=== PATIENT | female | born 1990 | race Caucasian/White ===

== ENCOUNTER 2018-02-13 23:17 | Emergency (ER) | payer SELFPAY ==
--- NOTE | 2018-02-14 00:07 | EDPHYS ---
Physician Documentation [facility] Name: Suraj Fuentes Age: 27 yrs Sex: Female : 1990 Arrival Date: 02/13/2018 Time: 23:19 Bed 17 Private MD: ED Physician Doug Mendiola HPI: 02/14 00:33 This 27 yrs old Female presents to ER via Ambulatory with complaints of snw Abdominal Pain, Nausea/Vomiting. 00:33 The patient presents with abdominal pain. Onset: The symptoms/episode began/occurred snw suddenly. The symptoms do not radiate. Associated signs and symptoms: Pertinent positives: sore nipples, missed menstrual cycle, just had control removed.. The symptoms are described as crampy. Modifying factors: The symptoms are alleviated by nothing. Severity of pain: At its worst the pain was mild moderate. The patient has experienced similar episodes in the past. It is unknown whether or not the patient has recently seen a physician. 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 - Social history:: Smoking status: Patient/guardian denies using tobacco, Patient uses alcohol, occasionally. Patient/guardian denies using street drugs. ROS: 02/14 00:31 Constitutional: Negative for fever, chills, and weight loss, Eyes: Negative for injury, snw pain, redness, and discharge, ENT: Negative for injury, pain, and discharge, Neck: Negative for injury, pain, and swelling, Cardiovascular: Negative for chest pain, palpitations, and edema, Respiratory: Negative for shortness of breath, cough, wheezing, and pleuritic chest pain, Back: Negative for injury and pain, : Negative for injury, bleeding, discharge, and swelling, MS/Extremity: Negative for injury and deformity, Skin: Negative for injury, rash, and discoloration, Neuro: Negative for headache, weakness, numbness, tingling, and seizure. Abdomen/GI: Positive for nausea, vomiting, abdominal cramps, sore nipples. Exam: 00:30 Constitutional: This is a well developed, well nourished patient who is awake, alert, snw and in no acute distress. Head/Face: Normocephalic, atraumatic. Eyes: Pupils equal round and reactive to light, extra-ocular motions intact. Lids and lashes normal. Conjunctiva and sclera are non-icteric and not injected. Cornea within normal limits. Periorbital areas with no swelling, redness, or edema. ENT: Nares patent. No nasal discharge, no septal abnormalities noted. Tympanic membranes are normal and external auditory canals are clear. Oropharynx with no redness, swelling, or masses, exudates, or evidence of obstruction, uvula midline. Mucous membranes moist. Neck: Trachea midline, no thyromegaly or masses palpated, and no cervical lymphadenopathy. Supple, full range of motion without nuchal rigidity, or vertebral point tenderness. No Meningismus. Chest/axilla: Normal chest wall appearance and motion. Nontender with no deformity. No lesions are appreciated. Cardiovascular: Regular rate and rhythm with a normal S1 and S2. No gallops, murmurs, or rubs. Normal PMI, no JVD. No pulse deficits. Respiratory: Lungs have equal breath sounds bilaterally, clear to auscultation and percussion. No rales, rhonchi or wheezes noted. No increased work of breathing, no retractions or nasal flaring. Abdomen/GI: Soft, non-tender, with normal bowel sounds. No distension or tympany. No guarding or rebound. No evidence of tenderness throughout. Back: No spinal tenderness. No costovertebral tenderness. Full range of motion. Skin: Warm, dry with normal turgor. Normal color with no rashes, no lesions, and no evidence of cellulitis. MS/ Extremity: Pulses equal, no cyanosis. Neurovascular intact. Full, normal range of motion. Neuro: Awake and alert, GCS 15, oriented to person, place, time, and situation. Cranial nerves II-XII grossly intact. Motor strength 5/5 in all extremities. Sensory grossly intact. Cerebellar exam normal. Normal gait. Vital Signs: 02/13 23:52 BP 127 / 76; Pulse 73; Resp 18 S; Temp 97.5(O); Pulse Ox 99% on R/A; Weight 79.38 kg bb (R); Height 5 ft. 2 in. (157.48 cm) (R); Pain 7/10; 23:52 Body Mass Index 32.01 (79.38 kg, 157.48 cm) bb MDM: 23:44 Patient medically screened. snw 02/14 00:32 Data reviewed: vital signs, nurses notes. Data interpreted: Pulse oximetry: on room air snw is 99 %. Interpretation: normal. Counseling: I had a detailed discussion with the patient and/or guardian regarding: the historical points, exam findings, and any diagnostic results supporting the discharge/admit diagnosis, lab results, the need for outpatient follow up, to return to the emergency department if symptoms worsen or persist or if there are any questions or concerns that arise at home. 02/13 23:43 Order name: Urine Culture snw 02/13 23:43 Order name: Urine Microscopic Only snw 02/13 23:51 Order name: Urine Dipstick--Ancillary (enter results) [facility] 02/13 23:51 Order name: Urine --Ancillary (enter results) [facility] 02/14 00:16 Order name: Urine --Ancillary; Complete Time: 00:26 EDMS 02/14 00:16 Order name: Urine Dipstick-Ancillary; Complete Time: 00:26 EDMS 02/13 23:43 Order name: Urine Test (obtain specimen); Complete Time: 23:49 snw 02/13 23:43 Order name: Urine Dipstick-Ancillary (obtain specimen); Complete Time: 23:49 snw 02/14 00:29 Order name: Urine Microscopic Only; Complete Time: 00:30 EDMS Administered Medications: No medications were administered Disposition: 06:18 Co-signature as Attending Physician, Doug Mendiola MD. Disposition: 02/14/18 00:07 Discharged to Home. Impression: Person with feared health complaint in whom no diagnosis is made. - Condition is Stable. - Discharge Instructions: Nausea, Adult. - Prescriptions for Vitamin 27- 0.8 mg Oral Tablet - take 1 tablet by ORAL route once daily; 30 tablet. - Medication Reconciliation Form, Thank You Letter, Antibiotic Education, Prescription Opioid Use form. - Follow up: Private Physician; When: 2 - 3 days; Reason: Recheck today's complaints, Continuance of care, Re-evaluation by your physician. Follow up: Emergency Department; When: As needed; Reason: Worsening of condition. Signatures: Dispatcher [employer] Inocencia Zafar FNP-C VALET PARKING ATTENDANT-Csnw [facility] S[facility], RN RN Doug Brantley MD MD
--- NOTE | 2018-02-14 00:07 | ER ---
Nurse's Notes [facility] Name: Suraj Fuentes Age: 27 yrs Sex: Female : 1990 Arrival Date: 02/13/2018 Time: 23:19 Bed 17 Private MD: Diagnosis: Person with feared health complaint in whom no diagnosis is made Presentation: 02/13 23:31 Presenting complaint: Patient states: she is having some lower abdominal pain and bb vomited twice this morning she has been trying to get and has noticed she is having breast tenderness as well LMP was 01/18/2018. Transition of care: patient was not received from another setting of care. Onset of symptoms was February 13, 2018. Care prior to arrival: None. 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 - Social history:: Smoking status: Patient/guardian denies using tobacco, Patient uses alcohol, occasionally. Patient/guardian denies using street drugs. Screenin:40 Abuse screen: Denies threats or abuse. Nutritional screening: No deficits noted. bb Tuberculosis screening: No symptoms or risk factors identified. Fall Risk None identified. Assessment: 23:40 General: Appears in no apparent distress. Behavior is calm, cooperative. Pain: bb Complains of pain in abdomen Pain currently is 7 out of 10 on a pain scale. Neuro: Level of Consciousness is awake, alert, obeys commands, Oriented to person, place, time, situation. Respiratory: No deficits noted. GI: Abdomen is round Bowel sounds present X 4 quads. Abd is soft X 4 quads Reports upper abdominal pain, nausea, vomiting. Derm: Skin is pink, warm \T\ dry. Musculoskeletal: Circulation, motion, and sensation intact. 02/14 00:33 Reassessment: No changes from previously documented assessment. pt verbalized bb understanding of and agrees to plan of care discharge instructions given pt ambulated with steady gait to exit accompanied by spouse. 00:34 Reassessment: Patient appears in no apparent distress at this time. Patient and/or jd3 family updated on plan of care and expected duration. Pain level reassessed. Patient is alert, oriented x 3, equal unlabored respirations, skin warm/dry/pink. pt reported understanding of discharge instructions, even and steady gait upon discharge. Vital Signs: 02/13 23:52 BP 127 / 76; Pulse 73; Resp 18 S; Temp 97.5(O); Pulse Ox 99% on R/A; Weight 79.38 kg bb (R); Height 5 ft. 2 in. (157.48 cm) (R); Pain 7/10; 23:52 Body Mass Index 32.01 (79.38 kg, 157.48 cm) bb ED Course: 23:19 Patient arrived in ED. am2 23:40 Patient has correct armband on for positive identification. Bed in low position. Call bb light in reach. Pulse ox on. NIBP on. 23:40 No provider procedures requiring assistance completed. Patient did not have IV access bb during this emergency room visit. 23:43 Inocencia Salamanca [facility] snw 23:43 Doug Mendiola MD is Attending Physician. snw 23:51 Triage completed. bb 23:52 Arm band placed on Patient placed in an exam room, on a stretcher, on pulse oximetry. bb 02/14 00:33 Eladio Rivas, RN is Primary Nurse. jd3 Administered Medications: No medications were administered Outcome: 00:07 Discharge ordered by . snw 00:34 Discharged to home ambulatory, with family. jd3 00:34 Condition: stable 00:34 Discharge instructions given to patient, friend, Instructed on discharge instructions, follow up and referral plans. medication usage, Demonstrated understanding of instructions, follow-up care, medications, Prescriptions given X 1. 00:34 Discharged to home ambulatory, with family. bb 00:34 Condition: stable 00:34 Discharge instructions given to patient, Instructed on discharge instructions, follow up and referral plans. medication usage, Demonstrated understanding of instructions, follow-up care, medications, Prescriptions given X 1, pt states she will follow up with her physician in [facility]. 00:35 Patient left the ED. bb Signatures: Inocencia Salamanca FNP-C COMPRESSOR REPAIRER-Csnw [facility], RN RN bb Sharlene Mello amEladio Souza, RN RN jd3
[2018-02-14 00:16] LABS: Urine Blood NEGATIVE (NEG); Urine Glucose NEGATIVE (NEG); Urine Protein NEGATIVE (NEG); Urine Specific Gravity 1.015 (1.005-1.030); Urine pH 7.5 (5.0-7.0)
[2018-02-14 00:28] LABS: Urine Bacteria <20 /HPF (<20); Urine Culture Reflex Order NOT NEEDED; Urine RBC NONE SEEN /HPF (NONE SEEN)
[2018-02-14 00:39] VITALS: BP 127/76; TEMP 97.5; O2SAT 99
== END 2018-02-14 00:35 | disposition home or self-care (01) ==
LOC: ER 23:17
DX: Z71.1 Person with feared health complaint in whom no diagnosis is made (principal); Z88.6 Allergy status to analgesic agent; Z91.018 Allergy to other foods
CPT/HCPCS: 81003; 81015; 81025; 87086; 87088; 99283

== ENCOUNTER 2018-03-29 23:38 | Emergency (ER) | payer SELFPAY ==
[2018-03-30] MEDS ORDERED: DICYCLOMINE HCL 10 MG CAP ONE (00:51)
[2018-03-30] MEDS ORDERED: ONDANSETRON 4 MG/2 ML VIAL ONE (00:52)
[2018-03-30 00:53] LABS: Absolute Monocytes 0.4 K/uL (0.1-1.3); Absolute Neutrophil 8.9 K/uL (1.8-8.0); Basophils % 0.2 % (0-1.3); Eosinophils % 0.3 % (0-4.4); Hematocrit 43.5 % (36.0-45.0); Lymphocytes % 9.5 % (15.3-44.8); MCH 30.4 pg (27.0-35.0); MCV 87.2 fL (80-100); MPV 8.1 fL (7.6-11.3); Monocytes % 3.7 % (3.3-12.3); RBC Red Blood Cell Count 4.99 M/uL (3.86-4.86)
[2018-03-30 01:03] LABS: BUN Blood Urea Nitrogen 16 mg/dL (6-20); Bicarbonate 25 mEq/L (21-31); Glucose Level 117 mg/dL (65-120); Potassium 3.7 mEq/L (3.6-5.0); Sodium Level 140 mEq/L (135-145)
--- NOTE | 2018-03-30 01:35 | ER ---
Nurse's Notes [facility] Name: Suraj Fuentes Age: 27 yrs Sex: Female : 1990 Arrival Date: 03/29/2018 Time: 23:43 Bed 20 Private MD: Diagnosis: Dysmenorrhea, unspecified Presentation: 03/29 23:59 Presenting complaint: Patient states: that this am she woke up with blood all over her underclothes. She is now having lower abd pain and cramping, nausea and vomiting. Continues to have vaginal bleeding. Transition of care: patient was not received from another setting of care. Onset of symptoms was March 30, 2018. Initial Sepsis Screen:. Care prior to arrival: None. 23:59 Method Of Arrival: Ambulatory 23:59 Acuity: SHAW 3 03/30 00:44 Initial Sepsis Screen: Does the patient meet any 2 criteria? No. Patient's initial jd3 sepsis screen is negative. Does the patient have a suspected source of infection? No. Patient's initial sepsis screen is negative. 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 - Social history:: Smoking status: Patient/guardian denies using tobacco. Screenin:43 Abuse screen: Denies threats or abuse. Nutritional screening: No deficits noted. jd3 Tuberculosis screening: No symptoms or risk factors identified. Fall Risk IV access (20 points). Mental Status- Oriented to own ability (0 pts). Total Chaidez Fall Scale indicates No Risk (0-24 pts). Assessment: 00:30 General: Appears in no apparent distress. uncomfortable, Behavior is calm, cooperative, jd3 appropriate for age. Pain: Complains of pain in suprapubic area Quality of pain is described as aching. Neuro: Level of Consciousness is awake, alert, obeys commands, Oriented to person, place, time, situation. Cardiovascular: Heart tones S1 S2 present Capillary refill < 3 seconds Patient's skin is warm and dry. Respiratory: Airway is patent Respiratory effort is even, unlabored, Respiratory pattern is regular, symmetrical, Breath sounds are clear bilaterally. GI: Abdomen is round Bowel sounds present X 4 quads. Abd is soft and non tender X 4 quads. Reports nausea, vomiting. : pt reports vaginal bleeding Reports vaginal bleeding that is heavy flow. EENT: No signs and/or symptoms were reported regarding the EENT system. Derm: Skin is intact, Skin is dry, Skin is normal, Skin temperature is warm. Musculoskeletal: Circulation, motion, and sensation intact. Range of motion: intact in all extremities. 01:06 Reassessment: Patient appears in no apparent distress at this time. No changes from [facility] previously documented assessment. Patient and/or family updated on plan of care and expected duration. Pain level reassessed. Patient is alert, oriented x 3, equal unlabored respirations, skin warm/dry/pink. 01:32 Reassessment: Patient appears in no apparent distress at this time. Patient and/or jd3 family updated on plan of care and expected duration. Pain level reassessed. Patient is alert, oriented x 3, equal unlabored respirations, skin warm/dry/pink. 01:50 Reassessment: Patient appears in no apparent distress at this time. Patient and/or jd3 family updated on plan of care and expected duration. Pain level reassessed. Patient is alert, oriented x 3, equal unlabored respirations, skin warm/dry/pink. pt reported understanding of discharge instructions, even and steady gait upon discharge. Vital Signs: 00:01 BP 123 / 82; Pulse 80; Resp 18; Temp 98.5(O); Pulse Ox 98% on R/A; Weight 77.11 kg (R); Height 5 ft. 2 in. (157.48 cm) (R); Pain 9/10; 01:05 BP 116 / 69; Pulse 67; Resp 18 S; Pulse Ox 97% on R/A; jd3 01:32 BP 116 / 69; Pulse 74; Resp 18 S; Pulse Ox 97% on R/A; jd3 00:01 Body Mass Index 31.09 (77.11 kg, 157.48 cm) ED Course: 03/29 23:43 Patient arrived in ED. do 23:48 Inocencia Salamanca [facility]C [facility] snw 23:48 Corbin Gross MD is Attending Physician. snw 03/30 00:00 Triage completed. fc 00:03 Arm band placed on Patient placed in an exam room, on a stretcher. 00:24 Eladio Rivas, RN is Primary Nurse. jd3 00:35 Inserted saline lock: 20 gauge in right antecubital area, using aseptic technique. jd3 Blood collected. 00:44 Patient has correct armband on for positive identification. Bed in low position. Call jd3 light in reach. Side rails up X2. Adult w/ patient. 01:49 No provider procedures requiring assistance completed. IV discontinued, intact, jd3 bleeding controlled, No redness/swelling at site. Pressure dressing applied. Administered Medications: 00:57 Drug: Zofran 4 mg Route: IVP; Site: right antecubital; jd3 01:51 Follow up: Response: No adverse reaction; Marked relief of symptoms jd3 00:58 Drug: Bentyl 20 mg Route: PO; jd3 01:51 Follow up: Response: No adverse reaction jd3 Outcome: 01:35 Discharge ordered by . snw 01:50 Discharged to home ambulatory, with family. jd3 01:50 Condition: stable 01:50 Discharge instructions given to patient, family, Instructed on discharge instructions, follow up and referral plans. medication usage, Demonstrated understanding of instructions, follow-up care, medications, Prescriptions given X 1. 01:51 Patient left the ED. jd3 Signatures: Inocencia Salamanca, RADIATOR REPAIRER-C RADIATOR REPAIRER-Csnw Gilma Brown RN RN Luly Cota Jonathon, RN RN jd3
--- NOTE | 2018-03-30 01:36 | EDPHYS ---
Physician Documentation [facility] Name: Suraj Fuentes Age: 27 yrs Sex: Female : 1990 Arrival Date: 03/29/2018 Time: 23:43 Bed 20 Private MD: ED Physician Corbin Gross HPI: 03/30 00:49 This 27 yrs old Female presents to ER via Ambulatory with complaints of snw Vaginal Bleeding, Abdominal Pain, Vomiting. 00:49 The patient presents with vaginal bleeding that is moderate, heavy. Onset: The snw symptoms/episode began/occurred last night. Modifying factors: The symptoms are alleviated by nothing. Associated signs and symptoms: Pertinent positives: cramping, vaginal bleeding. Severity of symptoms: At their worst the symptoms were moderate. The patient has not experienced similar symptoms in the past. The patient has not recently seen a physician. pt states she has regular menses but then states she skipped last month. 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 - Social history:: Smoking status: Patient/guardian denies using tobacco. ROS: 00:46 Constitutional: Negative for fever, chills, and weight loss, Eyes: Negative for injury, snw pain, redness, and discharge, ENT: Negative for injury, pain, and discharge, Neck: Negative for injury, pain, and swelling, Cardiovascular: Negative for chest pain, palpitations, and edema, Respiratory: Negative for shortness of breath, cough, wheezing, and pleuritic chest pain, Abdomen/GI: Positive for abdominal pain, nausea, denies vomiting, diarrhea, and constipation, : Negative for injury, bleeding, discharge, and swelling, MS/Extremity: Negative for injury and deformity, Skin: Negative for injury, rash, and discoloration, Neuro: Negative for headache, weakness, numbness, tingling, and seizure. 00:46 Back: Positive for radiated pain. Exam: 00:45 Constitutional: This is a well developed, well nourished patient who is awake, alert, snw and in no acute distress. Head/Face: Normocephalic, atraumatic. Eyes: Pupils equal round and reactive to light, extra-ocular motions intact. Lids and lashes normal. Conjunctiva and sclera are non-icteric and not injected. Cornea within normal limits. Periorbital areas with no swelling, redness, or edema. ENT: Nares patent. No nasal discharge, no septal abnormalities noted. Tympanic membranes are normal and external auditory canals are clear. Oropharynx with no redness, swelling, or masses, exudates, or evidence of obstruction, uvula midline. Mucous membranes moist. Neck: Trachea midline, no thyromegaly or masses palpated, and no cervical lymphadenopathy. Supple, full range of motion without nuchal rigidity, or vertebral point tenderness. No Meningismus. Chest/axilla: Normal chest wall appearance and motion. Nontender with no deformity. No lesions are appreciated. Cardiovascular: Regular rate and rhythm with a normal S1 and S2. No gallops, murmurs, or rubs. Normal PMI, no JVD. No pulse deficits. Respiratory: Lungs have equal breath sounds bilaterally, clear to auscultation and percussion. No rales, rhonchi or wheezes noted. No increased work of breathing, no retractions or nasal flaring. Skin: Warm, dry with normal turgor. Normal color with no rashes, no lesions, and no evidence of cellulitis. MS/ Extremity: Pulses equal, no cyanosis. Neurovascular intact. Full, normal range of motion. Neuro: Awake and alert, GCS 15, oriented to person, place, time, and situation. Cranial nerves II-XII grossly intact. Motor strength 5/5 in all extremities. Sensory grossly intact. Cerebellar exam normal. Normal gait. Psych: Awake, alert, with orientation to person, place and time. Behavior, mood, and affect are within normal limits. 00:45 Abdomen/GI: Inspection: obese Bowel sounds: hyperactive, Palpation: moderate abdominal tenderness, in all quadrants. 00:45 Back: Exam negative for acute changes. Vital Signs: 00:01 BP 123 / 82; Pulse 80; Resp 18; Temp 98.5(O); Pulse Ox 98% on R/A; Weight 77.11 kg (R); fc Height 5 ft. 2 in. (157.48 cm) (R); Pain 9/10; 01:05 BP 116 / 69; Pulse 67; Resp 18 S; Pulse Ox 97% on R/A; jd3 01:32 BP 116 / 69; Pulse 74; Resp 18 S; Pulse Ox 97% on R/A; jd3 00:01 Body Mass Index 31.09 (77.11 kg, 157.48 cm) fc MDM: 00:19 Patient medically screened. snw 01:38 Data reviewed: vital signs, nurses notes. Data interpreted: Pulse oximetry: on room air snw is 97 %. Interpretation: normal. Counseling: I had a detailed discussion with the patient and/or guardian regarding: the historical points, exam findings, and any diagnostic results supporting the discharge/admit diagnosis, the need for outpatient follow up, to return to the emergency department if symptoms worsen or persist or if there are any questions or concerns that arise at home. Special discussion: Based on the patient's Hx, exam, and Dx evaluation, there is no indication for emergent surgery or inpatient Tx. It is understood by the patient/guardian that if the Sx's persist or worsen they need to return immediately for re-evaluation. Based on the history and exam findings, there is no indication for further emergent testing or inpatient evaluation. I discussed with the patient/guardian the need to see the OB Gyne specialist for further evaluation of the symptoms. 03/30 00:19 Order name: Abo/rh Typing snw 03/30 00:19 Order name: Basic Metabolic Panel; Complete Time: 01:04 snw 03/30 00:19 Order name: CBC with Diff; Complete Time: 00:55 snw 03/30 00:19 Order name: IV Saline Lock; Complete Time: 00:40 snw 03/30 00:19 Order name: Labs collected and sent; Complete Time: 00:40 snw 03/30 00:19 Order name: NPO; Complete Time: 00:40 snw Administered Medications: 00:57 Drug: Zofran 4 mg Route: IVP; Site: right antecubital; jd3 01:51 Follow up: Response: No adverse reaction; Marked relief of symptoms jd3 00:58 Drug: Bentyl 20 mg Route: PO; jd3 01:51 Follow up: Response: No adverse reaction jd3 Disposition: 05:22 Co-signature as Attending Physician, Corbin Gross MD. pkluis carlos Disposition: 03/30/18 01:35 Discharged to Home. Impression: Dysmenorrhea, unspecified. - Condition is Stable. - Discharge Instructions: Dysmenorrhea, Menorrhagia. - Prescriptions for Zofran 4 mg Oral Tablet - take 1 tablet by ORAL route every 6 hours As needed; 20 tablet. - Medication Reconciliation Form, Thank You Letter, Antibiotic Education, Prescription Opioid Use form. - Follow up: Private Physician; When: 2 - 3 days; Reason: Recheck today's complaints, Continuance of care, Re-evaluation by your physician. Follow up: Emergency Department; When: As needed; Reason: Worsening of condition. Signatures: Dispatcher [employer] EDMS Corbin Gross MD MD pkInocencia Merrill, ELIZ-C ACID PATROLLER-Magdalenow Gilma Brown, RN RN Eladio Calixto RN RN jd3 Corrections: (The following items were deleted from the chart) 01:51 01:35 03/30/2018 01:35 Discharged to Home. Impression: Dysmenorrhea, unspecified. jd3 Condition is Stable. Forms are Medication Reconciliation Form, Thank You Letter, Antibiotic Education, Prescription Opioid Use. Follow up: Private Physician; When: 2 - 3 days; Reason: Recheck today's complaints, Continuance of care, Re-evaluation by your physician. Follow up: Emergency Department; When: As needed; Reason: Worsening of condition. snw
[2018-03-30 01:57] VITALS: TEMP 98.5
[2018-03-30 01:58] VITALS: BP 116/69; O2SAT 97
== END 2018-03-30 01:51 | disposition home or self-care (01) ==
LOC: ER 23:38
DX: N94.6 Dysmenorrhea, unspecified (principal); Z88.6 Allergy status to analgesic agent; Z91.018 Allergy to other foods
CPT/HCPCS: 36415; 80048; 85025; 86900; 86901; 96374; 99284; J2405

== ENCOUNTER 2018-04-08 22:46 | Emergency (ER) | payer SELFPAY ==
[2018-04-08] MEDS ORDERED: SUCRALFATE 1 GM TABLET ONE (23:56)
[2018-04-08] MEDS ORDERED: SUCRALFATE 1GM/10ML UCUP ONE (23:57)
--- NOTE | 2018-04-09 00:24 | ER ---
Nurse's Notes [facility] Name: Suraj Fuentes Age: 27 yrs Sex: Female : 1990 Arrival Date: 04/08/2018 Time: 22:51 Bed 7 Private MD: Diagnosis: Acute anal fissure Presentation: 04/08 23:06 Presenting complaint: Patient states: generalized abd pain since 0300 this am and this aa1 evening when she wiped after having a BM there was bright red blood on the toilet paper. Transition of care: patient was not received from another setting of care. Onset of symptoms was April 08, 2018 at 03:00. Initial Sepsis Screen: Does the patient meet any 2 criteria? No. Patient's initial sepsis screen is negative. Does the patient have a suspected source of infection? Yes: Acute abdominal pain. Care prior to arrival: None. 23:06 Method Of Arrival: Ambulatory aa1 23:06 Acuity: SHAW 3 aa1 Historical: - Allergies: 23:09 Ibuprofen; aa1 23:09 ORANGES; aa1 - Home Meds: 23:09 None [Active]; aa1 - PMHx: 23:09 None; aa1 - PSHx: 23:09 Appendectomy; aa1 - Immunization history:: Adult Immunizations unknown. - Social history:: Smoking status: Patient/guardian denies using tobacco. Screenin:10 Abuse screen: Denies threats or abuse. Denies injuries from another. Nutritional aa1 screening: No deficits noted. Tuberculosis screening: No symptoms or risk factors identified. Fall Risk None identified. Assessment: 23:10 General: Appears in no apparent distress. comfortable, Behavior is calm, cooperative, aa1 appropriate for age. Pain: Complains of pain in abdomen Quality of pain is described as crampy. Neuro: Level of Consciousness is awake, alert, obeys commands, Oriented to person, place, time, situation, Moves all extremities. Full function Gait is steady. Cardiovascular: Heart tones S1 S2 present Rhythm is regular. Respiratory: Airway is patent Respiratory effort is even, unlabored, Respiratory pattern is regular, symmetrical. GI: Abdomen is non-distended, Bowel sounds present X 4 quads. Abd is soft and non tender X 4 quads. Reports cramping, rectal bleeding. : No signs and/or symptoms were reported regarding the genitourinary system. EENT: No signs and/or symptoms were reported regarding the EENT system. Derm: Skin is intact, is healthy with good turgor, Skin is pink, warm \T\ dry. Musculoskeletal: Circulation, motion, and sensation intact. Capillary refill < 3 seconds, Range of motion: intact in all extremities. Vital Signs: 23:09 BP 136 / 83; Pulse 81; Resp 16; Temp 97.3; Pulse Ox 98% on R/A; Weight 77.11 kg; Height aa1 5 ft. 2 in. (157.48 cm); Pain 7/10; 23:09 Body Mass Index 31.09 (77.11 kg, 157.48 cm) aa1 ED Course: 22:51 Patient arrived in ED. 23:06 Megan Gonzalez RN is Primary Nurse. aa1 23:08 Triage completed. aa1 23:08 Doug Mendiola MD is Attending Physician. 23:09 Arm band placed on right wrist. Patient placed in an exam room, on a stretcher. aa1 23:10 Patient has correct armband on for positive identification. Placed in gown. Bed in low aa1 position. Call light in reach. Pulse ox on. NIBP on. 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 aa1 [id number] 00:23 Arlin Covarrubias MD is Referral Physician. 00:30 Patient did not have IV access during this emergency room visit. mg2 Administered Medications: 00:08 Drug: CarafATE 1 grams Route: PO; mg2 00:30 Follow up: Response: No adverse reaction; Pain is decreased mg2 Outcome: 00:23 Discharge ordered by . 00:29 Discharged to home ambulatory, with family. mg2 00:29 Condition: stable 00:29 Discharge instructions given to patient, family, Instructed on discharge instructions, follow up and referral plans. Demonstrated understanding of instructions, follow-up care, medications, Prescriptions given X 2. 00:30 Patient left the ED. mg2 Signatures: Megan Gonzalez, ALFONZO RN aa1 Barbie Mckeon Doug Mendiola MD MD Tien Juarez RN RN mg2
--- NOTE | 2018-04-09 00:24 | EDPHYS ---
Physician Documentation [facility] Name: Suraj Fuentes Age: 27 yrs Sex: Female : 1990 Arrival Date: 04/08/2018 Time: 22:51 Bed 7 Private MD: ED Physician Doug Mendiola HPI: 04/09 00:18 This 27 yrs old Female presents to ER via Ambulatory with complaints of gs Abdominal Pain, Bloody Stools. 00:18 The patient presents to the emergency department with rectal bleeding, a small amount, gs bright red blood with bowel movement, on toilet paper. Onset: The symptoms/episode began/occurred this morning. Abdominal pain: located in the epigastric area. Modifying factors: The symptoms are alleviated by nothing, the symptoms are aggravated by nothing. Associated signs and symptoms: Pertinent negatives: chest pain. Severity of symptoms: At their worst the symptoms were mild in the emergency department the symptoms have resolved. The patient has experienced similar episodes in the past, a few times. Historical: - Allergies: 04/08 23:09 Ibuprofen; aa1 23:09 ORANGES; aa1 - Home Meds: 23:09 None [Active]; aa1 - PMHx: 23:09 None; aa1 - PSHx: 23:09 Appendectomy; aa1 - Immunization history:: Adult Immunizations unknown. - Social history:: Smoking status: Patient/guardian denies using tobacco. ROS: 04/09 00:18 All other systems are negative. gs Exam: 00:18 Head/Face: Normocephalic, atraumatic. Eyes: Pupils equal round and reactive to light, gs extra-ocular motions intact. Lids and lashes normal. Conjunctiva and sclera are non-icteric and not injected. Cornea within normal limits. Periorbital areas with no swelling, redness, or edema. ENT: Nares patent. No nasal discharge, no septal abnormalities noted. Tympanic membranes are normal and external auditory canals are clear. Oropharynx with no redness, swelling, or masses, exudates, or evidence of obstruction, uvula midline. Mucous membranes moist. Neck: Trachea midline, no thyromegaly or masses palpated, and no cervical lymphadenopathy. Supple, full range of motion without nuchal rigidity, or vertebral point tenderness. No Meningismus. Chest/axilla: Normal chest wall appearance and motion. Nontender with no deformity. No lesions are appreciated. Cardiovascular: Regular rate and rhythm with a normal S1 and S2. No gallops, murmurs, or rubs. Normal PMI, no JVD. No pulse deficits. Respiratory: Lungs have equal breath sounds bilaterally, clear to auscultation and percussion. No rales, rhonchi or wheezes noted. No increased work of breathing, no retractions or nasal flaring. 00:18 Back: No spinal tenderness. No costovertebral tenderness. Full range of motion. Skin: Warm, dry with normal turgor. Normal color with no rashes, no lesions, and no evidence of cellulitis. MS/ Extremity: Pulses equal, no cyanosis. Neurovascular intact. Full, normal range of motion. Neuro: Awake and alert, GCS 15, oriented to person, place, time, and situation. Cranial nerves II-XII grossly intact. Motor strength 5/5 in all extremities. Sensory grossly intact. Cerebellar exam normal. Normal gait. 00:18 Constitutional: The patient appears alert, awake. 00:18 Abdomen/GI: Palpation: mild abdominal tenderness, in the epigastric area, rebound tenderness, is not appreciated. 00:18 Abdomen/GI: Rectal exam: the exam is chaperoned by the nurse, sentinel pile anal fissure with tenderness no bleeding currently. Vital Signs: 04/08 23:09 BP 136 / 83; Pulse 81; Resp 16; Temp 97.3; Pulse Ox 98% on R/A; Weight 77.11 kg; Height aa1 5 ft. 2 in. (157.48 cm); Pain 7/10; 23:09 Body Mass Index 31.09 (77.11 kg, 157.48 cm) aa1 MDM: 23:45 Patient medically screened. gs 04/09 00:18 Data reviewed: vital signs, nurses notes. Response to treatment: the patient's symptoms gs have markedly improved after treatment, and as a result, I will discharge patient. Administered Medications: 00:08 Drug: CarafATE 1 grams Route: PO; mg2 00:30 Follow up: Response: No adverse reaction; Pain is decreased mg2 Disposition: 04/09/18 00:23 Discharged to Home. Impression: Acute anal fissure. - Condition is Stable. - Discharge Instructions: Anal Fissure, Adult. - Prescriptions for Colace 100 mg Oral Tablet - take 1 tablet by ORAL route every 12 hours; 14 tablet. Pepcid 20 mg Oral Tablet - take 1 tablet by ORAL route once daily; 20 tablet. - Medication Reconciliation Form, Thank You Letter, Antibiotic Education, Prescription Opioid Use form. - Follow up: Private Physician; When: 2 - 3 days; Reason: Re-evaluation by your physician. Follow up: Arlin Covarrubias MD; When: 2 - 3 days; Reason: Re-evaluation by your physician. Signatures: Megan Gonzalez RN RN aa1 Doug Mendiola MD MD gs Tien Juarez RN RN mg2 Corrections: (The following items were deleted from the chart) 00:30 00:23 04/09/2018 00:23 Discharged to Home. Impression: Acute anal fissure. Condition is mg2 Stable. Forms are Medication Reconciliation Form, Thank You Letter, Antibiotic Education, Prescription Opioid Use. Follow up: Private Physician; When: 2 - 3 days; Reason: Re-evaluation by your physician. Follow up: Arlin Covarrubias; When: 2 - 3 days; Reason: Re-evaluation by your physician. gs
[2018-04-09 01:05] VITALS: BP 136/83; TEMP 97.3; O2SAT 98
== END 2018-04-09 00:30 | disposition home or self-care (01) ==
LOC: ER 22:46
DX: K60.2 Anal fissure, unspecified (principal); Z88.6 Allergy status to analgesic agent; Z91.018 Allergy to other foods
CPT/HCPCS: 99284

== ENCOUNTER 2018-05-15 12:46 | Emergency (ER) | payer OTHER, SELFPAY ==
[2018-05-15] MEDS ORDERED: NA CHLORIDE 0.9% 1,000 ML ONE (13:19)
[2018-05-15] MEDS ORDERED: ONDANSETRON 4 MG/2 ML VIAL ONE (13:19)
[2018-05-15 13:39] LABS: Urine Blood NEGATIVE (NEG); Urine Glucose NEGATIVE (NEG); Urine Protein NEGATIVE (NEG); Urine pH 8.5 (5.0-7.0)
[2018-05-15 13:44] LABS: Absolute Lymphocytes (CBC) 1.6 K/uL (0.7-4.9); Absolute Monocytes 0.4 K/uL (0.1-1.3); Absolute Neutrophil 6.7 K/uL (1.8-8.0); Basophils % 0.3 % (0-1.3); Eosinophils % 0.2 % (0-4.4); Lymphocytes % 18.2 % (15.3-44.8); MCH 30.3 pg (27.0-35.0); MCV 88.9 fL (80-100); MPV 8.5 fL (7.6-11.3); Monocytes % 4.5 % (3.3-12.3); RBC Red Blood Cell Count 4.95 M/uL (3.86-4.86)
[2018-05-15 13:55] LABS: Urine Bacteria <20 /HPF (<20); Urine Culture Reflex Order NOT NEEDED; Urine RBC <5 /HPF (NONE SEEN)
[2018-05-15 14:05] LABS: ALT/SGPT 34 U/L (12-78); AST/SGOT 19 U/L (15-37); Albumin 3.9 g/dL (3.4-5.0); Alkaline Phosphatase 57 U/L (45-117); BUN Blood Urea Nitrogen 9 mg/dL (7-18); Bicarbonate 25 mmol/L (21-32); Bilirubin Direct 0.1 mg/dL (0-0.2); Bilirubin Total 0.5 mg/dL (0.2-1.0); Glucose Level 90 mg/dL (74-106); Lipase 83 U/L (73-393); Potassium 3.7 mmol/L (3.5-5.1); Protein, Total 7.3 g/dL (6.4-8.2); Sodium Level 138 mmol/L (136-145)
--- NOTE | 2018-05-15 14:42 | EDPHYS ---
Physician Documentation [facility] Name: Suraj Fuentes Age: 27 yrs Sex: Female : 1990 Arrival Date: 05/15/2018 Time: 12:48 Bed 23 Private MD: ED Physician Zane Herring HPI: 05/15 13:59 This 27 yrs old Female presents to ER via Wheelchair with complaints of abd rn pain, vomiting. 13:59 The patient presents with abdominal pain in the lower abdomen. Onset: The rn symptoms/episode began/occurred 1 week(s) ago. The symptoms do not radiate. Severity of pain: At its worst the pain was mild in the emergency department the pain is unchanged. The patient has experienced similar episodes in the past. The patient has not recently seen a physician. REports irregular period, unsure if last one 1-2 months ago, trying to get , + vomiting, no diarrhea. NO fever. NO discharge or bleeding. . 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 - Social history:: Smoking status: unknown. - Ebola Screening: : Patient negative for fever greater than or equal to 101.5 degrees Fahrenheit, and additional compatible Ebola Virus Disease symptoms Patient denies exposure to infectious person Patient denies travel to an Ebola-affected area in the 21 days before illness onset No symptoms or risks identified at this time. - Family history:: not pertinent. - Hospitalizations: : No recent hospitalization is reported. ROS: 13:59 Constitutional: Negative for fever, chills, and weight loss, Eyes: Negative for injury, rn pain, redness, and discharge, Neck: Negative for injury, pain, and swelling, Cardiovascular: Negative for chest pain, palpitations, and edema, Respiratory: Negative for shortness of breath, cough, wheezing, and pleuritic chest pain, Abdomen/GI: + abd pain and vomiting MS/Extremity: Negative for injury and deformity, Skin: Negative for injury, rash, and discoloration, Neuro: Negative for headache, weakness, numbness, tingling, and seizure. Exam: 13:59 Constitutional: This is a well developed, well nourished patient who is awake, alert, rn and in no acute distress. Head/Face: Normocephalic, atraumatic. Cardiovascular: Regular rate and rhythm with a normal S1 and S2. No gallops, murmurs, or rubs. Normal PMI, no JVD. No pulse deficits. Respiratory: Lungs have equal breath sounds bilaterally, clear to auscultation and percussion. No rales, rhonchi or wheezes noted. No increased work of breathing, no retractions or nasal flaring. Abdomen/GI: soft, mild lower abd tenderness, bilateral and suprapubic, no peritoneal signs Skin: Warm, dry with normal turgor. Normal color with no rashes, no lesions, and no evidence of cellulitis. MS/ Extremity: Pulses equal, no cyanosis. Neurovascular intact. Full, normal range of motion. Equal circumference. Neuro: Awake and alert, GCS 15, oriented to person, place, time, and situation. Cranial nerves II-XII grossly intact. Motor strength 5/5 in all extremities. Sensory grossly intact. Cerebellar exam normal. Normal gait. Vital Signs: 12:56 BP 112 / 59; Pulse 87; Resp 17 S; Temp 97.8; Pulse Ox 100% on R/A; Pain 6/10; sg 13:43 BP 112 / 60; Pulse 85; Resp 17; Pulse Ox 99% ; kr2 14:56 BP 115 / 64; Pulse 88; Resp 16; Pulse Ox 100% ; kr2 MDM: 12:55 Patient medically screened. rn 14:38 Differential diagnosis: urinary tract infection, . rn 14:40 Data reviewed: vital signs, nurses notes, lab test result(s), radiologic studies, rn ultrasound, and as a result, I will discharge patient. Counseling: I had a detailed discussion with the patient and/or guardian regarding: the historical points, exam findings, and any diagnostic results supporting the discharge/admit diagnosis, lab results, radiology results, the need for outpatient follow up, to return to the emergency department if symptoms worsen or persist or if there are any questions or concerns that arise at home. Response to treatment: the patient's symptoms have markedly improved after treatment, and as a result, I will discharge patient. Special discussion: I discussed with the patient/guardian in detail that at this point there is no indication for admission to the hospital. It is understood, however, that if the symptoms persist or worsen the patient needs to return immediately for re-evaluation. Based on the history and exam findings, there is no indication for further emergent testing or inpatient evaluation. I discussed with the patient/guardian the need to see the OB Gyne specialist for further evaluation of the symptoms. 05/15 13:03 Order name: Basic Metabolic Panel; Complete Time: 14:25 rn 05/15 13:03 Order name: CBC with Diff; Complete Time: 14:25 rn 05/15 13:03 Order name: Creatinine for Radiology; Complete Time: 14:25 rn 05/15 13:03 Order name: Hepatic Function; Complete Time: 14:25 rn 05/15 13:03 Order name: Lipase; Complete Time: 14:25 rn 05/15 13:03 Order name: Urine Microscopic Only; Complete Time: 14:25 rn 05/15 13:13 Order name: Abo/rh Typing; Complete Time: 14:25 rn 05/15 13:13 Order name: HCG-Quantitative; Complete Time: 14:30 rn 05/15 13:18 Order name: Urine Dipstick--Ancillary (enter results); Complete Time: 14:25 ag 05/15 13:18 Order name: Urine --Ancillary (enter results); Complete Time: 14:25 ag 05/15 14:10 Order name: TRANSVAG OB EDMS 05/15 13:03 Order name: Urine Test (obtain specimen); Complete Time: 13:38 rn 05/15 13:03 Order name: IV Saline Lock; Complete Time: 13:38 rn 05/15 13:03 Order name: Labs collected and sent; Complete Time: 13:38 rn 05/15 13:03 Order name: Urine Dipstick-Ancillary (obtain specimen); Complete Time: 13:39 rn Administered Medications: 13:29 Drug: Zofran 4 mg Route: IVP; Site: left antecubital; kr2 13:45 Follow up: Response: No adverse reaction; Nausea is decreased kr2 13:30 Drug: NS 0.9% 1000 ml Route: IV; Rate: 1000 ml; Site: right antecubital; kr2 14:30 Follow up: Response: No adverse reaction; IV Status: Completed infusion kr2 Disposition: 05/15/18 14:41 Discharged to Home. Impression: Intrauterine , Unspecified ovarian cysts. - Condition is Stable. - Discharge Instructions: Abdominal Pain During , Ovarian Cyst, First Trimester of . - Medication Reconciliation Form, Thank You Letter, Antibiotic Education, Prescription Opioid Use form. - Follow up: Private Physician; When: As needed; Reason: Recheck today's complaints, Re-evaluation by your physician. - Problem is new. - Symptoms have improved. Signatures: Dispatcher [employer] EDMA Ted Cosby RN RN Zane Herring MD MD rn Reaves, Karey, RN RN kr2 Corrections: (The following items were deleted from the chart) 14:10 13:14 OB Limited+[id number] ordered. [facility] 14:57 14:41 05/15/2018 14:41 Discharged to Home. Impression: Intrauterine ; kr2 Unspecified ovarian cysts. Condition is Stable. Forms are Medication Reconciliation Form, Thank You Letter, Antibiotic Education, Prescription Opioid Use. Follow up: Private Physician; When: As needed; Reason: Recheck today's complaints, Re-evaluation by your physician. Problem is new. Symptoms have improved. rn
--- NOTE | 2018-05-15 14:42 | ER ---
Nurse's Notes [facility] Name: Suraj Fuentes Age: 27 yrs Sex: Female : 1990 Arrival Date: 05/15/2018 Time: 12:48 Bed 23 Private MD: Diagnosis: Intrauterine ;Unspecified ovarian cysts Presentation: 05/15 12:50 Presenting complaint: Patient states: general abd pain for about two days, vomiting sg multiple times, feeling weak today with chills. Transition of care: patient was not received from another setting of care. Onset of symptoms was May 15, 2018. Risk Assessment: Do you want to hurt yourself or someone else? Patient reports no desire to harm self or others. Care prior to arrival: None. 12:50 Method Of Arrival: Wheelchair sg 12:50 Acuity: SHAW 3 sg 13:06 Initial Sepsis Screen: Does the patient meet any 2 criteria? No. Patient's initial kr2 sepsis screen is negative. Does the patient have a suspected source of infection? No. Patient's initial sepsis screen is negative. 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 - Social history:: Smoking status: unknown. - Ebola Screening: : Patient negative for fever greater than or equal to 101.5 degrees Fahrenheit, and additional compatible Ebola Virus Disease symptoms Patient denies exposure to infectious person Patient denies travel to an Ebola-affected area in the 21 days before illness onset No symptoms or risks identified at this time. - Family history:: not pertinent. - Hospitalizations: : No recent hospitalization is reported. Screenin:05 Abuse screen: Denies threats or abuse. Denies injuries from another. Nutritional kr2 screening: No deficits noted. Tuberculosis screening: No symptoms or risk factors identified. Fall Risk None identified. Assessment: 13:03 General: Appears in no apparent distress. uncomfortable, well groomed, well developed, kr2 well nourished, Behavior is cooperative, anxious. Pain: Complains of pain in pelvis Pain currently is 10 out of 10 on a pain scale. Quality of pain is described as aching, crampy, sharp, Is continuous, Alleviated by rest, Aggravated by increased activity, repositioning. Neuro: Level of Consciousness is awake, alert, obeys commands, Oriented to person, place, time, situation. Cardiovascular: Capillary refill < 3 seconds in bilateral fingers Patient's skin is warm and dry. Respiratory: Airway is patent Respiratory effort is even, unlabored, Respiratory pattern is regular, symmetrical. GI: Abdomen is flat, non-distended, Reports lower abdominal pain, nausea, vomiting. : Denies burning with urination. EENT: Oral mucosa is moist. Derm: Skin is intact, is healthy with good turgor, Skin is pink, warm \T\ dry. Musculoskeletal: Circulation, motion, and sensation intact. 14:55 Reassessment: Patient appears in no apparent distress at this time. Patient and/or kr2 family updated on plan of care and expected duration. Pain level reassessed. Patient is alert, oriented x 3, equal unlabored respirations, skin warm/dry/pink. Patient states feeling better. Vital Signs: 12:56 BP 112 / 59; Pulse 87; Resp 17 S; Temp 97.8; Pulse Ox 100% on R/A; Pain 6/10; sg 13:43 BP 112 / 60; Pulse 85; Resp 17; Pulse Ox 99% ; kr2 14:56 BP 115 / 64; Pulse 88; Resp 16; Pulse Ox 100% ; kr2 ED Course: 12:48 Patient arrived in ED. sg 12:48 Arm band placed on. EKG completed in triage. Results shown to MD. sg 12:51 Triage completed. sg 12:55 Bushra Diaz, RN is Primary Nurse. kr2 12:55 Zane Herring MD is Attending Physician. rn 13:06 Patient has correct armband on for positive identification. Bed in low position. Call kr2 light in reach. Side rails up X 1. Adult w/ patient. Pulse ox on. NIBP on. Door closed. Warm blanket given. Head of bed elevated. 13:25 Inserted saline lock: 22 gauge in right antecubital area, using aseptic technique. kr2 Blood collected. 14:21 TRANSVAG OB In Process Unspecified. EDMS 14:56 No provider procedures requiring assistance completed. IV discontinued, intact, kr2 bleeding controlled, No redness/swelling at site. Pressure dressing applied. Administered Medications: 13:29 Drug: Zofran 4 mg Route: IVP; Site: left antecubital; kr2 13:45 Follow up: Response: No adverse reaction; Nausea is decreased kr2 13:30 Drug: NS 0.9% 1000 ml Route: IV; Rate: 1000 ml; Site: right antecubital; kr2 14:30 Follow up: Response: No adverse reaction; IV Status: Completed infusion kr2 Outcome: 14:41 Discharge ordered by . rn 14:56 Discharged to home ambulatory, with family. kr2 14:56 Condition: good 14:56 Discharge instructions given to patient, Instructed on discharge instructions, follow up and referral plans. Demonstrated understanding of instructions, follow-up care. 14:57 Patient left the ED. kr2 Signatures: Dispatcher [employer] EDTed Olsen RN RN sg Nieto, Roman, MD MD rn Reaves, Karey, RN RN kr2
--- NOTE | 2018-05-15 15:02 | RAD REPORT ---
EXAM DESCRIPTION: US - TRANSVAG OB - 05/15/2018 2:21 pm CLINICAL HISTORY: with abdominal pain COMPARISON: None FINDINGS: The uterus measures 9 x 5 x 6 centimeters. A 1 centimeter sac is present within the endome trium. A pole is not seen. A yolk sac is not visualized. The ovaries are normal in size and echotexture. No significant free fluid is seen. IMPRESSION: These findings most likely represent an intrauterine with gestational age 5 we eks 4 days DYLAN 01/11/2019. Pseudo gestational sac associated with an ectopic an incomplete also have a similar appearance. This all should be correlated clinically and with serial beta HCG levels. Followup endovaginal sonogr am in 1 week is recommended
[2018-05-15 15:22] VITALS: TEMP 97.8; O2SAT 100
[2018-05-15 15:48] VITALS: BP 115/64
== END 2018-05-15 14:57 | disposition home or self-care (01) ==
LOC: ER 12:46
DX: O34.81 Maternal care for other abnormalities of pelvic organs, first trimester (principal); N83.209 Unspecified ovarian cyst, unspecified side; Z88.8 Allergy status to other drugs, medicaments and biological substances; Z91.018 Allergy to other foods
CPT/HCPCS: 36415; 76813; 80048; 80076; 81003; 81015; 81025; 83690; 84702; 85025; 86900; 86901; 96361; 96374; 99284; J2405; J7030

== ENCOUNTER 2018-06-02 06:25 | Inpatient (IN) | payer OTHER, SELFPAY ==
[2018-06-02] MEDS ORDERED: DIPHENHYDRAMINE 50 MG/ML VIAL ONE (06:45)
[2018-06-02] MEDS ORDERED: ONDANSETRON 4 MG/2 ML VIAL ONE (06:45)
[2018-06-02] MEDS ORDERED: FAMOTIDINE 20 MG/2 ML VIAL IV ONE (06:46)
[2018-06-02] MEDS ORDERED: NA CHLORIDE 0.9% 1,000 ML ONE ×2 (06:46→08:33)
[2018-06-02 07:51] LABS: Absolute Lymphocytes (CBC) 2.1 K/uL (0.7-4.9); Absolute Monocytes 0.7 K/uL (0.1-1.3); Absolute Neutrophil 8.2 K/uL (1.8-8.0); Basophils % 0.3 % (0-1.3); Eosinophils % 0.6 % (0-4.4); Hematocrit 44.5 % (36.0-45.0); Lymphocytes % 19.1 % (15.3-44.8); MCH 30.8 pg (27.0-35.0); Monocytes % 6.1 % (3.3-12.3)
[2018-06-02 08:23] LABS: Blood Morphology Comment NOTED (NOT SEEN); Platelet Estimate ADEQ; Urine White Blood Cell Casts OK
[2018-06-02] MEDS ORDERED: PROMETHAZINE 25 MG/ML VIAL ONE (08:33)
--- NOTE | 2018-06-02 09:16 | RAD REPORT ---
EXAM DESCRIPTION: US - Transvaginal OB - 06/02/2018 8:07 am CLINICAL HISTORY: with abdominal pain COMPARISON: None. FINDINGS: The uterus measures 10 x 7 x 8 centimeters. A gestational sac is present within the endom etrium. Within this is a yolk sac and pole with a crown-rump length 1.3 centimeters. Cardiac ac tivity 171 beats per minute. Gestational sac appears unremarkable The ovaries are normal in size and echotexture. A 1.7 centimeter cystic structure abuts the right ova ry which may represent a small paraovarian cyst .No significant free fluid is seen. IMPRESSION: Single live intrauterine with an estimated gestational age 7 weeks 4 days DYLAN 01/15/2019
[2018-06-02 09:30] LABS: ALT/SGPT 18 U/L (12-78); AST/SGOT 16 U/L (15-37); Albumin 4.1 g/dL (3.4-5.0); Alkaline Phosphatase 58 U/L (45-117); Amylase Level 30 U/L (25-115); BUN Blood Urea Nitrogen 5 mg/dL (7-18); Bicarbonate 23 mmol/L (21-32); Bilirubin Direct 0.1 mg/dL (0-0.2); Bilirubin Total 0.7 mg/dL (0.2-1.0); Glucose Level 85 mg/dL (74-106); Lipase 67 U/L (73-393); Potassium 3.5 mmol/L (3.5-5.1); Protein, Total 7.4 g/dL (6.4-8.2); Sodium Level 143 mmol/L (136-145)
[2018-06-02] MEDS ORDERED: NA CHLORIDE 0.9% 500 ML ONE (09:50)
[2018-06-02] MEDS ORDERED: PROMETHAZINE 25 MG/SUPP PR ONE (09:50)
[2018-06-02 10:03] LABS: HCG, Quantitative 82740 mIU/mL (1-3)
[2018-06-02 10:28] LABS: Urine Bacteria <20 /HPF (<20); Urine Culture Reflex Order NOT NEEDED; Urine Mucus 1+ /HPF (NONE SEEN); Urine RBC <5 /HPF (NONE SEEN)
[2018-06-02 11:17] LABS: Urine Blood TRACE (NEG); Urine Glucose NEGATIVE (NEG); Urine Protein 1+ (NEG); Urine pH 6.5 (5.0-7.0)
--- NOTE | 2018-06-02 12:46 | ER ---
Nurse's Notes [facility] Name: Suraj Fuentes Age: 27 yrs Sex: Female : 1990 Arrival Date: 06/02/2018 Time: 06:32 Bed 17 Private MD: Diagnosis: Hyperemesis gravidarum with metabolic disturbance Presentation: 06/02 06:32 Presenting complaint: EMS states: "pt is 7 weeks and is having sharp abdominal jd3 pain below the umbilicus. She was seen 2 days ago in [place] and released with a dx of dehydration.". Transition of care: patient was not received from another setting of care. Onset of symptoms was June 02, 2018. Risk Assessment: Do you want to hurt yourself or someone else? Patient reports no desire to harm self or others. Initial Sepsis Screen: Does the patient meet any 2 criteria? RR > 20 per min. Yes Does the patient have a suspected source of infection? No. Patient's initial sepsis screen is negative. Care prior to arrival: None. 06:32 Method Of Arrival: EMS: [facility] jd3 06:32 Acuity: SHAW 3 jd3 INSTRUCTOR TRAFFIC SAFETY: 06:35 pt is currently jd3 06:57 3, Premature 2, Living 2, LMP 04/08/2018 cp Historical: - Allergies: 06:35 Ibuprofen; jd3 06:35 ORANGES; jd3 - Home Meds: 06:35 Phenergan Oral [Active]; tylenol [Active]; jd3 - PMHx: 06:35 None; jd3 - PSHx: 06:35 Appendectomy; jd3 - Immunization history:: Adult Immunizations up to date. - Social history:: Smoking status: Patient/guardian denies using tobacco. - Ebola Screening: : Patient negative for fever greater than or equal to 101.5 degrees Fahrenheit, and additional compatible Ebola Virus Disease symptoms. Screenin:40 Abuse screen: Denies threats or abuse. Nutritional screening: No deficits noted. jd3 Tuberculosis screening: No symptoms or risk factors identified. Fall Risk Ambulatory Aid- None/Bed Rest/Nurse Assist (0 pts). Gait- Normal/Bed Rest/Wheelchair (0 pts) Mental Status- Oriented to own ability (0 pts). Total Chaidez Fall Scale indicates No Risk (0-24 pts). Assessment: 06:37 General: Appears uncomfortable, Behavior is calm, cooperative, appropriate for age. jd3 Pain: Complains of pain in suprapubic area Pain does not radiate. Pain currently is 10 out of 10 on a pain scale. Quality of pain is described as sharp, Is continuous, Also complains of nausea. Neuro: Level of Consciousness is awake, alert, obeys commands, Oriented to person, place, time, situation. Cardiovascular: Heart tones S1 S2 present Capillary refill < 3 seconds Patient's skin is warm and dry. Respiratory: Airway is patent Respiratory effort is even, unlabored, Respiratory pattern is regular, symmetrical, Breath sounds are clear bilaterally. GI: Abdomen is round Bowel sounds present X 4 quads. Abd is soft X 4 quads Abdomen is tender to palpation in right lower quadrant and left lower quadrant Reports nausea, vomiting. : No signs and/or symptoms were reported regarding the genitourinary system. EENT: No signs and/or symptoms were reported regarding the EENT system. Derm: Skin is intact, Skin is dry, Skin is normal, Skin temperature is warm. Musculoskeletal: Circulation, motion, and sensation intact. Range of motion: intact in all extremities. 07:14 Reassessment: Patient appears in no apparent distress at this time. Pain: Complains of jl7 pain in suprapubic area Pain does not radiate. Pain currently is 7 out of 10 on a pain scale. Quality of pain is described as sharp, Is continuous. Neuro: Level of Consciousness is awake, alert, obeys commands. Cardiovascular: Patient's skin is warm and dry. Respiratory: Airway is patent Respiratory effort is even, unlabored, Respiratory pattern is regular, symmetrical. Derm: Skin is pink, warm \\T\\ dry. 08:00 Reassessment: Pt in US. jl7 08:35 Reassessment: Pt back from CT and reports CT personnel had her void to empty bladder jl7 and she cannot void again right now. Pt began to actively vomit, provider notified, see MAR for orders. 09:20 Reassessment: Reassessment: Pt laying in bed with eyes closed respirations even and jl7 unlabored, no signs of distress noted at this time. 09:40 Reassessment: Pt up to bathroom to provide urine sample. C/o continued nausea, dry jl7 heaving at this point, provider notified, see MAR for orders. Vital Signs: 06:35 BP 148 / 87; Pulse 80; Resp 22 S; Temp 98.6(A); Pulse Ox 98% on R/A; Weight 78.47 kg jd3 (R); Height 5 ft. 2 in. (157.48 cm) (R); Pain 10/10; 07:14 BP 112 / 58; Pulse 56; Resp 16 S; Pulse Ox 96% on R/A; Pain 7/10; jl7 07:45 BP 129 / 77; Pulse 79; Resp 16; Pulse Ox 99% ; jl7 09:38 BP 123 / 65; Pulse 58; Resp 16; Pulse Ox 99% ; jl7 11:00 BP 127 / 76; Pulse 76; Resp 14; Pulse Ox 99% ; jl7 13:00 BP 117 / 61; Pulse 81; Resp 16; Pulse Ox 99% ; jl7 06:35 Body Mass Index 31.64 (78.47 kg, 157.48 cm) jd3 ED Course: 06:32 Patient arrived in ED. jd3 06:33 Pancho Pryor PA is PHCP. cp 06:33 Pancho Greene MD is Attending Physician. cp 06:34 Triage completed. jd3 06:37 Arm band placed on. jd3 06:40 Eladio Rivas RN is Primary Nurse. jd3 06:40 Patient has correct armband on for positive identification. Bed in low position. Call j light in reach. Side rails up X2. 06:45 Initial lab(s) drawn, by me, sent to lab. Inserted saline lock: 22 gauge in right cc forearm, using aseptic technique. Blood collected. 07:06 Report given to Toni MEJÍA. jd3 08:07 US Transvaginal Ob In Process Unspecified. EDMS 08:31 Ultrasound completed. Patient tolerated well. Patient moved back from ultrasound. vitaly 09:51 Attending Physician role handed off by Pancho Greene MD kdr 09:51 Sharath Rod MD is Attending Physician. kdr 10:53 called [phone] Gross from [facility] with Roya FRY for patient eb consultation. 10:56 called and left message for Dr. Grajeda to call Roya FRY for patient consulation. eb 11:[address] Grajeda to Roya FRY. eb 12:45 Jamshid Grajeda MD is Hospitalizing Provider. cp 13:28 No provider procedures requiring assistance completed. Patient admitted, IV remains in jl7 place. intact, No redness/swelling at site. Administered Medications: 06:56 Drug: Zofran 4 mg Route: IVP; Site: right forearm; jd3 07:30 Follow up: Response: No adverse reaction; Nausea is decreased jl7 06:56 Drug: Benadryl 12.5 mg Route: IVP; Site: right forearm; jd3 07:30 Follow up: Response: No adverse reaction jl7 06:56 Drug: Pepcid 20 mg Route: IVP; Site: right forearm; jd3 07:30 Follow up: Response: No adverse reaction; Pain is decreased jl7 06:56 Drug: NS 0.9% 1000 ml Route: IV; Rate: 1 bolus; Site: right forearm; jd3 08:20 Follow up: Response: No adverse reaction; IV Status: Completed infusion jl7 08:43 Drug: NS 0.9% 1000 ml Route: IV; Rate: 1 bolus; Site: right forearm; jl7 09:54 Follow up: IV Status: Completed infusion jl7 08:44 Drug: Phenergan 25 mg Route: IVP; Site: right forearm; jl7 09:55 Follow up: Response: No adverse reaction; Nausea unchanged jl7 09:52 Drug: NS 0.9% 1000 ml Route: IV; Rate: 125 ml/hr; Site: right forearm; jl7 13:29 Follow up: IV Status: Infusion continued upon admission jl7 09:53 Drug: Phenergan Suppository 25 mg Route: WA; jl7 11:00 Follow up: Response: No adverse reaction; Nausea unchanged jl7 Outcome: 12:46 Decision to Hospitalize by Provider. cp 13:28 Admitted to L \\T\\ D, accompanied by tech, via wheelchair, room 270, with chart, Report jl7 called to ALFONZO Valentin 13:28 Condition: stable 13:28 Discharge instructions given to patient, Instructed on the need for admit, Demonstrated understanding of instructions. 13:37 Patient left the ED. jl7 Signatures: Dispatcher [employer] EDMS Sharath Rod MD MD kdr Christian, Chelsea cc Page, Corey, PA PA cp Dupre, Jacques jd Leal, Jahala, RN RN jl7 Eladio Rivas RN RN jd3 Dyan Bae Corrections: (The following items were deleted from the chart) 10:55 10:[address] Gross from [facility] with Roya FRY for patient eb consultation eb
--- NOTE | 2018-06-02 12:46 | EDPHYS ---
Physician Documentation [facility] Name: Suraj Fuentse Age: 27 yrs Sex: Female : 1990 Arrival Date: 06/02/2018 Time: 06:32 Bed 17 Private MD: ED Physician Sharath Rod HPI: 06/02 06:57 This 27 yrs old Female presents to ER via EMS with complaints of abdominal cp pain. 06:57 The patient presents to the emergency department with abdominal pain, of the lower cp abdomen, nausea and vomiting, that started yesterday, and is intermittent. 06:57 course: care: private OB physician, Leakage of Fluid: none cp appreciated. Previous pregnancies: in previous pregnancies patient has had vaginal delivery. Associated signs and symptoms: Pertinent positives: abdominal pain, vomiting, Pertinent negatives: fever, vaginal bleeding, vaginal discharge. The patient has been recently seen by a physician: in [place] ED, 2 day(s) ago, with similar presenting complaints, was given a prescription for an antiemetic. DIGITAL CONTROLS TECHNICAL OFFICER: 06:35 pt is currently jd3 06:57 3, Premature 2, Living 2, LMP 04/08/2018 cp Historical: - Allergies: 06:35 Ibuprofen; jd3 06:35 ORANGES; jd3 - Home Meds: 06:35 Phenergan Oral [Active]; tylenol [Active]; jd3 - PMHx: 06:35 None; jd3 - PSHx: 06:35 Appendectomy; jd3 - Immunization history:: Adult Immunizations up to date. - Social history:: Smoking status: Patient/guardian denies using tobacco. - Ebola Screening: : Patient negative for fever greater than or equal to 101.5 degrees Fahrenheit, and additional compatible Ebola Virus Disease symptoms. ROS: 06:58 Eyes: Negative for injury, pain, redness, and discharge. cp 06:58 Constitutional: Positive for poor PO intake, Negative for body aches, chills, fever. 06:58 ENT: Negative for drainage from ear(s), ear pain, sore throat, difficulty swallowing, difficulty handling secretions. 06:58 Cardiovascular: Negative for chest pain, palpitations. 06:58 Respiratory: Negative for cough, shortness of breath, wheezing. 06:58 Abdomen/GI: Positive for abdominal pain, nausea, vomiting, Negative for diarrhea, constipation, black/tarry stool, rectal bleeding. 06:58 Back: Negative for pain at rest, pain with movement, radiated pain. 06:58 : Negative for urinary symptoms, vaginal bleeding, vaginal discharge. 06:58 Skin: Negative for cellulitis, rash. 06:58 Neuro: Negative for altered mental status, headache, weakness. 06:58 All other systems are negative. Exam: 07:00 Head/Face: Normocephalic, atraumatic. cp 07:00 Constitutional: The patient appears alert, awake, non-toxic, well developed, well nourished, uncomfortable. 07:00 Eyes: Periorbital structures: appear normal, Conjunctiva: normal, no exudate, no cp injection, Sclera: no appreciated abnormality, Lids and lashes: appear normal, bilaterally. 07:00 ENT: External ear(s): are unremarkable, Nose: is normal, Mouth: Lips: moist, Oral mucosa: pink and intact, moist, Posterior pharynx: is normal, airway is patent, no erythema, no exudate. 07:00 Neck: External neck: is normal, ROM/movement: is normal, is supple, without pain, no range of motions limitations, Lymph nodes: no appreciated lymphadenopathy. 07:00 Chest/axilla: Inspection: normal, Palpation: is normal, no crepitus, no tenderness. 07:00 Cardiovascular: Rate: normal, Rhythm: regular. 07:00 Respiratory: the patient does not display signs of respiratory distress, Respirations: normal, no use of accessory muscles, no retractions, no splinting, no tachypnea, labored breathing, is not present, Breath sounds: are clear throughout, no decreased breath sounds, no stridor, no wheezing. 07:00 Abdomen/GI: Inspection: abdomen appears normal, Bowel sounds: active, all quadrants, Palpation: soft, in all quadrants, moderate abdominal tenderness, in the right lower quadrant and left lower quadrant, rebound tenderness, is not appreciated, voluntary guarding, is elicited in the right lower quadrant and left lower quadrant. 07:00 Back: CVA tenderness, is absent. 07:00 Skin: cellulitis, is not appreciated, no rash present. 07:00 Neuro: Orientation: to person, place \T\ time. Mentation: is normal, Cerebellar function: cp is grossly normal, Motor: moves all fours, strength is normal, Sensation: no obvious gross deficits. Vital Signs: 06:35 BP 148 / 87; Pulse 80; Resp 22 S; Temp 98.6(A); Pulse Ox 98% on R/A; Weight 78.47 kg jd3 (R); Height 5 ft. 2 in. (157.48 cm) (R); Pain 10/10; 07:14 BP 112 / 58; Pulse 56; Resp 16 S; Pulse Ox 96% on R/A; Pain 7/10; jl7 07:45 BP 129 / 77; Pulse 79; Resp 16; Pulse Ox 99% ; jl7 09:38 BP 123 / 65; Pulse 58; Resp 16; Pulse Ox 99% ; jl7 11:00 BP 127 / 76; Pulse 76; Resp 14; Pulse Ox 99% ; jl7 13:00 BP 117 / 61; Pulse 81; Resp 16; Pulse Ox 99% ; jl7 06:35 Body Mass Index 31.64 (78.47 kg, 157.48 cm) jd3 MDM: 06:33 Patient medically screened. cp 07:00 Differential diagnosis: ectopic , UTI, dehydration, electrolyte abnormality. 10:10 Data reviewed: vital signs, nurses notes, lab test result(s), radiologic studies, cp ultrasound, VSS. Patient continues to vomit when attempting po fluids, will admit for continued management. 10:15 Physician consultation: Jamshid Grajeda MD was called at 10:15, left message with front end loader operator staff. 10:56 ED course: VSS. Spoke with DR Gross, patient's primary DIGITAL CONTROLS TECHNICAL OFFICER, requests patient be cp admitted to our facility for continued care. 11:03 Physician consultation: Jamshid Grajeda MD was called at 11:03, was contacted at 11:03, regarding consult, patient's condition, and will see patient in ED, shortly. 06/02 06:35 Order name: Amylase, Serum; Complete Time: 10:04 cp 06/02 06:35 Order name: Basic Metabolic Panel; Complete Time: 10:04 cp 06/02 12:31 Interpretation: Normal except: CL 108; BUN 5. cp 06/02 06:35 Order name: CBC with Diff; Complete Time: 09:24 cp 06/02 07:56 Interpretation: Normal except: WBC 11.2; RBC 5.00; HGB 15.4; ANGELITO% 73.9; NEUT A 8.2. 06/02 06:35 Order name: Creatinine for Radiology; Complete Time: 09:24 06/02 06:35 Order name: Hepatic Function; Complete Time: 10:04 cp 06/02 06:35 Order name: Lipase; Complete Time: 10:04 06/02 12:32 Interpretation: LIP 67; Reviewed. 06/02 06:35 Order name: Urine Microscopic Only; Complete Time: 11:18 cp 06/02 11:19 Interpretation: Normal except: SQEPI 5-10. 06/02 06:35 Order name: Beta hcg; Complete Time: 10:04 06/02 06:55 Order name: US Transvaginal Ob; Complete Time: 09:24 06/02 09:25 Interpretation: Report reviewed. 06/02 07:54 Order name: CBC Smear Scan; Complete Time: 09:24 EDMS 06/02 09:51 Order name: Urine Dipstick--Ancillary (enter results); Complete Time: 11:18 eb 06/02 11:18 Interpretation: Normal except: UKET 4+; UBLD TRACE; UPROT 1+. 06/02 09:51 Order name: Urine --Ancillary (enter results); Complete Time: 11:18 eb 06/02 11:18 Interpretation: URINE PREG POS; Reviewed. 06/02 06:35 Order name: IV Saline Lock; Complete Time: 06:49 06/02 06:35 Order name: Labs collected and sent; Complete Time: 06:49 06/02 06:35 Order name: Urine Dipstick-Ancillary (obtain specimen); Complete Time: 10:03 06/02 07:38 Order name: Labs - recollect needed; Complete Time: 08:44 iw Administered Medications: 06:56 Drug: Zofran 4 mg Route: IVP; Site: right forearm; jd3 07:30 Follow up: Response: No adverse reaction; Nausea is decreased jl7 06:56 Drug: Benadryl 12.5 mg Route: IVP; Site: right forearm; jd3 07:30 Follow up: Response: No adverse reaction jl7 06:56 Drug: Pepcid 20 mg Route: IVP; Site: right forearm; jd3 07:30 Follow up: Response: No adverse reaction; Pain is decreased jl7 06:56 Drug: NS 0.9% 1000 ml Route: IV; Rate: 1 bolus; Site: right forearm; jd3 08:20 Follow up: Response: No adverse reaction; IV Status: Completed infusion jl7 08:43 Drug: NS 0.9% 1000 ml Route: IV; Rate: 1 bolus; Site: right forearm; jl7 09:54 Follow up: IV Status: Completed infusion jl7 08:44 Drug: Phenergan 25 mg Route: IVP; Site: right forearm; jl7 09:55 Follow up: Response: No adverse reaction; Nausea unchanged jl7 09:52 Drug: NS 0.9% 1000 ml Route: IV; Rate: 125 ml/hr; Site: right forearm; jl7 13:29 Follow up: IV Status: Infusion continued upon admission jl7 09:53 Drug: Phenergan Suppository 25 mg Route: HI; jl7 11:00 Follow up: Response: No adverse reaction; Nausea unchanged jl7 Disposition: 15:24 Co-signature as Attending Physician, Sharath Rod MD I agree with the assessment and kdr plan of care. Disposition: 06/02/18 12:46 Hospitalization ordered by Jamshid Grajeda for Inpatient Admission. Preliminary diagnosis is Hyperemesis gravidarum with metabolic disturbance. - [facility]. - Status is Inpatient Admission. jl7 - Condition is Stable. - Problem is new. - Symptoms have improved. UTI on Admission? No Signatures: Dispatcher [employer] EDAlem Plaza RN RN dw Rittger, Kevin, MD MD kdr Williams, Irene, RN RN iw Page, Corey, PA PA cp Toni Bryant RN RN jl7 Eladio Rivas RN RN jd3 Botello, Elizabeth eb Corrections: (The following items were deleted from the chart) 12:53 12:46 Hospitalization Ordered by Jamshid Grajeda MD for Observation. Preliminary cp diagnosis is Hyperemesis gravidarum with metabolic disturbance. Bed requested for Telemetry/MedSurg (observation). Status is Observation. Condition is Stable. Problem is new. Symptoms have improved. UTI on Admission? No. cp 13:08 12:53 06/02/2018 12:46 Hospitalization Ordered by Jamshid Grajeda MD for Inpatient eb Admission. Preliminary diagnosis is Hyperemesis gravidarum with metabolic disturbance. Bed requested for Telemetry/MedSurg (observation). Status is Inpatient Admission. Condition is Stable. Problem is new. Symptoms have improved. UTI on Admission? No. cp 13:16 13:08 06/02/2018 12:46 Hospitalization Ordered by Jamshid Grajeda MD for Inpatient cp Admission. Preliminary diagnosis is Hyperemesis gravidarum with metabolic disturbance. Bed requested for Telemetry/MedSurg (observation). Status is Inpatient Admission. Condition is Stable. Problem is new. Symptoms have improved. UTI on Admission? No. eb 13:16 13:16 06/02/2018 12:46 Hospitalization Ordered by Jamshid Grajeda MD for Inpatient dw Admission. Preliminary diagnosis is Hyperemesis gravidarum with metabolic disturbance. Bed requested for [facility]. Status is Inpatient Admission. Condition is Stable. Problem is new. Symptoms have improved. UTI on Admission? No. cp 13:37 13:16 06/02/2018 12:46 Hospitalization Ordered by Jamshid Grajeda MD for Inpatient jl7 Admission. Preliminary diagnosis is Hyperemesis gravidarum with metabolic disturbance. Bed requested for [facility]. Status is Inpatient Admission. Condition is Stable. Problem is new. Symptoms have improved. UTI on Admission? No. dw
[2018-06-02 13:42] VITALS: O2SAT 99
[2018-06-02] MEDS ORDERED: D5LR 1,000 ML IV ONE (14:12)
[2018-06-02] MEDS ORDERED: D5LR 1,000 ML IV SCH (15:00)
[2018-06-02] MEDS: ONDANSETRON 4 MG (ODT) TAB PO PRN ×2 (17:09→21:20)
[2018-06-02] MEDS: D5LR 1,000 ML IV SCH (18:55)
[2018-06-02] MEDS: PROMETHAZINE 25 MG/ML VIAL IV PRN (19:55)
[2018-06-02] MEDS ORDERED: ACETAMINOPHEN 500 MG TAB PO PRN (22:05)
--- NOTE | 2018-06-02 22:13 | PREOPHP ---
Date of Admission: 06/02/2018 History Of Present Illness: Ms. Fuentes is a 27-year-old female, 3, para 2-0-0-2, now at approximately 7+ weeks gestation. She comes in by ambulance to the emergency room complaining of nausea and vomiting in early . She had been hospitalized for 1-2 day period of time last week at [facility], she was dismissed with Phenergan and presents with continued nausea and vomiting. She denies any vaginal bleeding or spotting. She only complains of abdominal pain. Past Medical History: Includes 2 prior vaginal deliveries without complications , other than first was complicated with hyperemesis. She has no other significant hospitalizations, accidents, illnesses, injuries other than appendectomy done earlier this year through laparoscopy. Medications: She is on no medications on a regular basis other than vitamin and Phenergan tabs as an outpatient. Family History: Noncontributory. Review of Systems: Weight has been down perhaps just a couple of pounds since she has become . She denies recent cough, cold, fever, or chills. She denies any breast lumps or knots. She denies significant abdominal pain other than the nausea and from vomiting. She denies any urine symptoms or bowel issues. Physical Examination: General: Reveals an ill-appearing female. Neck: Supple without adenopathy or thyromegaly. Lungs: Clear. Cardiac: Regular rate and rhythm without murmurs. Abdomen: Without organosplenomegaly. No evidence of rebound tenderness. Pelvic: Not performed. Extremities: No cyanosis, clubbing, or edema. Laboratory Data: She has concentrated urine, 4+ ketones on her urine. Otherwise, lab work is generally normal. Impression: Hyperemesis gravidarum. Plan: The patient is admitted. She has been given 2 L of IV fluids so far. We will continue IV hydration, treat with antiemetic therapy, slowly advance diet. JIL/APOLONIA Voice ID: [id number] MTDD
[2018-06-02] MEDS ORDERED: RANITIDINE 150 MG TABLET ONE (23:35)
[2018-06-03] MEDS: RANITIDINE 150 MG TABLET PO SCH ×3 (00:40→21:00)
[2018-06-03] MEDS: D5LR 1,000 ML IV SCH ×5 (00:40→23:43)
[2018-06-03] MEDS: PROMETHAZINE 25 MG/ML VIAL IV PRN ×5 (02:15→20:14)
--- NOTE | 2018-06-03 17:19 | P.PN ---
Date of Service: 06/03/18 S-Still nauseated O-neg fluid balance, ketones down to trace. Pt has not really taken anything by mouth, sleeping every time I am in room Voiced desire to consider TOP A-No real improvement P-Increase IV rate, encouraged some minimal fluid intake
[2018-06-04] MEDS: PROMETHAZINE 25 MG/ML VIAL IV PRN ×5 (00:30→20:25)
[2018-06-04 00:54] VITALS: BMI 30.9
[2018-06-04 04:54] LABS: Potassium 3.1 mmol/L (3.5-5.1)
--- NOTE | 2018-06-04 07:58 | P.PN ---
Date of Service: 06/04/18 S-Continued nausea, unable to tolerate po Zantac O-Afeb, vs stable, pt. still vomiting, wt up one pound, ketonuria mostly cleared. A-Stable but not improved enough to tolerate po alimentation P-IV Zantac, may consider transfer to another institution if no further improvement.
[2018-06-04] MEDS: RANITIDINE 150 MG TABLET PO SCH ×2 (09:00→21:00)
[2018-06-04] MEDS: D5LR 1,000 ML IV SCH ×5 (09:15→22:35)
[2018-06-04] MEDS: ONDANSETRON 4 MG (ODT) TAB PO PRN ×2 (16:18→23:30)
[2018-06-05] MEDS: PROMETHAZINE 25 MG/ML VIAL IV PRN ×2 (01:25→07:45)
[2018-06-05] MEDS: D5LR 1,000 ML IV SCH ×2 (01:26→04:18)
[2018-06-05] MEDS: ONDANSETRON 4 MG (ODT) TAB PO PRN (03:46)
[2018-06-05] MEDS ORDERED: NA CIT/CITRIC AC 30 ML ORAL UDC PO ONE (07:27)
[2018-06-05] MEDS: RANITIDINE 150 MG TABLET PO SCH (09:30)
[2018-06-05 09:42] VITALS: BP 140/78; TEMP 98.8
--- NOTE | 2018-06-06 05:19 | DS ---
Date of Discharge: 06/05/2018 Hospital Course: Ms. Fuentes is a 27-year-old female, 3, para 2-0-0-2, admitted for hyperemesis gravidarum. She was dismissed after 4 days of IV hydration, still nauseated, but with sc ripts for Zofran and Phenergan. She is to be seen back through [facility] or an [place] [facility] phys ician she saw prior to presenting to our emergency room. Lab work obtained during this hospital stay included admission hemoglobin and hematocrit 15.4 and 44.5. She is noted to be approximately 7+ wee ks gestation. Weight stabilized and slightly increased. Vital signs otherwise remained stable. JIL/APOLONIA Voice ID: [id number] Report ID: [id number]
== END 2018-06-05 11:00 | disposition home or self-care (01) | DRG 781 ==
LOC: ER 06:25 → INTOOBSV 12:41 → ERHOLD 12:41 → 2ND-WC 13:30 → OBSVTOIN 06-04 08:36
PROVIDERS: ADMIT Specialist; ATTEND Specialist
DX: O21.0 Mild hyperemesis gravidarum (principal); Z3A.01 Less than 8 weeks gestation of pregnancy
CPT/HCPCS: 36415; 76817; 80048; 80051; 80076; 81003; 81015; 81025; 82150; 83690; 84702; 85025; 96361; 96374; 96375; 99285; J2405; J2550; J2780; J7030

== ENCOUNTER 2018-06-15 16:00 | Emergency (ER) | payer OTHER ==
[2018-06-15] MEDS ORDERED: NA CHLORIDE 0.9% 1,000 ML ONE (16:14)
[2018-06-15] MEDS ORDERED: PROMETHAZINE 25 MG/ML VIAL ONE (16:17)
[2018-06-15] MEDS ORDERED: NA CHLORIDE 0.9% 100 ML IV ONE (16:18)
[2018-06-15 16:25] LABS: Absolute Monocytes 0.6 K/uL (0.1-1.3); Absolute Neutrophil 7.6 K/uL (1.8-8.0); Basophils % 0.3 % (0-1.3); Eosinophils % 0.5 % (0-4.4); Hematocrit 43.4 % (36.0-45.0); Lymphocytes % 19.4 % (15.3-44.8); MCH 30.6 pg (27.0-35.0); MCV 88.2 fL (80-100); MPV 8.6 fL (7.6-11.3); Monocytes % 5.8 % (3.3-12.3); RBC Red Blood Cell Count 4.92 M/uL (3.86-4.86)
[2018-06-15 16:58] LABS: BUN Blood Urea Nitrogen 4 mg/dL (7-18); Bicarbonate 22 mmol/L (21-32); Glucose Level 87 mg/dL (74-106); HCG, Quantitative 112738 mIU/mL (1-3); Potassium 3.9 mmol/L (3.5-5.1); Sodium Level 138 mmol/L (136-145)
--- NOTE | 2018-06-15 17:00 | ER ---
Nurse's Notes [facility] Name: Suraj Fuentes Age: 27 yrs Sex: Female : 1990 Arrival Date: 06/15/2018 Time: 16:01 Bed 28 Private MD: Diagnosis: Vomiting, unspecified;Diarrhea, unspecified; state, incidental Presentation: 06/15 16:02 Presenting complaint: EMS states: she has been vomiting with episodes of diarrhea since mg2 morning. she is 10 weeks with abdominal pain but denies vaginal bleeding. Transition of care: patient was not received from another setting of care. Onset of symptoms was June 15, 2018. Risk Assessment: Do you want to hurt yourself or someone else? Patient reports no desire to harm self or others. Initial Sepsis Screen: Does the patient meet any 2 criteria? No. Patient's initial sepsis screen is negative. Does the patient have a suspected source of infection? No. Patient's initial sepsis screen is negative. Care prior to arrival: None. 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 - Social history:: Smoking status: Patient/guardian denies using tobacco, Patient/guardian denies using alcohol, street drugs, IV drugs. - Ebola Screening: : No symptoms or risks identified at this time. Screenin:06 Abuse screen: Denies threats or abuse. Denies injuries from another. Nutritional mg2 screening: No deficits noted. Tuberculosis screening: No symptoms or risk factors identified. Fall Risk Assessment: 16:06 General: Appears uncomfortable, Behavior is calm, cooperative. Pain: Complains of pain mg2 in abdomen Pain does not radiate. Pain currently is 10 out of 10 on a pain scale. Quality of pain is described as aching, Pain began gradually, Is intermittent, Aggravated by vomtiing Also complains of vomiting. Neuro: Level of Consciousness is awake, alert, obeys commands, Oriented to person, place, time, situation. Cardiovascular: Capillary refill < 3 seconds Patient's skin is warm and dry. Respiratory: Airway is patent Respiratory effort is even, unlabored, Respiratory pattern is regular, symmetrical. GI: Pt is actively vomiting greenish vomitus. : No signs and/or symptoms were reported regarding the genitourinary system. EENT: No signs and/or symptoms were reported regarding the EENT system. Derm: Skin is intact, Skin is pink, warm \T\ dry. normal. Musculoskeletal: No signs and/or symptoms reported regarding the musculoskeletal system. 17:00 Reassessment: Patient appears in no apparent distress at this time. Patient and/or mg2 family updated on plan of care and expected duration. Pain level reassessed. Patient is alert, oriented x 3, equal unlabored respirations, skin warm/dry/pink. Vital Signs: 16:05 BP 131 / 82; Pulse 84; Resp 18; Temp 98.9; Pulse Ox 98% on R/A; Weight 75.3 kg; Height mg2 5 ft. 2 in. (157.48 cm); Pain 10/10; 17:00 BP 118 / 80; Pulse 78; Resp 18; Pulse Ox 100% ; Pain 0/10; mg2 17:34 BP 128 / 82; Pulse 85; Resp 18; Pulse Ox 100% on R/A; Pain 0/10; mg2 16:05 Body Mass Index 30.36 (75.30 kg, 157.48 cm) mg2 ED Course: 16:00 Patient has correct armband on for positive identification. Placed in gown. Call light mg2 in reach. Side rails up X2. 16:01 Patient arrived in ED. mg2 16:04 Triage completed. mg2 16:05 Arm band placed on. mg2 16:06 Inserted saline lock: 20 gauge in left forearm, using aseptic technique. Blood mg2 collected. 16:09 Inocencia Salamanca FNP-C is [facility]. snw 16:09 Pancho Greene MD is Attending Physician. snw 16:09 Tien Juarez RN is Primary Nurse. mg2 17:34 No provider procedures requiring assistance completed. IV discontinued, intact, mg2 bleeding controlled, No redness/swelling at site. Pressure dressing applied. Administered Medications: 16:13 Drug: NS 0.9% 1000 ml Route: IV; Rate: 1 bolus; Site: left forearm; mg2 17:34 Follow up: Response: No adverse reaction; IV Status: Completed infusion mg2 16:16 Drug: Phenergan 12.5 mg Route: IVP; Site: left forearm; mg2 17:34 Follow up: Response: No adverse reaction; Nausea is decreased; Vomiting decreased mg2 Outcome: 17:00 Discharge ordered by MD. gomes 17:35 Discharged to home ambulatory, with family. mg2 17:35 Condition: stable 17:35 Discharge instructions given to patient, family, Instructed on discharge instructions, follow up and referral plans. medication usage, Demonstrated understanding of instructions, follow-up care, medications, Prescriptions given X 1. 17:44 Patient left the ED. mg2 Signatures: Inocencia Salamanca, POLLUTION CONTROL CHEMIST-C POLLUTION CONTROL CHEMIST-Csnw Tien Juarez, RN RN mg2
--- NOTE | 2018-06-15 17:01 | EDPHYS ---
Physician Documentation [facility] Name: Suraj Fuentes Age: 27 yrs Sex: Female : 1990 Arrival Date: 06/15/2018 Time: 16:01 Bed 28 Private MD: ED Physician Pancho Greene HPI: 06/15 16:11 This 27 yrs old Female presents to ER via EMS with complaints of vomiting. snw 16:11 The patient presents to the emergency department with nausea, vomiting, diarrhea, once. snw Onset: The symptoms/episode began/occurred suddenly. Possible causes: . Associated signs and symptoms: The patient has no apparent associated signs or symptoms. Severity of symptoms: At their worst the symptoms were moderate. The patient has experienced similar episodes in the past, several times. The patient has been recently seen by a physician: The patient has been recently seen at the [facility] Emergency Department, last week, for similar complaints US in ED with + IUP, dx with hyperemesis. 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 - Social history:: Smoking status: Patient/guardian denies using tobacco, Patient/guardian denies using alcohol, street drugs, IV drugs. - Ebola Screening: : No symptoms or risks identified at this time. ROS: 16:13 Constitutional: Negative for fever, chills, and weight loss, Eyes: Negative for injury, snw pain, redness, and discharge, ENT: Negative for injury, pain, and discharge, Neck: Negative for injury, pain, and swelling, Cardiovascular: Negative for chest pain, palpitations, and edema, Respiratory: Negative for shortness of breath, cough, wheezing, and pleuritic chest pain, Back: Negative for injury and pain, : Negative for injury, bleeding, discharge, and swelling, MS/Extremity: Negative for injury and deformity, Skin: Negative for injury, rash, and discoloration, Neuro: Negative for headache, weakness, numbness, tingling, and seizure. 16:13 Abdomen/GI: Positive for abdominal pain, nausea, vomiting, and diarrhea. Exam: 16:12 Constitutional: This is a well developed, well nourished patient who is awake, alert, snw and in no acute distress. Head/Face: Normocephalic, atraumatic. Eyes: Pupils equal round and reactive to light, extra-ocular motions intact. Lids and lashes normal. Conjunctiva and sclera are non-icteric and not injected. Cornea within normal limits. Periorbital areas with no swelling, redness, or edema. ENT: Nares patent. No nasal discharge, no septal abnormalities noted. Tympanic membranes are normal and external auditory canals are clear. Oropharynx with no redness, swelling, or masses, exudates, or evidence of obstruction, uvula midline. Mucous membranes moist. Neck: Trachea midline, no thyromegaly or masses palpated, and no cervical lymphadenopathy. Supple, full range of motion without nuchal rigidity, or vertebral point tenderness. No Meningismus. Chest/axilla: Normal chest wall appearance and motion. Nontender with no deformity. No lesions are appreciated. Cardiovascular: Regular rate and rhythm with a normal S1 and S2. No gallops, murmurs, or rubs. Normal PMI, no JVD. No pulse deficits. Respiratory: Lungs have equal breath sounds bilaterally, clear to auscultation and percussion. No rales, rhonchi or wheezes noted. No increased work of breathing, no retractions or nasal flaring. Back: No spinal tenderness. No costovertebral tenderness. Full range of motion. Skin: Warm, dry with normal turgor. Normal color with no rashes, no lesions, and no evidence of cellulitis. MS/ Extremity: Pulses equal, no cyanosis. Neurovascular intact. Full, normal range of motion. Neuro: Awake and alert, GCS 15, oriented to person, place, time, and situation. Cranial nerves II-XII grossly intact. Motor strength 5/5 in all extremities. Sensory grossly intact. Cerebellar exam normal. Normal gait. 16:12 Abdomen/GI: Inspection: abdomen appears normal, Bowel sounds: normal, in all quadrants, Palpation: mild abdominal tenderness, in the right upper quadrant and left upper quadrant, moderate abdominal tenderness. Vital Signs: 16:05 BP 131 / 82; Pulse 84; Resp 18; Temp 98.9; Pulse Ox 98% on R/A; Weight 75.3 kg; Height mg2 5 ft. 2 in. (157.48 cm); Pain 10/10; 17:00 BP 118 / 80; Pulse 78; Resp 18; Pulse Ox 100% ; Pain 0/10; mg2 17:34 BP 128 / 82; Pulse 85; Resp 18; Pulse Ox 100% on R/A; Pain 0/10; mg2 16:05 Body Mass Index 30.36 (75.30 kg, 157.48 cm) mg2 MDM: 16:09 Patient medically screened. snw 17:03 Data reviewed: vital signs, nurses notes. Data interpreted: Pulse oximetry: on room air snw is 98 %. Interpretation: normal. Counseling: I had a detailed discussion with the patient and/or guardian regarding: the historical points, exam findings, and any diagnostic results supporting the discharge/admit diagnosis, the presence of at least one elevated blood pressure reading (>120/80) during this emergency department visit, lab results, the need for outpatient follow up, to return to the emergency department if symptoms worsen or persist or if there are any questions or concerns that arise at home. Special discussion: Based on the patient's Hx, exam, and Dx evaluation, there is no indication for emergent surgery or inpatient Tx. It is understood by the patient/guardian that if the Sx's persist or worsen they need to return immediately for re-evaluation. Based on the history and exam findings, there is no indication for further emergent testing or inpatient evaluation. I discussed with the patient/guardian the need to see the OB Gyne specialist for further evaluation of the symptoms. 06/15 16:12 Order name: Quantitative Hcg; Complete Time: 16:59 snw 06/15 16:12 Order name: CBC with Diff; Complete Time: 16:29 snw 06/15 16:12 Order name: Chem 7; Complete Time: 16:59 snw Administered Medications: 16:13 Drug: NS 0.9% 1000 ml Route: IV; Rate: 1 bolus; Site: left forearm; mg2 17:34 Follow up: Response: No adverse reaction; IV Status: Completed infusion mg2 16:16 Drug: Phenergan 12.5 mg Route: IVP; Site: left forearm; mg2 17:34 Follow up: Response: No adverse reaction; Nausea is decreased; Vomiting decreased mg2 Disposition: 06/16 15:17 Co-signature as Attending Physician, Pancho Greene MD I agree with the assessment and [facility] plan of care. Disposition: 06/15/18 17:00 Discharged to Home. Impression: Vomiting, unspecified, Diarrhea, unspecified, state, incidental. - Condition is Stable. - Discharge Instructions: Food Choices to Help Relieve Diarrhea, Adult, Diarrhea, Adult, Nausea and Vomiting, Adult, Rehydration, Adult. - Prescriptions for Phenergan 25 mg Rectal Suppository - insert 1 suppository by RECTAL route every 6 hours As needed; 12 suppository. - Medication Reconciliation Form, Thank You Letter, Antibiotic Education, Prescription Opioid Use form. - Follow up: Private Physician; When: 1 - 2 days; Reason: Recheck today's complaints, Continuance of care, Re-evaluation by your physician. Follow up: Emergency Department; When: As needed; Reason: Worsening of condition. Signatures: Dispatcher [employer] EDNV Pancho Greene MD MD cha Therrien, Shelly, CSR-C CSR-Csnw Tien Juarez RN RN mg2 Corrections: (The following items were deleted from the chart) 06/15 17:44 17:00 06/15/2018 17:00 Discharged to Home. Impression: Vomiting, unspecified; Diarrhea, mg2 unspecified; state, incidental. Condition is Stable. Discharge Instructions: Food Choices to Help Relieve Diarrhea, Adult, Diarrhea, Adult, Nausea and Vomiting, Adult, Rehydration, Adult. Prescriptions for Phenergan 25 mg Rectal Suppository - insert 1 suppository by RECTAL route every 6 hours As needed; 12 suppository. and Forms are Medication Reconciliation Form, Thank You Letter, Antibiotic Education, Prescription Opioid Use. Follow up: Private Physician; When: 1 - 2 days; Reason: Recheck today's complaints, Continuance of care, Re-evaluation by your physician. Follow up: Emergency Department; When: As needed; Reason: Worsening of condition. snw
[2018-06-15 17:50] VITALS: TEMP 98.9
[2018-06-15 17:52] VITALS: BP 128/82; O2SAT 100
== END 2018-06-15 17:44 | disposition home or self-care (01) ==
LOC: ER 16:00
DX: R19.7 Diarrhea, unspecified (principal); Z33.1 Pregnant state, incidental; Z88.6 Allergy status to analgesic agent; Z91.018 Allergy to other foods
CPT/HCPCS: 36415; 80048; 84702; 85025; 96361; 96374; 99284; J2550; J7030

== ENCOUNTER 2018-06-18 20:45 | Emergency (ER) | payer OTHER ==
[2018-06-18] MEDS ORDERED: ONDANSETRON 4 MG/2 ML VIAL ONE (21:32)
[2018-06-18] MEDS ORDERED: NA CHLORIDE 0.9% 2,000 ML ONE (21:32)
[2018-06-18 21:35] LABS: Urine Blood TRACE (NEG); Urine Glucose NEGATIVE (NEG); Urine Protein 1+ (NEG)
[2018-06-18 21:39] LABS: Absolute Lymphocytes (CBC) 2.3 K/uL (0.7-4.9); Absolute Monocytes 0.8 K/uL (0.1-1.3); Absolute Neutrophil 5.8 K/uL (1.8-8.0); Basophils % 0.5 % (0-1.3); Eosinophils % 0.5 % (0-4.4); Hematocrit 43.4 % (36.0-45.0); Lymphocytes % 25.4 % (15.3-44.8); MCH 31.3 pg (27.0-35.0); MPV 8.1 fL (7.6-11.3); RBC Red Blood Cell Count 4.99 M/uL (3.86-4.86)
[2018-06-18 22:12] LABS: ALT/SGPT 34 U/L (12-78); AST/SGOT 20 U/L (15-37); Albumin 3.9 g/dL (3.4-5.0); Alkaline Phosphatase 56 U/L (45-117); BUN Blood Urea Nitrogen 9 mg/dL (7-18); Bicarbonate 25 mmol/L (21-32); Bilirubin Direct 0.2 mg/dL (0-0.2); Bilirubin Total 0.7 mg/dL (0.2-1.0); Glucose Level 92 mg/dL (74-106); HCG, Quantitative 105200 mIU/mL (1-3); Lipase 85 U/L (73-393); Potassium 3.3 mmol/L (3.5-5.1); Protein, Total 7.9 g/dL (6.4-8.2); Sodium Level 140 mmol/L (136-145)
--- NOTE | 2018-06-18 22:20 | EDPHYS ---
Physician Documentation [facility] Name: Suraj Fuentes Age: 27 yrs Sex: Female : 1990 Arrival Date: 06/18/2018 Time: 20:46 Bed 25 Private MD: ED Physician Pancho Greene HPI: 06/18 21:10 This 27 yrs old Female presents to ER via Ambulatory with complaints of jessica Vomiting - 11 Wks Preg. 21:10 The patient presents to the emergency department with nausea, vomiting, that is jessica continuous. Onset: The symptoms/episode began/occurred 3 day(s) ago. Possible causes: . The symptoms are aggravated by nothing. food , The symptoms are alleviated by nothing. remaining still. Associated signs and symptoms: The patient has no apparent associated signs or symptoms. Associated signs and symptoms: Pertinent positives:. Severity of symptoms: At their worst the symptoms were mild moderate in the emergency department the symptoms are unchanged. The patient has not experienced similar symptoms in the past. 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 - Social history:: Smoking status: Patient/guardian denies using tobacco. - Ebola Screening: : Patient denies travel to an Ebola-affected area in the 21 days before illness onset. - Family history:: not pertinent. ROS: 21:10 Constitutional: Negative for fever, chills, and weight loss, Eyes: Negative for injury, jessica pain, redness, and discharge, ENT: Negative for injury, pain, and discharge, Neck: Negative for injury, pain, and swelling, Cardiovascular: Negative for chest pain, palpitations, and edema, Respiratory: Negative for shortness of breath, cough, wheezing, and pleuritic chest pain, Back: Negative for injury and pain, : Negative for injury, bleeding, discharge, and swelling, MS/Extremity: Negative for injury and deformity, Skin: Negative for injury, rash, and discoloration, Neuro: Negative for headache, weakness, numbness, tingling, and seizure, Psych: Negative for depression, anxiety, suicide ideation, homicidal ideation, and hallucinations, Allergy/Immunology: Negative for hives, rash, and allergies, Endocrine: Negative for neck swelling, polydipsia, polyuria, polyphagia, and marked weight changes, Hematologic/Lymphatic: Negative for swollen nodes, abnormal bleeding, and unusual bruising. 21:10 Abdomen/GI: Positive for abdominal pain, nausea, vomiting, of the epigastric area and suprapubic area. Exam: 21:10 Constitutional: This is a well developed, well nourished patient who is awake, alert, jessica and in no acute distress. Head/Face: Normocephalic, atraumatic. Eyes: Pupils equal round and reactive to light, extra-ocular motions intact. Lids and lashes normal. Conjunctiva and sclera are non-icteric and not injected. Cornea within normal limits. Periorbital areas with no swelling, redness, or edema. ENT: Nares patent. No nasal discharge, no septal abnormalities noted. Tympanic membranes are normal and external auditory canals are clear. Oropharynx with no redness, swelling, or masses, exudates, or evidence of obstruction, uvula midline. Mucous membranes moist. Neck: Trachea midline, no thyromegaly or masses palpated, and no cervical lymphadenopathy. Supple, full range of motion without nuchal rigidity, or vertebral point tenderness. No Meningismus. Chest/axilla: Normal chest wall appearance and motion. Nontender with no deformity. No lesions are appreciated. Cardiovascular: Regular rate and rhythm with a normal S1 and S2. No gallops, murmurs, or rubs. Normal PMI, no JVD. No pulse deficits. Respiratory: Lungs have equal breath sounds bilaterally, clear to auscultation and percussion. No rales, rhonchi or wheezes noted. No increased work of breathing, no retractions or nasal flaring. Back: No spinal tenderness. No costovertebral tenderness. Full range of motion. Female : Normal external genitalia. Skin: Warm, dry with normal turgor. Normal color with no rashes, no lesions, and no evidence of cellulitis. MS/ Extremity: Pulses equal, no cyanosis. Neurovascular intact. Full, normal range of motion. Neuro: Awake and alert, GCS 15, oriented to person, place, time, and situation. Cranial nerves II-XII grossly intact. Motor strength 5/5 in all extremities. Sensory grossly intact. Cerebellar exam normal. Normal gait. Psych: Awake, alert, with orientation to person, place and time. Behavior, mood, and affect are within normal limits. 21:10 Abdomen/GI: Inspection: gravid appearance, Bowel sounds: normal, Palpation: mild abdominal tenderness, in the epigastric area and suprapubic area, Liver: no appreciated palpable abnormalities, Hernia: not appreciated. Vital Signs: 20:54 BP 132 / 90; Pulse 103; Resp 20; Temp 98.3; Pulse Ox 98% on R/A; Weight 75.3 kg (R); aj1 Height 5 ft. 2 in. (157.48 cm) (R); Pain 8/10; 22:27 BP 115 / 63; Pulse 69; Resp 18; Pulse Ox 100% on R/A; tl3 23:22 BP 107 / 52; Pulse 65; Resp 18; Pulse Ox 100% on R/A; tl3 20:54 Body Mass Index 30.36 (75.30 kg, 157.48 cm) aj1 MDM: 21:02 Patient medically screened. [facility] 21:12 Data reviewed: vital signs, nurses notes, lab test result(s), radiologic studies, [facility] ultrasound. 06/18 21:09 Order name: Quantitative Hcg; Complete Time: 22:17 [facility] 06/18 21:09 Order name: Abo/rh Typing; Complete Time: 22:17 [facility] 06/18 21:09 Order name: Basic Metabolic Panel; Complete Time: 22:17 [facility] 06/18 21:09 Order name: CBC with Diff; Complete Time: 21:59 [facility] 06/18 21:09 Order name: LFT's; Complete Time: 22:17 [facility] 06/18 21:09 Order name: Lipase; Complete Time: 22:17 [facility] 06/18 21:09 Order name: US Abdomen Limited [facility] 06/18 21:10 Order name: Urine Culture [facility] 06/18 21:18 Order name: Urine Dipstick--Ancillary (enter results); Complete Time: 21:59 [facility] 06/18 21:20 Order name: Urine --Ancillary (enter results); Complete Time: 21:59 [facility] 06/18 22:01 Order name: 1St Trimest Single 1St [facility] EDKS 06/18 21:09 Order name: Urine Test (obtain specimen); Complete Time: 21:42 [facility] 06/18 21:09 Order name: IV Saline Lock; Complete Time: 21:42 [facility] 06/18 21:09 Order name: Labs collected and sent; Complete Time: 21:42 [facility] 06/18 21:09 Order name: NPO; Complete Time: 21:42 [facility] 06/18 21:09 Order name: Urine Dipstick-Ancillary (obtain specimen); Complete Time: 21:43 [facility] 06/18 22:24 Order name: PO challenge: juice; Complete Time: 22:41 [facility] Administered Medications: 21:41 Drug: NS 0.9% 1000 ml Route: IV; Rate: 1 bolus; Site: right forearm; tl3 21:57 Follow up: IV Pause: 06/18/2018 21:57; IV Pause Reason: Patient to CT tl3 22:41 Follow up: IV Resume: 06/18/2018 22:41; IV Resume Reason: Patient returned from CT tl3 23:21 Follow up: IV Status: Completed infusion; IV Intake: 1000ml tl3 21:41 Drug: Zofran 4 mg Route: IVP; Infused Over: 2 mins; Site: right forearm; tl3 23:21 Follow up: Response: No adverse reaction tl3 21:57 Drug: NS 0.9% 1000 ml Route: IV; Rate: 1 bolus; Site: right forearm; Delivery: Primary tl3 tubing; 21:57 Follow up: IV Pause: 06/18/2018 21:57; IV Pause Reason: Patient to CT tl3 22:41 Follow up: IV Resume: 06/18/2018 22:41; IV Resume Reason: Patient returned from tl3 Ultrasound 23:22 Follow up: IV Status: Completed infusion; IV Intake: 1000ml tl3 22:49 Drug: Rocephin - (cefTRIAXone) 1 grams {Note: IVP.} Route: IVPB; Infused Over: 5 mins; tl3 Site: right forearm; Delivery: Primary tubing; 22:50 Follow up: IV Status: Completed infusion; IV Intake: 20ml tl3 23:21 Not Given (pt discharged prior to administration): NS 0.9% 1000 ml IV at 125 ml/hr tl3 continuous Disposition: 06/18/18 22:19 Discharged to Home. Impression: related conditions, unspecified, first trimester, Cystitis, Vomiting. - Condition is Stable. - Discharge Instructions: Abdominal Pain During , Dysuria, Nausea and Vomiting, Adult, First Trimester of , [id number], Nausea and Vomiting, Adult, Tary-ts-Dora, First Trimester of , Abdominal Pain During , [id number], Pelvic Rest. - Prescriptions for Diclegis 10- 10 mg Oral tablet,delayed release (DR/EC) - take 1 tablet by ORAL route 3 times per day and 2 tablets at bedtime; 45 tablet. Zofran 4 mg Oral Tablet - take 1 tablet by ORAL route every 12 hours As needed; 20 tablet. Phenergan 25 mg Rectal Suppository - insert 1 suppository by RECTAL route every 6 hours As needed; 12 suppository. Augmentin 500- 125 mg Oral Tablet - take 1 tablet by ORAL route every 8 hours for 7 days; 21 tablet. - Medication Reconciliation Form, Thank You Letter, Antibiotic Education, Prescription Opioid Use form. - Follow up: Private Physician; When: 2 - 3 days; Reason: Recheck today's complaints, Continuance of care, Re-evaluation by your physician. Follow up: Ayleen Amezcua MD; When: 2 - 3 days; Reason: Recheck today's complaints, Re-evaluation by your physician. - Problem is new. - Symptoms have improved. Signatures: Dispatcher [employer] EDMS Tracee Mcneil RN RN aj1 Pancho Greene MD MD cha Lowrey, Tammy RN RN tl3 Corrections: (The following items were deleted from the chart) 21:22 21:19 URINE --ANCILLARY+UC.LAB.BRZ ordered. EDMS EDMS 22:01 21:19 Transvaginal Ob+US.RAD.BRZ ordered. EDMS EDMS 23:26 22:19 06/18/2018 22:19 Discharged to Home. Impression: related conditions, tl3 unspecified, first trimester; Cystitis; Vomiting. Condition is Stable. Forms are Medication Reconciliation Form, Thank You Letter, Antibiotic Education, Prescription Opioid Use. Follow up: Private Physician; When: 2 - 3 days; Reason: Recheck today's complaints, Continuance of care, Re-evaluation by your physician. Follow up: Ayleen Amezcua; When: 2 - 3 days; Reason: Recheck today's complaints, Re-evaluation by your physician. Problem is new. Symptoms have improved. jessica
--- NOTE | 2018-06-18 22:20 | ER ---
Nurse's Notes [facility] Name: Suraj Fuentes Age: 27 yrs Sex: Female : 1990 Arrival Date: 06/18/2018 Time: 20:46 Bed 25 Private MD: Diagnosis: related conditions, unspecified, first trimester;Cystitis;Vomiting Presentation: 06/18 20:47 Presenting complaint: Patient states: She has been vomiting since yesterday, she has aj1 been unable to hold anything down. Reports abdominal pain and chest pain. Denies fever. States that she is 11 weeks , she had her last ultrasound on the and everything looked fine with the . Transition of care: patient was not received from another setting of care. Onset of symptoms was June 17, 2018. Risk Assessment: Do you want to hurt yourself or someone else? Patient reports no desire to harm self or others. Initial Sepsis Screen: Does the patient meet any 2 criteria? No. Patient's initial sepsis screen is negative. Does the patient have a suspected source of infection? No. Patient's initial sepsis screen is negative. Care prior to arrival: None. 20:47 Method Of Arrival: Ambulatory aj1 20:47 Acuity: SHAW 3 aj1 Triage Assessment: 20:54 General: Appears in no apparent distress. uncomfortable, Behavior is calm, cooperative, aj1 appropriate for age. Pain: Complains of pain in chest and abdomen Pain does not radiate. Pain currently is 8 out of 10 on a pain scale. Neuro: Level of Consciousness is awake, alert, obeys commands. Cardiovascular: Patient's skin is warm and dry. Respiratory: Airway is patent Respiratory effort is even, unlabored, Respiratory pattern is regular, symmetrical. GI: Reports nausea, vomiting. Derm: Skin is pink, warm \T\ dry. normal. Musculoskeletal: Circulation, motion, and sensation intact. DIRECTOR APPOINTMENT: 20:54 LMP 04/08/2018 aj1 Historical: - Allergies: 20:54 Ibuprofen; aj1 20:54 ORANGES; aj1 - Home Meds: 20:54 Phenergan Oral [Active]; Tylenol [Active]; Diclegis oral oral [Active]; Colace oral aj1 oral [Active]; - PMHx: 20:54 None; aj1 - PSHx: 20:54 Appendectomy; aj1 - Immunization history:: Flu vaccine is not up to date. - Social history:: Smoking status: Patient/guardian denies using tobacco. - Ebola Screening: : Patient denies travel to an Ebola-affected area in the 21 days before illness onset. - Family history:: not pertinent. Screenin:27 Abuse screen: Denies threats or abuse. Nutritional screening: No deficits noted. tl3 Tuberculosis screening: No symptoms or risk factors identified. Fall Risk None identified. Assessment: 21:00 General: Appears uncomfortable, well groomed, well developed, well nourished, Behavior tl3 is calm, cooperative, appropriate for age. Pain: Complains of pain in suprapubic area and abdomen. Neuro: Level of Consciousness is awake, alert, obeys commands, Oriented to person, place, time, situation, Appropriate for age. Cardiovascular: Patient's skin is warm and dry. Respiratory: Airway is patent Respiratory effort is even, unlabored, Respiratory pattern is regular, symmetrical. GI: Reports lower abdominal pain, intolerance of fluids, intolerance of food. : Urine is clear. EENT: No signs and/or symptoms were reported regarding the EENT system. Derm: No signs and/or symptoms reported regarding the dermatologic system. Musculoskeletal: No signs and/or symptoms reported regarding the musculoskeletal system. 22:39 Reassessment: Patient appears in no apparent distress at this time. No changes from tl3 previously documented assessment. Patient and/or family updated on plan of care and expected duration. Pain level reassessed. Patient is alert, oriented x 3, equal unlabored respirations, skin warm/dry/pink. pt returned from ultrasound, IV restarted, ice chips offered. 23:22 Reassessment: Patient appears in no apparent distress at this time. No changes from tl3 previously documented assessment. Patient and/or family updated on plan of care and expected duration. Pain level reassessed. Patient is alert, oriented x 3, equal unlabored respirations, skin warm/dry/pink. Vital Signs: 20:54 BP 132 / 90; Pulse 103; Resp 20; Temp 98.3; Pulse Ox 98% on R/A; Weight 75.3 kg (R); aj1 Height 5 ft. 2 in. (157.48 cm) (R); Pain 8/10; 22:27 BP 115 / 63; Pulse 69; Resp 18; Pulse Ox 100% on R/A; tl3 23:22 BP 107 / 52; Pulse 65; Resp 18; Pulse Ox 100% on R/A; tl3 20:54 Body Mass Index 30.36 (75.30 kg, 157.48 cm) aj1 ED Course: 20:46 Patient arrived in ED. ds1 20:53 Triage completed. aj1 20:54 Arm band placed on Patient placed in an exam room. aj1 21:02 Pancho Greene MD is Attending Physician. jessica 21:15 Inserted saline lock: 20 gauge in right forearm, using aseptic technique. tl3 21:27 Jayde Olmos, ALFONZO is Primary Nurse. tl3 22:16 US Abdomen Limited In Process Unspecified. EDMS 22:16 1St Trimest Single 1St Fetus In Process Unspecified. EDMS 22:19 Ayleen Amezcua MD is Referral Physician. jessica 22:24 Warm blanket given. Pillow given. jp3 22:27 Patient has correct armband on for positive identification. Bed in low position. Call tl3 light in reach. Side rails up X 1. Adult w/ patient. Pulse ox on. NIBP on. 22:27 No provider procedures requiring assistance completed. tl3 23:22 IV discontinued, intact, bleeding controlled, No redness/swelling at site. Pressure tl3 dressing applied. Administered Medications: 21:41 Drug: NS 0.9% 1000 ml Route: IV; Rate: 1 bolus; Site: right forearm; tl3 21:57 Follow up: IV Pause: 06/18/2018 21:57; IV Pause Reason: Patient to CT tl3 22:41 Follow up: IV Resume: 06/18/2018 22:41; IV Resume Reason: Patient returned from CT tl3 23:21 Follow up: IV Status: Completed infusion; IV Intake: 1000ml tl3 21:41 Drug: Zofran 4 mg Route: IVP; Infused Over: 2 mins; Site: right forearm; tl3 23:21 Follow up: Response: No adverse reaction tl3 21:57 Drug: NS 0.9% 1000 ml Route: IV; Rate: 1 bolus; Site: right forearm; Delivery: Primary tl3 tubing; 21:57 Follow up: IV Pause: 06/18/2018 21:57; IV Pause Reason: Patient to CT tl3 22:41 Follow up: IV Resume: 06/18/2018 22:41; IV Resume Reason: Patient returned from tl3 Ultrasound 23:22 Follow up: IV Status: Completed infusion; IV Intake: 1000ml tl3 22:49 Drug: Rocephin - (cefTRIAXone) 1 grams {Note: IVP.} Route: IVPB; Infused Over: 5 mins; tl3 Site: right forearm; Delivery: Primary tubing; 22:50 Follow up: IV Status: Completed infusion; IV Intake: 20ml tl3 23:21 Not Given (pt discharged prior to administration): NS 0.9% 1000 ml IV at 125 ml/hr tl3 continuous Intake: 22:50 IV: 20ml; Total: 20ml. tl3 23:21 IV: 1000ml; Total: 1020ml. tl3 23:22 IV: 1000ml; Total: 2020ml. tl3 Outcome: 22:19 Discharge ordered by . jessica 23:22 Discharged to home ambulatory. tl3 23:22 Condition: good 23:22 Discharge instructions given to patient, Instructed on discharge instructions, follow up and referral plans. medication usage, Demonstrated understanding of instructions, follow-up care, medications, Prescriptions given X 3. 23:26 Patient left the ED. tl3 Signatures: Dispatcher [employer] EDMS Tracee Mcneil RN RN aj1 Pancho Greene MD MD cha Sanford, Demi ds1 Jayde Olmos RN RN tl3 Kunal Scott jp3 Corrections: (The following items were deleted from the chart) 22:40 22:27 General: Appears uncomfortable, well groomed, well developed, well nourished, tl3 Behavior is calm, cooperative, appropriate for age, tl3 22:40 22:27 Pain: Complains of pain in suprapubic area and abdomen tl3 tl3 22:40 22:27 Neuro: Level of Consciousness is awake, alert, obeys commands, Oriented to tl3 person, place, time, situation, Appropriate for age tl3 22:40 22:27 Cardiovascular: Patient's skin is warm and dry. tl3 tl3 22:40 22:27 Respiratory: Airway is patent Respiratory effort is even, unlabored, Respiratory tl3 pattern is regular, symmetrical, tl3 22:40 22:27 GI: Reports lower abdominal pain, intolerance of fluids, intolerance of food, tl3 tl3 22:40 22:27 : Urine is clear, tl3 tl3 :40 22:27 EENT: No signs and/or symptoms were reported regarding the EENT system. tl3 tl3 :40 22:27 Derm: No signs and/or symptoms reported regarding the dermatologic system. tl3 tl3 :40 22:27 Musculoskeletal: No signs and/or symptoms reported regarding the musculoskeletal tl3 system. tl3
[2018-06-18] MEDS ORDERED: CEFTRIAXONE/SWI 1gm 1 GM/10 ML SYR ONE (22:47)
--- NOTE | 2018-06-18 23:02 | RAD REPORT ---
EXAM DESCRIPTION: US - Abdomen Exam Limited - 06/18/2018 10:15 pm CLINICAL HISTORY: ABD CRAMPING, COMPARISON: ABDOMINAL EXAM LIMITED dated 11/03/2015; Abdomen Pelvis W Contrast dated 09/04/2017 FINDINGS: The gallbladder demonstrates no gallstones. No pericholecystic fluid or gallbladder wall t hickening. The common bile duct is normal measuring 4 mm. The liver demonstrates no findings of intrahepatic biliary dilatation. IMPRESSION: Unremarkable examination.
--- NOTE | 2018-06-18 23:03 | RAD REPORT ---
EXAM DESCRIPTION: US - 1St Trimest Single 1St Fetus - 06/18/2018 10:15 pm CLINICAL HISTORY: ABD CRAMPING, COMPARISON: TRANSVAG OB dated 05/15/2018TRANSVAG OB dated 05/15/2018; Transvaginal OB dated 06/02/2018 FINDINGS: A single gestational sac is seen within the uterus. The shape of the sac is within normal limits for gestational age. Within the sac is a single pole with crown-rump length of 3.5 cm, c orrelating to estimated gestational age of 10 weeks 3 days. Estimated date of delivery is 01/11/2019. Heart rate is 166 BPM, normal.. The maternal adnexa and ovaries are within normal limits. Normal Doppler blood flow was demonstrated to both ovaries. IMPRESSION: Single live early intrauterine gestation with estimated gestational age of 10 weeks 3 da ys, DYLAN 01/11/2019. No unusual or unexpected finding.
[2018-06-18 23:32] VITALS: TEMP 98.3
[2018-06-18 23:33] VITALS: O2SAT 100
[2018-06-18 23:34] VITALS: BP 107/52
== END 2018-06-18 23:26 | disposition home or self-care (01) ==
LOC: ER 20:45
DX: O23.11 Infections of bladder in pregnancy, first trimester (principal); Z3A.11 11 weeks gestation of pregnancy; O21.8 Other vomiting complicating pregnancy; Z88.6 Allergy status to analgesic agent; Z91.018 Allergy to other foods
CPT/HCPCS: 36415; 76705; 76801; 80048; 80076; 81003; 81025; 83690; 84702; 85025; 86900; 86901; 87086; 87088; 96361; 96374; 96375; 99284; J0696; J2405; J7030

== ENCOUNTER 2018-06-23 10:51 | Emergency (ER) | payer OTHER ==
[2018-06-23 14:02] LABS: Absolute Lymphocytes (CBC) 2.1 K/uL (0.7-4.9); Absolute Monocytes 0.5 K/uL (0.1-1.3); Absolute Neutrophil 5.7 K/uL (1.8-8.0); Basophils % 0.3 % (0-1.3); Eosinophils % 0.8 % (0-4.4); Hematocrit 40.7 % (36.0-45.0); MCH 30.4 pg (27.0-35.0); MCV 88.3 fL (80-100); MPV 8.4 fL (7.6-11.3); Monocytes % 6.1 % (3.3-12.3); RBC Red Blood Cell Count 4.61 M/uL (3.86-4.86)
[2018-06-23 14:10] LABS: Urine Blood 2+ (NEG); Urine Glucose NEGATIVE (NEG); Urine Protein TRACE (NEG); Urine Specific Gravity >1.030 (1.005-1.030)
[2018-06-23 14:36] LABS: BUN Blood Urea Nitrogen 6 mg/dL (7-18); Bicarbonate 25 mmol/L (21-32); Glucose Level 91 mg/dL (74-106); HCG, Quantitative 96660 mIU/mL (1-3); Potassium 3.4 mmol/L (3.5-5.1); Sodium Level 139 mmol/L (136-145)
--- NOTE | 2018-06-23 15:16 | RAD REPORT ---
EXAM DESCRIPTION: US - Transvaginal OB - 06/23/2018 3:06 pm CLINICAL HISTORY: VAGINAL BLEEDING COMPARISON: Transvaginal OB dated 06/02/2018 FINDINGS: A single gestational sac is seen within the uterus. The shape of the sac is within normal limits for gestational age. Within the sac is a single pole with crown-rump length of 4.7 cm, c orrelating to estimated gestational age of 11 weeks 3 days. Estimated date of delivery is 01/09/2019. Heart rate is 155 BPM.. Very small 7 x 5 mm subchorionic bleed is seen. The placenta is not yet developed due to early gestational age. The maternal adnexa and ovaries are within normal limits. Normal Doppler blood flow was demonstrated to both ovaries. IMPRESSION: Single live early intrauterine gestation with estimated gestational age of 11 weeks 3 da ys, DYLAN 01/09/2019. Very small 7 x 5 mm subchorionic bleed is present.
--- NOTE | 2018-06-23 15:28 | EDPHYS ---
Physician Documentation [facility] Name: Suraj Fuentes Age: 27 yrs Sex: Female : 1990 Arrival Date: 06/23/2018 Time: 10:54 Bed 25 Private MD: ED Physician Pancho Greene HPI: 06/23 13:39 This 27 yrs old Female presents to ER via Ambulatory with complaints of cp Vaginal Bleeding, + Preg <12wks, Abdominal Cramping. 13:39 The patient presents to the emergency department with vaginal bleeding, that is light, cp reports using 0 pads or tampons per day. 13:40 Associated signs and symptoms: Pertinent positives: abdominal pain, Pertinent cp negatives: dysuria. 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 - Social history:: Smoking status: Patient/guardian denies using tobacco. - Ebola Screening: : Patient negative for fever greater than or equal to 101.5 degrees Fahrenheit, and additional compatible Ebola Virus Disease symptoms Patient denies exposure to infectious person Patient denies travel to an Ebola-affected area in the 21 days before illness onset. ROS: 13:45 Constitutional: Negative for body aches, chills, fever, poor PO intake. cp 13:45 Eyes: Negative for injury, pain, redness, and discharge. cp 13:45 ENT: Negative for drainage from ear(s), ear pain, sore throat, difficulty swallowing, difficulty handling secretions. 13:45 Cardiovascular: Negative for chest pain, edema, palpitations. 13:45 Respiratory: Negative for cough, shortness of breath, wheezing. 13:45 Abdomen/GI: Positive for abdominal pain, of the right lower quadrant and left lower quadrant, Negative for nausea, vomiting, and diarrhea, anorexia. 13:45 Back: Negative for pain at rest, pain with movement, radiated pain. 13:45 : Positive for vaginal bleeding, Negative for urinary symptoms. 13:45 Skin: Negative for cellulitis, rash. 13:45 Neuro: Negative for dizziness, headache, syncope, near syncope, weakness. 13:45 All other systems are negative. Exam: 13:50 Constitutional: The patient appears in no acute distress, alert, awake, comfortable, cp non-toxic, well developed, well nourished. 13:50 Head/Face: Normocephalic, atraumatic. cp 13:50 Eyes: Periorbital structures: appear normal, Conjunctiva: normal, no exudate, no injection, Sclera: no appreciated abnormality, Lids and lashes: appear normal, bilaterally. 13:50 ENT: External ear(s): are unremarkable, Nose: is normal, Mouth: Lips: moist, Oral mucosa: moist, Posterior pharynx: is normal, airway is patent, no erythema, no exudate. 13:50 Neck: ROM/movement: is normal, is supple, without pain, no range of motions limitations, no meningismus, no nuchal rigidity. 13:50 Chest/axilla: Inspection: normal, Palpation: is normal, no crepitus, no tenderness. 13:50 Cardiovascular: Rate: tachycardic, Rhythm: regular. 13:50 Respiratory: the patient does not display signs of respiratory distress, Respirations: normal, no use of accessory muscles, no retractions, no splinting, no tachypnea, labored breathing, is not present, Breath sounds: are clear throughout, no decreased breath sounds, no stridor, no wheezing. 13:50 Abdomen/GI: Inspection: abdomen appears normal, Bowel sounds: active, all quadrants, Palpation: soft, in all quadrants, nontender, in all quadrants, voluntary guarding, is not appreciated, involuntary guarding, is not appreciated. 13:50 Back: pain, is absent, ROM is normal. 13:50 Skin: cellulitis, is not appreciated, no rash present. 13:50 Neuro: Orientation: to person, place \T\ time. Mentation: lucid, able to follow commands, Cerebellar function: is grossly normal, Motor: moves all fours, strength is normal, Sensation: is normal. Vital Signs: 11:17 BP 124 / 72; Pulse 105; Resp 18; Temp 97.7(O); Pulse Ox 100% on R/A; Weight 70.76 kg; hj Height 5 ft. 2 in. (157.48 cm); Pain 8/10; 14:00 BP 128 / 76; Pulse 97; Resp 15; Pulse Ox 99% on R/A; kr2 15:47 BP 130 / 70; Pulse 99; Resp 16; Pulse Ox 99% on R/A; kr2 11:17 Body Mass Index 28.53 (70.76 kg, 157.48 cm) hj MDM: 13:26 Patient medically screened. cp 14:00 Differential diagnosis: STD, cp 15:25 Data reviewed: vital signs, nurses notes, lab test result(s), radiologic studies, cp ultrasound. 15:25 Counseling: I had a detailed discussion with the patient and/or guardian regarding: the cp historical points, exam findings, and any diagnostic results supporting the discharge/admit diagnosis, lab results, radiology results. ED course: VSS. Results of labs and US reviewed and discussed. Will discharge to home for continued monitoring with instructions for pelvic rest. 06/23 13:39 Order name: Quantitative Hcg; Complete Time: 14:42 cp 06/23 13:39 Order name: Abo/rh Typing; Complete Time: 15:23 cp 06/23 13:39 Order name: Basic Metabolic Panel; Complete Time: 14:42 cp 06/23 15:24 Interpretation: Normal except: K 3.4; CL 109; BUN 6. cp 06/23 13:39 Order name: CBC with Diff; Complete Time: 14:42 cp 06/23 13:45 Order name: Urine Dipstick--Ancillary (enter results); Complete Time: 15:24 bd 06/23 15:24 Interpretation: Normal except: UBLD 2+; UESTR TRACE. cp 06/23 13:45 Order name: Urine --Ancillary (enter results) bd 06/23 13:39 Order name: Urine Test (obtain specimen); Complete Time: 13:49 cp 06/23 13:39 Order name: IV Saline Lock; Complete Time: 13:49 cp 06/23 13:39 Order name: Labs collected and sent; Complete Time: 13:49 cp 06/23 13:39 Order name: NPO; Complete Time: 13:49 cp 06/23 13:39 Order name: Urine Dipstick-Ancillary (obtain specimen); Complete Time: 13:49 cp 06/23 14:44 Order name: Transvaginal Ob; Complete Time: 15:23 cp Administered Medications: 15:47 Drug: Potassium Effervescent Tablet 25 mEq Route: PO; kr2 15:52 Follow up: Response: No adverse reaction kr2 Point of Care Testing: Urine : 15:49 hCG Reading: Positive; kr2 Disposition: 06/24 07:21 Co-signature as Attending Physician, Pancho Greene MD I agree with the assessment and jessica plan of care. Disposition: 06/23/18 15:27 Discharged to Home. Impression: Threatened . - Condition is Stable. - Discharge Instructions: Vaginal Bleeding During , First Trimester, First Trimester of , Pelvic Rest. - Prescriptions for Vitamin 27- 0.8 mg Oral Tablet - take 1 tablet by ORAL route once daily; 60 tablet. - Medication Reconciliation Form, Thank You Letter, Antibiotic Education, Prescription Opioid Use form. - Follow up: Private Physician; When: 1 week; Reason: Recheck today's complaints. - Problem is new. - Symptoms are unchanged. Signatures: Dispatcher [employer] EDIA Pancho Greene MD MD cha Joaquin, Henry RN RN Pancho Soriano PA PA cp Reaves, Karey, RN RN kr2 Corrections: (The following items were deleted from the chart) 06/23 15:29 15:27 06/23/2018 15:27 Discharged to Home. Impression: related conditions, cp unspecified, first trimesterOther specified abnormal uterine and vaginal bleeding. Condition is Stable. Forms are Medication Reconciliation Form, Thank You Letter, Antibiotic Education, Prescription Opioid Use. Follow up: Private Physician; When: 1 week; Reason: Recheck today's complaints. Problem is new. Symptoms are unchanged. cp 15:52 15:29 06/23/2018 15:27 Discharged to Home. Impression: Threatened . Condition kr2 is Stable. Discharge Instructions: Vaginal Bleeding During , First Trimester, First Trimester of , Pelvic Rest. Forms are Medication Reconciliation Form, Thank You Letter, Antibiotic Education, Prescription Opioid Use. Follow up: Private Physician; When: 1 week; Reason: Recheck today's complaints. Problem is new. Symptoms are unchanged. cp
--- NOTE | 2018-06-23 15:28 | ER ---
Nurse's Notes [facility] Name: Suraj Fuentes Age: 27 yrs Sex: Female : 1990 Arrival Date: 06/23/2018 Time: 10:54 Bed 25 Private MD: Diagnosis: Threatened Presentation: 06/23 11:13 Presenting complaint: Patient states: LMP- 04/08/18; i started having vaginal bleeding hj this morning and cramping and a lot of pain; denies nausea and vomiting; i haven't felt the baby is moving; denies fever and chills; denies trauma to the abdomen;. Transition of care: patient was not received from another setting of care. Onset of symptoms was June 23, 2018. Risk Assessment: Do you want to hurt yourself or someone else? Patient reports no desire to harm self or others. Initial Sepsis Screen: Does the patient meet any 2 criteria? No. Patient's initial sepsis screen is negative. Does the patient have a suspected source of infection? No. Patient's initial sepsis screen is negative. Care prior to arrival: None. 11:13 Method Of Arrival: Ambulatory 11:13 Acuity: SHAW 3 hj Triage Assessment: 11:17 General: Appears in no apparent distress. uncomfortable, Behavior is calm, cooperative, hj appropriate for age. Pain: Complains of pain in abdomen Pain currently is 8 out of 10 on a pain scale. : Reports vaginal bleeding that is. 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 - Social history:: Smoking status: Patient/guardian denies using tobacco. - Ebola Screening: : Patient negative for fever greater than or equal to 101.5 degrees Fahrenheit, and additional compatible Ebola Virus Disease symptoms Patient denies exposure to infectious person Patient denies travel to an Ebola-affected area in the 21 days before illness onset. Screenin:16 Abuse screen: Denies threats or abuse. Denies injuries from another. Nutritional hj screening: No deficits noted. Tuberculosis screening: No symptoms or risk factors identified. Fall Risk None identified. Assessment: 13:33 Obstetrical Assessment: General assessment: awake and alert, anxious. General: Appears kr2 in no apparent distress. uncomfortable, well developed, well nourished, Behavior is cooperative, appropriate for age, anxious. Pain: Complains of pain in abdomen and pelvis Pain currently is 8 out of 10 on a pain scale. Quality of pain is described as crampy, Pain began this morning Is continuous, Alleviated by nothing. Neuro: Level of Consciousness is awake, alert, obeys commands, Oriented to person, place, time, situation. Cardiovascular: Capillary refill < 3 seconds in bilateral fingers Patient's skin is warm and dry. Respiratory: Airway is patent Respiratory effort is even, unlabored, Respiratory pattern is regular, symmetrical. GI: Abdomen is round non-distended, Bowel sounds present X 4 quads. : Urine is clear, ham, patient reports she is taking antibiotics for a UTI. : Reports vaginal bleeding that is bright red, light flow, since this morning. EENT: Oral mucosa is moist. Derm: Skin is intact, is healthy with good turgor, Skin is pink, warm \T\ dry. Musculoskeletal: Circulation, motion, and sensation intact. 14:30 Reassessment: Patient appears in no apparent distress at this time. Patient and/or kr2 family updated on plan of care and expected duration. Pain level reassessed. Patient is alert, oriented x 3, equal unlabored respirations, skin warm/dry/pink. Patient denies pain at this time. 15:48 Reassessment: Patient appears in no apparent distress at this time. Patient and/or kr2 family updated on plan of care and expected duration. Pain level reassessed. Patient is alert, oriented x 3, equal unlabored respirations, skin warm/dry/pink. Patient denies pain at this time. Vital Signs: 11:17 BP 124 / 72; Pulse 105; Resp 18; Temp 97.7(O); Pulse Ox 100% on R/A; Weight 70.76 kg; hj Height 5 ft. 2 in. (157.48 cm); Pain 8/10; 14:00 BP 128 / 76; Pulse 97; Resp 15; Pulse Ox 99% on R/A; kr2 15:47 BP 130 / 70; Pulse 99; Resp 16; Pulse Ox 99% on R/A; kr2 11:17 Body Mass Index 28.53 (70.76 kg, 157.48 cm) Vitals: 15:50 Heart Tones done by radiographic technologist via vaginal ultrasound . kr2 ED Course: 10:54 Patient arrived in ED. rg4 11:16 Triage completed. hj 11:17 Arm band placed on right wrist. hj 13:26 Pancho Pryor PA is PHCP. cp 13:26 Pancho Greene MD is Attending Physician. cp 13:27 Bushra Diaz, ALFONZO is Primary Nurse. kr2 13:39 Patient has correct armband on for positive identification. Bed in low position. Call kr2 light in reach. Side rails up X 1. Pulse ox on. NIBP on. Door closed. Head of bed elevated. 13:46 Inserted saline lock: 20 gauge in left antecubital area, using aseptic technique. Blood kr2 collected. 15:04 Ultrasound completed. lc3 15:06 US Transvaginal Ob In Process Unspecified. EDMS 15:49 No provider procedures requiring assistance completed. IV discontinued, intact, kr2 bleeding controlled, No redness/swelling at site. Pressure dressing applied. Administered Medications: 15:47 Drug: Potassium Effervescent Tablet 25 mEq Route: PO; kr2 15:52 Follow up: Response: No adverse reaction kr2 Point of Care Testing: Urine : 15:49 hCG Reading: Positive; kr2 Outcome: 15:27 Discharge ordered by MD. cp 15:49 Discharged to home ambulatory, with family. kr2 15:49 Condition: good 15:49 Discharge instructions given to patient, family, Instructed on discharge instructions, follow up and referral plans. medication usage, Demonstrated understanding of instructions, follow-up care, medications, Prescriptions given X 1. 15:52 Patient left the ED. kr2 Signatures: Dispatcher [employer] EDMS Jared Caldera RN RN Pancho Pryor PA PA cp Shelia Ding Rubi rg4 Bushra Diaz, RN RN kr2 Corrections: (The following items were deleted from the chart) 11:19 11:17 Pulse 105bpm; Resp 18bpm; Pulse Ox 100% RA; Temp 97.7F Oral; 70.76 kg; Height 5 hj ft. 2 in.; BMI: 28.5; Pain 8/10; hj 13:40 13:33 : Reports vaginal bleeding that is bright red, moderate flow, since this kr2 morning kr2
[2018-06-23] MEDS ORDERED: POTASSIUM 25 MEQ EFFERV TAB ONE (15:40)
[2018-06-23] MEDS ORDERED: POTASSIUM CL SA 10 MEQ TAB PO ONE (15:45)
[2018-06-23 16:00] VITALS: TEMP 97.7
[2018-06-23 16:01] VITALS: O2SAT 99
[2018-06-23 16:02] VITALS: BP 130/70
== END 2018-06-23 15:52 | disposition home or self-care (01) ==
LOC: ER 10:51
DX: O20.0 Threatened abortion (principal); Z88.6 Allergy status to analgesic agent; Z91.018 Allergy to other foods
CPT/HCPCS: 36415; 76817; 80048; 81003; 81025; 84702; 85025; 86900; 86901; 99284

== ENCOUNTER 2018-06-26 15:52 | Emergency (ER) | payer MEDICAID, OTHER ==
[2018-06-26] MEDS ORDERED: PROMETHAZINE 25 MG/ML VIAL ONE ×2 (16:34→18:26)
[2018-06-26] MEDS ORDERED: NA CHLORIDE 0.9% 1,000 ML ONE ×2 (16:34→19:59)
[2018-06-26 16:55] LABS: Absolute Monocytes 0.4 K/uL (0.1-1.3); Basophils % 0.2 % (0-1.3); Eosinophils % 0.4 % (0-4.4); Hematocrit 40.8 % (36.0-45.0); Lymphocytes % 11.7 % (15.3-44.8); MCH 30.7 pg (27.0-35.0); MCV 87.3 fL (80-100); MPV 8.6 fL (7.6-11.3); RBC Red Blood Cell Count 4.67 M/uL (3.86-4.86)
[2018-06-26 17:04] LABS: BUN Blood Urea Nitrogen 4 mg/dL (7-18); Bicarbonate 26 mmol/L (21-32); Glucose Level 97 mg/dL (74-106); Potassium 3.9 mmol/L (3.5-5.1); Sodium Level 141 mmol/L (136-145)
[2018-06-26 17:52] LABS: Urine Blood NEGATIVE (NEG); Urine Glucose NEGATIVE (NEG); Urine Protein 1+ (NEG); Urine Specific Gravity 1.025 (1.005-1.030)
[2018-06-26 18:08] LABS: Urine Bacteria <20 /HPF (<20); Urine RBC <5 /HPF (NONE SEEN)
[2018-06-26 18:09] LABS: Urine Culture Reflex Order NOT NEEDED; Urine Trichomonas PRESENT (NONE SEEN)
[2018-06-26] MEDS ORDERED: ONDANSETRON 4 MG/2 ML VIAL ONE ×2 (18:59→19:34)
[2018-06-26] MEDS ORDERED: metroNIDAZOLE 500 MG TABLET ONE (19:47)
--- NOTE | 2018-06-26 21:03 | ER ---
Nurse's Notes [facility] Name: Suraj Fuentes Age: 27 yrs Sex: Female : 1990 Arrival Date: 06/26/2018 Time: 15:56 Bed 16 Private MD: Diagnosis: Vomiting of , unspecified;Trichomoniasis Presentation: 06/26 16:00 Presenting complaint: EMS states: pt. is A \T\ O x 4, c/o of lower abdominal pain 09/03. rb1 Hasn't had a bowel movement for a week. Has had two previous pregnancies without difficulties. Allergic to oranges and Ibuprofen. Surgeries Appy. BP 106/67, P 95, O2 95% on RA, T 97.8, BS 97. Medications: vitamins and Zofran. Transition of care: patient was not received from another setting of care. Onset of symptoms is unknown. Risk Assessment: Do you want to hurt yourself or someone else? Patient reports no desire to harm self or others. Initial Sepsis Screen: Does the patient meet any 2 criteria? No. Patient's initial sepsis screen is negative. Does the patient have a suspected source of infection? No. Patient's initial sepsis screen is negative. Care prior to arrival: Medication(s) given: zofran 2 mg IM administered by EMS. 16:00 Method Of Arrival: EMS: [facility] 16:00 Acuity: SHAW 3 rb1 Triage Assessment: 15:56 General: Appears uncomfortable, Behavior is calm, cooperative, Denies fever. Pain: rb1 Complains of pain in suprapubic area, right lower quadrant and left lower quadrant Pain radiates to rectum Pain currently is 10 out of 10 on a pain scale. Neuro: Level of Consciousness is awake, alert, obeys commands, Oriented to person, place, time, situation. Cardiovascular: Capillary refill < 3 seconds is brisk in bilateral fingers. Respiratory: Airway is patent Respiratory effort is even, unlabored, Respiratory pattern is regular, symmetrical. GI: Reports constipation, nausea, vomiting. : No signs and/or symptoms were reported regarding the genitourinary system. Derm: Skin is pink, warm \T\ dry. 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 - Social history:: Smoking status: Patient/guardian denies using tobacco. - Ebola Screening: : Patient negative for fever greater than or equal to 101.5 degrees Fahrenheit, and additional compatible Ebola Virus Disease symptoms. Screenin:56 Abuse screen: Denies threats or abuse. Nutritional screening: Has had N/V for 3 or more rb1 days. Tuberculosis screening: No symptoms or risk factors identified. Fall Risk None identified. Assessment: 15:56 General: See triage assessment. rb1 16:49 Reassessment: Patient appears in no apparent distress at this time. Patient and/or rb1 family updated on plan of care and expected duration. Pain level reassessed. Patient is alert, oriented x 3, equal unlabored respirations, skin warm/dry/pink. 17:48 Reassessment: Patient appears in no apparent distress at this time. No changes from rb1 previously documented assessment. Family at bedside. 18:43 Reassessment: Patient appears in no apparent distress at this time. Patient and/or rb1 family updated on plan of care and expected duration. Pain level reassessed. Patient is alert, oriented x 3, equal unlabored respirations, skin warm/dry/pink. pt. is still vomiting. provider notified. 19:11 Reassessment: pt family came out asking to speak to ERP. pt given ice chips to start PO ak1 challenge prior to PO antibiotics to be given. will continue to monitor. Vital Signs: 16:00 BP 109 / 60; Pulse 96; Resp 20; Temp 98.5(O); Pulse Ox 96% on R/A; Weight 75.3 kg; rb1 Height 5 ft. 2 in. (157.48 cm); Pain 10/10; 17:00 BP 133 / 82; Pulse 100; Resp 16; Pulse Ox 100% on R/A; rb1 19:13 BP 113 / 56; Pulse 96; Resp 18; Temp 98.5; Pulse Ox 100% on R/A; ak1 16:00 Body Mass Index 30.36 (75.30 kg, 157.48 cm) rb1 Vitals: 17:57 Heart Tones 132 bpm. rb1 ED Course: 15:56 Patient arrived in ED. ss 15:56 Arm band placed on left wrist. rb1 15:56 Patient has correct armband on for positive identification. Placed in gown. Bed in low rb1 position. Call light in reach. Side rails up X2. Pulse ox on. NIBP on. Warm blanket given. 15:58 Christian Avendaño, MARY CARMEN is PHCP. pm1 15:59 Sharath Rod MD is Attending Physician. pm1 16:01 Dotty Chacon, ALFONZO is Primary Nurse. rb1 16:07 Triage completed. rb1 16:35 Inserted saline lock: 22 gauge in left antecubital area, using aseptic technique. Blood rb1 collected. 17:15 Urine collected: clean catch specimen, clear, ham colored. jp3 17:48 Urine Microscopic Only Sent. jp3 17:48 Urine Culture Sent. jp3 19:00 Report given to ALFONZO Brush. rb1 21:09 No provider procedures requiring assistance completed. IV discontinued, intact, ak1 bleeding controlled, No redness/swelling at site. Pressure dressing applied. Administered Medications: 16:35 Drug: NS 0.9% 1000 ml Route: IV; Rate: 1000 ml; Site: left antecubital; rb1 17:44 Follow up: IV Status: Completed infusion rb1 19:19 Follow up: IV Status: Completed infusion ak1 16:35 Drug: Phenergan 12.5 mg Route: IVP; Site: left antecubital; rb1 17:00 Follow up: Response: No adverse reaction; Nausea is decreased rb1 18:26 Drug: Phenergan 12.5 mg Route: IVP; Site: left antecubital; rb1 18:45 Follow up: Response: No adverse reaction; Nausea unchanged; provider notified rb1 19:00 Drug: Zofran 4 mg Route: IVP; Site: left antecubital; rb1 19:19 Follow up: Response: No adverse reaction ak1 19:39 Drug: Zofran 4 mg Route: IVP; Site: left antecubital; ak1 19:39 Follow up: Response: No adverse reaction ak1 19:47 Drug: Flagyl 2 grams Route: PO; ak1 21:03 Follow up: Response: No adverse reaction ak1 19:59 Drug: NS 0.9% 1000 ml Route: IV; Rate: 1 bolus; Site: left antecubital; ak1 21:02 Follow up: IV Status: Completed infusion ak1 Intake: Output: 16:10 Gastric: 175ml (Emesis); Total: 175ml. rb1 16:33 Gastric: 75ml (Emesis); Total: 250ml. rb1 18:00 Gastric: 125ml (Emesis); Total: 375ml. rb1 Outcome: 21:03 Discharge ordered by MD. pm1 21:07 Discharged to home ambulatory, with family. ak1 21:07 Condition: pt and family informed to call Dr. Gross office first thing in the morning for follow up appointment. pt verbalized understanding to call at opening of office. 21:07 Discharge instructions given to patient, family, Instructed on discharge instructions, follow up and referral plans. no drinking with medication, no driving heavy equipment, medication usage, Demonstrated understanding of instructions, follow-up care, medications, Prescriptions given X 2. 21:12 Patient left the ED. ak1 Signatures: Rita Meza RN RN Ham Lopes RN RN ak1 Dotty Chacon RN RN rb1 Christian Avendaño, MARY CARMEN SLATE ROOFER HELPER pm1 Kunal Scott jp3
--- NOTE | 2018-06-26 21:03 | EDPHYS ---
Physician Documentation [facility] Name: Suraj Fuentes Age: 27 yrs Sex: Female : 1990 Arrival Date: 06/26/2018 Time: 15:56 Bed 16 Private MD: ED Physician Sharath Rod HPI: 06/26 18:00 This 27 yrs old Female presents to ER via EMS with complaints of Vomiting. pm1 18:00 The patient presents to the emergency department with nausea, vomiting. Onset: The pm1 symptoms/episode began/occurred today. Possible causes: , out of medications. The symptoms are aggravated by nothing. The symptoms are alleviated by prescription meds. Associated signs and symptoms: Pertinent positives: constipation, dysuria, Pertinent negatives: abdominal pain, fever, vaginal discharge. Severity of symptoms: Pain is currently a 0 / 10. The patient has experienced similar episodes in the past, multiple times. The patient has been recently seen at the [facility] Emergency Department, this week. Patient reports constipation for the past few days, feels like BM is about to come out. 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 - Social history:: Smoking status: Patient/guardian denies using tobacco. - Ebola Screening: : Patient negative for fever greater than or equal to 101.5 degrees Fahrenheit, and additional compatible Ebola Virus Disease symptoms. ROS: 18:00 Constitutional: Negative for fever, chills, and weight loss, Eyes: Negative for injury, pm1 pain, redness, and discharge, ENT: Negative for injury, pain, and discharge, Neck: Negative for injury, pain, and swelling, Cardiovascular: Negative for chest pain, palpitations, and edema, Respiratory: Negative for shortness of breath, cough, wheezing, and pleuritic chest pain. 18:00 Back: Negative for injury and pain. 18:00 MS/Extremity: Negative for injury and deformity, Skin: Negative for injury, rash, and discoloration, Neuro: Negative for headache, weakness, numbness, tingling, and seizure. 18:00 Abdomen/GI: Positive for nausea and vomiting, constipation, Negative for diarrhea. 18:00 : Positive for burning with urination, Negative for vaginal bleeding, vaginal discharge. Exam: 18:00 Constitutional: This is a well developed, well nourished patient who is awake, alert, pm1 and in no acute distress. Head/Face: Normocephalic, atraumatic. Eyes: Pupils equal round and reactive to light, extra-ocular motions intact. Lids and lashes normal. Conjunctiva and sclera are non-icteric and not injected. Cornea within normal limits. Periorbital areas with no swelling, redness, or edema. ENT: Nares patent. No nasal discharge, no septal abnormalities noted. Tympanic membranes are normal and external auditory canals are clear. Oropharynx with no redness, swelling, or masses, exudates, or evidence of obstruction, uvula midline. Mucous membranes moist. Neck: Trachea midline, no thyromegaly or masses palpated, and no cervical lymphadenopathy. Supple, full range of motion without nuchal rigidity, or vertebral point tenderness. No Meningismus. Chest/axilla: Normal chest wall appearance and motion. Nontender with no deformity. No lesions are appreciated. Cardiovascular: Regular rate and rhythm with a normal S1 and S2. No gallops, murmurs, or rubs. Normal PMI, no JVD. No pulse deficits. Respiratory: Lungs have equal breath sounds bilaterally, clear to auscultation and percussion. No rales, rhonchi or wheezes noted. No increased work of breathing, no retractions or nasal flaring. Abdomen/GI: Soft, non-tender, with normal bowel sounds. No distension or tympany. No guarding or rebound. No evidence of tenderness throughout. Back: No spinal tenderness. No costovertebral tenderness. Full range of motion. Skin: Warm, dry with normal turgor. Normal color with no rashes, no lesions, and no evidence of cellulitis. MS/ Extremity: Pulses equal, no cyanosis. Neurovascular intact. Full, normal range of motion. 18:00 Neuro: Orientation: is normal, Motor: moves all fours. Vital Signs: 16:00 BP 109 / 60; Pulse 96; Resp 20; Temp 98.5(O); Pulse Ox 96% on R/A; Weight 75.3 kg; rb1 Height 5 ft. 2 in. (157.48 cm); Pain 10/10; 17:00 BP 133 / 82; Pulse 100; Resp 16; Pulse Ox 100% on R/A; rb1 19:13 BP 113 / 56; Pulse 96; Resp 18; Temp 98.5; Pulse Ox 100% on R/A; ak1 16:00 Body Mass Index 30.36 (75.30 kg, 157.48 cm) rb1 MDM: 16:00 Patient medically screened. pm1 16:32 Data reviewed: vital signs. pm1 16:32 ED course: Patient with IUP ultrasound on 06/23/2018. Patient here with complaints of pm1 vomiting. Patient ran out of her antiemetics. No vaginal bleeding or pelvic pain. 19:44 Data interpreted: Pulse oximetry: on room air is 100 %. Interpretation: normal. pm1 Counseling: I had a detailed discussion with the patient and/or guardian regarding: the historical points, exam findings, and any diagnostic results supporting the discharge/admit diagnosis, lab results, the need for outpatient follow up, to return to the emergency department if symptoms worsen or persist or if there are any questions or concerns that arise at home. 19:45 ED course: Patient with BM in the ER. pm1 06/26 16:08 Order name: Basic Metabolic Panel; Complete Time: 17:42 pm1 06/26 16:08 Order name: CBC with Diff; Complete Time: 17:42 pm1 06/26 17:42 Order name: Urine Culture pm1 06/26 17:42 Order name: Urine Microscopic Only; Complete Time: 18:20 pm1 06/26 17:51 Order name: Urine Dipstick--Ancillary (enter results); Complete Time: 18:20 [facility] [place] 06/26 17:51 Order name: Urine --Ancillary (enter results); Complete Time: 18:20 [facility] [place] 06/26 16:08 Order name: IV Saline Lock; Complete Time: 16:44 pm1 06/26 16:08 Order name: Labs collected and sent; Complete Time: 16:44 pm1 06/26 16:08 Order name: NPO; Complete Time: 16:43 pm1 06/26 16:08 Order name: Urine Dipstick-Ancillary (obtain specimen); Complete Time: 17:48 pm1 06/26 16:08 Order name: FHT's; Complete Time: 17:57 pm1 Administered Medications: 16:35 Drug: NS 0.9% 1000 ml Route: IV; Rate: 1000 ml; Site: left antecubital; rb1 17:44 Follow up: IV Status: Completed infusion rb1 19:19 Follow up: IV Status: Completed infusion ak1 16:35 Drug: Phenergan 12.5 mg Route: IVP; Site: left antecubital; rb1 17:00 Follow up: Response: No adverse reaction; Nausea is decreased rb1 18:26 Drug: Phenergan 12.5 mg Route: IVP; Site: left antecubital; rb1 18:45 Follow up: Response: No adverse reaction; Nausea unchanged; provider notified rb1 19:00 Drug: Zofran 4 mg Route: IVP; Site: left antecubital; rb1 19:19 Follow up: Response: No adverse reaction ak1 19:39 Drug: Zofran 4 mg Route: IVP; Site: left antecubital; ak1 19:39 Follow up: Response: No adverse reaction ak1 19:47 Drug: Flagyl 2 grams Route: PO; ak1 21:03 Follow up: Response: No adverse reaction ak1 19:59 Drug: NS 0.9% 1000 ml Route: IV; Rate: 1 bolus; Site: left antecubital; ak1 21:02 Follow up: IV Status: Completed infusion ak1 Disposition: 06/27 10:58 Co-signature as Attending Physician, Sharath Rod MD I agree with the assessment and kdr plan of care. Disposition: 06/26/18 21:03 Discharged to Home. Impression: Vomiting of , unspecified, Trichomoniasis. - Condition is Stable. - Discharge Instructions: Morning Sickness, [id number], Nausea and Vomiting, Adult, Trichomoniasis. - Prescriptions for Zofran 4 mg Oral Tablet - take 1 tablet by ORAL route every 8 hours As needed ODT; 20 tablet. Phenergan 25 mg Rectal Suppository - insert 1 suppository by RECTAL route every 6 hours As needed; 12 suppository. - Medication Reconciliation Form, Thank You Letter, Antibiotic Education form. - Follow up: Emergency Department; When: As needed; Reason: Worsening of condition. Follow up: Private Physician; When: 2 - 3 days; Reason: Recheck today's complaints, Continuance of care, Re-evaluation by your physician. - Problem is new. - Symptoms have improved. Signatures: Dispatcher [employer] EDMS Sharath Rod MD MD kdr Krenek, Amber RN RN ak1 Dotty Chacon RN RN rb1 Christian Avendaño, TRUCK SALES MANAGER TRUCK SALES MANAGER pm1 Corrections: (The following items were deleted from the chart) 06/26 21:12 21:03 06/26/2018 21:03 Discharged to Home. Impression: Vomiting of , ak1 unspecified; Trichomoniasis. Condition is Stable. Forms are Medication Reconciliation Form, Thank You Letter, Antibiotic Education, Prescription Opioid Use. Follow up: Emergency Department; When: As needed; Reason: Worsening of condition. Follow up: Private Physician; When: 2 - 3 days; Reason: Recheck today's complaints, Continuance of care, Re-evaluation by your physician. Problem is new. Symptoms have improved. pm1
[2018-06-26 21:16] VITALS: TEMP 98.5
[2018-06-26 21:17] VITALS: O2SAT 100
[2018-06-26 21:18] VITALS: BP 113/56
== END 2018-06-26 21:12 | disposition home or self-care (01) ==
LOC: ER 15:52
DX: O21.9 Vomiting of pregnancy, unspecified (principal); A59.9 Trichomoniasis, unspecified; Z3A.00 Weeks of gestation of pregnancy not specified
CPT/HCPCS: 36415; 80048; 81003; 81015; 81025; 85025; 87077; 87086; 87088; 87186; 96361; 96374; 96375; 99284; J2405; J2550; J7030

== ENCOUNTER 2018-07-04 20:37 | Observation (INO) | payer MEDICAID ==
[2018-07-04] MEDS ORDERED: ONDANSETRON 4 MG/2 ML VIAL ONE ×2 (21:04→21:48)
[2018-07-04] MEDS ORDERED: NA CHLORIDE 0.9% 1,000 ML ONE ×3 (21:04→22:08)
[2018-07-04] MEDS ORDERED: FAMOTIDINE 20 MG/2 ML VIAL IV ONE (21:04)
[2018-07-04 21:28] LABS: Absolute Lymphocytes (CBC) 1.4 K/uL (0.7-4.9); Absolute Monocytes 0.5 K/uL (0.1-1.3); Absolute Neutrophil 8.3 K/uL (1.8-8.0); Basophils % 0.2 % (0-1.3); Eosinophils % 0.2 % (0-4.4); Hematocrit 41.2 % (36.0-45.0); Lymphocytes % 14.1 % (15.3-44.8); MCH 30.8 pg (27.0-35.0); MCV 86.4 fL (80-100); MPV 8.3 fL (7.6-11.3); Monocytes % 4.5 % (3.3-12.3); RBC Red Blood Cell Count 4.77 M/uL (3.86-4.86)
[2018-07-04 21:39] LABS: ALT/SGPT 20 U/L (12-78); AST/SGOT 13 U/L (15-37); Albumin 3.7 g/dL (3.4-5.0); Alkaline Phosphatase 50 U/L (45-117); Amylase Level 45 U/L (25-115); BUN Blood Urea Nitrogen 4 mg/dL (7-18); Bicarbonate 24 mmol/L (21-32); Bilirubin Direct 0.1 mg/dL (0-0.2); Bilirubin Total 0.6 mg/dL (0.2-1.0); Glucose Level 103 mg/dL (74-106); Lipase 77 U/L (73-393); Potassium 3.5 mmol/L (3.5-5.1); Protein, Total 7.6 g/dL (6.4-8.2); Sodium Level 140 mmol/L (136-145)
[2018-07-04] MEDS ORDERED: NA CHLORIDE 0.9% 100 ML IV ONE (22:08)
[2018-07-04] MEDS ORDERED: PROMETHAZINE 25 MG/ML VIAL ONE (22:08)
[2018-07-04 22:54] LABS: Urine Mucus 2+ /HPF (NONE SEEN)
[2018-07-04 22:55] LABS: Urine Blood NEGATIVE (NEG); Urine Glucose NEGATIVE (NEG); Urine Protein TRACE (NEG); Urine Specific Gravity >1.030 (1.005-1.030)
[2018-07-04 22:55] LABS: Urine Bacteria <20 /HPF (<20); Urine Culture Reflex Order NOT NEEDED; Urine RBC <5 /HPF (NONE SEEN)
--- NOTE | 2018-07-04 23:15 | ER ---
Nurse's Notes [facility] Name: Suraj Fuentes Age: 27 yrs Sex: Female : 1990 Arrival Date: 07/04/2018 Time: 20:38 Bed 25 Private MD: Diagnosis: Hyperemesis gravidarum with metabolic disturbance Presentation: 07/04 20:47 Presenting complaint: Patient states: she has been vomiting and having lower abdominal bb pain since last night pt is 13 weeks and has had prior episodes of intractable vomiting. Transition of care: patient was not received from another setting of care. Onset of symptoms was July 03, 2018. Risk Assessment: Do you want to hurt yourself or someone else? Patient reports no desire to harm self or others. Initial Sepsis Screen: Does the patient meet any 2 criteria? No. Patient's initial sepsis screen is negative. Does the patient have a suspected source of infection? No. Patient's initial sepsis screen is negative. Care prior to arrival: None. 20:47 Method Of Arrival: Wheelchair bb 20:47 Acuity: SHAW 3 bb SILK CONDITIONER: 20:50 Verified bb Historical: - Allergies: 20:50 Ibuprofen; bb 20:50 ORANGES; bb - Home Meds: 20:50 Vitamin Oral [Active]; Zofran Oral [Active]; Phenergan Supp Rectal [Active]; bb Diclegis oral oral [Active]; - PMHx: 20:50 None; bb - PSHx: 20:50 Appendectomy; bb - Immunization history:: Adult Immunizations up to date. - Social history:: Smoking status: Patient/guardian denies using tobacco, Patient/guardian denies using alcohol, street drugs. - Ebola Screening: : No symptoms or risks identified at this time. Screenin:49 Abuse screen: Denies threats or abuse. Denies injuries from another. Nutritional mg2 screening: No deficits noted. Tuberculosis screening: No symptoms or risk factors identified. Fall Risk IV access (20 points). Assessment: 20:50 General: Appears uncomfortable, Behavior is cooperative. Pain: Complains of pain in mg2 lower abdomen Pain does not radiate. Pain currently is 9 out of 10 on a pain scale. Quality of pain is described as aching, Pain began gradually. Neuro: Level of Consciousness is awake, alert, obeys commands, Oriented to person, place, time, situation. Cardiovascular: Capillary refill < 3 seconds Patient's skin is warm and dry. Respiratory: Airway is patent Respiratory effort is even, unlabored, Respiratory pattern is regular, symmetrical. GI: Pt is actively vomiting Reports lower abdominal pain, vomiting. : No signs and/or symptoms were reported regarding the genitourinary system. EENT: No signs and/or symptoms were reported regarding the EENT system. Derm: Skin is intact, Skin is pink, warm \T\ dry. normal. Musculoskeletal: Circulation, motion, and sensation intact. 22:20 Reassessment: Patient appears in no apparent distress at this time. Patient and/or mg2 family updated on plan of care and expected duration. Pain level reassessed. Patient is alert, oriented x 3, equal unlabored respirations, skin warm/dry/pink. patient refused urine catheterization. said she will try to give urine after the iv fluid. 23:16 Reassessment: Patient and/or family updated on plan of care and expected duration. Pain mg2 level reassessed. Patient is alert, oriented x 3, equal unlabored respirations, skin warm/dry/pink. po challenge not tolerated. patient advised for admission. agreed. Vital Signs: 20:50 BP 121 / 63; Pulse 94; Resp 18 S; Temp 98.7(O); Pulse Ox 95% on R/A; Weight 75.3 kg bb (R); Height 5 ft. 2 in. (157.48 cm) (R); Pain 9/10; 21:16 BP 119 / 81 Supine; mg2 21:16 BP 128 / 83 Sitting; mg2 21:16 BP 128 / 74 Standing; mg2 22:19 BP 132 / 87; Pulse 89; Resp 18; Pulse Ox 100% on R/A; Pain 3/10; mg2 23:16 BP 112 / 82; Pulse 72; Resp 18; Pulse Ox 100% on R/A; Pain 0/10; mg2 20:50 Body Mass Index 30.36 (75.30 kg, 157.48 cm) bb Vitals: 22:27 Heart Tones 110. mg2 ED Course: 20:38 Patient arrived in ED. es 20:45 Pancho Pryor PA is PHCP. cp 20:45 Crobin Gross MD is Attending Physician. cp 20:48 Triage completed. bb 20:50 Arm band placed on Patient placed in an exam room, on a stretcher, on pulse oximetry. bb Family accompanied patient. 20:51 Patient has correct armband on for positive identification. Bed in low position. Side mg2 rails up X2. Pulse ox on. NIBP on. Door closed. Warm blanket given. 20:56 Jayde Olmos RN is Primary Nurse. tl3 20:56 Inserted saline lock: 20 gauge in right forearm, using aseptic technique. Blood tl3 collected. 21:10 No provider procedures requiring assistance completed. tl3 23:14 Michael Carson MD is Hospitalizing Provider. cp 23:47 Patient admitted, IV remains in place. mg2 Administered Medications: 21:06 Drug: Zofran 4 mg Route: IVP; Infused Over: 2 mins; Site: right forearm; tl3 21:47 Follow up: Response: No adverse reaction; Nausea unchanged; Vomiting unchanged mg2 21:06 Drug: Pepcid 20 mg Route: IVP; Infused Over: 2 mins; Site: right forearm; tl3 21:47 Follow up: Response: No adverse reaction mg2 21:07 Drug: NS 0.9% 1000 ml Route: IV; Rate: 1 bolus; Site: right forearm; Delivery: Primary tl3 tubing; 21:47 Drug: Zofran 4 mg Route: IVP; Site: left forearm; mg2 22:27 Follow up: Response: No adverse reaction; Nausea is decreased mg2 21:56 Drug: NS 0.9% 1000 ml Route: IV; Rate: 1 bolus; Site: left forearm; mg2 22:18 Drug: Phenergan 25 mg Route: IVP; Site: right forearm; mg2 23:17 Follow up: Response: No adverse reaction; Pain is increased; Nausea is decreased mg2 22:35 Drug: NS 0.9% 1000 ml Route: IV; Rate: 125 ml/hr; Site: right forearm; mg2 23:17 Follow up: Response: No adverse reaction; IV Status: Infusion continued upon admission mg2 Outcome: 23:15 Decision to Hospitalize by Provider. cp 23:47 Admitted to L \T\ D, accompanied by nurse, via wheelchair, room 270, with chart, Report mg2 called to ALFONZO Albarran 23:47 Condition: stable 23:47 Instructed on the need for admit, Demonstrated understanding of instructions. 07/05 00:02 Patient left the ED. mg2 Signatures: Barbie Mckeon Brenda, RN RN bb Pancho Pryor PA PA cp Lowrey, Tammy, RN RN tl3 Tien Juarez, RN RN mg2
--- NOTE | 2018-07-04 23:16 | EDPHYS ---
Physician Documentation [facility] Name: Suraj Fuentes Age: 27 yrs Sex: Female : 1990 Arrival Date: 07/04/2018 Time: 20:38 Bed 25 Private MD: ED Physician Corbin Gross HPI: 07/04 20:59 This 27 yrs old Female presents to ER via Wheelchair with complaints of cp Vomiting, Abdominal Pain, 13 WEEKS PREG. 20:59 The patient presents to the emergency department with nausea, with "dry heaves", cp vomiting, that is continuous, abdominal pain, of the right lower quadrant and left lower quadrant, described as crampy. 20:59 Onset: The symptoms/episode began/occurred last night, and became worse today. Possible cp causes: . Associated signs and symptoms: Pertinent negatives: diarrhea, dysuria, fever, GI bleeding, vaginal discharge, vaginal bleeding. Severity of symptoms: in the emergency department the symptoms are unchanged despite home interventions. The patient has experienced similar episodes in the past, several times. PIT RECORDER: 20:50 Verified bb Historical: - Allergies: 20:50 Ibuprofen; bb 20:50 ORANGES; bb - Home Meds: 20:50 Vitamin Oral [Active]; Zofran Oral [Active]; Phenergan Supp Rectal [Active]; bb Diclegis oral oral [Active]; - PMHx: 20:50 None; bb - PSHx: 20:50 Appendectomy; bb - Immunization history:: Adult Immunizations up to date. - Social history:: Smoking status: Patient/guardian denies using tobacco, Patient/guardian denies using alcohol, street drugs. - Ebola Screening: : No symptoms or risks identified at this time. ROS: 21:05 Constitutional: Positive for poor PO intake, Negative for body aches, chills, fever. cp 21:05 Eyes: Negative for injury, pain, redness, and discharge. cp 21:05 ENT: Negative for drainage from ear(s), ear pain, sore throat, difficulty swallowing, cp difficulty handling secretions. 21:05 Cardiovascular: Negative for chest pain, edema, palpitations. 21:05 Respiratory: Negative for cough, shortness of breath, wheezing. 21:05 Abdomen/GI: Positive for nausea and vomiting, abdominal cramps, anorexia, Negative for constipation, hematemesis, black/tarry stool, rectal bleeding. 21:05 Back: Negative for pain at rest, pain with movement, radiated pain. 21:05 : Negative for urinary symptoms, flank pain, vaginal bleeding, vaginal discharge. 21:05 Skin: Negative for cellulitis, rash. 21:05 Neuro: Negative for altered mental status, dizziness, syncope, near syncope, weakness. 21:05 All other systems are negative. Exam: 21:05 Head/Face: Normocephalic, atraumatic. cp 21:05 Constitutional: The patient appears alert, awake, non-toxic, well developed, well nourished, in obvious distress. 21:05 Eyes: Periorbital structures: appear normal, Pupils: equal, round, and reactive to light and accomodation, Extraocular movements: intact throughout, Conjunctiva: normal, no exudate, no injection, Sclera: no appreciated abnormality, Lids and lashes: appear normal, bilaterally. 21:05 ENT: External ear(s): are unremarkable, Nose: is normal, Mouth: Lips: moist, Oral mucosa: moist, Posterior pharynx: is normal, airway is patent. 21:05 Neck: ROM/movement: is normal, is supple, without pain, no range of motions limitations, no meningismus, no nuchal rigidity. 21:05 Chest/axilla: Inspection: normal, Palpation: is normal, no crepitus, no tenderness. 21:05 Cardiovascular: Rate: normal, Rhythm: regular. 21:05 Respiratory: the patient does not display signs of respiratory distress, Respirations: normal, no use of accessory muscles, no retractions, no splinting, no tachypnea, labored breathing, is not present, Breath sounds: are clear throughout, no decreased breath sounds, no stridor, no wheezing. 21:05 Abdomen/GI: Inspection: abdomen appears normal, Bowel sounds: active, all quadrants, Palpation: soft, in all quadrants, moderate abdominal tenderness, in the right lower quadrant and left lower quadrant, rebound tenderness, is not appreciated, involuntary guarding, is not appreciated. 21:05 Back: pain, is absent, ROM is normal, CVA tenderness, is absent. 21:05 Skin: cellulitis, is not appreciated, no rash present. 21:05 Neuro: Orientation: to person, place \\T\\ time. Mentation: lucid, able to follow commands, Cerebellar function: is grossly normal, Motor: moves all fours, strength is normal, Sensation: no obvious gross deficits. Vital Signs: 20:50 BP 121 / 63; Pulse 94; Resp 18 S; Temp 98.7(O); Pulse Ox 95% on R/A; Weight 75.3 kg bb (R); Height 5 ft. 2 in. (157.48 cm) (R); Pain 9/10; 21:16 BP 119 / 81 Supine; mg2 21:16 BP 128 / 83 Sitting; mg2 21:16 BP 128 / 74 Standing; mg2 22:19 BP 132 / 87; Pulse 89; Resp 18; Pulse Ox 100% on R/A; Pain 3/10; mg2 23:16 BP 112 / 82; Pulse 72; Resp 18; Pulse Ox 100% on R/A; Pain 0/10; mg2 20:50 Body Mass Index 30.36 (75.30 kg, 157.48 cm) bb MDM: 20:46 Patient medically screened. 23:05 Data reviewed: vital signs, nurses notes, lab test result(s), and as a result, I will cp admit patient. 23:12 Response to treatment: the patient's symptoms have mildly improved after treatment, cp patient continues to vomit with oral fluids. Physician consultation: Michael Carson MD was called at 11:10, was contacted at 23:13, regarding admission, to women's floor, patient's condition. 07/04 20:57 Order name: Amylase, Serum; Complete Time: 21:43 07/04 20:57 Order name: Basic Metabolic Panel; Complete Time: 21:43 07/04 21:44 Interpretation: Normal except: CL 108; BUN 4. 07/04 20:57 Order name: CBC with Diff; Complete Time: 21:43 07/04 21:43 Interpretation: Normal except: WBC 10.2; ANGELITO% 81.0; LYM% 14.1; NEUT A 8.3. 07/04 20:57 Order name: Creatinine for Radiology; Complete Time: 21:43 07/04 20:57 Order name: Hepatic Function; Complete Time: 21:43 07/04 21:44 Interpretation: Normal except: AST 13; GLOB 3.9; A/G 0.9. 07/04 20:57 Order name: Lipase; Complete Time: 21:43 cp 08/10 20:57 Order name: Urine Microscopic Only; Complete Time: 22:58 cp 08/10 22:50 Order name: Urine Dipstick--Ancillary (enter results); Complete Time: 22:58 ms 08/10 22:59 Interpretation: Normal except: UKET 4+; UESTR TRACE. cp 08/10 22:50 Order name: Urine --Ancillary (enter results); Complete Time: 22:58 ms 08/10 22:59 Interpretation: Reviewed. cp 08/10 23:35 Order name: Basic Metabolic Panel EDMS 08 23:35 Order name: Basic Metabolic Panel EDMS 08 23:35 Order name: CBC with Automated Diff EDMS 07/04 23:35 Order name: CBC with Automated Diff EDMS 07/04 20:57 Order name: Urine Test (obtain specimen); Complete Time: 22:45 cp 08/10 20:57 Order name: IV Saline Lock; Complete Time: 21:08 cp / 20:57 Order name: Labs collected and sent; Complete Time: 21:08 cp /10 20:57 Order name: Urine Dipstick-Ancillary (obtain specimen); Complete Time: 22:45 cp 08/10 20:59 Order name: FHT's; Complete Time: 22:26 cp 08/10 22:45 Order name: PO challenge; Complete Time: 23:17 cp 08/10 23:35 Order name: Clear Liquid EDMS 08 23:35 Order name: Diet - Advance as Tolerated EDMS Administered Medications: 21:06 Drug: Zofran 4 mg Route: IVP; Infused Over: 2 mins; Site: right forearm; tl3 21:47 Follow up: Response: No adverse reaction; Nausea unchanged; Vomiting unchanged mg2 21:06 Drug: Pepcid 20 mg Route: IVP; Infused Over: 2 mins; Site: right forearm; tl3 21:47 Follow up: Response: No adverse reaction mg2 21:07 Drug: NS 0.9% 1000 ml Route: IV; Rate: 1 bolus; Site: right forearm; Delivery: Primary tl3 tubing; 21:47 Drug: Zofran 4 mg Route: IVP; Site: left forearm; mg2 22:27 Follow up: Response: No adverse reaction; Nausea is decreased mg2 21:56 Drug: NS 0.9% 1000 ml Route: IV; Rate: 1 bolus; Site: left forearm; mg2 22:18 Drug: Phenergan 25 mg Route: IVP; Site: right forearm; mg2 23:17 Follow up: Response: No adverse reaction; Pain is increased; Nausea is decreased mg2 22:35 Drug: NS 0.9% 1000 ml Route: IV; Rate: 125 ml/hr; Site: right forearm; mg2 23:17 Follow up: Response: No adverse reaction; IV Status: Infusion continued upon admission mg2 Disposition: 07/05 00:18 Co-signature as Attending Physician, Corbin Gross MD. pkl Disposition: 07/04/18 23:15 Hospitalization ordered by Michael Carson for Observation. Preliminary diagnosis is Hyperemesis gravidarum with metabolic disturbance. - Bed requested for [facility]. - Status is Observation. mg2 - Condition is Fair. - Problem is an ongoing problem. - Symptoms have improved. UTI on Admission? No Signatures: Dispatcher [employer] EDMS Kristi Hudson RN RN kl Lam, Pin, MD MD pkl Mercy Saini RN RN bb Pancho Pryor PA PA cp Jayde Olmos RN RN tl3 Tien Juarez RN RN mg2 Corrections: (The following items were deleted from the chart) 07/04 21:00 20:51 Orthostatics ordered. cp cp 22:43 22:01 Owens ordered. cp mg2 23:34 23:15 Hospitalization Ordered by Michael Carson MD for Observation. Preliminary kl diagnosis is Hyperemesis gravidarum with metabolic disturbance. Bed requested for [facility]. Status is Observation. Condition is Fair. Problem is an ongoing problem. Symptoms have improved. UTI on Admission? No. cp 07/05 00:02 07/04 23:34 07/04/2018 23:15 Hospitalization Ordered by Michael Carson MD for mg2 Observation. Preliminary diagnosis is Hyperemesis gravidarum with metabolic disturbance. Bed requested for [facility]. Status is Observation. Condition is Fair. Problem is an ongoing problem. Symptoms have improved. UTI on Admission? No. kl
[2018-07-04] MEDS ORDERED: ACETAMINOPHEN 500 MG TAB PO PRN (23:32)
[2018-07-04] MEDS ORDERED: PROMETHAZINE 25 MG/ML VIAL IV PRN (23:34)
[2018-07-04] MEDS ORDERED: D5 0.45 NS 1,000 ML IV SCH (23:45)
[2018-07-05] MEDS: METOCLOPRAMIDE 10 MG/2mL INJ IV PRN ×2 (00:29→07:35)
[2018-07-05 00:39] VITALS: BMI 30.3
[2018-07-05 06:04] VITALS: O2SAT 98
[2018-07-05 06:16] LABS: BUN Blood Urea Nitrogen 4 mg/dL (7-18); Bicarbonate 23 mmol/L (21-32); Glucose Level 77 mg/dL (74-106); Potassium 4.1 mmol/L (3.5-5.1); Sodium Level 145 mmol/L (136-145)
[2018-07-05 06:17] LABS: Absolute Lymphocytes (CBC) 2.2 K/uL (0.7-4.9); Absolute Monocytes 0.6 K/uL (0.1-1.3); Absolute Neutrophil 5.7 K/uL (1.8-8.0); Basophils % 0.3 % (0-1.3); Eosinophils % 0.8 % (0-4.4); Hematocrit 35.7 % (36.0-45.0); Lymphocytes % 25.5 % (15.3-44.8); MCH 31.1 pg (27.0-35.0); MCV 86.7 fL (80-100); MPV 8.2 fL (7.6-11.3); Monocytes % 7.1 % (3.3-12.3); RBC Red Blood Cell Count 4.11 M/uL (3.86-4.86)
[2018-07-05 07:53] VITALS: BP 122/56; TEMP 97.9
--- NOTE | 2018-07-05 10:31 | PREOPHP ---
Date of Admission: 07/04/2018 A 27-year-old female, 13 weeks' gestation with hyperemesis gravidarum. Patient of Dr. Wolff's, but e emergency room mistakenly called me thinking I was on-call and we admitted the patient under my nam e. Vital signs were all normal. She had been hydrated, but not adequately in the emergency room, an d the emergency room healthcare provider wanted her to be admitted for at least overnight observation , I agreed. The vital signs were all stable. Physical exam is basically unremarkable. Admitted wit h diagnosis of hyperemesis gravidarum at 13+ weeks. LYNN/APOLONIA Voice ID: [id number]
--- NOTE | 2018-07-05 10:34 | PN ---
The patient was admitted overnight for hyperemesis gravidarum, is hungry this morning. We will let h er eat a light non-fried, non-greasy breakfast. Dr. Wolff will take over as this is her patient who w as mistakenly admitted under my name. LYNN/APOLONIA Voice ID: [id number] Report ID: [id number]
== END 2018-07-05 09:15 | disposition home or self-care (01) ==
LOC: ER 20:37 → 2ND-WC 23:31
PROVIDERS: ADMIT Specialist; ATTEND Specialist
DX: O21.0 Mild hyperemesis gravidarum (principal); Z3A.13 13 weeks gestation of pregnancy
CPT/HCPCS: 36415; 80048; 80076; 81003; 81015; 81025; 82150; 83690; 85025; 99285; G0378; J2405; J2550; J2765; J7030

== ENCOUNTER 2018-07-19 08:20 | Emergency (ER) | payer MEDICAID ==
[2018-07-19] MEDS ORDERED: PROMETHAZINE 25 MG/ML VIAL ONE ×3 (09:02→16:24)
[2018-07-19] MEDS ORDERED: NA CHLORIDE 0.9% 100 ML IV ONE ×2 (09:02→16:25)
[2018-07-19] MEDS ORDERED: NA CHLORIDE 0.9% 1,000 ML ONE ×2 (09:02→11:39)
[2018-07-19 09:11] LABS: Absolute Lymphocytes (CBC) 1.7 K/uL (0.7-4.9); Absolute Monocytes 0.5 K/uL (0.1-1.3); Absolute Neutrophil 6.6 K/uL (1.8-8.0); Basophils % 0.3 % (0-1.3); Eosinophils % 0.4 % (0-4.4); Hematocrit 40.4 % (36.0-45.0); Lymphocytes % 19.4 % (15.3-44.8); MCH 30.5 pg (27.0-35.0); MCV 85.6 fL (80-100); MPV 7.8 fL (7.6-11.3); Monocytes % 5.9 % (3.3-12.3); RBC Red Blood Cell Count 4.72 M/uL (3.86-4.86)
[2018-07-19] MEDS ORDERED: FAMOTIDINE 20 MG/2 ML VIAL IV ONE (09:23)
[2018-07-19 09:34] LABS: ALT/SGPT 18 U/L (12-78); AST/SGOT 16 U/L (15-37); Albumin 3.4 g/dL (3.4-5.0); Alkaline Phosphatase 56 U/L (45-117); BUN Blood Urea Nitrogen 8 mg/dL (7-18); Bicarbonate 22 mmol/L (21-32); Bilirubin Direct 0.2 mg/dL (0-0.2); Bilirubin Total 0.7 mg/dL (0.2-1.0); Glucose Level 90 mg/dL (74-106); Lipase 78 U/L (73-393); Potassium 3.2 mmol/L (3.5-5.1); Protein, Total 7.8 g/dL (6.4-8.2); Sodium Level 137 mmol/L (136-145)
[2018-07-19] MEDS ORDERED: NA CHLORIDE 0.9% 50 ML IV ONE (12:27)
[2018-07-19 13:51] LABS: Urine Blood NEGATIVE (NEG); Urine Glucose NEGATIVE (NEG); Urine Protein 1+ (NEG); Urine Specific Gravity >1.030 (1.005-1.030)
[2018-07-19 14:12] LABS: Urine Bacteria <20 /HPF (<20); Urine Culture Reflex Order REFLEXED; Urine Mucus 3+ /HPF (NONE SEEN); Urine RBC <5 /HPF (NONE SEEN)
[2018-07-19] MEDS ORDERED: MORPHINE 4 MG/ML SYR ONE (15:12)
[2018-07-19] MEDS ORDERED: D5 0.45 NS 1,000 ML IV ONE (15:12)
--- NOTE | 2018-07-19 15:38 | EDPHYS ---
Physician Documentation [facility] Name: Suraj Fuentes Age: 27 yrs Sex: Female : 1990 Arrival Date: 07/19/2018 Time: 08:21 Bed 7 Private MD: ED Physician Marcelo Dhaliwal HPI: 07/19 09:16 This 27 yrs old Female presents to ER via Ambulatory with complaints of wa Vomiting - 15 Weeks Preg. 09:16 The patient presents to the emergency department with nausea, vomiting, that is wa continuous, described as clear fluid, abdominal pain, of the epigastric, described as burning, and does not radiate. Onset: The symptoms/episode began/occurred 15 week(s) ago. Possible causes: . The symptoms are aggravated by nothing. The symptoms are alleviated by nothing. Associated signs and symptoms: Pertinent positives: nausea, vomiting, Pertinent negatives: constipation, diarrhea, dysuria, fever, hematuria, vaginal discharge. Severity of symptoms: At their worst the symptoms were severe in the emergency department the symptoms are unchanged. on-going throughout this . The patient has been recently seen by a physician: admitted a few days back at [facility] for same. denies dysuria, vag bleed or discharge. 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 - Social history:: Smoking status: unknown. - Ebola Screening: : No symptoms or risks identified at this time. - Family history:: not pertinent. - Hospitalizations: : No recent hospitalization is reported. ROS: 09:20 Constitutional: Negative for fever, chills, and weight loss, Eyes: Negative for injury, wa pain, redness, and discharge, ENT: Negative for injury, pain, and discharge, Neck: Negative for injury, pain, and swelling, Cardiovascular: Negative for chest pain, palpitations, and edema, Respiratory: Negative for shortness of breath, cough, wheezing, and pleuritic chest pain, Back: Negative for injury and pain, : Negative for injury, bleeding, discharge, and swelling, MS/Extremity: Negative for injury and deformity, Skin: Negative for injury, rash, and discoloration, Neuro: Negative for headache, weakness, numbness, tingling, and seizure, Psych: Negative for depression, anxiety, suicide ideation, homicidal ideation, and hallucinations. 09:20 All other systems are negative. 09:20 Abdomen/GI: Positive for abdominal pain, nausea, vomiting. wa Exam: 09:20 Head/Face: Normocephalic, atraumatic. Eyes: Pupils equal round and reactive to light, wa extra-ocular motions intact. Lids and lashes normal. Conjunctiva and sclera are non-icteric and not injected. Cornea within normal limits. Periorbital areas with no swelling, redness, or edema. ENT: Nares patent. No nasal discharge, no septal abnormalities noted. Tympanic membranes are normal and external auditory canals are clear. Oropharynx with no redness, swelling, or masses, exudates, or evidence of obstruction, uvula midline. Mucous membranes moist. Neck: Trachea midline, no thyromegaly or masses palpated, and no cervical lymphadenopathy. Supple, full range of motion without nuchal rigidity, or vertebral point tenderness. No Meningismus. Chest/axilla: Normal chest wall appearance and motion. Nontender with no deformity. No lesions are appreciated. Cardiovascular: Regular rate and rhythm with a normal S1 and S2. No gallops, murmurs, or rubs. Normal PMI, no JVD. No pulse deficits. Respiratory: Lungs have equal breath sounds bilaterally, clear to auscultation and percussion. No rales, rhonchi or wheezes noted. No increased work of breathing, no retractions or nasal flaring. Back: No spinal tenderness. No costovertebral tenderness. Full range of motion. Skin: Warm, dry with normal turgor. Normal color with no rashes, no lesions, and no evidence of cellulitis. MS/ Extremity: Pulses equal, no cyanosis. Neurovascular intact. Full, normal range of motion. Neuro: Awake and alert, GCS 15, oriented to person, place, time, and situation. Cranial nerves II-XII grossly intact. Motor strength 5/5 in all extremities. Sensory grossly intact. Cerebellar exam normal. Normal gait. 09:20 Constitutional: The patient appears alert, uncomfortable. 09:20 Abdomen/GI: Inspection: abdomen appears normal, Bowel sounds: normal, in all quadrants, Palpation: soft, in all quadrants, mild abdominal tenderness, in all quadrants. Vital Signs: 08:30 BP 139 / 98; Pulse 101; Resp 16; Temp 98.2; Pulse Ox 100% on R/A; Pain 0/10; hb 09:58 BP 115 / 58; Pulse 79; Resp 18; Pulse Ox 99% on R/A; ph 11:00 BP 122 / 78; Pulse 82; Resp 16; Pulse Ox 98% on R/A; ph 12:28 BP 134 / 87; Pulse 79; Resp 18; Pulse Ox 99% on R/A; ph 13:32 BP 127 / 82; Pulse 84; Resp 18; Pulse Ox 98% on R/A; ph MDM: 08:31 Patient medically screened. 09:21 Differential diagnosis: hyperemesis. eval to r/o infection vs electrolyte abnml. 11:28 Data reviewed: vital signs, nurses notes. wa 15:32 Test interpretation: by ED physician or midlevel provider: labs noted for hypokalemia wa and 3+ ketones in urine. . Test interpretation: by ED physician or midlevel provider: nml CXR. Response to treatment: pt still retching, intractable, after rounds of phenergan, pepcid and fluids. will effect transfer for hyperemesis. FHT 154. Physician consultation: accepted by OB arsenio Ricketts at [facility]. will effect transfer. 07/19 08:55 Order name: Basic Metabolic Panel; Complete Time: 10:05 in 07/19 08:55 Order name: CBC with Diff; Complete Time: 10:05 in 07/19 08:55 Order name: Hepatic Function; Complete Time: 10:05 in 07/19 08:55 Order name: Lipase; Complete Time: 10:05 in 07/19 08:55 Order name: Urine Microscopic Only in 07/19 09:19 Order name: Quantitative Hcg; Complete Time: 11:16 in 07/19 13:29 Order name: Urine Dipstick--Ancillary (enter results); Complete Time: 13:58 em1 07/19 14:13 Order name: Urine Culture EDMS 07/19 15:04 Order name: Chest Single View XRAY; Complete Time: 16:21 in 07/19 08:55 Order name: IV Saline Lock; Complete Time: 09:09 in 07/19 08:55 Order name: Labs collected and sent; Complete Time: 09:09 in 07/19 08:55 Order name: Urine Dipstick-Ancillary (obtain specimen); Complete Time: 13:28 in 07/19 09:19 Order name: Heart Tones; Complete Time: 10:08 in Administered Medications: 09:07 Drug: NS 0.9% 1000 ml Route: IV; Rate: 1 bolus; Site: right antecubital; ph 16:26 Follow up: IV Status: Completed infusion la1 09:07 Drug: Phenergan 25 mg {Note: mixed w/ 100 mL NS and administered over 30 min per ERP ph order.} Route: IVP; Rate: 200 ml/hr; Infused Over: 30 mins; Site: right antecubital; 09:39 Follow up: Response: No adverse reaction ph 09:09 Drug: Pepcid 20 mg Route: IVP; Site: right antecubital; ph 09:39 Follow up: Response: No adverse reaction ph 12:06 Drug: NS 0.9% 1000 ml Route: IV; Rate: 1 bolus; Site: left antecubital; la1 16:25 Follow up: IV Status: Completed infusion la1 12:27 Drug: Phenergan 12.5 mg {Note: mixed w/ 50 mL of NS and infused over 15 min .} Route: ph IVP; Site: left antecubital; 16:25 Follow up: Response: No adverse reaction la1 15:13 Drug: D5-1/2 NS 1000 ml Route: IV; Rate: 100 ml; Site: left antecubital; la1 16:25 Follow up: IV Status: Infusion continued upon admission la1 15:13 Drug: morphine 2 mg Route: IVP; Site: left antecubital; la1 16:25 Follow up: Response: No adverse reaction; Pain is decreased la1 16:25 Drug: Promethazine 12.5 mg Route: IVP; Site: left antecubital; la1 16:26 Follow up: Response: No adverse reaction la1 Disposition: 07/19/18 15:37 Transfer ordered to [facility] Diagnosis are Hyperemesis gravidarum with metabolic disturbance, Dehydration. - Reason for transfer: Higher level of care. - Accepting physician is Dr. Ricketts at [facility]. - Condition is Stable. - Problem is an acute exacerbation. - Symptoms have improved. Signatures: Dispatcher [employer] EDMI Robin Angelo RN RN la1 Bethanie Cruz RN RN Kimberly Houser, RN RN [facility] Center[facility]arcel[facility] MD MD wa Corrections: (The following items were deleted from the chart) 14:13 14:00 UA MICROSCOPIC+U.LAB.BRZ ordered. [facility] EDMI 16:26 15:37 07/19/2018 15:37 Transfer ordered to [facility] Diagnosis is Hyperemesis la1 gravidarum with metabolic disturbance; Dehydration. Reason for transfer: Higher level of care. Accepting physician is Dr. Ricketts at [facility]. Condition is Stable. Problem is an acute exacerbation. Symptoms have improved. wa
--- NOTE | 2018-07-19 15:38 | ER ---
Nurse's Notes [facility] Name: Suraj Fuentes Age: 27 yrs Sex: Female : 1990 Arrival Date: 07/19/2018 Time: 08:21 Bed 7 Private MD: Diagnosis: Hyperemesis gravidarum with metabolic disturbance;Dehydration Presentation: 07/19 08:31 Presenting complaint: Patient states: N/V since last night, unable to tolerate liquids. hb Recently inpatient at [facility] for UTI and trichomonas. Reports she is 15 weeks , LMP 04/08, . Denies pain/fever. Transition of care: patient was not received from another setting of care. Onset of symptoms was July 18, 2018. Risk Assessment: Do you want to hurt yourself or someone else? Patient reports no desire to harm self or others. Care prior to arrival: None. 08:31 Method Of Arrival: Ambulatory hb 08:31 Acuity: SHAW 3 hb 09:14 Initial Sepsis Screen: Does the patient meet any 2 criteria? No. Patient's initial ph sepsis screen is negative. Does the patient have a suspected source of infection? No. Patient's initial sepsis screen is negative. 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 - Social history:: Smoking status: unknown. - Ebola Screening: : No symptoms or risks identified at this time. - Family history:: not pertinent. - Hospitalizations: : No recent hospitalization is reported. Screenin:34 Abuse screen: Denies threats or abuse. Denies injuries from another. Nutritional hb screening: No deficits noted. Tuberculosis screening: No symptoms or risk factors identified. Fall Risk None identified. Assessment: 08:45 General: Appears in no apparent distress. uncomfortable, Behavior is cooperative, ph appropriate for age, anxious. Pain: Complains of pain in abdomen. Neuro: Level of Consciousness is awake, alert, obeys commands, Oriented to person, place, time, situation. Cardiovascular: Capillary refill < 3 seconds in bilateral fingers Patient's skin is warm and dry. Respiratory: Airway is patent Respiratory effort is even, unlabored, Respiratory pattern is regular, symmetrical. GI: Abdomen is round non-distended, Abd is soft and non tender X 4 quads. Reports nausea, vomiting, Patient currently denies diarrhea. : Denies burning with urination, urinary frequency, vaginal bleeding. Derm: Skin is intact, is healthy with good turgor, Skin is pink, warm \T\ dry. Musculoskeletal: Circulation, motion, and sensation intact. Range of motion: intact in all extremities. 09:59 Reassessment: Patient appears in no apparent distress at this time. Patient and/or ph family updated on plan of care and expected duration. Pain level reassessed. Patient is alert, oriented x 3, equal unlabored respirations, skin warm/dry/pink. Pt continues to c/o nausea and is dry heaving, approx 2 oz of clear liquid noted in emesis bag, family at bedside, VSS, will continue to monitor. 11:00 Reassessment: Patient appears in no apparent distress at this time. No changes from ph previously documented assessment. Patient and/or family updated on plan of care and expected duration. Pain level reassessed. Patient is alert, oriented x 3, equal unlabored respirations, skin warm/dry/pink. 12:29 Reassessment: Patient appears in no apparent distress at this time. Patient and/or ph family updated on plan of care and expected duration. Pain level reassessed. Patient is alert, oriented x 3, equal unlabored respirations, skin warm/dry/pink. Pt resting quietly, continues to c/o nausea, approx 4 oz of clear fluid noted in emesis bag, ERP notified, see MAR, VSS, family at bedside. 13:31 Reassessment: Patient appears in no apparent distress at this time. Patient and/or ph family updated on plan of care and expected duration. Pain level reassessed. Patient is alert, oriented x 3, equal unlabored respirations, skin warm/dry/pink. Pt ambulated to restroom, gait steady, urine sample obtained, pt continues to c/o nausea, no further vomiting noted. 14:30 Reassessment: Patient appears in no apparent distress at this time. Patient and/or ph family updated on plan of care and expected duration. Pain level reassessed. Patient is alert, oriented x 3, equal unlabored respirations, skin warm/dry/pink. Pt c/o chest pain 7/10, ERP notified, see MAR. 15:34 Reassessment: Patient appears in no apparent distress at this time. Patient and/or ph family updated on plan of care and expected duration. Pain level reassessed. Patient is alert, oriented x 3, equal unlabored respirations, skin warm/dry/pink. Pt reports that chest pain has improved after IV pain medication, report called to [facility], awaiting EMS for transport. Vital Signs: 08:30 BP 139 / 98; Pulse 101; Resp 16; Temp 98.2; Pulse Ox 100% on R/A; Pain 0/10; hb 09:58 BP 115 / 58; Pulse 79; Resp 18; Pulse Ox 99% on R/A; ph 11:00 BP 122 / 78; Pulse 82; Resp 16; Pulse Ox 98% on R/A; ph 12:28 BP 134 / 87; Pulse 79; Resp 18; Pulse Ox 99% on R/A; ph 13:32 BP 127 / 82; Pulse 84; Resp 18; Pulse Ox 98% on R/A; ph Vitals: 09:58 Heart Tones 154 bpm. ph ED Course: 08:21 Patient arrived in ED. as 08:27 Bethanie Cruz, ALFONZO is Primary Nurse. ph 08:31 Marcelo Dhaliwal MD is Attending Physician. wa 08:33 Triage completed. hb 08:34 Arm band placed on right wrist. hb 08:45 Initial lab(s) drawn, by mn, sent to lab. Inserted saline lock: 22 gauge in right ph antecubital area, using aseptic technique. Blood collected. 09:15 Patient has correct armband on for positive identification. Bed in low position. Call ph light in reach. Side rails up X 1. Pulse ox on. NIBP on. Warm blanket given. 09:59 No provider procedures requiring assistance completed. ph 12:05 Inserted saline lock: 24 gauge in left antecubital area, using aseptic technique. la1 15:33 \T\1146 initiated a transfer with Anne-Marie at the [facility] transfer center/ \T\[address] aide Ricketts with ED doc for patient transfer/ \T\ 1500 Administrative approval given by Anne-Marie Paulino. Pt going to L\T\D/ Report to be called to [phone]. 15:45 Chest Single View XRAY In Process Unspecified. EDMS 16:26 Patient transferred, IV remains in place. la1 Administered Medications: 09:07 Drug: NS 0.9% 1000 ml Route: IV; Rate: 1 bolus; Site: right antecubital; ph 16:26 Follow up: IV Status: Completed infusion la1 09:07 Drug: Phenergan 25 mg {Note: mixed w/ 100 mL NS and administered over 30 min per ERP ph order.} Route: IVP; Rate: 200 ml/hr; Infused Over: 30 mins; Site: right antecubital; 09:39 Follow up: Response: No adverse reaction ph 09:09 Drug: Pepcid 20 mg Route: IVP; Site: right antecubital; ph 09:39 Follow up: Response: No adverse reaction ph 12:06 Drug: NS 0.9% 1000 ml Route: IV; Rate: 1 bolus; Site: left antecubital; la1 16:25 Follow up: IV Status: Completed infusion la1 12:27 Drug: Phenergan 12.5 mg {Note: mixed w/ 50 mL of NS and infused over 15 min .} Route: ph IVP; Site: left antecubital; 16:25 Follow up: Response: No adverse reaction la1 15:13 Drug: D5-1/2 NS 1000 ml Route: IV; Rate: 100 ml; Site: left antecubital; la1 16:25 Follow up: IV Status: Infusion continued upon admission la1 15:13 Drug: morphine 2 mg Route: IVP; Site: left antecubital; la1 16:25 Follow up: Response: No adverse reaction; Pain is decreased la1 16:25 Drug: Promethazine 12.5 mg Route: IVP; Site: left antecubital; la1 16:26 Follow up: Response: No adverse reaction la1 Outcome: 15:37 ER care complete, transfer ordered by MD. nunez 16:26 Transferred by ground EMS to [facility]. la1 16:26 Condition: stable 16:26 Instructed on the need for transfer. 16:26 Patient left the ED. la1 Signatures: Dispatcher [employer] Jinny Boyce Lee, RN RN la1 Bethanie Cruz RN RN ph Baxter, Heather, RN RN Marcelo Dhaliwal MD MD wa Botello, Elizabeth eb
--- NOTE | 2018-07-19 16:15 | RAD REPORT ---
EXAM DESCRIPTION: Yaya Single View07/19/2018 3:45 pm CLINICAL HISTORY: Chest pain COMPARISON: December 2016 FINDINGS: The lungs appear clear of acute infiltrate. The heart is normal size IMPRESSION: No acute abnormalities displayed
[2018-07-19 16:35] VITALS: TEMP 98.2
[2018-07-19 16:39] VITALS: BP 127/82; O2SAT 98
== END 2018-07-19 16:26 | disposition short-term general hospital (02) ==
LOC: ER 08:20
DX: O21.1 Hyperemesis gravidarum with metabolic disturbance (principal); E86.0 Dehydration; Z3A.15 15 weeks gestation of pregnancy; Z88.6 Allergy status to analgesic agent; Z91.018 Allergy to other foods
CPT/HCPCS: 36415; 71045; 80048; 80076; 81003; 81015; 83690; 84702; 85025; 87086; 87088; 99285; J2550; J7030

== ENCOUNTER 2018-07-28 15:05 | Emergency (ER) | payer MEDICAID ==
[2018-07-28] MEDS ORDERED: ONDANSETRON 4 MG/2 ML VIAL ONE ×2 (15:27→16:53)
[2018-07-28] MEDS ORDERED: NA CHLORIDE 0.9% 1,000 ML ONE ×2 (15:27→16:33)
[2018-07-28 15:53] LABS: Absolute Lymphocytes (CBC) 1.4 K/uL (0.7-4.9); Absolute Monocytes 0.5 K/uL (0.1-1.3); Absolute Neutrophil 11.3 K/uL (1.8-8.0); Basophils % 0.2 % (0-1.3); Eosinophils % 0.2 % (0-4.4); Hematocrit 40.2 % (36.0-45.0); Lymphocytes % 10.8 % (15.3-44.8); MCH 30.2 pg (27.0-35.0); MCV 86.9 fL (80-100); MPV 8.2 fL (7.6-11.3); Monocytes % 3.9 % (3.3-12.3); RBC Red Blood Cell Count 4.62 M/uL (3.86-4.86)
[2018-07-28 16:02] LABS: ALT/SGPT 17 U/L (12-78); AST/SGOT 14 U/L (15-37); Albumin 3.3 g/dL (3.4-5.0); Alkaline Phosphatase 46 U/L (45-117); BUN Blood Urea Nitrogen 6 mg/dL (7-18); Bicarbonate 23 mmol/L (21-32); Bilirubin Direct 0.1 mg/dL (0-0.2); Bilirubin Total 0.4 mg/dL (0.2-1.0); Glucose Level 90 mg/dL (74-106); Lipase 113 U/L (73-393); Potassium 3.9 mmol/L (3.5-5.1); Protein, Total 7.5 g/dL (6.4-8.2); Sodium Level 136 mmol/L (136-145)
[2018-07-28 16:13] LABS: HCG, Quantitative 20787 mIU/mL (1-3)
--- NOTE | 2018-07-28 17:19 | ER ---
Nurse's Notes [facility] Name: Suraj Fuentes Age: 27 yrs Sex: Female : 1990 Arrival Date: 07/28/2018 Time: 15:06 Bed 20 Private MD: WILMA DAMON Diagnosis: Vomiting; related conditions, unspecified, second trimester Presentation: 07/28 15:09 Presenting complaint: Patient states: im vomiting since 4:30 am; denies abd pain; hj denies fever and chills; reports sweating; reports diarrhea; LMP- 04/08/18. Transition of care: patient was not received from another setting of care. Onset of symptoms was July 28, 2018. Risk Assessment: Do you want to hurt yourself or someone else? Patient reports no desire to harm self or others. Initial Sepsis Screen: Does the patient meet any 2 criteria? No. Patient's initial sepsis screen is negative. Does the patient have a suspected source of infection? No. Patient's initial sepsis screen is negative. Care prior to arrival: None. 15:09 Method Of Arrival: Ambulatory 15:09 Acuity: SHAW 3 hj Triage Assessment: 15:11 General: Appears in no apparent distress. uncomfortable, Behavior is calm, cooperative, hj appropriate for age. Pain: Denies pain. GI: Reports nausea, vomiting. 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 - Social history:: Smoking status: Patient/guardian denies using tobacco, Patient/guardian denies using alcohol. - Ebola Screening: : Patient negative for fever greater than or equal to 101.5 degrees Fahrenheit, and additional compatible Ebola Virus Disease symptoms Patient denies exposure to infectious person Patient denies travel to an Ebola-affected area in the 21 days before illness onset. Screenin:11 Abuse screen: Denies threats or abuse. Denies injuries from another. Nutritional hj screening: No deficits noted. Tuberculosis screening: No symptoms or risk factors identified. Fall Risk None identified. Assessment: 15:12 GI: Abdomen is non-distended. hj 15:39 General: Appears in no apparent distress. uncomfortable, Behavior is cooperative, rv crying. Pain: Denies pain. Neuro: Level of Consciousness is awake, alert, obeys commands, confused, Oriented to person, place, time, situation. Cardiovascular: Capillary refill < 3 seconds. Respiratory: Airway is patent. : No signs and/or symptoms were reported regarding the genitourinary system. EENT: No signs and/or symptoms were reported regarding the EENT system. Derm: Skin is intact. 16:08 Reassessment: Patient appears in no apparent distress at this time. Patient and/or rv family updated on plan of care and expected duration. Pain level reassessed. Patient is alert, oriented x 3, equal unlabored respirations, skin warm/dry/pink. STARTING TO FEEL BETTER AFTER ZOFRAN. 17:02 Reassessment: Patient appears in no apparent distress at this time. Patient and/or rv family updated on plan of care and expected duration. Pain level reassessed. Patient is alert, oriented x 3, equal unlabored respirations, skin warm/dry/pink. Vital Signs: 15:12 Pulse 113; Resp 18; Temp 97.6(TE); Pulse Ox 97% on R/A; Weight 72.57 kg; Height 5 ft. 2 hj in. (157.48 cm); Pain 0/10; 15:38 BP 129 / 82; Pulse 104; rv 16:09 BP 107 / 51; Pulse 94; Pulse Ox 100% on R/A; rv 17:01 BP 134 / 93; Pulse 92; rv 19:22 BP 134 / 80; Pulse 99; Pulse Ox 99% on R/A; rv 15:12 Body Mass Index 29.26 (72.57 kg, 157.48 cm) Vitals: 17:01 Heart Tones 157 LLQ. rv ED Course: 15:06 Patient arrived in ED. sb2 15:06 WILMA DAMON is Private Physician. sb2 15:10 Triage completed. hj 15:12 Arm band placed on right wrist. hj 15:12 Patient has correct armband on for positive identification. Placed in gown. Bed in low hj position. Call light in reach. Side rails up X 1. 15:19 Pancho Greene MD is Attending Physician. jessica 15:30 Inserted saline lock: 22 gauge in left antecubital area, using aseptic technique. rv 17:17 Michael Carson MD is Hospitalizing Provider. jessica 19:12 Elli Wolff MD is Referral Physician. jessica 19:23 No provider procedures requiring assistance completed. IV IS MAINTAINED. PATIENT IS rv GOING TO L\T\D. Administered Medications: Discontinued: D5-1/2 NS 1000 ml IV at 150 TKO continuous 15:30 Drug: NS 0.9% 1000 ml Route: IV; Rate: 1 bolus; Site: left antecubital; rv 16:08 Follow up: IV Status: Completed infusion rv 15:30 Drug: Zofran 4 mg Route: IVP; Site: left antecubital; rv 16:08 Follow up: Response: No adverse reaction; Nausea is decreased rv 16:45 Drug: NS 0.9% 1000 ml Route: IV; Rate: 1 bolus; Site: left antecubital; rv 17:47 Follow up: IV Status: Completed infusion rv 17:47 Drug: Phenergan Suppository 25 mg Route: WV; rv 18:03 Follow up: Response: No adverse reaction rv 17:47 Drug: D5-1/2 NS 1000 ml Route: IV; Rate: 150 TKO; Site: left antecubital; rv 17:55 Drug: scopolamine 1 patches Route: Transdermal; Site: affected area; rv 19:37 Follow up: Response: No adverse reaction rv Outcome: 17:18 Decision to Hospitalize by Provider. jessica 19:13 Discharge ordered by . jessica 19:24 Discharged to L\T\D rv 19:24 Condition: good 19:24 Discharge instructions given to patient, family, Instructed on NEED TO BE SEEN AT L\T\D. 19:37 Patient left the ED. rv Signatures: Pancho Greene MD MD cha Joaquin, Henry, Arpita Saini RN sb2 Ye Mao RN RN rv Corrections: (The following items were deleted from the chart) 15:11 15:09 Presenting complaint: Patient states: im vomiting since 4:30 am; denies abd pain; hj denies fever and chills; reports sweating; reports diarrhea; hj
--- NOTE | 2018-07-28 17:19 | EDPHYS ---
Physician Documentation [facility] Name: Suraj Fuentes Age: 27 yrs Sex: Female : 1990 Arrival Date: 07/28/2018 Time: 15:06 Bed 20 Private MD: WILMA DAMON ED Physician Pancho Greene HPI: 07/28 17:13 This 27 yrs old Female presents to ER via Ambulatory with complaints of jessica Vomiting. 17:13 The patient presents to the emergency department with nausea, vomiting. Onset: The jessica symptoms/episode began/occurred this morning. Possible causes: . The symptoms are aggravated by nothing. The symptoms are alleviated by nothing. Associated signs and symptoms: The patient has no apparent associated signs or symptoms. Severity of symptoms: At their worst the symptoms were mild moderate in the emergency department the symptoms are unchanged. The patient has experienced similar episodes in the past, several times. 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 - Social history:: Smoking status: Patient/guardian denies using tobacco, Patient/guardian denies using alcohol. - Ebola Screening: : Patient negative for fever greater than or equal to 101.5 degrees Fahrenheit, and additional compatible Ebola Virus Disease symptoms Patient denies exposure to infectious person Patient denies travel to an Ebola-affected area in the 21 days before illness onset. ROS: 17:14 Constitutional: Negative for fever, chills, and weight loss, Eyes: Negative for injury, jessica pain, redness, and discharge, ENT: Negative for injury, pain, and discharge, Neck: Negative for injury, pain, and swelling, Cardiovascular: Negative for chest pain, palpitations, and edema, Respiratory: Negative for shortness of breath, cough, wheezing, and pleuritic chest pain, Back: Negative for injury and pain, : Negative for injury, bleeding, discharge, and swelling, MS/Extremity: Negative for injury and deformity, Skin: Negative for injury, rash, and discoloration, Neuro: Negative for headache, weakness, numbness, tingling, and seizure, Psych: Negative for depression, anxiety, suicide ideation, homicidal ideation, and hallucinations, Allergy/Immunology: Negative for hives, rash, and allergies, Endocrine: Negative for neck swelling, polydipsia, polyuria, polyphagia, and marked weight changes, Hematologic/Lymphatic: Negative for swollen nodes, abnormal bleeding, and unusual bruising. 17:14 Abdomen/GI: Positive for nausea, vomiting, abdominal distension. Exam: 17:14 Constitutional: This is a well developed, well nourished patient who is awake, alert, jessica and in no acute distress. Head/Face: Normocephalic, atraumatic. Eyes: Pupils equal round and reactive to light, extra-ocular motions intact. Lids and lashes normal. Conjunctiva and sclera are non-icteric and not injected. Cornea within normal limits. Periorbital areas with no swelling, redness, or edema. ENT: Nares patent. No nasal discharge, no septal abnormalities noted. Tympanic membranes are normal and external auditory canals are clear. Oropharynx with no redness, swelling, or masses, exudates, or evidence of obstruction, uvula midline. Mucous membranes moist. Neck: Trachea midline, no thyromegaly or masses palpated, and no cervical lymphadenopathy. Supple, full range of motion without nuchal rigidity, or vertebral point tenderness. No Meningismus. Chest/axilla: Normal chest wall appearance and motion. Nontender with no deformity. No lesions are appreciated. Cardiovascular: Regular rate and rhythm with a normal S1 and S2. No gallops, murmurs, or rubs. Normal PMI, no JVD. No pulse deficits. Respiratory: Lungs have equal breath sounds bilaterally, clear to auscultation and percussion. No rales, rhonchi or wheezes noted. No increased work of breathing, no retractions or nasal flaring. Back: No spinal tenderness. No costovertebral tenderness. Full range of motion. Female : Normal external genitalia. Skin: Warm, dry with normal turgor. Normal color with no rashes, no lesions, and no evidence of cellulitis. MS/ Extremity: Pulses equal, no cyanosis. Neurovascular intact. Full, normal range of motion. Neuro: Awake and alert, GCS 15, oriented to person, place, time, and situation. Cranial nerves II-XII grossly intact. Motor strength 5/5 in all extremities. Sensory grossly intact. Cerebellar exam normal. Normal gait. Psych: Awake, alert, with orientation to person, place and time. Behavior, mood, and affect are within normal limits. 17:14 Abdomen/GI: Inspection: gravid appearance, Bowel sounds: normal, Palpation: mild abdominal tenderness, in all quadrants, Liver: no appreciated palpable abnormalities, Hernia: not appreciated. Vital Signs: 15:12 Pulse 113; Resp 18; Temp 97.6(TE); Pulse Ox 97% on R/A; Weight 72.57 kg; Height 5 ft. 2 hj in. (157.48 cm); Pain 0/10; 15:38 BP 129 / 82; Pulse 104; rv 16:09 BP 107 / 51; Pulse 94; Pulse Ox 100% on R/A; rv 17:01 BP 134 / 93; Pulse 92; rv 19:22 BP 134 / 80; Pulse 99; Pulse Ox 99% on R/A; rv 15:12 Body Mass Index 29.26 (72.57 kg, 157.48 cm) hj MDM: 15:19 Patient medically screened. [facility] 17:18 Data reviewed: vital signs, nurses notes, lab test result(s), CBC, electrolytes, jessica urinalysis. 07/28 15:20 Order name: Basic Metabolic Panel; Complete Time: 17:09 [facility] 07/28 15:20 Order name: CBC with Diff; Complete Time: 16:12 [facility] 07/28 15:20 Order name: Creatinine for Radiology; Complete Time: 16:12 [facility] 07/28 15:20 Order name: Hepatic Function; Complete Time: 17:09 [facility] 07/28 15:20 Order name: Lipase; Complete Time: 17:09 [facility] 07/28 15:20 Order name: Urine Microscopic Only [facility] 07/28 15:20 Order name: Quantitative Hcg; Complete Time: 17:09 [facility] 07/28 15:20 Order name: Abo/rh Typing; Complete Time: 17:09 [facility] 07/28 17:28 Order name: Basic Metabolic Panel EDMI 07/28 17:28 Order name: CBC with Automated Diff EDMS 07/28 18:52 Order name: Urine Dipstick--Ancillary (enter results) em1 07/28 18:52 Order name: Urine --Ancillary (enter results) em1 07/28 19:00 Order name: Urine --Ancillary EDMI 07/28 19:00 Order name: Urine Dipstick-Ancillary [facility] 07/28 17:28 Order name: Clear Liquid EDMI 07/28 15:20 Order name: Urine Test (obtain specimen); Complete Time: 18:51 [facility] 07/28 15:20 Order name: IV Saline Lock; Complete Time: 15:40 [facility] 07/28 15:20 Order name: Labs collected and sent; Complete Time: 15:40 [facility] 07/28 15:20 Order name: Urine Dipstick-Ancillary (obtain specimen); Complete Time: 18:51 [facility] 07/28 15:20 Order name: NPO; Complete Time: 15:21 [facility] 07/28 17:09 Order name: FHT's; Complete Time: 17:24 [facility] Administered Medications: Discontinued: D5-1/2 NS 1000 ml IV at 150 TKO continuous 15:30 Drug: NS 0.9% 1000 ml Route: IV; Rate: 1 bolus; Site: left antecubital; rv 16:08 Follow up: IV Status: Completed infusion rv 15:30 Drug: Zofran 4 mg Route: IVP; Site: left antecubital; rv 16:08 Follow up: Response: No adverse reaction; Nausea is decreased rv 16:45 Drug: NS 0.9% 1000 ml Route: IV; Rate: 1 bolus; Site: left antecubital; rv 17:47 Follow up: IV Status: Completed infusion rv 17:47 Drug: Phenergan Suppository 25 mg Route: SD; rv 18:03 Follow up: Response: No adverse reaction rv 17:47 Drug: D5-1/2 NS 1000 ml Route: IV; Rate: 150 TKO; Site: left antecubital; rv 17:55 Drug: scopolamine 1 patches Route: Transdermal; Site: affected area; rv 19:37 Follow up: Response: No adverse reaction rv Disposition: 07/28/18 19:13 Discharged to Home. Impression: Vomiting, related conditions, unspecified, second trimester. - Condition is Stable. - Discharge Instructions: Hyperemesis Gravidarum, Nausea and Vomiting, Adult, Eating Plan for Hyperemesis Gravidarum, Nausea and Vomiting, Adult, [id number], Pelvic Rest, Second Trimester of , [id number]. - Medication Reconciliation Form, Thank You Letter, Antibiotic Education, Prescription Opioid Use form. - Follow up: Elli Wolff MD; When: Upon discharge from the Emergency Department; Reason: Recheck today's complaints, Re-evaluation by your physician. - Problem is new. - Symptoms have improved. Signatures: Dispatcher [employer] EDMS Pancho Greene MD MD cha Martinez, Eric em1 Rita Meza, ALFONZO MEJÍA ss Jared Caldera, ALFONZO RN Ye Mao, ALFONZO RN rv Corrections: (The following items were deleted from the chart) 17:43 17:18 Hospitalization Ordered by Michael Carson MD for Observation. Preliminary em1 diagnosis is Vomiting; related exhaustion and fatigue, second trimester; Hyperemesis gravidarum with metabolic disturbance. [facility] for [facility]. Status is Observation. Condition is Fair. Problem is new. Symptoms have improved. UTI on Admission? No. jessica 19:12 17:43 07/28/2018 17:18 Hospitalization Ordered by Michael Carson MD for Observation. jessica Preliminary diagnosis is Vomiting; related exhaustion and fatigue, second trimester; Hyperemesis gravidarum with metabolic disturbance. Bed requested for [facility]. Status is Observation. Condition is Fair. Problem is new. Symptoms have improved. UTI on Admission? No. em1 19:37 19:13 07/28/2018 19:13 Discharged to Home. Impression: Vomiting; related rv conditions, unspecified, second trimester. Condition is Stable. Forms are Medication Reconciliation Form, Thank You Letter, Antibiotic Education, Prescription Opioid Use. Follow up: Elli Wolff; When: Upon discharge from the Emergency Department; Reason: Recheck today's complaints, Re-evaluation by your physician. Problem is new. Symptoms have improved. jessica
[2018-07-28] MEDS ORDERED: ONDANSETRON 4 MG/2 ML VIAL IV PRN (17:23)
[2018-07-28] MEDS ORDERED: ACETAMINOPHEN 500 MG TAB PO PRN (17:23)
[2018-07-28] MEDS ORDERED: PROMETHAZINE 25 MG/SUPP PR ONE (17:46)
[2018-07-28] MEDS ORDERED: D5 0.45 NS 1,000 ML IV ONE (17:46)
[2018-07-28] MEDS ORDERED: SCOPOLAMINE HYDROBROMIDE PATCH TD ONE (17:48)
[2018-07-28] MEDS ORDERED: D5NS KCL 20MEQ 20 MEQ/1,000 ML BAG IV SCH (18:00)
[2018-07-28 18:59] LABS: Urine Blood NEGATIVE (NEG); Urine Glucose NEGATIVE (NEG); Urine Protein NEGATIVE (NEG); Urine Specific Gravity >1.030 (1.005-1.030)
[2018-07-28 19:33] LABS: Urine Bacteria <20 /HPF (<20); Urine RBC <5 /HPF (NONE SEEN)
[2018-07-28 19:34] LABS: Urine Culture Reflex Order NOT NEEDED; Urine Mucus SLIGHT /HPF (NONE SEEN)
[2018-07-28 20:21] VITALS: TEMP 97.6
[2018-07-28 20:29] VITALS: BP 134/80; O2SAT 99
== END 2018-07-28 19:37 | disposition home or self-care (01) ==
LOC: ER 15:05 → ERHOLD 17:19 → UNDOADMOB 17:19 → ER 19:37
DX: O21.8 Other vomiting complicating pregnancy (principal); Z88.6 Allergy status to analgesic agent; Z91.018 Allergy to other foods
CPT/HCPCS: 36415; 80048; 80076; 81003; 81015; 81025; 83690; 84702; 85025; 86900; 86901; 96361; 96374; 99283; J2405; J7030

== ENCOUNTER 2018-08-05 12:28 | Emergency (ER) | payer MEDICAID ==
[2018-08-05] MEDS ORDERED: PROMETHAZINE 25 MG/SUPP PR ONE ×3 (12:55→22:01)
[2018-08-05] MEDS ORDERED: NA CHLORIDE 0.9% 1,000 ML ONE ×4 (12:55→17:35)
[2018-08-05] MEDS ORDERED: FAMOTIDINE 20 MG/2 ML VIAL IV ONE (12:56)
[2018-08-05] MEDS ORDERED: DIPHENHYDRAMINE 50 MG/ML VIAL ONE (13:01)
[2018-08-05] MEDS ORDERED: PROMETHAZINE 25 MG/ML VIAL ONE (13:01)
[2018-08-05 13:11] LABS: Absolute Lymphocytes (CBC) 0.7 K/uL (0.7-4.9); Absolute Monocytes 0.3 K/uL (0.1-1.3); Absolute Neutrophil 12.4 K/uL (1.8-8.0); Basophils % 0.2 % (0-1.3); Hematocrit 41.4 % (36.0-45.0); Lymphocytes % 5.1 % (15.3-44.8); MCH 30.6 pg (27.0-35.0); MCV 89.2 fL (80-100); MPV 7.8 fL (7.6-11.3); Monocytes % 2.4 % (3.3-12.3); RBC Red Blood Cell Count 4.64 M/uL (3.86-4.86)
[2018-08-05 13:18] LABS: ALT/SGPT 17 U/L (12-78); AST/SGOT 16 U/L (15-37); Albumin 3.3 g/dL (3.4-5.0); Alkaline Phosphatase 53 U/L (45-117); Amylase Level 54 U/L (25-115); BUN Blood Urea Nitrogen 7 mg/dL (7-18); Bicarbonate 24 mmol/L (21-32); Bilirubin Direct 0.1 mg/dL (0-0.2); Bilirubin Total 0.5 mg/dL (0.2-1.0); Glucose Level 103 mg/dL (74-106); Lipase 105 U/L (73-393); Potassium 3.7 mmol/L (3.5-5.1); Protein, Total 7.6 g/dL (6.4-8.2); Sodium Level 139 mmol/L (136-145)
[2018-08-05 13:36] LABS: Blood Morphology Comment NOT SEEN (NOT SEEN); Platelet Estimate ADEQ; Urine White Blood Cell Casts OK
[2018-08-05] MEDS ORDERED: ONDANSETRON 4 MG/2 ML VIAL ONE ×2 (16:16→18:53)
[2018-08-05 16:59] LABS: Urine Bacteria <20 /HPF (<20); Urine Culture Reflex Order REFLEXED; Urine RBC <5 /HPF (NONE SEEN)
[2018-08-05 17:06] LABS: Urine Blood NEGATIVE (NEG); Urine Glucose NEGATIVE (NEG); Urine Protein NEGATIVE (NEG); Urine Specific Gravity >1.030 (1.005-1.030); Urine pH 6.5 (5.0-7.0)
[2018-08-05] MEDS ORDERED: D5 0.45 NS 1,000 ML IV ONE (18:26)
[2018-08-05] MEDS ORDERED: SCOPOLAMINE HYDROBROMIDE PATCH TD SCH (18:30)
[2018-08-05] MEDS ORDERED: SCOPOLAMINE HYDROBROMIDE PATCH TD ONE (18:30)
--- NOTE | 2018-08-05 18:30 | EDPHYS ---
Physician Documentation [facility] Name: Suraj Fuentes Age: 27 yrs Sex: Female : 1990 Arrival Date: 08/05/2018 Time: 12:31 Bed 17 Private MD: ED Physician Pancho Greene HPI: 08/05 12:48 This 27 yrs old Female presents to ER via Ambulatory with complaints of cp Vomiting. 12:48 The patient presents to the emergency department with nausea, with "dry heaves", cp vomiting, that is continuous, described as bilious. Onset: The symptoms/episode began/occurred this morning. Possible causes: . Associated signs and symptoms: Pertinent positives: abdominal pain, Pertinent negatives: constipation, diarrhea, fever, GI bleeding. Severity of symptoms: in the emergency department the symptoms are unchanged despite home interventions. 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 - Social history:: Smoking status: Patient/guardian denies using tobacco, Patient/guardian denies using alcohol. - Ebola Screening: : Patient negative for fever greater than or equal to 101.5 degrees Fahrenheit, and additional compatible Ebola Virus Disease symptoms Patient denies exposure to infectious person Patient denies travel to an Ebola-affected area in the 21 days before illness onset. ROS: 12:55 Constitutional: Positive for poor PO intake, Negative for body aches, chills, fever. cp 12:55 Eyes: Negative for injury, pain, redness, and discharge. cp 12:55 ENT: Negative for drainage from ear(s), ear pain, sore throat, difficulty swallowing, difficulty handling secretions. 12:55 Cardiovascular: Negative for chest pain. 12:55 Respiratory: Negative for cough, shortness of breath, wheezing. 12:55 Abdomen/GI: Positive for nausea and vomiting, Negative for abdominal pain, diarrhea, constipation, hematemesis, black/tarry stool, rectal bleeding. 12:55 Back: Negative for radiated pain. 12:55 : Negative for urinary symptoms, vaginal bleeding, vaginal discharge, vaginal leakage of fluids. 12:55 Skin: Negative for cellulitis, rash. 12:55 Neuro: Negative for altered mental status, dizziness, headache. 12:55 All other systems are negative. Exam: 13:00 Constitutional: The patient appears in no acute distress, alert, awake, non-toxic, well cp developed, well nourished, uncomfortable. 13:00 Head/Face: Normocephalic, atraumatic. cp 13:00 Eyes: Periorbital structures: appear normal, Pupils: equal, round, and reactive to light and accomodation, Extraocular movements: intact throughout, Conjunctiva: normal, no exudate, no injection, Sclera: no appreciated abnormality, Lids and lashes: appear normal, bilaterally. 13:00 ENT: External ear(s): are unremarkable, Ear canal(s): are normal, clear, TM's: bulging, is not appreciated, bilaterally, dullness, bilaterally, erythema, is not appreciated, bilaterally, Nose: is normal, Mouth: Lips: moist, Oral mucosa: pink and intact, moist, Posterior pharynx: is normal, airway is patent, no erythema, no exudate. 13:00 Neck: ROM/movement: is normal, is supple, without pain, no range of motions limitations, no meningismus, no nuchal rigidity. 13:00 Chest/axilla: Inspection: normal, Palpation: is normal, no crepitus, no tenderness. 13:00 Cardiovascular: Rate: tachycardic, Rhythm: regular, Pulses: Pulses are 2+ in right radial artery and left radial artery. 13:00 Respiratory: the patient does not display signs of respiratory distress, Respirations: normal, no use of accessory muscles, no retractions, no splinting, no tachypnea, labored breathing, is not present, Breath sounds: are clear throughout, no decreased breath sounds, no stridor, no wheezing. 13:00 Abdomen/GI: Inspection: abdomen appears normal, Bowel sounds: active, all quadrants, Palpation: soft, in all quadrants, mild abdominal tenderness, in the epigastric area, rebound tenderness, is not appreciated, voluntary guarding, is not appreciated, involuntary guarding, is not appreciated. 13:00 Back: pain, is absent, ROM is normal. 13:00 Skin: cellulitis, is not appreciated, no rash present. Vital Signs: 12:34 BP 125 / 81; Pulse 112; Resp 18; Temp 97.0(TE); Pulse Ox 97% on R/A; Weight 74.84 kg; hj Height 5 ft. 2 in. (157.48 cm); Pain 0/10; 13:21 BP 124 / 67; Pulse 100; Resp 20; Pulse Ox 96% ; sv 14:28 BP 104 / 60; Pulse 106; Resp 18; Pulse Ox 98% ; sv 15:16 BP 123 / 70; Pulse 78; Resp 16; Pulse Ox 100% ; sv 16:17 BP 134 / 85; Pulse 83; Resp 20; Pulse Ox 100% ; sv 17:40 BP 100 / 52; Pulse 103; Resp 18; Pulse Ox 100% ; sv 18:24 BP 101 / 52; Pulse 93; Resp 18; Pulse Ox 97% ; sv 19:07 BP 107 / 64; Pulse 88; Resp 16; Pulse Ox 98% on R/A; mt 20:20 BP 102 / 57; Pulse 76; Resp 17 S; Pulse Ox 99% on R/A; jd3 12:34 Body Mass Index 30.18 (74.84 kg, 157.48 cm) hj MDM: 12:36 Patient medically screened. cp 13:00 Differential diagnosis: gastritis, viral gastroenteritis, gastroenteritis, hyperemesis, cp gravi dum, electrolyte abnormality. 18:30 Data reviewed: vital signs, nurses notes, lab test result(s), and as a result, I will cp admit patient. 18:30 Counseling: I had a detailed discussion with the patient and/or guardian regarding: the cp historical points, exam findings, and any diagnostic results supporting the discharge/admit diagnosis, lab results. Physician consultation: Elli Wolff MD was contacted at 18:20, regarding admission, to labor and delivery, as patient refuses transfer to [facility] for admission. 08/05 12:40 Order name: Amylase, Serum; Complete Time: 14:03 cp 08/05 12:40 Order name: Basic Metabolic Panel; Complete Time: 14:03 cp 08/05 14:03 Interpretation: Normal except: CL 110. cp 08/05 12:40 Order name: CBC with Diff; Complete Time: 14:03 cp 08/05 14:03 Interpretation: Normal except: WBC 13.4; ANGELITO% 92.3; LYM% 5.1; MN% 2.4; NEUT A 12.4. 08/05 12:40 Order name: Creatinine for Radiology; Complete Time: 14:03 08/05 12:40 Order name: Hepatic Function; Complete Time: 14:03 08/05 14:03 Interpretation: Normal except: ALB 3.3; GLOB 4.3; A/G 0.8. 08/05 12:40 Order name: Lipase; Complete Time: 14:03 08/05 12:40 Order name: Urine Microscopic Only; Complete Time: 17:44 08/05 13:14 Order name: CBC Smear Scan; Complete Time: 14:03 [facility] 08/05 16:51 Order name: Urine Dipstick--Ancillary (enter results); Complete Time: 17:44 08/05 16:51 Order name: Urine --Ancillary (enter results); Complete Time: 17:44 08/05 17:01 Order name: Urine Culture [facility] 08/05 12:40 Order name: Urine Test (obtain specimen); Complete Time: 16:35 08/05 12:40 Order name: IV Saline Lock; Complete Time: 12:48 08/05 12:40 Order name: Labs collected and sent; Complete Time: 12:48 08/05 12:40 Order name: Urine Dipstick-Ancillary (obtain specimen); Complete Time: 16:35 08/05 12:49 Order name: FHT's; Complete Time: 13:20 08/05 14:04 Order name: PO challenge; Complete Time: 15:20 cp Administered Medications: Discontinued: NS 0.9% 1000 ml IV at 125 ml/hr continuous 12:58 Drug: NS 0.9% 1000 ml Route: IV; Rate: 1 bolus; Site: right antecubital; em 15:20 Follow up: Response: No adverse reaction; IV Status: Completed infusion; IV Intake: sv 1000ml 12:59 Drug: Pepcid 20 mg Route: IVP; Site: right antecubital; sv 13:15 Follow up: Response: No adverse reaction sv 12:59 Not Given (Other Intervention Used): Phenergan Suppository 25 mg MS once em 12:59 Drug: Phenergan 25 mg Route: IVP; Site: right antecubital; sv 13:15 Follow up: Response: No adverse reaction sv 13:00 Drug: Benadryl 12.5 mg Route: IVP; Site: right antecubital; sv 13:15 Follow up: Response: No adverse reaction sv 14:21 Drug: NS 0.9% 1000 ml Route: IV; Rate: 1 bolus; Site: right antecubital; sv 16:23 Follow up: Response: No adverse reaction; IV Status: Completed infusion; IV Intake: sv 1000ml 16:16 Drug: Zofran 4 mg Route: IVP; Site: right antecubital; sv 16:23 Follow up: Response: No adverse reaction sv 16:34 Drug: NS 0.9% 1000 ml Route: IV; Rate: 1 bolus; Site: right antecubital; sv 17:36 Follow up: Response: No adverse reaction; IV Status: Completed infusion; IV Intake: sv 1000ml 17:37 Drug: NS 0.9% 1000 ml Route: IV; Rate: 125 ml/hr; Site: right antecubital; sv 18:23 Drug: D5-1/2 NS 125 ml Route: IV; Rate: ml/hr; Site: right antecubital; sv 20:38 Follow up: Response: No adverse reaction; IV Status: Infusion continued upon admission jd3 18:45 Drug: Scopolamine 1 patches Route: Transdermal; Site: affected area; sv 18:50 Drug: Zofran 4 mg Route: IVP; Site: right antecubital; sv 18:53 Follow up: Response: No adverse reaction sv Disposition: 08/06 06:36 Co-signature as Attending Physician, Pancho Greene MD I agree with the assessment and jessica plan of care. Disposition: 08/05/18 18:30 Hospitalization ordered by Elli Wolff for Observation. Preliminary diagnosis is Hyperemesis gravidarum with metabolic disturbance. - Bed [facility] for [facility]. - Status is Observation. jd3 - Condition is Stable. - Problem is new. - Symptoms have improved. UTI on Admission? No Signatures: Dispatcher [employer] Brittney Nichols RN RN sv Anderson, Corey, MD MD cha Munoz, Edgar, RENAL DIETITIAN RENAL DIETITIAN em Jared Caldera RN RN Pancho Soriano PA PA cp Davies, Jonathon, RN RN jd3 Corrections: (The following items were deleted from the chart) 08/05 20:36 18:30 Hospitalization Ordered by Elli Wolff MD for Observation. Preliminary diagnosis jd3 is Hyperemesis gravidarum with metabolic disturbance. Bed requested for [facility]. Status is Observation. Condition is Stable. Problem is new. Symptoms have improved. UTI on Admission? No. cp
--- NOTE | 2018-08-05 18:30 | ER ---
Nurse's Notes [facility] Name: Suraj Fuentes Age: 27 yrs Sex: Female : 1990 Arrival Date: 08/05/2018 Time: 12:31 Bed 17 Private MD: Diagnosis: Hyperemesis gravidarum with metabolic disturbance Presentation: 08/05 12:32 Presenting complaint: Patient states: LMP- 04/08/18; 18 weeks , at 5 am today i hj started vomiting, i feel,weak; denies abd pain;. Transition of care: patient was not received from another setting of care. Onset of symptoms was August 05, 2018. Risk Assessment: Do you want to hurt yourself or someone else? Patient reports no desire to harm self or others. Initial Sepsis Screen: Does the patient meet any 2 criteria? No. Patient's initial sepsis screen is negative. Does the patient have a suspected source of infection? No. Patient's initial sepsis screen is negative. Care prior to arrival: None. 12:32 Method Of Arrival: Ambulatory 12:32 Acuity: SHAW 3 hj Triage Assessment: 12:34 General: Appears in no apparent distress. uncomfortable, Behavior is calm, cooperative, hj appropriate for age. Pain: Denies pain. GI: Reports nausea, vomiting. 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 - Social history:: Smoking status: Patient/guardian denies using tobacco, Patient/guardian denies using alcohol. - Ebola Screening: : Patient negative for fever greater than or equal to 101.5 degrees Fahrenheit, and additional compatible Ebola Virus Disease symptoms Patient denies exposure to infectious person Patient denies travel to an Ebola-affected area in the 21 days before illness onset. Screenin:34 Abuse screen: Denies threats or abuse. Denies injuries from another. Nutritional hj screening: No deficits noted. Tuberculosis screening: No symptoms or risk factors identified. Fall Risk None identified. Assessment: 12:34 GI: Abdomen is non-distended. hj 13:20 General: Appears uncomfortable, Behavior is cooperative, appropriate for age. Pain: sv Denies pain. Neuro: Level of Consciousness is awake, alert, obeys commands, Oriented to person, place, time, situation, Moves all extremities. Full function. Respiratory: Respiratory effort is even, unlabored, Respiratory pattern is regular, symmetrical. GI: Abdomen is flat, Pt is actively vomiting bile. Derm: Skin is pink, warm \T\ dry. 14:20 Reassessment: Patient appears in no apparent distress at this time. No changes from sv previously documented assessment. Patient and/or family updated on plan of care and expected duration. Pain level reassessed. Patient is alert, oriented x 3, equal unlabored respirations, skin warm/dry/pink. 14:30 Reassessment: Patient and/or family updated on plan of care and expected duration. Pain sv level reassessed. Patient is alert, oriented x 3, equal unlabored respirations, skin warm/dry/pink. GI: Pt is actively vomiting bile. 15:16 Reassessment: Patient appears in no apparent distress at this time. Patient and/or sv family updated on plan of care and expected duration. Pain level reassessed. Patient is alert, oriented x 3, equal unlabored respirations, skin warm/dry/pink. 15:23 Reassessment: Pt has kept her popsicle down without vomiting. sv 16:15 Reassessment: Patient and/or family updated on plan of care and expected duration. Pain sv level reassessed. Patient is alert, oriented x 3, equal unlabored respirations, skin warm/dry/pink. GI: Pt is actively vomiting. 18:24 Reassessment: Patient appears in no apparent distress at this time. Patient and/or sv family updated on plan of care and expected duration. Pain level reassessed. Patient is alert, oriented x 3, equal unlabored respirations, skin warm/dry/pink. 18:43 Reassessment: Patient and/or family updated on plan of care and expected duration. Pain sv level reassessed. Patient is alert, oriented x 3, equal unlabored respirations, skin warm/dry/pink. GI: Reports nausea, vomiting, Informed Pancho PA. 19:25 Reassessment: Patient appears in no apparent distress at this time. Patient and/or jd3 family updated on plan of care and expected duration. Pain level reassessed. Patient is alert, oriented x 3, equal unlabored respirations, skin warm/dry/pink. reports feeling relief from nausea at this time. awaiting room assignment. 20:20 Reassessment: Patient appears in no apparent distress at this time. No changes from jd3 previously documented assessment. Patient and/or family updated on plan of care and expected duration. Pain level reassessed. Patient is alert, oriented x 3, equal unlabored respirations, skin warm/dry/pink. 20:34 Reassessment: Patient appears in no apparent distress at this time. No changes from jd3 previously documented assessment. Patient and/or family updated on plan of care and expected duration. Pain level reassessed. Patient is alert, oriented x 3, equal unlabored respirations, skin warm/dry/pink. supervisor porcelain department reported to move pt up to L\T\D treatment/triage room. Vital Signs: 12:34 BP 125 / 81; Pulse 112; Resp 18; Temp 97.0(TE); Pulse Ox 97% on R/A; Weight 74.84 kg; hj Height 5 ft. 2 in. (157.48 cm); Pain 0/10; 13:21 BP 124 / 67; Pulse 100; Resp 20; Pulse Ox 96% ; sv 14:28 BP 104 / 60; Pulse 106; Resp 18; Pulse Ox 98% ; sv 15:16 BP 123 / 70; Pulse 78; Resp 16; Pulse Ox 100% ; sv 16:17 BP 134 / 85; Pulse 83; Resp 20; Pulse Ox 100% ; sv 17:40 BP 100 / 52; Pulse 103; Resp 18; Pulse Ox 100% ; sv 18:24 BP 101 / 52; Pulse 93; Resp 18; Pulse Ox 97% ; sv 19:07 BP 107 / 64; Pulse 88; Resp 16; Pulse Ox 98% on R/A; mt 20:20 BP 102 / 57; Pulse 76; Resp 17 S; Pulse Ox 99% on R/A; jd3 12:34 Body Mass Index 30.18 (74.84 kg, 157.48 cm) Vitals: 13:19 Heart Tones 150. sv ED Course: 12:31 Patient arrived in ED. hj 12:33 Triage completed. hj 12:34 Arm band placed on right wrist. hj 12:35 Patient has correct armband on for positive identification. Placed in gown. Bed in low hj position. Call light in reach. Side rails up X 1. Adult w/ patient. 12:36 Pancho Pryor PA is PHCP. cp 12:36 Pancho Greene MD is Attending Physician. cp 12:45 Inserted saline lock: 20 gauge in right antecubital area, using aseptic technique. em 12:45 Initial lab(s) drawn, by al, sent to lab. em 12:47 Brittney Andino, ALFONZO is Primary Nurse. sv 12:50 Warm blanket given. Pulse ox on. NIBP on. mh5 13:21 Awaiting lab results. sv 16:36 Urine collected: clean catch specimen, ham colored. mh5 16:36 Urine Microscopic Only Sent. mh5 18:29 Elli Wolff MD is Hospitalizing Provider. cp 18:57 Primary Nurse role handed off by Brittney Andino RN sv 18:57 Report given to Eladio MEJÍA. sv 19:25 Eladio Rivas RN is Primary Nurse. jd3 20:35 No provider procedures requiring assistance completed. Patient admitted, IV remains in jd3 place. Administered Medications: Discontinued: NS 0.9% 1000 ml IV at 125 ml/hr continuous 12:58 Drug: NS 0.9% 1000 ml Route: IV; Rate: 1 bolus; Site: right antecubital; em 15:20 Follow up: Response: No adverse reaction; IV Status: Completed infusion; IV Intake: sv 1000ml 12:59 Drug: Pepcid 20 mg Route: IVP; Site: right antecubital; sv 13:15 Follow up: Response: No adverse reaction sv 12:59 Not Given (Other Intervention Used): Phenergan Suppository 25 mg FL once em 12:59 Drug: Phenergan 25 mg Route: IVP; Site: right antecubital; sv 13:15 Follow up: Response: No adverse reaction sv 13:00 Drug: Benadryl 12.5 mg Route: IVP; Site: right antecubital; sv 13:15 Follow up: Response: No adverse reaction sv 14:21 Drug: NS 0.9% 1000 ml Route: IV; Rate: 1 bolus; Site: right antecubital; sv 16:23 Follow up: Response: No adverse reaction; IV Status: Completed infusion; IV Intake: sv 1000ml 16:16 Drug: Zofran 4 mg Route: IVP; Site: right antecubital; sv 16:23 Follow up: Response: No adverse reaction sv 16:34 Drug: NS 0.9% 1000 ml Route: IV; Rate: 1 bolus; Site: right antecubital; sv 17:36 Follow up: Response: No adverse reaction; IV Status: Completed infusion; IV Intake: sv 1000ml 17:37 Drug: NS 0.9% 1000 ml Route: IV; Rate: 125 ml/hr; Site: right antecubital; sv 18:23 Drug: D5-1/2 NS 125 ml Route: IV; Rate: ml/hr; Site: right antecubital; sv 20:38 Follow up: Response: No adverse reaction; IV Status: Infusion continued upon admission jd3 18:45 Drug: Scopolamine 1 patches Route: Transdermal; Site: affected area; sv 18:50 Drug: Zofran 4 mg Route: IVP; Site: right antecubital; sv 18:53 Follow up: Response: No adverse reaction sv Intake: 15:20 IV: 1000ml; Total: 1000ml. sv 16:23 IV: 1000ml; Total: 2000ml. sv 17:36 IV: 1000ml; Total: 3000ml. sv Output: 14:30 Gastric: 100ml (Emesis); Total: 100ml. sv 16:15 Gastric: 100ml (Emesis); Total: 200ml. sv Outcome: 18:30 Decision to Hospitalize by Provider. cp 20:35 Admitted to L \T\ D, accompanied by ramon, via stretcher, room treatment/triage room, with jd3 chart, Report called to Queenie MEJÍA 20:35 Condition: stable 20:35 Instructed on the need for admit, Demonstrated understanding of instructions. 20:36 Patient left the ED. jd3 Signatures: Brittney Andino RN RN Nathan Acosta, COMPUTER PROGRAMMER CHIEF COMPUTER PROGRAMMER CHIEF Jared Meyer RN RN hj Page, Corey, PA PA cp Martinez, Alesha [facility] [place], [place] Eladio Nava RN RN jd3 Corrections: (The following items were deleted from the chart) 12:36 12:34 Pulse 112bpm; Resp 18bpm; Pulse Ox 97% RA; Temp 97.0F Temporal; 74.84 kg; Height 5 ft. 2 in.; BMI: 30.1; Pain 0/10; hj 19:29 19:25 Reassessment: Patient appears in no apparent distress at this time. Patient jd3 and/or family updated on plan of care and expected duration. Pain level reassessed. Patient is alert, oriented x 3, equal unlabored respirations, skin warm/dry/pink. reports feeling relief from nausea at this time. rolly 20:43 20:35 Admitted to L \T\ D, accompanied by ramon, via stretcher, room treatment/triage [facility] room, with chart, rolly
[2018-08-05 20:43] VITALS: TEMP 97
[2018-08-05 20:55] VITALS: BP 102/57; O2SAT 99
== END 2018-08-05 21:11 | disposition home or self-care (01) ==
LOC: ER 12:28 → ERHOLD 18:41 → UNDOADMOB 18:41 → ER 21:11
DX: O21.1 Hyperemesis gravidarum with metabolic disturbance (principal); Z3A.18 18 weeks gestation of pregnancy; Z88.6 Allergy status to analgesic agent; Z91.018 Allergy to other foods
CPT/HCPCS: 36415; 80048; 80076; 81003; 81015; 81025; 82150; 83690; 85025; 87086; 87088; 96361; 96374; 96375; 99285; J2405; J2550; J7030

== ENCOUNTER 2018-08-14 10:46 | Emergency (ER) | payer MEDICAID ==
[2018-08-14] MEDS ORDERED: NA CHLORIDE 0.9% 1,000 ML ONE ×2 (11:41→12:57)
[2018-08-14] MEDS ORDERED: ONDANSETRON 4 MG/2 ML VIAL ONE (11:41)
[2018-08-14] MEDS ORDERED: ACETAMINOPHEN 500 MG TAB ONE (11:41)
[2018-08-14] MEDS ORDERED: PROMETHAZINE 25 MG/ML VIAL ONE (11:58)
[2018-08-14] MEDS ORDERED: NA CHLORIDE 0.9% 250 ML ONE (11:58)
[2018-08-14 12:08] LABS: Urine Blood NEGATIVE (NEG); Urine Glucose NEGATIVE (NEG); Urine Protein NEGATIVE (NEG); Urine pH 8.5 (5.0-7.0)
[2018-08-14 12:10] LABS: BUN Blood Urea Nitrogen 5 mg/dL (7-18); Bicarbonate 23 mmol/L (21-32); Glucose Level 79 mg/dL (74-106); Potassium 4.2 mmol/L (3.5-5.1); Sodium Level 138 mmol/L (136-145)
[2018-08-14] MEDS ORDERED: METOCLOPRAMIDE 10 MG/2mL INJ ONE (12:57)
[2018-08-14 12:59] LABS: Absolute Lymphocytes (CBC) 1.5 K/uL (0.7-4.9); Absolute Monocytes 0.5 K/uL (0.1-1.3); Absolute Neutrophil 6.4 K/uL (1.8-8.0); Basophils % 0.3 % (0-1.3); Eosinophils % 0.5 % (0-4.4); Hematocrit 35.2 % (36.0-45.0); Lymphocytes % 17.6 % (15.3-44.8); MCV 89.3 fL (80-100); MPV 8.2 fL (7.6-11.3); Monocytes % 5.9 % (3.3-12.3); RBC Red Blood Cell Count 3.94 M/uL (3.86-4.86)
[2018-08-14] MEDS ORDERED: SCOPOLAMINE HYDROBROMIDE PATCH TD ONE (15:30)
[2018-08-14] MEDS ORDERED: methylPREDNISolone 4 MG TAB PO ONE (16:00)
--- NOTE | 2018-08-14 16:03 | EDPHYS ---
Physician Documentation [facility] Name: Suraj Fuentes Age: 27 yrs Sex: Female : 1990 Arrival Date: 08/14/2018 Time: 10:50 Bed 5 Private MD: None, None ED Physician Sharath Rod HPI: 08/14 14:34 This 27 yrs old Female presents to ER via Ambulatory with complaints of jr8 Vomiting, 19 wks . 14:34 The patient presents to the emergency department with nausea, vomiting. Onset: The jr8 symptoms/episode began/occurred acutely, today. Possible causes: . The symptoms are aggravated by food , The symptoms are alleviated by nothing. Associated signs and symptoms: The patient has no apparent associated signs or symptoms. Severity of symptoms: At their worst the symptoms were moderate in the emergency department the symptoms are unchanged. The patient has not experienced similar symptoms in the past. The patient has not recently seen a physician. HOT TAMALE MAN: 11:00 3, Full Term 0, Premature 2, 0, Living 2, LMP 04/08/2018 aa5 Historical: - Allergies: 11:00 Ibuprofen; aa5 11:00 ORANGES; aa5 - Home Meds: 11:07 Diclegis Oral [Active]; Phenergan Supp Rectal [Active]; Vitamin Oral [Active]; hj Zofran Oral [Active]; - PMHx: 11:00 None; aa5 - PSHx: 11:00 Appendectomy; aa5 - Immunization history:: Adult Immunizations up to date. - Social history:: Smoking status: Patient/guardian denies using tobacco. - Ebola Screening: : No symptoms or risks identified at this time. ROS: 14:34 Eyes: Negative for injury, pain, redness, and discharge, ENT: Negative for injury, jr8 pain, and discharge, Neck: Negative for injury, pain, and swelling, Cardiovascular: Negative for chest pain, palpitations, and edema, Respiratory: Negative for shortness of breath, cough, wheezing, and pleuritic chest pain, Back: Negative for injury and pain, MS/Extremity: Negative for injury and deformity, Skin: Negative for injury, rash, and discoloration, Neuro: Negative for headache, weakness, numbness, tingling, and seizure. 14:34 Abdomen/GI: Positive for nausea and vomiting, Negative for abdominal pain, diarrhea, abdominal cramps, abdominal distension, anorexia, dysphagia, hematemesis, black/tarry stool, rectal pain, rectal bleeding, bowel incontinence, flatulence. Exam: 14:34 Eyes: Pupils equal round and reactive to light, extra-ocular motions intact. Lids and jr8 lashes normal. Conjunctiva and sclera are non-icteric and not injected. Cornea within normal limits. Periorbital areas with no swelling, redness, or edema. ENT: Nares patent. No nasal discharge, no septal abnormalities noted. Tympanic membranes are normal and external auditory canals are clear. Oropharynx with no redness, swelling, or masses, exudates, or evidence of obstruction, uvula midline. Mucous membranes moist. Neck: Trachea midline, no thyromegaly or masses palpated, and no cervical lymphadenopathy. Supple, full range of motion without nuchal rigidity, or vertebral point tenderness. No Meningismus. Cardiovascular: Regular rate and rhythm with a normal S1 and S2. No gallops, murmurs, or rubs. Normal PMI, no JVD. No pulse deficits. Respiratory: Lungs have equal breath sounds bilaterally, clear to auscultation and percussion. No rales, rhonchi or wheezes noted. No increased work of breathing, no retractions or nasal flaring. Back: No spinal tenderness. No costovertebral tenderness. Full range of motion. Skin: Warm, dry with normal turgor. Normal color with no rashes, no lesions, and no evidence of cellulitis. MS/ Extremity: Pulses equal, no cyanosis. Neurovascular intact. Full, normal range of motion. Neuro: Awake and alert, GCS 15, oriented to person, place, time, and situation. Cranial nerves II-XII grossly intact. Motor strength 5/5 in all extremities. Sensory grossly intact. Cerebellar exam normal. Normal gait. 14:34 Abdomen/GI: Inspection: gravid appearance, Bowel sounds: active, Palpation: abdomen is soft and non-tender, in all quadrants, Indicators: McBurney's point is not tender, Morris's sign is negative, Rovsing's sign is negative, Liver: no appreciated palpable abnormalities, tenderness. Vital Signs: 11:00 BP 127 / 79; Pulse 98; Resp 16 S; Temp 98.0(TE); Pulse Ox 98% on R/A; Weight 74.84 kg aa5 (R); Pain 7/10; 11:49 BP 118 / 78; Pulse 95; Resp 18; Pulse Ox 100% on R/A; hj 13:08 BP 111 / 65; Pulse 89; Resp 18; Pulse Ox 100% on R/A; hj 14:14 BP 115 / 67; Pulse 88; Resp 18; Pulse Ox 100% on R/A; hj 16:31 BP 118 / 68; Pulse 87; Resp 18; Pulse Ox 100% on R/A; hj MDM: 11:15 Patient medically screened. [facility] 14:34 Data reviewed: vital signs, nurses notes, lab test result(s), and as a result, I will [facility] admit patient. Data interpreted: Pulse oximetry: on room air is 100 %. Interpretation: normal. Counseling: I had a detailed discussion with the patient and/or guardian regarding: the historical points, exam findings, and any diagnostic results supporting the discharge/admit diagnosis, lab results, the need for further work-up and treatment in the hospital. ED course: Called Dr. Amezcua and got answering service. Will call me back soon . 16:01 ED course: Patient now tolerating popsicle's. Discussed case with Dr. Amezcua. [facility] Recommended Methylprednisolone taper which we will start her on. . 08/14 11:16 Order name: CBC with Diff; Complete Time: 13:02 [facility] 08/14 11:16 Order name: Basic Metabolic Panel; Complete Time: 12:27 [facility] 08/14 11:37 Order name: Urine Dipstick--Ancillary (enter results); Complete Time: 12:27 08/14 11:37 Order name: Urine --Ancillary (enter results); Complete Time: 12:27 08/14 14:50 Order name: UDS [facility] 08/14 14:51 Order name: TSH [facility] 08/14 14:51 Order name: T4 Free [facility] 08/14 11:16 Order name: IV; Complete Time: 11:16 [facility] 08/14 11:16 Order name: Urine Dipstick-Ancillary (obtain specimen); Complete Time: 11:16 [facility] 08/14 11:46 Order name: EKG; Complete Time: 11:47 08/14 12:07 Order name: Labs - recollect needed; Complete Time: 12:20 eb Administered Medications: 11:16 Drug: NS 0.9% 1000 ml Route: IV; Rate: 1000 ml; Site: right antecubital; hj 11:46 Follow up: IV Status: Infusion continued hj 11:16 Drug: Zofran 8 mg Route: IVP; Site: right antecubital; hj 11:47 Follow up: Response: No adverse reaction; Nausea is decreased hj 11:16 Drug: Tylenol 1000 mg Route: PO; hj 11:47 Follow up: Response: No adverse reaction hj 11:51 Drug: Phenergan 25 mg {Note: in a 250 ml of NS.} Route: IVP; Site: right antecubital; hj 12:20 Follow up: Response: No adverse reaction iw 12:50 Drug: Reglan 10 mg Route: IVP; Site: right antecubital; hj 12:54 Follow up: Response: No adverse reaction hj 12:50 Drug: NS 0.9% 1000 ml Route: IV; Rate: 1000 ml; Site: right antecubital; hj 16:09 Follow up: IV Status: Completed infusion; IV Intake: 1000ml hj 16:30 Drug: methylPREDNISolone 16 mg Route: PO; hj 16:30 Follow up: Response: No adverse reaction hj Disposition: 17:12 Co-signature as Attending Physician, Sharath Rod MD I agree with the assessment and kdr plan of care. Disposition: 08/14/18 16:02 Discharged to Home. Impression: Vomiting of , unspecified. - Condition is Stable. - Discharge Instructions: Hyperemesis Gravidarum, Morning Sickness, [id number]. - Medication Reconciliation Form, Thank You Letter, Antibiotic Education, Prescription Opioid Use form. - Follow up: Private Physician; When: Tomorrow; Reason: Recheck today's complaints, Continuance of care, Re-evaluation by your physician. - Problem is new. - Symptoms have improved. - Notes: Written prescription for Methylprednisolone given Signatures: Dispatcher [employer] EDSharath Reddy MD MD [facility] Heather Cummins RN RN aa5 Neel Valenzuela PA PA jr8 Jared Caldera RN RN hj Botello, Elizabeth eb Williams, Irene RN iw Corrections: (The following items were deleted from the chart) 16:03 16:01 ED course: Patient now tolerating popsicle's. Discussed case with Dr. Amezcua. jr8 Recommended Methylprednisone taper which we will start her on. . jr8 16:33 16:02 08/14/2018 16:02 Discharged to Home. Impression: Vomiting of , hj unspecified. Condition is Stable. Forms are Medication Reconciliation Form, Thank You Letter, Antibiotic Education, Prescription Opioid Use. Follow up: Private Physician; When: Tomorrow; Reason: Recheck today's complaints, Continuance of care, Re-evaluation by your physician. Problem is new. Symptoms have improved. jr8
--- NOTE | 2018-08-14 16:03 | ER ---
Nurse's Notes [facility] Name: Suraj Fuentes Age: 27 yrs Sex: Female : 1990 Arrival Date: 08/14/2018 Time: 10:50 Bed 5 Private MD: None, None Diagnosis: Vomiting of , unspecified Presentation: 08/14 10:57 Presenting complaint: Patient states: Nausea and vomiting. Pt states "I've had vomiting aa5 really bad throughout the whole ". Pt also reports pelvic pressure since this morning, denies vaginal bleeding. Pt reports taking Reglan, Benadryl, and Pepcid this morning. Reports being 19 weeks . Transition of care: patient was not received from another setting of care. Onset of symptoms was July 2018. Risk Assessment: Do you want to hurt yourself or someone else? Patient reports no desire to harm self or others. Initial Sepsis Screen: Does the patient meet any 2 criteria? No. Patient's initial sepsis screen is negative. Does the patient have a suspected source of infection? No. Patient's initial sepsis screen is negative. Care prior to arrival: None. 10:57 Method Of Arrival: Ambulatory aa5 10:57 Acuity: SHAW 3 aa5 Triage Assessment: 11:06 General: Appears in no apparent distress. uncomfortable, Behavior is calm, cooperative, hj appropriate for age. Pain: Denies pain. GI: Reports nausea, vomiting. 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 - Social history:: Smoking status: Patient/guardian denies using tobacco. - Ebola Screening: : No symptoms or risks identified at this time. Screenin:05 Abuse screen: Denies threats or abuse. Denies injuries from another. Nutritional hj screening: No deficits noted. Tuberculosis screening: No symptoms or risk factors identified. Fall Risk None identified. Assessment: 11:06 GI: Abdomen is non-distended, Pt is actively vomiting. hj 11:06 General: Appears in no apparent distress. uncomfortable, Behavior is calm, cooperative, hj appropriate for age. Pain: Complains of pain in chest and abdomen. Neuro: Level of Consciousness is awake, alert, obeys commands, Oriented to person, place, time, situation, Appropriate for age. Cardiovascular: Capillary refill < 3 seconds Patient's skin is warm and dry. Respiratory: Airway is patent Respiratory effort is even, unlabored, Respiratory pattern is regular, symmetrical. GI: Reports nausea, vomiting. : No signs and/or symptoms were reported regarding the genitourinary system. EENT: No signs and/or symptoms were reported regarding the EENT system. Derm: No signs and/or symptoms reported regarding the dermatologic system. Musculoskeletal: No signs and/or symptoms reported regarding the musculoskeletal system. 11:48 Reassessment: Patient and/or family updated on plan of care and expected duration. Pain hj level reassessed. Patient is alert, oriented x 3, equal unlabored respirations, skin warm/dry/pink. complaints of chest pain, EKG paged; MD notified;. 13:08 Reassessment: Patient and/or family updated on plan of care and expected duration. Pain hj level reassessed. Patient is alert, oriented x 3, equal unlabored respirations, skin warm/dry/pink. still complaining of N/V; MD notified with orders;. 14:14 Reassessment: Patient and/or family updated on plan of care and expected duration. Pain hj level reassessed. Patient is alert, oriented x 3, equal unlabored respirations, skin warm/dry/pink. awaiting POC;. 15:30 Reassessment: Patient and/or family updated on plan of care and expected duration. Pain hj level reassessed. Patient is alert, oriented x 3, equal unlabored respirations, skin warm/dry/pink. 16:15 Reassessment: Patient and/or family updated on plan of care and expected duration. Pain hj level reassessed. Patient is alert, oriented x 3, equal unlabored respirations, skin warm/dry/pink. scopolamine patch applied to back of L ear;. Vital Signs: 11:00 BP 127 / 79; Pulse 98; Resp 16 S; Temp 98.0(TE); Pulse Ox 98% on R/A; Weight 74.84 kg aa5 (R); Pain 7/10; 11:49 BP 118 / 78; Pulse 95; Resp 18; Pulse Ox 100% on R/A; hj 13:08 BP 111 / 65; Pulse 89; Resp 18; Pulse Ox 100% on R/A; hj 14:14 BP 115 / 67; Pulse 88; Resp 18; Pulse Ox 100% on R/A; hj 16:31 BP 118 / 68; Pulse 87; Resp 18; Pulse Ox 100% on R/A; hj ED Course: 10:50 Patient arrived in ED. mr 10:51 None, None is Private Physician. mr 10:59 Triage completed. aa5 10:59 Arm band placed on. aa5 11:03 Neel Valenzuela [facility] is [facility]. jr8 11:03 Sharath Rod MD is Attending Physician. jr8 11:04 Jared Caldera, ALFONZO is Primary Nurse. hj 11:06 Patient has correct armband on for positive identification. Placed in gown. Bed in low hj position. Call light in reach. Side rails up X 1. Adult w/ patient. 11:13 Initial lab(s) drawn, by me. Inserted saline lock: 22 gauge in right antecubital area, hj using aseptic technique. Blood collected. 11:16 Urine collected: clean catch specimen, cloudy, ham colored. jb1 11:57 EKG done, by instrument room technician. reviewed by Neel FRY. at1 16:32 No provider procedures requiring assistance completed. IV discontinued, intact, hj bleeding controlled, No redness/swelling at site. Pressure dressing applied. Administered Medications: 11:16 Drug: NS 0.9% 1000 ml Route: IV; Rate: 1000 ml; Site: right antecubital; hj 11:46 Follow up: IV Status: Infusion continued hj 11:16 Drug: Zofran 8 mg Route: IVP; Site: right antecubital; hj 11:47 Follow up: Response: No adverse reaction; Nausea is decreased hj 11:16 Drug: Tylenol 1000 mg Route: PO; hj 11:47 Follow up: Response: No adverse reaction hj 11:51 Drug: Phenergan 25 mg {Note: in a 250 ml of NS.} Route: IVP; Site: right antecubital; hj 12:20 Follow up: Response: No adverse reaction iw 12:50 Drug: Reglan 10 mg Route: IVP; Site: right antecubital; hj 12:54 Follow up: Response: No adverse reaction hj 12:50 Drug: NS 0.9% 1000 ml Route: IV; Rate: 1000 ml; Site: right antecubital; hj 16:09 Follow up: IV Status: Completed infusion; IV Intake: 1000ml hj 16:30 Drug: methylPREDNISolone 16 mg Route: PO; hj 16:30 Follow up: Response: No adverse reaction hj Intake: 16:09 IV: 1000ml; Total: 1000ml. Outcome: 16:02 Discharge ordered by . eric 16:32 Discharged to home ambulatory, with family. hj 16:32 Condition: stable 16:32 Discharge instructions given to patient, family, Instructed on discharge instructions, follow up and referral plans. medication usage, Demonstrated understanding of instructions, follow-up care, medications, Prescriptions given X 1. 16:33 Patient left the ED. Signatures: Chevy Bearden jb1 Alesha Ruelas mr Yuki Cornejo, RN RN iw Heather Cummins RN RN aa5 Neel Valenzuela PA PA jr8 Sharlene Jules, screw eye assembler EKG Tat1 Jared Caldera RN RN Corrections: (The following items were deleted from the chart) 11:00 10:57 Presenting complaint: Patient states: Nausea and vomiting. Pt states "I've had aa5 vomiting really bad throughout the whole ". Pt also reports pelvic pressure since this morning, denies vaginal bleeding. Pt reports taking Reglan, Benadryl, and Pepcid this morning. aa5
[2018-08-14 16:27] LABS: Barbiturates NEGATIVE (NEGATIVE); Benzodiazepines NEGATIVE (NEGATIVE); Cocaine NEGATIVE (NEGATIVE); METHAMPHETAM NEGATIVE (NEGATIVE); Methadone NEGATIVE (NEGATIVE); Opiates NEGATIVE (NEGATIVE); Phencyclidine NEGATIVE (NEGATIVE); THC Cannibis NEGATIVE (NEGATIVE)
[2018-08-14 16:40] LABS: Thyroid Stimulating Hormone 1.1 uIU/mL (0.360-3.740)
[2018-08-14 17:29] VITALS: TEMP 98
[2018-08-14 17:30] VITALS: O2SAT 100
[2018-08-14 17:34] VITALS: BP 118/68
--- NOTE | 2018-08-15 06:56 | EKG ---
Test Date: 2018-08-14 Test Time: 11:49:31 Product Designer: MELVIN MEASUREMENT RESULTS: Intervals: Rate: 80 ND: 130 QRSD: 84 QT: 394 QTc: 454 Victoria: P: 41 ND: 130 QRS: 76 T: 24 INTERPRETIVE STATEMENTS: Normal sinus rhythm Normal ECG Compared to ECG 12/30/2016 14:41:48 No significant changes Electronically Signed On 08-15-18 06:54:49 CDT by Bulmaro Amador
== END 2018-08-14 16:33 | disposition home or self-care (01) ==
LOC: ER 10:46
DX: O21.9 Vomiting of pregnancy, unspecified (principal); Z3A.19 19 weeks gestation of pregnancy; Z88.6 Allergy status to analgesic agent; Z91.018 Allergy to other foods
CPT/HCPCS: 36415; 80048; 80307; 81003; 81025; 84439; 84443; 85025; 93005; 96361; 96374; 96375; 99284; J2405; J2550; J2765; J7030; J7509

== ENCOUNTER 2018-08-21 11:28 | Observation (INO) | payer MEDICAID ==
[2018-08-21] MEDS: D5LR 1,000 ML IV SCH ×3 (13:00→18:20)
[2018-08-21] MEDS ORDERED: D5LR 1,000 ML IV ONE (13:33)
[2018-08-21] MEDS: PROMETHAZINE 25 MG/ML VIAL IV PRN ×3 (13:45→23:00)
[2018-08-21] MEDS ORDERED: PENICILLIN G POT 5 MU/100 ML VIAL IV ONE (13:45)
[2018-08-21] MEDS: PENICILLIN G POT 5 MU/100 ML BAG IV ONE ×2 (14:10→21:30)
[2018-08-21 14:14] LABS: Urine Appearance CLEAR; Urine Bilirubin NEGATIVE (NEG); Urine Blood NEGATIVE (NEG); Urine Color YELLOW; Urine Glucose NEGATIVE (NEG); Urine Protein NEGATIVE (NEG); Urine Urobilinogen 0.2 mg/dL (0.2-1.0)
[2018-08-21 14:15] LABS: Urine Microscopic Reflex ORDER UMIC
[2018-08-21 14:19] LABS: Absolute Lymphocytes (CBC) 1.5 K/uL (0.7-4.9); Absolute Monocytes 0.4 K/uL (0.1-1.3); Absolute Neutrophil 7.8 K/uL (1.8-8.0); Basophils % 0.1 % (0-1.3); Eosinophils % 0.3 % (0-4.4); Hematocrit 35.6 % (36.0-45.0); Lymphocytes % 15.3 % (15.3-44.8); MCH 31.1 pg (27.0-35.0); MCV 88.7 fL (80-100); MPV 7.9 fL (7.6-11.3); RBC Red Blood Cell Count 4.02 M/uL (3.86-4.86)
[2018-08-21 14:23] LABS: Urine Bacteria <20 /HPF (<20); Urine RBC NONE SEEN /HPF (NONE SEEN)
[2018-08-21 14:24] LABS: Urine Culture Reflex Order REFLEXED
[2018-08-21 14:29] LABS: BUN Blood Urea Nitrogen 3 mg/dL (7-18); Bicarbonate 26 mmol/L (21-32); Glucose Level 154 mg/dL (74-106); Potassium 3.9 mmol/L (3.5-5.1); Sodium Level 138 mmol/L (136-145)
[2018-08-21 14:34] VITALS: BMI 30.3
[2018-08-21] MEDS ORDERED: INFLUENZA VACCINE (for 3y+) 0.5 ML DOSE IMVAC ONE (16:00)
[2018-08-21] MEDS: PENICILLIN 2.5 MU in NA CHLORIDE 0.9% 100 ML IV SCH (21:30)
--- NOTE | 2018-08-21 22:00 | PREOPHP ---
Date of Admission: 08/21/2018 History Of Present Illness: Ms. Fuentes is a 27-year-old female 3, para 2-0-0-2, approximately 20 weeks' gestation, brought in by ambulance for hyperemesis gravidarum and because she did not know if she had enough gas in her car to get to the hospital. She has been hospitalized multiple times a t our hospital, hospitalized at [facility] and also [facility] for hyperemesis gravidarum. She has been a frequent visitor to our emergency room which reports listing almost every 4 to 5 days apparently. She has been on Diclegis. She has been on Phenergan, Reglan, Zofran, and multiple othe r medications for her nausea and vomiting without complete control. She denies any vaginal bleeding or spotting. Infant has been active. Past Medical History: Includes 2 prior vaginal deliveries without complications other than first pre gnancy with hyperemesis. Medications: Listed as above. Family History: Noncontributory. Review of Systems: Weight is down approximately 4 pounds from where it was on her May admission. She denies recent cou gh, cold, fever, or chills. No recent nausea or vomiting. She denies any breast lumps. She denies any urine symptoms. She denies any vaginal bleeding or spotting. She denies any bowel changes. Physical Examination: General: Reveals female who is vomiting. Neck: Supple without adenopathy or thyromegaly. Lungs: Clear. Cardiac: Regular rate and rhythm without murmurs. Breasts: Not examined. Abdomen: Consistent with 20-week . Pelvic: Not performed. Extremities: No cyanosis, clubbing, or edema. Plan: We will admit for IV hydration. We will consider transfer to [facility] for care by high- risk specialist. We have been unable to care adequately for Ms. Fuentes or to control her sy mptoms adequately in the past on multiple hospital visits ,and I feel she requires a high-risk specia list. We will also involve [employer] Director. This is at least the second time she has used an ambula nce to come to the hospital without need. We have counseled her before regarding the fact that this is an inappropriate use of emergency services. JIL/APOLONIA Voice ID: [id number]
[2018-08-22] MEDS: D5LR 1,000 ML IV SCH ×2 (02:00→11:18)
[2018-08-22] MEDS: PENICILLIN 2.5 MU in NA CHLORIDE 0.9% 100 ML IV SCH ×2 (03:40→08:00)
[2018-08-22] MEDS: PROMETHAZINE 25 MG/ML VIAL IV PRN (07:43)
--- NOTE | 2018-08-22 08:04 | P.PN ---
Date of Service: 08/22/18 Wt up, feeling better, asking if can go home later. Plan: technical services rep consult, regarding finances, care for two other children, why come this hospital when not seeing our physicians etc. Possibly home later today.
[2018-08-22 12:07] VITALS: BP 111/59; TEMP 97.7
--- NOTE | 2018-08-23 07:28 | DS ---
Date of Discharge: 08/22/2018 Final Hospital Discharge Diagnoses: 1.20-week . 2.Hyperemesis gravidarum. 3.Dehydration. Complications: None. Procedures: IV hydration, treatment with antiemetic therapy. Hospital Course: The patient is a 27-year-old female, 3, para 2-0-0-2 at 20 weeks' gestation, followed by Dr. Gross in [place], who presents to our labor and delivery by ambulance comp laining of nausea, vomiting and dehydration. She was treated with IV hydration, IV Phenergan and gai veronica 4 pounds overnight, was tolerating p.o. fluids and a small amount of food, lab included admission hemoglobin and hematocrit of 12.5 and 35.6 with normal white blood cell count. Electrolytes; slight ly low BUN, slightly low creatinine, but otherwise in normal urine showing 2+ ketones, but 1.020 spec ific gravity. She was dismissed with a script for Zofran 4 mg ODT, #20, no refills. She had supplie s at home of Phenergan and had been prescribed recently some scopolamine patches, but she had not tri ed these yet. She was dismissed to follow up with her physician in [place]. JIL/APOLONIA Voice ID: [id number] Report ID: [id number]
== END 2018-08-22 13:20 | disposition home or self-care (01) ==
LOC: L&D 11:28 → 2ND-WC 12:00
PROVIDERS: ADMIT Specialist; ATTEND Specialist
DX: O21.1 Hyperemesis gravidarum with metabolic disturbance (principal); Z3A.20 20 weeks gestation of pregnancy
CPT/HCPCS: 36415; 80048; 81003; 81015; 85025; 87086; 87088; G0378; J2550

== ENCOUNTER 2018-09-07 07:46 | Emergency (ER) | payer MEDICAID ==
[2018-09-07] MEDS ORDERED: NA CHLORIDE 0.9% 1,000 ML ONE ×2 (08:08→10:09)
[2018-09-07] MEDS ORDERED: PROMETHAZINE 25 MG/ML VIAL ONE ×2 (08:08→08:37)
[2018-09-07 08:15] LABS: Absolute Lymphocytes (CBC) 1.4 K/uL (0.7-4.9); Absolute Monocytes 0.6 K/uL (0.1-1.3); Absolute Neutrophil 7.7 K/uL (1.8-8.0); Basophils % 0.7 % (0-1.3); Eosinophils % 0.5 % (0-4.4); Hematocrit 38.5 % (36.0-45.0); Lymphocytes % 14.7 % (15.3-44.8); MCH 31.4 pg (27.0-35.0); MCV 90.7 fL (80-100); MPV 8.2 fL (7.6-11.3); Monocytes % 5.6 % (3.3-12.3); RBC Red Blood Cell Count 4.24 M/uL (3.86-4.86)
[2018-09-07 08:27] LABS: BUN Blood Urea Nitrogen 8 mg/dL (7-18); Bicarbonate 23 mmol/L (21-32); Glucose Level 89 mg/dL (74-106); Sodium Level 141 mmol/L (136-145)
[2018-09-07] MEDS ORDERED: METOCLOPRAMIDE 10 MG/2mL INJ ONE (09:28)
[2018-09-07 10:54] LABS: Blood Morphology Comment NOT SEEN (NOT SEEN); Platelet Estimate ADEQ; Urine White Blood Cell Casts OK
--- NOTE | 2018-09-07 12:06 | EDPHYS ---
Physician Documentation [facility] Name: Suraj Fuentes Age: 27 yrs Sex: Female : 1990 Arrival Date: 09/07/2018 Time: 07:44 Bed 18 Private MD: ED Physician Messi Teixeira HPI: 09/07 08:37 This 27 yrs old Female presents to ER via EMS with complaints of kb Nausea/Vomiting, 22 weeks . 08:37 The patient presents to the emergency department with nausea, vomiting, diarrhea. kb Onset: The symptoms/episode began/occurred today, at 02:00. Possible causes: bad food exposure. The symptoms are aggravated by nothing. The symptoms are alleviated by nothing. Associated signs and symptoms: Pertinent positives: diarrhea, nausea, vomiting, Pertinent negatives: abdominal pain, anorexia, belching, constipation, dysuria, fever, flatulence, GI bleeding, hematuria, vaginal discharge. Severity of symptoms: At their worst the symptoms were moderate in the emergency department the symptoms are unchanged. The patient has not experienced similar symptoms in the past. The patient has not recently seen a physician. Pt reports she thinks she ate something bad last night because she started having vomiting and diarrhea at 0200 and it has been constant. Reports being 22 weeks . LAST IRONER: 07:42 22 weeks hj Historical: - Allergies: 07:52 Ibuprofen; iw 07:52 ORANGES; iw - Home Meds: 08:10 Diclegis Oral [Active]; Phenergan Supp Rectal [Active]; Vitamin Oral [Active]; hj Zofran Oral [Active]; - PMHx: 08:10 None; hj - PSHx: 08:10 Appendectomy; hj - Immunization history:: Adult Immunizations up to date. - Ebola Screening: : Patient negative for fever greater than or equal to 101.5 degrees Fahrenheit, and additional compatible Ebola Virus Disease symptoms Patient denies exposure to infectious person Patient denies travel to an Ebola-affected area in the 21 days before illness onset No symptoms or risks identified at this time. - Social history:: Smoking status: Patient/guardian denies using tobacco, Patient/guardian denies using alcohol. ROS: 08:36 Constitutional: Negative for fever, chills, and weight loss, Neck: Negative for injury, kb pain, and swelling, Cardiovascular: Negative for chest pain, palpitations, and edema, Respiratory: Negative for shortness of breath, cough, wheezing, and pleuritic chest pain, Back: Negative for injury and pain, : Negative for injury, bleeding, discharge, and swelling, MS/Extremity: Negative for injury and deformity, Skin: Negative for injury, rash, and discoloration, Neuro: Negative for headache, weakness, numbness, tingling, and seizure. 08:36 Abdomen/GI: Positive for nausea, vomiting, and diarrhea. Exam: 08:36 Constitutional: This is a well developed, well nourished patient who is awake, alert, kb and in no acute distress. Head/Face: Normocephalic, atraumatic. Chest/axilla: Normal chest wall appearance and motion. Nontender with no deformity. No lesions are appreciated. Cardiovascular: Regular rate and rhythm with a normal S1 and S2. No gallops, murmurs, or rubs. Normal PMI, no JVD. No pulse deficits. Respiratory: Lungs have equal breath sounds bilaterally, clear to auscultation and percussion. No rales, rhonchi or wheezes noted. No increased work of breathing, no retractions or nasal flaring. Abdomen/GI: Soft, non-tender, with normal bowel sounds. No distension or tympany. No guarding or rebound. No evidence of tenderness throughout. Skin: Warm, dry with normal turgor. Normal color with no rashes, no lesions, and no evidence of cellulitis. MS/ Extremity: Pulses equal, no cyanosis. Neurovascular intact. Full, normal range of motion. Neuro: Awake and alert, GCS 15, oriented to person, place, time, and situation. Cranial nerves II-XII grossly intact. Motor strength 5/5 in all extremities. Sensory grossly intact. Cerebellar exam normal. Normal gait. Vital Signs: 07:51 BP 145 / 84; Pulse 109; Resp 18; Temp 97.8(TE); Pulse Ox 96% ; mh5 09:04 BP 132 / 89; Pulse 95; Resp 18; Pulse Ox 100% on R/A; hj 10:05 BP 157 / 99; Pulse 75; Resp 18; Pulse Ox 100% on R/A; aj 11:04 BP 139 / 89; Pulse 91; Resp 16; Pulse Ox 97% on R/A; aj 12:16 BP 137 / 85; Pulse 83; Resp 17; Pulse Ox 99% on R/A; aj MDM: 07:49 Patient medically screened. kb 08:36 Data reviewed: vital signs, nurses notes. Data interpreted: Pulse oximetry: on room air kb is 96 %. Interpretation: normal. 09:50 ED course: Resting on stretcher. Reports reglan did help the vomiting. kb 12:04 Counseling: I had a detailed discussion with the patient and/or guardian regarding: the kb historical points, exam findings, and any diagnostic results supporting the discharge/admit diagnosis, lab results, the need for outpatient follow up, an OB/Gyne specialist, to return to the emergency department if symptoms worsen or persist or if there are any questions or concerns that arise at home. ED course: Pt tolerating PO intake. 09/07 07:49 Order name: CBC with Diff; Complete Time: 11:00 kb 09/07 07:49 Order name: Basic Metabolic Panel; Complete Time: 08:32 kb 09/07 10:55 Order name: CBC Smear Scan; Complete Time: 11:00 EDMS 09/07 11:23 Order name: Urine Dipstick--Ancillary (enter results); Complete Time: 12:16 bd 09/07 11:23 Order name: Urine --Ancillary (enter results); Complete Time: 12:16 bd 09/07 07:49 Order name: IV Start; Complete Time: 07:59 kb 09/07 07:49 Order name: FHT's; Complete Time: 08:34 kb 09/07 11:01 Order name: PO challenge; Complete Time: 11:19 kb Administered Medications: 07:42 Drug: NS 0.9% 1000 ml Route: IV; Rate: 1000 ml; Site: right antecubital; hj 10:00 Follow up: Response: No adverse reaction; IV Status: Completed infusion; IV Intake: aj 1000ml 07:42 Drug: Phenergan 12.5 mg Route: IVP; Site: right antecubital; hj 08:20 Follow up: Response: Nausea unchanged hj 08:27 Drug: Phenergan 12.5 mg Route: IVP; Site: right antecubital; hj 09:09 Follow up: Response: Vomiting decreased hj 09:27 Drug: Reglan 10 mg Route: IVP; Site: right antecubital; hj 09:27 Follow up: Response: No adverse reaction; Nausea is decreased; Vomiting decreased hj 10:05 Drug: NS 0.9% 1000 ml Route: IV; Rate: 1000 ml; Site: right antecubital; aj 12:18 Follow up: Response: Nausea is decreased; IV Status: Completed infusion; IV Intake: aj 1000ml Disposition: 09/08 10:42 Co-signature as Attending Physician, Messi Teixeira MD. ma2 Disposition: 09/07/18 12:05 Discharged to Home. Impression: Vomiting of , unspecified. - Condition is Stable. - Discharge Instructions: Nausea and Vomiting, Adult, [id number]. - Medication Reconciliation Form, Thank You Letter, Antibiotic Education, Prescription Opioid Use form. - Follow up: Emergency Department; When: As needed; Reason: Worsening of condition. Follow up: Private Physician; When: 2 - 3 days; Reason: Recheck today's complaints, Continuance of care, Re-evaluation by your physician. Signatures: Dispatcher [employer] EDChristine Johns, MANGLE TENDER CLOTH-C MANGLE TENDER CLOTH-Sharlene Covarrubias RN RN aj Williams, Irene, RN RN iw Joaquin, Henry RN Messi Barnett MD MD ma2 Corrections: (The following items were deleted from the chart) 09/07 12:32 12:05 09/07/2018 12:05 Discharged to Home. Impression: Vomiting of , aj unspecified. Condition is Stable. Forms are Medication Reconciliation Form, Thank You Letter, Antibiotic Education, Prescription Opioid Use. Follow up: Emergency Department; When: As needed; Reason: Worsening of condition. Follow up: Private Physician; When: 2 - 3 days; Reason: Recheck today's complaints, Continuance of care, Re-evaluation by your physician. kb
--- NOTE | 2018-09-07 12:06 | ER ---
Nurse's Notes [facility] Name: Suraj Fuentes Age: 27 yrs Sex: Female : 1990 Arrival Date: 09/07/2018 Time: 07:44 Bed 18 Private MD: Diagnosis: Vomiting of , unspecified Presentation: 09/07 07:48 Presenting complaint: Patient states: vomiting and diarrhea since 0200 t night, thinks iw she ate something bad, also having low back pain and low abd pain, pt is 22 weeks , was cleared by L\T\D. Transition of care: patient was not received from another setting of care. Onset of symptoms was September 07, 2018. Risk Assessment: Do you want to hurt yourself or someone else? Patient reports no desire to harm self or others. Initial Sepsis Screen: Does the patient meet any 2 criteria? No. Patient's initial sepsis screen is negative. Does the patient have a suspected source of infection? No. Patient's initial sepsis screen is negative. Care prior to arrival: None. 07:48 Method Of Arrival: EMS: [facility] iw 07:48 Acuity: SHAW 3 iw Triage Assessment: 07:42 General: Appears in no apparent distress. uncomfortable. General: Behavior is hj cooperative, appropriate for age, anxious, fussy. Pain: Denies pain. GI: Reports nausea, vomiting. 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 - Ebola Screening: : Patient negative for fever greater than or equal to 101.5 degrees Fahrenheit, and additional compatible Ebola Virus Disease symptoms Patient denies exposure to infectious person Patient denies travel to an Ebola-affected area in the 21 days before illness onset No symptoms or risks identified at this time. - Social history:: Smoking status: Patient/guardian denies using tobacco, Patient/guardian denies using alcohol. Screenin:42 Abuse screen: Denies threats or abuse. Denies injuries from another. Nutritional hj screening: No deficits noted. Tuberculosis screening: No symptoms or risk factors identified. Fall Risk None identified. Assessment: 07:42 GI: Abdomen is non-distended, 22 weeks . hj 08:00 Reassessment: Patient and/or family updated on plan of care and expected duration. Pain hj level reassessed. Patient is alert, oriented x 3, equal unlabored respirations, skin warm/dry/pink. actively vomiting;. 08:30 Reassessment: still vomiting, provider informed;. hj 09:24 Reassessment: Patient and/or family updated on plan of care and expected duration. Pain hj level reassessed. Patient is alert, oriented x 3, equal unlabored respirations, skin warm/dry/pink. provider with verbal order of reglan, verified with pharmacy;. 10:05 General: Appears in no apparent distress. Behavior is calm, cooperative, appropriate aj for age. Pain: Denies pain. Neuro: Level of Consciousness is awake, alert, obeys commands, Oriented to person, place, time, situation, Appropriate for age. Respiratory: Airway is patent Respiratory effort is even, unlabored, Respiratory pattern is regular, symmetrical. GI: Reports nausea. Derm: Skin is intact, is healthy with good turgor, Skin is pink, warm \T\ dry. normal. 11:04 Reassessment: Patient appears in no apparent distress at this time. No changes from aj previously documented assessment. Patient is resting in bed with eyes closed, in NAD at this time. 11:07 Reassessment: Patient provided with saltine crackers and ice chips. Patient has visitor aj at bedside. States that she has to use the restroom, asked to provide urine sample. 12:16 Reassessment: Patient tolerated ice chips and saltine crackers, reports that she is aj feeling better. Vital Signs: 07:51 BP 145 / 84; Pulse 109; Resp 18; Temp 97.8(TE); Pulse Ox 96% ; mh5 09:04 BP 132 / 89; Pulse 95; Resp 18; Pulse Ox 100% on R/A; hj 10:05 BP 157 / 99; Pulse 75; Resp 18; Pulse Ox 100% on R/A; aj 11:04 BP 139 / 89; Pulse 91; Resp 16; Pulse Ox 97% on R/A; aj 12:16 BP 137 / 85; Pulse 83; Resp 17; Pulse Ox 99% on R/A; aj Vitals: 08:33 Heart Tones 156. hj 08:33 Heart Tones: 156. 5 ED Course: 07:42 Arm band placed on right wrist. hj 07:44 Patient arrived in ED. hj 07:45 Initial lab(s) drawn, by me, sent to lab. Inserted saline lock: 22 gauge in right hj antecubital area, using aseptic technique. Blood collected. 07:46 Jared Caldera, ALFONZO is Primary Nurse. hj 07:49 Christine Solares FNP-C is PHCP. kb 07:49 Messi Teixeira MD is Attending Physician. kb 07:51 Triage completed. iw 07:52 Patient has correct armband on for positive identification. Bed in low position. Call [facility] light in reach. Side rails up X 1. Warm blanket given. Pulse ox on. NIBP on. 12:16 No provider procedures requiring assistance completed. IV discontinued, intact, aj bleeding controlled, No redness/swelling at site. Pressure dressing applied. Administered Medications: 07:42 Drug: NS 0.9% 1000 ml Route: IV; Rate: 1000 ml; Site: right antecubital; hj 10:00 Follow up: Response: No adverse reaction; IV Status: Completed infusion; IV Intake: aj 1000ml 07:42 Drug: Phenergan 12.5 mg Route: IVP; Site: right antecubital; hj 08:20 Follow up: Response: Nausea unchanged hj 08:27 Drug: Phenergan 12.5 mg Route: IVP; Site: right antecubital; hj 09:09 Follow up: Response: Vomiting decreased hj 09:27 Drug: Reglan 10 mg Route: IVP; Site: right antecubital; hj 09:27 Follow up: Response: No adverse reaction; Nausea is decreased; Vomiting decreased hj 10:05 Drug: NS 0.9% 1000 ml Route: IV; Rate: 1000 ml; Site: right antecubital; aj 12:18 Follow up: Response: Nausea is decreased; IV Status: Completed infusion; IV Intake: aj 1000ml Intake: 10:00 IV: 1000ml; Total: 1000ml. aj 12:18 IV: 1000ml; Total: 2000ml. aj Outcome: 12:05 Discharge ordered by . kb 12:16 Discharged to home ambulatory, with family. raj 12:16 Condition: improved 12:16 Discharge instructions given to patient, family, Instructed on discharge instructions, follow up and referral plans. Demonstrated understanding of instructions, follow-up care. 12:32 Patient left the ED. raj Signatures: Christine Solares, DIRECTOR OF COUNTERINTELLIGENCE-C ELIZ-Sharlene Covarrubias RN RN aj Williams, Irene, RN RN iw Joaquin, Henry, RN RN hj Martinez, Maria [facility]
[2018-09-07 12:10] LABS: Urine Blood NEGATIVE (NEG); Urine Glucose NEGATIVE (NEG); Urine Protein NEGATIVE (NEG); Urine Specific Gravity >1.030 (1.005-1.030)
[2018-09-07 12:43] VITALS: TEMP 97.8
[2018-09-07 12:48] VITALS: BP 137/85; O2SAT 99
== END 2018-09-07 12:32 | disposition home or self-care (01) ==
LOC: ER 07:46
DX: O21.2 Late vomiting of pregnancy (principal); Z3A.22 22 weeks gestation of pregnancy; Z88.6 Allergy status to analgesic agent; Z91.018 Allergy to other foods
CPT/HCPCS: 36415; 80048; 81003; 81025; 85025; 96361; 96374; 96375; 99284; J2550; J2765; J7030

== ENCOUNTER 2018-09-14 19:33 | Emergency (ER) | payer MEDICAID ==
[2018-09-14] MEDS ORDERED: NA CHLORIDE 0.9% 1,000 ML ONE (20:18)
[2018-09-14] MEDS ORDERED: ONDANSETRON 4 MG/2 ML VIAL ONE ×2 (20:18→21:29)
[2018-09-14 20:24] LABS: Absolute Lymphocytes (CBC) 1.7 K/uL (0.7-4.9); Absolute Monocytes 0.6 K/uL (0.1-1.3); Absolute Neutrophil 6.9 K/uL (1.8-8.0); Basophils % 2.7 % (0-1.3); Eosinophils % 0.9 % (0-4.4); Hematocrit 40.4 % (36.0-45.0); Lymphocytes % 17.5 % (15.3-44.8); MCH 31.1 pg (27.0-35.0); MCV 90.1 fL (80-100); MPV 8.4 fL (7.6-11.3); Monocytes % 5.8 % (3.3-12.3); RBC Red Blood Cell Count 4.49 M/uL (3.86-4.86)
[2018-09-14 20:40] LABS: ALT/SGPT 19 U/L (12-78); AST/SGOT 18 U/L (15-37); Albumin 3.1 g/dL (3.4-5.0); Alkaline Phosphatase 49 U/L (45-117); BUN Blood Urea Nitrogen 7 mg/dL (7-18); Bicarbonate 21 mmol/L (21-32); Bilirubin Direct 0.2 mg/dL (0-0.2); Bilirubin Total 0.6 mg/dL (0.2-1.0); Glucose Level 82 mg/dL (74-106); Lipase 109 U/L (73-393); Potassium 3.6 mmol/L (3.5-5.1); Protein, Total 7.2 g/dL (6.4-8.2); Sodium Level 139 mmol/L (136-145)
--- NOTE | 2018-09-14 21:34 | ER ---
Nurse's Notes [facility] Name: Suraj Fuentes Age: 27 yrs Sex: Female : 1990 Arrival Date: 09/14/2018 Time: 19:37 Bed 30 Private MD: Diagnosis: Vomiting of , unspecified Presentation: 09/14 19:40 Presenting complaint: Patient states: "I got worried about my dad last night, and aj1 started stress eating. I over did it, I'm 23 weeks . Then I started vomiting out of the blue at about 10:00 this morning." Denies pain, diarrhea, vaginal bleeding. Reports N/V. Reports she usually take a Zofran, Phenergan, and Reglan, but she ran out yesterday. Transition of care: patient was not received from another setting of care. Onset of symptoms was September 14, 2018 at 10:00. Risk Assessment: Do you want to hurt yourself or someone else? Patient reports no desire to harm self or others. Initial Sepsis Screen: Does the patient meet any 2 criteria? HR > 90 bpm. No. Patient's initial sepsis screen is negative. Does the patient have a suspected source of infection? No. Patient's initial sepsis screen is negative. Care prior to arrival: None. 19:40 Method Of Arrival: Wheelchair aj1 19:40 Acuity: SHAW 3 aj1 Triage Assessment: 19:45 General: Appears uncomfortable, Behavior is cooperative, agitated, restless. Pain: aj1 Denies pain. Neuro: Level of Consciousness is awake, alert, obeys commands. Cardiovascular: Patient's skin is warm and dry. Respiratory: Airway is patent Respiratory effort is even, unlabored, Respiratory pattern is regular, symmetrical. GI: Reports vomiting. 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 - Social history:: Smoking status: Patient/guardian denies using tobacco. - Ebola Screening: : Patient denies travel to an Ebola-affected area in the 21 days before illness onset. Screenin:24 Abuse screen: Denies threats or abuse. Denies injuries from another. Nutritional rv screening: No deficits noted. Tuberculosis screening: No symptoms or risk factors identified. Fall Risk None identified. Assessment: 20:00 General: Appears in no apparent distress. uncomfortable, Behavior is calm, cooperative. rv 20:00 Pain: Denies pain. Neuro: Level of Consciousness is awake, alert, obeys commands, rv Oriented to person, place, time, situation. Cardiovascular: Capillary refill < 3 seconds. Respiratory: Airway is patent. GI: Reports vomiting. GI: Pt is actively vomiting clear fluid. : No signs and/or symptoms were reported regarding the genitourinary system. EENT: No signs and/or symptoms were reported regarding the EENT system. Derm: Skin is intact. 21:15 Reassessment: Patient appears in no apparent distress at this time. Patient and/or rv family updated on plan of care and expected duration. Pain level reassessed. Patient is alert, oriented x 3, equal unlabored respirations, skin warm/dry/pink. Vital Signs: 19:45 BP 119 / 80; Pulse 114; Resp 20; Temp 97.2; Pulse Ox 97% on R/A; Weight 76.66 kg (R); aj1 Height 5 ft. 2 in. (157.48 cm) (R); Pain 0/10; 21:15 BP 128 / 79; Pulse 80; Pulse Ox 98% on R/A; rv 22:28 BP 114 / 64; Pulse 67; Pulse Ox 100% on R/A; rv 19:45 Body Mass Index 30.91 (76.66 kg, 157.48 cm) aj1 Vitals: 20:24 Heart Tones 140s LLQ. rv ED Course: 19:37 Patient arrived in ED. es 19:44 Triage completed. aj1 19:47 Arm band placed on Patient placed in an exam room. aj1 19:49 Neel Valenzuela PA is PHCP. jr8 19:49 Zane Herring MD is Attending Physician. jr8 20:27 Patient has correct armband on for positive identification. Bed in low position. Call rv light in reach. Side rails up X 1. Adult w/ patient. Pulse ox on. NIBP on. 20:28 Initial lab(s) drawn, by me, sent to lab. Inserted saline lock: 20 gauge in right rv antecubital area, using aseptic technique. Blood collected. 22:28 No provider procedures requiring assistance completed. IV discontinued, bleeding rv controlled, No redness/swelling at site. Pressure dressing applied. Administered Medications: 20:15 Drug: NS 0.9% 1000 ml Route: IV; Rate: 1000 ml; Site: right antecubital; rv 20:15 Drug: Zofran 4 mg Route: IVP; Site: right antecubital; rv 21:15 Follow up: Response: Nausea is decreased rv 21:24 Drug: Zofran 4 mg Route: IVP; Site: right antecubital; rv 21:57 Follow up: Response: No adverse reaction rv Outcome: 21:33 Discharge ordered by MD. reyes 22:28 Discharged to home ambulatory. rv 22:28 Condition: good 22:28 Discharge instructions given to patient, family, Instructed on discharge instructions, follow up and referral plans. medication usage, Demonstrated understanding of instructions, follow-up care, medications, Prescriptions given X 1. 22:29 Patient left the ED. rv Signatures: Tracee Mcneil RN RN aj1 Barbie Mckeon Josh, PA PA jr8 Ye Mao, RN RN rv Corrections: (The following items were deleted from the chart) 19:46 19:40 Presenting complaint: Patient states: "I got worried about my dad last night, and aj1 started stress eating. I over did it, I'm 23 weeks . Then I started vomiting out of the blue at about 10:00 this morning." Denies pain, diarrhea, vaginal bleeding. Reports N/V aj1
--- NOTE | 2018-09-14 21:34 | EDPHYS ---
Physician Documentation [facility] Name: Suraj Fuentes Age: 27 yrs Sex: Female : 1990 Arrival Date: 09/14/2018 Time: 19:37 Bed 30 Private MD: ED Physician Zane Herring HPI: 09/14 20:22 This 27 yrs old Female presents to ER via Wheelchair with complaints of jr8 Vomiting. 20:22 The patient presents to the emergency department with nausea, vomiting. Onset: The jr8 symptoms/episode began/occurred acutely, yesterday. Possible causes: unknown. The symptoms are aggravated by nothing. The symptoms are alleviated by nothing. Associated signs and symptoms: The patient has no apparent associated signs or symptoms. Severity of symptoms: At their worst the symptoms were moderate in the emergency department the symptoms are unchanged. It is unknown whether or not the patient has had similar symptoms in the past. The patient has not recently seen a physician. Patient 23 weeks present. Has had chronic related nausea and vomiting. Unknown the vomiting is tied to that or anything else. Has not been able to keep anything down . 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 - Social history:: Smoking status: Patient/guardian denies using tobacco. - Ebola Screening: : Patient denies travel to an Ebola-affected area in the 21 days before illness onset. ROS: 20:22 Eyes: Negative for injury, pain, redness, and discharge, ENT: Negative for injury, jr8 pain, and discharge, Neck: Negative for injury, pain, and swelling, Cardiovascular: Negative for chest pain, palpitations, and edema, Respiratory: Negative for shortness of breath, cough, wheezing, and pleuritic chest pain, Back: Negative for injury and pain, MS/Extremity: Negative for injury and deformity, Skin: Negative for injury, rash, and discoloration, Neuro: Negative for headache, weakness, numbness, tingling, and seizure. 20:22 Abdomen/GI: Positive for nausea and vomiting, Negative for abdominal pain, diarrhea, constipation, abdominal cramps, abdominal distension, anorexia, dysphagia, hematemesis, black/tarry stool, rectal pain, rectal bleeding, bowel incontinence, flatulence. Exam: 20:22 Eyes: Pupils equal round and reactive to light, extra-ocular motions intact. Lids and jr8 lashes normal. Conjunctiva and sclera are non-icteric and not injected. Cornea within normal limits. Periorbital areas with no swelling, redness, or edema. ENT: Nares patent. No nasal discharge, no septal abnormalities noted. Tympanic membranes are normal and external auditory canals are clear. Oropharynx with no redness, swelling, or masses, exudates, or evidence of obstruction, uvula midline. Mucous membranes moist. Neck: Trachea midline, no thyromegaly or masses palpated, and no cervical lymphadenopathy. Supple, full range of motion without nuchal rigidity, or vertebral point tenderness. No Meningismus. Cardiovascular: Regular rate and rhythm with a normal S1 and S2. No gallops, murmurs, or rubs. Normal PMI, no JVD. No pulse deficits. Respiratory: Lungs have equal breath sounds bilaterally, clear to auscultation and percussion. No rales, rhonchi or wheezes noted. No increased work of breathing, no retractions or nasal flaring. Abdomen/GI: Soft, non-tender, with normal bowel sounds. No distension or tympany. Gravid abdomen present. No guarding or rebound. No evidence of tenderness throughout. Back: No spinal tenderness. No costovertebral tenderness. Full range of motion. Skin: Warm, dry with normal turgor. Normal color with no rashes, no lesions, and no evidence of cellulitis. MS/ Extremity: Pulses equal, no cyanosis. Neurovascular intact. Full, normal range of motion. Neuro: Awake and alert, GCS 15, oriented to person, place, time, and situation. Cranial nerves II-XII grossly intact. Motor strength 5/5 in all extremities. Sensory grossly intact. Cerebellar exam normal. Normal gait. Vital Signs: 19:45 BP 119 / 80; Pulse 114; Resp 20; Temp 97.2; Pulse Ox 97% on R/A; Weight 76.66 kg (R); aj1 Height 5 ft. 2 in. (157.48 cm) (R); Pain 0/10; 21:15 BP 128 / 79; Pulse 80; Pulse Ox 98% on R/A; rv 22:28 BP 114 / 64; Pulse 67; Pulse Ox 100% on R/A; rv 19:45 Body Mass Index 30.91 (76.66 kg, 157.48 cm) aj1 MDM: 19:49 Patient medically screened. jr8 21:32 Data reviewed: vital signs, nurses notes, lab test result(s), and as a result, I will jr8 discharge patient. Data interpreted: Pulse oximetry: on room air is 98 %. Interpretation: normal. Counseling: I had a detailed discussion with the patient and/or guardian regarding: the historical points, exam findings, and any diagnostic results supporting the discharge/admit diagnosis, lab results, the need for outpatient follow up, an OB/Gyne specialist, to return to the emergency department if symptoms worsen or persist or if there are any questions or concerns that arise at home. Response to treatment: the patient's symptoms have markedly improved after treatment, patient is well hydrated. ED course: Patient feeling much better. No vomiting while in ED. FHT 140s. Will f/u with special services agent after the weekend. . 09/14 20:06 Order name: Basic Metabolic Panel; Complete Time: 20:45 09/14 20:06 Order name: CBC with Diff; Complete Time: 20:45 09/14 20:06 Order name: Creatinine for Radiology; Complete Time: 20:45 8 09/14 20:06 Order name: Hepatic Function; Complete Time: 20:45 8 09/14 20:06 Order name: Lipase; Complete Time: 20:45 8 09/14 22:00 Order name: Urine Dipstick--Ancillary (enter results) 2 09/14 20:06 Order name: IV Saline Lock; Complete Time: 20:23 8 09/14 20:06 Order name: Labs collected and sent; Complete Time: 20:23 8 09/14 20:06 Order name: Urine Dipstick-Ancillary (obtain specimen); Complete Time: 21:57 jr8 Administered Medications: 20:15 Drug: NS 0.9% 1000 ml Route: IV; Rate: 1000 ml; Site: right antecubital; rv 20:15 Drug: Zofran 4 mg Route: IVP; Site: right antecubital; rv 21:15 Follow up: Response: Nausea is decreased rv 21:24 Drug: Zofran 4 mg Route: IVP; Site: right antecubital; rv 21:57 Follow up: Response: No adverse reaction rv Disposition: 09/15 04:31 Co-signature as Attending Physician, Zane Herring MD. rn Disposition: 09/14/18 21:33 Discharged to Home. Impression: Vomiting of , unspecified. - Condition is Stable. - Discharge Instructions: Hyperemesis Gravidarum. - Prescriptions for Zofran 8 mg Oral Tablet - take 1 tablet by ORAL route every 12 hours As needed; 20 tablet. - Medication Reconciliation Form, Thank You Letter, Antibiotic Education, Prescription Opioid Use form. - Follow up: Private Physician; When: 1 - 2 days; Reason: Recheck today's complaints, Continuance of care, Re-evaluation by your physician. - Problem is new. - Symptoms have improved. Signatures: Dispatcher [employer] EDMS Tracee Mcneil RN RN aj1 Zane Herring MD MD rn Roszak, Josh, PA PA jr8 Ye Mao RN RN rv Corrections: (The following items were deleted from the chart) 09/14 22:29 21:33 09/14/2018 21:33 Discharged to Home. Impression: Vomiting of , rv unspecified. Condition is Stable. Forms are Medication Reconciliation Form, Thank You Letter, Antibiotic Education, Prescription Opioid Use. Follow up: Private Physician; When: 1 - 2 days; Reason: Recheck today's complaints, Continuance of care, Re-evaluation by your physician. Problem is new. Symptoms have improved. jr8
[2018-09-14 22:34] VITALS: TEMP 97.2
[2018-09-14 22:36] VITALS: BP 114/64; O2SAT 100
[2018-09-14 23:05] LABS: Urine Blood NEGATIVE (NEG); Urine Glucose NEGATIVE (NEG); Urine Protein 1+ (NEG); Urine Specific Gravity >1.030 (1.005-1.030)
== END 2018-09-14 22:29 | disposition home or self-care (01) ==
LOC: ER 19:33
DX: O26.892 Other specified pregnancy related conditions, second trimester (principal); Z88.6 Allergy status to analgesic agent; Z91.018 Allergy to other foods
CPT/HCPCS: 36415; 80048; 80076; 81003; 83690; 85025; 96374; 99284; J2405; J7030

== ENCOUNTER 2018-09-18 16:48 | Emergency (ER) | payer MEDICAID ==
[2018-09-18] MEDS ORDERED: NA CHLORIDE 0.9% 50 ML IV ONE (17:33)
[2018-09-18] MEDS ORDERED: NA CHLORIDE 0.9% 1,000 ML ONE (17:33)
[2018-09-18] MEDS ORDERED: METOCLOPRAMIDE 10 MG/2mL INJ ONE (17:33)
[2018-09-18 17:54] LABS: Absolute Lymphocytes (CBC) 1.4 K/uL (0.7-4.9); Absolute Monocytes 0.5 K/uL (0.1-1.3); Absolute Neutrophil 6.7 K/uL (1.8-8.0); Basophils % 0.2 % (0-1.3); Eosinophils % 0.6 % (0-4.4); Hematocrit 39.2 % (36.0-45.0); Lymphocytes % 16.6 % (15.3-44.8); MCH 31.1 pg (27.0-35.0); MCV 90.8 fL (80-100); MPV 8.3 fL (7.6-11.3); Monocytes % 5.8 % (3.3-12.3); RBC Red Blood Cell Count 4.32 M/uL (3.86-4.86)
[2018-09-18 18:00] LABS: ALT/SGPT 17 U/L (12-78); AST/SGOT 13 U/L (15-37); Alkaline Phosphatase 50 U/L (45-117); BUN Blood Urea Nitrogen 4 mg/dL (7-18); Bicarbonate 25 mmol/L (21-32); Bilirubin Direct 0.1 mg/dL (0-0.2); Bilirubin Total 0.4 mg/dL (0.2-1.0); Glucose Level 71 mg/dL (74-106); Lipase 83 U/L (73-393); Potassium 3.9 mmol/L (3.5-5.1); Protein, Total 7.2 g/dL (6.4-8.2); Sodium Level 137 mmol/L (136-145)
[2018-09-18] MEDS ORDERED: ACETAMINOPHEN 500 MG TAB ONE (18:21)
--- NOTE | 2018-09-18 19:27 | ER ---
Nurse's Notes [facility] Name: Suraj Fuentes Age: 27 yrs Sex: Female : 1990 Arrival Date: 09/18/2018 Time: 16:48 Bed 14 Private MD: Diagnosis: Vomiting of , unspecified Presentation: 09/18 17:09 Presenting complaint: Patient states: N/v x 2 days. Not tolerating liquids. Pt is 23 hb weeks , cleared by L\T\ D. Transition of care: patient was not received from another setting of care. Onset of symptoms was September 17, 2018. Risk Assessment: Do you want to hurt yourself or someone else? Patient reports no desire to harm self or others. Initial Sepsis Screen: Does the patient meet any 2 criteria?. Care prior to arrival: None. 17:09 Acuity: SHAW 3 hb 17:09 Method Of Arrival: Ambulatory hb 18:27 Initial Sepsis Screen: Does the patient have a suspected source of infection?. 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 - Social history:: Smoking status: Patient/guardian denies using tobacco. - Ebola Screening: : No symptoms or risks identified at this time. Screenin:13 Abuse screen: Denies threats or abuse. Denies injuries from another. Nutritional hb screening: No deficits noted. Tuberculosis screening: No symptoms or risk factors identified. Fall Risk Total Chaidez Fall Scale indicates Low Risk Score (25-44 pts). Fall prevention measures have been instituted. Side Rails Up X 2 Frequent Obs/Assesments occuring Family Present and informed to notify staff if they need to leave bedside As available Patient and Family Educated on Fall Prevention Program and strategies. Assessment: 17:15 General: Appears in no apparent distress. comfortable, Behavior is calm, cooperative, ph appropriate for age. Pain: Complains of pain in left arm. Neuro: Level of Consciousness is awake, alert, obeys commands, Oriented to person, place, time, situation, Moves all extremities. Full function Speech is normal, Facial symmetry appears normal, Reports numbness in left arm and left leg paresthesias in left arm and left leg Denies blurred vision dizziness, difficulty swallowing. Cardiovascular: Capillary refill < 3 seconds in bilateral fingers Patient's skin is warm and dry. Respiratory: Airway is patent Respiratory effort is even, unlabored. GI: Abdomen is round Reports nausea, vomiting, since this morning. Derm: Skin is intact, is healthy with good turgor, Skin is pink, warm \T\ dry. Musculoskeletal: Circulation, motion, and sensation intact. Range of motion: intact in all extremities. 18:45 Reassessment: Patient appears in no apparent distress at this time. Patient and/or ph family updated on plan of care and expected duration. Pain level reassessed. Patient is alert, oriented x 3, equal unlabored respirations, skin warm/dry/pink. Pt eating potato chips, tolerating well, VSS Patient states feeling better. Patient states symptoms have improved. 19:20 General: Appears in no apparent distress. comfortable, Behavior is calm, cooperative, jb4 appropriate for age. Cardiovascular: Patient's skin is warm and dry. Respiratory: Airway is patent Respiratory effort is even, unlabored. GI: Patient currently denies nausea, vomiting. Vital Signs: 17:07 BP 134 / 88; Pulse 87; Resp 16; Temp 98.2; Pulse Ox 98% on R/A; Pain 0/10; hb 18:26 BP 116 / 65; Pulse 71; Resp 18; Pulse Ox 98% on R/A; ph 19:30 BP 101 / 59; Pulse 88; Resp 18; Pulse Ox 100% on R/A; jb4 NIH Stroke Scale Scores: 17:32 NIHSS Score: 0 jr8 ED Course: 16:48 Patient arrived in ED. as 17:02 eBthanie Cruz, ALFONZO is Primary Nurse. ph 17:03 Neel Valenzuela PA is PHCP. jr8 17:03 Zane Herring MD is Attending Physician. jr8 17:09 Arm band placed on right wrist. hb 17:12 Triage completed. hb 17:25 Inserted saline lock: 20 gauge in right antecubital area, using aseptic technique. rv Blood collected. 18:27 Patient has correct armband on for positive identification. Placed in gown. Bed in low ph position. Side rails up X 1. Pulse ox on. NIBP on. Warm blanket given. 18:28 No provider procedures requiring assistance completed. ph 19:30 IV discontinued, intact, bleeding controlled. jb4 Administered Medications: 07:30 Drug: Reglan 10 mg Route: IVP; Site: right antecubital; rv 19:04 Follow up: Response: No adverse reaction ph 17:30 Drug: NS 0.9% 1000 ml Route: IV; Rate: 1000 ml; Site: right antecubital; rv 19:04 Follow up: Response: No adverse reaction; IV Status: Completed infusion ph 18:19 Drug: Tylenol 1000 mg Route: PO; ph 19:06 Follow up: Response: No adverse reaction ph Outcome: 19:26 Discharge ordered by . jr8 19:30 Discharged to home ambulatory. jb4 19:30 Condition: stable 19:30 Discharge instructions given to patient, Instructed on discharge instructions, follow up and referral plans. medication usage, Demonstrated understanding of instructions, follow-up care, medications, Prescriptions given X 1. 19:40 Patient left the ED. jb4 NIH Stroke Scale - NIH Stroke Score Date: 09/18/2018 Time: 17:32 Total Score = 0 1a. Level of Consciousness (LOC) - 0(Alert) 1b. Level of Consciousness (LOC) (Year \T\ Age) - 0(Both) 1c. LOC Commands (Open \T\ Closes Eyes/Architectural Wood Model Maker) - 0(Both) 2. Best Gaze (Lateral Gaze Paresis) - 0(Normal) 3. Visual Field Loss - 0(No visual loss) 4. Facial Palsy - 0(Normal) 5a. Left Arm: Motor (10-second hold) - 0(No drift) 5b. Right Arm: Motor (10-second hold) - 0(No drift) 6a. Left Leg: Motor (5-second hold - always test supine) - 0(No drift) 6b. Right Leg: Motor (5-second hold - always test supine) - 0(No drift) 7. Limb Ataxia (finger/nose \T\ heel/ortiz - test with eyes open) - 0(Absent) 8. Sensory Loss (pinprick arms/legs/face) - 0(Normal) 9. Best Language: Aphasia (description/naming/reading) - 0(No aphasia) 10. Dysarthria (speech clarity - read or repeat words) - 0(Normal) 11. Extinction and Inattention (visual/tactile/auditory/spatial/personal) - 0(No abnormality) Initials: 8 Signatures: Jinny Rendon Josh, PA PA jr8 Bethanie Cruz RN RN Kimberly Landeros RN RN Floyd Cardenas RN RN jb4 Ye Mao RN RN rv
--- NOTE | 2018-09-18 19:28 | EDPHYS ---
Physician Documentation [facility] Name: Suraj Fuentes Age: 27 yrs Sex: Female : 1990 Arrival Date: 09/18/2018 Time: 16:48 Bed 14 Private MD: ED Physician Zane Herring HPI: 09/18 17:32 This 27 yrs old Female presents to ER via Ambulatory with complaints of jr8 Vomiting - 24 wks preg, Numbness. 17:32 The patient presents to the emergency department with nausea, vomiting. Onset: The jr8 symptoms/episode began/occurred acutely, today. Possible causes: . The symptoms are aggravated by nothing. The symptoms are alleviated by nothing. Associated signs and symptoms: Pertinent positives: numbness to left arm, chest, and leg. Severity of symptoms: At their worst the symptoms were moderate in the emergency department the symptoms are unchanged. The patient has experienced similar episodes in the past, a few times. The patient has been recently seen by a physician: with similar presenting complaints. 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 - Social history:: Smoking status: Patient/guardian denies using tobacco. - Ebola Screening: : No symptoms or risks identified at this time. ROS: 17:32 Eyes: Negative for injury, pain, redness, and discharge, ENT: Negative for injury, jr8 pain, and discharge, Neck: Negative for injury, pain, and swelling, Cardiovascular: Negative for chest pain, palpitations, and edema, Respiratory: Negative for shortness of breath, cough, wheezing, and pleuritic chest pain, Back: Negative for injury and pain, MS/Extremity: Negative for injury and deformity, Skin: Negative for injury, rash, and discoloration. 17:32 Abdomen/GI: Positive for nausea and vomiting, Negative for abdominal pain, diarrhea, constipation, abdominal cramps, abdominal distension, anorexia, dysphagia, hematemesis, black/tarry stool, rectal pain, rectal bleeding, bowel incontinence, flatulence. 17:32 Neuro: Positive for numbness, Negative for altered mental status, dizziness, gait disturbance, headache, hearing loss, loss of consciousness, seizure activity, speech changes, syncope, near syncope, tingling, tinnitus, tremor, visual changes, weakness. Exam: 17:32 Eyes: Pupils equal round and reactive to light, extra-ocular motions intact. Lids and jr8 lashes normal. Conjunctiva and sclera are non-icteric and not injected. Cornea within normal limits. Periorbital areas with no swelling, redness, or edema. ENT: Nares patent. No nasal discharge, no septal abnormalities noted. Tympanic membranes are normal and external auditory canals are clear. Oropharynx with no redness, swelling, or masses, exudates, or evidence of obstruction, uvula midline. Mucous membranes moist. Neck: Trachea midline, no thyromegaly or masses palpated, and no cervical lymphadenopathy. Supple, full range of motion without nuchal rigidity, or vertebral point tenderness. No Meningismus. Cardiovascular: Regular rate and rhythm with a normal S1 and S2. No gallops, murmurs, or rubs. Normal PMI, no JVD. No pulse deficits. Respiratory: Lungs have equal breath sounds bilaterally, clear to auscultation and percussion. No rales, rhonchi or wheezes noted. No increased work of breathing, no retractions or nasal flaring. Abdomen/GI: Soft, non-tender, with normal bowel sounds. No distension or tympany. No guarding or rebound. No evidence of tenderness throughout. Gravid abdomen Back: No spinal tenderness. No costovertebral tenderness. Full range of motion. Skin: Warm, dry with normal turgor. Normal color with no rashes, no lesions, and no evidence of cellulitis. MS/ Extremity: Pulses equal, no cyanosis. Neurovascular intact. Full, normal range of motion. Neuro: Awake and alert, GCS 15, oriented to person, place, time, and situation. Cranial nerves II-XII grossly intact. Motor strength 5/5 in all extremities. Sensory grossly intact. Cerebellar exam normal. Normal gait. Vital Signs: 17:07 BP 134 / 88; Pulse 87; Resp 16; Temp 98.2; Pulse Ox 98% on R/A; Pain 0/10; hb 18:26 BP 116 / 65; Pulse 71; Resp 18; Pulse Ox 98% on R/A; ph 19:30 BP 101 / 59; Pulse 88; Resp 18; Pulse Ox 100% on R/A; jb4 NIH Stroke Scale Scores: 17:32 NIHSS Score: 0 MDM: 17:04 Patient medically screened. 19:02 Data reviewed: vital signs, nurses notes, lab test result(s). Data interpreted: Pulse 8 oximetry: on room air is 98 %. Interpretation: normal. Counseling: I had a detailed discussion with the patient and/or guardian regarding: the historical points, exam findings, and any diagnostic results supporting the discharge/admit diagnosis, lab results, the need for outpatient follow up, an OB/Gyne specialist, to return to the emergency department if symptoms worsen or persist or if there are any questions or concerns that arise at home. Response to treatment: the patient's symptoms have resolved after treatment. ED course: Tolerating PO fluids and food now. No Pain. All symptoms resolved . 09/18 17:15 Order name: Basic Metabolic Panel; Complete Time: 18:04 09/18 17:15 Order name: CBC with Diff; Complete Time: 17:56 09/18 17:15 Order name: Hepatic Function; Complete Time: 18:04 09/18 17:15 Order name: Lipase; Complete Time: 18:04 8 09/18 17:15 Order name: IV Saline Lock; Complete Time: 17:24 8 09/18 17:15 Order name: Labs collected and sent; Complete Time: 17:24 Administered Medications: 07:30 Drug: Reglan 10 mg Route: IVP; Site: right antecubital; rv 19:04 Follow up: Response: No adverse reaction ph 17:30 Drug: NS 0.9% 1000 ml Route: IV; Rate: 1000 ml; Site: right antecubital; rv 19:04 Follow up: Response: No adverse reaction; IV Status: Completed infusion ph 18:19 Drug: Tylenol 1000 mg Route: PO; ph 19:06 Follow up: Response: No adverse reaction ph Disposition: 09/19 06:13 Co-signature as Attending Physician, Zane Herring MD. rn Disposition: 09/18/18 19:26 Discharged to Home. Impression: Vomiting of , unspecified. - Condition is Stable. - Discharge Instructions: Hyperemesis Gravidarum. - Prescriptions for Reglan 10 mg Oral Tablet - take 1 tablet by ORAL route every 6 hours take 30 minutes before meals and at bedtime; 20 tablet. - Medication Reconciliation Form, Thank You Letter, Antibiotic Education, Prescription Opioid Use form. - Follow up: Private Physician; When: 2 - 3 days; Reason: Recheck today's complaints, Continuance of care, Re-evaluation by your physician. - Problem is new. - Symptoms have improved. NIH Stroke Scale - NIH Stroke Score Date: 09/18/2018 Time: 17:32 Total Score = 0 1a. Level of Consciousness (LOC) - 0(Alert) 1b. Level of Consciousness (LOC) (Year \T\ Age) - 0(Both) 1c. LOC Commands (Open \T\ Closes Eyes/Paper Slitter) - 0(Both) 2. Best Gaze (Lateral Gaze Paresis) - 0(Normal) 3. Visual Field Loss - 0(No visual loss) 4. Facial Palsy - 0(Normal) 5a. Left Arm: Motor (10-second hold) - 0(No drift) 5b. Right Arm: Motor (10-second hold) - 0(No drift) 6a. Left Leg: Motor (5-second hold - always test supine) - 0(No drift) 6b. Right Leg: Motor (5-second hold - always test supine) - 0(No drift) 7. Limb Ataxia (finger/nose \T\ heel/ortiz - test with eyes open) - 0(Absent) 8. Sensory Loss (pinprick arms/legs/face) - 0(Normal) 9. Best Language: Aphasia (description/naming/reading) - 0(No aphasia) 10. Dysarthria (speech clarity - read or repeat words) - 0(Normal) 11. Extinction and Inattention (visual/tactile/auditory/spatial/personal) - 0(No abnormality) Initials: jr8 Signatures: Dispatcher [employer] EDMS Zane Herring MD MD rn Roszak, Josh, PA PA jr8 Bethanie Cruz RN RN Kimberly Landeros, RN RN Floyd Cardenas RN RN jb4 Ye Mao RN RN rv Corrections: (The following items were deleted from the chart) 10/25 17:32 17:32 The patient has not recently seen a physician, eric jr8 19:40 19:26 09/18/2018 19:26 Discharged to Home. Impression: Vomiting of , jb4 unspecified. Condition is Stable. Forms are Medication Reconciliation Form, Thank You Letter, Antibiotic Education, Prescription Opioid Use. Follow up: Private Physician; When: 2 - 3 days; Reason: Recheck today's complaints, Continuance of care, Re-evaluation by your physician. Problem is new. Symptoms have improved. jr8
[2018-09-18 19:48] VITALS: TEMP 98.2
[2018-09-18 19:50] VITALS: BP 101/59; O2SAT 100
== END 2018-09-18 19:40 | disposition home or self-care (01) ==
LOC: ER 16:48
DX: O21.9 Vomiting of pregnancy, unspecified (principal); Z3A.24 24 weeks gestation of pregnancy; Z88.6 Allergy status to analgesic agent; Z91.018 Allergy to other foods
CPT/HCPCS: 36415; 80048; 80076; 83690; 85025; 96361; 96374; 99284; J2765; J7030

== ENCOUNTER 2018-10-05 13:59 | Emergency (ER) | payer MEDICAID ==
[2018-10-05] MEDS ORDERED: NA CHLORIDE 0.9% 1,000 ML ONE ×2 (14:47→16:16)
[2018-10-05] MEDS ORDERED: PROMETHAZINE 25 MG/ML VIAL ONE ×3 (14:47→18:18)
[2018-10-05 15:03] LABS: Absolute Lymphocytes (CBC) 1.4 K/uL (0.7-4.9); Absolute Monocytes 0.6 K/uL (0.1-1.3); Absolute Neutrophil 9.7 K/uL (1.8-8.0); Basophils % 0.2 % (0-1.3); Eosinophils % 0.5 % (0-4.4); Hematocrit 39.2 % (36.0-45.0); Lymphocytes % 11.8 % (15.3-44.8); MCH 30.8 pg (27.0-35.0); MCV 88.4 fL (80-100); MPV 8.3 fL (7.6-11.3); RBC Red Blood Cell Count 4.43 M/uL (3.86-4.86)
[2018-10-05 15:27] LABS: ALT/SGPT 14 U/L (12-78); AST/SGOT 13 U/L (15-37); Albumin 2.9 g/dL (3.4-5.0); Alkaline Phosphatase 56 U/L (45-117); BUN Blood Urea Nitrogen 6 mg/dL (7-18); Bicarbonate 21 mmol/L (21-32); Bilirubin Total 0.5 mg/dL (0.2-1.0); Glucose Level 84 mg/dL (74-106); Lipase 102 U/L (73-393); Potassium 3.6 mmol/L (3.5-5.1); Protein, Total 6.8 g/dL (6.4-8.2); Sodium Level 141 mmol/L (136-145)
[2018-10-05] MEDS ORDERED: ONDANSETRON 4 MG/2 ML VIAL ONE (17:29)
[2018-10-05] MEDS ORDERED: NA CHLORIDE 0.9% 100 ML IV ONE (18:18)
[2018-10-05 19:31] LABS: Urine Bacteria <20 /HPF (<20); Urine RBC <5 /HPF (NONE SEEN)
[2018-10-05 19:32] LABS: Urine Culture Reflex Order NOT NEEDED; Urine Mucus 2+ /HPF (NONE SEEN)
--- NOTE | 2018-10-05 19:49 | ER ---
Nurse's Notes [facility] Name: Suraj Fuentes Age: 27 yrs Sex: Female : 1990 Arrival Date: 10/05/2018 Time: 14:00 Bed 26 Private MD: out of town, doctor Diagnosis: Vomiting;Diarrhea, unspecified;Viral Gastroenteritis Presentation: 10/05 14:04 Presenting complaint: Patient states: N/V/D since this morning. "Several family members hb have stomach bug." Pt is 27 weeks , DYLAN 01/08. Transition of care: patient was not received from another setting of care. Onset of symptoms was October 05, 2018. Risk Assessment: Do you want to hurt yourself or someone else? Patient reports no desire to harm self or others. Care prior to arrival: None. 14:04 Method Of Arrival: Ambulatory 14:04 Acuity: SHAW 3 hb 20:36 Initial Sepsis Screen: Does the patient meet any 2 criteria? No. Patient's initial mg2 sepsis screen is negative. Does the patient have a suspected source of infection? No. Patient's initial sepsis screen is negative. Triage Assessment: 20:36 GI: Reports lower abdominal pain. mg2 Historical: - Allergies: 14:06 Ibuprofen; hb 14:06 ORANGES; hb - Home Meds: 14:06 Phenergan Supp Rectal [Active]; Vitamin Oral [Active]; Protonix Oral [Active]; hb Reglan Oral [Active]; Zofran Oral [Active]; - Immunization history:: Adult Immunizations up to date. - Social history:: Smoking status: Patient/guardian denies using tobacco. - Ebola Screening: : No symptoms or risks identified at this time. Screenin:55 Abuse screen: Denies threats or abuse. Nutritional screening: No deficits noted. tl3 Tuberculosis screening: No symptoms or risk factors identified. Fall Risk None identified. Assessment: 14:55 General: Appears distressed, uncomfortable, ill, well nourished, Behavior is calm, tl3 cooperative, appropriate for age. Pain: Complains of pain in abdomen with cramping and vomiting. Neuro: Level of Consciousness is awake, alert, obeys commands, Oriented to person, place, time, situation, Appropriate for age. Cardiovascular: Heart tones S1 S2 present Patient's skin is warm and dry. Respiratory: Airway is patent Respiratory effort is even, unlabored, Respiratory pattern is regular, symmetrical, Breath sounds are clear bilaterally. GI: Abdomen is Pt is actively vomiting bile, clear fluid. : No signs and/or symptoms were reported regarding the genitourinary system. EENT: No signs and/or symptoms were reported regarding the EENT system. Derm: No signs and/or symptoms reported regarding the dermatologic system. Musculoskeletal: No signs and/or symptoms reported regarding the musculoskeletal system. 16:00 Reassessment: No changes from previously documented assessment. Patient and/or family tl3 updated on plan of care and expected duration. Pain level reassessed. Patient is alert, oriented x 3, equal unlabored respirations, skin warm/dry/pink. pt still with occasional vomiting, additional orders recieved. 17:20 Reassessment: No changes from previously documented assessment. Patient and/or family tl3 updated on plan of care and expected duration. Pain level reassessed. Patient is alert, oriented x 3, equal unlabored respirations, skin warm/dry/pink. 19:07 Reassessment: Patient appears in no apparent distress at this time. Patient and/or tl3 family updated on plan of care and expected duration. Pain level reassessed. Patient is alert, oriented x 3, equal unlabored respirations, skin warm/dry/pink. pt sleeping quietly. Vital Signs: 14:05 BP 125 / 78; Pulse 113; Resp 16; Temp 97.9; Pulse Ox 97% on R/A; Pain 10/10; hb 14:55 BP 125 / 61; Pulse 85; Resp 18; Pulse Ox 97% on R/A; tl3 16:00 BP 116 / 75; Pulse 86; Resp 20; Pulse Ox 98% on R/A; tl3 17:20 BP 118 / 76; Pulse 77; Resp 18; Pulse Ox 99% on R/A; tl3 18:16 BP 116 / 75; Pulse 89; Resp 18; Pulse Ox 100% ; tl3 Vitals: 14:55 Heart Tones 140. tl3 ED Course: 14:00 Patient arrived in ED. mr 14:01 out of town, doctor is Private Physician. mr 14:05 Triage completed. hb 14:06 Arm band placed on right wrist. hb 14:09 Christian Avendaño NP is PHCP. pm1 14:09 Doug Mendiola MD is Attending Physician. pm1 14:37 Jayde Olmos, ALFONZO is Primary Nurse. tl3 14:55 Patient has correct armband on for positive identification. Bed in low position. Call tl3 light in reach. Side rails up X2. Adult w/ patient. Pulse ox on. NIBP on. Warm blanket given. Cool cloth applied. 14:55 No provider procedures requiring assistance completed. Initial lab(s) drawn, by me, tl3 sent to lab. Inserted saline lock: 20 gauge in right forearm, using aseptic technique. Blood collected. 20:35 IV discontinued, intact, bleeding controlled, No redness/swelling at site. Pressure mg2 dressing applied. Administered Medications: 14:53 Drug: Phenergan 12.5 mg Route: IVP; Site: right forearm; tl3 15:54 Follow up: Response: No adverse reaction tl3 14:54 Drug: NS 0.9% 1000 ml Route: IV; Rate: 1000 ml; Site: right forearm; Delivery: Primary tl3 tubing; 15:30 Follow up: IV Status: Completed infusion; IV Intake: 1000ml tl3 15:55 Drug: Phenergan 12.5 mg Route: IVP; Site: right forearm; tl3 19:11 Follow up: Response: No adverse reaction tl3 16:08 Drug: NS 0.9% 1000 ml Route: IV; Rate: 1000 ml; Site: right forearm; Delivery: Primary tl3 tubing; 17:00 Follow up: Response: No adverse reaction; IV Status: Completed infusion mg2 18:00 CANCELLED (Duplicate Order): Zofran 4 mg IM once tl3 18:01 Drug: Zofran 4 mg Route: IVP; Infused Over: 2 mins; Site: right forearm; tl3 18:03 Follow up: Response: Nausea unchanged tl3 18:30 Drug: Phenergan 25 mg Route: IVP; Infused Over: 10 mins; Site: right forearm; tl3 19:10 Follow up: Response: Vomiting decreased tl3 20:04 Drug: Zofran 4 mg Route: PO; mg2 20:36 Follow up: Response: No adverse reaction; Medication administered at discharge. mg2 Intake: 15:30 IV: 1000ml; Total: 1000ml. tl3 Outcome: 19:49 Discharge ordered by . pm1 20:35 Discharged to home ambulatory, with family. mg2 20:35 Condition: stable 20:35 Discharge instructions given to patient, family, Instructed on discharge instructions, follow up and referral plans. medication usage, Demonstrated understanding of instructions, follow-up care, medications, Prescriptions given X 2. 20:37 Patient left the ED. mg2 Signatures: Suraj Jazz AvendañoChristian, CHIEF CONSTRUCTION INSPECTOR CHIEF CONSTRUCTION INSPECTOR pm1 Kimberly Landeros, ALFONZO RN hb Jayde Olmos RN RN tl3 Tien Juarez RN RN mg2
--- NOTE | 2018-10-05 19:50 | EDPHYS ---
Physician Documentation [facility] Name: Suraj Fuentes Age: 27 yrs Sex: Female : 1990 Arrival Date: 10/05/2018 Time: 14:00 Bed 26 Private MD: out of town, doctor ED Physician Doug Mendiola HPI: 10/05 19:02 This 27 yrs old Female presents to ER via Ambulatory with complaints of pm1 Vomiting/Diarrhea. 19:03 The patient presents to the emergency department with nausea, vomiting, diarrhea. pm1 Onset: The symptoms/episode began/occurred this morning. Possible causes: sick contacts, by family, household, except for has stomach virus. The symptoms are aggravated by nothing. The symptoms are alleviated by nothing. prescription Zofran not helping at home. Associated signs and symptoms: Pertinent positives: diarrhea, nausea, vomiting, subjective fever, Pertinent negatives: dysuria. The patient has not experienced similar symptoms in the past. The patient has not recently seen a physician. Patient's family members except for her have nausea, vomiting and diarrhea due to stomach virus. Historical: - Allergies: 14:06 Ibuprofen; hb 14:06 ORANGES; hb - Home Meds: 14:06 Phenergan Supp Rectal [Active]; Vitamin Oral [Active]; Protonix Oral [Active]; hb Reglan Oral [Active]; Zofran Oral [Active]; - Immunization history:: Adult Immunizations up to date. - Social history:: Smoking status: Patient/guardian denies using tobacco. - Ebola Screening: : No symptoms or risks identified at this time. ROS: 19:11 Constitutional: Negative for fever, chills, and weight loss, Eyes: Negative for injury, pm1 pain, redness, and discharge, ENT: Negative for injury, pain, and discharge, Neck: Negative for injury, pain, and swelling, Cardiovascular: Negative for chest pain, palpitations, and edema, Respiratory: Negative for shortness of breath, cough, wheezing, and pleuritic chest pain. 19:11 Back: Negative for injury and pain, : Negative for injury, bleeding, discharge, and swelling, MS/Extremity: Negative for injury and deformity, Skin: Negative for injury, rash, and discoloration, Neuro: Negative for headache, weakness, numbness, tingling, and seizure. 19:11 Abdomen/GI: Positive for nausea, vomiting, and diarrhea, Negative for abdominal pain. Exam: 19:11 Constitutional: This is a well developed, well nourished patient who is awake, alert, pm1 and in no acute distress. Head/Face: Normocephalic, atraumatic. Eyes: Pupils equal round and reactive to light, extra-ocular motions intact. Lids and lashes normal. Conjunctiva and sclera are non-icteric and not injected. Cornea within normal limits. Periorbital areas with no swelling, redness, or edema. ENT: Nares patent. No nasal discharge, no septal abnormalities noted. Tympanic membranes are normal and external auditory canals are clear. Oropharynx with no redness, swelling, or masses, exudates, or evidence of obstruction, uvula midline. Mucous membranes moist. Neck: Trachea midline, no thyromegaly or masses palpated, and no cervical lymphadenopathy. Supple, full range of motion without nuchal rigidity, or vertebral point tenderness. No Meningismus. Chest/axilla: Normal chest wall appearance and motion. Nontender with no deformity. No lesions are appreciated. Cardiovascular: Regular rate and rhythm with a normal S1 and S2. No gallops, murmurs, or rubs. Normal PMI, no JVD. No pulse deficits. Respiratory: Lungs have equal breath sounds bilaterally, clear to auscultation and percussion. No rales, rhonchi or wheezes noted. No increased work of breathing, no retractions or nasal flaring. Abdomen/GI: Soft, non-tender, with normal bowel sounds. No distension or tympany. No guarding or rebound. No evidence of tenderness throughout. Back: No spinal tenderness. No costovertebral tenderness. Full range of motion. Skin: Warm, dry with normal turgor. Normal color with no rashes, no lesions, and no evidence of cellulitis. MS/ Extremity: Pulses equal, no cyanosis. Neurovascular intact. Full, normal range of motion. 19:11 Neuro: Orientation: is normal, Motor: is normal, moves all fours, strength is normal, strength is 5/5 in all extremities, Gait: is steady, at a normal pace, without difficulty. Vital Signs: 14:05 BP 125 / 78; Pulse 113; Resp 16; Temp 97.9; Pulse Ox 97% on R/A; Pain 10/10; hb 14:55 BP 125 / 61; Pulse 85; Resp 18; Pulse Ox 97% on R/A; tl3 16:00 BP 116 / 75; Pulse 86; Resp 20; Pulse Ox 98% on R/A; tl3 17:20 BP 118 / 76; Pulse 77; Resp 18; Pulse Ox 99% on R/A; tl3 18:16 BP 116 / 75; Pulse 89; Resp 18; Pulse Ox 100% ; tl3 MDM: 14:10 Patient medically screened. pm1 17:58 Data reviewed: vital signs. Data interpreted: Pulse oximetry: on room air is 98 %. pm1 Interpretation: normal. 19:47 Counseling: I had a detailed discussion with the patient and/or guardian regarding: the pm1 historical points, exam findings, and any diagnostic results supporting the discharge/admit diagnosis, lab results, the need for outpatient follow up, to return to the emergency department if symptoms worsen or persist or if there are any questions or concerns that arise at home. 10/05 14:21 Order name: CBC with Diff; Complete Time: 15:29 pm1 10/05 14:21 Order name: Urine Microscopic Only; Complete Time: 19:46 pm1 10/05 14:21 Order name: CMP; Complete Time: 15:29 pm1 10/05 14:22 Order name: Lipase; Complete Time: 15:29 pm1 10/05 17:40 Order name: Urine Dipstick--Ancillary (enter results) bd 10/05 14:21 Order name: IV Saline Lock; Complete Time: 14:54 pm1 10/05 14:21 Order name: Labs collected and sent; Complete Time: 14:54 pm1 10/05 14:21 Order name: FHT's; Complete Time: 14:55 pm1 Administered Medications: 14:53 Drug: Phenergan 12.5 mg Route: IVP; Site: right forearm; tl3 15:54 Follow up: Response: No adverse reaction tl3 14:54 Drug: NS 0.9% 1000 ml Route: IV; Rate: 1000 ml; Site: right forearm; Delivery: Primary tl3 tubing; 15:30 Follow up: IV Status: Completed infusion; IV Intake: 1000ml tl3 15:55 Drug: Phenergan 12.5 mg Route: IVP; Site: right forearm; tl3 19:11 Follow up: Response: No adverse reaction tl3 16:08 Drug: NS 0.9% 1000 ml Route: IV; Rate: 1000 ml; Site: right forearm; Delivery: Primary tl3 tubing; 17:00 Follow up: Response: No adverse reaction; IV Status: Completed infusion mg2 18:00 CANCELLED (Duplicate Order): Zofran 4 mg IM once tl3 18:01 Drug: Zofran 4 mg Route: IVP; Infused Over: 2 mins; Site: right forearm; tl3 18:03 Follow up: Response: Nausea unchanged tl3 18:30 Drug: Phenergan 25 mg Route: IVP; Infused Over: 10 mins; Site: right forearm; tl3 19:10 Follow up: Response: Vomiting decreased tl3 20:04 Drug: Zofran 4 mg Route: PO; mg2 20:36 Follow up: Response: No adverse reaction; Medication administered at discharge. mg2 Disposition: 10/05/18 19:49 Discharged to Home. Impression: Vomiting, Diarrhea, unspecified, Viral Gastroenteritis. - Condition is Stable. - Discharge Instructions: Food Choices to Help Relieve Diarrhea, Adult, Diarrhea, Adult, Nausea and Vomiting, Adult, Viral Gastroenteritis, Adult. - Prescriptions for Phenergan 25 mg Rectal Suppository - insert 1 suppository by RECTAL route every 6 hours As needed; 12 suppository. promethazine 25 mg Oral Tablet - take 1 tablet by ORAL route every 6 hours As needed; 20 tablet. - Medication Reconciliation Form, Thank You Letter form. - Follow up: Emergency Department; When: As needed; Reason: Worsening of condition. Follow up: Private Physician; When: 2 - 3 days; Reason: Recheck today's complaints, Continuance of care, Re-evaluation by your physician. - Problem is new. - Symptoms have improved. Signatures: Dispatcher [employer] EDMS Christian Avendaño NP LOGISTICS OPERATIONS MANAGER pm1 Kimberly Landeros RN RN Jayde Olmos RN RN tl3 Tien Juarez RN RN mg2 Corrections: (The following items were deleted from the chart) 18:00 17:59 Zofran 4 mg IM once ordered. tl3 tl3 20:37 19:49 10/05/2018 19:49 Discharged to Home. Impression: Vomiting; Diarrhea, unspecified; mg2 Viral Gastroenteritis. Condition is Stable. Forms are Medication Reconciliation Form, Thank You Letter, Antibiotic Education, Prescription Opioid Use. Follow up: Emergency Department; When: As needed; Reason: Worsening of condition. Follow up: Private Physician; When: 2 - 3 days; Reason: Recheck today's complaints, Continuance of care, Re-evaluation by your physician. Problem is new. Symptoms have improved. pm1
[2018-10-05] MEDS ORDERED: ONDANSETRON 4 MG (ODT) TAB ONE (20:10)
[2018-10-05 21:04] VITALS: TEMP 97.9
[2018-10-05 21:09] VITALS: BP 116/75; O2SAT 100
[2018-10-05 21:25] LABS: Urine Blood NEGATIVE (NEG); Urine Glucose NEGATIVE (NEG); Urine Protein NEGATIVE (NEG); Urine Specific Gravity >1.030 (1.005-1.030)
== END 2018-10-05 20:37 | disposition home or self-care (01) ==
LOC: ER 13:59
DX: A08.4 Viral intestinal infection, unspecified (principal)
CPT/HCPCS: 36415; 80053; 81003; 81015; 83690; 85025; 96361; 96374; 96375; 99284; J2405; J2550; J7030

== ENCOUNTER 2018-10-09 09:38 | Emergency (ER) | payer MEDICAID ==
[2018-10-09] MEDS ORDERED: NA CHLORIDE 0.9% 1,000 ML ONE (10:54)
[2018-10-09 11:03] LABS: Absolute Lymphocytes (CBC) 1.4 K/uL (0.7-4.9); Absolute Monocytes 0.6 K/uL (0.1-1.3); Absolute Neutrophil 7.9 K/uL (1.8-8.0); Basophils % 0.2 % (0-1.3); Eosinophils % 1.4 % (0-4.4); Hematocrit 37.5 % (36.0-45.0); Lymphocytes % 13.6 % (15.3-44.8); MCH 31.3 pg (27.0-35.0); MCV 89.1 fL (80-100); MPV 8.4 fL (7.6-11.3); Monocytes % 6.2 % (3.3-12.3); RBC Red Blood Cell Count 4.21 M/uL (3.86-4.86)
[2018-10-09] MEDS ORDERED: PROMETHAZINE 25 MG/ML VIAL ONE (11:03)
[2018-10-09 11:23] LABS: BUN Blood Urea Nitrogen 7 mg/dL (7-18); Bicarbonate 23 mmol/L (21-32); Glucose Level 91 mg/dL (74-106); Potassium 3.5 mmol/L (3.5-5.1); Sodium Level 142 mmol/L (136-145)
[2018-10-09] MEDS ORDERED: MAGNE/ALUM HYDROXD 30 ML UCUP ONE ×2 (11:42→12:12)
--- NOTE | 2018-10-09 11:59 | EDPHYS ---
Physician Documentation [facility] Name: Suraj Fuentes Age: 27 yrs Sex: Female : 1990 Arrival Date: 10/09/2018 Time: 09:40 Bed 7 Private MD: out of town, doctor ED Physician Zane Herring HPI: 10/09 10:44 This 27 yrs old Female presents to ER via Wheelchair with complaints of kav Abdominal Pain, Vomiting. 10:44 The patient presents with abdominal pain in the epigastric area. Onset: The kav symptoms/episode began/occurred acutely. The symptoms do not radiate. Associated signs and symptoms: Pertinent positives: nausea and vomiting, , Pertinent negatives: chest pain, constipation, diarrhea, dysuria, fever, headache, hematuria, nausea, vaginal discharge, vomiting blood. The symptoms are described as burning. Modifying factors: The symptoms are alleviated by nothing. Severity of pain: At its worst the pain was mild just prior to arrival. The patient has experienced similar episodes in the past, multiple times. 10:54 She was seen in [facility] on 10/08/18 for similar symptoms. She reports that the kav Zofran prescribed her is not working and reports that she has vomited x 20 this morning. . 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 - Family history:: not pertinent. - Hospitalizations: : No recent hospitalization is reported. - History obtained from: grandfather. ROS: 10:59 Constitutional: Negative for fever, chills, and weight loss, Eyes: Negative for injury, kav pain, redness, and discharge, ENT: Negative for injury, pain, and discharge, Neck: Negative for injury, pain, and swelling, Cardiovascular: Negative for chest pain, palpitations, and edema, Respiratory: Negative for shortness of breath, cough, wheezing, and pleuritic chest pain, Back: Negative for injury and pain, : Negative for injury, bleeding, discharge, and swelling, MS/Extremity: Negative for injury and deformity, Skin: Negative for injury, rash, and discoloration, Neuro: Negative for headache, weakness, numbness, tingling, and seizure, Psych: Negative for depression, anxiety, suicide ideation, homicidal ideation, and hallucinations, Allergy/Immunology: Negative for hives, rash, and allergies, Endocrine: Negative for neck swelling, polydipsia, polyuria, polyphagia, and marked weight changes, Hematologic/Lymphatic: Negative for swollen nodes, abnormal bleeding, and unusual bruising. 10:59 Abdomen/GI: Positive for nausea and vomiting, Negative for diarrhea, abdominal cramps. Exam: 10:59 Constitutional: This is a well developed, well nourished patient who is awake, alert, kav and in no acute distress. Head/Face: Normocephalic, atraumatic. Eyes: Pupils equal round and reactive to light, extra-ocular motions intact. Lids and lashes normal. Conjunctiva and sclera are non-icteric and not injected. Cornea within normal limits. Periorbital areas with no swelling, redness, or edema. ENT: Nares patent. No nasal discharge, no septal abnormalities noted. Tympanic membranes are normal and external auditory canals are clear. Oropharynx with no redness, swelling, or masses, exudates, or evidence of obstruction, uvula midline. Mucous membranes moist. Neck: Trachea midline, no thyromegaly or masses palpated, and no cervical lymphadenopathy. Supple, full range of motion without nuchal rigidity, or vertebral point tenderness. No Meningismus. Chest/axilla: Normal chest wall appearance and motion. Nontender with no deformity. No lesions are appreciated. Cardiovascular: Regular rate and rhythm with a normal S1 and S2. No gallops, murmurs, or rubs. Normal PMI, no JVD. No pulse deficits. Respiratory: Lungs have equal breath sounds bilaterally, clear to auscultation and percussion. No rales, rhonchi or wheezes noted. No increased work of breathing, no retractions or nasal flaring. Back: No spinal tenderness. No costovertebral tenderness. Full range of motion. Skin: Warm, dry with normal turgor. Normal color with no rashes, no lesions, and no evidence of cellulitis. MS/ Extremity: Pulses equal, no cyanosis. Neurovascular intact. Full, normal range of motion. Neuro: Awake and alert, GCS 15, oriented to person, place, time, and situation. Cranial nerves II-XII grossly intact. Motor strength 5/5 in all extremities. Sensory grossly intact. Cerebellar exam normal. Normal gait. Psych: Awake, alert, with orientation to person, place and time. Behavior, mood, and affect are within normal limits. 10:59 Abdomen/GI: Inspection: preganancy, Bowel sounds: normal, Palpation: abdomen is soft and non-tender, in all quadrants. Vital Signs: 10:05 BP 96 / 62; Pulse 91; Resp 20 S; Temp 98.0(TE); Pulse Ox 98% on R/A; Weight 79.38 kg aa5 (R); Height 5 ft. 2 in. (157.48 cm) (R); Pain 10/10; 11:00 BP 100 / 59; Pulse 90; Resp 18 S; Pulse Ox 99% on R/A; aa5 12:50 BP 110 / 60; Pulse 88; Resp 16 S; Temp 98.2(TE); Pulse Ox 99% on R/A; Pain 2/10; aa5 10:05 Body Mass Index 32.01 (79.38 kg, 157.48 cm) aa5 MDM: 10:02 Medical screening is not applicable. kav 10:50 Data reviewed: vital signs, nurses notes. ED course: checked by obgyn and "...cervix is kav closed, no contractions and is 27 weeks ". 11:59 Medical screening is not applicable. kav 10/09 10:40 Order name: Abo/rh Typing; Complete Time: 11:43 kav 10/09 10:40 Order name: Basic Metabolic Panel; Complete Time: 11:25 kav 10/09 10:40 Order name: CBC with Diff; Complete Time: 11:25 kav 10/09 12:01 Order name: Urine Microscopic Only dh3 10/09 12:05 Order name: Urine Dipstick--Ancillary (enter results) eb 10/09 12:05 Order name: Urine --Ancillary (enter results) eb 10/09 10:40 Order name: IV Saline Lock; Complete Time: 10:50 kav 10/09 10:40 Order name: Labs collected and sent; Complete Time: 10:50 kav 10/09 10:40 Order name: NPO; Complete Time: 10:50 kav 10/09 10:40 Order name: Urine Dipstick-Ancillary (obtain specimen); Complete Time: 12:01 kav Administered Medications: 10:50 Drug: NS 0.9% 1000 ml Route: IV; Rate: 1000 ml; Site: right antecubital; aa5 11:50 Follow up: IV Status: Completed infusion aa5 11:00 Drug: Phenergan 25 mg Route: IM; Site: right gluteus; aa5 11:15 Follow up: Response: No adverse reaction aa5 11:41 Drug: Maalox Suspension (200 mg-200 mg-20 mg/5 mL) 30 ml Route: PO; iw 11:50 Follow up: Response: No adverse reaction; Pain is decreased aa5 12:03 Drug: Maalox Suspension (200 mg-200 mg-20 mg/5 mL) 30 ml Route: PO; aa5 12:30 Follow up: Response: No adverse reaction; Pain is decreased aa5 Disposition: 17:24 Co-signature as Attending Physician, Zane Herring MD. rn Disposition: 10/09/18 11:59 Discharged to Home. Impression: Hyperemesis gravidarum with metabolic disturbance, related conditions, unspecified. - Condition is Stable. - Discharge Instructions: Hyperemesis Gravidarum, Morning Sickness, [id number], Eating Plan for Hyperemesis Gravidarum. - Prescriptions for Diclegis 10- 10 mg Oral tablet,delayed release (DR/EC) - take 1 tablet by ORAL route once daily; 30 tablet. - Medication Reconciliation Form, Thank You Letter, Antibiotic Education, Prescription Opioid Use form. - Follow up: Private Physician; When: 2 - 3 days; Reason: Recheck today's complaints, Continuance of care, Re-evaluation by your physician. - Problem is an ongoing problem. - Symptoms have improved. - Notes: follow up with your OBGYN in 3-5 days for post-ED evaluation and treatment ensure adequate hydration over the counter maalox as directed and as needed Signatures: Dispatcher [employer] EDLaura Bullock, DIRECTOR OF STUDENT AFFAIRS DIRECTOR OF STUDENT AFFAIRS Yuki Arredondo RN ALFONZO iw Herring, Zane, MD MD rn Cummins, Heather, RN RN aa5 Corrections: (The following items were deleted from the chart) 10:59 10:44 The patient has been recently seen at the [facility] Emergency Department, [facility] 13:08 11:59 10/09/2018 11:59 Discharged to Home. Impression: Hyperemesis gravidarum with aa5 metabolic disturbance; related conditions, unspecified. Condition is Stable. Discharge Instructions: Hyperemesis Gravidarum, Morning Sickness, [id number], Eating Plan for Hyperemesis Gravidarum. Forms are Medication Reconciliation Form, Thank You Letter, Antibiotic Education, Prescription Opioid Use. Follow up: Private Physician; When: 2 - 3 days; Reason: Recheck today's complaints, Continuance of care, Re-evaluation by your physician. Problem is an ongoing problem. Symptoms have improved. [facility]
--- NOTE | 2018-10-09 11:59 | ER ---
Nurse's Notes [facility] Name: Suraj Fuentes Age: 27 yrs Sex: Female : 1990 Arrival Date: 10/09/2018 Time: 09:40 Bed 7 Private MD: out of town, doctor Diagnosis: Hyperemesis gravidarum with metabolic disturbance; related conditions, unspecified Presentation: 10/09 10:01 Presenting complaint: Patient states: upper abd pain that began yesterday. Pt states aa5 "I've had vomiting throughout the whole but it got worse 3 days ago". Pt also reports diarrhea x 2-3 days ago. Pt reports being 27 weeks . Pt was cleared by L\\T\\ D (negative for contractions). 10:01 Transition of care: patient was not received from another setting of care. Onset of aa5 symptoms was September 2018. Risk Assessment: Do you want to hurt yourself or someone else? Patient reports no desire to harm self or others. Initial Sepsis Screen: Does the patient meet any 2 criteria? No. Patient's initial sepsis screen is negative. Does the patient have a suspected source of infection? No. Patient's initial sepsis screen is negative. Care prior to arrival: None. 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 - Family history:: not pertinent. - Hospitalizations: : No recent hospitalization is reported. - History obtained from: grandfather. Screenin:05 Abuse screen: Denies threats or abuse. Nutritional screening: No deficits noted. aa5 Tuberculosis screening: No symptoms or risk factors identified. Fall Risk None identified. Assessment: 10:05 General: Appears uncomfortable, Behavior is cooperative. Pain: Complains of pain in aa5 epigastric area Pain does not radiate. Pain currently is 10 out of 10 on a pain scale. Quality of pain is described as Pt states "It feels like I ripped something from all the vomiting" Is continuous. Neuro: Level of Consciousness is awake, alert, obeys commands, Oriented to person, place, time, situation. Cardiovascular: Heart tones S1 S2 present Rhythm is regular. Respiratory: Airway is patent Respiratory effort is even, unlabored, Respiratory pattern is regular, symmetrical, Breath sounds are clear bilaterally. GI: Abdomen is round Abd is non tender X 4 quads Reports diarrhea, nausea, vomiting. : No signs and/or symptoms were reported regarding the genitourinary system. EENT: No signs and/or symptoms were reported regarding the EENT system. Derm: Skin is pink, warm \\T\\ dry. Musculoskeletal: Range of motion: intact in all extremities. 11:15 Reassessment: Pt appears comfortable resting in bed with eyes closed, respirations even aa5 and unlabored, skin is pink/warm/dry. . 11:50 Reassessment: Patient and/or family updated on plan of care and expected duration. Pain aa5 level reassessed. Patient is alert, oriented x 3, equal unlabored respirations, skin warm/dry/pink. Patient states feeling better. Pain: Pain currently is 4 out of 10 on a pain scale. 13:00 Reassessment: Patient is alert, oriented x 3, equal unlabored respirations, skin aa5 warm/dry/pink. Patient states feeling better. Pain: Pain currently is 2 out of 10 on a pain scale. Vital Signs: 10:05 BP 96 / 62; Pulse 91; Resp 20 S; Temp 98.0(TE); Pulse Ox 98% on R/A; Weight 79.38 kg aa5 (R); Height 5 ft. 2 in. (157.48 cm) (R); Pain 10/10; 11:00 BP 100 / 59; Pulse 90; Resp 18 S; Pulse Ox 99% on R/A; aa5 12:50 BP 110 / 60; Pulse 88; Resp 16 S; Temp 98.2(TE); Pulse Ox 99% on R/A; Pain 2/10; aa5 10:05 Body Mass Index 32.01 (79.38 kg, 157.48 cm) aa5 Vitals: 10:18 Heart Tones: 156 per L\\T\\D. 3 ED Course: 09:40 Patient arrived in ED. mr 09:40 out of town, doctor is Private Physician. mr 10:01 Laura Bucio FNP is PHCP. kav 10:01 Zane Herring MD is Attending Physician. kav 10:01 Arm band placed on. aa5 10:01 Patient has correct armband on for positive identification. Placed in gown. Bed in low aa5 position. Call light in reach. Side rails up X2. 10:13 Laura Bucio FNP is PHCP. kav 10:13 Zane Herring MD is Attending Physician. kav 10:20 Heather Cummins, ALFONZO is Primary Nurse. aa5 10:22 EKG done, by noc technician. reviewed by Laura WELLINGTON. at1 10:31 Triage completed. aa5 10:48 Initial lab(s) drawn, sent to lab. Inserted saline lock: 20 gauge in right antecubital aa5 area, using aseptic technique. Blood collected. 10:48 No provider procedures requiring assistance completed. aa5 12:00 Urine collected: clean catch specimen, ham colored. dh3 13:00 IV discontinued, intact, bleeding controlled, No redness/swelling at site. Pressure aa5 dressing applied. Administered Medications: 10:50 Drug: NS 0.9% 1000 ml Route: IV; Rate: 1000 ml; Site: right antecubital; aa5 11:50 Follow up: IV Status: Completed infusion aa5 11:00 Drug: Phenergan 25 mg Route: IM; Site: right gluteus; aa5 11:15 Follow up: Response: No adverse reaction aa5 11:41 Drug: Maalox Suspension (200 mg-200 mg-20 mg/5 mL) 30 ml Route: PO; iw 11:50 Follow up: Response: No adverse reaction; Pain is decreased aa5 12:03 Drug: Maalox Suspension (200 mg-200 mg-20 mg/5 mL) 30 ml Route: PO; aa5 12:30 Follow up: Response: No adverse reaction; Pain is decreased aa5 Outcome: 11:59 Discharge ordered by . kav 13:00 Discharged to home ambulatory, with friend. aa5 13:00 Condition: improved 13:00 Discharge instructions given to patient, Instructed on discharge instructions, follow up and referral plans. medication usage, Demonstrated understanding of instructions, follow-up care, medications, Prescriptions given X 1. 13:08 Patient left the ED. aa5 Signatures: Laura Bucio, OFFICE COORDINATOR RECEPTIONIST OFFICE COORDINATOR RECEPTIONIST sandra Ruelas, Jazz mr Yuki Cornejo, RN RN Heather Narayan RN RN aa5 Sharlene Jules, interactive web developer EKG Tat1 Lakisha Smith 3 Corrections: (The following items were deleted from the chart) 10:32 10:01 Presenting complaint: Patient states: upper abd pain that began yesterday. Pt aa5 states "I've had vomiting throughout the whole but it got worse 3 days ago". Pt also reports diarrhea x 2-3 days ago. Pt reports being 27 weeks . aa5
[2018-10-09 12:37] LABS: Urine Bacteria <20 /HPF (<20); Urine Culture Reflex Order NOT NEEDED; Urine Mucus 4+ /HPF (NONE SEEN); Urine RBC <5 /HPF (NONE SEEN)
[2018-10-09 13:22] VITALS: BP 96/62; TEMP 98; O2SAT 98
[2018-10-09 14:51] LABS: Urine Blood NEGATIVE (NEG); Urine Glucose NEGATIVE (NEG); Urine Protein 1+ (NEG); Urine Specific Gravity 1.025 (1.005-1.030)
--- NOTE | 2018-10-10 07:07 | EKG ---
Test Date: 2018-10-09 Test Time: 10:20:49 Manager Audit: MELVIN MEASUREMENT RESULTS: Intervals: Rate: 107 MI: 112 QRSD: 88 QT: 388 QTc: 517 Topmost: P: 39 MI: 112 QRS: 75 T: -1 INTERPRETIVE STATEMENTS: Sinus tachycardia Nonspecific T wave abnormality Abnormal ECG Compared to ECG 08/14/2018 11:49:31 T-wave abnormality now present Sinus rhythm no longer present Electronically Signed On 10-10-18 07:06:21 OPTICAL EFFECTS LAYOUT PERSON by Sammy Corbin
== END 2018-10-09 13:08 | disposition home or self-care (01) ==
LOC: ER 09:38
DX: O21.1 Hyperemesis gravidarum with metabolic disturbance (principal); Z3A.27 27 weeks gestation of pregnancy; Z88.6 Allergy status to analgesic agent; Z91.018 Allergy to other foods
CPT/HCPCS: 36415; 80048; 81003; 81015; 81025; 85025; 86900; 86901; 93005; 96360; 96372; 99284; J2550; J7030

== ENCOUNTER 2018-10-15 21:18 | Emergency (ER) | payer MEDICAID ==
[2018-10-15] MEDS ORDERED: NA CHLORIDE 0.9% 1,000 ML ONE (22:06)
[2018-10-15 22:45] LABS: Absolute Monocytes 0.6 K/uL (0.1-1.3); Basophils % 0.2 % (0-1.3)
[2018-10-15 22:53] LABS: Absolute Lymphocytes (CBC) 1.6 K/uL (0.7-4.9); Absolute Neutrophil 8.3 K/uL (1.8-8.0); Eosinophils % 0.8 % (0-4.4); Hematocrit 38.2 % (36.0-45.0); Lymphocytes % 15.4 % (15.3-44.8); MCV 88.8 fL (80-100); MPV 8.7 fL (7.6-11.3); Monocytes % 5.7 % (3.3-12.3); RBC Red Blood Cell Count 4.31 M/uL (3.86-4.86)
[2018-10-15 22:56] LABS: ALT/SGPT 13 U/L (12-78); AST/SGOT 13 U/L (15-37); Albumin 3.1 g/dL (3.4-5.0); Alkaline Phosphatase 55 U/L (45-117); BUN Blood Urea Nitrogen 7 mg/dL (7-18); Bicarbonate 26 mmol/L (21-32); Bilirubin Direct 0.2 mg/dL (0-0.2); Bilirubin Total 0.6 mg/dL (0.2-1.0); Glucose Level 99 mg/dL (74-106); Lipase 101 U/L (73-393); Potassium 3.3 mmol/L (3.5-5.1); Sodium Level 139 mmol/L (136-145)
[2018-10-16] MEDS ORDERED: ONDANSETRON 4 MG/2 ML VIAL ONE (00:25)
[2018-10-16] MEDS ORDERED: NA CHLORIDE 0.9% 0 ML ONE (00:25)
[2018-10-16] MEDS ORDERED: NS KCL 20MEQ 1,000 ML IV ONE (00:27)
[2018-10-16] MEDS ORDERED: MAGNE/ALUM HYDROXD 30 ML UCUP ONE (01:42)
--- NOTE | 2018-10-16 02:12 | ER ---
Nurse's Notes [facility] Name: Suraj Fuentes Age: 27 yrs Sex: Female : 1990 Arrival Date: 10/15/2018 Time: 21:20 Bed 30 Private MD: Diagnosis: Hyperemesis gravidarum with metabolic disturbance;Hypokalemia Presentation: 10/15 21:40 Presenting complaint: Patient states: Vomiting repeatedly that started yesterday aj1 morning. States that she was seen at [facility] for the same complaint yesterday. States that she has been unable to hold anything down. Patient is currently 28 weeks . Transition of care: patient was not received from another setting of care. Onset of symptoms was October 14, 2018. Risk Assessment: Do you want to hurt yourself or someone else? Patient reports no desire to harm self or others. Initial Sepsis Screen: Does the patient meet any 2 criteria? No. Patient's initial sepsis screen is negative. Does the patient have a suspected source of infection? No. Patient's initial sepsis screen is negative. Care prior to arrival: None. 21:40 Method Of Arrival: Ambulatory aj1 21:40 Acuity: SHAW 3 aj1 Triage Assessment: 21:43 General: Appears in no apparent distress. uncomfortable, Behavior is cooperative, aj1 appropriate for age, restless. Pain: Denies pain. Neuro: Level of Consciousness is awake, alert, obeys commands. Cardiovascular: Patient's skin is warm and dry. Respiratory: Airway is patent Respiratory effort is even, unlabored, Respiratory pattern is regular, symmetrical. GI: Reports vomiting. 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 - Social history:: Smoking status: Patient/guardian denies using tobacco. - Ebola Screening: : Patient denies travel to an Ebola-affected area in the 21 days before illness onset. Screenin:02 Abuse screen: Denies threats or abuse. Denies injuries from another. Nutritional ls4 screening: No deficits noted. Tuberculosis screening: No symptoms or risk factors identified. Fall Risk None identified. Assessment: 22:02 General: Appears in no apparent distress. unkempt. Pain: Denies pain. Neuro: No ls4 deficits noted. Cardiovascular: No deficits noted. Respiratory: No deficits noted. GI: No deficits noted. Reports nausea. GI: Abdomen is round non-distended, Bowel sounds present X 4 quads. : No deficits noted. Musculoskeletal: No deficits noted. 22:38 Reassessment: Patient appears in no apparent distress at this time. Patient and/or ls4 family updated on plan of care and expected duration. Pain level reassessed. pt in no distress. pt not actively vomiting. ambulated to bathroom independently without distress. 23:06 Reassessment: Patient and/or family updated on plan of care and expected duration. Pain ls4 level reassessed. Patient is alert, oriented x 3, equal unlabored respirations, skin warm/dry/pink. pt sleeping on side. no apparent distress. 10/16 00:42 Reassessment: Patient and/or family updated on plan of care and expected duration. Pain ls4 level reassessed. 01:31 Reassessment: Patient and/or family updated on plan of care and expected duration. Pain ls4 level reassessed. Patient is alert, oriented x 3, equal unlabored respirations, skin warm/dry/pink. 02:22 Reassessment: Patient appears in no apparent distress at this time. Patient and/or ls4 family updated on plan of care and expected duration. Pain level reassessed. Patient is alert, oriented x 3, equal unlabored respirations, skin warm/dry/pink. Vital Signs: 10/15 21:43 BP 115 / 92; Pulse 106; Resp 18; Temp 98.8; Pulse Ox 97% on R/A; Weight 76.2 kg; Height aj1 5 ft. 2 in. (157.48 cm); Pain 0/10; 23:06 BP 112 / 76; Pulse 74; Resp 18; Pulse Ox 99% on R/A; Pain 0/10; ls4 10/16 00:38 BP 109 / 52; Pulse 76; Resp 16; Temp 98.4; Pulse Ox 99% on R/A; Pain 0/10; ls4 02:21 BP 108 / 70; Pulse 72; Resp 16; Temp 98.4(O); Pulse Ox 99% on R/A; Pain 0/10; ls4 10/15 21:43 Body Mass Index 30.73 (76.20 kg, 157.48 cm) aj1 Vitals: 01:56 Heart Tones 152. ls4 ED Course: 10/15 21:20 Patient arrived in ED. al2 21:33 Malia Hunter, RN is Primary Nurse. ls4 21:36 Ye Corcoran MD is Attending Physician. tw4 21:41 Triage completed. aj1 21:43 Arm band placed on Patient placed in an exam room. aj1 21:50 Initial lab(s) drawn, by me, sent to lab. Inserted saline lock: 22 gauge in right jp3 forearm, using aseptic technique. Blood collected. 22:01 Call light in reach. Side rails up X 1. Side rails up X2. Warm blanket given. Pillow jp3 given. Pulse ox on. NIBP on. 22:01 Basic Metabolic Panel Sent. jp3 22:01 CBC with Diff Sent. jp3 22:02 Creatinine for Radiology Sent. jp3 22:02 Hepatic Function Sent. jp3 22:02 No provider procedures requiring assistance completed. ls4 22:03 Lipase Sent. jp3 22:28 Lab(s) recollected, by me, sent to lab. via 22-gauge needle/syringe from [facility]. jp3 22:29 CBC with Diff Sent. jp3 22:30 Basic Metabolic Panel Sent. jp3 22:30 Hepatic Function Sent. jp3 22:30 Lipase Sent. jp3 10/16 02:25 IV discontinued, intact, bleeding controlled, No redness/swelling at site. Pressure ls4 dressing applied. Administered Medications: 10/15 22:01 Drug: NS 0.9% 1000 ml Route: IV; Rate: 1 bolus; Site: right antecubital; ls4 10/16 00:38 Follow up: IV Status: Completed infusion; IV Intake: 1000ml ls4 00:06 CANCELLED (Other Intervention Used): Diclegis 10 mg-10 mg 2 tab-caps PO once; ls4 administer on empty stomach (at least 1 hr before/2 hrs after food/meal); swallow whole; do not crush/chew/break/dissolve/cut/(open) 00:35 Drug: Potassium Chloride 20 mEq Route: IV; Rate: calculated rate; Site: right hand; ls4 02:11 Follow up: IV Status: Completed infusion; IV Intake: 20ml ls4 00:36 Drug: NS 0.9% 1000 ml Route: IV; Rate: 1 bolus; Site: right hand; ls4 02:11 Follow up: IV Status: Completed infusion; IV Intake: 1000ml ls4 00:36 Drug: Zofran 4 mg Route: IVP; Site: right hand; ls4 01:05 Follow up: Response: No adverse reaction; Nausea is decreased ls4 01:38 Drug: Maalox Suspension (200 mg-200 mg-20 mg/5 mL) 30 ml Route: PO; ls4 02:10 Follow up: Response: No adverse reaction; Pain is decreased ls4 Intake: 00:38 IV: 1000ml; Total: 1000ml. ls4 02:11 IV: 20ml; Total: 1020ml. ls4 02:11 IV: 1000ml; Total: 2020ml. ls4 Outcome: 02:11 Discharge ordered by . tw4 02:22 Discharged to home ambulatory, with family. ls4 02:22 Condition: stable 02:22 Discharge instructions given to patient, family, Instructed on discharge instructions, follow up and referral plans. medication usage, safety practices, Demonstrated understanding of instructions, follow-up care, medications, Prescriptions given X 1. 02:26 Patient left the ED. ls4 Signatures: Tracee Mcneil, RN RN raj1 Mini Monsivais alYe Gordon MD MD tw4 Kunal Scott jp3 Malia Hunter RN RN ls4
--- NOTE | 2018-10-16 02:12 | EDPHYS ---
Physician Documentation [facility] Name: Suraj Fuentes Age: 27 yrs Sex: Female : 1990 Arrival Date: 10/15/2018 Time: 21:20 Bed 30 Private MD: ED Physician Ye Corcoran HPI: 10/16 06:24 This 27 yrs old Female presents to ER via Ambulatory with complaints of tw4 Vomiting, 28 WEEKS PREG. 06:24 The patient presents to the emergency department with nausea, vomiting. Onset: The tw4 symptoms/episode began/occurred today. Possible causes: . The symptoms are aggravated by nothing. The symptoms are alleviated by nothing. Associated signs and symptoms: The patient has no apparent associated signs or symptoms. Severity of symptoms: At their worst the symptoms were moderate in the emergency department the symptoms are unchanged. The patient has not experienced similar symptoms in the past. 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 - Social history:: Smoking status: Patient/guardian denies using tobacco. - Ebola Screening: : Patient denies travel to an Ebola-affected area in the 21 days before illness onset. ROS: 10/16 06:24 Constitutional: Negative for fever, chills, and weight loss, Cardiovascular: Negative tw4 for chest pain, palpitations, and edema, Respiratory: Negative for shortness of breath, cough, wheezing, and pleuritic chest pain, Back: Negative for injury and pain, MS/Extremity: Negative for injury and deformity, Skin: Negative for injury, rash, and discoloration. Abdomen/GI: Positive for nausea and vomiting, nausea, vomiting, and diarrhea, nausea, vomiting, Negative for abdominal pain, abdominal cramps, abdominal distension, anorexia, dysphagia. Exam: 06:24 Constitutional: This is a well developed, well nourished patient who is awake, alert, tw4 and in no acute distress. Head/Face: Normocephalic, atraumatic. Chest/axilla: Normal chest wall appearance and motion. Nontender with no deformity. No lesions are appreciated. Cardiovascular: Regular rate and rhythm with a normal S1 and S2. No gallops, murmurs, or rubs. Normal PMI, no JVD. No pulse deficits. Respiratory: Lungs have equal breath sounds bilaterally, clear to auscultation and percussion. No rales, rhonchi or wheezes noted. No increased work of breathing, no retractions or nasal flaring. Abdomen/GI: Soft, non-tender, with normal bowel sounds. No distension or tympany. No guarding or rebound. No evidence of tenderness throughout. MS/ Extremity: Pulses equal, no cyanosis. Neurovascular intact. Full, normal range of motion. Neuro: Awake and alert, GCS 15, oriented to person, place, time, and situation. Cranial nerves II-XII grossly intact. Motor strength 5/5 in all extremities. Sensory grossly intact. Cerebellar exam normal. Normal gait. Vital Signs: 10/15 21:43 BP 115 / 92; Pulse 106; Resp 18; Temp 98.8; Pulse Ox 97% on R/A; Weight 76.2 kg; Height aj1 5 ft. 2 in. (157.48 cm); Pain 0/10; 23:06 BP 112 / 76; Pulse 74; Resp 18; Pulse Ox 99% on R/A; Pain 0/10; ls4 10/16 00:38 BP 109 / 52; Pulse 76; Resp 16; Temp 98.4; Pulse Ox 99% on R/A; Pain 0/10; ls4 02:21 BP 108 / 70; Pulse 72; Resp 16; Temp 98.4(O); Pulse Ox 99% on R/A; Pain 0/10; ls4 10/15 21:43 Body Mass Index 30.73 (76.20 kg, 157.48 cm) aj1 MDM: 10/15 21:36 Patient medically screened. tw4 10/16 06:26 Differential diagnosis: Nonspecific abd pain, gastritis, cholecystitis, pancreatitis. tw4 Data reviewed: vital signs, nurses notes. Counseling: I had a detailed discussion with the patient and/or guardian regarding: the historical points, exam findings, and any diagnostic results supporting the discharge/admit diagnosis. 10/15 21:38 Order name: Basic Metabolic Panel; Complete Time: 00:14 tw4 10/16 00:14 Interpretation: K 3.3. tw4 10/15 21:38 Order name: CBC with Diff; Complete Time: 00:14 tw4 10/16 00:14 Interpretation: Normal except: ANGELITO% 77.9. tw4 10/15 21:38 Order name: Creatinine for Radiology; Complete Time: 00:14 tw4 10/16 00:14 Interpretation: Within normal limits: CRE 0.60; GFR > 90. tw4 10/15 21:38 Order name: Hepatic Function; Complete Time: 00:14 tw4 10/16 00:14 Interpretation: Normal except: A/G 0.8; GLOB 3.9; ALB 3.1; AST 13. tw4 10/15 21:38 Order name: Lipase; Complete Time: 00:14 tw4 10/16 00:14 Interpretation: Within normal limits: LIP 101. tw4 10/15 21:38 Order name: IV Saline Lock; Complete Time: 22:03 tw4 10/15 21:38 Order name: Labs collected and sent; Complete Time: 22:03 tw4 10/16 01:42 Order name: Heart Tones; Complete Time: 02:10 tw4 Administered Medications: 10/15 22:01 Drug: NS 0.9% 1000 ml Route: IV; Rate: 1 bolus; Site: right antecubital; ls4 10/16 00:38 Follow up: IV Status: Completed infusion; IV Intake: 1000ml ls4 00:06 CANCELLED (Other Intervention Used): Diclegis 10 mg-10 mg 2 tab-caps PO once; ls4 administer on empty stomach (at least 1 hr before/2 hrs after food/meal); swallow whole; do not crush/chew/break/dissolve/cut/(open) 00:35 Drug: Potassium Chloride 20 mEq Route: IV; Rate: calculated rate; Site: right hand; ls4 02:11 Follow up: IV Status: Completed infusion; IV Intake: 20ml ls4 00:36 Drug: NS 0.9% 1000 ml Route: IV; Rate: 1 bolus; Site: right hand; ls4 02:11 Follow up: IV Status: Completed infusion; IV Intake: 1000ml ls4 00:36 Drug: Zofran 4 mg Route: IVP; Site: right hand; ls4 01:05 Follow up: Response: No adverse reaction; Nausea is decreased ls4 01:38 Drug: Maalox Suspension (200 mg-200 mg-20 mg/5 mL) 30 ml Route: PO; ls4 02:10 Follow up: Response: No adverse reaction; Pain is decreased ls4 Disposition: 10/16/18 02:11 Discharged to Home. Impression: Hyperemesis gravidarum with metabolic disturbance, Hypokalemia. - Condition is Stable. - Discharge Instructions: Potassium Content of Foods, Hyperemesis Gravidarum, Morning Sickness, [id number], Hypokalemia. - Prescriptions for Diclegis 10- 10 mg Oral tablet,delayed release (DR/EC) - take 2 tablet by ORAL route once daily; 20 tablet. - Medication Reconciliation Form, Thank You Letter, Antibiotic Education, Prescription Opioid Use form. - Follow up: Private Physician; When: Upon discharge from the Emergency Department; Reason: Further diagnostic work-up, Recheck today's complaints, Continuance of care. - Problem is new. - Symptoms have improved. Signatures: Dispatcher [employer] EDMS Tracee Mcneil RN RN aj1 Ye Corcoran MD MD tw4 Malia Hunter RN RN ls4 Corrections: (The following items were deleted from the chart) 00:06 10/15 23:01 Diclegis Delayed Release Tablet 10 mg-10 mg 2 tab-caps PO once; administer ls4 on empty stomach (at least 1 hr before/2 hrs after food/meal); swallow whole; do not crush/chew/break/dissolve/cut/(open) ordered. 4 10/16 00:14 00:14 A/G 0.8; GLOB 3.9; ALB 3.1; AST 13. 4 tw4 02:26 02:11 10/16/2018 02:11 Discharged to Home. Impression: Hyperemesis gravidarum with ls4 metabolic disturbance; Hypokalemia. Condition is Stable. Forms are Medication Reconciliation Form, Thank You Letter, Antibiotic Education, Prescription Opioid Use. Follow up: Private Physician; When: Upon discharge from the Emergency Department; Reason: Further diagnostic work-up, Recheck today's complaints, Continuance of care. Problem is new. Symptoms have improved. tw4
[2018-10-16 05:26] VITALS: O2SAT 99
[2018-10-16 05:27] VITALS: TEMP 98.4
[2018-10-16 05:28] VITALS: BP 108/70
== END 2018-10-16 02:26 | disposition home or self-care (01) ==
LOC: ER 21:18
DX: O21.1 Hyperemesis gravidarum with metabolic disturbance (principal); E87.6 Hypokalemia; Z88.6 Allergy status to analgesic agent; Z91.018 Allergy to other foods; Z3A.28 28 weeks gestation of pregnancy
CPT/HCPCS: 36415; 80048; 80076; 83690; 85025; 96361; 96365; 96366; 96375; 99284; J2405; J7030

== ENCOUNTER 2018-10-28 00:25 | Emergency (ER) | payer MEDICAID ==
[2018-10-28] MEDS ORDERED: NA CHLORIDE 0.9% 50 ML IV ONE ×2 (01:09→04:06)
[2018-10-28] MEDS ORDERED: PROMETHAZINE 25 MG/ML VIAL ONE ×2 (01:09→04:06)
[2018-10-28] MEDS ORDERED: NA CHLORIDE 0.9% 1,000 ML ONE ×2 (01:09→04:06)
[2018-10-28 01:26] LABS: Absolute Lymphocytes (CBC) 1.8 K/uL (0.7-4.9); Absolute Monocytes 0.7 K/uL (0.1-1.3); Absolute Neutrophil 8.3 K/uL (1.8-8.0); Basophils % 0.2 % (0-1.3); Eosinophils % 0.9 % (0-4.4); Hematocrit 37.5 % (36.0-45.0); Lymphocytes % 16.9 % (15.3-44.8); MCH 31.5 pg (27.0-35.0); MCV 88.2 fL (80-100); MPV 8.6 fL (7.6-11.3); Monocytes % 6.6 % (3.3-12.3); RBC Red Blood Cell Count 4.25 M/uL (3.86-4.86)
[2018-10-28 01:38] LABS: ALT/SGPT 13 U/L (12-78); AST/SGOT 11 U/L (15-37); Albumin 2.8 g/dL (3.4-5.0); Alkaline Phosphatase 72 U/L (45-117); BUN Blood Urea Nitrogen 5 mg/dL (7-18); Bicarbonate 22 mmol/L (21-32); Bilirubin Direct 0.2 mg/dL (0-0.2); Bilirubin Total 0.6 mg/dL (0.2-1.0); Glucose Level 101 mg/dL (74-106); Lipase 89 U/L (73-393); Potassium 3.6 mmol/L (3.5-5.1); Protein, Total 6.9 g/dL (6.4-8.2); Sodium Level 139 mmol/L (136-145)
[2018-10-28] MEDS ORDERED: MORPHINE 2 MG/ML SYR ONE (01:56)
[2018-10-28] MEDS ORDERED: CEFTRIAXONE/SWI 1gm 1 GM/10 ML SYR ONE (04:06)
[2018-10-28 04:30] LABS: Urine Blood NEGATIVE (NEG); Urine Glucose NEGATIVE (NEG); Urine Protein 1+ (NEG); Urine Specific Gravity >1.030 (1.005-1.030)
[2018-10-28 04:49] LABS: Urine Culture Reflex Order NOT NEEDED
[2018-10-28 04:50] LABS: Urine Mucus 1+ /HPF (NONE SEEN)
[2018-10-28 04:51] LABS: Urine Bacteria <20 /HPF (<20); Urine RBC <5 /HPF (NONE SEEN)
--- NOTE | 2018-10-28 05:37 | ER ---
Nurse's Notes [facility] Name: Suraj Fuentes Age: 28 yrs Sex: Female : 1990 Arrival Date: 10/28/2018 Time: 00:26 Bed 7 Private MD: Diagnosis: Acute Nausea and Vomiting;Hyperemesis Gravidarum Presentation: 10/28 00:37 Presenting complaint: Patient states: she has been vomiting since yesterday morning pt bb is . Transition of care: patient was not received from another setting of care. Onset of symptoms was October 27, 2018. Risk Assessment: Do you want to hurt yourself or someone else? Patient reports no desire to harm self or others. Initial Sepsis Screen: Does the patient meet any 2 criteria? No. Patient's initial sepsis screen is negative. Does the patient have a suspected source of infection? No. Patient's initial sepsis screen is negative. Care prior to arrival: None. 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 - Social history:: Smoking status: unknown. - Ebola Screening: : No symptoms or risks identified at this time. - Family history:: not pertinent. - Hospitalizations: : No recent hospitalization is reported. Screenin:39 Abuse screen: Denies threats or abuse. Nutritional screening: No deficits noted. ea Tuberculosis screening: No symptoms or risk factors identified. Fall Risk None identified. Assessment: 00:47 General: Appears in no apparent distress. uncomfortable, ill, Behavior is appropriate rr5 for age, crying. Pain: Complains of pain in abdomen Pain does not radiate. Pain currently is 7 out of 10 on a pain scale. Quality of pain is described as aching, Pain began gradually, Is intermittent. Neuro: Level of Consciousness is awake, alert, obeys commands, Oriented to person, place, time. Cardiovascular: Heart tones S1 S2 present. Respiratory: Airway is patent Respiratory effort is even, unlabored, Respiratory pattern is regular, symmetrical. GI: Abdomen is round Reports nausea, vomiting, since yesterday morning. : No signs and/or symptoms were reported regarding the genitourinary system. EENT: No signs and/or symptoms were reported regarding the EENT system. Derm: No signs and/or symptoms reported regarding the dermatologic system. Musculoskeletal: Capillary refill < 3 seconds, Range of motion: intact in all extremities. 01:59 Reassessment: Patient appears in no apparent distress at this time. complaining of rr5 abdominal pain stat medication given. 03:00 Reassessment: Patient appears in no apparent distress at this time. patient feels rr5 nauseated and vomited still IV fluid running . urine specimen sent. 04:51 Reassessment: Patient and/or family updated on plan of care and expected duration. Pain ea level reassessed. Pt resting with eyes closed, respirations even and unlabored. Chest expansions even and symmetrical. No s/s of pain or discomfort noted at this time. 05:50 Reassessment: Patient appears in no apparent distress at this time. discharge rr5 instruction and follow up explained with no complaints made. Vital Signs: 00:38 BP 127 / 91; Pulse 80; Resp 18; Temp 98.2; Pulse Ox 99% ; ea 02:02 BP 106 / 62; Pulse 81; Resp 17; Pulse Ox 98% ; rr5 03:00 BP 106 / 67; Pulse 70; Resp 18; Pulse Ox 99% on R/A; rr5 04:01 BP 114 / 61; Pulse 71; Resp 16; Pulse Ox 98% on R/A; rr5 05:00 BP 118 / 65; Pulse 70; Resp 18; Pulse Ox 98% on R/A; rr5 05:50 BP 112 / 75; Pulse 76; Resp 16; Pulse Ox 99% on R/A; rr5 ED Course: 00:26 Patient arrived in ED. am2 00:38 Triage completed. bb 00:38 Arm band placed on Patient placed in an exam room, on a stretcher, on pulse oximetry. bb Family accompanied patient. 00:39 Patient has correct armband on for positive identification. Bed in low position. Call ea light in reach. Side rails up X2. 00:45 Inserted saline lock: 20 gauge in right antecubital area, using aseptic technique. lp1 Blood collected. 00:47 Kenroy Chan RN is Primary Nurse. rr5 00:54 Marcelo Dhaliwal MD is Attending Physician. wa 05:50 No provider procedures requiring assistance completed. IV discontinued, intact, rr5 bleeding controlled, No redness/swelling at site. Pressure dressing applied. Administered Medications: 01:00 Drug: NS 0.9% 1000 ml Route: IV; Rate: 1 bolus; Site: right antecubital; rr5 01:00 Drug: Phenergan 12.5 mg Route: IVP; Site: right antecubital; rr5 01:50 Follow up: Response: No adverse reaction; Nausea is decreased ea 01:50 Drug: morphine 2 mg Route: IVP; Site: right antecubital; rr5 02:15 Follow up: Response: No adverse reaction; Pain is decreased ea 03:56 CANCELLED (Duplicate Order): Rocephin 1 grams IV at calculated rate once; Given slow IV ea push per pharmacy instructions 04:04 Drug: Rocephin - (cefTRIAXone) 1 grams Route: IVPB; Infused Over: 30 mins; Site: right ea antecubital; 04:34 Follow up: Response: No adverse reaction; IV Status: Completed infusion ea 04:04 Drug: NS 0.9% 1000 ml Route: IV; Rate: 1 bolus; Site: right antecubital; ea 05:50 Follow up: Response: No adverse reaction; IV Status: Completed infusion rr5 04:34 Drug: Phenergan 12.5 mg Route: IVP; Site: right antecubital; ea 05:50 Follow up: Response: No adverse reaction rr5 Outcome: 05:36 Discharge ordered by . wa 05:50 Discharged to home via wheelchair, with family. rr5 05:50 Condition: stable 05:50 Discharge instructions given to patient, family, Instructed on discharge instructions, follow up and referral plans. Demonstrated understanding of instructions, follow-up care. 06:02 Patient left the ED. rr5 Signatures: Mercy Saini RN RN bb Merna Aranda RN RN lp1 Sharlene Mello am2 Avis Madrid RN RN ea Appiah, William, MD MD wa Roque, Kenroy, ALFONZO RN rr5
--- NOTE | 2018-10-28 05:37 | EDPHYS ---
Physician Documentation [facility] Name: Suraj Fuentse Age: 28 yrs Sex: Female : 1990 Arrival Date: 10/28/2018 Time: 00:26 Bed 7 Private MD: ED Physician Marcelo Dhaliwal HPI: 10/28 02:23 This 28 yrs old Female presents to ER via Ambulatory with complaints of wa Vomiting. 02:23 The patient presents to the emergency department with nausea, vomiting, 5 times since wa the onset of symptoms. Onset: The symptoms/episode began/occurred yesterday. Possible causes: unknown, pt 28 weeks preg. The symptoms are aggravated by nothing. The symptoms are alleviated by nothing. Associated signs and symptoms: Pertinent positives: nausea, vomiting, Pertinent negatives: abdominal pain, constipation, diarrhea, dysuria, fever, vaginal discharge. Severity of symptoms: At their worst the symptoms were moderate in the emergency department the symptoms are unchanged. The patient has experienced similar episodes in the past, several times, during current . The patient has not recently seen a physician. ROLL WEIGHER: 00:42 3, Full Term 2, Premature 0, 0, Living 2, LMP 04/08/2018 ea Historical: - Allergies: 00:38 Ibuprofen; bb 00:38 ORANGES; bb - Home Meds: 00:38 Phenergan Supp Rectal [Active]; Vitamin Oral [Active]; Protonix Oral [Active]; bb Reglan Oral [Active]; Zofran Oral [Active]; - PMHx: 00:38 hyperemesis gravidarum; bb - Immunization history:: Adult Immunizations up to date. - Social history:: Smoking status: unknown. - Ebola Screening: : No symptoms or risks identified at this time. - Family history:: not pertinent. - Hospitalizations: : No recent hospitalization is reported. ROS: 02:26 Constitutional: Negative for fever, chills, and weight loss, Eyes: Negative for injury, wa pain, redness, and discharge, ENT: Negative for injury, pain, and discharge, Neck: Negative for injury, pain, and swelling, Cardiovascular: Negative for chest pain, palpitations, and edema, Respiratory: Negative for shortness of breath, cough, wheezing, and pleuritic chest pain, Back: Negative for injury and pain, : Negative for injury, bleeding, discharge, and swelling, MS/Extremity: Negative for injury and deformity, Skin: Negative for injury, rash, and discoloration, Neuro: Negative for headache, weakness, numbness, tingling, and seizure, Psych: Negative for depression, anxiety, suicide ideation, homicidal ideation, and hallucinations. 02:26 Abdomen/GI: Positive for abdominal pain, nausea and vomiting, Negative for diarrhea. 02:26 All other systems are negative. Exam: 02:26 Constitutional: This is a well developed, well nourished patient who is awake, alert, wa and in no acute distress. Head/Face: Normocephalic, atraumatic. Eyes: Pupils equal round and reactive to light, extra-ocular motions intact. Lids and lashes normal. Conjunctiva and sclera are non-icteric and not injected. Cornea within normal limits. Periorbital areas with no swelling, redness, or edema. ENT: Nares patent. No nasal discharge, no septal abnormalities noted. Tympanic membranes are normal and external auditory canals are clear. Oropharynx with no redness, swelling, or masses, exudates, or evidence of obstruction, uvula midline. Mucous membranes moist. Neck: Trachea midline, no thyromegaly or masses palpated, and no cervical lymphadenopathy. Supple, full range of motion without nuchal rigidity, or vertebral point tenderness. No Meningismus. Chest/axilla: Normal chest wall appearance and motion. Nontender with no deformity. No lesions are appreciated. Cardiovascular: Regular rate and rhythm with a normal S1 and S2. No gallops, murmurs, or rubs. Normal PMI, no JVD. No pulse deficits. Respiratory: Lungs have equal breath sounds bilaterally, clear to auscultation and percussion. No rales, rhonchi or wheezes noted. No increased work of breathing, no retractions or nasal flaring. Back: No spinal tenderness. No costovertebral tenderness. Full range of motion. Skin: Warm, dry with normal turgor. Normal color with no rashes, no lesions, and no evidence of cellulitis. MS/ Extremity: Pulses equal, no cyanosis. Neurovascular intact. Full, normal range of motion. Neuro: Awake and alert, GCS 15, oriented to person, place, time, and situation. Cranial nerves II-XII grossly intact. Motor strength 5/5 in all extremities. Sensory grossly intact. Cerebellar exam normal. Normal gait. Psych: Awake, alert, with orientation to person, place and time. Behavior, mood, and affect are within normal limits. 02:26 Abdomen/GI: Inspection: abdomen appears normal, Bowel sounds: normal, in all quadrants, Palpation: abdomen is soft and non-tender, in all quadrants. Vital Signs: 00:38 BP 127 / 91; Pulse 80; Resp 18; Temp 98.2; Pulse Ox 99% ; ea 02:02 BP 106 / 62; Pulse 81; Resp 17; Pulse Ox 98% ; rr5 03:00 BP 106 / 67; Pulse 70; Resp 18; Pulse Ox 99% on R/A; rr5 04:01 BP 114 / 61; Pulse 71; Resp 16; Pulse Ox 98% on R/A; rr5 05:00 BP 118 / 65; Pulse 70; Resp 18; Pulse Ox 98% on R/A; rr5 05:50 BP 112 / 75; Pulse 76; Resp 16; Pulse Ox 99% on R/A; rr5 MDM: 00:54 Patient medically screened. il 02:27 Differential diagnosis: gastritis, pancreatitis, r/o UTI. viral enteritis? hyperemesis. il Data reviewed: vital signs, nurses notes. 05:26 Test interpretation: by ED physician or midlevel provider: UA noted for ketones and wa nitrite positive. . Response to treatment: the patient's symptoms have markedly improved after treatment. ED course: IV abx given. improved prior to d/c. 10/28 00:55 Order name: Basic Metabolic Panel; Complete Time: :10/28 00:55 Order name: CBC with Diff; Complete Time: :10/28 00:55 Order name: Hepatic Function; Complete Time: :45 10/28 00:55 Order name: Lipase; Complete Time: :45 10/28 00:55 Order name: Urine Microscopic Only; Complete Time: 05:22 10/28 01:00 Order name: Flu; Complete Time: 02:22 10/28 03:54 Order name: Urine Culture 10/28 04:04 Order name: Urine Dipstick--Ancillary (enter results); Complete Time: 05:22 ms 10/28 04:04 Order name: Urine --Ancillary (enter results); Complete Time: 05:22 ms 10/28 00:55 Order name: IV Saline Lock; Complete Time: 00:57 wa 10/28 00:55 Order name: Labs collected and sent; Complete Time: 00:57 wa 10/28 00:55 Order name: Urine Dipstick-Ancillary (obtain specimen); Complete Time: 03:47 wa Administered Medications: 01:00 Drug: NS 0.9% 1000 ml Route: IV; Rate: 1 bolus; Site: right antecubital; rr5 01:00 Drug: Phenergan 12.5 mg Route: IVP; Site: right antecubital; rr5 01:50 Follow up: Response: No adverse reaction; Nausea is decreased ea 01:50 Drug: morphine 2 mg Route: IVP; Site: right antecubital; rr5 02:15 Follow up: Response: No adverse reaction; Pain is decreased ea 03:56 CANCELLED (Duplicate Order): Rocephin 1 grams IV at calculated rate once; Given slow IV ea push per pharmacy instructions 04:04 Drug: Rocephin - (cefTRIAXone) 1 grams Route: IVPB; Infused Over: 30 mins; Site: right ea antecubital; 04:34 Follow up: Response: No adverse reaction; IV Status: Completed infusion ea 04:04 Drug: NS 0.9% 1000 ml Route: IV; Rate: 1 bolus; Site: right antecubital; ea 05:50 Follow up: Response: No adverse reaction; IV Status: Completed infusion rr5 04:34 Drug: Phenergan 12.5 mg Route: IVP; Site: right antecubital; ea 05:50 Follow up: Response: No adverse reaction rr5 Disposition: 10/28/18 05:36 Discharged to Home. Impression: Acute Nausea and Vomiting, Hyperemesis Gravidarum. - Condition is Stable. - Discharge Instructions: Hyperemesis Gravidarum, Eating Plan for Hyperemesis Gravidarum, Nausea and Vomiting, Adult, [id number], Vomiting, Adult. - Medication Reconciliation Form, Thank You Letter, Antibiotic Education, Prescription Opioid Use form. - Follow up: Private Physician; When: 1 - 2 days; Reason: Recheck today's complaints. - Problem is new. - Symptoms have improved. Signatures: Dispatcher [employer] Mercy Kam RN RN Avis Huff RN RN Marcelo Hernandez MD MD wa Roque, Raymond, RN RN rr5 Corrections: (The following items were deleted from the chart) 03:56 03:55 Rocephin 1 grams IV at calculated rate once; Given slow IV push per pharmacy ea instructions ordered. ea 05:37 05:36 10/28/2018 05:36 Discharged to Home. Impression: Acute Nausea and Vomiting. il Condition is Stable. Forms are Medication Reconciliation Form, Thank You Letter, Antibiotic Education, Prescription Opioid Use. Follow up: Private Physician; When: 1 - 2 days; Reason: Recheck today's complaints. Problem is new. Symptoms have improved. il 06:02 05:37 10/28/2018 05:36 Discharged to Home. Impression: Acute Nausea and Vomiting; rr5 Hyperemesis Gravidarum. Condition is Stable. Discharge Instructions: Hyperemesis Gravidarum, Vomiting, Adult. Forms are Medication Reconciliation Form, Thank You Letter, Antibiotic Education, Prescription Opioid Use. Follow up: Private Physician; When: 1 - 2 days; Reason: Recheck today's complaints. Problem is new. Symptoms have improved. il
[2018-10-28 06:11] VITALS: TEMP 98.2
[2018-10-28 06:18] VITALS: BP 112/75; O2SAT 99
== END 2018-10-28 06:02 | disposition home or self-care (01) ==
LOC: ER 00:25
DX: O21.0 Mild hyperemesis gravidarum (principal); Z3A.28 28 weeks gestation of pregnancy
CPT/HCPCS: 36415; 80048; 80076; 81003; 81015; 81025; 83690; 85025; 87086; 87088; 87804; 96361; 96365; 96375; 99284; J0696; J2270; J2550; J7030

== ENCOUNTER 2018-10-29 19:42 | Emergency (ER) | payer MEDICAID ==
[2018-10-29] MEDS ORDERED: PROMETHAZINE 25 MG/SUPP PR ONE ×2 (23:06→23:34)
[2018-10-29] MEDS ORDERED: NA CHLORIDE 0.9% 1,000 ML ONE (23:06)
[2018-10-29 23:20] LABS: Absolute Lymphocytes (CBC) 1.6 K/uL (0.7-4.9); Absolute Monocytes 0.6 K/uL (0.1-1.3); Absolute Neutrophil 6.9 K/uL (1.8-8.0); Basophils % 0.3 % (0-1.3); Eosinophils % 0.6 % (0-4.4); Hematocrit 37.9 % (36.0-45.0); Lymphocytes % 17.1 % (15.3-44.8); MCH 30.8 pg (27.0-35.0); MCV 89.5 fL (80-100); MPV 8.1 fL (7.6-11.3); Monocytes % 6.6 % (3.3-12.3); RBC Red Blood Cell Count 4.24 M/uL (3.86-4.86)
[2018-10-29] MEDS ORDERED: ONDANSETRON 4 MG (ODT) TAB ONE (23:24)
[2018-10-29] MEDS ORDERED: DIPHENHYDRAMINE 25 MG TAB/CAP ONE (23:24)
[2018-10-29 23:37] LABS: ALT/SGPT 12 U/L (12-78); AST/SGOT 7 U/L (15-37); Albumin 2.8 g/dL (3.4-5.0); Alkaline Phosphatase 70 U/L (45-117); BUN Blood Urea Nitrogen 4 mg/dL (7-18); Bicarbonate 25 mmol/L (21-32); Bilirubin Direct 0.2 mg/dL (0-0.2); Bilirubin Total 0.6 mg/dL (0.2-1.0); Glucose Level 96 mg/dL (74-106); Lipase 59 U/L (73-393); Potassium 3.7 mmol/L (3.5-5.1); Sodium Level 140 mmol/L (136-145)
[2018-10-30] MEDS ORDERED: NA CHLORIDE 0.9% 1,000 ML ONE (00:57)
[2018-10-30] MEDS ORDERED: ONDANSETRON 4 MG/2 ML VIAL ONE (00:57)
[2018-10-30] MEDS ORDERED: FAMOTIDINE 20 MG/2 ML VIAL IV ONE (00:57)
--- NOTE | 2018-10-30 01:48 | ER ---
Nurse's Notes [facility] Name: Suraj Fuentes Age: 28 yrs Sex: Female : 1990 Arrival Date: 10/29/2018 Time: 19:43 Bed 19 Private MD: Diagnosis: Vomiting of , unspecified Presentation: 10/29 22:02 Presenting complaint: Patient states: Vomiting and low back pain since yesterday. aj Patient was evaluated by [employer] and give Rocephin 1 gm IM. Transition of care: patient was not received from another setting of care. Onset of symptoms was October 28, 2018. Risk Assessment: Do you want to hurt yourself or someone else? Patient reports no desire to harm self or others. Initial Sepsis Screen: Does the patient meet any 2 criteria? No. Patient's initial sepsis screen is negative. Does the patient have a suspected source of infection? No. Patient's initial sepsis screen is negative. Care prior to arrival: None. 22:02 Method Of Arrival: Wheelchair aj 22:02 Acuity: SHAW 3 aj Triage Assessment: 22:04 General: Appears in no apparent distress. comfortable, Behavior is calm, cooperative, aj appropriate for age. Pain: Complains of pain in low back area. Neuro: Level of Consciousness is awake, alert, obeys commands, Oriented to person, place, time, situation, Appropriate for age. Respiratory: Airway is patent Respiratory effort is even, unlabored, Respiratory pattern is regular, symmetrical. GI: Reports nausea, vomiting. Derm: Skin is intact, is healthy with good turgor, Skin is pink, warm \T\ dry. normal. Historical: - Allergies: 22:04 ORANGES; aj 22:04 Ibuprofen; aj - Home Meds: 22:04 Phenergan Supp Rectal [Active]; Vitamin Oral [Active]; Protonix Oral [Active]; aj Reglan Oral [Active]; Zofran Oral [Active]; - PMHx: 22:04 hyperemesis gravidarum; aj - Immunization history:: Adult Immunizations up to date. - Social history:: Smoking status: Patient/guardian denies using tobacco. - Ebola Screening: : Patient negative for fever greater than or equal to 101.5 degrees Fahrenheit, and additional compatible Ebola Virus Disease symptoms Patient denies exposure to infectious person Patient denies travel to an Ebola-affected area in the 21 days before illness onset No symptoms or risks identified at this time. Screenin:30 Abuse screen: Denies threats or abuse. Denies injuries from another. Nutritional aa1 screening: No deficits noted. Tuberculosis screening: No symptoms or risk factors identified. Fall Risk None identified. Assessment: 22:30 General: Appears in no apparent distress. comfortable, Behavior is appropriate for age, aa1 restless. Pain: Complains of pain in low back area Quality of pain is described as crampy. Neuro: Level of Consciousness is awake, alert, obeys commands, Oriented to person, place, time, situation, Moves all extremities. Speech is normal. Respiratory: Airway is patent Respiratory effort is even, unlabored, Respiratory pattern is regular, symmetrical. GI: Reports nausea, vomiting. : Reports pain in lower back. EENT: No signs and/or symptoms were reported regarding the EENT system. Derm: Skin is intact, is healthy with good turgor, Skin is pink, warm \T\ dry. Musculoskeletal: Circulation, motion, and sensation intact. Capillary refill < 3 seconds. 23:35 Reassessment: Patient appears in no apparent distress at this time. Patient and/or aa1 family updated on plan of care and expected duration. Pain level reassessed. Patient is alert, oriented x 3, equal unlabored respirations, skin warm/dry/pink. Awaiting lab results. 12 01:03 Reassessment: Patient appears in no apparent distress at this time. Patient and/or aa1 family updated on plan of care and expected duration. Pain level reassessed. Patient is alert, oriented x 3, equal unlabored respirations, skin warm/dry/pink. 2nd liter bolus NS infusing at this time. 02:05 Reassessment: Patient appears in no apparent distress at this time. Patient is alert, aa1 oriented x 3, equal unlabored respirations, skin warm/dry/pink. Pt remains nauseated however vomiting has decreased. Discussed d/c \T\ f/u instructions with pt; denies questions or concerns at this time Patient states symptoms have improved. Vital Signs: 10/29 22:04 BP 124 / 69; Pulse 95; Resp 18; Temp 97.6; Pulse Ox 98% on R/A; Weight 73.48 kg; Height aj 5 ft. 2 in. (157.48 cm); 10/30 00:11 BP 124 / 64; Pulse 81; Resp 18; Pulse Ox 99% on R/A; aa 01:36 BP 114 / 68; Pulse 96; Resp 18; Pulse Ox 99% on R/A; aa1 10/29 22:04 Body Mass Index 29.63 (73.48 kg, 157.48 cm) ED Course: 10/29 19:43 Patient arrived in ED. es 22:03 Triage completed. aj 22:04 Arm band placed on left wrist. Patient placed in an exam room. aj 22:24 Pancho Pryor PA is PHCP. cp 22:24 Doug Mendiola MD is Attending Physician. cp 22:30 Patient has correct armband on for positive identification. Bed in low position. Call aa1 light in reach. Pulse ox on. NIBP on. Warm blanket given. 22:56 Megan Gonzalez RN is Primary Nurse. aa1 23:00 Initial lab(s) drawn, by wa, sent to lab. Inserted saline lock: 20 gauge in right aa1 antecubital area, using aseptic technique. Blood collected. 10/30 02:05 No provider procedures requiring assistance completed. IV discontinued, intact, aa1 bleeding controlled, No redness/swelling at site. Pressure dressing applied. Administered Medications: 10/29 23:11 Drug: NS 0.9% 1000 ml Route: IV; Rate: 1 bolus; Site: right antecubital; aa1 10/30 00:59 Follow up: IV Status: Completed infusion aa1 10/29 23:33 Drug: Phenergan Suppository 50 mg Route: DC; aa1 10/30 00:30 Follow up: Response: No adverse reaction; Nausea unchanged aa10/29 23:33 CANCELLED (Other Intervention Used): Zofran 4 mg PO once aa 23:33 CANCELLED (Other Intervention Used): Benadryl 25 mg PO once aa10/30 00:58 Drug: Zofran 4 mg Route: IVP; Site: right antecubital; aa1 02:08 Follow up: Response: Vomiting decreased aa 00:58 Drug: Pepcid 20 mg Route: IVP; Site: right antecubital; aa1 02:08 Follow up: Response: No adverse reaction; Vomiting decreased aa1 00:59 Drug: NS 0.9% 1000 ml Route: IV; Rate: 1 bolus; Site: right antecubital; aa1 02:08 Follow up: IV Status: Completed infusion aa1 Outcome: 01:47 Discharge ordered by . cp 02:05 Discharged to home ambulatory, with family. aa1 02:05 Condition: good 02:05 Discharge instructions given to patient, family, Instructed on discharge instructions, follow up and referral plans. medication usage, Demonstrated understanding of instructions, follow-up care, medications, Prescriptions given X 3. 02:09 Patient left the ED. aa1 Signatures: Megan Gonzalez RN RN aa1 Sharlene Fuentes RN RN aj Salyer, Edna es Page, Corey, PA PA cp
--- NOTE | 2018-10-30 01:48 | EDPHYS ---
Physician Documentation [facility] Name: Suraj Fuentes Age: 28 yrs Sex: Female : 1990 Arrival Date: 10/29/2018 Time: 19:43 Bed 19 Private MD: ED Physician Doug Mendiola HPI: 10/29 22:40 This 28 yrs old Female presents to ER via Wheelchair with complaints of cp Vomiting, UTI,KIDNEY PAIN. 22:40 The patient presents to the emergency department with nausea, with "dry heaves", cp vomiting, that is intermittent. 22:40 Onset: The symptoms/episode began/occurred today. cp 22:40 Possible causes: , UTI. Associated signs and symptoms: Pertinent positives: cp low back pain, Pertinent negatives: fever, vaginal discharge, vaginal bleeding. Severity of symptoms: in the emergency department the symptoms are unchanged. Historical: - Allergies: 22:04 ORANGES; aj 22:04 Ibuprofen; aj - Home Meds: 22:04 Phenergan Supp Rectal [Active]; Vitamin Oral [Active]; Protonix Oral [Active]; aj Reglan Oral [Active]; Zofran Oral [Active]; - PMHx: 22:04 hyperemesis gravidarum; aj - Immunization history:: Adult Immunizations up to date. - Social history:: Smoking status: Patient/guardian denies using tobacco. - Ebola Screening: : Patient negative for fever greater than or equal to 101.5 degrees Fahrenheit, and additional compatible Ebola Virus Disease symptoms Patient denies exposure to infectious person Patient denies travel to an Ebola-affected area in the 21 days before illness onset No symptoms or risks identified at this time. ROS: 23:00 Constitutional: Negative for body aches, chills, fever, poor PO intake. cp 23:00 Eyes: Negative for injury, pain, redness, and discharge. cp 23:00 ENT: Negative for drainage from ear(s), ear pain, rhinorrhea, sore throat, difficulty swallowing, difficulty handling secretions. 23:00 Cardiovascular: Negative for chest pain. 23:00 Respiratory: Negative for cough, wheezing. 23:00 Abdomen/GI: Positive for nausea, vomiting, Negative for diarrhea, constipation, black/tarry stool, rectal bleeding. 23:00 Back: Positive for pain at rest, pain with movement, of the low back area, Negative for decreased range of motion. 23:00 : Negative for vaginal bleeding, vaginal discharge. 23:00 Skin: Negative for cellulitis, rash. 23:00 Neuro: Negative for altered mental status, headache, weakness. 23:00 All other systems are negative. Exam: 23:10 Constitutional: The patient appears in no acute distress, alert, awake, non-toxic, well cp developed, well nourished, uncomfortable. 23:10 Head/Face: Normocephalic, atraumatic. cp 23:10 Eyes: Periorbital structures: appear normal, Pupils: equal, round, and reactive to light and accomodation, Conjunctiva: normal, no exudate, no injection, Sclera: no appreciated abnormality, Lids and lashes: appear normal, bilaterally. 23:10 ENT: External ear(s): are unremarkable, Nose: is normal, Mouth: is normal, Posterior pharynx: is normal, airway is patent, no erythema, no exudate. 23:10 Chest/axilla: Inspection: normal, Palpation: is normal, no crepitus, no tenderness. 23:10 Cardiovascular: Rate: normal, Rhythm: regular. 23:10 Respiratory: the patient does not display signs of respiratory distress, Respirations: normal, no use of accessory muscles, no retractions, no splinting, no tachypnea, labored breathing, is not present, Breath sounds: are clear throughout, no decreased breath sounds, no stridor, no wheezing. 23:10 Abdomen/GI: Inspection: gravid appearance, is noted, Bowel sounds: active, all quadrants, Palpation: soft, in all quadrants, mild abdominal tenderness, in all quadrants, rebound tenderness, is not appreciated, voluntary guarding, is not appreciated, involuntary guarding, is not appreciated. 23:10 Back: CVA tenderness, is absent. 23:10 Skin: cellulitis, is not appreciated, no rash present. 23:10 Neuro: Orientation: is normal, Mentation: is normal, Cerebellar function: is grossly normal, Motor: moves all fours, strength is normal, Sensation: is normal. Vital Signs: 22:04 BP 124 / 69; Pulse 95; Resp 18; Temp 97.6; Pulse Ox 98% on R/A; Weight 73.48 kg; Height aj 5 ft. 2 in. (157.48 cm); 10/30 00:11 BP 124 / 64; Pulse 81; Resp 18; Pulse Ox 99% on R/A; aa1 01:36 BP 114 / 68; Pulse 96; Resp 18; Pulse Ox 99% on R/A; aa1 10/29 22:04 Body Mass Index 29.63 (73.48 kg, 157.48 cm) aj MDM: 10/29 22:24 Patient medically screened. cp 23:00 Differential diagnosis: gastritis, viral gastroenteritis, gastroenteritis, dehydration, cp electrolyte abnormality. 10/30 01:45 Data reviewed: vital signs, nurses notes, lab test result(s). cp 01:45 Counseling: I had a detailed discussion with the patient and/or guardian regarding: the cp historical points, exam findings, and any diagnostic results supporting the discharge/admit diagnosis, lab results, the need for outpatient follow up, an OB/Gyne specialist, to return to the emergency department if symptoms worsen or persist or if there are any questions or concerns that arise at home. Response to treatment: the patient's symptoms have markedly improved after treatment, VSS. Nausea improved and vomiting resolved. Will discharge to home for continued monitoring. 10/29 22:39 Order name: Basic Metabolic Panel 10/29 22:39 Order name: CBC with Diff cp 10/29 22:39 Order name: Creatinine for Radiology 10/29 22:39 Order name: Hepatic Function cp 10/29 22:39 Order name: Lipase cp 10/29 23:23 Order name: CBC with Automated Diff; Complete Time: 00:02 EDMS 10/30 00:02 Interpretation: Reviewed. 10/29 23:38 Order name: Basic Metabolic Panel; Complete Time: 00:02 EDMS 10/30 00:02 Interpretation: Normal except: CL 108; BUN 4. cp 10/29 23:38 Order name: Liver (Hepatic) Function; Complete Time: 00:02 EDMS 10/30 00:03 Interpretation: Normal except: AST 7; ALB 2.8; GLOB 4.2; A/G 0.7. cp 10/29 23:38 Order name: Lipase; Complete Time: 00:02 EDMS 10/30 00:03 Interpretation: LIP 59; Reviewed. 10/29 22:39 Order name: IV Saline Lock; Complete Time: 23:33 cp 10/29 22:39 Order name: Labs collected and sent; Complete Time: 23:33 cp 10/29 22:39 Order name: FHT's; Complete Time: 23:33 cp 10/30 01:28 Order name: PO challenge cp Administered Medications: 10/29 23:11 Drug: NS 0.9% 1000 ml Route: IV; Rate: 1 bolus; Site: right antecubital; aa1 10/30 00:59 Follow up: IV Status: Completed infusion aa1 10/29 23:33 Drug: Phenergan Suppository 50 mg Route: MI; aa1 10/30 00:30 Follow up: Response: No adverse reaction; Nausea unchanged aa1 10/29 23:33 CANCELLED (Other Intervention Used): Zofran 4 mg PO once aa 23:33 CANCELLED (Other Intervention Used): Benadryl 25 mg PO once aa1 10/30 00:58 Drug: Zofran 4 mg Route: IVP; Site: right antecubital; aa1 02:08 Follow up: Response: Vomiting decreased aa 00:58 Drug: Pepcid 20 mg Route: IVP; Site: right antecubital; aa1 02:08 Follow up: Response: No adverse reaction; Vomiting decreased aa 00:59 Drug: NS 0.9% 1000 ml Route: IV; Rate: 1 bolus; Site: right antecubital; aa1 02:08 Follow up: IV Status: Completed infusion aa1 Disposition: 19:15 Co-signature as Attending Physician, Doug Mendiola MD. Disposition: 10/30/18 01:47 Discharged to Home. Impression: Vomiting of , unspecified. - Condition is Stable. - Discharge Instructions: Nausea and Vomiting, Adult, Second Trimester of , [id number]. - Prescriptions for Phenergan 25 mg Rectal Suppository - insert 1 suppository by RECTAL route every 6 hours As needed; 12 suppository. promethazine 25 mg Oral Tablet - take 1 tablet by ORAL route every 6 hours As needed; 20 tablet. Macrobid 100 mg Oral Capsule - take 1 capsule by ORAL route every 12 hours for 7 days; 14 capsule. - Medication Reconciliation Form, Thank You Letter, Antibiotic Education, Prescription Opioid Use form. - Follow up: Private Physician; When: Tomorrow; Reason: Recheck today's complaints. - Problem is an ongoing problem. - Symptoms have improved. Signatures: Dispatcher [employer] Megan Torres RN RN aa1 Sharlene Fuentes RN RN Pancho Penny, LISANDRA PA cp Doug Mendiola MD MD gs Corrections: (The following items were deleted from the chart) 10/29 23:33 23:14 Zofran 4 mg PO once ordered. cp aa1 23:33 23:14 Benadryl 25 mg PO once ordered. cp aa1 10/30 02:09 01:47 10/30/2018 01:47 Discharged to Home. Impression: Vomiting of , aa1 unspecified. Condition is Stable. Forms are Medication Reconciliation Form, Thank You Letter, Antibiotic Education, Prescription Opioid Use. Follow up: Private Physician; When: Tomorrow; Reason: Recheck today's complaints. Problem is an ongoing problem. Symptoms have improved. cp
[2018-10-30 02:18] VITALS: TEMP 97.6
[2018-10-30 02:19] VITALS: O2SAT 99
[2018-10-30 02:20] VITALS: BP 114/68
== END 2018-10-30 02:09 | disposition home or self-care (01) ==
LOC: ER 19:42
DX: O21.9 Vomiting of pregnancy, unspecified (principal); Z3A.00 Weeks of gestation of pregnancy not specified; Z91.018 Allergy to other foods; Z88.6 Allergy status to analgesic agent
CPT/HCPCS: 36415; 80048; 80076; 83690; 85025; 96361; 96374; 96375; 99284; J2405; J7030

== ENCOUNTER 2018-11-03 23:09 | Observation (INO) | payer MEDICAID ==
[2018-11-03] MEDS ORDERED: ONDANSETRON 4 MG/2 ML VIAL ONE (23:47)
[2018-11-03] MEDS ORDERED: NA CHLORIDE 0.9% 1,000 ML ONE (23:47)
[2018-11-03 23:50] LABS: Absolute Lymphocytes (CBC) 1.9 K/uL (0.7-4.9); Absolute Monocytes 0.7 K/uL (0.1-1.3); Absolute Neutrophil 8.1 K/uL (1.8-8.0); Basophils % 0.5 % (0-1.3); Eosinophils % 0.4 % (0-4.4); Hematocrit 38.6 % (36.0-45.0); Lymphocytes % 17.5 % (15.3-44.8); MCH 30.9 pg (27.0-35.0); MCV 88.2 fL (80-100); MPV 8.7 fL (7.6-11.3); Monocytes % 6.4 % (3.3-12.3); RBC Red Blood Cell Count 4.38 M/uL (3.86-4.86)
[2018-11-03 23:59] LABS: ALT/SGPT 13 U/L (12-78); AST/SGOT 12 U/L (15-37); Albumin 2.9 g/dL (3.4-5.0); Alkaline Phosphatase 69 U/L (45-117); BUN Blood Urea Nitrogen 4 mg/dL (7-18); Bicarbonate 24 mmol/L (21-32); Bilirubin Direct 0.2 mg/dL (0-0.2); Bilirubin Total 0.7 mg/dL (0.2-1.0); Glucose Level 93 mg/dL (74-106); Lipase 69 U/L (73-393); Potassium 3.9 mmol/L (3.5-5.1); Sodium Level 138 mmol/L (136-145)
[2018-11-04] MEDS ORDERED: NA CHLORIDE 0.9% 1,000 ML ONE (00:15)
[2018-11-04] MEDS ORDERED: ONDANSETRON 4 MG/2 ML VIAL ONE (00:15)
[2018-11-04] MEDS ORDERED: MAGNES/ALUMIN/SIMET 30ML UCUP ONE (01:04)
[2018-11-04] MEDS ORDERED: CEFTRIAXONE/SWI 1gm 1 GM/10 ML SYR ONE (01:29)
--- NOTE | 2018-11-04 01:30 | EDPHYS ---
Physician Documentation [facility] Name: Suraj Fuentes Age: 28 yrs Sex: Female : 1990 Arrival Date: 11/03/2018 Time: 23:10 Bed 6 Private MD: ED Physician Pancho Greene HPI: 11/04 00:05 This 28 yrs old Female presents to ER via Wheelchair with complaints of jessica Vomiting. 00:05 The patient presents to the emergency department with nausea, vomiting, that is jessica continuous. Onset: The symptoms/episode began/occurred this morning. Possible causes: unknown. The symptoms are aggravated by nothing. The symptoms are alleviated by nothing. Associated signs and symptoms: The patient has no apparent associated signs or symptoms. Severity of symptoms: At their worst the symptoms were mild in the emergency department the symptoms are unchanged. The patient has experienced similar episodes in the past, a few times. 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 - Social history:: Smoking status: Patient/guardian denies using tobacco. - Ebola Screening: : No symptoms or risks identified at this time. ROS: 11/04 00:06 Constitutional: Negative for fever, chills, and weight loss, Eyes: Negative for injury, jesisca pain, redness, and discharge, ENT: Negative for injury, pain, and discharge, Neck: Negative for injury, pain, and swelling, Cardiovascular: Negative for chest pain, palpitations, and edema, Respiratory: Negative for shortness of breath, cough, wheezing, and pleuritic chest pain, Back: Negative for injury and pain, : Negative for injury, bleeding, discharge, and swelling, MS/Extremity: Negative for injury and deformity, Skin: Negative for injury, rash, and discoloration, Neuro: Negative for headache, weakness, numbness, tingling, and seizure, Psych: Negative for depression, anxiety, suicide ideation, homicidal ideation, and hallucinations, Allergy/Immunology: Negative for hives, rash, and allergies, Endocrine: Negative for neck swelling, polydipsia, polyuria, polyphagia, and marked weight changes, Hematologic/Lymphatic: Negative for swollen nodes, abnormal bleeding, and unusual bruising. Abdomen/GI: Positive for abdominal pain, nausea, vomiting, of the epigastric area. Exam: 00:06 Constitutional: This is a well developed, well nourished patient who is awake, alert, jessica and in no acute distress. Head/Face: Normocephalic, atraumatic. Eyes: Pupils equal round and reactive to light, extra-ocular motions intact. Lids and lashes normal. Conjunctiva and sclera are non-icteric and not injected. Cornea within normal limits. Periorbital areas with no swelling, redness, or edema. ENT: Nares patent. No nasal discharge, no septal abnormalities noted. Tympanic membranes are normal and external auditory canals are clear. Oropharynx with no redness, swelling, or masses, exudates, or evidence of obstruction, uvula midline. Mucous membranes moist. Neck: Trachea midline, no thyromegaly or masses palpated, and no cervical lymphadenopathy. Supple, full range of motion without nuchal rigidity, or vertebral point tenderness. No Meningismus. Chest/axilla: Normal chest wall appearance and motion. Nontender with no deformity. No lesions are appreciated. Cardiovascular: Regular rate and rhythm with a normal S1 and S2. No gallops, murmurs, or rubs. Normal PMI, no JVD. No pulse deficits. Respiratory: Lungs have equal breath sounds bilaterally, clear to auscultation and percussion. No rales, rhonchi or wheezes noted. No increased work of breathing, no retractions or nasal flaring. Back: No spinal tenderness. No costovertebral tenderness. Full range of motion. Female : Normal external genitalia. Skin: Warm, dry with normal turgor. Normal color with no rashes, no lesions, and no evidence of cellulitis. MS/ Extremity: Pulses equal, no cyanosis. Neurovascular intact. Full, normal range of motion. Neuro: Awake and alert, GCS 15, oriented to person, place, time, and situation. Cranial nerves II-XII grossly intact. Motor strength 5/5 in all extremities. Sensory grossly intact. Cerebellar exam normal. Normal gait. 00:06 Abdomen/GI: Inspection: gravid appearance, Bowel sounds: normal, Palpation: abdomen is soft and non-tender, Liver: no appreciated palpable abnormalities, Hernia: not appreciated. 01:26 Abdomen/GI: no ctx, no lof, no vag bleeding. [facility] Vital Signs: 01:25 BP 132 / 84; Pulse 104; Resp 18; Pulse Ox 98% on R/A; tl2 MDM: 11/03 23:15 Patient medically screened. [facility] 11/04 00:07 Data reviewed: vital signs, nurses notes, lab test result(s). [facility] 11/03 23:18 Order name: Basic Metabolic Panel; Complete Time: 00:05 [facility] 11/03 23:18 Order name: CBC with Diff; Complete Time: 00:00 [facility] 11/03 23:18 Order name: Creatinine for Radiology; Complete Time: 00:55 [facility] 11/03 23:18 Order name: Hepatic Function; Complete Time: 00:05 [facility] 11/03 23:18 Order name: Lipase; Complete Time: 00:05 [facility] 11/03 23:18 Order name: Urine Culture [facility] 11/04 01:07 Order name: Urine Dipstick--Ancillary (enter results) [facility] 11/04 01:07 Order name: Urine --Ancillary (enter results) [facility] 11/04 01:40 Order name: Basic Metabolic Panel [facility] 11/04 01:40 Order name: Basic Metabolic Panel [facility] 11/04 01:40 Order name: CBC with Automated Diff [facility] 11/04 01:40 Order name: CBC with Automated Diff [facility] 11/04 01:40 Order name: Lipase [facility] 11/04 01:40 Order name: Lipase [facility] 11/03 23:18 Order name: IV Saline Lock; Complete Time: 23:34 [facility] 11/03 23:18 Order name: Labs collected and sent; Complete Time: 23:49 [facility] 11/03 23:18 Order name: FHT's; Complete Time: 23:45 [facility] 11/03 23:18 Order name: Urine Dipstick-Ancillary (obtain specimen); Complete Time: 01:04 [facility] 11/04 01:23 Order name: Vital Signs; Complete Time: 01:24 [facility] 11/04 01:40 Order name: NPO [facility] 11/04 01:40 Order name: Liver (Hepatic) Function [facility] 11/04 01:40 Order name: Liver (Hepatic) Function EDMS Administered Medications: 11/03 23:44 Drug: NS 0.9% 1000 ml Route: IV; Rate: 1 bolus; Site: right antecubital; ea 11/04 02:57 Follow up: IV Status: Completed infusion; IV Intake: 1000ml tl2 11/03 23:44 Drug: Zofran 4 mg Route: IVP; Site: right antecubital; ea 11/04 00:10 Follow up: Response: No adverse reaction; Nausea unchanged tl2 00:09 Drug: Zofran 4 mg Route: IVP; Site: right antecubital; tl2 01:00 Follow up: Response: No adverse reaction; Vomiting unchanged tl2 00:09 Drug: NS 0.9% 1000 ml Route: IV; Rate: 1 bolus; Site: right antecubital; tl2 02:58 Follow up: IV Status: Completed infusion; IV Intake: 1000ml tl2 00:58 Drug: Maalox Suspension (200 mg-200 mg-20 mg/5 mL) 30 ml Route: PO; kr2 01:38 Follow up: Response: No adverse reaction tl2 01:16 Drug: NS 0.9% 1000 ml Route: IV; Rate: 125 ml/hr; Site: right antecubital; tl2 02:57 Follow up: IV Status: Infusion continued upon admission tl2 01:24 Drug: Rocephin - (cefTRIAXone) 1 grams Route: IVPB; Infused Over: 30 mins; Site: right tl2 antecubital; 02:00 Follow up: IV Status: Completed infusion tl2 01:38 Drug: Phenergan 12.5 mg Route: IVP; Site: right antecubital; tl2 02:10 Follow up: Response: No adverse reaction; Nausea is decreased tl2 Disposition: 11/04/18 01:29 Hospitalization ordered by Michael Carson for Observation. Preliminary diagnosis are related conditions, unspecified, third trimester, Vomiting, Volume depletion. - Bed [facility] for [facility]. - Status is Observation. tl2 - Condition is Stable. - Problem is new. - Symptoms have improved. UTI on Admission? No Signatures: Dispatcher [employer] EDPA Saida Evans RN RN mw Anderson, Corey, MD MD cha Knox, Taylor, RN RN tl2 Avsi Madrid RN Bushra Rosario ea, RN RN kr2 Kristen Griffin mw2 Corrections: (The following items were deleted from the chart) 01:29 Hospitalization Ordered by Michael Carson MD for Observation. Preliminary jessica diagnosis is related conditions, unspecified, third trimester; Vomiting. Bed requested for Telemetry/MedSurg (observation). Status is Observation. Condition is Stable. Problem is new. Symptoms have improved. UTI on Admission? No. jessica 01:29 01:29 11/04/2018 01:29 Hospitalization Ordered by Michael Carson MD for Observation. jessica Preliminary diagnosis is related conditions, unspecified, third trimester; Vomiting; Volume depletion. Bed requested for Telemetry/MedSurg (observation). Status is Observation. Condition is Stable. Problem is new. Symptoms have improved. UTI on Admission? No. jessica 01:44 01:29 11/04/2018 01:29 Hospitalization Ordered by Michael Carson MD for Observation. mw Preliminary diagnosis is related conditions, unspecified, third trimester; Vomiting; Volume depletion. Bed requested for [facility]. Status is Observation. Condition is Stable. Problem is new. Symptoms have improved. UTI on Admission? No. jessica 02:09 01:44 11/04/2018 01:29 Hospitalization Ordered by Michael Carson MD for Observation. mw2 Preliminary diagnosis is related conditions, unspecified, third trimester; Vomiting; Volume depletion. Bed requested for [facility]. Status is Observation. Condition is Stable. Problem is new. Symptoms have improved. UTI on Admission? No. mw 02:59 02:09 11/04/2018 01:29 Hospitalization Ordered by Michael Carson MD for Observation. tl2 Preliminary diagnosis is related conditions, unspecified, third trimester; Vomiting; Volume depletion. Bed requested for [facility]. Status is Observation. Condition is Stable. Problem is new. Symptoms have improved. UTI on Admission? No. mw2
--- NOTE | 2018-11-04 01:30 | ER ---
Nurse's Notes [facility] Name: Suraj Fuentes Age: 28 yrs Sex: Female : 1990 Arrival Date: 11/03/2018 Time: 23:10 Bed 6 Private MD: Diagnosis: related conditions, unspecified, third trimester;Vomiting;Volume depletion Presentation: 11/03 23:40 Presenting complaint: Patient states: Reports she has been having nausea and vomiting ea all day, pt reports she has hyperemesis. Transition of care: patient was not received from another setting of care. Onset of symptoms was November 03, 2018. Risk Assessment: Do you want to hurt yourself or someone else? Patient reports no desire to harm self or others. Initial Sepsis Screen: Does the patient meet any 2 criteria? No. Patient's initial sepsis screen is negative. Does the patient have a suspected source of infection? No. Patient's initial sepsis screen is negative. Care prior to arrival: None. 23:40 Method Of Arrival: Wheelchair ea 23:40 Acuity: SHAW 4 ea Triage Assessment: 11/04 02:01 General: Appears uncomfortable, Behavior is. Pain: Complains of pain in epigastric ak1 area. EENT: No signs and/or symptoms were reported regarding the EENT system. Neuro: No deficits noted. Cardiovascular: No deficits noted. Respiratory: No deficits noted. GI: Reports upper abdominal pain, nausea, vomiting. : No signs and/or symptoms were reported regarding the genitourinary system. Derm: No signs and/or symptoms reported regarding the dermatologic system. Musculoskeletal: No signs and/or symptoms reported regarding the musculoskeletal system. 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 - Social history:: Smoking status: Patient/guardian denies using tobacco. - Ebola Screening: : No symptoms or risks identified at this time. Screenin:46 Abuse screen: Denies threats or abuse. Nutritional screening: No deficits noted. ea Tuberculosis screening: No symptoms or risk factors identified. Fall Risk None identified. Assessment: 11/04 02:03 GI: Abdomen is round. ak1 02:54 Reassessment: Patient appears in no apparent distress at this time. Pt stable and ready tl2 for transport to floor. Vital Signs: 01:25 BP 132 / 84; Pulse 104; Resp 18; Pulse Ox 98% on R/A; tl2 Vitals: 11/03 23:46 Heart Tones 157. ea ED Course: 23:10 Patient arrived in ED. ag3 23:15 Pancho Greene MD is Attending Physician. jessica 23:34 Avis Madrid RN is Primary Nurse. ea 23:40 Inserted saline lock: 20 gauge in right antecubital area, using aseptic technique. ea Blood collected. 23:47 Patient has correct armband on for positive identification. Bed in low position. Call ea light in reach. Side rails up X2. 23:47 Arm band placed on right wrist. Patient placed in an exam room, on a stretcher. ea 23:52 Triage completed. ea 11/04 01:04 Urine collected: clean catch specimen, ham colored. kr2 01:28 Michael Carson MD is Hospitalizing Provider. [facility] 02:02 No provider procedures requiring assistance completed. Patient admitted, IV remains in ak1 place. Administered Medications: 11/03 23:44 Drug: NS 0.9% 1000 ml Route: IV; Rate: 1 bolus; Site: right antecubital; ea 11/04 02:57 Follow up: IV Status: Completed infusion; IV Intake: 1000ml tl2 11/03 23:44 Drug: Zofran 4 mg Route: IVP; Site: right antecubital; ea 11/04 00:10 Follow up: Response: No adverse reaction; Nausea unchanged tl2 00:09 Drug: Zofran 4 mg Route: IVP; Site: right antecubital; tl2 01:00 Follow up: Response: No adverse reaction; Vomiting unchanged tl2 00:09 Drug: NS 0.9% 1000 ml Route: IV; Rate: 1 bolus; Site: right antecubital; tl2 02:58 Follow up: IV Status: Completed infusion; IV Intake: 1000ml tl2 00:58 Drug: Maalox Suspension (200 mg-200 mg-20 mg/5 mL) 30 ml Route: PO; kr2 01:38 Follow up: Response: No adverse reaction tl2 01:16 Drug: NS 0.9% 1000 ml Route: IV; Rate: 125 ml/hr; Site: right antecubital; tl2 02:57 Follow up: IV Status: Infusion continued upon admission tl2 01:24 Drug: Rocephin - (cefTRIAXone) 1 grams Route: IVPB; Infused Over: 30 mins; Site: right tl2 antecubital; 02:00 Follow up: IV Status: Completed infusion tl2 01:38 Drug: Phenergan 12.5 mg Route: IVP; Site: right antecubital; tl2 02:10 Follow up: Response: No adverse reaction; Nausea is decreased tl2 Intake: 02:57 IV: 1000ml; Total: 1000ml. tl2 02:58 IV: 1000ml; Total: 2000ml. tl2 Outcome: 01:29 Decision to Hospitalize by Provider. jessica 02:03 Admitted to L \T\ D, accompanied by tech, family with patient, via wheelchair, room 279, ak1 with chart, Report called to Gilma 02:03 Condition: stable 02:03 Instructed on the need for admit. 02:59 Patient left the ED. tl2 Signatures: Pancho Greene MD MD cha Krenek, Amber RN RN ak1 Roxy Herring RN RN tl2 Avis Madrid RN RN ea Reaves, Karey, RN RN 2 Alejandrina Benítez
[2018-11-04] MEDS ORDERED: ACETAMINOPHEN 500 MG TAB PO PRN (01:36)
[2018-11-04] MEDS ORDERED: PROMETHAZINE 25 MG/ML VIAL IV PRN (01:36)
[2018-11-04] MEDS ORDERED: ONDANSETRON 4 MG/2 ML VIAL IV PRN (01:36)
[2018-11-04] MEDS ORDERED: PROMETHAZINE 25 MG/ML VIAL ONE (01:39)
[2018-11-04] MEDS ORDERED: D5 0.45 NS 1,000 ML IV SCH ×2 (02:00→09:00)
[2018-11-04 03:07] VITALS: O2SAT 98
[2018-11-04 03:22] LABS: Urine Blood NEGATIVE (NEG); Urine Glucose NEGATIVE (NEG); Urine Protein 1+ (NEG); Urine Specific Gravity >1.030 (1.005-1.030); Urine pH 6.5 (5.0-7.0)
[2018-11-04] MEDS ORDERED: D5 0.45 NS 1,000 ML IV ONE (04:02)
[2018-11-04 05:07] VITALS: BMI 30.2
--- NOTE | 2018-11-04 12:21 | CON ---
A 28-year-old 3, para 2, 30 weeks 5 days, followed by [facility], admitted through the emergency ro om with severe nausea and vomiting and dehydration. Patient was inaccurately admitted to me. This i s an on-call situation. I will transfer the patient to Dr. Grajeda as he is on-call this week. LYNN/APOLONIA Voice ID: [id number] Report ID: [id number]
[2018-11-04 16:31] VITALS: BP 108/56; TEMP 98.8
--- NOTE | 2018-11-04 21:21 | PREOPHP ---
Date of Admission: 11/04/2018 History: Ms. Fuentes is a 28-year-old single female, well known to us after multiple admissi ons for hyperemesis gravidarum. She is ostensibly followed for care through [facility], [facility] presents to our emergency room with complaints of nausea and vomiting, noted to have ketonuria, and by history weight loss. She denies significant cough, cold, fever, or chills. She denies any breas t knots or lumps. She denies urine burning or stinging. She denies any vaginal bleeding or spotting . has been active. Physical Examination: General: Reveals a female, no obvious distress. Neck: Supple without adenopathy or thyromegaly. Lungs: Clear. Cardiac: Regular rate and rhythm without murmurs. Breasts: Not examined. Abdomen: Consistent with a 30+ week . heart tones well heard. Pelvic: Not performed. Extremities: No cyanosis, clubbing, or edema. The patient has been treated with IV Phenergan and Zofran, hydrated with 3 L of fluids, and has jesus ated a full liquid diet. She would like to go home. We will supply sufficient Phenergan tabs and/or Zofran ODT until her next obstetrical appointment. Past Medical History: Please see per prior dictated hospitalizations. Family History: Please see per prior dictated hospitalizations. Impression: Approximately 31 week , hyperemesis gravidarum, dehydration. Plan: As before. Patient has been observed for 12+ hours, hydrated, and is now desirous of going ho ri. JIL/APOLONIA Voice ID: [id number]
== END 2018-11-04 16:15 | disposition home or self-care (01) ==
LOC: ER 23:09 → ERHOLD 11-04 01:34 → 2ND-WC 11-04 02:04
PROVIDERS: ADMIT Specialist; ATTEND Specialist
DX: O21.1 Hyperemesis gravidarum with metabolic disturbance (principal); Z3A.31 31 weeks gestation of pregnancy
CPT/HCPCS: 36415; 80048; 80076; 81003; 81025; 83690; 85025; 87086; 87088; 96361; 96365; 96375; 99285; G0378; J0696; J2405; J2550; J7030

== ENCOUNTER 2019-01-10 20:04 | Emergency (ER) | payer MEDICAID, SELFPAY ==
--- OUTSIDE RECORDS SUMMARY | 2019-01-10 20:07 | XMS REPORT ---
:1990 [facility] [address] [place] [address] Care Team Providers Name Role Phone Unavailable Unavailable Unavailable Problems This patient has no known problems. Allergies, Adverse Reactions, Alerts This patient has no known allergies or adverse reactions. Medications This patient has no known medications.
--- NOTE | 2019-01-10 21:48 | ER ---
Nurse's Notes [facility] Name: Suraj Fuentes Age: 28 yrs Sex: Female : 1990 Arrival Date: 01/10/2019 Time: 20:12 Bed 5 Private MD: WILMA DAMON Diagnosis: Viral Illness Presentation: 01/10 20:16 Presenting complaint: Patient states: Yesterday I woke up with a sore throat and today ed1 I started sneezing and I feel feverish. I don't get high fevers, a fever for me is like 99.0. Transition of care: patient was not received from another setting of care. Onset of symptoms was January 09, 2019. Risk Assessment: Do you want to hurt yourself or someone else? Patient reports no desire to harm self or others. Initial Sepsis Screen: Does the patient meet any 2 criteria? No. Patient's initial sepsis screen is negative. Does the patient have a suspected source of infection? No. Patient's initial sepsis screen is negative. Care prior to arrival: Medication(s) given: "allergy pill". 20:16 Method Of Arrival: Ambulatory ed1 20:16 Acuity: SHAW 4 ed1 Triage Assessment: 20:19 General: Appears uncomfortable, Behavior is calm, cooperative. Pain: Complains of pain ed1 in chest and throat. EENT: Reports nasal congestion. 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 Patient has never been vaccinated. - Social history:: Smoking status: Patient/guardian denies using tobacco. - Ebola Screening: : Patient negative for fever greater than or equal to 101.5 degrees Fahrenheit, and additional compatible Ebola Virus Disease symptoms Patient denies exposure to infectious person Patient denies travel to an Ebola-affected area in the 21 days before illness onset. Screenin:06 Abuse screen: Denies threats or abuse. Nutritional screening: No deficits noted. la1 Tuberculosis screening: No symptoms or risk factors identified. Fall Risk None identified. Assessment: 21:05 General: Appears in no apparent distress. Behavior is calm, cooperative. Pain: la1 Complains of pain in sore throat. Neuro: Level of Consciousness is awake, alert, obeys commands, Oriented to person, place, time, situation. Cardiovascular: Patient's skin is warm and dry. Respiratory: Airway is patent Respiratory effort is even, unlabored, Respiratory pattern is regular, symmetrical, Breath sounds are clear bilaterally. GI: No signs and/or symptoms were reported involving the gastrointestinal system. : No signs and/or symptoms were reported regarding the genitourinary system. EENT: Throat is reddened. Vital Signs: 20:19 BP 118 / 77; Pulse 87; Resp 16; Temp 97.8(O); Pulse Ox 100% ; Weight 73.48 kg; Height 5 ed1 ft. 2 in. (157.48 cm); Pain 7/10; 20:19 Body Mass Index 29.63 (73.48 kg, 157.48 cm) ed1 ED Course: 20:12 Patient arrived in ED. mr 20:13 WILMA DAMON is Private Physician. mr 20:17 Triage completed. ed1 20:19 Arm band placed on left wrist. ed1 20:39 Sharath Rod MD is Attending Physician. kdr 20:42 Robin Angelo RN is Primary Nurse. la1 21:06 Call light in reach. la1 21:06 No provider procedures requiring assistance completed. Patient did not have IV access la1 during this emergency room visit. 21:47 WILMA DAMON is Referral Physician. kdr Administered Medications: No medications were administered Outcome: 21:48 Discharge ordered by . kdr 22:07 Discharged to home ambulatory. la1 22:07 Condition: stable 22:07 Discharge instructions given to patient, Instructed on discharge instructions, follow up and referral plans. medication usage, Demonstrated understanding of instructions, follow-up care. 22:07 Patient left the ED. la1 Signatures: Sharath Rod MD MD kdr Rivera, Mary PorterTammy RN RN ed1 Robin Angelo RN RN la1
--- NOTE | 2019-01-10 21:48 | EDPHYS ---
Physician Documentation [facility] Name: Suraj Fuentes Age: 28 yrs Sex: Female : 1990 Arrival Date: 01/10/2019 Time: 20:12 Bed 5 Private MD: WILMA DAMON ED Physician Sharath Rod CUTTER GAS: 01/10 20:19 LMP N/A - Recent ed1 Historical: - Allergies: 20:19 Ibuprofen; ed1 20:19 ORANGES; ed1 - Home Meds: 20:19 Tramadol Oral [Active]; Levaquin Oral [Active]; ed1 - PMHx: 20:19 None; ed1 - PSHx: 20:19 Appendectomy; ; ed1 - Immunization history:: Adult Immunizations up to date, Flu vaccine is not up to date. Patient has never been vaccinated. - Social history:: Smoking status: Patient/guardian denies using tobacco. - Ebola Screening: : Patient negative for fever greater than or equal to 101.5 degrees Fahrenheit, and additional compatible Ebola Virus Disease symptoms Patient denies exposure to infectious person Patient denies travel to an Ebola-affected area in the 21 days before illness onset. Vital Signs: 20:19 BP 118 / 77; Pulse 87; Resp 16; Temp 97.8(O); Pulse Ox 100% ; Weight 73.48 kg; Height 5 ed1 ft. 2 in. (157.48 cm); Pain 7/10; 20:19 Body Mass Index 29.63 (73.48 kg, 157.48 cm) ed1 MDM: 21:48 Patient medically screened. kdr 01/10 20:58 Order name: Strep; Complete Time: 21:46 kdr 01/10 20:58 Order name: Flu; Complete Time: 21:47 kdr 01/10 21:27 Order name: Throat Culture EDMS Administered Medications: No medications were administered Disposition: 01/10/19 21:48 Discharged to Home. Impression: Viral Illness. - Condition is Stable. - Discharge Instructions: Viral Respiratory Infection, [id number]. - Prescriptions for Mucinex DM 30- 600 mg Oral tablet extended release 12 hr - take 1 tablet by ORAL route every 12 hours As needed as needed; 10 tablet. Tessalon Perles 100 mg Oral Capsule - take 1 capsule by ORAL route every 8 hours As needed; 15 capsule. - Medication Reconciliation Form, Thank You Letter form. - Follow up: WILMA DAMON; When: 2 - 3 days; Reason: Wound Recheck, Recheck today's complaints, Continuance of care, Re-evaluation by your physician. - Problem is new. - Symptoms are unchanged. Signatures: Dispatcher [employer] EDIA Sharath Rod MD MD kdr Riggs, Erika, RN RN ed1 Robin Angelo RN RN la1 Corrections: (The following items were deleted from the chart) 22:07 21:48 01/10/2019 21:48 Discharged to Home. Impression: Viral Illness. Condition is la1 Stable. Forms are Medication Reconciliation Form, Thank You Letter, Antibiotic Education, Prescription Opioid Use. Follow up: WILMA DAMON; When: 2 - 3 days; Reason: Wound Recheck, Recheck today's complaints, Continuance of care, Re-evaluation by your physician. Problem is new. Symptoms are unchanged. kdr
[2019-01-10 22:27] VITALS: BP 118/77; TEMP 97.8; O2SAT 100
== END 2019-01-10 22:07 | disposition home or self-care (01) ==
LOC: ER 20:04
DX: B34.9 Viral infection, unspecified (principal); Z88.6 Allergy status to analgesic agent; Z91.018 Allergy to other foods
CPT/HCPCS: 87070; 87081; 87804; 99281

== ENCOUNTER 2019-01-20 08:25 | Emergency (ER) | payer SELFPAY ==
--- OUTSIDE RECORDS SUMMARY | 2019-01-20 08:27 | XMS REPORT ---
:1990 [facility] [address] [place] [address] Care Team Providers Name Role Phone Unavailable Unavailable Unavailable Problems This patient has no known problems. Allergies, Adverse Reactions, Alerts This patient has no known allergies or adverse reactions. Medications This patient has no known medications.
[2019-01-20] MEDS ORDERED: ONDANSETRON 4 MG/2 ML VIAL ONE (08:55)
[2019-01-20] MEDS ORDERED: NA CHLORIDE 0.9% 1,000 ML ONE (08:55)
[2019-01-20] MEDS ORDERED: MORPHINE 4 MG/ML SYR ONE (08:55)
[2019-01-20 09:15] LABS: Absolute Lymphocytes (CBC) 2.3 K/uL (0.7-4.9); Absolute Monocytes 0.5 K/uL (0.1-1.3); Absolute Neutrophil 4.3 K/uL (1.8-8.0); Basophils % 0.4 % (0-1.3); Eosinophils % 2.2 % (0-4.4); Hematocrit 39.8 % (36.0-45.0); Lymphocytes % 31.4 % (15.3-44.8); MPV 8.4 fL (7.6-11.3); Monocytes % 7.2 % (3.3-12.3); RBC Red Blood Cell Count 4.69 M/uL (3.86-4.86)
[2019-01-20 09:33] LABS: ALT/SGPT 19 U/L (12-78); AST/SGOT 15 U/L (15-37); Albumin 3.5 g/dL (3.4-5.0); Alkaline Phosphatase 100 U/L (45-117); BUN Blood Urea Nitrogen 7 mg/dL (7-18); Bicarbonate 27 mmol/L (21-32); Bilirubin Direct 0.1 mg/dL (0-0.2); Bilirubin Total 0.5 mg/dL (0.2-1.0); Glucose Level 84 mg/dL (74-106); Lipase 108 U/L (73-393); Potassium 3.9 mmol/L (3.5-5.1); Protein, Total 7.1 g/dL (6.4-8.2); Sodium Level 141 mmol/L (136-145)
--- NOTE | 2019-01-20 10:18 | RAD REPORT ---
EXAM DESCRIPTION: CT - Stone Protocol - 01/20/2019 10:00 am CLINICAL HISTORY: Abdominal pain. Left lower quadrant pain COMPARISON: 2016 TECHNIQUE: Computed axial tomography of the abdomen pelvis was obtained without oral or IV contrast. Lack of IV and oral contrast limits evaluation of solid organs, bowel, and vessels. Coronal reformat young images were obtained and reviewed. All CT scans are performed using dose optimization technique as appropriate and may include automated exposure control or mA/KV adjustment according to patient size. FINDINGS: A renal calculus is not seen. An ureteral calculus is not noted. A bladder calculus is not present. The liver, spleen, pancreas and adrenals appear grossly normal There is no evidence of diverticulitis. The appendix has been removed 1Small umbilical hernia uterus IMPRESSION: Negative for a genitourinary calculus
--- NOTE | 2019-01-20 10:30 | ER ---
Nurse's Notes [facility] Name: Suraj Fuentes Age: 28 yrs Sex: Female : 1990 Arrival Date: 01/20/2019 Time: 08:28 Bed 18 Private MD: Diagnosis: Upper abdominal pain, unspecified Presentation: 01/20 08:35 Presenting complaint: Patient states: LUQ pain that radiates to L rib area and L chest, ph also reports nausea, denies V/D, or fever. Transition of care: patient was not received from another setting of care. Onset of symptoms was January 20, 2019. Risk Assessment: Do you want to hurt yourself or someone else? Patient reports no desire to harm self or others. Initial Sepsis Screen: Does the patient meet any 2 criteria? No. Patient's initial sepsis screen is negative. Does the patient have a suspected source of infection? No. Patient's initial sepsis screen is negative. Care prior to arrival: None. 08:35 Method Of Arrival: Ambulatory 08:35 Acuity: SHAW 3 ph Triage Assessment: 08:37 General: Appears in no apparent distress. uncomfortable, Behavior is calm, cooperative, hj appropriate for age. Pain: Complains of pain in abdomen. EENT: No signs and/or symptoms were reported regarding the EENT system. Neuro: Level of Consciousness is awake, alert, obeys commands, Oriented to person, place, time, situation, Appropriate for age. Cardiovascular: Capillary refill < 3 seconds Patient's skin is warm and dry. Respiratory: Airway is patent Respiratory effort is even, unlabored, Respiratory pattern is regular, symmetrical. GI: Reports upper abdominal pain, nausea. : No signs and/or symptoms were reported regarding the genitourinary system. Derm: No signs and/or symptoms reported regarding the dermatologic system. Musculoskeletal: No signs and/or symptoms reported regarding the musculoskeletal system. 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 - Social history:: Smoking status: Patient/guardian denies using tobacco. - Ebola Screening: : No symptoms or risks identified at this time. Screenin:37 Abuse screen: Denies threats or abuse. Denies injuries from another. Nutritional hj screening: No deficits noted. Tuberculosis screening: No symptoms or risk factors identified. Fall Risk None identified. Assessment: 08:38 Reassessment: see triage for assessment;. hj 09:14 Reassessment: Patient and/or family updated on plan of care and expected duration. Pain hj level reassessed. Patient is alert, oriented x 3, equal unlabored respirations, skin warm/dry/pink. awaiting results and POC;. 09:35 Reassessment: assisted to the bathroom;. hj 09:54 Reassessment: wheeled to CT;. hj 10:05 Reassessment: Back from CT. pc1 10:47 Reassessment: D/C instructions given;. hj Vital Signs: 08:37 BP 136 / 76; Pulse 67; Resp 18; Temp 97.6; Pulse Ox 100% on R/A; Weight 74.84 kg; ph Height 5 ft. 2 in. (157.48 cm); Pain 7/10; 09:14 BP 126 / 77; Pulse 65; Resp 18; Pulse Ox 100% on R/A; hj 10:23 BP 123 / 78; Pulse 60; Resp 18; Pulse Ox 100% on R/A; pc1 08:37 Body Mass Index 30.18 (74.84 kg, 157.48 cm) ph ED Course: 08:28 Patient arrived in ED. as 08:28 Christine Solares FNP-C is PHCP. kb 08:28 Zane Herring MD is Attending Physician. kb 08:34 Jared Caldera RN is Primary Nurse. hj 08:36 Triage completed. ph 08:38 Arm band placed on Patient placed in an exam room, on a stretcher. ph 08:38 Patient has correct armband on for positive identification. Placed in gown. Bed in low hj position. Call light in reach. Side rails up X 1. Adult w/ patient. 09:12 Initial lab(s) drawn, by ED staff, sent to lab. Inserted saline lock: 22 gauge in left hj forearm, using aseptic technique. Blood collected. Inserted saline lock: ,using aseptic technique. SN Girish. 09:46 Radiology exam delayed due to test not completed at this time. vm2 10:00 CT Stone Protocol In Process Unspecified. EDMS 10:02 Urine Dipstick--Ancillary (enter results) Sent. pc1 10:02 Urine --Ancillary (enter results) Sent. pc1 10:02 Urine Microscopic Only Sent. pc1 10:46 No provider procedures requiring assistance completed. IV discontinued, intact, hj bleeding controlled, No redness/swelling at site. Pressure dressing applied. Administered Medications: 08:50 Drug: NS 0.9% 1000 ml Route: IV; Rate: 1000 ml; Site: left forearm; hj 09:11 Follow up: IV Status: Infusion continued hj 08:50 Drug: Zofran 4 mg Route: IVP; Site: left forearm; hj 09:11 Follow up: Response: No adverse reaction; Nausea is decreased hj 08:50 Drug: morphine 4 mg Route: IVP; Site: left forearm; hj 09:11 Follow up: Response: No adverse reaction; Pain is decreased Outcome: 10:29 Discharge ordered by . kb 10:46 Discharged to home ambulatory, with family. hj 10:46 Condition: stable 10:46 Discharge instructions given to patient, family, Instructed on discharge instructions, follow up and referral plans. medication usage, Demonstrated understanding of instructions, follow-up care, medications, Prescriptions given X 2. 10:51 Patient left the ED. Signatures: Dispatcher [employer] EDMI Christine Solares, SHAWN [place]-Jinny Tolbert Patricia, RN RN Jared Caldera, Nilda Son RN 2 Gracie, Christian johnson
--- NOTE | 2019-01-20 10:30 | EDPHYS ---
Physician Documentation [facility] Name: Suraj Fuentes Age: 28 yrs Sex: Female : 1990 Arrival Date: 01/20/2019 Time: 08:28 Bed 18 Private MD: ED Physician Zane Herring HPI: 01/20 09:29 This 28 yrs old Female presents to ER via Ambulatory with complaints of Flank kb Pain, Epigastric Pain, Nausea. 09:33 The patient presents with abdominal pain in the left upper quadrant. Onset: The kb symptoms/episode began/occurred last night. The symptoms radiate to the left flank. Associated signs and symptoms: Pertinent positives: nausea. The symptoms are described as constant. Modifying factors: The symptoms are alleviated by nothing, the symptoms are aggravated by breathing deeply, pressure, touching the area. Severity of pain: At its worst the pain was moderate in the emergency department the pain is unchanged. The patient has not experienced similar symptoms in the past. The patient has not recently seen a physician. 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 - Social history:: Smoking status: Patient/guardian denies using tobacco. - Ebola Screening: : No symptoms or risks identified at this time. ROS: 09:28 Constitutional: Negative for fever, chills, and weight loss, ENT: Negative for injury, kb pain, and discharge, Neck: Negative for injury, pain, and swelling, Cardiovascular: Negative for chest pain, palpitations, and edema, Respiratory: Negative for shortness of breath, cough, wheezing, and pleuritic chest pain, Back: Negative for injury and pain, : Negative for injury, bleeding, discharge, and swelling, MS/Extremity: Negative for injury and deformity, Skin: Negative for injury, rash, and discoloration, Neuro: Negative for headache, weakness, numbness, tingling, and seizure. 09:28 Abdomen/GI: Positive for abdominal pain, nausea, Negative for vomiting, diarrhea, constipation, abdominal cramps, abdominal distension, anorexia. Exam: 09:28 Constitutional: This is a well developed, well nourished patient who is awake, alert, kb and in no acute distress. Head/Face: Normocephalic, atraumatic. Chest/axilla: Normal chest wall appearance and motion. Nontender with no deformity. No lesions are appreciated. Cardiovascular: Regular rate and rhythm with a normal S1 and S2. No gallops, murmurs, or rubs. Normal PMI, no JVD. No pulse deficits. Respiratory: Lungs have equal breath sounds bilaterally, clear to auscultation and percussion. No rales, rhonchi or wheezes noted. No increased work of breathing, no retractions or nasal flaring. Back: No spinal tenderness. No costovertebral tenderness. Full range of motion. Skin: Warm, dry with normal turgor. Normal color with no rashes, no lesions, and no evidence of cellulitis. MS/ Extremity: Pulses equal, no cyanosis. Neurovascular intact. Full, normal range of motion. Neuro: Awake and alert, GCS 15, oriented to person, place, time, and situation. Cranial nerves II-XII grossly intact. Motor strength 5/5 in all extremities. Sensory grossly intact. Cerebellar exam normal. Normal gait. 09:28 Abdomen/GI: Inspection: abdomen appears normal, Bowel sounds: normal, in all quadrants, Palpation: soft, in all quadrants, moderate abdominal tenderness, in the left upper quadrant. Vital Signs: 08:37 BP 136 / 76; Pulse 67; Resp 18; Temp 97.6; Pulse Ox 100% on R/A; Weight 74.84 kg; ph Height 5 ft. 2 in. (157.48 cm); Pain 7/10; 09:14 BP 126 / 77; Pulse 65; Resp 18; Pulse Ox 100% on R/A; hj 10:23 BP 123 / 78; Pulse 60; Resp 18; Pulse Ox 100% on R/A; pc1 08:37 Body Mass Index 30.18 (74.84 kg, 157.48 cm) ph MDM: 08:29 Patient medically screened. kb 09:21 Data reviewed: vital signs, nurses notes. Data interpreted: Pulse oximetry: on room air kb is 100 %. Interpretation: normal. 10:20 Counseling: I had a detailed discussion with the patient and/or guardian regarding: the kb historical points, exam findings, and any diagnostic results supporting the discharge/admit diagnosis, lab results, radiology results, the need for outpatient follow up, a family practitioner, to return to the emergency department if symptoms worsen or persist or if there are any questions or concerns that arise at home. 01/20 08:39 Order name: Basic Metabolic Panel; Complete Time: 09:34 kb 01/20 08:39 Order name: CBC with Diff; Complete Time: 09:21 kb 01/20 08:39 Order name: Hepatic Function; Complete Time: 09:34 kb 01/20 08:39 Order name: Lipase; Complete Time: 09:34 kb 01/20 09:45 Order name: Urine Microscopic Only; Complete Time: 10:53 kb 01/20 09:49 Order name: Urine Dipstick--Ancillary (enter results) bd 01/20 08:39 Order name: IV Saline Lock; Complete Time: 08:51 kb 01/20 08:39 Order name: Labs collected and sent; Complete Time: 08:51 kb 01/20 09:45 Order name: CT Stone Protocol; Complete Time: 10:20 kb 01/20 09:49 Order name: Urine --Ancillary (enter results) 01/20 10:34 Order name: Urine Culture [facility] 01/20 08:39 Order name: Urine Dipstick-Ancillary (obtain specimen); Complete Time: 09:40 kb Administered Medications: 08:50 Drug: NS 0.9% 1000 ml Route: IV; Rate: 1000 ml; Site: left forearm; hj 09:11 Follow up: IV Status: Infusion continued hj 08:50 Drug: Zofran 4 mg Route: IVP; Site: left forearm; hj 09:11 Follow up: Response: No adverse reaction; Nausea is decreased hj 08:50 Drug: morphine 4 mg Route: IVP; Site: left forearm; hj 09:11 Follow up: Response: No adverse reaction; Pain is decreased Disposition: 11:01 Co-signature as Attending Physician, Zane Herring MD. rn Disposition: 01/20/19 10:29 Discharged to Home. Impression: Upper abdominal pain, unspecified. - Condition is Stable. - Discharge Instructions: Abdominal Pain, Adult, [id number]. - Prescriptions for Zofran 4 mg Oral Tablet - take 1 tablet by ORAL route every 6 hours As needed; 20 tablet. Tramadol 50 mg Oral Tablet - take 1 tablet by ORAL route every 8 hours as needed; 12 tablet. - Medication Reconciliation Form, Thank You Letter, Antibiotic Education, Prescription Opioid Use form. - Follow up: Emergency Department; When: As needed; Reason: Worsening of condition. Follow up: Private Physician; When: 2 - 3 days; Reason: Recheck today's complaints, Continuance of care, Re-evaluation by your physician. Signatures: Dispatcher [employer] EDMS Christine Solares, SUPERVISOR BEATER ROOM-C SUPERVISOR BEATER ROOM-Ckb Zane Herring MD MD rn Bethanie Cruz RN RN ph Jared Caldera RN RN hj Corrections: (The following items were deleted from the chart) 09:45 09:33 The symptoms do not radiate. kb kb 10:51 10:29 01/20/2019 10:29 Discharged to Home. Impression: Upper abdominal pain, hj unspecified. Condition is Stable. Discharge Instructions: Abdominal Pain, Adult, [id number]. Prescriptions for Zofran 4 mg Oral Tablet - take 1 tablet by ORAL route every 6 hours As needed; 20 tablet. and Forms are Medication Reconciliation Form, Thank You Letter, Antibiotic Education, Prescription Opioid Use. Follow up: Emergency Department; When: As needed; Reason: Worsening of condition. Follow up: Private Physician; When: 2 - 3 days; Reason: Recheck today's complaints, Continuance of care, Re-evaluation by your physician. kb
[2019-01-20 10:33] LABS: Urine Bacteria <20 /HPF (<20); Urine Culture Reflex Order REFLEXED; Urine RBC <5 /HPF (NONE SEEN)
[2019-01-20 10:57] LABS: Urine Blood TRACE (NEG); Urine Glucose NEGATIVE (NEG); Urine Protein NEGATIVE (NEG)
[2019-01-20 11:02] VITALS: TEMP 97.6; O2SAT 100
[2019-01-20 11:05] VITALS: BP 123/78
== END 2019-01-20 10:51 | disposition home or self-care (01) ==
LOC: ER 08:25
DX: R10.12 Left upper quadrant pain (principal); Z88.6 Allergy status to analgesic agent; Z91.018 Allergy to other foods
CPT/HCPCS: 36415; 74176; 76377; 80048; 80076; 81003; 81015; 81025; 83690; 85025; 87086; 87088; 96374; 96375; 99284; J2405; J7030

== ENCOUNTER 2019-03-08 11:06 | Emergency (ER) | payer MEDICAID ==
--- OUTSIDE RECORDS SUMMARY | 2019-03-08 11:09 | XMS REPORT ---
:1990 [facility] [address] [place] [address] Care Team Providers Name Role Phone Unavailable Unavailable Unavailable Problems This patient has no known problems. Allergies, Adverse Reactions, Alerts This patient has no known allergies or adverse reactions. Medications This patient has no known medications.
[2019-03-08] MEDS ORDERED: NA CHLORIDE 0.9% 1,000 ML ONE (12:00)
[2019-03-08] MEDS ORDERED: ONDANSETRON 4 MG/2 ML VIAL ONE (12:01)
[2019-03-08 12:21] LABS: Absolute Lymphocytes (CBC) 2.2 K/uL (0.7-4.9); Absolute Monocytes 0.4 K/uL (0.1-1.3); Absolute Neutrophil 3.4 K/uL (1.8-8.0); Basophils % 0.7 % (0-1.3); Eosinophils % 1.7 % (0-4.4); Hematocrit 42.1 % (36.0-45.0); Lymphocytes % 35.6 % (15.3-44.8); MPV 8.6 fL (7.6-11.3); Monocytes % 7.3 % (3.3-12.3); RBC Red Blood Cell Count 4.95 M/uL (3.86-4.86)
[2019-03-08 12:22] LABS: ALT/SGPT 23 U/L (12-78); AST/SGOT 13 U/L (15-37); Alkaline Phosphatase 111 U/L (45-117); BUN Blood Urea Nitrogen 9 mg/dL (7-18); Bicarbonate 25 mmol/L (21-32); Bilirubin Total 0.5 mg/dL (0.2-1.0); Glucose Level 83 mg/dL (74-106); Potassium 3.8 mmol/L (3.5-5.1); Protein, Total 7.8 g/dL (6.4-8.2); Sodium Level 141 mmol/L (136-145); Troponin I < 0.02 ng/mL (0.0-0.045)
[2019-03-08] MEDS ORDERED: MORPHINE 4 MG/ML SYR ONE (12:29)
--- NOTE | 2019-03-08 12:31 | EDPHYS ---
Physician Documentation [facility] Name: Suraj Fuentes Age: 28 yrs Sex: Female : 1990 Arrival Date: 03/08/2019 Time: 11:09 Bed 6 Private MD: ED Physician Pancho Greene HPI: 03/08 11:21 This 28 yrs old Female presents to ER via Ambulatory with complaints of Body jessica Aches, Nausea, Cough. 11:21 The patient presents to the emergency department with nausea. Onset: The jessica symptoms/episode began/occurred this morning. Possible causes: unknown. The symptoms are aggravated by nothing. The symptoms are alleviated by nothing. Associated signs and symptoms: The patient has no apparent associated signs or symptoms. Associated signs and symptoms: Pertinent positives: nausea. Severity of symptoms: At their worst the symptoms were mild in the emergency department the symptoms are unchanged. The patient has not experienced similar symptoms in the past. 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 - Social history:: Smoking status: Patient/guardian denies using tobacco. - Ebola Screening: : No symptoms or risks identified at this time. - Family history:: not pertinent. ROS: 11:21 Constitutional: Negative for fever, chills, and weight loss, Eyes: Negative for injury, jessica pain, redness, and discharge, ENT: Negative for injury, pain, and discharge, Neck: Negative for injury, pain, and swelling, Back: Negative for injury and pain, : Negative for injury, bleeding, discharge, and swelling, MS/Extremity: Negative for injury and deformity, Skin: Negative for injury, rash, and discoloration, Neuro: Negative for headache, weakness, numbness, tingling, and seizure, Psych: Negative for depression, anxiety, suicide ideation, homicidal ideation, and hallucinations, Allergy/Immunology: Negative for hives, rash, and allergies, Endocrine: Negative for neck swelling, polydipsia, polyuria, polyphagia, and marked weight changes, Hematologic/Lymphatic: Negative for swollen nodes, abnormal bleeding, and unusual bruising. 11:21 Cardiovascular: Positive for chest pain. 11:21 Respiratory: Positive for cough. 11:21 Abdomen/GI: Positive for nausea. Exam: 11:21 Constitutional: This is a well developed, well nourished patient who is awake, alert, jessica and in no acute distress. Head/Face: Normocephalic, atraumatic. Eyes: Pupils equal round and reactive to light, extra-ocular motions intact. Lids and lashes normal. Conjunctiva and sclera are non-icteric and not injected. Cornea within normal limits. Periorbital areas with no swelling, redness, or edema. ENT: Nares patent. No nasal discharge, no septal abnormalities noted. Tympanic membranes are normal and external auditory canals are clear. Oropharynx with no redness, swelling, or masses, exudates, or evidence of obstruction, uvula midline. Mucous membranes moist. Neck: Trachea midline, no thyromegaly or masses palpated, and no cervical lymphadenopathy. Supple, full range of motion without nuchal rigidity, or vertebral point tenderness. No Meningismus. Chest/axilla: Normal chest wall appearance and motion. Nontender with no deformity. No lesions are appreciated. Cardiovascular: Regular rate and rhythm with a normal S1 and S2. No gallops, murmurs, or rubs. Normal PMI, no JVD. No pulse deficits. Respiratory: Lungs have equal breath sounds bilaterally, clear to auscultation and percussion. No rales, rhonchi or wheezes noted. No increased work of breathing, no retractions or nasal flaring. Abdomen/GI: Soft, non-tender, with normal bowel sounds. No distension or tympany. No guarding or rebound. No evidence of tenderness throughout. Back: No spinal tenderness. No costovertebral tenderness. Full range of motion. Skin: Warm, dry with normal turgor. Normal color with no rashes, no lesions, and no evidence of cellulitis. MS/ Extremity: Pulses equal, no cyanosis. Neurovascular intact. Full, normal range of motion. Neuro: Awake and alert, GCS 15, oriented to person, place, time, and situation. Cranial nerves II-XII grossly intact. Motor strength 5/5 in all extremities. Sensory grossly intact. Cerebellar exam normal. Normal gait. Psych: Awake, alert, with orientation to person, place and time. Behavior, mood, and affect are within normal limits. 11:21 Musculoskeletal/extremity: DVT Exam: No signs of deep vein thrombosis. no pain, no swelling, no tenderness, negative Homans' sign noted on exam, no appreciated bluish discoloration, no erythema, no increased warmth. Vital Signs: 11:20 BP 136 / 92; Pulse 65; Resp 16 S; Temp 98.3(O); Pulse Ox 99% on R/A; Weight 76.2 kg; aa5 Pain 7/10; 12:39 BP 112 / 51; Pulse 64; Resp 16; Temp 97.3(TE); Pulse Ox 98% on R/A; la1 MDM: 11:12 Patient medically screened. [facility] 11:25 Data reviewed: vital signs, nurses notes, lab test result(s), EKG, radiologic studies, jessica plain films. 03/08 11:21 Order name: CBC with Diff; Complete Time: 12:29 [facility] 03/08 11:21 Order name: Comprehensive Metabolic Panel; Complete Time: 12:29 [facility] 03/08 11:21 Order name: Flu; Complete Time: 12:29 [facility] 03/08 11:21 Order name: Troponin I; Complete Time: 12:29 [facility] 03/08 11:44 Order name: Urine Dipstick--Ancillary (enter results) 03/08 11:45 Order name: Urine Dipstick-Ancillary [facility] 03/08 11:21 Order name: Chest Single View XRAY [facility] 03/08 11:21 Order name: Urine Dipstick-Ancillary (obtain specimen); Complete Time: 11:48 [facility] 03/08 11:21 Order name: Urine Test (obtain specimen); Complete Time: 11:48 [facility] 03/08 11:21 Order name: EKG; Complete Time: 11:22 [facility] 03/08 11:46 Order name: Urine --Ancillary (enter results); Complete Time: 12:29 03/08 11:21 Order name: EKG - Nurse/Tech; Complete Time: 11:48 [facility] Administered Medications: 11:52 Drug: NS 0.9% 1000 ml Route: IV; Rate: 1 bolus; Site: right antecubital; la1 12:40 Follow up: IV Status: Completed infusion la1 11:53 Drug: Zofran 4 mg Route: IVP; Site: left antecubital; la1 12:40 Follow up: Response: No adverse reaction la1 12:20 Drug: morphine 4 mg Route: IVP; Site: right antecubital; la1 12:40 Follow up: Response: No adverse reaction; Pain is decreased la1 Disposition: 03/08/19 12:30 Discharged to Home. Impression: Weakness, Nausea, Cough. - Condition is Stable. - Discharge Instructions: Nausea, Adult, Weakness, Fatigue, Cough, Adult, [id number], Cough, Adult, Nausea, Adult, [id number]. - Prescriptions for Zofran 4 mg Oral Tablet - take 1 tablet by ORAL route every 12 hours As needed; 14 tablet. Zithromax Z- Isak 250 mg Oral Tablet - take 1 tablet by ORAL route as directed for 5 days Day 1 - take two (2) tablets one time. Day 2, 3, 4 , 5 take one (1) tablet once daily.; 6 tablet. Bromfed DM 2- 30-10 mg/5 mL Oral syrup - take 10 milliliter by ORAL route every 4 hours; 160 milliliter. - Medication Reconciliation Form, Thank You Letter, Antibiotic Education, Prescription Opioid Use form. - Follow up: Private Physician; When: 2 - 3 days; Reason: Recheck today's complaints, Continuance of care, Re-evaluation by your physician. - Problem is new. - Symptoms have improved. Signatures: Dispatcher [employer] EDHI Pancho Greene MD MD cha Calderon, Audri RN RN aa5 Robin Angelo RN RN la1 Corrections: (The following items were deleted from the chart) 12:40 12:30 03/08/2019 12:30 Discharged to Home. Impression: Weakness; Nausea; Cough. la1 Condition is Stable. Discharge Instructions: Nausea, Adult, Weakness, Fatigue, Nausea, Adult, [id number]. Prescriptions for Zofran 4 mg Oral Tablet - take 1 tablet by ORAL route every 12 hours As needed; 14 tablet. and Forms are Medication Reconciliation Form, Thank You Letter, Antibiotic Education, Prescription Opioid Use. Follow up: Private Physician; When: 2 - 3 days; Reason: Recheck today's complaints, Continuance of care, Re-evaluation by your physician. Problem is new. Symptoms have improved. jessica
--- NOTE | 2019-03-08 12:31 | ER ---
Nurse's Notes [facility] Name: Suraj Fuentes Age: 28 yrs Sex: Female : 1990 Arrival Date: 03/08/2019 Time: 11:09 Bed 6 Private MD: Diagnosis: Weakness;Nausea;Cough Presentation: 03/08 11:11 Presenting complaint: Patient states: "I woke up today with my body aching, feeling aa5 weak, nausea, and slight cough". Denies vomiting/denies diarrhea. Pt also c/o chest pain. 11:11 Transition of care: patient was not received from another setting of care. Onset of aa5 symptoms was March 08, 2019. Risk Assessment: Do you want to hurt yourself or someone else? Patient reports no desire to harm self or others. Initial Sepsis Screen: Does the patient meet any 2 criteria? No. Patient's initial sepsis screen is negative. Does the patient have a suspected source of infection? No. Patient's initial sepsis screen is negative. Care prior to arrival: None. 11:11 Acuity: SHAW 3 aa5 11:11 Method Of Arrival: Ambulatory aa5 GANG RIDER: 11:20 LMP 02/26/2019 aa5 Historical: - Allergies: 11:20 Ibuprofen; aa5 11:20 ORANGES; aa5 - PMHx: 11:20 None; aa5 - PSHx: 11:20 Appendectomy; ; aa5 - Immunization history:: Flu vaccine is not up to date. - Social history:: Smoking status: Patient/guardian denies using tobacco. - Ebola Screening: : No symptoms or risks identified at this time. - Family history:: not pertinent. Screenin:54 Abuse screen: Denies threats or abuse. Nutritional screening: No deficits noted. la1 Tuberculosis screening: No symptoms or risk factors identified. Fall Risk None identified. Assessment: 11:53 General: Appears in no apparent distress. ill, Behavior is calm, cooperative. Pain: la1 Complains of pain in chest. Neuro: Level of Consciousness is awake, alert, obeys commands, Oriented to person, place, time, situation. Cardiovascular: Capillary refill < 3 seconds Patient's skin is warm and dry. Respiratory: Airway is patent Respiratory effort is even, unlabored, Respiratory pattern is regular, symmetrical. GI: Abdomen is non-distended, obese, Bowel sounds present X 4 quads. : No signs and/or symptoms were reported regarding the genitourinary system. 12:39 Reassessment: Patient appears in no apparent distress at this time. No changes from la1 previously documented assessment. Patient and/or family updated on plan of care and expected duration. Pain level reassessed. Patient is alert, oriented x 3, equal unlabored respirations, skin warm/dry/pink. Vital Signs: 11:20 BP 136 / 92; Pulse 65; Resp 16 S; Temp 98.3(O); Pulse Ox 99% on R/A; Weight 76.2 kg; aa5 Pain 7/10; 12:39 BP 112 / 51; Pulse 64; Resp 16; Temp 97.3(TE); Pulse Ox 98% on R/A; la1 ED Course: 11:09 Patient arrived in ED. rg4 11:11 Arm band placed on Patient placed in an exam room, on a stretcher. aa5 11:12 Pancho Greene MD is Attending Physician. jessica 11:19 Triage completed. aa5 11:33 Robin Angelo, RN is Primary Nurse. la1 11:54 Call light in reach. la1 11:54 No provider procedures requiring assistance completed. Inserted saline lock: 20 gauge la1 in right antecubital area, using aseptic technique. Blood collected. 11:59 Urine collected: clean catch specimen, clear, ham colored, EKG done, by ED staff, jb1 reviewed by Pancho Greene MD. 12:39 IV discontinued, intact, bleeding controlled, No redness/swelling at site. Pressure la1 dressing applied. 12:45 Chest Single View XRAY In Process Unspecified. EDMS Administered Medications: 11:52 Drug: NS 0.9% 1000 ml Route: IV; Rate: 1 bolus; Site: right antecubital; la1 12:40 Follow up: IV Status: Completed infusion la1 11:53 Drug: Zofran 4 mg Route: IVP; Site: left antecubital; la1 12:40 Follow up: Response: No adverse reaction la1 12:20 Drug: morphine 4 mg Route: IVP; Site: right antecubital; la1 12:40 Follow up: Response: No adverse reaction; Pain is decreased la1 Outcome: 12:30 Discharge ordered by . jessica 12:40 Discharged to home ambulatory. la1 12:40 Condition: stable 12:40 Discharge instructions given to patient, Instructed on discharge instructions, follow up and referral plans. medication usage, Demonstrated understanding of instructions, follow-up care, medications, Prescriptions given X 3. 12:40 Patient left the ED. la1 Signatures: Dispatcher [employer] EDChevy Seymour jb1 Pancho Greene MD MD cha Calderon, Audri RN RN aa5 Robin Angelo RN RN la1 Saray Neil rg4
[2019-03-08 12:54] VITALS: BP 112/51; TEMP 97.3; O2SAT 98
[2019-03-08 13:25] LABS: Urine Blood NEGATIVE (NEG); Urine Glucose NEGATIVE (NEG); Urine Protein NEGATIVE (NEG); Urine pH 7.5 (5.0-7.0)
--- NOTE | 2019-03-08 13:39 | RAD REPORT ---
EXAM DESCRIPTION: RAD - Chest Single View - 03/08/2019 12:45 pm CLINICAL HISTORY: Cough COMPARISON: June 2018 TECHNIQUE: AP portable chest image was obtained 1140 hours . FINDINGS: Lungs are clear. Heart and vasculature are normal. No measurable pleural effusion and no p neumothorax. No acute bony abnormality seen. No acute aortic findings suspected. IMPRESSION: No acute cardiopulmonary process. No suspicious interval change.
--- NOTE | 2019-03-09 05:54 | EKG ---
Test Date: 2019-03-08 Test Time: 11:42:48 Belly Roller: JESUS MEASUREMENT RESULTS: Intervals: Rate: 53 MA: 128 QRSD: 82 QT: 438 QTc: 410 [place]: P: 48 MA: 128 QRS: 77 T: 60 INTERPRETIVE STATEMENTS: Sinus bradycardia with sinus arrhythmia Otherwise normal ECG Compared to ECG 10/09/2018 10:20:49 Sinus tachycardia no longer present T-wave abnormality no longer present Electronically Signed On 03-09-19 05:53:18 CDT by Sammy Corbin
== END 2019-03-08 12:40 | disposition home or self-care (01) ==
LOC: ER 11:06
DX: R05 Cough (principal); R53.1 Weakness; Z88.8 Allergy status to other drugs, medicaments and biological substances; Z91.018 Allergy to other foods
CPT/HCPCS: 36415; 71045; 80053; 81003; 81025; 84484; 85025; 87804; 93005; 99284; J2405; J7030

== ENCOUNTER 2019-03-14 02:42 | Emergency (ER) | payer MEDICAID ==
--- OUTSIDE RECORDS SUMMARY | 2019-03-14 02:43 | XMS REPORT ---
:1990 [facility] [address] [place] [address] [address]. [address] [place] [address] Care Team Providers Name Role Phone Unavailable Unavailable Unavailable Problems This patient has no known problems. Allergies, Adverse Reactions, Alerts This patient has no known allergies or adverse reactions. Medications This patient has no known medications.
--- NOTE | 2019-03-14 03:20 | ER ---
Nurse's Notes [facility] Name: Suraj Fuentes Age: 28 yrs Sex: Female : 1990 Arrival Date: 03/14/2019 Time: 02:47 Bed 19 Private MD: Diagnosis: Cough Presentation: 03/14 03:00 Presenting complaint: Patient states: she has developed a sore throat and cough this bb evening. Transition of care: patient was not received from another setting of care. Onset of symptoms was March 14, 2019. Risk Assessment: Do you want to hurt yourself or someone else? Patient reports no desire to harm self or others. Initial Sepsis Screen: Does the patient meet any 2 criteria? No. Patient's initial sepsis screen is negative. Does the patient have a suspected source of infection? No. Patient's initial sepsis screen is negative. Care prior to arrival: None. 03:00 Method Of Arrival: Ambulatory bb 03:00 Acuity: SHAW 4 bb Triage Assessment: 03:05 General: Appears in no apparent distress. comfortable, Behavior is calm, cooperative, cc3 appropriate for age. Pain: Denies pain. EENT: Reports cough. Neuro: Level of Consciousness is awake, alert, obeys commands, Oriented to person, place, time, situation, Appropriate for age. Cardiovascular: Denies chest pain, Patient's skin is warm and dry. Respiratory: Reports cough that is persistent Airway is patent Respiratory effort is even, unlabored, Respiratory pattern is regular, symmetrical. GI: Abdomen is round non-distended. : No signs and/or symptoms were reported regarding the genitourinary system. Derm: No signs and/or symptoms reported regarding the dermatologic system. Musculoskeletal: Circulation, motion, and sensation intact. Range of motion: intact in all extremities. SIZING SPONGER: 03:03 LMP 03/05/2019 bb Historical: - Allergies: 03:03 Ibuprofen; bb 03:03 ORANGES; bb - Home Meds: 03:03 None [Active]; bb - PMHx: 03:03 None; bb - PSHx: 03:03 Appendectomy; ; bb - Immunization history:: Adult Immunizations up to date. - Social history:: Smoking status: Patient/guardian denies using tobacco, Patient uses alcohol, occasionally. - Ebola Screening: : No symptoms or risks identified at this time. Screenin:05 Abuse screen: Denies threats or abuse. Denies injuries from another. Nutritional cc3 screening: No deficits noted. Tuberculosis screening: No symptoms or risk factors identified. Fall Risk Ambulatory Aid- None/Bed Rest/Nurse Assist (0 pts). Gait- Normal/Bed Rest/Wheelchair (0 pts) Mental Status- Oriented to own ability (0 pts). Assessment: 03:05 General: see triage assessment. cc3 03:25 Reassessment: Patient appears in no apparent distress at this time. Patient and/or cc3 family updated on plan of care and expected duration. Pain level reassessed. Patient is alert, oriented x 3, equal unlabored respirations, skin warm/dry/pink. Dr. Humphrey discharged the patient home with prescription given. No IV cannula in situ. Patient left ER vitally stable and ambulatory with her family. Patient denies pain at this time. Vital Signs: 03:03 Temp 98.1(O); Weight 76.66 kg (R); Height 5 ft. 2 in. (157.48 cm) (R); Pain 4/10; bb 03:05 BP 131 / 70; Pulse 78; Resp 16 S; Pulse Ox 100% on R/A; cc3 03:03 Body Mass Index 30.91 (76.66 kg, 157.48 cm) bb ED Course: 02:47 Patient arrived in ED. es 02:50 Warren Humphrey MD is Attending Physician. ps1 03:02 Triage completed. bb 03:03 Arm band placed on Patient placed in an exam room, on a stretcher, on pulse oximetry. bb Family accompanied patient. 03:05 Jaz Jones is Primary Nurse. cc3 03:05 Patient has correct armband on for positive identification. Bed in low position. Call cc3 light in reach. Side rails up X 1. Pulse ox on. NIBP on. 03:25 No provider procedures requiring assistance completed. Patient did not have IV access cc3 during this emergency room visit. Administered Medications: No medications were administered Outcome: 03:19 Discharge ordered by . ps1 03:25 Discharged to home ambulatory, with family. cc3 03:25 Condition: stable 03:25 Discharge instructions given to patient, Instructed on discharge instructions, follow up and referral plans. medication usage, Demonstrated understanding of instructions, follow-up care, medications, Prescriptions given X 1. 03:28 Patient left the ED. cc3 Signatures: Barbie Mckeon Brenda, RN RN Warren Eduardo MD MD ps1 Cordel, Charlene cc3
--- NOTE | 2019-03-14 03:20 | EDPHYS ---
Physician Documentation [facility] Name: Suraj Fuentes Age: 28 yrs Sex: Female : 1990 Arrival Date: 03/14/2019 Time: 02:47 Bed 19 Private MD: ED Physician Warren Humphrey HPI: 03/14 03:17 This 28 yrs old Female presents to ER via Ambulatory with complaints of Cough.ps1 03:17 patient accompanying child. Has a non productive cough for 2 hours. No medications ps1 tried. No fever. . 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 - Social history:: Smoking status: Patient/guardian denies using tobacco, Patient uses alcohol, occasionally. - Ebola Screening: : No symptoms or risks identified at this time. ROS: 03:17 Constitutional: Negative for fever, chills, and weight loss, Eyes: Negative for injury, ps1 pain, redness, and discharge, Cardiovascular: Negative for chest pain, palpitations, and edema, Abdomen/GI: Negative for abdominal pain, nausea, vomiting, diarrhea, and constipation, MS/Extremity: Negative for injury and deformity, Skin: Negative for injury, rash, and discoloration, Neuro: Negative for headache, weakness, numbness, tingling, and seizure. 03:17 Respiratory: Positive for cough. Exam: 03:17 Constitutional: This is a well developed, well nourished patient who is awake, alert, ps1 and in no acute distress. Head/Face: Normocephalic, atraumatic. Eyes: Pupils equal round and reactive to light, extra-ocular motions intact. Lids and lashes normal. Conjunctiva and sclera are non-icteric and not injected. Cardiovascular: Regular rate and rhythm. No gallops, murmurs, or rubs. Normal PMI, no JVD. No pulse deficits. Respiratory: Lungs have equal breath sounds bilaterally, clear to auscultation and percussion. No rales, rhonchi or wheezes noted. No increased work of breathing, no retractions or nasal flaring. Skin: Warm, dry with normal turgor. Normal color with no rashes, no lesions, and no evidence of cellulitis. MS/ Extremity: Pulses equal, no cyanosis. Neurovascular intact. Full, normal range of motion. Neuro: Awake and alert, GCS 15, oriented to person, place, time, and situation. Cranial nerves II-XII grossly intact. Sensory grossly intact. Vital Signs: 03:03 Temp 98.1(O); Weight 76.66 kg (R); Height 5 ft. 2 in. (157.48 cm) (R); Pain 4/10; bb 03:05 BP 131 / 70; Pulse 78; Resp 16 S; Pulse Ox 100% on R/A; cc3 03:03 Body Mass Index 30.91 (76.66 kg, 157.48 cm) bb MDM: 03:19 Patient medically screened. ps1 Administered Medications: No medications were administered Disposition: 03/14/19 03:19 Discharged to Home. Impression: Cough. - Condition is Stable. - Discharge Instructions: Cough, Adult, [id number]. - Prescriptions for Tessalon Perles 100 mg Oral Capsule - take 1 capsule by ORAL route every 8 hours As needed; 15 capsule. - Medication Reconciliation Form, Thank You Letter, Antibiotic Education, Prescription Opioid Use form. - Follow up: Private Physician; When: As needed; Reason: Re-evaluation by your physician. Follow up: Emergency Department; When: As needed; Reason: Fever > 102 F, Worsening of condition. Signatures: Mercy Saini RN RN bb Warren Humphrey MD MD ps1 Jaz Jones cc3 Corrections: (The following items were deleted from the chart) 03:28 03:19 03/14/2019 03:19 Discharged to Home. Impression: Cough. Condition is Stable. cc3 Forms are Medication Reconciliation Form, Thank You Letter, Antibiotic Education, Prescription Opioid Use. Follow up: Private Physician; When: As needed; Reason: Re-evaluation by your physician. Follow up: Emergency Department; When: As needed; Reason: Fever > 102 F, Worsening of condition. ps1
[2019-03-14 03:51] VITALS: TEMP 98.1
== END 2019-03-14 03:28 | disposition home or self-care (01) ==
LOC: ER 02:42
DX: R05 Cough (principal); Z88.6 Allergy status to analgesic agent; Z91.018 Allergy to other foods
CPT/HCPCS: 99283

== ENCOUNTER 2019-05-19 09:41 | Emergency (ER) | payer MEDICAID ==
--- OUTSIDE RECORDS SUMMARY | 2019-05-19 09:43 | XMS REPORT ---
:1990 [facility] Address [address] [place] [address] [address]. [address] [place] [address] Care Team Providers Name Role Phone Unavailable Unavailable Unavailable Problems This patient has no known problems. Allergies, Adverse Reactions, Alerts This patient has no known allergies or adverse reactions. Medications This patient has no known medications.
--- NOTE | 2019-05-19 10:48 | ER ---
Nurse's Notes [facility] Name: Suraj Fuentes Age: 28 yrs Sex: Female : 1990 Arrival Date: 05/19/2019 Time: 09:43 Bed 16 Private MD: Diagnosis: Acute pharyngitis Presentation: 05/19 10:03 Presenting complaint: Patient states: sore throat that began last night and suprapubic ss discomfort that began 1 day ago. Transition of care: patient was not received from another setting of care. Onset of symptoms was May 18, 2019. Risk Assessment: Do you want to hurt yourself or someone else? Patient reports no desire to harm self or others. Initial Sepsis Screen: Does the patient meet any 2 criteria? No. Patient's initial sepsis screen is negative. Does the patient have a suspected source of infection? No. Patient's initial sepsis screen is negative. Care prior to arrival: None. 10:03 Method Of Arrival: Ambulatory ss 10:03 Acuity: SHAW 4 ss RESISTOR COATER: 10:05 LMP 05/03/2019 ss Historical: - Allergies: 10:05 Ibuprofen; ss 10:05 ORANGES; ss - PSHx: 10:05 Appendectomy; ; ss - Immunization history:: Adult Immunizations up to date. - Social history:: Smoking status: Patient/guardian denies using tobacco. - Ebola Screening: : Patient denies exposure to infectious person Patient denies travel to an Ebola-affected area in the 21 days before illness onset. Screenin:00 Abuse screen: Denies threats or abuse. Nutritional screening: No deficits noted. rb1 Tuberculosis screening: No symptoms or risk factors identified. Fall Risk None identified. Assessment: 10:00 General: Appears in no apparent distress. comfortable, Behavior is calm, cooperative, rb1 Denies fever. Pain: Complains of pain in suprapubic area Pain currently is 6 out of 10 on a pain scale. Pain began 1 day ago. Neuro: Level of Consciousness is awake, alert, obeys commands, Oriented to person, place, time, situation. Cardiovascular: Capillary refill < 3 seconds is brisk in bilateral fingers. Respiratory: Airway is patent Respiratory effort is even, unlabored, Respiratory pattern is regular, symmetrical. GI: Bowel sounds present X 4 quads. Abd is soft in suprapubic area. : No signs and/or symptoms were reported regarding the genitourinary system. Derm: Skin is pink, warm \T\ dry. 11:00 Reassessment: Patient appears in no apparent distress at this time. No changes from rb1 previously documented assessment. Vital Signs: 10:05 BP 141 / 78; Pulse 67; Resp 16; Temp 97.8(TE); Pulse Ox 99% on R/A; Weight 80.74 kg; ss Height 5 ft. 2 in. (157.48 cm); Pain 5/10; 10:59 BP 126 / 81; Pulse 76; Resp 17; Temp 98.2(O); Pulse Ox 100% on R/A; Pain 5/10; rb1 10:05 Body Mass Index 32.56 (80.74 kg, 157.48 cm) ED Course: 09:43 Patient arrived in ED. rg4 09:55 Christine Solares FNP-C is [facility]. kb 09:55 Zane Herring MD is Attending Physician. kb 10:00 Patient has correct armband on for positive identification. Bed in low position. Call rb1 light in reach. Side rails up X 1. Pulse ox on. NIBP on. Warm blanket given. 10:04 Triage completed. 10:05 Arm band placed on right wrist. 10:17 Dotty Chacon, RN is Primary Nurse. rb1 11:06 No provider procedures requiring assistance completed. Patient did not have IV access rb1 during this emergency room visit. Administered Medications: No medications were administered Outcome: 10:47 Discharge ordered by . kb 11:06 Discharged to home ambulatory. rb1 11:06 Condition: stable 11:06 Discharge instructions given to patient, Instructed on discharge instructions, follow up and referral plans. Demonstrated understanding of instructions, follow-up care, Prescriptions given X none 11:08 Patient left the ED. [facility] Signatures: Christine Solares FNP-C FNP-Rita Marvin RN RN Dotty Chacon, RN RN rb1 Saray Neil rg4
--- NOTE | 2019-05-19 10:49 | EDPHYS ---
Physician Documentation [facility] Name: Suraj Fuentes Age: 28 yrs Sex: Female : 1990 Arrival Date: 05/19/2019 Time: 09:43 Bed 16 Private MD: ED Physician Zane Herring HPI: 05/19 10:31 This 28 yrs old Female presents to ER via Ambulatory with complaints of kb Abdominal Pain, Sore Throat. 10:31 The patient presents with abdominal pain in the lower abdomen. Onset: The kb symptoms/episode began/occurred yesterday. The symptoms do not radiate. Associated signs and symptoms: Pertinent positives: sore throat, Pertinent negatives: nausea, vomiting, and diarrhea, fever. The symptoms are described as intermittent. Modifying factors: The symptoms are alleviated by nothing, the symptoms are aggravated by nothing. Severity of pain: At its worst the pain was mild moderate in the emergency department the pain is unchanged. The patient has not experienced similar symptoms in the past. The patient has not recently seen a physician. 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 - Social history:: Smoking status: Patient/guardian denies using tobacco. - Ebola Screening: : Patient denies exposure to infectious person Patient denies travel to an Ebola-affected area in the 21 days before illness onset. ROS: 10:30 Constitutional: Negative for fever, chills, and weight loss, Cardiovascular: Negative kb for chest pain, palpitations, and edema, Respiratory: Negative for shortness of breath, cough, wheezing, and pleuritic chest pain, Back: Negative for injury and pain, : Negative for injury, bleeding, discharge, and swelling, MS/Extremity: Negative for injury and deformity, Skin: Negative for injury, rash, and discoloration, Neuro: Negative for headache, weakness, numbness, tingling, and seizure. 10:30 ENT: Positive for sore throat. 10:30 Abdomen/GI: Positive for abdominal pain, Negative for nausea, vomiting, and diarrhea, constipation, abdominal cramps, abdominal distension, anorexia. Exam: 10:30 Constitutional: This is a well developed, well nourished patient who is awake, alert, kb and in no acute distress. Head/Face: Normocephalic, atraumatic. ENT: Nares patent. No nasal discharge, no septal abnormalities noted. Tympanic membranes are normal and external auditory canals are clear. Oropharynx with no redness, swelling, or masses, exudates, or evidence of obstruction, uvula midline. Mucous membranes moist. Neck: Trachea midline, no thyromegaly or masses palpated, and no cervical lymphadenopathy. Supple, full range of motion without nuchal rigidity, or vertebral point tenderness. No Meningismus. Chest/axilla: Normal chest wall appearance and motion. Nontender with no deformity. No lesions are appreciated. Cardiovascular: Regular rate and rhythm with a normal S1 and S2. No gallops, murmurs, or rubs. Normal PMI, no JVD. No pulse deficits. Respiratory: Lungs have equal breath sounds bilaterally, clear to auscultation and percussion. No rales, rhonchi or wheezes noted. No increased work of breathing, no retractions or nasal flaring. Back: No spinal tenderness. No costovertebral tenderness. Full range of motion. Skin: Warm, dry with normal turgor. Normal color with no rashes, no lesions, and no evidence of cellulitis. MS/ Extremity: Pulses equal, no cyanosis. Neurovascular intact. Full, normal range of motion. Neuro: Awake and alert, GCS 15, oriented to person, place, time, and situation. Cranial nerves II-XII grossly intact. Motor strength 5/5 in all extremities. Sensory grossly intact. Cerebellar exam normal. Normal gait. 10:30 Abdomen/GI: Inspection: abdomen appears normal, Bowel sounds: normal, in all quadrants, Palpation: soft, in all quadrants, mild abdominal tenderness, in the right lower quadrant and left lower quadrant. Vital Signs: 10:05 BP 141 / 78; Pulse 67; Resp 16; Temp 97.8(TE); Pulse Ox 99% on R/A; Weight 80.74 kg; ss Height 5 ft. 2 in. (157.48 cm); Pain 5/10; 10:59 BP 126 / 81; Pulse 76; Resp 17; Temp 98.2(O); Pulse Ox 100% on R/A; Pain 5/10; rb1 10:05 Body Mass Index 32.56 (80.74 kg, 157.48 cm) MDM: 10:02 Patient medically screened. kb 10:30 Data reviewed: vital signs, nurses notes. Data interpreted: Pulse oximetry: on room air kb is 99 %. Interpretation: normal. Counseling: I had a detailed discussion with the patient and/or guardian regarding: the historical points, exam findings, and any diagnostic results supporting the discharge/admit diagnosis, lab results, the need for outpatient follow up, a family practitioner, to return to the emergency department if symptoms worsen or persist or if there are any questions or concerns that arise at home. 05/19 10:12 Order name: Strep; Complete Time: 10:45 kb 05/19 10:30 Order name: Urine Dipstick--Ancillary (enter results) ag 05/19 10:12 Order name: Urine Dipstick-Ancillary (obtain specimen); Complete Time: 11:08 kb 05/19 10:12 Order name: Urine Test (obtain specimen); Complete Time: 11:08 kb 05/19 10:30 Order name: Urine --Ancillary (enter results) 05/19 10:59 Order name: Throat Culture EDMS Administered Medications: No medications were administered Disposition: 13:16 Co-signature as Attending Physician, Zane Herring MD. rn Disposition: 05/19/19 10:47 Discharged to Home. Impression: Acute pharyngitis. - Condition is Stable. - Discharge Instructions: Pharyngitis, Hjkm-[id number], Viral Respiratory Infection, [id number]. - Medication Reconciliation Form, Thank You Letter, Antibiotic Education, Prescription Opioid Use form. - Follow up: Emergency Department; When: As needed; Reason: Worsening of condition. Follow up: Private Physician; When: 2 - 3 days; Reason: Recheck today's complaints, Continuance of care, Re-evaluation by your physician. Signatures: Dispatcher [employer] EDMS Christine Solares, TRIAL JUDGE-Clarice WATERSP-Zane Garcia MD MD rn Smirch, Shelby, RN RN Dotty Chamorro RN RN rb1 Corrections: (The following items were deleted from the chart) 11:08 10:47 05/19/2019 10:47 Discharged to Home. Impression: Acute pharyngitis. Condition is rb1 Stable. Forms are Medication Reconciliation Form, Thank You Letter, Antibiotic Education, Prescription Opioid Use. Follow up: Emergency Department; When: As needed; Reason: Worsening of condition. Follow up: Private Physician; When: 2 - 3 days; Reason: Recheck today's complaints, Continuance of care, Re-evaluation by your physician. kb
[2019-05-19 11:16] VITALS: BP 126/81; TEMP 98.2; O2SAT 100
[2019-05-19 13:54] LABS: Urine Blood NEGATIVE (NEG); Urine Glucose NEGATIVE (NEG); Urine Protein TRACE (NEG); Urine Specific Gravity 1.025 (1.005-1.030)
[2019-05-19 13:55] LABS: Urine Specific Gravity 1.025 (1.005-1.030)
== END 2019-05-19 11:08 | disposition home or self-care (01) ==
LOC: ER 09:41
DX: J02.9 Acute pharyngitis, unspecified (principal); R10.30 Lower abdominal pain, unspecified; Z88.6 Allergy status to analgesic agent; Z91.018 Allergy to other foods
CPT/HCPCS: 81003; 81025; 87070; 87081; 99283

== ENCOUNTER 2019-06-12 03:43 | Emergency (ER) | payer MEDICAID ==
--- OUTSIDE RECORDS SUMMARY | 2019-06-12 03:47 | XMS REPORT ---
:1990 [facility] [address] [place] [address] [address] [place] [address] Care Team Providers Name Role Phone Unavailable Unavailable Unavailable Problems This patient has no known problems. Allergies, Adverse Reactions, Alerts This patient has no known allergies or adverse reactions. Medications This patient has no known medications.
[2019-06-12] MEDS ORDERED: ASPIRIN 81 MG CHEWABLE TABLET ONE (04:19)
[2019-06-12 04:26] LABS: MPV 8.5 fL (7.6-11.3)
[2019-06-12 04:30] LABS: Absolute Lymphocytes (CBC) 2.6 K/uL (0.7-4.9); Basophils % 0.5 % (0-1.3); Hematocrit 43.6 % (36.0-45.0); Lymphocytes % 29.9 % (15.3-44.8); Monocytes % 5.4 % (3.3-12.3); RBC Red Blood Cell Count 4.94 M/uL (3.86-4.86)
[2019-06-12 04:36] LABS: Protime INR 0.99
[2019-06-12 04:38] LABS: ALT/SGPT 30 U/L (12-78); AST/SGOT 18 U/L (15-37); Albumin 4.1 g/dL (3.4-5.0); Alkaline Phosphatase 90 U/L (45-117); BUN Blood Urea Nitrogen 8 mg/dL (7-18); Bicarbonate 25 mmol/L (21-32); Bilirubin Direct 0.1 mg/dL (0-0.2); Bilirubin Total 0.5 mg/dL (0.2-1.0); Glucose Level 106 mg/dL (74-106); Magnesium 2.1 mg/dL (1.8-2.4); NT PRO-BNP 35 pg/mL (<125); Potassium 3.8 mmol/L (3.5-5.1); Protein, Total 7.7 g/dL (6.4-8.2); Sodium Level 140 mmol/L (136-145); Troponin (Emerg Dept Use Only) < 0.02 ng/mL (0.0-0.045)
--- NOTE | 2019-06-12 04:49 | ER ---
Nurse's Notes [facility] Name: Suraj Fuentes Age: 28 yrs Sex: Female : 1990 Arrival Date: 06/12/2019 Time: 03:45 Bed 6 Private MD: Diagnosis: Chest pain, unspecified;Chondrocostal junction syndrome [Tietze] Presentation: 06/12 03:52 Presenting complaint: Patient states: she has been having chest pain since yesterday bb but it is worsening pain is intermittent, she has nausea, first her right arm was hurting but now her left arm is hurting. Transition of care: patient was not received from another setting of care. Onset of symptoms was June 10, 2019. Risk Assessment: Do you want to hurt yourself or someone else? Patient reports no desire to harm self or others. Initial Sepsis Screen: Does the patient meet any 2 criteria? No. Patient's initial sepsis screen is negative. Does the patient have a suspected source of infection? No. Patient's initial sepsis screen is negative. Care prior to arrival: None. 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 - Social history:: Smoking status: Patient/guardian denies using tobacco. - Ebola Screening: : No symptoms or risks identified at this time. - Family history:: not pertinent. Screenin:02 Abuse screen: Denies threats or abuse. Denies injuries from another. Nutritional rr5 screening: No deficits noted. Tuberculosis screening: No symptoms or risk factors identified. Fall Risk IV access (20 points). Total Chaidez Fall Scale indicates No Risk (0-24 pts). Assessment: 04:00 General: Appears in no apparent distress. uncomfortable, Behavior is calm, cooperative, rr5 appropriate for age. 04:00 Pain: Complains of pain in right chest Pain radiates to left chest Pain currently is 10 rr5 out of 10 on a pain scale. Quality of pain is described as aching, Pain began 1 day ago. Is intermittent. Neuro: Level of Consciousness is awake, alert, obeys commands, Oriented to person, place, time, situation, Appropriate for age. Cardiovascular: Reports chest pain, Capillary refill < 3 seconds Patient's skin is warm and dry. Rhythm is sinus rhythm. Respiratory: Airway is patent Respiratory effort is even, unlabored, Respiratory pattern is regular, symmetrical. GI: No signs and/or symptoms were reported involving the gastrointestinal system. : No signs and/or symptoms were reported regarding the genitourinary system. EENT: No signs and/or symptoms were reported regarding the EENT system. Derm: Skin is intact, Skin temperature is warm. Musculoskeletal: Capillary refill < 3 seconds, Range of motion: intact in all extremities. 04:54 Reassessment: Patient appears in no apparent distress at this time. Patient is alert, rr5 oriented x 3, equal unlabored respirations, skin warm/dry/pink. discharge instruction given and explained without complaints made. Vital Signs: 03:54 BP 125 / 84; Pulse 73; Resp 16 S; Temp 98.4(O); Pulse Ox 98% on R/A; Weight 79.38 kg bb (R); Height 5 ft. 2 in. (157.48 cm) (R); Pain 10/10; 04:25 BP 127 / 81; Pulse 70; Resp 17; Pulse Ox 99% ; rr5 04:54 BP 116 / 68; Pulse 75; Resp 17; Pulse Ox 99% on R/A; rr5 03:54 Body Mass Index 32.01 (79.38 kg, 157.48 cm) bb ED Course: 03:45 Patient arrived in ED. do 03:47 Pancho Greene MD is Attending Physician. jessica 03:53 Triage completed. bb 03:54 Arm band placed on Patient placed in an exam room, on a stretcher, on nurse monitoring, bb on pulse oximetry. EKG completed in triage. Results shown to MD. Family accompanied patient. 03:55 EKG done, by ED staff, reviewed by Pancho Greene MD. rr5 03:57 Kenroy Chan, ALFONZO is Primary Nurse. rr5 04:00 Inserted saline lock: 20 gauge in right forearm, using aseptic technique. Blood rr5 collected. 04:00 No provider procedures requiring assistance completed. Patient maintains SpO2 rr5 saturation greater than 95% on room air. 04:02 Patient has correct armband on for positive identification. Placed in gown. Bed in low rr5 position. Call light in reach. Side rails up X2. cardiac monitor on. Pulse ox on. NIBP on. Lights dimmed. Warm blanket given. 04:10 X-ray completed. Portable x-ray completed in exam room. Patient tolerated procedure kw well. 04:11 XRAY Chest (1 view) In Process Unspecified. EDMS 04:55 IV discontinued, intact, bleeding controlled, No redness/swelling at site. Pressure rr5 dressing applied. Administered Medications: 04:06 Drug: Aspirin 81 mg Route: PO; rr5 04:55 Follow up: Response: No adverse reaction rr5 Outcome: 04:48 Discharge ordered by . jessica 04:55 Discharged to home ambulatory. rr5 04:55 Condition: stable 04:55 Discharge instructions given to patient, Instructed on discharge instructions, follow up and referral plans. medication usage, Demonstrated understanding of instructions, follow-up care, medications, Prescriptions given X 1. 05:03 Patient left the ED. rr5 Signatures: Dispatcher [employer] EDPancho Edward MD MD cha Ballard, Brenda, RN RN Diamond Monge Danielle do Roque, Raymond, RN RN rr5
--- NOTE | 2019-06-12 04:50 | EDPHYS ---
Physician Documentation [facility] Name: Suraj Fuentes Age: 28 yrs Sex: Female : 1990 Arrival Date: 06/12/2019 Time: 03:45 Bed 6 Private MD: ED Physician Pancho Greene HPI: 06/12 03:55 This 28 yrs old Female presents to ER via Ambulatory with complaints of Chest jessica Pain. 03:55 The patient or guardian reports chest pain that is located primarily in the anterior jessica chest wall, bilaterally. The pain does not radiate. Associated signs and symptoms: The patient has no apparent associated signs or symptoms. The chest pain is described as aching. Duration: The patient or guardian reports multiple episodes, with no pattern. Modifying factors: The symptoms are alleviated by remaining still, the symptoms are aggravated by breathing, movement, palpation of area, walking. Severity of pain: At its worst the pain was moderate in the emergency department the pain is unchanged. The patient has not experienced similar symptoms in the past. 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 - Social history:: Smoking status: Patient/guardian denies using tobacco. - Ebola Screening: : No symptoms or risks identified at this time. - Family history:: not pertinent. ROS: 03:55 Constitutional: Negative for fever, chills, and weight loss, Eyes: Negative for injury, jessica pain, redness, and discharge, ENT: Negative for injury, pain, and discharge, Neck: Negative for injury, pain, and swelling, Respiratory: Negative for shortness of breath, cough, wheezing, and pleuritic chest pain, Abdomen/GI: Negative for abdominal pain, nausea, vomiting, diarrhea, and constipation, Back: Negative for injury and pain, : Negative for injury, bleeding, discharge, and swelling, MS/Extremity: Negative for injury and deformity, Skin: Negative for injury, rash, and discoloration, Neuro: Negative for headache, weakness, numbness, tingling, and seizure, Psych: Negative for depression, anxiety, suicide ideation, homicidal ideation, and hallucinations, Allergy/Immunology: Negative for hives, rash, and allergies, Endocrine: Negative for neck swelling, polydipsia, polyuria, polyphagia, and marked weight changes, Hematologic/Lymphatic: Negative for swollen nodes, abnormal bleeding, and unusual bruising. 03:55 Cardiovascular: Positive for chest pain, of the chest. Exam: 03:55 Constitutional: This is a well developed, well nourished patient who is awake, alert, jessica and in no acute distress. Head/Face: Normocephalic, atraumatic. Eyes: Pupils equal round and reactive to light, extra-ocular motions intact. Lids and lashes normal. Conjunctiva and sclera are non-icteric and not injected. Cornea within normal limits. Periorbital areas with no swelling, redness, or edema. ENT: Nares patent. No nasal discharge, no septal abnormalities noted. Tympanic membranes are normal and external auditory canals are clear. Oropharynx with no redness, swelling, or masses, exudates, or evidence of obstruction, uvula midline. Mucous membranes moist. Neck: Trachea midline, no thyromegaly or masses palpated, and no cervical lymphadenopathy. Supple, full range of motion without nuchal rigidity, or vertebral point tenderness. No Meningismus. Cardiovascular: Regular rate and rhythm with a normal S1 and S2. No gallops, murmurs, or rubs. Normal PMI, no JVD. No pulse deficits. Respiratory: Lungs have equal breath sounds bilaterally, clear to auscultation and percussion. No rales, rhonchi or wheezes noted. No increased work of breathing, no retractions or nasal flaring. Abdomen/GI: Soft, non-tender, with normal bowel sounds. No distension or tympany. No guarding or rebound. No evidence of tenderness throughout. Back: No spinal tenderness. No costovertebral tenderness. Full range of motion. Skin: Warm, dry with normal turgor. Normal color with no rashes, no lesions, and no evidence of cellulitis. MS/ Extremity: Pulses equal, no cyanosis. Neurovascular intact. Full, normal range of motion. Neuro: Awake and alert, GCS 15, oriented to person, place, time, and situation. Cranial nerves II-XII grossly intact. Motor strength 5/5 in all extremities. Sensory grossly intact. Cerebellar exam normal. Normal gait. 03:55 Chest/axilla: Inspection: normal, Palpation: tenderness, that is mild, of the anterior aspect of right upper chest, anterior aspect of left upper chest, right breast and left breast, Axilla: are normal, Breasts: are normal. 03:57 Musculoskeletal/extremity: DVT Exam: No signs of deep vein thrombosis. no pain, no jessica swelling, no tenderness, negative Homans' sign noted on exam, no appreciated bluish discoloration, no erythema, no increased warmth. Vital Signs: 03:54 BP 125 / 84; Pulse 73; Resp 16 S; Temp 98.4(O); Pulse Ox 98% on R/A; Weight 79.38 kg bb (R); Height 5 ft. 2 in. (157.48 cm) (R); Pain 10/10; 04:25 BP 127 / 81; Pulse 70; Resp 17; Pulse Ox 99% ; rr5 04:54 BP 116 / 68; Pulse 75; Resp 17; Pulse Ox 99% on R/A; rr5 03:54 Body Mass Index 32.01 (79.38 kg, 157.48 cm) MDM: 03:49 Patient medically screened. [facility] 04:48 Data reviewed: vital signs, nurses notes, lab test result(s), EKG, radiologic studies, jessica plain films. 06/12 03:54 Order name: Basic Metabolic Panel; Complete Time: 04:48 [facility] 06/12 03:54 Order name: CBC with Diff; Complete Time: 04:48 [facility] 06/12 03:54 Order name: LFT's; Complete Time: 04:48 [facility] 06/12 03:54 Order name: Magnesium; Complete Time: 04:48 [facility] 06/12 03:54 Order name: NT PRO-BNP; Complete Time: 04:48 [facility] 06/12 03:54 Order name: PT-INR; Complete Time: 04:48 [facility] 06/12 03:54 Order name: Troponin (emerg Dept Use Only); Complete Time: 04:48 [facility] 06/12 03:54 Order name: XRAY Chest (1 view) [facility] 06/12 03:54 Order name: EKG; Complete Time: 03:57 [facility] 06/12 03:54 Order name: Cardiac monitoring; Complete Time: 04:01 [facility] 06/12 03:54 Order name: EKG - Nurse/Tech; Complete Time: 04:01 [facility] 06/12 03:54 Order name: D-Dimer; Complete Time: 04:48 [facility] 06/12 03:54 Order name: IV Saline Lock; Complete Time: 04:01 [facility] 06/12 03:54 Order name: Labs collected and sent; Complete Time: 04:01 [facility] 06/12 03:54 Order name: O2 Per Protocol; Complete Time: 04: [facility] 06/12 03:54 Order name: O2 Sat Monitoring; Complete Time: 04:01 [facility] Administered Medications: 04:06 Drug: Aspirin 81 mg Route: PO; rr5 04:55 Follow up: Response: No adverse reaction rr5 Disposition: 06/12/19 04:48 Discharged to Home. Impression: Chest pain, unspecified, Chondrocostal junction syndrome [Tietze]. - Condition is Stable. - Discharge Instructions: Nonspecific Chest Pain, Chest Wall Pain, Costochondritis, Chest Wall Pain, [id number], Nonspecific Chest Pain, Xxia-rt-[id number], Aspirin and Your Heart. - Prescriptions for Tylenol- Codeine #3 300-30 mg Oral Tablet - take 2 tablets by ORAL route every 6 hours As needed; 20 tablet. - Medication Reconciliation Form, Thank You Letter, Antibiotic Education, Prescription Opioid Use form. - Follow up: Private Physician; When: 2 - 3 days; Reason: Recheck today's complaints, Continuance of care, Re-evaluation by your physician. - Problem is new. - Symptoms have improved. Signatures: Dispatcher [employer] EDTX Pancho Greene MD MD cha Ballard, Brenda, ALFONZO RN Kenroy Clemens RN RN rr5 Corrections: (The following items were deleted from the chart) 05:03 04:48 06/12/2019 04:48 Discharged to Home. Impression: Chest pain, unspecified; rr5 Chondrocostal junction syndrome [Tietze]. Condition is Stable. Discharge Instructions: Nonspecific Chest Pain, Chest Wall Pain, Costochondritis, Chest Wall Pain, Xwgi-[id number], Nonspecific Chest Pain, Zkwz-we-Drll, Aspirin and Your Heart. Prescriptions for Tylenol-Codeine #3 300-30 mg Oral Tablet - take 2 tablets by ORAL route every 6 hours As needed; 20 tablet. and Forms are Medication Reconciliation Form, Thank You Letter, Antibiotic Education, Prescription Opioid Use. Follow up: Private Physician; When: 2 - 3 days; Reason: Recheck today's complaints, Continuance of care, Re-evaluation by your physician. Problem is new. Symptoms have improved. jessica
[2019-06-12 05:10] VITALS: TEMP 98.4
[2019-06-12 05:11] VITALS: O2SAT 99
[2019-06-12 05:12] VITALS: BP 116/68
--- NOTE | 2019-06-12 07:58 | RAD REPORT ---
EXAM DESCRIPTION: Yaya Single View06/12/2019 4:13 am CLINICAL HISTORY: Chest pain COMPARISON: February 2019 FINDINGS: The lungs appear clear of acute infiltrate. The heart is normal size IMPRESSION: No acute abnormalities displayed
--- NOTE | 2019-06-12 15:38 | EKG ---
Test Date: 2019-06-12 Test Time: 03:50:20 Animal Physiologist: TR MEASUREMENT RESULTS: Intervals: Rate: 65 CO: 136 QRSD: 80 QT: 412 QTc: 428 [place]: P: 52 CO: 136 QRS: 79 T: 36 INTERPRETIVE STATEMENTS: Normal sinus rhythm Normal ECG Compared to ECG 03/08/2019 11:42:48 Sinus bradycardia no longer present Sinus arrhythmia no longer present Electronically Signed On 06-12-19 15:35:30 CDT by Bulmaro Amador
== END 2019-06-12 05:03 | disposition home or self-care (01) ==
LOC: ER 03:43
DX: M94.0 Chondrocostal junction syndrome [Tietze] (principal)
CPT/HCPCS: 36415; 71045; 80048; 80076; 83735; 83880; 84484; 85025; 85379; 85610; 93005; 99285

== ENCOUNTER 2019-07-23 08:17 | Emergency (ER) | payer MEDICAID ==
--- OUTSIDE RECORDS SUMMARY | 2019-07-23 08:19 | XMS REPORT ---
:1990 [facility] [address] [place] [address] [address] [place] [address] Care Team Providers Name Role Phone Unavailable Unavailable Unavailable Problems This patient has no known problems. Allergies, Adverse Reactions, Alerts This patient has no known allergies or adverse reactions. Medications This patient has no known medications.
[2019-07-23] MEDS ORDERED: MORPHINE 4 MG/ML SYR ONE (09:02)
[2019-07-23] MEDS ORDERED: NA CHLORIDE 0.9% 1,000 ML ONE (09:02)
[2019-07-23] MEDS ORDERED: ONDANSETRON 4 MG/2 ML VIAL ONE (09:02)
[2019-07-23 09:12] LABS: Basophils % 0.2 % (0-1.3); Hematocrit 42.4 % (36.0-45.0); Lymphocytes % 24.9 % (15.3-44.8); MPV 8.7 fL (7.6-11.3); RBC Red Blood Cell Count 4.72 M/uL (3.86-4.86)
[2019-07-23 09:38] LABS: Albumin 3.9 g/dL (3.4-5.0); Bilirubin Direct 0.1 mg/dL (0-0.2); Bilirubin Total 0.5 mg/dL (0.2-1.0); Potassium 3.7 mmol/L (3.5-5.1); Protein, Total 7.4 g/dL (6.4-8.2)
[2019-07-23] MEDS ORDERED: PROMETHAZINE 25 MG/ML VIAL ONE (10:32)
[2019-07-23] MEDS ORDERED: MORPHINE 2 MG/ML SYR ONE (10:33)
--- NOTE | 2019-07-23 11:05 | ER ---
Nurse's Notes [facility] Name: Suraj Fuentes Age: 28 yrs Sex: Female : 1990 Arrival Date: 07/23/2019 Time: 08:18 Bed 14 Private MD: Diagnosis: Vomiting, unspecified;Diarrhea, unspecified;Unspecified abdominal pain Presentation: 07/23 08:25 Presenting complaint: Patient states: generally not feeling well x 3 days and vomiting ss with generalized abd pain since this AM. Transition of care: patient was not received from another setting of care. Onset of symptoms was July 20, 2019. Risk Assessment: Do you want to hurt yourself or someone else? Patient reports no desire to harm self or others. Initial Sepsis Screen: Does the patient meet any 2 criteria? No. Patient's initial sepsis screen is negative. Does the patient have a suspected source of infection? No. Patient's initial sepsis screen is negative. Care prior to arrival: None. 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 - Social history:: Smoking status: Patient/guardian denies using tobacco, Patient/guardian denies using alcohol, street drugs. - Ebola Screening: : Patient denies exposure to infectious person Patient denies travel to an Ebola-affected area in the 21 days before illness onset. Screenin:25 Nutritional screening: No deficits noted. Tuberculosis screening: No symptoms or risk rb1 factors identified. Fall Risk None identified. 08:28 Abuse screen: Denies threats or abuse. Denies injuries from another. ss Assessment: 08:25 General: Appears in no apparent distress. comfortable, Behavior is calm, cooperative, rb1 Denies fever. Pain: Complains of pain in abdomen Pain currently is 10 out of 10 on a pain scale. Pain began this morning. Pt reports that the pain is from vomiting. Neuro: Level of Consciousness is awake, alert, obeys commands, Oriented to person, place, time, situation. Cardiovascular: Capillary refill < 3 seconds is brisk in bilateral fingers. Respiratory: Airway is patent Respiratory effort is even, unlabored, Respiratory pattern is regular, symmetrical. GI: Abdomen is non-distended, Reports nausea, vomiting, since this morning. : No signs and/or symptoms were reported regarding the genitourinary system. Derm: Skin is pink, warm \T\ dry. 09:20 Reassessment: Patient appears in no apparent distress at this time. No changes from rb1 previously documented assessment. Family at bedside. 10:20 Reassessment: Patient appears in no apparent distress at this time. Patient and/or rb1 family updated on plan of care and expected duration. Pain level reassessed. Patient is alert, oriented x 3, equal unlabored respirations, skin warm/dry/pink. Pain 7/10; provider notified. 11:17 Reassessment: Patient appears in no apparent distress at this time. Patient and/or ss family updated on plan of care and expected duration. Pain level reassessed. Patient is alert, oriented x 3, equal unlabored respirations, skin warm/dry/pink. Patient states feeling better. Patient states symptoms have improved. Vital Signs: 08:25 BP 141 / 88; Pulse 80; Resp 18; Temp 98.1(TE); Pulse Ox 99% on R/A; Weight 77.56 kg; ss Height 5 ft. 2 in. (157.48 cm); Pain 7/10; 09:20 BP 136 / 70; Pulse 67; Resp 17; Temp 98.3(O); Pulse Ox 96% ; Pain 7/10; rb1 10:20 BP 108 / 57; Pulse 69; Resp 16; Temp 98.2(O); Pulse Ox 98% on R/A; Pain 7/10; rb1 11:13 BP 129 / 69; Pulse 67; Resp 19; Temp 98.0(O); Pulse Ox 97% on R/A; rb1 08:25 Body Mass Index 31.28 (77.56 kg, 157.48 cm) ED Course: 08:18 Patient arrived in ED. mr 08:21 Christian Avendaño NP is PHCP. pm1 08:22 Sharath Rod MD is Attending Physician. pm1 08:22 Dotty Chacon, RN is Primary Nurse. rb1 08:25 Arm band placed on right wrist. ss 08:25 Patient has correct armband on for positive identification. Placed in gown. Bed in low rb1 position. Call light in reach. Side rails up X 1. Pulse ox on. NIBP on. Warm blanket given. 08:27 Triage completed. ss 08:48 Missed attempt(s): 22 gauge in right antecubital area. rb1 08:55 Inserted saline lock: 22 gauge in left antecubital area, using aseptic technique. Blood rb1 collected. 11:16 No provider procedures requiring assistance completed. IV discontinued, intact, ss bleeding controlled, No redness/swelling at site. Pressure dressing applied. Administered Medications: 09:10 Drug: NS 0.9% 1000 ml Route: IV; Rate: 1000 ml; Site: left antecubital; rb1 09:10 Drug: Zofran 4 mg Route: IVP; Site: left antecubital; rb1 09:25 Follow up: Response: No adverse reaction; Nausea is decreased rb1 09:10 Drug: morphine 4 mg Route: IVP; Site: left antecubital; rb1 09:25 Follow up: Response: No adverse reaction; Pain is decreased rb1 10:39 Drug: Phenergan 12.5 mg Route: IVP; Site: left antecubital; rb1 10:54 Follow up: Response: No adverse reaction; Nausea is decreased rb1 10:39 Drug: morphine 2 mg Route: IVP; Site: left antecubital; rb1 10:54 Follow up: Response: No adverse reaction; Pain is decreased rb1 Outcome: 10:55 Discharge ordered by MD. pm1 11:16 Discharged to home ambulatory, with family. ss 11:16 Condition: good 11:16 Discharge instructions given to patient, family, Instructed on discharge instructions, follow up and referral plans. medication usage, Demonstrated understanding of instructions, follow-up care, medications, Prescriptions given X 2. 11:17 Patient left the ED. Signatures: Jazz Ruelas Riat Meza RN RN ss Dotty Chacon, ALFONZO RN rb1 Christian Avendaño, MARY CARMEN INFORMATION TECHNOLOGY SECURITY ANALYST pm1 Corrections: (The following items were deleted from the chart) 16:25 11:20 BP 129 / 69; Pulse 67bpm; Resp 19bpm; Pulse Ox 97% RA; Temp 98.0F Oral; rb1 rb1 16:25 12:20 BP 116 / 72; Pulse 71bpm; Resp 15bpm; Pulse Ox 99% RA; Temp 98.1F Oral; rb1 rb1
--- NOTE | 2019-07-23 11:06 | EDPHYS ---
Physician Documentation [facility] Name: Suraj Fuentes Age: 28 yrs Sex: Female : 1990 Arrival Date: 07/23/2019 Time: 08:18 Bed 14 Private MD: ED Physician Sharath Rod HPI: 07/23 08:36 This 28 yrs old Female presents to ER via Ambulatory with complaints of pm1 Vomiting. 08:36 The patient presents to the emergency department with nausea, vomiting, diarrhea, pm1 abdominal pain. Onset: The symptoms/episode began/occurred 2 day(s) ago. Possible causes: sick contacts, by a friend. The symptoms are aggravated by nothing. The symptoms are alleviated by nothing. Associated signs and symptoms: Pertinent negatives: constipation, dysuria, fever. Severity of symptoms: in the emergency department the symptoms are unchanged. The patient has not experienced similar symptoms in the past. The patient has not recently seen a physician. 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 - Social history:: Smoking status: Patient/guardian denies using tobacco, Patient/guardian denies using alcohol, street drugs. - Ebola Screening: : Patient denies exposure to infectious person Patient denies travel to an Ebola-affected area in the 21 days before illness onset. ROS: 08:36 Constitutional: Negative for fever, chills, and weight loss, Eyes: Negative for injury, pm1 pain, redness, and discharge, ENT: Negative for injury, pain, and discharge, Neck: Negative for injury, pain, and swelling, Cardiovascular: Negative for chest pain, palpitations, and edema, Respiratory: Negative for shortness of breath, cough, wheezing, and pleuritic chest pain. 08:36 Back: Negative for injury and pain, : Negative for injury, bleeding, discharge, and swelling, MS/Extremity: Negative for injury and deformity, Skin: Negative for injury, rash, and discoloration, Neuro: Negative for headache, weakness, numbness, tingling, and seizure. 08:36 Abdomen/GI: Positive for abdominal pain, nausea, vomiting, and diarrhea, Negative for constipation. Exam: 08:36 Constitutional: This is a well developed, well nourished patient who is awake, alert, pm1 and in no acute distress. Head/Face: Normocephalic, atraumatic. Eyes: Pupils equal round and reactive to light, extra-ocular motions intact. Lids and lashes normal. Conjunctiva and sclera are non-icteric and not injected. Cornea within normal limits. Periorbital areas with no swelling, redness, or edema. ENT: Nares patent. No nasal discharge, no septal abnormalities noted. Tympanic membranes are normal and external auditory canals are clear. Oropharynx with no redness, swelling, or masses, exudates, or evidence of obstruction, uvula midline. Mucous membranes moist. Neck: Trachea midline, no thyromegaly or masses palpated, and no cervical lymphadenopathy. Supple, full range of motion without nuchal rigidity, or vertebral point tenderness. No Meningismus. Chest/axilla: Normal chest wall appearance and motion. Nontender with no deformity. No lesions are appreciated. Cardiovascular: Regular rate and rhythm with a normal S1 and S2. No gallops, murmurs, or rubs. Normal PMI, no JVD. No pulse deficits. Respiratory: Lungs have equal breath sounds bilaterally, clear to auscultation and percussion. No rales, rhonchi or wheezes noted. No increased work of breathing, no retractions or nasal flaring. 08:36 Back: No spinal tenderness. No costovertebral tenderness. Full range of motion. Skin: Warm, dry with normal turgor. Normal color with no rashes, no lesions, and no evidence of cellulitis. MS/ Extremity: Pulses equal, no cyanosis. Neurovascular intact. Full, normal range of motion. 08:36 Abdomen/GI: Inspection: abdomen appears normal, Bowel sounds: normal, Palpation: abdomen is soft and non-tender. 08:36 Neuro: Orientation: is normal, Motor: is normal, moves all fours. Vital Signs: 08:25 BP 141 / 88; Pulse 80; Resp 18; Temp 98.1(TE); Pulse Ox 99% on R/A; Weight 77.56 kg; ss Height 5 ft. 2 in. (157.48 cm); Pain 7/10; 09:20 BP 136 / 70; Pulse 67; Resp 17; Temp 98.3(O); Pulse Ox 96% ; Pain 7/10; rb1 10:20 BP 108 / 57; Pulse 69; Resp 16; Temp 98.2(O); Pulse Ox 98% on R/A; Pain 7/10; rb1 11:13 BP 129 / 69; Pulse 67; Resp 19; Temp 98.0(O); Pulse Ox 97% on R/A; rb1 08:25 Body Mass Index 31.28 (77.56 kg, 157.48 cm) ss MDM: 08:23 Patient medically screened. pm1 08:38 Data reviewed: vital signs. Data interpreted: Pulse oximetry: on room air is 99 %. pm1 Interpretation: normal. 10:48 Counseling: I had a detailed discussion with the patient and/or guardian regarding: the pm1 historical points, exam findings, and any diagnostic results supporting the discharge/admit diagnosis, lab results, the need for outpatient follow up, to return to the emergency department if symptoms worsen or persist or if there are any questions or concerns that arise at home. 07/23 08:31 Order name: Basic Metabolic Panel; Complete Time: 09:40 pm07/23 08:31 Order name: CBC with Diff; Complete Time: 09:40 pm07/23 08:31 Order name: Creatinine for Radiology; Complete Time: 09:40 pm07/23 08:31 Order name: Hepatic Function; Complete Time: 09:40 pm07/23 08:31 Order name: Lipase; Complete Time: 09:40 pm07/23 08:31 Order name: Flu; Complete Time: 09:40 pm07/23 08:31 Order name: IV Saline Lock; Complete Time: 09:16 pm07/23 10:41 Order name: Urine Dipstick--Ancillary (enter results) eb 07/23 10:41 Order name: Urine --Ancillary (enter results) eb 07/23 08:31 Order name: Labs collected and sent; Complete Time: 09:16 pm07/23 08:31 Order name: Urine Dipstick-Ancillary (obtain specimen); Complete Time: 10:55 pm07/23 08:31 Order name: Urine Test (obtain specimen); Complete Time: 09:16 pm1 Administered Medications: 09:10 Drug: NS 0.9% 1000 ml Route: IV; Rate: 1000 ml; Site: left antecubital; rb1 09:10 Drug: Zofran 4 mg Route: IVP; Site: left antecubital; rb1 09:25 Follow up: Response: No adverse reaction; Nausea is decreased rb1 09:10 Drug: morphine 4 mg Route: IVP; Site: left antecubital; rb1 09:25 Follow up: Response: No adverse reaction; Pain is decreased rb1 10:39 Drug: Phenergan 12.5 mg Route: IVP; Site: left antecubital; rb1 10:54 Follow up: Response: No adverse reaction; Nausea is decreased rb1 10:39 Drug: morphine 2 mg Route: IVP; Site: left antecubital; rb1 10:54 Follow up: Response: No adverse reaction; Pain is decreased rb1 Disposition: 14:50 Co-signature as Attending Physician, Sharath Rod MD I agree with the assessment and kdr plan of care. Disposition: 07/23/19 10:55 Discharged to Home. Impression: Vomiting, unspecified, Diarrhea, unspecified, Unspecified abdominal pain. - Condition is Stable. - Discharge Instructions: Abdominal Pain, Adult, Food Choices to Help Relieve Diarrhea, Adult, Nausea and Vomiting, Adult. - Prescriptions for Bentyl 20 mg Oral Tablet - take 1 tablet by ORAL route every 6 hours As needed; 20 tablet. promethazine 25 mg Oral Tablet - take 1 tablet by ORAL route every 6 hours As needed; 20 tablet. - Medication Reconciliation Form, Thank You Letter, Antibiotic Education, Prescription Opioid Use, Work release form form. - Follow up: Emergency Department; When: As needed; Reason: Worsening of condition. Follow up: Private Physician; When: 2 - 3 days; Reason: Recheck today's complaints, Continuance of care, Re-evaluation by your physician. - Problem is new. - Symptoms have improved. Signatures: Dispatcher [employer] EDSharath Reddy MD MD kdr Rita Meza RN RN ss Dotty Chacon RN RN rb1 Christian Avendaño, MARY CARMEN MUTUAL FUND MANAGER pm1 Corrections: (The following items were deleted from the chart) 11:17 10:55 07/23/2019 10:55 Discharged to Home. Impression: Vomiting, unspecified; Diarrhea, ss unspecified; Unspecified abdominal pain. Condition is Stable. Forms are Medication Reconciliation Form, Thank You Letter, Antibiotic Education, Prescription Opioid Use. Follow up: Emergency Department; When: As needed; Reason: Worsening of condition. Follow up: Private Physician; When: 2 - 3 days; Reason: Recheck today's complaints, Continuance of care, Re-evaluation by your physician. Problem is new. Symptoms have improved. pm1
[2019-07-23 12:02] VITALS: BP 108/57; TEMP 98.2; O2SAT 98
[2019-07-23 12:06] LABS: Urine Blood NEGATIVE (NEG); Urine Glucose NEGATIVE (NEG); Urine Protein NEGATIVE (NEG); Urine pH 7.5 (5.0-7.0)
== END 2019-07-23 11:17 | disposition home or self-care (01) ==
LOC: ER 08:17
DX: R19.7 Diarrhea, unspecified (principal); R10.9 Unspecified abdominal pain; Z88.6 Allergy status to analgesic agent; Z91.018 Allergy to other foods
CPT/HCPCS: 85025; 80048; 36415; 81025; 80076; 81003; 83690; 87804 ×2; 96375; 96374; 99284; J2550; J2270; J7030; J2405

== ENCOUNTER 2019-11-01 09:31 | Emergency (ER) | payer MEDICAID ==
--- OUTSIDE RECORDS SUMMARY | 2019-11-01 09:32 | XMS REPORT ---
:1990 [facility] Address [address] [place] [address] Dr. Lopez [address] [place] [id number] Care Team Providers Name Role Phone Unavailable Unavailable Unavailable Problems This patient has no known problems. Allergies, Adverse Reactions, Alerts This patient has no known allergies or adverse reactions. Medications This patient has no known medications.
[2019-11-01] MEDS ORDERED: ONDANSETRON 4 MG/2 ML VIAL ONE ×2 (10:07→11:36)
[2019-11-01] MEDS ORDERED: MORPHINE 4 MG/ML SYR ONE ×2 (10:07→10:44)
[2019-11-01] MEDS ORDERED: NA CHLORIDE 0.9% 1,000 ML ONE (10:07)
[2019-11-01] MEDS ORDERED: FAMOTIDINE 20 MG/2 ML VIAL IV ONE (10:07)
[2019-11-01 10:12] LABS: Absolute Lymphocytes (CBC) 0.8 K/uL (0.7-4.9); Basophils % 0.2 % (0-1.3); Hematocrit 44.4 % (36.0-45.0); Lymphocytes % 7.4 % (15.3-44.8); MPV 8.1 fL (7.6-11.3)
[2019-11-01 10:31] LABS: Albumin 3.9 g/dL (3.4-5.0); Bilirubin Direct 0.2 mg/dL (0-0.2); Bilirubin Total 0.8 mg/dL (0.2-1.0); Potassium 3.9 mmol/L (3.5-5.1); Protein, Total 7.3 g/dL (6.4-8.2)
[2019-11-01 10:42] LABS: Blood Morphology Comment NOT SEEN (NOT SEEN); Platelet Estimate ADEQ
[2019-11-01] MEDS ORDERED: NA CHLORIDE 0.9% 100 ML IV ONE (12:40)
[2019-11-01] MEDS ORDERED: METOCLOPRAMIDE 10 MG/2mL INJ ONE (12:40)
[2019-11-01] MEDS ORDERED: PROMETHAZINE 25 MG/ML VIAL ONE (12:46)
--- NOTE | 2019-11-01 12:53 | RAD REPORT ---
EXAM DESCRIPTION: CT - Abdomen Pelvis W Contrast - 11/01/2019 12:27 pm CLINICAL HISTORY: ABD PAIN COMPARISON: CT study August 2017, CT study December 2015 TECHNIQUE: Biphasic, helical CT imaging of the abdomen and pelvis was performed following 100 ml non -ionic IV contrast. No oral contrast. All CT scans are performed using dose optimization technique as appropriate and may include automated exposure control or mA/KV adjustment according to patient size. FINDINGS: No suspicious findings in the lung bases. The liver, spleen, and pancreas show no suspicious findings. Gallbladder and biliary tree are also wi thout suspicious finding. Symmetric renal function is seen with no hydronephrosis or suspicious renal mass. No pyelonephritis o r acute parenchymal process. No bladder abnormalities. No adrenal abnormalities. IUD is well position ed in a normal-sized uterus. No suspicious ovarian finding. Stomach is decompressed. No gastric wall thickening or mass. No duodenum abnormality. Several loops o f prominent fluid-filled small bowel are noted in the midline and right side abdomen. No bowel obstru ction. Appendix is surgically absent. Colon is not dilated. Sigmoid is redundant. Portion of the sigm oid that loops into the right mid abdomen shows mild wall thickening. No free air, pneumatosis or free fluid. No hernia, mass or bulky lymphadenopathy. No suspicious bony findings. IMPRESSION: No bowel obstruction, free air or surgically emergent finding. Prominent loops of small bowel in the right mid abdomen along with a segment of sigmoid colon showing mild wall thickening and edema. Findings are most likely infectious/inflammatory enteritis.
[2019-11-01 12:58] LABS: Urine Blood TRACE (NEG); Urine Glucose NEGATIVE (NEG); Urine Protein 1+ (NEG); Urine pH 8.5 (5.0-7.0)
[2019-11-01] MEDS ORDERED: CIPROFLOXACIN HCL 500 MG TAB ONE (13:31)
[2019-11-01] MEDS ORDERED: METHYLPREDNISOLONE 125 MG INJ ONE (13:31)
[2019-11-01] MEDS ORDERED: METRONIDAZOLE 500mg IVPB 500 MG/100 ML BAG IV ONE (13:31)
--- NOTE | 2019-11-01 14:36 | EDPHYS ---
Physician Documentation [facility] Name: Suraj Fuentes Age: 29 yrs Sex: Female : 1990 Arrival Date: 11/01/2019 Time: 09:33 Bed 5 Private MD: ED Physician Sharath Rod HPI: 11/01 10:01 This 29 yrs old Female presents to ER via Wheelchair with complaints of kdr Abdominal Pain, Vomiting. 10:01 The patient presents to the emergency department with nausea, that is moderate, kdr vomiting, that is intermittent, diarrhea, that is intermittent, abdominal pain, of the abdomen diffusely, described as achy, burning, crampy, dull, steady, vague,\\E\\. Onset: The symptoms/episode began/occurred this morning. Possible causes: unknown. The symptoms are aggravated by food , The symptoms are alleviated by nothing. Associated signs and symptoms: Pertinent positives: abdominal pain, nausea, vomiting, Pertinent negatives: anorexia, belching, constipation, dysuria, fever, GI bleeding, hematuria, vaginal discharge. Severity of symptoms: At their worst the symptoms were mild moderate in the emergency department the symptoms are unchanged. The patient has experienced similar episodes in the past, a few times. The patient has not recently seen a physician. 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 - Social history:: Smoking status: Patient/guardian denies using tobacco. - Ebola Screening: : Patient negative for fever greater than or equal to 101.5 degrees Fahrenheit, and additional compatible Ebola Virus Disease symptoms Patient denies exposure to infectious person Patient denies travel to an Ebola-affected area in the 21 days before illness onset No symptoms or risks identified at this time. ROS: 10:01 Constitutional: Negative for fever, chills, and weight loss, Eyes: Negative for injury, kdr pain, redness, and discharge, ENT: Negative for injury, pain, and discharge, Neck: Negative for injury, pain, and swelling, Cardiovascular: Negative for chest pain, palpitations, and edema, Respiratory: Negative for shortness of breath, cough, wheezing, and pleuritic chest pain, Back: Negative for injury and pain, : Negative for injury, bleeding, discharge, and swelling, MS/Extremity: Negative for injury and deformity, Skin: Negative for injury, rash, and discoloration, Neuro: Negative for headache, weakness, numbness, tingling, and seizure activity. Psych: Negative for depression, anxiety, suicide ideation, homicidal ideation, and hallucinations, Allergy/Immunology: Negative for hives, rash, and allergies, Endocrine: Negative for neck swelling, polydipsia, polyuria, polyphagia, and marked weight changes, Hematologic/Lymphatic: Negative for swollen nodes, abnormal bleeding, and unusual bruising. 10:01 Abdomen/GI: Positive for abdominal pain, nausea, vomiting, and diarrhea, Negative for constipation, abdominal cramps, abdominal distension, anorexia, dysphagia, hematemesis, black/tarry stool, rectal pain, rectal bleeding, bowel incontinence. Exam: 10:01 Constitutional: This is a well developed, well nourished patient who is awake, alert, kdr and in mild distress. Head/Face: Normocephalic, atraumatic. Eyes: Pupils equal round and reactive to light, extra-ocular motions intact. Lids and lashes normal. Conjunctiva and sclera are non-icteric and not injected. Cornea within normal limits. Periorbital areas with no swelling, redness, or edema. Neck: Trachea midline, no thyromegaly or masses palpated, and no cervical lymphadenopathy. Supple, full range of motion without nuchal rigidity, or vertebral point tenderness. No Meningismus. Chest/axilla: Normal chest wall appearance and motion. Nontender with no deformity. No lesions are appreciated. Cardiovascular: Regular rate and rhythm with a normal S1 and S2. No gallops, murmurs, or rubs. Normal PMI, no JVD. No pulse deficits. Respiratory: Lungs have equal breath sounds bilaterally, clear to auscultation and percussion. No rales, rhonchi or wheezes noted. No increased work of breathing, no retractions or nasal flaring. Back: No spinal tenderness. No costovertebral tenderness. Full range of motion. Skin: Warm, dry with normal turgor. Normal color with no rashes, no lesions, and no evidence of cellulitis. MS/ Extremity: Pulses equal, no cyanosis. Neurovascular intact. Full, normal range of motion. Neuro: Awake and alert, GCS 15, oriented to person, place, time, and situation. Cranial nerves II-XII grossly intact. Motor strength 5/5 in all extremities. Sensory grossly intact. Cerebellar exam normal. Normal gait. Psych: Awake, alert, with orientation to person, place and time. Behavior, mood, and affect are within normal limits. 10:01 Abdomen/GI: Inspection: abdomen appears normal, Bowel sounds: diminished, in all quadrants, Palpation: soft, mild abdominal tenderness, in all quadrants, mass, is not appreciated, rebound tenderness, is not appreciated, voluntary guarding, is not appreciated, involuntary guarding, is not appreciated. Vital Signs: 09:51 BP 117 / 74; Pulse 91; Resp 16 S; Temp 98.1; Pulse Ox 98% on R/A; Pain 10/10; iw 10:34 BP 102 / 59; Pulse 68; Resp 17; Pulse Ox 98% ; bp 11:48 BP 124 / 80; Pulse 67; Resp 16; Pulse Ox 98% ; bp 13:40 BP 101 / 59; Pulse 63; Resp 16; Pulse Ox 100% ; bp 15:01 BP 102 / 56; Pulse 63; Resp 16; Temp 98; Pulse Ox 100% ; bp MDM: 10:01 Differential diagnosis: gastritis, cholecystitis, pancreatitis. Data reviewed: vital kdr signs, nurses notes. 14:35 Patient medically screened. kdr 14:40 Special discussion: Based on the patient's Hx, exam, and Dx evaluation, there is no kdr indication for emergent surgery or inpatient Tx. It is understood by the patient/guardian that if the Sx's persist or worsen they need to return immediately for re-evaluation. 12 09:51 Order name: Basic Metabolic Panel; Complete Time: 10:46 kdr 12 09:51 Order name: CBC with Diff; Complete Time: 10:46 kdr 11/01 09:51 Order name: Creatinine for Radiology; Complete Time: 10:46 kdr 12 09:51 Order name: Hepatic Function; Complete Time: 10:46 kdr 11/01 09:51 Order name: Lipase; Complete Time: 10:46 kdr 11/01 10:42 Order name: Manual Differential; Complete Time: 10:46 EDMS 11/01 10:01 Order name: CT Abd/Pelvis - IV Contrast Only; Complete Time: 13:11 kdr 11/01 11:37 Order name: Urine Dipstick--Ancillary (enter results); Complete Time: 13:11 jb1 11/01 09:51 Order name: IV Saline Lock; Complete Time: 09:59 kdr 11/01 09:51 Order name: Labs collected and sent; Complete Time: 10:00 kdr 11/01 10:01 Order name: Urine Dipstick-Ancillary (obtain specimen); Complete Time: 11:38 kdr Administered Medications: 10:10 Drug: morphine 4 mg Route: IVP; Site: right antecubital; bp 10:45 Follow up: Response: No adverse reaction bp 10:10 Drug: Zofran 4 mg Route: IVP; Site: right antecubital; bp 10:45 Follow up: Response: No adverse reaction bp 10:10 Drug: NS 0.9% 1000 ml Route: IV; Rate: 1 bolus; Site: right antecubital; bp 15:03 Follow up: IV Status: Completed infusion; IV Intake: 1000ml bp 10:10 Drug: Pepcid 20 mg Route: IVP; Site: right antecubital; bp 10:45 Follow up: Response: Nausea is decreased bp 10:45 Drug: morphine 4 mg Route: IVP; Site: right antecubital; bp 11:48 Follow up: Response: No adverse reaction; Pain is decreased bp 11:37 Drug: Zofran 4 mg Route: IVP; Site: right antecubital; ca1 11:48 Follow up: Response: Nausea is decreased bp 12:46 Not Given (Patient Refused; "makes me act funny, Phenergan works for me", Notified ca1 Provider): Reglan 10 mg IVP once; over 1 to 2 minutes 12:47 Drug: Phenergan 12.5 mg Route: IVP; Site: right forearm; ca1 13:18 Follow up: Response: No adverse reaction bp 13:30 Drug: SOLU-Medrol 125 mg Route: IVP; Site: right antecubital; bp 15:03 Follow up: Response: No adverse reaction bp 13:30 Drug: Flagyl 500 mg Volume: 100 ml; Route: IVPB; Rate: 200 ml/hr; Infused Over: 30 bp mins; Site: right antecubital; 15:02 Follow up: IV Status: Completed infusion bp 13:30 Drug: Cipro 500 mg Route: PO; bp 15:02 Follow up: Response: No adverse reaction bp Disposition: 11/01/19 14:35 Discharged to Home. Impression: Abdominal and pelvic pain, Nausea and vomiting, Enteritis. - Condition is Stable. - Discharge Instructions: Nausea and Vomiting, Adult, [id number], Abdominal Pain, Adult, [id number]. - Prescriptions for Bentyl 20 mg Oral Tablet - take 1 tablet by ORAL route every 6 hours As needed; 20 tablet. Cipro 500 mg Oral Tablet - take 1 tablet by ORAL route every 12 hours for 10 days; 20 tablet. Flagyl 500 mg Oral Tablet - take 1 tablet by ORAL route every 6 hours for 10 days; 40 tablet. Tramadol 50 mg Oral Tablet - take 1 tablet by ORAL route every 8 hours as needed; 12 tablet. promethazine 25 mg Oral Tablet - take 1 tablet by ORAL route every 6 hours As needed; 12 tablet. - Medication Reconciliation Form, Thank You Letter, Antibiotic Education, Prescription Opioid Use form. - Follow up: Private Physician; When: 2 - 3 days; Reason: If symptoms return, Further diagnostic work-up, Recheck today's complaints, Continuance of care, Re-evaluation by your physician. - Problem is new. - Symptoms have improved. Signatures: Dispatcher [employer] EDMS Sharath Rod MD MD [facility] Yuki Cornejo RN RN Víctor Mendiola RN RN Mora Duenas RN RN [facility] Corrections: (The following items were deleted from the chart) 14:39 14:35 11/01/2019 14:35 Discharged to Home. Impression: Abdominal and pelvic pain; kdr Nausea and vomiting. Condition is Stable. Forms are Medication Reconciliation Form, Thank You Letter, Antibiotic Education, Prescription Opioid Use. Follow up: Private Physician; When: 2 - 3 days; Reason: If symptoms return, Further diagnostic work-up, Recheck today's complaints, Continuance of care, Re-evaluation by your physician. Problem is new. Symptoms have improved. kdr 15:04 14:39 11/01/2019 14:35 Discharged to Home. Impression: Abdominal and pelvic pain; bp Nausea and vomiting; Enteritis. Condition is Stable. Discharge Instructions: Nausea and Vomiting, Adult, [id number], Abdominal Pain, Adult, [id number]. Prescriptions for Bentyl 20 mg Oral Tablet - take 1 tablet by ORAL route every 6 hours As needed; 20 tablet, Cipro 500 mg Oral Tablet - take 1 tablet by ORAL route every 12 hours for 10 days; 20 tablet, Flagyl 500 mg Oral Tablet - take 1 tablet by ORAL route every 6 hours for 10 days; 40 tablet, Tramadol 50 mg Oral Tablet - take 1 tablet by ORAL route every 8 hours as needed; 12 tablet, promethazine 25 mg Oral Tablet - take 1 tablet by ORAL route every 6 hours As needed; 12 tablet. and Forms are Medication Reconciliation Form, Thank You Letter, Antibiotic Education, Prescription Opioid Use. Follow up: Private Physician; When: 2 - 3 days; Reason: If symptoms return, Further diagnostic work-up, Recheck today's complaints, Continuance of care, Re-evaluation by your physician. Problem is new. Symptoms have improved. kdr
--- NOTE | 2019-11-01 14:36 | ER ---
Nurse's Notes [facility] Name: Suraj Fuentes Age: 29 yrs Sex: Female : 1990 Arrival Date: 11/01/2019 Time: 09:33 Bed 5 Private MD: Diagnosis: Abdominal and pelvic pain;Nausea and vomiting;Enteritis Presentation: 11/01 09:49 Presenting complaint: Patient states: generalized abd pain and vomiting since this iw morning, diarrhea yesterday, no urinary s/s. Transition of care: patient was not received from another setting of care. Onset of symptoms was November 01, 2019. Risk Assessment: Do you want to hurt yourself or someone else? Patient reports no desire to harm self or others. Initial Sepsis Screen: Does the patient meet any 2 criteria? No. Patient's initial sepsis screen is negative. Does the patient have a suspected source of infection? No. Patient's initial sepsis screen is negative. Care prior to arrival: None. 09:49 Method Of Arrival: Wheelchair iw 09:49 Acuity: SHAW 3 iw Triage Assessment: 09:50 General: Appears in no apparent distress. comfortable, Behavior is cooperative, bp appropriate for age, anxious. Pain: Complains of pain in abdomen diffusely. EENT: No deficits noted. Neuro: No deficits noted. Cardiovascular: No deficits noted. Respiratory: No deficits noted. GI: Abdomen is non-distended. : No signs and/or symptoms were reported regarding the genitourinary system. Derm: No deficits noted. Musculoskeletal: No deficits noted. 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 - Social history:: Smoking status: Patient/guardian denies using tobacco. - Ebola Screening: : Patient negative for fever greater than or equal to 101.5 degrees Fahrenheit, and additional compatible Ebola Virus Disease symptoms Patient denies exposure to infectious person Patient denies travel to an Ebola-affected area in the 21 days before illness onset No symptoms or risks identified at this time. Screenin:12 Abuse screen: Denies threats or abuse. Denies injuries from another. Nutritional bp screening: No deficits noted. Tuberculosis screening: No symptoms or risk factors identified. Fall Risk None identified. Assessment: 10:12 General: SEE TRIAGE NOTE. bp 10:34 Reassessment: NO FURTHER VOMITING. IVF INFUSING, UOP PENDING. bp 11:48 Reassessment: ALL CURRENT ORDERS COMPLETED, RESULTS PENDING. 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 Pt ca1 still nauseated at this time. Notified provider. 12:46 Reassessment: Pt refused Reglan, "makes me act funny", as stated. Notified provide. ca1 Phenergan ordered. 13:40 Reassessment: ABX INFUSING, VS STABLE. bp 15:01 Reassessment: PT D/C HOME AMBULATORY WITH FAMILY, DX WITH ENTERITIS. bp Vital Signs: 09:51 BP 117 / 74; Pulse 91; Resp 16 S; Temp 98.1; Pulse Ox 98% on R/A; Pain 10/10; iw 10:34 BP 102 / 59; Pulse 68; Resp 17; Pulse Ox 98% ; bp 11:48 BP 124 / 80; Pulse 67; Resp 16; Pulse Ox 98% ; bp 13:40 BP 101 / 59; Pulse 63; Resp 16; Pulse Ox 100% ; bp 15:01 BP 102 / 56; Pulse 63; Resp 16; Temp 98; Pulse Ox 100% ; bp ED Course: 09:33 Patient arrived in ED. mr 09:40 Sharath Rod MD is Attending Physician. kdr 09:49 Víctor Mendiola, ALFONZO is Primary Nurse. bp 09:50 Triage completed. iw 09:51 Arm band placed on. iw 09:59 Initial lab(s) drawn, by me, sent to lab. Inserted saline lock: 22 gauge in right jb1 antecubital area, using aseptic technique. Blood collected. 10:10 Radiology exam delayed due to test not completed at this time. mw3 10:12 Patient has correct armband on for positive identification. Bed in low position. Call bp light in reach. Side rails up X2. Adult w/ patient. 10:32 Radiology exam delayed due to test not completed at this time. mw3 11:15 Radiology exam delayed due to test not completed at this time. mw3 11:36 Urine collected: clean catch specimen, clear, ham colored. jb1 12:23 Inserted saline lock: 22 gauge in right antecubital area, using aseptic technique. jb1 12:27 CT completed. Patient tolerated procedure well. Patient moved back from CT. mw3 12:28 CT Abd/Pelvis - IV Contrast Only In Process Unspecified. EDMS 15:02 No provider procedures requiring assistance completed. IV discontinued, intact, bp bleeding controlled, No redness/swelling at site. Pressure dressing applied. Administered Medications: 10:10 Drug: morphine 4 mg Route: IVP; Site: right antecubital; bp 10:45 Follow up: Response: No adverse reaction bp 10:10 Drug: Zofran 4 mg Route: IVP; Site: right antecubital; bp 10:45 Follow up: Response: No adverse reaction bp 10:10 Drug: NS 0.9% 1000 ml Route: IV; Rate: 1 bolus; Site: right antecubital; bp 15:03 Follow up: IV Status: Completed infusion; IV Intake: 1000ml bp 10:10 Drug: Pepcid 20 mg Route: IVP; Site: right antecubital; bp 10:45 Follow up: Response: Nausea is decreased bp 10:45 Drug: morphine 4 mg Route: IVP; Site: right antecubital; bp 11:48 Follow up: Response: No adverse reaction; Pain is decreased bp 11:37 Drug: Zofran 4 mg Route: IVP; Site: right antecubital; ca1 11:48 Follow up: Response: Nausea is decreased bp 12:46 Not Given (Patient Refused; "makes me act funny, Phenergan works for me", Notified ca1 Provider): Reglan 10 mg IVP once; over 1 to 2 minutes 12:47 Drug: Phenergan 12.5 mg Route: IVP; Site: right forearm; ca1 13:18 Follow up: Response: No adverse reaction bp 13:30 Drug: SOLU-Medrol 125 mg Route: IVP; Site: right antecubital; bp 15:03 Follow up: Response: No adverse reaction bp 13:30 Drug: Flagyl 500 mg Volume: 100 ml; Route: IVPB; Rate: 200 ml/hr; Infused Over: 30 bp mins; Site: right antecubital; 15:02 Follow up: IV Status: Completed infusion bp 13:30 Drug: Cipro 500 mg Route: PO; bp 15:02 Follow up: Response: No adverse reaction bp Intake: 15:03 IV: 1000ml; Total: 1000ml. bp Outcome: 14:35 Discharge ordered by . kdr 15:02 Discharged to home ambulatory, with family. bp 15:02 Condition: stable 15:02 Discharge instructions given to patient, Instructed on discharge instructions, follow up and referral plans. medication usage, Demonstrated understanding of instructions, follow-up care, medications, Prescriptions given X 5 15:04 Patient left the ED. bp Signatures: Dispatcher [employer] EDMS Chevy Bearden jb1 Sharath Rod MD MD kdr Rivera, Jazz mr Yuki Cornejo, RN RN iw Víctor Mendiola RN RN Queenie Kenyon mw3 Mora Duenas RN RN ca1 Corrections: (The following items were deleted from the chart) 12:53 12:46 Reassessment: Pt refused Reglan, "makes me act funny", as stated. Notified ca1 provide. Phenergan ordered ca1
[2019-11-01 16:36] VITALS: O2SAT 100
[2019-11-01 16:38] VITALS: BP 102/56; TEMP 98
== END 2019-11-01 15:04 | disposition home or self-care (01) ==
LOC: ER 09:31
DX: K52.9 Noninfective gastroenteritis and colitis, unspecified (principal); R10.30 Lower abdominal pain, unspecified; Z88.6 Allergy status to analgesic agent; Z91.018 Allergy to other foods
CPT/HCPCS: 96365; 96361; 85025; 80048; 36415; 80076; 81003; 83690; 74177; 96375; 99284; Q9967; J2765; J2550; J7030; J2930; J2405 ×2

== ENCOUNTER 2019-12-30 06:46 | Emergency (ER) | payer MEDICAID ==
--- OUTSIDE RECORDS SUMMARY | 2019-12-30 06:47 | XMS REPORT ---
:1990 [facility] Address [address] [place] [address] [address] [place] [address] Care Team Providers Name Role Phone Unavailable Unavailable Unavailable Problems This patient has no known problems. Allergies, Adverse Reactions, Alerts This patient has no known allergies or adverse reactions. Medications This patient has no known medications.
[2019-12-30] MEDS ORDERED: ONDANSETRON 4 MG/2 ML VIAL ONE (07:14)
[2019-12-30] MEDS ORDERED: MORPHINE 2 MG/ML SYR ONE (07:14)
[2019-12-30 07:46] LABS: Absolute Lymphocytes (CBC) 2.5 K/uL (0.7-4.9); Basophils % 0.4 % (0-1.3); Hematocrit 42.2 % (36.0-45.0); Lymphocytes % 35.5 % (15.3-44.8); MPV 8.3 fL (7.6-11.3); RBC Red Blood Cell Count 4.68 M/uL (3.86-4.86)
[2019-12-30 07:47] LABS: Protime INR 0.94
[2019-12-30 08:03] LABS: ALT/SGPT 26 U/L (12-78); AST/SGOT 20 U/L (15-37); Albumin 3.6 g/dL (3.4-5.0); Alkaline Phosphatase 66 U/L (45-117); BUN Blood Urea Nitrogen 8 mg/dL (7-18); Bicarbonate 26 mmol/L (21-32); Bilirubin Direct 0.1 mg/dL (0-0.2); Bilirubin Total 0.4 mg/dL (0.2-1.0); Glucose Level 106 mg/dL (74-106); Magnesium 2.1 mg/dL (1.8-2.4); NT PRO-BNP 27 pg/mL (<125); Potassium 3.8 mmol/L (3.5-5.1); Sodium Level 142 mmol/L (136-145); Troponin (Emerg Dept Use Only) < 0.02 ng/mL (0.0-0.045)
--- NOTE | 2019-12-30 08:43 | EDPHYS ---
Physician Documentation [facility] Name: Suraj Fuentes Age: 29 yrs Sex: Female : 1990 Arrival Date: 12/30/2019 Time: 06:47 Bed 8 Private MD: ED Physician Pancho Greene HPI: 12/30 07:18 This 29 yrs old Female presents to ER via Ambulatory with complaints of Chest jmm Pain. 07:18 The patient or guardian reports chest pain that is located primarily in the substernal jmm area. The pain does not radiate. Associated signs and symptoms: Pertinent positives: headache, lightheadedness. The chest pain is described as aching, sharp. Duration: The patient or guardian reports a single episode, that is still ongoing. Modifying factors: The symptoms are alleviated by nothing. the symptoms are aggravated by nothing. This is a 29 year old female with no chronic medical conditions that presents to the ED with complaints of chest pain which is described as a dull ache with intermittent episodes of sharp pain which lasts for a few seconds at a time. Denies history of PE, recent surgery, fracture. . 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 - Coronavirus screen:: The patient has NOT traveled to [place], [place], or [place] in the past 14 days. The patient has NOT had contact with known/suspected case of Coronavirus?. - Social history:: Smoking status: Patient denies any tobacco usage or history of. Patient/guardian denies using alcohol, street drugs. - Ebola Screening: : Patient negative for fever greater than or equal to 101.5 degrees Fahrenheit, and additional compatible Ebola Virus Disease symptoms Patient denies exposure to infectious person Patient denies travel to an Ebola-affected area in the 21 days before illness onset. ROS: 07:18 Constitutional: Negative for fever, chills, and weight loss. jmm 07:18 Respiratory: Negative for shortness of breath, cough, wheezing, and pleuritic chest pain, Abdomen/GI: Negative for abdominal pain, nausea, vomiting, diarrhea, and constipation. 07:18 Cardiovascular: Positive for chest pain. 07:18 Neuro: Positive for 07:18 All other systems are negative. Exam: 07:18 Constitutional: This is a well developed, well nourished patient who is awake, alert, jmm and in no acute distress. Head/Face: atraumatic. Eyes: EOMI, no conjunctival erythema appreciated ENT: Moist Mucus Membranes Neck: Trachea midline, Supple Chest/axilla: Normal chest wall appearance and motion. Cardiovascular: Regular rate and rhythm. No edema appreciated 07:18 Respiratory: Normal respirations, no respiratory distress appreciated Abdomen/GI: Non distended, soft Back: Normal ROM Skin: General appearance color normal MS/ Extremity: Moves all extremities, no obvious deformities appreciated, no edema noted to the lower extremities Neuro: Awake and alert, normal gait Psych: Behavior is normal, Mood is normal, Patient is cooperative and pleasant 07:18 Cardiovascular: Rate: normal, Rhythm: regular, Pulses: no pulse deficits are appreciated. Vital Signs: 06:50 BP 127 / 67; Pulse 71; Resp 18; Temp 98.1(O); Pulse Ox 99% on R/A; Weight 80.29 kg (R); fc Height 5 ft. 2 in. (157.48 cm) (R); Pain 7/10; 07:45 BP 124 / 76; Pulse 60; Resp 17; Pulse Ox 97% on R/A; tw2 08:38 BP 114 / 73; Pulse 64; Resp 17; Pulse Ox 100% on R/A; tw2 06:50 Body Mass Index 32.37 (80.29 kg, 157.48 cm) fc MDM: 06:53 Patient medically screened. jessica 08:41 Data reviewed: vital signs, nurses notes. Counseling: I had a detailed discussion with yang the patient and/or guardian regarding: the historical points, exam findings, and any diagnostic results supporting the discharge/admit diagnosis, lab results, radiology results, the need for outpatient follow up, to return to the emergency department if symptoms worsen or persist or if there are any questions or concerns that arise at home. ED course: Patient is alert and non toxic in appearance in the ED. CP has descreased. HEART score = 1. PERC negative. Patient is advised to follow up with cardiology or PCP for further evaluation and otherwise given strict return precautions. patient understood and agrees with the plan of care. . 12/30 06:54 Order name: Basic Metabolic Panel [facility] 12/30 06:54 Order name: CBC with Diff [facility] 12/30 06:54 Order name: LFT's [facility] 12/30 06:54 Order name: Magnesium [facility] 12/30 06:54 Order name: NT PRO-BNP [facility] 12/30 06:54 Order name: PT-INR [facility] 12/30 06:54 Order name: Troponin (emerg Dept Use Only) [facility] 12/30 07:49 Order name: CBC with Automated Diff; Complete Time: 07:50 EDMS 12/30 07:49 Order name: Protime (+INR); Complete Time: 07:50 EDMS 12/30 08:03 Order name: Basic Metabolic Panel; Complete Time: 08:05 EDMS 12/30 08:04 Order name: Liver (Hepatic) Function; Complete Time: 08:05 EDMS 12/30 08:04 Order name: Troponin (Emerg Dept Use Only); Complete Time: 08:05 EDMS 12/30 08:04 Order name: NT PRO-BNP; Complete Time: 08:05 EDMS 12/30 08:04 Order name: Magnesium; Complete Time: 08:05 EDMS 12/30 06:54 Order name: XRAY Chest (1 view) [facility] 12/30 06:54 Order name: EKG; Complete Time: 06:55 [facility] 12/30 06:54 Order name: Cardiac monitoring; Complete Time: 07:09 [facility] 12/30 06:54 Order name: EKG - Nurse/Tech; Complete Time: 07:09 [facility] 12/30 06:54 Order name: IV Saline Lock; Complete Time: 07:45 m 12/30 06:54 Order name: Labs collected and sent; Complete Time: 07:45 [facility] 12/30 06:54 Order name: O2 Per Protocol; Complete Time: 07:09 [facility] 12/30 06:54 Order name: O2 Sat Monitoring; Complete Time: 07:10 m 12/30 08:44 Order name: RAD; Complete Time: 09:15 EDMS Administered Medications: 07:31 Drug: Zofran 4 mg Route: IVP; Site: right forearm; tw2 08:51 Follow up: Response: No adverse reaction tw2 07:35 Drug: morphine 2 mg Route: IVP; Site: left forearm; tw2 08:58 Follow up: Response: No adverse reaction; Pain is decreased; RASS: Alert and Calm (0) tw2 Disposition: 11:03 Co-signature as Attending Physician, Pancho Greene MD I agree with the assessment and jessica plan of care. Disposition: 12/30/19 08:42 Discharged to Home. Impression: Chest pain, unspecified. - Condition is Stable. - Discharge Instructions: Nonspecific Chest Pain. - Medication Reconciliation Form, Thank You Letter, Antibiotic Education, Prescription Opioid Use, Work release form, Family Work Release form. - Follow up: Private Physician; When: 2 - 3 days; Reason: Recheck today's complaints, Continuance of care, Re-evaluation by your physician. Signatures: Dispatcher [employer] Pancho Sanchez MD MD cha Mickail, Joel, PA PA jmm Chretien, Felicia, RN RN Lilian Gross RN RN tw2 Corrections: (The following items were deleted from the chart) 08:59 08:42 12/30/2019 08:42 Discharged to Home. Impression: Chest pain, unspecified. tw2 Condition is Stable. Forms are Work release form, Family Work Release, Medication Reconciliation Form, Thank You Letter, Antibiotic Education, Prescription Opioid Use. Follow up: Private Physician; When: 2 - 3 days; Reason: Recheck today's complaints, Continuance of care, Re-evaluation by your physician. yang
--- NOTE | 2019-12-30 08:43 | RAD REPORT ---
EXAM DESCRIPTION: Yaya Single View12/30/2019 7:46 am CLINICAL HISTORY: Chest pain COMPARISON: May 2019 FINDINGS: The lungs appear clear of acute infiltrate. The heart is normal size IMPRESSION: No acute abnormalities displayed
--- NOTE | 2019-12-30 08:43 | ER ---
Nurse's Notes [facility] Name: Suraj Fuentes Age: 29 yrs Sex: Female : 1990 Arrival Date: 12/30/2019 Time: 06:47 Bed 8 Private MD: Diagnosis: Chest pain, unspecified Presentation: 12/30 06:50 Presenting complaint: Patient states: that since yesterday she has been having chest fc pain, is light headed and has a RAMOS. Denies any SOB, nausea or vomiting. Transition of care: patient was not received from another setting of care. Onset of symptoms was December 29, 2019. Risk Assessment: Do you want to hurt yourself or someone else? Patient reports no desire to harm self or others. Initial Sepsis Screen: Does the patient meet any 2 criteria? No. Patient's initial sepsis screen is negative. Does the patient have a suspected source of infection? No. Patient's initial sepsis screen is negative. Care prior to arrival: Medication(s) given: Tylenol, last at 0600. 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 - Coronavirus screen:: The patient has NOT traveled to [place], [place], or [place] in the past 14 days. The patient has NOT had contact with known/suspected case of Coronavirus?. - Social history:: Smoking status: Patient denies any tobacco usage or history of. Patient/guardian denies using alcohol, street drugs. - Ebola Screening: : Patient negative for fever greater than or equal to 101.5 degrees Fahrenheit, and additional compatible Ebola Virus Disease symptoms Patient denies exposure to infectious person Patient denies travel to an Ebola-affected area in the 21 days before illness onset. Screenin:50 Abuse screen: Denies threats or abuse. Nutritional screening: No deficits noted. fc Tuberculosis screening: No symptoms or risk factors identified. Fall Risk None identified. Assessment: 07:23 General: Appears in no apparent distress. Behavior is calm, cooperative, appropriate tw2 for age. Pain: Complains of pain in chest Pain does not radiate. Neuro: Level of Consciousness is awake, alert, obeys commands, Oriented to person, place, time, situation. Cardiovascular: Heart tones S1 S2 Patient's skin is warm and dry. Respiratory: Airway is patent Respiratory effort is even, unlabored, Respiratory pattern is regular, symmetrical, Breath sounds are clear bilaterally. GI: No signs and/or symptoms were reported involving the gastrointestinal system. Abdomen is flat, Bowel sounds present X 4 quads. : No signs and/or symptoms were reported regarding the genitourinary system. EENT: No signs and/or symptoms were reported regarding the EENT system. Derm: No signs and/or symptoms reported regarding the dermatologic system. Musculoskeletal: Range of motion: intact in all extremities. 07:24 Pain: Pain began 1 day ago. tw2 08:38 Reassessment: Patient appears in no apparent distress at this time. No changes from tw2 previously documented assessment. Patient and/or family updated on plan of care and expected duration. Pain level reassessed. Patient is alert, oriented x 3, equal unlabored respirations, skin warm/dry/pink. 08:58 Reassessment: Patient appears in no apparent distress at this time. No changes from tw2 previously documented assessment. Patient and/or family updated on plan of care and expected duration. Pain level reassessed. Patient is alert, oriented x 3, equal unlabored respirations, skin warm/dry/pink. Patient states feeling better. Patient states symptoms have improved. Vital Signs: 06:50 BP 127 / 67; Pulse 71; Resp 18; Temp 98.1(O); Pulse Ox 99% on R/A; Weight 80.29 kg (R); fc Height 5 ft. 2 in. (157.48 cm) (R); Pain 7/10; 07:45 BP 124 / 76; Pulse 60; Resp 17; Pulse Ox 97% on R/A; tw2 08:38 BP 114 / 73; Pulse 64; Resp 17; Pulse Ox 100% on R/A; tw2 06:50 Body Mass Index 32.37 (80.29 kg, 157.48 cm) ED Course: 06:47 Patient arrived in ED. ag3 06:47 [facility] Richmond [facility] 06:47 Pancho Greene MD is Attending Physician. [facility] 06:50 Arm band placed on Patient placed in an exam room, on a stretcher. 06:50 Patient has correct armband on for positive identification. Placed in gown. Bed in low fc position. Call light in reach. threat monitoring analyst on. Pulse ox on. NIBP on. 06:50 No provider procedures requiring assistance completed. 07:06 Triage completed. 07:09 Lilian Gross RN is Primary Nurse. tw2 07:23 Missed attempt(s): 22 gauge in right antecubital area. Bleeding controlled, band aid tw2 applied, catheter tip intact. Missed attempt(s): 22 gauge in left antecubital area. notified ALFONZO Romero of need for iv at this time.. Bleeding controlled, band aid applied, catheter tip intact. Patient maintains SpO2 saturation greater than 95% on room air. 07:30 Initial lab(s) drawn, by me, sent to lab. Inserted saline lock: 20 gauge in left aa5 forearm, using aseptic technique. Blood collected. 08:58 IV discontinued, intact, bleeding controlled, No redness/swelling at site. Pressure tw2 dressing applied. Administered Medications: 07:31 Drug: Zofran 4 mg Route: IVP; Site: right forearm; tw2 08:51 Follow up: Response: No adverse reaction tw2 07:35 Drug: morphine 2 mg Route: IVP; Site: left forearm; tw2 08:58 Follow up: Response: No adverse reaction; Pain is decreased; RASS: Alert and Calm (0) tw2 Outcome: 08:42 Discharge ordered by . [facility] 08:57 Discharged to home ambulatory, with significant other. tw2 08:57 Condition: stable 08:57 Discharge instructions given to patient, significant other, Instructed on discharge instructions, follow up and referral plans. Demonstrated understanding of instructions, follow-up care. 08:59 Patient left the ED. tw2 Signatures: Topher Richmond PA PA jmm Chretien, Felicia, RN RN Heather Cummins RN RN aa5 Lilian Gross RN RN tw2 Alejandrina Benítez ag3 Corrections: (The following items were deleted from the chart) 07:26 07:23 Missed attempt(s): 22 gauge in left antecubital area. notified ALFONZO Muñoz of need tw2 for iv at this time.. Bleeding controlled, band aid applied, catheter tip intact. tw2
[2019-12-30 11:37] VITALS: TEMP 98.1
[2019-12-30 11:41] VITALS: BP 114/73; O2SAT 100
--- NOTE | 2019-12-30 11:57 | EKG ---
Test Date: 2019-12-30 Test Time: 07:09:41 Mortgage Accounting Clerk: ROSY MEASUREMENT RESULTS: Intervals: Rate: 70 NM: 134 QRSD: 90 QT: 398 QTc: 429 [place]: P: 55 NM: 134 QRS: 85 T: 26 INTERPRETIVE STATEMENTS: Normal sinus rhythm Normal ECG Compared to ECG 06/12/2019 03:50:20 No significant changes Electronically Signed On 12-30-19 11:56:27 REGULATORY AFFAIRS STRATEGY SPECIALIST by Sammy Corbin
== END 2019-12-30 08:59 | disposition home or self-care (01) ==
LOC: ER 06:46
DX: R10.9 Unspecified abdominal pain (principal); Z88.6 Allergy status to analgesic agent; Z91.018 Allergy to other foods
CPT/HCPCS: 93005; 85025; 80048; 36415; 83735; 85610; 80076; 84484; 83880; 71045; 96375; 96374; 99285; J2270; J2405

== ENCOUNTER 2020-01-18 16:46 | Emergency (ER) | payer MEDICAID ==
--- OUTSIDE RECORDS SUMMARY | 2020-01-18 16:47 | XMS REPORT ---
:1990 Author Organization [facility] Address [address] [place] [address] [address] [place] [address] Care Team Providers Name Role Phone Unavailable Unavailable Unavailable Problems This patient has no known problems. Allergies, Adverse Reactions, Alerts This patient has no known allergies or adverse reactions. Medications This patient has no known medications.
[2020-01-18] MEDS ORDERED: ONDANSETRON 4 MG/2 ML VIAL ONE ×2 (17:34→19:41)
[2020-01-18] MEDS ORDERED: MORPHINE 4 MG/ML SYR ONE ×2 (17:34→18:24)
[2020-01-18] MEDS ORDERED: NA CHLORIDE 0.9% 500 ML ONE (17:34)
[2020-01-18 17:37] LABS: Basophils % 0.5 % (0-1.3); Hematocrit 46.1 % (36.0-45.0); Lymphocytes % 20.4 % (15.3-44.8); MPV 8.7 fL (7.6-11.3); RBC Red Blood Cell Count 5.11 M/uL (3.86-4.86)
[2020-01-18 17:51] LABS: Potassium 3.7 mmol/L (3.5-5.1)
[2020-01-18 19:08] LABS: Blood Morphology Comment NOT SEEN (NOT SEEN); Platelet Estimate ADEQ; Urine White Blood Cell Casts OK
--- NOTE | 2020-01-18 19:20 | RAD REPORT ---
EXAM DESCRIPTION: US - Transvaginal Study Probe - 01/18/2020 7:11 pm CLINICAL HISTORY: VAGINAL BLEEDING Pelvic pain. COMPARISON: No comparisons FINDINGS: The uterus is normal in size, shape and echotexture. The uterus measures 10.4 x 6.8 x 5.7 cm. The endometrial stripe measures 4 mm, normal. IUD is noted in expected location in the fundal endomet rium. Both ovaries are normal in size, shape and echotexture. The right ovary measures 3.3 x 2.6 x 2.6 cm. The left ovary measures 2.9 x 2.8 x 2.3 cm. No ovarian or parovarian lesions. No adnexal masses. Normal Doppler blood flow was demonstrated to both ovaries. No significant pelvic ascites. IMPRESSION: Appropriately located IUD in the fundal endometrium.
--- NOTE | 2020-01-18 19:21 | RAD REPORT ---
EXAM DESCRIPTION: CTAbdomen Pelvis W Contrast - 01/18/2020 7:12 pm CLINICAL HISTORY: Abdominal pain. Abd pain;Vaginal bleeding COMPARISON: Abdomen Pelvis W Contrast dated 11/01/2019; Abdomen Pelvis W Contrast dated 7; CT ABD PELVIS W CONTRAST dated 11/01/2015; CT ABD PELVIS W CONTRAST dated 09/11/2015 TECHNIQUE: Biphasic CT imaging of the abdomen and pelvis was performed with 100 ml non-ionic IV cont rast. All CT scans are performed using dose optimization technique as appropriate and may include automated exposure control or mA/KV adjustment according to patient size. FINDINGS: The lung bases are clear. The liver, spleen, pancreas, adrenal glands and kidneys are within normal limits. No bowel obstruction, free air, free fluid or abscess. Appendectomy. No evidence of significant lym phadenopathy. IUD is noted in the endometrium. No suspicious bony findings. IMPRESSION: No acute intra-abdominal or pelvic finding.
[2020-01-18 19:50] LABS: Urine Blood 3+ (NEG); Urine Glucose NEGATIVE (NEG); Urine Protein 2+ (NEG); Urine Specific Gravity 1.015 (1.005-1.030)
--- NOTE | 2020-01-18 20:39 | EDPHYS ---
Physician Documentation [facility] Name: Suraj Fuentes Age: 29 yrs Sex: Female : 1990 Arrival Date: 01/18/2020 Time: 16:48 Bed 24 Private MD: ED Physician Messi Teixeira HPI: 01/18 17:15 This 29 yrs old Female presents to ER via Ambulatory with complaints of kdr Vaginal Bleeding, Abdominal Pain, Back Pain. 17:15 The patient presents with vaginal bleeding that is light, heavy, The patient has had kdr light bleeding for two days then much heavier today. She has been through two large pads with nixed dark/bright blood and several tampons. Modifying factors: The symptoms are alleviated by nothing, the symptoms are aggravated by movement, walking. Associated signs and symptoms: Pertinent positives: dysuria, vaginal bleeding, Bilateral flank pain and low abdominal pain. Severity of symptoms: At their worst the symptoms were mild, moderate, just prior to arrival, in the emergency department the symptoms are unchanged. The patient has not experienced similar symptoms in the past. The patient has not recently seen a physician. 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 - Coronavirus screen:: The patient has NOT traveled to [place] in the past 14 days. The patient has NOT had contact with known/suspected case of Coronavirus? Proceed with normal triage procedures. - Social history:: Smoking status: Patient denies any tobacco usage or history of. - Ebola Screening: : No symptoms or risks identified at this time. ROS: 17:15 Constitutional: Negative for fever, chills, and weight loss, Eyes: Negative for injury, kdr pain, redness, and discharge, ENT: Negative for injury, pain, and discharge, Neck: Negative for injury, pain, and swelling, Cardiovascular: Negative for chest pain, palpitations, and edema, Respiratory: Negative for shortness of breath, cough, wheezing, and pleuritic chest pain, MS/Extremity: Negative for injury and deformity, Skin: Negative for injury, rash, and discoloration, Neuro: Negative for headache, weakness, numbness, tingling, and seizure activity. Psych: Negative for depression, anxiety, suicide ideation, homicidal ideation, and hallucinations, Allergy/Immunology: Negative for hives, rash, and allergies, Endocrine: Negative for neck swelling, polydipsia, polyuria, polyphagia, and marked weight changes, Hematologic/Lymphatic: Negative for swollen nodes, abnormal bleeding, and unusual bruising. 17:15 Abdomen/GI: Positive for abdominal pain, nausea, of the suprapubic area, right lower quadrant and left lower quadrant, Negative for vomiting, diarrhea, constipation, abdominal cramps, abdominal distension, anorexia, dysphagia, hematemesis, black/tarry stool, rectal pain, rectal bleeding, bowel incontinence. 17:15 Back: Positive for pain at rest, pain with movement, of the low back area. 17:15 : Positive for urinary symptoms, pelvic pain, urinary frequency, hematuria, burning with urination. Exam: 17:15 Constitutional: This is a well developed, well nourished patient who is awake, alert, kdr and in no acute distress. Head/Face: Normocephalic, atraumatic. Eyes: Pupils equal round and reactive to light, extra-ocular motions intact. Lids and lashes normal. Conjunctiva and sclera are non-icteric and not injected. Cornea within normal limits. Periorbital areas with no swelling, redness, or edema. Neck: Trachea midline, no thyromegaly or masses palpated, and no cervical lymphadenopathy. Supple, full range of motion without nuchal rigidity, or vertebral point tenderness. No Meningismus. Chest/axilla: Normal chest wall appearance and motion. Nontender with no deformity. No lesions are appreciated. Cardiovascular: Regular rate and rhythm with a normal S1 and S2. No gallops, murmurs, or rubs. Normal PMI, no JVD. No pulse deficits. Respiratory: Lungs have equal breath sounds bilaterally, clear to auscultation and percussion. No rales, rhonchi or wheezes noted. No increased work of breathing, no retractions or nasal flaring. Skin: Warm, dry with normal turgor. Normal color with no rashes, no lesions, and no evidence of cellulitis. MS/ Extremity: Pulses equal, no cyanosis. Neurovascular intact. Full, normal range of motion. Neuro: Awake and alert, GCS 15, oriented to person, place, time, and situation. Cranial nerves II-XII grossly intact. Motor strength 5/5 in all extremities. Sensory grossly intact. Cerebellar exam normal. Normal gait. Psych: Awake, alert, with orientation to person, place and time. Behavior, mood, and affect are within normal limits. 17:15 Abdomen/GI: Inspection: distension, that is moderate, obese Bowel sounds: active, Palpation: nontender, Rectal exam: Vital Signs: 16:57 BP 136 / 85; Pulse 89; Resp 16; Temp 98.1; Pulse Ox 100% on R/A; Weight 80.29 kg; hb Height 5 ft. 2 in. (157.48 cm); Pain 5/10; 18:15 BP 124 / 79; Pulse 68; Resp 18; Pulse Ox 99% ; wh 19:45 BP 128 / 86; Pulse 77; Resp 18; Pulse Ox 99% ; wh 21:00 BP 118 / 84; Pulse 72; Resp 18; Pulse Ox 99% on R/A; wh 16:57 Body Mass Index 32.37 (80.29 kg, 157.48 cm) hb MDM: 17:15 Data reviewed: vital signs, nurses notes, old medical records, radiologic studies. kdr Counseling: I had a detailed discussion with the patient and/or guardian regarding: the historical points, exam findings, and any diagnostic results supporting the discharge/admit diagnosis, lab results, radiology results, the need for outpatient follow up. 18:42 Patient medically screened. ma2 20:37 Response to treatment: the patient's symptoms have markedly improved after treatment. [facility] 01/18 17:01 Order name: Abo/rh Typing [facility] 01/18 17:01 Order name: Basic Metabolic Panel [facility] 01/18 17:01 Order name: CBC with Diff [facility] 01/18 17:58 Order name: CBC with Automated Diff; Complete Time: 19:39 [facility] 01/18 17:59 Order name: ABO/RH typing; Complete Time: 18:11 [facility] 01/18 17:59 Order name: Basic Metabolic Panel [facility] 01/18 18:07 Order name: CT Abd/Pelvis - IV Contrast Only [facility] 01/18 18:10 Order name: US Transvaginal Study (Probe) [facility] 01/18 18:13 Order name: Urine Dipstick--Ancillary (enter results) 01/18 18:13 Order name: Urine --Ancillary (enter results) 01/18 19:17 Order name: CBC Smear Scan; Complete Time: 19:39 [facility] 01/18 19:56 Order name: Urine --Ancillary; Complete Time: 20:01 EDMS 01/18 19:57 Order name: Urine Dipstick-Ancillary; Complete Time: 20:01 EDMS 01/18 17:01 Order name: IV Saline Lock; Complete Time: 17:37 kdr 01/18 17:01 Order name: Labs collected and sent; Complete Time: 17:37 kdr 01/18 17:01 Order name: NPO; Complete Time: 17:37 kdr 01/18 17:01 Order name: Urine Dipstick-Ancillary (obtain specimen); Complete Time: 18:04 kdr Administered Medications: 17:32 Drug: NS 0.9% 500 ml Route: IV; Rate: bolus; Site: right antecubital; 20:43 Follow up: Response: No adverse reaction; IV Status: Completed infusion wh 17:34 Drug: morphine 4 mg Route: IVP; Site: right antecubital; wh 20:44 Follow up: Response: No adverse reaction; Pain is decreased; RASS: Alert and Calm (0) wh 17:36 Drug: Zofran 4 mg Route: IVP; Site: right antecubital; wh 20:44 Follow up: Response: No adverse reaction; Nausea is decreased wh 18:37 Drug: morphine 4 mg Route: IVP; Site: right antecubital; 20:43 Follow up: Response: No adverse reaction; Pain is decreased wh 19:40 Drug: Zofran 4 mg Route: IVP; Site: right antecubital; wh 20:43 Follow up: Response: No adverse reaction; Nausea is decreased wh 20:43 Drug: [place] 5 mg-325 mg 1 tabs Route: PO; wh 21:01 Follow up: Response: No adverse reaction; Pain is decreased Disposition: 01/18/20 20:37 Discharged to Home. Impression: Other specified abnormal uterine and vaginal bleeding. - Condition is Stable. - Discharge Instructions: Menorrhagia. - Prescriptions for Provera 5 mg Oral tablet - take 2 tablet by ORAL route once daily; 50 tablet. Tylenol- Codeine #3 300-30 mg Oral Tablet - take 2 tablet by ORAL route every 6 hours As needed; 30 tablet. - Medication Reconciliation Form, Thank You Letter, Antibiotic Education, Prescription Opioid Use form. - Follow up: Michael Carson MD; When: Tomorrow; Reason: Continuance of care. Signatures: Dispatcher [employer] EDMS Sharath Rod MD MD [facility] Kimberly Landeros RN RN Kole Garcia [facility] MD ma2 Corrections: (The following items were deleted from the chart) 21:01 20:37 01/18/2020 20:37 Discharged to Home. Impression: Other specified abnormal uterine wh and vaginal bleeding. Condition is Stable. Forms are Medication Reconciliation Form, Thank You Letter, Antibiotic Education, Prescription Opioid Use. Follow up: Michael Carson; When: Tomorrow; Reason: Continuance of care. ma2
--- NOTE | 2020-01-18 20:39 | ER ---
Nurse's Notes [facility] Name: Suraj Fuentes Age: 29 yrs Sex: Female : 1990 Arrival Date: 01/18/2020 Time: 16:48 Bed 24 Private MD: Diagnosis: Other specified abnormal uterine and vaginal bleeding Presentation: 01/18 16:55 Presenting complaint: Mid back pain, lower abdominal pain, and heavy vaginal bleeding hb with large clots x 2 days. Transition of care: patient was not received from another setting of care. Onset of symptoms was January 17, 2020. Risk Assessment: Do you want to hurt yourself or someone else? Patient reports no desire to harm self or others. Care prior to arrival: None. 16:55 Method Of Arrival: Ambulatory hb 16:55 Acuity: SHAW 3 hb 17:15 Initial Sepsis Screen: Does the patient meet any 2 criteria? No. Patient's initial wh sepsis screen is negative. Does the patient have a suspected source of infection? Yes: Acute abdominal pain. 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 - Coronavirus screen:: The patient has NOT traveled to [place] in the past 14 days. The patient has NOT had contact with known/suspected case of Coronavirus? Proceed with normal triage procedures. - Social history:: Smoking status: Patient denies any tobacco usage or history of. - Ebola Screening: : No symptoms or risks identified at this time. Screenin:15 Abuse screen: Denies threats or abuse. Denies injuries from another. Nutritional wh screening: No deficits noted. Tuberculosis screening: No symptoms or risk factors identified. Fall Risk None identified. Assessment: 17:15 General: Appears in no apparent distress. Behavior is calm, cooperative, appropriate wh for age. Pain: Complains of pain in suprapubic area Pain does not radiate. Pain currently is 7 out of 10 on a pain scale. Quality of pain is described as aching, Pain began 2-3 days ago. Neuro: Level of Consciousness is awake, alert, obeys commands, Oriented to person, place, time, situation, Appropriate for age. Cardiovascular: Heart tones S1 S2. Respiratory: Airway is patent Respiratory effort is even, unlabored, Respiratory pattern is regular, symmetrical, Breath sounds are clear bilaterally. GI: Abdomen is flat, non-distended. : Per Pt report vaginal bleeding Reports vaginal bleeding that is bright red, with clots, heavy flow. EENT: No signs and/or symptoms were reported regarding the EENT system. Derm: Skin is intact, is healthy with good turgor, Skin is pink, warm \T\ dry. normal. Musculoskeletal: Circulation, motion, and sensation intact. 18:30 Reassessment: Patient appears in no apparent distress at this time. No changes from previously documented assessment. Patient and/or family updated on plan of care and expected duration. Pain level reassessed. Patient is alert, oriented x 3, equal unlabored respirations, skin warm/dry/pink. 20:00 Reassessment: Patient appears in no apparent distress at this time. No changes from previously documented assessment. Patient and/or family updated on plan of care and expected duration. Pain level reassessed. Patient is alert, oriented x 3, equal unlabored respirations, skin warm/dry/pink. Patient states feeling better. Patient states symptoms have improved. 21:00 Reassessment: Patient appears in no apparent distress at this time. No changes from previously documented assessment. Patient and/or family updated on plan of care and expected duration. Pain level reassessed. Patient is alert, oriented x 3, equal unlabored respirations, skin warm/dry/pink. Patient states feeling better. Patient states symptoms have improved. Vital Signs: 16:57 BP 136 / 85; Pulse 89; Resp 16; Temp 98.1; Pulse Ox 100% on R/A; Weight 80.29 kg; hb Height 5 ft. 2 in. (157.48 cm); Pain 5/10; 18:15 BP 124 / 79; Pulse 68; Resp 18; Pulse Ox 99% ; wh 19:45 BP 128 / 86; Pulse 77; Resp 18; Pulse Ox 99% ; wh 21:00 BP 118 / 84; Pulse 72; Resp 18; Pulse Ox 99% on R/A; wh 16:57 Body Mass Index 32.37 (80.29 kg, 157.48 cm) hb ED Course: 16:48 Patient arrived in ED. mr 16:56 Triage completed. hb 16:57 Arm band placed on. hb 16:58 Sharath Rod MD is Attending Physician. kdr 17:06 Kole Garcia is Primary Nurse. 17:15 Patient has correct armband on for positive identification. Placed in gown. Bed in low wh position. Call light in reach. Side rails up X 1. Pulse ox on. NIBP on. 17:30 Inserted saline lock: 20 gauge in right antecubital area, using aseptic technique. Blood collected. 17:45 Assist provider with pelvic exam: Set up pelvic tray. Performed by Sharath Rod MD Patient tolerated well. Alesha [employer] Proofer as Artist Suspect. 18:44 Messi Teixeira MD is Attending Physician. [facility] 20:37 Michael Carson MD is Referral Physician. de2 21:01 IV discontinued, intact, bleeding controlled, No redness/swelling at site. Administered Medications: 17:32 Drug: NS 0.9% 500 ml Route: IV; Rate: bolus; Site: right antecubital; 20:43 Follow up: Response: No adverse reaction; IV Status: Completed infusion 17:34 Drug: morphine 4 mg Route: IVP; Site: right antecubital; 20:44 Follow up: Response: No adverse reaction; Pain is decreased; RASS: Alert and Calm (0) 17:36 Drug: Zofran 4 mg Route: IVP; Site: right antecubital; 20:44 Follow up: Response: No adverse reaction; Nausea is decreased 18:37 Drug: morphine 4 mg Route: IVP; Site: right antecubital; 20:43 Follow up: Response: No adverse reaction; Pain is decreased 19:40 Drug: Zofran 4 mg Route: IVP; Site: right antecubital; 20:43 Follow up: Response: No adverse reaction; Nausea is decreased 20:43 Drug: [place] 5 mg-325 mg 1 tabs Route: PO; 21:01 Follow up: Response: No adverse reaction; Pain is decreased Outcome: 20:37 Discharge ordered by . ma2 21:00 Discharged to home ambulatory, with family. 21:00 Condition: stable 21:00 Discharge instructions given to patient, family, Instructed on discharge instructions, follow up and referral plans. no drinking with medication, no driving heavy equipment, medication usage, POC Demonstrated understanding of instructions, follow-up care, medications, POC Prescriptions given X 2. 21:01 Patient left the ED. Signatures: Sharath Rod MD MD [facility] Jazz Ruelas Heather, RN RN hb [place], Winsy Messi Teixeira MD MD ma2
[2020-01-18] MEDS ORDERED: HYDROCODONE/APAP 5/325 MG TAB ONE (20:44)
[2020-01-18 22:36] VITALS: TEMP 98.1
[2020-01-18 22:37] VITALS: O2SAT 99
[2020-01-18 22:40] VITALS: BP 118/84
== END 2020-01-18 21:01 | disposition home or self-care (01) ==
LOC: ER 16:46
DX: N93.8 Other specified abnormal uterine and vaginal bleeding (principal); Z88.6 Allergy status to analgesic agent; Z91.018 Allergy to other foods
CPT/HCPCS: 96361; 85025; 80048; 36415; 86900; 81025; 86901; 81003; 74177; 76830; 96375; 96374; 99284; Q9967; J7040; J2405 ×2

== ENCOUNTER 2020-08-01 21:05 | Emergency (ER) | payer MEDICAID ==
--- OUTSIDE RECORDS SUMMARY | 2020-08-01 21:14 | XMS REPORT | Continuity of Care Document ---
:1990 Author Organization [facility] t Address [address] [place] [address] Care Team Providers Name Role Phone Jim Lauren WE[place] Attending Clinician Doctor Unassigned, Name Attending Clinician Unavailable Problems This patient has no known problems. Allergies, Adverse Reactions, Alerts This patient has no known allergies or adverse reactions. Medications This patient has no known medications. Procedures This patient has no known procedures. Encounters Start End Encounter Admission Attending Care Care Encounter Source Date/Time Date/Time Type Type Clinicians Facility Department ID 2020-03-21 2020-03-21 Office FernandezAMBAR [id number] 14:48:30 15:49:04 Visit Cornelius Aguilar [employer]EL[facility] F[employer]NA[employer] EXPEDITER [id number] [facility] [id number] MATERNAL [id number] & CHILD [address] [place] [address] 2020-03-21 2020-03-21 Orders Doctor EDUARDO [id number] 00:00:00 00:00:00 Only UnassSRAVAN christy [id number] [place] [facility] [id number] Results This patient has no known results.
[2020-08-01 22:22] LABS: Absolute Lymphocytes (CBC) 2.7 K/uL (0.7-4.9); Basophils % 0.8 % (0-1.3); Lymphocytes % 34.8 % (15.3-44.8); MPV 8.7 fL (7.6-11.3); RBC Red Blood Cell Count 4.76 M/uL (3.86-4.86)
[2020-08-01] MEDS ORDERED: ONDANSETRON 4 MG (ODT) TAB ONE (22:33)
[2020-08-01 22:46] LABS: ALT/SGPT 41 U/L (12-78); Albumin 3.9 g/dL (3.4-5.0); Alkaline Phosphatase 63 U/L (45-117); BUN Blood Urea Nitrogen 7 mg/dL (7-18); Bicarbonate 26 mmol/L (21-32); Bilirubin Direct < 0.1 mg/dL (0-0.2); Bilirubin Total 0.5 mg/dL (0.2-1.0); Glucose Level 96 mg/dL (74-106); HCG, Quantitative 684 mIU/mL (1-3); Lipase 85 U/L (73-393); Protein, Total 7.8 g/dL (6.4-8.2); Sodium Level 140 mmol/L (136-145)
[2020-08-01 22:51] LABS: AST/SGOT 29 U/L (15-37); Potassium 3.8 mmol/L (3.5-5.1)
[2020-08-01 23:05] LABS: Urine Specific Gravity 1.015 (1.005-1.030)
--- NOTE | 2020-08-01 23:06 | ER ---
Nurse's Notes [facility] Name: Suraj Fuentes Age: 29 yrs Sex: Female : 1990 Arrival Date: 08/01/2020 Time: 21:08 Bed 15 Private MD: Diagnosis: Abdominal tenderness;Nausea; related conditions, unspecified, first trimester Presentation: 08/01 21:14 Chief complaint: Patient states: Abdominal pain, no appetite, fatigue, nausea for 4 ll1 days. Took a home test today and it was positive. States she would like to confirm this , and make sure nothing is wrong. G4, P3. LMP June 08. Coronavirus screen: Client denies travel out of the [place] in the last 14 days. At this time, the client does not indicate any symptoms associated with coronavirus-19. Ebola Screen: Patient denies travel to an Ebola-affected area in the 21 days before illness onset. Initial Sepsis Screen: Does the patient meet any 2 criteria? No. Patient's initial sepsis screen is negative. Risk Assessment: Do you want to hurt yourself or someone else? Patient reports no desire to harm self or others. Onset of symptoms was July 28, 2020. 21:14 Method Of Arrival: Ambulatory ll1 21:14 Acuity: SHAW 3 ll1 21:30 Initial Sepsis Screen: Does the patient have a suspected source of infection? No. wh Patient's initial sepsis screen is negative. 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 - Social history:: Smoking status: Patient denies any tobacco usage or history of. Patient/guardian denies using alcohol, street drugs. Screenin:30 Abuse screen: Denies threats or abuse. Denies injuries from another. Nutritional screening: No deficits noted. Tuberculosis screening: No symptoms or risk factors identified. Fall Risk None identified. Assessment: 21:30 General: Appears in no apparent distress. Behavior is calm, cooperative, appropriate wh for age. Pain: Complains of pain in abdomen Pain does not radiate. Pain currently is 1 out of 10 on a pain scale. Quality of pain is described as dull. Neuro: Level of Consciousness is awake, alert, obeys commands, Oriented to person, place, time, situation, Appropriate for age. Cardiovascular: Heart tones S1 S2. Respiratory: Airway is patent Respiratory effort is even, unlabored, Respiratory pattern is regular, symmetrical, Breath sounds are clear bilaterally. GI: Abdomen is flat, non-distended, Bowel sounds present X 4 quads. Abd is soft and non tender Reports nausea. : No signs and/or symptoms were reported regarding the genitourinary system. EENT: No signs and/or symptoms were reported regarding the EENT system. Derm: Skin is intact, is healthy with good turgor, Skin is pink, warm \T\ dry. normal. Musculoskeletal: Circulation, motion, and sensation intact. 22:35 Reassessment: Patient appears in no apparent distress at this time. No changes from previously documented assessment. Patient and/or family updated on plan of care and expected duration. Pain level reassessed. Patient is alert, oriented x 3, equal unlabored respirations, skin warm/dry/pink. 23:30 Reassessment: Patient states feeling better. Patient states symptoms have improved. Vital Signs: 21:14 BP 136 / 81; Pulse 82; Resp 17; Temp 98.4; Pulse Ox 100% ; Pain 4/10; ll1 22:30 BP 124 / 73; Pulse 79; Resp 18; Pulse Ox 100% on R/A; 23:30 BP 101 / 51; Pulse 80; Resp 18; Pulse Ox 99% on R/A; ED Course: 21:08 Patient arrived in ED. ds1 21:16 Triage completed. ll1 21:16 Arm band placed on. ll1 21:20 Ye Corcoran MD is Attending Physician. tw4 21:54 Kole Garcia is Primary Nurse. 22:00 Urine collected: clean catch specimen, clear, ham colored. jp3 22:10 Initial lab(s) drawn, by me, sent to lab. Inserted saline lock: 20 gauge in right jp3 antecubital area, using aseptic technique. Blood collected. Patient maintains SpO2 saturation greater than 95% on room air. 22:15 Bed in low position. Call light in reach. Side rails up X 1. Warm blanket given. Verbal jp3 reassurance given. Pulse ox on. NIBP on. 22:46 HCG, Quantitative Sent. 23:07 Michael Carson MD is Referral Physician. tw4 23:07 Jamshid Grajeda MD is Referral Physician. tw4 23:07 Lupe Conde MD is Referral Physician. tw4 23:35 No provider procedures requiring assistance completed. IV discontinued, intact, bleeding controlled, No redness/swelling at site. Administered Medications: 22:20 Drug: Zofran (Ondansetron) 4 mg Route: PO; 23:37 Follow up: Response: No adverse reaction; Nausea is decreased Point of Care Testing: Urine : 22:00 hCG Reading: Positive; Control Reading: Positive; jp3 Outcome: 23:05 Discharge ordered by . tw4 23:36 Discharged to home ambulatory. 23:36 Condition: stable 23:36 Discharge instructions given to patient, Instructed on discharge instructions, follow up and referral plans. medication usage, POC Demonstrated understanding of instructions, follow-up care, medications, POC Prescriptions given X 1. 23:37 Patient left the ED. Signatures: Natalia Lizarraga ds1 Kole Garcia Ye Corcoran MD MD tw4 Kunal Scott jp3 Bill Hudson RN RN ll1 Corrections: (The following items were deleted from the chart) 21:17 21:14 Chief complaint: Patient states: Abdominal pain, no appetite, fatigue, nausea for ll1 4 days. Took a home test today and it was positive. States she would like to confirm this , and make sure nothing is wrong. G4, P3 ll1
--- NOTE | 2020-08-01 23:06 | EDPHYS ---
Physician Documentation [facility] Name: Suraj Fuentes Age: 29 yrs Sex: Female : 1990 Arrival Date: 08/01/2020 Time: 21:08 Bed 15 Private MD: ED Physician Ye Corcoran HPI: 08/01 23:07 This 29 yrs old Female presents to ER via Ambulatory with complaints of tw4 Abdominal Pain. 23:07 The patient presents with abdominal pain. Onset: The symptoms/episode began/occurred tw4 today. The symptoms do not radiate. Associated signs and symptoms: none. 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 - Social history:: Smoking status: Patient denies any tobacco usage or history of. Patient/guardian denies using alcohol, street drugs. ROS: 08/02 06:56 Constitutional: Negative for fever, chills, and weight loss, Eyes: Negative for injury, tw4 pain, redness, and discharge, Cardiovascular: Negative for chest pain, palpitations, and edema, Respiratory: Negative for shortness of breath, cough, wheezing, and pleuritic chest pain, Back: Negative for injury and pain, MS/Extremity: Negative for injury and deformity, Skin: Negative for injury, rash, and discoloration, Neuro: Negative for headache, weakness, numbness, tingling, and seizure. Abdomen/GI: Positive for abdominal pain, Negative for nausea and vomiting, nausea, vomiting, and diarrhea, nausea, vomiting, diarrhea, constipation, abdominal cramps, abdominal distension, anorexia, dysphagia, hematemesis, black/tarry stool. Exam: 06:56 Constitutional: This is a well developed, well nourished patient who is awake, alert, tw4 and in no acute distress. Head/Face: Normocephalic, atraumatic. Chest/axilla: Normal chest wall appearance and motion. Nontender with no deformity. No lesions are appreciated. Cardiovascular: Regular rate and rhythm with a normal S1 and S2. No gallops, murmurs, or rubs. Normal PMI, no JVD. No pulse deficits. Respiratory: Lungs have equal breath sounds bilaterally, clear to auscultation and percussion. No rales, rhonchi or wheezes noted. No increased work of breathing, no retractions or nasal flaring. Skin: Warm, dry with normal turgor. Normal color with no rashes, no lesions, and no evidence of cellulitis. MS/ Extremity: Pulses equal, no cyanosis. Neurovascular intact. Full, normal range of motion. Neuro: Awake and alert, GCS 15, oriented to person, place, time, and situation. Cranial nerves II-XII grossly intact. Motor strength 5/5 in all extremities. Sensory grossly intact. Cerebellar exam normal. Normal gait. 06:56 Abdomen/GI: Inspection: abdomen appears normal, Bowel sounds: diminished, Palpation: mild abdominal tenderness, in all quadrants. Vital Signs: 08/01 21:14 BP 136 / 81; Pulse 82; Resp 17; Temp 98.4; Pulse Ox 100% ; Pain 4/10; ll1 22:30 BP 124 / 73; Pulse 79; Resp 18; Pulse Ox 100% on R/A; wh 23:30 BP 101 / 51; Pulse 80; Resp 18; Pulse Ox 99% on R/A; wh MDM: 21:54 Patient medically screened. tw4 08/02 06:57 Differential diagnosis: appendicitis, bowel obstruction, Ectopic , gastritis, tw4 non-specific abd pain. Data reviewed: vital signs, nurses notes. Data interpreted: Pulse oximetry: Interpretation: normal. Counseling: I had a detailed discussion with the patient and/or guardian regarding: the historical points, exam findings, and any diagnostic results supporting the discharge/admit diagnosis, lab results. Special discussion: Based on the patient's Hx, exam, and Dx evaluation, there is no indication for emergent surgery or inpatient Tx. It is understood by the patient/guardian that if the Sx's persist or worsen they need to return immediately for re-evaluation. I discussed with the patient/guardian in detail that at this point there is no indication for admission to the hospital. It is understood, however, that if the symptoms persist or worsen the patient needs to return immediately for re-evaluation. 08/01 21:25 Order name: Basic Metabolic Panel; Complete Time: 23:00 tw4 08/01 23:00 Interpretation: Normal except: CL 109; GFR 73. 08/01 21:25 Order name: CBC with Diff; Complete Time: 23:00 4 08/01 23:00 Interpretation: Within normal limits. 08/01 21:25 Order name: Hepatic Function; Complete Time: 23:00 tw4 08/01 23:00 Interpretation: Normal except: GLOB 3.9; A/G 1.0. 08/01 21:25 Order name: Lipase; Complete Time: 23:00 tw4 08/01 23:01 Interpretation: Within normal limits: LIP 85. 08/01 22:15 Order name: Urine Dipstick--Ancillary (enter results); Complete Time: 23:19 08/01 21:25 Order name: IV Saline Lock; Complete Time: 22:20 08/01 21:25 Order name: Labs collected and sent; Complete Time: 22:20 [facility] 08/01 21:58 Order name: Urine Dipstick-Ancillary (obtain specimen); Complete Time: 22:16 08/01 22:16 Order name: Urine --Ancillary (enter results); Complete Time: 23:19 ss 08/01 23:19 Interpretation: Normal except: URINE PREG POS. 08/01 22:19 Order name: HCG, Quantitative; Complete Time: 23:00 EDTX 08/01 23:00 Interpretation: Normal except: HCGQ 684. tw4 Administered Medications: 08/01 22:20 Drug: Zofran (Ondansetron) 4 mg Route: PO; 23:37 Follow up: Response: No adverse reaction; Nausea is decreased Point of Care Testing: Urine : 22:00 hCG Reading: Positive; Control Reading: Positive; jp3 Disposition: 08/01/20 23:05 Discharged to Home. Impression: Abdominal tenderness, Nausea, related conditions, unspecified, first trimester. - Condition is Stable. - Discharge Instructions: Abdominal Pain During , Nausea and Vomiting, Adult, Abdominal Pain, Adult, [id number]. - Prescriptions for Zofran 4 mg Oral Tablet - take 1 tablet by ORAL route every 12 hours As needed; 6 tablet. - Medication Reconciliation Form, Thank You Letter, Antibiotic Education, Prescription Opioid Use form. - Follow up: Private Physician; When: Upon discharge from the Emergency Department; Reason: Recheck today's complaints, Continuance of care, Re-evaluation by your physician. Follow up: Michael Carson MD; When: Upon discharge from the Emergency Department; Reason: Recheck today's complaints, Continuance of care, Re-evaluation by your physician. Follow up: Jamshid Grajeda MD; When: Upon discharge from the Emergency Department; Reason: Recheck today's complaints, Continuance of care, Re-evaluation by your physician. Follow up: Lupe Conde MD; When: Upon discharge from the Emergency Department; Reason: Recheck today's complaints, Continuance of care, Re-evaluation by your physician. - Problem is new. - Symptoms have improved. 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 [facility] 23:07 23:05 08/01/2020 23:05 Discharged to Home. Impression: Abdominal tenderness; Nausea; tw4 related conditions, unspecified, first trimester. Condition is Stable. Forms are Medication Reconciliation Form, Thank You Letter, Antibiotic Education, Prescription Opioid Use. Follow up: Private Physician; When: Upon discharge from the Emergency Department; Reason: Recheck today's complaints, Continuance of care, Re-evaluation by your physician. Problem is new. Symptoms have improved. tw4 23:37 23:07 08/01/2020 23:05 Discharged to Home. Impression: Abdominal tenderness; Nausea; wh related conditions, unspecified, first trimester. Condition is Stable. Discharge Instructions: Abdominal Pain During , Nausea and Vomiting, Adult, Abdominal Pain, Adult, [id number]. Prescriptions for Zofran 4 mg Oral Tablet - take 1 tablet by ORAL route every 12 hours As needed; 6 tablet. and Forms are Medication Reconciliation Form, Thank You Letter, Antibiotic Education, Prescription Opioid Use. Follow up: Private Physician; When: Upon discharge from the Emergency Department; Reason: Recheck today's complaints, Continuance of care, Re-evaluation by your physician. Follow up: Michael Carson; When: Upon discharge from the Emergency Department; Reason: Recheck today's complaints, Continuance of care, Re-evaluation by your physician. Follow up: Jamshid Grajeda; When: Upon discharge from the Emergency Department; Reason: Recheck today's complaints, Continuance of care, Re-evaluation by your physician. Follow up: Lupe Conde; When: Upon discharge from the Emergency Department; Reason: Recheck today's complaints, Continuance of care, Re-evaluation by your physician. Problem is new. Symptoms have improved. tw4
[2020-08-01 23:07] LABS: Urine Blood NEGATIVE (NEG); Urine Glucose NEGATIVE (NEG); Urine Protein NEGATIVE (NEG); Urine Specific Gravity 1.015 (1.005-1.030); Urine pH 6.5 (5.0-7.0)
[2020-08-02 11:52] VITALS: TEMP 98.4
[2020-08-02 11:55] VITALS: BP 101/51; O2SAT 99
== END 2020-08-01 23:37 | disposition home or self-care (01) ==
LOC: ER 21:05
DX: O26.891 Other specified pregnancy related conditions, first trimester (principal); Z3A.00 Weeks of gestation of pregnancy not specified; Z88.6 Allergy status to analgesic agent; Z91.018 Allergy to other foods
CPT/HCPCS: 36415; 80048; 80076; 81003; 81025; 83690; 84702; 85025; 99284

== ENCOUNTER 2020-08-23 10:35 | Emergency (ER) | payer MEDICAID ==
--- OUTSIDE RECORDS SUMMARY | 2020-08-23 10:37 | XMS REPORT | Summary of Care ---
:1990 Author Organization [facility] Address [address] [place] [address] Care Team Providers Name Role Phone Gamal Saravia Insurance Hmo Lauren Fernandez Primary Care Provider Reason for Referral (Routine) Status Reason Specialty Diagnoses / Referred By Referred To Procedures Contact Contact New Request Maternal Diagnoses Supervision of high risk in first trimester Cornelius Fernandez Medicine Procedures CONSULT MATERNAL MEDICINE ULTRASOUND Preferred Location: ELIZ Holland [address] [place] [address] Reason for Visit Reason Comments New OB Visit Encounter Details Date Type Department Care Team Description 08/03/2020 [facility]elius Fernandez upervision of high risk in first trimester (Primary Dx); Visit ELIZ Holland Previous section complicating p regnancy; [address] Desires V NANCY (vaginal after ) trial; [facility] Multiparity; [place], [place] Special screeni ng examination for viral disease; [id number] Nausea; [phone] Obesity in ; [phone] BMI 32.0-32.9,a dult (Fax) Allergies Active Allergy Reactions Severity Noted Date Comments Ibuprofen Hives 04/15/2014 [place] Hives 04/15/2014 Sodium Citrate (Bulk) Nausea and/or Vomiting 9 documented as of this encounter (statuses as of 08/03/2020) Medications Medication Sig Dispensed Refills Start Date End Date Status ondansetron HCl (ZOFRAN Take by mouth. 0 Active ORAL) vit Take 1 Packet by 30 Each 6 08/03/2020 Active 95-zgrt-zjbwb-dha mouth daily. (SELECT-OB + DHA) 29 mg iron-1 mg -250 mg combo packIndications: Supervision of high risk in first trimester documented as of this encounter (statuses as of 08/03/2020) Active Problems Problem Noted Date Desires (vaginal after ) trial 07/2020 Special screening examination for viral disease 2019 Encounter for care of lactating mother 12/26 Previous section complicating 12/20 Atypical squamous cells of undetermined significance ( ASCUS) on 12/18/2018 Papanicolaou smear of cervix Nausea 10/14/2018 BMI 32.0-32.9,adult 05/31/2018 Supervision of high risk in first trimester 05/20/2018 Multiparity 05/20/2018 Well woman exam 06/04/2016 Obesity in 01/25/2015 Overview: ICD10 Diagnosis Term Concession Attendant Utility Encounter for IUD removal and reinsertion 01/18/2015 ASCUS on Pap smear 04/15/2014 Estimated Date of Delivery Comments Yes 03/15/2021 Based on last menstr ual period of 06/08/2020 (Approximate) documented as of this encounter (statuses as of 08/03/2020) Resolved Problems Problem Noted Date Resolved Date 37 weeks gestation of 12/18/2018 01/08/20 19 W[place]er Hick's contraction 12/12/2018 01/08/2019 Abnormal maternal glucose tolerance, antepartum 12/11/2018 01/08/2019 33 weeks gestation of 11/22/2018 12/18/19 19 contractions 11/22/2018 12/18/2018 Trichomonal vaginitis during in second trimester 1 11/25/2017 02/04/2019 38 weeks gestation of 07/19/2018 07/21/20 18 15 weeks gestation of 07/17/2018 09/25/20 18 Intractable cyclical vomiting with nausea 07/17/2018 09/25/2018 Trichomonas infection 07/17/2018 09/25/2018 Vomiting 07/16/2018 09/25/2018 Hyperemesis gravidarum 05/31/2018 12/18/2018 7 weeks gestation of 05/31/2018 8 Family history of deafness 05/27/2018 01/08/2019 Susceptible to varicella (non-immune), currently 01/08/2019 Overview: Address pp Rubella non-immune status, antepartum 05/21/2018 Overview: Address pp History of delivery 05/20/2018 01/08/2019 Overview: X2 per patient ROR requested Request for sterilization 05/17/2016 11/27/2017 Anxiety and depression 05/17/2016 09/25/2018 Right knee pain 10/10/2015 06/04/2016 Irregular menstrual cycle 01/25/2015 09/25/2018 Other malaise and fatigue 01/25/2015 06/04/2016 Contraceptive management 01/25/2015 05/20/2018 Overview: ICD10 Diagnosis Term Concession Attendant Utility Breast tenderness in female 01/25/2015 05/20/2018 Not immune to rubella 04/16/2014 06/04/2016 Overview: ICD10 Diagnosis Term Concession Attendant Utility documented as of this encounter (statuses as of 08/03/2020) Immunizations Name Administration Dates Next Due HPV9 06/04/2016 MMR 12/20/2018 (Deferred: - not available f [facility]) TDAP 04/06/2015 TDAP (ADACEL) VACCINE 12/11/2018 Td 11/25/2004 Varicella (varivax)(chicken pox) 12/20/2018 documented as of this encounter Social History Tobacco Use Types Packs/Day Years Used Date Never Smoker Smokeless Tobacco: Never Used Alcohol Use Drinks/Week oz/Week Comments Yes 0 Standard drinks or equivalent 0.0 socially Estimated Date of Delivery Comments Yes 03/15/2021 Based on last menstr ual period of 06/08/2020 (Approximate) Sex Assigned at Date Recorded Not on file COVID-19 Exposure Response Date Recorded In the last month, have you been in contact with No / Unsure 08/03/2020 1:08 PM CDT someone who was confirmed or suspected to have Coronavirus / COVID-19? documented as of this encounter Last Filed Vital Signs Vital Sign Reading Time Taken Comments Blood Pressure 130/73 08/03/2020 1:08 PM CDT Pulse 87 08/03/2020 1:08 PM CDT Temperature 36.9 C (98.4 F) 08/03/2020 1:08 PM CDT Respiratory Rate 16 08/03/2020 1:08 PM CDT Oxygen Saturation - - Inhaled Oxygen Concentration - - Weight 85.4 kg (188 lb 3.2 oz) 08/03/2020 1:08 PM CDT Height 162.6 cm (5' 4") 08/03/2020 1:08 PM CDT Body Mass Index 32.3 08/03/2020 1:08 PM CDT documented in this encounter Progress Notes Cornelius Fernandez, INDUSTRIAL RELATIONS ANALYST - 08/03/2020 1:15 PM CDT Chief complaint: Chief Complaint Patient presents with New OB Visit HPI Histories OB History Para Term AB Living 4 3 1 2 0 3 SAB TAB Ectopic Multiple Live Births 0 0 0 0 3 # Outcome Date GA Lbr Eris/2nd Weight Sex Delivery Anes PTL Lv 4 Current 3 Term 12/18/18 37w0d 5 lb 5 oz (2.41 kg) SEC ELSI Complications: Breech 2 03/13/11 36w0d M VAGINAL ELSI 1 01/04/10 34w0d F VAGINAL ELSI Complications: Non Reassuring Status Obstetric Comments deliveries- 2009 due to Nuchal umbilical cord 2011 Premature labor Past Medical History: Diagnosis Date Abnormal maternal glucose tolerance, antepartum 12/11/2018 Resolved per pt report Anxiety Resolved per pt report Anxiety and depression resolved Mental disorder Ovarian cyst recently found out of dx. Family History Problem Relation Age of Onset Hypertension Mother Neurological Father epilepsy No Significant Medical Problems Sister No Significant Medical Problems Brother No Significant Medical Problems Maternal Aunt No Significant Medical Problems Maternal Uncle No Significant Medical Problems Paternal Aunt No Significant Medical Problems Paternal Uncle No Significant Medical Problems Maternal Grandmother No Significant Medical Problems Maternal Grandfather No Significant Medical Problems Paternal Grandmother No Significant Medical Problems Paternal Grandfather Arthritis NoFHx Asthma NoFHx defects NoFHx Breast Cancer NoFHx Colon Cancer NoFHx Ovarian Cancer NoFHx Uterine Cancer NoFHx Cancer NoFHx Depression NoFHx Diabetes NoFHx Genetic NoFHx Heart NoFHx High cholesterol NoFHx Mental retardation NoFHx Osteoporosis NoFHx Psychiatry NoFHx Other - see comments NoFHx Family Status Relation Name Status Mo Alive Fa Alive Sis Alive Bro Alive MAunt Alive MUnc Alive PAunt Alive PUnc Alive MGMo Alive MGFa Alive PGMo Alive PGFa Alive NoFHx (Not Specified) Past Surgical History: Procedure Laterality Date APPENDECTOMY 11/14/2017 Dr. Lomax SECTION N/A 12/18/2018 Surgeon: Manny Gray; Location: Labor and Delivery - [place] Social History Socioeconomic History Marital status: Spouse name: Not on file Number of children: Not on file Years of education: Not on file Highest education level: Not on file Occupational History Not on file Social Needs Financial resource strain: Not on file Food insecurity Worry: Not on file Inability: Not on file Transportation needs Medical: Not on file Non-medical: Not on file Tobacco Use Smoking status: Never Smoker Smokeless tobacco: Never Used Substance and Sexual Activity Alcohol use: Yes Alcohol/week: 0.0 standard drinks Comment: socially Drug use: No Sexual activity: Yes Partners: Male Comment: last sexual intercourse 10/2018 Lifestyle Physical activity Days per week: Not on file Minutes per session: Not on file Stress: Not on file Relationships Social connections Talks on phone: Not on file Gets together: Not on file Attends confucianist service: Not on file Active member of club or organization: Not on file Attends meetings of clubs or organizations: Not on file Relationship status: Not on file Intimate partner violence Fear of current or ex partner: Not on file Emotionally abused: Not on file Physically abused: Not on file Forced sexual activity: Not on file Other Topics Concern Not on file Social History Narrative Pt denies current or past physical, sexual or emotional abuse. Only outside cats. Jain: None Patient lives with spouse and kids. Social History Substance and Sexual Activity Sexual Activity Yes Partners: Male Comment: last sexual intercourse 10/2018 Genetic Screen Autism / Mental Retardation: No Pihllip Disease: No Congenital Heart Defect: No Cystic Fibrosis: No Down Syndrome: No Familial Dysautonomia: No Hemophilia or other Blood Disorders: No [place] Chorea: No Maternal Metabolic Disorder--specify (eg. Type 1 Diabetes, PKU): No Muscular Dystrophy: No Neural Tube Defect: No Recurrent Loss or a Stillbirth: No Sickle Cell Disease or Trait: No Ben Sachs: No Teratological Substances (specify type & strength/dose) since LMP: No Thalassemia: No Other Inherited Genetic or Chromosomal Disorder (specify): No No Significant History of Genetic Disorders: No Significant History of Genetic Disorders Labs Labs are pending. Radiology Radiology pending. Allergies Suraj is allergic to ibuprofen; orange; and sodium citrate (bulk). Medications Suraj has a current medication list which includes the following prescription(s): ondansetron hcl and select-ob + dha. Review of Systems Constitutional: Negative for activity change, appetite change, fatigue, unexpected weight change, weight gain and weight loss. HENT: Negative for sore throat. Eyes: Negative for visual disturbance. Respiratory: Negative for cough and shortness of breath. Breasts: Negative for discharge, mass, pain and unequal size. Cardiovascular: Negative for chest pain, palpitations and leg swelling. Gastrointestinal: Positive for nausea. Negative for abdominal pain, anal bleeding, blood in stool, constipation, diarrhea, rectal pain and vomiting. Genitourinary: Negative for bladder incontinence, dysuria, urgency, flank pain, vaginal bleeding, vaginal discharge, genital sores, vaginal pain and pelvic pain. Skin: Negative for color change and rash. Neurological: Negative. Negative for dizziness, syncope and headaches. Psychiatric/Behavioral: Negative for confusion, self-injury and sleep disturbance. The patient is not nervous/anxious. Hematological: Negative for cold intolerance and heat intolerance. Endocrine: Negative for hair loss, cold intolerance, heat intolerance, weight gain and weight loss. BP 130/73 (BP Location: Right arm, Patient Position: Sitting, BP CUFF SIZE: Adult Medium) | Pulse 87 | Temp 36.9 C (98.4 F) (Oral) | Resp 16 | Ht 5' 4" (1.626 m) | Wt 188 lb 3.2 oz (85.4 kg) | LMP 06/08/2020 (Approximate) | BMI 32.30 kg/m Pregravid BMI: 30.20 Physical Exam Vitals reviewed. Constitutional: She is oriented to person, place, and time. She appears well- developed, well-nourished and well-groomed. She has no deformities. Neck: No tenderness and no mass. No thyroid nodules and no thyromegaly palpated. Cardiovascular: Regular rate and rhythm. No murmur auscultated. Pulmonary/Chest: Breath sounds clear to auscultation. Normal inspiratory effort. Abdominal: Abdomen is soft. No mass palpated. No tenderness present. There is no guarding. Neuro/Psychiatric: She has a normal mood and affect. She is oriented to person, place, and time. Skin: Skin normal. No lesion and no rash present. Low Transverse incision noted Breast: Right breast exhibits no mass, no nipple discharge and no tenderness. Left breast exhibits no mass, no nipple discharge and no tenderness. Normal left breast and normal right breast Rectal: normal rectum External genitalia: Normal external genitalia appropriate for age. Normal hair distribution. No labial lesion. Ice Cutter present for the exam: ELIZ Kaufman student Vagina:Normal vagina. No lesion inspected. No abnormal vaginal discharge found. No lesions in thevagina. Cervix: Normal cervix. No lesion. No tenderness and no discharge present. Uterus: Uterus is normal size and non-tender. 6-8cm Normal uterus Adnexa: Right adnexa without tenderness or mass. Left adnexa without tenderness or mass. Normal leftadnexa and normal right adnexa Anus/perineum: Normal perineum. Assessment/Plan Supervision of high risk in first trimester (primary encounter diagnosis) Previous section complicating Desires (vaginal after ) trial Multiparity Comment: Routine NOB Plan: POCT TEST, POCT URINALYSIS W/O SPECIFIC GRAVITY, GLUCOSE 1 HOUR POST PRANDIAL, CONSULT MATERNAL MEDICINE ULTRASOUND Preferred Location: [facility] vit 66-gflr-mdvzc-dha (SELECT-OB + DHA) 29 mg iron-1 mg -250 mg combo pack, CBC WITH DIFF, GC & CHLAMYDIA AMPLIFIED ASSAY, HEPATITIS B SURFACE ANTIGEN, HIV 1/2 AG-AB WITH REFLEX, POCT URINALYSIS W SPECIFIC GRAVITY, WORKUP, BLOOD BANK, RUBELLA SCREEN (JESSICA) IGG, GALV ONLY - SYPHILIS IGG/IGM, URINE CULTURE, VZV ANTIBODY SCREEN Denies zika virus risk, signs and symptoms such as fever,rash,joint pain, conjunctivitis (red eyes), muscle pain, headaches; outside [place] travel to areas affected by zika, and FOB exposure to zika.Educated on use of mosquito repellent. Covid x12 screening done, screening results are negative. Special screening examination for viral disease Comment: per protocol Plan: SARS-COV-2 IGG Nausea Comment: patient complains Plan: resources given Obesity in BMI 32.0-32.9,adult Comment: BMI: 32.30 Plan: Patient encouraged to limit weight gain and advised to eat healthy diet, fruits, vegetables, increased fiber and water intake and protein low in fat. Encouraged exercise for 30 min everyday; begin regimen with caution to prevent injury. Encouraged to decrease BMI to <25. Return to clinic in 4 weeks. Discussed treatment options. Medications as ordered. Reviewed patient instructions and provided printed copy. This visit did not involve counseling and coordination that comprised more than 50% of the visit time. ELIZ Garay 08/03/2020 2:11 PM Roselyn Moore RN - 08/03/2020 1:15 PM CDTPatient is 29 year old female here for current . Patient is . 1) Previous delivery methods vaginal x2 and x1 2) Patient is not experiencing cramping 3) Patient is not experiencing bleeding. 4) LMP 06/01/2020 5) Last Pap was: 11/27/2017 Results: ASCUS HPV: neg 6) Have you had a flu vaccine this season? no 7) PPD candidate? no 8) Patient complains of Nausea and abdominal discomfort. 9) Patient denies history of physical, emotional, or sexual abuse. Patient states she currently feels safe at home. NOB packet given and reviewed with patient. documented in this encounter Plan of Treatment Date Type Specialty Care Team Description 08/31/2020 Routine Visit OB Satellites Lauren Fernandez FNP [address], [place] [address] [phone] Name Type Priority Associated Diagnoses Order S chedule GLUCOSE 1 HOUR POST LAB Routine Supervision of r isk Ordered: 08/03/2020 PRANDIAL in first trimester SARS-COV-2 IGG LAB Routine Special screening Ordered: 08/03/2020 examination for viral disease CBC WITH DIFF LAB Routine Supervision of high risk Ex pected: 08/03/2020, in first Expires: 08/03/2021 trimester GC & CHLAMYDIA LAB Routine Supervision of high risk E xpected: 08/03/2020, AMPLIFIED ASSAY in first s: 08/03/2021 trimester HEPATITIS B SURFACE LAB Routine Supervision of high r isk Expected: 08/03/2020, ANTIGEN in first Expires: 08/03/2021 trimester HIV 1/2 AG-AB WITH LAB Routine Supervision of high ri sk Expected: 08/03/2020, REFLEX in first Expires: 08/03/2021 trimester POCT URINALYSIS W LAB Routine Supervision of high ris k 20 Occurrences starting SPECIFIC GRAVITY in first 08/03 until trimester 05/30/2021 WORKUP, BLOOD LAB Routine Supervision of hig h risk Expected: 08/03/2020, BANK in first Expires: 08/03/2021 trimester RUBELLA SCREEN (JESSICA) LAB Routine Supervision of hig h risk Expected: 08/03/2020, IGG in first Expires: 08/03/2021 trimester GALV ONLY - SYPHILIS LAB Routine Supervision of high risk Expected: 08/03/2020, IGG/IGM in first Expires: 08/03/2021 trimester URINE CULTURE LAB Routine Supervision of high risk Ex pected: 08/03/2020, in first Expires: 08/03/2021 trimester VZV ANTIBODY SCREEN LAB Routine Supervision of high r isk Expected: 08/03/2020, in first Expires: 08/03/2021 trimester Health Maintenance Due Date Last Done Comments INFLUENZA VACCINE (#1) 2020 Postponed from 07/26/2020 (Vacc ine not available) PAP SMEAR 11/27/2020 11/27/2017, 04/15/2014, 08/08/2012, Additional history exists Depression Screening 08/03/2021 08/03/2020 VARICELLA VACCINES (2 of 2 08/03/2021 12/20/2018 Postp oned from - 13+ 2-dose series) 01/17/2019 ( or ) DTaP,Tdap,and Td Vaccines 12/11/2028 12/11/2018, 04/06/2015 , (4 - Td) 11/25/2004 PNEUMOCOCCAL 0-64 YEARS Aged Out No longe r eligible COMBINED SERIES based on patient 's age to complete this topic documented as of this encounter Procedures Procedure Name Priority Date/Time Associated Diagnosis Comme nts POCT URINALYSIS W/O Routine 08/03/2020 Supervision of high R esults for this SPECIFIC GRAVITY risk in first procedure are in the trimester results section . POCT TEST Routine 08/03/2020 Supervision of high R esults for this risk in first proc edure are in the trimester results section . documented in this encounter Results POCT URINALYSIS W/O SPECIFIC GRAVITY (08/03/2020) Pathologist Sig nature POCT PH U 5 5 - 8 mg/dl POCT U LEUK EST neg Negative - Negative POCT U NIT neg Negative - Negative POCT U PROT trace Negative - Negative POCT U GLU 250 Negative - Negative POCT U KETONE neg Negative - Negative POCT U BLD neg Negative - Negative Specimen Urine - URINE, CLEAN CATCH POCT TEST (08/03/2020) Pathologist Sig nature POCT PREG Positive On board controls acceptable Yes with C Line POCT PREG LOT # POCT PREG TEST DATE Specimen Urine - URINE, CLEAN CATCH documented in this encounter Visit Diagnoses Diagnosis Supervision of high risk in fi rst trimester - Primary Unspecified high-risk Previous section complicating p regnancy Previous delivery, unspecified as to episode of care or not applicable Desires (vaginal after marc an) trial Previous delivery, unspecified as to episode of care or not applicable Multiparity Special screening examination for viral disease Special screening examination for unspec ified viral disease Nausea Nausea alone Obesity in Obesity complicating , childbir th, or the puerperium, unspecified as to episode of care or not applicable BMI 32.0-32.9,adult Body Mass Index 32.0-32.9, adult documented in this encounter Insurance Payer Benefit Plan / Subscriber ID Effective Phone Address T ype Group Dates ASIA BETANCOURT [id number] 2018-Prese [address] Medic [place] [id number] MANAGED MEDICAID [place], [place] documented as of this encounter Advance Directives Type Date Recorded Patient Blood Coordinator Explanati on Advance Directives and Living Will Power of Street Photographer Name Relationship Healthcare Agent Relationship Co mmunication Floyd Brown Father Health Care Agent Preet Coffey Other Health Care Agent [place] Fuentes Spouse [facility] Health Care Agent (Mobile)
--- OUTSIDE RECORDS SUMMARY | 2020-08-23 10:37 | XMS REPORT | Continuity of Care Document ---
:1990 Author Organization [facility] Address [address] [place] [place] [address] Care Team Providers Name Role Phone Jim Lauren WELL[place] Attending Clinician Problems This patient has no known problems. Allergies, Adverse Reactions, Alerts This patient has no known allergies or adverse reactions. Medications This patient has no known medications. Procedures This patient has no known procedures. Encounters Start End Encounter Admission Attending Care Care Encounter Source Date/Time Date/Time Type Type Clinicians Facility Department ID 2020-08-17 2020-08-17 Telephone Jim [facility] [id number] 00:00:00 00:00:00 Cornelius Aguilar [facility] [place] [id number] [facility] [id number] MATERNAL [id number] & CHILD 107 [facility] 2020-08-04 2020-08-04 Telephone Jim VAJENY [id number] 00:00:00 00:00:00 Cornelius Aguilar [place] [id number] [facility] [id number] MATERNAL [id number] & CHILD 107 [facility] 2020-08-03 2020-08-03 Telephone Jim [facility] [id number] 00:00:00 00:00:00 Cornelius Aguilar [facility] [address] [place] [id number] [facility] [id number] MATERNAL [id number] & CHILD [address] [place] [address] Results This patient has no known results.
--- OUTSIDE RECORDS SUMMARY | 2020-08-23 10:37 | XMS REPORT | Summary of Care ---
:1990 Author Organization [facility] Address [address] [place] [address] Care Team Providers Name Role Phone Saravia, E Insurance Hmo Lauren Fernandez HEAD OF GEOGRAPHY Primary Care Provider Reason for Visit Reason Comments Assessment Encounter Details Date Type Department Care Team Description 08/02/2020 Telephone [facility] RMP- A Cornelius Allen, ELIZ Assessment [address] [facility] [address] [place] [address] [address] [place] [address] [phone] Allergies Active Allergy Reactions Severity Noted Date Comments Ibuprofen Hives 04/15/2014 [place] Hives 04/15/2014 Sodium Citrate (Bulk) Nausea and/or Vomiting 9 documented as of this encounter (statuses as of 08/02/2020) Medications No known medicationsdocumented as of this encounter (statuses as of 08/02/2020) Active Problems Problem Noted Date Encounter for care of lactating mother 12/26 Atypical squamous cells of undetermined significance ( ASCUS) on 12/18/2018 Papanicolaou smear of cervix BMI 30.0-30.9,adult 05/31/2018 Well woman exam 06/04/2016 Obesity, unspecified classification, unspecified obesi ty type, unspecified 01/25/2015 whether serious comorbidity present Overview: ICD10 Diagnosis Term Pin Inserter Regulator Utility Encounter for IUD removal and reinsertion 01/18/2015 ASCUS on Pap smear 04/15/2014 documented as of this encounter (statuses as of 08/02/2020) Resolved Problems Problem Noted Date Resolved Date S/P primary low transverse 12/20/2018 37 weeks gestation of 12/18/2018 01/08/20 19 [place] Hick's contraction 12/12/2018 01/08/2019 Abnormal maternal glucose tolerance, antepartum 12/11/2018 01/08/2019 33 weeks gestation of 11/22/2018 12/18/19 19 contractions 11/22/2018 12/18/2018 Nausea & vomiting 10/14/2018 11/21/2018 Trichomonal vaginitis during in second trimester 1 [...] non-immune status, antepartum 05/21/2018 Overview: Address pp Supervision of high-risk 05/20/201801/08 History of delivery 05/20/2018 01/08/2019 Overview: X2 per patient ROR requested Multiparity 05/20/2018 01/08/2019 Request for sterilization 05/17/2016 11/27/2017 Anxiety and depression 05/17/2016 09/25/2018 Right knee pain 10/10/2015 06/04/2016 Irregular menstrual cycle 01/25/2015 09/25/2018 Other malaise and fatigue 01/25/2015 06/04/2016 Contraceptive management 01/25/2015 05/20/2018 Overview: ICD10 Diagnosis Term Pin Inserter Regulator Utility Breast tenderness in female 01/25/2015 05/20/2018 Not immune to rubella 04/16/2014 06/04/2016 Overview: ICD10 Diagnosis Term Pin Inserter Regulator Utility documented as of this encounter (statuses as of 08/02/2020) Immunizations Name Administration Dates Next Due HPV9 06/04/2016 MMR 12/20/2018 (Deferred: - not available f rom pharmacy) TDAP 04/06/2015 TDAP (ADACEL) VACCINE 12/11/2018 Td 11/25/2004 Varicella (varivax)(chicken pox) 12/20/2018 documented as of this encounter Social History Tobacco Use Types Packs/Day Years Used Date Never Smoker Smokeless Tobacco: Never Used Alcohol Use Drinks/Week oz/Week Comments Yes 0 Standard drinks or equivalent 0.0 socially Sex Assigned at Date Recorded Not on file documented as of this encounter Last Filed Vital Signs Not on filedocumented in this encounter Miscellaneous Notes Telephone Encounter - Roselyn Moore RN - 08/02/2020 3:32 PM Annalee Nicolemeera is a 29 year old female Patient had questions regarding her NOB appointment tomorrow and if she would have an US the day of appointment. Patient was explained how the NOB visits are, patient verbalized understanding. Patient will be in tomorrow for appointment. elephone Encounter - Janell Lynne - 08/02/2020 2:20 PM ALMATSuraj Nicolemeera is a 29 year old female Patient requesting to speak with nurse, please call patient [phone] (home) documented in this encounter Plan of Treatment Date Type Specialty Care Team Description 08/03/2020 Office Visit OB Satellites Cornelius Fernandez, HEAD OF GEOGRAPHY [address] [place] [address] [phone] 4, [facility] Room 08/03/2020 Initial Visit OB Satellites Lauren Fernandez R, HEAD OF GEOGRAPHY [address] [place], [place] [address] [phone] Health Maintenance Due Date Last Done Comments Depression Screening 2002 VARICELLA VACCINES (2 of 2 01/17/2019 12/20/2018 - 13+ 2-dose series) INFLUENZA VACCINE (#1) 2020 PAP SMEAR 11/27/2020 11/27/2017, 04/15/2014, 08/08/2012, Additional history exists DTaP,Tdap,and Td Vaccines 12/11/2028 12/11/2018, 04/06/2015 , (4 - Td) 11/25/2004 PNEUMOCOCCAL 0-64 YEARS Aged Out No longe r eligible COMBINED SERIES based on patient 's age to complete this topic documented as of this encounter Results Not on filedocumented in this encounter Insurance Payer Benefit Plan / Subscriber ID Effective Phone Address [facility] Group Dates BETANCOURT BETANCOURT [id number] 2018-Anupama [employer] Medic [place] [id number] MA[place]ED MED[place] documented as of this encounter Advance Directives Type Date Recorded Patient Sexual Abuse Counsellor Explanati on Advance Directives and Living Will Power of It Risk And Assurance Senior Manager Name Relationship Healthcare Agent Relationship Co mmunication Floyd Brown [facility] Health Care Agent Preet Coffey Other Health Care Agent [place] Fuentes Spouse [facility] Health Care [phone] Agent (Mobile)
--- OUTSIDE RECORDS SUMMARY | 2020-08-23 10:37 | XMS REPORT | Summary of Care ---
:1990 Author Organization [facility] - Health Address [address] [place] [address] Care Team Providers Name Role Phone Gamal Saravia Insurance Hmo Lauren Fernandez Primary Care Provider Encounter Details Date Type Department Care Team Description 08/03/2020 Orders Only [facility] Doctor Unassigned, No [address] [facility] [place] [address] [address] [place] [address] Allergies Active Allergy Reactions Severity Noted Date Comments Ibuprofen Hives 04/15/2014 [place] Hives 04/15/2014 Sodium Citrate (Bulk) Nausea and/or Vomiting 9 documented as of this encounter (statuses as of 08/03/2020) Medications No known medicationsdocumented as of this encounter (statuses as of 08/03/2020) Active Problems Problem Noted Date Encounter for care of lactating mother 12/26 Atypical squamous cells of undetermined significance ( ASCUS) on 12/18/2018 Papanicolaou smear of cervix BMI 30.0-30.9,adult 05/31/2018 Well woman exam 06/04/2016 Obesity, unspecified classification, unspecified obesi ty type, unspecified 01/25/2015 whether serious comorbidity present Overview: ICD10 Diagnosis Term Corporate Quality Engineer Utility Encounter for IUD removal and reinsertion 01/18/2015 ASCUS on Pap smear 04/15/2014 documented as of this encounter (statuses as of 08/03/2020) Resolved Problems Problem Noted Date Resolved Date S/P primary low transverse 12/20/2018 37 weeks gestation of 12/18/2018 01/08/20 19 [place] Alfred[place] Hick's contraction 12/12/2018 01/08/2019 Abnormal maternal glucose [...] management 01/25/2015 05/20/2018 Overview: ICD10 Diagnosis Term Corporate Quality Engineer Utility Breast tenderness in female 01/25/2015 05/20/2018 Not immune to rubella 04/16/2014 06/04/2016 Overview: ICD10 Diagnosis Term Corporate Quality Engineer Utility documented as of this encounter (statuses [...] Signs Not on filedocumented in this encounter Plan of Treatment Date Type Specialty Care Team Description 08/03/2020 Office Visit OB SatelliteCornelius Hudson, SURGICAL BRACE MAKER [address] [place] [address] [phone] Arrived 4, [facility] Room 08/03/2020 Initial Visit OB Lauren Bird, SURGICAL BRACE MAKER [address] [place], [place] [address] [phone] Health Maintenance Due Date Last Done Comments [...] Name Priority Date/Time Associated Diagnosis Comme nts ASSIGNMENT OF BENEFITS Routine 08/03/2020 12:41 PM CDT documented in this encounter Results Not on filedocumented in this encounter Insurance Payer Benefit Plan / Subscriber ID Effective Phone Address T ype Group Dates BETANCOURT BETANCOURT [id number] 2018-Anupama [place] Medic [place] [id number] [place] MED[place] documented as of this encounter Advance Directives Type Date Recorded 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
--- OUTSIDE RECORDS SUMMARY | 2020-08-23 10:38 | XMS REPORT | Summary of Care ---
:1990 Author Organization [facility] Address [address] [place] [address] Care Team Providers Name Role Phone Gamal Saravia Insurance Hmo Lauren Fernandez Primary Care Provider Reason for Referral (Routine) Status Reason Specialty Diagnoses / Referred By Referred To Procedures Contact Contact New Request Maternal Diagnoses Supervision of high risk in first trimester Cornelius Fernandez Medicine Procedures CONSULT MATERNAL MEDICINE ULTRASOUND Preferred Location: ELIZ Holland [address] [place] [address] Reason for Visit Reason Comments New OB Visit Encounter Details Date Type Department Care Team Description [facility] upervision of high risk in first trimester (Primary Dx); Visit ELIZ Holland Previous section complicating p regnancy; [address] [place] [address] [place] V NANCY (vaginal after ) trial; [facility] Mult[facility]; [place], [place] Special screeni ng examination for viral disease; [id number] Nausea; [phone] Obesity in ; [phone] BMI 32.0-32.9,a dult (Fax) Allergies Active Allergy Reactions Severity Noted Date Comments Ibuprofen Hives 04/15/2014 [place] Hives 04/15/2014 Sodium Citrate (Bulk) Nausea and/or Vomiting 9 documented as of this encounter (statuses as of 08/03/2020) Medications Medication Sig Dispensed Refills Start Date End Date Status ondansetron HCl (ZOFRAN Take by mouth. 0 Active ORAL) vit Take 1 Packet by 30 Each 6 08/03/2020 Active 96-psrg-oxrxz-dha mouth daily. 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 Family And Consumer Sciences Professor Utility Encounter for IUD removal and reinsertion 01/18/2015 ASCUS on Pap smear 04/15/2014 Estimated Date of Delivery Comments Yes 03/15/2021 Based on last menstr ual period of 06/08/2020 (Approximate) documented as of this encounter (statuses as of 08/03/2020) Resolved Problems Problem Noted Date Resolved Date 37 weeks gestation of 12/18/2018 01/08/20 19 [place] Hick's contraction 12/12/2018 01/08/2019 Abnormal maternal glucose [...] management 01/25/2015 05/20/2018 Overview: ICD10 Diagnosis Term Family And Consumer Sciences Professor Utility Breast tenderness in female 01/25/2015 05/20/2018 Not immune to rubella 04/16/2014 06/04/2016 Overview: ICD10 Diagnosis Term Family And Consumer Sciences Professor Utility documented as of this encounter (statuses as of 08/03/2020) Immunizations Name Administration Dates Next Due HPV9 06/04/2016 MMR 12/20/2018 (Deferred: - not available f [facility]) TDAP 04/06/2015 TDAP (ADACEL) VACCINE 12/11/2018 [...] in this encounter Progress Notes Cornelius Fernandez, BOILER INSPECTOR - 08/03/2020 1:15 PM CDT Chief complaint: [...] Manny Gray; Location: Labor and Delivery - [place] Social History Socioeconomic History Marital status: Spouse [...] file Gets together: Not on file Attends restorationism service: Not on file Active member of [...] sexual or emotional abuse. Only outside cats. Lutheran: None Patient lives with spouse and kids. Social History Substance and Sexual Activity Sexual Activity Yes Partners: Male Comment: last sexual intercourse 10/2018 Genetic Screen Autism / Mental Retardation: No Phillip Disease: No Congenital Heart Defect: No Cystic Fibrosis: No Down Syndrome: No Familial Dysautonomia: No Hemophilia or other Blood Disorders: No [place] Chorea: No Maternal Metabolic Disorder--specify (eg. Type [...] age. Normal hair distribution. No labial lesion. Brush Holder Assembler present for the exam: ELIZ Kaufman student [...] PRANDIAL, CONSULT MATERNAL MEDICINE ULTRASOUND Preferred Location: [facility] vit 95-pxxz-wgzor-dha (SELECT-OB + DHA) 29 mg iron-1 mg [...] reviewed with patient. documented in this encounter Miscellaneous Notes Addendum Note - Fela Brumfield - 08/03/2020 1:15 PM CDT Addended by: FELA BRUMFIELD on: 08/03/2020 02:28 PM Modules accepted: Orders documented in this encounter Plan of Treatment Date Type Specialty Care Team Description 08/31/2020 Routine Visit OB Satellites Lauren Fernandeznda Lauren, BOILER INSPECTOR [address] [place], [place] [address] [phone] Name Type Priority Associated Diagnoses Date/Ti me GLUCOSE 1 HOUR POST LAB Routine Supervision of high r isk 08/03/2020 2:17 PM CDT PRANDIAL in first trimester SARS-COV-2 IGG LAB Routine Special screening 08/03/20 20 2:17 PM CDT examination for viral disease CBC WITH DIFF LAB Routine Supervision of high risk 2:17 PM CDT in first trimester HEPATITIS B SURFACE LAB Routine Supervision of high r isk 08/03/2020 2:17 PM CDT ANTIGEN in first trimester HIV 1/2 AG-AB WITH LAB Routine Supervision of high ri sk 08/03/2020 2:17 PM CDT REFLEX in first trimester RUBELLA SCREEN (JESSICA) LAB Routine Supervision of hig h risk 08/03/2020 2:17 PM CDT IGG in first trimester GALV ONLY - SYPHILIS LAB Routine Supervision of high risk 08/03/2020 2:17 PM CDT IGG/IGM in first trimester URINE CULTURE LAB Routine Supervision of high risk 2:28 PM CDT in first trimester VZV ANTIBODY SCREEN LAB Routine Supervision of high r isk 08/03/2020 2:17 PM CDT in first trimester Name Type Priority Associated Diagnoses Order S chedule CBC WITH DIFF LAB Routine Supervision of [...] Diagnoses Diagnosis Supervision of high risk in rst trimester - Primary Unspecified high-risk Previous [...] / Subscriber ID Effective Phone Address T e Group Dates ASIA BETANCOURT [id number] 2018-Anupama HIDALGO Medic aid [facility] 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 Health Care Agent (Mobile)
--- OUTSIDE RECORDS SUMMARY | 2020-08-23 10:38 | XMS REPORT | Summary of Care ---
:1990 Author Organization [facility] Address [address] [place] [address] Care Team Providers Name Role Phone Saravia, E Insurance Hmo Lauren Fernandez FOOD SERVICE DRIVER Primary Care Provider Reason for Visit Reason Comments Rx Concern/Question requesting nausea medication Encounter Details Date Type Department Care Team Description 08/03/2020 Telephone [facility]- Cornelius Fernandez, Rx Concern/Question [facility] (requesting nausea [address] [place] [address] [place] medication) [place] [address] [place], [place] [phone] [id number] [phone] Allergies Active Allergy Reactions Severity Noted Date Comments Ibuprofen Hives 04/15/2014 [place] Hives 04/15/2014 Sodium Citrate (Bulk) Nausea and/or Vomiting 9 documented as of this encounter (statuses as of 08/04/2020) Medications Medication Sig Dispensed Refills Start Date End Date Status ondansetron HCl Take by mouth. 0 Active (ZOFRAN ORAL) vit Take 1 Packet by 30 Each 6 08/03/2020 Active 74-efba-wqpfy-dha mouth daily. (SELECT-OB + DHA) 29 mg iron-1 mg -250 mg combo packIndications: Supervision of high risk in first trimester proMETHazine 25 mg Take 1 tablet by 30 tablet 1 08/04/2020 Active tabletIndications: mouth every 4 Nausea (four) hours as needed for Nausea and Vomiting (N/V). documented as of this encounter (statuses as of 08/04/2020) Active Problems Problem Noted Date Desires (vaginal after ) trial 07/2020 Special screening examination for viral disease 2019 Encounter for care of lactating mother 12/26 Previous section complicating 12/20 Atypical squamous cells of undetermined significance ( ASCUS) on 12/18/2018 Papanicolaou smear of cervix Nausea 10/14/2018 BMI 32.0-32.9,adult 05/31/2018 Maternal varicella, non-immune 05/21/2018 Overview: Address pp Rubella non-immune status, antepartum 05/21/2018 Overview: Address pp Supervision of high risk in first trimester 05/20/2018 Multiparity 05/20/2018 Well woman exam 06/04/2016 Obesity in 01/25/2015 Overview: ICD10 Diagnosis Term Code Clerk Utility Encounter for IUD removal and reinsertion 01/18/2015 ASCUS on Pap smear 04/15/2014 Estimated Date of Delivery Comments Yes 03/15/2021 Based on last menstr ual period of 06/08/2020 (Approximate) documented as of this encounter (statuses as of 08/04/2020) Resolved Problems Problem Noted Date Resolved Date 37 weeks gestation of 12/18/2018 01/08/20 19 [place] Hick's contraction 12/12/2018 01/08/2019 Abnormal maternal glucose [...] 8 Family history of deafness 05/27/2018 01/08/2019 History of delivery 05/20/2018 01/08/2019 Overview: X2 per patient ROR requested Request for sterilization 05/17/2016 11/27/2017 Anxiety and depression 05/17/2016 09/25/2018 Right knee pain 10/10/2015 06/04/2016 Irregular menstrual cycle 01/25/2015 09/25/2018 Other malaise and fatigue 01/25/2015 06/04/2016 Contraceptive management 01/25/2015 05/20/2018 Overview: ICD10 Diagnosis Term Code Clerk Utility Breast tenderness in female 01/25/2015 05/20/2018 Not immune to rubella 04/16/2014 06/04/2016 Overview: ICD10 Diagnosis Term Code Clerk Utility documented as of this encounter (statuses as of 08/04/2020) Immunizations Name Administration Dates Next Due HPV9 06/04/2016 MMR 12/20/2018 (Deferred: - not available f [facility] pharmacy) TDAP 04/06/2015 TDAP (ADACEL) [...] this encounter Miscellaneous Notes Telephone Encounter - J Luis Sapp RN - 08/04/2020 4:11 PM CDTNotified patient nausea medication has been sent to pharmacy. Pt verbalized understanding. J LUIS SAPP RN 08/04/2020 4:12 PM Telephone Encounter - Alfreda Vaughn LVN - 08/04/2020 11:41 AM Annalee Luly Fuentes is a 29 year old female Attempted to call patient, no answer,vm full. elephone Encounter - Cornelius Fernandez FNP - 08/04/2020 11:09 AM CDTRX ordered for nausea. elephone Encounter - Barbie Quesada - 08/03/2020 5:00 PM Annalee Luly Fuentes is a 29 year old female Patient is requesting prescription for nausea, send prescription to [facility] in [place] documented in this encounter Plan of Treatment Date Type Specialty Care Team Description 08/24/2020 Roofing Technician Visit Maternal Medicine 08/31/2020 Routine Visit OB Satellites Cornelius Fernandez FNP [address] [place] [address] [phone] Health Maintenance Due Date Last Done Comments [...] Results Not on filedocumented in this encounter Visit Diagnoses Diagnosis Nausea - Primary Nausea alone documented in this encounter Insurance Payer Benefit Plan / Subscriber ID Effective Phone Address T ype Group Dates ASIA BETANCOURT [id number] 2018-Anupama [place] Medic aid [place] [id number] [place] documented as of this encounter Advance Directives Type Date Recorded 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
--- OUTSIDE RECORDS SUMMARY | 2020-08-23 10:38 | XMS REPORT | Summary of Care ---
:1990 Author Organization [facility] Address [address] [place] [address] Care Team Providers Name Role Phone Gamal Saravia Insurance Hmo Lauren Fernandez Primary Care Provider Reason for Referral (Routine) Status Reason Specialty Diagnoses / Referred By Referred To Procedures Contact Contact New Request Maternal Diagnoses Supervision of high risk in first trimester Cornelius Fernandez Medicine Procedures CONSULT MATERNAL MEDICINE ULTRASOUND Preferred Location: ELIZ Holland [address] [place] [address] Reason for Visit Reason Comments New OB Visit Encounter Details Date Type Department Care Team Description [facility] upervision of high risk in first trimester (Primary Dx); Visit [facility] Previous section complicating p regnancy; [address] [place] [address] [place] V NANCY (vaginal after ) trial; [facility]arity; [place], [place] Special screeni ng examination for viral disease; [id number] Nausea; [phone] Obesity in ; [phone] BMI 32.0-32.9,a dult (Fax) Allergies Active Allergy Reactions Severity Noted Date Comments Ibuprofen Hives 04/15/2014 [place] Hives 04/15/2014 Sodium Citrate (Bulk) Nausea and/or Vomiting 9 documented as of this encounter (statuses as of 08/03/2020) Medications Medication Sig Dispensed Refills Start Date End Date Status ondansetron HCl (ZOFRAN Take by mouth. 0 Active ORAL) vit Take 1 Packet by 30 Each 6 08/03/2020 Active 29-gbub-olepi-dha mouth daily. 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 Wire Winder Utility Encounter for IUD removal and reinsertion 01/18/2015 ASCUS on Pap smear 04/15/2014 Estimated Date of Delivery Comments Yes 03/15/2021 Based on last menstr ual period of 06/08/2020 (Approximate) documented as of this encounter (statuses as of 08/03/2020) Resolved Problems Problem Noted Date Resolved Date 37 weeks gestation of 12/18/2018 01/08/20 19 [place] Hick's contraction 12/12/2018 01/08/2019 Abnormal maternal glucose [...] management 01/25/2015 05/20/2018 Overview: ICD10 Diagnosis Term Wire Winder Utility Breast tenderness in female 01/25/2015 05/20/2018 Not immune to rubella 04/16/2014 06/04/2016 Overview: ICD10 Diagnosis Term Wire Winder Utility documented as of this encounter (statuses as of 08/03/2020) Immunizations Name Administration Dates Next Due HPV9 06/04/2016 MMR 12/20/2018 (Deferred: - not available f [facility] pharmacy) TDAP 04/06/2015 TDAP (ADACEL) [...] in this encounter Progress Notes Cornelius Fernandez, PRACTICE ARCHITECT - 08/03/2020 1:15 PM CDT Chief complaint: [...] Manny Gray; Location: Labor and Delivery - [place] Social History Socioeconomic History Marital status: Spouse [...] file Gets together: Not on file Attends mormonism service: Not on file Active member of [...] sexual or emotional abuse. Only outside cats. Muslim: None Patient lives with spouse and kids. Social History Substance and Sexual Activity Sexual Activity Yes Partners: Male Comment: last sexual intercourse 10/2018 Genetic Screen Autism / Mental Retardation: No Phillip Disease: No Congenital Heart Defect: No Cystic Fibrosis: No Down Syndrome: No Familial Dysautonomia: No Hemophilia or other Blood Disorders: No Morris Chorea: No Maternal Metabolic Disorder--specify (eg. Type [...] age. Normal hair distribution. No labial lesion. Rv Servicer present for the exam: ELIZ Kaufman student [...] PRANDIAL, CONSULT MATERNAL MEDICINE ULTRASOUND Preferred Location: [facility] vit 80-gqqw-ygdwe-dha (SELECT-OB + DHA) 29 mg iron-1 mg [...] Date Type Specialty Care Team Description 08/24/2020 Inner Tube Cutter Visit Maternal Medicine 08/31/2020 Routine Visit OB Satellites Cornelius Fernandez, PRACTICE ARCHITECT [address], [place] [address] [phone] Name Type Priority Associated Diagnoses Date/Ti me GLUCOSE 1 HOUR POST LAB Routine Supervision of high r isk 08/03/2020 2:17 PM CDT PRANDIAL in first trimester SARS-COV-2 IGG LAB Routine Special screening 08/03/20 20 2:17 PM CDT examination for viral disease CBC WITH DIFF LAB Routine Supervision of high risk 2:17 PM CDT in first trimester GC & CHLAMYDIA LAB Routine Supervision of high risk 0 08/03/2020 2:32 PM CDT AMPLIFIED ASSAY in first trimester HEPATITIS B SURFACE LAB [...] Address T ype Group Dates ASIA BETANCOURT [id number] 2018-Anupama Sands BOX Medic [facility] [place] [facility] [place] [id number] MANAGED MEDICAID [place] documented as of this encounter Advance Directives Type Date Recorded 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
--- OUTSIDE RECORDS SUMMARY | 2020-08-23 10:38 | XMS REPORT | Summary of Care ---
:1990 Author Organization [facility] Address [address] [place] [address] Care Team Providers Name Role Phone Saravia, E Insurance Hmo Lauren Fernandez TRUCK JUMPER Primary Care Provider Reason for Visit Reason Comments Rx Concern/Question requesting nausea medication Encounter Details Date Type Department Care Team Description 08/03/2020 Telephone [facility]- Conrelius Fernandez, Rx Concern/Question [facility] (requesting nausea [address] medication) [place] [address] [place], [place] [phone] [address] [phone] Allergies Active Allergy Reactions Severity Noted Date Comments Ibuprofen Hives 04/15/2014 [place] Hives 04/15/2014 Sodium Citrate (Bulk) Nausea and/or Vomiting 9 documented as of this encounter (statuses as of 08/04/2020) Medications Medication Sig Dispensed Refills Start Date End Date Status ondansetron HCl Take by mouth. 0 Active (ZOFRAN ORAL) vit Take 1 Packet by 30 Each 6 08/03/2020 Active 13-fgdq-mewwp-dha mouth daily. 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 Encounter for IUD removal and reinsertion 01/18/2015 ASCUS on Pap smear 04/15/2014 Estimated Date of Delivery Comments Yes 03/15/2021 Based on last menstr ual period of 06/08/2020 (Approximate) documented as of this encounter (statuses as of 08/04/2020) Resolved Problems Problem Noted Date Resolved Date 37 weeks gestation of 12/18/2018 01/08/20 19 [place] Hick's contraction 12/12/2018 01/08/2019 Abnormal maternal glucose [...] management 01/25/2015 05/20/2018 Overview: ICD10 Diagnosis Term Management Retail Intern Utility Breast tenderness in female 01/25/2015 05/20/2018 Not immune to rubella 04/16/2014 06/04/2016 Overview: ICD10 Diagnosis 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) TDAP 04/06/2015 TDAP (ADACEL) VACCINE 12/11/2018 [...] this encounter Miscellaneous Notes Telephone Encounter - VaughnAlfreda pachecoVALENCIA - 08/04/2020 11:41 AM ALMATSuraj Fuentes is a 29 year old female Attempted to call patient, no answer,vm full. elephone Encounter - Cornelius Fernandez FNP - 08/04/2020 11:09 AM CDTRX ordered for nausea. elephone Encounter - Barbie Quesada - 08/03/2020 5:00 PM Annalee Mauricio Clotilde Fuentes is a 29 year old female Patient is requesting prescription for nausea, [facility] [place] documented in this encounter Plan of Treatment Date Type Specialty Care Team Description 08/24/2020 Microgrinder Operator Visit Maternal Medicine 08/31/2020 Routine Visit OB Satellites Cornelius Fernandez FNP [address] [place] [address] [phone] Health Maintenance Due Date Last Done Comments [...] / Subscriber ID Effective Phone Address T [facility] Group Dates ASIA BETANCOURT [id number] 2018-Anupama HIDALGO Medic [facility] [place] [address] MANAGED MEDICAID [place] documented as of this encounter Advance Directives Type Date Recorded Patient Bandoleer Straightener Stamper Explanati on Advance Directives and Living Will Power of Director Case Name Relationship Healthcare Agent Relationship Co mmunication Floyd Brown Father Health Care Agent Preet Coffey Other Health Care Agent [place] Fuentes Spouse First [facility] Agent (Mobile)
--- OUTSIDE RECORDS SUMMARY | 2020-08-23 10:38 | XMS REPORT | Summary of Care ---
:1990 Author Organization [facility] Address [address] [place] [address] Care Team Providers Name Role Phone Saravia, E Insurance Hmo Lauren Fernandez FERTILIZING MACHINE OPERATOR Primary Care Provider Reason for Visit Reason Comments Rx Concern/Question requesting nausea medication Encounter Details Date Type Department Care Team Description 08/03/2020 Telephone [facility]- Cornelius Fernandez, Rx Concern/Question [facility] (requesting nausea [address] medication) [place] [address] [place], [place] [phone] [address] [phone] Allergies Active Allergy Reactions Severity Noted Date Comments Ibuprofen Hives 04/15/2014 [place] Hives 04/15/2014 Sodium Citrate (Bulk) Nausea and/or Vomiting 9 documented as of this encounter (statuses as of 08/04/2020) Medications Medication Sig Dispensed Refills Start Date End Date Status ondansetron HCl Take by mouth. 0 Active (ZOFRAN ORAL) vit Take 1 Packet by 30 Each 6 08/03/2020 Active 08-zsqi-axlkm-dha mouth daily. 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 Encounter for IUD removal and reinsertion 01/18/2015 ASCUS on Pap smear 04/15/2014 Estimated Date of Delivery Comments Yes 03/15/2021 Based on last menstr ual period of 06/08/2020 (Approximate) documented as of this encounter (statuses as of 08/04/2020) Resolved Problems Problem Noted Date Resolved Date 37 weeks gestation of 12/18/2018 01/08/20 19 [place] Hick's contraction 12/12/2018 01/08/2019 Abnormal maternal glucose [...] management 01/25/2015 05/20/2018 Overview: ICD10 Diagnosis Term Switchboard Clerk Utility Breast tenderness in female 01/25/2015 05/20/2018 Not immune to rubella 04/16/2014 06/04/2016 Overview: ICD10 Diagnosis Term Switchboard Clerk Utility documented as of this encounter (statuses as of 08/04/2020) Immunizations Name Administration Dates Next Due HPV9 06/04/2016 MMR 12/20/2018 (Deferred: - not available f [facility]) TDAP 04/06/2015 TDAP (ADACEL) VACCINE 12/11/2018 [...] this encounter Miscellaneous Notes Telephone Encounter - Cornelius Fernandez FNP - 08/04/2020 11:09 AM CDTRX ordered for nausea. elephone Encounter - Barbie Quesada - 08/03/2020 5:00 PM Annalee Mauricio Clotilde Fuentes is a 29 year old female Patient is requesting prescription for nausea, [facility] [place] documented in this encounter Plan of Treatment Date Type Specialty Care Team Description 08/24/2020 Transfer Driver Visit Maternal Medicine 08/31/2020 Routine Visit OB Satellites Cornelius Fernandez FNP [address] [place], [place] [address] [phone] Health Maintenance Due Date Last Done Comments [...] Address T ype Group Dates ASIA BETANCOURT [id number] 2018-Anupama Sands BOX Medic [place] [phone] MA[place]ED MEDICA[place] documented as of this encounter Advance Directives Type Date Recorded Patient Transit Driver Explanati on Advance Directives and Living Will Power of Automatic Line Set Up Mechanic Name Relationship Healthcare Agent Relationship Co mmunication Floyd Brown Father Health Care Agent Preet Coffey Other Health Care Agent [place] Nicolemeera Spouse First [facility] Agent (Mobile)
--- OUTSIDE RECORDS SUMMARY | 2020-08-23 10:39 | XMS REPORT | Summary of Care ---
:1990 Author Organization [facility] Address [address] [place] [address] Care Team Providers Name Role Phone Saravia, E Insurance Hmo Lauren Fernandez [facility] Primary Care Provider Reason for Visit Reason Comments Rx Concern/Question Encounter Details Date Type Department Care Team Description 08/17/2020 Telephone [facility]- Cornelius Fernandez, Rx Concern/Question [facility] [address] [facility] [address] [place] [address] [place] [phone] Allergies Active Allergy Reactions Severity Noted Date Comments Ibuprofen Hives 04/15/2014 [place] Hives 04/15/2014 Sodium Citrate (Bulk) Nausea and/or Vomiting 9 documented as of this encounter (statuses as of 08/18/2020) Medications Medication Sig Dispensed Refills Start Date End Date Status ondansetron HCl Take by mouth. 0 Active (ZOFRAN ORAL) vit Take 1 Packet by 30 Each 6 08/03/2020 Active 87-vlsz-zhubh-dha mouth daily. (SELECT-OB + DHA) 29 mg iron-1 mg -250 mg combo packIndications: Supervision of high risk in first trimester proMETHazine 25 mg Take 1 tablet by 30 tablet 1 08/04/2020 Active tabletIndications: mouth every 4 Nausea (four) hours as needed for Nausea and Vomiting (N/V). 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 Encounter for IUD removal and reinsertion 01/18/2015 ASCUS on Pap smear 04/15/2014 Estimated Date of Delivery Comments Yes 03/15/2021 Based on last menstr ual period of 06/08/2020 (Approximate) documented as of this encounter (statuses as of 08/18/2020) Resolved Problems Problem Noted Date Resolved Date 37 weeks gestation of 12/18/2018 01/08/20 19 [place] Hick's contraction 12/12/2018 01/08/2019 Abnormal maternal glucose [...] management 01/25/2015 05/20/2018 Overview: ICD10 Diagnosis Term Jig And Fixture Repairer Utility Breast tenderness in female 01/25/2015 05/20/2018 Not immune to rubella 04/16/2014 06/04/2016 Overview: ICD10 Diagnosis Term Jig And Fixture Repairer Utility documented as of this encounter (statuses as of 08/18/2020) Immunizations Name Administration Dates Next Due HPV9 06/04/2016 MMR 12/20/2018 (Deferred: - not available f [facility]) TDAP 04/06/2015 TDAP (ADACEL) [...] this encounter Miscellaneous Notes Telephone Encounter - Alfreda Vaughn LVN - 08/18/2020 2:15 PM CDTSuraj Mauricio Clotilde Fuentes is a 29 year old female Patient stated the promethazine is not working. Stated she has tried this medication x2 weeks. Patient stated she is still having n/v every day. Informed patient Zofran is not prescribed during . Referred patient to safe medication list and advised to take BID and call if symptoms do not subside, verbalized understanding. elephone Encounter - Barbie Quesada - 08/18/2020 1:42 PM ALMATSuraj Desiroskar Alejandreamita Gina is a 29 year old female Patient requesting a prescription of Zofran states the other medication does not work. Patient [facility] [place]. elephone Encounter - Nidia Ernandez - 08/17/2020 3:35 PM CDShamar Zuritajacquelineamita Gina is a 29 year old female The patient is requesting an rx for zofran dissolvable tablets because the promethazine is not working documented in this encounter Plan of Treatment Date Type Specialty Care Team Description 08/24/2020 Behavioral Sciences Department Chair Visit Maternal Medicine 08/31/2020 Routine Visit OB Satellites Cornelius Fernandez, TERRAZZO FINISHER HELPER [address] [place] [address] [phone] Health Maintenance Due Date Last Done Comments [...] Address T ype Group Dates ASIA BETANCOURT [id number] 2018-Anupama HIDALGO Medic [facility]CARE [place] [facility] [place] [address] MANAGED MEDICAID [place] documented as of this encounter Advance Directives Type Date Recorded Patient Sweet Potato Disintegrator Explanati on Advance Directives and Living Will Power of Churn Driller Helper Name Relationship Healthcare Agent Relationship Co mmunication Floyd Brown Father Health Care Agent Preet Coffey Other Health Care Agent [place] Fuentes Spouse First [facility] [phone] Agent (Mobile)
--- OUTSIDE RECORDS SUMMARY | 2020-08-23 10:39 | XMS REPORT | Summary of Care ---
:1990 Author Organization [facility] Address [address] [place] [address] Care Team Providers Name Role Phone Manjit E Insurance Hmo Lauren Fernandez [facility] Primary Care Provider Reason for Visit Reason Comments Letters [facility] / dental appt Encounter Details Date Type Department Care Team Description [facility]/04[facility]2020 [facility] ) [address] [facility] [address] [place] [address] [place], [place] [phone] [address] [phone] Allergies Active Allergy Reactions Severity Noted Date Comments Ibuprofen Hives 04/15/2014 [place] Hives 04/15/2014 Sodium Citrate (Bulk) Nausea and/or Vomiting 9 documented as of this encounter (statuses as of 08/04/2020) Medications Medication Sig Dispensed Refills Start Date End Date Status ondansetron HCl Take by mouth. 0 Active (ZOFRAN ORAL) vit Take 1 Packet by 30 Each 6 08/03/2020 Active 30-xrqh-jxlqy-dha mouth daily. 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 Stadium Manager Utility Encounter for IUD removal and reinsertion [...] management 01/25/2015 05/20/2018 Overview: ICD10 Diagnosis Term Stadium Manager Utility Breast tenderness in female 01/25/2015 05/20/2018 Not immune to rubella 04/16/2014 06/04/2016 Overview: ICD10 Diagnosis Term Stadium Manager Utility documented as of this encounter (statuses as of 08/04/2020) Immunizations Name Administration Dates Next Due HPV9 06/04/2016 MMR 12/20/2018 (Deferred: - not available f [facility]) TDAP 04/06/2015 TDAP (ADACEL) VACCINE [...] - J Luis Sapp RN - 08/04/2020 4:14 PM CDTNotified patient letter for dentist is ready for greens picker. Pt states she will greens picker tomorrow. J LUIS SAPP RN 08/04/2020 4:15 PM Telephone Encounter - Jamar Sabillon - 08/04/2020 3:08 PM ALMATSuraj Luly Fuentes is a 29 year old female Patient is needing a letter of good health for her dental appointment. Please contact patient she will be in to pick the letter up tomorrow. documented in this encounter Plan of Treatment Date Type Specialty Care Team Description 08/24/2020 Strip Stamp Straightener Visit Maternal Medicine 08/31/2020 Routine Visit OB Satellites Cornelius Fernandez, MEDICAL TRANSLATOR [address] [place] [address] Health Maintenance Due Date Last Done Comments [...] Address T ype Group Dates ASIA BETANCOURT [id number] 2018-Anupama HIDALGO Medic [place] [address] [place] documented as of this encounter Advance Directives Type Date Recorded Patient Extracorporeal Technician Explanati on Advance Directives and Living Will Power of Paradi Tender Name Relationship Healthcare Agent Relationship Co mmunication Floyd Brown Father Health Care Agent Preet Coffey Other Health Care Agent [place] Fuentes Spouse First [facility] [phone] Agent (Mobile)
[2020-08-23] MEDS ORDERED: ONDANSETRON 4 MG/2 ML VIAL ONE (11:02)
[2020-08-23] MEDS ORDERED: NA CHLORIDE 0.9% 2,000 ML ONE (11:02)
[2020-08-23 11:17] LABS: Absolute Lymphocytes (CBC) 1.8 K/uL (0.7-4.9); Basophils % 0.2 % (0-1.3); Hematocrit 43.8 % (36.0-45.0); Lymphocytes % 25.4 % (15.3-44.8); MPV 8.2 fL (7.6-11.3); RBC Red Blood Cell Count 4.89 M/uL (3.86-4.86)
[2020-08-23 11:39] LABS: Albumin 3.8 g/dL (3.4-5.0); Bilirubin Direct 0.1 mg/dL (0-0.2); Bilirubin Total 0.6 mg/dL (0.2-1.0); Potassium 3.6 mmol/L (3.5-5.1); Protein, Total 7.8 g/dL (6.4-8.2)
[2020-08-23] MEDS ORDERED: METOCLOPRAMIDE 10 MG/2mL INJ ONE (11:53)
--- NOTE | 2020-08-23 13:04 | EDPHYS ---
Physician Documentation [facility] Name: Suraj Fuentes Age: 29 yrs Sex: Female : 1990 Arrival Date: 08/23/2020 Time: 10:39 Bed 7 Private MD: ZOYA Physician Pancho Greene HPI: 08/23 10:46 This 29 yrs old Female presents to ER via EMS with complaints of jmm Nausea/Vomiting, . 10:46 The patient presents to the emergency department with nausea, vomiting. Onset: The jmm symptoms/episode began/occurred today. Possible causes: . The symptoms are aggravated by nothing. The symptoms are alleviated by nothing. This is a 29 year old female currently 11 weeks IUP that presents to the ED with complaints of nausea and vomiting she attributes to . Prescribed promethazine has not alleviated symptoms. Patient states she feels dehydrated. Denies vaginal bleeding or abdominal pain. . 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 - Social history:: Smoking status: . ROS: 10:46 Constitutional: Negative for fever, chills, and weight loss, Cardiovascular: Negative jmm for chest pain, palpitations, and edema, Respiratory: Negative for shortness of breath, cough, wheezing, and pleuritic chest pain. 10:46 Abdomen/GI: Positive for nausea, vomiting, and diarrhea. 10:46 All other systems are negative. Exam: 10:46 Constitutional: This is a well developed, well nourished patient who is awake, alert, jmm and in no acute distress. Head/Face: atraumatic. Eyes: EOMI, no conjunctival erythema appreciated ENT: Moist Mucus Membranes Neck: Trachea midline, Supple Chest/axilla: Normal chest wall appearance and motion. Cardiovascular: Regular rate and rhythm. No edema appreciated Respiratory: Normal respirations, no respiratory distress appreciated Abdomen/GI: Non distended, soft Back: Normal ROM Skin: General appearance color normal MS/ Extremity: Moves all extremities, no obvious deformities appreciated, no edema noted to the lower extremities Neuro: Awake and alert, normal gait Psych: Behavior is normal, Mood is normal, Patient is cooperative and pleasant Vital Signs: 10:40 BP 149 / 89; Pulse 99; Resp 19; Temp 98.8; Pulse Ox 100% ; Weight 81.65 kg; Pain 0/10; jl7 11:31 BP 117 / 65; Pulse 69; Resp 17; Pulse Ox 100% on R/A; tw2 12:09 BP 115 / 70; Pulse 63; Resp 16; Pulse Ox 100% ; jl7 12:59 BP 110 / 57; Pulse 78; Resp 16; Pulse Ox 100% on R/A; tw2 MDM: 10:40 Patient medically screened. michelle 13:01 Data reviewed: vital signs, nurses notes. Counseling: I had a detailed discussion with yang the patient and/or guardian regarding: the historical points, exam findings, and any diagnostic results supporting the discharge/admit diagnosis, lab results, the need for outpatient follow up, to return to the emergency department if symptoms worsen or persist or if there are any questions or concerns that arise at home. ED course: Patient is alert and non toxic in appearance in the ED. Patient states that she feels much better. Most likely n/v due to . Patient has had similar episodes with previous pregnancies. Patient is otherwise given strict return precautions. Patient understood and agrees with the plan of care. . 08/23 10:41 Order name: Basic Metabolic Panel; Complete Time: 11:40 [facility] 08/23 10:41 Order name: CBC with Diff; Complete Time: 11:40 [facility] 08/23 10:41 Order name: Hepatic Function; Complete Time: 11:40 [facility] 08/23 10:41 Order name: Lipase; Complete Time: 11:40 [facility] 08/23 13:04 Order name: Urine Dipstick--Ancillary (enter results) bd 08/23 10:41 Order name: IV Saline Lock; Complete Time: 10:50 [facility] 08/23 10:41 Order name: Labs collected and sent; Complete Time: 10:50 [facility] 08/23 10:41 Order name: Urine Dipstick-Ancillary (obtain specimen); Complete Time: 12:58 [facility] Administered Medications: 10:55 Drug: NS 0.9% 2000 ml Route: IV; Rate: 1 bolus; Site: right antecubital; jl7 12:59 Follow up: Response: No adverse reaction; IV Status: Completed infusion; IV Intake: tw2 2000ml 10:55 Drug: Zofran (Ondansetron) 4 mg Route: IVP; Site: right antecubital; jl7 11:32 Follow up: Response: No adverse reaction; Nausea unchanged tw2 11:44 Drug: Reglan 20 mg {Note: placed in 1L NS bolus and NS bag is labeled.} Route: IVP; tw2 Site: Other; 12:58 Follow up: Response: No adverse reaction; Marked relief of symptoms tw2 Disposition: 13:53 Co-signature as Attending Physician, Pancho Greene MD I agree with the assessment and jessica plan of care. Disposition: 08/23/20 13:03 Discharged to Home. Impression: Vomiting. - Condition is Stable. - Discharge Instructions: Eating Plan for Hyperemesis Gravidarum. - Prescriptions for promethazine 12.5 mg Oral tablet - take 1 tablet by ORAL route 4 times per day; 12 tablet. - Medication Reconciliation Form, Thank You Letter, Antibiotic Education, Prescription Opioid Use form. - Follow up: Private Physician; When: 2 - 3 days; Reason: Recheck today's complaints, Continuance of care, Re-evaluation by your physician. Signatures: Dispatcher [employer] EDPancho Edward MD MD cha Mickail, Joel, PA PA jmm Wise, Tara, RN RN tw2 Toni Bryant RN RN jl7 Corrections: (The following items were deleted from the chart) 13:08 13:03 08/23/2020 13:03 Discharged to Home. Impression: Vomiting. Condition is Stable. tw2 Forms are Medication Reconciliation Form, Thank You Letter, Antibiotic Education, Prescription Opioid Use. Follow up: Private Physician; When: 2 - 3 days; Reason: Recheck today's complaints, Continuance of care, Re-evaluation by your physician. yang
--- NOTE | 2020-08-23 13:04 | ER ---
Nurse's Notes [facility] Name: Suraj Fuentes Age: 29 yrs Sex: Female : 1990 Arrival Date: 08/23/2020 Time: 10:39 Bed 7 Private MD: Diagnosis: Vomiting Presentation: 08/23 10:40 Chief complaint: EMS states: N/V since this morning. 11 Weeks , pt denies jl7 abdominal pain. Coronavirus screen: Client denies travel out of the [place] in the last 14 days. At this time, the client does not indicate any symptoms associated with coronavirus-19. Ebola Screen: No symptoms or risks identified at this time. Initial Sepsis Screen: Does the patient meet any 2 criteria? No. Patient's initial sepsis screen is negative. Does the patient have a suspected source of infection? No. Patient's initial sepsis screen is negative. Risk Assessment: Do you want to hurt yourself or someone else? Patient reports no desire to harm self or others. Onset of symptoms was August 23, 2020. Care prior to arrival: None. 10:40 Method Of Arrival: EMS: [facility] 10:40 Acuity: SHAW 3 jl7 Triage Assessment: 10:40 General: Appears in no apparent distress. Behavior is calm, cooperative, appropriate tw2 for age. Pain: Denies pain. GI: Pt is actively vomiting Reports nausea, vomiting, since this morning, pt reports being 11 weeks . 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 - Social history:: Smoking status: . Screenin:41 Abuse screen: Denies threats or abuse. Nutritional screening: No deficits noted. tw2 Tuberculosis screening: No symptoms or risk factors identified. Fall Risk None identified. Assessment: 10:48 General: Appears in no apparent distress. obese, Behavior is calm, cooperative, tw2 appropriate for age. Pain: Denies pain. Neuro: Level of Consciousness is awake, alert, obeys commands, Oriented to person, place, time, situation. Cardiovascular: Heart tones S1 S2 Patient's skin is warm and dry. Respiratory: Airway is patent Respiratory effort is even, unlabored, Respiratory pattern is regular, symmetrical, Breath sounds are clear bilaterally. GI: Abdomen is round non-distended, obese, Bowel sounds present X 4 quads. Reports nausea, vomiting. : No signs and/or symptoms were reported regarding the genitourinary system. EENT: No signs and/or symptoms were reported regarding the EENT system. Derm: No signs and/or symptoms reported regarding the dermatologic system. Musculoskeletal: Range of motion: intact in all extremities. 11:31 Reassessment: No changes from previously documented assessment. Patient and/or family tw2 updated on plan of care and expected duration. Pain level reassessed. Patient is alert, oriented x 3, equal unlabored respirations, skin warm/dry/pink. provider notified. Patient states symptoms have not improved. 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 13:07 Reassessment: Patient appears in no apparent distress at this time. No changes from tw2 previously documented assessment. Patient and/or family updated on plan of care and expected duration. Pain level reassessed. Patient is alert, oriented x 3, equal unlabored respirations, skin warm/dry/pink. Patient states feeling better. Patient states symptoms have improved. Vital Signs: 10:40 BP 149 / 89; Pulse 99; Resp 19; Temp 98.8; Pulse Ox 100% ; Weight 81.65 kg; Pain 0/10; jl7 11:31 BP 117 / 65; Pulse 69; Resp 17; Pulse Ox 100% on R/A; tw2 12:09 BP 115 / 70; Pulse 63; Resp 16; Pulse Ox 100% ; jl7 12:59 BP 110 / 57; Pulse 78; Resp 16; Pulse Ox 100% on R/A; tw2 ED Course: 10:39 Patient arrived in ED. tw2 10:39 Topher Richmond PA is PHCP. [facility] 10:39 Pancho Greene MD is Attending Physician. [facility] 10:40 Toni Bryant RN is Primary Nurse. jl7 10:41 Arm band placed on. tw2 10:42 Triage completed. jl7 10:42 Placed in gown. Bed in low position. Pulse ox on. NIBP on. tw2 10:48 Inserted saline lock: 20 gauge in right antecubital area, using aseptic technique. tw2 Blood collected. 13:07 No provider procedures requiring assistance completed. IV discontinued, intact, tw2 bleeding controlled, No redness/swelling at site. Pressure dressing applied. Administered Medications: 10:55 Drug: NS 0.9% 2000 ml Route: IV; Rate: 1 bolus; Site: right antecubital; jl7 12:59 Follow up: Response: No adverse reaction; IV Status: Completed infusion; IV Intake: tw2 2000ml 10:55 Drug: Zofran (Ondansetron) 4 mg Route: IVP; Site: right antecubital; jl7 11:32 Follow up: Response: No adverse reaction; Nausea unchanged tw2 11:44 Drug: Reglan 20 mg {Note: placed in 1L NS bolus and NS bag is labeled.} Route: IVP; tw2 Site: Other; 12:58 Follow up: Response: No adverse reaction; Marked relief of symptoms tw2 Intake: 12:59 IV: 2000ml; Total: 2000ml. tw2 Outcome: 13:03 Discharge ordered by . yang 13:07 Discharged to home ambulatory. tw2 13:07 Condition: stable 13:07 Discharge instructions given to patient, Instructed on discharge instructions, follow up and referral plans. medication usage, Demonstrated understanding of instructions, follow-up care, medications, Prescriptions given X 1. 13:08 Patient left the ED. tw2 Signatures: Topher Richmond PA PA jmm Wise, Tara, RN RN tw2 Toni Bryant RN RN jl7
[2020-08-23 13:13] VITALS: TEMP 98.8; O2SAT 100
[2020-08-23 13:17] VITALS: BP 110/57
[2020-08-23 13:32] LABS: Urine Blood NEGATIVE (NEG); Urine Glucose NEGATIVE (NEG); Urine Protein NEGATIVE (NEG); Urine Specific Gravity 1.025 (1.005-1.030); Urine pH 7.5 (5.0-7.0)
== END 2020-08-23 13:08 | disposition home or self-care (01) ==
LOC: ER 10:35
DX: O21.0 Mild hyperemesis gravidarum (principal); Z3A.11 11 weeks gestation of pregnancy; Z88.6 Allergy status to analgesic agent; Z91.018 Allergy to other foods
CPT/HCPCS: 96361; 85025; 80048; 36415; 80076; 81003; 83690; 96375; 96374; 99284; J2765; J7030; J2405

== ENCOUNTER 2020-08-25 19:42 | Emergency (ER) | payer MEDICAID ==
[2020-08-25 20:41] LABS: Absolute Lymphocytes (CBC) 1.5 K/uL (0.7-4.9); Basophils % 0.3 % (0-1.3); Hematocrit 44.4 % (36.0-45.0); Lymphocytes % 17.1 % (15.3-44.8); MPV 8.3 fL (7.6-11.3); RBC Red Blood Cell Count 5.01 M/uL (3.86-4.86)
[2020-08-25] MEDS ORDERED: PROMETHAZINE INJ 25 MG/ML AMP ONE (20:51)
[2020-08-25] MEDS ORDERED: MEPERIDINE HCL 50 MG/ML ONE (20:51)
[2020-08-25] MEDS ORDERED: NA CHLORIDE 0.9% 1,000 ML ONE (20:51)
[2020-08-25 21:16] LABS: BUN Blood Urea Nitrogen 6 mg/dL (7-18); Bicarbonate 24 mmol/L (21-32); Glucose Level 95 mg/dL (74-106); HCG, Quantitative 117059 mIU/mL (1-3); Sodium Level 138 mmol/L (136-145)
[2020-08-25] MEDS ORDERED: ONDANSETRON 4 MG/2 ML VIAL ONE ×2 (22:10→23:09)
--- NOTE | 2020-08-25 22:58 | ER ---
Nurse's Notes [facility] Name: Suraj Fuentes Age: 29 yrs Sex: Female : 1990 Arrival Date: 08/25/2020 Time: 19:42 Bed 19 Private MD: Diagnosis: Nausea and vomiting;Generalized abdominal pain Presentation: 08/25 20:07 Chief complaint: Patient states: 7 weeks with severe abdominal pain for 1 day. ll1 + N/V. Coronavirus screen: Client denies travel out of the [place] in the last 14 days. At this time, the client does not indicate any symptoms associated with coronavirus-19. Ebola Screen: Patient denies travel to an Ebola-affected area in the 21 days before illness onset. Initial Sepsis Screen: Does the patient meet any 2 criteria? No. Patient's initial sepsis screen is negative. Risk Assessment: Do you want to hurt yourself or someone else? Patient reports no desire to harm self or others. Onset of symptoms was August 25, 2020. 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 - Social history:: Smoking status: Patient denies any tobacco usage or history of. Screenin:15 Abuse screen: Denies threats or abuse. Nutritional screening: No deficits noted. jb4 Tuberculosis screening: No symptoms or risk factors identified. Fall Risk None identified. Assessment: 20:45 General: Appears in no apparent distress. uncomfortable, Behavior is calm, cooperative, jb4 appropriate for age. Pain: Complains of pain in abdomen Pain does not radiate. Pain currently is 10 out of 10 on a pain scale. Quality of pain is described as crampy. Neuro: Level of Consciousness is awake, alert, obeys commands, Oriented to person, place, time, situation. Cardiovascular: Patient's skin is warm and dry. Respiratory: Airway is patent Respiratory effort is even, unlabored, Respiratory pattern is regular, symmetrical. GI: Abdomen is round non-distended, Reports lower abdominal pain, upper abdominal pain. : No signs and/or symptoms were reported regarding the genitourinary system. EENT: No signs and/or symptoms were reported regarding the EENT system. Derm: Skin is intact, Skin is pink, warm \T\ dry. Musculoskeletal: Circulation, motion, and sensation intact. Range of motion: intact in all extremities. 21:45 Reassessment: Patient appears in no apparent distress at this time. Patient and/or jb4 family updated on plan of care and expected duration. Pain level reassessed. Patient is alert, oriented x 3, equal unlabored respirations, skin warm/dry/pink. 22:24 Reassessment: Patient appears in no apparent distress at this time. Patient and/or jb4 family updated on plan of care and expected duration. Pain level reassessed. Patient is alert, oriented x 3, equal unlabored respirations, skin warm/dry/pink. 08/26 00:00 Reassessment: Patient appears in no apparent distress at this time. Patient and/or jb4 family updated on plan of care and expected duration. Pain level reassessed. Patient is alert, oriented x 3, equal unlabored respirations, skin warm/dry/pink. Vital Signs: 08/25 20:07 BP 148 / 90; Pulse 89; Resp 18; Temp 98.4; Pulse Ox 99% ; Weight 81.65 kg; Height 5 ft. ll1 2 in. (157.48 cm); Pain 10/10; 21:15 BP 120 / 63; Pulse 85; Resp 16; Pulse Ox 98% on R/A; jb4 22:15 BP 151 / 81; Pulse 63; Resp 16; Pulse Ox 98% on R/A; jb4 23:30 BP 124 / 59; Pulse 93; Resp 16; Pulse Ox 99% on R/A; jb4 20:07 Body Mass Index 32.92 (81.65 kg, 157.48 cm) ll1 ED Course: 19:42 Patient arrived in ED. cl3 20:08 Triage completed. ll1 20:09 Arm band placed on. ll1 20:12 Floyd Cardenas, ALFONZO is Primary Nurse. jb4 20:15 Patient has correct armband on for positive identification. Bed in low position. Call jb4 light in reach. Side rails up X 1. Pulse ox on. NIBP on. 20:22 Christine Solares FNP-C is PHCP. kb 20:22 Ye Corcoran MD is Attending Physician. kb 20:25 Initial lab(s) drawn, by me, sent to lab. Inserted saline lock: 18 gauge in right jb4 antecubital area, using aseptic technique. Blood collected. 20:42 PHCP role handed off by Christine Solares FNP-C kb 20:42 Neel Valenzuela PA is PHCP. kb 21:26 US Transvaginal Ob In Process Unspecified. EDMS 08/26 00:00 No provider procedures requiring assistance completed. IV discontinued, intact, jb4 bleeding controlled, No redness/swelling at site. Pressure dressing applied. Administered Medications: 08/25 20:48 Drug: Phenergan 12.5 mg Route: IVP; Site: right antecubital; jb4 21:45 Follow up: Response: No adverse reaction; Nausea unchanged 4 20:51 Drug: NS 0.9% 1000 ml Route: IV; Rate: 1000 ml; Site: right antecubital; jb4 20:51 Drug: Demerol 25 mg Route: IVP; Site: right antecubital; jb4 21:20 Follow up: Response: No adverse reaction; Pain is decreased; RASS: Alert and Calm (0) jb4 22:06 Drug: Zofran (Ondansetron) 4 mg Route: IVP; Site: right antecubital; jb4 22:30 Follow up: Response: No adverse reaction; Nausea is decreased jb4 23:00 Drug: Zofran (Ondansetron) 4 mg Route: IVP; Infused Over: 2 mins; Site: right jb4 antecubital; 23:30 Follow up: Response: No adverse reaction; Nausea unchanged jb4 23:29 Drug: Reglan 10 mg Route: IVP; Site: right antecubital; jb4 08/26 00:09 Follow up: Response: No adverse reaction; Marked relief of symptoms 4 08/25 23:30 Drug: Benadryl 25 mg Route: IVP; Site: right antecubital; jb4 08/26 00:09 Follow up: Response: No adverse reaction; Marked relief of symptoms [facility] Outcome: 10/01 22:58 Discharge ordered by MD. reyes 08/26 00:00 Discharged to home ambulatory, with family. jb4 Condition: stable Discharge instructions given to patient, family, Instructed on discharge instructions, follow up and referral plans. Demonstrated understanding of instructions, follow-up care, medications, Prescriptions given X 1. 00:09 Patient left the ED. jb4 Signatures: Dispatcher [employer] EDAZ Christine Solares, SENIOR CLINICAL DATA ANALYST-C SENIOR CLINICAL DATA ANALYST-CkNeel An PA PA jr8 Floyd Cardenas, RN RN jb4 Sanya Hudson cl3 Bill Hudson RN RN ll1
--- NOTE | 2020-08-25 22:58 | EDPHYS ---
Physician Documentation [facility] Name: Suraj Fuentes Age: 29 yrs Sex: Female : 1990 Arrival Date: 08/25/2020 Time: 19:42 Bed 19 Private MD: ED Physician Ye Corcoran HPI: 08/25 20:37 This 29 yrs old Female presents to ER via Wheelchair with complaints of kb Vaginal Bleeding. 20:37 The patient presents to the emergency department with abdominal pain, of the abdomen kb diffusely, that started 2 hour(s) ago, described as constant, nausea and vomiting. The estimated gestational age is 7 weeks. course: care: at a clinic, Leakage of Fluid: none appreciated, Ultrasound: the patient had an ultrasound, which was normal. Previous pregnancies: in previous pregnancies patient has had. Associated signs and symptoms: Pertinent positives: abdominal pain, nausea, vomiting, Pertinent negatives: chest pain, diarrhea, dysuria, fever, frequency, ruptured membranes, seizure, shortness of breath, vaginal bleeding, vaginal discharge. The patient has not experienced similar symptoms in the past. The patient has been recently seen at the [facility] Emergency Department, this week, for similar complaints labs were performed. 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 - Social history:: Smoking status: Patient denies any tobacco usage or history of. ROS: 20:29 Constitutional: Negative for fever, chills, and weight loss, Cardiovascular: Negative kb for chest pain, palpitations, and edema, Respiratory: Negative for shortness of breath, cough, wheezing, and pleuritic chest pain, Back: Negative for injury and pain, : Negative for injury, bleeding, discharge, and swelling, MS/Extremity: Negative for injury and deformity, Skin: Negative for injury, rash, and discoloration, Neuro: Negative for headache, weakness, numbness, tingling, and seizure. 20:29 Abdomen/GI: Positive for abdominal pain, nausea and vomiting, Negative for diarrhea. Exam: 20:29 Constitutional: This is a well developed, well nourished patient who is awake, alert, kb and in no acute distress. Head/Face: Normocephalic, atraumatic. Chest/axilla: Normal chest wall appearance and motion. Nontender with no deformity. No lesions are appreciated. Cardiovascular: Regular rate and rhythm with a normal S1 and S2. No gallops, murmurs, or rubs. Normal PMI, no JVD. No pulse deficits. Respiratory: Lungs have equal breath sounds bilaterally, clear to auscultation and percussion. No rales, rhonchi or wheezes noted. No increased work of breathing, no retractions or nasal flaring. Back: No spinal tenderness. No costovertebral tenderness. Full range of motion. Skin: Warm, dry with normal turgor. Normal color with no rashes, no lesions, and no evidence of cellulitis. MS/ Extremity: Pulses equal, no cyanosis. Neurovascular intact. Full, normal range of motion. Neuro: Awake and alert, GCS 15, oriented to person, place, time, and situation. Cranial nerves II-XII grossly intact. Motor strength 5/5 in all extremities. Sensory grossly intact. Cerebellar exam normal. Normal gait. 20:29 Abdomen/GI: Inspection: abdomen appears normal, Bowel sounds: normal, in all quadrants, Palpation: soft, in all quadrants, moderate abdominal tenderness, in all quadrants. Vital Signs: 20:07 BP 148 / 90; Pulse 89; Resp 18; Temp 98.4; Pulse Ox 99% ; Weight 81.65 kg; Height 5 ft. ll1 2 in. (157.48 cm); Pain 10/10; 21:15 BP 120 / 63; Pulse 85; Resp 16; Pulse Ox 98% on R/A; jb4 22:15 BP 151 / 81; Pulse 63; Resp 16; Pulse Ox 98% on R/A; jb4 23:30 BP 124 / 59; Pulse 93; Resp 16; Pulse Ox 99% on R/A; jb4 20:07 Body Mass Index 32.92 (81.65 kg, 157.48 cm) ll1 MDM: 20:22 Patient medically screened. kb 20:29 Data reviewed: vital signs, nurses notes. Data interpreted: Pulse oximetry: on room air hi is 99 %. Interpretation: normal. 20:42 Transition of care: After a detail discussion of the patient's case, care is kb transferred to Neel FRY. 22:55 Data reviewed: lab test result(s), radiologic studies, ultrasound. Counseling: I had a jr8 detailed discussion with the patient and/or guardian regarding: the historical points, exam findings, and any diagnostic results supporting the discharge/admit diagnosis, lab results, radiology results, the need for outpatient follow up, a family practitioner, to return to the emergency department if symptoms worsen or persist or if there are any questions or concerns that arise at home. Response to treatment: the patient's symptoms have markedly improved after treatment, patient is well hydrated. ED course: patient feeling better. Pain improved. Labs stable. US without acute findings. Will d/c home to f/u with OB. If worse to come back. Patient good with this . 08/25 20:16 Order name: Quantitative Hcg; Complete Time: 21:21 kb 08/25 20:16 Order name: Abo/rh Typing kb 08/25 20:16 Order name: US Transvaginal Ob kb 08/25 20:16 Order name: Basic Metabolic Panel; Complete Time: 21:21 kb 08/25 20:16 Order name: CBC with Diff; Complete Time: 20:47 kb 08/25 20:16 Order name: IV Saline Lock; Complete Time: 20:31 kb 08/25 20:16 Order name: Labs collected and sent; Complete Time: 20:31 kb 08/25 20:16 Order name: NPO; Complete Time: 20:32 kb Administered Medications: 20:48 Drug: Phenergan 12.5 mg Route: IVP; Site: right antecubital; jb4 21:45 Follow up: Response: No adverse reaction; Nausea unchanged jb4 20:51 Drug: NS 0.9% 1000 ml Route: IV; Rate: 1000 ml; Site: right antecubital; jb4 20:51 Drug: Demerol 25 mg Route: IVP; Site: right antecubital; jb4 21:20 Follow up: Response: No adverse reaction; Pain is decreased; RASS: Alert and Calm (0) jb4 22:06 Drug: Zofran (Ondansetron) 4 mg Route: IVP; Site: right antecubital; jb4 22:30 Follow up: Response: No adverse reaction; Nausea is decreased jb4 23:00 Drug: Zofran (Ondansetron) 4 mg Route: IVP; Infused Over: 2 mins; Site: right jb4 antecubital; 23:30 Follow up: Response: No adverse reaction; Nausea unchanged jb4 23:29 Drug: Reglan 10 mg Route: IVP; Site: right antecubital; jb4 08/26 00:09 Follow up: Response: No adverse reaction; Marked relief of symptoms jb4 08/25 23:30 Drug: Benadryl 25 mg Route: IVP; Site: right antecubital; jb4 08/26 00:09 Follow up: Response: No adverse reaction; Marked relief of symptoms jb4 Disposition: 06:02 Co-signature as Attending Physician, Ye Corcoran MD I agree with the assessment and tw4 plan of care. Disposition: 08/25/20 22:58 Discharged to Home. Impression: Nausea and vomiting, Generalized abdominal pain. - Condition is Stable. - Discharge Instructions: Abdominal Pain During , Nausea and Vomiting, Adult. - Prescriptions for Reglan 10 mg Oral Tablet - take 1 tablet by ORAL route every 6 hours As needed; 20 tablet. - Medication Reconciliation Form, Thank You Letter, Antibiotic Education, Prescription Opioid Use form. - Follow up: Private Physician; When: 2 - 3 days; Reason: Recheck today's complaints, Continuance of care, Re-evaluation by your physician. - Problem is new. - Symptoms have improved. Signatures: Dispatcher [employer] EDND Christine Solares, ELIZ-C [employer] WORKER-Neel Berry PA PA jr8 Dorita Cameron RN RN tl1 Floyd Cardenas RN RN jb4 Ye Corcoran MD MD tw4 Bill Hudson RN RN ll1 Corrections: (The following items were deleted from the chart) 00:09 08/25 22:58 08/25/2020 22:58 Discharged to Home. Impression: Nausea and vomiting; jb4 Generalized abdominal pain. Condition is Stable. Forms are Medication Reconciliation Form, Thank You Letter, Antibiotic Education, Prescription Opioid Use. Follow up: Private Physician; When: 2 - 3 days; Reason: Recheck today's complaints, Continuance of care, Re-evaluation by your physician. Problem is new. Symptoms have improved. jr8
[2020-08-25] MEDS ORDERED: NA CHLORIDE 0.9% 100 ML IV ONE (23:37)
[2020-08-25] MEDS ORDERED: METOCLOPRAMIDE 10 MG/2mL INJ ONE (23:37)
[2020-08-25] MEDS ORDERED: DIPHENHYDRAMINE 50 MG/ML VIAL ONE (23:37)
[2020-08-26 01:01] VITALS: TEMP 98.4
[2020-08-26 01:03] VITALS: O2SAT 98
[2020-08-26 01:04] VITALS: BP 151/81
--- NOTE | 2020-08-26 15:59 | RAD REPORT ---
EXAM DESCRIPTION: US - Transvaginal OB - 08/25/2020 10:23 pm CLINICAL HISTORY: ABD CRAMPING, COMPARISON: Transvaginal OB dated 06/23/2018 FINDINGS: A single gestational sac is seen within the uterus. The shape of the sac is within normal limits for gestational age. Within the sac is a single pole with crown-rump length of 14 mm, co rrelating to estimated gestational age of 7 weeks 5 days. Estimated date of delivery is 04/08/2021. Heart rate is 154 BPM. The placenta is not yet developed due to early gestational age. The maternal adnexa are within normal limits. Both ovaries obscured by bowel gas. IMPRESSION: Single live early intrauterine gestation with estimated gestational age of 7 weeks 5 day s, DYLAN 04/08/2021. Both ovaries were obscured by bowel gas.
--- OUTSIDE RECORDS SUMMARY | 2020-08-31 18:03 | XMS REPORT | Continuity of Care Document ---
:1990 Author Organization [facility] t Address [address] [place] [address] Care Team Providers Name Role Phone Tiffany FRANKLIN Attending Clinician Merna Mulligan MD Attending Clinician Lauren Thomas Attending Clinician Ultrasound Attending Clinician Unavailable Problems This patient has no known problems. Allergies, Adverse Reactions, Alerts This patient has no known allergies or adverse reactions. Medications This patient has no known medications. Procedures This patient has no known procedures. Encounters Start End Encounter Admission Attending Care Care Encounter Source Date/Time Date/Time Type Type Clinicians Facility Department ID 2020-08-28 2020-08-29 Emergency Esperanza Allen TRAUMA [id number] 20:57:00 03:37:00 Leann Mulligan SUNDANCE 350.1. 13.10 [id number] [id number] 2020-08-26 2020-08-26 Telephone AMBAR Fernandez [id number] 00:00:00 00:00:00 Cornelius Aguilar RAILWAY ENGINEER 350.1.13.10 REGIONAL [id number] MATERNAL [id number] & CHILD 107 [facility] 2020-08-24 2020-08-24 Picture Copyist Ultrasound, [facility] [id number] 13:29:59 13:59:59 Visit [facility] RAILWAY ENGINEER 350.1.13.10 REGIONAL [id number] MATERNAL [id number] & CHILD 369 [facility] 2020-08-24 2020-08-24 [facility] Fernandez [facility] [id number] 00:00:00 00:00:00 Roshunda R RAILWAY ENGINEER 350.1.13.10 REGIONAL [id number] MATERNAL [id number] & CHILD 107 [facility] 2020-08-17 2020-08-17 Telephone Jim [facility] [id number] 00:00:00 00:00:00 Roshunda R RAILWAY ENGINEER 350.1.13.10 REGIONAL [id number] MATERNAL [id number] & CHILD 107 [facility] 2020-08-04 2020-08-04 Telephone Jim [facility] [id number] 00:00:00 00:00:00 Roshunda R RAILWAY ENGINEER 350.1.13.10 REGIONAL [id number] MATERNAL [id number] & CHILD 107 [facility] 2020-08-03 2020-08-03 Telephone Jim [facility] [id number] 00:00:00 00:00:00 Roshunda R RAILWAY ENGINEER 350.1.13.10 REGIONAL [id number] MATERNAL [id number] & CHILD 107 [facility] Results This patient has no known results.
--- OUTSIDE RECORDS SUMMARY | 2020-08-31 18:06 | XMS REPORT | Summary of Care ---
:1990 Author Organization [facility] Address [address] [place] [address] Care Team Providers Name Role Phone Saravia Gamal Insurance Hmo Lauren Fernandez Primary Care Provider Reason for Visit Reason Comments ULTRASOUND (Routine) Status Reason Specialty Diagnoses / Referred By Referred To Procedures Contact Contact Closed Maternal Diagnoses Supervision of high risk in first trimester Cornelius Fernandez Medicine Procedures CONSULT MATERNAL MEDICINE ULTRASOUND Preferred Location: ELIZ Holland [address] [place] [address] Encounter Details Date Type Department Care Team Description 08/24/2020 [facility], Melissa mercado size-date discrepancy in first trimester; Ultrasound- Luiz FRANKLIN Supervision of with history of pre-term labor in first trimester; 1108 [facility] Previous delivery, ante[place] [phone] Allergies Active Allergy Reactions Severity Noted Date Comments Ibuprofen Hives 04/15/2014 [place] Hives 04/15/2014 Sodium Citrate (Bulk) Nausea and/or Vomiting 9 documented as of this encounter (statuses as of 08/24/2020) Medications Medication Sig Dispensed Refills Start Date End Date Status ondansetron HCl Take by mouth. 0 Active (ZOFRAN ORAL) vit Take 1 Packet by 30 Each 6 08/03/2020 Active 01-tprf-pzqob-dha mouth daily. (SELECT-OB + DHA) 29 mg iron-1 mg -250 mg combo packIndications: Supervision of high risk in first trimester proMETHazine 25 mg Take 1 tablet by 30 tablet 1 08/04/2020 Active tabletIndications: mouth every 4 Nausea (four) hours as needed for Nausea and Vomiting (N/V). 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 Encounter for IUD removal and reinsertion 01/18/2015 ASCUS on Pap smear 04/15/2014 Estimated Date of Delivery Comments Yes 03/15/2021 Based on last menstr ual period of 06/08/2020 (Approximate) documented as of this encounter (statuses as of 08/24/2020) Resolved Problems Problem Noted Date Resolved Date 37 weeks gestation of 12/18/2018 01/08/20 19 Chambers Hick's contraction 12/12/2018 01/08/2019 Abnormal maternal glucose [...] management 01/25/2015 05/20/2018 Overview: ICD10 Diagnosis Term 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 Machine 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 Utility Breast tenderness in female 01/25/2015 05/20/2018 Not immune to rubella 04/16/2014 06/04/2016 Overview: ICD10 Diagnosis Term 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 Milling Machine Operator Utility documented as of this encounter (statuses as of 08/24/2020) Immunizations Name Administration Dates Next Due HPV9 06/04/2016 MMR 12/20/2018 (Deferred: - not available f [facility]) TDAP 04/06/2015 TDAP (ADACEL) [...] Description 08/31/2020 Routine Visit OB Satellites Lauren Fernandez, MANAGER REIMBURSEMENT [address] [place], [place] [address] [phone] Health Maintenance Due Date Last Done Comments [...] filedocumented in this encounter Visit Diagnoses Diagnosis Uterine size-date discrepancy in first t rimester Uterine size date discrepancy, antepartu m condition or complication Supervision of with history of pre-term labor in first trimester with history of pre-term labor Previous delivery, antepartum c ondition or complication documented in this encounter Insurance Payer Benefit Plan / Subscriber ID Effective Phone Address T ype Group Dates ASIA BETANCOURT [id number] 2018-Anupama [address] BOX Medic [place] [id number] MANA[place] MED[place] documented as of this encounter Advance Directives Type Date Recorded 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
--- OUTSIDE RECORDS SUMMARY | 2020-08-31 18:07 | XMS REPORT | Summary of Care ---
:1990 Author Organization [facility] Address [address] [place] [address] Care Team Providers Name Role Phone Saravia Gamal Insurance Hmo Lauren Fernandez Primary Care Provider Encounter Details Date Type Department Care Team Description 08/24/2020 Abstract [facility]- A Cornelius Allen, C APPLICATION DEVELOPER 1108 [facility] [address] [place] [address] [place] [address] [phone] Allergies Active Allergy Reactions Severity Noted Date Comments Ibuprofen Hives 04/15/2014 [place] Hives 04/15/2014 Sodium Citrate (Bulk) Nausea and/or Vomiting 9 documented as of this encounter (statuses as of 08/24/2020) Medications Medication Sig Dispensed Refills Start Date End Date Status ondansetron HCl Take by mouth. 0 Active (ZOFRAN ORAL) vit Take 1 Packet by 30 Each 6 08/03/2020 Active 76-azuw-txche-dha mouth daily. 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 Breast tenderness in female 01/25/2015 05/20/2018 Not immune to rubella 04/16/2014 06/04/2016 Overview: ICD10 Diagnosis 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 Utility documented as of this encounter (statuses as of 08/24/2020) Immunizations Name Administration Dates Next Due HPV9 06/04/2016 MMR 12/20/2018 (Deferred: - not available f [facility]) TDAP 04/06/2015 TDAP (ADACEL) VACCINE 12/11/2018 Td 11/25/2004 Varicella (varivax)(chicken pox) 12/20/2018 documented as of this encounter Social History Tobacco Use Types Packs/Day Years Used Date Never Smoker Smokeless Tobacco: Never Used Alcohol Use Drinks/Week oz/Week Comments Yes 0 Standard drinks or equivalent 0.0 socially Estimated Date of Delivery Comments Yes 04/11/2021 Based on Ultrasound, FHT: 127, Transverse Presentation, Placen ta Too early to evaulate Sex Assigned at Date Recorded Not on [...] 08/31/2020 Routine Visit OB Satellites Lauren Fernandez, C APPLICATION DEVELOPER [address] [place] [address] [phone] Health Maintenance Due Date Last Done Comments [...] Address T e Group Dates ASIA BETANCOURT [id number] 2018-Anupama P O BOX Medic [place] [id number] MANA[place]ED MEDICA[place] documented as of this encounter Advance Directives Type Date Recorded 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
== END 2020-08-26 00:09 | disposition home or self-care (01) ==
LOC: ER 19:42
DX: O21.9 Vomiting of pregnancy, unspecified (principal); Z3A.01 Less than 8 weeks gestation of pregnancy; Z88.6 Allergy status to analgesic agent; Z91.018 Allergy to other foods
CPT/HCPCS: 85025; 80048; 36415; 86900; 86901; 84702; 76817; 96375; 96374; 99284; J2765; J2550; J1200; J2175; J7030; J2405 ×2

== ENCOUNTER 2020-08-30 13:33 | Emergency (ER) | payer MEDICAID ==
[2020-08-30] MEDS ORDERED: NA CHLORIDE 0.9% 1,000 ML ONE ×2 (15:20→17:22)
[2020-08-30] MEDS ORDERED: FAMOTIDINE 20 MG/2 ML VIAL IV ONE (15:20)
[2020-08-30] MEDS ORDERED: PROMETHAZINE INJ 25 MG/ML AMP ONE ×2 (15:20→16:59)
[2020-08-30] MEDS ORDERED: DIPHENHYDRAMINE 50 MG/ML VIAL ONE (15:20)
[2020-08-30] MEDS ORDERED: ONDANSETRON 4 MG/2 ML VIAL ONE (15:20)
[2020-08-30 15:31] LABS: Absolute Lymphocytes (CBC) 1.5 K/uL (0.7-4.9); Basophils % 0.3 % (0-1.3); Lymphocytes % 18.2 % (15.3-44.8); MPV 8.2 fL (7.6-11.3)
[2020-08-30 15:53] LABS: ALT/SGPT 25 U/L (12-78); AST/SGOT 15 U/L (15-37); Albumin 3.9 g/dL (3.4-5.0); Alkaline Phosphatase 64 U/L (45-117); BUN Blood Urea Nitrogen 3 mg/dL (7-18); Bicarbonate 25 mmol/L (21-32); Bilirubin Direct 0.1 mg/dL (0-0.2); Bilirubin Total 0.6 mg/dL (0.2-1.0); Glucose Level 94 mg/dL (74-106); Lipase 59 U/L (73-393); Potassium 3.2 mmol/L (3.5-5.1); Protein, Total 7.6 g/dL (6.4-8.2); Sodium Level 138 mmol/L (136-145)
[2020-08-30 16:14] LABS: Urine Blood NEGATIVE (NEG); Urine Glucose NEGATIVE (NEG); Urine Protein NEGATIVE (NEG); Urine Specific Gravity 1.025 (1.005-1.030); Urine pH >8.5 (5.0-7.0)
[2020-08-30 16:28] LABS: Urine Amorphous Sediment 1+ /HPF (NONE SEEN); Urine Bacteria 20-50 /HPF (<20); Urine Culture Reflex Order REFLEXED; Urine RBC <5 /HPF (NONE SEEN)
[2020-08-30] MEDS ORDERED: METOCLOPRAMIDE 10 MG/2mL INJ ONE (16:46)
[2020-08-30] MEDS ORDERED: DICYCLOMINE HCL 10 MG CAP ONE (17:19)
[2020-08-30] MEDS ORDERED: POTASSIUM 25 MEQ EFFERV TAB ONE (17:19)
--- NOTE | 2020-08-30 18:49 | EDPHYS ---
Physician Documentation [facility] Name: Suraj Fuentes Age: 29 yrs Sex: Female : 1990 Arrival Date: 08/30/2020 Time: 13:35 Bed 5 Private MD: ED Physician Zane Herring HPI: 08/30 15:10 This 29 yrs old Female presents to ER via Wheelchair with complaints of cp Abdominal Pain, Nausea/Vomiting, 7 Weeks Preg. 15:10 The patient presents with abdominal pain that is diffuse. Associated signs and cp symptoms: Pertinent positives: nausea and vomiting, Pertinent negatives: chest pain, constipation, fever, vaginal discharge, vomiting blood, vaginal bleeding. Historical: - Allergies: 13:45 Ibuprofen; ll1 13:45 ORANGES; ll1 - PMHx: 13:45 hyperemesis gravidum; ll1 - PSHx: 13:45 Appendectomy; ; ll1 - Immunization history:: Flu vaccine is not up to date. - Social history:: Smoking status: Patient denies any tobacco usage or history of. ROS: 15:15 Constitutional: Negative for fever. cp 15:15 Eyes: Negative for injury, pain, redness, and discharge. cp 15:15 Cardiovascular: Negative for chest pain, edema, palpitations. 15:15 Respiratory: Negative for cough, shortness of breath, wheezing. 15:15 Abdomen/GI: Positive for abdominal pain, nausea and vomiting, Negative for diarrhea, constipation, hematemesis. 15:15 Back: Negative for radiated pain. 15:15 : Negative for urinary symptoms, vaginal bleeding, vaginal discharge. 15:15 Neuro: Negative for altered mental status, headache, weakness. 15:15 All other systems are negative. Exam: 15:20 Constitutional: The patient appears in no acute distress, alert, awake, non-toxic, well cp developed, well nourished, uncomfortable. 15:20 Head/Face: Normocephalic, atraumatic. cp 15:20 Eyes: Periorbital structures: appear normal, Conjunctiva: normal, no exudate, no injection, Sclera: no appreciated abnormality, Lids and lashes: appear normal, bilaterally. 15:20 ENT: External ear(s): are unremarkable, Nose: is normal, Posterior pharynx: Airway: no evidence of obstruction, patent. 15:20 Chest/axilla: Inspection: normal. 15:20 Cardiovascular: Rate: normal, Rhythm: regular. 15:20 Respiratory: the patient does not display signs of respiratory distress, Respirations: normal, no use of accessory muscles, no retractions, labored breathing, is not present, Breath sounds: are clear throughout, no decreased breath sounds. 15:20 Abdomen/GI: Inspection: abdomen appears normal, Palpation: soft, in all quadrants, moderate abdominal tenderness, in all quadrants, rebound tenderness, is not appreciated, voluntary guarding, is elicited in all quadrants. 15:20 Back: pain, that is mild, of the low back area, ROM is normal. Vital Signs: 13:43 BP 117 / 76; Pulse 86; Resp 18; Temp 97.9; Pulse Ox 96% ; Weight 81.65 kg; Height 5 ft. ll1 4 in. (162.56 cm); Pain 8/10; 15:30 BP 127 / 68; Pulse 76; Resp 18; Pulse Ox 100% on R/A; em 17:04 BP 134 / 71; Pulse 68; Resp 18; Pulse Ox 98% on R/A; em 19:30 BP 128 / 80; Pulse 71; Resp 16; Pulse Ox 100% on R/A; jb4 13:43 Body Mass Index 30.90 (81.65 kg, 162.56 cm) ll1 MDM: 14:59 Patient medically screened. cp 15:35 Differential diagnosis: appendicitis, cholecystitis, Cholelithiasis, gastritis, cp pancreatitis, Ureterolithiasis, urinary tract infection, dehydration. 18:45 Data reviewed: vital signs, nurses notes, lab test result(s). cp 18:50 Physician consultation: regarding regarding transfer, to [facility]. DR Smith will be cp accepting physician. 18:50 Response to treatment: the patient's symptoms have mildly improved after treatment. cp 08/30 15:02 Order name: Basic Metabolic Panel; Complete Time: 16:03 cp 08/30 16:03 Interpretation: Normal except: K 3.2; BUN 3. cp 08/30 15:02 Order name: CBC with Diff; Complete Time: 16:03 cp 08/30 16:03 Interpretation: Normal except: ANGELITO% 74.8. cp 08/30 15:02 Order name: Hepatic Function; Complete Time: 16:03 cp 08/30 18:31 Interpretation: Normal except: GLOB 3.7. cp 08/30 15:02 Order name: Lipase; Complete Time: 16:03 cp 08/30 15:02 Order name: Urine Microscopic Only; Complete Time: 16:31 cp 08/30 16:32 Interpretation: Normal except: UBACT 20-50; SQEPI 5-10. cp 08/30 15:45 Order name: Urine Dipstick--Ancillary (enter results); Complete Time: 16:31 bd 08/30 15:45 Order name: Urine --Ancillary (enter results); Complete Time: 16:31 bd 08/30 16:29 Order name: Urine Culture EDMS 08/30 18:30 Order name: COVID-19 bd 08/30 15:02 Order name: IV Saline Lock; Complete Time: 15:29 cp 08/30 15:02 Order name: Labs collected and sent; Complete Time: 15:29 cp 08/30 15:02 Order name: Urine Dipstick-Ancillary (obtain specimen); Complete Time: 15:29 cp 08/30 15:02 Order name: Urine Test (obtain specimen); Complete Time: 15:29 cp 08/30 16:58 Order name: PO challenge; Complete Time: 17:12 cp Administered Medications: 15:20 Drug: Zofran (Ondansetron) 4 mg Route: IVP; Site: right antecubital; em 15:20 Drug: NS 0.9% 1000 ml Route: IV; Rate: 1 bolus; Site: right antecubital; em 15:22 Drug: Benadryl 12.5 mg Route: IVP; Site: right antecubital; em 15:24 Drug: Pepcid 20 mg Route: IVP; Site: right antecubital; em 15:26 Drug: Phenergan 12.5 mg {Note: given in the NS bolus.} Route: IVP; Site: right em antecubital; 17:12 Follow up: Response: No adverse reaction; No change in condition em 16:48 Drug: Phenergan 12.5 mg Route: IVP; Site: right antecubital; em 17:30 Follow up: Response: No adverse reaction em 16:50 Not Given (Patient Refused): Reglan 10 mg IVP once; over 1 to 2 minutes iw 17:10 Drug: NS 0.9% 1000 ml Route: IV; Rate: 1 bolus; Site: right antecubital; em 20:36 Follow up: Response: No adverse reaction; IV Status: Infusion continued upon transfer jb4 17:21 Not Given (not tolerating PO): Potassium Effervescent Tablet 50 mEq PO once; dissolve em in 4 ounces of water or juice 17:21 Not Given (not tolerating PO): Bentyl 20 mg PO once em 19:37 Drug: Potassium Chloride 20 mEq Route: IV; Rate: calculated rate; Site: right jb4 antecubital; 20:36 Follow up: Response: No adverse reaction; IV Status: Infusion continued upon transfer jb4 Disposition: 08/31 06:59 Co-signature as Attending Physician, Zane Herring MD. rn Disposition: 08/30/20 18:48 Transfer ordered to [facility]. Diagnosis is Hyperemesis gravidarum with metabolic disturbance. - Reason for transfer: Higher level of care. - Accepting physician is Doctor. - Condition is Stable. - Problem is an ongoing problem. - Symptoms have improved. Signatures: Dispatcher [employer] Nathan Aj RN RN em Williams, Irene, RN RN iw Nieto, Roman, MD MD rn Page, Corey, PA PA cp Floyd Cardenas RN RN jb4 Bill Hudson RN RN ll1 Corrections: (The following items were deleted from the chart) 08/30 20:36 18:48 08/30/2020 18:48 Transfer ordered to [facility]. Diagnosis is Hyperemesis jb4 gravidarum with metabolic disturbance. Reason for transfer: Higher level of care. Accepting physician is Doctor. Condition is Stable. Problem is an ongoing problem. Symptoms have improved. cp
--- NOTE | 2020-08-30 18:49 | ER ---
Nurse's Notes [facility] Name: Suraj Fuentes Age: 29 yrs Sex: Female : 1990 Arrival Date: 08/30/2020 Time: 13:35 Bed 5 Private MD: Diagnosis: Hyperemesis gravidarum with metabolic disturbance Presentation: 08/30 13:43 Chief complaint: Patient states: N/V with abdominal pain continues daily since last ll1 visit here. Coronavirus screen: Client denies travel out of the [place] in the last 14 days. nausea, vomiting. Client presents with at least one sign or symptom that may indicate coronavirus-19. Standard/surgical mask placed on the client. Ebola Screen: Patient denies travel to an Ebola-affected area in the 21 days before illness onset. Initial Sepsis Screen: Does the patient meet any 2 criteria? No. Patient's initial sepsis screen is negative. Does the patient have a suspected source of infection? Yes: Acute abdominal pain. Risk Assessment: Do you want to hurt yourself or someone else? Patient reports no desire to harm self or others. Onset of symptoms was July 26, 2020. 13:43 Method Of Arrival: Wheelchair ll1 13:43 Acuity: SHAW 3 ll1 Historical: - Allergies: 13:45 Ibuprofen; ll1 13:45 ORANGES; ll1 - PMHx: 13:45 hyperemesis gravidum; ll1 - PSHx: 13:45 Appendectomy; ; ll1 - Immunization history:: Flu vaccine is not up to date. - Social history:: Smoking status: Patient denies any tobacco usage or history of. Screenin:10 Abuse screen: Denies threats or abuse. Nutritional screening: No deficits noted. em Tuberculosis screening: No symptoms or risk factors identified. Fall Risk None identified. Assessment: 16:22 General: Appears in no apparent distress. uncomfortable, Behavior is calm, cooperative, em appropriate for age, Denies fever. Pain: Complains of pain in abdomen Pain currently is 8 out of 10 on a pain scale. Pain began this morning at 10 AM. Neuro: Level of Consciousness is awake, alert, obeys commands, Oriented to person, place, time, situation, Appropriate for age. Cardiovascular: Capillary refill < 3 seconds Patient's skin is warm and dry. Respiratory: Airway is patent Respiratory effort is even, unlabored, Respiratory pattern is regular, symmetrical. GI: Abdomen is round non-distended, Bowel sounds present X 4 quads. Abd is soft X 4 quads Abdomen is tender to palpation X 4 quads. Reports nausea, vomiting, Patient currently denies diarrhea. Derm: Skin is intact, is healthy with good turgor, Skin is pink, warm \T\ dry. Musculoskeletal: Capillary refill < 3 seconds, Range of motion: intact in all extremities. 17:08 Reassessment: could not tolerate fluids, pt throwing up, provider notified. em 18:06 Reassessment: Patient appears in no apparent distress at this time. Patient and/or em family updated on plan of care and expected duration. Pain level reassessed. symptoms have improved, no N/V noted. 18:41 Reassessment: pt currently refusing covid swab because it hurts, provider notified, em transfer center request pt to be swabbed. 19:15 Reassessment: Patient appears in no apparent distress at this time. Patient and/or jb4 family updated on plan of care and expected duration. Pain level reassessed. Patient is alert, oriented x 3, equal unlabored respirations, skin warm/dry/pink. 19:59 Reassessment: Patient appears in no apparent distress at this time. Patient and/or jb4 family updated on plan of care and expected duration. Pain level reassessed. Patient is alert, oriented x 3, equal unlabored respirations, skin warm/dry/pink. Report called to ALFONZO Esposito at [facility]. 20:34 Reassessment: Patient appears in no apparent distress at this time. Patient and/or jb4 family updated on plan of care and expected duration. Pain level reassessed. Patient is alert, oriented x 3, equal unlabored respirations, skin warm/dry/pink. Vital Signs: 13:43 BP 117 / 76; Pulse 86; Resp 18; Temp 97.9; Pulse Ox 96% ; Weight 81.65 kg; Height 5 ft. ll1 4 in. (162.56 cm); Pain 8/10; 15:30 BP 127 / 68; Pulse 76; Resp 18; Pulse Ox 100% on R/A; em 17:04 BP 134 / 71; Pulse 68; Resp 18; Pulse Ox 98% on R/A; em 19:30 BP 128 / 80; Pulse 71; Resp 16; Pulse Ox 100% on R/A; jb4 13:43 Body Mass Index 30.90 (81.65 kg, 162.56 cm) ll1 ED Course: 13:35 Patient arrived in ED. ag5 13:44 Triage completed. ll1 13:45 Arm band placed on. ll1 14:59 Pancho Pryor PA is PHCP. cp 14:59 Zane Herring MD is Attending Physician. cp 15:02 Nathan Rosario, RN is Primary Nurse. em 15:10 Patient has correct armband on for positive identification. Placed in gown. Bed in low em position. Pulse ox on. NIBP on. 15:20 Initial lab(s) drawn, by me, sent to lab. Inserted saline lock: 20 gauge in right em antecubital area, using aseptic technique. Blood collected. 19:23 Primary Nurse role handed off by Nathan Rosario, ALFONZO jb4 19:23 Floyd Cardenas, ALFONZO is Primary Nurse. jb4 20:34 No provider procedures requiring assistance completed. Patient transferred, IV remains jb4 in place. Administered Medications: 15:20 Drug: Zofran (Ondansetron) 4 mg Route: IVP; Site: right antecubital; em 15:20 Drug: NS 0.9% 1000 ml Route: IV; Rate: 1 bolus; Site: right antecubital; em 15:22 Drug: Benadryl 12.5 mg Route: IVP; Site: right antecubital; em 15:24 Drug: Pepcid 20 mg Route: IVP; Site: right antecubital; em 15:26 Drug: Phenergan 12.5 mg {Note: given in the NS bolus.} Route: IVP; Site: right em antecubital; 17:12 Follow up: Response: No adverse reaction; No change in condition em 16:48 Drug: Phenergan 12.5 mg Route: IVP; Site: right antecubital; em 17:30 Follow up: Response: No adverse reaction em 16:50 Not Given (Patient Refused): Reglan 10 mg IVP once; over 1 to 2 minutes iw 17:10 Drug: NS 0.9% 1000 ml Route: IV; Rate: 1 bolus; Site: right antecubital; em 20:36 Follow up: Response: No adverse reaction; IV Status: Infusion continued upon transfer [facility] 17:21 Not Given (not tolerating PO): Potassium Effervescent Tablet 50 mEq PO once; dissolve em in 4 ounces of water or juice 17:21 Not Given (not tolerating PO): Bentyl 20 mg PO once em 19:37 Drug: Potassium Chloride 20 mEq Route: IV; Rate: calculated rate; Site: right jb4 antecubital; 20:36 Follow up: Response: No adverse reaction; IV Status: Infusion continued upon transfer jb Outcome: 18:48 ER care complete, transfer ordered by MD. johansen 20:34 Transferred by ground EMS by private ambulance [facility]. to [place] [id number] [address]. 20:34 Condition: stable 20:34 Discharge instructions given to patient, family, Instructed on the need for transfer, Demonstrated understanding of instructions. 20:36 Patient left the ED. [facility] Signatures: Nathan Rosario RN RN em Pancho Pryor PA PA cp Bryson, James, RN RN 4 Cailin Rankin 5 Bill Hudson RN RN ll1 Yuki Cornejo RN
[2020-08-30] MEDS ORDERED: KCL 20 MEQ/100 mL IVPB 20 MEQ/100 ML BAG IV ONE (19:27)
[2020-08-30 21:17] VITALS: TEMP 97.9
[2020-08-30 21:21] VITALS: BP 128/80; O2SAT 100
--- OUTSIDE RECORDS SUMMARY | 2020-09-01 15:01 | XMS REPORT | Continuity of Care Document ---
:1990 Author Organization [facility] t Address [address] [place] [address] Care Team Providers Name Role Phone Tyler Isaacs MD Attending Clinician Tiffany FRANKLIN Attending Clinician Merna Mulligan MD Attending Clinician Lauren Thomas Attending Clinician Ultrasound Attending Clinician Unavailable Tyler Isaacs MD Admitting Clinician Problems This patient has no known problems. Allergies, Adverse Reactions, Alerts This patient has no known allergies or adverse reactions. Medications This patient has no known medications. Procedures This patient has no known procedures. Encounters Start End Encounter Admission Attending Care Care Encounter Source Date/Time Date/Time Type Type Clinicians Facility Department ID 2020-08-30 2020-09-01 [facility] JAYCE Isaacs [id number] 21:50:00 13:00:[address] Tyler HINSON 350.1.13.10 [facility] 4.2.7.2.686 [id number] 2020-08-28 2020-08-29 Emergency Esperanza Allen TRAUMA [id number] 20:57:00 03:37:00 Leann guerra SHERIDAN 350.1. 13.10 4.2.7.2.686 [id number] 2020-08-26 2020-08-26 [place] [facility] [id number] 00:00:00 00:00:00 Roshunda R THERMOFORMING MACHINE OPERATOR 350.1.13.10 REGIONAL 4.2.7.2.686 MATERNAL [id number] & CHILD 107 [facility] 2020-08-24 2020-08-24 Technology Intern Ultrasound, [facility] [id number] 13:29:59 13:59:59 Visit [facility] THERMOFORMING MACHINE OPERATOR 350.1.13.10 REGIONAL 4.2.7.2.686 MATERNAL [id number] & CHILD 369 [facility] 2020-08-24 2020-08-24 [facility] [id number] 00:00:00 00:00:00 Roshunda R THERMOFORMING MACHINE OPERATOR 350.1.13.10 REGIONAL 4.2.7.2.686 MATERNAL [id number] & CHILD 107 [facility] 2020-08-17 2020-08-17 [facility] [id number] 00:00:00 00:00:00 Roshunda R THERMOFORMING MACHINE OPERATOR 350.1.13.10 REGIONAL 4.2.7.2.686 MATERNAL [id number] & CHILD 107 [facility] 2020-08-04 2020-08-04 [facility] [id number] 00:00:00 00:00:00 Roshunda R THERMOFORMING MACHINE OPERATOR 350.1.13.10 REGIONAL 4.2.7.2.686 MATERNAL [id number] & CHILD 107 [facility] 2020-08-03 2020-08-03 [facility] [id number] 00:00:00 00:00:00 Roshunda R THERMOFORMING MACHINE OPERATOR 350.1.13.10 REGIONAL [id number] MATERNAL [id number] & CHILD [address] [place] [address] Results This patient has no known results.
--- OUTSIDE RECORDS SUMMARY | 2020-09-01 15:04 | XMS REPORT | Summary of Care ---
:1990 Author Organization [facility] Address [address] [place] [address] Care Team Providers Name Role Phone Manjit E Insurance Hmo Lauren Fernandez [facility] Primary Care Provider Reason for Visit Reason Comments Assessment wanting to terminate pregnan cy Encounter Details Date Type Department Care Team Description 08/26/2020 Telephone [facility]- Cornelius Fernandez, As sessment (wanting to [facility] terminate ) 1108 [facility] [address] [place] [address] [place], [place] [phone] [address] [phone] Allergies Active Allergy Reactions Severity Noted Date Comments Ibuprofen Hives 04/15/2014 [place] Hives 04/15/2014 Sodium Citrate (Bulk) Nausea and/or Vomiting 9 documented as of this encounter (statuses as of 08/26/2020) Medications Medication Sig Dispensed Refills Start Date End Date Status ondansetron HCl Take by mouth. 0 Active (ZOFRAN ORAL) vit Take 1 Packet by 30 Each 6 08/03/2020 Active 36-bcvp-mryqr-dha mouth daily. (SELECT-OB + DHA) 29 mg iron-1 mg -250 mg combo packIndications: Supervision of high risk in first trimester proMETHazine 25 mg Take 1 tablet by 30 tablet 1 08/04/2020 Active tabletIndications: mouth every 4 Nausea (four) hours as needed for Nausea and Vomiting (N/V). documented as of this encounter (statuses as of 08/26/2020) Active Problems Problem Noted Date Desires (vaginal [...] Obesity in 01/25/2015 Overview: ICD10 Diagnosis Term Product Development Utility Encounter for IUD removal and reinsertion 01/18/2015 ASCUS on Pap smear 04/15/2014 Estimated Date of Delivery Comments Yes 04/11/2021 Based on Ultrasound, FHT: 127, Transverse Presentation, Placen ta Too early to evaulate documented as of this encounter (statuses as of 08/26/2020) Resolved Problems Problem Noted Date Resolved Date [...] management 01/25/2015 05/20/2018 Overview: ICD10 Diagnosis Term Product Development Utility Breast tenderness in female 01/25/2015 05/20/2018 Not immune to rubella 04/16/2014 06/04/2016 Overview: ICD10 Diagnosis Term Product Development Utility documented as of this encounter (statuses as of 08/26/2020) Immunizations Name Administration Dates Next Due HPV9 06/04/2016 MMR 12/20/2018 (Deferred: - not available f [facility] pharmacy) TDAP 04/06/2015 TDAP (ADACEL) [...] Telephone Encounter - Alfreda Vaughn LVN - 08/26/2020 11:22 AM ALMATSuraj Mabry Gina is a 29 year old female Patient stated she wanted to terminate because her body can not take anymore. Informed patient termination was not offered here and would have to find a place that offers termination on her own, verbalized understanding. elephone Encounter - Nisa Ariella - 08/26/2020 9:44 AM Annalee Luly Fuentes is a 29 year old female is calling to speak with the nurse. Patient calling stating that she doesn't think she can handle this and asking about terminating. Please return call. Thank you. documented in this encounter Plan of Treatment Date Type Specialty Care Team Description 08/31/2020 Routine Visit OB Satellites Lauren Fernandez, LUTE PACKER OR APPLIER [address] [address] [phone] Health Maintenance Due Date Last Done Comments [...] Address T ype Group Dates ASIA BETANCOURT [id number] 2018-Anupama P O BOX Medic aid [place] [id number] MA[place] MEDICA[place] documented as of this encounter Advance Directives Type Date Recorded Patient Floor Scrubber Explanati on Advance Directives and Living Will Power of Yard Supervisor Name Relationship Healthcare Agent Relationship Co mmunication Floyd Brown Father Health Care Agent Preet Coffey Other Health Care Agent [place] Fuentes Spouse First [facility] [phone] Agent (Mobile)
--- OUTSIDE RECORDS SUMMARY | 2020-09-01 15:05 | XMS REPORT | Summary of Care ---
:1990 Author Organization [facility] - Health Address [address] [place] [address] Care Team Providers Name Role Phone Gamal Saravia Insurance Hmo Lauren Fernandez Primary Care Provider Reason for Referral (Routine) Status Reason Specialty Diagnoses / Referred By Referred To Procedures Contact Contact New Request OG-OBSTETRICS & Diagnoses Nausea and vomiting during Aufderheide, Leann GYNECOLOGY Procedures Discharge Follow-Up: Specialty Service OG-OBSTETRICS & GYNECOLOGY; 3-5 Days MD Merna [address] [place] [address]. [place] [address] Reason for Visit Reason Comments Abdominal Pain Vomiting Auth/Cert Status Reason Specialty Diagnoses / Referred By Referred To Procedures Contact Contact Emergency Medicine Ed-Raquel rgency Dept [address] [place] [phone] Fax: Encounter Details Date Type Department Care Team Description 08/28/2020 - Emergency [facility] Monika Allen MD [address] [place] [phone] Abdominal pain during in first trimester (Primary Dx); 08/29/2020 Department Anthonyerjessi, Leann Bauman MD [address] [place] [phone] Nausea and vomiting during [address] [place] [phone] Allergies Active Allergy Reactions Severity Noted Date Comments Ibuprofen Hives 04/15/2014 Dickson Hives 04/15/2014 Sodium Citrate (Bulk) Nausea and/or Vomiting 9 documented as of this encounter (statuses as of 08/29/2020) Medications Medication Sig Dispensed Refills Start Date End Date Status ondansetron HCl Take by mouth. 0 Active (ZOFRAN ORAL) vit Take 1 Packet by 30 Each 6 08/03/2020 Active 40-tbkl-wiufk-dha mouth daily. (SELECT-OB + DHA) 29 mg iron-1 mg -250 mg combo packIndications: Supervision of high risk in first trimester proMETHazine 25 mg Take 1 tablet by 30 tablet 1 08/04/2020 Active tabletIndications: mouth every 4 Nausea (four) hours as needed for Nausea and Vomiting (N/V). pyridoxine, VITAMIN Take 1 tablet by 20 tablet 0 08/29/2020 Active B-6, (VITAMIN B-6) 25 mouth every 8 mg tabletIndications: (eight) hours as Nausea and vomiting needed for Nausea during and Vomiting (N/V). documented as of this encounter (statuses as of 08/29/2020) Active Problems Problem Noted Date Desires (vaginal [...] Obesity in 01/25/2015 Overview: ICD10 Diagnosis Term Sap Security Consultant Utility Encounter for IUD removal and reinsertion 01/18/2015 ASCUS on Pap smear 04/15/2014 Estimated Date of Delivery Comments Yes 04/11/2021 Based on Ultrasound, FHT: 127, Transverse Presentation, Placen ta Too early to evaulate documented as of this encounter (statuses as of 08/29/2020) Resolved Problems Problem Noted Date Resolved Date [...] management 01/25/2015 05/20/2018 Overview: ICD10 Diagnosis Term Sap Security Consultant Utility Breast tenderness in female 01/25/2015 05/20/2018 Not immune to rubella 04/16/2014 06/04/2016 Overview: ICD10 Diagnosis Term Sap Security Consultant Utility documented as of this encounter (statuses as of 08/29/2020) Immunizations Name Administration Dates Next Due HPV9 [...] been in contact with No / Unsure 08/28/2020 8:56 PM CDT someone who was confirmed or suspected to have Coronavirus / COVID-19? documented as of this encounter Last Filed Vital Signs Vital Sign Reading Time Taken Comments Blood Pressure 112/67 08/29/2020 3:00 AM CDT Pulse 85 08/29/2020 3:00 AM CDT Temperature 37.2 C (99 F) 08/29/2020 12:52 AM CDT Respiratory Rate 18 08/29/2020 3:00 AM CDT Oxygen Saturation 94% 08/29/2020 3:00 AM CDT Inhaled Oxygen Concentration - - Weight 85.4 kg (188 lb 4.4 oz) 08/28/2020 10:00 PM CDT Height - - Body Mass Index 32.32 08/03/2020 1:08 PM CDT documented in this encounter Discharge Instructions InstructionsLeann Mulligan MD - 08/29/2020RECOMMEND FOLLOW-UP WITH A PRIMARY CARE PROVIDER OR SPECIALIST IN 3-5 DAYS IF YOU WISH TO FOLLOW-UP WITHIN THE [facility], MAY TRY THESE OPTIONS (CLINIC APPOINTMENTS AVAILABLE ON [id number]-OT-[id number] BASIS): 1. SCHEDULE AN APPOINTMENT ONLINE AT WWW.[facility] 2. OR CALL THE [facility] ACCESS CENTER AT OR 3. OR CALL YOUR [facility] PHYSICIAN'S OFFICE DIRECTLY IF YOU ARE ALREADY AN ESTABLISHED [facility] PATIENT. RETURN TO ER FOR WORSENING OF SYMPTOMS. AttachmentsThe following attachments cannot be sent through Care Everywhere. : Your First Trimester Changes (Turkmen)Severe Morning Sickness (Hyperemesis Gravidarum) (Turkmen)documented in this encounter ED Notes Arsalan Salazar RN - 08/28/2020 8:56 PM ALMATSuraj Luly Fuentes is a 29 year old female presents to triage by wc accompanied by spouse for c/o abdominal pain and vomiting. Patient actively vomiting in triage. Patient reports 7 weeks , . Denies vaginal bleeding. documented in this encounter Miscellaneous Notes ED Nurse Note - Ada Bush RN - 08/29/2020 3:36 AM CDTPatient given printed and verbal discharge instructions regarding severe morning sickness, encouraged hydration and proper nutrition Prescriptions provided: B6 Discussed indications, medication side effects, and therapeutic response to medications. Advised to take until completed unless adverse reaction occurs - if occurs, discontinue medication and follow upwith PCP/seek medical attention. Patient verbalized understanding of instructions. Patient awake alert oriented, respirations even and unlabored, no acute distress noted, skin warm & dry, color appropriate for race, moves all extremities well. Patient encouraged to follow up with PCP and to keep all appropriate appointments as scheduled or toreturn to ED for new/prolonged/worsening of symptoms No adverse reaction to medications given in ER noted upon discharge PIV d'cd without complications, dressing to site, catheter intact. Patient ambulatory to the [facility] accompanied by visitors x2, in possession of all belongings. D Nurse Note - Ada Bush RN - 08/29/2020 2:05 AM CDTProvide patient with water and crackers for PO challenge D Nurse Note - Ada Bush RN - 08/29/2020 1:43 AM CDTMD at bedside D Nurse Note - Ada Bush RN - 08/29/2020 1:40 AM CDTMD notified of patient request for pain medication. D Nurse Note - Ada Bush RN - 08/29/2020 1:23 AM CDTPatient laying in bed RR even and unlabored and remains accompanied by 2 visitors. D Nurse Note - Ada Bush RN - 08/29/2020 1:02 AM CDTInformed MD regarding patients request for pain medication D Nurse Note - Luly Tyler RN - 08/28/2020 11:47 PM CDTPatient transferred to [facility] D Nurse Note - Ada Bush RN - 08/28/2020 11:46 PM CDTReceived report from Thang MEJÍA D Nurse Note - Luly Tyler RN - 08/28/2020 11:35 PM CDTPatient ambulatory to restroom with specimen cup D Nurse Note - Luly Tyler RN - 08/28/2020 10:33 PM CDTPatient given blankets per her request D Nurse Note - Luly Tyler RN - 08/28/2020 9:59 PM CDTDr. Allen at bedside D Nurse Note - Cleve Ponce RN - 08/28/2020 9:41 PM CDTPatient arrives with C/O ABD pain since 1200 with constant nausea and vomiting. Patient is 7 weeks and has had been to hospital three times and has been on reglan for nausea control. Aox4, respirations even and unlabored lung sounds clear to auscultation, heart tones S1S2, distal pulses palpable, capillary refill less than 2 seconds, bowel sounds positive times 4 quadrants, abdomensoft and non tender, skin color consistent with ethnicity warm and dry. D Nurse Note - Luly Tyler, RN - 08/28/2020 9:04 PM ALMATJaally Mauricio Clotilde Fuentes is a 29 year old female reports to the ED c/o abdominal pain "all over" and vomiting x 2 days. Patient states she is "7 weeks and some odd days" . Pt states "my bodies rejecting it." patient denies vaginal bleeding, fever, cough, SOB. . Patient was seen in [place] for same complaint, patient's s/o states "they gave her pain pills and them water bags andsent her out." Pt states "I want it out, I just want it out. I called the other day and they said y'all could do that." Respirations even and unlabored, NAD noted. Patient spitting into emesis bag, no vomiting noted. Patient medicated with reglan at 1400. documented in this encounter Plan of Treatment Date Type Specialty Care Team Description 08/31/2020 Routine Visit OB Satellites Lauren Fernandez, CITY WELLNESS COORDINATOR [address] [address] [phone] Health Maintenance Due Date Last Done Comments [...] encounter Procedures Procedure Name Priority Date/Time Associated Comments Diagnosis URINALYSIS STAT 08/29/2020 12:26 AM Abdominal pain Result s for this CDT during in procedur e are in first trimester the results section. CBC WITH DIFF STAT 08/28/2020 10:08 PM Abdominal pain Resul ts for this CDT during in procedur e are in first trimester the results section. TOTAL BETA HCG ASSAY STAT 08/28/2020 10:08 PM Abdominal jackie n Results for this CDT during in procedur e are in first trimester the results section. BASIC METABOLIC STAT 08/28/2020 10:08 PM Abdominal pain Res ults for this PANEL (NA, K, CL, CDT during in pro cedure are in CO2, GLUCOSE, BUN, first trimester the re sults CREATININE, CA) section. HEPATIC FUNCTION STAT 08/28/2020 10:08 PM Abdominal pain Re sults for this PANEL (11452) CDT [facility] (ALB,T.PRO,BILI first trimester the resul ts T,BU/BC,ALT,AST,ALK section. PHOS) documented in this encounter Results Urinalysis (08/29/2020 12:26 AM CDT) Pathologist Sig nature APPEARANCE Clear Clear [facility] COLOR Trudi (A) Yellow [facility] PH 7.0 4.8 - 8.0 [facility] SP GRAVITY 1.030 1.003 - 1.030 [facility] GLU U QUAL Normal Normal [facility] BLOOD Negative Negative [facility] KETONES 80 mg/dL (A) Negative [facility] PROTEIN 30 mg/dL (A) Negative [facility] UROBILIN 2.0 mg/dL (A) Normal [facility] BILIRUBIN Negative Negative [facility] NITRITE Negative Negative [facility] LEUK HO Negative Negative [facility] RBC/HPF 3 0 - 3 HPF [facility] WBC/HPF 3 0 - 5 HPF [facility] BACTERIA Negative Negative [facility] MUCOUS Marked (A) Negative LPF [facility] SQ EPITH 4 (H) <=2 HPF [facility] Specimen Urine - URINE, CLEAN CATCH Performing Organization Address City/State/Zipcode Phone Number [facility] CLIA: [id number] [place], [place] [address] [address] [place], [place] [address]vd TOTAL BHCG (QUANTITATIVE) (08/28/2020 10:08 PM CDT) Pathologist Sig nature BETA HCG 140,720.00 Non- female [facility] and male patients: SERVICES <5 mIU/mL Specimen Blood - VENOUS Narrative Performed At [facility] Gestational Age Rang e (mIU/mL) 1-10 Weeks 4 [phone] 11-15 Weeks 11 [phone] 16-22 Weeks 74 [phone] 23-40 Weeks 15 [phone] Biotin has been reported to cause a negative bias, int erpret results relative to patient's use of biotin. Performing Organization Address City/[facility] Phone Number [facility] CLIA: [id number] [place] [address] [place] [address] Hepatic Function Panel (ALB, T.PRO, BILI T, BU/BC, ALT, AST, ALK PHOS) (08/28/2020 10:08 PM CDT) Pathologist Sig nature TOTAL BILI 0.7 0.1 - 1.1 mg/dL [facility] BILI UNCON 0.9 0.1 - 1.1 mg/dL [facility] BILI CONJ 0.0 0.0 - 0.3 mg/dL [facility] T PROTEIN 6.8 6.3 - 8.2 g/dL [facility] ALBUMIN 4.1 3.5 - 5.0 g/dL [facility] ALK PHOS 56 34 - 122 U/L [facility] ALTv 21 5 - 35 U/L [facility] AST(SGOT) 20 13 - 40 U/L [facility] Specimen Blood - VENOUS Performing Organization Address City/[facility]/Zipcode Phone Number [facility] CLIA: [id number] [place] [address] [address] [place] [address] Basic Metabolic Panel (NA, K, CL, CO2, GLUCOSE, BUN, CREATININE, CA) (08/28/2020 10:08 PM CDT) NA 139 135 - 145 [facility] mmol/L SERVICES K 3.4 (L) 3.5 - 5.0 [facility] mmol/L SERVICES CL 108 98 - 108 mmol/L [facility] CO2 TOTAL 21 (L) 23 - 31 mmol/L [facility] AGAP 10 2 - 16 [facility] BUN 7 7 - 23 mg/dL [facility] GLUCOSE 99 70 - 110 mg/dL [facility] CREATININE 0.49 (L) 0.50 - 1.04 [facility] mg/dL SERVICES CALCIUM 9.0 8.6 - 10.6 [facility] mg/dL SERVICES eGFR Calculation 149.3 mL/min/1.73m2 [facility] (Non- SERVICES Bahraini) eGFR Calculation 181.0 mL/min/1.73m2 [facility] () SERVICES Specimen Blood - VENOUS Narrative Performed At Association of Glomerular Filtration Rate (GFR) and St aging [facility] of Kidney Disease* + + +------- ------ + | GFR (mL/min/1.73 m2) | With Kidney Damage | Wi thout Kidney Damage + + +------- ------ + | >90 | Stage one | Normal + + +------- ------ + | 60-89 | Stage two | Decreased GFR + + +------- ------ + | 30-59 | Stage three | Stage three + + +------- ------ + | 15-29 | Stage four | Stage four + + +------- ------ + | <15 (or dialysis) | Stage five | Stage five + + +------- ------ + *Each stage assumes the associated GFR level has been in effect for at least three months. Stages 1 to 5, wit h or without kidney disease, indicate chronic kidney disease. Notes: Determination of stages one and two (with eGFR >59mL/min/1.73 m2) requires estimation of kidney damag e for at least three months as defined by structural or func tional abnormalities of the kidney, manifested by either: Pathological abnormalities or Markers of kidney damage (including abnormalities in the composition of the blo od or urine or abnormalities in imaging tests) . Performing Organization Address City/State/Zipcode Phone Number [facility] CLIA: [id number] [place] [address] [place] [address] CBC with Differential (08/28/2020 10:08 PM CDT) Pathologist Sig nature WBC 8.57 4.30 - 11.10 [facility] 10*3/L SERVICES RBC 4.62 3.93 - 5.25 [facility] 10*6/L SERVICES HGB 14.5 11.6 - 15.0 [facility] g/dL SERVICES HCT 40.7 35.7 - 45.2 % [facility] MCV 88.1 80.6 - 95.5 fL [facility] MCH 31.4 25.9 - 32.8 pg [facility] MCHC 35.6 (H) 31.6 - 35.1 [facility] g/dL SERVICES RDW-SD 38.5 (L) 39.0 - 49.9 fL [facility] RDW-CV 12.0 12.0 - 15.5 % [facility] PLT 187 166 - 358 [facility] 10*3/L SERVICES MPV 9.8 9.5 - 12.9 fL [facility] NRBC/100 WBC 0.0 0.0 - 10.0 /100 [facility] WBCs SERVICES NRBC x10^3 <0.01 10*3/L [facility] GRAN MAT (NEUT) % 69.9 % [facility] IMM GRAN % 0.50 % [facility] LYMPH % 21.5 % [facility] MONO % 7.0 % [facility] EOS % 0.7 % [facility] BASO % 0.4 % [facility] GRAN MAT x10^3(ANC) 6.00 1.88 - 7.09 [facility] 10*3/uL SERVICES IMM GRAN x10^3 0.04 0.00 - 0.06 [facility] 10*3/uL SERVICES LYMPH x10^3 1.84 1.32 - 3.29 [facility] 10*3/uL SERVICES MONO x10^3 0.60 0.33 - 0.92 [facility] 10*3/uL SERVICES EOS x10^3 0.06 0.03 - 0.39 [facility] 10*3/uL SERVICES BASO x10^3 0.03 0.01 - 0.07 [facility] 10*3/uL SERVICES Specimen Blood - VENOUS Performing Organization Address City/State/Zipcode Phone Number [facility] CLIA: [id number] [place] [address] [place] [address] documented in this encounter Visit Diagnoses Diagnosis Abdominal pain during in first trimester - Primary Nausea and vomiting during documented in this encounter Administered Medications Medication Order MAR Action Action Date Dose Rate Site acetaminophen (TYLENOL) tablet Given 08/29/2020 1:53 AM CDT 1,0 00 mg 1,000 mg 1,000 mg, Oral, ONCE, 1 dose, 08/29/20 at 0245, Routine metoclopramide HCl (REGLAN) injection 10 mg Given 08/29/2020 12:28 AM CDT 10 mg 10 mg, Slow IV Push, ONCE, 1 dose, 08/29/20 at 0015, NICK morpHINE injection 4 mg Given 08/28/2020 10:06 PM CDT 4 mg 4 mg, Slow IV Push, ONCE, 1 dose, 08/28/20 at 2315, STAT NaCl 0.9% (NS) bolus infusion New Bag 08/28/2020 10:05 PM CDT 1,000 mL 999 mL/hr 1,000 mL at 999 mL/hr, 1,000 mL, IV Infusion, ONCE, 1 dose, 08/28/20 at 2215, NICK ondansetron (ZOFRAN (PF)) injection 8 mg Given 08/28/2020 10:06 PM CDT 8 mg 8 mg, Slow IV Push, ONCE, 1 dose, 08/28/20 at 2215, NICK proMETHazine (PHENERGAN) 25 mg in NaCl 0.9% Given 08/28/2020 11:00 PM CDT 25 mg (NS) 50 mL piggyback 25 mg, IV Piggyback, ONCE, 1 dose, 08/28/20 at 2230, 50 mL documented in this encounter Insurance Payer Benefit Plan / Subscriber ID Effective Phone Address [facility] Group Dates ASIA BETANCOURT [id number] 2018-Anupama [place]OX Medic [place] [id number] [place] documented as of this encounter Advance Directives Type Date Recorded Patient Supervisor Slate Splitting Explanati on Advance Directives and Living Will Power of Research Physicist Name Relationship Healthcare Agent Relationship Co mmunication Floyd Brown Father Health Care Agent Preet Alexx Other Health Care Agent [place] Gina Spouse First [facility] Care Agent (Mobile)
== END 2020-08-30 20:36 | disposition short-term general hospital (02) ==
LOC: ER 13:33
DX: O21.1 Hyperemesis gravidarum with metabolic disturbance (principal); Z3A.01 Less than 8 weeks gestation of pregnancy; Z88.6 Allergy status to analgesic agent; Z91.018 Allergy to other foods
CPT/HCPCS: 96365; 96361; 87088; 85025; 87086; 80048; 36415; 81025; 80076; 83690; 96375; 99285; J2765; J2550 ×2; J1200; J3480; J7030 ×2; J2405; 81003; 81015

== ENCOUNTER 2020-09-05 20:34 | Emergency (ER) | payer MEDICAID ==
--- OUTSIDE RECORDS SUMMARY | 2020-09-05 20:36 | XMS REPORT | Continuity of Care Document ---
:1990 Author Organization [facility] t Address [address] [place] [address] Care Team Providers Name Role Phone Tyler [...] Type Clinicians Facility Department ID 2020-08-30 2020-09-01 [facility] JAYCE Isaacs [id number] 21:50:00 13:00:00 Encounter Jad HINSON [id number] [facility] [id number] 2020-08-28 2020-08-29 Emergency Esperanza Allen TRAUMA [id number] 20:57:00 03:37:00 Leann Mulligan HICKORY [id number] 2020-08-26 2020-08-26 [place] [facility] [id number] 00:00:00 00:00:00 Roshunda R QUARRY WORKER [id number] REGIONAL [id number] MATERNAL [id number] & CHILD 107 [facility] 2020-08-24 2020-08-24 Key Account Manager Ultrasound, [facility] [id number] 13:29:59 13:59:59 Visit [facility] QUARRY WORKER [id number] REGIONAL [id number] MATERNAL [id number] & CHILD 369 [facility] 2020-08-24 2020-08-24 [facility] [id number] 00:00:00 00:00:00 Roshunda R QUARRY WORKER [id number] REGIONAL [id number] MATERNAL [id number] & CHILD 107 [facility] 2020-08-17 2020-08-17 [facility] [id number] 00:00:00 00:00:00 Roshunda R QUARRY WORKER [id number] REGIONAL [id number] MATERNAL [id number] & CHILD 107 [facility] 2020-08-04 2020-08-04 [facility] [id number] 00:00:00 00:00:00 Roshunda R QUARRY WORKER [id number] REGIONAL [id number] MATERNAL [id number] & CHILD 107 [facility] 2020-08-03 2020-08-03 [facility] [id number] 00:00:00 00:00:00 Roshunda R QUARRY WORKER [id number] REGIONAL [id number] MATERNAL [id number] & CHILD [address] [place] [address] - [place] Results This patient has no known results.
--- OUTSIDE RECORDS SUMMARY | 2020-09-05 20:39 | XMS REPORT | Summary of Care ---
:1990 Author Organization [facility] Address [address] [place] [address] Care Team Providers Name Role Phone Manjit E Insurance Hmo Lauren Fernandez [facility] Primary Care Provider Reason for Visit Reason Comments Assessment wanting to terminate pregnan cy Encounter Details Date Type Department Care Team Description 08/26/2020 Telephone [facility] Cornelius Fernandez, As sessment (wanting to [facility] terminate ) [address] [facility] [address] [place] [address] [place], [place] [phone] [address] [phone] Allergies Active Allergy Reactions Severity Noted Date Comments Ibuprofen Hives 04/15/2014 Howard Hives 04/15/2014 Sodium Citrate (Bulk) Nausea and/or Vomiting 9 documented as of this encounter (statuses as of 08/26/2020) Medications Medication Sig Dispensed Refills Start Date End Date Status ondansetron HCl Take by mouth. 0 Active (ZOFRAN ORAL) vit Take 1 Packet by 30 Each 6 08/03/2020 Active 38-xnxa-bkhxt-dha mouth daily. 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 Utility Encounter for IUD removal and [...] management 01/25/2015 05/20/2018 Overview: ICD10 Diagnosis Term Pmo Manager Utility Breast tenderness in female 01/25/2015 05/20/2018 Not immune to rubella 04/16/2014 06/04/2016 Overview: ICD10 Diagnosis Term Pmo Manager Utility documented as of this encounter (statuses as of 08/26/2020) Immunizations Name Administration Dates Next Due HPV9 06/04/2016 MMR 12/20/2018 (Deferred: - not available f [facility]) TDAP 04/06/2015 TDAP (ADACEL) VACCINE [...] 08/31/2020 Routine Visit OB Satellites Lauren Fernandez, CABLE TELEVISION LINE TECHNICIAN [address] [id number] 15 [phone] Health Maintenance Due Date Last Done Comments [...] Address T ype Group Dates ASIA BETANCOURT [id number] 2018-Anupama [address] B[address] Medic [place] [id number] MA[place]ED MED[place] documented as of this encounter Advance Directives Type Date Recorded 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
--- OUTSIDE RECORDS SUMMARY | 2020-09-05 20:39 | XMS REPORT | Summary of Care ---
:1990 Author Organization [facility] - Health Address [address] [place] [id number] Care Team Providers Name Role Phone Gamal Saravia Insurance [employer] Lauren Fernandez Primary Care Provider Reason for Referral (Routine) Status Reason Specialty Diagnoses / Referred By Referred To Procedures Contact Contact New Request OG-OBSTETRICS & Diagnoses Nausea and vomiting during Aufderheide, Leann GYNECOLOGY Procedures Discharge Follow-Up: Specialty Service [facility]G-OBSTETRICS & GYNECOLOGY; 3-5 Days MD Merna [address] [place] [address]. [place] [address] Reason for Visit Reason Comments Abdominal Pain Vomiting Auth/Cert Status Reason Specialty Diagnoses / Referred By Referred To Procedures Contact Contact Emergency Medicine [facility] rgency Dept [address] [place] [phone] Fax: Encounter Details Date Type Department Care Team Description 08/28/2020 - Emergency [facility] Monika Allen MD [address] [place] [phone] Abdominal pain during in first trimester (Primary Dx); 08/29/2020 Department Anthonyerjessi, Leann Bauman MD [address] [place] [phone] Nausea and vomiting during [address] [place] [phone] Allergies Active Allergy Reactions Severity Noted Date Comments Ibuprofen Hives 04/15/2014 Dickinson Hives 04/15/2014 Sodium Citrate (Bulk) Nausea and/or Vomiting 9 documented as of this encounter (statuses as of 08/29/2020) Medications Medication Sig Dispensed Refills Start Date End Date Status ondansetron HCl Take by mouth. 0 Active (ZOFRAN ORAL) vit Take 1 Packet by 30 Each 6 08/03/2020 Active [id number]-dha mouth daily. 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 SCHEDULE AN APPOINTMENT ONLINE AT [email or web address] 2. OR CALL THE [facility] ACCESS CENTER AT OR 3. OR CALL YOUR [facility] PHYSICIAN'S OFFICE DIRECTLY IF YOU ARE ALREADY AN ESTABLISHED [facility] PATIENT. RETURN TO ER FOR WORSENING OF SYMPTOMS. AttachmentsThe following attachments cannot be sent through Care Everywhere. : Your First Trimester Changes (Mongolian)Severe Morning Sickness (Hyperemesis Gravidarum) (Mongolian)documented in this encounter ED Notes Arsalan Salazar [...] site, catheter intact. Patient ambulatory to the [facility] accompanied by visitors x2, in possession [...] - 08/28/2020 11:47 PM CDT[facility] Nurse Note - Ada Bush RN [...] cough, SOB. . Patient was seen in [place] for same complaint, patient's s/o states "they [...] 08/31/2020 Routine Visit OB Satellites Lauren Fernandez, TELEPHONE TECHNICIAN [address] [address] [phone] Health Maintenance Due Date Last Done Comments [...] Abdominal pain Re sults for this PANEL (81503) CDT [facility] (ALB,T.PRO,BILI first trimester the resul ts T,BU/BC,ALT,AST,ALK section. PHOS) documented in this encounter Results Urinalysis (08/29/2020 12:26 AM CDT) Pathologist Sig nature APPEARANCE Clear Clear [facility] COLOR Trudi (A) Yellow [facility] PH 7.0 4.8 - 8.0 [facility] SP GRAVITY 1.030 1.003 - 1.030 [facility] GLU U QUAL Normal Normal [facility] BLOOD Negative Negative [facility] KETONES 80 mg/dL (A) Negative [facility] PROTEIN 30 mg/dL (A) Negative [facility] UROBILIN 2.0 mg/dL (A) Normal [facility] BILIRUBIN Negative Negative [facility] NITRITE Negative Negative [facility] LEUK HO Negative Negative [facility] RBC/HPF 3 0 - 3 HPF [facility] WBC/HPF 3 0 - 5 HPF [facility] BACTERIA Negative Negative [facility] MUCOUS Marked (A) Negative LPF [facility] SQ EPITH 4 (H) <=2 HPF [facility] Specimen Urine - URINE, CLEAN CATCH Performing Organization Address City/State/Zipcode Phone Number [facility] CLIA: [id number] [place], [place] [id number] [address] [place], [place] [address]vd TOTAL BHCG (QUANTITATIVE) (08/28/2020 10:08 PM CDT) Pathologist Sig nature BETA HCG 140,720.00 Non- female [facility] and male patients: SERVICES <5 mIU/mL Specimen Blood - VENOUS Narrative Performed At [facility] Gestational Age Rang e (mIU/mL) 1-10 Weeks 4 [phone] 11-15 Weeks 11 [phone] 16-22 Weeks 74 [phone] 23-40 Weeks 15 [phone] Biotin has been reported to cause a negative bias, int erpret results relative to patient's use of biotin. Performing Organization Address City/[facility]/Unm Hospitalcode Phone Number [facility] CLIA: [id number] [place] [address] [place] [address] Hepatic Function Panel (ALB, T.PRO, BILI T, BU/BC, ALT, AST, ALK PHOS) (08/28/2020 10:08 PM CDT) Pathologist Sig nature TOTAL BILI 0.7 0.1 - 1.1 mg/dL [facility] BILI UNCON 0.9 0.1 - 1.1 mg/dL [facility] BILI CONJ 0.0 0.0 - 0.3 mg/dL [facility] T PROTEIN 6.8 6.3 - 8.2 g/dL [facility] ALBUMIN 4.1 3.5 - 5.0 g/dL [facility] ALK PHOS 56 34 - 122 U/L [facility] ALTv 21 5 - 35 U/L [facility] AST(SGOT) 20 13 - 40 U/L [facility] Specimen Blood - VENOUS Performing Organization Address City/[facility]/Zipcode Phone Number [facility] CLIA: [id number] [place] [id number] [address] [place] [address] Basic Metabolic Panel (NA, K, CL, CO2, GLUCOSE, BUN, CREATININE, CA) (08/28/2020 10:08 PM CDT) NA 139 135 - 145 [facility] mmol/L SERVICES K 3.4 (L) 3.5 - 5.0 [facility] mmol/L SERVICES CL 108 98 - 108 mmol/L [facility] CO2 TOTAL 21 (L) 23 - 31 mmol/L [facility] AGAP 10 2 - 16 [facility] BUN 7 7 - 23 mg/dL [facility] GLUCOSE 99 70 - 110 mg/dL [facility] CREATININE 0.49 (L) 0.50 - 1.04 [facility] mg/dL SERVICES CALCIUM 9.0 8.6 - 10.6 [facility] mg/dL SERVICES eGFR Calculation 149.3 mL/min/1.73m2 [facility] (Non- SERVICES British) eGFR Calculation 181.0 mL/min/1.73m2 [facility] () SERVICES Specimen Blood - VENOUS Narrative Performed At Association of Glomerular Filtration Rate (GFR) and St aging [facility] of Kidney Disease* + [...] . Performing Organization Address City/State/Zipcode Phone Number [facility] CLIA: [id number] [place] [address] [place] [address] CBC with Differential (08/28/2020 10:08 PM CDT) Pathologist Sig nature WBC 8.57 4.30 - 11.10 [facility] 10*3/L SERVICES RBC 4.62 3.93 - 5.25 [facility] 10*6/L SERVICES HGB 14.5 11.6 - 15.0 [facility] g/dL SERVICES HCT 40.7 35.7 - 45.2 % [facility] MCV 88.1 80.6 - 95.5 fL [facility] MCH 31.4 25.9 - 32.8 pg [facility] MCHC 35.6 (H) 31.6 - 35.1 [facility] g/dL SERVICES RDW-SD 38.5 (L) 39.0 - 49.9 fL [facility] RDW-CV 12.0 12.0 - 15.5 % [facility] PLT 187 166 - 358 [facility] 10*3/L SERVICES MPV 9.8 9.5 - 12.9 fL [facility] NRBC/100 WBC 0.0 0.0 - [...] VENOUS Performing Organization Address City/State/Zipcode Phone Number [facility] CLIA: [id number] [place] [address] [place] [address] documented in this encounter Visit Diagnoses Diagnosis [...] / Subscriber ID Effective Phone Address T [facility] Group Dates ASIA BETANCOURT [id number] 2018-Anup[employer] [facility] [place] [id number] MANAGED MED[place]ID [place], [place] documented as of this encounter Advance Directives Type Date Recorded 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
--- OUTSIDE RECORDS SUMMARY | 2020-09-05 20:40 | XMS REPORT | Summary of Care ---
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 Lorena FRANKLIN [address] [place], [place] [phone] Reason for Visit Auth/Cert Status Reason Specialty Diagnoses / Procedures Referred By Lauren marquez To Contact Contact Obstetrics Diagnoses 7wks IUP hyperemesis J10c [address] [place] [phone] Phone: Fax: Encounter Details Date Type Department Care Team Description 08/30/2020 - Hospital Encounter Obstetrics and Jad Isaacs ea and vomiting 09/01/2020 Gynecology (J10C) MD Tyler during [address] [place] [id number] [phone] Allergies Active Allergy Reactions Severity Noted Date Comments Ibuprofen Hives 04/15/2014 [place] Hives 04/15/2014 Sodium Citrate (Bulk) Nausea and/or Vomiting 9 documented as of this encounter (statuses as of 09/01/2020) Medications Medication Sig Dispensed Refills Start End Date Status Date vit Take 1 Packet by 30 Each 6 Active 62-mccm-wmvja-dha mouth daily. 0 (SELECT-OB + DHA) 29 mg iron-1 mg -250 mg combo packIndications: Supervision of high risk in first trimester pyridoxine, VITAMIN Take 1 tablet by 120 tablet 1 Active B-6, 25 mg mouth every 6 0 20 tabletIndications: (six) hours for Hyperemesis 42 days. gravidarum doxylamine 25 mg Take 1 tablet by 120 tablet 1 10/13 Active tabletIndications: mouth every 6 0 20 Hyperemesis (six) hours for gravidarum 42 days. proCHLORperazine 10 Take 1 tablet by 20 tablet 0 Active mg mouth every 6 0 tabletIndications: (six) hours as Hyperemesis needed (for gravidarum nausea and vomiting unresponsive to doxylamine/pyrid oxine). ondansetron HCl Take by mouth. 0 09/01/20 Discontinued (ZOFRAN ORAL) 20 proMETHazine 25 mg Take 1 tablet by 30 tablet 1 100 07/14 Discontinued tabletIndications: mouth every 4 0 20 Nausea (four) hours as needed for Nausea and Vomiting (N/V). pyridoxine, VITAMIN Take 1 tablet by 20 tablet 0 07/14 Discontinued B-6, (VITAMIN B-6) mouth every 8 0 20 25 mg (eight) hours as tabletIndications: needed for Nausea and vomiting Nausea and during Vomiting (N/V). documented as of this encounter (statuses as of 09/01/2020) Active Problems Problem Noted Date Hyperemesis gravidarum before end of 22 week gestation with dehydration 08/31/2020 Obesity (BMI 30-39.9) 08/31/2020 Hyperemesis gravidarum 08/31/2020 8 weeks gestation of 08/30/2020 Desires (vaginal after ) trial 07/2020 Special screening examination for viral disease 2019 Encounter for care of lactating mother 12/26 Previous section complicating 12/20 Atypical squamous cells of undetermined significance ( ASCUS) on 12/18/2018 Papanicolaou smear of cervix Nausea and vomiting during 07/16/2018 BMI 32.0-32.9,adult 05/31/2018 Maternal varicella, non-immune 05/21/2018 Overview: Address pp Rubella non-immune status, antepartum 05/21/2018 Overview: Address pp Supervision of high risk in first trimester 05/20/2018 Multiparity 05/20/2018 Obesity in 01/25/2015 Overview: ICD10 Diagnosis 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 Encounter for IUD removal and reinsertion 01/18/2015 ASCUS on Pap smear 04/15/2014 Estimated Date of Delivery Comments Yes 04/11/2021 Based on Ultrasound, FHT: 127, Transverse Presentation, Placen ta Too early to evaulate documented as of this encounter (statuses as of 09/01/2020) Resolved Problems Problem Noted Date Resolved Date 37 weeks gestation of 12/18/2018 01/08/20 19 [place] contraction 12/12/2018 01/08/2019 Abnormal maternal glucose tolerance, antepartum 12/11/2018 01/08/2019 33 weeks gestation of 11/22/2018 12/18/19 19 contractions 11/22/2018 12/18/2018 Nausea 10/14/2018 08/30/2020 Trichomonal vaginitis during in second trimester 1 11/25/2017 02/04/2019 38 weeks gestation of 07/19/2018 07/21/20 18 15 weeks gestation of 07/17/2018 09/25/20 18 Intractable cyclical vomiting with nausea 07/17/2018 09/25/2018 Trichomonas infection 07/17/2018 09/25/2018 Hyperemesis gravidarum 05/31/2018 12/18/2018 7 weeks gestation of 05/31/2018 8 Family history of deafness 05/27/2018 01/08/2019 History of delivery 05/20/2018 01/08/2019 Overview: X2 per patient ROR requested Well woman exam 06/04/2016 08/30/2020 Request for sterilization 05/17/2016 11/27/2017 Anxiety and depression 05/17/2016 09/25/2018 Right knee pain 10/10/2015 06/04/2016 Irregular menstrual cycle 01/25/2015 09/25/2018 Other malaise and fatigue 01/25/2015 06/04/2016 Contraceptive management 01/25/2015 05/20/2018 Overview: ICD10 Diagnosis 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 documented as of this encounter Last Filed Vital Signs Vital Sign Reading Time Taken Comments Blood Pressure 122/71 09/01/2020 12:00 PM CDT Pulse 88 09/01/2020 12:00 PM CDT Temperature 36.9 C (98.4 F) 09/01/2020 12:00 PM CDT Respiratory Rate 18 09/01/2020 12:00 PM CDT Oxygen Saturation 97% 09/01/2020 12:00 PM CDT Inhaled Oxygen Concentration - - Weight 83.1 kg (183 lb 4.8 oz) 08/31/2020 12:46 AM CDT Height 162.6 cm (5' 4.02") 08/31/2020 12:46 AM CDT Body Mass Index 31.45 08/31/2020 12:46 AM CDT documented in this encounter Discharge Instructions InstructionsFoWendy vera RN - 09/01/2020B6 and doxlamine take every 6 hours. 06, NOON, 6pm, [place] AttachmentsThe following attachments cannot be sent through Care Everywhere. Diet, [place] (Adult) (Moroccan)documented in this encounter Progress Notes Major Velasquez MD - 09/01/2020 7:16 AM CDT ANTEPARTUM PROGRESS NOTE Subjective: Pt denies any new problems overnight. Denies headache, dizziness, nausea or vomiting, dysuria, RUQ or epigastric pain. Pt denies CTX, LOF, or VB. +FM Objective: BP: (117-135)/(62-77) Temp: [36.7 C (98.1 F)-37.1 C (98.8 F)] Temp source: Oral (09/01 0800) Pulse: [68-91] Resp: [17-18] SpO2: [99 %-100 %] Height: -- Weight: -- BMI (calculated): -- Physical exam: General: patient alert and in no acute distress HEENT: symmetric, negative for masses Lungs: unlabored breathing Cardiology: peripheral pulses intact and regular Abdomen: soft, non-tender, non-distended, no liver, spleen or abnormal masses palpated and Gravid Extremities: no clubbing, cyanosis, or edema Neuro: patient moving all extremities, no facial droop : deferred Current Facility-Administered Medications Medication Dose Route Frequency Last Rate Last Dose proCHLORperazine (COMPAZINE) tablet 10 mg 10 mg Oral Q6HPRN alum-mag hydroxide-simeth (MAALOX PLUS / MAG-AL PLUS) 200-200-20 mg/5 mL suspension 30 mL 30 mLOral Q6HPRN D5W-LR IV infusion 1,000 mL 1,000 mL IV Infusion CONTINUOUS 125 mL/hr at 08/31/20 2228 1,000 mLat 08/31/208 docusate calcium (SURFAK) capsule 240 mg 240 mg Oral QHSPRN doxylamine (SLEEP AID) tablet 25 mg 25 mg Oral Q6H 25 mg at 09/01/20 0503 lactated ringers IV infusion 1,000 mL 1,000 mL IV Infusion CONTINUOUS 100 mL/hr at 09/01/20 0550 1,000 mL at 09/01/20 0550 magnesium hydroxide (MILK OF MAGNESIA) 400 mg/5 mL suspension 30 mL 30 mL Oral QDAILYPRN pantoprazole (PROTONIX) 40 mg in NaCl 0.9% (NS) 100 mL MINI-BAG 40 mg IV Piggyback Q12H 40 mgat 08/31/20 1937 vitamin w/FA (PRENATABS RX) tablet 1 tablet 1 tablet Oral DAILY Stopped at 08/31/20 0900 proMETHazine (PHENERGAN) 25 mg in NaCl 0.9% (NS) 50 mL IV piggyback 25 mg IV Piggyback [id number] mg at 09/01/20 0552 pyridoxine (VITAMIN B-6) tablet 25 mg 25 mg Oral Q6H 25 mg at 09/01/20 0501 LABS: CBC BMP PT/INR WBC x10^3 (/uL) Date Value 01/04/2015 7.2 WBC (10*3/L) Date Value 08/28/2020 8.57 NA (mmol/L) Date Value 09/01/2020 135 No results found for: PT RBC x10^6 (/uL) Date Value 01/04/2015 4.92 RBC (10*6/L) Date Value 08/28/2020 4.62 K (mmol/L) Date Value 09/01/2020 3.6 No results found for: PTINR PLT x10^3 (/uL) Date Value 01/04/2015 202 PLT (10*3/L) Date Value 08/28/2020 187 CALCIUM (mg/dL) Date Value 09/01/2020 8.6 HGB Date Value 08/28/2020 14.5 g/dL 01/04/2015 15.2 G/DL (H) CL (mmol/L) Date Value 09/01/2020 106 PTT HCT (%) Date Value 08/28/2020 40.7 01/04/2015 43.5 BUN (mg/dL) Date Value 09/01/2020 3 (L) No results found for: APTTPAT CREATININE (mg/dL) Date Value 09/01/2020 0.46 (L) AST(SGOT) (U/L) Date Value 08/28/2020 20 ALT(SGPT) (U/L) Date Value 01/05/2019 18 ALTv (U/L) Date Value 08/28/2020 21 No results found for: URICACID, [id number] No results found for: LDH Assessment/Plan: Suraj Luly Fuentes 29 year old at 8w2d by u(7) admitted for hyperemesis gravidarum Hospital Day: 3 Hyperemesis gravidarum - Based on 4 weeks persistent n/v, ketonuria, ~5% weight loss, and hypokalemia (3.2) - Weight 85.4 kg at initial visit 08/03 -->81.6 kg OSH today - Reports taking doxylamine/pyridoxine together twice daily (never increased to TID/qid), tried PO benadryl, prescribed PO Phenergan (which she reports helped a little), PO Reglan did not help, PO zofran did not help either -Last ate 3-4 days ago, unable to tolerate PO for over 2 days - [place] ED Course: s/p 2L NS bolus, IV 4mg zofran, 12.5 benadryl, 20mg Pepcid, 12.5 phenergan, refused second phenergan dose so given Reglan 10mg, 20mEq KCLrepletion - OSH labs remarkable for K 3.2, Cr 0.72, LFT WNL, lipase 59, Udip with 2+ ketone -Patient reports severe nausea, dry heaving noted in triage - Upon transfer to [facility], P 80s, BP 120/60s - Repeat UA shows ketonuria (80) - Vitals overnight afebrile, HR 60-80s, R 18, BP 110-130s / 60-70s - UOP 100-120cc/hr 08/31/2020 00:17 09/01/2020 05:18 NA 134 (L) 135 K 3.8 3.6 CL 104 106 CO2 TOTAL 22 (L) 21 (L) AGAP 8 8 BUN <2 (L) 3 (L) GLUCOSE 87 106 CREATININE 0.50 0.46 (L) eGFR CALCULATION (non ) 145.9 160.6 eGFR CALCULATION () 176.8 194.7 CALCIUM 8.8 8.6 - Plan:patient reports symptoms have improved with phenergan, compazine, pyridoxine/doxylamine. She passed initial PO challenge this morning. Will transition to PO antiemetics and follow throughout the day. Prev x1 - G1, G2 via - G3 via PCS 11/2018 due to breech presentation at 37w - Documented LTCS at [facility] - Desires possible Hx PTD - G1 at 34w - G2 at 36w COVID-19 SCREEN: Lab Results Component Value Date/Time COVID19 Not Detected 08/30/2020 11:37 PM Antepartum course reviewed - seronegative, Rnot immune, VZVnot immune,A positive/IATnegative, GBSunk, PapASCUS 11/2017, neg HRHPV, needs repeat cotesting in 3 years - H/H, plt:14.5/ 40.7,187on 08[facility]28/20 [facility] [id number] bpm via M mode on admission BSUS Major Velasquez MD 09/01/2020 Associated attestation - Marisel Galvan MD - 09/01/2020 10:40 AM CDT I was rounding [facility] faculty for this patient and was involved and agree with antepartum planning. Shewas seen and examined by me and the resident. 29 year old at 8w2d by u(7) admitted for hyperemesis gravidarum Hospital Day: 3 Hyperemesis gravidarum - Based on 4 weeks persistent n/v, ketonuria, ~5% weight loss, and hypokalemia (3.2) - Weight 85.4 kg at initial visit 08/03 --> 81.6 kg OSH today - Reports taking doxylamine/pyridoxine together twice daily (never increased to TID/qid), tried PO benadryl, prescribed PO Phenergan (which she reports helped a little), PO Reglan did not help, PO zofran did not help either - OSH labs remarkable for K 3.2, Cr 0.72, LFT WNL, lipase 59, Udip with 2+ ketone - Vitals overnight afebrile, HR 60-80s, R 18, BP 110-130s / 60-70s - UOP 100-120cc/hr 08/31/2020 00:17 09/01/2020 05:18 NA 134 (L) 135 K 3.8 3.6 CL 104 106 CO2 TOTAL 22 (L) 21 (L) AGAP 8 8 BUN <2 (L) 3 (L) GLUCOSE 87 106 CREATININE 0.50 0.46 (L) eGFR CALCULATION (non ) 145.9 160.6 eGFR CALCULATION () 176.8 194.7 CALCIUM 8.8 8.6 - Plan: patient reports symptoms have improved w po compazine prn breakthru, pyridoxine/doxylamine scheduled q 6. She passed initial PO challenge this morning. Will transition to PO antiemetics and follow throughout the day. Prev x1 - G1, G2 via - G3 via PCS 11/2018 due to breech presentation at 37w - Documented LTCS at [facility] - Desires possible Hx PTD - G1 at 34w - G2 at 36w COVID-19 SCREEN: Lab Results Component Value Date/Time COVID19 Not Detected 08/30/2020 11:37 PM Antepartum course reviewed - sero negative, Rnot immune, VZVnot immune, A positive/IAT negative, GBS unk, Pap ASCUS 11/2017, negHRHPV, needs repeat cotesting in 3 years - H/H, plt: 14.5 / 40.7, 187 on 08/28/20 [facility] FHT 171-178 bpm via M mode on admission BSUS Major Velasquez MD - 08/31/2020 1:15 PM CDTJamiee Luly Fuentes [id number] 08/31/2020 1:15 PM Post-Rounds: - daily BMP - will collect UA - NPO - D5LR - Monitor UOP - will start on protonix Major Velasquez MD OBGYN PGY3 08/31/2020 documented in this encounter H&P Notes Kim Hunter MD - 08/31/2020 12:15 AM CDT TRIAGE/L&D HISTORY & PHYSICAL IDENTIFYING DATA Suraj Fuentes is 29 year old, /White, 8w0d, female with DYLAN 04/11/2021, by Ultrasound. : 1990 Primary Care Physician: Cornelius Fernandez CHIEF COMPLAINT Transfer from [facility] ED HISTORY OF PRESENT ILLNESS Suraj Fuentes is a 29 year old at 8w0d who was transferred from [facility] ED for nausea and vomiting during with concern for hyperemesis gravidarum. Patient was seen for initial visit 08/03, reports onset of nausea and vomiting around that time. She reports taking doxylamine/pyridoxine together twice daily (never increased to TID/qid), triedPO benadryl, prescribed PO Phenergan (which she reports helped a little), PO Reglan did not help. She had worsening n/v the past week. She last ate 3-4 days ago, unable to tolerate PO for over 2 days. She went to [place] ED earlier this week (3-4 days ago), then presented to [facility] ED Saturday night.She was given 1L bolus, IV zofran, IV phenergan, and reglan, PO challenged with water/crackers, thensent home with renewed eRx vitamin B6. Reports PO zofran and Reglan not helping right now, [facility]: Afebrile, Pulse 71-86, BP 110-130/60-80s Given 2L NS bolus, IV 4mg zofran, 12.5 benadryl, 20mg Pepcid, 12.5 phenergan, refused second phenergan dose so given Reglan 10mg, 20mEq KCL Labs remarkable for K 3.2, Cr 0.72, LFT WNL, lipase 59, Udip with 2+ ketone ROS Constitutional: Denies fever, chills, appetite changes HEENT: Denies vision changes, hearing loss, congestion, sore throat Cardiovascular: Denies CP, palpitations, LE swelling Respiratory: Denies dyspnea, coughing, wheezing Gastrointestinal: +N/V, Denies constipation, GERD, hematochezia Genitourinary: Denies dysuria, frequency, hematuria, abnormal vaginal bleeding, abnormal vaginal discharge Neuro: Denies RAMOS, dizziness, syncope, weakness MSCT: Denies joint pain, back pain, decreased range of motion Psych: Denies anxiety, depression, SI/HI Heme: Denies easy bruising, gum bleeding PAST OBSTETRIC HISTORY OB History Para Term AB Living 4 3 1 2 0 3 SAB TAB Ectopic Multiple Live Births 0 0 0 0 3 # Outcome Date GA Lbr Eris/2nd Weight Sex Delivery Anes PTL Lv 4 Current 3 Term 12/18/18 37w0d 2410 g SEC ELSI Complications: Breech 2 03/13/11 36w0d M VAGINAL ELSI 1 01/04/10 34w0d F VAGINAL ELSI Complications: Non Reassuring Status Obstetric Comments deliveries- 2009 due to Nuchal umbilical cord 2011 Premature labor PAST MEDICAL HISTORY Problem list: Patient Active Problem List Diagnosis Date Noted Hyperemesis gravidarum before end of 22 week gestation with dehydration 08/31/2020 8 weeks gestation of 08/30/2020 Desires (vaginal after ) trial 08/03/2020 Special screening examination for viral disease 08/03/2020 Encounter for care of lactating mother 01/08/2019 Previous section complicating 12/20/2018 Atypical squamous cells of undetermined significance (ASCUS) on Papanicolaou smear of cervix 12/18/2018 Nausea and vomiting during 07/16/2018 BMI 32.0-32.9,adult 05/31/2018 Maternal varicella, non-immune 05/21/2018 Rubella non-immune status, antepartum 05/21/2018 Supervision of high risk in first trimester 05/20/2018 Multiparity 05/20/2018 Obesity in 01/25/2015 Encounter for IUD removal and reinsertion 01/18/2015 ASCUS on Pap smear 04/15/2014 Operations: Past Surgical History: Procedure Laterality Date APPENDECTOMY 11/14/2017 Dr. Lomax SECTION N/A 12/18/2018 Surgeon: Manny Gray; Location: Labor and Delivery - [facility] Past Medical History: Diagnosis Date Abnormal maternal glucose tolerance, antepartum 12/11/2018 Resolved per pt report Anxiety Resolved per pt report Anxiety and depression resolved Mental disorder Ovarian cyst recently found out of dx. CURRENT HEALTH STATUS Medications: Current Facility-Administered Medications Medication Dose Route Frequency Last Rate Last Dose alum-mag hydroxide-simeth (MAALOX PLUS / MAG-AL PLUS) 200-200-20 mg/5 mL suspension 30 mL 30 mLOral Q6HPRN docusate calcium (SURFAK) capsule 240 mg 240 mg Oral QHSPRN doxylamine (SLEEP AID) tablet 25 mg 25 mg Oral Q6H lactated ringers IV infusion 1,000 mL 1,000 mL IV Infusion CONTINUOUS magnesium hydroxide (MILK OF MAGNESIA) 400 mg/5 mL suspension 30 mL 30 mL Oral QDAILYPRN vitamin w/FA (PRENATABS RX) tablet 1 tablet 1 tablet Oral DAILY proMETHazine (PHENERGAN) 25 mg in NaCl 0.9% (NS) 50 mL IV piggyback 25 mg IV Piggyback Q6HPRN pyridoxine (VITAMIN B-6) tablet 25 mg 25 mg Oral Q6H Allergies and drug reactions: Ibuprofen, [place], and Sodium citrate (bulk) HOME MEDICATIONS Medications Prior to Admission Medication Sig Dispense Refill Last Dose pyridoxine, VITAMIN B-6, (VITAMIN B-6) 25 mg tablet Take 1 tablet by mouth every 8 (eight) hoursas needed for Nausea and Vomiting (N/V). 20 tablet 0 proMETHazine 25 mg tablet Take 1 tablet by mouth every 4 (four) hours as needed for Nausea and Vomiting (N/V). 30 tablet 1 ondansetron HCl (ZOFRAN ORAL) Take by mouth. Taking vit 56-qamv-cdpns-dha (SELECT-OB + DHA) 29 mg iron-1 mg -250 mg combo pack Take 1 Packet by mouth daily. 30 Each 6 SOCIAL HISTORY Tobacco History: Social History Tobacco Use Smoking Status Never Smoker Smokeless Tobacco Never Used Drug History: Social History Substance and Sexual Activity Drug Use No Alcohol History: Social History Substance and Sexual Activity Alcohol Use Yes Alcohol/week: 0.0 standard drinks Comment: socially FAMILY HISTORY Family History Problem Relation Age of Onset [...] Psychiatry NoFHx Other - see comments NoFHx VITAL SIGNS BP: (121-135)/(67-78) Temp: [36.8 C (98.2 F)] Temp source: Axillary (08/300) Pulse: [79-84] Resp: [18] SpO2: [100 %] Height: -- Weight: -- BMI (calculated): -- PHYSICAL EXAMINATIONS General: patient alert and in no acute distress HEENT: symmetric, negative for masses Lungs: unlabored breathing Cardiology: peripheral pulses intact and regular Abdomen: soft, mild, non-reproducible tenderness to moderate palpation in all quadrants, non-distended, no liver, spleen or abnormal masses palpated, no guarding or rebound Extremities: no clubbing, cyanosis, or edema Neuro: patient moving all extremities, no facial droop : deferred REVIEW OF LABORATORY, PATHOLOGY, AND RADIOLOGY DATA Lab results: Type & Screen Lab Results Component Value Date/Time IABORH A POSITIVE 08/03/2020 02:17 PM IAT Negative 08/03/2020 02:17 PM Serologies Lab Results Component Value Date/Time VZVIGG Equivocal 08/03/2020 02:17 PM HIVMULTIPLEX Non-reactive 12/10/2018 03:21 PM RUBG Negative 08/03/2020 02:17 PM RUBG Negative 04/15/2014 11:50 AM SYPIGG Non-reactive 08/03/2020 02:17 PM SYPIGG Nonreactive 07/19/2018 07:41 PM HBSAG Negative 08/03/2020 02:17 PM HBSAG 0.13 08/03/2020 02:17 PM Chlamydia Lab Results Component Value Date/Time VCAA Negative 08/03/2020 02:32 PM VCAA NEGATIVE 04/06/2015 03:10 PM Group B Strep No results found for: CGBS 1H GTT Lab Results Component Value Date/Time TCBU4XJ 124 08/03/2020 02:17 PM CBC Lab Results Component Value Date/Time HGB 14.5 08/28/2020 10:08 PM HGB 15.2 (H) 01/04/2015 02:50 PM HCT 40.7 08/28/2020 10:08 PM HCT 43.5 01/04/2015 02:50 PM PLT 187 08/28/2020 10:08 PM PLT 202 01/04/2015 02:50 PM Active Hospital Problems Diagnosis Date Noted Hyperemesis gravidarum before end of 22 week gestation with dehydration 08/31/2020 8 weeks gestation of 08/30/2020 Desires (vaginal after ) trial 08/03/2020 Previous section complicating 12/20/2018 Atypical squamous cells of undetermined significance (ASCUS) on Papanicolaou smear of cervix 12/18/2018 Nausea and vomiting during 07/16/2018 Maternal varicella, non-immune 05/21/2018 Address pp Rubella non-immune status, antepartum 05/21/2018 Address pp Multiparity 05/20/2018 Obesity in 01/25/2015 ICD10 Diagnosis 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 Present on Admission: 8 weeks gestation of Obesity in Multiparity Maternal varicella, non-immune Rubella non-immune status, antepartum Atypical squamous cells of undetermined significance (ASCUS) on Papanicolaou smear of cervix Desires (vaginal after ) trial Previous section complicating Nausea and vomiting during Hyperemesis gravidarum before end of 22 week gestation with dehydration ASSESSMENT AND PLAN uSraj Zuritasandy Fuentes is a 29 year old at 8w0d by u(7) who was transferred for n/v of and concern for hyperemesis gravidarum. Hyperemesis gravidarum - Based on 4 weeks persistent n/v, ketonuria, ~5% weight loss, and hypokalemia (3.2) - Weight 85.4 kg at initial visit 08/03 --> 81.6 kg OSH today - Reports taking doxylamine/pyridoxine together twice daily (never increased to TID/qid), tried PO benadryl, prescribed PO Phenergan (which she reports helped a little), PO Reglan did not help, PO zofran did not help either - Last ate 3-4 days ago, unable to tolerate PO for over 2 days - [place] ED Course: s/p 2L NS bolus, IV 4mg zofran, 12.5 benadryl, 20mg Pepcid, 12.5 phenergan, refused second phenergan dose so given Reglan 10mg, 20mEq KCL repletion - OSH labs remarkable for K 3.2, Cr 0.72, LFT WNL, lipase 59, Udip with 2+ ketone - Patient reports severe nausea, dry heaving noted at bedside - Upon transfer to [facility], P 80s, BP 120/60s - Repeat UA shows ketonuria (80) - Plan: Will admit to [facility] for management of hyperemesis gravidarum with continued IVF, ordered IV phenergan 25mg q6h PRN, attempt to start PO pyridoxine 25/doxylamine 25 (for discharge eRx purposes) qid, will consider adding IV compazine if nausea not relieved with phenergan - Ordered repeat BMP, will continue K+ repletion as needed - Consider PO challenge tomorrow morning if n/v relieved Prev x1 - G1, G2 via - G3 via PCS 11/2018 due to breech presentation at 37w - Documented LTCS at [facility] - Desires possible Hx PTD - G1 at 34w - G2 at 36w COVID-19 SCREEN: Lab Results Component Value Date/Time COVID19 Not Detected 08/30/2020 11:37 PM Antepartum course reviewed - sero negative, Rnot immune, VZVnot immune, A positive/IAT negative, GBS unk, Pap ASCUS 11/2017, negHRHPV, needs repeat cotesting in 3 years - H/H, plt: 14.5 / 40.7, 187 [facility] 171-178 bpm via M mode on admission BSUS D/w Dr. Shannon Hunter MD Informed consent discussed with the patient, including: condition, proposed care, treatments and services, alternative forms of treatment, and risks of no treatment. Details discussed around the procedures to be used, and the risks and hazards involved, potential benefits, and side effects of the patients proposed care, treatment, and services; the likelihood of the patient achieving his or her goals; and any potential problems that might occur during recuperation. Reasonable alternative also discussed with the patients proposed care, treatment, and services. The discussion encompasses risks, benefits, and side effects related to the alternative and risks related to not receiving the proposed care, treatment, and services. Associated attestation - Jad Isaacs MD - 08/31/2020 3:09 PM CDTI personally saw and examined the patient on 08/31/[address] Hunter, resident's assessment and plan. I actively participated in the decision-making process. Please, see the resident's note for additional details.documented in this encounter Consult Notes Kary Coppola RD - 08/31/2020 5:02 PM CDTFood Allergy and Cultural/Christian Food Preferences Consult Note: Spoke with patient's nurse today over the phone. Per nurse, patient with food allergy to oranges. Per allergy list patient with hives as reported reaction. Please see confirmed food allergy below. Confirmed Food Allergy: 1. [place] Reaction:Hives Confirmed Cultural Food Preferences: 1. None Confirmed Christian Food Preferences: 1. None Kary Coppola MS, RD, LD Clinical Dietitian RD Office: [phone] documented in this encounter Miscellaneous Notes Care Plan - Wendy Alan RN - 09/01/2020 12:23 PM CDT Problem: Discharge Planning - Antepartum Goal: Absence of seizure activity 09/01/2020 1223 by Wendy Alan RN Outcome: Adequate for discharge 09/01/2020 0753 by Wendy Alan RN Outcome: Progressing as expected Goal: Absence of venous thromboembolism 09/01/2020 1223 by Wendy Alan RN Outcome: Adequate for discharge 09/01/2020 0753 by Wendy Alan RN Outcome: Progressing as expected Goal: Adequate for discharge 09/01/2020 1223 by Wendy Alan RN Outcome: Adequate for discharge 09/01/2020 0753 by Wendy Alan RN Outcome: Progressing as expected Goal: Blood pressure within specified parameters 09/01/2020 1223 by Wendy Alan RN Outcome: Adequate for discharge 09/01/2020 0753 by Wendy Alan RN Outcome: Progressing as expected Problem: Nausea/Vomiting Goal: Absence of nausea/vomiting 09/01/2020 1223 by Wendy Alan RN Outcome: Adequate for discharge 09/01/2020 0753 by Wendy Alan RN Outcome: Progressing as expected are Plan - Wendy Alan RN - 09/01/2020 7:53 AM CDT Problem: Discharge Planning - Antepartum Goal: Absence of seizure activity Outcome: Progressing as expected Goal: Absence of venous thromboembolism Outcome: Progressing as expected Goal: Adequate for discharge Outcome: Progressing as expected Goal: Blood pressure within specified parameters Outcome: Progressing as expected Problem: Nausea/Vomiting Goal: Absence of nausea/vomiting Outcome: Progressing as expected are Jossie - Queenie Ni RN - 09/01/2020 12:16 AM CDT Problem: Discharge Planning - Antepartum Goal: Absence of seizure activity 09/01/2020 0016 by Queenie iN RN Outcome: Progressing as expected 09/01/2020 0015 by Queenie Ni RN Outcome: Progressing as expected Goal: Absence of venous thromboembolism 09/01/2020 0016 by Queenie Ni RN Outcome: Progressing as expected 09/01/2020 0015 by Queenie Ni RN Outcome: Progressing as expected Goal: Adequate for discharge 09/01/2020 0016 by Queenie Ni RN Outcome: Progressing as expected 09/01/2020 0015 by Queenie Ni RN Outcome: Progressing as expected Goal: Blood pressure within specified parameters 09/01/2020 0016 by Queenie Ni RN Outcome: Progressing as expected 09/01/2020 0015 by Queenie Ni RN Outcome: Progressing as expected Problem: Nausea/Vomiting Goal: Absence of nausea/vomiting 09/01/2020 0016 by Queenie Ni RN Outcome: Progressing as expected 09/01/2020 0015 by Ni, Queenie D, RN Outcome: Progressing as expected are Jossie - Queenie Ni RN - 09/01/2020 12:15 AM CDT Problem: Discharge Planning - Antepartum Goal: Absence of seizure activity Outcome: Progressing as expected Goal: Absence of venous thromboembolism Outcome: Progressing as expected Goal: Adequate for discharge Outcome: Progressing as expected Goal: Blood pressure within specified parameters Outcome: Progressing as expected Problem: Nausea/Vomiting Goal: Absence of nausea/vomiting Outcome: Progressing as expected are Jossie - Dea Jackson RN - 08/31/2020 8:27 AM CDT Problem: Discharge Planning - Antepartum Goal: Absence of seizure activity Outcome: Progressing as expected Goal: Absence of venous thromboembolism Outcome: Progressing as expected Goal: Adequate for discharge Outcome: Progressing as expected Goal: Blood pressure within specified parameters Outcome: Progressing as expected Problem: Nausea/Vomiting Goal: Absence of nausea/vomiting Outcome: Progressing as expected documented in this encounter Plan of Treatment Date Type Specialty Care Team Description 09/08/2020 Routine Visit OB Satellites Lauren Fernandez, [employer] DRIVER [address] [address] [phone] Name Type Priority Associated Diagnoses Order S chedule BASIC METABOLIC PANEL LAB Routine EVERY 24 HOURS (START TIME (NA, K, CL, CO2, ADJUSTABLE) for 2 GLUCOSE, BUN, Occurrences st arting CREATININE, CA) 09/01/2020 u ntil 09/02/2020, 1 c ompleted Health Maintenance Due Date Last Done Comments [...] Procedure Name Priority Date/Time Associated Comments Diagnosis BASIC METABOLIC Routine 09/01/2020 5:18 AM Resul ts for this PANEL (NA, K, CL, CDT procedure are in CO2, GLUCOSE, BUN, the resul ts CREATININE, CA) section. URINALYSIS Routine 08/31/2020 4:07 PM Results for this CDT procedure are i n the results section. HB ABO GROUPING Routine 08/31/2020 12:23 AM Resul ts for this CDT procedure are i n the results section. BASIC METABOLIC NICK 08/31/2020 12:17 AM Resul ts for this PANEL (NA, K, CL, CDT procedure are in CO2, GLUCOSE, BUN, the resul ts CREATININE, CA) section. COVID-19 (ID NOW STAT 08/30/2020 11:37 PM Resu lts for this RAPID TESTING) CDT procedure are in the results section. URINALYSIS NICK 08/30/2020 10:44 PM Results for this CDT procedure are i n the results section. documented in this encounter Results BASIC METABOLIC PANEL (NA, K, CL, CO2, GLUCOSE, BUN, CREATININE, CA) (09/01/2020 5:18 AM CDT) NA 135 135 - 145 [facility] mmol/L SERVICES K 3.6 3.5 - 5.0 [facility] mmol/L SERVICES CL 106 98 - 108 mmol/L [facility] CO2 TOTAL 21 (L) 23 - 31 mmol/L [facility] AGAP 8 2 - 16 [facility] BUN 3 (L) 7 - 23 mg/dL [facility] GLUCOSE 106 70 - 110 mg/dL [facility] CREATININE 0.46 (L) 0.50 - 1.04 [facility] mg/dL SERVICES CALCIUM 8.6 8.6 - 10.6 [facility] mg/dL SERVICES eGFR Calculation 160.6 mL/min/1.73m2 [facility] (Non- SERVICES [place]an) eGFR Calculation 194.7 mL/min/1.73m2 [facility] () SERVICES Specimen Blood - VENOUS Narrative Performed At Association of Glomerular Filtration Rate (GFR) and St aging [facility] of Kidney Disease* [...] in imaging tests) . Performing Organization Address City/[facility] Phone Number [facility] CLIA: [id number] [place], [place] [address] [address] [place] [address] URINALYSIS (08/31/2020 4:07 PM CDT) Pathologist Sig nature APPEARANCE Clear Clear [facility] COLOR Yellow Yellow [facility] PH 7.0 4.8 - 8.0 [facility] SP GRAVITY 1.012 1.003 - 1.030 [facility] GLU U QUAL 50 mg/dL (A) Normal [facility] BLOOD Negative Negative [facility] KETONES 80 mg/dL (A) Negative [facility] PROTEIN Negative Negative [facility] UROBILIN Normal Normal [facility] BILIRUBIN Negative Negative [facility] NITRITE Negative Negative [facility] LEUK HO Negative Negative [facility] RBC/HPF 3 0 - 3 HPF [facility] WBC/HPF <1 0 - 5 HPF [facility] BACTERIA Negative Negative [facility] MUCOUS Slight (A) Negative LPF [facility] SQ EPITH 2 <=2 HPF [facility] Specimen Urine - URINE, CLEAN CATCH Performing Organization Address [facility] Phone Number [facility] CLIA: [id number] [place] [address] [place] [address] Type and Screen - ONCE Routine (08/31/2020 12:23 AM CDT) Pathologist [facility] ABO & RH A POSITIVE LAB Comment: Performed at [facility] Services - [facility] Blood Bank [address] [place] [address] Toll Free: [phone] CLIA No. [id number] IAT Negative LAB Comment: Performed at [facility] Services - [facility] Blood Bank [address] [place] [address] Toll Free: [phone] CLIA No. [id number] Specimen Blood - VENOUS Performing Organization Address City[facility] Phone Number [facility] BASIC METABOLIC PANEL (NA, K, CL, CO2, GLUCOSE, BUN, CREATININE, CA) (08/31/2020 12:17 AM CDT) [facility] NA 134 (L) 135 - 145 [facility] mmol/L SERVICES K 3.8 3.5 - 5.0 [facility] mmol/L SERVICES CL 104 98 - 108 mmol/L [facility] SERVICES CO2 TOTAL 22 (L) 23 - 31 mmol/L [facility] SERVICES AGAP 8 2 - 16 [facility] BUN <2 (L) 7 - 23 mg/dL [facility] GLUCOSE 87 70 - 110 mg/dL [facility] CREATININE 0.50 0.50 - 1.04 [facility] mg/dL SERVICES CALCIUM 8.8 8.6 - 10.6 [facility] mg/dL SERVICES eGFR Calculation 145.9 mL/min/1.73m2 [facility] (Non- SERVICES [place]an) eGFR Calculation 176.8 mL/min/1.73m2 [facility] () SERVICES Specimen Blood - VENOUS Narrative Performed At [facility] Glomerular Filtration Rate (GFR) and St aging [facility] of Kidney Disease* [...] in imaging tests) . Performing Organization Address City/[facility]/Zipcode Phone Number [facility] CLIA: [id number] [place] [address] [place] [address] COVID-19 (ID NOW RAPID TESTING) (08/30/2020 11:37 PM CDT) SARS-CoV-2 Rapid ID Not Detected Not Detected [facility] NOW SERVICES Specimen Swab - NASOPHARYNGEAL SWAB Narrative Performed At [facility] NOW COVID-19 Assay is an isothermal nucleic acid [facility] amplification test intended for the qualitative detect ion of nucleic acid from SARS-CoV-2 viral RNA in nasopharynge al (SUPERVISOR TUMBLERS) specimens. It is used under Emergency Use Authori zation (EUA) by FDA. The limit of detection (LOD) of the assa y is 125 Genome Equivalents/mL. A positive result is indicative of the presence of SARS-CoV-2 RNA. Clinical correlation with patient hi story and other diagnostic information is necessary to deter mine patient infection status. A negative (Not Detected) result does not preclude SARS-CoV-2 infection. In patients with clinical sympto ms and other tests that are consistent with SARS-CoV-2 infect ion, negative results should be treated as presumptive nega tive and a new specimen should be tested with alternative P CR molecular test. Invalid: Please collect a new specimen for repeat jose luis ent testing if clinically indicated. Performing Organization Address City/State/Zipcode Phone Number [facility] CLIA: [id number] [place] [address] [phone] [address] [facility] URINALYSIS (08/30/2020 10:44 PM CDT) Pathologist Sig nature APPEARANCE Clear Clear [facility] COLOR Yellow Yellow [facility] PH 7.0 4.8 - 8.0 [facility] SP GRAVITY 1.012 1.003 - 1.030 [facility] GLU U QUAL Normal Normal [facility] BLOOD Negative Negative [facility] KETONES 80 mg/dL (A) Negative [facility] PROTEIN Negative Negative [facility] UROBILIN Normal Normal [facility] BILIRUBIN Negative Negative [facility] NITRITE Negative Negative [facility] LEUK HO Negative Negative [facility] RBC/HPF 2 0 - 3 HPF [facility] WBC/HPF <1 0 - 5 HPF [facility] BACTERIA Negative Negative [facility] MUCOUS Slight (A) Negative LPF [facility] SQ EPITH 1 <=2 HPF [facility] ASCORBIC ACID Negative [facility] Specimen Urine - URINE, CLEAN CATCH Performing Organization Address City/State/Zipcode Phone Number [facility] CLIA: [id number] [place] [address] [place] [address] documented in this encounter Visit Diagnoses Diagnosis Nausea and vomiting during - P rimary Hyperemesis gravidarum Mild hyperemesis gravidarum, unspecified as to episode of care 8 weeks gestation of state, incidental Obesity in Obesity complicating , childbir th, or the puerperium, unspecified as to episode of care or not applicable Multiparity Maternal varicella, non-immune Supervision of other high-risk Rubella non-immune status, antepartum Other specified complication, antepartum Atypical squamous cells of undetermined significance (ASCUS) on Papanicolaou smear of cervix Desires (vaginal after marc an) trial Previous delivery, unspecified as to episode of care or not applicable Previous section complicating p regnancy Previous delivery, unspecified as to episode of care or not applicable Hyperemesis gravidarum before end of 22 week gestation with dehydration Hyperemesis gravidarum with metabolic di sturbance, unspecified as to episode of care Obesity (BMI 30-39.9) Obesity, unspecified documented in this encounter Administered Medications Medication Order MAR Action Action Date Dose Rate Site alum-mag hydroxide-simeth (MAALOX PLUS / MAG-AL PLUS) 200-200-20 mg/5 mL suspension 30 mL 30 mL, Oral, Q6HPRN, Starting Sat08/31/20 at 0009, Unt il Discontinued, Routine, Indigestion D5W-LR IV infusion 1,000 mL New Bag 08/31/2020 10:28 PM CDT 1,000 mL 125 mL/hr at 125 mL/hr, IV Infusion, CONTINUOUS, Starting Sat08/31/20 at 1430, Until Discontinued, Routine New Bag 08/31/2020 1:51 PM CDT 1,000 mL 125 mL/hr docusate calcium (SURFAK) capsule 240 mg 240 mg, Oral, QHSPRN, Starting Sat at 0009, Until Discontinued, Routine, Constipation doxylamine (SLEEP AID) tablet 25 mg Given 09/01/2020 5:03 AM CDT 25 mg 25 mg, Oral, Q6H, First dose on Sat08/31/20 at 0015, Until Discontinued, Routine Given 08/31/2020 9:30 PM CDT 25 mg Given 08/31/2020 1:47 AM CDT 25 mg lactated ringers IV infusion New Bag 09/01/2020 5:50 AM CDT 1,000 mL 100 mL/hr 1,000 mL at 100 mL/hr, 1,000 mL, IV Infusion, CONTINUOUS, Starting Sat08/31/20 at 0015, Until Discontinued, Routine New Bag 08/31/2020 9:03 AM CDT 1,000 mL 100 mL/hr New Bag 08/31/2020 1:43 AM CDT 1,000 mL 100 mL/hr magnesium hydroxide (MILK OF MAGNESIA) 4 00 mg/5 mL suspension 30 mL 30 mL, Oral, QDAILYPRN, Starting 06/13 at 0009, Until Discontinued, Routine, Constipation pantoprazole (PROTONIX) 40 mg in NaCl 0.9% Given 09/01/2020 7:3 2 AM CDT 40 mg (NS) 100 mL MINI-BAG 40 mg, IV Piggyback, Q12H, First dose on Sat08/31/20 at 2000, Until Discontinued, 100 mL Given 08/31/2020 7:37 PM CDT 40 mg vitamin w/FA (PRENATABS RX) tab let 1 tablet 1 tablet, Oral, DAILY, First dose on Sat08/31/20 at 09 00, Until Discontinued, Routine proCHLORperazine (COMPAZINE) tablet 10 m g 10 mg, Oral, Q6HPRN, Starting Magalis 09/01/20 at 1130, Unt il Discontinued, Routine, Nausea and Vomiting (N/V), N/V unresponsive to Prometh azine pyridoxine (VITAMIN B-6) tablet 25 mg Given 09/01/2020 5:01 AM CDT 25 mg 25 mg, Oral, Q6H, First dose on Sat08/31/20 at 0015, Until Discontinued, Routine Given 09/01/2020 5:00 AM CDT 25 mg Given 08/31/2020 9:29 PM CDT 25 mg Medication Order MAR Action Action Date Dose Rate Site lactated ringers IV New Bag 08/30/2020 10:46 PM CDT 1,000 mL 999 mL/hr infusion 1,000 mL at 999 mL/hr, 1,000 mL, Intravenous, ONCE, 1 dose, [facility] 08/30/20 at 2330, Routine potassium chloride 20 mEq/100 mL Given 08/31/2020 9:04 AM CDT 2 0 mEq 50 mL/hr (KCL) 20 mEq/100 mL RTU IVPB 20 mEq 20 mEq, IV Piggyback, ONCE, 1 dose, Sat08/31/20 at 0800, 100 mL proCHLORperazine (COMPAZINE) 10 mg in NaCl Given 08/31/2020 12:0 1 PM CDT 10 mg 0.9% (NS) piggyback 10 mg, IV Piggyback, ONCE, 1 dose, Sat08/31/20 at 1015, 50 mL proCHLORperazine (COMPAZINE) 10 mg in NaCl Given 09/01/2020 6:5 0 AM CDT 10 mg 0.9% (NS) piggyback 10 mg, IV Piggyback, Q6HPRN, Starting Sat08/31/20 at 1318, Until Magalis 09/01/20 at 0712, 50 mL Given 08/31/2020 8:27 PM CDT 10 mg proMETHazine (PHENERGAN) 25 mg in NaCl 0.9% Given 09/01/2020 5:52 AM CDT 25 mg (NS) 50 mL IV piggyback 25 mg, IV Piggyback, Q6HPRN, Starting Sat08/31/20 at 0109, Until Magalis 09/01/20 at 0724, Routine, Nausea and Vomiting (N/V) Given 08/31/2020 8:11 AM CDT 25 mg Given 08/31/2020 1:44 AM CDT 25 mg documented in this encounter Additional Health Concerns Infection Onset Date Last Indicated Resolved Time COVID-19 Rule Out 08/30/2020 08/30/2020 08/31/2020 12: 10 AM CDT documented as of this encounter Insurance Payer Benefit Plan / Subscriber ID Effective Phone Address T ype Group Dates ASIA BETANCOURT [id number] 2018-[address] [place] [id number] MANAGED MEDICA[place], [place] documented as of this encounter Advance Directives Type Date Recorded Patient Line Servicer Explanati on Advance Directives and Living Will Power of Data Management Associate Name Relationship Healthcare Agent Relationship Co mmunication Floyd Brown Father Health Care Agent Preet Coffey Other Health Care Agent [place] Gina Spouse [facility] Health Care Agent (Mobile)
[2020-09-05] MEDS ORDERED: NA CHLORIDE 0.9% 1,000 ML ONE (21:17)
[2020-09-05] MEDS ORDERED: PROMETHAZINE INJ 25 MG/ML AMP ONE (21:17)
[2020-09-05 21:52] LABS: Absolute Lymphocytes (CBC) 1.3 K/uL (0.7-4.9); Basophils % 0.3 % (0-1.3); Hematocrit 42.3 % (36.0-45.0); Lymphocytes % 16.4 % (15.3-44.8); MPV 8.4 fL (7.6-11.3); RBC Red Blood Cell Count 4.79 M/uL (3.86-4.86)
[2020-09-05 22:02] LABS: BUN Blood Urea Nitrogen 6 mg/dL (7-18); Bicarbonate 23 mmol/L (21-32); Glucose Level 105 mg/dL (74-106); Potassium 3.7 mmol/L (3.5-5.1); Sodium Level 138 mmol/L (136-145)
[2020-09-05] MEDS ORDERED: DIPHENHYDRAMINE 50 MG/ML VIAL ONE (22:10)
[2020-09-05] MEDS ORDERED: ONDANSETRON 4 MG/2 ML VIAL ONE (22:55)
--- NOTE | 2020-09-05 23:23 | ER ---
Nurse's Notes [facility] Name: Suraj Fuentes Age: 29 yrs Sex: Female : 1990 Arrival Date: 09/05/2020 Time: 20:35 Bed 4 Private MD: Diagnosis: Mild hyperemesis gravidarum Presentation: 09/05 20:47 Chief complaint: Patient states: Nausea and Vomiting since this morning. Took some ca1 antinausea medication no relief. 8 weeks . Denies abdominal pain. Pt vomiting in triage. Coronavirus screen: Client denies travel out of the [place] in the last 14 days. nausea, vomiting. Client presents with at least one sign or symptom that may indicate coronavirus-19. Standard/surgical mask placed on the client. Provider contacted for isolation considerations. The client reports previous COVID testing was negative. Date of collection: August 30, 2020. Ebola Screen: Patient negative for fever greater than or equal to 101.5 degrees Fahrenheit, and additional compatible Ebola Virus Disease symptoms Patient denies exposure to infectious person. Patient denies travel to an Ebola-affected area in the 21 days before illness onset. No symptoms or risks identified at this time. Initial Sepsis Screen: Does the patient meet any 2 criteria? No. Patient's initial sepsis screen is negative. Does the patient have a suspected source of infection? No. Patient's initial sepsis screen is negative. Risk Assessment: Do you want to hurt yourself or someone else? Patient reports no desire to harm self or others. Onset of symptoms was September 05, 2020. 20:47 Method Of Arrival: Wheelchair ca1 20:47 Acuity: SHAW 3 ca1 Triage Assessment: 21:47 General: Appears in no apparent distress. Behavior is calm, cooperative, appropriate ll2 for age. GI: Reports. 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 - Social history:: Smoking status: Patient denies any tobacco usage or history of. Screenin:46 Abuse screen: Denies threats or abuse. Nutritional screening: No deficits noted. ll2 Tuberculosis screening: No symptoms or risk factors identified. Fall Risk IV access (20 points). Ambulatory Aid- None/Bed Rest/Nurse Assist (0 pts). Gait- Normal/Bed Rest/Wheelchair (0 pts) Mental Status- Oriented to own ability (0 pts). Total Chaidez Fall Scale indicates No Risk (0-24 pts). Assessment: 21:44 General: Appears in no apparent distress. Behavior is calm, cooperative, appropriate ll2 for age. Pain: Denies pain. Neuro: Level of Consciousness is awake, alert, obeys commands, Oriented to person, place, time, situation. Cardiovascular: Capillary refill < 3 seconds Patient's skin is warm and dry. Respiratory: Airway is patent Respiratory effort is even, unlabored, Respiratory pattern is regular, symmetrical. GI: Pt is actively vomiting clear fluid, states she is 8 weeks and has been vomiting since yesterday with no relief. : No signs and/or symptoms were reported regarding the genitourinary system. EENT: No signs and/or symptoms were reported regarding the EENT system. Derm: Skin is intact, Skin is dry, Skin is pink, warm \T\ dry. Skin temperature is warm. Musculoskeletal: Circulation, motion, and sensation intact. Range of motion: intact in all extremities. 23:28 Reassessment: Patient and/or family updated on plan of care and expected duration. Pain ea level reassessed. Patient is alert, oriented x 3, equal unlabored respirations, skin warm/dry/pink. Discharge instruction given to patient, verbalized the understanding of instruction. Pt left ED accompanied by family. Vital Signs: 20:47 BP 122 / 97; Pulse 108; Resp 18 S; Temp 97.7(TE); Pulse Ox 99% on R/A; Weight 83.01 kg ca1 (R); Height 5 ft. 2 in. (157.48 cm) (R); 22:00 BP 151 / 97; Pulse 80; Resp 19; Pulse Ox 100% on R/A; ll2 23:00 BP 116 / 53; Pulse 76; Resp 14; Pulse Ox 98% on R/A; ll2 20:47 Body Mass Index 33.47 (83.01 kg, 157.48 cm) ca1 ED Course: 20:35 Patient arrived in ED. am2 20:50 Triage completed. ca1 20:51 Arm band placed on right wrist. ca1 20:54 Christine Solares FNP-C is [facility]. kb 20:54 Carl Urbano MD is Attending Physician. kb 21:02 Sera Izquierdo, ALFONZO is Primary Nurse. ll2 21:34 Inserted saline lock: 22 gauge in left forearm, using aseptic technique. Blood ea collected. 21:47 Patient has correct armband on for positive identification. Call light in reach. Side ll2 rails up X 1. Pulse ox on. NIBP on. 23:27 IV discontinued, intact, bleeding controlled, No redness/swelling at site. Pressure ea dressing applied. 23:28 No provider procedures requiring assistance completed. ea Administered Medications: 21:35 Drug: Phenergan 12.5 mg Route: IVP; Site: left forearm; ea 22:02 Follow up: Response: No adverse reaction ll2 21:35 Drug: NS 0.9% 1000 ml Route: IV; Rate: 1000 ml; Site: left antecubital; ea 23:30 Follow up: IV Status: Completed infusion ll2 21:51 Drug: Phenergan 12.5 mg Route: IVP; Site: left forearm; ea 22:02 Follow up: Response: No adverse reaction ll2 22:02 Drug: Benadryl 12.5 mg Route: IVP; Site: left antecubital; ll2 22:02 Follow up: Response: No adverse reaction ll2 22:47 Drug: Zofran (Ondansetron) 4 mg Route: IVP; Site: left antecubital; ll2 23:10 Follow up: Response: No adverse reaction; Nausea is decreased ll2 Outcome: 23:22 Discharge ordered by . kb 23:29 Discharged to home ambulatory, with family. ea 23:29 Condition: stable 23:29 Discharge instructions given to patient, Instructed on discharge instructions, follow up and referral plans. medication usage, Demonstrated understanding of instructions, follow-up care, medications, Prescriptions given X 1. 23:29 Patient left the ED. ll2 Signatures: Christine Solares FNP-C FNP-CkSharlene Steward am2 Avis Madrid RN RN ea Mora Duenas RN RN ca1 Linscombe, Lacie, RN RN ll2
--- NOTE | 2020-09-05 23:23 | EDPHYS ---
Physician Documentation [facility] Name: Suraj Fuentes Age: 29 yrs Sex: Female : 1990 Arrival Date: 09/05/2020 Time: 20:35 Bed 4 Private MD: ED Physician Carl Urbano HPI: 09/05 21:47 This 29 yrs old Female presents to ER via Wheelchair with complaints of kb Nausea/Vomiting, +preg. 21:47 The patient presents to the emergency department with nausea and vomiting. The kb estimated gestational age is 8 weeks. course: care: at a clinic, Leakage of Fluid: none appreciated. Associated signs and symptoms: Pertinent positives: nausea, vomiting, Pertinent negatives: abdominal pain, vaginal bleeding, vaginal discharge. The patient has experienced similar episodes in the past. The patient has been recently seen by a physician:. Pt reports nausea and vomiting that started this morning. States she was at [facility] for these same symptoms, discharged and didn't have any nausea until today. Pt is taking Compazine, B vitamins and unisom for hyperemesis gravidarum. . TECHNOLOGY APPLICATIONS CONSULTANT: 20:51 LMP 06/08/2020 ca1 Historical: - Allergies: 20:51 Ibuprofen; ca1 20:51 ORANGES; ca1 - PMHx: 20:51 hyperemesis gravidum; ca1 - PSHx: 20:51 Appendectomy; ; ca1 - Immunization history:: Adult Immunizations up to date. - Social history:: Smoking status: Patient denies any tobacco usage or history of. ROS: 21:46 Constitutional: Negative for fever, chills, and weight loss, Cardiovascular: Negative kb for chest pain, palpitations, and edema, Respiratory: Negative for shortness of breath, cough, wheezing, and pleuritic chest pain, Back: Negative for injury and pain, MS/Extremity: Negative for injury and deformity, Skin: Negative for injury, rash, and discoloration, Neuro: Negative for headache, weakness, numbness, tingling, and seizure. 21:46 Abdomen/GI: Positive for nausea and vomiting, Negative for abdominal pain, diarrhea, constipation, abdominal cramps, abdominal distension, anorexia. Exam: 21:46 Constitutional: This is a well developed, well nourished patient who is awake, alert, kb and in no acute distress. Head/Face: Normocephalic, atraumatic. Chest/axilla: Normal chest wall appearance and motion. Nontender with no deformity. No lesions are appreciated. Cardiovascular: Regular rate and rhythm with a normal S1 and S2. No gallops, murmurs, or rubs. Normal PMI, no JVD. No pulse deficits. Respiratory: Lungs have equal breath sounds bilaterally, clear to auscultation and percussion. No rales, rhonchi or wheezes noted. No increased work of breathing, no retractions or nasal flaring. Abdomen/GI: Soft, non-tender, with normal bowel sounds. No distension or tympany. No guarding or rebound. No evidence of tenderness throughout. Back: No spinal tenderness. No costovertebral tenderness. Full range of motion. Skin: Warm, dry with normal turgor. Normal color with no rashes, no lesions, and no evidence of cellulitis. MS/ Extremity: Pulses equal, no cyanosis. Neurovascular intact. Full, normal range of motion. Neuro: Awake and alert, GCS 15, oriented to person, place, time, and situation. Cranial nerves II-XII grossly intact. Motor strength 5/5 in all extremities. Sensory grossly intact. Cerebellar exam normal. Normal gait. Vital Signs: 20:47 BP 122 / 97; Pulse 108; Resp 18 S; Temp 97.7(TE); Pulse Ox 99% on R/A; Weight 83.01 kg ca1 (R); Height 5 ft. 2 in. (157.48 cm) (R); 22:00 BP 151 / 97; Pulse 80; Resp 19; Pulse Ox 100% on R/A; ll2 23:00 BP 116 / 53; Pulse 76; Resp 14; Pulse Ox 98% on R/A; ll2 20:47 Body Mass Index 33.47 (83.01 kg, 157.48 cm) ca1 MDM: 20:54 Patient medically screened. kb 21:46 Data reviewed: vital signs, nurses notes. Data interpreted: Pulse oximetry: on room air kb is 99 %. Interpretation: normal. Counseling: I had a detailed discussion with the patient and/or guardian regarding: the historical points, exam findings, and any diagnostic results supporting the discharge/admit diagnosis, lab results, the need for outpatient follow up, an OB/Gyne specialist, to return to the emergency department if symptoms worsen or persist or if there are any questions or concerns that arise at home. 09/05 20:56 Order name: CBC with Diff; Complete Time: 22:01 kb 09/05 20:56 Order name: Basic Metabolic Panel; Complete Time: 22:03 kb 09/05 20:56 Order name: IV Start; Complete Time: 21:35 kb Administered Medications: 21:35 Drug: Phenergan 12.5 mg Route: IVP; Site: left forearm; ea 22:02 Follow up: Response: No adverse reaction ll2 21:35 Drug: NS 0.9% 1000 ml Route: IV; Rate: 1000 ml; Site: left antecubital; ea 23:30 Follow up: IV Status: Completed infusion ll2 21:51 Drug: Phenergan 12.5 mg Route: IVP; Site: left forearm; ea 22:02 Follow up: Response: No adverse reaction ll2 22:02 Drug: Benadryl 12.5 mg Route: IVP; Site: left antecubital; ll2 22:02 Follow up: Response: No adverse reaction ll2 22:47 Drug: Zofran (Ondansetron) 4 mg Route: IVP; Site: left antecubital; ll2 23:10 Follow up: Response: No adverse reaction; Nausea is decreased ll2 Disposition: 09/06 05:37 Co-signature as Attending Physician, Carl Urbano MD. [email or web address] Disposition: 09/05/20 23:22 Discharged to Home. Impression: Mild hyperemesis gravidarum. - Condition is Stable. - Discharge Instructions: Hyperemesis Gravidarum. - Prescriptions for Diclegis 10- 10 mg Oral tablet,delayed release (DR/EC) - take 1 tablet by ORAL route once daily; 10 tablet. - Medication Reconciliation Form, Thank You Letter, Antibiotic Education, Prescription Opioid Use form. - Follow up: Emergency Department; When: As needed; Reason: Worsening of condition. Follow up: Private Physician; When: 2 - 3 days; Reason: Recheck today's complaints, Continuance of care, Re-evaluation by your physician. Signatures: Dispatcher [employer] Christine Singh, Avis Wilde RN Mora Jules ea RN RN ca1 Sera Izquierdo RN RN ll2 Carl Urbano MD MD [email or web address] Corrections: (The following items were deleted from the chart) 09/05 23:29 23:22 09/05/2020 23:22 Discharged to Home. Impression: Mild hyperemesis gravidarum. ll2 Condition is Stable. Forms are Medication Reconciliation Form, Thank You Letter, Antibiotic Education, Prescription Opioid Use. Follow up: Emergency Department; When: As needed; Reason: Worsening of condition. Follow up: Private Physician; When: 2 - 3 days; Reason: Recheck today's complaints, Continuance of care, Re-evaluation by your physician. kb
[2020-09-06 00:21] VITALS: BP 116/53; O2SAT 98
[2020-09-06 00:25] VITALS: TEMP 97.7
== END 2020-09-05 23:29 | disposition home or self-care (01) ==
LOC: ER 20:34
DX: O21.0 Mild hyperemesis gravidarum (principal); Z3A.08 8 weeks gestation of pregnancy; Z88.6 Allergy status to analgesic agent; Z91.018 Allergy to other foods
CPT/HCPCS: 96361; 85025; 80048; 36415; 96375; 96374; 99284; J2550; J1200; J7030; J2405

== ENCOUNTER 2020-09-06 14:55 | Emergency (ER) | payer MEDICAID, OTHER ==
--- OUTSIDE RECORDS SUMMARY | 2020-09-06 14:57 | XMS REPORT | Continuity of Care Document ---
:1990 Author Organization [facility] t Address [address] [place] [address] Care Team Providers Name Role Phone Lauren Thomas Attending Clinician Shital FRANKLIN M Attending Clinician Tiffany FRANKLIN Attending Clinician Merna Mulligan MD Attending Clinician Ultrasound Attending Clinician Unavailable Shital FRANKLIN M Admitting Clinician Problems This patient has no known problems. Allergies, Adverse Reactions, Alerts This patient has no known allergies or adverse reactions. Medications This patient has no known medications. Procedures This patient has no known procedures. Encounters Start End Encounter Admission Attending Care Care Encounter Source Date/Time Date/Time Type Type Clinicians Facility Department ID 2020-09-06 2020-09-06 Telephone AMBAR Fernandez [id number] 00:00:00 00:00:00 Cornelius Aguilar SUPERVISOR CD AREA [id number] [facility] [id number] MATERNAL [id number] & CHILD [address] [place] [address] 2020-08-30 2020-09-01 [facility] JAYCE [id number] 21:50:00 13:00:00 Encounter Jad HINSON [id number] [facility] [id number] 2020-08-28 2020-08-29 [id number] 20:57:00 03:37:00 [facility] Leann [facility] [id number] 2020-08-26 2020-08-26 [facility] [id number] 00:00:00 00:00:00 Roshunda R SUPERVISOR CD AREA [id number] [facility] [id number] MATERNAL [id number] & CHILD 107 [facility] 2020-08-24 2020-08-24 Splicing Technician Ultrasound, [facility] [id number] 13:29:59 13:59:59 Visit [facility] SUPERVISOR CD AREA [id number] REGIONAL [id number] MATERNAL [id number] & CHILD 369 [facility] 2020-08-24 2020-08-24 [facility] [id number] 00:00:00 00:00:00 Roshunda R SUPERVISOR CD AREA [id number] REGIONAL [id number] MATERNAL [id number] & CHILD 107 [facility] 2020-08-17 2020-08-17 [facility] [id number] 00:00:00 00:00:00 Roshunda R SUPERVISOR CD AREA [id number] REGIONAL [id number] MATERNAL [id number] & CHILD 107 [facility] 2020-08-04 2020-08-04 [facility] [id number] 00:00:00 00:00:00 Roshunda R SUPERVISOR CD AREA [id number] REGIONAL [id number] MATERNAL [id number] & CHILD 107 [facility] 2020-08-03 2020-08-03 Telephone AMBAR Fernandez [id number] 00:00:00 00:00:00 Cornelius Aguilar SUPERVISOR CD AREA [id number] [facility] [id number] MATERNAL [id number] & CHILD 107 [facility] Results This patient has no known results.
--- OUTSIDE RECORDS SUMMARY | 2020-09-06 15:02 | XMS REPORT | Summary of Care ---
:1990 Author Organization [facility] Address [address] [place] [address] Care Team Providers Name Role Phone Manjit E Insurance [employer] Lauren Fernandez [facility] Primary Care Provider Reason for Visit Reason Comments Assessment wanting to terminate pregnan cy Encounter Details Date Type Department Care Team Description 08/26/2020 Telephone [facility]- Cornelius Fernandez, As sessment (wanting to [facility] terminate ) [address] [facility] [address] [place] [address] [place], [place] [phone] Allergies Active Allergy Reactions Severity Noted Date Comments Ibuprofen Hives 04/15/2014 [place] Hives 04/15/2014 Sodium Citrate (Bulk) Nausea and/or Vomiting 9 documented as of this encounter (statuses as of 08/26/2020) Medications Medication Sig Dispensed Refills Start Date End Date Status ondansetron HCl Take by mouth. 0 Active (ZOFRAN ORAL) vit Take 1 Packet by 30 Each 6 08/03/2020 Active 34-eyzc-sqzkg-dha mouth daily. 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 Workplace Relations Adviser Utility Encounter for IUD removal and reinsertion [...] management 01/25/2015 05/20/2018 Overview: ICD10 Diagnosis Term Workplace Relations Adviser Utility Breast tenderness in female 01/25/2015 05/20/2018 Not immune to rubella 04/16/2014 06/04/2016 Overview: ICD10 Diagnosis Term Workplace Relations Adviser Utility documented as of this encounter (statuses as of 08/26/2020) Immunizations Name Administration Dates Next Due HPV9 06/04/2016 MMR 12/20/2018 (Deferred: - not available f [facility]) TDAP 04/06/2015 TDAP (ADACEL) VACCINE [...] 08/31/2020 Routine Visit OB Satellites Lauren Fernandez, AUTOMOTIVE SERVICES MANAGER [address] [id number] 15 [phone] Health Maintenance Due Date Last Done Comments [...] Address T ype Group Dates ASIA BETANCOURT [id number] 2018-Anupama [address] [facility] [place] [id number] MANAGED [place], [place] documented as of this encounter Advance Directives Type Date Recorded 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
--- OUTSIDE RECORDS SUMMARY | 2020-09-06 15:03 | XMS REPORT | Summary of Care ---
:1990 Author Organization [facility] - Health Address [address] [place] [address] Care Team Providers Name Role Phone Gamal Saravia Insurance Hmo Lauren Fernandez Primary Care Provider Reason for Referral (Routine) Status Reason Specialty Diagnoses / Referred By Referred To Procedures Contact Contact New Request OG-OBSTETRICS & Diagnoses Nausea and vomiting during Aufderheide, Leann GYNECOLOGY Procedures Discharge Follow-Up: Specialty Service OG-OBSTETRICS & GYNECOLOGY; 3-5 Days MD Merna [address] [place] [address]. [place] [address] Reason for Visit Reason Comments Abdominal Pain Vomiting Auth/Cert Status Reason Specialty Diagnoses / Referred By Referred To Procedures Contact Contact Emergency Medicine [facility] rgency Dept [address] [place] [phone] Fax: Encounter Details Date Type Department Care Team Description 08/28/2020 - Emergency [facility] Monika Allen MD [address] [place] [phone] Abdominal pain during in first trimester (Primary Dx); 08/29/2020 Department Anthonyerjessi, Leann Bauman MD [address] [place] [phone] Nausea and vomiting during [address] [place] [phone] Allergies Active Allergy Reactions Severity Noted Date Comments Ibuprofen Hives 04/15/2014 [place] Hives 04/15/2014 Sodium Citrate (Bulk) Nausea and/or Vomiting 9 documented as of this encounter (statuses as of 08/29/2020) Medications Medication Sig Dispensed Refills Start Date End Date Status ondansetron HCl Take by mouth. 0 Active (ZOFRAN ORAL) vit Take 1 Packet by 30 Each 6 08/03/2020 Active 93-tcvu-sezvp-dha mouth daily. 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 SCHEDULE AN APPOINTMENT ONLINE AT WWW.[facility] 2. OR CALL THE [facility] AT OR 3. OR CALL YOUR [facility] PHYSICIAN'S OFFICE DIRECTLY IF YOU ARE ALREADY AN ESTABLISHED [facility] PATIENT. RETURN TO ER FOR WORSENING OF SYMPTOMS. AttachmentsThe following attachments cannot be sent through Care Everywhere. : Your First Trimester Changes (Hebrew)Severe Morning Sickness (Hyperemesis Gravidarum) (Hebrew)documented in this encounter ED Notes Arsalan Salazar [...] site, catheter intact. Patient ambulatory to the [facility] accompanied by visitors x2, in possession of [...] - 08/28/2020 11:47 PM CDT[facility] Nurse Note - Ada Bush [...] cough, SOB. . Patient was seen in [place] for same complaint, patient's s/o states "they [...] 08/31/2020 Routine Visit OB Satellites Lauren Fernandez, HAND BASEBALL SEWER [address] [address] 15 [phone] Health Maintenance Due Date Last Done Comments [...] Abdominal pain Re sults for this PANEL (72581) CD[facility] (ALB,T.PRO,BILI first trimester the resul ts T,BU/BC,ALT,AST,ALK section. PHOS) documented in this encounter Results Urinalysis (08/29/2020 12:26 AM CDT) Pathologist Sig nature APPEARANCE Clear Clear [facility] COLOR Trudi (A) Yellow [facility] PH 7.0 4.8 - 8.0 [facility] SP GRAVITY 1.030 1.003 - 1.030 [facility] GLU U QUAL Normal Normal [facility] BLOOD Negative Negative [facility] KETONES 80 mg/dL (A) Negative [facility] PROTEIN 30 mg/dL (A) Negative [facility] UROBILIN 2.0 mg/dL (A) Normal [facility] BILIRUBIN Negative Negative [facility] NITRITE Negative Negative [facility] LEUK HO Negative Negative [facility] RBC/HPF 3 0 - 3 HPF [facility] WBC/HPF 3 0 - 5 HPF [facility] BACTERIA Negative Negative [facility] MUCOUS Marked (A) Negative LPF [facility] SQ EPITH 4 (H) <=2 HPF [facility] Specimen Urine - URINE, CLEAN CATCH Performing Organization Address City/State/Zipcode Phone Number [facility] CLIA: [id number] [place], [place] [address] [address] [place], [place] [address]vd TOTAL BHCG (QUANTITATIVE) (08/28/2020 10:08 PM CDT) Pathologist Sig nature BETA HCG 140,720.00 Non- female [facility] and male patients: SERVICES <5 mIU/mL Specimen Blood - VENOUS Narrative Performed At [facility] Gestational Age Rang e (mIU/mL) 1-10 Weeks 4 [phone] 11-15 Weeks 11 [phone] 16-22 Weeks 74 [phone] 23-40 Weeks 15 [phone] Biotin has been reported to cause a negative bias, int erpret results relative to patient's use of biotin. Performing Organization Address City/[facility] Phone Number [facility] CLIA: [id number] [place] [address] [place] [address] Hepatic Function Panel (ALB, T.PRO, BILI T, BU/BC, ALT, AST, ALK PHOS) (08/28/2020 10:08 PM CDT) Pathologist Sig nature TOTAL BILI 0.7 0.1 - 1.1 mg/dL [facility] BILI UNCON 0.9 0.1 - 1.1 mg/dL [facility] BILI CONJ 0.0 0.0 - 0.3 mg/dL [facility] T PROTEIN 6.8 6.3 - 8.2 g/dL [facility] ALBUMIN 4.1 3.5 - 5.0 g/dL [facility] ALK PHOS 56 34 - 122 U/L [facility] ALTv 21 5 - 35 U/L [facility] AST(SGOT) 20 13 - 40 U/L [facility] Specimen Blood - VENOUS Performing Organization Address City/[facility]/Zipcode Phone Number [facility] CLIA: [id number] [place] [id number] [place] [address] Basic Metabolic Panel (NA, K, CL, CO2, GLUCOSE, BUN, CREATININE, CA) (08/28/2020 10:08 PM CDT) NA 139 135 - 145 [facility] mmol/L SERVICES K 3.4 (L) 3.5 - 5.0 [facility] mmol/L SERVICES CL 108 98 - 108 mmol/L [facility] CO2 TOTAL 21 (L) 23 - 31 mmol/L [facility] AGAP 10 2 - 16 [facility] BUN 7 7 - 23 mg/dL [facility] GLUCOSE 99 70 - 110 mg/dL [facility] CREATININE 0.49 (L) 0.50 - 1.04 [facility] mg/dL SERVICES CALCIUM 9.0 8.6 - 10.6 [facility] mg/dL SERVICES eGFR Calculation 149.3 mL/min/1.73m2 [facility] (Non- SERVICES Kenyan) eGFR Calculation 181.0 mL/min/1.73m2 [facility] () SERVICES Specimen Blood - VENOUS Narrative Performed At Association of Glomerular Filtration Rate (GFR) and St aging [facility] SERVICES of Kidney Disease* + + [...] . Performing Organization Address City/State/Zipcode Phone Number [facility] CLIA: [id number] [place] [address] [place] [address] CBC with Differential (08/28/2020 10:08 PM CDT) Pathologist Sig nature WBC 8.57 4.30 - 11.10 [facility] 10*3/L SERVICES RBC 4.62 3.93 - 5.25 [facility] 10*6/L SERVICES HGB 14.5 11.6 - 15.0 [facility] g/dL SERVICES HCT 40.7 35.7 - 45.2 % [facility] MCV 88.1 80.6 - 95.5 fL [facility] MCH 31.4 25.9 - 32.8 pg [facility] MCHC 35.6 (H) 31.6 - 35.1 [facility] g/dL SERVICES RDW-SD 38.5 (L) 39.0 - 49.9 fL [facility] RDW-CV 12.0 12.0 - 15.5 % [facility] PLT 187 166 - 358 [facility] 10*3/L SERVICES MPV 9.8 9.5 - 12.9 fL [facility] NRBC/100 WBC 0.0 0.0 - [...] VENOUS Performing Organization Address City/State/Zipcode Phone Number [facility] CLIA: [id number] [place] [address] [place] [address] documented in this encounter Visit Diagnoses Diagnosis [...] / Subscriber ID Effective Phone Address T [facility] Dates ASIA BETANCOURT [id number] 2018-Anupama [employer] [facility] [place] [id number] MA[place]ED MEDICA[place] documented as of this encounter Advance Directives Type Date Recorded Patient Orthopaedic Technologist Explanati on Advance Directives and Living Will Power of Crm System Administrator Name Relationship Healthcare Agent Relationship Co mmunication Floyd Brown Father Health Care Agent Preet Alexx Other Health Care Agent [place] Gina Spouse First [facility] Care Agent (Mobile)
--- OUTSIDE RECORDS SUMMARY | 2020-09-06 15:04 | XMS REPORT | Summary of Care ---
:1990 Author Organization [facility] Address [address] [place] [address] Care Team Providers Name Role Phone Gamal Saravia Insurance Hmo Lauren Fernandez COMMERCIAL [employer] Primary Care Provider Reason for Visit Reason Comments Assessment vomit Encounter Details Date Type Department Care Team Description 09/06/2020 Telephone [facility]- Cornelius Fernandez, As sessment (vomit) [facility] [address] [facility] [address] [place] [address] [place] [address] [phone] Allergies Active Allergy Reactions Severity Noted Date Comments Ibuprofen Hives 04/15/2014 [place] Hives 04/15/2014 Sodium Citrate (Bulk) Nausea and/or Vomiting 9 documented as of this encounter (statuses as of 09/06/2020) Medications Medication Sig Dispensed Refills Start Date End Date Status vit Take 1 Packet by 30 Each 6 08/03/2020 Active 37-oqsr-lgbqc-dha mouth daily. (SELECT-OB + DHA) 29 mg iron-1 mg -250 mg combo packIndications: Supervision of high risk in first trimester pyridoxine, VITAMIN Take 1 tablet by 120 tablet 1 09/01/2020 1 Active B-6, 25 mg mouth every 6 0 tabletIndications: (six) hours for 42 Hyperemesis gravidarum days. doxylamine 25 mg Take 1 tablet by 120 tablet 1 09/01/202009/25 Active tabletIndications: mouth every 6 0 Hyperemesis gravidarum (six) hours for 42 days. proCHLORperazine 10 mg Take 1 tablet by 20 tablet 0 09/01/2020 Active tabletIndications: mouth every 6 Hyperemesis gravidarum (six) hours as needed (for nausea and vomiting unresponsive to doxylamine/pyridox ine). documented as of this encounter (statuses as of 09/06/2020) Active Problems Problem Noted Date Hyperemesis gravidarum [...] Obesity in 01/25/2015 Overview: ICD10 Diagnosis Term Radio Host Utility Encounter for IUD removal and reinsertion 01/18/2015 ASCUS on Pap smear 04/15/2014 Estimated Date of Delivery Comments Yes 04/11/2021 Based on Ultrasound, FHT: 127, Transverse Presentation, Placen ta Too early to evaulate documented as of this encounter (statuses as of 09/06/2020) Resolved Problems Problem Noted Date Resolved Date 37 weeks gestation of 12/18/2018 01/08/20 19 Luis Alfredo Jolley's contraction 12/12/2018 01/08/2019 Abnormal maternal glucose tolerance, [...] management 01/25/2015 05/20/2018 Overview: ICD10 Diagnosis Term Radio Host Utility Breast tenderness in female 01/25/2015 05/20/2018 Not immune to rubella 04/16/2014 06/04/2016 Overview: ICD10 Diagnosis Term Radio Host Utility documented as of this encounter (statuses as of 09/06/2020) Immunizations Name Administration Dates Next Due HPV9 06/04/2016 MMR 12/20/2018 (Deferred: - not available f [facility]) TDAP 04/06/2015 TDAP (ADACEL) [...] Telephone Encounter - Cornelius Fernandez FNP - 09/06/2020 2:24 PM CDTPlease advise, I can to given any information concerning . Does patient seek medication for nausea and vomiting? elephone Encounter - Alfreda Vaughn LVN - 09/06/2020 1:55 PM ALMATSuraj Mabry Gina is a 29 year old female Patient stated she [facility] to [facility] for N/V and has received fluids and PO medication.Stated she is still having n/v and medication is not helping. Patient stated she has tried to get anabortion but she has not been able to find a clinic. Informed patient message would be routed to provider for recommendations, ER warnings given, verbalized understanding. elephone Encounter - Janell Lynne - 09/06/2020 1:05 PM Annalee Mabry Gina is a 29 year old female Patient requesting to speak with provider, vomiting has gotten worse although and still vomiting not able to keep food or water and has been loosing weight , please call [phone] (home) documented in this encounter Plan of Treatment Date Type Specialty Care Team Description 09/08/2020 Routine Visit OB Satellites Lauren Fernandez FNP [address] [address] [phone] Health Maintenance Due Date Last Done Comments INFLUENZA VACCINE (#1) 2020 PAP SMEAR 11/27/2020 [...] Address T e Group Dates ASIA BETANCOURT [id number] 2018-Anupama [address] Medic [place] [phone] [place]ED MEDICA[place] documented as of this encounter Advance Directives Type Date Recorded 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
--- OUTSIDE RECORDS SUMMARY | 2020-09-06 15:04 | XMS REPORT | Summary of Care ---
:1990 Author Organization [facility] - [facility] Address [address] [place] [address] Care Team Providers Name Role Phone Gamal Saravia Insurance Hmo Lauren Fernandez Primary Care Provider Reason for Referral (Routine) Status Reason Specialty Diagnoses / Referred By Referred To Procedures Contact Contact New Request Diagnoses Hyperemesis gravidarum Marisel Galvan, Procedures Discharge Follow-Up: Wine Steward/Stewardess Lorena FRANKLIN [address] [place], [place] [id number] Reason for Visit Auth/Cert Status Reason Specialty Diagnoses / Procedures Referred By Lauren marquez To Contact Contact Obstetrics Diagnoses 7wks IUP hyperemesis J10c [address] [place] [phone] Phone: Fax: Encounter Details Date Type Department Care Team Description 08/30/2020 - Hospital Encounter Obstetrics and Jad Isaacs ea and vomiting 09/01/2020 Gynecology (J10C) MD Tyler during [address] [place] [id number] [phone] Allergies Active Allergy Reactions Severity Noted Date Comments Ibuprofen Hives 04/15/2014 Bozrah Hives 04/15/2014 Sodium Citrate (Bulk) Nausea and/or Vomiting 9 documented as of this encounter (statuses as of 09/01/2020) Medications Medication Sig Dispensed Refills Start End Date Status Date vit Take 1 Packet by 30 Each 6 Active 22-yhvs-slnuf-dha mouth daily. 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 Encounter for IUD removal and reinsertion 01/18/2015 ASCUS on Pap smear 04/15/2014 Estimated Date of Delivery Comments Yes 04/11/2021 Based on Ultrasound, FHT: 127, Transverse Presentation, Placen ta Too early to evaulate documented as of this encounter (statuses as of 09/01/2020) Resolved Problems Problem Noted Date Resolved Date 37 weeks gestation of 12/18/2018 01/08/20 [address] [place] Hick's contraction 12/12/2018 01/08/2019 Abnormal maternal glucose [...] management 01/25/2015 05/20/2018 Overview: ICD10 Diagnosis Term Grain Scooper Utility Breast tenderness in female 01/25/2015 05/20/2018 Not immune to rubella 04/16/2014 06/04/2016 Overview: ICD10 Diagnosis Term 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 06, NOON, 6pm, [place] AttachmentsThe following attachments cannot be sent through Care Everywhere. Diet, [place] (Adult) (Cymraes)documented in this encounter Progress Notes Major Velasquez [...] mL IV piggyback 25 mg IV Piggyback [id number] mg at 09/01/20 0552 pyridoxine (VITAMIN B-6) [...] 08/28/2020 21 No results found for: URICACID, [id number] No results found for: LDH Assessment/Plan: Suraj [...] tolerate PO for over 2 days - [place] ED Course: s/p 2L NS bolus, IV 4mg zofran, 12.5 benadryl, 20mg Pepcid, 12.5 phenergan, refused second phenergan dose so given Reglan 10mg, 20mEq KCLrepletion - OSH labs remarkable for K 3.2, Cr 0.72, LFT WNL, lipase 59, Udip with 2+ ketone -Patient reports severe nausea, dry heaving noted in triage - Upon transfer to [facility], P 80s, BP 120/60s - Repeat UA [...] presentation at 37w - Documented LTCS at [facility] - Desires possible Hx PTD - G1 at 34w - G2 at 36w COVID-19 SCREEN: Lab Results Component Value Date/Time COVID19 Not Detected 08/30/2020 11:37 PM Antepartum course reviewed - seronegative, Rnot immune, VZVnot immune,A positive/IATnegative, GBSunk, PapASCUS 11/2017, neg HRHPV, needs repeat cotesting in 3 years - H/H, plt:14.5/ 40.7,187on 08/28/20 [facility] [id number] bpm via M mode on admission BSUS Major Velasquez MD 09/01/2020 Associated attestation - Marisel Galvan MD - 09/01/2020 10:40 AM CDT I was rounding [facility] faculty for this patient and was involved [...] presentation at 37w - Documented LTCS at [facility] - Desires possible Hx PTD - G1 at 34w - G2 at 36w COVID-19 SCREEN: Lab Results Component Value Date/Time COVID19 Not Detected 08/30/2020 11:37 PM Antepartum course reviewed - sero negative, Rnot immune, VZVnot immune, A positive/IAT negative, GBS unk, Pap ASCUS 11/2017, negHRHPV, needs repeat cotesting in 3 years - H/H, plt: 14.5 / 40.7, 187 on 08/28/20 - [facility] - FHT 171-178 bpm via M mode on admission BSUS Major Velasquez MD - 08/31/2020 1:15 PM CDTJamiee Luly Fuentes [id number] 08/31/2020 1:15 PM Post-Rounds: - daily BMP [...] Physician: Cornelius Fernandez CHIEF COMPLAINT Transfer from [facility] ED HISTORY OF PRESENT ILLNESS Suraj Fuentes is a 29 year old at 8w0d who was transferred from [facility] ED for nausea and vomiting during with [...] for over 2 days. She went to [place] ED earlier this week (3-4 days ago), then presented to [facility] ED Saturday night.She was given 1L bolus, IV zofran, IV phenergan, and reglan, PO challenged with water/crackers, thensent home with renewed eRx vitamin B6. Reports PO zofran and Reglan not helping right now, therefore went to [facility] ED earlier this afternoon. [facility] ED Course: Afebrile, Pulse 71-86, BP 110-130/60-80s [...] Manny Gray; Location: Labor and Delivery - [place] Past Medical History: Diagnosis Date Abnormal maternal [...] Oral Q6H Allergies and drug reactions: Ibuprofen, Bozrah, and Sodium citrate (bulk) HOME MEDICATIONS Medications [...] (ZOFRAN ORAL) Take by mouth. 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 Present on Admission: 8 weeks gestation of Obesity in Multiparity Maternal varicella, non-immune Rubella non-immune status, antepartum Atypical squamous cells of undetermined significance (ASCUS) on Papanicolaou smear of cervix Desires (vaginal after ) trial Previous section complicating Nausea and vomiting during Hyperemesis gravidarum before end of 22 week gestation with dehydration ASSESSMENT AND PLAN Suraj Zuritasandy Fuentes is a 29 year old [...] tolerate PO for over 2 days - [place] ED Course: s/p 2L NS bolus, IV 4mg zofran, 12.5 benadryl, 20mg Pepcid, 12.5 phenergan, refused second phenergan dose so given Reglan 10mg, 20mEq KCL repletion - OSH labs remarkable for K 3.2, Cr 0.72, LFT WNL, lipase 59, Udip with 2+ ketone - Patient reports severe nausea, dry heaving noted at bedside - Upon transfer to [facility], P 80s, BP 120/60s - Repeat UA [...] presentation at 37w - Documented LTCS at [facility] - Desires possible Hx PTD - G1 at 34w - G2 at 36w COVID-19 SCREEN: Lab Results Component Value Date/Time COVID19 Not Detected 08/30/2020 11:37 PM Antepartum course reviewed - sero negative, Rnot immune, VZVnot immune, A positive/IAT negative, GBS unk, Pap ASCUS 11/2017, negHRHPV, needs repeat cotesting in 3 years - H/H, plt: 14.5 / 40.7, 187 on [facility] 171-178 bpm via M [...] - 08/31/2020 5:02 PM CDTFood Allergy and Cultural/Jain Food Preferences Consult Note: Spoke with patient's nurse today over the phone. Per nurse, patient with food allergy to oranges. Per allergy list patient with hives as reported reaction. Please see confirmed food allergy below. Confirmed Food Allergy: 1. Bozrah Reaction:Hives Confirmed Cultural Food Preferences: 1. None Confirmed Jain Food Preferences: 1. None Kary Coppola MS, RD, LD Clinical Dietitian RD Office: [phone] documented in this encounter Miscellaneous Notes Care [...] of seizure activity 09/01/2020 0016 by Queenie Ni RN Outcome: [...] 09/08/2020 Routine Visit OB Satellites Lauren Fernandez, TAPE LIBRARIAN [address] [phone] Name Type Priority Associated Diagnoses Order S [...] AM CDT) NA 135 135 - 145 [facility] mmol/L SERVICES K 3.6 3.5 - 5.0 [facility] mmol/L SERVICES CL 106 98 - 108 mmol/L [facility] SERVICES CO2 TOTAL 21 (L) 23 - 31 mmol/L [facility] SERVICES AGAP 8 2 - 16 [facility] SERVICES BUN 3 (L) 7 - 23 mg/dL [facility] SERVICES GLUCOSE 106 70 - 110 mg/dL [facility] SERVICES CREATININE 0.46 (L) 0.50 - 1.04 [facility] mg/dL SERVICES CALCIUM 8.6 8.6 - 10.6 [facility] mg/dL SERVICES eGFR Calculation 160.6 mL/min/1.73m2 [facility] (Non- SERVICES Moroccan) eGFR Calculation 194.7 mL/min/1.73m2 [facility] () SERVICES Specimen Blood - VENOUS Narrative Performed At Association of Glomerular Filtration Rate (GFR) and St aging [facility] SERVICES of Kidney Disease* + + [...] in imaging tests) . Performing Organization Address City/[facility] Phone Number [facility] CLIA: [id number] [place], [place] [address] [address] [place] [address] URINALYSIS (08/31/2020 4:07 PM CDT) Pathologist Sig [...] - URINE, CLEAN CATCH Performing Organization Address [facility] Phone Number [facility] CLIA: [id number] [place] [address] [place] [address] Type and Screen - ONCE Routine (08/31/2020 12:23 AM CDT) Pathologist [facility] ABO & RH A POSITIVE LAB Comment: Performed at [facility] Laboratory Services - [facility] Blood Bank [address] [place] [address] Toll Free: [phone] CLIA No. [id number] IAT Negative LAB Comment: Performed at [facility] Laboratory Services - [facility] Blood Bank [address] [place] [address] Toll Free: [phone] CLIA No. [id number] Specimen Blood - VENOUS Performing Organization Address City/[facility]/[employer] Phone Number [facility] LAB BASIC METABOLIC PANEL (NA, K, CL, CO2, GLUCOSE, BUN, CREATININE, CA) (08/31/2020 12:17 AM CDT) [facility] NA 134 (L) 135 - 145 [facility] mmol/L SERVICES K 3.8 3.5 - 5.0 [facility] mmol/L SERVICES CL 104 98 - 108 mmol/L [facility] SERVICES CO2 TOTAL 22 (L) 23 - 31 mmol/L [facility] SERVICES AGAP 8 2 - 16 [facility] SERVICES BUN <2 (L) 7 - 23 mg/dL [facility] SERVICES GLUCOSE 87 70 - 110 mg/dL [facility] SERVICES CREATININE 0.50 0.50 - 1.04 [facility] mg/dL SERVICES CALCIUM 8.8 8.6 - 10.6 [facility] mg/dL SERVICES eGFR Calculation 145.9 mL/min/1.73m2 [facility] (Non- SERVICES Moroccan) eGFR Calculation 176.8 mL/min/1.73m2 [facility] () SERVICES Specimen Blood - VENOUS Narrative Performed At Association of Glomerular Filtration Rate (GFR) and St aging [facility] SERVICES of Kidney Disease* + + [...] in imaging tests) . Performing Organization Address City/[facility]/Zipcode Phone Number [facility] CLIA: [id number] [place] [address] [place] [address] COVID-19 (ID NOW RAPID TESTING) (08/30/2020 11:37 PM CDT) SARS-CoV-2 Rapid ID Not Detected Not Detected [facility] NOW SERVICES Specimen Swab - NASOPHARYNGEAL SWAB Narrative Performed At IA NOW COVID-19 Assay is an isothermal nucleic acid [facility] SERVICES amplification test intended for the qualitative detect ion of nucleic acid from SARS-CoV-2 viral RNA in nasopharynge al (MACHINE CHOCOLATE MOLDER) specimens. It is used under Emergency Use [...] indicated. Performing Organization Address City/State/Zipcode Phone Number [facility] CLIA: [id number] [place] [address] [phone] [address] [facility] URINALYSIS (08/30/2020 10:44 PM CDT) Pathologist Sig nature APPEARANCE Clear Clear [facility] COLOR Yellow Yellow [facility] PH 7.0 4.8 - 8.0 [facility] SERVICES SP GRAVITY 1.012 1.003 - 1.030 [facility] SERVICES GLU U QUAL Normal Normal [facility] BLOOD Negative Negative [facility] KETONES 80 mg/dL (A) Negative [facility] PROTEIN Negative Negative [facility] UROBILIN Normal Normal [facility] BILIRUBIN Negative Negative [facility] NITRITE Negative Negative [facility] LEUK HO Negative Negative [facility] SERVICES RBC/HPF 2 0 - 3 HPF [facility] SERVICES WBC/HPF <1 0 - 5 HPF [facility] BACTERIA Negative Negative [facility] MUCOUS Slight (A) Negative LPF [facility] SERVICES SQ EPITH 1 <=2 HPF [facility] ASCORBIC ACID Negative [facility] SERVICES Specimen Urine - URINE, CLEAN CATCH Performing Organization Address City/State/Zipcode Phone Number [facility] CLIA: [id number] [place] [address] [place] [address] documented in this encounter Visit Diagnoses Diagnosis [...] mL/hr, 1,000 mL, Intravenous, ONCE, 1 dose, [facility] 08/30/20 at 2330, Routine potassium chloride 20 [...] Address T ype Group Dates ASIA BETANCOURT [id number] 2018-Anupama [address] [place] [id number] MANAGED MEDICAID [place], [place] documented as of this encounter Advance Directives Type Date Recorded Patient Operations Research Analyst Explanati on Advance Directives and Living Will Power of Vacuum Conditioner Operator Name Relationship Healthcare Agent Relationship Co mmunication Floyd Brown Father Health Care Agent Preet Coffey Other Health Care Agent [place] Gina Spouse [facility] Health Care Agent (Mobile)
[2020-09-06] MEDS ORDERED: PROMETHAZINE INJ 25 MG/ML AMP ONE (15:37)
[2020-09-06] MEDS ORDERED: ACETAMINOPHEN 500 MG TAB ONE ×2 (16:39→19:28)
[2020-09-06 17:41] LABS: Absolute Lymphocytes (CBC) 1.4 K/uL (0.7-4.9); Basophils % 0.5 % (0-1.3); Hematocrit 41.2 % (36.0-45.0); Lymphocytes % 16.2 % (15.3-44.8); MPV 8.3 fL (7.6-11.3); RBC Red Blood Cell Count 4.67 M/uL (3.86-4.86)
[2020-09-06] MEDS ORDERED: FAMOTIDINE 20 MG/2 ML VIAL IV ONE (17:59)
[2020-09-06] MEDS ORDERED: ONDANSETRON 4 MG/2 ML VIAL ONE ×2 (17:59→19:42)
[2020-09-06] MEDS ORDERED: DICYCLOMINE HCL 10 MG CAP ONE (17:59)
[2020-09-06] MEDS ORDERED: NA CHLORIDE 0.9% 1,000 ML ONE ×2 (17:59→19:01)
[2020-09-06] MEDS ORDERED: DIPHENHYDRAMINE 50 MG/ML VIAL ONE ×2 (17:59→19:42)
[2020-09-06] MEDS ORDERED: DICYCLOMINE HCL 20 MG/2 ML AMP IM ONE ×2 (18:00→19:12)
[2020-09-06 18:04] LABS: Urine Bacteria <20 /HPF (<20); Urine Culture Reflex Order NOT NEEDED; Urine Mucus HEAVY /HPF (NONE SEEN); Urine RBC NONE SEEN /HPF (NONE SEEN)
[2020-09-06 18:06] LABS: Urine Blood NEGATIVE (NEG); Urine Glucose NEGATIVE (NEG); Urine Protein 1+ (NEG); Urine Specific Gravity 1.025 (1.005-1.030); Urine pH 8.5 (5.0-7.0)
[2020-09-06 18:12] LABS: ALT/SGPT 22 U/L (12-78); AST/SGOT 15 U/L (15-37); Albumin 3.9 g/dL (3.4-5.0); Alkaline Phosphatase 55 U/L (45-117); BUN Blood Urea Nitrogen 7 mg/dL (7-18); Bicarbonate 22 mmol/L (21-32); Bilirubin Direct 0.1 mg/dL (0-0.2); Bilirubin Total 0.6 mg/dL (0.2-1.0); Glucose Level 103 mg/dL (74-106); Lipase 91 U/L (73-393); Potassium 3.7 mmol/L (3.5-5.1); Protein, Total 7.4 g/dL (6.4-8.2); Sodium Level 138 mmol/L (136-145)
--- NOTE | 2020-09-06 19:26 | ER ---
Nurse's Notes [facility] Name: Suraj Fuentes Age: 29 yrs Sex: Female : 1990 Arrival Date: 09/06/2020 Time: 14:56 Bed 15 Private MD: Diagnosis: related conditions, unspecified;Hyperemesis gravidarum with metabolic disturbance Presentation: 09/06 15:07 Chief complaint: Spouse and/or significant other states: "She is throwing up and having jd3 abdominal pain. last time she had this she was sent to [place].". Coronavirus screen: At this time, the client does not indicate any symptoms associated with coronavirus-19. Ebola Screen: Patient negative for fever greater than or equal to 101.5 degrees Fahrenheit, and additional compatible Ebola Virus Disease symptoms. Initial Sepsis Screen: Does the patient meet any 2 criteria? No. Patient's initial sepsis screen is negative. Does the patient have a suspected source of infection? No. Patient's initial sepsis screen is negative. Risk Assessment: Do you want to hurt yourself or someone else? Patient reports no desire to harm self or others. Onset of symptoms was September 06, 2020. 15:07 Method Of Arrival: Wheelchair jd3 15:07 Acuity: SHAW 3 jd3 STRATEGIC SOURCING MANAGER: 18:01 LMP 06/08/2020 jl7 Historical: - Allergies: 15:09 Ibuprofen; jd3 15:09 ORANGES; jd3 - Home Meds: 15:09 Phenergan Oral [Active]; jd3 - PMHx: 15:09 hyperemesis gravidum; jd3 - PSHx: 15:09 Appendectomy; ; jd3 - Immunization history:: Adult Immunizations up to date. - Social history:: Smoking status: Patient denies any tobacco usage or history of. Screenin:20 Abuse screen: Denies threats or abuse. Denies injuries from another. Nutritional ca1 screening: No deficits noted. Tuberculosis screening: No symptoms or risk factors identified. Fall Risk None identified. Assessment: 15:20 General: Appears in no apparent distress. uncomfortable, Behavior is crying. Pain: ca1 Complains of pain in abdomen Pain currently is 8 out of 10 on a pain scale. Pain began this morning. Neuro: Level of Consciousness is awake, alert, obeys commands, Oriented to person, place, time, situation. Cardiovascular: Heart tones S1 S2 present Capillary refill < 3 seconds Patient's skin is warm and dry. Respiratory: Airway is patent Respiratory effort is even, unlabored, Respiratory pattern is regular, symmetrical, Breath sounds are clear bilaterally. GI: Abdomen is round non-distended, Bowel sounds present X 4 quads. Abd is soft and non tender X 4 quads. Reports nausea, vomiting. : No signs and/or symptoms were reported regarding the genitourinary system. EENT: No signs and/or symptoms were reported regarding the EENT system. Derm: Skin is intact, is healthy with good turgor, Skin is pink, warm \\T\\ dry. Musculoskeletal: Circulation, motion, and sensation intact. Capillary refill < 3 seconds. 16:16 Reassessment: Patient appears in no apparent distress at this time. Patient and/or ca1 family updated on plan of care and expected duration. Pain level reassessed. Patient is alert, oriented x 3, equal unlabored respirations, skin warm/dry/pink. 17:10 Reassessment: Patient appears in no apparent distress at this time. Patient and/or ca1 family updated on plan of care and expected duration. Pain level reassessed. Patient is alert, oriented x 3, equal unlabored respirations, skin warm/dry/pink. 18:00 Reassessment: Patient appears in no apparent distress at this time. Patient and/or ca1 family updated on plan of care and expected duration. Pain level reassessed. Patient is alert, oriented x 3, equal unlabored respirations, skin warm/dry/pink. Vital Signs: 15:09 BP 117 / 89; Pulse 94; Resp 25 S; Temp 98.2(O); Pulse Ox 100% on R/A; Weight 83.01 kg jd3 (R); Height 5 ft. 3 in. (160.02 cm) (R); Pain 10/10; 18:19 BP 131 / 73; Pulse 68; Resp 17; Pulse Ox 99% ; jl7 19:40 BP 130 / 70; Pulse 69; Resp 18; Temp 98.1; Pulse Ox 100% on R/A; mg2 15:09 Body Mass Index 32.42 (83.01 kg, 160.02 cm) [facility] ED Course: 14:56 Patient arrived in ED. mr 15:09 Triage completed. jd3 15:09 Arm band placed on. jd3 15:16 Mora Duenas, ALFONZO is Primary Nurse. ca1 15:18 Inocencia Beatty FNP-C is PHCP. snw 15:19 Zane Herring MD is Attending Physician. snw 15:20 Patient has correct armband on for positive identification. Bed in low position. Call ca1 light in reach. Side rails up X2. Pulse ox on. NIBP on. Warm blanket given. 16:38 PHCP role handed off by Inocencia Beatty FNP-C cp 16:38 Pancho Pryor PA is PHCP. cp 17:30 Initial lab(s) drawn, by tx, sent to lab. Urine collected: clean catch specimen, jl7 cloudy, ham colored. Inserted saline lock: 20 gauge in right forearm, using aseptic technique. Blood collected. 17:53 Urine Microscopic Only Sent. dh4 19:46 No provider procedures requiring assistance completed. IV discontinued, intact, mg2 bleeding controlled, No redness/swelling at site. Pressure dressing applied. Administered Medications: 15:38 Drug: Phenergan 25 mg Route: IM; Site: right deltoid; ca1 19:45 Follow up: Response: No adverse reaction mg2 16:27 Not Given (Patient Refused): Tylenol 1000 mg PO once ca1 17:55 Drug: NS 0.9% 1000 ml Route: IV; Rate: 1 bolus; Site: right forearm; jl7 19:44 Follow up: Response: No adverse reaction; IV Status: Completed infusion; IV Intake: mg2 1000ml 17:55 Drug: Zofran (Ondansetron) 4 mg Route: IVP; Site: right forearm; jl7 19:00 Follow up: Response: No adverse reaction mg2 17:57 Drug: Benadryl 12.5 mg Route: IVP; Site: right forearm; jl7 19:00 Follow up: Response: No adverse reaction mg2 18:01 Drug: Pepcid 20 mg Route: IVP; Site: right forearm; jl7 19:00 Follow up: Response: No adverse reaction mg2 18:49 Drug: NS 0.9% 1000 ml Route: IV; Rate: 1 bolus; Site: right forearm; ca1 19:44 Follow up: Response: No adverse reaction; IV Status: Completed infusion; IV Intake: mg2 1000ml 19:03 Drug: Bentyl 20 mg Route: IM; Site: right gluteus; ca1 19:44 Follow up: Response: No adverse reaction mg2 19:17 Not Given (Patient Refused; pain free): Tylenol 1000 mg PO once mg2 19:35 Drug: Benadryl 12.5 mg Route: IVP; Site: right forearm; mg2 19:43 Follow up: Response: No adverse reaction; Medication administered at discharge. mg2 19:35 Drug: Zofran (Ondansetron) 4 mg Route: IVP; Site: right forearm; mg2 19:43 Follow up: Response: No adverse reaction; Medication administered at discharge. mg2 Intake: 19:44 IV: 1000ml; Total: 1000ml. mg2 19:44 IV: 1000ml; Total: 2000ml. mg2 Outcome: 19:25 Discharge ordered by MD. cp 19:46 Discharged to home via wheelchair, with family. mg2 19:46 Condition: stable 19:46 Discharge instructions given to patient, family, Instructed on discharge instructions, follow up and referral plans. medication usage, Demonstrated understanding of instructions, follow-up care, medications, Prescriptions given X 3. 19:46 Patient left the ED. mg2 Signatures: Inocencia Beatty, DISPATCH SPECIALIST-C DISPATCH SPECIALIST-Csnw Jazz Ruelas Pancho Pryor, Toni Ba cp RN RN jl7 Eladio Rivas RN RN jTien No RN RN mg2 Mora Duenas RN RN ca1 Daron Douglas 4 Corrections: (The following items were deleted from the chart) 15:13 15:09 Pulse 94bpm; Resp 25bpm; Spontaneous; Pulse Ox 100% RA; Temp 98.2F Oral; 83.01 kg jd3 Reported; Height 5 ft. 3 in. Reported; BMI: 32.4; Pain 09/03; jd3
--- NOTE | 2020-09-06 19:26 | EDPHYS ---
Physician Documentation [facility] Name: Suraj Fuentes Age: 29 yrs Sex: Female : 1990 Arrival Date: 09/06/2020 Time: 14:56 Bed 15 Private MD: ED Physician Zaen Herring HPI: 09/06 16:56 This 29 yrs old Female presents to ER via Wheelchair with complaints of cp Abdominal Pain, Vomiting. 16:56 The patient presents to the emergency department with abdominal pain, of the abdomen cp diffusely, nausea and vomiting, that started today, and is continuous, described as bilious. 16:56 Previous pregnancies: in previous pregnancies patient has had vaginal delivery. cp Associated signs and symptoms: Pertinent negatives: diarrhea, dysuria, fever, vaginal bleeding, vaginal discharge. The patient has experienced similar episodes in the past, multiple times. 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 - Social history:: Smoking status: Patient denies any tobacco usage or history of. ROS: 17:00 Constitutional: Positive for poor PO intake, Negative for body aches, chills, fever. cp 17:00 Eyes: Negative for injury, pain, redness, and discharge. cp 17:00 ENT: Negative for ear pain, sore throat, difficulty swallowing, difficulty handling secretions. 17:00 Cardiovascular: Negative for chest pain, palpitations. 17:00 Respiratory: Negative for cough, shortness of breath, wheezing. 17:00 Abdomen/GI: Positive for abdominal pain, nausea and vomiting, anorexia, Negative for diarrhea, constipation, hematemesis. 17:00 : Negative for urinary symptoms, flank pain. 17:00 Neuro: Negative for headache, weakness. 17:00 All other systems are negative. Exam: 17:05 Constitutional: The patient appears in no acute distress, alert, awake, non-toxic, well cp developed, well nourished, uncomfortable. 17:05 Head/Face: Normocephalic, atraumatic. cp 17:05 Eyes: Periorbital structures: appear normal, Conjunctiva: normal, no exudate, no injection, Sclera: no appreciated abnormality, Lids and lashes: appear normal, bilaterally. 17:05 ENT: External ear(s): are unremarkable, Nose: is normal, Posterior pharynx: Airway: no evidence of obstruction, patent. 17:05 Chest/axilla: Inspection: normal, Palpation: is normal, no crepitus, no tenderness. 17:05 Cardiovascular: Rate: normal, Rhythm: regular. 17:05 Respiratory: the patient does not display signs of respiratory distress, Respirations: normal, no use of accessory muscles, no retractions, labored breathing, is not present, Breath sounds: are clear throughout, no decreased breath sounds. 17:05 Abdomen/GI: Inspection: gravid appearance, is noted, Bowel sounds: active, all quadrants, Palpation: soft, in all quadrants, moderate abdominal tenderness, in all quadrants, rebound tenderness, is not appreciated, voluntary guarding, is not appreciated. Vital Signs: 15:09 BP 117 / 89; Pulse 94; Resp 25 S; Temp 98.2(O); Pulse Ox 100% on R/A; Weight 83.01 kg jd3 (R); Height 5 ft. 3 in. (160.02 cm) (R); Pain 10/10; 18:19 BP 131 / 73; Pulse 68; Resp 17; Pulse Ox 99% ; jl7 19:40 BP 130 / 70; Pulse 69; Resp 18; Temp 98.1; Pulse Ox 100% on R/A; mg2 15:09 Body Mass Index 32.42 (83.01 kg, 160.02 cm) jd3 MDM: 15:36 Patient medically screened. snw 18:00 Differential diagnosis: dehydration, electrolyte abnormality. cp 19:25 Data reviewed: vital signs, nurses notes, lab test result(s), and as a result, I will cp discharge patient. 19:25 Counseling: I had a detailed discussion with the patient and/or guardian regarding: the cp historical points, exam findings, and any diagnostic results supporting the discharge/admit diagnosis, lab results. Response to treatment: the patient's symptoms have markedly improved after treatment. ED course: VSS. Vomiting and pain resolved. Nausea markedly improved and patient tolerating po fluids. Will discharge to home for continued monitoring. 09/06 16:43 Order name: Urine Microscopic Only; Complete Time: 18:36 cp 09/06 18:36 Interpretation: Normal except: SQEPI 5-10. cp 09/06 17:18 Order name: Basic Metabolic Panel cp 09/06 17:18 Order name: CBC with Diff cp 09/06 17:18 Order name: Hepatic Function cp 09/06 17:18 Order name: Lipase; Complete Time: 18:36 cp 09/06 17:19 Order name: Basic Metabolic Panel; Complete Time: 18:36 EDMS 09/06 19:26 Interpretation: Normal except: CL 109. cp 09/06 17:19 Order name: CBC with Automated Diff; Complete Time: 18:36 EDMS 09/06 17:19 Order name: Liver (Hepatic) Function; Complete Time: 18:36 EDMS 09/06 18:00 Order name: Urine Dipstick--Ancillary (enter results); Complete Time: 18:36 bd 09/06 18:36 Interpretation: Normal except: UKET 4+; UPH 8.5; UPROT 1+. cp 09/06 18:00 Order name: Urine --Ancillary (enter results); Complete Time: 18:36 bd 09/06 16:43 Order name: PO challenge; Complete Time: 17:50 cp 09/06 16:43 Order name: Urine Dipstick-Ancillary (obtain specimen); Complete Time: 17:50 cp 09/06 17:18 Order name: IV Saline Lock; Complete Time: 17:50 cp 09/06 17:18 Order name: Labs collected and sent; Complete Time: 17:50 cp Administered Medications: 15:38 Drug: Phenergan 25 mg Route: IM; Site: right deltoid; ca1 19:45 Follow up: Response: No adverse reaction mg2 16:27 Not Given (Patient Refused): Tylenol 1000 mg PO once ca1 17:55 Drug: NS 0.9% 1000 ml Route: IV; Rate: 1 bolus; Site: right forearm; jl7 19:44 Follow up: Response: No adverse reaction; IV Status: Completed infusion; IV Intake: mg2 1000ml 17:55 Drug: Zofran (Ondansetron) 4 mg Route: IVP; Site: right forearm; jl7 19:00 Follow up: Response: No adverse reaction mg2 17:57 Drug: Benadryl 12.5 mg Route: IVP; Site: right forearm; jl7 19:00 Follow up: Response: No adverse reaction mg2 18:01 Drug: Pepcid 20 mg Route: IVP; Site: right forearm; jl7 19:00 Follow up: Response: No adverse reaction mg2 18:49 Drug: NS 0.9% 1000 ml Route: IV; Rate: 1 bolus; Site: right forearm; ca1 19:44 Follow up: Response: No adverse reaction; IV Status: Completed infusion; IV Intake: mg2 1000ml 19:03 Drug: Bentyl 20 mg Route: IM; Site: right gluteus; ca1 19:44 Follow up: Response: No adverse reaction mg2 19:17 Not Given (Patient Refused; pain free): Tylenol 1000 mg PO once mg2 19:35 Drug: Benadryl 12.5 mg Route: IVP; Site: right forearm; mg2 19:43 Follow up: Response: No adverse reaction; Medication administered at discharge. mg2 19:35 Drug: Zofran (Ondansetron) 4 mg Route: IVP; Site: right forearm; mg2 19:43 Follow up: Response: No adverse reaction; Medication administered at discharge. mg2 Disposition: 09/06/20 19:25 Discharged to Home. Impression: related conditions, unspecified, Hyperemesis gravidarum with metabolic disturbance. - Condition is Stable. - Discharge Instructions: Hyperemesis Gravidarum, Eating Plan for Hyperemesis Gravidarum. - Prescriptions for Bentyl 20 mg Oral Tablet - take 2 tablet by ORAL route every 6 hours As needed; 40 tablet. Phenergan 25 mg Rectal Suppository - insert 1 suppository by RECTAL route every 6 hours As needed; 12 suppository. promethazine 25 mg Oral Tablet - take 1 tablet by ORAL route every 6 hours As needed; 20 tablet. - Medication Reconciliation Form, Thank You Letter, Antibiotic Education, Prescription Opioid Use form. - Follow up: Private Physician; When: 1 - 2 days; Reason: Recheck today's complaints. - Problem is an ongoing problem. - Symptoms have improved. Addendum: 09/10/2020 06:59 Co-signature as Attending Physician, Zane Herring MD. r n Signatures: Dispatcher [employer] EDInocencia Roach FNP-C NUCLEAR WASTE MANAGEMENT ENGINEER-Csnw Zane Herring MD MD rn Pancho Pryor PA PA cp Toni Bryant RN RN jl7 Eladio Rivas RN RN jd3 Tien Juarez, RN RN mg2 Mora Duenas RN RN ca1 Corrections: (The following items were deleted from the chart) 09/06 19:46 19:25 09/06/2020 19:25 Discharged to Home. Impression: related conditions, mg2 unspecified; Hyperemesis gravidarum with metabolic disturbance. Condition is Stable. Forms are Medication Reconciliation Form, Thank You Letter, Antibiotic Education, Prescription Opioid Use. Follow up: Private Physician; When: 1 - 2 days; Reason: Recheck today's complaints. Problem is an ongoing problem. Symptoms have improved. cp
[2020-09-06 20:43] VITALS: BP 130/70; TEMP 98.1; O2SAT 100
== END 2020-09-06 19:46 | disposition home or self-care (01) ==
LOC: ER 14:55
DX: O21.1 Hyperemesis gravidarum with metabolic disturbance (principal); Z3A.12 12 weeks gestation of pregnancy; Z88.6 Allergy status to analgesic agent; Z91.018 Allergy to other foods
CPT/HCPCS: 96361; 85025; 80048; 36415; 81025; 80076; 83690; 96375; 96372; 96374; 99284; J2550; J0500; J1200 ×2; J7030 ×2; J2405 ×2; 81003; 81015

== ENCOUNTER 2020-09-07 19:58 | Emergency (ER) | payer OTHER ==
--- OUTSIDE RECORDS SUMMARY | 2020-09-07 20:00 | XMS REPORT | Continuity of Care Document ---
:1990 Author Organization [facility] t Address [address] [place] [address] Care Team Providers Name Role Phone Penelope Bledsoe Attending Clinician Lauren Thomas Attending Clinician Problems This patient has no known problems. Allergies, Adverse Reactions, Alerts This patient has no known allergies or adverse reactions. Medications This patient has no known medications. Procedures This patient has no known procedures. Encounters Start End Encounter Admission Attending Care Care Encounter Source Date/Time Date/Time Type Type Clinicians Facility Department ID 2020-09-07 2020-09-07 Emergency Mary Carmen Jacobs [facility] [id number] 14:28:00 15:15:00 Penelope Dee [id number] [place] [id number] [place] [id number] 2020-09-06 2020-09-06 Telephone AMBAR Fernandez [id number] 00:00:00 00:00:00 Cornelius Aguilar LICENSED APPRAISER [id number] [facility] [id number] MATERNAL [id number] & CHILD [address] [place] [address] Results This patient has no known results.
--- OUTSIDE RECORDS SUMMARY | 2020-09-07 20:05 | XMS REPORT | Summary of Care ---
:1990 Author Organization [facility] Address [address] [place] [address] Care Team Providers Name Role Phone Manjit E Insurance Hmo Lauren Fernandez [employer] Primary Care Provider Reason for Visit Reason Comments Assessment wanting to terminate pregnan cy Encounter Details Date Type Department Care Team Description 08/26/2020 Telephone [facility]- Cornelius Fernandez, As sessment (wanting to [facility] terminate ) [address] [facility] [address] [place] [address] [place], [place] [phone] [address] [phone] Allergies Active Allergy Reactions Severity Noted Date Comments Ibuprofen Hives 04/15/2014 Bent Hives 04/15/2014 Sodium Citrate (Bulk) Nausea and/or Vomiting 9 documented as of this encounter (statuses as of 08/26/2020) Medications Medication Sig Dispensed Refills Start Date End Date Status ondansetron HCl Take by mouth. 0 Active (ZOFRAN ORAL) vit Take 1 Packet by 30 Each 6 08/03/2020 Active 32-czap-ncust-dha mouth daily. 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 Electronic Wirer Utility Encounter for IUD removal and reinsertion [...] management 01/25/2015 05/20/2018 Overview: ICD10 Diagnosis Term Electronic Wirer Utility Breast tenderness in female 01/25/2015 05/20/2018 Not immune to rubella 04/16/2014 06/04/2016 Overview: ICD10 Diagnosis Term Electronic Wirer Utility documented as of this encounter (statuses as of 08/26/2020) Immunizations Name Administration Dates Next Due HPV9 06/04/2016 MMR 12/20/2018 (Deferred: - not available f [facility]) TDAP 04/06/2015 TDAP [...] 08/31/2020 Routine Visit OB Satellites Lauren Fernandez, SPINNERET CLEANER [address] [id number] 15 [phone] Health Maintenance Due Date Last Done Comments [...] Address T ype Group Dates ASIA BETANCOURT [id number] 2018-Anupama [address] Medic [place] [id number] MANAGED MEDICAID [place] documented as of this encounter Advance Directives Type Date Recorded Patient Director Translational Explanati on Advance Directives and Living Will Power of Dietary Aide Teacher Name Relationship Healthcare Agent Relationship Co mmunication Floyd Brown Father Health Care Agent Preet Coffey Other Health Care Agent [place] Fuentes Spouse First [facility] [phone] Agent (Mobile)
--- OUTSIDE RECORDS SUMMARY | 2020-09-07 20:05 | XMS REPORT | Summary of Care ---
:1990 Author Organization [facility] Address [address] [place] [address] Care Team Providers Name Role Phone Gamal Saravia Insurance Hmo Lauren Fernandez Primary Care Provider Reason for Referral (Routine) Status Reason Specialty Diagnoses / Referred By Referred To Procedures Contact Contact New Request OG-OBSTETRICS & Diagnoses Nausea and vomiting during Aufderheide, Leann GYNECOLOGY Procedures Discharge Follow-Up: Specialty Service OG-OBSTETRICS & GYNECOLOGY; 3-5 Days MD Merna [address] [place] [address]. [place] [address] Reason for Visit Reason Comments Abdominal Pain Vomiting Auth/Cert Status Reason Specialty Diagnoses / Referred By Referred To Procedures Contact Contact Emergency Medicine [facility] rgency Dept [address] [place] [phone] Fax: Encounter Details Date Type Department Care Team Description 08/28/2020 - Emergency [facility] Monika Allen MD [address] [place] [phone] Abdominal pain during in first trimester (Primary Dx); 08/29/2020 Department Anthonyerjessi, Leann Bauman MD [address] [place] [phone] Nausea and vomiting during [address] [place] [phone] Allergies Active Allergy Reactions Severity Noted Date Comments Ibuprofen Hives 04/15/2014 [place] Hives 04/15/2014 Sodium Citrate (Bulk) Nausea and/or Vomiting 9 documented as of this encounter (statuses as of 08/29/2020) Medications Medication Sig Dispensed Refills Start Date End Date Status ondansetron HCl Take by mouth. 0 Active (ZOFRAN ORAL) vit Take 1 Packet by 30 Each 6 08/03/2020 Active 39-kznk-oefve-dha mouth daily. 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 Ice Carver Utility Encounter for IUD removal and reinsertion [...] management 01/25/2015 05/20/2018 Overview: ICD10 Diagnosis Term Ice Carver Utility Breast tenderness in female 01/25/2015 05/20/2018 Not immune to rubella 04/16/2014 06/04/2016 Overview: ICD10 Diagnosis Term Ice Carver Utility documented as of this encounter (statuses [...] YOU WISH TO FOLLOW-UP WITHIN THE [facility], MAY TRY THESE OPTIONS (CLINIC APPOINTMENTS AVAILABLE ON [id number] BASIS): 1. SCHEDULE AN APPOINTMENT ONLINE AT [email or web address] 2. OR CALL THE [facility] AT OR 3. OR CALL YOUR [facility] PHYSICIAN'S OFFICE DIRECTLY IF YOU ARE ALREADY AN ESTABLISHED [facility] PATIENT. RETURN TO ER FOR WORSENING OF SYMPTOMS. AttachmentsThe following attachments cannot be sent through Care Everywhere. : Your First Trimester Changes (Upper Sorbian)Severe Morning Sickness (Hyperemesis Gravidarum) (Upper Sorbian)documented in this encounter ED Notes Arsalan Salazar [...] site, catheter intact. [facility] accompanied by visitors x2, in possession [...] - 08/28/2020 11:47 PM CDT[facility] Nurse Note - Ada [...] cough, SOB. . Patient was seen in [place] for same complaint, patient's s/o states "they [...] 08/31/2020 Routine Visit OB Satellites Lauren Fernandez, HARVEST WORKER FRUIT [address] [address] 15 [phone] Health Maintenance Due Date Last Done Comments [...] Abdominal pain Re sults for this PANEL (78383) CDT [facility] (ALB,T.PRO,BILI first trimester the resul ts T,BU/BC,ALT,AST,ALK section. PHOS) documented in this encounter Results Urinalysis (08/29/2020 12:26 AM CDT) Pathologist Sig nature APPEARANCE Clear Clear [facility] COLOR Trudi (A) Yellow [facility] PH 7.0 4.8 - 8.0 [facility] SP GRAVITY 1.030 1.003 - 1.030 [facility] GLU U QUAL Normal Normal [facility] BLOOD Negative Negative [facility] KETONES 80 mg/dL (A) Negative [facility] PROTEIN 30 mg/dL (A) Negative [facility] UROBILIN 2.0 mg/dL (A) Normal [facility] BILIRUBIN Negative Negative [facility] NITRITE Negative Negative [facility] LEUK HO Negative Negative [facility] RBC/HPF 3 0 - 3 HPF [facility] WBC/HPF 3 0 - 5 HPF [facility] BACTERIA Negative Negative [facility] MUCOUS Marked (A) Negative LPF [facility] SQ EPITH 4 (H) <=2 HPF [facility] Specimen Urine - URINE, CLEAN CATCH Performing Organization Address City/State/Zipcode Phone Number [facility] CLIA: [id number] [place], [place] [address] [address] [place], [place] [address]vd TOTAL BHCG (QUANTITATIVE) (08/28/2020 10:08 PM CDT) Pathologist Sig nature BETA HCG 140,720.00 Non- female [facility] and male patients: SERVICES <5 mIU/mL Specimen Blood - VENOUS Narrative Performed At [facility] Gestational Age Rang e (mIU/mL) 1-10 Weeks 4 [phone] 11-15 Weeks 11 [phone] 16-22 Weeks 74 [phone] 23-40 Weeks 15 [id number] Biotin has been reported to cause a negative bias, int erpret results relative to patient's use of biotin. Performing Organization Address City/[facility] [email or web address] Phone Number [facility] CLIA: [id number] [place] [address] [place] [address] Hepatic Function Panel (ALB, T.PRO, BILI T, BU/BC, ALT, AST, ALK PHOS) (08/28/2020 10:08 PM CDT) Pathologist Sig nature TOTAL BILI 0.7 0.1 - 1.1 mg/dL [facility] BILI UNCON 0.9 0.1 - 1.1 mg/dL [facility] BILI CONJ 0.0 0.0 - 0.3 mg/dL [facility] T PROTEIN 6.8 6.3 - 8.2 g/dL [facility] ALBUMIN 4.1 3.5 - 5.0 g/dL [facility] ALK PHOS 56 34 - 122 U/L [facility] ALTv 21 5 - 35 U/L [facility] AST(SGOT) 20 13 - 40 U/L [facility] Specimen Blood - VENOUS Performing Organization Address City/[facility]/Zipcode Phone Number [facility] CLIA: [id number] [place] [id number] [address] [place] [address] Basic Metabolic Panel (NA, K, CL, CO2, GLUCOSE, BUN, CREATININE, CA) (08/28/2020 10:08 PM CDT) NA 139 135 - 145 [facility] mmol/L SERVICES K 3.4 (L) 3.5 - 5.0 [facility] mmol/L SERVICES CL 108 98 - 108 mmol/L [facility] CO2 TOTAL 21 (L) 23 - 31 mmol/L [facility] AGAP 10 2 - 16 [facility] BUN 7 7 - 23 mg/dL [facility] GLUCOSE 99 70 - 110 mg/dL [facility] CREATININE 0.49 (L) 0.50 - 1.04 [facility] mg/dL SERVICES CALCIUM 9.0 8.6 - 10.6 [facility] mg/dL SERVICES eGFR Calculation 149.3 mL/min/1.73m2 [facility] (Non- SERVICES Hong [place]er) eGFR Calculation 181.0 mL/min/1.73m2 [facility] () SERVICES Specimen Blood - VENOUS Narrative Performed At Association of Glomerular Filtration Rate (GFR) and St aging [facility] SERVICES of Kidney Disease* + [...] Performing Organization Address City/State/Zipcode Phone Number [facility] CLIA: [id number] [place] [address] [place] [address] CBC with Differential (08/28/2020 10:08 PM CDT) Pathologist Sig nature WBC 8.57 4.30 - 11.10 [facility] 10*3/L SERVICES RBC 4.62 3.93 - 5.25 [facility] 10*6/L SERVICES HGB 14.5 11.6 - 15.0 [facility] g/dL SERVICES HCT 40.7 35.7 - 45.2 % [facility] MCV 88.1 80.6 - 95.5 fL [facility] MCH 31.4 25.9 - 32.8 pg [facility] MCHC 35.6 (H) 31.6 - 35.1 [facility] g/dL SERVICES RDW-SD 38.5 (L) 39.0 - 49.9 fL [facility] RDW-CV 12.0 12.0 - 15.5 % [facility] PLT 187 166 - 358 [facility] 10*3/L SERVICES MPV 9.8 9.5 - 12.9 fL [facility] NRBC/100 WBC 0.0 0.0 - [...] Performing Organization Address City/State/Zipcode Phone Number [facility] CLIA: [id number] [place] [address] [place] [address] documented in this encounter Visit Diagnoses Diagnosis [...] / Subscriber ID Effective Phone Address T [facility] Group Dates ASIA BETANCOURT [id number] 2018-Anupama [address] Medic aid [place] [id number] MANAGED MEDICAID [place] documented as of this encounter Advance Directives Type Date Recorded Patient Manager Of Sales Explanati on Advance Directives and Living Will Power of Zinc Plate Cutter Name Relationship Healthcare Agent Relationship Co mmunication Floyd Brown Father Health Care Agent Preet Alexx Other Health Care Agent [place] Gina Spouse [facility] Care Agent (Mobile)
--- OUTSIDE RECORDS SUMMARY | 2020-09-07 20:07 | XMS REPORT | Summary of Care ---
:1990 Author Organization [facility] - [facility] Address [address] [place] [address] Care Team Providers Name Role Phone Gamal Saravia Insurance Hmo Lauren Fernandez Primary Care Provider Reason for Referral (Routine) Status Reason Specialty Diagnoses / Referred By Referred To Procedures Contact Contact New Request Diagnoses Hyperemesis gravidarum Marisel Galvan, Procedures Discharge Follow-Up: Director Of Collections Lorena FRANKLIN [address] [place], [place] [id number] Reason for Visit Auth/Cert Status Reason Specialty Diagnoses / Procedures Referred By Lauren marquez To Contact Contact Obstetrics Diagnoses 7wks IUP hyperemesis J10c [address] [place] [phone] Phone: Fax: Encounter Details Date Type Department Care Team Description 08/30/2020 - Hospital Encounter Obstetrics and Jad Isaacs ea and vomiting 09/01/2020 Gynecology (J10C) MD Tyler during [address] [place] [id number] [phone] Allergies Active Allergy Reactions Severity Noted Date Comments Ibuprofen Hives 04/15/2014 [place] Hives 04/15/2014 Sodium Citrate (Bulk) Nausea and/or Vomiting 9 documented as of this encounter (statuses as of 09/01/2020) Medications Medication Sig Dispensed Refills Start End Date Status Date vit Take 1 Packet by 30 Each 6 Active 74-wsgz-mszlh-dha mouth daily. 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 Encounter for IUD removal and reinsertion 01/18/2015 ASCUS on Pap smear 04/15/2014 Estimated Date of Delivery Comments Yes 04/11/2021 Based on Ultrasound, FHT: 127, Transverse Presentation, Placen ta Too early to evaulate documented as of this encounter (statuses as of 09/01/2020) Resolved Problems Problem Noted Date Resolved Date 37 weeks gestation of 12/18/2018 01/08/20 19 [place] Hick's contraction 12/12/2018 01/08/2019 Abnormal maternal glucose [...] management 01/25/2015 05/20/2018 Overview: ICD10 Diagnosis Term Wool Hat Flanger Utility Breast tenderness in female 01/25/2015 05/20/2018 Not immune to rubella 04/16/2014 06/04/2016 Overview: ICD10 Diagnosis Term Wool Hat Flanger Utility documented as of this encounter (statuses [...] cannot be sent through Care Everywhere. Diet, [place] (Adult) (Citizen Of [place])documented in this encounter Progress Notes Major Velasquez [...] mL IV piggyback 25 mg IV Piggyback [id number] mg at 09/01/20 0552 pyridoxine (VITAMIN B-6) [...] 08/28/2020 21 No results found for: URICACID, [id number] No results found for: LDH Assessment/Plan: Suraj [...] tolerate PO for over 2 days - [facility] ED Course: s/p 2L NS bolus, IV 4mg zofran, 12.5 benadryl, 20mg Pepcid, 12.5 phenergan, refused second phenergan dose so given Reglan 10mg, 20mEq KCLrepletion - OSH labs remarkable for K 3.2, Cr 0.72, LFT WNL, lipase 59, Udip with 2+ ketone -Patient reports severe nausea, dry heaving noted in triage - Upon transfer to [facility], P 80s, BP 120/60s - Repeat [...] presentation at 37w - Documented LTCS at [facility] - Desires possible Hx PTD - G1 at 34w - G2 at 36w COVID-19 SCREEN: Lab Results Component Value Date/Time COVID19 Not Detected 08/30/2020 11:37 PM Antepartum course reviewed - seronegative, Rnot immune, VZVnot immune,A positive/IATnegative, GBSunk, PapASCUS 11/2017, neg HRHPV, needs repeat cotesting in 3 years - H/H, plt:14.5/ 40.7,187on 08/28/[facility] [id number] bpm via M mode on admission BSUS Major Velasquez MD 09/01/2020 Associated attestation - Marisel Galvan MD - 09/01/2020 10:40 AM CDT I was rounding [facility] faculty for this patient and was [...] presentation at 37w - Documented LTCS at [facility] - Desires possible Hx PTD - G1 at 34w - G2 at 36w COVID-19 SCREEN: Lab Results Component Value Date/Time COVID19 Not Detected 08/30/2020 11:37 PM Antepartum course reviewed - sero negative, Rnot immune, VZVnot immune, A positive/IAT negative, GBS unk, Pap ASCUS 11/2017, negHRHPV, needs repeat cotesting in 3 years - H/H, plt: 14.5 / 40.7, 187 on 08/28/20 [facility] - FHT 171-178 bpm via M mode on admission BSUS Major Velasquez MD - 08/31/2020 1:15 PM CDTJamiee Luly Fuentes [id number] 08/31/2020 1:15 PM Post-Rounds: - daily BMP [...] Fernandez CHIEF COMPLAINT Transfer from [facility] ED HISTORY OF PRESENT ILLNESS Suraj Fuentes is a 29 year old at 8w0d who was transferred from [facility] ED for nausea and vomiting during [...] for over 2 days. She went to [facility] ED earlier this week (3-4 days ago), then presented to [facility] ED Saturday night.She was given 1L bolus, IV zofran, IV phenergan, and reglan, PO challenged with water/crackers, thensent home with renewed eRx vitamin B6. Reports PO zofran and Reglan not helping right now, therefore went to [facility] ED earlier this afternoon. [facility] ED Course: Afebrile, Pulse 71-86, BP [...] Manny Gray; Location: Labor and Delivery - [place] Past Medical History: Diagnosis Date Abnormal maternal [...] Oral Q6H Allergies and drug reactions: Ibuprofen, [place], and Sodium citrate (bulk) HOME MEDICATIONS Medications [...] (ZOFRAN ORAL) Take by mouth. 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 Resolved Hospital Problems No resolved problems [...] tolerate PO for over 2 days - [facility] ED Course: s/p 2L NS bolus, IV 4mg zofran, 12.5 benadryl, 20mg Pepcid, 12.5 phenergan, refused second phenergan dose so given Reglan 10mg, 20mEq KCL repletion - OSH labs remarkable for K 3.2, Cr 0.72, LFT WNL, lipase 59, Udip with 2+ ketone - Patient reports severe nausea, dry heaving noted at bedside - Upon transfer to [facility], P 80s, BP 120/60s - Repeat [...] presentation at 37w - Documented LTCS at [facility] - Desires possible Hx PTD - G1 at 34w - G2 at 36w COVID-19 SCREEN: Lab Results Component Value Date/Time COVID19 Not Detected 08/30/2020 11:37 PM Antepartum course reviewed - sero negative, Rnot immune, VZVnot immune, A positive/IAT negative, GBS unk, Pap ASCUS 11/2017, negHRHPV, needs repeat cotesting in 3 years - H/H, plt: 14.5 / 40.7, 187 on [facility]28/[facility] - FHT 171-178 bpm via M [...] - 08/31/2020 5:02 PM CDTFood Allergy and Cultural/Shinto Food Preferences Consult Note: Spoke with patient's nurse today over the phone. Per nurse, patient with food allergy to oranges. Per allergy list patient with hives as reported reaction. Please see confirmed food allergy below. Confirmed Food Allergy: 1. [place] Reaction:Hives Confirmed Cultural Food Preferences: 1. None Confirmed Shinto Food Preferences: 1. None Kary Coppola MS, RD, LD Clinical Dietitian RD Office: [phone] documented in this encounter Miscellaneous Notes Care [...] 09/08/2020 Routine Visit OB Satellites Lauren Fernandez, RADIOLOGIST CHIEF OF BREAST IMAGING [address] [address] [phone] Name Type Priority Associated Diagnoses Order S [...] AM CDT) NA 135 135 - 145 [facility] mmol/L SERVICES K 3.6 3.5 - 5.0 [facility] mmol/L SERVICES CL 106 98 - 108 mmol/L [facility] SERVICES CO2 TOTAL 21 (L) 23 - 31 mmol/L [facility] SERVICES AGAP 8 2 - 16 [facility] SERVICES BUN 3 (L) 7 - 23 mg/dL [facility] GLUCOSE 106 70 - 110 mg/dL [facility] CREATININE 0.46 (L) 0.50 - 1.04 [facility] mg/dL SERVICES CALCIUM 8.6 8.6 - 10.6 [facility] mg/dL SERVICES eGFR Calculation 160.6 mL/min/1.73m2 [facility] (Non- SERVICES Pakistani) eGFR Calculation 194.7 mL/min/1.73m2 [facility] () SERVICES Specimen Blood - VENOUS Narrative Performed At Association of Glomerular Filtration Rate (GFR) and St aging [facility] SERVICES of Kidney Disease* + [...] in imaging tests) . Performing Organization Address City/[facility] [place] Phone Number [facility] CLIA: [id number] [place], [place] [address] [address] [place] [address] URINALYSIS (08/31/2020 4:07 PM CDT) Pathologist Sig [...] - URINE, CLEAN CATCH Performing Organization Address [facility] [place] Phone Number [facility] CLIA: [id number] [place] [address] [place] [address] Type and Screen - ONCE Routine (08/31/2020 12:23 AM CDT) Pathologist [facility] ABO & RH A POSITIVE LAB Comment: Performed at [facility] Laboratory Services - [facility] Blood Bank [address] [place] [address] Toll Free: [phone] CLIA No. [id number] IAT Negative LAB Comment: Performed at [facility] Laboratory Services - [facility] Blood Bank [address] [place] [address] Toll Free: [phone] CLIA No. [id number] Specimen Blood - VENOUS Performing Organization Address City/[facility] Phone Number [facility] LAB BASIC METABOLIC PANEL (NA, K, CL, CO2, GLUCOSE, BUN, CREATININE, CA) (08/31/2020 12:17 AM CDT) [facility] NA 134 (L) 135 - 145 [facility] mmol/L SERVICES K 3.8 3.5 - 5.0 [facility] mmol/L SERVICES CL 104 98 - 108 mmol/L [facility] SERVICES CO2 TOTAL 22 (L) 23 - 31 mmol/L [facility] SERVICES AGAP 8 2 - 16 [facility] SERVICES BUN <2 (L) 7 - 23 mg/dL [facility] SERVICES GLUCOSE 87 70 - 110 mg/dL [facility] SERVICES CREATININE 0.50 0.50 - 1.04 [facility] mg/dL SERVICES CALCIUM 8.8 8.6 - 10.6 [facility] mg/dL SERVICES eGFR Calculation 145.9 mL/min/1.73m2 [facility] (Non- SERVICES Pakistani) eGFR Calculation 176.8 mL/min/1.73m2 [facility] () SERVICES Specimen Blood - VENOUS Narrative Performed At Association of Glomerular Filtration Rate (GFR) and St aging [facility] SERVICES of Kidney Disease* + [...] in imaging tests) . Performing Organization Address City/[facility]/Zipcode Phone Number [facility] CLIA: [id number] [place] [address] [place] [address] COVID-19 (ID NOW RAPID TESTING) (08/30/2020 11:37 PM CDT) SARS-CoV-2 Rapid ID Not Detected Not Detected [facility] NOW SERVICES Specimen Swab - NASOPHARYNGEAL SWAB Narrative Performed At [place] NOW COVID-19 Assay is an isothermal nucleic acid [facility] SERVICES amplification test intended for the qualitative detect ion of nucleic acid from SARS-CoV-2 viral RNA in nasopharynge al (CLERICAL ADJUSTER) specimens. It is used under Emergency Use [...] indicated. Performing Organization Address City/State/Zipcode Phone Number [facility] CLIA: [id number] [place] [address] [phone] [address] [facility] URINALYSIS (08/30/2020 10:44 PM CDT) Pathologist Sig nature APPEARANCE Clear Clear [facility] COLOR Yellow Yellow [facility] PH 7.0 4.8 - 8.0 [facility] SP GRAVITY 1.012 1.003 - 1.030 [facility] GLU U QUAL Normal Normal [facility] BLOOD Negative Negative [facility] KETONES 80 mg/dL (A) Negative [facility] PROTEIN Negative Negative [facility] UROBILIN Normal Normal [facility] BILIRUBIN Negative Negative [facility] NITRITE Negative Negative [facility] LEUK HO Negative Negative [facility] RBC/HPF 2 0 - 3 HPF [facility] WBC/HPF <1 0 - 5 HPF [facility] BACTERIA Negative Negative [facility] MUCOUS Slight (A) Negative LPF [facility] SERVICES SQ EPITH 1 <=2 HPF [facility] ASCORBIC ACID Negative [facility] SERVICES Specimen Urine - URINE, CLEAN CATCH Performing Organization Address City/State/Zipcode Phone Number [facility] CLIA: [id number] [place] [address] [place] [address] documented in this encounter Visit Diagnoses Diagnosis [...] mL/hr, 1,000 mL, Intravenous, ONCE, 1 dose, [facility] 08/30/20 at 2330, Routine potassium chloride 20 [...] Address T ype Group Dates ASIA BETANCOURT [id number] 2018-Anupama P [address] BOX Medic [place] [phone] [place] documented as of this encounter Advance Directives Type Date Recorded Patient Inpatient Services Rn Explanati on Advance Directives and Living Will Power of Law Clerk Name Relationship Healthcare Agent Relationship Co mmunication Floyd Brown Father Health Care Agent Preet Coffey Other Health Care Agent [place] Gina Spouse First [facility] Health Care [phone] Agent (Mobile)
--- OUTSIDE RECORDS SUMMARY | 2020-09-07 20:07 | XMS REPORT | Summary of Care ---
:1990 Author Organization [facility] Address [address] [place] [address] Care Team Providers Name Role Phone Gamal Saravia Insurance Hmo Lauren Fernandez EMERGENCY MEDICAL TECHNICIAN Primary Care Provider Reason for Visit Reason Comments Assessment vomit Encounter Details Date Type Department Care Team Description 09/06/2020 Telephone [facility]- Cornelius Fernandez, As sessment (vomit) [facility] [address] [facility] [address] [place] [address] [place] [address] [phone] Allergies Active Allergy Reactions Severity Noted Date Comments Ibuprofen Hives 04/15/2014 [place] Hives 04/15/2014 Sodium Citrate (Bulk) Nausea and/or Vomiting 9 documented as of this encounter (statuses as of 09/06/2020) Medications Medication Sig Dispensed Refills Start Date End Date Status vit Take 1 Packet by 30 Each 6 08/03/2020 Active 90-hxci-shahs-dha mouth daily. 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 Subscription Clerk Utility Encounter for IUD removal and [...] management 01/25/2015 05/20/2018 Overview: ICD10 Diagnosis Term Subscription Clerk Utility Breast tenderness in female 01/25/2015 05/20/2018 Not immune to rubella 04/16/2014 06/04/2016 Overview: ICD10 Diagnosis Term Subscription Clerk Utility documented as of this encounter (statuses as of 09/06/2020) Immunizations Name Administration Dates Next Due HPV9 06/04/2016 MMR 12/20/2018 (Deferred: - not available f [facility]) TDAP 04/06/2015 TDAP (ADACEL) VACCINE 12/11/2018 [...] old female Patient stated she went to [facility] 08/28/20 for N/V and has received fluids [...] has been loosing weight , please call [phone] (home) documented in this encounter Plan of Treatment Date Type Specialty Care Team Description 09/08/2020 Routine Visit OB Satellites Lauren Fernandez FNP [address] [address] [phone] Health Maintenance Due Date Last Done Comments [...] Address T e Group Dates ASIA BETANCOURT [id number] 2018-Anupama P [address] B[address] Medic [place] [address] [place] documented as of this encounter Advance Directives Type Date Recorded Patient Transport Engineer Explanati on Advance Directives and Living Will Power of Distribution Transformer Assembler Name Relationship Healthcare Agent Relationship Co mmunication Floyd Brown Father Health Care Agent Preet Coffey Other Health Care Agent [place] Fuentes Spouse First [facility] Health Care [phone] Agent (Mobile)
--- OUTSIDE RECORDS SUMMARY | 2020-09-07 20:07 | XMS REPORT | Summary of Care ---
:1990 Author Organization [facility] Address [address] [place] [address] Care Team Providers Name Role Phone Gamal Saravia Insurance Hmo Lauren Fernandez PAINTER SET Primary Care Provider Reason for Visit Reason Comments Assessment vomit Encounter Details Date Type Department Care Team Description 09/06/2020 Telephone [facility]- Cornelius Fernandez, As sessment (vomit) [facility] [address] [facility] [address] [place] [address] [place] [address] [phone] Allergies Active Allergy Reactions Severity Noted Date Comments Ibuprofen Hives 04/15/2014 [place] Hives 04/15/2014 Sodium Citrate (Bulk) Nausea and/or Vomiting 9 documented as of this encounter (statuses as of 09/06/2020) Medications Medication Sig Dispensed Refills Start End Date Status Date vit Take 1 Packet by 30 Each 6 Active 43-oprx-ehzai-dha mouth daily. 0 (SELECT-OB + DHA) 29 mg iron-1 mg -250 mg combo packIndications: Supervision of high risk in first trimester pyridoxine, VITAMIN Take 1 tablet by 120 tablet 1 Active B-6, 25 mg mouth every 6 0 20 tabletIndications: (six) hours for Hyperemesis 42 days. gravidarum proCHLORperazine 10 Take 1 tablet by 20 tablet 0 Active mg mouth every 6 0 tabletIndications: (six) hours as Hyperemesis needed (for gravidarum nausea and vomiting unresponsive to doxylamine/pyrid oxine). doxylamine-pyridoxin Take 2 tablets 90 tablet 3 Active e, vit B6, by mouth at 0 (DICLEGIS) 10-10 mg bedtime. per tabletIndications: Nausea and vomiting during doxylamine 25 mg Take 1 tablet by 120 tablet 1 09/06 Discontinued tabletIndications: mouth every 6 0 20 Hyperemesis (six) hours for gravidarum 42 days. 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 Encounter for IUD removal and reinsertion 01/18/2015 ASCUS on Pap smear 04/15/2014 Estimated Date of Delivery Comments Yes 04/11/2021 Based on Ultrasound, FHT: 127, Transverse Presentation, Placen ta Too early to evaulate documented as of this encounter (statuses as of 09/06/2020) Resolved Problems Problem Noted Date Resolved Date 37 weeks gestation of 12/18/2018 01/08/20 19 [place] Hick's contraction 12/12/2018 01/08/2019 Abnormal maternal glucose [...] management 01/25/2015 05/20/2018 Overview: ICD10 Diagnosis Term Retrieval Specialist Utility Breast tenderness in female 01/25/2015 05/20/2018 Not immune to rubella 04/16/2014 06/04/2016 Overview: ICD10 Diagnosis Term Retrieval Specialist Utility documented as of this encounter (statuses [...] on filedocumented in this encounter Miscellaneous Notes Addendum Note - Cornelius Fernandez FNP - 09/06/2020 3:11 PM CDT Addended by: CORNELIUS GUEVARA on: 09/06/2020 03:11 PM Modules accepted: Orders Telephone Encounter - Cornelius Fernandez FNP - 09/06/2020 3:10 PM CDTAnother medication has been prescribed. elephone Encounter - Cornelius Fernandez FNP - 09/06/2020 2:24 PM CDTPlease advise, I can to given any information concerning . Does patient seek medication for nausea and vomiting? elephone Encounter - Alfreda Vaughn LVN - 09/06/2020 1:55 PM CDTSuraj Mauricio Clotilde Fuentes is a 29 year old female Patient stated she went to [facility] 08/28/20 for N/V and has received fluids and PO medication.Stated she is still having n/v and medication is not helping. Patient stated she has tried to get anabortion but she has not been able to find a clinic. Informed patient message would be routed to provider for recommendations, ER warnings given, verbalized understanding. elephone Encounter - Janell Lynne - 09/06/2020 1:05 PM ALMATSuraj Luly Fuentes is a 29 year old female Patient requesting to speak with provider, vomiting has gotten worse although and still vomiting not able to keep food or water and has been loosing weight , please call [phone] (home) documented in this encounter Plan of Treatment Date Type Specialty Care Team Description 09/08/2020 Routine Visit OB Satellites Lauren Fernandez, PAINTER SET [address] [id number] [phone] Health Maintenance Due Date Last Done Comments [...] Nausea and vomiting during - P rimary documented in this encounter Insurance Payer Benefit Plan / Subscriber ID Effective Phone Address T e Group Dates ASIA BETANCOURT [id number] 2018-Anupama Camacho [address] Medic [place] [id number] [place] documented as of this encounter Advance Directives Type Date Recorded Patient 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
--- OUTSIDE RECORDS SUMMARY | 2020-09-07 20:07 | XMS REPORT | Summary of Care ---
:1990 Author Organization [facility] Address [address] [place] [address] Care Team Providers Name Role Phone Gamal Saravia Insurance Hmo Lauren Fernandez IT ADMINISTRATOR Primary Care Provider Reason for Visit Reason Comments Assessment vomit Encounter Details Date Type Department Care Team Description 09/06/2020 Telephone [facility]- Cornelius Fernandez, As sessment (vomit) [facility] [address] [facility] [address] [place] [address] [place] [address] [phone] Allergies Active Allergy Reactions Severity Noted Date Comments Ibuprofen Hives 04/15/[address] Hives 04/15/2014 Sodium Citrate (Bulk) Nausea and/or Vomiting 9 documented as of this encounter (statuses as of 09/06/2020) Medications Medication Sig Dispensed Refills Start Date End Date Status vit Take 1 Packet by 30 Each 6 08/03/2020 Active 23-kuwp-xxndc-dha mouth daily. 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) TDAP 04/06/2015 TDAP (ADACEL) [...] old female Patient stated she went to [facility] 08/28/20 for N/V and has received fluids [...] has been loosing weight , please call [phone] (home) documented in this encounter Plan of Treatment Date Type Specialty Care Team Description 09/08/2020 Routine Visit OB Satellites Lauren Fernandez FNP [address] [place] [address] [phone] Health Maintenance Due Date Last Done Comments [...] Address T e Group Dates ASIA BETANCOURT [id number] 2018-Anupama [address] Medic [place] [id number] [place] MEDICA[place] documented as of this encounter Advance Directives Type Date Recorded Patient Deck Lid Fitter Explanati on Advance Directives and Living Will Power of Ditch Tender Name Relationship Healthcare Agent Relationship Co mmunication Floyd Brown Father Health Care Agent Preet Coffey Other Health Care Agent [place] Fuentes Spouse First [facility] Health Care Agent (Mobile)
--- OUTSIDE RECORDS SUMMARY | 2020-09-07 20:08 | XMS REPORT | Summary of Care ---
:1990 Author Organization [facility] Address [address] [place] [address] Care Team Providers Name Role Phone Gamal Saravia Insurance Hmo Lauren Fernandez Primary Care Provider Reason for Visit Reason Comments Abdominal Pain Vomiting Auth/Cert Status Reason Specialty Diagnoses / Referred By Referred To Procedures Contact Contact Emergency Medicine Adc Em ergency Dept [address] [id number] Fax: Encounter Details Date Type Department Care Team Description 09/07/2020 Emergency ADC-Emergency Depart ment Mary Carmen Jacobs, PAC [address] [facility] [address] [place] [address] [place] [address] [place] [address] [phone] Allergies Active Allergy Reactions Severity Noted Date Comments Ibuprofen Hives 04/15/2014 [place] Hives 04/15/2014 Sodium Citrate (Bulk) Nausea and/or Vomiting 9 documented as of this encounter (statuses as of 09/07/2020) Medications Medication Sig Dispensed Refills Start Date End Date Status vit Take 1 Packet by 30 Each 6 08/03/2020 Active 14-yyff-wlacv-dha mouth daily. (SELECT-OB + DHA) 29 mg iron-1 mg -250 mg combo packIndications: Supervision of high risk in first trimester pyridoxine, VITAMIN Take 1 tablet by 120 tablet 1 09/01/2020 1 Active B-6, 25 mg mouth every 6 0 tabletIndications: (six) hours for 42 Hyperemesis gravidarum days. proCHLORperazine 10 mg Take 1 tablet by 20 tablet 0 09/01/2020 Active tabletIndications: mouth every 6 Hyperemesis gravidarum (six) hours as needed (for nausea and vomiting unresponsive to doxylamine/pyridox ine). doxylamine-pyridoxine, Take 2 tablets by 90 tablet 3 0 Active vit B6, (DICLEGIS) mouth at bedtime. 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 Encounter for IUD removal and reinsertion 01/18/2015 ASCUS on Pap smear 04/15/2014 Estimated Date of Delivery Comments Yes 04/11/2021 Based on Ultrasound, FHT: 127, Transverse Presentation, Placen ta Too early to evaulate documented as of this encounter (statuses as of 09/07/2020) Resolved Problems Problem Noted Date Resolved Date [...] management 01/25/2015 05/20/2018 Overview: ICD10 Diagnosis Term Diaper Machine Tender Utility Breast tenderness in female 01/25/2015 05/20/2018 Not immune to rubella 04/16/2014 06/04/2016 Overview: ICD10 Diagnosis Term Diaper Machine Tender Utility documented as of this encounter (statuses as of 09/07/2020) Immunizations Name Administration Dates Next Due HPV9 [...] been in contact with No / Unsure 09/07/2020 2:33 PM CDT someone who was confirmed or suspected to have Coronavirus / COVID-19? documented as of this encounter Last Filed Vital Signs Vital Sign Reading Time Taken Comments Blood Pressure 153/110 09/07/2020 2:38 PM CDT Pulse 88 09/07/2020 2:38 PM CDT Temperature 36.8 C (98.2 F) 09/07/2020 2:38 PM CDT Respiratory Rate 20 09/07/2020 2:38 PM CDT Oxygen Saturation 98% 09/07/2020 2:36 PM CDT Inhaled Oxygen Concentration - - Weight 83 kg (183 lb) 09/07/2020 2:36 PM CDT Height 162.6 cm (5' 4") 09/07/2020 2:36 PM CDT Body Mass Index 31.41 09/07/2020 2:36 PM CDT documented in this encounter ED Notes Brenda Austin RN - 09/07/2020 3:00 PM CDTPA bedside for evaluation. Pt states, "I don't want anything done. I don't want any medicine. I justwant to get this baby out of me. I have been sick this while ." PA extensively discussed concerns with patient regarding pain in early and evaluating for medical emergency. Discussedrisks of not allowing appropriate labwork and evaluation. Discussed ER process and procedures. Patient declined medical work up. Pt only wishes to terminate now. No active vomiting noted. Also discussed contacting her manager chinese for termination. Pt signed AMA form and walked out of ER without incident. Brenda frost RN - 09/07/2020 2:45 PM CDTPt upset with staff regarding visitor policy states, "She just needs an cigar making machine operator. She needs toget this baby out of her." Informed patient of current visitor policy and ER process and procedures. Rikki Jaramillo RN - 09/07/2020 2:34 PM CDTAs per patient, patient is 8 weeks . Has abdominal pain and vomiting. Been to different hospital for the same reason. Wants to take out the baby. " i cant take it any more. I dont want the baby". Crying and spitting to emesis bag. Patient declines to have any medicine. Denies any vaginal discharge/bleeding Patient denies any medical history documented in this encounter Miscellaneous Notes ED Nurse Note - Rikki Mitchell RN - 09/07/2020 2:44 PM CDTNurse Report Report given to Crystal MEJÍA. Chief complaint, assessment findings and orders reviewed. Plan of care discussed. 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
--- OUTSIDE RECORDS SUMMARY | 2020-09-07 20:08 | XMS REPORT | Summary of Care ---
:1990 Author Organization [facility] Address [address] [place] [address] Care Team Providers Name Role Phone Gamal Saravia Insurance Hmo Lauren Fernandez RESIDENTIAL AIDE Primary Care Provider Reason for Visit Reason Comments Assessment vomit Encounter Details Date Type Department Care Team Description 09/06/2020 Telephone [facility]- Cornelius Fernandez, As sessment (vomit) [facility] [address] [facility] [address] [place] [address] [place] [address] [phone] Allergies Active Allergy Reactions Severity Noted Date Comments Ibuprofen Hives 04/15/2014 [place] Hives 04/15/2014 Sodium Citrate (Bulk) Nausea and/or Vomiting 9 documented as of this encounter (statuses as of 09/06/2020) Medications Medication Sig Dispensed Refills Start End Date Status Date vit Take 1 Packet by 30 Each 6 Active 03-juny-qyrkf-dha mouth daily. 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 Hog Ribber Utility Encounter for IUD removal and reinsertion 01/18/2015 ASCUS on Pap smear 04/15/2014 Estimated Date of Delivery Comments Yes 04/11/2021 Based on Ultrasound, FHT: 127, Transverse Presentation, Placen ta Too early to evaulate documented as of this encounter (statuses as of 09/06/2020) Resolved Problems Problem Noted Date Resolved Date 37 weeks gestation of 12/18/2018 01/08/20 19 Charles Hick's contraction 12/12/2018 01/08/2019 Abnormal maternal glucose [...] management 01/25/2015 05/20/2018 Overview: ICD10 Diagnosis Term Hog Ribber Utility Breast tenderness in female 01/25/2015 05/20/2018 Not immune to rubella 04/16/2014 06/04/2016 Overview: ICD10 Diagnosis Term Hog Ribber Utility documented as of this encounter (statuses [...] Telephone Encounter - Alfreda Vaughn LVN - 09/06/2020 4:32 PM CDTJamiee Luly Fuentes is a 29 year old female Patient stated she went to [facility] and was given a shot of phenergan. Patient stated she wasgiven Tylenol but vomited and is pain. Stated her is taking her to [facility]. informed patient to f/u after and discharge and keep her pnv if she is discharged by then. Informed medication was sent to pharmacy, verbalized understanding. ddendum Note - Cornelius Fernandez FNP - 09/06/2020 [...] Alfreda Vaughn LVN - 09/06/2020 1:55 PM Annalee Luly Fuentes is a 29 year old female Patient stated she went to [facility] 08/28/20 for N/V and has [...] Janell Lynne - 09/06/2020 1:05 PM Annalee Luly Fuentes is a 29 year old female Patient requesting to speak with provider, vomiting has gotten worse although and still vomiting not able to keep food or water and has been loosing weight , please call [phone] (home) documented in this encounter Plan of Treatment Date Type Specialty Care Team Description 09/08/2020 Routine Visit OB Satellites Lauren Fernandez FNP [address] [place], [place] [address] [phone] Health Maintenance Due Date Last Done Comments [...] Address T e Group Dates ASIA BETANCOURT [id number] 2018-Anupama Camacho [address] Medic [place] [id number] MANAGED MEDICAID [place] documented as of this encounter Advance Directives Type Date Recorded 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
[2020-09-08] MEDS ORDERED: PROMETHAZINE INJ 25 MG/ML AMP ONE ×2 (01:02→02:16)
[2020-09-08] MEDS ORDERED: NA CHLORIDE 0.9% 1,000 ML ONE (01:03)
[2020-09-08] MEDS ORDERED: FAMOTIDINE 20 MG/2 ML VIAL IV ONE (01:03)
[2020-09-08 01:05] LABS: Absolute Lymphocytes (CBC) 2.2 K/uL (0.7-4.9); Basophils % 0.3 % (0-1.3); Hematocrit 42.8 % (36.0-45.0); Lymphocytes % 23.3 % (15.3-44.8); MPV 8.4 fL (7.6-11.3)
[2020-09-08 01:14] LABS: ALT/SGPT 33 U/L (12-78); AST/SGOT 21 U/L (15-37); Albumin 3.8 g/dL (3.4-5.0); Alkaline Phosphatase 61 U/L (45-117); BUN Blood Urea Nitrogen 6 mg/dL (7-18); Bicarbonate 25 mmol/L (21-32); Bilirubin Direct 0.2 mg/dL (0-0.2); Bilirubin Total 0.8 mg/dL (0.2-1.0); Glucose Level 93 mg/dL (74-106); Lipase 74 U/L (73-393); Potassium 3.3 mmol/L (3.5-5.1); Protein, Total 8.1 g/dL (6.4-8.2); Sodium Level 140 mmol/L (136-145)
[2020-09-08] MEDS ORDERED: D5 0.9 NS 1,000 ML IV ONE (02:16)
[2020-09-08] MEDS ORDERED: DIPHENHYDRAMINE 50 MG/ML VIAL ONE (02:30)
[2020-09-08] MEDS ORDERED: ONDANSETRON 4 MG/2 ML VIAL ONE (03:26)
[2020-09-08] MEDS ORDERED: MAGNE/ALUM HYDROXD 30 ML UCUP ONE (03:46)
[2020-09-08] MEDS ORDERED: LIDOCAINE VISCOUS 2% SOLN 15 ML UDC ONE (03:46)
--- NOTE | 2020-09-08 04:10 | ER ---
Nurse's Notes [facility] Name: Suraj Fuentes Age: 29 yrs Sex: Female : 1990 Arrival Date: 09/07/2020 Time: 20:02 Bed 14 Private MD: Diagnosis: Hyperemesis Gravidarum Presentation: 09/07 20:40 Chief complaint: Patient states: N/V started today at around noon. Coronavirus screen: ca1 Client denies travel out of the [place] in the last 14 days. nausea, vomiting. Client presents with at least one sign or symptom that may indicate coronavirus-19. Standard/surgical mask placed on the client. Provider contacted for isolation considerations. Ebola Screen: Patient negative for fever greater than or equal to 101.5 degrees Fahrenheit, and additional compatible Ebola Virus Disease symptoms Patient denies exposure to infectious person. Patient denies travel to an Ebola-affected area in the 21 days before illness onset. No symptoms or risks identified at this time. Initial Sepsis Screen: Does the patient meet any 2 criteria? No. Patient's initial sepsis screen is negative. Does the patient have a suspected source of infection? No. Patient's initial sepsis screen is negative. Risk Assessment: Do you want to hurt yourself or someone else? Patient reports no desire to harm self or others. Onset of symptoms was September 07, 2020. 20:40 Method Of Arrival: Wheelchair ca1 20:40 Acuity: SHAW 3 ca1 POSITION CLASSIFICATION SPECIALIST: 20:42 LMP 06/08/2020 ca1 Historical: - Allergies: 20:42 Ibuprofen; ca1 20:42 ORANGES; ca1 - PMHx: 20:42 hyperemesis gravidum; ca1 - PSHx: 20:42 Appendectomy; ; ca1 - Immunization history:: Adult Immunizations up to date. - Social history:: Smoking status: Patient denies any tobacco usage or history of. Screenin/15 00:00 Abuse screen: Denies threats or abuse. Nutritional screening: No deficits noted. jb4 Tuberculosis screening: No symptoms or risk factors identified. Fall Risk None identified. Assessment: 00:00 General: Appears in no apparent distress. uncomfortable, Behavior is calm, cooperative, jb4 appropriate for age. Pain: Complains of pain in abdomen, throat Pain does not radiate. Pain currently is 10 out of 10 on a pain scale. Neuro: Level of Consciousness is awake, alert, obeys commands, Oriented to person, place, time, situation. Cardiovascular: Patient's skin is warm and dry. Respiratory: Airway is patent Respiratory effort is even, unlabored, Respiratory pattern is regular, symmetrical. GI: Abdomen is round non-distended, Reports lower abdominal pain, upper abdominal pain, nausea, vomiting. : No signs and/or symptoms were reported regarding the genitourinary system. EENT: No signs and/or symptoms were reported regarding the EENT system. Derm: No signs and/or symptoms reported regarding the dermatologic system. Musculoskeletal: Circulation, motion, and sensation intact. Range of motion: intact in all extremities. 01:00 Reassessment: Patient appears in no apparent distress at this time. Patient and/or jb4 family updated on plan of care and expected duration. Pain level reassessed. Patient is alert, oriented x 3, equal unlabored respirations, skin warm/dry/pink. 02:00 Reassessment: Patient appears in no apparent distress at this time. Patient and/or jb4 family updated on plan of care and expected duration. Pain level reassessed. Patient is alert, oriented x 3, equal unlabored respirations, skin warm/dry/pink. 03:08 Reassessment: Patient appears in no apparent distress at this time. Patient and/or jb4 family updated on plan of care and expected duration. Pain level reassessed. Patient is alert, oriented x 3, equal unlabored respirations, skin warm/dry/pink. Vomiting has resumed, pt and family requesting Maalox to help with vomiting and nausea, states " Maalox is one of the only things that helps her.". 03:51 Reassessment: Patient appears in no apparent distress at this time. Patient and/or jb4 family updated on plan of care and expected duration. Pain level reassessed. Patient is alert, oriented x 3, equal unlabored respirations, skin warm/dry/pink. PT tolerated PO challenge and is resting comfortably in bed. Vital Signs: 09/07 20:40 BP 118 / 82; Pulse 73; Resp 16 S; Temp 98.2(TE); Pulse Ox 100% on R/A; Weight 77.11 kg ca1 (R); Height 5 ft. 4 in. (162.56 cm) (R); 09/08 01:15 BP 138 / 82; Pulse 80; Resp 16; Pulse Ox 100% on R/A; jb4 02:30 BP 149 / 86; Pulse 66; Resp 16; Pulse Ox 100% on R/A; jb4 03:00 BP 127 / 81; Pulse 63; Resp 16; Pulse Ox 99% on R/A; jb4 04:00 BP 102 / 75; Pulse 70; Resp 16; Pulse Ox 100% on R/A; jb4 09/07 20:40 Body Mass Index 29.18 (77.11 kg, 162.56 cm) ca1 ED Course: 09/07 20:02 Patient arrived in ED. cf2 20:41 Triage completed. ca1 20:42 Arm band placed on right wrist. ca1 23:50 Carl Urbano MD is Attending Physician. mh7 09/08 00:00 Patient has correct armband on for positive identification. Bed in low position. Call jb4 light in reach. Side rails up X 1. Pulse ox on. NIBP on. 00:12 Floyd Cardenas, ALFONZO is Primary Nurse. jb4 00:40 Initial lab(s) drawn, by dc, sent to lab. Inserted saline lock: 18 gauge in right jb4 antecubital area, using aseptic technique. Blood collected. 04:18 No provider procedures requiring assistance completed. IV discontinued, intact, jb4 bleeding controlled, No redness/swelling at site. Pressure dressing applied. Administered Medications: 01:00 Drug: Phenergan 12.5 mg Route: IVP; Site: right antecubital; jb4 02:04 Follow up: Response: No adverse reaction; Nausea unchanged; Vomiting unchanged jb4 01:00 Drug: Pepcid 20 mg Route: IVP; Site: right antecubital; jb4 02:04 Follow up: Response: No adverse reaction jb4 01:03 Drug: NS 0.9% 1000 ml Route: IV; Rate: 1000 ml; Site: right antecubital; jb4 04:17 Follow up: IV Status: Completed infusion jb4 02:07 Drug: Phenergan 12.5 mg Route: IVP; Site: right antecubital; jb4 02:40 Follow up: Response: No adverse reaction; Nausea is decreased jb4 02:12 Drug: D5-NS 1000 ml Route: IV; Rate: bolus; Site: right antecubital; jb4 04:17 Follow up: Response: No adverse reaction; IV Status: Completed infusion jb4 02:24 Drug: Benadryl 25 mg Route: IVP; Site: right antecubital; jb4 02:40 Follow up: Response: No adverse reaction; Nausea is decreased jb4 03:17 Drug: Zofran (Ondansetron) 2 mg Route: IVP; Site: right antecubital; jb4 03:44 Follow up: Response: No adverse reaction; Nausea is decreased; Vomiting decreased jb4 03:43 Drug: GI Cocktail without - (Maalox Suspension 30 ml, Lidocaine Liquid 2 % 15 jb4 ml) Route: PO; 03:52 Follow up: Response: No adverse reaction; Marked relief of symptoms jb4 Outcome: 04:10 Discharge ordered by MD. snow 04:18 Discharged to home ambulatory, with family. jb4 04:18 Condition: stable 04:18 Discharge instructions given to patient, family, Instructed on discharge instructions, follow up and referral plans. medication usage, Demonstrated understanding of instructions, follow-up care, medications, Prescriptions given X 1. 04:18 Patient left the ED. jb4 Signatures: Floyd Cardenas RN RN 4 Mora Duenas RN RN ca1 [place], [place] 2 Carl Urbano MD MD 7
--- NOTE | 2020-09-08 04:11 | EDPHYS ---
Physician Documentation [facility] Name: Suraj Fuentes Age: 29 yrs Sex: Female : 1990 Arrival Date: 09/07/2020 Time: 20:02 Bed 14 Private MD: ED Physician Carl Urbano HPI: 09/08 00:10 This 29 yrs old Female presents to ER via Wheelchair with complaints of mh7 Nausea/Vomiting. 00:10 The patient presents to the emergency department with nausea, that is moderate, mh7 vomiting, that is intermittent. Onset: The symptoms/episode began/occurred today. Possible causes: . The symptoms are aggravated by food , The symptoms are alleviated by nothing. Associated signs and symptoms: Pertinent positives: nausea, vomiting, Pertinent negatives: abdominal pain, anorexia, belching, constipation, diarrhea, dysuria, fever, flatulence, GI bleeding, hematuria, vaginal discharge. Severity of symptoms: At their worst the symptoms were moderate today, in the emergency department the symptoms are unchanged. The patient has experienced similar episodes in the past, multiple times. The patient has been recently seen at the [facility], this week. EVP SALES: 09/07 20:42 LMP 06/08/2020 ca1 Historical: - Allergies: 20:42 Ibuprofen; ca1 20:42 ORANGES; ca1 - PMHx: 20:42 hyperemesis gravidum; ca1 - PSHx: 20:42 Appendectomy; ; ca1 - Immunization history:: Adult Immunizations up to date. - Social history:: Smoking status: Patient denies any tobacco usage or history of. ROS: 09/08 00:10 Constitutional: Negative for fever, chills, and weight loss, Eyes: Negative for injury, mh7 pain, redness, and discharge, ENT: Negative for injury, pain, and discharge, Neck: Negative for injury, pain, and swelling, Cardiovascular: Negative for chest pain, palpitations, and edema, Respiratory: Negative for shortness of breath, cough, wheezing, and pleuritic chest pain, Back: Negative for injury and pain, : Negative for injury, bleeding, discharge, and swelling, MS/Extremity: Negative for injury and deformity, Skin: Negative for injury, rash, and discoloration, Neuro: Negative for headache, weakness, numbness, tingling, and seizure, Psych: Negative for depression, anxiety, suicide ideation, homicidal ideation, and hallucinations, Allergy/Immunology: Negative for hives, rash, and allergies, Endocrine: Negative for neck swelling, polydipsia, polyuria, polyphagia, and marked weight changes, Hematologic/Lymphatic: Negative for swollen nodes, abnormal bleeding, and unusual bruising. Exam: 00:10 Constitutional: This is a well developed, well nourished patient who is awake, alert, mh7 and in no acute distress. Head/Face: Normocephalic, atraumatic. Eyes: Pupils equal round and reactive to light, extra-ocular motions intact. Lids and lashes normal. Conjunctiva and sclera are non-icteric and not injected. Cornea within normal limits. Periorbital areas with no swelling, redness, or edema. ENT: Nares patent. No nasal discharge, no septal abnormalities noted. Tympanic membranes are normal and external auditory canals are clear. Oropharynx with no redness, swelling, or masses, exudates, or evidence of obstruction, uvula midline. Mucous membranes moist. Neck: Trachea midline, no thyromegaly or masses palpated, and no cervical lymphadenopathy. Supple, full range of motion without nuchal rigidity, or vertebral point tenderness. No Meningismus. Chest/axilla: Normal chest wall appearance and motion. Nontender with no deformity. No lesions are appreciated. Cardiovascular: Regular rate and rhythm with a normal S1 and S2. No gallops, murmurs, or rubs. Normal PMI, no JVD. No pulse deficits. Respiratory: Lungs have equal breath sounds bilaterally, clear to auscultation and percussion. No rales, rhonchi or wheezes noted. No increased work of breathing, no retractions or nasal flaring. Abdomen/GI: Soft, non-tender, with normal bowel sounds. No distension or tympany. No guarding or rebound. No evidence of tenderness throughout. Back: No spinal tenderness. No costovertebral tenderness. Full range of motion. Skin: Warm, dry with normal turgor. Normal color with no rashes, no lesions, and no evidence of cellulitis. MS/ Extremity: Pulses equal, no cyanosis. Neurovascular intact. Full, normal range of motion. Neuro: Awake and alert, GCS 15, oriented to person, place, time, and situation. Cranial nerves II-XII grossly intact. Motor strength 5/5 in all extremities. Sensory grossly intact. Cerebellar exam normal. Normal gait. Psych: Awake, alert, with orientation to person, place and time. Behavior, mood, and affect are within normal limits. Vital Signs: 09/07 20:40 BP 118 / 82; Pulse 73; Resp 16 S; Temp 98.2(TE); Pulse Ox 100% on R/A; Weight 77.11 kg ca1 (R); Height 5 ft. 4 in. (162.56 cm) (R); 09/08 01:15 BP 138 / 82; Pulse 80; Resp 16; Pulse Ox 100% on R/A; jb4 02:30 BP 149 / 86; Pulse 66; Resp 16; Pulse Ox 100% on R/A; jb4 03:00 BP 127 / 81; Pulse 63; Resp 16; Pulse Ox 99% on R/A; jb4 04:00 BP 102 / 75; Pulse 70; Resp 16; Pulse Ox 100% on R/A; jb4 09/07 20:40 Body Mass Index 29.18 (77.11 kg, 162.56 cm) ca1 MDM: 00:09 Patient medically screened. [facility] 04:07 Differential diagnosis: gastritis, pancreatitis, Hyperemesis Gravidarum. Data reviewed: [facility] vital signs, nurses notes, old medical records, lab test result(s), CBC, electrolytes, urinalysis. Data interpreted: Pulse oximetry: on room air is 99 %. Interpretation: normal. Counseling: I had a detailed discussion with the patient and/or guardian regarding: the historical points, exam findings, and any diagnostic results supporting the discharge/admit diagnosis, lab results, the need for outpatient follow up, to return to the emergency department if symptoms worsen or persist or if there are any questions or concerns that arise at home. Response to treatment: the patient's symptoms have resolved after treatment, the patient's blood pressure is in an acceptable range, mental status has returned to baseline, the patient no longer shows bradycardia, the patient is not short of breath, the patient is not tachycardic, the patient's pain is gone, the patient's temperature has normalized. 09/08 00:07 Order name: Basic Metabolic Panel; Complete Time: 01:20 [facility] 09/08 00:07 Order name: CBC with Diff; Complete Time: 01:20 [facility] 09/08 00:07 Order name: Hepatic Function; Complete Time: :20 09/08 00:07 Order name: Lipase; Complete Time: :20 09/08 00:07 Order name: IV Saline Lock; Complete Time: 01:04 09/08 00:07 Order name: Labs collected and sent; Complete Time: 01:04 [facility] 09/08 03:44 Order name: PO challenge; Complete Time: 03:44 jb4 Administered Medications: 01:00 Drug: Phenergan 12.5 mg Route: IVP; Site: right antecubital; jb4 02:04 Follow up: Response: No adverse reaction; Nausea unchanged; Vomiting unchanged jb4 01:00 Drug: Pepcid 20 mg Route: IVP; Site: right antecubital; jb4 02:04 Follow up: Response: No adverse reaction jb4 01:03 Drug: NS 0.9% 1000 ml Route: IV; Rate: 1000 ml; Site: right antecubital; jb4 04:17 Follow up: IV Status: Completed infusion jb4 02:07 Drug: Phenergan 12.5 mg Route: IVP; Site: right antecubital; jb4 02:40 Follow up: Response: No adverse reaction; Nausea is decreased jb4 02:12 Drug: D5-NS 1000 ml Route: IV; Rate: bolus; Site: right antecubital; jb4 04:17 Follow up: Response: No adverse reaction; IV Status: Completed infusion jb4 02:24 Drug: Benadryl 25 mg Route: IVP; Site: right antecubital; jb4 02:40 Follow up: Response: No adverse reaction; Nausea is decreased jb4 03:17 Drug: Zofran (Ondansetron) 2 mg Route: IVP; Site: right antecubital; jb4 03:44 Follow up: Response: No adverse reaction; Nausea is decreased; Vomiting decreased jb4 03:43 Drug: GI Cocktail without - (Maalox Suspension 30 ml, Lidocaine Liquid 2 % 15 jb4 ml) Route: PO; 03:52 Follow up: Response: No adverse reaction; Marked relief of symptoms jb4 Disposition: 09/08/20 04:10 Discharged to Home. Impression: Hyperemesis Gravidarum. - Condition is Stable. - Discharge Instructions: Hyperemesis Gravidarum, Eating Plan for Hyperemesis Gravidarum. - Prescriptions for Zofran ODT 4 mg Oral tablet,disintegrating - place 1 tablet by TRANSLINGUAL route every 8 hours As needed; 10 tablet. - Medication Reconciliation Form, Thank You Letter, Antibiotic Education, Prescription Opioid Use form. - Follow up: Private Physician; When: Tomorrow; Reason: Worsening of condition, Recheck today's complaints, Continuance of care, Re-evaluation by your physician. - Problem is an ongoing problem. - Symptoms have improved. Signatures: Dispatcher [employer] EDMS Floyd Cardenas RN RN jb4 Mora Duenas RN RN ca1 Holmes, Maurice, MD MD 7 Corrections: (The following items were deleted from the chart) 04:17 00:07 Urine Dipstick-Ancillary ordered. 7 jb4 04:18 04:10 09/08/2020 04:10 Discharged to Home. Impression: Hyperemesis Gravidarum. jb4 Condition is Stable. Forms are Medication Reconciliation Form, Thank You Letter, Antibiotic Education, Prescription Opioid Use. Follow up: Private Physician; When: Tomorrow; Reason: Worsening of condition, Recheck today's complaints, Continuance of care, Re-evaluation by your physician. Problem is an ongoing problem. Symptoms have improved. 7
[2020-09-08 04:26] VITALS: TEMP 98.2
[2020-09-08 04:32] VITALS: BP 102/75; O2SAT 100
== END 2020-09-08 04:18 | disposition home or self-care (01) ==
LOC: ER 19:58
DX: O21.0 Mild hyperemesis gravidarum (principal); Z88.6 Allergy status to analgesic agent; Z91.018 Allergy to other foods
CPT/HCPCS: 96361; 85025; 80048; 36415; 80076; 83690; 96375; 96374; 99284; J2550 ×2; J1200; J7042; J7030; J2405

== ENCOUNTER 2020-09-09 09:18 | Emergency (ER) | payer MEDICAID, OTHER ==
--- OUTSIDE RECORDS SUMMARY | 2020-09-09 09:20 | XMS REPORT | Continuity of Care Document ---
:1990 Author Organization [facility] t Address [address] [place] [address] Care Team Providers Name Role Phone Fernandez Lauren WELLINGTON Attending Clinician Problems This patient has no known problems. Allergies, Adverse Reactions, Alerts This patient has no known allergies or adverse reactions. Medications This patient has no known medications. Procedures This patient has no known procedures. Encounters Start End Encounter Admission Attending Care Care Encounter Source Date/Time Date/Time Type Type Clinicians Facility Department ID 2020-09-08 2020-09-08 [id number] 10:23:36 11:14:26 Cornelius Aguilar MAINTENANCE SHOP WELDER [id number] Visit REGIONAL [id number] MATERNAL [id number] & CHILD 107 [facility] 2020-09-07 2020-09-07 Telephone Fernandez [facility] [id number] 00:00:00 00:00:00 Cornelius R MAINTENANCE SHOP WELDER [id number] REGIONAL [id number] MATERNAL [id number] & CHILD 107 [facility] Results This patient has no known results.
--- OUTSIDE RECORDS SUMMARY | 2020-09-09 09:24 | XMS REPORT | Summary of Care ---
:1990 Author Organization [facility] Address [address] [place] [address] Care Team Providers Name Role Phone Manjit E Insurance Hmo Lauren Fernandez [facility] Primary Care Provider Reason for Visit Reason Comments Assessment wanting to terminate pregnan cy Encounter Details Date Type Department Care Team Description 08/26/2020 Telephone [facility]- Cornelius Fernandez, As sessment (wanting to [facility] terminate ) [address] [facility] [address] [place] [address] [place] [phone] [phone] Allergies Active Allergy Reactions Severity Noted Date Comments Ibuprofen Hives 04/15/2014 Story Hives 04/15/2014 Sodium Citrate (Bulk) Nausea and/or Vomiting 9 documented as of this encounter (statuses as of 08/26/2020) Medications Medication Sig Dispensed Refills Start Date End Date Status ondansetron HCl Take by mouth. 0 Active (ZOFRAN ORAL) vit Take 1 Packet by 30 Each 6 08/03/2020 Active 53-cqak-xbfwg-dha mouth daily. 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 Manager Progressive Care Utility Encounter for IUD removal and reinsertion [...] management 01/25/2015 05/20/2018 Overview: ICD10 Diagnosis Term Manager Progressive Care Utility Breast tenderness in female 01/25/2015 05/20/2018 Not immune to rubella 04/16/2014 06/04/2016 Overview: ICD10 Diagnosis Term Manager Progressive Care Utility documented as of this encounter (statuses [...] 08/31/2020 Routine Visit OB Satellites Lauren Fernandez, ACCOUNT SERVICES COORDINATOR [address] [place] [address] 15 [phone] Health Maintenance Due Date Last Done Comments [...] Address T ype Group Dates ASIA BETANCOURT [id number] 2018-Anupama [address] Medic [place] [id number] MANA[place]ED [place] documented as of this encounter Advance Directives Type Date Recorded 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
--- OUTSIDE RECORDS SUMMARY | 2020-09-09 09:25 | XMS REPORT | Summary of Care ---
:1990 Author Organization [facility] Address [address] [place] [address] Care Team Providers Name Role Phone Gamal Saravia Insurance Hmo Lauren Fernandez Primary Care Provider Reason for Referral (Routine) Status Reason Specialty Diagnoses / Referred By Referred To Procedures Contact Contact New Request OG-OBSTETRICS & Diagnoses Nausea and vomiting during Aufderheide, Leann GYNECOLOGY Procedures Discharge Follow-Up: Specialty Service OG-OBSTETRICS & GYNECOLOGY; 3-5 Days MD Merna [address] [place] [address]. [place] [address] Reason for Visit Reason Comments Abdominal Pain Vomiting Auth/Cert Status Reason Specialty Diagnoses / Referred By Referred To Procedures Contact Contact Emergency Medicine [facility] rgency Dept [address] [place] [phone] Fax: Encounter Details Date Type Department Care Team Description 08/28/2020 - Emergency [facility] Monika Allen MD [address] [place] [phone] Abdominal pain during in first trimester (Primary Dx); 08/29/2020 Department Anthonyerjessi, Leann Bauman MD [address] [place] [phone] Nausea and vomiting during [address] [place] [phone] Allergies Active Allergy Reactions Severity Noted Date Comments Ibuprofen Hives 04/15/2014 [place] Hives 04/15/2014 Sodium Citrate (Bulk) Nausea and/or Vomiting 9 documented as of this encounter (statuses as of 08/29/2020) Medications Medication Sig Dispensed Refills Start Date End Date Status ondansetron HCl Take by mouth. 0 Active (ZOFRAN ORAL) vit Take 1 Packet by 30 Each 6 08/03/2020 Active 66-jmtz-pjyhp-dha mouth daily. 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 SCHEDULE AN APPOINTMENT ONLINE AT [email or web address] 2. OR CALL THE [facility] [...] site, catheter intact. Patient ambulatory to the [facility] accompanied by visitors x2, in possession [...] - 08/28/2020 11:47 PM CDT[facility] Nurse Note - Ada Buhs RN - 08/28/2020 11:46 PM CDTReceived report [...] cough, SOB. . Patient was seen in [place] for same complaint, patient's s/o states "they [...] 08/31/2020 Routine Visit OB Satellites Lauren Fernandez, FORM LAYER [address] [address] 15 [phone] Health Maintenance Due Date Last Done Comments [...] Abdominal pain Re sults for this PANEL (91993) CDT [facility] (ALB,T.PRO,BILI first trimester the resul ts T,BU/BC,ALT,AST,ALK section. PHOS) documented in this encounter Results Urinalysis (08/29/2020 12:26 AM CDT) Pathologist Sig nature APPEARANCE Clear Clear [facility] COLOR Trudi (A) Yellow [facility] PH 7.0 4.8 - 8.0 [facility] SP GRAVITY 1.030 1.003 - 1.030 [facility] GLU U QUAL Normal Normal [facility] BLOOD Negative Negative [facility] KETONES 80 mg/dL (A) Negative [facility] PROTEIN 30 mg/dL (A) Negative [facility] UROBILIN 2.0 mg/dL (A) Normal [facility] BILIRUBIN Negative Negative [facility] NITRITE Negative Negative [facility] LEUK HO Negative Negative [facility] RBC/HPF 3 0 - 3 HPF [facility] WBC/HPF 3 0 - 5 HPF [facility] BACTERIA Negative Negative [facility] MUCOUS Marked (A) Negative LPF [facility] SQ EPITH 4 (H) <=2 HPF [facility] Specimen Urine - URINE, CLEAN CATCH Performing Organization Address City/State/Zipcode Phone Number [facility] CLIA: [id number] [place], [place] [address] [address] [place], [place] [address]vd TOTAL BHCG (QUANTITATIVE) (08/28/2020 10:08 PM CDT) Pathologist Sig nature BETA HCG 140,720.00 Non- female [facility] and male patients: SERVICES <5 mIU/mL Specimen Blood - VENOUS Narrative Performed At [facility] Gestational Age Rang e (mIU/mL) 1-10 Weeks 4 [phone] 11-15 Weeks 11 [phone] 16-22 Weeks 74 [phone] 23-40 Weeks 15 [phone] Biotin has been reported to cause a negative bias, int erpret results relative to patient's use of biotin. Performing Organization Address City/[facility] Cent[facility] Phone Number [facility] CLIA: [id number] [place] [address] [place] [address] Hepatic Function Panel (ALB, T.PRO, BILI T, [...] Specimen Blood - VENOUS Performing Organization Address City/[facility]/Zipcode Phone Number [facility] CLIA: [id number] [place] [address] [place] [address] Basic Metabolic Panel (NA, K, CL, CO2, [...] 149.3 mL/min/1.73m2 [facility] (Non- SERVICES Guatemalan) eGFR Calculation 181.0 mL/min/1.73m2 [facility] [...] Phone Number [facility] CLIA: [id number] [place] [address] [place] [address] CBC with Differential (08/28/2020 10:08 PM CDT) Pathologist Sig nature WBC 8.57 4.30 - 11.10 [facility] 10*3/L SERVICES RBC 4.62 3.93 - 5.25 [facility] 10*6/L SERVICES HGB 14.5 11.6 - 15.0 [facility] g/dL SERVICES HCT 40.7 35.7 - 45.2 % [facility] MCV 88.1 80.6 - 95.5 fL [facility] MCH 31.4 25.9 - 32.8 pg [facility] MCHC 35.6 (H) 31.6 - 35.1 [facility] g/dL SERVICES RDW-SD 38.5 (L) 39.0 - 49.9 fL [facility] RDW-CV 12.0 12.0 - 15.5 % [facility] PLT 187 166 - 358 [facility] 10*3/L SERVICES MPV 9.8 9.5 - 12.9 fL [facility] NRBC/100 WBC 0.0 0.0 - [...] Phone Number [facility] CLIA: [id number] [place] [address] [place] [address] documented in this encounter Visit Diagnoses Diagnosis [...] / Subscriber ID Effective Phone Address [facility] [employer] Dates ASIA BETANCOURT [id number] 2018-Anupama [address] Medic aid [place] [id number] [place] documented as of this encounter Advance Directives Type Date Recorded 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
--- OUTSIDE RECORDS SUMMARY | 2020-09-09 09:26 | XMS REPORT | Summary of Care ---
:1990 Author Organization [facility] Address [address] [place] [address] Care Team Providers Name Role Phone Gamal Saravia Insurance Hmo Lauren Fernandez SERVICE STATION CASHIER Primary Care Provider Reason for Visit Reason Comments Assessment vomit Encounter Details Date Type Department Care Team Description 09/06/2020 Telephone [facility]- Cornelius Fernandez, As sessment (vomit) [facility] [address] [facility] [address] [place] [address] [place] [address] [phone] Allergies Active Allergy Reactions Severity Noted Date Comments Ibuprofen Hives 04/15/2014 [place] Hives 04/15/2014 Sodium Citrate (Bulk) Nausea and/or Vomiting 9 documented as of this encounter (statuses as of 09/06/2020) Medications Medication Sig Dispensed Refills Start End Date Status Date vit Take 1 Packet by 30 Each 6 Active 44-igok-zdlmc-dha mouth daily. 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 Mobility Engineer Utility Encounter for IUD removal and reinsertion 01/18/2015 ASCUS on Pap smear 04/15/2014 Estimated Date of Delivery Comments Yes 04/11/2021 Based on Ultrasound, FHT: 127, Transverse Presentation, Placen ta Too early to evaulate documented as of this encounter (statuses as of 09/06/2020) Resolved Problems Problem Noted Date Resolved Date 37 weeks gestation of 12/18/2018 01/08/20 19 [place] Hick's contraction 12/12/2018 01/08/2019 Abnormal maternal glucose [...] management 01/25/2015 05/20/2018 Overview: ICD10 Diagnosis Term Mobility Engineer Utility Breast tenderness in female 01/25/2015 05/20/2018 Not immune to rubella 04/16/2014 06/04/2016 Overview: ICD10 Diagnosis Term Mobility Engineer Utility documented as of this encounter [...] old female Patient stated she went to [facility] for N/V and has [...] has been loosing weight , please call [phone] (home) documented in this encounter Plan of Treatment Date Type Specialty Care Team Description 09/08/2020 Routine Visit OB Satellites Lauren Fernandez, SERVICE STATION CASHIER [address] [address] 15 [phone] Health Maintenance Due Date Last Done Comments [...] Address T e Group Dates ASIA BETANCOURT [id number] 2018-Anupama Camacho [address] Medic [place] [id number] MA[place]ED [place] documented as of this encounter Advance Directives Type Date Recorded Patient License Clerk Explanati on Advance Directives and Living Will Power of Marine Designer Name Relationship Healthcare Agent Relationship Co mmunication Floyd Brown Father Health Care Agent Preet Coffey Other Health Care Agent [place] Fuentes Spouse [facility] Care Agent (Mobile)
--- OUTSIDE RECORDS SUMMARY | 2020-09-09 09:26 | XMS REPORT | Summary of Care ---
:[address] [facility] Address [address] [place] [address] Care Team Providers Name Role Phone Gamal Saravia Insurance Hmo Lauren Fernandez RUBBER MILL TENDER Primary Care Provider Reason for Visit Reason Comments Assessment vomit Encounter Details Date Type Department Care Team Description 09/06/2020 Telephone [facility]- Cornelius Fernandez, As sessment (vomit) [facility] [address] [facility] [address] [place] [address] [place] [address] [phone] Allergies Active Allergy Reactions Severity Noted Date Comments Ibuprofen Hives 04/15/2014 [place] Hives 04/15/2014 Sodium Citrate (Bulk) Nausea and/or Vomiting 9 documented as of this encounter (statuses as of 09/06/2020) Medications Medication Sig Dispensed Refills Start Date End Date Status vit Take 1 Packet by 30 Each 6 08/03/2020 Active 52-kvrq-qypsy-dha mouth daily. 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 Nut Tapper Utility Encounter for IUD removal and reinsertion [...] management 01/25/2015 05/20/2018 Overview: ICD10 Diagnosis Term Nut Tapper Utility Breast tenderness in female 01/25/2015 05/20/2018 Not immune to rubella 04/16/2014 06/04/2016 Overview: ICD10 Diagnosis Term Nut Tapper Utility documented as of this encounter (statuses [...] old female Patient stated she went to [facility] [place] [place] 08/28/20 for N/V and has received fluids [...] has been loosing weight , please call [phone] (home) documented in this encounter Plan of Treatment Date Type Specialty Care Team Description 09/08/2020 Routine Visit OB Satellites Lauren Fernandez FNP [address] [address] [phone] Health Maintenance Due Date Last Done Comments [...] Address T e Group Dates ASIA BETANCOURT [id number] 2018-Anuapma P O BOX [place] [address] [place]ED [place] documented as of this encounter Advance Directives Type Date Recorded 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
--- OUTSIDE RECORDS SUMMARY | 2020-09-09 09:26 | XMS REPORT | Summary of Care ---
:1990 Author Organization [facility] Address [address] [place] [address] Care Team Providers Name Role Phone Gamal Saravia Insurance Hmo Lauren Fernandez VENTURE CAPITAL ANALYST Primary Care Provider Reason for Visit Reason Comments Assessment vomit Encounter Details Date Type Department Care Team Description 09/06/2020 Telephone [facility]- Cornelius Fernandez, As sessment (vomit) [facility] [address] [facility] [place] [address] [place] [address] [place] [address] [phone] Allergies Active Allergy Reactions Severity Noted Date Comments Ibuprofen Hives 04/15/2014 [place] Hives 04/15/2014 Sodium Citrate (Bulk) Nausea and/or Vomiting 9 documented as of this encounter (statuses as of 09/06/2020) Medications Medication Sig Dispensed Refills Start Date End Date Status vit Take 1 Packet by 30 Each 6 08/03/2020 Active 31-aqpe-tteqd-dha mouth daily. 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 Drink Mixer Utility Encounter for IUD removal and reinsertion [...] management 01/25/2015 05/20/2018 Overview: ICD10 Diagnosis Term Drink Mixer Utility Breast tenderness in female 01/25/2015 05/20/2018 Not immune to rubella 04/16/2014 06/04/2016 Overview: ICD10 Diagnosis Term Drink Mixer Utility documented as of this encounter (statuses [...] old female Patient stated she went to [facility] 08/28/20 for N/V and has received fluids [...] has been loosing weight , please call [phone] (home) documented in this encounter Plan of Treatment Date Type Specialty Care Team Description 09/08/2020 Routine Visit OB Satellites Lauren Fernandez FNP [address] [address] [phone] Health Maintenance Due Date Last Done Comments [...] Address T e Group Dates ASIA BETANCOURT [id number] 2018-Anupama P O BOX Medic [place] [phone] [place] documented as of this encounter Advance Directives Type Date Recorded Patient Quarter Backer Explanati on Advance Directives and Living Will Power of Orthopedic Nurse Name Relationship Healthcare Agent Relationship Co mmunication Floyd Brown Father Health Care Agent Preet Coffey Other Health Care Agent [place] Fuentes Spouse First [facility] Health Care Agent (Mobile)
--- OUTSIDE RECORDS SUMMARY | 2020-09-09 09:26 | XMS REPORT | Summary of Care ---
:1990 Author Organization [facility] Address [address] [place] [address] Care Team Providers Name Role Phone Gamal Saravia Insurance Hmo Lauren Fernandez Primary Care Provider Reason for Referral (Routine) Status Reason Specialty Diagnoses / Referred By Referred To Procedures Contact Contact New Request Diagnoses Hyperemesis gravidarum Marisel Galvan, Procedures Discharge Follow-Up: Linter Operator Lorena FRANKLIN [address] [place], [place] [id number] Reason for Visit Auth/Cert Status Reason Specialty Diagnoses / Procedures Referred By Lauren marquez To Contact Contact Obstetrics Diagnoses 7wks IUP hyperemesis J10c [address] [place] [phone] Phone: Fax: Encounter Details Date Type Department Care Team Description 08/30/2020 - Hospital Encounter Obstetrics and Jad Isaacs ea and vomiting 09/01/2020 Gynecology (J10C) MD Tyler during [address] [place] [address] [phone] Allergies Active Allergy Reactions Severity Noted Date Comments Ibuprofen Hives 04/15/2014 [place] Hives 04/15/2014 Sodium Citrate (Bulk) Nausea and/or Vomiting 9 documented as of this encounter (statuses as of 09/01/2020) Medications Medication Sig Dispensed Refills Start End Date Status Date vit Take 1 Packet by 30 Each 6 Active 37-mhma-rpowg-dha mouth daily. 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 Graphic Arts Instructor Utility Encounter for IUD removal and reinsertion 01/18/2015 ASCUS on Pap smear 04/15/2014 Estimated Date of Delivery Comments Yes 04/11/2021 Based on Ultrasound, FHT: 127, Transverse Presentation, Placen ta Too early to evaulate documented as of this encounter (statuses as of 09/01/2020) Resolved Problems Problem Noted Date Resolved Date 37 weeks gestation of 12/18/2018 01/08/20 19 [place] Hick's contraction 12/12/2018 01/08/2019 Abnormal maternal glucose [...] management 01/25/2015 05/20/2018 Overview: ICD10 Diagnosis Term Graphic Arts Instructor Utility Breast tenderness in female 01/25/2015 05/20/2018 Not immune to rubella 04/16/2014 06/04/2016 Overview: ICD10 Diagnosis Term Graphic Arts Instructor Utility documented as of this encounter [...] cannot be sent through Care Everywhere. Diet, Melissa (Adult) (Vincentian)documented in this encounter Progress Notes Major Velasquez [...] mL IV piggyback 25 mg IV Piggyback [id number] mg at 09/01/20 0552 pyridoxine (VITAMIN B-6) [...] 08/28/2020 21 No results found for: URICACID, [id number] No results found for: LDH Assessment/Plan: Suraj [...] tolerate PO for over 2 days - [place] ED Course: s/p 2L NS bolus, IV 4mg zofran, 12.5 benadryl, 20mg Pepcid, 12.5 phenergan, refused second phenergan dose so given Reglan 10mg, 20mEq KCLrepletion - OSH labs remarkable for K 3.2, Cr 0.72, LFT WNL, lipase 59, Udip with 2+ ketone -Patient reports severe nausea, dry heaving noted in triage - Upon transfer to [facility], P 80s, BP 120/60s - [...] presentation at 37w - Documented LTCS at [facility] - Desires possible Hx PTD - G1 at 34w - G2 at 36w COVID-19 SCREEN: Lab Results Component Value Date/Time COVID19 Not Detected 08/30/2020 11:37 PM Antepartum course reviewed - seronegative, Rnot immune, VZVnot immune,A positive/IATnegative, GBSunk, PapASCUS 11/2017, neg HRHPV, needs repeat cotesting in 3 years - H/H, plt:14.5/ 40.7,187on 08/28/20 -[facility] - [id number] bpm via M mode on admission BSUS Major Velasquez MD 09/01/2020 Associated attestation - Marisel Galvan MD - 09/01/2020 10:40 AM CDT I was rounding [facility] faculty for this patient and was [...] presentation at 37w - Documented LTCS at [facility] - Desires possible Hx PTD - G1 at 34w - G2 at 36w COVID-19 SCREEN: Lab Results Component Value Date/Time COVID19 Not Detected 08/30/2020 11:37 PM Antepartum course reviewed - sero negative, Rnot immune, VZVnot immune, A positive/IAT negative, GBS unk, Pap ASCUS 11/2017, negHRHPV, needs repeat cotesting in 3 years - H/H, plt: 14.5 / 40.7, 187 on 08/28/20 - [facility] - FHT 171-178 bpm via M mode on admission BSUS Major Velasquez MD - 08/31/2020 1:15 PM CDTJamiee Luly Fuentes [id number] 08/31/2020 1:15 PM Post-Rounds: - daily BMP - will collect UA - NPO - D5LR - Monitor UOP - will start on protonix Major Velsaquez MD OBGYN PGY3 08/31/2020 documented in this encounter H&P Notes Kim Hunter MD - 08/31/2020 12:15 AM CDT TRIAGE/L&D HISTORY & PHYSICAL IDENTIFYING DATA Suraj Fuentes is 29 year old, /White, 8w0d, female with DYLAN 04/11/2021, by Ultrasound. : 1990 Primary Care Physician: Cornelius Fernandez CHIEF COMPLAINT Transfer from [facility] ED HISTORY OF PRESENT ILLNESS Suraj Fuentes is a 29 year old at 8w0d who was transferred from [facility] ED for nausea and vomiting during [...] for over 2 days. She went to [place] ED earlier this week (3-4 days ago), then presented to [facility] ED Saturday night.She was given 1L bolus, IV zofran, IV phenergan, and reglan, PO challenged with water/crackers, thensent home with renewed eRx vitamin B6. Reports PO zofran and Reglan not helping right now, therefore [facility] Course: Afebrile, Pulse 71-86, BP 110-130/60-80s [...] Manny Gray; Location: Labor and Delivery - [place] Past Medical History: Diagnosis Date Abnormal maternal [...] Oral Q6H Allergies and drug reactions: Ibuprofen, [place], and Sodium citrate (bulk) HOME MEDICATIONS Medications [...] (ZOFRAN ORAL) Take by mouth. 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 Resolved Hospital Problems No resolved problems [...] tolerate PO for over 2 days - [place] ED Course: s/p 2L NS bolus, IV 4mg zofran, 12.5 benadryl, 20mg Pepcid, 12.5 phenergan, refused second phenergan dose so given Reglan 10mg, 20mEq KCL repletion - OSH labs remarkable for K 3.2, Cr 0.72, LFT WNL, lipase 59, Udip with 2+ ketone - Patient reports severe nausea, dry heaving noted at bedside - Upon transfer to [facility], P 80s, BP 120/60s - [...] presentation at 37w - Documented LTCS at [facility] - Desires possible Hx PTD - G1 at 34w - G2 at 36w COVID-19 SCREEN: Lab Results Component Value Date/Time COVID19 Not Detected 08/30/2020 11:37 PM Antepartum course reviewed - sero negative, Rnot immune, VZVnot immune, A positive/IAT negative, GBS unk, Pap ASCUS 11/2017, negHRHPV, needs repeat cotesting in 3 years - H/H, plt: 14.5 / 40.7, 187 on [facility] F[facility] 171-178 bpm via [...] - 08/31/2020 5:02 PM CDTFood Allergy and Cultural/Voodoo Food Preferences Consult Note: Spoke with patient's nurse today over the phone. Per nurse, patient with food allergy to oranges. Per allergy list patient with hives as reported reaction. Please see confirmed food allergy below. Confirmed Food Allergy: 1. [place] Reaction:Hives Confirmed Cultural Food Preferences: 1. None Confirmed Voodoo Food Preferences: 1. None Kary Coppola MS, RD, LD Clinical Dietitian RD Office: [phone] documented in this encounter Miscellaneous Notes Care [...] Progressing as expected are Plan - Wendy Aaln RN - 09/01/2020 7:53 AM CDT Problem: [...] 09/08/2020 Routine Visit OB Satellites Lauren Fernandez, SPECIAL AGENT SECRET SERVICE [address] [address] [phone] Name Type Priority Associated Diagnoses Order S [...] AM CDT) NA 135 135 - 145 [facility] mmol/L SERVICES K 3.6 3.5 - 5.0 [facility] mmol/L SERVICES CL 106 98 - 108 mmol/L [facility] SERVICES CO2 TOTAL 21 (L) 23 - 31 mmol/L [facility] AGAP 8 2 - 16 [facility] BUN 3 (L) 7 - 23 mg/dL [facility] GLUCOSE 106 70 - 110 mg/dL [facility] SERVICES CREATININE 0.46 (L) 0.50 - 1.04 [facility] mg/dL SERVICES CALCIUM 8.6 8.6 - 10.6 [facility] mg/dL SERVICES eGFR Calculation 160.6 mL/min/1.73m2 [facility] (Non- SERVICES Albanian) eGFR Calculation 194.7 mL/min/1.73m2 [facility] () SERVICES Specimen Blood - VENOUS Narrative Performed At Association of Glomerular Filtration Rate (GFR) and St aging [facility] SERVICES of Kidney Disease* [...] in imaging tests) . Performing Organization Address City/[facility] Phone Number [facility] CLIA: [id number] [place], [place] [address] [address] [place] [address] URINALYSIS (08/31/2020 4:07 PM CDT) Pathologist Sig [...] - URINE, CLEAN CATCH Performing Organization Address [facility] Phone Number [facility] CLIA: [id number] [place] [address] [place] [address] Type and Screen - ONCE Routine (08/31/2020 12:23 AM CDT) Pathologist [facility] ABO & RH A POSITIVE LAB Comment: Performed at [facility] Laboratory Services - [facility] Blood Bank [address] [place] [address] Toll Free: [phone] CLIA No. [id number] IAT Negative LAB Comment: Performed at [facility] Laboratory Services - [facility] Blood Bank [address] [place] [address] Toll Free: [phone] CLIA No. [id number] Specimen Blood - VENOUS Performing Organization Address City/[facility] Phone Number [facility] BASIC METABOLIC PANEL (NA, K, CL, CO2, GLUCOSE, BUN, CREATININE, CA) (08/31/2020 12:17 AM CDT) [facility] NA 134 (L) 135 - 145 [facility] mmol/L SERVICES K 3.8 3.5 - 5.0 [facility] mmol/L SERVICES CL 104 98 - 108 mmol/L [facility] SERVICES CO2 TOTAL 22 (L) 23 - 31 mmol/L [facility] SERVICES AGAP 8 2 - 16 [facility] SERVICES BUN <2 (L) 7 - 23 mg/dL [facility] SERVICES GLUCOSE 87 70 - 110 mg/dL [facility] SERVICES CREATININE 0.50 0.50 - 1.04 [facility] mg/dL SERVICES CALCIUM 8.8 8.6 - 10.6 [facility] mg/dL SERVICES eGFR Calculation 145.9 mL/min/1.73m2 [facility] (Non- SERVICES Albanian) eGFR Calculation 176.8 mL/min/1.73m2 [facility] () SERVICES Specimen Blood - VENOUS Narrative Performed At Association of Glomerular Filtration Rate (GFR) and St aging [facility] SERVICES of Kidney Disease* [...] in imaging tests) . Performing Organization Address City/[facility]/Zipcode Phone Number [facility] CLIA: [id number] [place] [address] [place] [address] COVID-19 (ID NOW RAPID TESTING) (08/30/2020 11:37 PM CDT) SARS-CoV-2 Rapid ID Not Detected Not Detected [facility] NOW SERVICES Specimen Swab - NASOPHARYNGEAL SWAB Narrative Performed At [facility] NOW COVID-19 Assay is an isothermal nucleic acid [facility] SERVICES amplification test intended for the qualitative detect ion of nucleic acid from SARS-CoV-2 viral RNA in nasopharynge al (ENVIRONMENTAL STUDIES PROGRAM DIRECTOR) specimens. It is used under Emergency Use [...] indicated. Performing Organization Address City/State/Zipcode Phone Number [facility] CLIA: [id number] [place] [address] [phone] [address] [facility] URINALYSIS (08/30/2020 10:44 PM CDT) Pathologist Sig nature APPEARANCE Clear Clear [facility] COLOR Yellow Yellow [facility] PH 7.0 4.8 - 8.0 [facility] SP GRAVITY 1.012 1.003 - 1.030 [facility] GLU U QUAL Normal Normal [facility] BLOOD Negative Negative [facility] KETONES 80 mg/dL (A) Negative [facility] PROTEIN Negative Negative [facility] UROBILIN Normal Normal [facility] BILIRUBIN Negative Negative [facility] NITRITE Negative Negative [facility] LEUK HO Negative Negative [facility] RBC/HPF 2 0 - 3 HPF [facility] WBC/HPF <1 0 - 5 HPF [facility] BACTERIA Negative Negative [facility] MUCOUS Slight (A) Negative LPF [facility] SQ EPITH 1 <=2 HPF [facility] ASCORBIC ACID Negative [facility] Specimen Urine - URINE, CLEAN CATCH Performing Organization Address City/State/Zipcode Phone Number [facility] CLIA: [id number] [place] [address] [place] [address] documented in this encounter Visit Diagnoses Diagnosis [...] mL/hr, 1,000 mL, Intravenous, ONCE, 1 dose, [facility] 08/30/20 at 2330, Routine potassium chloride 20 [...] Address T ype Group Dates ASIA BETANCOURT [id number] 2018-Anupama P O BOX Medic [place] [id number] MA[place]GED MED[place] documented as of this encounter Advance Directives Type Date Recorded 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
--- OUTSIDE RECORDS SUMMARY | 2020-09-09 09:27 | XMS REPORT | Summary of Care ---
:1990 Author Organization [facility] Address [address] [place] [address] Care Team Providers Name Role Phone Gamal Saravia Insurance Hmo Lauren Fernandez Primary Care Provider Reason for Visit Reason Comments Abdominal Pain Vomiting Auth/Cert Status Reason Specialty Diagnoses / Referred By Referred To Procedures Contact Contact Emergency Medicine Adc Em ergency Dept [address] [address] Fax: Encounter Details Date Type Department Care Team Description 09/07/2020 Emergency ADC-Emergency Depart ment Mary Carmen Jacobs, PAC [address] [facility] [address] maloney [address] [place] [address] [place] [address] [phone] Allergies Active Allergy Reactions Severity Noted Date Comments Ibuprofen Hives 04/15/2014 [place] Hives 04/15/2014 Sodium Citrate (Bulk) Nausea and/or Vomiting 9 documented as of this encounter (statuses as of 09/07/2020) Medications Medication Sig Dispensed Refills Start Date End Date Status vit Take 1 Packet by 30 Each 6 08/03/2020 Active 13-cavx-pynbn-dha mouth daily. 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 Carpet Tile Layer Utility Encounter for IUD removal and reinsertion [...] management 01/25/2015 05/20/2018 Overview: ICD10 Diagnosis Term Carpet Tile Layer Utility Breast tenderness in female 01/25/2015 05/20/2018 Not immune to rubella 04/16/2014 06/04/2016 Overview: ICD10 Diagnosis Term Carpet Tile Layer Utility documented as of this encounter (statuses [...] active vomiting noted. Also discussed contacting her conformal pad former for termination. Pt signed AMA form and walked out of ER without incident. Brenda frost RN - 09/07/2020 2:45 PM CDTPt upset with staff regarding visitor policy states, "She just needs an outpatient therapist. 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
--- OUTSIDE RECORDS SUMMARY | 2020-09-09 09:27 | XMS REPORT | Summary of Care ---
:1990 Author Organization [facility] Address [address] [place] [address] Care Team Providers Name Role Phone Gamal Saravia Insurance Hmo Lauren Fernandez BRAND COMMUNICATIONS MANAGER Primary Care Provider Reason for Visit Reason Comments Assessment vomit Encounter Details Date Type Department Care Team Description 09/06/[address] [facility]- Cornelius Fernandez, As sessment (vomit) [facility] [address] [facility] [address] [place] [address] [place] [address] [phone] Allergies Active Allergy Reactions Severity Noted Date Comments Ibuprofen Hives 04/15/2014 [place] Hives 04/15/2014 Sodium Citrate (Bulk) Nausea and/or Vomiting 9 documented as of this encounter (statuses as of 09/06/2020) Medications Medication Sig Dispensed Refills Start End Date Status Date vit Take 1 Packet by 30 Each 6 Active 97-mbvr-pmyrp-dha mouth daily. 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 Tactical/Mobile Watch Officer Utility Encounter for IUD removal and reinsertion 01/18/2015 ASCUS on Pap smear 04/15/2014 Estimated Date of Delivery Comments Yes 04/11/2021 Based on Ultrasound, FHT: 127, Transverse Presentation, Placen ta Too early to evaulate documented as of this encounter (statuses as of 09/06/2020) Resolved Problems Problem Noted Date Resolved Date 37 weeks gestation of 12/18/2018 01/08/20 19 [place] Hick's contraction 12/12/2018 01/08/2019 Abnormal maternal glucose [...] management 01/25/2015 05/20/2018 Overview: ICD10 Diagnosis Term Tactical/Mobile Watch Officer Utility Breast tenderness in female 01/25/2015 05/20/2018 Not immune to rubella 04/16/2014 06/04/2016 Overview: ICD10 Diagnosis Term Tactical/Mobile Watch Officer Utility documented as of this encounter (statuses [...] old female Patient stated she went to [facility] and was given a shot of phenergan. Patient stated she wasgiven Tylenol but vomited and is pain. Stated her is taking her to [facility]. informed patient to f/u after [...] female Patient stated she went to [facility] 08/28/20 for N/V and has received fluids [...] has been loosing weight , please call [phone] (home) documented in this encounter Plan of Treatment Date Type Specialty Care Team Description 09/08/2020 Routine Visit OB Satellites Lauren Fernandez FNP [address] [place], [place] [address] [phone] Health Maintenance Due Date Last Done Comments [...] Address T e Group Dates ASIA BETANCOURT [id number] 2018-Anupama Camacho O BOX Medic aid HEALTHCARE - [facility] [place] [phone] MANAGED MEDICA[place] documented as of this encounter Advance Directives Type Date Recorded 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
--- OUTSIDE RECORDS SUMMARY | 2020-09-09 09:28 | XMS REPORT | Summary of Care ---
:1990 Author Organization [facility] Address [address] [place] [address] Care Team Providers Name Role Phone Gamal Saravia Insurance Hmo Lauren Fernandez Primary Care Provider Reason for Visit Reason Comments ROUTINE VISIT (Routine) Status Reason Specialty Diagnoses / Referred By Referred To Procedures Contact Contact New Request OB Satellites Diagnoses Hyperemesis gravidarum Marisel Galvan, Procedures Discharge Follow-Up: Production Control Manager Lorena FRANKLIN [address] [facility] [id number] [place] [address] Encounter Details Date Type Department Care Team Description 09/08/2020 Routine [facility]- Cornelius Fernandez upervision of high risk in first trimester (Primary Dx); Visit ELIZ Holland Previous section complicating p regnancy; [address] [place] (vaginal after ) trial; [address]; [place], [place], [place] Nausea and vomi ting during ; [phone] Obesity in [phone] Allergies Active Allergy Reactions Severity Noted Date Comments Ibuprofen Hives 04/15/2014 [place] Hives 04/15/2014 Sodium Citrate (Bulk) Nausea and/or Vomiting 9 documented as of this encounter (statuses as of 09/08/2020) Medications Medication Sig Dispensed Refills Start Date End Date Status vit Take 1 Packet by 30 Each 6 08/03/2020 Active 46-jwxf-gmwig-dha mouth daily. 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 Sign Utility Encounter for IUD removal and reinsertion 01/18/2015 ASCUS on Pap smear 04/15/2014 Estimated Date of Delivery Comments Yes 04/11/2021 Based on Ultrasound, FHT: 127, Transverse Presentation, Placen ta Too early to evaulate documented as of this encounter (statuses as of 09/08/2020) Resolved Problems Problem Noted Date Resolved Date 37 weeks gestation of 12/18/2018 01/08/20 19 [place] Hick's contraction 12/12/2018 01/08/2019 Abnormal maternal glucose [...] management 01/25/2015 05/20/2018 Overview: ICD10 Diagnosis Term Painter Helper Sign Utility Breast tenderness in female 01/25/2015 05/20/2018 Not immune to rubella 04/16/2014 06/04/2016 Overview: ICD10 Diagnosis Term Painter Helper Sign Utility documented as of this encounter (statuses as of 09/08/2020) Immunizations Name Administration Dates Next Due HPV9 06/04/2016 MMR 12/20/2018 (Deferred: - not available f [facility]) TDAP 04/06/2015 TDAP (ADACEL) VACCINE [...] been in contact with No / Unsure 09/08/2020 10:28 AM CDT someone who was confirmed or suspected to have Coronavirus / COVID-19? documented as of this encounter Last Filed Vital Signs Vital Sign Reading Time Taken Comments Blood Pressure 131/79 09/08/2020 10:29 AM CDT Pulse 79 09/08/2020 10:29 AM CDT Temperature 37.1 C (98.8 F) 09/08/2020 10:29 AM CDT Respiratory Rate 16 09/08/2020 10:29 AM CDT Oxygen Saturation - - Inhaled Oxygen Concentration - - Weight 81.3 kg (179 lb 3.2 oz) 09/08/2020 10:29 AM CDT Height 162.6 cm (5' 4") 09/08/2020 10:29 AM CDT Body Mass Index 30.76 09/08/2020 10:29 AM CDT documented in this encounter Progress Notes Cornelius Fernandez, FUEL HOUSE ATTENDANT - 09/08/2020 10:45 AM CDT Chief complaint: Chief Complaint Patient presents with ROUTINE VISIT HPI CC: Follow Up Visit Suraj Fuentes is a 29 year old, , /White female. Patient's last menstrual period was 06/08/2020 (approximate). She is 9w2d with an intrauterine . Her estimated date of delivery is 04/11/2021, by Ultrasound. She went to [facility] ER for nausea and vomitin g, Zofran given She reports +FM and denies contractions, LOF and bleeding today. Patient denies current or past physical, sexual or emotional abuse. Histories OB History Para Term AB Living [...] Manny Gray; Location: Labor and Delivery - [place] Social History Socioeconomic History Marital status: Spouse [...] file Gets together: Not on file Attends baptism service: Not on file Active member of [...] sexual or emotional abuse. Only outside cats. Hinduism: None Patient lives with spouse and kids. Social History Substance and Sexual Activity Sexual Activity Yes Partners: Male Comment: last sexual intercourse 10/2018 Labs No new labs Radiology No new radiology. Allergies Suraj is allergic to ibuprofen; orange; and sodium citrate (bulk). Medications Suraj has a current medication list which includes the following prescription(s): doxylamine-pyridoxine (vit b6), prochlorperazine, pyridoxine (vitamin b-6), and select-ob + dha. Review of Systems Constitutional: Negative for activity change, appetite change, fatigue, unexpected weight change, weight gain and weight loss. HENT: Negative for sore throat. Eyes: Negative for visual disturbance. Respiratory: Negative for cough and shortness of breath. Breasts: Negative for discharge, mass, pain and unequal size. Cardiovascular: Negative for chest pain, palpitations and leg swelling. Gastrointestinal: Positive for nausea and vomiting. Negative for abdominal pain, anal bleeding, blood in stool, constipation, diarrhea and rectal pain. Genitourinary: Negative for bladder incontinence, dysuria, urgency, [...] intolerance, weight gain and weight loss. BP 131/79 (BP Location: Right arm, Patient Position: Sitting, BP CUFF SIZE: Adult Medium) | Pulse 79 | Temp 37.1 C (98.8 F) (Oral) | Resp 16 | Ht 5' 4" (1.626 m) | Wt 179 lb 3.2 oz (81.3 kg) | LMP 06/08/2020 (Approximate) | BMI 30.76 kg/m Pregravid BMI: 30.20 Physical Exam PHYSICAL: General Exam: Neurological: Normal Abdomen: Normal Extremities: Normal Pelvic Exam: Uterus: 10cm Weeks Assessment/Plan Supervision of high risk in first trimester (primary encounter diagnosis) Previous section complicating Desires (vaginal after ) trial Multiparity Comment: Routine Visit Plan: POCT URINALYSIS W SPECIFIC GRAVITY Denies zika virus risk, signs and symptoms such as fever,rash,joint pain, conjunctivitis (red eyes), muscle pain, headaches; outside [place] travel to areas affected by zika, and FOB exposure to zika. Educated on use of mosquito repellent. Covid x12 screening done, screening results are negative. Nausea and vomiting during Comment: see HPI Plan: patient educated to take medication as prescribed from ER. Patient informed to call clinic if needed. Obesity in Comment: BMI: 30.76 Plan: Patient encouraged to limit weight gain and advised to eat healthy diet, fruits, vegetables, increased fiber and water intake and protein low in fat. Encouraged exercise for 30 min everyday; begin regimen with caution to prevent injury. Encouraged to decrease BMI to <25. Patient educated onthe effects of chronic health problems of obesity on future pregnancies and/or intermediate health. Return to clinic in 4 weeks. Discussed treatment options. Medications as ordered. Reviewed patient instructions and provided printed copy. This visit did not involve counseling and coordination that comprised more than 50% of the visit time. ELIZ Garay 09/08/2020 10:52 AM documented in this encounter Miscellaneous Notes Addendum Note - Fela Brumfield - 09/08/2020 10:45 AM CDT Addended by: FELA BRUMFIELD on: 09/08/2020 10:55 AM Modules accepted: Orders documented in this encounter Plan of Treatment Health Maintenance Due Date Last Done Comments [...] Date/Time Associated Diagnosis Comme nts POCT URINALYSIS Routine 09/08/2020 Supervision of high risk Results for this in first procedure are in the trimester results section . documented in this encounter Results POCT URINALYSIS W SPECIFIC GRAVITY (09/08/2020) Pathologist Sig nature POCT U SP GRAV . 1.005 - 1.025 mg/dl POCT PH U . 5 - 8 mg/dl POCT U LEUK EST . Negative - Negative POCT U NIT . Negative - Negative POCT U PROT trace Negative - Negative POCT U GLU 1+ Negative - Negative POCT U KETONE . Negative - Negative POCT U UROBILI . 0.2 - 1 mg/dl POCT U BILI . Negative - Negative POCT U BLD . Negative - Negative POCT U COLOR POCT U APPEAR Specimen Urine - URINE, CLEAN CATCH documented in this encounter Visit Diagnoses Diagnosis Supervision of high risk in fi rst trimester - Primary Unspecified high-risk Previous section complicating p regnancy Previous delivery, unspecified as to episode of care or not applicable Desires (vaginal after marc an) trial Previous delivery, unspecified as to episode of care or not applicable Multiparity Nausea and vomiting during Obesity in Obesity complicating , childbir th, or the puerperium, unspecified as to episode of care or not applicable documented in this encounter Insurance Payer Benefit Plan / Subscriber ID Effective Phone Address T ype Group Dates ASIA BETANCOURT [id number] 2018-Anupama Camacho O BOX Medic aid [facility]ALTHCARE - [facility] [id number] MANAGED MEDICAID [place], [place] documented as of this encounter Advance Directives Type Date Recorded Patient Assault Boat Coxswain Explanati on Advance Directives and Living Will Power of In Room Dining Server Name Relationship Healthcare Agent Relationship Co mmunication Floyd Brown Father Health Care Agent Preet Coffey Other Health Care Agent [place] Gina Spouse [facility][1] Health Care [phone] Agent (Mobile)
--- OUTSIDE RECORDS SUMMARY | 2020-09-09 09:28 | XMS REPORT | Summary of Care ---
:1990 Author Organization [facility] Address [address] [place] [address] Care Team Providers Name Role Phone Gamal Saravia Insurance Hmo Lauren Fernandez Primary Care Provider Reason for Visit Reason Comments ROUTINE VISIT (Routine) Status Reason Specialty Diagnoses / Referred By Referred To Procedures Contact Contact New Request OB Satellites Diagnoses Hyperemesis gravidarum Marisel Galvan, Procedures Discharge Follow-Up: Energy Derivatives Trader Lorena FRANKLIN [address] [facility] [id number] [place] [address] Encounter Details Date Type Department Care Team Description 09/08/2020 Routine [facility]- Cornelius Fernandez upervision of high risk in first trimester (Primary Dx); Visit ELIZ Holland Previous section complicating p regnancy; [address] [place] [place] NANCY (vaginal after ) trial; [address]; [place], [place], [place] Nausea and vomi ting during ; [phone] Obesity in [phone] Allergies Active Allergy Reactions Severity Noted Date Comments Ibuprofen Hives 04/15/2014 [place] Hives 04/15/2014 Sodium Citrate (Bulk) Nausea and/or Vomiting 9 documented as of this encounter (statuses as of 09/08/2020) Medications Medication Sig Dispensed Refills Start Date End Date Status vit Take 1 Packet by 30 Each 6 08/03/2020 Active 40-ptvu-iizir-dha mouth daily. 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 Line Maintainer Utility Encounter for IUD removal and reinsertion 01/18/2015 ASCUS on Pap smear 04/15/2014 Estimated Date of Delivery Comments Yes 04/11/2021 Based on Ultrasound, FHT: 127, Transverse Presentation, Placen ta Too early to evaulate documented as of this encounter (statuses as of 09/08/2020) Resolved Problems Problem Noted Date Resolved Date 37 weeks gestation of 12/18/2018 01/08/20 19 [place] Hick's contraction 12/12/2018 01/08/2019 Abnormal maternal glucose [...] management 01/25/2015 05/20/2018 Overview: ICD10 Diagnosis Term Line Maintainer Utility Breast tenderness in female 01/25/2015 05/20/2018 Not immune to rubella 04/16/2014 06/04/2016 Overview: ICD10 Diagnosis Term Line Maintainer Utility documented as of this encounter (statuses [...] in this encounter Progress Notes Cornelius Fernandez, COMMISSIONED SECURITY OFFICER - 09/08/2020 10:45 AM CDT Chief complaint: Chief Complaint Patient presents with ROUTINE VISIT HPI CC: Follow Up Visit Suraj Fuentes is a 29 year old, , /White female. Patient's last menstrual period was 06/08/2020 (approximate). She is 9w2d with an intrauterine . Her estimated date of delivery is 04/11/2021, by Ultrasound. She went to [facility] ER for nausea and vomitin g, [...] Manny Gray; Location: Labor and Delivery - [place] Social History Socioeconomic History Marital status: Spouse [...] file Gets together: Not on file Attends adventist service: Not on file Active member of [...] sexual or emotional abuse. Only outside cats. Methodist: None Patient lives with spouse and kids. [...] problems of obesity on future pregnancies and/or skilled nursing health. Return to clinic in 4 weeks. [...] Treatment Date Type Specialty Care Team Description 10/06/2020 Routine Visit OB Satellites Lauren Fernandez, COMMISSIONED SECURITY OFFICER [address] [place], [place] [address] [phone] Health Maintenance Due Date Last Done Comments [...] in the trimester results section . POCT URINALYSIS Routine 09/08/2020 Supervision of high risk Results for this in first procedure are in the trimester results section . documented in this encounter Results POCT URINALYSIS W SPECIFIC GRAVITY (09/08/2020) Pathologist Sig nature POCT U SP GRAV . 1.005 - 1.025 mg/dl POCT PH U 5 5 - 8 mg/dl POCT U LEUK EST neg Negative - Negative POCT U NIT neg Negative - Negative POCT U PROT trace Negative - Negative POCT U GLU 1+ Negative - Negative POCT U KETONE neg Negative - Negative POCT U UROBILI . 0.2 - 1 mg/dl POCT U BILI . Negative - Negative POCT U BLD neg Negative - Negative POCT U COLOR POCT U APPEAR Specimen Urine - URINE, CLEAN CATCH POCT URINALYSIS W SPECIFIC GRAVITY (09/08/2020) Pathologist [...] Address T ype Group Dates ASIA BETANCOURT [id number] 2018-Anupama HIDALGO Medic [place] [phone] [place] documented as of this encounter Advance Directives Type Date Recorded Patient Channel Opener Outsoles Explanati on Advance Directives and Living Will Power of Executive Secretary Social Welfare Name Relationship Healthcare Agent Relationship Co mmunication Floyd Brown Father Health Care Agent Preet Milagrosteph Other Health Care Agent [place] Fuentes Spouse [facility] Health Care Agent (Mobile)
--- OUTSIDE RECORDS SUMMARY | 2020-09-09 09:28 | XMS REPORT | Summary of Care ---
:1990 Author Organization [facility] Address [address] [place] [address] Care Team Providers Name Role Phone Gamal Saravia Insurance Hmo Lauren Fernandez Primary Care Provider Reason for Visit Reason Comments ROUTINE VISIT (Routine) Status Reason Specialty Diagnoses / Referred By Referred To Procedures Contact Contact New Request OB Satellites Diagnoses Hyperemesis gravidarum Marisel Galvan, Procedures Discharge Follow-Up: Lining Caser Lorena FRANKLIN [address] [facility] [id number] [place] [address] Encounter Details Date Type Department Care Team Description 09/08/2020 Routine [facility]- Cornelius Fernandez upervision of high risk in first trimester (Primary Dx); Visit ELIZ Holland Previous section complicating p regnancy; [address] [place] [address] [place] V NANCY (vaginal after ) trial; [address] [place] [address]; [place], [place], [place] Nausea and vomi ting during ; [phone] Obesity in [phone] Allergies Active Allergy Reactions Severity Noted Date Comments Ibuprofen Hives 04/15/2014 [place] Hives 04/15/2014 Sodium Citrate (Bulk) Nausea and/or Vomiting 9 documented as of this encounter (statuses as of 09/08/2020) Medications Medication Sig Dispensed Refills Start Date End Date Status vit Take 1 Packet by 30 Each 6 08/03/2020 Active 02-amnu-tddla-dha mouth daily. 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 Cloth Measurer Machine Utility Encounter for IUD removal and reinsertion 01/18/2015 ASCUS on Pap smear 04/15/2014 Estimated Date of Delivery Comments Yes 04/11/2021 Based on Ultrasound, FHT: 127, Transverse Presentation, Placen ta Too early to evaulate documented as of this encounter (statuses as of 09/08/2020) Resolved Problems Problem Noted Date Resolved Date 37 weeks gestation of 12/18/2018 01/08/20 19 [place] Hick's contraction 12/12/2018 01/08/2019 Abnormal maternal glucose [...] management 01/25/2015 05/20/2018 Overview: ICD10 Diagnosis Term Cloth Measurer Machine Utility Breast tenderness in female 01/25/2015 05/20/2018 Not immune to rubella 04/16/2014 06/04/2016 Overview: ICD10 Diagnosis Term Cloth Measurer Machine Utility documented as of this encounter (statuses as of 09/08/2020) Immunizations Name Administration Dates Next Due HPV9 06/04/2016 MMR 12/20/2018 (Deferred: - not available f [facility]) TDAP 04/06/2015 TDAP (ADACEL) [...] in this encounter Progress Notes Cornelius Fernandez, PIG MACHINE SUPERVISOR - 09/08/2020 10:45 AM CDT Chief complaint: Chief Complaint Patient presents with ROUTINE VISIT HPI CC: Follow Up Visit Suraj Fuentes is a 29 year old, , /White female. Patient's last menstrual period was 06/08/2020 (approximate). She is 9w2d with an intrauterine . Her estimated date of delivery is 04/11/2021, by Ultrasound. She went to [facility] ER for nausea and vomitin g, [...] Manny Gray; Location: Labor and Delivery - [place] Social History Socioeconomic History Marital status: Spouse [...] file Gets together: Not on file Attends mandaen service: Not on file Active member of [...] sexual or emotional abuse. Only outside cats. Spiritism: None Patient lives with spouse and kids. [...] problems of obesity on future pregnancies and/or detention health. Return to clinic in 4 weeks. Discussed treatment options. Medications as ordered. Reviewed patient instructions and provided printed copy. This visit did not involve counseling and coordination that comprised more than 50% of the visit time. ELIZ Garay 09/08/2020 10:52 AM documented in this encounter Plan of Treatment [...] / Subscriber ID Effective Phone Address T [facility] Dates ASIA BETANCOURT [id number] 2018-Anupama HIDALGO Medic [place] [address] [place] MED[place] documented as of this encounter Advance Directives Type Date Recorded Patient Youth Specialist Explanati on Advance Directives and Living Will Power of Asbestos Brake Lining Finisher Name Relationship Healthcare Agent Relationship Co mmunication Floyd Brown Father Health Care Agent Preet Coffey Other Health Care Agent [place] Fuentes Spouse First [facility] Health Care Agent (Mobile)
--- OUTSIDE RECORDS SUMMARY | 2020-09-09 09:29 | XMS REPORT | Summary of Care ---
:1990 Author Organization [facility] Address [address] [place] [address] Care Team Providers Name Role Phone Gamal Saravia Insurance Hmo Lauren Fernandez DIRECTOR MISSION Primary Care Provider Reason for Visit Reason Comments Rx Concern/Question prior auth go to cover mymed s [id number] Encounter Details Date Type Department Care Team Description 09/07/2020 Telephone [facility]- Cornelius Fernandez, Rx Concern/Question Monson FNP (prior auth go to [facility] [address] [facility] cover mymeds [id number]) [place] [address] [place], [place] [phone] [id number] [phone] Allergies Active Allergy Reactions Severity Noted Date Comments Ibuprofen Hives 04/15/2014 [place] Hives 04/15/2014 Sodium Citrate (Bulk) Nausea and/or Vomiting 9 documented as of this encounter (statuses as of 09/08/2020) Medications Medication Sig Dispensed Refills Start Date End Date Status vit Take 1 Packet by 30 Each 6 08/03/2020 Active 72-ilid-abpat-dha mouth daily. 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 Extrusion Die Template Maker Utility Encounter for IUD removal and reinsertion 01/18/2015 ASCUS on Pap smear 04/15/2014 Estimated Date of Delivery Comments Yes 04/11/2021 Based on Ultrasound, FHT: 127, Transverse Presentation, Placen ta Too early to evaulate documented as of this encounter (statuses as of 09/08/2020) Resolved Problems Problem Noted Date Resolved Date 37 weeks gestation of 12/18/2018 01/08/20 19 [place] Hick's contraction 12/12/2018 01/08/2019 Abnormal maternal glucose [...] management 01/25/2015 05/20/2018 Overview: ICD10 Diagnosis Term Extrusion Die Template Maker Utility Breast tenderness in female 01/25/2015 05/20/2018 Not immune to rubella 04/16/2014 06/04/2016 Overview: ICD10 Diagnosis Term Extrusion Die Template Maker Utility documented as of this encounter (statuses [...] this encounter Miscellaneous Notes Telephone Encounter - Ysabel Noyola RN - 09/08/2020 3:14 PM CDT Submitted PA for brandon, awaiting response via fax. YSABEL NOYOLA RN 09/08/2020 3:14 PM Telephone Encounter - APPLE Rangel - 09/07/2020 12:39 PM CDTPt is requesting a call to pharmacy for authorization of nausea medication. Please call [phone] (home) documented in this encounter Plan of Treatment Date Type Specialty Care Team Description 10/06/2020 Routine Visit OB Satellites Lauren Fernandez, DIRECTOR MISSION [address] [address] 15 [phone] Health Maintenance Due Date Last Done Comments [...] / Subscriber ID Effective Phone Address T biancae Group Dates ASIA BETANCOURT [id number] 2018-Anupama Camacho [address] BOX Medic [place] [id number] [place] documented as of this encounter Advance Directives Type Date Recorded Patient Web Application Tester Explanati on Advance Directives and Living Will Power of Tire Service Technician Name Relationship Healthcare Agent Relationship Co mmunication Floyd Brown Father Health Care Agent Preet Coffey Other Health Care Agent [place] Fuentes Spouse [facility] Health Care Agent (Mobile)
[2020-09-09] MEDS ORDERED: PROMETHAZINE INJ 25 MG/ML AMP ONE (09:56)
[2020-09-09] MEDS ORDERED: NA CHLORIDE 0.9% 1,000 ML ONE (09:56)
[2020-09-09 10:42] LABS: Absolute Lymphocytes (CBC) 1.4 K/uL (0.7-4.9); Basophils % 0.5 % (0-1.3); Hematocrit 38.4 % (36.0-45.0); Lymphocytes % 19.9 % (15.3-44.8); MPV 8.2 fL (7.6-11.3); RBC Red Blood Cell Count 4.37 M/uL (3.86-4.86)
[2020-09-09 10:59] LABS: BUN Blood Urea Nitrogen 4 mg/dL (7-18); Bicarbonate 24 mmol/L (21-32); Glucose Level 104 mg/dL (74-106); Potassium 3.5 mmol/L (3.5-5.1); Sodium Level 138 mmol/L (136-145)
[2020-09-09] MEDS ORDERED: ONDANSETRON 4 MG/2 ML VIAL ONE ×2 (11:41→13:05)
[2020-09-09 12:23] LABS: Urine Blood NEGATIVE (NEG); Urine Glucose TRACE (NEG); Urine Protein NEGATIVE (NEG); Urine Specific Gravity 1.025 (1.005-1.030); Urine pH 8.5 (5.0-7.0)
--- NOTE | 2020-09-09 13:07 | ER ---
Nurse's Notes [facility] Name: Suraj Fuentes Age: 29 yrs Sex: Female : 1990 Arrival Date: 09/09/2020 Time: 09:20 Bed 14 Private MD: Diagnosis: Vomiting;Nausea and vomiting Presentation: 09/09 09:33 Chief complaint: Patient states: 9 weeks has hx of hyperemesis gravidarum, has iw been taking her meds as prescribed but still vomiting. Coronavirus screen: At this time, the client does not indicate any symptoms associated with coronavirus-19. Ebola Screen: Patient negative for fever greater than or equal to 101.5 degrees Fahrenheit, and additional compatible Ebola Virus Disease symptoms Patient denies exposure to infectious person. Patient denies travel to an Ebola-affected area in the 21 days before illness onset. No symptoms or risks identified at this time. Initial Sepsis Screen: Does the patient meet any 2 criteria? No. Patient's initial sepsis screen is negative. Does the patient have a suspected source of infection? No. Patient's initial sepsis screen is negative. Risk Assessment: Do you want to hurt yourself or someone else? Patient reports no desire to harm self or others. Onset of symptoms was September 09, 2020. 09:33 Method Of Arrival: Wheelchair iw 09:33 Acuity: SHAW 3 iw Historical: - Allergies: 09:36 Ibuprofen; iw 09:36 ORANGES; iw - PMHx: 09:36 hyperemesis gravidum; iw - PSHx: 09:36 Appendectomy; ; iw - Immunization history:: Adult Immunizations unknown. - Social history:: Smoking status: unknown. Screenin:37 Abuse screen: Denies threats or abuse. Denies injuries from another. Nutritional iw screening: Has had N/V for 3 or more days. Tuberculosis screening: No symptoms or risk factors identified. Fall Risk None identified. Assessment: 09:35 General: Appears uncomfortable, ill, Behavior is cooperative. Pain: Denies pain. Neuro: iw Level of Consciousness is awake, alert, obeys commands, Oriented to person, place, time, situation, Moves all extremities. Full function. Cardiovascular: Patient's skin is warm and dry. Respiratory: Respiratory effort is even, unlabored, Respiratory pattern is regular, symmetrical. GI: Abdomen is non-distended, Reports nausea, vomiting, Patient currently denies abdominal pain. Derm: Skin is intact, is healthy with good turgor. Musculoskeletal: Range of motion: intact in all extremities. 10:15 Reassessment: pt actively vomiting. Dr. Rod notified , order for 2nd dose of iw Phenergan, given now. 12:13 Reassessment: Patient appears in no apparent distress at this time. pt states symptoms iw have improved but still feels nauseous, pt requesting another dose of zofran before she goes home. 12:57 Reassessment: Patient appears in no apparent distress at this time. Patient and/or iw family updated on plan of care and expected duration. Pain level reassessed. Patient states feeling better. Patient states symptoms have improved. Vital Signs: 09:33 BP 146 / 86; Pulse 80; Resp 16; Temp 98.3; Pulse Ox 100% on R/A; iw 10:36 BP 116 / 58; Pulse 63; Resp 16; Pulse Ox 100% on R/A; iw 11:30 BP 106 / 64; Pulse 91; Resp 16; Pulse Ox 99% on R/A; iw ED Course: 09:20 Patient arrived in ED. ag5 09:28 Sharath Rod MD is Attending Physician. kdr 09:28 Yuki Cornejo, ALFONZO is Primary Nurse. iw 09:30 Inserted saline lock: 22 gauge in right antecubital area, using aseptic technique. iw 09:35 Triage completed. iw 09:35 Arm band placed on. iw 09:35 Patient has correct armband on for positive identification. iw 10:29 Chem 7 Sent. dh3 10:29 CBC with Diff Sent. dh3 13:16 No provider procedures requiring assistance completed. Patient did not have IV access iw during this emergency room visit. Administered Medications: 09:51 Drug: Phenergan 12.5 mg Route: IVP; Site: right antecubital; iw 09:51 Drug: NS 0.9% 1000 ml Route: IV; Rate: 1 bolus; Site: right antecubital; iw 10:11 Drug: Phenergan 12.5 mg Route: IVP; Site: right antecubital; iw 11:36 Drug: Zofran (Ondansetron) 4 mg Route: IVP; Site: right antecubital; iw 12:56 Drug: Zofran (Ondansetron) 4 mg Route: IVP; Site: right antecubital; iw 13:03 Not Given (Physician Discretion): Phenergan 12.5 mg IVP once iw Outcome: 13:07 Discharge ordered by . kdr 13:17 Patient left the ED. iw 14:07 Discharged to home ambulatory, with family. iw 14:07 Condition: good 14:07 Discharge instructions given to patient, family, Instructed on discharge instructions, follow up and referral plans. medication usage, Demonstrated understanding of instructions, follow-up care, medications, Prescriptions given X 1. Signatures: Sharath Rod MD MD kdr Williams, Irene, RN RN Lakisha Smith [facility] Cailin Rankin [facility]
--- NOTE | 2020-09-09 13:08 | EDPHYS ---
Physician Documentation [facility] Name: Suraj Fuentes Age: 29 yrs Sex: Female : 1990 Arrival Date: 09/09/2020 Time: 09:20 Bed 14 Private MD: ED Physician Sharath Rod HPI: 09/09 19:41 This 29 yrs old Female presents to ER via Wheelchair with complaints of kdr Nausea/Vomiting. 19:41 The patient presents to the emergency department with nausea, that is mild, that is kdr moderate, vomiting, that is intermittent. Onset: The symptoms/episode began/occurred 7 week(s) ago. Possible causes: . The symptoms are aggravated by food , The symptoms are alleviated by nothing. Associated signs and symptoms: The patient has no apparent associated signs or symptoms. Severity of symptoms: At their worst the symptoms were incapacitating in the emergency department the symptoms are unchanged. The patient has experienced similar episodes in the past. The patient has been recently seen at the [facility] Emergency Department, a couple of weeks ago. This is a recurrent problem with her pregnancies. Historical: - Allergies: 09:36 Ibuprofen; iw 09:36 ORANGES; iw - PMHx: 09:36 hyperemesis gravidum; iw - PSHx: 09:36 Appendectomy; ; iw - Immunization history:: Adult Immunizations unknown. - Social history:: Smoking status: unknown. ROS: 19:41 Constitutional: Negative for fever, chills, and weight loss, Eyes: Negative for injury, kdr pain, redness, and discharge, Neck: Negative for injury, pain, and swelling, Cardiovascular: Negative for chest pain, palpitations, and edema, Respiratory: Negative for shortness of breath, cough, wheezing, and pleuritic chest pain, Back: Negative for injury and pain, : Negative for injury, bleeding, discharge, and swelling, MS/Extremity: Negative for injury and deformity, Skin: Negative for injury, rash, and discoloration, Neuro: Negative for headache, weakness, numbness, tingling, and seizure activity. Psych: Negative for depression, anxiety, suicide ideation, homicidal ideation, and hallucinations, Allergy/Immunology: Negative for hives, rash, and allergies, Endocrine: Negative for neck swelling, polydipsia, polyuria, polyphagia, and marked weight changes, Hematologic/Lymphatic: Negative for swollen nodes, abnormal bleeding, and unusual bruising. 19:41 Abdomen/GI: Positive for nausea and vomiting, abdominal cramps, Negative for abdominal distension, anorexia, dysphagia, hematemesis, black/tarry stool, rectal pain, rectal bleeding, bowel incontinence. Exam: 19:41 Constitutional: This is a well developed, well nourished patient who is awake, alert, kdr and in mild distress. Head/Face: Normocephalic, atraumatic. Eyes: Pupils equal round and reactive to light, extra-ocular motions intact. Lids and lashes normal. Conjunctiva and sclera are non-icteric and not injected. Cornea within normal limits. Periorbital areas with no swelling, redness, or edema. Neck: Trachea midline, no thyromegaly or masses palpated, and no cervical lymphadenopathy. Supple, full range of motion without nuchal rigidity, or vertebral point tenderness. No Meningismus. Chest/axilla: Normal chest wall appearance and motion. Nontender with no deformity. No lesions are appreciated. Cardiovascular: Regular rate and rhythm with a normal S1 and S2. No gallops, murmurs, or rubs. Normal PMI, no JVD. No pulse deficits. Respiratory: Lungs have equal breath sounds bilaterally, clear to auscultation and percussion. No rales, rhonchi or wheezes noted. No increased work of breathing, no retractions or nasal flaring. Abdomen/GI: Soft, non-tender, with normal bowel sounds. No distension or tympany. No guarding or rebound. No evidence of tenderness throughout. Back: No spinal tenderness. No costovertebral tenderness. Full range of motion. Skin: Warm, dry with normal turgor. Normal color with no rashes, no lesions, and no evidence of cellulitis. MS/ Extremity: Pulses equal, no cyanosis. Neurovascular intact. Full, normal range of motion. Neuro: Awake and alert, GCS 15, oriented to person, place, time, and situation. Cranial nerves II-XII grossly intact. Motor strength 5/5 in all extremities. Sensory grossly intact. Cerebellar exam normal. Normal gait. Psych: Awake, alert, with orientation to person, place and time. Behavior, mood, and affect are within normal limits. Vital Signs: 09:33 BP 146 / 86; Pulse 80; Resp 16; Temp 98.3; Pulse Ox 100% on R/A; iw 10:36 BP 116 / 58; Pulse 63; Resp 16; Pulse Ox 100% on R/A; iw 11:30 BP 106 / 64; Pulse 91; Resp 16; Pulse Ox 99% on R/A; iw MDM: 13:06 Patient medically screened. kdr 19:41 Data reviewed: vital signs, nurses notes, lab test result(s), radiologic studies. kdr Counseling: I had a detailed discussion with the patient and/or guardian regarding: the historical points, exam findings, and any diagnostic results supporting the discharge/admit diagnosis, lab results, radiology results, the need for outpatient follow up. 09/09 10:07 Order name: CBC with Diff; Complete Time: 11:31 kdr 09/09 10:07 Order name: Chem 7; Complete Time: 11:31 kdr 09/09 12:12 Order name: Urine Dipstick--Ancillary (enter results) em1 09/09 12:12 Order name: Urine --Ancillary (enter results) em1 09/09 10:07 Order name: Urine Dipstick-Ancillary (obtain specimen); Complete Time: 12:10 kdr Administered Medications: 09:51 Drug: Phenergan 12.5 mg Route: IVP; Site: right antecubital; iw 09:51 Drug: NS 0.9% 1000 ml Route: IV; Rate: 1 bolus; Site: right antecubital; iw 10:11 Drug: Phenergan 12.5 mg Route: IVP; Site: right antecubital; iw 11:36 Drug: Zofran (Ondansetron) 4 mg Route: IVP; Site: right antecubital; iw 12:56 Drug: Zofran (Ondansetron) 4 mg Route: IVP; Site: right antecubital; iw 13:03 Not Given (Physician Discretion): Phenergan 12.5 mg IVP once iw Disposition: 09/09/20 13:07 Discharged to Home. Impression: Vomiting, Nausea and vomiting. - Condition is Stable. - Discharge Instructions: Nausea and Vomiting, Adult, Vaqr-ab-Vpvs. - Prescriptions for promethazine 25 mg Oral Tablet - take 1 tablet by ORAL route every 6 hours As needed; 20 tablet. - Medication Reconciliation Form, Thank You Letter form. - Follow up: Private Physician; When: 2 - 3 days; Reason: If symptoms return, Further diagnostic work-up, Recheck today's complaints, Continuance of care, Re-evaluation by your physician. - Problem is an acute exacerbation. - Symptoms have improved. Signatures: Dispatcher [employer] [facility] Sharath Rod MD MD kdr Yuki Cornejo RN RN iw Corrections: (The following items were deleted from the chart) 10:13 10:11 Testosterone ordered. [facility] 10:13 10:11 Comprehensive Metabolic Panel ordered. [facility] 10:13 10:11 Lactic Dehydrogenase ordered. [facility] 10:13 10:12 [place] 19-9 Antigen ordered. [facility] 13:17 13:07 09/09/2020 13:07 Discharged to Home. Impression: Vomiting; Nausea and vomiting. iw Condition is Stable. Forms are Medication Reconciliation Form, Thank You Letter, Antibiotic Education, Prescription Opioid Use. Follow up: Private Physician; When: 2 - 3 days; Reason: If symptoms return, Further diagnostic work-up, Recheck today's complaints, Continuance of care, Re-evaluation by your physician. Problem is an acute exacerbation. Symptoms have improved. kdr
[2020-09-09 13:23] VITALS: TEMP 98.3
[2020-09-09 13:26] VITALS: BP 106/64; O2SAT 99
== END 2020-09-09 13:17 | disposition home or self-care (01) ==
LOC: ER 09:18
DX: O21.0 Mild hyperemesis gravidarum (principal); Z3A.09 9 weeks gestation of pregnancy; Z88.6 Allergy status to analgesic agent; Z91.018 Allergy to other foods
CPT/HCPCS: 85025; 80048; 36415; 81025; 81003; 96375; 96374; 99284; J2550; J7030; J2405 ×2

== ENCOUNTER 2020-09-12 11:26 | Emergency (ER) | payer MEDICAID ==
--- OUTSIDE RECORDS SUMMARY | 2020-09-12 11:27 | XMS REPORT | Continuity of Care Document ---
:1990 Author Organization [facility] t Address [address] [place] [address] Care Team Providers Name Role Phone Shirin FRANKLIN, Keerthi Attending Clinician Kevin FRANKLIN Attending Clinician Vitaliy CNP, C Attending Clinician Jim WELLINGTON, R Attending Clinician Kevin FRANKLIN Admitting Clinician Problems This patient has no known problems. Allergies, Adverse Reactions, Alerts This patient has no known allergies or adverse reactions. Medications This patient has no known medications. Procedures This patient has no known procedures. Encounters Start End Encounter Admission Attending Care Care Encounter Source Date/Time Date/Time Type Type Clinicians Facility Department ID 2020-09-09 2020-09-10 [facility] Marcelo Carpio [id number] 19:39:00 16:45:00 Encounter Karlie Brown [id number] [facility] [id number] 2020-09-09 2020-09-09 Telephone AMBAR Burks [id number] 00:00:00 00:00:00 Graciela C ZIG ZAG STITCHER [id number] REGIONAL [id number] MATERNAL [id number] & CHILD 107 [facility] 2020-09-09 2020-09-09 [place] Jim [facility] [id number] 00:00:00 00:00:00 Roshunda R ZIG ZAG STITCHER [id number] REGIONAL [id number] MATERNAL [id number] & CHILD 107 [facility] 2020-09-08 2020-09-08 [facility] [id number] 10:23:36 11:14:26 Roshunda R ZIG ZAG STITCHER [id number] Visit REGIONAL [id number] MATERNAL [id number] & CHILD 107 [facility] 2020-09-08 2020-09-08 [place] [facility] [id number] 00:00:00 00:00:00 Roshunda R ZIG ZAG STITCHER [id number] REGIONAL [id number] MATERNAL [id number] & CHILD 107 [facility] 2020-09-07 2020-09-07 [place] [facility] [id number] 00:00:00 00:00:00 Roshunda R ZIG ZAG STITCHER [id number] REGIONAL [id number] MATERNAL [id number] & CHILD 107 [facility] Results This patient has no known results.
--- OUTSIDE RECORDS SUMMARY | 2020-09-12 11:31 | XMS REPORT | Summary of Care ---
:1990 Author Organization [facility] Address [address] [place] [address] Care Team Providers Name Role Phone Manjit E Insurance Hmo Lauren Fernandez [facility] Primary Care Provider Reason for Visit Reason Comments Assessment wanting to terminate pregnan cy Encounter Details Date Type Department Care Team Description 08/26/2020 Telephone [facility]- Cornelius Fernandez, As sessment (wanting to [facility] terminate ) [address] [facility] [address] [place] [address] [place], [place] [phone] [address] [phone] Allergies Active Allergy Reactions Severity Noted Date Comments Ibuprofen Hives 04/15/2014 [place] Hives 04/15/2014 Sodium Citrate (Bulk) Nausea and/or Vomiting 9 documented as of this encounter (statuses as of 08/26/2020) Medications Medication Sig Dispensed Refills Start Date End Date Status ondansetron HCl Take by mouth. 0 Active (ZOFRAN ORAL) vit Take 1 Packet by 30 Each 6 08/03/2020 Active 62-agam-vttjg-dha mouth daily. (SELECT-OB + DHA) 29 mg [...] in 01/25/2015 Overview: ICD10 Diagnosis Term Manager Strategic Alliances Utility Encounter for IUD removal and reinsertion [...] 01/25/2015 05/20/2018 Overview: ICD10 Diagnosis Term Manager Strategic Alliances Utility Breast tenderness in female 01/25/2015 05/20/2018 Not immune to rubella 04/16/2014 06/04/2016 Overview: ICD10 Diagnosis Term Manager Strategic Alliances Utility documented as of this encounter (statuses [...] 08/31/2020 Routine Visit OB Satellites Lauren Fernandez, ENTRY LEVEL ASSISTANT MANAGER [address] [id number] 15 [phone] Health Maintenance Due Date Last Done Comments [...] Address T ype Group Dates ASIA BETANCOURT [id number] 2018-Anupama [address] Medic [place] [id number] [place]ED [place] documented as of this encounter Advance Directives Type Date Recorded 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
--- OUTSIDE RECORDS SUMMARY | 2020-09-12 11:32 | XMS REPORT | Summary of Care ---
:1990 Author Organization [facility] Address [address] [place] [address] Care Team Providers Name Role Phone Gamal Saravia Insurance Hmo Lauren Fernandez SEWER REPAIRER Primary Care Provider Reason for Visit Reason Comments Assessment vomit Encounter Details Date Type Department Care Team Description 09/06/2020 Telephone [facility]- Cornelius Fernandez, As sessment (vomit) [facility] [address] [facility] [address] [place] [address] [place] [phone] Allergies Active Allergy Reactions Severity Noted Date Comments Ibuprofen Hives 04/15/2014 [place] Hives 04/15/2014 Sodium Citrate (Bulk) Nausea and/or Vomiting 9 documented as of this encounter (statuses as of 09/06/2020) Medications Medication Sig Dispensed Refills Start Date End Date Status vit Take 1 Packet by 30 Each 6 08/03/2020 Active 23-saab-ajvbp-dha mouth daily. 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 Utility Breast tenderness in female 01/25/2015 05/20/2018 Not immune to rubella 04/16/2014 06/04/2016 Overview: ICD10 Diagnosis Term Floral Merchandiser Utility documented as of this encounter (statuses [...] old female Patient stated she went to [facility] 08/28/20 for N/V and has received fluids [...] has been loosing weight , please call [phone] (home) documented in this encounter Plan of Treatment Date Type Specialty Care Team Description 09/08/2020 Routine Visit OB Satellites Lauren Fernandez FNP [address] [address] [phone] Health Maintenance Due Date Last Done Comments [...] Address T e Group Dates ASIA BETANCOURT [id number] 2018-Anupama [address] Medic [place] [id number] [place] documented as of this encounter Advance Directives Type Date Recorded 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 Health Care Agent (Mobile)
--- OUTSIDE RECORDS SUMMARY | 2020-09-12 11:32 | XMS REPORT | Summary of Care ---
:1990 Author Organization [facility] - Health Address [address] [place] [address] Care Team Providers Name Role Phone Gamal Saravia Insurance H[employer] Lauren Fernandez Primary Care Provider Reason for Referral (Routine) Status Reason Specialty Diagnoses / Referred By Referred To Procedures Contact Contact New Request OG-OBSTETRICS & Diagnoses Nausea and vomiting during Aufderheide, Leann GYNECOLOGY Procedures Discharge Follow-Up: Specialty Service OG-OBSTETRICS & GYNECOLOGY; 3-5 Days MD Merna [address] [place] [address]. [place] [address] Reason for Visit Reason Comments Abdominal Pain Vomiting Auth/Cert Status Reason Specialty Diagnoses / Referred By Referred To Procedures Contact Contact Emergency Medicine [facility] rgency Dept [address] [place] [phone] Fax: Encounter Details Date Type Department Care Team Description 08/28/2020 - Emergency [facility] Monika Allen MD [address] [place] [phone] Abdominal pain during in first trimester (Primary Dx); 08/29/2020 Department Anthonyerjessi, Leann Bauman MD [address] [place] [phone] Nausea and vomiting during [address] [place] [phone] Allergies Active Allergy Reactions Severity Noted Date Comments Ibuprofen Hives 04/15/2014 [place] Hives 04/15/2014 Sodium Citrate (Bulk) Nausea and/or Vomiting 9 documented as of this encounter (statuses as of 08/29/2020) Medications Medication Sig Dispensed Refills Start Date End Date Status ondansetron HCl Take by mouth. 0 Active (ZOFRAN ORAL) vit Take 1 Packet by 30 Each 6 08/03/2020 Active 58-ciqk-[id number]-dha mouth daily. 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 SCHEDULE AN APPOINTMENT ONLINE AT [email or web address] 2. OR CALL THE [facility] ACCESS CENTER AT OR 3. OR CALL YOUR [facility] PHYSICIAN'S OFFICE DIRECTLY IF YOU ARE ALREADY AN ESTABLISHED [facility] PATIENT. RETURN TO ER FOR WORSENING OF SYMPTOMS. AttachmentsThe following attachments cannot be sent through Care Everywhere. : Your First Trimester Changes (Amharic)Severe Morning Sickness (Hyperemesis Gravidarum) (Amharic)documented in this encounter ED Notes Arsalan Salazar [...] site, catheter intact. Patient ambulatory to the [facility] accompanied by visitors x2, in possession [...] - 08/28/2020 11:47 PM [facility] - Ada Bush [...] cough, SOB. . Patient was seen in [place] for same complaint, patient's s/o states "they [...] 08/31/2020 Routine Visit OB Satellites Lauren Fernandez, BIOCHEMISTRY PROFESSOR [address] [address] 15 [phone] Health Maintenance Due Date Last Done Comments [...] Abdominal pain Re sults for this PANEL (44084) [facility] ([facility]B,T.PRO,BILI first trimester the resul ts T,BU/BC,ALT,AST,ALK section. PHOS) documented in this encounter Results Urinalysis (08/29/2020 12:26 AM CDT) Pathologist Sig nature APPEARANCE Clear Clear [facility] COLOR Trudi (A) Yellow [facility] PH 7.0 4.8 - 8.0 [facility] SP GRAVITY 1.030 1.003 - 1.030 [facility] GLU U QUAL Normal Normal [facility] BLOOD Negative Negative [facility] KETONES 80 mg/dL (A) Negative [facility] PROTEIN 30 mg/dL (A) Negative [facility] UROBILIN 2.0 mg/dL (A) Normal [facility] BILIRUBIN Negative Negative [facility] NITRITE Negative Negative [facility] LEUK HO Negative Negative [facility] RBC/HPF 3 0 - 3 HPF [facility] WBC/HPF 3 0 - 5 HPF [facility] BACTERIA Negative Negative [facility] MUCOUS Marked (A) Negative LPF [facility] SQ EPITH 4 (H) <=2 HPF [facility] Specimen Urine - URINE, CLEAN CATCH Performing Organization Address City/State/Zipcode Phone Number [facility] CLIA: [id number] [place], [place] [id number] [address] [place], [place] [address]vd TOTAL BHCG (QUANTITATIVE) (08/28/2020 10:08 PM CDT) Pathologist Sig nature BETA HCG 140,720.00 Non- female [facility] and male patients: SERVICES <5 mIU/mL Specimen Blood - VENOUS Narrative Performed At [facility] Gestational Age Rang e (mIU/mL) 1-10 Weeks 4 [id number] 11-15 Weeks 11 [phone] 16-22 Weeks 74 [phone] 23-40 Weeks 15 [id number] Biotin has been reported to cause a negative bias, int erpret results relative to patient's use of biotin. Performing Organization Address City/[facility] Cent[facility]ode Phone Number [facility] CLIA: [id number] [place] [address] [place] [address] Hepatic Function Panel (ALB, T.PRO, BILI T, BU/BC, ALT, AST, ALK PHOS) (08/28/2020 10:08 PM CDT) Pathologist Sig nature TOTAL BILI 0.7 0.1 - 1.1 mg/dL [facility] BILI UNCON 0.9 0.1 - 1.1 mg/dL [facility] BILI CONJ 0.0 0.0 - 0.3 mg/dL [facility] T PROTEIN 6.8 6.3 - 8.2 g/dL [facility] ALBUMIN 4.1 3.5 - 5.0 g/dL [facility] ALK PHOS 56 34 - 122 U/L [facility] ALTv 21 5 - 35 U/L [facility] AST(SGOT) 20 13 - 40 U/L [facility] Specimen Blood - VENOUS Performing Organization Address City/[facility]/Zipcode Phone Number [facility] CLIA: [id number] [place] [id number] [place] [address] Basic Metabolic Panel (NA, K, CL, CO2, GLUCOSE, BUN, CREATININE, CA) (08/28/2020 10:08 PM CDT) NA 139 135 - 145 [facility] mmol/L SERVICES K 3.4 (L) 3.5 - 5.0 [facility] mmol/L SERVICES CL 108 98 - 108 mmol/L [facility] CO2 TOTAL 21 (L) 23 - 31 mmol/L [facility] AGAP 10 2 - 16 [facility] BUN 7 7 - 23 mg/dL [facility] GLUCOSE 99 70 - 110 mg/dL [facility] CREATININE 0.49 (L) 0.50 - 1.04 [facility] mg/dL SERVICES CALCIUM 9.0 8.6 - 10.6 [facility] mg/dL SERVICES eGFR Calculation 149.3 mL/min/1.73m2 [facility] (Non- SERVICES Malagasy) eGFR Calculation 181.0 mL/min/1.73m2 [facility] () SERVICES Specimen Blood - VENOUS Narrative Performed At Association of Glomerular Filtration Rate (GFR) and St aging [facility] of Kidney Disease* + [...] . Performing Organization Address City/State/Zipcode Phone Number [facility] CLIA: [id number] [place] [address] [place] [address] CBC with Differential (08/28/2020 10:08 PM CDT) Pathologist Sig nature WBC 8.57 4.30 - 11.10 [facility] 10*3/L SERVICES RBC 4.62 3.93 - 5.25 [facility] 10*6/L SERVICES HGB 14.5 11.6 - 15.0 [facility] g/dL SERVICES HCT 40.7 35.7 - 45.2 % [facility] MCV 88.1 80.6 - 95.5 fL [facility] MCH 31.4 25.9 - 32.8 pg [facility] MCHC 35.6 (H) 31.6 - 35.1 [facility] g/dL SERVICES RDW-SD 38.5 (L) 39.0 - 49.9 fL [facility] RDW-CV 12.0 12.0 - 15.5 % [facility] PLT 187 166 - 358 [facility] 10*3/L SERVICES MPV 9.8 9.5 - 12.9 fL [facility] NRBC/100 WBC 0.0 0.0 - [...] VENOUS Performing Organization Address City/State/Zipcode Phone Number [facility] CLIA: [id number] [place] [address] [place] [address] documented in this encounter Visit Diagnoses Diagnosis [...] / Subscriber ID Effective Phone Address [facility] Group Dates ASIA BETANCOURT [id number] 2018-[employer] [facility] [place] [id number] MANAGED MEDICAID [place], [place] documented as of this encounter Advance Directives Type Date Recorded 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
--- OUTSIDE RECORDS SUMMARY | 2020-09-12 11:32 | XMS REPORT | Summary of Care ---
:1990 Author Organization [facility] - [facility] Address [address] [place] [address] Care Team Providers Name Role Phone Gamal Saravia Insurance Hmo Lauren Fernandez Primary Care Provider Reason for Referral (Routine) Status Reason Specialty Diagnoses / Referred By Referred To Procedures Contact Contact New Request Diagnoses Hyperemesis gravidarum Marisel Galvan, Procedures Discharge Follow-Up: Shirring Machine Operator Lorena FRANKLIN [address] [place], [place] [id number] Reason for Visit Auth/Cert Status Reason Specialty Diagnoses / Procedures Referred By Lauren marquez To Contact Contact Obstetrics Diagnoses 7wks IUP hyperemesis J10c [address] [place] [phone] Phone: Fax: Encounter Details Date Type Department Care Team Description 08/30/2020 - Hospital Encounter Obstetrics and Jda Isaacs ea and vomiting 09/01/2020 Gynecology (J10C) MD Tyler during [address] [place] [id number] [phone] Allergies Active Allergy Reactions Severity Noted Date Comments Ibuprofen Hives 04/15/2014 [place] Hives 04/15/2014 Sodium Citrate (Bulk) Nausea and/or Vomiting 9 documented as of this encounter (statuses as of 09/01/2020) Medications Medication Sig Dispensed Refills Start End Date Status Date vit Take 1 Packet by 30 Each 6 Active 22-yffd-tkxut-dha mouth daily. 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 Encounter for IUD removal and reinsertion 01/18/2015 ASCUS on Pap smear 04/15/2014 Estimated Date of Delivery Comments Yes 04/11/2021 Based on Ultrasound, FHT: 127, Transverse Presentation, Placen ta Too early to evaulate documented as of this encounter (statuses as of 09/01/2020) Resolved Problems Problem Noted Date Resolved Date 37 weeks gestation of 12/18/2018 01/08/20 19 Lloyd Hick's contraction 12/12/2018 01/08/2019 Abnormal maternal glucose [...] management 01/25/2015 05/20/2018 Overview: ICD10 Diagnosis Term 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 Diet, [place] (Adult) (Icelandic)documented in this encounter Progress Notes Major Velasquez [...] mL IV piggyback 25 mg IV Piggyback [id number] mg at 09/01/20 0552 pyridoxine (VITAMIN B-6) [...] 08/28/2020 21 No results found for: URICACID, [id number] No results found for: LDH Assessment/Plan: Suraj [...] tolerate PO for over 2 days - [place] ED Course: s/p 2L NS bolus, IV 4mg zofran, 12.5 benadryl, 20mg Pepcid, 12.5 phenergan, refused second phenergan dose so given Reglan 10mg, 20mEq KCLrepletion - OSH labs remarkable for K 3.2, Cr 0.72, LFT WNL, lipase 59, Udip with 2+ ketone -Patient reports severe nausea, dry heaving noted in triage - Upon transfer to [facility], P 80s, BP 120/60s - [...] presentation at 37w - Documented LTCS at [facility] - Desires possible Hx PTD - G1 at 34w - G2 at 36w COVID-19 SCREEN: Lab Results Component Value Date/Time COVID19 Not Detected 08/30/2020 11:37 PM Antepartum course reviewed - seronegative, Rnot immune, VZVnot immune,A positive/IATnegative, GBSunk, PapASCUS 11/2017, neg HRHPV, needs repeat cotesting in 3 years - H/H, plt:14.5/ 40.7,187on 08/28/20 -[facility] Fetus - [id number] bpm via M mode on admission BSUS Major Velasquez MD 09/01/2020 Associated attestation - Marisel Galvan MD - 09/01/2020 10:40 AM CDT I was rounding [facility] faculty for this patient and was involved [...] presentation at 37w - Documented LTCS at [facility] - Desires possible Hx PTD - G1 at 34w - G2 at 36w COVID-19 SCREEN: Lab Results Component Value Date/Time COVID19 Not Detected 08/30/2020 11:37 PM Antepartum course reviewed - sero negative, Rnot immune, VZVnot immune, A positive/IAT negative, GBS unk, Pap ASCUS 11/2017, negHRHPV, needs repeat cotesting in 3 years - H/H, plt: 14.5 / 40.7, 187 on 08/28/20 - Critical access hospitalP Fetus - FHT 171-178 bpm via M mode on admission BSUS Major Velasquez MD - 08/31/2020 1:15 PM CDTJamiee Luly Fuentes [id number] 08/31/2020 1:15 PM Post-Rounds: - daily BMP [...] Physician: Cornelius Fernandez CHIEF COMPLAINT Transfer from [facility] ED HISTORY OF PRESENT ILLNESS Suraj Fuentes is a 29 year old at 8w0d who was transferred from [facility] ED for nausea and vomiting during with [...] for over 2 days. She went to [place] ED earlier this week (3-4 days ago), then presented to [facility] ED Saturday night.She was given 1L bolus, IV zofran, IV phenergan, and reglan, PO challenged with water/crackers, thensent home with renewed eRx vitamin B6. Reports PO zofran and Reglan not helping right now, therefore [facility]. [facility] ED Course: Afebrile, Pulse 71-86, BP 110-130/60-80s [...] Manny Gray; Location: Labor and Delivery - [place] Past Medical History: Diagnosis Date Abnormal maternal [...] Oral Q6H Allergies and drug reactions: Ibuprofen, [place], and Sodium citrate (bulk) HOME MEDICATIONS Medications [...] (ZOFRAN ORAL) Take by mouth. 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 Resolved Hospital Problems No resolved problems [...] tolerate PO for over 2 days - [place] ED Course: s/p 2L NS bolus, IV 4mg zofran, 12.5 benadryl, 20mg Pepcid, 12.5 phenergan, refused second phenergan dose so given Reglan 10mg, 20mEq KCL repletion - OSH labs remarkable for K 3.2, Cr 0.72, LFT WNL, lipase 59, Udip with 2+ ketone - Patient reports severe nausea, dry heaving noted at bedside - Upon transfer to [facility], P 80s, BP 120/60s - [...] presentation at 37w - Documented LTCS at [facility] - Desires possible Hx PTD - G1 at 34w - G2 at 36w COVID-19 SCREEN: Lab Results Component Value Date/Time COVID19 Not Detected 08/30/2020 11:37 PM Antepartum course reviewed - sero negative, Rnot immune, VZVnot immune, A positive/IAT negative, GBS unk, Pap ASCUS 11/2017, negHRHPV, needs repeat cotesting in 3 years - H/H, plt: 14.5 / 40.7, 187 on [facility] 171-178 bpm [...] - 08/31/2020 5:02 PM CDTFood Allergy and Cultural/Scientologist Food Preferences Consult Note: Spoke with patient's nurse today over the phone. Per nurse, patient with food allergy to oranges. Per allergy list patient with hives as reported reaction. Please see confirmed food allergy below. Confirmed Food Allergy: 1. [place] Reaction:Hives Confirmed Cultural Food Preferences: 1. None Confirmed Scientologist Food Preferences: 1. None Kary Coppola MS, RD, LD Clinical Dietitian RD Office: [phone] documented in this encounter Miscellaneous Notes Care [...] Goal: Absence of nausea/vomiting 09/01/2020 1223 by Wnedy Alan RN Outcome: Adequate for discharge 09/01/2020 [...] 09/08/2020 Routine Visit OB Satellites Lauren Fernandez, CERAMIC SAW TENDER [address] [place] [address] [phone] Name Type Priority Associated Diagnoses Order S [...] AM CDT) NA 135 135 - 145 [facility] mmol/L SERVICES K 3.6 3.5 - 5.0 [facility] mmol/L SERVICES CL 106 98 - 108 mmol/L [facility] SERVICES CO2 TOTAL 21 (L) 23 - 31 mmol/L [facility] AGAP 8 2 - 16 [facility] BUN 3 (L) 7 - 23 mg/dL [facility] SERVICES GLUCOSE 106 70 - 110 mg/dL [facility] SERVICES CREATININE 0.46 (L) 0.50 - 1.04 [facility] mg/dL SERVICES CALCIUM 8.6 8.6 - 10.6 [facility] mg/dL SERVICES eGFR Calculation 160.6 mL/min/1.73m2 [facility] (Non- SERVICES [place]) eGFR Calculation 194.7 mL/min/1.73m2 [facility] () SERVICES Specimen Blood - VENOUS Narrative Performed At Association of Glomerular Filtration Rate (GFR) and St aging [facility] SERVICES of Kidney Disease* [...] tests) . Performing Organization Address City/[facility] Phone Number [facility] CLIA: [id number] [place], [place] [address] [address] [place] [address] URINALYSIS (08/31/2020 4:07 PM CDT) Pathologist Sig [...] - URINE, CLEAN CATCH Performing Organization Address [facility] Phone Number [facility] CLIA: [id number] [place] [address] [place] [address] Type and Screen - ONCE Routine (08/31/2020 12:23 AM CDT) Pathologist [facility] ABO & RH A POSITIVE LAB Comment: Performed at [facility] Laboratory Services - [facility] Blood Bank [address] [place] [address] Toll Free: [phone] CLIA No. [id number] IAT Negative LAB Comment: Performed at [facility] Laboratory Services - [facility] Blood Bank [address] [place] [address] Toll Free: [phone] CLIA No. [id number] Specimen Blood - VENOUS Performing Organization Address City/[facility] Phone Number [facility] LAB BASIC METABOLIC PANEL (NA, K, CL, CO2, GLUCOSE, BUN, CREATININE, CA) (08/31/2020 12:17 AM CDT) [facility] NA 134 (L) 135 - 145 [facility] mmol/L SERVICES K 3.8 3.5 - 5.0 [facility] mmol/L SERVICES CL 104 98 - 108 mmol/L [facility] SERVICES CO2 TOTAL 22 (L) 23 - 31 mmol/L [facility] SERVICES AGAP 8 2 - 16 [facility] SERVICES BUN <2 (L) 7 - 23 mg/dL [facility] SERVICES GLUCOSE 87 70 - 110 mg/dL [facility] SERVICES CREATININE 0.50 0.50 - 1.04 [facility] mg/dL SERVICES CALCIUM 8.8 8.6 - 10.6 [facility] mg/dL SERVICES eGFR Calculation 145.9 mL/min/1.73m2 [facility] (Non- SERVICES [place]) eGFR Calculation 176.8 mL/min/1.73m2 [facility] () SERVICES Specimen Blood - VENOUS Narrative Performed At Association of Glomerular Filtration Rate (GFR) and St aging [facility] SERVICES of Kidney Disease* [...] Organization Address City/[facility]/Zipcode Phone Number [facility] CLIA: [id number] [place] [address] [place] [address] COVID-19 (ID NOW RAPID TESTING) (08/30/2020 11:37 PM CDT) SARS-CoV-2 Rapid ID Not Detected Not Detected [facility] NOW SERVICES Specimen Swab - NASOPHARYNGEAL SWAB Narrative Performed At [place] NOW COVID-19 Assay is an isothermal nucleic acid [facility] SERVICES amplification test intended for the qualitative detect ion of nucleic acid from SARS-CoV-2 viral RNA in nasopharynge al (EDITING COMPUTER PUBLISHER) specimens. It is used under Emergency Use [...] indicated. Performing Organization Address City/State/Zipcode Phone Number [facility] CLIA: [id number] [place] [address] [phone] [address] [facility] URINALYSIS (08/30/2020 10:44 PM CDT) Pathologist Sig nature APPEARANCE Clear Clear [facility] COLOR Yellow Yellow [facility] PH 7.0 4.8 - 8.0 [facility] SP GRAVITY 1.012 1.003 - 1.030 [facility] GLU U QUAL Normal Normal [facility] BLOOD Negative Negative [facility] KETONES 80 mg/dL (A) Negative [facility] PROTEIN Negative Negative [facility] UROBILIN Normal Normal [facility] BILIRUBIN Negative Negative [facility] NITRITE Negative Negative [facility] LEUK HO Negative Negative [facility] RBC/HPF 2 0 - 3 HPF [facility] SERVICES WBC/HPF <1 0 - 5 HPF [facility] BACTERIA Negative Negative [facility] MUCOUS Slight (A) Negative LPF [facility] SERVICES SQ EPITH 1 <=2 HPF [facility] ASCORBIC ACID Negative [facility] Specimen Urine - URINE, CLEAN CATCH Performing Organization Address City/State/Zipcode Phone Number [facility] CLIA: [id number] [place] [address] [place] [address] documented in this encounter Visit Diagnoses Diagnosis [...] mL/hr, 1,000 mL, Intravenous, ONCE, 1 dose, [facility] 08/30/20 at 2330, Routine potassium chloride [...] Address T ype Group Dates ASIA BETANCOURT [id number] 2018-Anupama P O BOX [place] [id number] MANAGED MEDICAID [place] documented as of this encounter Advance Directives Type Date Recorded Patient Phone Technician Explanati on Advance Directives and Living Will Power of News Assistant Name Relationship Healthcare Agent Relationship Co mmunication Floyd Brown Father Health Care Agent Preet Coffey Other Health Care Agent [place] Gina Spouse [facility] Health Care Agent (Mobile)
--- OUTSIDE RECORDS SUMMARY | 2020-09-12 11:33 | XMS REPORT | Summary of Care ---
:1990 Author Organization [facility] Address [address] [place] [address] Care Team Providers Name Role Phone Gamal Saravia Insurance Hmo Lauren Fernandez TECHNICAL INSTRUCTOR COURSE DEVELOPER Primary Care Provider Reason for Visit Reason Comments Assessment vomit Encounter Details Date Type Department Care Team Description 09/06/2020 Telephone [facility]- Cornelius Fernandez, As sessment (vomit) [facility] [address] [facility] [address] [place] [address] [place] [address] [phone] Allergies Active Allergy Reactions Severity Noted Date Comments Ibuprofen Hives 04/15/2014 [place] Hives 04/15/2014 Sodium Citrate (Bulk) Nausea and/or Vomiting 9 documented as of this encounter (statuses as of 09/06/2020) Medications Medication Sig Dispensed Refills Start End Date Status Date vit Take 1 Packet by 30 Each 6 Active 79-phgc-oitxq-dha mouth daily. 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 removal and reinsertion 01/18/2015 ASCUS on Pap smear 04/15/2014 Estimated Date of Delivery Comments Yes 04/11/2021 Based on Ultrasound, FHT: 127, Transverse Presentation, Placen ta Too early to evaulate documented as of this encounter (statuses as of 09/06/2020) Resolved Problems Problem Noted Date Resolved Date 37 weeks gestation of 12/18/2018 01/08/20 19 Leon Hick's contraction 12/12/2018 01/08/2019 Abnormal maternal glucose [...] management 01/25/2015 05/20/2018 Overview: ICD10 Diagnosis 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 Patient stated she wasgiven Tylenol but vomited and is pain. Stated her is taking her to [facility]. informed patient to f/u after and discharge [...] old female Patient stated she went to [facility] 08/28/20 for N/V and has received fluids [...] has been loosing weight , please call [phone] (home) documented in this encounter Plan of Treatment Date Type Specialty Care Team Description 09/08/2020 Routine Visit OB Satellites Lauren Fernandez FNP [address] [place], [place] [address] [phone] Health Maintenance Due Date Last Done Comments [...] Address T e Group Dates ASIA BETANCOURT [id number] 2018-Anupama Camacho O BOX Medic aid [facility] [place] [id number] MANAGED MEDICAID [place] documented as of this encounter Advance Directives Type Date Recorded 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
--- OUTSIDE RECORDS SUMMARY | 2020-09-12 11:33 | XMS REPORT | Summary of Care ---
:1990 Author Organization [facility] Address [address] [place] [address] Care Team Providers Name Role Phone Gamal Saravia Insurance Hmo Lauren Fernandez SKEIN DYER Primary Care Provider Reason for Visit Reason Comments Assessment vomit Encounter Details Date Type Department Care Team Description 09/06/2020 Telephone [facility]- Cornelius Fernandez, As sessment (vomit) [facility] [address] [facility] [address] [place] [address] [place] [address] [phone] Allergies Active Allergy Reactions Severity Noted Date Comments Ibuprofen Hives 04/15/2014 [place] Hives 04/15/2014 Sodium Citrate (Bulk) Nausea and/or Vomiting 9 documented as of this encounter (statuses as of 09/06/2020) Medications Medication Sig Dispensed Refills Start End Date Status Date vit Take 1 Packet by 30 Each 6 Active 88-mcmo-pxdzj-dha mouth daily. 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 Leak Operator Paraffin Plant Utility Encounter for IUD removal and reinsertion 01/18/2015 ASCUS on Pap smear 04/15/2014 Estimated Date of Delivery Comments Yes 04/11/2021 Based on Ultrasound, FHT: 127, Transverse Presentation, Placen ta Too early to evaulate documented as of this encounter (statuses as of 09/06/2020) Resolved Problems Problem Noted Date Resolved Date 37 weeks gestation of 12/18/2018 01/08/20 19 [place] Hick's contraction 12/12/2018 01/08/2019 Abnormal maternal glucose [...] management 01/25/2015 05/20/2018 Overview: ICD10 Diagnosis Term Leak Operator Paraffin Plant Utility Breast tenderness in female 01/25/2015 05/20/2018 Not immune to rubella 04/16/2014 06/04/2016 Overview: ICD10 Diagnosis Term Leak Operator Paraffin Plant Utility documented as of this encounter (statuses [...] Patient stated she went to [facility] 08/28/20 for N/V and has received fluids [...] has been loosing weight , please call [phone] (home) documented in this encounter Plan of Treatment Date Type Specialty Care Team Description 09/08/2020 Routine Visit OB Satellites Lauren Fernandez, SKEIN DYER [address] [place] [address] [phone] Health Maintenance Due Date Last Done Comments [...] Address T e Group Dates ASIA BETANCOURT [id number] 2018-Anupama Camacho O BOX Medic [place] [address] MANA[place]ED MEDICAID [place] documented as of this encounter Advance Directives Type Date Recorded Patient Hospital Clerk Explanati on Advance Directives and Living Will Power of Environmental Studies Faculty Member Name Relationship Healthcare Agent Relationship Co mmunication Floyd Brown Father Health Care Agent Preet Coffey Other Health Care Agent [place] Fuentes Spouse [facility] Care Agent (Mobile)
--- OUTSIDE RECORDS SUMMARY | 2020-09-12 11:33 | XMS REPORT | Summary of Care ---
:1990 Author Organization [facility] Address [address] [place] [address] Care Team Providers Name Role Phone Gamal Saravia Insurance Hmo Lauren Fernandez CAMPAIGN WORKER Primary Care Provider Reason for Visit Reason Comments Assessment vomit Encounter Details Date Type Department Care Team Description 09/06/2020 Telephone [facility]- Cornelius Fernandez, As sessment (vomit) [facility] [address] [facility] [address] [place] [address] [place] [address] [phone] Allergies Active Allergy Reactions Severity Noted Date Comments Ibuprofen Hives 04/15/2014 [place] Hives 04/15/2014 Sodium Citrate (Bulk) Nausea and/or Vomiting 9 documented as of this encounter (statuses as of 09/06/2020) Medications Medication Sig Dispensed Refills Start Date End Date Status vit Take 1 Packet by 30 Each 6 08/03/2020 Active 96-qzef-mthnm-dha mouth daily. 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 Mastic Sprayer Utility Encounter for IUD removal and reinsertion [...] management 01/25/2015 05/20/2018 Overview: ICD10 Diagnosis Term Mastic Sprayer Utility Breast tenderness in female 01/25/2015 05/20/2018 Not immune to rubella 04/16/2014 06/04/2016 Overview: ICD10 Diagnosis Term Mastic Sprayer Utility documented as of this encounter (statuses as of 09/06/2020) Immunizations Name Administration Dates Next Due HPV9 06/04/2016 MMR 12/20/2018 (Deferred: - not available f [facility]) TDAP 04/06/2015 TDAP (ADACEL) VACCINE [...] [facility] 08/28/20 for N/V and has received fluids [...] has been loosing weight , please call [phone] (home) documented in this encounter Plan of Treatment Date Type Specialty Care Team Description 09/08/2020 Routine Visit OB Satellites Lauren Fernandez FNP [address] [place] [address] [phone] Health Maintenance Due Date Last Done Comments [...] Address T e Group Dates ASIA BETANCOURT [id number] 2018-Anupama P O BOX Medic [place] [address] [place] MEDICA[place] documented as of this encounter Advance Directives Type Date Recorded Patient Operations And Maintenance Specialist Explanati on Advance Directives and Living Will Power of Livestock Broker Name Relationship Healthcare Agent Relationship Co mmunication Floyd Brown Father Health Care Agent Preet Coffey Other Health Care Agent [place] Fuentes Spouse [facility] Health Care Agent (Mobile)
--- OUTSIDE RECORDS SUMMARY | 2020-09-12 11:34 | XMS REPORT | Summary of Care ---
:1990 Author Organization [facility] Address [address] [place] [address] Care Team Providers Name Role Phone Gamal Saravia Insurance Hmo Lauren Fernandez Primary Care Provider Reason for Visit Reason Comments Abdominal Pain Vomiting Auth/Cert Status Reason Specialty Diagnoses / Referred By Referred To Procedures Contact Contact Emergency Medicine Adc Em ergency Dept [address] [id number] Fax: Encounter Details Date Type Department Care Team Description 09/07/2020 Emergency ADC-Emergency Depart ment Mary Carmen Jacobs, PAC [address] mal[place] [address] [place] [address] [place] [address] [phone] Allergies Active Allergy Reactions Severity Noted Date Comments Ibuprofen Hives 04/15/2014 [place] Hives 04/15/2014 Sodium Citrate (Bulk) Nausea and/or Vomiting 9 documented as of this encounter (statuses as of 09/07/2020) Medications Medication Sig Dispensed Refills Start Date End Date Status vit Take 1 Packet by 30 Each 6 08/03/2020 Active 70-jrmk-iulrl-dha mouth daily. 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 Also discussed contacting her training systems officer for termination. Pt signed AMA form and walked out of ER without incident. Brenda frost RN - 09/07/2020 2:45 PM CDTPt upset with staff regarding visitor policy states, "She just needs an messenger office. She needs toget this baby out of [...] 09/08/2020 Routine Visit OB Satellites Lauren Fernandez, VP INTEGRATION [address] [place], [place] [address] [phone] Health Maintenance Due Date Last Done Comments [...] Address T ype Group Dates ASIA BETANCOURT [id number] 2018-Anupama Camacho O BOX Medic [place] [id number] [place]ED [place] documented as of this encounter Advance Directives Type Date Recorded Patient Field Sales Agent Explanati on Advance Directives and Living Will Power of Marine Meteorologist Name Relationship Healthcare Agent Relationship Co mmunication Floyd Brown [facility] Health Care Agent Preet Coffey Other Health Care Agent [place] Fuentes Spouse First [facility] Health Care [phone] Agent (Mobile)
--- OUTSIDE RECORDS SUMMARY | 2020-09-12 11:34 | XMS REPORT | Summary of Care ---
:1990 Author Organization [facility] Address [address] [place] [address] Care Team Providers Name Role Phone Gamal Saravia Insurance Hmo Lauren Fernandez Primary Care Provider Reason for Visit Reason Comments ROUTINE VISIT (Routine) Status Reason Specialty Diagnoses / Referred By Referred To Procedures Contact Contact New Request OB Satellites Diagnoses Hyperemesis gravidarum Marisel Galvan, Procedures Discharge Follow-Up: Mate Fishing Vessel Lorena FRANKLIN [address] [facility] [id number] [place] [address] Encounter Details Date Type Department Care Team Description 09/08/2020 Routine [facility]- Cornelius Fernandez upervision of high risk in first trimester (Primary Dx); Visit ELIZ [place] Previous section complicating p regnancy; [address] [place] (vaginal after ) trial; [address]; [place], [place], [place] Nausea and vomi ting during ; [phone] Obesity in [phone] Allergies Active Allergy Reactions Severity Noted Date Comments Ibuprofen Hives 04/15/2014 [place] Hives 04/15/2014 Sodium Citrate (Bulk) Nausea and/or Vomiting 9 documented as of this encounter (statuses as of 09/08/2020) Medications Medication Sig Dispensed Refills Start Date End Date Status vit Take 1 Packet by 30 Each 6 08/03/2020 Active 87-qggm-fsihn-dha mouth daily. 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 Investigator Claims Utility Encounter for IUD removal and reinsertion 01/18/2015 ASCUS on Pap smear 04/15/2014 Estimated Date of Delivery Comments Yes 04/11/2021 Based on Ultrasound, FHT: 127, Transverse Presentation, Placen ta Too early to evaulate documented as of this encounter (statuses as of 09/08/2020) Resolved Problems Problem Noted Date Resolved Date 37 weeks gestation of 12/18/2018 01/08/20 19 [place] Hick's contraction 12/12/2018 01/08/2019 Abnormal maternal glucose [...] management 01/25/2015 05/20/2018 Overview: ICD10 Diagnosis Term Investigator Claims Utility Breast tenderness in female 01/25/2015 05/20/2018 Not immune to rubella 04/16/2014 06/04/2016 Overview: ICD10 Diagnosis Term Investigator Claims Utility documented as of this encounter (statuses as of 09/08/2020) Immunizations Name Administration Dates Next Due HPV9 06/04/2016 MMR 12/20/2018 (Deferred: - not available f [facility]) TDAP 04/06/2015 TDAP (ADACEL) [...] in this encounter Progress Notes Cornelius Fernandez, SOLAR PHOTOVOLTAIC SYSTEMS ENGINEER - 09/08/2020 10:45 AM CDT Chief complaint: Chief Complaint Patient presents with ROUTINE VISIT HPI CC: Follow Up Visit Suraj Fuentes is a 29 year old, , /White female. Patient's last menstrual period was 06/08/2020 (approximate). She is 9w2d with an intrauterine . Her estimated date of delivery is 04/11/2021, by Ultrasound. She went to [facility] ER for nausea and vomitin g, Zofran [...] Manny Gray; Location: Labor and Delivery - [place] Social History Socioeconomic History Marital status: Spouse [...] file Gets together: Not on file Attends hoahaoism service: Not on file Active member of [...] sexual or emotional abuse. Only outside cats. Confucianist: None Patient lives with spouse and kids. [...] problems of obesity on future pregnancies and/or chcf health. Return to clinic in 4 weeks. [...] Address T ype Group Dates ASIA BETANCOURT [id number] 2018-Anupama Camacho O BOX Medic aid HEALTHCARE - [facility] [id number] MANAGED MEDICAID [place] documented as of this encounter Advance Directives Type Date Recorded Patient River Captain Explanati on Advance Directives and Living Will Power of Grade Setter Name Relationship Healthcare Agent Relationship Co mmunication Floyd Brown Father Health Care Agent Preet Coffey Other Health Care Agent [place] Gina Spouse First [facility] Health Care Agent (Mobile)
--- OUTSIDE RECORDS SUMMARY | 2020-09-12 11:34 | XMS REPORT | Summary of Care ---
:1990 Author Organization [facility] Address [address] [place] [address] Care Team Providers Name Role Phone Gamal Saravia Insurance Hmo Lauren Fernandez Primary Care Provider Reason for Visit Reason Comments ROUTINE VISIT (Routine) Status Reason Specialty Diagnoses / Referred By Referred To Procedures Contact Contact New Request OB Satellites Diagnoses Hyperemesis gravidarum Marisel Galvan, Procedures Discharge Follow-Up: Blintze Roller Lorena FRANKLIN [address] [facility] [id number] [place] [address] Encounter Details Date Type Department Care Team Description 09/08/2020 Routine [facility]- Cornelius Fernandez upervision of high risk in first trimester (Primary Dx); Visit ELIZ [place] Previous section complicating p regnancy; [address] [place] NANCY (vaginal after ) trial; [address] [address]; [place], [place], [place] Nausea and vomi ting during ; [phone] Obesity in [phone] Allergies Active Allergy Reactions Severity Noted Date Comments Ibuprofen Hives 04/15/2014 [place] Hives 04/15/2014 Sodium Citrate (Bulk) Nausea and/or Vomiting 9 documented as of this encounter (statuses as of 09/08/2020) Medications Medication Sig Dispensed Refills Start Date End Date Status vit Take 1 Packet by 30 Each 6 08/03/2020 Active 04-oycy-atquq-dha mouth daily. 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 Iron Assorter Utility Encounter for IUD removal and reinsertion 01/18/2015 ASCUS on Pap smear 04/15/2014 Estimated Date of Delivery Comments Yes 04/11/2021 Based on Ultrasound, FHT: 127, Transverse Presentation, Placen ta Too early to evaulate documented as of this encounter (statuses as of 09/08/2020) Resolved Problems Problem Noted Date Resolved Date 37 weeks gestation of 12/18/2018 01/08/20 19 [place] Hick's contraction 12/12/2018 01/08/2019 Abnormal maternal glucose [...] management 01/25/2015 05/20/2018 Overview: ICD10 Diagnosis Term Iron Assorter Utility Breast tenderness in female 01/25/2015 05/20/2018 Not immune to rubella 04/16/2014 06/04/2016 Overview: ICD10 Diagnosis Term Iron Assorter Utility documented as of this encounter (statuses [...] in this encounter Progress Notes Cornelius Fernandez, TUNNEL FORM PLACING SUPERVISOR - 09/08/2020 10:45 AM CDT Chief complaint: Chief Complaint Patient presents with ROUTINE VISIT HPI CC: Follow Up Visit Suraj Fuentes is a 29 year old, , /White female. Patient's last menstrual period was 06/08/2020 (approximate). She is 9w2d with an intrauterine . Her estimated date of delivery is 04/11/2021, by Ultrasound. She went to [facility] ER for nausea and vomitin g, [...] Manny Gray; Location: Labor and Delivery - [place] Social History Socioeconomic History Marital status: Spouse [...] file Gets together: Not on file Attends bahai service: Not on file Active member of [...] sexual or emotional abuse. Only outside cats. Evangelical: None Patient lives with spouse and kids. [...] Subscriber ID Effective Phone Address [facility] Dates ASIA BETANCOURT [id number] 2018-Anupama HIDALGO Medic [place] [id number] MA[place]ED MEDICA[place] documented as of this encounter Advance Directives Type Date Recorded Patient Allergy Physician Explanati on Advance Directives and Living Will Power of Business Process Associate Name Relationship Healthcare Agent Relationship Co mmunication Floyd Brown Father Health Care Agent Preet Coffey Other Health Care Agent [place] Fuentes Spouse First [facility] Health Care [phone] Agent (Mobile)
--- OUTSIDE RECORDS SUMMARY | 2020-09-12 11:35 | XMS REPORT | Summary of Care ---
:1990 Author Organization [facility] Address [address] [place] [address] Care Team Providers Name Role Phone Gamal Saravia Insurance Hmo Lauren Fernandez PERSONNEL SECURITY ASSISTANT Primary Care Provider Reason for Visit Reason Comments Other PRIOR AUTH go to [facility] [id number] Encounter Details Date Type Department Care Team Description 09/08/2020 Telephone [facility]- Cornelius Fernandez, Ot her (PRIOR AUTH go [facility] to [facility] [address] [facility] [id number]) [place] [address] [place], [place] [phone] [address] [phone] Allergies Active Allergy Reactions Severity Noted Date Comments Ibuprofen Hives 04/15/2014 [place] Hives 04/15/2014 Sodium Citrate (Bulk) Nausea and/or Vomiting 9 documented as of this encounter (statuses as of 09/09/2020) Medications Medication Sig Dispensed Refills Start Date End Date Status vit Take 1 Packet by 30 Each 6 08/03/2020 Active 95-rrkw-pfarp-dha mouth daily. (SELECT-OB + DHA) 29 mg [...] as of this encounter (statuses as of 09/09/2020) Active Problems Problem Noted Date Hyperemesis gravidarum [...] Obesity in 01/25/2015 Overview: ICD10 Diagnosis Term Nurses' Registry Director Utility Encounter for IUD removal and reinsertion 01/18/2015 ASCUS on Pap smear 04/15/2014 Estimated Date of Delivery Comments Yes 04/11/2021 Based on Ultrasound, FHT: 127, Transverse Presentation, Placen ta Too early to evaulate documented as of this encounter (statuses as of 09/09/2020) Resolved Problems Problem Noted Date Resolved Date 37 weeks gestation of 12/18/2018 01/08/20 19 [place] Hick's contraction 12/12/2018 01/08/2019 Abnormal maternal glucose [...] management 01/25/2015 05/20/2018 Overview: ICD10 Diagnosis Term Nurses' Registry Director Utility Breast tenderness in female 01/25/2015 05/20/2018 Not immune to rubella 04/16/2014 06/04/2016 Overview: ICD10 Diagnosis Term Nurses' Registry Director Utility documented as of this encounter (statuses as of 09/09/2020) Immunizations Name Administration Dates Next Due HPV9 [...] Telephone Encounter - Ysabel Noyola RN - 09/09/2020 1:52 PM CDT Processed PA questions via cover my meds. Awaiting response. YSABEL NOYOLA RN 09/09/2020 1:52 PM Telephone Encounter - Leyla Sapp - 09/08/2020 4:09 PM CDTGo to covermymeds Doxylamine [id number] signed by Leyla Sapp at 09/08/2020 4:13 PM CDT documented in this encounter Plan of Treatment Date Type Specialty Care Team Description 10/06/2020 Routine Visit OB Satellites Lauren Fernandez, PERSONNEL SECURITY ASSISTANT [address] [place], [place] [address] [phone] Health Maintenance Due Date Last Done Comments [...] Address T ype Group Dates ASIA BETANCOURT [id number] 2018-Anupama HIDALGO Medic aid [place] [id number] [place] MEDICA[place] documented as of this encounter Advance Directives Type Date Recorded Patient Supervisor Shed Workers Explanati on Advance Directives and Living Will Power of Operators School Manager Name Relationship Healthcare Agent Relationship Co mmunication Floyd Brown [facility] Health Care Agent Preet Coffey Other Health Care Agent [place] Fuentes Spouse First [facility] Health Care Agent (Mobile)
--- OUTSIDE RECORDS SUMMARY | 2020-09-12 11:35 | XMS REPORT | Summary of Care ---
:1990 Author Organization [facility] Address [address] [place] [address] Care Team Providers Name Role Phone Gamal Saravia Insurance Hmo Lauren Fernandez Primary Care Provider Reason for Visit Reason Comments ROUTINE VISIT (Routine) Status Reason Specialty Diagnoses / Referred By Referred To Procedures Contact Contact New Request OB Satellites Diagnoses Hyperemesis gravidarum Marisel Galvan, Procedures Discharge Follow-Up: Advertising Associate Lorena FRANKLIN [address] [facility] [id number] [place] [address] Encounter Details Date Type Department Care Team Description 09/08/2020 Routine [facility]- Cornelius Fernandez upervision of high risk in first trimester (Primary Dx); Visit ELIZ [place] Previous section complicating p regnancy; [address] V NANCY (vaginal after ) trial; [address] [place] [address]; [place], [place], [place] Nausea and vomi ting during ; [phone] Obesity in [phone] Allergies Active Allergy Reactions Severity Noted Date Comments Ibuprofen Hives 04/15/2014 [place] Hives 04/15/2014 Sodium Citrate (Bulk) Nausea and/or Vomiting 9 documented as of this encounter (statuses as of 09/08/2020) Medications Medication Sig Dispensed Refills Start Date End Date Status vit Take 1 Packet by 30 Each 6 08/03/2020 Active 16-nroq-pqika-dha mouth daily. 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 Electricians Top Helper Utility Encounter for IUD removal and reinsertion 01/18/2015 ASCUS on Pap smear 04/15/2014 Estimated Date of Delivery Comments Yes 04/11/2021 Based on Ultrasound, FHT: 127, Transverse Presentation, Placen ta Too early to evaulate documented as of this encounter (statuses as of 09/08/2020) Resolved Problems Problem Noted Date Resolved Date 37 weeks gestation of 12/18/2018 01/08/20 19 [place] Hick's contraction 12/12/2018 01/08/2019 Abnormal maternal glucose [...] management 01/25/2015 05/20/2018 Overview: ICD10 Diagnosis Term Electricians Top Helper Utility Breast tenderness in female 01/25/2015 05/20/2018 Not immune to rubella 04/16/2014 06/04/2016 Overview: ICD10 Diagnosis Term Electricians Top Helper Utility documented as of this encounter (statuses [...] in this encounter Progress Notes Cornelius Fernandez, AIRPLANE PILOT HELPER - 09/08/2020 10:45 AM CDT Chief complaint: Chief Complaint Patient presents with ROUTINE VISIT HPI CC: Follow Up Visit Suraj Fuentes is a 29 year old, , /White female. Patient's last menstrual period was 06/08/2020 (approximate). She is 9w2d with an intrauterine . Her estimated date of delivery is 04/11/2021, by Ultrasound. She went to [facility] ER for nausea and vomitin g, [...] Manny Gray; Location: Labor and Delivery - [place] Social History Socioeconomic History Marital status: Spouse [...] file Gets together: Not on file Attends jehovah's witness service: Not on file Active member of [...] sexual or emotional abuse. Only outside cats. Synagogue: None Patient lives with spouse and kids. [...] problems of obesity on future pregnancies and/or half-way health. Return to clinic in 4 weeks. [...] 10/06/2020 Routine Visit OB Satellites Lauren Fernandez, AIRPLANE PILOT HELPER [address] [place], [place] [address] [phone] Health Maintenance Due Date Last Done Comments [...] Address T ype Group Dates ASIA BETANCOURT [id number] 2018-Anupama HIDALGO Medic [place] [id number] MA[place]GED MED[place]ID [place] documented as of this encounter Advance Directives Type Date Recorded Patient Blending Line Attendant Explanati on Advance Directives and Living Will Power of Fish Processor Name Relationship Healthcare Agent Relationship Co mmunication Floyd Brown Father Health Care Agent Preet Milagrosteph Other Health Care Agent [place] Fuentes Spouse First [facility] Health Care [phone] Agent (Mobile)
--- OUTSIDE RECORDS SUMMARY | 2020-09-12 11:35 | XMS REPORT | Summary of Care ---
:1990 Author Organization [facility] Address [address] [place] [address] Care Team Providers Name Role Phone Gamal Saravia Insurance Hmo Lauren Fernandez PROMOS EXECUTIVE PRODUCER Primary Care Provider Reason for Visit Reason Comments Rx Concern/Question prior auth go to cover mymed s [id number] Encounter Details Date Type Department Care Team Description 09/07/2020 Telephone [facility]- Cornelius Fernandez, Rx Concern/Question Ragland FNP (prior auth go to [facility] [address] [facility] cover mymeds [id number]) [place] [address] [place], [place] [phone] [address] [phone] Allergies Active Allergy Reactions Severity Noted Date Comments Ibuprofen Hives 04/15/2014 [place] Hives 04/15/2014 Sodium Citrate (Bulk) Nausea and/or Vomiting 9 documented as of this encounter (statuses as of 09/08/2020) Medications Medication Sig Dispensed Refills Start Date End Date Status vit Take 1 Packet by 30 Each 6 08/03/2020 Active 72-gdks-ivajd-dha mouth daily. 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 Master Utility Encounter for IUD removal and reinsertion 01/18/2015 ASCUS on Pap smear 04/15/2014 Estimated Date of Delivery Comments Yes 04/11/2021 Based on Ultrasound, FHT: 127, Transverse Presentation, Placen ta Too early to evaulate documented as of this encounter (statuses as of 09/08/2020) Resolved Problems Problem Noted Date Resolved Date 37 weeks gestation of 12/18/2018 01/08/20 19 [place] Hick's contraction 12/12/2018 01/08/2019 Abnormal maternal glucose [...] management 01/25/2015 05/20/2018 Overview: ICD10 Diagnosis Term Web Master Utility Breast tenderness in female 01/25/2015 05/20/2018 Not immune to rubella 04/16/2014 06/04/2016 Overview: ICD10 Diagnosis Term Web Master Utility documented as of this encounter (statuses [...] for authorization of nausea medication. 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
--- OUTSIDE RECORDS SUMMARY | 2020-09-12 11:36 | XMS REPORT | Summary of Care ---
:1990 Author Organization [facility] Address [address] [place] [address] Care Team Providers Name Role Phone Gamal Saravia Insurance Hmo Lauren Fernandez Primary Care Provider Reason for Visit Reason Comments Abdominal Pain Encounter Details Date Type Department Care Team Description 09/09/2020 [facility], Abdominal Pain [facility] [address] [facility] [address] [place] [address] [facility] [phone] [place], [place] [address] [phone] Allergies Active Allergy Reactions Severity Noted Date Comments Ibuprofen Hives 04/15/2014 [place] Hives 04/15/2014 Sodium Citrate (Bulk) Nausea and/or Vomiting 9 documented as of this encounter (statuses as of 09/09/2020) Medications Medication Sig Dispensed Refills Start Date End Date Status vit Take 1 Packet by 30 Each 6 08/03/2020 Active 08-ggil-mjhqx-dha mouth daily. 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 Environmental Test Technician Utility Encounter for IUD removal and reinsertion [...] management 01/25/2015 05/20/2018 Overview: ICD10 Diagnosis Term Environmental Test Technician Utility Breast tenderness in female 01/25/2015 05/20/2018 Not immune to rubella 04/16/2014 06/04/2016 Overview: ICD10 Diagnosis Term Environmental Test Technician Utility documented as of this encounter (statuses [...] this encounter Miscellaneous Notes Telephone Encounter - Graciela Burks WHCNP - 09/09/2020 4:18 PM CDT Called patient, a gentleman answered reporting he is Suraj;s patient but like a father figure to her. He proceed to put Suraj on speaker phone. The patient is sounds as though she is grimacing in pain, can barely get her words out, reporting that it feels as though her "insides are being ripped out." she states she was seen at the [place] ER earlier today but reports no imaging was done, she was only given IV fluids. Patient advised to go to L&D for further evaluation, the gentleman and patient agreed and reported that he would to take her to [facility] L&D. Report called and given to Sharlene MEJÍA. 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 Health Care Agent (Mobile)
--- OUTSIDE RECORDS SUMMARY | 2020-09-12 11:36 | XMS REPORT | Summary of Care ---
:1990 Author Organization [facility] Address [address] [place] [address] Care Team Providers Name Role Phone Gamal Saravia Insurance [employer] Lauren Fernandez Primary Care Provider Reason for Visit Reason Comments Assessment Encounter Details Date Type Department Care Team Description 09/09/2020 Telephone [facility] RMP- A Cornelius Allen FNP Assessment [address] [facility] [address] [place] [address] [place] [address] [phone] Allergies Active Allergy Reactions Severity Noted Date Comments Ibuprofen Hives 04/15/2014 [place] Hives 04/15/2014 Sodium Citrate (Bulk) Nausea and/or Vomiting 9 documented as of this encounter (statuses as of 09/09/2020) Medications Medication Sig Dispensed Refills Start Date End Date Status vit Take 1 Packet by 30 Each 6 08/03/2020 Active [id number]-dha mouth daily. 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 Lie Detector Operator Utility Encounter for IUD removal and [...] management 01/25/2015 05/20/2018 Overview: ICD10 Diagnosis Term Lie Detector Operator Utility Breast tenderness in female 01/25/2015 05/20/2018 Not immune to rubella 04/16/2014 06/04/2016 Overview: ICD10 Diagnosis Term Lie Detector Operator Utility documented as of this encounter (statuses as of 09/09/2020) Immunizations Name Administration Dates Next Due HPV9 06/04/2016 MMR 12/20/2018 (Deferred: - not available f [facility]) TDAP 04/06/2015 TDAP (ADACEL) VACCINE [...] this encounter Miscellaneous Notes Telephone Encounter - APPLE Rangel - 09/09/2020 2:39 PM CDTPerson calling is requesting to speak with provider didn't give reason just stated does not want to speak with nurse. Please call documented in this encounter Plan of Treatment Date Type Specialty Care Team Description 10/06/2020 Routine Visit OB Satellites Lauren Fernandez, PLUMBING ENGINEERING DRAFTSPERSON [address] [id number] 15 [phone] Health Maintenance Due Date Last Done Comments [...] / Subscriber ID Effective Phone Address T [facility] Group Dates ASIA BETANCOURT [id number] 2018-Anupama Camacho [address] [facility]OX [facility] [place] [id number] MANAGED MEDICAID [place], [place]ICA[place] documented as of this encounter Advance Directives Type Date Recorded Patient Radio Engineer Explanati on Advance Directives and Living Will Power of [place] Name Relationship Healthcare Agent Relationship Co mmunication Floyd Brown Father Health Care Agent Preet Cofefy Other Health Care Agent [place] Gina Spouse [facility] [phone] Agent (Mobile)
--- OUTSIDE RECORDS SUMMARY | 2020-09-12 11:36 | XMS REPORT | Summary of Care ---
:1990 Author Organization [facility] - [facility] Address [address] [place] [address] Care Team Providers Name Role Phone Gamal Saravia Insurance Hmo Lauren Fernandez SHELF F[employer]ER Primary Care Provider Reason for Referral (Routine) Status Reason Specialty Diagnoses / Procedures Referred By Lauren marquez To Contact Contact New Request Diagnoses Nausea and vomiting, intractability of vomiting not specified, unspecified vomiting type Hyperemesis gravidarum Prema Hernandez MD Procedures Discharge Follow-Up: [facility] [address] [place] [address]. [place] [address] Radiology Services (STAT) Status Reason Specialty Diagnoses / Referred By Referred To Procedures Contact Contact New Request Diagnostic Diagnoses Nausea and vomiting, intractability of vomiting not specified, unspecified vomiting type Generalized abdominal pain Marcelo Carpio Radiology Procedures US ABDOMEN LIMITED MD Keerthi [address] [place] [address] [id number] [place] [address] Reason for Visit Reason Comments Abdominal Pain Auth/Cert Status Reason Specialty Diagnoses / Referred By Referred To Procedures Contact Contact Emergency Medicine [facility] [address] [place] [address] Fax: Encounter Details Date Type Department Care Team Description 09/09/2020 - Hospital Encounter Obstetrics and ShirinMarcelo MD [id number] [place], [place] [id number] Nausea & vomiting 09/10/2020 Gynecology (J10C) Karlie Brown MD [id number] [place], [place] [id number] [address] [place] [address] Allergies Active Allergy Reactions Severity Noted Date Comments Ibuprofen Hives 04/15/2014 [place] Hives 04/15/2014 Sodium Citrate (Bulk) Nausea and/or Vomiting 9 documented as of this encounter (statuses as of 09/10/2020) Medications Medication Sig Dispensed Refills Start Date End Date Status vit Take 1 Packet by 30 Each 6 08/03/2020 Active 10-iszn-hdnhv-dha mouth daily. 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 Encounter for IUD removal and reinsertion 01/18/2015 ASCUS on Pap smear 04/15/2014 Estimated Date of Delivery Comments Yes 04/11/2021 Based on Ultrasound, FHT: 127, Transverse Presentation, Placen ta Too early to evaulate documented as of this encounter (statuses as of 09/10/2020) Resolved Problems Problem Noted Date Resolved Date 37 weeks gestation of 12/18/2018 01/08/20 19 [place] Hick's contraction 12/12/2018 01/08/2019 Abnormal maternal glucose [...] management 01/25/2015 05/20/2018 Overview: ICD10 Diagnosis Term 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 documented as of this encounter Last Filed Vital Signs Vital Sign Reading Time Taken Comments Blood Pressure 112/49 09/10/2020 4:00 PM CDT Pulse 84 09/10/2020 4:00 PM CDT Temperature 36.8 C (98.2 F) 09/10/2020 4:00 PM CDT Respiratory Rate 18 09/10/2020 4:00 PM CDT Oxygen Saturation 99% 09/10/2020 4:00 PM CDT Inhaled Oxygen Concentration - - Weight 81.2 kg (179 lb 0.2 oz) 09/09/2020 7:38 PM CDT Height - - Body Mass Index 30.73 09/08/2020 10:29 AM CDT documented in this encounter Progress Notes Roseann Bowens LMSW - 09/10/2020 4:39 PM CDTSocial Worker Note Nurse informed SW, patient needed transport home. provided Voucher #[id number] for [employer] . Roseann Bowens LMSW [employer] [facility] C: [phone] O: [phone] [email or web address] Poonam Solomon MD - 09/10/2020 4:00 PM CDTR1 CASTLE CALL PROGRESS NOTE Suraj Fuentes [id number] 09/10/2020, 4:00 PM Notified by RN that patient is now tolerating a regular diet. Pt previously on oral antiemetics and adamantly desires to be d/c at this time. Will d/c with home medications. Precautions given, f/u withregular PNV. Discussed with Dr. Eller. Poonam Solomon MD ELECTROLYTIC ETCHER PGY-1 09/10/20 documented in this encounter H&P Notes Destinee Wiseman MD - 09/10/2020 1:51 AM CDT TRIAGE/L&D HISTORY & PHYSICAL IDENTIFYING DATA Suraj Fuentes is 29 year old, /White, 9w4d, female with DYLAN 04/11/2021, by Ultrasound. : 1990 Primary Care Physician: Cornelius Fernandez CHIEF COMPLAINT Intractable N/V, abdominal pain HISTORY OF PRESENT ILLNESS Suraj Fuentes is a 29 year old at 9w4d who presents for intractable nausea and vomiting and severe abdominal pain. She reports initial onset of diffuse abdominal pain, followedby wretching, nausea and vomiting. She reports taking diclegis and compazine at home as prescribed after her last inpatient admission. She reports being seen at multiple EDs for the same complaint overthe past few days with only temporary relief. She is unable to pinpoint her abdominal pain to one general area, and instead waves her hands all over. Denies sick contacts or new foods. Patient denies vaginal bleeding, denies leakage of fluid, denies contractions. Patient denies headache, admits nausea/vomiting, admits RUQ pain, denies visual abnormalities. Unable to feel movement at this gestational age. PAST OBSTETRIC HISTORY OB History Para Term [...] Patient Active Problem List Diagnosis Date Noted Nausea & vomiting 09/10/2020 9 weeks gestation of 09/10/2020 Hyperemesis gravidarum before end of 22 week [...] Manny Gray; Location: Labor and Delivery - [place] Past Medical History: Diagnosis Date Abnormal maternal glucose tolerance, antepartum 12/11/2018 Resolved per pt report Anxiety Resolved per pt report Anxiety and depression resolved Mental disorder Ovarian cyst recently found out of dx. CURRENT HEALTH STATUS Medications: Current Facility-Administered Medications Medication Dose Route Frequency Last Rate Last Dose acetaminophen (TYLENOL) tablet 650 mg 650 mg Oral Q6HPRN alum-mag hydroxide-simeth (MAALOX PLUS / MAG-AL PLUS) 200-200-20 mg/5 mL suspension 30 mL 30 mLOral Q6HPRN docusate calcium (SURFAK) capsule 240 mg 240 mg Oral QHSPRN magnesium hydroxide (MILK OF MAGNESIA) 400 mg/5 mL suspension 30 mL 30 mL Oral QDAILYPRN vitamin w/FA (PRENATABS RX) tablet 1 tablet 1 tablet Oral DAILY proCHLORperazine (COMPAZINE) 10 mg in NaCl 0.9% (NS) piggyback 10 mg IV Piggyback Q8H proMETHazine (PHENERGAN) 25 mg in NaCl 0.9% (NS) 50 mL IV piggyback 25 mg IV Piggyback Q8H 25mg at 09/10/20 0632 Allergies and drug reactions: Ibuprofen, [place], and Sodium citrate (bulk) HOME MEDICATIONS Prescriptions Prior to Admission Medications Prior to Admission Medication Sig Dispense Refill Last Dose doxylamine-pyridoxine, vit B6, (DICLEGIS) 10-10 mg per tablet Take 2 tablets by mouth at bedtime. 90 tablet 3 proCHLORperazine 10 mg tablet Take 1 tablet by mouth every 6 (six) hours as needed (for nausea and vomiting unresponsive to doxylamine/pyridoxine). 20 tablet 0 pyridoxine, VITAMIN B-6, 25 mg tablet Take 1 tablet by mouth every 6 (six) hours for 42 days. 120 tablet 1 vit 15-gtiv-acznv-dha (SELECT-OB + DHA) 29 mg iron-1 mg [...] Psychiatry NoFHx Other - see comments NoFHx REVIEW OF SYSTEMS General: negative Skin: negative HEENT: negative Neck: negative HEME: negative Resp: negative Cardio: negative GI: (+) abdominal pain, (+) nausea, (+) vomiting : negative Endo: negative Neuro: negative Back: negative AMANDA: negative Psych: negative VITAL SIGNS BP: (114-135)/(66-92) Temp: [37 C (98.6 F)] Temp source: Oral (09/10 0800) Pulse: [66-101] Resp: [16-20] SpO2: [97 %-100 %] Height: -- Weight: [81.2 kg (179 lb 0.2 oz)] BMI (calculated): [0] PHYSICAL EXAMINATIONS General: patient alert and in no acute distress and comfortable, no distress HEENT: symmetric, negative for masses Lungs: unlabored breathing Cardiology: peripheral pulses intact and regular Abdomen: soft, tender to palpation in all quadrants, non-distended, guarding present without reboundtenderness noted, no liver, spleen or abnormal masses palpated and Gravid. No peritoneal signs on exam, able to tolerate lifting bed without pain. Morris sign negative on BSUS. Extremities: no clubbing, cyanosis, or edema Neuro: patient moving all extremities, no facial droop : deferred REVIEW OF LABORATORY, PATHOLOGY, AND RADIOLOGY DATA Lab results: Type & Screen Lab Results Component Value Date/Time IABORH A POSITIVE 08/31/2020 12:23 AM IAT Negative 08/31/2020 12:23 AM Serologies Lab Results Component Value Date/Time VZVIGG [...] NEGATIVE 04/06/2015 03:10 PM Group B Strep Lab Results Component Value Date/Time CGB Negative 12/10/2018 03:21 PM GTT Lab Results Component Value Date/Time GLUF 68 (L) 12/12/2018 07:47 AM LGOT5CO 124 08/03/2020 02:17 PM GLU3H 108 12/12/2018 10:50 AM CBC Lab Results Component Value Date/Time HGB 13.9 09/09/2020 08:03 PM HGB 15.2 (H) 01/04/2015 02:50 PM HCT 39.3 09/09/2020 08:03 PM HCT 43.5 01/04/2015 02:50 PM PLT 180 09/09/2020 08:03 PM PLT 202 01/04/2015 02:50 PM Active Hospital Problems Diagnosis Date Noted Nausea & vomiting 09/10/2020 9 weeks gestation of 09/10/2020 Resolved Hospital Problems No resolved problems to display. Present on Admission: Nausea & vomiting 9 weeks gestation of ASSESSMENT AND PLAN Suraj Luly Fuentes is a 29 year old at 9w4d by u(7) who presents for abdominal pain and intractable nausea and vomiting. Hyperemesis Gravidarum -based on 5 weeks persistent n/v, ketonuria, weight loss -weight 85.4 kg at initial --> today 81.2 kg -reports taking diclegis and compazine at home without relief -endorses multiple ED visits in the past 5 days for the same complaint -N/V not associated with meals, unable to keep anything down for days according to patient. -denies sick contacts or new foods -s/p phenergan and reglan in ED with moderate relief -electrolytes WNL, UA with 80 ketones -plan: alternating phenergan and compazine q8h, repeat electrolytes, PO challenge in AM Abdominal pain -endorses diffuse abdominal pain that started prior to nausea/vomiting -s/p morphine and fentanyl in ED -VSS, afebrile -diffuse in character, not localized -ED provider did gallbladder US showing sludge and possible small stones and unremarkable pancreas without gas -s/p appendectomy -Abdomen: soft, tender to palpation in all quadrants, non-distended, guarding present without rebound tenderness noted, no liver, spleen or abnormal masses palpated and Gravid. No peritoneal signs on exam, able to tolerate lifting bed without pain. Morris sign negative on BSUS. -Plan Tylenol 650 mg q6h prn for pain Prev x1 - G1, G2 via - G3 via PCS 11/2018 due to breech presentation at 37w - Documented LTCS at [facility] - Desires possible Hx PTD - G1 at 34w - G2 at 36w COVID-19 SCREEN: Lab Results Component Value Date/Time COVID19 Not Detected 09/10/2020 02:30 AM Antepartum course reviewed - early 1 h 124, sero negative, Rnot immune, VZVequiv, A positive/IAT negative, GBS unk, Pap ASCUS 11/27/17 - H/H, plt: 13.9 / 39.3, 180 [facility] Presentation on admission: variable - too early to eval placenta - FHT 154 bpm DISPO: Admit for IV antiemetics in the setting of hyperemesis. PO challenge in AM D/w Dr. Mason. Destinee Wiseman MD PGY-2 ELECTROLYTIC ETCHER Personal Pager: [phone] 09/10/20 1:51 AM Associated attestation - Karlie Brown MD - 09/10/2020 11:01 AM CDTI personally examined the patient on 09/10/[address] Wiseman's resident note as written. I actively participated in the decision-making process. Please see the resident's note for additional details. documented in this encounter Consult Notes Destinee Wiseman MD - 09/10/2020 12:20 AM CDTAssociated Order(s): CONSULT ELECTROLYTIC ETCHER TRIAGE/L&D HISTORY & PHYSICAL IDENTIFYING DATA Suraj Fuentes is 29 year old, /White, 9w4d, female with DYLAN 04/11/2021, by Ultrasound. : 1990 Primary Care Physician: Cornelius Fernandez CHIEF COMPLAINT Intractable N/V, abdominal pain HISTORY OF PRESENT ILLNESS Suraj Fuentes is a 29 year old at 9w4d who presents for intractable nausea and vomiting and severe abdominal pain. She reports initial onset of diffuse abdominal pain, followedby wretching, nausea and vomiting. She reports taking diclegis and compazine at home as prescribed after her last inpatient admission. She reports being seen at multiple EDs for the same complaint overthe past few days with only temporary relief. She is unable to pinpoint her abdominal pain to one general area, and instead waves her hands all over. Denies sick contacts or new foods. Patient denies vaginal bleeding, denies leakage of fluid, denies contractions. Patient denies headache, admits nausea/vomiting, admits RUQ pain, denies visual abnormalities. Unable to feel movement at this gestational age. PAST OBSTETRIC HISTORY OB History Para Term [...] Patient Active Problem List Diagnosis Date Noted Nausea & vomiting 09/10/2020 9 weeks gestation of 09/10/2020 Hyperemesis gravidarum before end of 22 week [...] Manny Gray; Location: Labor and Delivery - [place] Past Medical History: Diagnosis Date Abnormal maternal glucose tolerance, antepartum 12/11/2018 Resolved per pt report Anxiety Resolved per pt report Anxiety and depression resolved Mental disorder Ovarian cyst recently found out of dx. CURRENT HEALTH STATUS Medications: Current Facility-Administered Medications Medication Dose Route Frequency Last Rate Last Dose acetaminophen (TYLENOL) tablet 650 mg 650 mg Oral Q6HPRN alum-mag hydroxide-simeth (MAALOX PLUS / MAG-AL PLUS) 200-200-20 mg/5 mL suspension 30 mL 30 mLOral Q6HPRN docusate calcium (SURFAK) capsule 240 mg 240 mg Oral QHSPRN magnesium hydroxide (MILK OF MAGNESIA) 400 mg/5 mL suspension 30 mL 30 mL Oral QDAILYPRN vitamin w/FA (PRENATABS RX) tablet 1 tablet 1 tablet Oral DAILY proCHLORperazine (COMPAZINE) 10 mg in NaCl 0.9% (NS) piggyback 10 mg IV Piggyback Q8H proMETHazine (PHENERGAN) 25 mg in NaCl 0.9% (NS) 50 mL IV piggyback 25 mg IV Piggyback Q8H 25mg at 09/10/20 0632 Allergies and drug reactions: Ibuprofen, [place], and Sodium citrate (bulk) HOME MEDICATIONS Medications Prior to Admission Medication Sig Dispense Refill Last Dose doxylamine-pyridoxine, vit B6, (DICLEGIS) 10-10 mg per tablet Take 2 tablets by mouth at bedtime. 90 tablet 3 proCHLORperazine 10 mg tablet Take 1 tablet by mouth every 6 (six) hours as needed (for nausea and vomiting unresponsive to doxylamine/pyridoxine). 20 tablet 0 pyridoxine, VITAMIN B-6, 25 mg tablet Take 1 tablet by mouth every 6 (six) hours for 42 days. 120 tablet 1 vit 05-nlui-lfbzp-dha (SELECT-OB + DHA) 29 mg iron-1 mg [...] Psychiatry NoFHx Other - see comments NoFHx REVIEW OF SYSTEMS General: negative Skin: negative HEENT: negative Neck: negative HEME: negative Resp: negative Cardio: negative GI: (+) abdominal pain, (+) nausea, (+) vomiting : negative Endo: negative Neuro: negative Back: negative AMANDA: negative Psych: negative VITAL SIGNS BP: (114-135)/(66-92) Temp: [37 C (98.6 F)] Temp source: Oral (09/10 0800) Pulse: [66-101] Resp: [16-20] SpO2: [97 %-100 %] Height: -- Weight: [81.2 kg (179 lb 0.2 oz)] BMI (calculated): [0] PHYSICAL EXAMINATIONS General: patient alert and in no acute distress and comfortable, no distress HEENT: symmetric, negative for masses Lungs: unlabored breathing Cardiology: peripheral pulses intact and regular Abdomen: soft, tender to palpation in all quadrants, non-distended, guarding present without reboundtenderness noted, no liver, spleen or abnormal masses palpated and Gravid. No peritoneal signs on exam, able to tolerate lifting bed without pain. Morris sign negative on BSUS. Extremities: no clubbing, cyanosis, or edema Neuro: patient moving all extremities, no facial droop : deferred REVIEW OF LABORATORY, PATHOLOGY, AND RADIOLOGY DATA Lab results: Type & Screen Lab Results Component Value Date/Time IABORH A POSITIVE 08/31/2020 12:23 AM IAT Negative 08/31/2020 12:23 AM Serologies Lab Results Component Value Date/Time VZVIGG [...] NEGATIVE 04/06/2015 03:10 PM Group B Strep Lab Results Component Value Date/Time CGB Negative 12/10/2018 03:21 PM GTT Lab Results Component Value Date/Time GLUF 68 (L) 12/12/2018 07:47 AM CBHC5JG 124 08/03/2020 02:17 PM GLU3H 108 12/12/2018 10:50 AM CBC Lab Results Component Value Date/Time HGB 13.9 09/09/2020 08:03 PM HGB 15.2 (H) 01/04/2015 02:50 PM HCT 39.3 09/09/2020 08:03 PM HCT 43.5 01/04/2015 02:50 PM PLT 180 09/09/2020 08:03 PM PLT 202 01/04/2015 02:50 PM Active Hospital Problems Diagnosis Date Noted Nausea & vomiting 09/10/2020 9 weeks gestation of 09/10/2020 Resolved Hospital Problems No resolved problems to display. Present on Admission: Nausea & vomiting 9 weeks gestation of ASSESSMENT AND PLAN Suraj Fuentes is a 29 year old at 9w4d by u(7) who presents for abdominal pain and intractable nausea and vomiting. Hyperemesis Gravidarum -based on 5 weeks persistent n/v, ketonuria, weight loss -weight 85.4 kg at initial --> today 81.2 kg -reports taking diclegis and compazine at home without relief -endorses multiple ED visits in the past 5 days for the same complaint -N/V not associated with meals, unable to keep anything down for days according to patient. -denies sick contacts or new foods -s/p phenergan and reglan in ED with moderate relief -electrolytes WNL, UA with 80 ketones -plan: alternating phenergan and compazine q8h, repeat electrolytes, PO challenge in AM Abdominal pain -endorses diffuse abdominal pain that started prior to nausea/vomiting -s/p morphine and fentanyl in ED -VSS, afebrile -diffuse in character, not localized -ED provider did gallbladder US showing sludge and possible small stones and unremarkable pancreas without gas -s/p appendectomy -Abdomen: soft, tender to palpation in all quadrants, non-distended, guarding present without rebound tenderness noted, no liver, spleen or abnormal masses palpated and Gravid. No peritoneal signs on exam, able to tolerate lifting bed without pain. Morris sign negative on BSUS. -Plan Tylenol 650 mg q6h prn for pain Prev x1 - G1, G2 via - G3 via PCS 11/2018 due to breech presentation at 37w - Documented LTCS at [facility] - Desires possible Hx PTD - G1 at 34w - G2 at 36w COVID-19 SCREEN: Lab Results Component Value Date/Time COVID19 Not Detected 09/10/2020 02:30 AM Antepartum course reviewed - early 1 h 124, sero negative, Rnot immune, VZVequiv, A positive/IAT negative, GBS unk, Pap ASCUS 11/27/17 - H/H, plt: 13.9 / 39.3, 180 on 09/09/20 - [facility] Fetus - Presentation on admission: variable - too early to eval placenta - FHT 154 bpm DISPO: Admit for IV antiemetics in the setting of hyperemesis. PO challenge in AM D/w Dr. Mason. Destinee Wiseman MD Associated attestation - Karlie Brown MD - 09/10/2020 10:47 AM CDTI personally examined the patient on 09/10/[address] Wiseman's resident's note as written. I actively participated in the decision-making process. Please see the resident's note for additional details. documented in this encounter ED Notes Penelope Seay PCT - 09/09/2020 9:21 PM CDTPatient to ultrasound Manisha Campbell RN - 09/09/2020 7:36 PM CDTJamijerry Luly Fuentes is a 29 year old female presents to ed via wc with report of abd pain, vomiting and is 9 weeks preg. Patient reports symptoms today, patient reports that has had ultrasound. Patient denies vaginal bleeding. Patient reports chest pains. LC 3. Patient reports has started care. arcelo Carpio MD - 09/09/2020 7:35 PM CDT [facility] Emergency Department Note Patient Name: Suraj Fuentes Date of : 1990 29 year old female Treatment Room: 119/119 Primary Care Physician: Cornelius Fernandez Patient Escorted by: Self [9] Mode of Arrival: Personal means [1] EMS Treatment Prior to ED Arrival: CHIEF TECHNICIAN treatment: IVF;Other (comment) CHIEF TECHNICIAN treatment comments: Per patient she was seen at OSH today for the same CC. They prescribed her fluids and nausea medication. Travel and Exposure Screening: Symptoms Does patient have any of these symptoms?: (not recorded) Exposure Screening Has patient had contact with someone with a communicable disease in the last month?: (not recorded) Diseases exposed to:: (not recorded) Is Patient ?: (not recorded) Exposure Date: (not recorded) Chief Complaint: Chief Complaint Patient presents with Abdominal Pain History of Present Illness: Patient presenting to ED with c/o persistent nausea with vomiting x past 5 days and abd pain that began today. According to patient, pain is sharp/cramping, localized all over the abdomen and radiatingto chest. Patient states pain is 10/10, patient states her pain began today. Patient states she was seen in OSH this morning but symptoms continue. Patient states she has been dealing with nausea with vomiting for a couple of week and had gotten better after discharge from the hospital last week but the nausea began 5 days and have been constant. Patient denies any fever, chills, SOB. Patient also denies any recent illness, sick contacts, recent travel or recent trauma History provided by: Patient news wire photo operator used: No Past Medical History/Immunizations: Past Medical History: Diagnosis Date Abnormal maternal glucose tolerance, antepartum 12/11/2018 Resolved per pt report Anxiety Resolved per pt report Anxiety and depression resolved Mental disorder Ovarian cyst recently found out of dx. Tetanus received in last 5 years: Unknown Childhood immunizations: Up-to-date Allergies: Allergies Allergen Reactions Ibuprofen Hives [place] Hives Sodium Citrate (Bulk) Nausea and/or Vomiting Past Social History: Tobacco Use Never smoked or used smokeless tobacco. Alcohol Use Yes; 0.0 standard drinks of alcohol per week; 0 Standard drinks or equivalent. Comments: socially Drug Use No. Sexual Activity Sexually active; Partners: Male. Comments: last sexual intercourse 10/2018 Past Surgical History: Past Surgical History: Procedure Laterality Date APPENDECTOMY 11/14/2017 Dr. Lomax SECTION N/A 12/18/2018 Surgeon: Manny Gray; Location: Labor and Delivery - [place] Review of Systems: Review of Systems Constitutional: Negative for chills and fever. HENT: Negative for congestion. Eyes: Negative for visual disturbance. Respiratory: Negative for shortness of breath. Cardiovascular: Positive for chest pain. Gastrointestinal: Positive for abdominal pain, diarrhea, nausea and vomiting. Genitourinary: Negative for dysuria. Musculoskeletal: Negative for back pain. Neurological: Negative for weakness. Physical Exam: ED Triage Vitals [09/09/20 1938] Weight 81.2 kg (179 lb 0.2 oz) Actual or estimated Estimated by patient/family report Height BP (!) 124/92 Pulse 101 Resp 20 Temp 37 C (98.6 F) Temp source Oral SpO2 97 % Measured on Room air Physical Exam Vitals signs and nursing note reviewed. Constitutional: General: She is not in acute distress. Appearance: Normal appearance. She is obese. She is not ill-appearing, toxic- appearing or diaphoretic. HENT: Head: Normocephalic and atraumatic. Right Ear: External ear normal. Left Ear: External ear normal. Nose: Nose normal. Eyes: Extraocular Movements: Extraocular movements intact. Conjunctiva/sclera: Conjunctivae normal. Neck: Musculoskeletal: Normal range of motion and neck supple. Cardiovascular: Rate and Rhythm: Regular rhythm. Heart sounds: Normal heart sounds. No murmur. Pulmonary: Effort: Pulmonary effort is normal. No respiratory distress. Breath sounds: Normal breath sounds. No wheezing. Abdominal: General: There is no distension. Palpations: Abdomen is soft. Tenderness: There is abdominal tenderness. There is guarding. Comments: Generalized tenderness with guarding Musculoskeletal: Normal range of motion. Skin: General: Skin is warm. Neurological: General: No focal deficit present. Mental Status: She is alert and oriented to person, place, and time. Mental status is at baseline. Psychiatric: Mood and Affect: Mood normal. Behavior: Behavior normal. Thought Content: Thought content normal. Radiology: Hospital Encounter on 09/09/20 US ABDOMEN LIMITED Narrative EXAM: US ABDOMEN LIMITED HISTORY: 29 years-old Female with pain, nausea with vomiting . TECHNIQUE: Real-time grayscale and Doppler ultrasound of the right upper quadrant. Supervisor Cook Room images were obtained for the record. COMPARISON: CT AP 01/05/2019 FINDINGS: LIVER: Length: 15.2 cm in craniocaudal dimension. Parenchyma: Normal hepatic echogenicity and echotexture. No focal lesion is detected. Portal vein: Hepatopetal flow present in the main portal vein. MPV diameter: 1.2 cm in AP diameter at mauricio hepatis. GALLBLADDER: Gallbladder sludge is noted. Normal gallbladder wall thickness, 3 mm. Morris's sign could not be accurately assessed due to premedication for pain. No pericholecystic free fluid. No abnormal gallbladder distention. BILE DUCTS: No discernible intra- or extrahepatic biliary dilatation.. Common Duct diameter: 3 mm in AP diameter at mauricio hepatis, normal. PANCREAS: The visualized portions of the pancreatic head appear unremarkable. More distal pancreas is obscured by bowel gas. Visual is portions of the right kidney appear unremarkable. Impression Gallbladder sludge versus tiny layering gallstones. No pericholecystic free fluid or inflammatory change. Preliminary Report Dictated by Resident: Huma Novoa I, Bronson Ocampo MD., have reviewed this study and agree with the above report. Lab Results (24h): Recent Results (from the past 24 hour(s)) CBC WITH DIFF Collection Time: 09/09/20 8:03 PM Result Value Ref Range WBC 8.85 4.30 - 11.10 10*3/L RBC 4.48 3.93 - 5.25 10*6/L HGB 13.9 11.6 - 15.0 g/dL HCT 39.3 35.7 - 45.2 % MCV 87.7 80.6 - 95.5 fL MCH 31.0 25.9 - 32.8 pg MCHC 35.4 (H) 31.6 - 35.1 g/dL RDW-SD 37.8 (L) 39.0 - 49.9 fL RDW-CV 11.8 (L) 12.0 - 15.5 % PLT 180 166 - 358 10*3/L MPV 9.9 9.5 - 12.9 fL NRBC/100 WBC 0.0 0.0 - 10.0 /100 WBCs NRBC x10^3 <0.01 10*3/L GRAN MAT (NEUT) % 73.5 % IMM GRAN % 0.60 % LYMPH % 19.7 % MONO % 5.6 % EOS % 0.3 % BASO % 0.3 % GRAN MAT x10^3(ANC) 6.50 1.88 - 7.09 10*3/uL IMM GRAN x10^3 0.05 0.00 - 0.06 10*3/uL LYMPH x10^3 1.74 1.32 - 3.29 10*3/uL MONO x10^3 0.50 0.33 - 0.92 10*3/uL EOS x10^3 0.03 0.03 - 0.39 10*3/uL BASO x10^3 0.03 0.01 - 0.07 10*3/uL BASIC METABOLIC PANEL (NA, K, CL, CO2, GLUCOSE, BUN, CREATININE, CA) Collection Time: 09/09/20 8:03 PM Result Value Ref Range NA 135 135 - 145 mmol/L K 4.2 3.5 - 5.0 mmol/L CL 103 98 - 108 mmol/L CO2 TOTAL 21 (L) 23 - 31 mmol/L AGAP 11 2 - 16 BUN 2 (L) 7 - 23 mg/dL GLUCOSE 90 70 - 110 mg/dL CREATININE 0.41 (L) 0.50 - 1.04 mg/dL CALCIUM 9.1 8.6 - 10.6 mg/dL eGFR Calculation (Non-) 183.4 mL/min/1.73m2 eGFR Calculation () 222.3 mL/min/1.73m2 HEPATIC FUNCTION PANEL (48238) (ALB,T.PRO,BILI T,BU/BC,ALT,AST,ALK PHOS) Collection Time: 09/09/20 8:03 PM Result Value Ref Range TOTAL BILI 0.8 0.1 - 1.1 mg/dL BILI UNCON 0.9 0.1 - 1.1 mg/dL BILI CONJ 0.0 0.0 - 0.3 mg/dL T PROTEIN 6.8 6.3 - 8.2 g/dL ALBUMIN 4.1 3.5 - 5.0 g/dL ALK PHOS 49 34 - 122 U/L ALTv 52 (H) 5 - 35 U/L AST(SGOT) 43 (H) 13 - 40 U/L LIPASE Collection Time: 09/09/20 8:03 PM Result Value Ref Range LIPASE 356 (H) 0 - 220 U/L URINALYSIS Collection Time: 09/09/20 11:55 PM Result Value Ref Range APPEARANCE Clear Clear COLOR Yellow Yellow PH 7.0 4.8 - 8.0 SP GRAVITY 1.015 1.003 - 1.030 GLU U QUAL 50 mg/dL (A) Normal BLOOD Negative Negative KETONES 80 mg/dL (A) Negative PROTEIN Negative Negative UROBILIN Normal Normal BILIRUBIN Negative Negative NITRITE Negative Negative LEUK HO Negative Negative RBC/HPF 1 0 - 3 HPF WBC/HPF 2 0 - 5 HPF BACTERIA Negative Negative MUCOUS Slight (A) Negative LPF SQ EPITH 5 (H) <=2 HPF EKG: normal sinus rhythm Normal axis Rate: 78 EKG unchanged when compared with previous EKG Orders and Treatments: Orders Placed This Encounter Procedures US ABDOMEN LIMITED CBC WITH DIFF BASIC METABOLIC PANEL (NA, K, CL, CO2, GLUCOSE, BUN, CREATININE, CA) HEPATIC FUNCTION PANEL (25315) (ALB,T.PRO,BILI T,BU/BC,ALT,AST,ALK PHOS) LIPASE URINALYSIS CONSULT ELECTROLYTIC ETCHER Orders Placed This Encounter Medications NaCl 0.9% (NS) bolus infusion 1,000 mL proMETHazine (PHENERGAN) 25 mg in NaCl 0.9% (NS) 50 mL piggyback maalox:diphenhydrAMINE:lidocaine 2 % viscous 1:1:1 (FIRST-MOUTHWASH BLM) oral suspension 15 mL morpHINE injection 4 mg NaCl 0.9% (NS) bolus infusion 1,000 mL metoclopramide HCl (REGLAN) injection 10 mg FENTanyl PF (SUBLIMAZE (PF)) injection 100 mcg ED COURSE 29 y/o female with history noted above and surgical history notable for appendicitis, @ about 9 wks 3 days, with known intrauterine , presenting to ED with c/o persistent nausea with vomiting x past 5 days and generalized abd pain radiating to chest that began today. Blood work notable for mildly elevated LFT's and lipase but other purvis unremarkable. UA not concerning for infection as well as no bacteria present. However, ketones present. RUQ US done and notable for sludge but other purvis unremarkable. Patient given IV fluids as well as pain medication and antiemetics with minimal improvement in pain. Miter Cutter consulted. MDM: MDM Reviewed: nursing note and vitals Interpretation: labs and ultrasound Consults: ELECTROLYTIC ETCHER Scoring Tools: No data recorded Diagnosis/Impression: ICD-10-CM ICD-9-CM 1. Nausea and vomiting, intractability of vomiting not specified, unspecified vomiting type R11.2 787.01 2. Generalized abdominal pain R10.84 789.07 Disposition/Condition: ED Disposition None Discharge Medications: Patient's Medications START taking these medications No medications on file CONTINUE taking these medications which have NOT CHANGED DOXYLAMINE-PYRIDOXINE, VIT B6, (DICLEGIS) 10-10 MG PER TABLET Take 2 tablets by mouth at bedtime. VIT 70-HQKV-OFBEA-DHA (SELECT-OB + DHA) 29 MG IRON-1 MG -250 MG COMBO PACK Take 1 Packet by mouth daily. PROCHLORPERAZINE 10 MG TABLET Take 1 tablet by mouth every 6 (six) hours as needed (for nausea and vomiting unresponsive to doxylamine/pyridoxine). PYRIDOXINE, VITAMIN B-6, 25 MG TABLET Take 1 tablet by mouth every 6 (six) hours for 42 days. START taking Modified Medications as Prescribed No medications on file STOP taking these medications No medications on file Follow-up: Electronically signed by: Marcelo Carpio MD 09/09/2020 8:35 PM documented in this encounter Miscellaneous Notes ED Nurse Note - Ada Bush RN - 09/10/2020 4:00 AM CDTPt to [facility] at [facility] via [facility] transport in stretcher. Respirations even and unlabored, AAOx4, NAD noted. D Nurse Note - Merna Ramos RN - 09/10/2020 3:37 AM CDTIce chips provided PO per patient request. D Nurse Note - Ada Bush RN - 09/10/2020 3:20 AM CDTPatient report called to recieving [facility] eJrome on floor [address] Patient updated on plan of care and verbalizes understanding. Patients VSS, RR even and unlabored, and NAD noted. [facility] tele track requested, awaiting transport to [facility]. D Nurse Note - Kristi Francis RN - 09/10/2020 3:17 AM CDTTransport requested D Nurse Note - Ada Bush RN - 09/10/2020 3:13 AM CDTRn returned call and states that patient is going to [facility] D Nurse Note - Ada Bush RN - 09/10/2020 3:09 AM CDTAttempted to call report. Per RN on [facility], they are attempting to get a bed assigned in antepartum. radio host states she is speaking with CN on floor and will call this RN back. RN provided call back number. D Nurse Note - Ada Bush RN - 09/10/2020 2:43 AM CDTPatient laying in bed RR even and unlabored and NAD noted. Pending placement to admission bed. D Nurse Note - Ada Bush RN - 09/10/2020 12:53 AM CDTOB at bedside D Nurse Note - Ada Bush RN - 09/10/2020 12:28 AM CDTPatient pending OB consult. D Nurse Note - Ada Bush RN - 09/09/2020 11:52 PM CDTPatient complaining of pain and nausea, MD notified. D Nurse Note - Ada Bush RN - 09/09/2020 11:47 PM CDTPatient transported via wheel chair to restroom with a steady gait. D Nurse Note - Ada Bush RN - 09/09/2020 10:07 PM CDTPatient laying in bed RR even and unlabored and NAD noted at this time. D Nurse Note - Ada Bush RN - 09/09/2020 9:18 PM CDTPatient informed on needing a urine sample, patient verbalizes that she doesn't have to use the restroom right now but she would let me know when. D Nurse Note - Ada Bush RN - 09/09/2020 9:00 PM CDTPatient laying in bed RR even and unlabored, patient accompanied by 2 visitors. ED Nurse Note - Ada Bush RN - 09/09/2020 8:18 PM CDTPatients medication requested from pharmacy D Nurse Note - Ada Bush RN - 09/09/2020 8:13 PM CDTCharge RN at bedside attempting to obtain IV access. D Nurse Note - Ada Bush RN - 09/09/2020 8:06 PM CDTThis RN attempted to gain IV access 2x. Attempts unsuccessful but blood was collected. Another RN informed will try to obtain access shortly. D Nurse Note - Ada Bush RN - 09/09/2020 7:45 PM CDTJamiee Luly Fuentes is a 29 year old female presents to the ED with a c/o abd pain vomiting and 9 wk preg. Patient reports she was seem at OSH today and was D/Cd. Patient reports that the symptoms started at 5 am today. Patient reports intermittent vomiting all day. Patient G4, P3, L3 and reports receiving care. Patient AAOx4, RR even and unlabored. Patient accompanied by 2 visitors. Patient connected to bedside threat monitoring analyst. D Nurse Note - Ada Bush RN - 09/09/2020 7:44 PM CDTPatient to room from triage documented in this encounter Plan of Treatment Date Type Specialty Care Team Description 10/06/2020 Routine Visit OB Satellites Lauren Fernandez, SHELF FILLER [address] [id number] 15 [phone] Name Type Priority Associated Diagnoses Date/Ti me LAB ONLY COVID LAB Routine Nausea and vomiting, 09/10 2:30 AM INTERPRETATION intractability of CDT vomiting not specified, unspecified vomiting type Name Type Priority Associated Diagnoses Order S chedule LIPASE, SERUM LAB Routine ONCE for 1 Occurrences sta rting 09/10/2020 unti l 09/10/2020 MAGNESIUM, SERUM LAB Routine ONCE for 1 Occurrences sta rting 09/10/2020 unti l 09/10/2020 Type and Screen - The LAB Routine ONCE f or 1 Type and Screen expires Occu rrences starting at midnight on the 09/10 until day after it was drawn. A current Type and Screen is required when RBCs are requested. For all other blood products, a Type and Screen performed during the current hospitalizati... COMP. METABOLIC PANEL LAB Routine ONCE f or 1 (96082) Occurrences sta rting 09/10/2020 unti l 09/10/2020 CBC WITH DIFF LAB Routine ONCE for 1 Occurrences sta rting 09/10/2020 unti l 09/10/2020 LAB ONLY COVID LAB Routine Nausea and vomiting, ONCE for 1 INTERPRETATION intractability of Occurren cynthia starting vomiting not specified, 08/25 until unspecified vomiting type , 1 completed Health Maintenance Due Date Last Done Comments [...] Name Priority Date/Time Associated Diagnosis Comme nts COVID-19 (ID NOW Routine 09/10/2020 2:30 Nausea and vomiting, Results for this RAPID TESTING) AM CDT intractability of procedur e are in vomiting not the results specified, unspecified secti on. vomiting type URINALYSIS STAT 09/09/2020 11:55 Nausea and vomiting, Res ults for this PM CDT intractability of procedure are in vomiting not the results specified, unspecified secti on. vomiting type US ABDOMEN LIMITED STAT 09/09/2020 9:45 Nausea and vomitin g, Results for this PM CDT intractability of procedure are in vomiting not the results specified, unspecified secti on. vomiting type Generalized abdominal pain CBC WITH DIFF STAT 09/09/2020 8:03 Nausea and vomiting, Re sults for this PM CDT intractability of procedure are in vomiting not the results specified, unspecified secti on. vomiting type BASIC METABOLIC STAT 09/09/2020 8:03 Nausea and vomiting, Results for this PANEL (NA, K, CL, PM CDT intractability of proce dure are in CO2, GLUCOSE, BUN, vomiting not the resul ts CREATININE, CA) specified, unspecified se ction. vomiting type HEPATIC FUNCTION STAT 09/09/2020 8:03 Nausea and vomiting, Results for this PANEL (59926) PM CDT intractability of procedure are in (ALB,T.PRO,BILI vomiting not the results T,BU/BC,ALT,AST,ALK specified, unspecifie d section. PHOS) vomiting type LIPASE STAT 09/09/2020 8:03 Nausea and vomiting, Res ults for this PM CDT intractability of procedure are in vomiting not the results specified, unspecified secti on. vomiting type documented in this encounter Results COVID-19 (ID NOW RAPID TESTING) (09/10/2020 2:30 AM CDT) SARS-CoV-2 Rapid ID Not Detected Not Detected [facility] Specimen Swab - NASOPHARYNGEAL SWAB Narrative Performed At ID NOW COVID-19 Assay is an isothermal nucleic acid [facility] amplification test intended for the qualitative detect ion of nucleic acid from SARS-CoV-2 viral RNA in nasopharynge al (FLUE TILE PRESS OPERATOR) specimens. It is used under Emergency Use [...] testing if clinically indicated. Performing Organization Address [facility] Phone Number [facility] CLIA: [id number] [place] [address] [place] [address] URINALYSIS (09/09/2020 11:55 PM CDT) Pathologist Sig nature APPEARANCE Clear Clear [facility] COLOR Yellow Yellow [facility] PH 7.0 4.8 - 8.0 [facility] SP GRAVITY 1.015 1.003 - 1.030 [facility] GLU U QUAL 50 mg/dL (A) Normal [facility] BLOOD Negative Negative [facility] KETONES 80 mg/dL (A) Negative [facility] PROTEIN Negative Negative [facility] UROBILIN Normal Normal [facility] BILIRUBIN Negative Negative [facility] NITRITE Negative Negative [facility] LEUK HO Negative Negative [facility] RBC/HPF 1 0 - 3 HPF [facility] WBC/HPF 2 0 - 5 HPF [facility] BACTERIA Negative Negative [facility] MUCOUS Slight (A) Negative LPF [facility] SQ EPITH 5 (H) <=2 HPF [facility] Specimen Urine - URINE, CLEAN CATCH Performing Organization Address [facility] Phone Number [facility] CLIA: [id number] [place] [address] [place] [address] US ABDOMEN LIMITED (09/09/2020 9:45 PM CDT) Specimen Impressions Performed At PACS/VR/DOSE Gallbladder sludge versus tiny layering gallstones. No pericholecystic free fluid or inflammatory change. Preliminary Report Dictated by Resident: Bronson Jimenez MD., have review ed this study and agree with the above report. Narrative Performed At EXAM: US ABDOMEN LIMITED PACS/VR/DOSE HISTORY: 29 years-old Female with pain, nausea with vomiting . TECHNIQUE: Real-time grayscale and Doppl er ultrasound of the right upper quadrant. Supervisor Cook Room images were obt ained for the record. COMPARISON: CT AP 01/05/2019 FINDINGS: LIVER: Length: 15.2 cm in craniocaudal dimensio n. Parenchyma: Normal hepatic echogenicity and echotextur e. No focal lesion is detected. Portal vein: Hepatopetal flow present in the main portal vein. MPV diameter: 1.2 cm in AP diameter at p mily hepatis. GALLBLADDER: Gallbladder sludge is noted. Normal gallbladder wall thickness, 3 mm. Morris's sign could not be accurately as sessed due to premedication for pain. No pericholecystic free fluid. No abnorm al gallbladder distention. BILE DUCTS: No discernible intra- or extrahepatic bi liary dilatation.. Common Duct diameter: 3 mm in AP diamete r at mauricio hepatis, normal. PANCREAS: The visualized portions of the pancreatic head appear unremarkable. More distal pancreas is ob scured by bowel gas. Visual is portions of the right kidney a ppear unremarkable. Procedure Note [facility], Radiant Results Inft User - 2019 10:10 PM CDT EXAM: US ABDOMEN LIMITED HISTORY: 29 years-old Female with pain, nausea with vomiting . TECHNIQUE: Real-time grayscale and Doppl er ultrasound of the right upper quadrant. Supervisor Cook Room images were obt ained for the record. COMPARISON: CT AP 01/05/2019 FINDINGS: LIVER: Length: 15.2 cm in craniocaudal dimensio n. Parenchyma: Normal hepatic echogenicity and echotexture. No focal lesion is detected. Portal vein: Hepatopetal flow present in the main portal vein. MPV diameter: 1.2 cm in AP diameter at p mily hepatis. GALLBLADDER: Gallbladder sludge is noted. Normal gallbladder wall thickness, 3 mm. Morris's sign could not be accurately as sessed due to premedication for pain. No pericholecystic free fluid. No abnorm al gallbladder distention. BILE DUCTS: No discernible intra- or extrahepatic bi liary dilatation.. Common Duct diameter: 3 mm in AP diamete r at mauricio hepatis, normal. PANCREAS: The visualized portions of the pancreatic head appear unremarkable. More distal pancreas is ob scured by bowel gas. Visual is portions of the right kidney a ppear unremarkable. IMPRESSION Gallbladder sludge versus tiny layering gallstones. No pericholecystic free fluid or inflammatory change. Preliminary Report Dictated by Resident: Huma Novoa I, Bronson Ocampo MD., have reviewe d this study and agree with the above report. Performing Organization Address City/State/Zipcode Phone Number PACS/VR/DOSE LIPASE (09/09/2020 8:03 PM CDT) Pathologist Sig nature LIPASE 356 (H) 0 - 220 U/L [facility] Specimen Blood - VENOUS Performing Organization Address [facility]/Zipcode Phone Number [facility] CLIA: [id number] [place], [place] [id number] [address] [place] [address] HEPATIC FUNCTION PANEL (39377) (ALB,T.PRO,BILI T,BU/BC,ALT,AST,ALK PHOS) (09/09/2020 8:03 PM CDT) Pathologist Sig nature TOTAL BILI 0.8 0.1 - 1.1 mg/dL [facility] BILI UNCON 0.9 0.1 - 1.1 mg/dL [facility] BILI CONJ 0.0 0.0 - 0.3 mg/dL [facility] T PROTEIN 6.8 6.3 - 8.2 g/dL [facility] ALBUMIN 4.1 3.5 - 5.0 g/dL [facility] ALK PHOS 49 34 - 122 U/L [facility] ALTv 52 (H) 5 - 35 U/L [facility] AST(SGOT) 43 (H) 13 - 40 U/L [facility] Specimen Blood - VENOUS Performing Organization Address [facility]/Zipcode Phone Number [facility] CLIA: [id number] [place], [place] [id number] [address] [place] [address] BASIC METABOLIC PANEL (NA, K, CL, CO2, GLUCOSE, BUN, CREATININE, CA) (09/09/2020 8:03 PM CDT) NA 135 135 - 145 [facility] mmol/L SERVICES K 4.2Comment: 3.5 - 5.0 [facility] Slight hemolysis mmol/L SERVICES CL 103 98 - 108 [facility] mmol/L SERVICES CO2 TOTAL 21 (L) 23 - 31 [facility] mmol/L SERVICES AGAP 11 2 - 16 [facility] BUN 2 (L)Comment: 7 - 23 mg/dL [facility] Slight hemolysis SERVICES GLUCOSE 90 70 - 110 [facility] mg/dL SERVICES CREATININE 0.41 (L) 0.50 - 1.04 [facility] mg/dL SERVICES CALCIUM 9.1 8.6 - 10.6 [facility] mg/dL SERVICES eGFR Calculation 183.4 mL/min/1.73m2 [facility] (Non- SERVICES Nauruan) eGFR Calculation 222.3 mL/min/1.73m2 [facility] () SERVICES Specimen Blood - VENOUS Narrative Performed At Association of Glomerular Filtration Rate (GFR) and St aging [facility] of Kidney Disease* + + +------- ------ + | GFR (mL/min/1.73 m2) | With Kidney Damage | [facility] Kidney Damage + + +------- ------ + [...] . Performing Organization Address City/State/Zipcode Phone Number [facility] CLIA: [id number] [place] [address] [place] [address] CBC WITH DIFF (09/09/2020 8:03 PM CDT) Pathologist Sig nature WBC 8.85 4.30 - 11.10 [facility] 10*3/L SERVICES RBC 4.48 3.93 - 5.25 [facility] 10*6/L SERVICES HGB 13.9 11.6 - 15.0 [facility] g/dL SERVICES HCT 39.3 35.7 - 45.2 % [facility] MCV 87.7 80.6 - 95.5 fL [facility] MCH 31.0 25.9 - 32.8 pg [facility] MCHC 35.4 (H) 31.6 - 35.1 [facility] g/dL SERVICES RDW-SD 37.8 (L) 39.0 - 49.9 fL [facility] RDW-CV 11.8 (L) 12.0 - 15.5 % [facility] PLT 180 166 - 358 [facility] 10*3/L SERVICES MPV 9.9 9.5 - 12.9 fL [facility] NRBC/100 WBC 0.0 0.0 - 10.0 /100 [facility] WBCs SERVICES NRBC x10^3 <0.01 10*3/L [facility] GRAN MAT (NEUT) % 73.5 % [facility] IMM GRAN % 0.60 % [facility] LYMPH % 19.7 % [facility] MONO % 5.6 % [facility] EOS % 0.3 % [facility] BASO % 0.3 % [facility] GRAN MAT x10^3(ANC) 6.50 1.88 - 7.09 [facility] 10*3/uL SERVICES IMM GRAN x10^3 0.05 0.00 - 0.06 [facility] 10*3/uL SERVICES LYMPH x10^3 1.74 1.32 - 3.29 [facility] 10*3/uL SERVICES MONO x10^3 0.50 0.33 - 0.92 [facility] 10*3/uL SERVICES EOS x10^3 0.03 0.03 - 0.39 [facility] 10*3/uL SERVICES BASO x10^3 0.03 0.01 - 0.07 [facility] 10*3/uL SERVICES Specimen Blood - VENOUS Performing Organization Address City/State/Zipcode Phone Number [facility] CLIA: [id number] [place] [address] [place] [address] documented in this encounter Visit Diagnoses Diagnosis Nausea and vomiting, intractability of v omiting not specified, unspecified vomiting type - Primary Generalized abdominal pain Abdominal pain, generalized Hyperemesis gravidarum Mild hyperemesis gravidarum, unspecified as to episode of care 9 weeks gestation of state, incidental documented in this encounter Administered Medications Medication Order MAR Action Action Date Dose Rate Site acetaminophen (TYLENOL) tablet 650 mg 650 mg, Oral, Q6HPRN, Starting Sat 09/10 at 0440, Until Discontinued, Routine, Pain (scale 4-6) alum-mag hydroxide-simeth (MAALOX PLUS / MAG-AL PLUS) 200-200-20 mg/5 mL suspension 30 mL 30 mL, Oral, Q6HPRN, Starting Sat at 0441, Until Discontinued, Routine, Indigestion docusate calcium (SURFAK) capsule 240 mg 240 mg, Oral, QHSPRN, Starting Sat 09/10 at 0441, Until Discontinued, Routine, Constipation magnesium hydroxide (MILK OF MAGNESIA) 4 00 mg/5 mL suspension 30 mL 30 mL, Oral, QDAILYPRN, Starting Sat at 0441, Until Discontinued, Routine, Constipation vitamin w/FA (PRENATABS RX) tab let 1 tablet 1 tablet, Oral, DAILY, First dose on 09/10/20 at 0 900, Until Discontinued, Routine proCHLORperazine (COMPAZINE) 10 mg in NaCl Given 09/10/2020 9:5 1 AM CDT 10 mg 0.9% (NS) piggyback 10 mg, IV Piggyback, Q8H, First dose on 09/10/20 at 1000, Until Discontinued, 50 mL proMETHazine (PHENERGAN) 25 mg in NaCl 0.9% Given 09/10/2020 2:00 PM CDT 25 mg (NS) 50 mL IV piggyback 25 mg, IV Piggyback, Q8H, First dose on 09/10/20 at 0600, Until Discontinued, Routine Given 09/10/2020 6:32 AM CDT 25 mg Medication Order MAR Action Action Date Dose Rate Site FENTanyl PF (SUBLIMAZE (PF)) Given 09/09/2020 11:57 PM CDT 100 m cg injection 100 mcg 100 mcg, Slow IV Push, ONCE, 1 dose, 09/10/20 at 0100, Routine maalox:diphenhydrAMINE:lidocaine 2 % viscous Given 8:13 PM CDT 15 mL 1:1:1 (FIRST-MOUTHWASH BLM) oral suspension 15 mL 15 mL, Oral, ONCE, 1 dose, 09/09/20 at 2100, Routine metoclopramide HCl (REGLAN) injection 10 mg Given 09/09/2020 11:58 PM CDT 10 mg 10 mg, Slow IV Push, ONCE, 1 dose, 09/10/20 at 0100, NICK morpHINE injection 4 mg Given 09/09/2020 9:15 PM CDT 4 mg 4 mg, Slow IV Push, ONCE, 1 dose, Sat09/09/20 at 2200, STAT NaCl 0.9% (NS) bolus infusion New Bag 09/09/2020 8:32 PM CDT 1,000 mL 999 mL/hr 1,000 mL at 999 mL/hr, 1,000 mL, IV Infusion, ONCE, 1 dose, Sat09/09/20 at 2100, STAT proMETHazine (PHENERGAN) 25 mg in NaCl 0.9% Given 09/09/2020 8:32 PM CDT 25 mg (NS) 50 mL piggyback 25 mg, IV Piggyback, ONCE, 1 dose, Sat09/09/20 at 2100, 50 mL documented in this encounter Additional Health Concerns Infection Onset Date Last Indicated Resolved Time COVID-19 Rule Out 09/10/2020 09/10/2020 09/10/2020 4: 55 AM CDT documented as of this encounter Insurance Payer Benefit Plan / Subscriber ID Effective Phone Address T e Group Dates ASIA BETANCOURT [id number] 2018-Anupama [place] [id number] MANAGED MEDICAID [place], [place] documented as of this encounter Advance Directives Type Date Recorded Patient Supervisor Cook Room Explanati on Advance Directives and Living Will Power of Evaluation Engineer Name Relationship Healthcare Agent Relationship Co mmunication Floyd Holloway Health Care Agent (Work) Preet Coffey Other Health Care Agent (Work) [place] Nicolegamal Spouse First [facility] Agent (Mobile) "
[2020-09-12] MEDS ORDERED: NA CHLORIDE 0.9% 1,000 ML ONE ×2 (12:50→15:03)
[2020-09-12] MEDS ORDERED: ONDANSETRON 4 MG/2 ML VIAL ONE (12:50)
[2020-09-12] MEDS ORDERED: MORPHINE 4 MG/ML SYR ONE (12:50)
[2020-09-12 13:05] LABS: Absolute Lymphocytes (CBC) 1.5 K/uL (0.7-4.9); Basophils % 0.4 % (0-1.3); Hematocrit 39.4 % (36.0-45.0); MPV 8.1 fL (7.6-11.3); RBC Red Blood Cell Count 4.49 M/uL (3.86-4.86)
[2020-09-12 13:20] LABS: BUN Blood Urea Nitrogen 4 mg/dL (7-18); Bicarbonate 24 mmol/L (21-32); Glucose Level 102 mg/dL (74-106); Potassium 3.6 mmol/L (3.5-5.1); Sodium Level 139 mmol/L (136-145)
[2020-09-12] MEDS ORDERED: PROMETHAZINE INJ 25 MG/ML AMP ONE ×2 (15:03→17:31)
[2020-09-12] MEDS ORDERED: DICYCLOMINE HCL 20 MG/2 ML AMP IM ONE (15:03)
[2020-09-12 15:10] LABS: Urine Blood NEGATIVE (NEG); Urine Glucose NEGATIVE (NEG); Urine Protein NEGATIVE (NEG); Urine Specific Gravity 1.025 (1.005-1.030); Urine pH 8.5 (5.0-7.0)
[2020-09-12] MEDS ORDERED: CEFTRIAXONE/SWI 1gm 1 GM/10 ML SYR ONE (15:18)
[2020-09-12 15:33] LABS: Urine Amorphous Sediment 3+ /HPF (NONE SEEN); Urine Bacteria <20 /HPF (<20); Urine Culture Reflex Order NOT NEEDED; Urine Mucus 2+ /HPF (NONE SEEN); Urine RBC NONE SEEN /HPF (NONE SEEN)
--- NOTE | 2020-09-12 16:59 | EDPHYS ---
Physician Documentation [facility] Name: Suraj Fuentes Age: 29 yrs Sex: Female : 1990 Arrival Date: 09/12/2020 Time: 11:28 Bed 23 Private MD: ED Physician Sharath Rod HPI: 09/12 12:36 This 29 yrs old Female presents to ER via Wheelchair with complaints of pm1 Nausea/Vomiting, Abdominal Pain. 12:36 The patient presents to the emergency department with nausea, vomiting, abdominal pain, pm1 of the suprapubic area. 12:36 Onset: The symptoms/episode began/occurred today. Possible causes: . The pm1 symptoms are aggravated by nothing. The symptoms are alleviated by nothing. Associated signs and symptoms: Pertinent positives: abdominal pain, nausea, vomiting, Pertinent negatives: dysuria, fever. Severity of symptoms: in the emergency department the symptoms are worse. The patient has experienced similar episodes in the past, multiple times. The patient has been recently seen by a physician: with similar presenting complaints, at [facility]. Historical: - Allergies: 11:43 Ibuprofen; sv 11:43 ORANGES; sv - PMHx: 11:43 hyperemesis gravidum; sv 11:50 Pancreatitis; sv - PSHx: 11:43 Appendectomy; ; sv - Immunization history:: Adult Immunizations. - Social history:: Smoking status: . ROS: 12:36 Constitutional: Negative for fever, chills, and weight loss, Cardiovascular: Negative pm1 for chest pain, palpitations, and edema, Respiratory: Negative for shortness of breath, cough, wheezing, and pleuritic chest pain. 12:36 Back: Negative for injury and pain, : Negative for injury, bleeding, discharge, and swelling, MS/Extremity: Negative for injury and deformity, Skin: Negative for injury, rash, and discoloration, Neuro: Negative for headache, weakness, numbness, tingling, and seizure. 12:36 Abdomen/GI: Positive for abdominal pain, nausea and vomiting, of the suprapubic area, Negative for diarrhea, constipation. Exam: 12:36 Constitutional: This is a well developed, well nourished patient who is awake, alert, pm1 and in no acute distress. Head/Face: Normocephalic, atraumatic. 12:36 Back: No spinal tenderness. No costovertebral tenderness. Full range of motion. Skin: Warm, dry with normal turgor. Normal color with no rashes, no lesions, and no evidence of cellulitis. MS/ Extremity: Pulses equal, no cyanosis. Neurovascular intact. Full, normal range of motion. 12:36 Cardiovascular: Exam negative for acute changes, Rate: normal, Rhythm: regular, Pulses: no pulse deficits are appreciated. 12:36 Respiratory: Exam negative for acute changes, respiratory distress, shortness of breath. 12:36 Abdomen/GI: Inspection: abdomen appears normal, Palpation: soft, in all quadrants, mild abdominal tenderness, in the suprapubic area. 12:36 Neuro: Exam negative for acute changes, Orientation: is normal, Mentation: is normal, Motor: is normal, moves all fours, Sensation: is normal, no obvious gross deficits. Vital Signs: 11:43 BP 144 / 94; Pulse 105; Resp 28; Temp 98.1; Pulse Ox 100% ; sv 13:30 BP 138 / 88; Pulse 89; Resp 16; Pulse Ox 99% on R/A; hb 15:30 BP 132 / 86; Pulse 81; Resp 15; Pulse Ox 99% on R/A; hb 17:00 BP 124 / 80; Pulse 80; Resp 15; Pulse Ox 99% on R/A; hb MDM: 12:25 Patient medically screened. pm1 14:36 Data reviewed: radiologic studies, ultrasound, 08/25/2020 Ultrasound reviewed. IUP pm1 present. 16:16 Data reviewed: vital signs. Data interpreted: Pulse oximetry: on room air is 99 %. pm1 Interpretation: normal. 16:57 Counseling: I had a detailed discussion with the patient and/or guardian regarding: the pm1 historical points, exam findings, and any diagnostic results supporting the discharge/admit diagnosis, lab results, the need for outpatient follow up, to return to the emergency department if symptoms worsen or persist or if there are any questions or concerns that arise at home. 09/12 12:31 Order name: Basic Metabolic Panel pm1 09/12 12:31 Order name: CBC with Diff pm1 09/12 12:31 Order name: Urine Microscopic Only pm1 09/12 13:09 Order name: CBC with Automated Diff; Complete Time: 14:12 EDMS 09/12 13:20 Order name: Basic Metabolic Panel; Complete Time: 14:12 EDMS 09/12 15:04 Order name: Urine Dipstick--Ancillary (enter results) bd 09/12 15:11 Order name: Urine Dipstick-Ancillary; Complete Time: 15:20 EDMS 09/12 15:33 Order name: Urine Microscopic Only; Complete Time: 16:15 EDMS 09/12 12:31 Order name: IV Saline Lock; Complete Time: 13:03 pm1 09/12 12:31 Order name: Labs collected and sent; Complete Time: 13:03 pm1 09/12 12:31 Order name: NPO; Complete Time: 13:03 pm1 09/12 12:31 Order name: Urine Dipstick-Ancillary (obtain specimen); Complete Time: 16:01 pm1 Administered Medications: 13:00 Drug: morphine 4 mg Route: IVP; Site: left forearm; hb 13:41 Follow up: Response: No adverse reaction hb 13:00 Drug: Zofran (Ondansetron) 4 mg Route: IVP; Site: left forearm; hb 13:41 Follow up: Response: No adverse reaction hb 13:00 Drug: NS 0.9% 1000 ml Route: IV; Rate: 1000 ml; Site: left forearm; hb 14:00 Follow up: Response: No adverse reaction; IV Status: Completed infusion; IV Intake: hb 1000ml 14:55 Drug: NS 0.9% 1000 ml Route: IV; Rate: 1000 ml; Site: left forearm; hb 15:55 Follow up: Response: No adverse reaction; IV Status: Completed infusion; IV Intake: hb 1000ml 14:55 Drug: Phenergan 12.5 mg Route: IVP; Site: left forearm; hb 15:30 Follow up: Response: No adverse reaction hb 14:55 Drug: Bentyl 20 mg Route: IM; Site: right ventrogluteal; hb 15:30 Follow up: Response: No adverse reaction hb 15:20 Drug: Rocephin 1 grams Route: IV; Rate: calculated rate; Site: left forearm; hb 15:22 Follow up: Response: No adverse reaction; IV Status: Completed infusion; IV Intake: 10mlhb Disposition: 09/13 11:09 Co-signature as Attending Physician, Sharath Rod MD I agree with the assessment and kdr plan of care. Disposition: 09/12/20 16:58 Discharged to Home. Impression: Vomiting of , unspecified. - Condition is Stable. - Discharge Instructions: Morning Sickness, [id number], Nausea and Vomiting, Adult. - Prescriptions for Phenergan 25 mg Rectal Suppository - insert 1 suppository by RECTAL route every 6 hours As needed; 12 suppository. promethazine 25 mg Oral Tablet - take 1 tablet by ORAL route every 6 hours As needed; 20 tablet. - Medication Reconciliation Form, Thank You Letter, Antibiotic Education, Prescription Opioid Use form. - Follow up: Emergency Department; When: As needed; Reason: Worsening of condition. Follow up: Private Physician; When: 2 - 3 days; Reason: Recheck today's complaints, Continuance of care, Re-evaluation by your physician. - Problem is new. - Symptoms have improved. Signatures: Dispatcher [employer] EDBrittney Marcial RN RN Sharath Rod MD MD kdr Marinas, Patrick, NP BLOCK SAWYER pm1 Kimberly Landeros RN RN hb Corrections: (The following items were deleted from the chart) 09/12 17:26 16:58 09/12/2020 16:58 Discharged to Home. Impression: Vomiting of , hb unspecified. Condition is Stable. Forms are Medication Reconciliation Form, Thank You Letter, Antibiotic Education, Prescription Opioid Use. Follow up: Emergency Department; When: As needed; Reason: Worsening of condition. Follow up: Private Physician; When: 2 - 3 days; Reason: Recheck today's complaints, Continuance of care, Re-evaluation by your physician. Problem is new. Symptoms have improved. pm1
--- NOTE | 2020-09-12 16:59 | ER ---
Nurse's Notes [facility] Name: Suraj Fuentes Age: 29 yrs Sex: Female : 1990 Arrival Date: 09/12/2020 Time: 11:28 Bed 23 Private MD: Diagnosis: Vomiting of , unspecified Presentation: 09/12 11:42 Chief complaint: Patient states: suprapubic pain that radiates to the lower back, n/v sv started today. Pt is about 10 weeks . Pt reports being at [facility] today and dx with pancreatitis. Coronavirus screen: Client denies travel out of the [place] in the last 14 days. At this time, the client does not indicate any symptoms associated with coronavirus-19. Ebola Screen: No symptoms or risks identified at this time. Risk Assessment: Do you want to hurt yourself or someone else? Patient reports no desire to harm self or others. Onset of symptoms was September 12, 2020. 11:42 Method Of Arrival: Wheelchair sv 11:42 Acuity: SHAW 2 sv 11:43 Initial Sepsis Screen: Does the patient meet any 2 criteria? HR > 90 bpm. No. Patient's sv initial sepsis screen is negative. Does the patient have a suspected source of infection? No. Patient's initial sepsis screen is negative. Triage Assessment: 11:42 General: Appears in no apparent distress. uncomfortable, Behavior is cooperative, sv fussy, restless. Pain: Complains of pain in abdomen. Neuro: Level of Consciousness is awake, alert, obeys commands, Oriented to person, place, time, situation. Respiratory: Respiratory effort is even, Respiratory pattern is tachypnea. GI: Reports lower abdominal pain, upper abdominal pain, nausea, vomiting. Historical: - Allergies: 11:43 Ibuprofen; sv 11:43 ORANGES; sv - PMHx: 11:43 hyperemesis gravidum; sv 11:50 Pancreatitis; sv - PSHx: 11:43 Appendectomy; ; sv - Immunization history:: Adult Immunizations. - Social history:: Smoking status: . Screenin:57 Abuse screen: Denies threats or abuse. Denies injuries from another. Nutritional hb screening: No deficits noted. Tuberculosis screening: No symptoms or risk factors identified. Fall Risk None identified. Assessment: 13:00 General: Appears in no apparent distress. uncomfortable, Behavior is cooperative, hb crying, restless. Pain: Pain currently is 9 out of 10 on a pain scale. 13:00 Neuro: Level of Consciousness is awake, alert, obeys commands, Oriented to person, hb place, time, situation. Cardiovascular: Capillary refill < 3 seconds Patient's skin is warm and dry. Respiratory: Airway is patent Respiratory effort is even, unlabored, Respiratory pattern is regular, symmetrical. GI: Reports lower abdominal pain, nausea. : No signs and/or symptoms were reported regarding the genitourinary system. EENT: No signs and/or symptoms were reported regarding the EENT system. Derm: Skin is pink, warm \T\ dry. Musculoskeletal: No signs and/or symptoms reported regarding the musculoskeletal system. 13:49 Reassessment: Patient appears in no apparent distress at this time. Patient and/or hb family updated on plan of care and expected duration. Pain level reassessed. Patient is alert, oriented x 3, equal unlabored respirations, skin warm/dry/pink. 14:28 Reassessment: Patient appears in no apparent distress at this time. Patient and/or hb family updated on plan of care and expected duration. Pain level reassessed. Patient is alert, oriented x 3, equal unlabored respirations, skin warm/dry/pink. 15:01 Reassessment: Pt dry heaving, moaning loudly, c/o pain 8/10. ROUTER OPERATOR Christian notified, hb medicated as ordered. Family remain at bedside. 15:51 Reassessment: Pt resting with eyes closed, NAD, VSS. Family remains at bedside. hb 16:45 Reassessment: Patient appears in no apparent distress at this time. Patient and/or hb family updated on plan of care and expected duration. Pain level reassessed. Patient is alert, oriented x 3, equal unlabored respirations, skin warm/dry/pink. Vital Signs: 11:43 BP 144 / 94; Pulse 105; Resp 28; Temp 98.1; Pulse Ox 100% ; sv 13:30 BP 138 / 88; Pulse 89; Resp 16; Pulse Ox 99% on R/A; hb 15:30 BP 132 / 86; Pulse 81; Resp 15; Pulse Ox 99% on R/A; hb 17:00 BP 124 / 80; Pulse 80; Resp 15; Pulse Ox 99% on R/A; hb ED Course: 11:28 Patient arrived in ED. ds1 11:43 Triage completed. sv 11:43 Arm band placed on. sv 11:56 Kimberly Landeros, ALFONZO is Primary Nurse. hb 11:57 Patient has correct armband on for positive identification. Bed in low position. Call hb light in reach. Side rails up X 1. 12:08 Christian Avendaño NP is PHCP. pm1 12:08 Sharath Rod MD is Attending Physician. pm1 12:50 Missed attempt(s): 22 gauge in right forearm. Bleeding controlled, band aid applied, hb catheter tip intact. 12:55 Missed attempt(s): 22 gauge in right hand. hb 13:00 Inserted saline lock: 22 gauge in left forearm, using aseptic technique. hb 14:52 Basic Metabolic Panel Sent. ss 14:52 CBC with Diff Sent. ss 16:01 Urine Dipstick--Ancillary (enter results) Sent. sv 16:01 Urine Microscopic Only Sent. sv 17:25 No provider procedures requiring assistance completed. IV discontinued, intact, hb bleeding controlled, No redness/swelling at site. Administered Medications: 13:00 Drug: morphine 4 mg Route: IVP; Site: left forearm; hb 13:41 Follow up: Response: No adverse reaction hb 13:00 Drug: Zofran (Ondansetron) 4 mg Route: IVP; Site: left forearm; hb 13:41 Follow up: Response: No adverse reaction hb 13:00 Drug: NS 0.9% 1000 ml Route: IV; Rate: 1000 ml; Site: left forearm; hb 14:00 Follow up: Response: No adverse reaction; IV Status: Completed infusion; IV Intake: hb 1000ml 14:55 Drug: NS 0.9% 1000 ml Route: IV; Rate: 1000 ml; Site: left forearm; hb 15:55 Follow up: Response: No adverse reaction; IV Status: Completed infusion; IV Intake: hb 1000ml 14:55 Drug: Phenergan 12.5 mg Route: IVP; Site: left forearm; hb 15:30 Follow up: Response: No adverse reaction hb 14:55 Drug: Bentyl 20 mg Route: IM; Site: right ventrogluteal; hb 15:30 Follow up: Response: No adverse reaction hb 15:20 Drug: Rocephin 1 grams Route: IV; Rate: calculated rate; Site: left forearm; hb 15:22 Follow up: Response: No adverse reaction; IV Status: Completed infusion; IV Intake: 10mlhb Intake: 14:00 IV: 1000ml; Total: 1000ml. hb 15:22 IV: 10ml; Total: 1010ml. hb 15:55 IV: 1000ml; Total: 2010ml. hb Outcome: 16:58 Discharge ordered by MD. pm1 17:25 Discharged to home ambulatory. hb 17:25 Condition: stable 17:25 Discharge instructions given to patient, Instructed on discharge instructions, follow up and referral plans. medication usage, Demonstrated understanding of instructions, follow-up care, medications. 17:26 Patient left the ED. hb Signatures: Brittney Andino RN RN Natalia Lizarraga ds1 Rita Meza RN RN ss Christian Avendaño, ROUTER OPERATOR ROUTER OPERATOR pm1 Kimberly Landeros RN RN hb Corrections: (The following items were deleted from the chart) 11:46 11:42 Chief complaint: Patient states: suprapubic pain that radiates to the lower back, sv n/v started today. sv 11:46 11:42 Acuity: SHAW 3 sv sv 11:46 11:43 Pulse 105bpm; Resp 28bpm; Pulse Ox 100%; Temp 98.1F; sv sv 11:50 11:42 Chief complaint: Patient states: suprapubic pain that radiates to the lower back, sv n/v started today. Pt is about 10 weeks . sv
[2020-09-12 19:45] VITALS: TEMP 98.1
[2020-09-12 19:47] VITALS: O2SAT 99
[2020-09-12 19:50] VITALS: BP 124/80
== END 2020-09-12 17:26 | disposition home or self-care (01) ==
LOC: ER 11:26
DX: O26.891 Other specified pregnancy related conditions, first trimester (principal); Z91.018 Allergy to other foods
CPT/HCPCS: 96361; 85025; 80048; 36415; 96375; 96372; 96374; 99284; J2550 ×2; J0500; J0696; J7030 ×2; J2405; 81003; 81015

== ENCOUNTER 2020-09-13 11:46 | Emergency (ER) | payer MEDICAID ==
--- OUTSIDE RECORDS SUMMARY | 2020-09-13 12:13 | XMS REPORT | Continuity of Care Document ---
:1990 Author Organization [facility] t Address [address] [place] [address] Care Team Providers Name Role Phone Shirin [...] Type Clinicians Facility Department ID 2020-09-09 2020-09-10 [facility] Marcelo Carpio [id number] 19:39:00 16:45:00 Encounter Karlie Brown [id number] [facility] [id number] 2020-09-09 2020-09-09 Telephone AMBAR Burks [id number] 00:00:00 00:00:00 Graciela C SPUD SORTER [id number] REGIONAL [id number] MATERNAL [id number] & CHILD 107 [facility] 2020-09-09 2020-09-09 [place] Jim [facility] [id number] 00:00:00 00:00:00 Roshunda R SPUD SORTER [id number] REGIONAL [id number] MATERNAL [id number] & CHILD 107 [facility] 2020-09-08 2020-09-08 [facility] [id number] 10:23:36 11:14:26 Roshunda R SPUD SORTER [id number] Visit REGIONAL [id number] MATERNAL [id number] & CHILD 107 [facility] 2020-09-08 2020-09-08 [place] [facility] [id number] 00:00:00 00:00:00 Roshunda R SPUD SORTER [id number] REGIONAL [id number] MATERNAL [id number] & CHILD 107 [facility] 2020-09-07 2020-09-07 [place] [facility] [id number] 00:00:00 00:00:00 Roshunda R SPUD SORTER [id number] REGIONAL [id number] MATERNAL [id number] & CHILD 107 [facility] Results This patient has no known results.
--- OUTSIDE RECORDS SUMMARY | 2020-09-13 12:17 | XMS REPORT | Summary of Care ---
:1990 Author Organization [facility] - Health Address [address] [place] [id number] Care Team Providers Name Role Phone Gamal Saravia Insurance Hmo Lauren Fernandez Primary Care Provider Reason for Referral (Routine) Status Reason Specialty Diagnoses / Referred By Referred To Procedures Contact Contact New Request OG-OBSTETRICS & Diagnoses Nausea and vomiting during Aufderheide, Leann GYNECOLOGY Procedures Discharge Follow-Up: Specialty Service OG-OBSTETRICS & GYNECOLOGY; 3-5 Days MD Merna [address] [place] [address]. [place] [address] Reason for Visit Reason Comments Abdominal Pain Vomiting Auth/Cert Status Reason Specialty Diagnoses / Referred By Referred To Procedures Contact Contact Emergency Medicine Ed-Raquel rgency Dept [address] [place] [phone] Fax: Encounter Details Date Type Department Care Team Description 08/28/2020 - Emergency [facility] Monika Allen MD [address] [place] [phone] Abdominal pain during in first trimester (Primary Dx); 08/29/2020 Department Anthonyerjessi, Leann Bauman MD [address] [place] [phone] Nausea and vomiting during [address] [place] [phone] Allergies Active Allergy Reactions Severity Noted Date Comments Ibuprofen Hives 04/15/2014 [place] Hives 04/15/2014 Sodium Citrate (Bulk) Nausea and/or Vomiting 9 documented as of this encounter (statuses as of 08/29/2020) Medications Medication Sig Dispensed Refills Start Date End Date Status ondansetron HCl Take by mouth. 0 Active (ZOFRAN ORAL) vit Take 1 Packet by 30 Each 6 08/03/2020 Active 73-tuwb-kmkhs-dha mouth daily. 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 SCHEDULE AN APPOINTMENT ONLINE AT [email or web address] 2. OR CALL THE [facility] ACCESS CENTER AT OR 3. OR CALL YOUR [facility] PHYSICIAN'S OFFICE DIRECTLY IF YOU ARE ALREADY AN ESTABLISHED [facility] PATIENT. RETURN TO ER FOR WORSENING OF SYMPTOMS. AttachmentsThe following attachments cannot be sent through Care Everywhere. : Your First Trimester Changes (Ukrainian)Severe Morning Sickness (Hyperemesis Gravidarum) (Ukrainian)documented in this encounter ED Notes Arsalan Salazar [...] site, catheter intact. [facility] accompanied by visitors x2, in possession of [...] - 08/28/2020 11:47 PM CDT[facility] D Nurse Note - Ada Bush RN [...] and dry. D Nurse Note - Luly Tyelr, RN - 08/28/2020 9:04 PM ALMATJaally Mauricio Clotilde Fuentes is a 29 year old female reports to the ED c/o abdominal pain "all over" and vomiting x 2 days. Patient states she is "7 weeks and some odd days" . Pt states "my bodies rejecting it." patient denies vaginal bleeding, fever, cough, SOB. . Patient was seen in [place] for same complaint, patient's s/o states "they [...] 08/31/2020 Routine Visit OB Satellites Lauren Fernandez, CELL CHANGER [address] [address] 15 [phone] Health Maintenance Due Date Last Done Comments [...] Abdominal pain Re sults for this PANEL (19426) CD[facility] (ALB,T.PRO,BILI first trimester the resul ts T,BU/BC,ALT,AST,ALK section. PHOS) documented in this encounter Results Urinalysis (08/29/2020 12:26 AM CDT) Pathologist Sig nature APPEARANCE Clear Clear [facility] COLOR Trudi (A) Yellow [facility] PH 7.0 4.8 - 8.0 [facility] SP GRAVITY 1.030 1.003 - 1.030 [facility] GLU U QUAL Normal Normal [facility] BLOOD Negative Negative [facility] KETONES 80 mg/dL (A) Negative [facility] PROTEIN 30 mg/dL (A) Negative [facility] UROBILIN 2.0 mg/dL (A) Normal [facility] BILIRUBIN Negative Negative [facility] NITRITE Negative Negative [facility] LEUK HO Negative Negative [facility] RBC/HPF 3 0 - 3 HPF [facility] WBC/HPF 3 0 - 5 HPF [facility] BACTERIA Negative Negative [facility] MUCOUS Marked (A) Negative LPF [facility] SQ EPITH 4 (H) <=2 HPF [facility] Specimen Urine - URINE, CLEAN CATCH Performing Organization Address City/State/Zipcode Phone Number [facility] CLIA: [id number] [place], [place] [address] [address] [place], [place] [address]vd TOTAL BHCG (QUANTITATIVE) (08/28/2020 10:08 PM CDT) Pathologist Sig nature BETA HCG 140,720.00 Non- female [facility] and male patients: SERVICES <5 mIU/mL Specimen Blood - VENOUS Narrative Performed At [facility] Gestational Age Rang e (mIU/mL) 1-10 Weeks 4 [phone] 11-15 Weeks 11 [phone] 16-22 Weeks 74 [phone] 23-40 Weeks 15 [id number] Biotin has been reported to cause a negative bias, int erpret results relative to patient's use of biotin. Performing Organization Address City/[facility] Centercode Phone Number [facility] CLIA: [id number] [place] [address] [place] [address] Hepatic Function Panel (ALB, T.PRO, BILI T, BU/BC, ALT, AST, ALK PHOS) (08/28/2020 10:08 PM CDT) Pathologist Sig nature TOTAL BILI 0.7 0.1 - 1.1 mg/dL [facility] BILI UNCON 0.9 0.1 - 1.1 mg/dL [facility] BILI CONJ 0.0 0.0 - 0.3 mg/dL [facility] T PROTEIN 6.8 6.3 - 8.2 g/dL [facility] ALBUMIN 4.1 3.5 - 5.0 g/dL [facility] ALK PHOS 56 34 - 122 U/L [facility] ALTv 21 5 - 35 U/L [facility] AST(SGOT) 20 13 - 40 U/L [facility] Specimen Blood - VENOUS Performing Organization Address City/[facility]/Zipcode Phone Number [facility] CLIA: [id number] [place] [id number] [place] [address] Basic Metabolic Panel (NA, K, CL, CO2, GLUCOSE, BUN, CREATININE, CA) (08/28/2020 10:08 PM CDT) NA 139 135 - 145 [facility] mmol/L SERVICES K 3.4 (L) 3.5 - 5.0 [facility] mmol/L SERVICES CL 108 98 - 108 mmol/L [facility] CO2 TOTAL 21 (L) 23 - 31 mmol/L [facility] AGAP 10 2 - 16 [facility] BUN 7 7 - 23 mg/dL [facility] GLUCOSE 99 70 - 110 mg/dL [facility] CREATININE 0.49 (L) 0.50 - 1.04 [facility] mg/dL SERVICES CALCIUM 9.0 8.6 - 10.6 [facility] mg/dL SERVICES eGFR Calculation 149.3 mL/min/1.73m2 [facility] (Non- SERVICES Lithuanian) eGFR Calculation 181.0 mL/min/1.73m2 [facility] () SERVICES Specimen Blood - VENOUS Narrative Performed At Association of Glomerular Filtration Rate (GFR) and St aging [facility] of Kidney Disease* [...] . Performing Organization Address City/State/Zipcode Phone Number [facility] CLIA: [id number] [place] [address] [place] [address] CBC with Differential (08/28/2020 10:08 PM CDT) Pathologist Sig nature WBC 8.57 4.30 - 11.10 [facility] 10*3/L SERVICES RBC 4.62 3.93 - 5.25 [facility] 10*6/L SERVICES HGB 14.5 11.6 - 15.0 [facility] g/dL SERVICES HCT 40.7 35.7 - 45.2 % [facility] MCV 88.1 80.6 - 95.5 fL [facility] MCH 31.4 25.9 - 32.8 pg [facility] MCHC 35.6 (H) 31.6 - 35.1 [facility] g/dL SERVICES RDW-SD 38.5 (L) 39.0 - 49.9 fL [facility] RDW-CV 12.0 12.0 - 15.5 % [facility] PLT 187 166 - 358 [facility] 10*3/L SERVICES MPV 9.8 9.5 - 12.9 fL [facility] NRBC/100 WBC 0.0 0.0 - [...] VENOUS Performing Organization Address City/State/Zipcode Phone Number [facility] CLIA: [id number] [place] [address] [place] [address] documented in this encounter Visit Diagnoses Diagnosis [...] / Subscriber ID Effective Phone Address [facility] Dates ASIA BETANCOURT [id number] 2018-Anupama [address] [facility] [place] [phone] MANAGED MEDICAID [place] documented as of this encounter Advance Directives Type Date Recorded Patient Sub Prior Explanati on Advance Directives and Living Will Power of Cooker Syrup Name Relationship Healthcare Agent Relationship Co mmunication Floyd Brown Father Health Care Agent Preet Alexx Other Health Care Agent [place] Gina Spouse [facility] Care Agent (Mobile)
--- OUTSIDE RECORDS SUMMARY | 2020-09-13 12:17 | XMS REPORT | Summary of Care ---
:1990 Author Organization [facility] Address [address] [place] [address] Care Team Providers Name Role Phone Manjit E Insurance Hmo Lauren Fernandez [facility] Primary Care Provider Reason for Visit Reason Comments Assessment wanting to terminate pregnan cy Encounter Details Date Type Department Care Team Description 08/26/2020 Telephone [facility]- Cornelius Fernandez, As sessment (wanting to [facility] terminate ) [address] [facility] [address] [place] [address] [place], [place] [phone] [phone] Allergies Active Allergy Reactions Severity Noted Date Comments Ibuprofen Hives 04/15/2014 [place] Hives 04/15/2014 Sodium Citrate (Bulk) Nausea and/or Vomiting 9 documented as of this encounter (statuses as of 08/26/2020) Medications Medication Sig Dispensed Refills Start Date End Date Status ondansetron HCl Take by mouth. 0 Active (ZOFRAN ORAL) vit Take 1 Packet by 30 Each 6 08/03/2020 Active 65-intl-elyir-dha mouth daily. 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 Tobacco Curer Utility Encounter for IUD removal and reinsertion [...] management 01/25/2015 05/20/2018 Overview: ICD10 Diagnosis Term Tobacco Curer Utility Breast tenderness in female 01/25/2015 05/20/2018 Not immune to rubella 04/16/2014 06/04/2016 Overview: ICD10 Diagnosis Term Tobacco Curer Utility documented as of this encounter (statuses [...] 08/31/2020 Routine Visit OB Satellites Lauren Fernandez, QUALITY ENGINEER MEDICAL DEVICE [address] [id number] 15 [phone] Health Maintenance Due Date Last Done Comments [...] Address T ype Group Dates ASIA BETANCOURT [id number] 2018-Anupama [address] Medic [place] [address] MANA[place]ED MEDICA[place] documented as of this encounter Advance Directives Type Date Recorded 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
--- OUTSIDE RECORDS SUMMARY | 2020-09-13 12:18 | XMS REPORT | Summary of Care ---
:1990 Author Organization [facility] Address [address] [place] [address] Care Team Providers Name Role Phone Gamal Saravia Insurance Hmo Lauren Fernandez [employer]ILOR G[employer]MENT [employer] Primary Care Provider Reason for Visit Reason Comments Assessment vomit Encounter Details Date Type Department Care Team Description 09/06/2020 Telephone [facility]- Cornelius Fernandez, As sessment (vomit) [facility] [address] [facility] [address] [place] [address] [place] [address] [phone] Allergies Active Allergy Reactions Severity Noted Date Comments Ibuprofen Hives 04/15/2014 [place] Hives 04/15/2014 Sodium Citrate (Bulk) Nausea and/or Vomiting 9 documented as of this encounter (statuses as of 09/06/2020) Medications Medication Sig Dispensed Refills Start Date End Date Status vit Take 1 Packet by 30 Each 6 08/03/2020 Active 85-npad-mvvgx-dha mouth daily. (SELECT-OB + DHA) 29 mg [...] 01/25/2015 Overview: ICD10 Diagnosis Term Manager Strategic [employer]ourcing Utility Encounter for IUD removal and reinsertion [...] 05/20/2018 Overview: ICD10 Diagnosis Term Manager [employer] Sourcing Utility Breast tenderness in female 01/25/2015 05/20/2018 Not immune to rubella 04/16/2014 06/04/2016 Overview: ICD10 Diagnosis Term Manager [employer] Sourcing Utility documented as of this encounter (statuses as of 09/06/2020) Immunizations Name Administration Dates Next Due HPV9 06/04/2016 MMR 12/20/2018 (Deferred: - not available f [facility]) TDAP 04/06/2015 TDAP [...] old female Patient stated she went to [facility] 08/28/20 for N/V and has received fluids [...] has been loosing weight , please call [phone] (home) documented in this encounter Plan of Treatment Date Type Specialty Care Team Description 09/08/2020 Routine Visit OB Satellites Lauren Fernandez FNP [address] [address] [phone] Health Maintenance Due Date Last Done Comments [...] Address T e Group Dates ASIA BETANCOURT [id number] 2018-Anupama [address] Medic [place] [address] MA[place]ED MEDICA[place] documented as of this encounter Advance Directives Type Date Recorded 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
--- OUTSIDE RECORDS SUMMARY | 2020-09-13 12:18 | XMS REPORT | Summary of Care ---
:1990 Author Organization [facility] - [facility] Address [address] [place] [address] Care Team Providers Name Role Phone Gamal Saravia Insurance Hmo Lauren Fernandez Primary Care Provider Reason for Referral (Routine) Status Reason Specialty Diagnoses / Referred By Referred To Procedures Contact Contact New Request Diagnoses Hyperemesis gravidarum Marisel Galvan, Procedures Discharge Follow-Up: Data Control Clerk Lorena FRANKLIN [address] [place], [place] [id number] Reason for Visit Auth/Cert Status Reason Specialty Diagnoses / Procedures Referred By Lauren marquez To Contact Contact Obstetrics Diagnoses 7wks IUP hyperemesis J10c [address] [place] [id number] Phone: Fax: Encounter Details Date Type Department Care Team Description 08/30/2020 - Hospital Encounter Obstetrics and Jad Isaacs ea and vomiting 09/01/2020 Gynecology (J10C) MD Tyler during [address] [place] [id number] [phone] Allergies Active Allergy Reactions Severity Noted Date Comments Ibuprofen Hives 04/15/2014 [place] Hives 04/15/2014 Sodium Citrate (Bulk) Nausea and/or Vomiting 9 documented as of this encounter (statuses as of 09/01/2020) Medications Medication Sig Dispensed Refills Start End Date Status Date vit Take 1 Packet by 30 Each 6 Active 36-lzpw-vfdvd-dha mouth daily. 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 Encounter for IUD removal and reinsertion 01/18/2015 ASCUS on Pap smear 04/15/2014 Estimated Date of Delivery Comments Yes 04/11/2021 Based on Ultrasound, FHT: 127, Transverse Presentation, Placen ta Too early to evaulate documented as of this encounter (statuses as of 09/01/2020) Resolved Problems Problem Noted Date Resolved Date 37 weeks gestation of 12/18/2018 01/08/20 19 [place] Hick's contraction 12/12/2018 01/08/2019 Abnormal maternal glucose [...] management 01/25/2015 05/20/2018 Overview: ICD10 Diagnosis 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 Diet, [place] (Adult) (Luxembourger)documented in this encounter Progress Notes Major Velasquez [...] mL IV piggyback 25 mg IV Piggyback [id number] mg at 09/01/20 0552 pyridoxine (VITAMIN B-6) [...] 08/28/2020 21 No results found for: URICACID, [id number] No results found for: LDH Assessment/Plan: Suraj [...] tolerate PO for over 2 days - [place] ED Course: s/p 2L NS bolus, IV 4mg zofran, 12.5 benadryl, 20mg Pepcid, 12.5 phenergan, refused second phenergan dose so given Reglan 10mg, 20mEq KCLrepletion - OSH labs remarkable for K 3.2, Cr 0.72, LFT WNL, lipase 59, Udip with 2+ ketone -Patient reports severe nausea, dry heaving noted in triage - Upon transfer to [facility], P 80s, BP 120/60s - Repeat [...] presentation at 37w - Documented LTCS at [facility] - Desires possible Hx PTD - G1 at 34w - G2 at 36w COVID-19 SCREEN: Lab Results Component Value Date/Time COVID19 Not Detected 08/30/2020 11:37 PM Antepartum course reviewed - seronegative, Rnot immune, VZVnot immune,A positive/IATnegative, GBSunk, PapASCUS 11/2017, neg HRHPV, needs repeat cotesting in 3 years - H/H, plt:14.5/ 40.7,187on [facility]28[facility] [id number] bpm via M mode on admission BSUS Major Velasquez MD 09/01/2020 Associated attestation - Marisel Galvan MD - 09/01/2020 10:40 AM CDT I was rounding [facility] faculty for this patient and was [...] presentation at 37w - Documented LTCS at [facility] - Desires possible Hx PTD - G1 at 34w - G2 at 36w COVID-19 SCREEN: Lab Results Component Value Date/Time COVID19 Not Detected 08/30/2020 11:37 PM Antepartum course reviewed - sero negative, Rnot immune, VZVnot immune, A positive/IAT negative, GBS unk, Pap ASCUS 11/2017, negHRHPV, needs repeat cotesting in 3 years - H/H, plt: 14.5 / 40.7, 187 on 08/28/20 [facility] FHT 171-178 bpm via M mode on admission BSUS Major Velasquez MD - 08/31/2020 1:15 PM CDTJamiee Luly Fuentes [id number] 08/31/2020 1:15 PM Post-Rounds: - daily BMP [...] Physician: Cornelius Fernandez CHIEF COMPLAINT Transfer from [facility] ED HISTORY OF PRESENT ILLNESS Suraj Fuentes is a 29 year old at 8w0d who was transferred from [facility] ED for nausea and vomiting during with [...] for over 2 days. She went to [place] ED earlier this week (3-4 days ago), then presented to [facility] ED Saturday night.She was given 1L bolus, IV zofran, IV phenergan, and reglan, PO challenged with water/crackers, thensent home with renewed eRx vitamin B6. Reports PO zofran and Reglan not helping right now, therefore went [facility] this afternoon. [facility] ED Course: Afebrile, Pulse 71-86, BP [...] Manny Gray; Location: Labor and Delivery - [place] Past Medical History: Diagnosis Date Abnormal maternal [...] Oral Q6H Allergies and drug reactions: Ibuprofen, [place], and Sodium citrate (bulk) HOME MEDICATIONS Medications [...] (ZOFRAN ORAL) Take by mouth. 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 Resolved Hospital Problems No resolved problems [...] tolerate PO for over 2 days - [place] ED Course: s/p 2L NS bolus, IV 4mg zofran, 12.5 benadryl, 20mg Pepcid, 12.5 phenergan, refused second phenergan dose so given Reglan 10mg, 20mEq KCL repletion - OSH labs remarkable for K 3.2, Cr 0.72, LFT WNL, lipase 59, Udip with 2+ ketone - Patient reports severe nausea, dry heaving noted at bedside - Upon transfer to [facility], P 80s, BP 120/60s - Repeat [...] presentation at 37w - Documented LTCS at [facility] - Desires possible Hx PTD - G1 at 34w - G2 at 36w COVID-19 SCREEN: Lab Results Component Value Date/Time COVID19 Not Detected 08/30/2020 11:37 PM Antepartum course reviewed - sero negative, Rnot immune, VZVnot immune, A positive/IAT negative, GBS unk, Pap ASCUS 11/2017, negHRHPV, needs repeat cotesting in 3 years - H/H, plt: 14.5 / 40.7, 187 [facility] 171-178 bpm via [...] - 08/31/2020 5:02 PM CDTFood Allergy and Cultural/Sabianist Food Preferences Consult Note: Spoke with patient's nurse today over the phone. Per nurse, patient with food allergy to oranges. Per allergy list patient with hives as reported reaction. Please see confirmed food allergy below. Confirmed Food Allergy: 1. [place] Reaction:Hives Confirmed Cultural Food Preferences: 1. None Confirmed Sabianist Food Preferences: 1. None Kary Coppola MS, RD, LD Clinical Dietitian RD Office: [phone] documented in this encounter Miscellaneous Notes Care [...] 09/08/2020 Routine Visit OB Satellites Lauren Fernandez, WAGE ANALYST [address] [place] [address] [phone] Name Type Priority Associated Diagnoses Order S [...] AM CDT) NA 135 135 - 145 [facility] mmol/L SERVICES K 3.6 3.5 - 5.0 [facility] mmol/L SERVICES CL 106 98 - 108 mmol/L [facility] SERVICES CO2 TOTAL 21 (L) 23 - 31 mmol/L [facility] SERVICES AGAP 8 2 - 16 [facility] SERVICES BUN 3 (L) 7 - 23 mg/dL [facility] SERVICES GLUCOSE 106 70 - 110 mg/dL [facility] SERVICES CREATININE 0.46 (L) 0.50 - 1.04 [facility] mg/dL SERVICES CALCIUM 8.6 8.6 - 10.6 [facility] mg/dL SERVICES eGFR Calculation 160.6 mL/min/1.73m2 [facility] (Non- SERVICES [place]) eGFR Calculation 194.7 mL/min/1.73m2 [facility] () SERVICES Specimen Blood - VENOUS Narrative Performed At Association of Glomerular Filtration Rate (GFR) and St aging [facility] SERVICES of Kidney [...] in imaging tests) . Performing Organization Address City/[facility] Phone Number [facility] CLIA: [id number] [place], [place] [address] [address] [place] [address] URINALYSIS (08/31/2020 4:07 PM CDT) Pathologist Sig [...] - URINE, CLEAN CATCH Performing Organization Address [facility] Phone Number [facility] CLIA: [id number] [place] [address] [place] [address] Type and Screen - ONCE Routine (08/31/2020 12:23 AM CDT) Pathologist [facility] ABO & RH A POSITIVE LAB Comment: Performed at [facility] Laboratory Services - [facility] Blood Bank [address] [place] [address] Toll Free: [phone] CLIA No. [id number] IAT Negative LAB Comment: Performed at [facility] Laboratory Services - [facility] Blood Bank [address] [place] [address] Toll Free: [phone] CLIA No. [id number] Specimen Blood - VENOUS Performing Organization Address City/[facility] Phone Number [facility] LAB BASIC METABOLIC PANEL (NA, K, CL, CO2, GLUCOSE, BUN, CREATININE, CA) (08/31/2020 12:17 AM CDT) [facility] NA 134 (L) 135 - 145 [facility] mmol/L SERVICES K 3.8 3.5 - 5.0 [facility] mmol/L SERVICES CL 104 98 - 108 mmol/L [facility] SERVICES CO2 TOTAL 22 (L) 23 - 31 mmol/L [facility] SERVICES AGAP 8 2 - 16 [facility] SERVICES BUN <2 (L) 7 - 23 mg/dL [facility] SERVICES GLUCOSE 87 70 - 110 mg/dL [facility] SERVICES CREATININE 0.50 0.50 - 1.04 [facility] mg/dL SERVICES CALCIUM 8.8 8.6 - 10.6 [facility] mg/dL SERVICES eGFR Calculation 145.9 mL/min/1.73m2 [facility] (Non- SERVICES [place]) eGFR Calculation 176.8 mL/min/1.73m2 [facility] () SERVICES Specimen Blood - VENOUS Narrative Performed At Association of Glomerular Filtration Rate (GFR) and St aging [facility] SERVICES of Kidney [...] in imaging tests) . Performing Organization Address City/[facility]/Zipcode Phone Number [facility] CLIA: [id number] [place] [address] [place] [address] COVID-19 (ID NOW RAPID TESTING) (08/30/2020 11:37 PM CDT) SARS-CoV-2 Rapid ID Not Detected Not Detected [facility] NOW SERVICES Specimen Swab - NASOPHARYNGEAL SWAB Narrative Performed At IN NOW COVID-19 Assay is an isothermal nucleic acid [facility] SERVICES amplification test intended for the qualitative detect ion of nucleic acid from SARS-CoV-2 viral RNA in nasopharynge al (DELIVERY OF [employer]) specimens. It is used under Emergency Use [...] indicated. Performing Organization Address City/State/Zipcode Phone Number [facility] CLIA: [id number] [place] [address] [phone] [address] [facility] URINALYSIS (08/30/2020 10:44 PM CDT) Pathologist Sig nature APPEARANCE Clear Clear [facility] COLOR Yellow Yellow [facility] PH 7.0 4.8 - 8.0 [facility] SP GRAVITY 1.012 1.003 - 1.030 [facility] SERVICES GLU U QUAL Normal Normal [facility] BLOOD Negative Negative [facility] KETONES 80 mg/dL (A) Negative [facility] PROTEIN Negative Negative [facility] UROBILIN Normal Normal [facility] BILIRUBIN Negative Negative [facility] NITRITE Negative Negative [facility] LEUK HO Negative Negative [facility] RBC/HPF 2 0 - 3 HPF [facility] SERVICES WBC/HPF <1 0 - 5 HPF [facility] BACTERIA Negative Negative [facility] MUCOUS Slight (A) Negative LPF [facility] SERVICES SQ EPITH 1 <=2 HPF [facility] ASCORBIC ACID Negative [facility] SERVICES Specimen Urine - URINE, CLEAN CATCH Performing Organization Address City/State/Zipcode Phone Number [facility] CLIA: [id number] [place] [address] [place] [address] documented in this encounter Visit Diagnoses Diagnosis [...] mL/hr, 1,000 mL, Intravenous, ONCE, 1 dose, [facility] 08/30/20 at 2330, Routine potassium chloride [...] Address T ype Group Dates ASIA BETANCOURT [id number] 2018-Anupama P O BOX Medic [place] [id number] MANAGED MEDICAID [place] documented as of this encounter Advance Directives Type Date Recorded 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
--- OUTSIDE RECORDS SUMMARY | 2020-09-13 12:19 | XMS REPORT | Summary of Care ---
:1990 Author Organization [facility] Address [address] [place] [address] Care Team Providers Name Role Phone Gamal Saravia Insurance Hmo Lauren Fernandez TRANSFER CONTROLLER Primary Care Provider Reason for Visit Reason Comments Assessment vomit Encounter Details Date Type Department Care Team Description 09/06/2020 Telephone [facility]- Cornelius Fernandez, As sessment (vomit) [facility] [address] [facility] [address] [place] [address] [place] [address] [phone] Allergies Active Allergy Reactions Severity Noted Date Comments Ibuprofen Hives 04/15/2014 [place] Hives 04/15/2014 Sodium Citrate (Bulk) Nausea and/or Vomiting 9 documented as of this encounter (statuses as of 09/06/2020) Medications Medication Sig Dispensed Refills Start End Date Status Date vit Take 1 Packet by 30 Each 6 Active 29-woyk-qavzi-dha mouth daily. 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 Encounter for IUD removal and reinsertion 01/18/2015 ASCUS on Pap smear 04/15/2014 Estimated Date of Delivery Comments Yes 04/11/2021 Based on Ultrasound, FHT: 127, Transverse Presentation, Placen ta Too early to evaulate documented as of this encounter (statuses as of 09/06/2020) Resolved Problems Problem Noted Date Resolved Date 37 weeks gestation of 12/18/2018 01/08/20 19 [place] Hick's contraction 12/12/2018 01/08/2019 Abnormal maternal glucose [...] management 01/25/2015 05/20/2018 Overview: ICD10 Diagnosis 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 Produce Team Member Utility Breast tenderness in female 01/25/2015 05/20/2018 Not immune to rubella 04/16/2014 06/04/2016 Overview: ICD10 Diagnosis Term Produce Team Member Utility documented as of this encounter (statuses [...] old female Patient stated she went to [facility] 08/28/20 for N/V and has [...] has been loosing weight , please call [phone] (home) documented in this encounter Plan of Treatment Date Type Specialty Care Team Description 09/08/2020 Routine Visit OB Satellites Lauren Fernandez, TRANSFER CONTROLLER [address] [address] 15 [phone] Health Maintenance Due Date Last Done Comments [...] Address T e Group Dates ASIA BETANCOURT [id number] 2018-Anupama Camacho O BOX Medic [place] [address] MA[place]ED MEDICA[place] documented as of this encounter Advance Directives Type Date Recorded 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
--- OUTSIDE RECORDS SUMMARY | 2020-09-13 12:19 | XMS REPORT | Summary of Care ---
:1990 Author Organization [facility] Address [address] [place] [address] Care Team Providers Name Role Phone Gamal Saravia Insurance Hmo Lauren Fernandez SUPERVISOR PLATE PASTING Primary Care Provider Reason for Visit Reason Comments Assessment vomit Encounter Details Date Type Department Care Team Description 09/06/2020 Telephone [facility]- Cornelius Fernandez, As sessment (vomit) [facility] [address] [facility] [address] [place] [address] [place] [address] [phone] Allergies Active Allergy Reactions Severity Noted Date Comments Ibuprofen Hives 04/15/2014 [place] Hives 04/15/2014 Sodium Citrate (Bulk) Nausea and/or Vomiting 9 documented as of this encounter (statuses as of 09/06/2020) Medications Medication Sig Dispensed Refills Start Date End Date Status vit Take 1 Packet by 30 Each 6 08/03/2020 Active 17-euge-omfws-dha mouth daily. 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 Utility Encounter for IUD removal and reinsertion [...] management 01/25/2015 05/20/2018 Overview: ICD10 Diagnosis Term Broker Utility Breast tenderness in female 01/25/2015 05/20/2018 Not immune to rubella 04/16/2014 06/04/2016 Overview: ICD10 Diagnosis Term Broker Utility documented as of this encounter (statuses [...] old female Patient stated she went to [facility] 08/28/20 for N/V and has received fluids [...] has been loosing weight , please call [phone] (home) documented in this encounter Plan of Treatment Date Type Specialty Care Team Description 09/08/2020 Routine Visit OB Satellites Lauren Fernandez FNP [address] [address] [phone] Health Maintenance Due Date Last Done Comments [...] Address T e Group Dates ASIA BETANCOURT [id number] 2018-Anupama P O BOX Medic [place] [address] [place] MEDICA[place] documented as of this encounter Advance Directives Type Date Recorded 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 Health Care Agent (Mobile)
--- OUTSIDE RECORDS SUMMARY | 2020-09-13 12:19 | XMS REPORT | Summary of Care ---
:1990 Author Organization [facility] Address [address] [place] [address] Care Team Providers Name Role Phone Gamal Saravia Insurance Hmo Lauren Fernandez HIDE SALTER Primary Care Provider Reason for Visit Reason Comments Assessment vomit Encounter Details Date Type Department Care Team Description 09/06/2020 Telephone [facility]- Cornelius Fernandez, As sessment (vomit) [facility] [address] [facility] [address] [place] [address] [place] [address] [phone] Allergies Active Allergy Reactions Severity Noted Date Comments Ibuprofen Hives 04/15/2014 [place] Hives 04/15/2014 Sodium Citrate (Bulk) Nausea and/or Vomiting 9 documented as of this encounter (statuses as of 09/06/2020) Medications Medication Sig Dispensed Refills Start End Date Status Date vit Take 1 Packet by 30 Each 6 Active 82-owwa-tkdmj-dha mouth daily. 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 Technical Recruiter Utility Encounter for IUD removal and reinsertion 01/18/2015 ASCUS on Pap smear 04/15/2014 Estimated Date of Delivery Comments Yes 04/11/2021 Based on Ultrasound, FHT: 127, Transverse Presentation, Placen ta Too early to evaulate documented as of this encounter (statuses as of 09/06/2020) Resolved Problems Problem Noted Date Resolved Date 37 weeks gestation of 12/18/2018 01/08/20 19 [place] Hick's contraction 12/12/2018 01/08/2019 Abnormal maternal glucose [...] management 01/25/2015 05/20/2018 Overview: ICD10 Diagnosis Term Technical Recruiter Utility Breast tenderness in female 01/25/2015 05/20/2018 Not immune to rubella 04/16/2014 06/04/2016 Overview: ICD10 Diagnosis Term Technical Recruiter Utility documented as of this encounter (statuses [...] old female Patient stated she went to [facility] and was given a shot of phenergan. Patient stated she wasgiven Tylenol but vomited and is pain. Stated her is taking her to [facility]. informed patient to f/u after and discharge [...] old female Patient stated she went to [facility] 08/28/20 for N/V and has received [...] has been loosing weight , please call [phone] (home) documented in this encounter Plan of Treatment Date Type Specialty Care Team Description 09/08/2020 Routine Visit OB Satellites Lauren Fernandez FNP [address] [place], [place] [address] [phone] Health Maintenance Due Date Last Done Comments [...] Address T e Group Dates ASIA BETANCOURT [id number] 2018-Anupama Camacho O BOX Medic [place] [place] [address] MANAGED MEDICAID [place] documented as of this encounter Advance Directives Type Date Recorded Patient Middle [employer] Guidance Counselor Explanati on Advance Directives and Living Will Power of Sql Server Developer Name Relationship Healthcare Agent Relationship Co mmunication Floyd Brown Father Health Care Agent Preet Coffey Other Health Care Agent [place] Fuentes Spouse First [facility] Care Agent (Mobile)
--- OUTSIDE RECORDS SUMMARY | 2020-09-13 12:20 | XMS REPORT | Summary of Care ---
:[address] [facility] Address [address] [place] [address] Care Team Providers Name Role Phone Gamal Saravia Insurance Hmo Lauren Fernandez Primary Care Provider Reason for Visit Reason Comments Abdominal Pain Vomiting Auth/Cert Status Reason Specialty Diagnoses / Referred By Referred To Procedures Contact Contact Emergency Medicine Adc Em ergency Dept [address] [id number] Fax: Encounter Details Date Type Department Care Team Description 09/07/2020 Emergency ADC-Emergency Depart ment Mary Carmen Jacobs, PAC [address] [place] [address] [place] [address] [place] [address] [phone] Allergies Active Allergy Reactions Severity Noted Date Comments Ibuprofen Hives 04/15/2014 [facility] Hives 04/15/2014 Sodium Citrate (Bulk) Nausea and/or Vomiting 9 documented as of this encounter (statuses as of 09/07/2020) Medications Medication Sig Dispensed Refills Start Date End Date Status vit Take 1 Packet by 30 Each 6 08/03/2020 Active 15-rlum-cbdyi-dha mouth daily. 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 Serger Utility Encounter for IUD removal and reinsertion [...] management 01/25/2015 05/20/2018 Overview: ICD10 Diagnosis Term Serger Utility Breast tenderness in female 01/25/2015 05/20/2018 Not immune to rubella 04/16/2014 06/04/2016 Overview: ICD10 Diagnosis Term Serger Utility documented as of this encounter (statuses [...] active vomiting noted. Also discussed contacting her sheet metal worker supervisor for termination. Pt signed AMA form and walked out of ER without incident. Brenda frost RN - 09/07/2020 2:45 PM CDTPt upset with staff regarding visitor policy states, "She just needs an dbas. She needs toget this baby out of [...] 09/08/2020 Routine Visit OB Satellites Lauren Fernandez, BREAD AND PASTRY BAKER [address] [place], [place] [address] [phone] Health Maintenance Due Date Last Done Comments [...] Address T ype Group Dates ASIA BETANCOURT [id number] 2018-Anupama Camacho [address] B[address] Medic [place] [id number] [place]ED [place] documented as of this encounter Advance Directives Type Date Recorded Patient Disaster Recovery Analyst Explanati on Advance Directives and Living Will Power of Direct Sales Professional Name Relationship Healthcare Agent Relationship Co mmunication Floyd Brown [facility] Health Care Agent Preet Coffey Other Health Care Agent [place] Fuentes Spouse First [facility] Health Care Agent (Mobile)
--- OUTSIDE RECORDS SUMMARY | 2020-09-13 12:20 | XMS REPORT | Summary of Care ---
:1990 Author Organization [facility] Address [address] [place] [address] Care Team Providers Name Role Phone Gamal Saravia Insurance Hmo Lauren Fernandez Primary Care Provider Reason for Visit Reason Comments ROUTINE VISIT (Routine) Status Reason Specialty Diagnoses / Referred By Referred To Procedures Contact Contact New Request OB Satellites Diagnoses Hyperemesis gravidarum Marisel Galvan, Procedures Discharge Follow-Up: Talent Development Coordinator Lorena FRANKLIN [address] [facility] [id number] [place] [address] Encounter Details Date Type Department Care Team Description 09/08/2020 Routine [facility]- Cornelius Fernandez upervision of high risk in first trimester (Primary Dx); Visit ELIZ Holland Previous section complicating p regnancy; [address] [place]ANC[place] (vaginal after ) trial; [address]; [place], [place], [place] Nausea and vomi ting during ; [phone] Obesity in [phone] Allergies Active Allergy Reactions Severity Noted Date Comments Ibuprofen Hives 04/15/2014 [place] Hives 04/15/2014 Sodium Citrate (Bulk) Nausea and/or Vomiting 9 documented as of this encounter (statuses as of 09/08/2020) Medications Medication Sig Dispensed Refills Start Date End Date Status vit Take 1 Packet by 30 Each 6 08/03/2020 Active 52-fidf-ncjoz-dha mouth daily. 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 Government Minister Utility Encounter for IUD removal and reinsertion 01/18/2015 ASCUS on Pap smear 04/15/2014 Estimated Date of Delivery Comments Yes 04/11/2021 Based on Ultrasound, FHT: 127, Transverse Presentation, Placen ta Too early to evaulate documented as of this encounter (statuses as of 09/08/2020) Resolved Problems Problem Noted Date Resolved Date 37 weeks gestation of 12/18/2018 01/08/20 19 [place] Hick's contraction 12/12/2018 01/08/2019 Abnormal maternal glucose [...] management 01/25/2015 05/20/2018 Overview: ICD10 Diagnosis Term Government Minister Utility Breast tenderness in female 01/25/2015 05/20/2018 Not immune to rubella 04/16/2014 06/04/2016 Overview: ICD10 Diagnosis Term Government Minister Utility documented as of this encounter (statuses [...] in this encounter Progress Notes Cornelius Fernandez, WASH CREW PERSON - 09/08/2020 10:45 AM CDT Chief complaint: Chief Complaint Patient presents with ROUTINE VISIT HPI CC: Follow Up Visit Suraj Fuentes is a 29 year old, , /White female. Patient's last menstrual period was 06/08/2020 (approximate). She is 9w2d with an intrauterine . Her estimated date of delivery is 04/11/2021, by Ultrasound. She went to [facility] ER for nausea and vomitin g, [...] Manny Gray; Location: Labor and Delivery - [place] Social History Socioeconomic History Marital status: Spouse [...] file Gets together: Not on file Attends pentecostalism service: Not on file Active member of [...] sexual or emotional abuse. Only outside cats. Mosque: None Patient lives with spouse and kids. [...] problems of obesity on future pregnancies and/or fpc health. Return to clinic in 4 weeks. [...] / Subscriber ID Effective Phone Address T formerly [facility] Group Dates ASIA BETANCOURT [id number] 2018-Anupama HIDALGO Medic [place] [id number] [place] documented as of this encounter Advance Directives Type Date Recorded Patient Exceptional Children Teacher Assistant Explanati on Advance Directives and Living Will Power of Nurse Midwife/Clinical Instructor Name Relationship Healthcare Agent Relationship Co mmunication Floyd Brown Father Health Care Agent Preet Coffey Other Health Care Agent [place] Fuentes Spouse First [facility] Health Care Agent (Mobile)
--- OUTSIDE RECORDS SUMMARY | 2020-09-13 12:21 | XMS REPORT | Summary of Care ---
:1990 Author Organization [facility] Address [address] [place] [address] Care Team Providers Name Role Phone Gamal Saravia Insurance Hmo Lauren Fernandez Primary Care Provider Reason for Visit Reason Comments ROUTINE VISIT (Routine) Status Reason Specialty Diagnoses / Referred By Referred To Procedures Contact Contact New Request OB Satellites Diagnoses Hyperemesis gravidarum Marisel Galvan, Procedures Discharge Follow-Up: Supervisor Waterproofing Lorena FRANLKIN [address] [facility] [id number] [place] [address] Encounter Details Date Type Department Care Team Description 09/08/2020 Routine [facility]- Cornelius Fernandez upervision of high risk in first trimester (Primary Dx); Visit ELIZ Holland Previous section complicating p regnancy; [address] [place] [place] NANCY (vaginal after ) trial; [address] [place] [address]; [place], [place], [place] Nausea and vomi ting during ; [phone] Obesity in [phone] Allergies Active Allergy Reactions Severity Noted Date Comments Ibuprofen Hives 04/15/2014 [place] Hives 04/15/2014 Sodium Citrate (Bulk) Nausea and/or Vomiting 9 documented as of this encounter (statuses as of 09/08/2020) Medications Medication Sig Dispensed Refills Start Date End Date Status vit Take 1 Packet by 30 Each 6 08/03/2020 Active 23-uuth-whbno-dha mouth daily. 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 Neon Technician Utility Encounter for IUD removal and reinsertion 01/18/2015 ASCUS on Pap smear 04/15/2014 Estimated Date of Delivery Comments Yes 04/11/2021 Based on Ultrasound, FHT: 127, Transverse Presentation, Placen ta Too early to evaulate documented as of this encounter (statuses as of 09/08/2020) Resolved Problems Problem Noted Date Resolved Date 37 weeks gestation of 12/18/2018 01/08/20 19 [place] Hick's contraction 12/12/2018 01/08/2019 Abnormal maternal glucose [...] management 01/25/2015 05/20/2018 Overview: ICD10 Diagnosis Term Neon Technician Utility Breast tenderness in female 01/25/2015 05/20/2018 Not immune to rubella 04/16/2014 06/04/2016 Overview: ICD10 Diagnosis Term Neon Technician Utility documented as of this encounter [...] in this encounter Progress Notes Cornelius Fernandez, TURN OUT WORKER - 09/08/2020 10:45 AM CDT Chief complaint: Chief Complaint Patient presents with ROUTINE VISIT HPI CC: Follow Up Visit Suraj Fuentes is a 29 year old, , /White female. Patient's last menstrual period was 06/08/2020 (approximate). She is 9w2d with an intrauterine . Her estimated date of delivery is 04/11/2021, by Ultrasound. She went to [facility] ER for nausea and vomitin g, [...] Gray; Location: Labor and Delivery - [place] Social History Socioeconomic History Marital status: Spouse [...] file Gets together: Not on file Attends amish service: Not on file Active member of [...] sexual or emotional abuse. Only outside cats. Rastafari: None Patient lives with spouse and kids. [...] problems of obesity on future pregnancies and/or custodial health. Return to clinic in 4 weeks. [...] Address T ype Group Dates ASIA BETANCOURT [id number] 2018-Anupama Camacho O BOX Medic aid HEALTHCARE - [facility] [id number] MANAGED MEDICAID [place], [place] documented as of this encounter Advance Directives Type Date Recorded Patient Wire Weaver Explanati on Advance Directives and Living Will Power of Assembler Utility Buildings Name Relationship Healthcare Agent Relationship Co mmunication Floyd Brown Father Health Care Agent Preet Coffey Other Health Care Agent [place] Gina Spouse First [facility] Health Care Agent (Mobile)
--- OUTSIDE RECORDS SUMMARY | 2020-09-13 12:21 | XMS REPORT | Summary of Care ---
:1990 Author Organization [facility] Address [address] [place] [address] Care Team Providers Name Role Phone Gamal Saravia Insurance Hmo Lauren Fernandez Primary Care Provider Reason for Visit Reason Comments ROUTINE VISIT (Routine) Status Reason Specialty Diagnoses / Referred By Referred To Procedures Contact Contact New Request OB Satellites Diagnoses Hyperemesis gravidarum Marisel Galvan, Procedures Discharge Follow-Up: Turner Machine Lorena FRANKLIN [address] [facility] [id number] [place] [address] Encounter Details Date Type Department Care Team Description 09/08/2020 Routine [facility]- Cornelius Fernandez upervision of high risk in first trimester (Primary Dx); Visit ELIZ Holland Previous section complicating p regnancy; [address] V NANCY (vaginal after ) trial; [address] [place] [address]; [place], [place], [place] Nausea and vomi ting during ; [phone] Obesity in [phone] Allergies Active Allergy Reactions Severity Noted Date Comments Ibuprofen Hives 04/15/2014 [place] Hives 04/15/2014 Sodium Citrate (Bulk) Nausea and/or Vomiting 9 documented as of this encounter (statuses as of 09/08/2020) Medications Medication Sig Dispensed Refills Start Date End Date Status vit Take 1 Packet by 30 Each 6 08/03/2020 Active 44-jufc-drhvw-dha mouth daily. 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 Education Consultant Utility Encounter for IUD removal and reinsertion 01/18/2015 ASCUS on Pap smear 04/15/2014 Estimated Date of Delivery Comments Yes 04/11/2021 Based on Ultrasound, FHT: 127, Transverse Presentation, Placen ta Too early to evaulate documented as of this encounter (statuses as of 09/08/2020) Resolved Problems Problem Noted Date Resolved Date 37 weeks gestation of 12/18/2018 01/08/20 19 [place] Hick's contraction 12/12/2018 01/08/2019 Abnormal maternal glucose [...] management 01/25/2015 05/20/2018 Overview: ICD10 Diagnosis Term Education Consultant Utility Breast tenderness in female 01/25/2015 05/20/2018 Not immune to rubella 04/16/2014 06/04/2016 Overview: ICD10 Diagnosis Term Education Consultant Utility documented as of this encounter (statuses as of 09/08/2020) Immunizations Name Administration Dates Next Due HPV9 06/04/2016 MMR 12/20/2018 (Deferred: - not available f [facility]) TDAP 04/06/2015 TDAP [...] in this encounter Progress Notes Cornelius Fernandez, PIPE AND BOILER COVERS SUPERVISOR - 09/08/2020 10:45 AM CDT Chief complaint: Chief Complaint Patient presents with ROUTINE VISIT HPI CC: Follow Up Visit Suraj Fuentes is a 29 year old, , /White female. Patient's last menstrual period was 06/08/2020 (approximate). She is 9w2d with an intrauterine . Her estimated date of delivery is 04/11/2021, by Ultrasound. She went to [facility] ER for nausea and vomitin g, [...] Manny Gray; Location: Labor and Delivery - [place] Social History Socioeconomic History Marital status: Spouse [...] file Gets together: Not on file Attends samaritan service: Not on file Active member of [...] sexual or emotional abuse. Only outside cats. Holiness: None Patient lives with spouse and kids. [...] problems of obesity on future pregnancies and/or snf health. Return to clinic in 4 weeks. [...] 10/06/2020 Routine Visit OB Satellites Lauren Fernandez, PIPE AND BOILER COVERS SUPERVISOR [address] [place], [place] [address] [phone] Health Maintenance Due Date Last Done Comments [...] Address T ype Group Dates ASIA BETANCOURT [id number] 2018-Anupama HIDALGO Medic [place] [id number] MA[place]ED MED[place] documented as of this encounter Advance Directives Type Date Recorded Patient Medicine And Health Service Manager Explanati on Advance Directives and Living Will Power of Kindergarten Prep Teacher Name Relationship Healthcare Agent Relationship Co mmunication Floyd Brown Father Health Care Agent Preet Milagrosteph Other Health Care Agent [place] Fuentes Spouse First [facility] Health Care Agent (Mobile)
--- OUTSIDE RECORDS SUMMARY | 2020-09-13 12:21 | XMS REPORT | Summary of Care ---
:1990 Author Organization [facility] Address [address] [place] [address] Care Team Providers Name Role Phone Gamal Saravia Insurance Hmo Lauren Fernandez DISCHARGE RN Primary Care Provider Reason for Visit Reason Comments Rx Concern/Question prior auth go to cover mymed s [id number] Encounter Details Date Type Department Care Team Description 09/07/2020 Telephone [facility]- Cornelius Fernandez, Rx Concern/Question [place] FNP (prior auth go to [facility] [address] [facility] cover mymeds [id number]) [place] [address] [place], [place] [phone] [address] [phone] Allergies Active Allergy Reactions Severity Noted Date Comments Ibuprofen Hives 04/15/2014 [place] Hives 04/15/2014 Sodium Citrate (Bulk) Nausea and/or Vomiting 9 documented as of this encounter (statuses as of 09/08/2020) Medications Medication Sig Dispensed Refills Start Date End Date Status vit Take 1 Packet by 30 Each 6 08/03/2020 Active 26-ygcu-dqrqy-dha mouth daily. 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 Major Gifts Manager Utility Encounter for IUD removal and reinsertion 01/18/2015 ASCUS on Pap smear 04/15/2014 Estimated Date of Delivery Comments Yes 04/11/2021 Based on Ultrasound, FHT: 127, Transverse Presentation, Placen ta Too early to evaulate documented as of this encounter (statuses as of 09/08/2020) Resolved Problems Problem Noted Date Resolved Date 37 weeks gestation of 12/18/2018 01/08/20 19 [place] Hick's contraction 12/12/2018 01/08/2019 Abnormal maternal glucose [...] management 01/25/2015 05/20/2018 Overview: ICD10 Diagnosis Term Major Gifts Manager Utility Breast tenderness in female 01/25/2015 05/20/2018 Not immune to rubella 04/16/2014 06/04/2016 Overview: ICD10 Diagnosis Term Major Gifts Manager Utility documented as of this encounter [...] for authorization of nausea medication. Please call [phone] (home) documented in this encounter Plan of Treatment Date Type Specialty Care Team Description 10/06/2020 Routine Visit OB Satellites Lauren Fernandez, DISCHARGE RN [address] [address] [phone] Health Maintenance Due Date Last Done Comments [...] Address T biancae Group Dates ASIA BETANCOURT [id number] 2018-Anupama Camacho [address] Medic [place] [id number] MANAGED MED[place] documented as of this encounter Advance Directives Type Date Recorded Patient Power House Engineer Explanati on Advance Directives and Living Will Power of Editor Magazine Name Relationship Healthcare Agent Relationship Co mmunication Floyd Brown Father Health Care Agent Preet Coffey Other Health Care Agent [place] Fuentes Spouse First [facility] Health Care Agent (Mobile)
--- OUTSIDE RECORDS SUMMARY | 2020-09-13 12:22 | XMS REPORT | Summary of Care ---
:1990 Author Organization [facility] Address [address] [place] [address] Care Team Providers Name Role Phone Gamal Saravia Insurance Hmo Lauren Fernandez Primary Care Provider Reason for Visit Reason Comments Abdominal Pain Encounter Details Date Type Department Care Team Description 09/09/[address] [facility] [place]- Graciela Burks, Abdominal Pain [facility] [address] [facility] [address] [place] [address]55 [facility] [phone] [place], [place] [address] [phone] Allergies Active Allergy Reactions Severity Noted Date Comments Ibuprofen Hives 04/15/2014 [place] Hives 04/15/2014 Sodium Citrate (Bulk) Nausea and/or Vomiting 9 documented as of this encounter (statuses as of 09/09/2020) Medications Medication Sig Dispensed Refills Start Date End Date Status vit Take 1 Packet by 30 Each 6 08/03/2020 Active 94-eujv-ymdts-dha mouth daily. 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 Cosmetic Counselor Utility Encounter for IUD removal and reinsertion [...] management 01/25/2015 05/20/2018 Overview: ICD10 Diagnosis Term Cosmetic Counselor Utility Breast tenderness in female 01/25/2015 05/20/2018 Not immune to rubella 04/16/2014 06/04/2016 Overview: ICD10 Diagnosis Term Cosmetic Counselor Utility documented as of this encounter (statuses as of 09/09/2020) Immunizations Name Administration Dates Next Due HPV9 06/04/2016 MMR 12/20/2018 (Deferred: - not available f [facility] pharmacy) TDAP 04/06/2015 TDAP (ADACEL) [...] she states she was seen [facility] earlier today but reports no imaging was done, she was only given IV fluids. Patient advised to go to L&D for further evaluation, the gentleman and patient agreed and reported that he would to take her to [facility]. Report called and given to Sharlene MEJÍA. BELLA Brower 09/09/2020 4:24 PM documented in this encounter Plan of Treatment Date Type Specialty Care Team Description 10/06/2020 Routine Visit OB Satellites Lauren Fernandez, CAUL FAT PULLER [address] [place], [place] [address] [phone] Health Maintenance Due Date Last Done Comments [...] Address T e Group Dates ASIA BETANCOURT [id number] 2018-Anupama S[place] BOX Medic [place] [id number] MANAGED MED[place] documented as of this encounter Advance Directives Type Date Recorded Patient Hr Advisor Explanati on Advance Directives and Living Will Power of Finance Business Manager Name Relationship Healthcare Agent Relationship Co mmunication Floyd Brown [facility] Health Care Agent Preet Coffey Other Health Care Agent [place] Fuentes Spouse First [facility] Health Care Agent (Mobile)
--- OUTSIDE RECORDS SUMMARY | 2020-09-13 12:22 | XMS REPORT | Summary of Care ---
:1990 Author Organization [facility] Address [address] [place] [address] Care Team Providers Name Role Phone Gamal Saravia Insurance Hmo Lauren Fernandez PROPERTY CONTROLLER Primary Care Provider Reason for Visit Reason Comments Other PRIOR AUTH go to [facility] [id number] Encounter Details Date Type Department Care Team Description 09/08/2020 Telephone [facility]- Cornelius Fernandez, Ot her (PRIOR AUTH go [facility] to [facility] [address] [facility] [id number]) [place] [address] [place], [place] [phone] [address] [phone] Allergies Active Allergy Reactions Severity Noted Date Comments Ibuprofen Hives 04/15/2014 [place] Hives 04/15/2014 Sodium Citrate (Bulk) Nausea and/or Vomiting 9 documented as of this encounter (statuses as of 09/09/2020) Medications Medication Sig Dispensed Refills Start Date End Date Status vit Take 1 Packet by 30 Each 6 08/03/2020 Active 41-yvqo-zgymr-dha mouth daily. 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 Cage Operator Utility Encounter for IUD removal and reinsertion 01/18/2015 ASCUS on Pap smear 04/15/2014 Estimated Date of Delivery Comments Yes 04/11/2021 Based on Ultrasound, FHT: 127, Transverse Presentation, Placen ta Too early to evaulate documented as of this encounter (statuses as of 09/09/2020) Resolved Problems Problem Noted Date Resolved Date 37 weeks gestation of 12/18/2018 01/08/20 19 [place] Hick's contraction 12/12/2018 01/08/2019 Abnormal maternal glucose [...] management 01/25/2015 05/20/2018 Overview: ICD10 Diagnosis Term Cage Operator Utility Breast tenderness in female 01/25/2015 05/20/2018 Not immune to rubella 04/16/2014 06/04/2016 Overview: ICD10 Diagnosis Term Cage Operator Utility documented as of this encounter [...] 09/09/2020 1:52 PM Telephone Encounter - Leyla aSpp - 09/08/2020 4:09 PM CDTGo to covermymeds Doxylamine [id number] signed by Leyla Sapp at 09/08/2020 4:13 PM CDT documented in this encounter Plan of Treatment Date Type Specialty Care Team Description 10/06/2020 Routine Visit OB Satellites Lauren Fernandez, PROPERTY CONTROLLER [address] [place], [place] [address] [phone] Health Maintenance Due Date Last Done Comments [...] Address T ype Group Dates ASIA BETANCOURT [id number] 2018-Anupama HIDALGO Medic [place] [id number] MA[place]ED MED[place] documented as of this encounter Advance Directives Type Date Recorded Patient Interventional Radiology Technologist Explanati on Advance Directives and Living Will Power of Chip Tester Name Relationship Healthcare Agent Relationship Co mmunication Floyd Brown [facility] Health Care Agent Preet Coffey Other Health Care Agent [place] Fuentes Spouse First [facility] Health Care Agent (Mobile)
--- OUTSIDE RECORDS SUMMARY | 2020-09-13 12:22 | XMS REPORT | Summary of Care ---
:[address] [facility] Address [address] [place] [address] Care Team Providers Name Role Phone Gamal Saravia Insurance Hmo Lauren Fernandez Primary Care Provider Reason for Visit Reason Comments Assessment Encounter Details Date Type Department Care Team Description 09/09/2020 Telephone [facility] RMP- A Cornelius Allen FNP Assessment [address] [facility] [address] [place] [address] [address] [place] [address] [phone] Allergies Active Allergy Reactions Severity Noted Date Comments Ibuprofen Hives 04/15/2014 [place] Hives 04/15/2014 Sodium Citrate (Bulk) Nausea and/or Vomiting 9 documented as of this encounter (statuses as of 09/09/2020) Medications Medication Sig Dispensed Refills Start Date End Date Status vit Take 1 Packet by 30 Each 6 08/03/2020 Active 50-uith-czyvd-dha mouth daily. 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 Utility Encounter for IUD removal and reinsertion [...] management 01/25/2015 05/20/2018 Overview: ICD10 Diagnosis Term Aeronautics Teacher Utility Breast tenderness in female 01/25/2015 05/20/2018 Not immune to rubella 04/16/2014 06/04/2016 Overview: ICD10 Diagnosis Term Aeronautics Teacher Utility documented as of this encounter (statuses [...] 10/06/2020 Routine Visit OB Satellites Lauren Fernandez, CASTING SORTER [address] [address] 15 [phone] Health Maintenance Due Date Last Done Comments [...] Subscriber ID Effective Phone Address [facility] Group Dates ASIA BETANCOURT [id number] 2018-Anupama Camacho O BOX [facility] [place] [id number] MANAGED MEDICAID [place] documented as of this encounter Advance Directives Type Date Recorded Patient Central Office Frame Wirer Explanati on Advance Directives and Living Will Power of Patternmaker Wood Name Relationship Healthcare Agent Relationship Co mmunication Floyd Brown Father Health Care Agent Preet Coffey Other Health Care Agent [place] Gina Spouse [facility] Care Agent (Mobile)
--- OUTSIDE RECORDS SUMMARY | 2020-09-13 12:23 | XMS REPORT | Summary of Care ---
:[address] [facility] Address [address] [place] [address] Care Team Providers Name Role Phone Gamal Saravia Insurance Hmo Lauren Fernandez CORRECTIVE THERAPY AIDE TEACHER Primary Care Provider Reason for Referral (Routine) Status Reason Specialty Diagnoses / Procedures Referred By Lauren marquez To Contact Contact New Request Diagnoses Nausea and vomiting, intractability of vomiting not specified, unspecified vomiting type Hyperemesis gravidarum Prema Hernandez MD Procedures Discharge Follow-Up: Center Consultant Clnic [address] [place] [address]. [place] [address] Radiology Services (STAT) Status Reason Specialty Diagnoses / Referred By Referred To Procedures Contact Contact New Request Diagnostic Diagnoses Nausea and vomiting, intractability of vomiting not specified, unspecified vomiting type Generalized abdominal pain Marcelo Carpio Radiology Procedures US ABDOMEN LIMITED MD Keerthi [address] [place] [address] [id number] [place] [address] Reason for Visit Reason Comments Abdominal Pain Auth/Cert Status Reason Specialty Diagnoses / Referred By Referred To Procedures Contact Contact Emergency Medicine Ed[facility]Raquel rgency Dept [address] [place] [address] Fax: Encounter Details Date Type Department Care Team Description 09/09/2020 - Hospital Encounter Obstetrics and ShirinMarcelo MD [id number] [place], [place] [address] Nausea & vomiting 09/10/2020 Gynecology (J10C) Karlie Brown MD [id number] [place], [place] [address] [address] [place] [address] Allergies Active Allergy Reactions Severity Noted Date Comments Ibuprofen Hives 04/15/2014 [place] Hives 04/15/2014 Sodium Citrate (Bulk) Nausea and/or Vomiting 9 documented as of this encounter (statuses as of 09/10/2020) Medications Medication Sig Dispensed Refills Start Date End Date Status vit Take 1 Packet by 30 Each 6 08/03/2020 Active 82-jguw-iuhcg-dha mouth daily. 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 Director Merit System Utility Encounter for IUD removal and reinsertion 01/18/2015 ASCUS on Pap smear 04/15/2014 Estimated Date of Delivery Comments Yes 04/11/2021 Based on Ultrasound, FHT: 127, Transverse Presentation, Placen ta Too early to evaulate documented as of this encounter (statuses as of 09/10/2020) Resolved Problems Problem Noted Date Resolved Date 37 weeks gestation of 12/18/2018 01/08/20 19 [place] Hick's contraction 12/12/2018 01/08/2019 Abnormal maternal glucose [...] management 01/25/2015 05/20/2018 Overview: ICD10 Diagnosis Term Director Merit System Utility Breast tenderness in female 01/25/2015 05/20/2018 Not immune to rubella 04/16/2014 06/04/2016 Overview: ICD10 Diagnosis Term Director Merit System Utility documented as of this encounter (statuses as of 09/10/2020) Immunizations Name Administration Dates Next Due HPV9 06/04/2016 MMR 12/20/2018 (Deferred: - not available f [facility]) TDAP 04/06/2015 TDAP (ADACEL) [...] SW, patient needed transport home. provided Voucher #[id number] for [employer] . Roseann Bowens LMSW Tar Distributor Operator Care Management C: [phone] O: [phone] [email or web address] Poonam Solomon MD - 09/10/2020 4:00 PM CDTR1 CASTLE CALL PROGRESS NOTE Suraj Fuentes [id number] 09/10/2020, 4:00 PM Notified by RN that patient is now tolerating a regular diet. Pt previously on oral antiemetics and adamantly desires to be d/c at this time. Will d/c with home medications. Precautions given, f/u withregular PNV. Discussed with Dr. Eller. Poonam Solomon MD INSPECTOR TESTER SORTER PGY-1 09/10/20 documented in this encounter H&P [...] Manny Gray; Location: Labor and Delivery - [place] Past Medical History: Diagnosis Date Abnormal maternal [...] 09/10/20 0632 Allergies and drug reactions: Ibuprofen, [place], and Sodium citrate (bulk) HOME MEDICATIONS Prescriptions [...] for 42 days. 120 tablet 1 vit 52-mbuj-ywjol-dha (SELECT-OB + DHA) 29 mg iron-1 mg [...] Date/Time GLUF 68 (L) 12/12/2018 07:47 AM [id number] 124 08/03/2020 02:17 PM GLU3H 108 12/12/2018 [...] presentation at 37w - Documented LTCS at [facility] - Desires possible Hx PTD - G1 at 34w - G2 at 36w COVID-19 SCREEN: Lab Results Component Value Date/Time COVID19 Not Detected 09/10/2020 02:30 AM Antepartum course reviewed - early 1 h 124, sero negative, Rnot immune, VZVequiv, A positive/IAT negative, GBS unk, Pap ASCUS 11/27/17 - H/H, plt: 13.9 / 39.3, 180 [facility] Presentation on admission: variable - too early to eval placenta - FHT 154 bpm DISPO: Admit for IV antiemetics in the setting of hyperemesis. PO challenge in AM D/w Dr. Mason. Destinee Wiseman MD PGY-2 INSPECTOR TESTER SORTER Personal Pager: [phone] 09/10/20 1:51 AM Associated attestation - Karlie Brown MD - 09/10/2020 11:01 AM CDTI personally examined the patient on 09/10/[address] Wiseman's resident note as written. I actively participated in the decision-making process. Please see the resident's note for additional details. documented in this encounter Consult Notes Destinee Wiseman MD - 09/10/2020 12:20 AM CDTAssociated Order(s): CONSULT INSPECTOR TESTER SORTER TRIAGE/L&D HISTORY & PHYSICAL IDENTIFYING DATA Suraj [...] Manny Gray; Location: Labor and Delivery - [place] Past Medical History: Diagnosis Date Abnormal maternal [...] 09/10/20 0632 Allergies and drug reactions: Ibuprofen, [place], and Sodium citrate (bulk) HOME MEDICATIONS Medications [...] for 42 days. 120 tablet 1 vit 25-jwup-aggvx-dha (SELECT-OB + DHA) 29 mg iron-1 mg [...] able to tolerate lifting bed without pain. Morirs sign negative on BSUS. Extremities: no clubbing, [...] Date/Time GLUF 68 (L) 12/12/2018 07:47 AM [id number] 124 08/03/2020 02:17 PM GLU3H 108 12/12/2018 [...] presentation at 37w - Documented LTCS at [facility] - Desires possible Hx PTD - G1 at 34w - G2 at 36w COVID-19 SCREEN: Lab Results Component Value Date/Time COVID19 Not Detected 09/10/2020 02:30 AM Antepartum course reviewed - early 1 h 124, sero negative, Rnot immune, VZVequiv, A positive/IAT negative, GBS unk, Pap ASCUS 11/27/17 - H/H, plt: 13.9 / 39.3, 180 on 09/09/20 - [facility] Fetus - Presentation on admission: variable [...] Carpio MD - 09/09/2020 7:[address] [facility] Emergency Department Note Patient Name: Suraj Fuentes Date of : 1990 29 year old female Treatment Room: 119/119 Primary Care Physician: Cornelius Fernandez Patient Escorted by: Self [9] Mode of Arrival: Personal means [1] EMS Treatment Prior to ED Arrival: HOUSING QUALITY STANDARD INSPECTOR treatment: IVF;Other (comment) HOUSING QUALITY STANDARD INSPECTOR treatment comments: Per patient she was seen [...] or recent trauma History provided by: Patient select banker used: No Past Medical History/Immunizations: Past Medical History: Diagnosis Date Abnormal maternal glucose tolerance, antepartum 12/11/2018 Resolved per pt report Anxiety Resolved per pt report Anxiety and depression resolved Mental disorder Ovarian cyst recently found out of dx. Tetanus received in last 5 years: Unknown Childhood immunizations: Up-to-date Allergies: Allergies Allergen Reactions Ibuprofen Hives [place] Hives Sodium Citrate (Bulk) Nausea and/or Vomiting [...] Manny Gray; Location: Labor and Delivery - [place] Review of Systems: Review of Systems Constitutional: [...] Doppler ultrasound of the right upper quadrant. Wood Machinist images were obtained for the record. COMPARISON: [...] Calculation () 222.3 mL/min/1.73m2 HEPATIC FUNCTION PANEL (27938) (ALB,T.PRO,BILI T,BU/BC,ALT,AST,ALK PHOS) Collection Time: 09/09/20 8:03 [...] GLUCOSE, BUN, CREATININE, CA) HEPATIC FUNCTION PANEL (82836) (ALB,T.PRO,BILI T,BU/BC,ALT,AST,ALK PHOS) LIPASE URINALYSIS CONSULT INSPECTOR TESTER SORTER Orders Placed This Encounter Medications NaCl 0.9% [...] and antiemetics with minimal improvement in pain. Center Consultant consulted. MDM: MDM Reviewed: nursing note and vitals Interpretation: labs and ultrasound Consults: INSPECTOR TESTER SORTER Scoring Tools: No data recorded Diagnosis/Impression: ICD-10-CM [...] 2 tablets by mouth at bedtime. VIT 13-RBHG-OGZIS-DHA (SELECT-OB + DHA) 29 MG IRON-1 MG [...] RN - 09/10/2020 4:00 AM CDTPt to [facility] at this time via [facility] transport in stretcher. Respirations even and unlabored, AAOx4, NAD noted. D Nurse Note - Merna Ramos RN - 09/10/2020 3:37 AM CDTIce chips provided PO per patient request. D Nurse Note - Ada Bush RN - 09/10/2020 3:20 AM CDTPatient report called to recieving ALFONZO Jerome on floor [address] Patient updated on plan of care and verbalizes understanding. Patients VSS, RR even and unlabored, and NAD noted. [facility] tele track requested, awaiting transport to [facility]. D Nurse Note - Kristi Francis RN - 09/10/2020 3:17 AM CDTTransport requested D Nurse Note - Ada Bush RN - 09/10/2020 3:13 AM CDTRn returned call and states that patient is going to [facility]-1 D Nurse Note - Ada Bush RN - 09/10/2020 3:09 AM CDTAttempted to call report. Per RN on Chevy Carpenter, they are attempting to get a bed assigned in antepartum. visiting professor states she is speaking with CN on [...] me know when. D Nurse Note - Aad Bush RN - 09/09/2020 9:00 PM CDTPatient [...] by 2 visitors. Patient connected to bedside telemetry monitor. D Nurse Note - Ada Bush RN - 09/09/2020 7:44 PM CDTPatient to room from triage documented in this encounter Plan of Treatment Date Type Specialty Care Team Description 10/06/2020 Routine Visit OB Satellites Lauren Fernandez, CORRECTIVE THERAPY AIDE TEACHER [address] [address] 15 [phone] Name Type Priority Associated Diagnoses Date/Ti me [...] PANEL LAB Routine ONCE f or 1 (08819) Occurrences sta rting 09/10/2020 unti l 09/10/2020 [...] Nausea and vomiting, Results for this PANEL (43857) PM CDT intractability of procedure are in [...] SARS-CoV-2 Rapid ID Not Detected Not Detected [facility] SERVICES Specimen Swab - NASOPHARYNGEAL SWAB Narrative Performed At ID NOW COVID-19 Assay is an isothermal nucleic acid [facility] amplification test intended for the qualitative detect ion of nucleic acid from SARS-CoV-2 viral RNA in nasopharynge al (RANGE MECHANIC) specimens. It is used under Emergency Use [...] testing if clinically indicated. Performing Organization Address [facility] Phone Number [facility] CLIA: [id number] [place] [address] [place] [address] URINALYSIS (09/09/2020 11:55 PM CDT) Pathologist Sig nature APPEARANCE Clear Clear [facility] COLOR Yellow Yellow [facility] PH 7.0 4.8 - 8.0 [facility] SP GRAVITY 1.015 1.003 - 1.030 [facility] GLU U QUAL 50 mg/dL (A) Normal [facility] BLOOD Negative Negative [facility] KETONES 80 mg/dL (A) Negative [facility] PROTEIN Negative Negative [facility] UROBILIN Normal Normal [facility] BILIRUBIN Negative Negative [facility] NITRITE Negative Negative [facility] LEUK HO Negative Negative [facility] RBC/HPF 1 0 - [address] [facility] WBC/HPF 2 0 - [address] [facility] BACTERIA Negative Negative [facility] MUCOUS Slight (A) Negative LPF [facility] SQ EPITH 5 (H) <=[address] [facility] Specimen Urine - URINE, CLEAN CATCH Performing Organization Address [facility] Phone Number [facility] CLIA: [id number] [place] [address] [place] [address] US ABDOMEN LIMITED (09/09/2020 9:45 PM CDT) [...] er ultrasound of the right upper quadrant. Wood Machinist images were obt ained for the record. [...] er ultrasound of the right upper quadrant. Wood Machinist images were obt ained for the record. [...] LIPASE 356 (H) 0 - 220 U/L [facility] Specimen Blood - VENOUS Performing Organization Address [facility]/Zipcode Phone Number [facility] CLIA: [id number] [place], [place] [address] [address] [place] [address] HEPATIC FUNCTION PANEL ([id number]) (ALB,T.PRO,BILI T,BU/BC,ALT,AST,ALK PHOS) (09/09/2020 8:03 PM CDT) Pathologist Sig nature TOTAL BILI 0.8 0.1 - 1.1 mg/dL [facility] BILI UNCON 0.9 0.1 - 1.1 mg/dL [facility] BILI CONJ 0.0 0.0 - 0.3 mg/dL [facility] T PROTEIN 6.8 6.3 - 8.2 g/dL [facility] ALBUMIN 4.1 3.5 - 5.0 g/dL [facility] ALK PHOS 49 34 - 122 U/L [facility] ALTv 52 (H) 5 - 35 U/L [facility] AST(SGOT) 43 (H) 13 - 40 U/L [facility] Specimen Blood - VENOUS Performing Organization Address [facility]/Zipcode Phone Number [facility] CLIA: [id number] [place], [place] [id number] [address] [place] [address] BASIC METABOLIC PANEL (NA, K, CL, CO2, GLUCOSE, BUN, CREATININE, CA) (09/09/2020 8:03 PM CDT) NA 135 135 - 145 [facility] mmol/L SERVICES K 4.2Comment: 3.5 - 5.0 [facility] Slight hemolysis mmol/L SERVICES CL 103 98 - 108 [facility] mmol/L SERVICES CO2 TOTAL 21 (L) 23 - 31 [facility] mmol/L SERVICES AGAP 11 2 - 16 [facility] SERVICES BUN 2 (L)Comment: 7 - 23 mg/dL [facility] Slight hemolysis SERVICES GLUCOSE 90 70 - 110 [facility] mg/dL SERVICES CREATININE 0.41 (L) 0.50 - 1.04 [facility] mg/dL SERVICES CALCIUM 9.1 8.6 - 10.6 [facility] mg/dL SERVICES eGFR Calculation 183.4 mL/min/1.73m2 [facility] (Non- SERVICES [place]) eGFR Calculation 222.3 mL/min/1.73m2 [facility] () SERVICES Specimen Blood - VENOUS Narrative Performed At Association of Glomerular Filtration Rate (GFR) and St aging [facility] SERVICES of Kidney Disease* + + +------- ------ + | GFR (mL/min/1.73 m2) | With Kidney Damage | [facility] Kidney Damage + + +------- ------ [...] . Performing Organization Address City/State/Zipcode Phone Number [facility] CLIA: [id number] [place] [address] [place] [address] CBC WITH DIFF (09/09/2020 8:03 PM CDT) Pathologist Sig nature WBC 8.85 4.30 - 11.10 [facility] 10*3/L SERVICES RBC 4.48 3.93 - 5.25 [facility] 10*6/L SERVICES HGB 13.9 11.6 - 15.0 [facility] g/dL SERVICES HCT 39.3 35.7 [...] VENOUS Performing Organization Address City/State/Zipcode Phone Number [facility] CLIA: [id number] [place] [address] [place] [address] documented in this encounter Visit Diagnoses Diagnosis [...] Address T e Group Dates ASIA BETANCOURT [id number] 2018-Anupama [place] Medic [place] [phone] MANAGED MEDICAID [place] documented as of this encounter Advance Directives Type Date Recorded Patient Wood Machinist Explanati on Advance Directives and Living Will Power of Certified Professional Controller Name Relationship Healthcare Agent Relationship Co mmunication Floyd Holloway Health Care Agent (Work) Preet Coffey Other Health Care Agent (Work) [place] Nicolegamal Spouse First [facility] Agent (Mobile) "
[2020-09-13] MEDS ORDERED: NA CHLORIDE 0.9% 1,000 ML ONE (14:00)
[2020-09-13] MEDS ORDERED: SCOPOLAMINE HYDROBROMIDE PATCH TD ONE (14:00)
[2020-09-13] MEDS ORDERED: PANTOPRAZOLE 40MG TABLET PO ONE ×2 (14:00→14:17)
[2020-09-13] MEDS ORDERED: ONDANSETRON 4 MG/2 ML VIAL ONE ×2 (14:00→15:04)
[2020-09-13] MEDS ORDERED: MAGNES/ALUMIN/SIMET 30ML UCUP ONE (14:17)
[2020-09-13] MEDS ORDERED: LIDOCAINE VISCOUS 2% SOLN 15 ML UDC ONE (14:17)
[2020-09-13 14:18] LABS: Absolute Lymphocytes (CBC) 1.6 K/uL (0.7-4.9); Basophils % 0.5 % (0-1.3); Hematocrit 41.8 % (36.0-45.0); Lymphocytes % 20.2 % (15.3-44.8); MPV 8.3 fL (7.6-11.3); RBC Red Blood Cell Count 4.79 M/uL (3.86-4.86)
[2020-09-13 14:37] LABS: BUN Blood Urea Nitrogen 4 mg/dL (7-18); Bicarbonate 22 mmol/L (21-32); Glucose Level 86 mg/dL (74-106); Sodium Level 135 mmol/L (136-145)
[2020-09-13 14:38] LABS: Potassium 3.7 mmol/L (3.5-5.1)
--- NOTE | 2020-09-13 15:24 | EDPHYS ---
Physician Documentation [facility] Name: Suraj Fuentes Age: 29 yrs Sex: Female : 1990 Arrival Date: 09/13/2020 Time: 11:47 Bed 8 Private MD: ED Physician Sharath Rod HPI: 09/13 19:14 This 29 yrs old Female presents to ER via Wheelchair with complaints of kdr Nausea/Vomiting. 19:14 The patient presents to the emergency department with nausea, that is severe, vomiting, kdr that is intermittent, described as clear fluid, abdominal pain, of the abdomen diffusely, described as achy, crampy, and does not radiate. Onset: The symptoms/episode began/occurred at an unknown time. This is an ongoing problem for the past few weeks - she has had multiple ED visits for the same issue. Possible causes: . The symptoms are aggravated by nothing. The symptoms are alleviated by nothing. Associated signs and symptoms: Pertinent positives: abdominal pain, nausea, vomiting, Pertinent negatives: anorexia, belching, constipation, diarrhea, dysuria, fever, GI bleeding, hematuria, vaginal discharge. Severity of symptoms: At their worst the symptoms were moderate severe incapacitating just prior to arrival, in the emergency department the symptoms are unchanged. The patient has experienced similar episodes in the past, chronically. The patient has been recently seen by a physician: The patient has been recently seen at the [facility] Emergency Department, yesterday. Historical: - Allergies: 11:59 Ibuprofen; ll1 11:59 ORANGES; ll1 - PMHx: 11:59 hyperemesis gravidum; Pancreatitis; ll1 - PSHx: 11:59 Appendectomy; ; ll1 - Immunization history:: Flu vaccine is not up to date. - Social history:: Smoking status: Patient reports the use of cigarette tobacco products. ROS: 19:14 Constitutional: Negative for fever, chills, and weight loss, Eyes: Negative for injury, kdr pain, redness, and discharge, ENT: Negative for injury, pain, and discharge, Neck: Negative for injury, pain, and swelling, Cardiovascular: Negative for chest pain, palpitations, and edema, Respiratory: Negative for shortness of breath, cough, wheezing, and pleuritic chest pain, Back: Negative for injury and pain, : Negative for injury, bleeding, discharge, and swelling, MS/Extremity: Negative for injury and deformity, Skin: Negative for injury, rash, and discoloration, Neuro: Negative for headache, weakness, numbness, tingling, and seizure activity. Psych: Negative for depression, anxiety, suicide ideation, homicidal ideation, and hallucinations, Allergy/Immunology: Negative for hives, rash, and allergies, Endocrine: Negative for neck swelling, polydipsia, polyuria, polyphagia, and marked weight changes, Hematologic/Lymphatic: Negative for swollen nodes, abnormal bleeding, and unusual bruising. 19:14 Abdomen/GI: Positive for nausea and vomiting, abdominal cramps, Negative for constipation, abdominal distension, anorexia, dysphagia, hematemesis, black/tarry stool, rectal pain, rectal bleeding, bowel incontinence. Exam: 19:14 Constitutional: This is a well developed, well nourished patient who is awake, alert, kdr and in no acute distress. Head/Face: Normocephalic, atraumatic. Eyes: Pupils equal round and reactive to light, extra-ocular motions intact. Lids and lashes normal. Conjunctiva and sclera are non-icteric and not injected. Cornea within normal limits. Periorbital areas with no swelling, redness, or edema. Neck: Trachea midline, no thyromegaly or masses palpated, and no cervical lymphadenopathy. Supple, full range of motion without nuchal rigidity, or vertebral point tenderness. No Meningismus. Chest/axilla: Normal chest wall appearance and motion. Nontender with no deformity. No lesions are appreciated. Cardiovascular: Regular rate and rhythm with a normal S1 and S2. No gallops, murmurs, or rubs. Normal PMI, no JVD. No pulse deficits. Respiratory: Lungs have equal breath sounds bilaterally, clear to auscultation and percussion. No rales, rhonchi or wheezes noted. No increased work of breathing, no retractions or nasal flaring. Back: No spinal tenderness. No costovertebral tenderness. Full range of motion. Skin: Warm, dry with normal turgor. Normal color with no rashes, no lesions, and no evidence of cellulitis. MS/ Extremity: Pulses equal, no cyanosis. Neurovascular intact. Full, normal range of motion. Neuro: Awake and alert, GCS 15, oriented to person, place, time, and situation. Cranial nerves II-XII grossly intact. Motor strength 5/5 in all extremities. Sensory grossly intact. Cerebellar exam normal. Normal gait. Psych: Awake, alert, with orientation to person, place and time. Behavior, mood, and affect are within normal limits. 19:14 Abdomen/GI: Inspection: abdomen appears normal, Bowel sounds: diminished, in all quadrants, Palpation: soft, mild abdominal tenderness, in all quadrants. Vital Signs: 11:57 BP 131 / 82; Pulse 86; Resp 17; Temp 98.3; Pulse Ox 97% ; Weight 81.19 kg; Height 5 ft. ll1 4 in. (162.56 cm); Pain 10/10; 11:57 Body Mass Index 30.72 (81.19 kg, 162.56 cm) ll1 MDM: 15:23 Patient medically screened. kdr 19:14 Data reviewed: vital signs, nurses notes. Counseling: I had a detailed discussion with kdr the patient and/or guardian regarding: the historical points, exam findings, and any diagnostic results supporting the discharge/admit diagnosis, the need for outpatient follow up. 09/13 13:59 Order name: CBC with Diff; Complete Time: 14:48 sv 09/13 13:59 Order name: Basic Metabolic Panel; Complete Time: 14:48 sv 09/13 14:00 Order name: IV Start; Complete Time: 14:00 sv 09/13 14:00 Order name: Labs collected and sent; Complete Time: 14:00 sv 09/13 14:04 Order name: PO challenge: 30 minutes after GI cocktail; Complete Time: 14:53 kdr Administered Medications: 14:00 Drug: Zofran (Ondansetron) 4 mg Route: IVP; Site: right forearm; sv 14:12 Follow up: Response: No adverse reaction sv 14:00 Drug: NS 0.9% 1000 ml Route: IV; Rate: 1000 ml; Site: right forearm; sv 15:10 Follow up: Response: No adverse reaction; IV Status: Completed infusion; IV Intake: sv 1000ml 14:12 Drug: Transderm-Scop 1 patches Route: Transdermal; Site: affected area; sv 14:12 Drug: GI Cocktail without - (Maalox Suspension 30 ml, Lidocaine Liquid 2 % 15 sv ml) Route: PO; 14:45 Follow up: Response: No adverse reaction; Marked relief of symptoms sv 14:45 Drug: ProTONIX 40 mg Route: PO; sv 15:33 Follow up: Response: No adverse reaction sv 14:53 CANCELLED (Physician Discretion; order to be changed to Protonix per pharmacy sv interchange): NexIUM 40 mg PO once 14:54 Drug: Zofran (Ondansetron) 4 mg Route: IVP; Site: right forearm; sv 15:32 Follow up: Response: No adverse reaction; Marked relief of symptoms; Nausea is decreasedsv Disposition: 09/13/20 15:23 Discharged to Home. Impression: Mild hyperemesis gravidarum. - Condition is Stable. - Discharge Instructions: Hyperemesis Gravidarum. - Prescriptions for Nexium 20 mg Oral capsule,delayed release(DR/EC) - take 1 capsule by ORAL route once daily for 10 days swallowing whole. Do not crush or chew granules.; 20 capsule. Transderm- Scop 1.5 mg Transdermal Patch 72 hr - apply 1 patch by TRANSDERMAL route every 3 days (apply patch behind the ear). Remove old patch when applying a new one.; 4 Each. Zofran 4 mg Oral Tablet - take 1 tablet by ORAL route every 4-6 hours As needed; 16 tablet. - Medication Reconciliation Form, Thank You Letter, Antibiotic Education, Prescription Opioid Use form. - Follow up: Private Physician; When: 2 - 3 days; Reason: If symptoms return, Further diagnostic work-up, Recheck today's complaints, Continuance of care, Re-evaluation by your physician. Follow up: Michael Carson MD; When: 2 - 3 days; Reason: If symptoms return, Further diagnostic work-up, Recheck today's complaints, Continuance of care, Re-evaluation by your physician. - Problem is an acute exacerbation. - Symptoms have improved. Signatures: Dispatcher [employer] Brittney Nichols RN RN sv Sharath Rod MD MD kdr Lewis, Lynsay, RN RN ll1 Corrections: (The following items were deleted from the chart) 14:53 13:41 NexIUM Delayed Release Capsule 40 mg PO once ordered. kdr sv 14:53 14:53 NexIUM Delayed Release Capsule 40 mg PO once ordered. sv sv 15:35 15:23 09/13/2020 15:23 Discharged to Home. Impression: Mild hyperemesis gravidarum. sv Condition is Stable. Forms are Medication Reconciliation Form, Thank You Letter, Antibiotic Education, Prescription Opioid Use. Follow up: Private Physician; When: 2 - 3 days; Reason: If symptoms return, Further diagnostic work-up, Recheck today's complaints, Continuance of care, Re-evaluation by your physician. Follow up: Michael Carson; When: 2 - 3 days; Reason: If symptoms return, Further diagnostic work-up, Recheck today's complaints, Continuance of care, Re-evaluation by your physician. Problem is an acute exacerbation. Symptoms have improved. kdr
--- NOTE | 2020-09-13 15:24 | ER ---
Nurse's Notes [facility] Name: Suraj Fuentes Age: 29 yrs Sex: Female : 1990 Arrival Date: 09/13/2020 Time: 11:47 Bed 8 Private MD: Diagnosis: Mild hyperemesis gravidarum Presentation: 09/13 11:57 Chief complaint: Patient states: Abdominal pain with N/V continues since visit here ll1 yesterday. About 10 weeks . Coronavirus screen: Client denies travel out of the [place] in the last 14 days. At this time, the client does not indicate any symptoms associated with coronavirus-19. Ebola Screen: Patient denies travel to an Ebola-affected area in the 21 days before illness onset. Initial Sepsis Screen: Does the patient meet any 2 criteria? No. Patient's initial sepsis screen is negative. Does the patient have a suspected source of infection? Yes: Acute abdominal pain. Risk Assessment: Do you want to hurt yourself or someone else? Patient reports no desire to harm self or others. Onset of symptoms was July 26, 2020. 11:57 Method Of Arrival: Wheelchair ll1 11:57 Acuity: SHAW 3 ll1 Historical: - Allergies: 11:59 Ibuprofen; ll1 11:59 ORANGES; ll1 - PMHx: 11:59 hyperemesis gravidum; Pancreatitis; ll1 - PSHx: 11:59 Appendectomy; ; ll1 - Immunization history:: Flu vaccine is not up to date. - Social history:: Smoking status: Patient reports the use of cigarette tobacco products. Screenin:41 Abuse screen: Denies threats or abuse. Denies injuries from another. Nutritional sv screening: No deficits noted. Tuberculosis screening: No symptoms or risk factors identified. Fall Risk None identified. Assessment: 12:30 General: Appears in no apparent distress. uncomfortable, well developed, Behavior is sv cooperative, appropriate for age, restless. Pain: Complains of pain in abdomen Pain currently is 10 out of 10 on a pain scale. Neuro: Level of Consciousness is awake, alert, obeys commands, Oriented to person, place, time, situation, Moves all extremities. Full function Gait is steady. Respiratory: Respiratory effort is even, unlabored, Respiratory pattern is regular, symmetrical. GI: Abdomen is round Reports lower abdominal pain, intolerance of food, nausea, vomiting. Derm: Skin is pink, warm \T\ dry. 13:55 Reassessment: Patient appears in no apparent distress at this time. No changes from sv previously documented assessment. Patient and/or family updated on plan of care and expected duration. Pain level reassessed. Patient is alert, oriented x 3, equal unlabored respirations, skin warm/dry/pink. 14:45 Reassessment: Patient appears in no apparent distress at this time. Patient and/or sv family updated on plan of care and expected duration. Pain level reassessed. Patient is alert, oriented x 3, equal unlabored respirations, skin warm/dry/pink. Pt able to tolerate drink a sip of sprite soda with her Protonix PO. Patient states symptoms have improved. 15:10 Reassessment: Patient appears in no apparent distress at this time. Patient and/or sv family updated on plan of care and expected duration. Pain level reassessed. Patient is alert, oriented x 3, equal unlabored respirations, skin warm/dry/pink. Patient states feeling better. Patient states symptoms have improved. 15:34 Reassessment: Patient appears in no apparent distress at this time. Patient and/or sv family updated on plan of care and expected duration. Pain level reassessed. Patient is alert, oriented x 3, equal unlabored respirations, skin warm/dry/pink. Patient states feeling better. Patient states symptoms have improved. Vital Signs: 11:57 BP 131 / 82; Pulse 86; Resp 17; Temp 98.3; Pulse Ox 97% ; Weight 81.19 kg; Height 5 ft. ll1 4 in. (162.56 cm); Pain 10/10; 11:57 Body Mass Index 30.72 (81.19 kg, 162.56 cm) ll1 ED Course: 11:47 Patient arrived in ED. ds1 11:59 Triage completed. ll1 11:59 Arm band placed on. ll1 12:28 Brittney Andino RN is Primary Nurse. sv 12:30 Awaiting ED provider evaluation. sv 12:33 Sharath Rod MD is Attending Physician. kdr 12:41 Awaiting ED provider evaluation. sv 12:41 Patient has correct armband on for positive identification. Bed in low position. Call sv light in reach. 13:11 Awaiting ED provider evaluation. sv 13:26 Awaiting ED provider evaluation. sv 13:48 ED physician to see patient. sv 13:55 Inserted saline lock: 22 gauge in right forearm, using aseptic technique. ,using sv aseptic technique. diffusics Blood collected. Flushed right forearm with 5 ml normal saline. 15:23 Michael Carson MD is Referral Physician. kdr 15:34 No provider procedures requiring assistance completed. IV discontinued, intact, sv bleeding controlled, No redness/swelling at site. Pressure dressing applied. Administered Medications: 14:00 Drug: Zofran (Ondansetron) 4 mg Route: IVP; Site: right forearm; sv 14:12 Follow up: Response: No adverse reaction sv 14:00 Drug: NS 0.9% 1000 ml Route: IV; Rate: 1000 ml; Site: right forearm; sv 15:10 Follow up: Response: No adverse reaction; IV Status: Completed infusion; IV Intake: sv 1000ml 14:12 Drug: Transderm-Scop 1 patches Route: Transdermal; Site: affected area; sv 14:12 Drug: GI Cocktail without - (Maalox Suspension 30 ml, Lidocaine Liquid 2 % 15 sv ml) Route: PO; 14:45 Follow up: Response: No adverse reaction; Marked relief of symptoms sv 14:45 Drug: ProTONIX 40 mg Route: PO; sv 15:33 Follow up: Response: No adverse reaction sv 14:53 CANCELLED (Physician Discretion; order to be changed to Protonix per pharmacy sv interchange): NexIUM 40 mg PO once 14:54 Drug: Zofran (Ondansetron) 4 mg Route: IVP; Site: right forearm; sv 15:32 Follow up: Response: No adverse reaction; Marked relief of symptoms; Nausea is decreasedsv Intake: 15:10 IV: 1000ml; Total: 1000ml. sv Outcome: 15:23 Discharge ordered by . kdr 15:34 Discharged to home ambulatory, with family. sv 15:34 Condition: good 15:34 Discharge instructions given to patient, family, Instructed on discharge instructions, follow up and referral plans. medication usage, getting anne candies, small sips of clear sodas, making sure to have saltine crackers at the bedside. Demonstrated understanding of instructions, follow-up care, medications, Prescriptions given X 3. 15:35 Patient left the ED. sv Signatures: Brittney Andino, RN RN sv Sharath Rod MD MD [facility] Natalia Lizarraga ds1 Bill Hudson RN RN ll1
[2020-09-13 16:27] VITALS: BP 131/82; TEMP 98.3; O2SAT 97
== END 2020-09-13 15:35 | disposition home or self-care (01) ==
LOC: ER 11:46
DX: O21.0 Mild hyperemesis gravidarum (principal); O99.331 Smoking (tobacco) complicating pregnancy, first trimester; F17.210 Nicotine dependence, cigarettes, uncomplicated; Z3A.10 10 weeks gestation of pregnancy; Z88.6 Allergy status to analgesic agent; Z91.018 Allergy to other foods
CPT/HCPCS: 96361; 85025; 80048; 36415; 96374; 99284; J7030; J2405 ×2

== ENCOUNTER 2020-09-17 16:38 | Emergency (ER) | payer MEDICAID ==
--- OUTSIDE RECORDS SUMMARY | 2020-09-17 16:40 | XMS REPORT | Continuity of Care Document ---
:1990 Author Organization [facility] t Address [address] [place] [address] Care Team Providers Name Role Phone Shirin [...] Type Clinicians Facility Department ID 2020-09-09 2020-09-10 [facility] Marcelo Carpio [id number] 19:39:00 16:45:00 Encounter Karlie Brown [id number] [facility] [id number] 2020-09-09 2020-09-09 Telephone AMBAR Burks [id number] 00:00:00 00:00:00 Graciela C [employer] [employer] [id number] [facility] [id number] MATERNAL [id number] & CHILD 107 [facility] 2020-09-09 2020-09-09 [facility] [id number] 00:00:00 00:00:00 Roshunda R [employer]ER[employer] [id number] REGIONAL [id number] MATERNAL [id number] & CHILD 107 [facility] 2020-09-08 2020-09-08 [facility] [id number] 10:23:36 11:14:26 Roshunda R [employer]ERIFF [id number] Visit REGIONAL [id number] MATERNAL [id number] & CHILD 107 [facility] 2020-09-08 2020-09-08 [facility] [id number] 00:00:00 00:00:00 Roshunda R [employer] [id number] REGIONAL [id number] MATERNAL [id number] & CHILD 107 [facility] 2020-09-07 2020-09-07 [facility] [id number] 00:00:00 00:00:00 Roshunda R [employer] [id number] REGIONAL [id number] MATERNAL [id number] & CHILD 107 [facility] Results This patient has no known results.
--- OUTSIDE RECORDS SUMMARY | 2020-09-17 16:43 | XMS REPORT | Summary of Care ---
:1990 Author Organization [facility] - Health Address [address] [place] [id number] Care Team Providers Name Role Phone Gamal Saravia Insurance Hmo Lauren Fernandez Primary Care Provider Reason for Referral (Routine) Status Reason Specialty Diagnoses / Referred By Referred To Procedures Contact Contact New Request [facility]G-OBSTETRICS & Diagnoses Nausea and vomiting during Aufderheide, Leann GYNECOLOGY Procedures Discharge Follow-Up: Specialty Service [facility]G-OBSTETRICS & GYNECOLOGY; 3-5 Days MD Merna [address] [place] [address]. [place] [address] Reason for Visit Reason Comments Abdominal Pain Vomiting Auth/Cert Status Reason Specialty Diagnoses / Referred By Referred To Procedures Contact Contact Emergency Medicine [facility] rgency Dept [address] [place] [phone] Fax: Encounter Details Date Type Department Care Team Description 08/28/2020 - Emergency [facility] Monika Allen MD [address] [place] [phone] Abdominal pain during in first trimester (Primary Dx); 08/29/2020 Department Anthonyerjessi, Leann Bauman MD [address] [place] [phone] Nausea and vomiting during [address] [place] [phone] Allergies Active Allergy Reactions Severity Noted Date Comments Ibuprofen Hives 04/15/2014 [place] Hives 04/15/2014 Sodium Citrate (Bulk) Nausea and/or Vomiting 9 documented as of this encounter (statuses as of 08/29/2020) Medications Medication Sig Dispensed Refills Start Date End Date Status ondansetron HCl Take by mouth. 0 Active (ZOFRAN ORAL) vit Take 1 Packet by 30 Each 6 08/03/2020 Active 79-hblm-ubwlh-dha mouth daily. 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 Executive Receptionist Utility Encounter for IUD removal and reinsertion [...] management 01/25/2015 05/20/2018 Overview: ICD10 Diagnosis Term Executive Receptionist Utility Breast tenderness in female 01/25/2015 05/20/2018 Not immune to rubella 04/16/2014 06/04/2016 Overview: ICD10 Diagnosis Term Executive Receptionist Utility documented as of this encounter (statuses [...] IF YOU WISH TO FOLLOW-UP WITHIN THE [facility], MAY TRY THESE OPTIONS (CLINIC APPOINTMENTS AVAILABLE ON ZNLC-UI-MSSB BASIS): 1. SCHEDULE AN APPOINTMENT ONLINE AT [email or web address] 2. OR CALL THE [facility] AT OR 3. OR CALL YOUR [facility] PHYSICIAN'S OFFICE DIRECTLY IF YOU ARE ALREADY AN ESTABLISHED [facility] PATIENT. RETURN TO ER FOR WORSENING OF SYMPTOMS. AttachmentsThe following attachments cannot be sent through Care Everywhere. : Your First Trimester Changes (Romansh)Severe Morning Sickness (Hyperemesis Gravidarum) (Romansh)documented in this encounter ED Notes Arsalan Salazar [...] site, catheter intact. [facility] accompanied by visitors x2, in possession [...] - 08/28/2020 11:47 PM CDT[facility] - Ada Bush [...] cough, SOB. . Patient was seen in [place] for same complaint, patient's s/o states "they [...] 08/31/2020 Routine Visit OB Satellites Lauren Fernandez, CHAIR FINISHER [address] [address] [phone] Health Maintenance Due Date Last Done Comments [...] Abdominal pain Re sults for this PANEL (34367) CD[facility] (ALB,T.PRO,BILI first trimester the resul ts T,BU/BC,ALT,AST,ALK section. PHOS) documented in this encounter Results Urinalysis (08/29/2020 12:26 AM CDT) Pathologist Sig nature APPEARANCE Clear Clear [facility] COLOR Trudi (A) Yellow [facility] PH 7.0 4.8 - 8.0 [facility] SP GRAVITY 1.030 1.003 - 1.030 [facility] GLU U QUAL Normal Normal [facility] BLOOD Negative Negative [facility] KETONES 80 mg/dL (A) Negative [facility] PROTEIN 30 mg/dL (A) Negative [facility] UROBILIN 2.0 mg/dL (A) Normal [facility] BILIRUBIN Negative Negative [facility] NITRITE Negative Negative [facility] LEUK HO Negative Negative [facility] RBC/HPF 3 0 - 3 HPF [facility] WBC/HPF 3 0 - 5 HPF [facility] BACTERIA Negative Negative [facility] MUCOUS Marked (A) Negative LPF [facility] SQ EPITH 4 (H) <=2 HPF [facility] Specimen Urine - URINE, CLEAN CATCH Performing Organization Address City/State/Zipcode Phone Number [facility] CLIA: [id number] [place], [place] [address] [address] [place], [place] [address]vd TOTAL BHCG (QUANTITATIVE) (08/28/2020 10:08 PM CDT) Pathologist Sig nature BETA HCG 140,720.00 Non- female [facility] and male patients: SERVICES <5 mIU/mL Specimen Blood - VENOUS Narrative Performed At [facility] Gestational Age Rang e (mIU/mL) 1-10 Weeks 4 [phone] 11-15 Weeks 11 [phone] 16-22 Weeks 74 [phone] 23-40 Weeks 15 [phone] Biotin has been reported to cause a negative bias, int erpret results relative to patient's use of biotin. Performing Organization Address City/[facility]ode Phone Number [facility] CLIA: [id number] [place] [address] [place] [address] Hepatic Function Panel (ALB, T.PRO, BILI T, BU/BC, ALT, AST, ALK PHOS) (08/28/2020 10:08 PM CDT) Pathologist Sig nature TOTAL BILI 0.7 0.1 - 1.1 mg/dL [facility] BILI UNCON 0.9 0.1 - 1.1 mg/dL [facility] BILI CONJ 0.0 0.0 - 0.3 mg/dL [facility] T PROTEIN 6.8 6.3 - 8.2 g/dL [facility] ALBUMIN 4.1 3.5 - 5.0 g/dL [facility] ALK PHOS 56 34 - 122 U/L [facility] ALTv 21 5 - 35 U/L [facility] AST(SGOT) 20 13 - 40 U/L [facility] Specimen Blood - VENOUS Performing Organization Address City/[facility]/Zipcode Phone Number [facility] CLIA: [id number] [place] [id number] [place] [address] Basic Metabolic Panel (NA, K, CL, CO2, GLUCOSE, BUN, CREATININE, CA) (08/28/2020 10:08 PM CDT) NA 139 135 - 145 [facility] mmol/L SERVICES K 3.4 (L) 3.5 - 5.0 [facility] mmol/L SERVICES CL 108 98 - 108 mmol/L [facility] CO2 TOTAL 21 (L) 23 - 31 mmol/L [facility] AGAP 10 2 - 16 [facility] BUN 7 7 - 23 mg/dL [facility] GLUCOSE 99 70 - 110 mg/dL [facility] CREATININE 0.49 (L) 0.50 - 1.04 [facility] mg/dL SERVICES CALCIUM 9.0 8.6 - 10.6 [facility] mg/dL SERVICES eGFR Calculation 149.3 mL/min/1.73m2 [facility] (Non- SERVICES Malian) eGFR Calculation 181.0 mL/min/1.73m2 [facility] () SERVICES Specimen Blood - VENOUS Narrative Performed At Association of Glomerular Filtration Rate (GFR) and St aging [facility] SERVICES of Kidney Disease* + + [...] . Performing Organization Address City/State/Zipcode Phone Number [facility] CLIA: [id number] [place] [address] [place] [address] CBC with Differential (08/28/2020 10:08 PM CDT) Pathologist Sig nature WBC 8.57 4.30 - 11.10 [facility] 10*3/L SERVICES RBC 4.62 3.93 - 5.25 [facility] 10*6/L SERVICES HGB 14.5 11.6 - 15.0 [facility] g/dL SERVICES HCT 40.7 35.7 - 45.2 % [facility] MCV 88.1 80.6 - 95.5 fL [facility] MCH 31.4 25.9 - 32.8 pg [facility] MCHC 35.6 (H) 31.6 - 35.1 [facility] g/dL SERVICES RDW-SD 38.5 (L) 39.0 - 49.9 fL [facility] RDW-CV 12.0 12.0 - 15.5 % [facility] PLT 187 166 - 358 [facility] 10*3/L SERVICES MPV 9.8 9.5 - 12.9 fL [facility] NRBC/100 WBC 0.0 0.0 - [...] VENOUS Performing Organization Address City/State/Zipcode Phone Number [facility] CLIA: [id number] [place] [address] [place] [address] documented in this encounter Visit Diagnoses Diagnosis [...] / Subscriber ID Effective Phone Address T [facility] Group Dates ASIA BETANCOURT [id number] 2018-Anupama [employer] Medic [place] [id number] MANAGED MEDICAID [place] documented as of this encounter Advance Directives Type Date Recorded Patient Mopper Explanati on Advance Directives and Living Will 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 Care Agent (Mobile)
--- OUTSIDE RECORDS SUMMARY | 2020-09-17 16:43 | XMS REPORT | Summary of Care ---
:1990 Author Organization [facility] Address [address] [place] [address] Care Team Providers Name Role Phone Manjit E Insurance Hmo Lauren Fernandez [facility] Primary Care Provider Reason for Visit Reason Comments Assessment wanting to terminate pregnan cy Encounter Details Date Type Department Care Team Description 08/26/2020 Telephone [facility]- Cornelius Fernandez, As sessment (wanting to [facility] terminate ) [address] [facility] [address] [place] [address] [place], [place] [phone] [phone] Allergies Active Allergy Reactions Severity Noted Date Comments Ibuprofen Hives 04/15/2014 [place] Hives 04/15/2014 Sodium Citrate (Bulk) Nausea and/or Vomiting 9 documented as of this encounter (statuses as of 08/26/2020) Medications Medication Sig Dispensed Refills Start Date End Date Status ondansetron HCl Take by mouth. 0 Active (ZOFRAN ORAL) vit Take 1 Packet by 30 Each 6 08/03/2020 Active 04-pbek-ypmqa-dha mouth daily. 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 Repair Technician Utility documented as of this encounter (statuses as of 08/26/2020) Immunizations Name Administration Dates Next Due HPV9 06/04/2016 MMR 12/20/2018 (Deferred: - not available f [facility]) TDAP 04/06/2015 TDAP (ADACEL) [...] 08/31/2020 Routine Visit OB Satellites Lauren Fernandez, HELICOPTER UTILITY AIRCREWMAN [address] [address] 15 [phone] Health Maintenance Due Date Last Done Comments [...] Address T ype Group Dates ASIA BETANCOURT [id number] 2018-Anupama [address] Medic [place] [id number] [place]ED MEDICA[place] documented as of this encounter Advance Directives Type Date Recorded 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
--- OUTSIDE RECORDS SUMMARY | 2020-09-17 16:44 | XMS REPORT | Summary of Care ---
:1990 Author Organization [facility] Address [address] [place] [address] Care Team Providers Name Role Phone Gamal Saravia Insurance Hmo Lauren Fernandez SLASHER MACHINE OPERATOR Primary Care Provider Reason for Visit Reason Comments Assessment vomit Encounter Details Date Type Department Care Team Description 09/06/2020 Telephone [facility]- Cornelius Fernandez, As sessment (vomit) [facility] [address] [facility] [address] [place] [address] [place] [address] [phone] Allergies Active Allergy Reactions Severity Noted Date Comments Ibuprofen Hives 04/15/2014 [facility] [place] Hives 04/15/2014 Sodium Citrate (Bulk) Nausea and/or Vomiting 9 documented as of this encounter (statuses as of 09/06/2020) Medications Medication Sig Dispensed Refills Start Date End Date Status vit Take 1 Packet by 30 Each 6 08/03/2020 Active 36-dwqq-uiwnr-dha mouth daily. 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 Resources Support Specialist Utility Encounter for IUD removal and [...] management 01/25/2015 05/20/2018 Overview: ICD10 Diagnosis Term Human Resources Support Specialist Utility Breast tenderness in female 01/25/2015 05/20/2018 Not immune to rubella 04/16/2014 06/04/2016 Overview: ICD10 Diagnosis Term Human Resources Support Specialist Utility documented as of this encounter [...] old female Patient stated she went to [facility] 08/28/20 for N/V and has received fluids [...] has been loosing weight , please call [phone] (home) documented in this encounter Plan of Treatment Date Type Specialty Care Team Description 09/08/2020 Routine Visit OB Satellites Lauren Fernandez FNP [address] [address] [phone] Health Maintenance Due Date Last Done Comments [...] Address T e Group Dates ASIA BETANCOURT [id number] 2018-Anupama [address] Medic [place] [id number] MA[place]ED MED[place] documented as of this encounter Advance Directives Type Date Recorded 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
--- OUTSIDE RECORDS SUMMARY | 2020-09-17 16:44 | XMS REPORT | Summary of Care ---
:1990 Author Organization [facility] - [facility] Address [address] [place] [address] Care Team Providers Name Role Phone Gamal Saravia Insurance Hmo Lauren Fernandez Primary Care Provider Reason for Referral (Routine) Status Reason Specialty Diagnoses / Referred By Referred To Procedures Contact Contact New Request Diagnoses Hyperemesis gravidarum Marisel Galvan, Procedures Discharge Follow-Up: Parking Station Attendant Lorena FRANKLIN [address] [place], [place] [id number] Reason for Visit Auth/Cert Status Reason Specialty Diagnoses / Procedures Referred By Lauren marquez To Contact Contact Obstetrics Diagnoses 7wks IUP hyperemesis J10c [address] [place] [phone] Phone: Fax: Encounter Details Date Type Department Care Team Description 08/30/2020 - Hospital Encounter Obstetrics and Jad Isaacs ea and vomiting 09/01/2020 Gynecology (J10C) MD Tyler during [address] [place] [id number] [phone] Allergies Active Allergy Reactions Severity Noted Date Comments Ibuprofen Hives 04/15/2014 [place] Hives 04/15/2014 Sodium Citrate (Bulk) Nausea and/or Vomiting 9 documented as of this encounter (statuses as of 09/01/2020) Medications Medication Sig Dispensed Refills Start End Date Status Date vit Take 1 Packet by 30 Each 6 Active 21-dcbw-nqnsf-dha mouth daily. 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 Encounter for IUD removal and reinsertion 01/18/2015 ASCUS on Pap smear 04/15/2014 Estimated Date of Delivery Comments Yes 04/11/2021 Based on Ultrasound, FHT: 127, Transverse Presentation, Placen ta Too early to evaulate documented as of this encounter (statuses as of 09/01/2020) Resolved Problems Problem Noted Date Resolved Date 37 weeks gestation of 12/18/2018 01/08/20 19 [place] Hick's contraction 12/12/2018 01/08/2019 Abnormal maternal glucose [...] management 01/25/2015 05/20/2018 Overview: ICD10 Diagnosis 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 Diet, [place] (Adult) (Marshallese)documented in this encounter Progress Notes Major Velasquez [...] mL IV piggyback 25 mg IV Piggyback [id number] mg at 09/01/20 0552 pyridoxine (VITAMIN B-6) [...] 08/28/2020 21 No results found for: URICACID, [id number] No results found for: LDH Assessment/Plan: Suraj [...] tolerate PO for over 2 days - [facility] ED Course: s/p 2L NS bolus, IV 4mg zofran, 12.5 benadryl, 20mg Pepcid, 12.5 phenergan, refused second phenergan dose so given Reglan 10mg, 20mEq KCLrepletion - OSH labs remarkable for K 3.2, Cr 0.72, LFT WNL, lipase 59, Udip with 2+ ketone -Patient reports severe nausea, dry heaving noted in triage - Upon transfer to [facility], P 80s, BP 120/60s - Repeat [...] presentation at 37w - Documented LTCS at [facility] - Desires possible Hx PTD - G1 at 34w - G2 at 36w COVID-19 SCREEN: Lab Results Component Value Date/Time COVID19 Not Detected 08/30/2020 11:37 PM Antepartum course reviewed - seronegative, Rnot immune, VZVnot immune,A positive/IATnegative, GBSunk, PapASCUS 11/2017, neg HRHPV, needs repeat cotesting in 3 years - H/H, plt:14.5/ 40.7,187on 08/28/20 [facility] [id number] bpm via M mode on admission BSUS Major Velasquez MD 09/01/2020 Associated attestation - Marisel Galvan MD - 09/01/2020 10:40 AM CDT I was rounding [facility] faculty for this patient and [...] presentation at 37w - Documented LTCS at [facility] - Desires possible Hx PTD - G1 at 34w - G2 at 36w COVID-19 SCREEN: Lab Results Component Value Date/Time COVID19 Not Detected 08/30/2020 11:37 PM Antepartum course reviewed - sero negative, Rnot immune, VZVnot immune, A positive/IAT negative, GBS unk, Pap ASCUS 11/2017, negHRHPV, needs repeat cotesting in 3 years - H/H, plt: 14.5 / 40.7, 187 on 08/28/20 - [facility] - FHT 171-178 bpm via M mode on admission BSUS Major Velasquez MD - 08/31/2020 1:15 PM CDTJamiee Luly Fuentes [id number] 08/31/2020 1:15 PM Post-Rounds: - daily BMP [...] Physician: Cornelius Fernandez CHIEF COMPLAINT Transfer from [facility] ED HISTORY OF PRESENT ILLNESS Suraj Fuentes is a 29 year old at 8w0d who was transferred from [facility] ED for nausea and vomiting [...] for over 2 days. She went to [facility] ED earlier this week (3-4 days ago), then presented to [facility] ED Saturday night.She was given 1L bolus, IV zofran, IV phenergan, and reglan, PO challenged with water/crackers, thensent home with renewed eRx vitamin B6. Reports PO zofran and Reglan not helping right now, [facility]: Afebrile, Pulse 71-86, BP 110-130/60-80s [...] Manny Gray; Location: Labor and Delivery - [place] Past Medical History: Diagnosis Date Abnormal maternal [...] Oral Q6H Allergies and drug reactions: Ibuprofen, [place], and Sodium citrate (bulk) HOME MEDICATIONS Medications [...] (ZOFRAN ORAL) Take by mouth. 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 Resolved Hospital Problems No resolved problems [...] tolerate PO for over 2 days - [facility] ED Course: s/p 2L NS bolus, IV 4mg zofran, 12.5 benadryl, 20mg Pepcid, 12.5 phenergan, refused second phenergan dose so given Reglan 10mg, 20mEq KCL repletion - OSH labs remarkable for K 3.2, Cr 0.72, LFT WNL, lipase 59, Udip with 2+ ketone - Patient reports severe nausea, dry heaving noted at bedside - Upon transfer to [facility], P 80s, BP 120/60s - Repeat [...] presentation at 37w - Documented LTCS at [facility] - Desires possible Hx PTD - G1 at 34w - G2 at 36w COVID-19 SCREEN: Lab Results Component Value Date/Time COVID19 Not Detected 08/30/2020 11:37 PM Antepartum course reviewed - sero negative, Rnot immune, VZVnot immune, A positive/IAT negative, GBS unk, Pap ASCUS 11/2017, negHRHPV, needs repeat cotesting in 3 years - H/H, plt: 14.5 / 40.7, 187 on 08[facility]28/[facility] F[facility] 171-178 bpm via [...] - 08/31/2020 5:02 PM CDTFood Allergy and Cultural/Confucianism Food Preferences Consult Note: Spoke with patient's nurse today over the phone. Per nurse, patient with food allergy to oranges. Per allergy list patient with hives as reported reaction. Please see confirmed food allergy below. Confirmed Food Allergy: 1. [place] Reaction:Hives Confirmed Cultural Food Preferences: 1. None Confirmed Confucianism Food Preferences: 1. None Kary Coppola MS, RD, LD Clinical Dietitian RD Office: [phone] documented in this encounter Miscellaneous Notes Care [...] 09/08/2020 Routine Visit OB Satellites Lauren Fernandez, BUSINESS INVESTOR [address] [address] [phone] Name Type Priority Associated Diagnoses Order S [...] AM CDT) NA 135 135 - 145 [facility] mmol/L SERVICES K 3.6 3.5 - 5.0 [facility] mmol/L SERVICES CL 106 98 - 108 mmol/L [facility] CO2 TOTAL 21 (L) 23 - 31 mmol/L [facility] AGAP 8 2 - 16 [facility] BUN 3 (L) 7 - 23 mg/dL [facility] GLUCOSE 106 70 - 110 mg/dL [facility] CREATININE 0.46 (L) 0.50 - 1.04 [facility] mg/dL SERVICES CALCIUM 8.6 8.6 - 10.6 [facility] mg/dL SERVICES eGFR Calculation 160.6 mL/min/1.73m2 [facility] (Non- SERVICES Mauritian) eGFR Calculation 194.7 mL/min/1.73m2 [facility] () SERVICES Specimen Blood - VENOUS Narrative Performed At Association of Glomerular Filtration Rate (GFR) and St aging [facility] SERVICES of Kidney Disease* + [...] in imaging tests) . Performing Organization Address City/[facility] Phone Number [facility] CLIA: [id number] [place], [place] [address] [address] [place] [address] URINALYSIS (08/31/2020 4:07 PM CDT) Pathologist Sig [...] - URINE, CLEAN CATCH Performing Organization Address [facility] Phone Number [facility] CLIA: [id number] [place] [address] [place] [address] Type and Screen - ONCE Routine (08/31/2020 12:23 AM CDT) Pathologist [facility] ABO & RH A POSITIVE LAB Comment: Performed at [facility] Laboratory Services - [facility] Blood Bank [address] [place] [address] Toll Free: [phone] CLIA No. [id number] IAT Negative LAB Comment: Performed at [facility] Laboratory Services - [facility] Blood Bank [address] [place] [address] Toll Free: [phone] CLIA No. [id number] Specimen Blood - VENOUS Performing Organization Address City/[facility] Phone Number [facility] LAB BASIC METABOLIC PANEL (NA, K, CL, CO2, GLUCOSE, BUN, CREATININE, CA) (08/31/2020 12:17 AM CDT) [facility] NA 134 (L) 135 - 145 [facility] mmol/L SERVICES K 3.8 3.5 - 5.0 [facility] mmol/L SERVICES CL 104 98 - 108 mmol/L [facility] SERVICES CO2 TOTAL 22 (L) 23 - 31 mmol/L [facility] SERVICES AGAP 8 2 - 16 [facility] SERVICES BUN <2 (L) 7 - 23 mg/dL [facility] SERVICES GLUCOSE 87 70 - 110 mg/dL [facility] SERVICES CREATININE 0.50 0.50 - 1.04 [facility] mg/dL SERVICES CALCIUM 8.8 8.6 - 10.6 [facility] mg/dL SERVICES eGFR Calculation 145.9 mL/min/1.73m2 [facility] (Non- SERVICES Mauritian) eGFR Calculation 176.8 mL/min/1.73m2 [facility] () SERVICES Specimen Blood - VENOUS Narrative Performed At Association of Glomerular Filtration Rate (GFR) and St aging [facility] SERVICES of Kidney Disease* + [...] in imaging tests) . Performing Organization Address City/[facility]/Zipcode Phone Number [facility] CLIA: [id number] [place] [address] [place] [address] COVID-19 (ID NOW RAPID TESTING) (08/30/2020 11:37 PM CDT) SARS-CoV-2 Rapid ID Not Detected Not Detected [facility] NOW SERVICES Specimen Swab - NASOPHARYNGEAL SWAB Narrative Performed At [place] NOW COVID-19 Assay is an isothermal nucleic acid [facility] SERVICES amplification test intended for the qualitative detect ion of nucleic acid from SARS-CoV-2 viral RNA in nasopharynge al (DRY HOUSE ATTENDANT) specimens. It is used under Emergency Use [...] indicated. Performing Organization Address City/State/Zipcode Phone Number [facility] CLIA: [id number] [place] [address] [phone] [address] [facility] URINALYSIS (08/30/2020 10:44 PM CDT) Pathologist Sig nature APPEARANCE Clear Clear [facility] COLOR Yellow Yellow [facility] PH 7.0 4.8 - 8.0 [facility] SP GRAVITY 1.012 1.003 - 1.030 [facility] GLU U QUAL Normal Normal [facility] BLOOD Negative Negative [facility] KETONES 80 mg/dL (A) Negative [facility] PROTEIN Negative Negative [facility] UROBILIN Normal Normal [facility] BILIRUBIN Negative Negative [facility] NITRITE Negative Negative [facility] LEUK HO Negative Negative [facility] RBC/HPF 2 0 - 3 HPF [facility] WBC/HPF <1 0 - 5 HPF [facility] BACTERIA Negative Negative [facility] MUCOUS Slight (A) Negative LPF [facility] SQ EPITH 1 <=2 HPF [facility] ASCORBIC ACID Negative [facility] Specimen Urine - URINE, CLEAN CATCH Performing Organization Address City/State/Zipcode Phone Number [facility] CLIA: [id number] [place] [address] [place] [address] documented in this encounter Visit Diagnoses Diagnosis [...] mL, Intravenous, ONCE, 1 dose, [facility] 08/30/20 at 2330, Routine potassium chloride 20 [...] Address T ype Group Dates ASIA BETANCOURT [id number] 2018-Anupama P O BOX Medic [place] [address] MANAGED MEDICAID [place] documented as of this encounter Advance Directives Type Date Recorded 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
--- OUTSIDE RECORDS SUMMARY | 2020-09-17 16:45 | XMS REPORT | Summary of Care ---
:1990 Author Organization [facility] Address [address] [place] [address] Care Team Providers Name Role Phone Gamal Saravia Insurance Hmo Lauren Fernandez BRICK PITCHER Primary Care Provider Reason for Visit Reason Comments Assessment vomit Encounter Details Date Type Department Care Team Description 09/06/2020 Telephone [facility]- Cornelius Fernandez, As sessment (vomit) [facility] [address] [facility] [address] [place] [address] [place] [address] [phone] Allergies Active Allergy Reactions Severity Noted Date Comments Ibuprofen Hives 04/15/2014 [employer] Hives 04/15/2014 Sodium Citrate (Bulk) Nausea and/or Vomiting 9 documented as of this encounter (statuses as of 09/06/2020) Medications Medication Sig Dispensed Refills Start End Date Status Date vit Take 1 Packet by 30 Each 6 Active 91-rsdv-afgnd-dha mouth daily. 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 Encounter for IUD removal and reinsertion 01/18/2015 ASCUS on Pap smear 04/15/2014 Estimated Date of Delivery Comments Yes 04/11/2021 Based on Ultrasound, FHT: 127, Transverse Presentation, Placen ta Too early to evaulate documented as of this encounter (statuses as of 09/06/2020) Resolved Problems Problem Noted Date Resolved Date 37 weeks gestation of 12/18/2018 01/08/20 19 [place] Hick's contraction 12/12/2018 01/08/2019 Abnormal maternal glucose [...] management 01/25/2015 05/20/2018 Overview: ICD10 Diagnosis 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 Breast tenderness in female 01/25/2015 05/20/2018 Not immune to rubella 04/16/2014 06/04/2016 Overview: ICD10 Diagnosis 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 documented as of this encounter (statuses [...] old female Patient stated she went to [facility] 08/28/20 for N/V and has received [...] has been loosing weight , please call [phone] (home) documented in this encounter Plan of Treatment Date Type Specialty Care Team Description 09/08/2020 Routine Visit OB Satellites Lauren Fernandez, BRICK PITCHER [address] [id number] [phone] Health Maintenance Due Date Last Done Comments [...] Address T e Group Dates ASIA BETANCOURT [id number] 2018-Anupama Camacho O BOX Medic [place] [address] MA[place]GED MEDICA[place] documented as of this encounter Advance Directives Type Date Recorded 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
--- OUTSIDE RECORDS SUMMARY | 2020-09-17 16:45 | XMS REPORT | Summary of Care ---
:1990 Author Organization [facility] Address [address] [place] [address] Care Team Providers Name Role Phone Gamal Saravia Insurance Hmo Lauren Fernandez LAB DIRECTOR Primary Care Provider Reason for Visit Reason Comments Assessment vomit Encounter Details Date Type Department Care Team Description 09/06/2020 Telephone [facility]- Cornelius Fernandez, As sessment (vomit) [facility] [address] [facility] [address] [place] [address] [place] [address] [phone] Allergies Active Allergy Reactions Severity Noted Date Comments Ibuprofen Hives 04/15/2014 [place] Hives 04/15/2014 Sodium Citrate (Bulk) Nausea and/or Vomiting 9 documented as of this encounter (statuses as of 09/06/2020) Medications Medication Sig Dispensed Refills Start End Date Status Date vit Take 1 Packet by 30 Each 6 Active 38-vmoo-erykb-dha mouth daily. 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 Encounter for IUD removal and reinsertion 01/18/2015 ASCUS on Pap smear 04/15/2014 Estimated Date of Delivery Comments Yes 04/11/2021 Based on Ultrasound, FHT: 127, Transverse Presentation, Placen ta Too early to evaulate documented as of this encounter (statuses as of 09/06/2020) Resolved Problems Problem Noted Date Resolved Date 37 weeks gestation of 12/18/2018 01/08/20 19 [place] Hick's contraction 12/12/2018 01/08/2019 Abnormal maternal glucose [...] management 01/25/2015 05/20/2018 Overview: ICD10 Diagnosis 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 Patient stated she wasgiven Tylenol but vomited and is pain. Stated her is taking her to [facility]. informed patient to f/u after and [...] old female Patient stated she went to [facility] 08/28/20 for N/V and has received [...] has been loosing weight , please call [phone] (home) documented in this encounter Plan of Treatment Date Type Specialty Care Team Description 09/08/2020 Routine Visit OB Satellites Lauren Fernandez FNP [address] [place], [place] [address] [phone] Health Maintenance Due Date Last Done Comments [...] Address T e Group Dates ASIA BETANCOURT [id number] 2018-Anupama Camacho O BOX Medic [place] [facility] [place] [address] MANAGED MEDICA[place] documented as of this encounter Advance Directives Type Date Recorded Patient Reviewer Sales Explanati on Advance Directives and Living Will Power of Hand Candle Molder Name Relationship Healthcare Agent Relationship Co mmunication Floyd Brown Father Health Care Agent Preet Coffey Other Health Care Agent [place] Fuentes Spouse [facility] Care Agent (Mobile)
--- OUTSIDE RECORDS SUMMARY | 2020-09-17 16:45 | XMS REPORT | Summary of Care ---
:1990 Author Organization [facility] Address [address] [place] [address] Care Team Providers Name Role Phone Gamal Saravia Insurance Hmo Lauren Fernandez PATTERNMAKER HELPER Primary Care Provider Reason for Visit Reason Comments Assessment vomit Encounter Details Date Type Department Care Team Description 09/06/2020 Telephone [facility]- Cornelius Fernandez, As sessment (vomit) [facility] [address] [facility] [address] [place] [address] [place] [address] [phone] Allergies Active Allergy Reactions Severity Noted Date Comments Ibuprofen Hives 04/15/2014 [place] Hives 04/15/2014 Sodium Citrate (Bulk) Nausea and/or Vomiting 9 documented as of this encounter (statuses as of 09/06/2020) Medications Medication Sig Dispensed Refills Start Date End Date Status vit Take 1 Packet by 30 Each 6 08/03/2020 Active 14-brpw-ytjmv-dha mouth daily. 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 Encounter for IUD removal and reinsertion [...] management 01/25/2015 05/20/2018 Overview: ICD10 Diagnosis Term Ironworker Helper Shop Utility Breast tenderness in female 01/25/2015 05/20/2018 Not immune to rubella 04/16/2014 06/04/2016 Overview: ICD10 Diagnosis Term Ironworker Helper Shop Utility documented as of this encounter (statuses [...] old female Patient stated she went to [facility] 08/28/20 for N/V and has received [...] has been loosing weight , please call [phone] (home) documented in this encounter Plan of Treatment Date Type Specialty Care Team Description 09/08/2020 Routine Visit OB Satellites Lauren Fernandez FNP [address] [address] [phone] Health Maintenance Due Date Last Done Comments [...] Address T e Group Dates ASIA BETANCOURT [id number] 2018-Anupama P O BOX Medic [place] [address] MA[place]ED MED[place] documented as of this encounter Advance Directives Type Date Recorded Patient Body Finisher Explanati on Advance Directives and Living Will Power of Crew Team Member Name Relationship Healthcare Agent Relationship Co mmunication Floyd Brown Father Health Care Agent Preet Coffey Other Health Care Agent [place] Fuentes Spouse [facility] Health Care Agent (Mobile)
--- OUTSIDE RECORDS SUMMARY | 2020-09-17 16:46 | XMS REPORT | Summary of Care ---
:1990 Author Organization [facility] Address [address] [place] [address] Care Team Providers Name Role Phone Gamal Saravia Insurance Hmo Lauren Fernandez Primary Care Provider Reason for Visit Reason Comments ROUTINE VISIT (Routine) Status Reason Specialty Diagnoses / Referred By Referred To Procedures Contact Contact New Request OB Satellites Diagnoses Hyperemesis gravidarum Marisel Galvan, Procedures Discharge Follow-Up: Computing Consultant Lorena FRANKLIN [address] [facility] [id number] [place] [address] Encounter Details Date Type Department Care Team Description 09/08/2020 Routine [facility]- Cornelius Fernandez upervision of high risk in first trimester (Primary Dx); Visit ELIZ Holland Previous section complicating p regnancy; [address] (vaginal after ) trial; [address]; [place], [place], [place] Nausea and vomi ting during ; [phone] Obesity in [phone] Allergies Active Allergy Reactions Severity Noted Date Comments Ibuprofen Hives 04/15/2014 [place] Hives 04/15/2014 Sodium Citrate (Bulk) Nausea and/or Vomiting 9 documented as of this encounter (statuses as of 09/08/2020) Medications Medication Sig Dispensed Refills Start Date End Date Status vit Take 1 Packet by 30 Each 6 08/03/2020 Active 28-abzc-yuzoi-dha mouth daily. 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 Systems Architect Utility Encounter for IUD removal and reinsertion 01/18/2015 ASCUS on Pap smear 04/15/2014 Estimated Date of Delivery Comments Yes 04/11/2021 Based on Ultrasound, FHT: 127, Transverse Presentation, Placen ta Too early to evaulate documented as of this encounter (statuses as of 09/08/2020) Resolved Problems Problem Noted Date Resolved Date 37 weeks gestation of 12/18/2018 01/08/20 19 [place] Hick's contraction 12/12/2018 01/08/2019 Abnormal maternal glucose [...] management 01/25/2015 05/20/2018 Overview: ICD10 Diagnosis Term Computer Systems Architect Utility Breast tenderness in female 01/25/2015 05/20/2018 Not immune to rubella 04/16/2014 06/04/2016 Overview: ICD10 Diagnosis Term Computer Systems Architect Utility documented as of this encounter (statuses as of 09/08/2020) Immunizations Name Administration Dates Next Due HPV9 06/04/2016 MMR 12/20/2018 (Deferred: - not available f [facility]) TDAP 04/06/2015 TDAP (ADACEL) [...] in this encounter Progress Notes Cornelius Fernandez, CHAMBER WALKER - 09/08/2020 10:45 AM CDT Chief complaint: Chief Complaint Patient presents with ROUTINE VISIT HPI CC: Follow Up Visit Suraj Fuentes is a 29 year old, , /White female. Patient's last menstrual period was 06/08/2020 (approximate). She is 9w2d with an intrauterine . Her estimated date of delivery is 04/11/2021, by Ultrasound. She went to [facility] ER for nausea and vomitin g, [...] Manny Gray; Location: Labor and Delivery - [place] Social History Socioeconomic History Marital status: Spouse [...] sexual or emotional abuse. Only outside cats. Shinto: None Patient lives with spouse and kids. [...] problems of obesity on future pregnancies and/or nursing home health. Return to clinic in 4 weeks. 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
--- OUTSIDE RECORDS SUMMARY | 2020-09-17 16:46 | XMS REPORT | Summary of Care ---
:1990 Author Organization [facility] Address [address] [place] [address] Care Team Providers Name Role Phone Gamal Saravia Insurance Hmo Lauren Fernandez Primary Care Provider Reason for Visit Reason Comments ROUTINE VISIT (Routine) Status Reason Specialty Diagnoses / Referred By Referred To Procedures Contact Contact New Request OB Satellites Diagnoses Hyperemesis gravidarum Marisel Galvan, Procedures Discharge Follow-Up: Industrial Staff Nurse Lorena FRANKLIN [address] [facility] [id number] [place] [address] Encounter Details Date Type Department Care Team Description 09/08/2020 Routine [facility]- Cornelius Fernandez upervision of high risk in first trimester (Primary Dx); Visit ELIZ Holland Previous section complicating p regnancy; [address] [place] NANCY (vaginal after ) trial; [address]; [place], [place], [place] Nausea and vomi ting during ; [phone] Obesity in [phone] Allergies Active Allergy Reactions Severity Noted Date Comments Ibuprofen Hives 04/15/2014 [place] Hives 04/15/2014 Sodium Citrate (Bulk) Nausea and/or Vomiting 9 documented as of this encounter (statuses as of 09/08/2020) Medications Medication Sig Dispensed Refills Start Date End Date Status vit Take 1 Packet by 30 Each 6 08/03/2020 Active 50-oshd-slzwi-dha mouth daily. 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 Verification Engineer Utility Encounter for IUD removal and reinsertion 01/18/2015 ASCUS on Pap smear 04/15/2014 Estimated Date of Delivery Comments Yes 04/11/2021 Based on Ultrasound, FHT: 127, Transverse Presentation, Placen ta Too early to evaulate documented as of this encounter (statuses as of 09/08/2020) Resolved Problems Problem Noted Date Resolved Date 37 weeks gestation of 12/18/2018 01/08/20 19 [place] Hick's contraction 12/12/2018 01/08/2019 Abnormal maternal glucose [...] management 01/25/2015 05/20/2018 Overview: ICD10 Diagnosis Term Verification Engineer Utility Breast tenderness in female 01/25/2015 05/20/2018 Not immune to rubella 04/16/2014 06/04/2016 Overview: ICD10 Diagnosis Term Verification Engineer Utility documented as of this encounter (statuses as of 09/08/2020) Immunizations Name Administration Dates Next Due HPV9 06/04/2016 MMR 12/20/2018 (Deferred: - not available f [facility]) TDAP 04/06/2015 TDAP (ADACEL) [...] in this encounter Progress Notes Cornelius Fernandez, TRAILER TRUCK DRIVER - 09/08/2020 10:45 AM CDT Chief complaint: Chief Complaint Patient presents with ROUTINE VISIT HPI CC: Follow Up Visit Suraj Fuentes is a 29 year old, , /White female. Patient's last menstrual period was 06/08/2020 (approximate). She is 9w2d with an intrauterine . Her estimated date of delivery is 04/11/2021, by Ultrasound. She went to [facility] ER for nausea and vomitin g, [...] Manny Gray; Location: Labor and Delivery - [place] Social History Socioeconomic History Marital status: Spouse [...] file Gets together: Not on file Attends gnosticist service: Not on file Active member of [...] sexual or emotional abuse. Only outside cats. Rastafarian: None Patient lives with spouse and kids. [...] problems of obesity on future pregnancies and/or retirement health. Return to clinic in 4 weeks. [...] / Subscriber ID Effective Phone Address T [facility] Group Dates ASIA BETANCOURT [id number] 2018-Anupama HIDALGO Medic [place] [id number] MA[place]ED MEDICA[place] documented as of this encounter Advance Directives Type Date Recorded Patient Slunk Skinner Explanati on Advance Directives and Living Will Power of C2 Tactical Analysis Technician Name Relationship Healthcare Agent Relationship Co mmunication Floyd Brown Father Health Care Agent Preet Coffey Other Health Care Agent [place] Fuentes Spouse First [facility] Health Care Agent (Mobile)
--- OUTSIDE RECORDS SUMMARY | 2020-09-17 16:46 | XMS REPORT | Summary of Care ---
:1990 Author Organization [facility] Address [address] [place] [address] Care Team Providers Name Role Phone Gamal Saravia Insurance Hmo Lauren Fernandez Primary Care Provider Reason for Visit Reason Comments Abdominal Pain Vomiting Auth/Cert Status Reason Specialty Diagnoses / Referred By Referred To Procedures Contact Contact Emergency Medicine Adc Em ergency Dept [address] [id number] Fax: Encounter Details Date Type Department Care Team Description 09/07/2020 Emergency ADC-Emergency Depart ment Mary Carmen Jacobs, PAC [address] [facility] [address] maloney [address] [place] [address] [place] [address] [phone] Allergies Active Allergy Reactions Severity Noted Date Comments Ibuprofen Hives 04/15/2014 [place] Hives 04/15/2014 Sodium Citrate (Bulk) Nausea and/or Vomiting 9 documented as of this encounter (statuses as of 09/07/2020) Medications Medication Sig Dispensed Refills Start Date End Date Status vit Take 1 Packet by 30 Each 6 08/03/2020 Active 82-vgim-hhnyi-dha mouth daily. 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 Also discussed contacting her ssn/ssbn assistant navigator for termination. Pt signed AMA form and walked out of ER without incident. Brenda frost RN - 09/07/2020 2:45 PM CDTPt upset with staff regarding visitor policy states, "She just needs an retail assistant store manager. She needs toget this baby out of [...] 09/08/2020 Routine Visit OB Satellites Lauren Fernandez, GENERAL SUPERINTENDENT [address] [place], [place] [address] [phone] Health Maintenance Due Date Last Done Comments [...] Address T ype Group Dates ASIA BETANCOURT [id number] 2018-Anupama Camacho [address] B[address] Medic [place] [id number] [place]ED MEDICA[place] documented as of this encounter Advance Directives Type Date Recorded Patient Beauty Therapist Explanati on Advance Directives and Living Will Power of Communication Clerk Name Relationship Healthcare Agent Relationship Co mmunication Floyd Brown [facility] Health Care Agent Preet Coffey Other Health Care Agent [place] Fuentes Spouse First [facility] Health Care Agent (Mobile)
--- OUTSIDE RECORDS SUMMARY | 2020-09-17 16:46 | XMS REPORT | Summary of Care ---
:1990 Author Organization [facility] Address [address] [place] [address] Care Team Providers Name Role Phone Gamal Saravia Insurance Hmo Lauren Fernandez Primary Care Provider Reason for Visit Reason Comments ROUTINE VISIT (Routine) Status Reason Specialty Diagnoses / Referred By Referred To Procedures Contact Contact New Request OB Satellites Diagnoses Hyperemesis gravidarum Marisel Galvan, Procedures Discharge Follow-Up: Group Fitness Instructor Lorena FRANKLIN [address] [facility] [id number] [place] [address] Encounter Details Date Type Department Care Team Description 09/08/2020 Routine [facility]- Cornelius Fernandez upervision of high risk in first trimester (Primary Dx); Visit ELIZ Holland Previous section complicating p regnancy; [address] NANCY (vaginal after ) trial; [address]; [place], [place], [place] Nausea and vomi ting during ; [phone] Obesity in [phone] Allergies Active Allergy Reactions Severity Noted Date Comments Ibuprofen Hives 04/15/2014 [place] Hives 04/15/2014 Sodium Citrate (Bulk) Nausea and/or Vomiting 9 documented as of this encounter (statuses as of 09/08/2020) Medications Medication Sig Dispensed Refills Start Date End Date Status vit Take 1 Packet by 30 Each 6 08/03/2020 Active 32-hlbi-uhhid-dha mouth daily. 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 Advanced Manufacturing Engineer Utility Encounter for IUD removal and [...] management 01/25/2015 05/20/2018 Overview: ICD10 Diagnosis Term Advanced Manufacturing Engineer Utility Breast tenderness in female 01/25/2015 05/20/2018 Not immune to rubella 04/16/2014 06/04/2016 Overview: ICD10 Diagnosis Term Advanced Manufacturing Engineer Utility documented as of this encounter [...] in this encounter Progress Notes Cornelius Fernandez, LOW PRESSURE BOILER OPERATOR - 09/08/2020 10:45 AM CDT Chief complaint: Chief Complaint Patient presents with ROUTINE VISIT HPI CC: Follow Up Visit Suraj Fuentes is a 29 year old, , /White female. Patient's last menstrual period was 06/08/2020 (approximate). She is 9w2d with an intrauterine . Her estimated date of delivery is 04/11/2021, by Ultrasound. She went to [facility] ER for nausea and vomitin [...] Manny Gray; Location: Labor and Delivery - [place] Social History Socioeconomic History Marital status: Spouse [...] file Gets together: Not on file Attends tenriism service: Not on file Active member of [...] sexual or emotional abuse. Only outside cats. Alevism: None Patient lives with spouse and kids. [...] 10/06/2020 Routine Visit OB Satellites Lauren Fernandez, LOW PRESSURE BOILER OPERATOR [address] [place], [place] [address] [phone] Health Maintenance Due Date Last Done Comments [...] Address T ype Group Dates ASIA BETANCOURT [id number] 2018-Anupama HIDALGO Medic [place] [id number] [place]ED MEDICAID [place] documented as of this encounter Advance Directives Type Date Recorded Patient Waste Removalist Explanati on Advance Directives and Living Will Power of Logistics Technician Name Relationship Healthcare Agent Relationship Co mmunication Floyd Brown Father Health Care Agent Preet Milagrosteph Other Health Care Agent [place] Fuentes Spouse First [facility] Health Care Agent (Mobile)
--- OUTSIDE RECORDS SUMMARY | 2020-09-17 16:47 | XMS REPORT | Summary of Care ---
:1990 Author Organization [facility] Address [address] [place] [address] Care Team Providers Name Role Phone Gamal Saravia Insurance Hmo Lauren Fernandez AIR SAMPLER Primary Care Provider Reason for Visit Reason Comments Rx Concern/Question prior auth go to cover mymed s [id number] Encounter Details Date Type Department Care Team Description 09/07/2020 Telephone [facility]- Cornelius Fernandez, Rx Concern/Question [place] FNP (prior auth go to [facility] [address] [facility] cover mymeds [id number]) [place] [address] [place], [place] [phone] [address] [phone] Allergies Active Allergy Reactions Severity Noted Date Comments Ibuprofen Hives 04/15/2014 [place] Hives 04/15/2014 Sodium Citrate (Bulk) Nausea and/or Vomiting 9 documented as of this encounter (statuses as of 09/08/2020) Medications Medication Sig Dispensed Refills Start Date End Date Status vit Take 1 Packet by 30 Each 6 08/03/2020 Active 42-szcy-xoxbw-dha mouth daily. 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 Chief Inspector Utility Encounter for IUD removal and reinsertion 01/18/2015 ASCUS on Pap smear 04/15/2014 Estimated Date of Delivery Comments Yes 04/11/2021 Based on Ultrasound, FHT: 127, Transverse Presentation, Placen ta Too early to evaulate documented as of this encounter (statuses as of 09/08/2020) Resolved Problems Problem Noted Date Resolved Date 37 weeks gestation of 12/18/2018 01/08/20 19 [place] Hick's contraction 12/12/2018 01/08/2019 Abnormal maternal glucose [...] management 01/25/2015 05/20/2018 Overview: ICD10 Diagnosis Term Chief Inspector Utility Breast tenderness in female 01/25/2015 05/20/2018 Not immune to rubella 04/16/2014 06/04/2016 Overview: ICD10 Diagnosis Term Chief Inspector Utility documented as of this encounter [...] for authorization of nausea medication. 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
--- OUTSIDE RECORDS SUMMARY | 2020-09-17 16:47 | XMS REPORT | Summary of Care ---
:1990 Author Organization [facility] Address [address] [place] [address] Care Team Providers Name Role Phone Gamal Saravia Insurance Hmo Lauren Fernandez Primary Care Provider Reason for Visit Reason Comments Assessment Encounter Details Date Type Department Care Team Description 09/09/[address] [facility] RMP- A Cornelius Allen FNP Assessment [address] [facility] [address] [place] [address] [place] [address] [phone] Allergies Active Allergy Reactions Severity Noted Date Comments Ibuprofen Hives 04/15/2014 [place] Hives 04/15/2014 Sodium Citrate (Bulk) Nausea and/or Vomiting 9 documented as of this encounter (statuses as of 09/09/2020) Medications Medication Sig Dispensed Refills Start Date End Date Status vit Take 1 Packet by 30 Each 6 08/03/2020 Active 95-ynft-igetx-dha mouth daily. (SELECT-OB + DHA) 29 mg [...] in 01/25/2015 Overview: ICD10 Diagnosis Term Cage Maker Utility Encounter for IUD removal and [...] 01/25/2015 05/20/2018 Overview: ICD10 Diagnosis Term Cage Maker Utility Breast tenderness in female 01/25/2015 05/20/2018 Not immune to rubella 04/16/2014 06/04/2016 Overview: ICD10 Diagnosis Term Cage Maker Utility documented as of this encounter [...] 10/06/2020 Routine Visit OB Satellites Lauren Fernandez, ROUGE MIXER [address] [address] [phone] Health Maintenance Due Date Last Done Comments [...] / Subscriber ID Effective Phone Address T [facility] Group Dates ASIA BETANCOURT [id number] 2018-Anupama Camacho [address] BOX Medic [facility] [place] [id number] MANAGED MEDICAID [place] documented as of this encounter Advance Directives Type Date Recorded Patient Content Management Consultant Explanati on Advance Directives and Living Will Power of Presser Hand Name Relationship Healthcare Agent Relationship Co mmunication Floyd Brown Father Health Care Agent Preet Coffey Other Health Care Agent [place] Gina Spouse [facility] Care Agent (Mobile)
--- OUTSIDE RECORDS SUMMARY | 2020-09-17 16:47 | XMS REPORT | Summary of Care ---
:1990 Author Organization [facility] Address [address] [place] [address] Care Team Providers Name Role Phone Gamal Saravia Insurance Hmo Lauren Fernandez Primary Care Provider Reason for Visit Reason Comments Abdominal Pain Encounter Details Date Type Department Care Team Description 09/09/2020 [facility] Graciela Burks, Abdominal Pain [facility] [address] [facility] [address] [place] [address]55 [facility] [phone] [place], [place] [address] [phone] Allergies Active Allergy Reactions Severity Noted Date Comments Ibuprofen Hives 04/15/2014 [place] Hives 04/15/2014 Sodium Citrate (Bulk) Nausea and/or Vomiting 9 documented as of this encounter (statuses as of 09/09/2020) Medications Medication Sig Dispensed Refills Start Date End Date Status vit Take 1 Packet by 30 Each 6 08/03/2020 Active 11-zrmh-yppcu-dha mouth daily. 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 Snow Removal/Plowing Utility Encounter for IUD removal and reinsertion [...] management 01/25/2015 05/20/2018 Overview: ICD10 Diagnosis Term Snow Removal/Plowing Utility Breast tenderness in female 01/25/2015 05/20/2018 Not immune to rubella 04/16/2014 06/04/2016 Overview: ICD10 Diagnosis Term Snow Removal/Plowing Utility documented as of this encounter (statuses [...] patient, a gentleman answered reporting he is Surja;s patient but like a father figure to her. He proceed to put Suraj on speaker phone. The patient is sounds as though she is grimacing in pain, can barely get her words out, reporting that it feels as though her "insides are being ripped out." she states she was seen at the [place] ER earlier today but reports no imaging was done, she was only given IV fluids. Patient advised to go to L&D for further evaluation, the gentleman and patient agreed and reported that he would to take her to [place] [facility]. Report called and given to Sharlene MEJÍA. BELLA Brower 09/09/2020 4:24 PM documented in this encounter Plan of Treatment Date Type Specialty Care Team Description 10/06/2020 Routine Visit OB Satellites Lauren Fernanedz, LAB SUPPORT SERVICE TECH [address] [place], [place] [address] [phone] Health Maintenance Due Date Last Done Comments [...] Address T e Group Dates ASIA BETANCOURT [id number] 2018-Anupama [address] Medic [place] [phone] MA[place] MEDICA[place] documented as of this encounter Advance Directives Type Date Recorded Patient Industrial Maintenance Technician Explanati on Advance Directives and Living Will Power of Bundle Breaker Name Relationship Healthcare Agent Relationship Co mmunication Floyd Brown [facility] Health Care Agent Preet Coffey Other Health Care Agent [place] Fuentes Spouse First [facility] Health Care Agent (Mobile)
--- OUTSIDE RECORDS SUMMARY | 2020-09-17 16:47 | XMS REPORT | Summary of Care ---
:1990 Author Organization [facility] Address [address] [place] [address] Care Team Providers Name Role Phone Gamal Saravia Insurance Hmo Lauren Fernandez ORDER EXPEDITER Primary Care Provider Reason for Visit Reason Comments Other PRIOR AUTH go to [facility] [id number] Encounter Details Date Type Department Care Team Description 09/08/2020 Telephone [facility]- Cornelius Fernandez, Ot her (PRIOR AUTH go [facility] to [facility] [address] [facility] [id number]) [place] [address] [place], [place] [phone] [phone] Allergies Active Allergy Reactions Severity Noted Date Comments Ibuprofen Hives 04/15/2014 Chetek Hives 04/15/2014 Sodium Citrate (Bulk) Nausea and/or Vomiting 9 documented as of this encounter (statuses as of 09/09/2020) Medications Medication Sig Dispensed Refills Start Date End Date Status vit Take 1 Packet by 30 Each 6 08/03/2020 Active 24-wydf-roipq-dha mouth daily. 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 Operator Sulfide Utility Encounter for IUD removal and reinsertion 01/18/2015 ASCUS on Pap smear 04/15/2014 Estimated Date of Delivery Comments Yes 04/11/2021 Based on Ultrasound, FHT: 127, Transverse Presentation, Placen ta Too early to evaulate documented as of this encounter (statuses as of 09/09/2020) Resolved Problems Problem Noted Date Resolved Date 37 weeks gestation of 12/18/2018 01/08/20 19 [place] Hick's contraction 12/12/2018 01/08/2019 Abnormal maternal glucose [...] management 01/25/2015 05/20/2018 Overview: ICD10 Diagnosis Term Head Operator Sulfide Utility Breast tenderness in female 01/25/2015 05/20/2018 Not immune to rubella 04/16/2014 06/04/2016 Overview: ICD10 Diagnosis Term Head Operator Sulfide Utility documented as of this encounter (statuses [...] 09/08/2020 4:09 PM CDTGo to covermymeds Doxylamine [id number] signed by Leyla Sapp at 09/08/2020 4:13 PM CDT documented in this encounter Plan of Treatment Date Type Specialty Care Team Description 10/06/2020 Routine Visit OB Satellites Lauren Fernandez, ORDER EXPEDITER [address] [place], [place] [address] [phone] Health Maintenance Due Date Last Done Comments [...] Address T ype Group Dates ASIA BETANCOURT [id number] 2018-Anupama HIDALGO Medic [place] [phone] [place] documented as of this encounter Advance Directives Type Date Recorded Patient Attraction Worker Explanati on Advance Directives and Living Will Power of Substance Abuse Clinician Name Relationship Healthcare Agent Relationship Co mmunication Floyd Brown [facility] Agent Preet Coffey Other Health Care Agent [place] Fuentes Spouse [facility] Health Care Agent (Mobile)
--- OUTSIDE RECORDS SUMMARY | 2020-09-17 16:48 | XMS REPORT | Summary of Care ---
:1990 Author Organization [facility] - [facility] Address [address] [place] [address] Care Team Providers Name Role Phone Gamal Saravia Insurance Hmo Laruen Fernandez EMPLOYMENT RECRUITER Primary Care Provider Reason for Referral (Routine) Status Reason Specialty Diagnoses / Procedures Referred By Lauren marquez To Contact Contact New Request Diagnoses Nausea and vomiting, intractability of vomiting not specified, unspecified vomiting type Hyperemesis gravidarum Prema Hernandez MD Procedures Discharge Follow-Up: Contract Preparer [facility]nic [address] [place] [address]. [place] [address] Radiology Services (STAT) Status Reason Specialty Diagnoses / Referred By Referred To Procedures Contact Contact New Request Diagnostic Diagnoses Nausea and vomiting, intractability of vomiting not specified, unspecified vomiting type Generalized abdominal pain Marcelo Carpio Radiology Procedures US ABDOMEN LIMITED MD Keerthi [address] [place] [address] [id number] [place] [address] Reason for Visit Reason Comments Abdominal Pain Auth/Cert Status Reason Specialty Diagnoses / Referred By Referred To Procedures Contact Contact Emergency Medicine [facility] rgency Dept [address] [place] [address] Fax: Encounter Details Date Type Department Care Team Description 09/09/2020 - Hospital Encounter Obstetrics and ShirinMarcelo MD [address] [id number] [place], [place] [address] Nausea & vomiting 09/10/2020 Gynecology (J10C) Karlie Brown MD [address] [address] [id number] [place], [place] [id number] [address] [place] [address] Allergies Active Allergy Reactions Severity Noted Date Comments Ibuprofen Hives 04/15/2014 Hampton Hives 04/15/2014 Sodium Citrate (Bulk) Nausea and/or Vomiting 9 documented as of this encounter (statuses as of 09/10/2020) Medications Medication Sig Dispensed Refills Start Date End Date Status vit Take 1 Packet by 30 Each 6 08/03/2020 Active 56-yybg-dkphx-dha mouth daily. 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 Encounter for IUD removal and reinsertion 01/18/2015 ASCUS on Pap smear 04/15/2014 Estimated Date of Delivery Comments Yes 04/11/2021 Based on Ultrasound, FHT: 127, Transverse Presentation, Placen ta Too early to evaulate documented as of this encounter (statuses as of 09/10/2020) Resolved Problems Problem Noted Date Resolved Date 37 weeks gestation of 12/18/2018 01/08/20 19 [place] Hick's contraction 12/12/2018 01/08/2019 Abnormal maternal glucose [...] management 01/25/2015 05/20/2018 Overview: ICD10 Diagnosis Term Entomology Professor Utility Breast tenderness in female 01/25/2015 05/20/2018 Not immune to rubella 04/16/2014 06/04/2016 Overview: ICD10 Diagnosis Term Entomology Professor Utility documented as of this encounter [...] SW, patient needed transport home. provided Voucher #[id number] for [employer] . Roseann Bowens LMSW Kennel Technician Care Management C: [phone] O: [phone] [email or web address] Poonam Solomon MD - 09/10/2020 4:00 PM CDTR1 CASTLE CALL PROGRESS NOTE Suraj Fuentes [id number] 09/10/2020, 4:00 PM Notified by RN that patient is now tolerating a regular diet. Pt previously on oral antiemetics and adamantly desires to be d/c at this time. Will d/c with home medications. Precautions given, f/u withregular PNV. Discussed with Dr. Eller. Poonam Solomon MD PUBLICITY EXPERT PGY-1 09/10/20 documented in this encounter H&P [...] Manny Gray; Location: Labor and Delivery - [place] Past Medical History: Diagnosis Date Abnormal maternal [...] 09/10/20 0632 Allergies and drug reactions: Ibuprofen, Hampton, and Sodium citrate (bulk) HOME MEDICATIONS Prescriptions [...] for 42 days. 120 tablet 1 vit 55-nmlo-tkbjl-dha (SELECT-OB + DHA) 29 mg iron-1 mg [...] Date/Time GLUF 68 (L) 12/12/2018 07:47 AM [id number] 124 08/03/2020 02:17 PM GLU3H 108 12/12/2018 [...] without pain. Morirs sign negative on BSUS. -Plan Tylenol 650 mg q6h prn for pain Prev x1 - G1, G2 via - G3 via PCS 11/2018 due to breech presentation at 37w - Documented LTCS at [facility] - Desires possible Hx PTD - G1 at 34w - G2 at 36w COVID-19 SCREEN: Lab Results Component Value Date/Time COVID19 Not Detected 09/10/2020 02:30 AM Antepartum course reviewed - early 1 h 124, sero negative, Rnot immune, VZVequiv, A positive/IAT negative, GBS unk, Pap ASCUS 11/27/17 - H/H, plt: 13.9 / 39.3, 180 [facility] Presentation on admission: variable - too early to eval placenta - FHT 154 bpm DISPO: Admit for IV antiemetics in the setting of hyperemesis. PO challenge in AM D/w Dr. Mason. Destinee Wiseman MD PGY-2 PUBLICITY EXPERT Personal Pager: [phone] 09/10/20 1:51 AM Associated attestation - Karlie Brown MD - 09/10/2020 11:01 AM CDTI personally examined the patient on 09/10/[address] Wiseman's resident note as written. I actively participated in the decision-making process. Please see the resident's note for additional details. documented in this encounter Consult Notes Destinee Wiseman MD - 09/10/2020 12:20 AM CDTAssociated Order(s): CONSULT PUBLICITY EXPERT TRIAGE/L&D HISTORY & PHYSICAL IDENTIFYING DATA Suraj [...] Manny Gray; Location: Labor and Delivery - [place] Past Medical History: Diagnosis Date Abnormal maternal [...] 09/10/20 0632 Allergies and drug reactions: Ibuprofen, Hampton, and Sodium citrate (bulk) HOME MEDICATIONS Medications [...] for 42 days. 120 tablet 1 vit 43-egrd-yizty-dha (SELECT-OB + DHA) 29 mg iron-1 mg [...] Date/Time GLUF 68 (L) 12/12/2018 07:47 AM [id number] 124 08/03/2020 02:17 PM GLU3H 108 12/12/2018 [...] presentation at 37w - Documented LTCS at [facility] - Desires possible Hx PTD - G1 at 34w - G2 at 36w COVID-19 SCREEN: Lab Results Component Value Date/Time COVID19 Not Detected 09/10/2020 02:30 AM Antepartum course reviewed - early 1 h 124, sero negative, Rnot immune, VZVequiv, A positive/IAT negative, GBS unk, Pap ASCUS 11/27/17 - H/H, plt: 13.9 / 39.3, 180 on 09/09/20 - [facility] Fetus - Presentation on admission: variable [...] 3. Patient reports has started care. arcelo Caprio MD - 09/09/2020 7:35 PM CDT [facility] Emergency Department Note Patient Name: Suraj Fuentes Date of : 1990 29 year old female Treatment Room: 119/119 Primary Care Physician: Cornelius Fernandez Patient Escorted by: Self [9] Mode of Arrival: Personal means [1] EMS Treatment Prior to ED Arrival: TRAINING DEVELOPMENT DIRECTOR treatment: IVF;Other (comment) TRAINING DEVELOPMENT DIRECTOR treatment comments: Per patient she was seen [...] or recent trauma History provided by: Patient stencil sprayer used: No Past Medical History/Immunizations: Past Medical History: Diagnosis Date Abnormal maternal glucose tolerance, antepartum 12/11/2018 Resolved per pt report Anxiety Resolved per pt report Anxiety and depression resolved Mental disorder Ovarian cyst recently found out of dx. Tetanus received in last 5 years: Unknown Childhood immunizations: Up-to-date Allergies: Allergies Allergen Reactions Ibuprofen Hives Hampton Hives Sodium Citrate (Bulk) Nausea and/or Vomiting [...] Manny Gray; Location: Labor and Delivery - [place] Review of Systems: Review of Systems Constitutional: [...] Doppler ultrasound of the right upper quadrant. Nurse Instructor images were obtained for the record. COMPARISON: [...] Calculation () 222.3 mL/min/1.73m2 HEPATIC FUNCTION PANEL (42888) (ALB,T.PRO,BILI T,BU/BC,ALT,AST,ALK PHOS) Collection Time: 09/09/20 8:03 [...] GLUCOSE, BUN, CREATININE, CA) HEPATIC FUNCTION PANEL (12966) (ALB,T.PRO,BILI T,BU/BC,ALT,AST,ALK PHOS) LIPASE URINALYSIS CONSULT PUBLICITY EXPERT Orders Placed This Encounter Medications NaCl 0.9% [...] and antiemetics with minimal improvement in pain. Contract Preparer consulted. MDM: MDM Reviewed: nursing note and vitals Interpretation: labs and ultrasound Consults: PUBLICITY EXPERT Scoring Tools: No data recorded Diagnosis/Impression: ICD-10-CM [...] 2 tablets by mouth at bedtime. VIT 95-EYWC-JCVLL-DHA (SELECT-OB + DHA) 29 MG IRON-1 MG [...] RN - 09/10/2020 4:00 AM CDTPt to [facility] at this time via [facility] transport in stretcher. Respirations even and unlabored, AAOx4, NAD noted. D Nurse Note - Merna Ramos RN - 09/10/2020 3:37 AM CDTIce chips provided PO per patient request. D Nurse Note - Ada Bush RN - 09/10/2020 3:20 AM CDTPatient report called to recieving ALFONZO Jerome on floor [address] Patient updated on plan of care and verbalizes understanding. Patients VSS, RR even and unlabored, and NAD noted. [facility] tele track requested, awaiting transport to [facility]. D Nurse Note - Kristi Francis RN - 09/10/2020 3:17 AM CDTTransport requested D Nurse Note - Ada Bush RN - 09/10/2020 3:13 AM CDTRn returned call and states that patient is going to [facility] D Nurse Note - Ada Bush RN - 09/10/2020 3:09 AM CDTAttempted to call report. Per RN on Chevy Carpenter, they are attempting to get a bed assigned in antepartum. acid conditioning worker states she is speaking with CN on [...] by 2 visitors. Patient connected to bedside clinical research monitor. D Nurse Note - Ada Bush RN - 09/09/2020 7:44 PM CDTPatient to room from triage documented in this encounter Plan of Treatment Date Type Specialty Care Team Description 10/06/2020 Routine Visit OB Satellites Lauren Fernandez, EMPLOYMENT RECRUITER [address] [place] [address] [phone] Name Type Priority Associated Diagnoses Date/Ti me [...] PANEL LAB Routine ONCE f or 1 (43244) Occurrences sta rting 09/10/2020 unti l 09/10/2020 [...] Nausea and vomiting, Results for this PANEL (12811) PM CDT intractability of procedure are in [...] SARS-CoV-2 Rapid ID Not Detected Not Detected [facility] Specimen Swab - NASOPHARYNGEAL SWAB Narrative Performed At ID NOW COVID-19 Assay is an isothermal nucleic acid [facility] amplification test intended for the qualitative detect ion of nucleic acid from SARS-CoV-2 viral RNA in nasopharynge al (EMBRYOLOGY PROFESSOR) specimens. It is used under Emergency Use [...] testing if clinically indicated. Performing Organization Address [facility] Phone Number [facility] CLIA: [id number] [place] [address] [place] [address] URINALYSIS (09/09/2020 11:55 PM CDT) Pathologist Sig nature APPEARANCE Clear Clear [facility] COLOR Yellow Yellow [facility] PH 7.0 4.8 - 8.0 [facility] SP GRAVITY 1.015 1.003 - 1.030 [facility] GLU U QUAL 50 mg/dL (A) Normal [facility] BLOOD Negative Negative [facility] KETONES 80 mg/dL (A) Negative [facility] PROTEIN Negative Negative [facility] UROBILIN Normal Normal [facility] BILIRUBIN Negative Negative [facility] NITRITE Negative Negative [facility] LEUK HO Negative Negative [facility] RBC/HPF 1 0 - 3 HPF [facility] WBC/HPF 2 0 - 5 HPF [facility] BACTERIA Negative Negative [facility] MUCOUS Slight (A) Negative LPF [facility] SQ EPITH 5 (H) <=2 HPF [facility] Specimen Urine - URINE, CLEAN CATCH Performing Organization Address [facility] Phone Number [facility] CLIA: [id number] [place] [address] [place] [address] US ABDOMEN LIMITED (09/09/2020 9:45 PM CDT) [...] er ultrasound of the right upper quadrant. Nurse Instructor images were obt ained for the record. [...] er ultrasound of the right upper quadrant. Nurse Instructor images were obt ained for the record. [...] 3 mm in AP diamete r at maruicio hepatis, normal. PANCREAS: The visualized portions of [...] LIPASE 356 (H) 0 - 220 U/L [facility] Specimen Blood - VENOUS Performing Organization Address [facility]/Zipcode Phone Number [facility] CLIA: [id number] [place], [place] [address] [address] [place] [address] HEPATIC FUNCTION PANEL (60365) (ALB,T.PRO,BILI T,BU/BC,ALT,AST,ALK PHOS) (09/09/2020 8:03 PM CDT) Pathologist Sig nature TOTAL BILI 0.8 0.1 - 1.1 mg/dL [facility] BILI UNCON 0.9 0.1 - 1.1 mg/dL [facility] BILI CONJ 0.0 0.0 - 0.3 mg/dL [facility] T PROTEIN 6.8 6.3 - 8.2 g/dL [facility] ALBUMIN 4.1 3.5 - 5.0 g/dL [facility] ALK PHOS 49 34 - 122 U/L [facility] ALTv 52 (H) 5 - 35 U/L [facility] AST(SGOT) 43 (H) 13 - 40 U/L [facility] Specimen Blood - VENOUS Performing Organization Address [facility]/Zipcode Phone Number [facility] CLIA: [id number] [place], [place] [id number] [address] [place] [address] BASIC METABOLIC PANEL (NA, K, CL, CO2, GLUCOSE, BUN, CREATININE, CA) (09/09/2020 8:03 PM CDT) NA 135 135 - 145 [facility] mmol/L SERVICES K 4.2Comment: 3.5 - 5.0 [facility] Slight hemolysis mmol/L SERVICES CL 103 98 - 108 [facility] mmol/L SERVICES CO2 TOTAL 21 (L) 23 - 31 [facility] mmol/L SERVICES AGAP 11 2 - 16 [facility] BUN 2 (L)Comment: 7 - 23 mg/dL [facility] Slight hemolysis SERVICES GLUCOSE 90 70 - 110 [facility] mg/dL SERVICES CREATININE 0.41 (L) 0.50 - 1.04 [facility] mg/dL SERVICES CALCIUM 9.1 8.6 - 10.6 [facility] mg/dL SERVICES eGFR Calculation 183.4 mL/min/1.73m2 [facility] (Non- SERVICES Trin[place]adian) eGFR Calculation 222.3 mL/min/1.73m2 [facility] () SERVICES Specimen Blood - VENOUS Narrative Performed At Association of Glomerular Filtration Rate (GFR) and St aging [facility] of Kidney Disease* + + +------- ------ + | GFR (mL/min/1.73 m2) | With Kidney Damage | [facility] Kidney Damage + + +------- ------ [...] . Performing Organization Address City/State/Zipcode Phone Number [facility] CLIA: [id number] [place] [address] [place] [address] CBC WITH DIFF (09/09/2020 8:03 PM CDT) Pathologist Sig nature WBC 8.85 4.30 - 11.10 [facility] 10*3/L SERVICES RBC 4.48 3.93 - 5.25 [facility] 10*6/L SERVICES HGB 13.9 11.6 - 15.0 [facility] g/dL SERVICES HCT 39.3 35.7 - [...] VENOUS Performing Organization Address City/State/Zipcode Phone Number [facility] CLIA: [id number] [place] [address] [place] [address] documented in this encounter Visit Diagnoses Diagnosis [...] Address T e Group Dates ASIA BETANCOURT [id number] 2018-Anupama HIDALGO Medic [place] [address] MA[place]GED MED[place] documented as of this encounter Advance Directives Type Date Recorded Patient Nurse Instructor Explanati on Advance Directives and Living Will Power of Vp Platforms Name Relationship Healthcare Agent Relationship Co mmunication Floyd Holloway Health Care Agent (Work) Preet Coffey Other Health Care Agent (Work) [place] Nicolegamal Spouse [facility] Agent (Mobile) "
[2020-09-17 18:24] LABS: Absolute Lymphocytes (CBC) 1.4 K/uL (0.7-4.9); Basophils % 0.3 % (0-1.3); Hematocrit 40.2 % (36.0-45.0); Lymphocytes % 18.7 % (15.3-44.8); RBC Red Blood Cell Count 4.59 M/uL (3.86-4.86)
[2020-09-17] MEDS ORDERED: DICYCLOMINE HCL 20 MG/2 ML AMP IM ONE (18:25)
[2020-09-17] MEDS ORDERED: DIPHENHYDRAMINE 50 MG/ML VIAL ONE ×2 (18:25→19:57)
[2020-09-17] MEDS ORDERED: NA CHLORIDE 0.9% 1,000 ML ONE (18:25)
[2020-09-17] MEDS ORDERED: PROMETHAZINE 25 MG/SUPP PR ONE (18:26)
[2020-09-17 18:32] LABS: ALT/SGPT 28 U/L (12-78); AST/SGOT 13 U/L (15-37); Albumin 3.7 g/dL (3.4-5.0); Alkaline Phosphatase 60 U/L (45-117); BUN Blood Urea Nitrogen 5 mg/dL (7-18); Bicarbonate 24 mmol/L (21-32); Bilirubin Direct 0.2 mg/dL (0-0.2); Bilirubin Total 0.7 mg/dL (0.2-1.0); Glucose Level 96 mg/dL (74-106); Lipase 45 U/L (73-393); Potassium 3.5 mmol/L (3.5-5.1); Protein, Total 7.2 g/dL (6.4-8.2); Sodium Level 139 mmol/L (136-145)
[2020-09-17] MEDS ORDERED: PROMETHAZINE INJ 25 MG/ML AMP ONE (18:38)
[2020-09-17] MEDS ORDERED: NACHLORIDE 0.45% 1,000 ML IV ONE (19:14)
[2020-09-17] MEDS ORDERED: FAMOTIDINE 20 MG/2 ML VIAL IV ONE (19:57)
[2020-09-17] MEDS ORDERED: METOCLOPRAMIDE 10 MG/2mL INJ ONE (20:44)
[2020-09-17 21:25] LABS: Urine Blood NEGATIVE (NEG); Urine Glucose NEGATIVE (NEG); Urine Protein NEGATIVE (NEG); Urine Specific Gravity 1.025 (1.005-1.030)
[2020-09-17 21:33] LABS: Urine Amorphous Sediment 2+ /HPF (NONE SEEN); Urine Bacteria <20 /HPF (<20); Urine Culture Reflex Order NOT NEEDED; Urine RBC NONE SEEN /HPF (NONE SEEN)
[2020-09-17] MEDS ORDERED: ACETAMINOPHEN 500 MG TAB ONE (21:45)
--- NOTE | 2020-09-17 22:13 | ER ---
Nurse's Notes [facility] Name: Suraj Fuentes Age: 29 yrs Sex: Female : 1990 Arrival Date: 09/17/2020 Time: 16:38 Bed 15 Private MD: Diagnosis: Nausea and vomiting; related conditions, unspecified, first trimester Presentation: 09/17 17:00 Chief complaint: Patient states: abd pain, n/v started today. Coronavirus screen: sv Client denies travel out of the [place] in the last 14 days. At this time, the client does not indicate any symptoms associated with coronavirus-19. Ebola Screen: No symptoms or risks identified at this time. Risk Assessment: Do you want to hurt yourself or someone else? Patient reports no desire to harm self or others. Onset of symptoms was September 17, 2020. 17:00 Method Of Arrival: Wheelchair sv 17:00 Acuity: SHAW 3 sv 17:00 Initial Sepsis Screen: Does the patient meet any 2 criteria? No. Patient's initial sv sepsis screen is negative. Does the patient have a suspected source of infection? No. Patient's initial sepsis screen is negative. Historical: - Allergies: 17:01 Ibuprofen; sv 17:01 ORANGES; sv - PMHx: 17:01 hyperemesis gravidum; Pancreatitis; sv - PSHx: 17:01 Appendectomy; ; sv - Immunization history:: Adult Immunizations up to date. - Social history:: Smoking status: Patient denies any tobacco usage or history of. Screenin:11 Abuse screen: Denies threats or abuse. Nutritional screening: No deficits noted. ll1 Tuberculosis screening: No symptoms or risk factors identified. Fall Risk IV access (20 points). Gait- Weak (10 pts.). Total Chaidez Fall Scale indicates Low Risk Score (25-44 pts). Fall prevention measures have been instituted. Side Rails Up X 2 Placed close to Nursing Station Frequent Obs/Assesments occuring Family Present and informed to notify staff if they need to leave bedside As available Patient and Family Educated on Fall Prevention Program and strategies. Assessment: 18:00 General: Appears uncomfortable, Behavior is cooperative, restless. Pain: Complains of ll1 pain in abdomen Pain currently is 10 out of 10 on a pain scale. Quality of pain is described as aching, crampy, Pain began 1 day ago. Neuro: No deficits noted. Cardiovascular: No deficits noted. Respiratory: No deficits noted. GI: Abdomen is flat, Bowel sounds present X 4 quads. Abd is soft and non tender X 4 quads. Reports lower abdominal pain, upper abdominal pain, nausea, vomiting. : No deficits noted. 19:00 Reassessment: Patient and/or family updated on plan of care and expected duration. Pain ll1 level reassessed. Patient is alert, oriented x 3, equal unlabored respirations, skin warm/dry/pink. 19:36 Reassessment: Patient appears in no apparent distress at this time. Patient and/or jb4 family updated on plan of care and expected duration. Pain level reassessed. Patient is alert, oriented x 3, equal unlabored respirations, skin warm/dry/pink. 20:25 Reassessment: Patient appears in no apparent distress at this time. Patient and/or jb4 family updated on plan of care and expected duration. Pain level reassessed. Patient is alert, oriented x 3, equal unlabored respirations, skin warm/dry/pink. PT reports feeling some better but still being nauseous. 20:40 Reassessment: PT requesting pain medication, provider notified, no new orders at this jb4 time. 21:10 Reassessment: FHT's attempted by ALFONZO Khan. Unable to obtain accurate count due to pt jb4 being unable to remain still during test. PT reports increased pain, provider notified, no new orders at this time. 21:25 Reassessment: Patient appears in no apparent distress at this time. Patient and/or jb4 family updated on plan of care and expected duration. Pain level reassessed. Patient is alert, oriented x 3, equal unlabored respirations, skin warm/dry/pink. Patient states symptoms have improved. 21:42 Reassessment: PT refused Tylenol extra strength reporting taking Tylenol #3 with jb4 codeine at home with no relief, provider notified, no new orders at this time. 22:37 Reassessment: Patient appears in no apparent distress at this time. Patient and/or jb4 family updated on plan of care and expected duration. Pain level reassessed. Patient is alert, oriented x 3, equal unlabored respirations, skin warm/dry/pink. No nausea or vomiting noted or reported. Patient states feeling better. Patient states symptoms have improved. Vital Signs: 17:00 BP 123 / 71; Pulse 85; Resp 20; Temp 97.8; Pulse Ox 98% ; sv 19:12 Pulse 60; Resp 18; Pulse Ox 98% on R/A; ll1 19:37 BP 118 / 55; Pulse 67; Resp 16; Pulse Ox 98% on R/A; jb4 20:15 BP 113 / 55; Pulse 80; Resp 16; Pulse Ox 98% on R/A; jb4 21:30 BP 135 / 80; Pulse 91; Resp 16; Pulse Ox 100% on R/A; jb4 22:30 BP 114 / 62; Pulse 72; Resp 16; Pulse Ox 100% on R/A; jb4 ED Course: 16:38 Patient arrived in ED. ds1 17:01 Triage completed. sv 17:01 Arm band placed on. sv 17:40 Inserted saline lock: 22 gauge in right antecubital area, using aseptic technique. ll1 Blood collected. 17:49 Bill Hudson, ALFONZO is Primary Nurse. ll1 17:56 Pancho Pryor PA is PHCP. cp 17:56 Zane Herring MD is Attending Physician. cp 19:11 Patient has correct armband on for positive identification. Placed in gown. Bed in low ll1 position. Call light in reach. Side rails up X 1. Pulse ox on. NIBP on. 21:22 Urine collected: clean catch specimen, clear, ham colored. jp3 21:23 Urine Microscopic Only Sent. jp3 21:52 Urine Dipstick--Ancillary (enter results) Sent. jp3 22:39 No provider procedures requiring assistance completed. IV discontinued, intact, jb4 bleeding controlled, No redness/swelling at site. Pressure dressing applied. Administered Medications: 18:21 Drug: Bentyl 20 mg Route: IM; Site: left gluteus; ll1 18:22 Drug: Benadryl 25 mg Route: IM; Site: right gluteus; ll1 18:22 Drug: NS 0.9% 1000 ml Route: IV; Rate: 1 bolus; Site: right antecubital; ll1 18:22 Not Given (Patient Refused): Phenergan Suppository 25 mg MO once ll1 18:27 Drug: Phenergan 25 mg Route: IVP; Site: right antecubital; ll1 20:00 Follow up: Response: No adverse reaction; No change in condition jb4 19:43 Not Given (Physician Discretion): Reglan 10 mg IVP once; over 1 to 2 minutes cp 19:46 Not Given (Other Intervention Used): Benadryl 12.5 mg IVP once jb4 19:55 Drug: Pepcid 20 mg Route: IVP; Site: right antecubital; jb4 21:21 Follow up: Response: No adverse reaction jb4 19:55 Drug: Benadryl 25 mg Route: IVP; Site: right antecubital; jb4 20:30 Follow up: Response: No adverse reaction; Marked relief of symptoms; Vomiting decreased jb4 20:24 Drug: NS 0.45 % 1000 ml Route: IV; Rate: bolus; Site: right antecubital; jb4 22:41 Follow up: Response: No adverse reaction; IV Status: Completed infusion jb4 20:43 Drug: Reglan 10 mg Route: IVP; Site: right antecubital; jb4 21:21 Follow up: Response: No adverse reaction; Marked relief of symptoms; Nausea is jb4 decreased; Vomiting decreased 21:41 Not Given (Patient Refused; PT reports having tylenol 3 at home and taking it and that jb4 Tylenol extra strength will not help.): Tylenol 1000 mg PO once Outcome: 22:12 Discharge ordered by MD. cp 22:39 Discharged to home ambulatory, with family. jb4 22:39 Condition: stable 22:39 Discharge instructions given to patient, family, Instructed on discharge instructions, follow up and referral plans. medication usage, Demonstrated understanding of instructions, follow-up care, medications, Prescriptions given X 2. 22:41 Patient left the ED. jb4 Signatures: Brittney Andino RN RN sv Sanford, Demi ds1 Pancho Pryor PA PA cp Bryson, James, RN RN jb4 Kunal Scott jp3 Bill Hudson RN RN ll1 Corrections: (The following items were deleted from the chart) 17:03 17:00 Pulse 85bpm; Resp 20bpm; Pulse Ox 98%; Temp 97.8F; sv sv 19:53 19:10 General: Appears uncomfortable, Behavior is cooperative, restless, ll1 ll1 19:53 19:10 Pain: Complains of pain in abdomen Pain currently is 10 out of 10 on a pain ll1 scale. Quality of pain is described as aching, crampy, Pain began 1 day ago. [facility] 19:10 Neuro: No deficits noted. 1 [facility] 19:10 Cardiovascular: No deficits noted. 1 [facility] 19:10 Respiratory: No deficits noted. [place] [id number] 19:10 GI: Abdomen is flat, Bowel sounds present X 4 quads. Abd is soft and non tender X ll1 4 quads. Reports lower abdominal pain, upper abdominal pain, nausea, vomiting, [facility] 19:10 : No deficits noted. [place] [id number] 21:52 21:52 URINE --ANCILLARY+UC.LAB.BRZ drawn and sent. jp3 EDMS
--- NOTE | 2020-09-17 22:13 | EDPHYS ---
Physician Documentation [facility] Name: Suraj Fuentes Age: 29 yrs Sex: Female : 1990 Arrival Date: 09/17/2020 Time: 16:38 Bed 15 Private MD: ED Physician Zane Herring HPI: 09/17 18:10 This 29 yrs old Female presents to ER via Wheelchair with complaints of cp Nausea/Vomiting, Abdominal Pain. 18:10 The patient presents to the emergency department with nausea. cp 18:10 Possible causes: . cp 18:10 Onset: The symptoms/episode began/occurred chronic. Patient has been seen in this ED on cp multiple occasions for nausea, vomiting and abdominal pain associated with this . Patient denies vaginal bleeding, denies leakage of fluids. Historical: - Allergies: 17:01 Ibuprofen; sv 17:01 ORANGES; sv - PMHx: 17:01 hyperemesis gravidum; Pancreatitis; sv - PSHx: 17:01 Appendectomy; ; sv - Immunization history:: Adult Immunizations up to date. - Social history:: Smoking status: Patient denies any tobacco usage or history of. ROS: 18:20 Constitutional: Positive for poor PO intake, Negative for body aches, chills, fever. cp 18:20 Eyes: Negative for injury, pain, redness, and discharge. cp 18:20 ENT: Negative for ear pain, difficulty swallowing, difficulty handling secretions. 18:20 Cardiovascular: Negative for chest pain. 18:20 Respiratory: Negative for cough, shortness of breath, wheezing. 18:20 Abdomen/GI: Positive for abdominal pain, nausea and vomiting, anorexia, Negative for diarrhea, constipation, hematemesis, black/tarry stool. 18:20 Back: Negative for radiated pain. 18:20 : Negative for urinary symptoms, vaginal bleeding, vaginal discharge. 18:20 Neuro: Negative for altered mental status, headache. 18:20 All other systems are negative. Exam: 18:25 Constitutional: The patient appears in no acute distress, alert, awake, non-toxic, well cp developed, well nourished. 18:25 Head/Face: Normocephalic, atraumatic. cp 18:25 Eyes: Periorbital structures: appear normal, Conjunctiva: normal, no exudate, no injection, Sclera: no appreciated abnormality, Lids and lashes: appear normal, bilaterally. 18:25 ENT: External ear(s): are unremarkable, Nose: is normal, Mouth: Lips: moist, Oral mucosa: moist, Posterior pharynx: Airway: no evidence of obstruction, patent. 18:25 Chest/axilla: Inspection: normal. 18:25 Cardiovascular: Rate: normal, Rhythm: regular. 18:25 Respiratory: the patient does not display signs of respiratory distress, Respirations: normal, no use of accessory muscles, no retractions, labored breathing, is not present, Breath sounds: are clear throughout, no decreased breath sounds, no stridor, no wheezing. 18:25 Abdomen/GI: Inspection: abdomen appears normal, Bowel sounds: active, all quadrants, Palpation: soft, in all quadrants, moderate abdominal tenderness, in all quadrants, rebound tenderness, is not appreciated. 18:25 Back: CVA tenderness, is absent. 18:25 Neuro: Orientation: to person, place \T\ time. Mentation: is normal. Vital Signs: 17:00 BP 123 / 71; Pulse 85; Resp 20; Temp 97.8; Pulse Ox 98% ; sv 19:12 Pulse 60; Resp 18; Pulse Ox 98% on R/A; ll1 19:37 BP 118 / 55; Pulse 67; Resp 16; Pulse Ox 98% on R/A; jb4 20:15 BP 113 / 55; Pulse 80; Resp 16; Pulse Ox 98% on R/A; jb4 21:30 BP 135 / 80; Pulse 91; Resp 16; Pulse Ox 100% on R/A; jb4 22:30 BP 114 / 62; Pulse 72; Resp 16; Pulse Ox 100% on R/A; jb4 MDM: 18:03 Patient medically screened. cp 21:35 Data reviewed: vital signs, nurses notes, lab test result(s). cp 22:10 Response to treatment: the patient's symptoms have markedly improved after treatment, cp VSS. Nausea improved and vomiting resolved. Will discharge to home for continued monitoring. 09/17 18:01 Order name: Basic Metabolic Panel; Complete Time: 18:50 cp 09/17 18:50 Interpretation: Normal except: CL 108; BUN 5. cp 09/17 18:01 Order name: CBC with Diff; Complete Time: 18:50 cp 09/17 18:51 Interpretation: ANGELITO% 75.2. cp 09/17 18:01 Order name: Hepatic Function; Complete Time: 18:50 cp 09/17 18:51 Interpretation: Normal except: AST 13. cp 09/17 18:01 Order name: Lipase; Complete Time: 18:50 cp 09/17 18:53 Interpretation: LIP 45; Reviewed. cp 09/17 18:55 Order name: Urine Microscopic Only cp 09/17 21:24 Order name: Urine Dipstick--Ancillary (enter results) mw2 09/17 21:24 Order name: Urine Dipstick-Ancillary; Complete Time: 21:30 EDMS 09/17 21:24 Order name: Urine --Ancillary; Complete Time: 21:30 EDMS 09/17 18:01 Order name: IV Saline Lock; Complete Time: 18:22 cp 09/17 18:01 Order name: Labs collected and sent; Complete Time: 18:22 cp 09/17 18:02 Order name: Urine Dipstick-Ancillary (obtain specimen); Complete Time: 21:21 cp 09/17 18:02 Order name: FHT's; Complete Time: 21:21 cp 09/17 18:55 Order name: PO challenge; Complete Time: 21:42 cp Administered Medications: 18:21 Drug: Bentyl 20 mg Route: IM; Site: left gluteus; ll1 18:22 Drug: Benadryl 25 mg Route: IM; Site: right gluteus; ll1 18:22 Drug: NS 0.9% 1000 ml Route: IV; Rate: 1 bolus; Site: right antecubital; ll1 18:22 Not Given (Patient Refused): Phenergan Suppository 25 mg [place] once ll1 18:27 Drug: Phenergan 25 mg Route: IVP; Site: right antecubital; ll1 20:00 Follow up: Response: No adverse reaction; No change in condition jb4 19:43 Not Given (Physician Discretion): Reglan 10 mg IVP once; over 1 to 2 minutes cp 19:46 Not Given (Other Intervention Used): Benadryl 12.5 mg IVP once jb4 19:55 Drug: Pepcid 20 mg Route: IVP; Site: right antecubital; jb4 21:21 Follow up: Response: No adverse reaction jb4 19:55 Drug: Benadryl 25 mg Route: IVP; Site: right antecubital; jb4 20:30 Follow up: Response: No adverse reaction; Marked relief of symptoms; Vomiting decreased jb4 20:24 Drug: NS 0.45 % 1000 ml Route: IV; Rate: bolus; Site: right antecubital; jb4 22:41 Follow up: Response: No adverse reaction; IV Status: Completed infusion jb4 20:43 Drug: Reglan 10 mg Route: IVP; Site: right antecubital; jb4 21:21 Follow up: Response: No adverse reaction; Marked relief of symptoms; Nausea is jb4 decreased; Vomiting decreased 21:41 Not Given (Patient Refused; PT reports having tylenol 3 at home and taking it and that jb4 Tylenol extra strength will not help.): Tylenol 1000 mg PO once Disposition: 09/18 07:38 Co-signature as Attending Physician, Zane Herring MD. rn Disposition: 09/17/20 22:12 Discharged to Home. Impression: Nausea and vomiting, related conditions, unspecified, first trimester. - Condition is Stable. - Discharge Instructions: Abdominal Pain During , Nausea and Vomiting, Adult, First Trimester of . - Prescriptions for Phenergan 25 mg Rectal Suppository - insert 1 suppository by RECTAL route every 6 hours As needed; 12 suppository. promethazine 25 mg Oral Tablet - take 1 tablet by ORAL route every 6 hours As needed; 20 tablet. - Medication Reconciliation Form, Thank You Letter, Antibiotic Education, Prescription Opioid Use form. - Follow up: Private Physician; When: 1 - 2 days; Reason: Recheck today's complaints. - Problem is an ongoing problem. - Symptoms have improved. Signatures: Dispatcher [employer] [facility] Brittney Andino RN RN sv Nieto, Roman, MD MD rn Page, Corey, PA PA cp Bryson, James, RN RN jb4 Bill Hudson RN RN ll1 Corrections: (The following items were deleted from the chart) 09/17 21:52 21:24 URINE --ANCILLARY+UC.LAB.BRZ ordered. [facility] 22:41 22:12 09/17/2020 22:12 Discharged to Home. Impression: Nausea and vomiting; jb4 related conditions, unspecified, first trimester. Condition is Stable. Forms are Medication Reconciliation Form, Thank You Letter, Antibiotic Education, Prescription Opioid Use. Follow up: Private Physician; When: 1 - 2 days; Reason: Recheck today's complaints. Problem is an ongoing problem. Symptoms have improved. cp
[2020-09-17 22:58] VITALS: TEMP 97.8
[2020-09-17 23:10] VITALS: O2SAT 100
[2020-09-17 23:12] VITALS: BP 114/62
== END 2020-09-17 22:41 | disposition home or self-care (01) ==
LOC: ER 16:38
DX: O21.0 Mild hyperemesis gravidarum (principal); Z3A.00 Weeks of gestation of pregnancy not specified; Z88.6 Allergy status to analgesic agent; Z91.018 Allergy to other foods
CPT/HCPCS: 96361; 85025; 80048; 36415; 81025; 80076; 83690; 96375; 96372; 96374; 99284; J2765; J2550; J0500; J1200 ×2; J7030; 81003; 81015

== ENCOUNTER 2020-09-24 08:15 | Emergency (ER) | payer MEDICAID ==
--- OUTSIDE RECORDS SUMMARY | 2020-09-24 08:17 | XMS REPORT | Continuity of Care Document ---
:1990 Author Organization [facility] t Address [address] [place] [address] Care Team Providers Name Role Phone Doctor Unassigned, Name Attending Clinician Unavailable Shirin FRANKLIN, Keerthi Attending Clinician Kevin FRANKLIN Attending Clinician Akinsisushma WHCNP, C Attending Clinician Jim SCOOP DRIVER, R Attending Clinician Kevin FRANKLIN Admitting Clinician Problems This patient has no known problems. Allergies, Adverse Reactions, Alerts This patient has no known allergies or adverse reactions. Medications This patient has no known medications. Procedures This patient has no known procedures. Encounters Start End Encounter Admission Attending Care Care Encounter Source Date/Time Date/Time Type Type Clinicians Facility Department ID 2020-09-20 2020-09-20 Orders Doctor EDUARDO [id number] 00:00:00 00:00:00 Only UnassignedSRAVAN [id number] Cool [facility] [id number] 2020-09-09 2020-09-10 [facility] Marcelo Carpio [id number] 19:39:00 16:45:00 Encounter Karlie Brown [id number] [facility] [id number] 2020-09-09 2020-09-09 Telephone Vitaliy [facility] [id number] 00:00:00 00:00:00 Graciela C HOSPITAL CHIEF FINANCIAL OFFICER [id number] REGIONAL [id number] MATERNAL [id number] & CHILD 107 [facility] 2020-09-09 2020-09-09 [place] [facility] [id number] 00:00:00 00:00:00 Roshunda R HOSPITAL CHIEF FINANCIAL OFFICER [id number] [facility] [id number] MATERNAL [id number] & CHILD 107 [facility] 2020-09-08 2020-09-08 Routine [facility] [id number] 10:23:36 11:14:26 Roshunda R HOSPITAL CHIEF FINANCIAL OFFICER [id number] Visit REGIONAL [id number] MATERNAL [id number] & CHILD 107 [facility] 2020-09-08 2020-09-08 [place] [facility] [id number] 00:00:00 00:00:00 Roshunda R HOSPITAL CHIEF FINANCIAL OFFICER [id number] [facility] [id number] MATERNAL [id number] & CHILD 107 [facility] 2020-09-07 2020-09-07 [place] [facility] [id number] 00:00:00 00:00:00 Roshunda R HOSPITAL CHIEF FINANCIAL OFFICER [id number] REGIONAL [id number] MATERNAL [id number] & CHILD 107 [facility] Results This patient has no known results.
--- OUTSIDE RECORDS SUMMARY | 2020-09-24 08:22 | XMS REPORT | Summary of Care ---
:1990 Author Organization [facility] Address [address] [place] [address] Care Team Providers Name Role Phone Manjit E Insurance [employer] Lauren Fernandez [facility] Primary Care Provider Reason for Visit Reason Comments Assessment wanting to terminate pregnan cy Encounter Details Date Type Department Care Team Description 08/26/2020 Telephone [facility]- Cornelius Fernandez, As sessment (wanting to [facility] terminate ) [address] [facility] [address] [place] [address] [place], [place] [phone] Allergies Active Allergy Reactions Severity Noted Date Comments Ibuprofen Hives 04/15/2014 [place] Hives 04/15/2014 Sodium Citrate (Bulk) Nausea and/or Vomiting 9 documented as of this encounter (statuses as of 08/26/2020) Medications Medication Sig Dispensed Refills Start Date End Date Status ondansetron HCl Take by mouth. 0 Active (ZOFRAN ORAL) vit Take 1 Packet by 30 Each 6 08/03/2020 Active 26-buvw-jokbn-dha mouth daily. 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 documented as of this encounter (statuses as of 08/26/2020) Immunizations Name Administration Dates Next Due HPV9 06/04/2016 MMR 12/20/2018 (Deferred: - not available f [facility]) TDAP 04/06/2015 TDAP (ADACEL) [...] 08/31/2020 Routine Visit [facility] [employer]ell[employer] Lauren Fernandez, [employer]ARY [employer]ER [employer] [address] [place] [id number] [phone] Health Maintenance Due Date Last Done Comments [...] Address T ype Group Dates ASIA BETANCOURT [id number] 2018-Anupama [address] [place] [id number] MANA[place]ED [place], [place] documented as of this encounter Advance Directives Type Date Recorded Patient Qc Chemist Explanati on Advance Directives and Living Will Power of Superintendent [place] Name Relationship Healthcare Agent Relationship Co mmunication Floyd Brown Father Health Care Agent Preet Coffey Other Health Care Agent [place] Fuentes Spouse [facility] [phone] Agent (Mobile)
--- OUTSIDE RECORDS SUMMARY | 2020-09-24 08:22 | XMS REPORT | Summary of Care ---
:1990 Author Organization [facility] - Health Address [address] [place] [address] Care Team Providers Name Role Phone Gamal Saravia Insurance Hmo Lauren Fernandez Primary Care Provider Reason for Referral (Routine) Status Reason Specialty Diagnoses / Referred By Referred To Procedures Contact Contact New Request OG-OBSTETRICS & Diagnoses Nausea and vomiting during Aufderheide, Leann GYNECOLOGY Procedures Discharge Follow-Up: Specialty Service OG-OBSTETRICS & GYNECOLOGY; 3-5 Days MD Merna [address] [place] [address]. [place] [address] Reason for Visit Reason Comments Abdominal Pain Vomiting Auth/Cert Status Reason Specialty Diagnoses / Referred By Referred To Procedures Contact Contact Emergency Medicine [facility] rgency Dept [address] [place] [phone] Fax: Encounter Details Date Type Department Care Team Description 08/28/2020 - Emergency [facility] Monika Allen MD [address] [place] [phone] Abdominal pain during in first trimester (Primary Dx); 08/29/2020 Department Anthonyerjessi, Leann Bauman MD [address] [place] [phone] Nausea and vomiting during [address] [place] [phone] Allergies Active Allergy Reactions Severity Noted Date Comments Ibuprofen Hives 04/15/2014 [place] Hives 04/15/2014 Sodium Citrate (Bulk) Nausea and/or Vomiting 9 documented as of this encounter (statuses as of 08/29/2020) Medications Medication Sig Dispensed Refills Start Date End Date Status ondansetron HCl Take by mouth. 0 Active (ZOFRAN ORAL) vit Take 1 Packet by 30 Each 6 08/03/2020 Active 11-sbah-zbupd-dha mouth daily. 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 SCHEDULE AN APPOINTMENT ONLINE AT [email or web address] 2. OR CALL THE [facility] AT OR 3. OR CALL YOUR [facility] PHYSICIAN'S OFFICE DIRECTLY IF YOU ARE ALREADY AN ESTABLISHED [facility] PATIENT. RETURN TO ER FOR WORSENING [...] site, catheter intact. Patient [facility] accompanied by visitors x2, in possession [...] - 08/28/2020 11:47 PM CDT[facility] - Ada Bush RN [...] cough, SOB. . Patient was seen in [place] for same complaint, patient's s/o states "they [...] 08/31/2020 Routine Visit OB Satellites Lauren Fernandez, KINESIOLOGY PROFESSOR [address] [address] [phone] Health Maintenance Due Date Last Done Comments [...] Abdominal pain Re sults for this PANEL (49494) CD[facility] (ALB,T.PRO,BILI first trimester the resul ts T,BU/BC,ALT,AST,ALK section. PHOS) documented in this encounter Results Urinalysis (08/29/2020 12:26 AM CDT) Pathologist Sig nature APPEARANCE Clear Clear [facility] COLOR Trudi (A) Yellow [facility] PH 7.0 4.8 - 8.0 [facility] SP GRAVITY 1.030 1.003 - 1.030 [facility] GLU U QUAL Normal Normal [facility] BLOOD Negative Negative [facility] KETONES 80 mg/dL (A) Negative [facility] PROTEIN 30 mg/dL (A) Negative [facility] UROBILIN 2.0 mg/dL (A) Normal [facility] BILIRUBIN Negative Negative [facility] NITRITE Negative Negative [facility] LEUK HO Negative Negative [facility] RBC/HPF 3 0 - 3 HPF [facility] WBC/HPF 3 0 - 5 HPF [facility] BACTERIA Negative Negative [facility] MUCOUS Marked (A) Negative LPF [facility] SQ EPITH 4 (H) <=2 HPF [facility] Specimen Urine - URINE, CLEAN CATCH Performing Organization Address City/State/Zipcode Phone Number [facility] CLIA: [id number] [place], [place] [address] [place], [place] [address]vd TOTAL BHCG (QUANTITATIVE) (08/28/2020 10:08 PM CDT) Pathologist Sig nature BETA HCG 140,720.00 Non- female [facility] and male patients: SERVICES <5 mIU/mL Specimen Blood - VENOUS Narrative Performed At [facility] Gestational Age Rang e (mIU/mL) 1-10 Weeks 4 [phone] 11-15 Weeks 11 [phone] 16-22 Weeks 74 [phone] 23-40 Weeks 15 [phone] Biotin has been reported to cause a negative bias, int erpret results relative to patient's use of biotin. Performing Organization Address City/[facility] Centercode Phone Number [facility] CLIA: [id number] [place] [address] [place] [address] Hepatic Function Panel (ALB, T.PRO, BILI T, BU/BC, ALT, AST, ALK PHOS) (08/28/2020 10:08 PM CDT) Pathologist Sig nature TOTAL BILI 0.7 0.1 - 1.1 mg/dL [facility] BILI UNCON 0.9 0.1 - 1.1 mg/dL [facility] BILI CONJ 0.0 0.0 - 0.3 mg/dL [facility] T PROTEIN 6.8 6.3 - 8.2 g/dL [facility] ALBUMIN 4.1 3.5 - 5.0 g/dL [facility] ALK PHOS 56 34 - 122 U/L [facility] ALTv 21 5 - 35 U/L [facility] AST(SGOT) 20 13 - 40 U/L [facility] Specimen Blood - VENOUS Performing Organization Address City/[facility]/Zipcode Phone Number [facility] CLIA: [id number] [place] [id number] [place] [address] Basic Metabolic Panel (NA, K, CL, CO2, GLUCOSE, BUN, CREATININE, CA) (08/28/2020 10:08 PM CDT) NA 139 135 - 145 [facility] mmol/L SERVICES K 3.4 (L) 3.5 - 5.0 [facility] mmol/L SERVICES CL 108 98 - 108 mmol/L [facility] SERVICES CO2 TOTAL 21 (L) 23 - 31 mmol/L [facility] AGAP 10 2 - 16 [facility] BUN 7 7 - 23 mg/dL [facility] GLUCOSE 99 70 - 110 mg/dL [facility] CREATININE 0.49 (L) 0.50 - 1.04 [facility] mg/dL SERVICES CALCIUM 9.0 8.6 - 10.6 [facility] mg/dL SERVICES eGFR Calculation 149.3 mL/min/1.73m2 [facility] (Non- SERVICES Irish) eGFR Calculation 181.0 mL/min/1.73m2 [facility] () SERVICES Specimen Blood - VENOUS Narrative Performed At Association of Glomerular Filtration Rate (GFR) and St aging [facility] SERVICES of Kidney Disease* + [...] . Performing Organization Address City/State/Zipcode Phone Number [facility] CLIA: [id number] [place] [address] [place] [address] CBC with Differential (08/28/2020 10:08 PM CDT) Pathologist Sig nature WBC 8.57 4.30 - 11.10 [facility] 10*3/L SERVICES RBC 4.62 3.93 - 5.25 [facility] 10*6/L SERVICES HGB 14.5 11.6 - 15.0 [facility] g/dL SERVICES HCT 40.7 35.7 - 45.2 % [facility] MCV 88.1 80.6 - 95.5 fL [facility] MCH 31.4 25.9 - 32.8 pg [facility] MCHC 35.6 (H) 31.6 - 35.1 [facility] g/dL SERVICES RDW-SD 38.5 (L) 39.0 - 49.9 fL [facility] RDW-CV 12.0 12.0 - 15.5 % [facility] PLT 187 166 - 358 [facility] 10*3/L SERVICES MPV 9.8 9.5 - 12.9 fL [facility] NRBC/100 WBC 0.0 0.0 - [...] VENOUS Performing Organization Address City/State/Zipcode Phone Number [facility] CLIA: [id number] [place] [address] [place] [address] documented in this encounter Visit Diagnoses Diagnosis [...] / Subscriber ID Effective Phone Address T [facility] Group Dates ASIA BETANCOURT [id number] 2018-Anupama [place] Medic [place] [id number] MA[place] MED[place] documented as of this encounter Advance Directives Type Date Recorded 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
--- OUTSIDE RECORDS SUMMARY | 2020-09-24 08:23 | XMS REPORT | Summary of Care ---
:1990 Author Organization [facility] Address [address] [place] [address] Care Team Providers Name Role Phone Gamal Saravia Insurance Hmo Lauren Fernandez PCT Primary Care Provider Reason for Visit Reason Comments Assessment vomit Encounter Details Date Type Department Care Team Description 09/06/2020 Telephone [facility]- Cornelius Fernandez, As sessment (vomit) [facility] [address] [facility] [address] [place] [address] [place] [address] [phone] Allergies Active Allergy Reactions Severity Noted Date Comments Ibuprofen Hives 04/15/2014 [place] Hives 04/15/2014 Sodium Citrate (Bulk) Nausea and/or Vomiting 9 documented as of this encounter (statuses as of 09/06/2020) Medications Medication Sig Dispensed Refills Start Date End Date Status vit Take 1 Packet by 30 Each 6 08/03/2020 Active 85-yjdg-nxuku-dha mouth daily. 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 Utility Encounter for IUD removal and reinsertion [...] management 01/25/2015 05/20/2018 Overview: ICD10 Diagnosis Term Extension Supervisor Utility Breast tenderness in female 01/25/2015 05/20/2018 Not immune to rubella 04/16/2014 06/04/2016 Overview: ICD10 Diagnosis Term Extension Supervisor Utility documented as of this encounter (statuses [...] Patient stated she went to [facility] 08/28/20 for N/V and has received [...] has been loosing weight , please call [phone] (home) documented in this encounter Plan of Treatment Date Type Specialty Care Team Description 09/08/2020 Routine Visit OB Satellites Lauren Fernandez FNP [address] [address] [phone] Health Maintenance Due Date Last Done Comments [...] Address T e Group Dates ASIA BETANCOURT [id number] 2018-Anupama P [address] BOX Medic [place] [phone] MA[place] MED[place] documented as of this encounter Advance Directives Type Date Recorded Patient Weaver Wire Loom Explanati on Advance Directives and Living Will Power of Hand Mold Maker Name Relationship Healthcare Agent Relationship Co mmunication Floyd Brown Father Health Care Agent Preet Coffey Other Health Care Agent [place] Fuentes Spouse First [facility] [phone] Agent (Mobile)
--- OUTSIDE RECORDS SUMMARY | 2020-09-24 08:23 | XMS REPORT | Summary of Care ---
:1990 Author Organization [facility] Address [address] [place] [address] Care Team Providers Name Role Phone Gamal Saravia Insurance Hmo Lauren Fernandez PURCHASING ANALYST Primary Care Provider Reason for Visit Reason Comments Assessment vomit Encounter Details Date Type Department Care Team Description 09/06/2020 Telephone [facility]- Cornelius Fernandez, As sessment (vomit) [facility] 1108 [facility] [address] [place] [address] [place] [address] [phone] Allergies Active Allergy Reactions Severity Noted Date Comments Ibuprofen Hives 04/15/2014 [place] Hives 04/15/2014 Sodium Citrate (Bulk) Nausea and/or Vomiting 9 documented as of this encounter (statuses as of 09/06/2020) Medications Medication Sig Dispensed Refills Start Date End Date Status vit Take 1 Packet by 30 Each 6 08/03/2020 Active 20-kqjc-pcehs-dha mouth daily. 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 Encounter for IUD removal and [...] management 01/25/2015 05/20/2018 Overview: ICD10 Diagnosis Term Motor Assembly Supervisor Utility Breast tenderness in female 01/25/2015 05/20/2018 Not immune to rubella 04/16/2014 06/04/2016 Overview: ICD10 Diagnosis Term Motor Assembly Supervisor Utility documented as of this encounter (statuses as of 09/06/2020) Immunizations Name Administration Dates Next Due HPV9 06/04/2016 MMR 12/20/2018 (Deferred: - not available f [facility]) TDAP 04/06/2015 TDAP (ADACEL) [...] old female Patient stated she went to [facility] 08/28/20 for N/V and has [...] has been loosing weight , please call [phone] (home) documented in this encounter Plan of Treatment Date Type Specialty Care Team Description 09/08/2020 Routine Visit OB Satellites Lauren Fernandez FNP [address] [address] [phone] Health Maintenance Due Date Last Done Comments [...] Address T e Group Dates ASIA BETANCOURT [id number] 2018-Anupama P [address] BOX Medic [place] [id number] [place] MED[place] documented as of this encounter Advance Directives Type Date Recorded Patient Promotions Firm Accounts Manager Explanati on Advance Directives and Living Will Power of Net Developer Programmer Name Relationship Healthcare Agent Relationship Co mmunication Floyd Brown Father Health Care Agent Preet Coffey Other Health Care Agent [place] Fuentes Spouse First [facility] Health Care Agent (Mobile)
--- OUTSIDE RECORDS SUMMARY | 2020-09-24 08:23 | XMS REPORT | Summary of Care ---
:1990 Author Organization [facility] Address [address] [place] [address] Care Team Providers Name Role Phone Gamal Saravia Insurance Hmo Lauren Fernandez NUTRITION FACULTY MEMBER Primary Care Provider Reason for Visit Reason Comments Assessment vomit Encounter Details Date Type Department Care Team Description 09/06/2020 Telephone [facility]- Cornelius Fernandez, As sessment (vomit) [facility] 1108 [facility] [address] [place] [address] [place] [address] [phone] Allergies Active Allergy Reactions Severity Noted Date Comments Ibuprofen Hives 04/15/2014 [place] Hives 04/15/2014 Sodium Citrate (Bulk) Nausea and/or Vomiting 9 documented as of this encounter (statuses as of 09/06/2020) Medications Medication Sig Dispensed Refills Start End Date Status Date vit Take 1 Packet by 30 Each 6 Active 88-qych-lfilz-dha mouth daily. 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 Utility Encounter for IUD removal and reinsertion 01/18/2015 ASCUS on Pap smear 04/15/2014 Estimated Date of Delivery Comments Yes 04/11/2021 Based on Ultrasound, FHT: 127, Transverse Presentation, Placen ta Too early to evaulate documented as of this encounter (statuses as of 09/06/2020) Resolved Problems Problem Noted Date Resolved Date 37 weeks gestation of 12/18/2018 01/08/20 19 [place] Hick's contraction 12/12/2018 01/08/2019 Abnormal maternal glucose [...] management 01/25/2015 05/20/2018 Overview: ICD10 Diagnosis Term 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 08/28/20 for N/V and has received fluids [...] has been loosing weight , please call [phone] (home) documented in this encounter Plan of Treatment Date Type Specialty Care Team Description 09/08/2020 Routine Visit OB Satellites Lauren Fernandez, NUTRITION FACULTY MEMBER [address] [address] [phone] Health Maintenance Due Date Last Done Comments [...] Address T e Group Dates ASIA BETANCOURT [id number] 2018-Anupama Cam[place] O BOX Medic [place] [phone] MA[place] MED[place] documented as of this encounter Advance Directives Type Date Recorded Patient Junior Sales Assistant Explanati on Advance Directives and Living Will Power of Environment Artist Name Relationship Healthcare Agent Relationship Co mmunication Floyd Brown Father Health Care Agent Preet Coffey Other Health Care Agent [place] Fuentes Spouse First [facility] [phone] Agent (Mobile)
--- OUTSIDE RECORDS SUMMARY | 2020-09-24 08:23 | XMS REPORT | Summary of Care ---
:1990 Author Organization [facility] - [facility] Address [address] [place] [address] Care Team Providers Name Role Phone Gamal Saravia Insurance Hmo Lauren Fernandez Primary Care Provider Reason for Referral (Routine) Status Reason Specialty Diagnoses / Referred By Referred To Procedures Contact Contact New Request Diagnoses Hyperemesis gravidarum Marisel Galvan, Procedures Discharge Follow-Up: Clean Out Driller Lorena FRANKLIN [address] [place], [place] [id number] Reason for Visit Auth/Cert Status Reason Specialty Diagnoses / Procedures Referred By Lauren marquez To Contact Contact Obstetrics Diagnoses 7wks IUP hyperemesis J10c [address] [place] [id number] Phone: Fax: Encounter Details Date Type Department Care Team Description 08/30/2020 - Hospital Encounter Obstetrics and Jad Isaacs ea and vomiting 09/01/2020 Gynecology (J10C) MD Tyler during [address] [place] [id number] [phone] Allergies Active Allergy Reactions Severity Noted Date Comments Ibuprofen Hives 04/15/2014 [place] Hives 04/15/2014 Sodium Citrate (Bulk) Nausea and/or Vomiting 9 documented as of this encounter (statuses as of 09/01/2020) Medications Medication Sig Dispensed Refills Start End Date Status Date vit Take 1 Packet by 30 Each 6 Active 60-xmdq-ueccq-dha mouth daily. 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 Encounter for IUD removal and reinsertion 01/18/2015 ASCUS on Pap smear 04/15/2014 Estimated Date of Delivery Comments Yes 04/11/2021 Based on Ultrasound, FHT: 127, Transverse Presentation, Placen ta Too early to evaulate documented as of this encounter (statuses as of 09/01/2020) Resolved Problems Problem Noted Date Resolved Date 37 weeks gestation of 12/18/2018 01/08/20 19 [place] Hick's contraction 12/12/2018 01/08/2019 Abnormal maternal glucose [...] management 01/25/2015 05/20/2018 Overview: ICD10 Diagnosis Term 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 Diet, [place] (Adult) (Macanese)documented in this encounter Progress Notes Major Velasquez [...] mL IV piggyback 25 mg IV Piggyback [id number] mg at 09/01/20 0552 pyridoxine (VITAMIN B-6) [...] 08/28/2020 21 No results found for: URICACID, [id number] No results found for: LDH Assessment/Plan: Suraj [...] tolerate PO for over 2 days - [place] ED Course: s/p 2L NS bolus, IV 4mg zofran, 12.5 benadryl, 20mg Pepcid, 12.5 phenergan, refused second phenergan dose so given Reglan 10mg, 20mEq KCLrepletion - OSH labs remarkable for K 3.2, Cr 0.72, LFT WNL, lipase 59, Udip with 2+ ketone -Patient reports severe nausea, dry heaving noted in triage - Upon transfer to [facility], P 80s, BP 120/60s - Repeat UA [...] presentation at 37w - Documented LTCS at [facility] - Desires possible Hx PTD - G1 at 34w - G2 at 36w COVID-19 SCREEN: Lab Results Component Value Date/Time COVID19 Not Detected 08/30/2020 11:37 PM Antepartum course reviewed - seronegative, Rnot immune, VZVnot immune,A positive/IATnegative, GBSunk, PapASCUS 11/2017, neg HRHPV, needs repeat cotesting in 3 years - H/H, plt:14.5/ 40.7,187on 08/28/20 [facility] [id number] bpm via M mode on admission BSUS Major Velasquez MD 09/01/2020 Associated attestation - Marisel Galvan MD - 09/01/2020 10:40 AM CDT I was rounding [facility] faculty for this patient and [...] presentation at 37w - Documented LTCS at [facility] - Desires possible Hx PTD - G1 at 34w - G2 at 36w COVID-19 SCREEN: Lab Results Component Value Date/Time COVID19 Not Detected 08/30/2020 11:37 PM Antepartum course reviewed - sero negative, Rnot immune, VZVnot immune, A positive/IAT negative, GBS unk, Pap ASCUS 11/2017, negHRHPV, needs repeat cotesting in 3 years - H/H, plt: 14.5 / 40.7, 187 on 08/28/20 - [facility] - FHT 171-178 bpm via M mode on admission BSUS Major Velasquez MD - 08/31/2020 1:15 PM CDTJamiee Luly Fuentes [id number] 08/31/2020 1:15 PM Post-Rounds: - daily BMP [...] Physician: Cornelius Fernandez CHIEF COMPLAINT Transfer from [facility] ED HISTORY OF PRESENT ILLNESS Suraj Fuentes is a 29 year old at 8w0d who was transferred from [facility] ED for nausea and vomiting [...] for over 2 days. She went to [place] ED earlier this week (3-4 days ago), then presented to [facility] ED Saturday night.She was given 1L bolus, IV zofran, IV phenergan, and reglan, PO challenged with water/crackers, thensent home with renewed eRx vitamin B6. Reports PO zofran and Reglan not helping right now, therefore went to [facility] earlier this [facility]. [facility] Course: Afebrile, Pulse 71-86, BP 110-130/60-80s [...] Manny Gray; Location: Labor and Delivery - [place] Past Medical History: Diagnosis Date Abnormal maternal [...] Oral Q6H Allergies and drug reactions: Ibuprofen, [place], and Sodium citrate (bulk) HOME MEDICATIONS Medications [...] (ZOFRAN ORAL) Take by mouth. 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 Resolved Hospital Problems No resolved [...] tolerate PO for over 2 days - [place] ED Course: s/p 2L NS bolus, IV 4mg zofran, 12.5 benadryl, 20mg Pepcid, 12.5 phenergan, refused second phenergan dose so given Reglan 10mg, 20mEq KCL repletion - OSH labs remarkable for K 3.2, Cr 0.72, LFT WNL, lipase 59, Udip with 2+ ketone - Patient reports severe nausea, dry heaving noted at bedside - Upon transfer to [facility], P 80s, BP 120/60s - Repeat UA [...] presentation at 37w - Documented LTCS at [facility] - Desires possible Hx PTD - G1 at 34w - G2 at 36w COVID-19 SCREEN: Lab Results Component Value Date/Time COVID19 Not Detected 08/30/2020 11:37 PM Antepartum course reviewed - sero negative, Rnot immune, VZVnot immune, A positive/IAT negative, GBS unk, Pap ASCUS 11/2017, negHRHPV, needs repeat cotesting in 3 years - H/H, plt: 14.5 / 40.7, 187 on [facility] 171-178 bpm via [...] - 08/31/2020 5:02 PM CDTFood Allergy and Cultural/[facility] Food Preferences Consult Note: Spoke with patient's nurse today over the phone. Per nurse, patient with food allergy to oranges. Per allergy list patient with hives as reported reaction. Please see confirmed food allergy below. Confirmed Food Allergy: 1. [place] Reaction:Hives Confirmed Cultural Food Preferences: 1. None Confirmed Methodist Food Preferences: 1. None Kary Coppola MS, RD, LD Clinical Dietitian RD Office: [phone] documented in this encounter Miscellaneous Notes Care [...] 09/08/2020 Routine Visit OB Satellites Lauren Fernandez, INTERNET MERCHANT [address] [address] [phone] Name Type Priority Associated Diagnoses Order S [...] AM CDT) NA 135 135 - 145 [facility] mmol/L SERVICES K 3.6 3.5 - 5.0 [facility] mmol/L SERVICES CL 106 98 - 108 mmol/L [facility] SERVICES CO2 TOTAL 21 (L) 23 - 31 mmol/L [facility] SERVICES AGAP 8 2 - 16 [facility] SERVICES BUN 3 (L) 7 - 23 mg/dL [facility] SERVICES GLUCOSE 106 70 - 110 mg/dL [facility] SERVICES CREATININE 0.46 (L) 0.50 - 1.04 [facility] mg/dL SERVICES CALCIUM 8.6 8.6 - 10.6 [facility] mg/dL SERVICES eGFR Calculation 160.6 mL/min/1.73m2 [facility]ORY (Non- SERVICES Mauritian) eGFR Calculation 194.7 mL/min/1.73m2 [facility]ORY () SERVICES Specimen Blood - VENOUS Narrative Performed At Association of Glomerular Filtration Rate (GFR) and St aging [facility]ORY SERVICES of Kidney Disease* + + [...] in imaging tests) . Performing Organization Address City/[facility] Phone Number [facility]ORY SERVICES CLIA: [id number] [place], [place] [address] [address] [place] [address] URINALYSIS (08/31/2020 4:07 PM CDT) Pathologist Sig [...] - URINE, CLEAN CATCH Performing Organization Address [facility] Phone Number [facility]ORATORY SERVICES CLIA: [id number] [place] [address] [place] [address] Type and Screen - ONCE Routine (08/31/2020 12:23 AM CDT) Pathologist [facility] ABO & RH A POSITIVE LAB Comment: Performed at [facility] Laboratory Services - [facility] Blood Bank [address] [place] [address] Toll Free: [phone] CLIA No. [id number] IAT Negative LAB Comment: Performed at [facility] Laboratory Services - [facility] Blood Bank [address] [place] [address] Toll Free: [phone] CLIA No. [id number] Specimen Blood - VENOUS Performing Organization Address [facility] Phone Number [facility] LAB BASIC METABOLIC PANEL (NA, K, CL, CO2, GLUCOSE, BUN, CREATININE, CA) (08/31/2020 12:17 AM CDT) [facility] NA 134 (L) 135 - 145 [facility] mmol/L SERVICES K 3.8 3.5 - 5.0 [facility] mmol/L SERVICES CL 104 98 - 108 mmol/L [facility] SERVICES CO2 TOTAL 22 (L) 23 - 31 mmol/L [facility] SERVICES AGAP 8 2 - 16 [facility] SERVICES BUN <2 (L) 7 - 23 mg/dL [facility] SERVICES GLUCOSE 87 70 - 110 mg/dL [facility]ORY SERVICES CREATININE 0.50 0.50 - 1.04 [facility]ORY mg/dL SERVICES CALCIUM 8.8 8.6 - 10.6 [facility] mg/dL SERVICES eGFR Calculation 145.9 mL/min/1.73m2 [facility] (Non- SERVICES Mauritian) eGFR Calculation 176.8 mL/min/1.73m2 [facility] () SERVICES Specimen Blood - VENOUS Narrative Performed At Association of Glomerular Filtration Rate (GFR) and St aging [facility]ORY SERVICES of Kidney Disease* + + [...] in imaging tests) . Performing Organization Address City/[facility]/Zipcode Phone Number [facility]ORY SERVICES CLIA: [id number] [place] [address] [place] [address] COVID-19 (ID NOW RAPID TESTING) (08/30/2020 11:37 PM CDT) SARS-CoV-2 Rapid ID Not Detected Not Detected [facility] LABORATORY NOW SERVICES Specimen Swab - NASOPHARYNGEAL SWAB Narrative Performed At SD NOW COVID-19 Assay is an isothermal nucleic acid [facility]OR[facility] SERVICES amplification test intended for the qualitative detect ion of nucleic acid from SARS-CoV-2 viral RNA in nasopharynge al (CLAM BED LABORER) specimens. It is used under Emergency Use [...] indicated. Performing Organization Address City/State/Zipcode Phone Number [facility]ORATORY SERVICES CLIA: [id number] [place] [address] [phone] [address] [facility] URINALYSIS (08/30/2020 10:44 PM CDT) Pathologist Sig nature APPEARANCE Clear Clear [facility]ORY SERVICES COLOR Yellow Yellow [facility]ORY SERVICES PH 7.0 4.8 - 8.0 [facility]ORY SERVICES SP GRAVITY 1.012 1.003 - 1.030 [facility]ORATORY SERVICES GLU U QUAL Normal Normal [facility]ORY SERVICES BLOOD Negative Negative [facility] SERVICES KETONES 80 mg/dL (A) Negative [facility]ORY SERVICES PROTEIN Negative Negative [facility] SERVICES UROBILIN Normal Normal [facility] SERVICES BILIRUBIN Negative Negative [facility]ATORY SERVICES NITRITE Negative Negative [facility] LABORATORY SERVICES LEUK HO Negative Negative [facility] SERVICES RBC/HPF 2 0 - 3 HPF [facility]ATORY SERVICES WBC/HPF <1 0 - 5 HPF [facility]ORY SERVICES BACTERIA Negative Negative [facility]ORY SERVICES MUCOUS Slight (A) Negative LPF [facility]ATORY SERVICES SQ EPITH 1 <=2 HPF [facility]ORATORY SERVICES ASCORBIC ACID Negative [facility]ORY SERVICES Specimen Urine - URINE, CLEAN CATCH Performing Organization Address City/State/Zipcode Phone Number [facility]ORY SERVICES CLIA: [id number] [place] [address] [place] [address] documented in this encounter Visit Diagnoses Diagnosis [...] mL/hr, 1,000 mL, Intravenous, ONCE, 1 dose, [facility] 08/30/20 at 2330, Routine potassium chloride 20 [...] Address T ype Group Dates ASIA BETANCOURT [id number] 2018-Anupama P [address] BOX Medic [place] [address] MANAGED MEDICAID [place] documented as of this encounter Advance Directives Type Date Recorded 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
--- OUTSIDE RECORDS SUMMARY | 2020-09-24 08:24 | XMS REPORT | Summary of Care ---
:1990 Author Organization [facility] Address [address] [place] [address] Care Team Providers Name Role Phone Gamal Saravia Insurance Hmo Lauren Fernandez Primary Care Provider Reason for Visit Reason Comments Abdominal Pain Vomiting Auth/Cert Status Reason Specialty Diagnoses / Referred By Referred To Procedures Contact Contact Emergency Medicine Adc Em ergency Dept [address] [address] Fax: Encounter Details Date Type Department Care Team Description 09/07/2020 Emergency ADC-Emergency Depart ment Mary Carmen Jacobs, PAC [address] [facility] [address] mal[place] [address] [place] [address] [place] [address] [phone] Allergies Active Allergy Reactions Severity Noted Date Comments Ibuprofen Hives 04/15/2014 [place] Hives 04/15/2014 Sodium Citrate (Bulk) Nausea and/or Vomiting 9 documented as of this encounter (statuses as of 09/07/2020) Medications Medication Sig Dispensed Refills Start Date End Date Status vit Take 1 Packet by 30 Each 6 08/03/2020 Active 42-diop-hgupf-dha mouth daily. 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 Hose Operator Utility Encounter for IUD removal and [...] management 01/25/2015 05/20/2018 Overview: ICD10 Diagnosis Term Hose Operator Utility Breast tenderness in female 01/25/2015 05/20/2018 Not immune to rubella 04/16/2014 06/04/2016 Overview: ICD10 Diagnosis Term Hose Operator Utility documented as of this encounter [...] active vomiting noted. Also discussed contacting her mortgage assistant for termination. Pt signed AMA form and walked out of ER without incident. Brenda frost RN - 09/07/2020 2:45 PM CDTPt upset with staff regarding visitor policy states, "She just needs an childbirth and infant care teacher. 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
--- OUTSIDE RECORDS SUMMARY | 2020-09-24 08:24 | XMS REPORT | Summary of Care ---
:1990 Author Organization [facility] Address [address] [place] [address] Care Team Providers Name Role Phone Gamal Saravia Insurance Hmo Lauren Fernandez OPERATIONS SCHEDULER Primary Care Provider Reason for Visit Reason Comments Assessment vomit Encounter Details Date Type Department Care Team Description 09/06/2020 Telephone [facility]- Cornelius Fernandez, As sessment (vomit) [facility] [address] [facility] [address] [place] [address] [place] [address] [phone] Allergies Active Allergy Reactions Severity Noted Date Comments Ibuprofen Hives 04/15/2014 [place] Hives 04/15/2014 Sodium Citrate (Bulk) Nausea and/or Vomiting 9 documented as of this encounter (statuses as of 09/06/2020) Medications Medication Sig Dispensed Refills Start End Date Status Date vit Take 1 Packet by 30 Each 6 Active 65-lmra-ppkbx-dha mouth daily. 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 Mold Design Engineer Utility Encounter for IUD removal and reinsertion 01/18/2015 ASCUS on Pap smear 04/15/2014 Estimated Date of Delivery Comments Yes 04/11/2021 Based on Ultrasound, FHT: 127, Transverse Presentation, Placen ta Too early to evaulate documented as of this encounter (statuses as of 09/06/2020) Resolved Problems Problem Noted Date Resolved Date 37 weeks gestation of 12/18/2018 01/08/20 19 [place] Hick's contraction 12/12/2018 01/08/2019 Abnormal maternal glucose [...] management 01/25/2015 05/20/2018 Overview: ICD10 Diagnosis Term Mold Design Engineer Utility Breast tenderness in female 01/25/2015 05/20/2018 Not immune to rubella 04/16/2014 06/04/2016 Overview: ICD10 Diagnosis Term Mold Design Engineer Utility documented as of this encounter [...] old female Patient stated she went to [facility] and was given a shot of phenergan. Patient stated she wasgiven Tylenol but vomited and is pain. Stated her is taking her to [facility]. 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
--- OUTSIDE RECORDS SUMMARY | 2020-09-24 08:24 | XMS REPORT | Summary of Care ---
:1990 Author Organization [facility] Address [address] [place] [address] Care Team Providers Name Role Phone Gamal Saravia Insurance Hmo Lauren Fernandez Primary Care Provider Reason for Visit Reason Comments ROUTINE VISIT (Routine) Status Reason Specialty Diagnoses / Referred By Referred To Procedures Contact Contact New Request OB Satellites Diagnoses Hyperemesis gravidarum Marisel Galvan, Procedures Discharge Follow-Up: Final Installer Inspector Lorena FRANKLIN [address] [facility] [id number] [place] [address] Encounter Details Date Type Department Care Team Description 09/08/2020 Routine [facility]- Cornelius Fernandez upervision of high risk in first trimester (Primary Dx); Visit ELIZ Holland Previous section complicating p regnancy; [address] [place] NANC[place] (vaginal after ) trial; [address]; [place], [place], [place] Nausea and vomi ting during ; [id number] Obesity in [phone] Allergies Active Allergy Reactions Severity Noted Date Comments Ibuprofen Hives 04/15/2014 [place] Hives 04/15/2014 Sodium Citrate (Bulk) Nausea and/or Vomiting 9 documented as of this encounter (statuses as of 09/08/2020) Medications Medication Sig Dispensed Refills Start Date End Date Status vit Take 1 Packet by 30 Each 6 08/03/2020 Active 94-iabg-sohte-dha mouth daily. 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 Broke Handler Utility Encounter for IUD removal and reinsertion 01/18/2015 ASCUS on Pap smear 04/15/2014 Estimated Date of Delivery Comments Yes 04/11/2021 Based on Ultrasound, FHT: 127, Transverse Presentation, Placen ta Too early to evaulate documented as of this encounter (statuses as of 09/08/2020) Resolved Problems Problem Noted Date Resolved Date 37 weeks gestation of 12/18/2018 01/08/20 19 [place] Hick's contraction 12/12/2018 01/08/2019 Abnormal maternal glucose [...] management 01/25/2015 05/20/2018 Overview: ICD10 Diagnosis Term Broke Handler Utility Breast tenderness in female 01/25/2015 05/20/2018 Not immune to rubella 04/16/2014 06/04/2016 Overview: ICD10 Diagnosis Term Broke Handler Utility documented as of this encounter (statuses as of 09/08/2020) Immunizations Name Administration Dates Next Due HPV9 06/04/2016 MMR 12/20/2018 (Deferred: - not available f [facility]) TDAP 04/06/2015 TDAP (ADACEL) [...] in this encounter Progress Notes Cornelius Fernandez, CASE RESOURCE MANAGER - 09/08/2020 10:45 AM CDT Chief complaint: Chief Complaint Patient presents with ROUTINE VISIT HPI CC: Follow Up Visit Suraj Fuentes is a 29 year old, , /White female. Patient's last menstrual period was 06/08/2020 (approximate). She is 9w2d with an intrauterine . Her estimated date of delivery is 04/11/2021, by Ultrasound. She went to [facility] ER for nausea and vomitin g, Zofran [...] Manny Gray; Location: Labor and Delivery - [place] Social History Socioeconomic History Marital status: Spouse [...] file Gets together: Not on file Attends nondenominational service: Not on file Active member of [...] sexual or emotional abuse. Only outside cats. Scientologist: None Patient lives with spouse and kids. [...] problems of obesity on future pregnancies and/or assisted health. Return to clinic in 4 weeks. [...] / Subscriber ID Effective Phone Address T [facility] Group Dates ASIA BETANCOURT [id number] 2018-Anupama HIDALGO Medic [place] [id number] MA[place]ED MED[place] documented as of this encounter Advance Directives Type Date Recorded Patient Parachute Mender Explanati on Advance Directives and Living Will Power of Auditor/Quality Name Relationship Healthcare Agent Relationship Co mmunication Floyd Brown Father Health Care Agent Preet Coffey Other Health Care Agent [place] Fuentes Spouse [facility] Health Care Agent (Mobile)
--- OUTSIDE RECORDS SUMMARY | 2020-09-24 08:25 | XMS REPORT | Summary of Care ---
:1990 Author Organization [facility] Address [address] [place] [address] Care Team Providers Name Role Phone Gamal Saravia Insurance Hmo Lauren Fernandez Primary Care Provider Reason for Visit Reason Comments ROUTINE VISIT (Routine) Status Reason Specialty Diagnoses / Referred By Referred To Procedures Contact Contact New Request OB Satellites Diagnoses Hyperemesis gravidarum Marisel Galvan, Procedures Discharge Follow-Up: Lead Systems Architect Lorena FRANKLIN [address] [facility] [id number] [place] [address] Encounter Details Date Type Department Care Team Description 09/08/2020 Routine [facility] RMCHP- Cornelius Fernandez upervision of high risk in first trimester (Primary Dx); Visit ELIZ Holland Previous section complicating p regnancy; [address] V NANCY (vaginal after ) trial; [address]; [place], [place], [place] Nausea and vomi ting during ; [phone] Obesity in [phone] Allergies Active Allergy Reactions Severity Noted Date Comments Ibuprofen Hives 04/15/2014 [place] Hives 04/15/2014 Sodium Citrate (Bulk) Nausea and/or Vomiting 9 documented as of this encounter (statuses as of 09/08/2020) Medications Medication Sig Dispensed Refills Start Date End Date Status vit Take 1 Packet by 30 Each 6 08/03/2020 Active 51-qbpj-sydmr-dha mouth daily. 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 Pastry Finisher Utility Encounter for IUD removal and reinsertion 01/18/2015 ASCUS on Pap smear 04/15/2014 Estimated Date of Delivery Comments Yes 04/11/2021 Based on Ultrasound, FHT: 127, Transverse Presentation, Placen ta Too early to evaulate documented as of this encounter (statuses as of 09/08/2020) Resolved Problems Problem Noted Date Resolved Date 37 weeks gestation of 12/18/2018 01/08/20 19 [place] Hick's contraction 12/12/2018 01/08/2019 Abnormal maternal glucose [...] management 01/25/2015 05/20/2018 Overview: ICD10 Diagnosis Term Pastry Finisher Utility Breast tenderness in female 01/25/2015 05/20/2018 Not immune to rubella 04/16/2014 06/04/2016 Overview: ICD10 Diagnosis Term Pastry Finisher Utility documented as of this encounter (statuses as of 09/08/2020) Immunizations Name Administration Dates Next Due HPV9 06/04/2016 MMR 12/20/2018 (Deferred: - not available f [facility]) TDAP 04/06/2015 TDAP (ADACEL) [...] in this encounter Progress Notes Cornelius Fernandez, COTTRELL OPERATOR - 09/08/2020 10:45 AM CDT Chief complaint: Chief Complaint Patient presents with ROUTINE VISIT HPI CC: Follow Up Visit Suraj Fuentes is a 29 year old, , /White female. Patient's last menstrual period was 06/08/2020 (approximate). She is 9w2d with an intrauterine . Her estimated date of delivery is 04/11/2021, by Ultrasound. She went to [facility] ER for nausea and vomitin g, Zofran [...] Manny Gray; Location: Labor and Delivery - [place] Social History Socioeconomic History Marital status: Spouse [...] sexual or emotional abuse. Only outside cats. Quaker: None Patient lives with spouse and kids. [...] problems of obesity on future pregnancies and/or jail health. Return to clinic in 4 weeks. 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
--- OUTSIDE RECORDS SUMMARY | 2020-09-24 08:25 | XMS REPORT | Summary of Care ---
:1990 Author Organization [facility] Address [address] [place] [address] Care Team Providers Name Role Phone Gamal Saravia Insurance Hmo Lauren Fernandez Primary Care Provider Reason for Visit Reason Comments ROUTINE VISIT (Routine) Status Reason Specialty Diagnoses / Referred By Referred To Procedures Contact Contact New Request OB Satellites Diagnoses Hyperemesis gravidarum Marisel Galvan, Procedures Discharge Follow-Up: Supply Coordinator Lorena FRANKLIN [address] [facility] [id number] [place] [address] Encounter Details Date Type Department Care Team Description 09/08/2020 Routine [facility] RMCHP- Cornelius Fernandez upervision of high risk in first trimester (Primary Dx); Visit ELIZ Holland Previous section complicating p regnancy; [address] V NANCY (vaginal after ) trial; [address]; [place], [place], [place] Nausea and vomi ting during ; [phone] Obesity in [phone] Allergies Active Allergy Reactions Severity Noted Date Comments Ibuprofen Hives 04/15/2014 [place] Hives 04/15/2014 Sodium Citrate (Bulk) Nausea and/or Vomiting 9 documented as of this encounter (statuses as of 09/08/2020) Medications Medication Sig Dispensed Refills Start Date End Date Status vit Take 1 Packet by 30 Each 6 08/03/2020 Active 27-ulby-lovcq-dha mouth daily. 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 Hand Grinder Utility Encounter for IUD removal and reinsertion 01/18/2015 ASCUS on Pap smear 04/15/2014 Estimated Date of Delivery Comments Yes 04/11/2021 Based on Ultrasound, FHT: 127, Transverse Presentation, Placen ta Too early to evaulate documented as of this encounter (statuses as of 09/08/2020) Resolved Problems Problem Noted Date Resolved Date 37 weeks gestation of 12/18/2018 01/08/20 19 [place] Hick's contraction 12/12/2018 01/08/2019 Abnormal maternal glucose [...] management 01/25/2015 05/20/2018 Overview: ICD10 Diagnosis Term Hand Grinder Utility Breast tenderness in female 01/25/2015 05/20/2018 Not immune to rubella 04/16/2014 06/04/2016 Overview: ICD10 Diagnosis Term Hand Grinder Utility documented as of this encounter (statuses [...] in this encounter Progress Notes Cornelius Fernandez, TURKEY CLEANER - 09/08/2020 10:45 AM CDT Chief complaint: Chief Complaint Patient presents with ROUTINE VISIT HPI CC: Follow Up Visit Suraj Fuentes is a 29 year old, , /White female. Patient's last menstrual period was 06/08/2020 (approximate). She is 9w2d with an intrauterine . Her estimated date of delivery is 04/11/2021, by Ultrasound. She went to [facility] ER for nausea and vomitin g, [...] Manny Gray; Location: Labor and Delivery - [place] Social History Socioeconomic History Marital status: Spouse [...] sexual or emotional abuse. Only outside cats. Orthodox: None Patient lives with spouse and kids. 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
--- OUTSIDE RECORDS SUMMARY | 2020-09-24 08:26 | XMS REPORT | Summary of Care ---
:1990 Author Organization [facility] Address [address] [place] [address] Care Team Providers Name Role Phone Gamal Saravia Insurance Hmo Lauren Fernandez RENTAL AGENT Primary Care Provider Reason for Visit Reason Comments Other PRIOR AUTH go to [facility] [id number] Encounter Details Date Type Department Care Team Description 09/08/2020 Telephone [facility]- Cornelius Fernandez, Ot her (PRIOR AUTH go [facility] to [facility] [address] [facility] [id number]) [place] [address] [place], [place] [phone] [address] [phone] Allergies Active Allergy Reactions Severity Noted Date Comments Ibuprofen Hives 04/15/2014 [place] Hives 04/15/2014 Sodium Citrate (Bulk) Nausea and/or Vomiting 9 documented as of this encounter (statuses as of 09/09/2020) Medications Medication Sig Dispensed Refills Start Date End Date Status vit Take 1 Packet by 30 Each 6 08/03/2020 Active 69-ivlj-zmlad-dha mouth daily. 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 Clinical Appeals Reviewer Utility Encounter for IUD removal and reinsertion 01/18/2015 ASCUS on Pap smear 04/15/2014 Estimated Date of Delivery Comments Yes 04/11/2021 Based on Ultrasound, FHT: 127, Transverse Presentation, Placen ta Too early to evaulate documented as of this encounter (statuses as of 09/09/2020) Resolved Problems Problem Noted Date Resolved Date 37 weeks gestation of 12/18/2018 01/08/20 19 [place] Hick's contraction 12/12/2018 01/08/2019 Abnormal maternal glucose [...] management 01/25/2015 05/20/2018 Overview: ICD10 Diagnosis Term Clinical Appeals Reviewer Utility Breast tenderness in female 01/25/2015 05/20/2018 Not immune to rubella 04/16/2014 06/04/2016 Overview: ICD10 Diagnosis Term Clinical Appeals Reviewer Utility documented as of this encounter (statuses [...] 09/08/2020 4:09 PM CDTGo to covermymeds Doxylamine [id number] signed by Leyla Sapp at 09/08/2020 4:13 PM CDT documented in this encounter Plan of Treatment Date Type Specialty Care Team Description 10/06/2020 Routine Visit OB Satellites Lauren Fernandez, RENTAL AGENT [address] [place], [place] [address] [phone] Health Maintenance Due Date Last Done Comments [...] Address T ype Group Dates ASIA BETANCOURT [id number] 2018-Anupama HIDALGO Medic [place] [id number] MANAGED MEDICAID [place] documented as of this encounter Advance Directives Type Date Recorded Patient Triage Rn Explanati on Advance Directives and Living Will Power of Pest Control Service Technician Name Relationship Healthcare Agent Relationship Co mmunication Floyd Brown [facility] Health Care Agent Preet Coffey Other Health Care Agent [place] Fuentes Spouse [facility] Health Care Agent (Mobile)
--- OUTSIDE RECORDS SUMMARY | 2020-09-24 08:26 | XMS REPORT | Summary of Care ---
:1990 Author Organization [facility] Address [address] [place] [address] Care Team Providers Name Role Phone Gamal Saravia Insurance Hmo Lauren Fernandez SUPERVISOR SCREEN PRINTING Primary Care Provider Reason for Visit Reason Comments Rx Concern/Question prior auth go to cover mymed s [id number] Encounter Details Date Type Department Care Team Description 09/07/2020 Telephone [facility]- Cornelius Fernandez, Rx Concern/Question [place] FNP (prior auth go to [facility] [address] [facility] cover mymeds [id number]) [place] [address] [place], [place] [phone] [address] [phone] Allergies Active Allergy Reactions Severity Noted Date Comments Ibuprofen Hives 04/15/2014 [place] Hives 04/15/2014 Sodium Citrate (Bulk) Nausea and/or Vomiting 9 documented as of this encounter (statuses as of 09/08/2020) Medications Medication Sig Dispensed Refills Start Date End Date Status vit Take 1 Packet by 30 Each 6 08/03/2020 Active 97-ihru-ardrn-dha mouth daily. 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 Assurance Manager Utility Encounter for IUD removal and reinsertion 01/18/2015 ASCUS on Pap smear 04/15/2014 Estimated Date of Delivery Comments Yes 04/11/2021 Based on Ultrasound, FHT: 127, Transverse Presentation, Placen ta Too early to evaulate documented as of this encounter (statuses as of 09/08/2020) Resolved Problems Problem Noted Date Resolved Date 37 weeks gestation of 12/18/2018 01/08/20 19 [place] Hick's contraction 12/12/2018 01/08/2019 Abnormal maternal glucose [...] management 01/25/2015 05/20/2018 Overview: ICD10 Diagnosis Term Assurance Manager Utility Breast tenderness in female 01/25/2015 05/20/2018 Not immune to rubella 04/16/2014 06/04/2016 Overview: ICD10 Diagnosis Term Assurance Manager Utility documented as of this encounter [...] for authorization of nausea medication. Please call [phone] (home) documented in this encounter Plan of Treatment Date Type Specialty Care Team Description 10/06/2020 Routine Visit OB Satellites Lauren Fernandez, SUPERVISOR SCREEN PRINTING [address] [place] [address] [phone] Health Maintenance Due Date Last Done Comments [...] Address T biancae Group Dates ASIA BETANCOURT [id number] 2018-Anupama Camacho [address] Medic [place] [phone] MANAGED MEDICA[place] documented as of this encounter Advance Directives Type Date Recorded Patient Tool Planner Explanati on Advance Directives and Living Will Power of Quantitative Research Analyst Name Relationship Healthcare Agent Relationship Co mmunication Floyd Brown Father Health Care Agent Preet Coffey Other Health Care Agent [place] Fuentes Spouse [facility] Health Care Agent (Mobile)
--- OUTSIDE RECORDS SUMMARY | 2020-09-24 08:26 | XMS REPORT | Summary of Care ---
:1990 Author [address] [facility] Address [address] [place] [address] Care Team Providers Name Role Phone Gamal Saravia Insurance Hmo Lauren Fernandez Primary Care Provider Reason for Visit Reason Comments Abdominal Pain Encounter Details Date Type Department Care Team Description 09/09/2020 [facility]aciela Burks, Abdominal Pain [facility] [address] [facility] [address] [place] [address] [facility] [phone] [place], [place] [address] [phone] Allergies Active Allergy Reactions Severity Noted Date Comments Ibuprofen Hives 04/15/2014 [place] Hives 04/15/2014 Sodium Citrate (Bulk) Nausea and/or Vomiting 9 documented as of this encounter (statuses as of 09/09/2020) Medications Medication Sig Dispensed Refills Start Date End Date Status vit Take 1 Packet by 30 Each 6 08/03/2020 Active 83-doob-ooqzd-dha mouth daily. 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 Transmission System Operator Utility Encounter for IUD removal and [...] management 01/25/2015 05/20/2018 Overview: ICD10 Diagnosis Term Transmission System Operator Utility Breast tenderness in female 01/25/2015 05/20/2018 Not immune to rubella 04/16/2014 06/04/2016 Overview: ICD10 Diagnosis Term Transmission System Operator Utility documented as of this encounter [...] she states she was seen at the [place] ER earlier today but reports no imaging was done, she was only given IV fluids. Patient advised to go to L&D for further evaluation, the gentleman and patient agreed and reported that he would to take her to [place] L&D. Report called and given to Sharlene MEJÍA. BELLA Brower 09/09/2020 4:24 PM documented in this encounter Plan of Treatment Date Type Specialty Care Team Description 10/06/2020 Routine Visit OB Satellites Lauren Fernandez, MARKETING DIRECTOR [address] [place], [place] [address] [phone] Health Maintenance Due Date Last Done Comments [...] Address T e Group Dates ASIA BETANCOURT [id number] 2018-Anupama [place] B[address] Medic [place] [id number] MANAGED MEDICA[place] documented as of this encounter Advance Directives Type Date Recorded Patient Infant Toddler Lead Teacher Explanati on Advance Directives and Living Will Power of All Terrain Vehicle Racer Name Relationship Healthcare Agent Relationship Co mmunication Floyd Brown [facility] Health Care Agent Preet Coffey Other Health Care Agent [place] Fuentes Spouse First [facility] Health Care [phone] Agent (Mobile)
--- OUTSIDE RECORDS SUMMARY | 2020-09-24 08:27 | XMS REPORT | Summary of Care ---
:1990 Author Organization [facility] Address [address] [place] [address] Care Team Providers Name Role Phone Gamal Saravia Insurance Hmo Lauren Fernandez Primary Care Provider Reason for Visit Reason Comments Assessment Encounter Details Date Type Department Care Team Description 09/09/2020 Telephone [facility] RMP- A Cornelius Allen FNP Assessment [address] [facility] [address] [place] [address] [place] [address] [phone] Allergies Active Allergy Reactions Severity Noted Date Comments Ibuprofen Hives 04/15/2014 [place] Hives 04/15/2014 Sodium Citrate (Bulk) Nausea and/or Vomiting 9 documented as of this encounter (statuses as of 09/09/2020) Medications Medication Sig Dispensed Refills Start Date End Date Status vit Take 1 Packet by 30 Each 6 08/03/2020 Active 17-rdcd-yeljq-dha mouth daily. 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 Endless Belt Finisher Utility Encounter for IUD removal and [...] management 01/25/2015 05/20/2018 Overview: ICD10 Diagnosis Term Endless Belt Finisher Utility Breast tenderness in female 01/25/2015 05/20/2018 Not immune to rubella 04/16/2014 06/04/2016 Overview: ICD10 Diagnosis Term Endless Belt Finisher Utility documented as of this encounter [...] 10/06/2020 Routine Visit OB Satellites Lauren Fernandez, HAND MIXER [address] [place] [address] [phone] Health Maintenance Due Date Last Done Comments [...] / Subscriber ID Effective Phone Address T [facility] Group Dates ASIA BETANCOURT [id number] 2018-Anupama Camacho O BOX Medic [facility]CARE [place] [facility] [place] [id number] MANAGED MEDICAID [place] documented as of this encounter Advance Directives Type Date Recorded Patient Insurance Account Executive Explanati on Advance Directives and Living Will Power of Plant And Maintenance Technician Name Relationship Healthcare Agent Relationship Co mmunication Floyd Brown Father Health Care Agent Preet Coffey Other Health Care Agent [place] Gina Spouse [facility] Care Agent (Mobile)
--- OUTSIDE RECORDS SUMMARY | 2020-09-24 08:27 | XMS REPORT | Summary of Care ---
:1990 Author Organization [facility] - [facility] Address [address] [place] [address] Care Team Providers Name Role Phone Gamal Saravia Insurance Hmo Lauren Fernandez MANAGER CONSTRUCTION Primary Care Provider Reason for Referral (Routine) Status Reason Specialty Diagnoses / Procedures Referred By Lauren marquez To Contact Contact New Request Diagnoses Nausea and vomiting, intractability of vomiting not specified, unspecified vomiting type Hyperemesis gravidarum Prema Hernandez MD Procedures Discharge Follow-Up: Property Portfolio Officer [facility] [address] [place] [address]. [place] [address] Radiology Services (STAT) Status Reason Specialty Diagnoses / Referred By Referred To Procedures Contact Contact New Request Diagnostic Diagnoses Nausea and vomiting, intractability of vomiting not specified, unspecified vomiting type Generalized abdominal pain Marcelo Carpio Radiology Procedures US ABDOMEN LIMITED MD Keerthi [address] [place] [address] [id number] [place] [address] Reason for Visit Reason Comments Abdominal Pain Auth/Cert Status Reason Specialty Diagnoses / Referred By Referred To Procedures Contact Contact Emergency Medicine [facility] rgency Dept [address] [place] [address] Fax: Encounter Details Date Type Department Care Team Description 09/09/2020 - Hospital Encounter Obstetrics and ShirinMarcelo MD [address] [facility] [id number] [place], [place] [id number] Nausea & vomiting 09/10/2020 Gynecology (J10C) Karlie Brown MD [address] [facility] [id number] [place], [place] [id number] [address] [place] [address] Allergies Active Allergy Reactions Severity Noted Date Comments Ibuprofen Hives 04/15/2014 [place] Hives 04/15/2014 Sodium Citrate (Bulk) Nausea and/or Vomiting 9 documented as of this encounter (statuses as of 09/10/2020) Medications Medication Sig Dispensed Refills Start Date End Date Status vit Take 1 Packet by 30 Each 6 08/03/2020 Active 52-zypp-vwjxk-dha mouth daily. 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 Merchandising Execution Associate Utility Encounter for IUD removal and reinsertion 01/18/2015 ASCUS on Pap smear 04/15/2014 Estimated Date of Delivery Comments Yes 04/11/2021 Based on Ultrasound, FHT: 127, Transverse Presentation, Placen ta Too early to evaulate documented as of this encounter (statuses as of 09/10/2020) Resolved Problems Problem Noted Date Resolved Date 37 weeks gestation of 12/18/2018 01/08/20 19 [place] Hick's contraction 12/12/2018 01/08/2019 Abnormal maternal glucose [...] management 01/25/2015 05/20/2018 Overview: ICD10 Diagnosis Term Merchandising Execution Associate Utility Breast tenderness in female 01/25/2015 05/20/2018 Not immune to rubella 04/16/2014 06/04/2016 Overview: ICD10 Diagnosis Term Merchandising Execution Associate Utility documented as of this encounter (statuses [...] SW, patient needed transport home. provided Voucher #[id number] for [employer] . Roseann Bowens LMSW Web Support Engineer Care Management C: [phone] O: [phone] [email or web address] Poonam Solomon MD - 09/10/2020 4:00 PM CDTR1 CASTLE CALL PROGRESS NOTE Suraj Fuentes [id number] 09/10/2020, 4:00 PM Notified by RN that patient is now tolerating a regular diet. Pt previously on oral antiemetics and adamantly desires to be d/c at this time. Will d/c with home medications. Precautions given, f/u withregular PNV. Discussed with Dr. Eller. Poonam Solomon MD MEDICAL CLAIMS REPRESENTATIVE PGY-1 09/10/20 documented in this encounter H&P [...] Manny Gray; Location: Labor and Delivery - [place] Past Medical History: Diagnosis Date Abnormal maternal [...] 09/10/20 0632 Allergies and drug reactions: Ibuprofen, [place], and Sodium citrate (bulk) HOME MEDICATIONS Prescriptions [...] for 42 days. 120 tablet 1 vit 58-gies-srxwq-dha (SELECT-OB + DHA) 29 mg iron-1 mg [...] Date/Time GLUF 68 (L) 12/12/2018 07:47 AM [id number] 124 08/03/2020 02:17 PM GLU3H 108 12/12/2018 [...] / 39.3, 180 [facility] - Presentation on admission: variable - too early to eval placenta - FHT 154 bpm DISPO: Admit for IV antiemetics in the setting of hyperemesis. PO challenge in AM D/w Dr. Mason. Destinee Wiseman MD PGY-2 MEDICAL CLAIMS REPRESENTATIVE Personal Pager: [phone] 09/10/20 1:51 AM Associated attestation - Karlie Brown MD - 09/10/2020 11:01 AM CDTI personally examined the patient on 09/10/[address] Wiseman's resident note as written. I actively participated in the decision-making process. Please see the resident's note for additional details. documented in this encounter Consult Notes Destinee Wiseman MD - 09/10/2020 12:20 AM CDTAssociated Order(s): CONSULT MEDICAL CLAIMS REPRESENTATIVE TRIAGE/L&D HISTORY & PHYSICAL IDENTIFYING DATA Suraj [...] Manny Gray; Location: Labor and Delivery - [place] Past Medical History: Diagnosis Date Abnormal maternal [...] 09/10/20 0632 Allergies and drug reactions: Ibuprofen, [place], and Sodium citrate (bulk) HOME MEDICATIONS Medications [...] for 42 days. 120 tablet 1 vit 13-amje-ceafk-dha (SELECT-OB + DHA) 29 mg iron-1 mg [...] Date/Time GLUF 68 (L) 12/12/2018 07:47 AM NLLI2ST 124 08/03/2020 02:17 PM GLU3H 108 12/12/2018 [...] 13.9 / 39.3, 180 on 09/09/20 - [facility] Fetus - Presentation on admission: variable [...] Carpio MD - 09/09/2020 7:35 PM CDT [facility] Emergency Department Note Patient Name: Suraj Fuentes Date of : 1990 29 year old female Treatment Room: 119/119 Primary Care Physician: Cornelius Fernandez Patient Escorted by: Self [9] Mode of Arrival: Personal means [1] EMS Treatment Prior to ED Arrival: CLAY PRESS OPERATOR treatment: IVF;Other (comment) CLAY PRESS OPERATOR treatment comments: Per patient she was seen [...] or recent trauma History provided by: Patient soap slabber used: No Past Medical History/Immunizations: Past Medical History: Diagnosis Date Abnormal maternal glucose tolerance, antepartum 12/11/2018 Resolved per pt report Anxiety Resolved per pt report Anxiety and depression resolved Mental disorder Ovarian cyst recently found out of dx. Tetanus received in last 5 years: Unknown Childhood immunizations: Up-to-date Allergies: Allergies Allergen Reactions Ibuprofen Hives [place] Hives Sodium Citrate (Bulk) Nausea and/or Vomiting [...] Manny Gray; Location: Labor and Delivery - [place] Review of Systems: Review of Systems Constitutional: [...] Doppler ultrasound of the right upper quadrant. Coastal And Estuary Specialist images were obtained for the record. COMPARISON: [...] Calculation () 222.3 mL/min/1.73m2 HEPATIC FUNCTION PANEL (08969) (ALB,T.PRO,BILI T,BU/BC,ALT,AST,ALK PHOS) Collection Time: 09/09/20 8:03 [...] GLUCOSE, BUN, CREATININE, CA) HEPATIC FUNCTION PANEL (83985) (ALB,T.PRO,BILI T,BU/BC,ALT,AST,ALK PHOS) LIPASE URINALYSIS CONSULT MEDICAL CLAIMS REPRESENTATIVE Orders Placed This Encounter Medications NaCl 0.9% [...] and antiemetics with minimal improvement in pain. Property Portfolio Officer consulted. MDM: MDM Reviewed: nursing note and vitals Interpretation: labs and ultrasound Consults: MEDICAL CLAIMS REPRESENTATIVE Scoring Tools: No data recorded Diagnosis/Impression: ICD-10-CM [...] 2 tablets by mouth at bedtime. VIT 92-JUDW-XFHPK-DHA (SELECT-OB + DHA) 29 MG IRON-1 MG [...] RN - 09/10/2020 4:00 AM CDTPt to [facility] at this time via [facility] transport in stretcher. Respirations even and unlabored, AAOx4, NAD noted. D Nurse Note - Merna Ramos RN - 09/10/2020 3:37 AM CDTIce chips provided PO per patient request. D Nurse Note - Ada Bush RN - 09/10/2020 3:20 AM CDTPatient report called to recieving ALFONZO Jerome on floor [address] Patient updated on plan of care and verbalizes understanding. Patients VSS, RR even and unlabored, and NAD noted. [facility] tele track requested, awaiting transport to [facility]. D Nurse Note - Kristi Francis RN - 09/10/2020 3:17 AM CDTTransport requested D Nurse Note - Ada Bush RN - 09/10/2020 3:13 AM CDTRn returned call and states that patient is going to [facility] D Nurse Note - Ada Bush RN - 09/10/2020 3:09 AM CDTAttempted to call report. Per RN on Chevy Carpenter, they are attempting to get a bed assigned in antepartum. surveillance monitor states she is speaking with CN on [...] by 2 visitors. Patient connected to bedside athletic monitor. D Nurse Note - Ada Bush RN - 09/09/2020 7:44 PM CDTPatient to room from triage documented in this encounter Plan of Treatment Date Type Specialty Care Team Description 10/06/2020 Routine Visit OB Satellites Lauren Fernandez, MANAGER CONSTRUCTION [address] [address] 15 [phone] Name Type Priority Associated Diagnoses Date/Ti me [...] PANEL LAB Routine ONCE f or 1 (39346) Occurrences sta rting 09/10/2020 unti l 09/10/2020 [...] Nausea and vomiting, Results for this PANEL (68585) PM CDT intractability of procedure are in [...] COVID-19 Assay is an isothermal nucleic acid [facility] amplification test intended for the qualitative detect ion of nucleic acid from SARS-CoV-2 viral RNA in nasopharynge al (PIERCING MILL OPERATOR) specimens. It is used under Emergency [...] indicated. Performing Organization Address [facility] Phone Number [facility] CLIA: [id number] [place] [address] [place] [address] URINALYSIS (09/09/2020 11:55 PM CDT) Pathologist Sig nature APPEARANCE Clear Clear [facility] COLOR Yellow Yellow [facility] PH 7.0 4.8 - 8.0 [facility] SP GRAVITY 1.015 1.003 - 1.030 [facility] GLU U QUAL 50 mg/dL (A) Normal [facility] BLOOD [...] Negative [facility] RBC/HPF 1 0 - 3 HPF [facility] WBC/HPF 2 0 - 5 HPF [facility] BACTERIA Negative Negative [facility] MUCOUS Slight (A) Negative LPF [facility] SQ EPITH 5 (H) <=2 HPF [facility] Specimen Urine - URINE, CLEAN CATCH Performing Organization Address [facility] Phone Number [facility] CLIA: [id number] [place] [address] [place] [address] US ABDOMEN LIMITED (09/09/2020 9:45 PM CDT) [...] er ultrasound of the right upper quadrant. Coastal And Estuary Specialist images were obt ained for the record. [...] er ultrasound of the right upper quadrant. Coastal And Estuary Specialist images were obt ained for the record. [...] LIPASE 356 (H) 0 - 220 U/L [facility] Specimen Blood - VENOUS Performing Organization Address [facility]/Zipcode Phone Number [facility] CLIA: [id number] [place], [place] [address] [address] [place] [address] HEPATIC FUNCTION PANEL (02814) (ALB,T.PRO,BILI T,BU/BC,ALT,AST,ALK PHOS) (09/09/2020 8:03 PM CDT) Pathologist Sig nature TOTAL BILI 0.8 0.1 - 1.1 mg/dL [facility] BILI UNCON 0.9 0.1 - 1.1 mg/dL [facility] BILI CONJ 0.0 0.0 - 0.3 mg/dL [facility] T PROTEIN 6.8 6.3 - 8.2 g/dL [facility] ALBUMIN 4.1 3.5 - 5.0 g/dL [facility] ALK PHOS 49 34 - 122 U/L [facility] ALTv 52 (H) 5 - 35 U/L [facility] AST(SGOT) 43 (H) 13 - 40 U/L [facility] Specimen Blood - VENOUS Performing Organization Address [facility]/Zipcode Phone Number [facility] CLIA: [id number] [place], [place] [id number] [address] [place] [address] BASIC METABOLIC PANEL (NA, K, CL, CO2, GLUCOSE, BUN, CREATININE, CA) (09/09/2020 8:03 PM CDT) NA 135 135 - 145 [facility] mmol/L SERVICES K 4.2Comment: 3.5 - 5.0 [facility] Slight hemolysis mmol/L SERVICES CL 103 98 - 108 [facility] mmol/L SERVICES CO2 TOTAL 21 (L) 23 - 31 [facility] mmol/L SERVICES AGAP 11 2 - 16 [facility] BUN 2 (L)Comment: 7 - 23 mg/dL [facility] Slight hemolysis SERVICES GLUCOSE 90 70 - 110 [facility] mg/dL SERVICES CREATININE 0.41 (L) 0.50 - 1.04 [facility] mg/dL SERVICES CALCIUM 9.1 8.6 - 10.6 [facility] mg/dL SERVICES eGFR Calculation 183.4 mL/min/1.73m2 [facility] (Non- SERVICES [place]an) eGFR Calculation 222.3 mL/min/1.73m2 [facility] () SERVICES Specimen Blood - VENOUS Narrative Performed At Association of Glomerular Filtration Rate (GFR) and St aging [facility] of Kidney Disease* + + +------- ------ + | GFR (mL/min/1.73 m2) | With Kidney Damage | [facility] Kidney Damage + + +------- ------ + [...] . Performing Organization Address City/State/Zipcode Phone Number [facility] CLIA: [id number] [place] [address] [place] [address] CBC WITH DIFF (09/09/2020 8:03 PM CDT) Pathologist Sig nature WBC 8.85 4.30 - 11.10 [facility] 10*3/L SERVICES RBC 4.48 3.93 - 5.25 [facility] 10*6/L SERVICES HGB 13.9 11.6 - 15.0 [facility] g/dL SERVICES HCT 39.3 [...] VENOUS Performing Organization Address City/State/Zipcode Phone Number [facility] CLIA: [id number] [place] [address] [place] [address] documented in this encounter Visit Diagnoses Diagnosis [...] Address T e Group Dates ASIA BETANCOURT [id number] 2018-Anupama [place] Medic [place] [id number] MANA[place]ED MED[place] documented as of this encounter Advance Directives Type Date Recorded Patient Coastal And Estuary Specialist Explanati on Advance Directives and Living Will Power of Lockstitch Lining Setter Name Relationship Healthcare Agent Relationship Co mmunication Floyd Holloway Health Care Agent (Work) Preet Coffey Other Health Care Agent (Work) [place] Nicolegamal Spouse First [facility] Agent (Mobile) "
--- OUTSIDE RECORDS SUMMARY | 2020-09-24 08:27 | XMS REPORT | Summary of Care ---
:1990 Author Organization [facility] - Health Address [address] [place] [address] Care Team Providers Name Role Phone Gamal Saravia Insurance Hmo Lauren Fernandez Primary Care Provider Encounter Details Date Type Department Care Team Description 09/20/2020 Orders Only [facility] Doctor Unassigned, No [address] [facility] [place] [address] [address] [place] [address] Allergies Active Allergy Reactions Severity Noted Date Comments Ibuprofen Hives 04/15/2014 [place] Hives 04/15/2014 Sodium Citrate (Bulk) Nausea and/or Vomiting 9 documented as of this encounter (statuses as of 09/20/2020) Medications Medication Sig Dispensed Refills Start Date End Date Status vit Take 1 Packet by 30 Each 6 08/03/2020 Active 19-tghk-zurvp-dha mouth daily. (SELECT-OB + DHA) 29 mg [...] as of this encounter (statuses as of 09/20/2020) Active Problems Problem Noted Date Nausea & [...] Obesity in 01/25/2015 Overview: ICD10 Diagnosis Term Race And Sports Book Writer Utility Encounter for IUD removal and reinsertion 01/18/2015 ASCUS on Pap smear 04/15/2014 Estimated Date of Delivery Comments Yes 04/11/2021 Based on Ultrasound, FHT: 127, Transverse Presentation, Placen ta Too early to evaulate documented as of this encounter (statuses as of 09/20/2020) Resolved Problems Problem Noted Date Resolved Date 37 weeks gestation of 12/18/2018 01/08/20 19 [place] Hick's contraction 12/12/2018 01/08/2019 Abnormal maternal glucose [...] management 01/25/2015 05/20/2018 Overview: ICD10 Diagnosis Term Race And Sports Book Writer Utility Breast tenderness in female 01/25/2015 05/20/2018 Not immune to rubella 04/16/2014 06/04/2016 Overview: ICD10 Diagnosis Term Race And Sports Book Writer Utility documented as of this encounter (statuses as of 09/20/2020) Immunizations Name Administration Dates Next Due HPV9 06/04/2016 MMR 12/20/2018 (Deferred: - not available f [facility]) TDAP 04/06/2015 TDAP (ADACEL) [...] 10/06/2020 Routine Visit OB Satellites Lauren Fernandez, FOREST TECHNOLOGY PROFESSOR [address] [address] 15 [phone] Health Maintenance Due Date Last Done Comments [...] Name Priority Date/Time Associated Diagnosis Comme nts EXTERNAL PROVIDER Routine 09/20/2020 12:01 AM CDT RECORDS documented in this encounter Results Not on filedocumented in this encounter Insurance Payer Benefit Plan / Subscriber ID Effective Phone Address T ype Group Dates ASIA BETANCOURT [id number] 2018-Anupama [address] Medic [place] [id number] MANA[place] MEDICAID [place] documented as of this encounter Advance Directives Type Date Recorded Patient Bi Tester Explanati on Advance Directives and Living Will Power of Junior Assistant Manager Name Relationship Healthcare Agent Relationship Co mmunication Floyd Holloway Health Care Agent (Work) Preet Coffey Other Health Care Agent [place] Fuentes Spouse First [facility] Agent (Mobile)[phone] (Work)
[2020-09-24 08:34] LABS: Urine Specific Gravity 1.025 (1.005-1.030)
[2020-09-24 08:35] LABS: Urine Blood NEGATIVE (NEG); Urine Glucose NEGATIVE (NEG); Urine Protein NEGATIVE (NEG)
[2020-09-24 08:51] LABS: Absolute Lymphocytes (CBC) 1.6 K/uL (0.7-4.9); Basophils % 0.5 % (0-1.3); Hematocrit 41.8 % (36.0-45.0); Lymphocytes % 21.5 % (15.3-44.8)
[2020-09-24] MEDS ORDERED: MORPHINE 2 MG/ML SYR ONE ×2 (09:01→10:00)
[2020-09-24] MEDS ORDERED: ONDANSETRON 4 MG/2 ML VIAL ONE ×2 (09:01→09:55)
[2020-09-24] MEDS ORDERED: NA CHLORIDE 0.9% 2,000 ML ONE (09:01)
[2020-09-24 09:22] LABS: ALT/SGPT 20 U/L (12-78); AST/SGOT 9 U/L (15-37); Albumin 3.5 g/dL (3.4-5.0); Alkaline Phosphatase 55 U/L (45-117); BUN Blood Urea Nitrogen 4 mg/dL (7-18); Bicarbonate 24 mmol/L (21-32); Bilirubin Total 0.4 mg/dL (0.2-1.0); Glucose Level 98 mg/dL (74-106); HCG, Quantitative 64691 mIU/mL (1-3); Lipase 46 U/L (73-393); Potassium 3.9 mmol/L (3.5-5.1); Protein, Total 7.2 g/dL (6.4-8.2); Sodium Level 138 mmol/L (136-145)
--- NOTE | 2020-09-24 09:36 | ER ---
Nurse's Notes Formerly [facility] Name: Suraj Fuentes Age: 29 yrs Sex: Female : 1990 Arrival Date: 09/24/2020 Time: 08:17 Bed 7 Private MD: Diagnosis: Vomiting of , unspecified; related conditions, unspecified, first trimester Presentation: 09/24 08:32 Chief complaint: Patient states: N/V and cramping to R lower quadrant that began at ss 0700 this morning. Pt reports she is 11 weeks . HX of Hyperemesis gravidarum. Coronavirus screen: Client denies travel out of the [place] in the last 14 days. Ebola Screen: Patient denies exposure to infectious person. Patient denies travel to an Ebola-affected area in the 21 days before illness onset. Initial Sepsis Screen: Does the patient meet any 2 criteria? No. Patient's initial sepsis screen is negative. Does the patient have a suspected source of infection? No. Patient's initial sepsis screen is negative. Risk Assessment: Do you want to hurt yourself or someone else? Patient reports no desire to harm self or others. Onset of symptoms was September 24, 2020. 08:32 Method Of Arrival: Wheelchair ss 08:32 Acuity: SHAW 3 ss SPLUNK ARCHITECT: 08:34 4, Full Term 3, Premature 0, 0, Living 3 jessica Historical: - Allergies: 08:33 Ibuprofen; ss 08:33 ORANGES; ss - PMHx: 08:33 Pancreatitis; ss 09:05 hyperemesis gravidarum; ss - PSHx: 08:33 Appendectomy; ; ss - Immunization history:: Adult Immunizations up to date. - Social history:: Smoking status: Patient denies any tobacco usage or history of. - Family history:: not pertinent. Screenin:33 Abuse screen: Denies threats or abuse. Denies injuries from another. Nutritional ss screening: No deficits noted. Tuberculosis screening: Never had TB. Fall Risk None identified. Assessment: 08:33 General: Appears distressed, uncomfortable, Behavior is cooperative, restless, Denies ss fever, fatigue, chills. Pain: Complains of pain in right lower quadrant Pain currently is 10 out of 10 on a pain scale. Quality of pain is described as crampy, Pain began 0700 this morning Is continuous. Neuro: Level of Consciousness is awake, alert, obeys commands, Oriented to person, place, time, situation. Cardiovascular: Capillary refill < 3 seconds is brisk in bilateral fingers. Respiratory: Airway is patent Respiratory effort is even, unlabored, Respiratory pattern is regular, symmetrical. GI: Bowel sounds present X 4 quads. Abd is soft X 4 quads Abdomen is tender to palpation in right lower quadrant Reports lower abdominal pain, nausea, vomiting. : Denies burning with urination, urinary frequency, vaginal bleeding. EENT: Oral mucosa is moist. Derm: Skin is intact, is healthy with good turgor, Skin is dry, Skin is pink, warm \T\ dry. normal. Musculoskeletal: Circulation, motion, and sensation intact. Range of motion: intact in all extremities, Swelling absent. 08:58 Reassessment: US at bedside. ss 09:01 Reassessment: Pt describes pain as cramping/ pinching. ss 09:50 Reassessment: Pt reports that her nausea has no changed since initial medicaiton ss administration. Additional Zofran ordered and administered. Pt also reports that her pain has come down from a 10/10 to 8/10. Additional dose of morphine given as ordered. 09:57 Reassessment: awaiting for 2nd liter of NS to infuse prior to discharge home. ss 10:40 Reassessment: Patient appears in no apparent distress at this time. Patient and/or ss family updated on plan of care and expected duration. Pain level reassessed. Patient is alert, oriented x 3, equal unlabored respirations, skin warm/dry/pink. Patient states feeling better. Patient states symptoms have improved. Vital Signs: 08:32 BP 118 / 76; Pulse 87; Resp 26; Temp 97.9(TE); Pulse Ox 99% on R/A; Weight 81.19 kg; ss Height 5 ft. 4 in. (162.56 cm); Pain 10/10; 09:02 Pulse 81; Resp 25; Pulse Ox 100% on R/A; ss 10:13 BP 104 / 50; Pulse 89; Resp 17; Pulse Ox 98% on R/A; Pain 6/10; ss 10:40 BP 137 / 75; Pulse 75; Resp 15; Pulse Ox 100% on R/A; Pain 5/10; ss 08:32 Body Mass Index 30.72 (81.19 kg, 162.56 cm) ED Course: 08:17 Patient arrived in ED. as 08:17 Pancho Greene MD is Attending Physician. jessica 08:33 Triage completed. ss 08:33 Arm band placed on right wrist. Patient placed in an exam room. ss 08:33 Patient has correct armband on for positive identification. Bed in low position. Call ss light in reach. 08:35 Rita Meza, ALFONZO is Primary Nurse. ss 08:40 Missed attempt(s): 20 gauge in left antecubital area. mh5 08:45 Inserted saline lock: 22 gauge in right forearm, using aseptic technique. Blood ss collected. 08:54 Urine Culture Sent. 5 08:55 Placed in gown. Side rails up X 1. Adult w/ patient. Pulse ox on. NIBP on. mh5 09:33 Michael Carson MD is Referral Physician. jessica 09:47 Ultrasound completed. Patient tolerated well. Notified ED Physician taras. sg3 09:47 US Transvaginal Ob In Process Unspecified. EDMS 10:53 No provider procedures requiring assistance completed. ss 11:06 IV discontinued, intact, bleeding controlled, No redness/swelling at site. Pressure ss dressing applied. Administered Medications: 08:50 Drug: Zofran (Ondansetron) 4 mg Route: IVP; Site: right forearm; ss 09:45 Follow up: Response: No adverse reaction; No change in condition ss 08:50 Drug: NS 0.9% 1000 ml Route: IV; Rate: 1 bolus; Site: right forearm; ss 09:49 Follow up: IV Status: Completed infusion; IV Intake: 1000ml ss 08:55 Drug: morphine 2 mg Route: IVP; Site: right forearm; ss 09:45 Follow up: Response: No adverse reaction; Pain is decreased ss 09:45 Drug: Zofran (Ondansetron) 4 mg Route: IVP; Site: right forearm; ss 10:09 Follow up: Response: No adverse reaction; No change in condition ss 09:49 Drug: NS 0.9% 1000 ml Route: IV; Rate: 1 bolus; Site: right forearm; ss 11:06 Follow up: IV Status: Completed infusion; IV Intake: 1000ml ss 09:49 Drug: morphine 2 mg Route: IVP; Site: right forearm; ss 11:01 Follow up: Response: No adverse reaction; Pain is decreased ss 10:09 Drug: Phenergan 12.5 mg Route: IVP; Site: right forearm; ss 11:02 Follow up: Response: No adverse reaction; Marked relief of symptoms; Nausea is decreasedss 10:13 Drug: Pepcid 20 mg Route: IVP; Site: right forearm; ss 11:02 Follow up: Response: No adverse reaction; Marked relief of symptoms ss Intake: 09:49 IV: 1000ml; Total: 1000ml. ss 11:06 IV: 1000ml; Total: 2000ml. ss Outcome: 09:35 Discharge ordered by . jessica 10:53 Condition: improved ss 10:53 Discharge instructions given to patient, family, Instructed on discharge instructions, follow up and referral plans. medication usage, Demonstrated understanding of instructions, follow-up care, medications, Prescriptions given X 4. 11:06 Discharged to home ambulatory, with family. ss 11:06 Patient left the ED. ss Signatures: Dispatcher [employer] EDPancho Edward MD MD cha Martinez, Amelia as Smirch, Shelby, RN RN ss Martinez, Alesha 5 Norah Cochran 3 Corrections: (The following items were deleted from the chart) 09:05 08:33 PMHx: hyperemesis gravidum; ss ss
--- NOTE | 2020-09-24 09:36 | EDPHYS ---
Physician Documentation [facility] Name: Suraj Fuentes Age: 29 yrs Sex: Female : 1990 Arrival Date: 09/24/2020 Time: 08:17 Bed 7 Private MD: ZOYA Physician Pancho Greene HPI: 09/24 08:34 This 29 yrs old Female presents to ER via Wheelchair with complaints of jessica Abdominal Cramping - 11 wks preg, Vomiting. 08:34 The patient presents to the emergency department with abdominal pain, of the left lower jessica quadrant, nausea and vomiting. The estimated gestational age is 11 weeks. course: care: at a clinic. Previous pregnancies: in previous pregnancies patient has had vaginal delivery. Associated signs and symptoms: Pertinent positives: abdominal pain, nausea, vomiting. The patient has experienced similar episodes in the past, several times. 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 - Social history:: Smoking status: Patient denies any tobacco usage or history of. - Family history:: not pertinent. ROS: 08:34 Constitutional: Negative for fever, chills, and weight loss, Eyes: Negative for injury, jessica pain, redness, and discharge, ENT: Negative for injury, pain, and discharge, Neck: Negative for injury, pain, and swelling, Cardiovascular: Negative for chest pain, palpitations, and edema, Respiratory: Negative for shortness of breath, cough, wheezing, and pleuritic chest pain, Back: Negative for injury and pain, : Negative for injury, bleeding, discharge, and swelling, MS/Extremity: Negative for injury and deformity, Skin: Negative for injury, rash, and discoloration, Neuro: Negative for headache, weakness, numbness, tingling, and seizure, Psych: Negative for depression, anxiety, suicide ideation, homicidal ideation, and hallucinations, Allergy/Immunology: Negative for hives, rash, and allergies, Endocrine: Negative for neck swelling, polydipsia, polyuria, polyphagia, and marked weight changes, Hematologic/Lymphatic: Negative for swollen nodes, abnormal bleeding, and unusual bruising. 08:34 Abdomen/GI: Positive for abdominal pain, abdominal cramps, of the right lower quadrant and left lower quadrant. Exam: 08:34 Constitutional: This is a well developed, well nourished patient who is awake, alert, jessica and in no acute distress. Head/Face: Normocephalic, atraumatic. Eyes: Pupils equal round and reactive to light, extra-ocular motions intact. Lids and lashes normal. Conjunctiva and sclera are non-icteric and not injected. Cornea within normal limits. Periorbital areas with no swelling, redness, or edema. ENT: Nares patent. No nasal discharge, no septal abnormalities noted. Tympanic membranes are normal and external auditory canals are clear. Oropharynx with no redness, swelling, or masses, exudates, or evidence of obstruction, uvula midline. Mucous membranes moist. Neck: Trachea midline, no thyromegaly or masses palpated, and no cervical lymphadenopathy. Supple, full range of motion without nuchal rigidity, or vertebral point tenderness. No Meningismus. Chest/axilla: Normal chest wall appearance and motion. Nontender with no deformity. No lesions are appreciated. Cardiovascular: Regular rate and rhythm with a normal S1 and S2. No gallops, murmurs, or rubs. Normal PMI, no JVD. No pulse deficits. Respiratory: Lungs have equal breath sounds bilaterally, clear to auscultation and percussion. No rales, rhonchi or wheezes noted. No increased work of breathing, no retractions or nasal flaring. Back: No spinal tenderness. No costovertebral tenderness. Full range of motion. Pelvic Exam: Normal external genitalia. Speculum exam with closed cervical os, no discharge or bleeding noted. Bimanual exam with normal adnexa, no adnexal or cervical motion tenderness. Normal uterus. Female : Normal external genitalia. Skin: Warm, dry with normal turgor. Normal color with no rashes, no lesions, and no evidence of cellulitis. MS/ Extremity: Pulses equal, no cyanosis. Neurovascular intact. Full, normal range of motion. Neuro: Awake and alert, GCS 15, oriented to person, place, time, and situation. Cranial nerves II-XII grossly intact. Motor strength 5/5 in all extremities. Sensory grossly intact. Cerebellar exam normal. Normal gait. Psych: Awake, alert, with orientation to person, place and time. Behavior, mood, and affect are within normal limits. 08:34 Abdomen/GI: Inspection: abdomen appears normal, Bowel sounds: normal, Palpation: mild abdominal tenderness, in the right lower quadrant and left lower quadrant. Vital Signs: 08:32 BP 118 / 76; Pulse 87; Resp 26; Temp 97.9(TE); Pulse Ox 99% on R/A; Weight 81.19 kg; ss Height 5 ft. 4 in. (162.56 cm); Pain 10/10; 09:02 Pulse 81; Resp 25; Pulse Ox 100% on R/A; ss 10:13 BP 104 / 50; Pulse 89; Resp 17; Pulse Ox 98% on R/A; Pain 6/10; ss 10:40 BP 137 / 75; Pulse 75; Resp 15; Pulse Ox 100% on R/A; Pain 5/10; ss 08:32 Body Mass Index 30.72 (81.19 kg, 162.56 cm) MDM: 08:23 Patient medically screened. jessica 08:40 Differential diagnosis: Data reviewed: vital signs, nurses notes, EMS record, lab test jessica result(s), radiologic studies, ultrasound. Data interpreted: ekg monitor: rate is 87 beats/min, rhythm is regular, Pulse oximetry: on room air is 99 %. Counseling: I had a detailed discussion with the patient and/or guardian regarding: the historical points, exam findings, and any diagnostic results supporting the discharge/admit diagnosis, lab results, radiology results. 09/24 08:32 Order name: Urine Dipstick--Ancillary (enter results); Complete Time: 09:32 em1 09/24 08:32 Order name: Urine --Ancillary (enter results); Complete Time: 09:32 em1 09/24 08:34 Order name: Quantitative Hcg; Complete Time: 09:32 jessica 09/24 08:34 Order name: Basic Metabolic Panel jessica 09/24 08:34 Order name: CBC with Diff; Complete Time: 09:32 jessica 09/24 08:34 Order name: Comprehensive Metabolic Panel; Complete Time: 09:32 jessica 09/24 08:34 Order name: US Transvaginal Ob jessica 09/24 08:34 Order name: Lipase; Complete Time: 09:32 [facility] 09/24 08:34 Order name: Urine Culture [facility] 09/24 08:34 Order name: Urine Test (obtain specimen); Complete Time: 08:45 [facility] 09/24 08:34 Order name: IV Saline Lock; Complete Time: 08:36 [facility] 09/24 08:34 Order name: Labs collected and sent; Complete Time: 08:36 [facility] 09/24 08:34 Order name: NPO; Complete Time: 08:36 [facility] 09/24 08:34 Order name: Urine Dipstick-Ancillary (obtain specimen); Complete Time: 08:36 [facility] Administered Medications: 08:50 Drug: Zofran (Ondansetron) 4 mg Route: IVP; Site: right forearm; ss 09:45 Follow up: Response: No adverse reaction; No change in condition ss 08:50 Drug: NS 0.9% 1000 ml Route: IV; Rate: 1 bolus; Site: right forearm; ss 09:49 Follow up: IV Status: Completed infusion; IV Intake: 1000ml ss 08:55 Drug: morphine 2 mg Route: IVP; Site: right forearm; ss 09:45 Follow up: Response: No adverse reaction; Pain is decreased ss 09:45 Drug: Zofran (Ondansetron) 4 mg Route: IVP; Site: right forearm; ss 10:09 Follow up: Response: No adverse reaction; No change in condition ss 09:49 Drug: NS 0.9% 1000 ml Route: IV; Rate: 1 bolus; Site: right forearm; ss 11:06 Follow up: IV Status: Completed infusion; IV Intake: 1000ml ss 09:49 Drug: morphine 2 mg Route: IVP; Site: right forearm; ss 11:01 Follow up: Response: No adverse reaction; Pain is decreased ss 10:09 Drug: Phenergan 12.5 mg Route: IVP; Site: right forearm; ss 11:02 Follow up: Response: No adverse reaction; Marked relief of symptoms; Nausea is decreasedss 10:13 Drug: Pepcid 20 mg Route: IVP; Site: right forearm; ss 11:02 Follow up: Response: No adverse reaction; Marked relief of symptoms ss Disposition: 09/24/20 09:35 Discharged to Home. Impression: Vomiting of , unspecified, related conditions, unspecified, first trimester. - Condition is Stable. - Discharge Instructions: Hyperemesis Gravidarum, Morning Sickness, Liak-ir-Vays, Nausea and Vomiting, Adult, Morning Sickness, First Trimester of , Octx-ma-Wpee, First Trimester of , Pelvic Rest. - Prescriptions for Diclegis 10- 10 mg Oral tablet,delayed release (DR/EC) - take 1 tablet by ORAL route 3 times per day and 2 tablets at bedtime; 60 tablet. Vitamin 27- 0.8 mg Oral Tablet - take 1 tablet by ORAL route once daily; 30 tablet. Zofran 4 mg Oral Tablet - take 1 tablet by ORAL route every 12 hours As needed; 20 tablet. Phenergan 25 mg Rectal Suppository - insert 1 suppository by RECTAL route every 6 hours As needed; 12 suppository. - Medication Reconciliation Form, Thank You Letter, Antibiotic Education, Prescription Opioid Use form. - Follow up: Private Physician; When: 2 - 3 days; Reason: Recheck today's complaints, Continuance of care, Re-evaluation by your physician. Follow up: Michael Carson; When: 2 - 3 days; Reason: Recheck today's complaints, Re-evaluation by your physician. - Problem is new. - Symptoms have improved. Signatures: Dispatcher [employer] EDMS Pancho Greene MD MD cha Smirch, Shelby, RN RN ss Corrections: (The following items were deleted from the chart) 09:05 08:33 PMHx: hyperemesis gravidum; ss ss 11:06 09:35 09/24/2020 09:35 Discharged to Home. Impression: Vomiting of , ss unspecified; related conditions, unspecified, first trimester. Condition is Stable. Discharge Instructions: Hyperemesis Gravidarum, Morning Sickness, Uios-ht-Yqoi, Nausea and Vomiting, Adult, Morning Sickness, First Trimester of , Nhro-hr-Afpp, First Trimester of , Pelvic Rest. Prescriptions for Diclegis 10-10 mg Oral tablet,delayed release (DR/EC) - take 1 tablet by ORAL route 3 times per day and 2 tablets at bedtime; 60 tablet, Vitamin 27-0.8 mg Oral Tablet - take 1 tablet by ORAL route once daily; 30 tablet, Zofran 4 mg Oral Tablet - take 1 tablet by ORAL route every 12 hours As needed; 20 tablet, Phenergan 25 mg Rectal Suppository - insert 1 suppository by RECTAL route every 6 hours As needed; 12 suppository. and Forms are Medication Reconciliation Form, Thank You Letter, Antibiotic Education, Prescription Opioid Use. Follow up: Private Physician; When: 2 - 3 days; Reason: Recheck today's complaints, Continuance of care, Re-evaluation by your physician. Follow up: Michael Carson; When: 2 - 3 days; Reason: Recheck today's complaints, Re-evaluation by your physician. Problem is new. Symptoms have improved. jessica
[2020-09-24] MEDS ORDERED: PROMETHAZINE INJ 25 MG/ML AMP ONE (10:20)
[2020-09-24] MEDS ORDERED: FAMOTIDINE 20 MG/2 ML VIAL IV ONE (10:23)
--- NOTE | 2020-09-24 10:48 | RAD REPORT ---
EXAM DESCRIPTION: US - Transvaginal OB - 09/24/2020 9:47 am CLINICAL HISTORY: with pelvic pain COMPARISON: August 25, 2020 FINDINGS: Single live intrauterine is in transverse presentation. Sumas-rump length 6 cent imeters. Cardiac activity 143 beats per minute. Amniotic fluid is within normal limits. The placenta is anterior. Cervix 4.1 centimeters. Neither ovary was seen secondary to overlying bowel gas. No significant free fluid is seen. IMPRESSION: Single live intrauterine with an estimated gestational age 12 weeks 3 days Transverse presentation If a survey is desired it should be performed in approximately 6 weeks
[2020-09-24 11:17] VITALS: TEMP 97.9
[2020-09-24 11:22] VITALS: BP 137/75; O2SAT 100
== END 2020-09-24 11:06 | disposition home or self-care (01) ==
LOC: ER 08:15
DX: O21.9 Vomiting of pregnancy, unspecified (principal); Z3A.11 11 weeks gestation of pregnancy; Z88.6 Allergy status to analgesic agent; Z91.018 Allergy to other foods
CPT/HCPCS: 96361; 87088; 85025; 87086; 36415; 81025; 84702; 81003; 83690; 80053; 76817; 96375; 96374; 99284; J2550; J2270 ×2; J7030; J2405 ×2

== ENCOUNTER 2020-09-27 01:34 | Emergency (ER) | payer MEDICAID ==
--- OUTSIDE RECORDS SUMMARY | 2020-09-27 01:37 | XMS REPORT | Continuity of Care Document ---
:1990 Author Organization [facility] t Address [address] [place] [address] Care Team Providers Name Role Phone Doctor Unassigned, Name Attending Clinician Unavailable Shirin FRANKLIN, Keerthi Attending Clinician Kevin FRANKLIN Attending Clinician Akinsisushma WHCNP, C Attending Clinician Jim CAGE MANAGER, R Attending Clinician Kevin FRANKLIN Admitting Clinician [...] ID 2020-09-20 2020-09-20 Orders Doctor EDUARDO [id number] 00:00:00 00:00:00 Only UnassignedSRAVAN [id number] [place] [facility] [id number] 2020-09-09 2020-09-10 [facility] Marcelo Carpio [id number] 19:39:00 16:45:00 Encounter Karlie Brown [id number] [facility] [id number] 2020-09-09 2020-09-09 Telephone Vitaliy [facility] [id number] 00:00:00 00:00:00 Graciela C POWER SAW OPERATOR [id number] REGIONAL [id number] MATERNAL [id number] & CHILD 107 [facility] 2020-09-09 2020-09-09 [place] [facility] [id number] 00:00:00 00:00:00 Roshunda R POWER SAW OPERATOR [id number] [facility] [id number] MATERNAL [id number] & CHILD 107 [facility] 2020-09-08 2020-09-08 Routine [facility] [id number] 10:23:36 11:14:26 Roshunda R POWER SAW OPERATOR [id number] Visit REGIONAL [id number] MATERNAL [id number] & CHILD 107 [facility] 2020-09-08 2020-09-08 [place] [facility] [id number] 00:00:00 00:00:00 Roshunda R POWER SAW OPERATOR [id number] [facility] [id number] MATERNAL [id number] & CHILD 107 [facility] 2020-09-07 2020-09-07 [place] [facility] [id number] 00:00:00 00:00:00 Roshunda R POWER SAW OPERATOR [id number] REGIONAL [id number] MATERNAL [id number] & CHILD 107 [facility] Results This patient has no known results.
--- OUTSIDE RECORDS SUMMARY | 2020-09-27 01:40 | XMS REPORT | Summary of Care ---
:[address] [facility] Address [address] [place] [address] Care Team Providers Name Role Phone Manjit E Insurance H[employer] Lauren Fernandez [facility] Primary Care Provider Reason for Visit Reason Comments Assessment wanting to terminate pregnan cy Encounter Details Date Type Department Care Team Description 08/26/2020 Telephone [facility]- Cornelius Fernandez, As sessment (wanting to [facility] terminate ) [address] [facility] [address] [place] [address] [place], [place] [phone] Allergies Active Allergy Reactions Severity Noted Date Comments Ibuprofen Hives 04/15/2014 [place] Hives 04/15/2014 Sodium Citrate (Bulk) Nausea and/or Vomiting 9 documented as of this encounter (statuses as of 08/26/2020) Medications Medication Sig Dispensed Refills Start Date End Date Status ondansetron HCl Take by mouth. 0 Active (ZOFRAN ORAL) vit Take 1 Packet by 30 Each 6 08/03/2020 Active 34-jvnv-uccxe-dha mouth daily. 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 [address] [id number] [phone] Health Maintenance Due Date Last Done Comments [...] Address T ype Group Dates ASIA BETANCOURT [id number] 2018-Anupama [address] [place] [id number] MANAGED [place], [place] documented as of this encounter Advance Directives Type Date Recorded 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 Health Care Agent (Mobile)
--- OUTSIDE RECORDS SUMMARY | 2020-09-27 01:40 | XMS REPORT | Summary of Care ---
:1990 Author Organization [facility] - Health Address [address] [place] [address] Care Team Providers Name Role Phone Gamal Saravia Insurance Hmo Lauren Fernandez Primary Care Provider Reason for Referral (Routine) Status Reason Specialty Diagnoses / Referred By Referred To Procedures Contact Contact New Request OG-OBSTETRICS & Diagnoses Nausea and vomiting during Aufderheide, Leann GYNECOLOGY Procedures Discharge Follow-Up: Specialty Service OG-OBSTETRICS & GYNECOLOGY; 3-5 Days MD Merna [address] [place] [address]. [place] [address] Reason for Visit Reason Comments Abdominal Pain Vomiting Auth/Cert Status Reason Specialty Diagnoses / Referred By Referred To Procedures Contact Contact Emergency Medicine Ed-Raquel rgency Dept [address] [place] [phone] Fax: Encounter Details Date Type Department Care Team Description 08/28/2020 - Emergency [facility] Monika Allen MD [address] [place] [phone] Abdominal pain during in first trimester (Primary Dx); 08/29/2020 Department Anthonyerjessi, Leann Bauman MD [address] [place] [phone] Nausea and vomiting during [address] [place] [phone] Allergies Active Allergy Reactions Severity Noted Date Comments Ibuprofen Hives 04/15/2014 [place] Hives 04/15/2014 Sodium Citrate (Bulk) Nausea and/or Vomiting 9 documented as of this encounter (statuses as of 08/29/2020) Medications Medication Sig Dispensed Refills Start Date End Date Status ondansetron HCl Take by mouth. 0 Active (ZOFRAN ORAL) vit Take 1 Packet by 30 Each 6 08/03/2020 Active 01-effj-cnxde-dha mouth daily. 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 SCHEDULE AN APPOINTMENT ONLINE AT [email or web address] 2. OR CALL THE [facility] AT OR 3. OR CALL YOUR [facility] PHYSICIAN'S OFFICE DIRECTLY IF YOU ARE ALREADY AN ESTABLISHED [facility] PATIENT. RETURN TO ER FOR WORSENING OF SYMPTOMS. AttachmentsThe following attachments cannot be sent through Care Everywhere. : Your First Trimester Changes (Thai)Severe Morning Sickness (Hyperemesis Gravidarum) (Thai)documented in this encounter ED Notes Arsalan Salazar [...] site, catheter intact. Patient ambulatory to the [facility] accompanied by visitors x2, in possession [...] - 08/28/2020 11:47 PM CDT[facility] Nurse Note - Ada [...] cough, SOB. . Patient was seen in [place] for same complaint, patient's s/o states "they [...] 08/31/2020 Routine Visit OB Satellites Lauren Fernandez, WASTE DISPOSAL LEAKAGE TESTER [address] [address] [phone] Health Maintenance Due Date Last Done Comments [...] Abdominal pain Re sults for this PANEL (90399) CDT [facility] (ALB,T.PRO,BILI first trimester the resul ts T,BU/BC,ALT,AST,ALK section. PHOS) documented in this encounter Results Urinalysis (08/29/2020 12:26 AM CDT) Pathologist Sig nature APPEARANCE Clear Clear [facility] COLOR Trudi (A) Yellow [facility] PH 7.0 4.8 - 8.0 [facility] SP GRAVITY 1.030 1.003 - 1.030 [facility] GLU U QUAL Normal Normal [facility] BLOOD Negative Negative [facility] KETONES 80 mg/dL (A) Negative [facility] PROTEIN 30 mg/dL (A) Negative [facility] UROBILIN 2.0 mg/dL (A) Normal [facility] BILIRUBIN Negative Negative [facility] NITRITE Negative Negative [facility] LEUK HO Negative Negative [facility] RBC/HPF 3 0 - 3 HPF [facility] WBC/HPF 3 0 - 5 HPF [facility] BACTERIA Negative Negative [facility] MUCOUS Marked (A) Negative LPF [facility] SQ EPITH 4 (H) <=2 HPF [facility] Specimen Urine - URINE, CLEAN CATCH Performing Organization Address City/State/Zipcode Phone Number [facility] CLIA: [id number] [place], [place] [address] [address] [place], [place] [address]vd TOTAL BHCG (QUANTITATIVE) (08/28/2020 10:08 PM CDT) Pathologist Sig nature BETA HCG 140,720.00 Non- female [facility] and male patients: SERVICES <5 mIU/mL Specimen Blood - VENOUS Narrative Performed At [facility] Gestational Age Rang e (mIU/mL) 1-10 Weeks 4 [phone] 11-15 Weeks 11 [phone] 16-22 Weeks 74 80-018625 23-40 Weeks 15 [phone] Biotin has been reported to cause a negative bias, int erpret results relative to patient's use of biotin. Performing Organization Address City/[facility] Phone Number [facility] CLIA: [id number] [place] [address] [place] [address] Hepatic Function Panel (ALB, T.PRO, BILI T, BU/BC, ALT, AST, ALK PHOS) (08/28/2020 10:08 PM CDT) Pathologist Sig nature TOTAL BILI 0.7 0.1 - 1.1 mg/dL [facility] BILI UNCON 0.9 0.1 - 1.1 mg/dL [facility] BILI CONJ 0.0 0.0 - 0.3 mg/dL [facility] T PROTEIN 6.8 6.3 - 8.2 g/dL [facility] ALBUMIN 4.1 3.5 - 5.0 g/dL [facility] ALK PHOS 56 34 - 122 U/L [facility] ALTv 21 5 - 35 U/L [facility] AST(SGOT) 20 13 - 40 U/L [facility] Specimen Blood - VENOUS Performing Organization Address City/[facility]/Zipcode Phone Number [facility] CLIA: [id number] [place] [id number] [address] [place] [address] Basic Metabolic Panel (NA, K, CL, CO2, GLUCOSE, BUN, CREATININE, CA) (08/28/2020 10:08 PM CDT) NA 139 135 - 145 [facility] mmol/L SERVICES K 3.4 (L) 3.5 - 5.0 [facility] mmol/L SERVICES CL 108 98 - 108 mmol/L [facility] CO2 TOTAL 21 (L) 23 - 31 mmol/L [facility] AGAP 10 2 - 16 [facility] BUN 7 7 - 23 mg/dL [facility] GLUCOSE 99 70 - 110 mg/dL [facility] CREATININE 0.49 (L) 0.50 - 1.04 [facility] mg/dL SERVICES CALCIUM 9.0 8.6 - 10.6 [facility] mg/dL SERVICES eGFR Calculation 149.3 mL/min/1.73m2 [facility] (Non- SERVICES Cameroonian) eGFR Calculation 181.0 mL/min/1.73m2 [facility] () SERVICES Specimen Blood - VENOUS Narrative Performed At Association of Glomerular Filtration Rate (GFR) and St aging [facility] SERVICES of Kidney Disease* [...] . Performing Organization Address City/State/Zipcode Phone Number [facility] CLIA: [id number] [place] [address] [place] [address] CBC with Differential (08/28/2020 10:08 PM CDT) Pathologist Sig nature WBC 8.57 4.30 - 11.10 [facility] 10*3/L SERVICES RBC 4.62 3.93 - 5.25 [facility] 10*6/L SERVICES HGB 14.5 11.6 - 15.0 [facility] g/dL SERVICES HCT 40.7 35.7 - 45.2 % [facility] MCV 88.1 80.6 - 95.5 fL [facility] MCH 31.4 25.9 - 32.8 pg [facility] MCHC 35.6 (H) 31.6 - 35.1 [facility] g/dL SERVICES RDW-SD 38.5 (L) 39.0 - 49.9 fL [facility] RDW-CV 12.0 12.0 - 15.5 % [facility] PLT 187 166 - 358 [facility] 10*3/L SERVICES MPV 9.8 9.5 - 12.9 fL [facility] NRBC/100 WBC 0.0 0.0 - [...] VENOUS Performing Organization Address City/State/Zipcode Phone Number [facility] CLIA: [id number] [place] [address] [place] [address] documented in this encounter Visit Diagnoses Diagnosis [...] / Subscriber ID Effective Phone Address T [facility] Group Dates ASIA BETANCOURT [id number] 2018-Anupama S[employer] BOX Medic [place] [id number] MANA[place]ED [place] documented as of this encounter Advance Directives Type Date Recorded 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
--- OUTSIDE RECORDS SUMMARY | 2020-09-27 01:41 | XMS REPORT | Summary of Care ---
:1990 Author Organization [facility] - [facility] Address [address] [place] [address] Care Team Providers Name Role Phone Gamal Saravia Insurance Hmo Lauren Fernandez Primary Care Provider Reason for Referral (Routine) Status Reason Specialty Diagnoses / Referred By Referred To Procedures Contact Contact New Request Diagnoses Hyperemesis gravidarum Marisel Galvan, Procedures Discharge Follow-Up: Scheduling Assistant Lorena FRANKLIN [address] [place], [place] [id number] Reason for Visit Auth/Cert Status Reason Specialty Diagnoses / Procedures Referred By Lauren marquez To Contact Contact Obstetrics Diagnoses 7wks IUP hyperemesis J10c [address] [place] [phone] Phone: Fax: Encounter Details Date Type Department Care Team Description 08/30/2020 - Hospital Encounter Obstetrics and Jad Isaacs ea and vomiting 09/01/2020 Gynecology (J10C) MD Tyler during [address] [place] [phone] [phone] Allergies Active Allergy Reactions Severity Noted Date Comments Ibuprofen Hives 04/15/2014 [place] Hives 04/15/2014 Sodium Citrate (Bulk) Nausea and/or Vomiting 9 documented as of this encounter (statuses as of 09/01/2020) Medications Medication Sig Dispensed Refills Start End Date Status Date vit Take 1 Packet by 30 Each 6 Active 24-kulf-oorml-dha mouth daily. 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 Jewelry Enameler Utility Encounter for IUD removal and reinsertion 01/18/2015 ASCUS on Pap smear 04/15/2014 Estimated Date of Delivery Comments Yes 04/11/2021 Based on Ultrasound, FHT: 127, Transverse Presentation, Placen ta Too early to evaulate documented as of this encounter (statuses as of 09/01/2020) Resolved Problems Problem Noted Date Resolved Date 37 weeks gestation of 12/18/2018 01/08/20 19 [place] Hick's contraction 12/12/2018 01/08/2019 Abnormal maternal glucose [...] management 01/25/2015 05/20/2018 Overview: ICD10 Diagnosis Term Jewelry Enameler Utility Breast tenderness in female 01/25/2015 05/20/2018 Not immune to rubella 04/16/2014 06/04/2016 Overview: ICD10 Diagnosis Term Jewelry Enameler Utility documented as of this encounter (statuses [...] cannot be sent through Care Everywhere. Diet, [place] (Adult) (Mexican)documented in this encounter Progress Notes Major Velasquez [...] mL IV piggyback 25 mg IV Piggyback [id number] mg at 09/01/20 0552 pyridoxine (VITAMIN B-6) [...] 08/28/2020 21 No results found for: URICACID, [id number] No results found for: LDH Assessment/Plan: Suraj [...] tolerate PO for over 2 days - [place] ED Course: s/p 2L NS bolus, IV [...] 3 years - H/H, plt:14.5/ 40.7,187on [facility] PNY[facility]-325 bpm via M mode on admission BSUS Major Velasquez MD 09/01/2020 Associated attestation - Marisel Galvan MD - 09/01/2020 10:40 AM CDT I was rounding [facility] faculty for this patient and [...] 14.5 / 40.7, 187 on [facility]/28[facility]20 [facility] F[facility] 171-178 bpm via M mode on admission BSUS Major Velasquez MD - 08/31/2020 1:15 PM CDTJamiee Luly Fuentes [id number] 08/31/2020 1:15 PM Post-Rounds: - daily BMP [...] Physician: Cornelius Fernandez CHIEF COMPLAINT Transfer from [facility] ED HISTORY OF PRESENT ILLNESS Suraj Fuentes is a 29 year old at 8w0d who was transferred from [facility] ED for nausea and vomiting [...] for over 2 days. She went to [place] ED earlier this week (3-4 days ago), then presented to [facility] ED Saturday night.She was given 1L bolus, IV zofran, IV phenergan, and reglan, PO challenged with water/crackers, thensent home with renewed eRx vitamin B6. Reports PO zofran and Reglan not helping right now, therefore [facility]. [facility] ED Course: Afebrile, Pulse 71-86, BP [...] Manny Gray; Location: Labor and Delivery - [place] Past Medical History: Diagnosis Date Abnormal maternal [...] Oral Q6H Allergies and drug reactions: Ibuprofen, [place], and Sodium citrate (bulk) HOME MEDICATIONS Medications [...] (ZOFRAN ORAL) Take by mouth. Taking vit 95-hwvk-ulljf-dha (SELECT-OB + DHA) 29 mg iron-1 mg [...] 1H GTT Lab Results Component Value Date/Time [id number] 124 08/03/2020 02:17 PM CBC Lab Results [...] 05/20/2018 Obesity in 01/25/2015 ICD10 Diagnosis Term Jewelry Enameler Utility Resolved Hospital Problems No resolved problems [...] tolerate PO for over 2 days - [place] ED Course: s/p 2L NS bolus, IV [...] 14.5 / 40.7, 187 [facility] 171-178 bpm via M [...] - 08/31/2020 5:02 PM CDTFood Allergy and Cultural/Worship Food Preferences Consult Note: Spoke with patient's nurse today over the phone. Per nurse, patient with food allergy to oranges. Per allergy list patient with hives as reported reaction. Please see confirmed food allergy below. Confirmed Food Allergy: 1. [place] Reaction:Hives Confirmed Cultural Food Preferences: 1. None Confirmed Worship Food Preferences: 1. None Kary Coppola MS, RD, LD Clinical Dietitian RD Office: [phone] documented in this encounter Miscellaneous Notes Care Plan - Wendy Alan RN - 09/01/2020 12:23 PM CDT Problem: Discharge Planning - Antepartum Goal: Absence of seizure activity 09/01/2020 1223 by Wendy Alan RN Outcome: Adequate for discharge 09/01/2020 0753 by Wendy Alan RN Outcome: Progressing as expected Goal: Absence of venous thromboembolism 09/01/2020 1223 by Wenyd Alan RN Outcome: Adequate for discharge 09/01/2020 [...] 09/08/2020 Routine Visit OB Satellites Lauren Fernandez, HOSPICE NURSE [address] [address] 15 [phone] Name Type Priority Associated Diagnoses Order S [...] mL/min/1.73m2 [facility] (Non- SERVICES Icelandic) eGFR Calculation 194.7 mL/min/1.73m2 [facility] [...] in imaging tests) . Performing Organization Address City/[facility] Phone Number [facility] CLIA: [id number] [place], [place] [address] [address] [place] [address] URINALYSIS (08/31/2020 4:07 PM CDT) Pathologist Sig [...] URINE, CLEAN CATCH Performing Organization Address [facility] Phone Number [facility] CLIA: [id number] [place] [address] [place] [address] Type and Screen - ONCE Routine (08/31/2020 12:23 AM CDT) Pathologist [facility] ABO & RH A POSITIVE LAB Comment: Performed at [facility] Laboratory Services - [facility] Blood Bank [address] [place] [address] Toll Free: [phone] CLIA No. [id number] IAT Negative LAB Comment: Performed at [facility] Laboratory Services - [facility] Blood Bank [address] [place] [address] Toll Free: [phone] CLIA No. [id number] Specimen Blood - VENOUS Performing Organization Address City/[facility] Phone Number [facility] LAB BASIC METABOLIC PANEL (NA, K, CL, CO2, GLUCOSE, BUN, CREATININE, CA) (08/31/2020 12:17 AM CDT) [facility] NA 134 (L) 135 - 145 [facility] [...] mL/min/1.73m2 [facility] (Non- SERVICES Icelandic) eGFR Calculation 176.8 mL/min/1.73m2 [facility] [...] in imaging tests) . Performing Organization Address City/[facility]/Zipcode Phone Number [facility] CLIA: [id number] [place] [address] [place] [address] COVID-19 (ID NOW RAPID TESTING) (08/30/2020 11:37 PM CDT) SARS-CoV-2 Rapid ID Not Detected Not Detected [facility] NOW SERVICES Specimen Swab - NASOPHARYNGEAL SWAB Narrative Performed At [place] [facility] COVID-19 Assay is an isothermal nucleic acid [facility] amplification test intended for the qualitative detect ion of nucleic acid from SARS-CoV-2 viral RNA in nasopharynge al (HEALTH INFORMATICS SPECIALIST) specimens. It is used under Emergency Use [...] Number [facility] CLIA: [id number] [place] [address] [phone] [address] [facility] URINALYSIS (08/30/2020 10:44 PM CDT) Pathologist Sig [...] Number [facility] CLIA: [id number] [place] [address] [place] [address] documented in this encounter Visit Diagnoses Diagnosis [...] mL, Intravenous, ONCE, 1 dose, [facility] 08/30/20 at 2330, Routine potassium chloride 20 [...] Address T ype Group Dates ASIA BETANCOURT [id number] 2018-Anupama P [address] BOX Medic [place] [id number] MA[place] MED[place] documented as of this encounter Advance Directives Type Date Recorded Patient Sample Wrapper Explanati on Advance Directives and Living Will Power of Ui Ux Engineer Name Relationship Healthcare Agent Relationship Co mmunication Floyd Brown Father Health Care Agent Preet Coffey Other Health Care Agent [place] Gina Spouse [facility] Health Care Agent (Mobile)
--- OUTSIDE RECORDS SUMMARY | 2020-09-27 01:41 | XMS REPORT | Summary of Care ---
:1990 Author Organization [facility] Address [address] [place] [address] Care Team Providers Name Role Phone Gamal Saravia Insurance Hmo Lauren Fernandez DIRECTOR OF INCOME TAX Primary Care Provider Reason for Visit Reason Comments Assessment vomit Encounter Details Date Type Department Care Team Description 09/06/2020 Telephone [facility]- Cornelius Fernandez, As sessment (vomit) [facility] [address] [facility] [address] [place] [address] [place] [address] [phone] Allergies Active Allergy Reactions Severity Noted Date Comments Ibuprofen Hives 04/15/2014 [place] Hives 04/15/2014 Sodium Citrate (Bulk) Nausea and/or Vomiting 9 documented as of this encounter (statuses as of 09/06/2020) Medications Medication Sig Dispensed Refills Start Date End Date Status vit Take 1 Packet by 30 Each 6 08/03/2020 Active 77-pjpg-hqxgd-dha mouth daily. 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 Tourist Adviser Utility Encounter for IUD removal and [...] management 01/25/2015 05/20/2018 Overview: ICD10 Diagnosis Term Tourist Adviser Utility Breast tenderness in female 01/25/2015 05/20/2018 Not immune to rubella 04/16/2014 06/04/2016 Overview: ICD10 Diagnosis Term Tourist Adviser Utility documented as of this encounter [...] she went to [facility] 08/28/20 for N/V and has received fluids [...] has been loosing weight , please call [phone] (home) documented in this encounter Plan of Treatment Date Type Specialty Care Team Description 09/08/2020 Routine Visit OB Satellites Lauren Fernandez FNP [address] [address] [phone] Health Maintenance Due Date Last Done Comments [...] Address T e Group Dates ASIA BETANCOURT [id number] 2018-Anupama P [address] BOX Medic [place] [phone] MANA[place]ED [place] documented as of this encounter Advance Directives Type Date Recorded Patient Nuclear Technologist Explanati on Advance Directives and Living Will Power of Weed Cutter Name Relationship Healthcare Agent Relationship Co mmunication Floyd Brown Father Health Care Agent Preet Coffey Other Health Care Agent [place] Fuentes Spouse [facility] Health Care [phone] Agent (Mobile)
--- OUTSIDE RECORDS SUMMARY | 2020-09-27 01:42 | XMS REPORT | Summary of Care ---
:1990 Author Organization [facility] Address [address] [place] [address] Care Team Providers Name Role Phone Gamal Saravia Insurance Hmo Lauren Fernandez ELECTRICAL INSTRUMENT TECHNICIAN Primary Care Provider Reason for Visit Reason Comments Assessment vomit Encounter Details Date Type Department Care Team Description 09/06/2020 Telephone [facility]- Cornelius Fernandez, As sessment (vomit) [facility] [address] [facility] [address] [place] [address] [place] [address] [phone] Allergies Active Allergy Reactions Severity Noted Date Comments Ibuprofen Hives 04/15/2014 [place] Hives 04/15/2014 Sodium Citrate (Bulk) Nausea and/or Vomiting 9 documented as of this encounter (statuses as of 09/06/2020) Medications Medication Sig Dispensed Refills Start Date End Date Status vit Take 1 Packet by 30 Each 6 08/03/2020 Active 37-gidw-gotoo-dha mouth daily. 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 Advertising Copy Writer Utility Encounter for IUD removal and [...] management 01/25/2015 05/20/2018 Overview: ICD10 Diagnosis Term Advertising Copy Writer Utility Breast tenderness in female 01/25/2015 05/20/2018 Not immune to rubella 04/16/2014 06/04/2016 Overview: ICD10 Diagnosis Term Advertising Copy Writer Utility documented as of this encounter [...] female Patient stated she went to [facility] 08/28/20 for N/V and has received [...] has been loosing weight , please call [phone] (home) documented in this encounter Plan of Treatment Date Type Specialty Care Team Description 09/08/2020 Routine Visit OB Satellites Lauren Fernandez FNP [address] [address] [phone] Health Maintenance Due Date Last Done Comments [...] Address T e Group Dates ASIA BETANCOURT [id number] 2018-Anupama P O BOX Medic [place] [phone] MANA[place]ED MED[place] documented as of this encounter Advance Directives Type Date Recorded Patient Staffing Mgr Explanati on Advance Directives and Living Will Power of Sanitation Truck Driver Name Relationship Healthcare Agent Relationship Co mmunication Floyd Brown Father Health Care Agent Preet Coffey Other Health Care Agent [place] Fuentes Spouse [facility] Health Care [phone] Agent (Mobile)
--- OUTSIDE RECORDS SUMMARY | 2020-09-27 01:42 | XMS REPORT | Summary of Care ---
:1990 Author Organization [facility] Address [address] [place] [address] Care Team Providers Name Role Phone Gamal Saravia Insurance Hmo Lauren Fernandez CAMPGROUND CARETAKER Primary Care Provider Reason for Visit Reason Comments Assessment vomit Encounter Details Date Type Department Care Team Description 09/06/2020 Telephone [facility]- Cornelius Fernandez, As sessment (vomit) [facility] [address] [facility] [address] [place] [address] [place] [address] [phone] Allergies Active Allergy Reactions Severity Noted Date Comments Ibuprofen Hives 04/15/2014 [place] Hives 04/15/2014 Sodium Citrate (Bulk) Nausea and/or Vomiting 9 documented as of this encounter (statuses as of 09/06/2020) Medications Medication Sig Dispensed Refills Start End Date Status Date vit Take 1 Packet by 30 Each 6 Active 45-hlgt-qlsmq-dha mouth daily. 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 Hat Renovator Utility Encounter for IUD removal and reinsertion 01/18/2015 ASCUS on Pap smear 04/15/2014 Estimated Date of Delivery Comments Yes 04/11/2021 Based on Ultrasound, FHT: 127, Transverse Presentation, Placen ta Too early to evaulate documented as of this encounter (statuses as of 09/06/2020) Resolved Problems Problem Noted Date Resolved Date 37 weeks gestation of 12/18/2018 01/08/20 19 [place] Hick's contraction 12/12/2018 01/08/2019 Abnormal maternal glucose [...] management 01/25/2015 05/20/2018 Overview: ICD10 Diagnosis Term Hat Renovator Utility Breast tenderness in female 01/25/2015 05/20/2018 Not immune to rubella 04/16/2014 06/04/2016 Overview: ICD10 Diagnosis Term Hat Renovator Utility documented as of this encounter (statuses [...] female Patient stated she went to [facility] 08/28/20 for N/V and has received fluids [...] has been loosing weight , please call [phone] (home) documented in this encounter Plan of Treatment Date Type Specialty Care Team Description 09/08/2020 Routine Visit OB Satellites Lauren Fernandez, CAMPGROUND CARETAKER [address] [address] [phone] Health Maintenance Due Date Last Done Comments [...] Address T e Group Dates ASIA BETANCOURT [id number] 2018-Anupama Camacho O BOX Medic [place] [id number] MANAGED MEDICA[place] documented as of this encounter Advance Directives Type Date Recorded Patient Corsets Salesperson Explanati on Advance Directives and Living Will Power of Special Order Jeweler Name Relationship Healthcare Agent Relationship Co mmunication Floyd Brown Father Health Care Agent Preet Coffey Other Health Care Agent [place] Fuentes Spouse First [facility] Care Agent (Mobile)
--- OUTSIDE RECORDS SUMMARY | 2020-09-27 01:42 | XMS REPORT | Summary of Care ---
:1990 Author Organization [facility] Address [address] [place] [address] Care Team Providers Name Role Phone Gamal Saravia Insurance Hmo Lauren Fernandez SIGNAL REPAIRER Primary Care Provider Reason for Visit Reason Comments Assessment vomit Encounter Details Date Type Department Care Team Description 09/06/2020 Telephone [facility]- Cornelius Fernandez, As sessment (vomit) [facility] [address] [facility] [address] [place] [address] [place] [address] [phone] Allergies Active Allergy Reactions Severity Noted Date Comments Ibuprofen Hives 04/15/2014 [place] Hives 04/15/2014 Sodium Citrate (Bulk) Nausea and/or Vomiting 9 documented as of this encounter (statuses as of 09/06/2020) Medications Medication Sig Dispensed Refills Start End Date Status Date vit Take 1 Packet by 30 Each 6 Active 21-nnsp-ebqpk-dha mouth daily. 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 Sugar Laboratory Assistant Utility Encounter for IUD removal and reinsertion 01/18/2015 ASCUS on Pap smear 04/15/2014 Estimated Date of Delivery Comments Yes 04/11/2021 Based on Ultrasound, FHT: 127, Transverse Presentation, Placen ta Too early to evaulate documented as of this encounter (statuses as of 09/06/2020) Resolved Problems Problem Noted Date Resolved Date 37 weeks gestation of 12/18/2018 01/08/20 19 [place] Hick's contraction 12/12/2018 01/08/2019 Abnormal maternal glucose [...] management 01/25/2015 05/20/2018 Overview: ICD10 Diagnosis Term Sugar Laboratory Assistant Utility Breast tenderness in female 01/25/2015 05/20/2018 Not immune to rubella 04/16/2014 06/04/2016 Overview: ICD10 Diagnosis Term Sugar Laboratory Assistant Utility documented as of this encounter (statuses [...] old female Patient stated she went to [facility] and was given a shot of phenergan. Patient stated she wasgiven Tylenol but vomited and is pain. Stated her is taking her to [facility]. informed patient to f/u after and [...] old female Patient stated she went to [facility] 08/28/20 for N/V and has received [...] has been loosing weight , please call [phone] (home) documented in this encounter Plan of Treatment Date Type Specialty Care Team Description 09/08/2020 Routine Visit OB Satellites Lauren Fernandez FNP [address] [place], [place] [address] [phone] Health Maintenance Due Date Last Done Comments [...] Address T e Group Dates ASIA BETANCOURT [id number] 2018-Anupama Camacho O BOX Medic [place] [id number] MANAGED MEDICAID [place] documented as of this encounter Advance Directives Type Date Recorded Patient Network Mgr Explanati on Advance Directives and Living Will Power of Credit Administration Specialist Name Relationship Healthcare Agent Relationship Co mmunication Floyd Brown Father Health Care Agent Preet Coffey Other Health Care Agent [place] Fuentes Spouse [facility] Care Agent (Mobile)
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
--- OUTSIDE RECORDS SUMMARY | 2020-09-27 01:43 | XMS REPORT | Summary of Care ---
:1990 Author Organization [facility] Address [address] [place] [address] Care Team Providers Name Role Phone Gamal Saravia Insurance Hmo Lauren Fernandez Primary Care Provider Reason for Visit Reason Comments ROUTINE VISIT (Routine) Status Reason Specialty Diagnoses / Referred By Referred To Procedures Contact Contact New Request OB Satellites Diagnoses Hyperemesis gravidarum Marisel Galvan, Procedures Discharge Follow-Up: It Portfolio Manager Lorena FRANKLIN [address] [facility] [id number] [place] [address] Encounter Details Date Type Department Care Team Description 09/08/2020 Routine [facility]- Cornelius Fernandez upervision of high risk in first trimester (Primary Dx); Visit ELIZ Holland Previous section complicating p regnancy; [address] [place] [address] [place] (vaginal after ) trial; [address] [place] [address]; [place], [place], [place] Nausea and vomi ting during ; [phone] Obesity in [phone] Allergies Active Allergy Reactions Severity Noted Date Comments Ibuprofen Hives 04/15/2014 [place] Hives 04/15/2014 Sodium Citrate (Bulk) Nausea and/or Vomiting 9 documented as of this encounter (statuses as of 09/08/2020) Medications Medication Sig Dispensed Refills Start Date End Date Status vit Take 1 Packet by 30 Each 6 08/03/2020 Active 71-qilb-hvenx-dha mouth daily. 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 Hazardous Waste Technician Utility Encounter for IUD removal and reinsertion 01/18/2015 ASCUS on Pap smear 04/15/2014 Estimated Date of Delivery Comments Yes 04/11/2021 Based on Ultrasound, FHT: 127, Transverse Presentation, Placen ta Too early to evaulate documented as of this encounter (statuses as of 09/08/2020) Resolved Problems Problem Noted Date Resolved Date 37 weeks gestation of 12/18/2018 01/08/20 19 [place] Hick's contraction 12/12/2018 01/08/2019 Abnormal maternal glucose [...] management 01/25/2015 05/20/2018 Overview: ICD10 Diagnosis Term Hazardous Waste Technician Utility Breast tenderness in female 01/25/2015 05/20/2018 Not immune to rubella 04/16/2014 06/04/2016 Overview: ICD10 Diagnosis Term Hazardous Waste Technician Utility documented as of this encounter [...] in this encounter Progress Notes Cornelius Fernandez, TILE MACHINE OPERATOR - 09/08/2020 10:45 AM CDT Chief complaint: Chief Complaint Patient presents with ROUTINE VISIT HPI CC: Follow Up Visit Suraj Fuentes is a 29 year old, , /White female. Patient's last menstrual period was 06/08/2020 (approximate). She is 9w2d with an intrauterine . Her estimated date of delivery is 04/11/2021, by Ultrasound. She went to [facility] ER for nausea and vomitin g, Zofran [...] Manny Gray; Location: Labor and Delivery - [place] Social History Socioeconomic History Marital status: Spouse [...] sexual or emotional abuse. Only outside cats. Worship: None Patient lives with spouse and kids. [...] problems of obesity on future pregnancies and/or [facility] health. Return to clinic in 4 weeks. [...] T [facility] Dates ASIA BETANCOURT [id number] 2018-Anupama HIDALGO Medic [place] [address] MANAGED MEDICA[place] documented as of this encounter Advance Directives Type Date Recorded Patient Leather Repairer Explanati on Advance Directives and Living Will Power of Tree Feller Operator Name Relationship Healthcare Agent Relationship Co mmunication Floyd Brown Father Health Care Agent Preet Coffey Other Health Care Agent [place] Fuentes Spouse First [facility] Health Care Agent (Mobile)
--- OUTSIDE RECORDS SUMMARY | 2020-09-27 01:43 | XMS REPORT | Summary of Care ---
:1990 Author Organization [facility] Address [address] [place] [address] Care Team Providers Name Role Phone Gamal Saravia Insurance Hmo Lauren Fernandez Primary Care Provider Reason for Visit Reason Comments ROUTINE VISIT (Routine) Status Reason Specialty Diagnoses / Referred By Referred To Procedures Contact Contact New Request OB Satellites Diagnoses Hyperemesis gravidarum Marisel Galvan, Procedures Discharge Follow-Up: Residential Collections Lorena FRANKLIN [address] [facility] [id number] [place] [address] Encounter Details Date Type Department Care Team Description 09/08/2020 Routine [facility]- Cornelius Fernandez upervision of high risk in first trimester (Primary Dx); Visit ELIZ Holland Previous section complicating p regnancy; [address] [place] [address] [place]ANC[place] (vaginal after ) trial; [address] [place] [address]; [place], [place], [place] Nausea and vomi ting during ; [phone] Obesity in [phone] Allergies Active Allergy Reactions Severity Noted Date Comments Ibuprofen Hives 04/15/2014 [place] Hives 04/15/2014 Sodium Citrate (Bulk) Nausea and/or Vomiting 9 documented as of this encounter (statuses as of 09/08/2020) Medications Medication Sig Dispensed Refills Start Date End Date Status vit Take 1 Packet by 30 Each 6 08/03/2020 Active 89-wxlc-xqwes-dha mouth daily. 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 Patrol Judge Utility Encounter for IUD removal and reinsertion 01/18/2015 ASCUS on Pap smear 04/15/2014 Estimated Date of Delivery Comments Yes 04/11/2021 Based on Ultrasound, FHT: 127, Transverse Presentation, Placen ta Too early to evaulate documented as of this encounter (statuses as of 09/08/2020) Resolved Problems Problem Noted Date Resolved Date 37 weeks gestation of 12/18/2018 01/08/20 19 [place] Hick's contraction 12/12/2018 01/08/2019 Abnormal maternal glucose [...] management 01/25/2015 05/20/2018 Overview: ICD10 Diagnosis Term Patrol Judge Utility Breast tenderness in female 01/25/2015 05/20/2018 Not immune to rubella 04/16/2014 06/04/2016 Overview: ICD10 Diagnosis Term Patrol Judge Utility documented as of this encounter (statuses [...] in this encounter Progress Notes Cornelius Fernandez, LEARNING ANALYST - 09/08/2020 10:45 AM CDT Chief complaint: Chief Complaint Patient presents with ROUTINE VISIT HPI CC: Follow Up Visit Suraj Funetes is a 29 year old, , /White female. Patient's last menstrual period was 06/08/2020 (approximate). She is 9w2d with an intrauterine . Her estimated date of delivery is 04/11/2021, by Ultrasound. She went to [facility] ER for nausea and vomitin [...] Manny Gray; Location: Labor and Delivery - [place] Social History Socioeconomic History Marital status: Spouse [...] file Gets together: Not on file Attends jain service: Not on file Active member of [...] sexual or emotional abuse. Only outside cats. Uatsdin: None Patient lives with spouse and kids. [...] 10/06/2020 Routine Visit OB Satellites Lauren Fernandez, LEARNING ANALYST [address] [place], [place] [address] [phone] Health Maintenance Due Date Last Done Comments [...] Address T ype Group Dates ASIA BETANCOURT [id number] 2018-Anupama HIDALGO Medic [place] [id number] MA[place]GED MEDICA[place] documented as of this encounter Advance Directives Type Date Recorded Patient Orthotist Explanati on Advance Directives and Living Will Power of Mate Fishing Vessel Name Relationship Healthcare Agent Relationship Co mmunication Floyd Brown Father Health Care Agent Preet Milagrosteph Other Health Care Agent [place] Fuentes Spouse First [facility] Health Care Agent (Mobile)
--- OUTSIDE RECORDS SUMMARY | 2020-09-27 01:43 | XMS REPORT | Summary of Care ---
:1990 Author Organization [facility] Address [address] [place] [address] Care Team Providers Name Role Phone Gamal Saravia Insurance Hmo Lauren Fernandez Primary Care Provider Reason for Visit Reason Comments Abdominal Pain Vomiting Auth/Cert Status Reason Specialty Diagnoses / Referred By Referred To Procedures Contact Contact Emergency Medicine Adc Em ergency Dept [address] [address] Fax: Encounter Details Date Type Department Care Team Description 09/07/2020 Emergency ADC-Emergency Depart ment Mary Carmen Jacobs, PAC [address] [facility] [address] maloney [address] [place] [address] [place] [address] [phone] Allergies Active Allergy Reactions Severity Noted Date Comments Ibuprofen Hives 04/15/2014 [place] Hives 04/15/2014 Sodium Citrate (Bulk) Nausea and/or Vomiting 9 documented as of this encounter (statuses as of 09/07/2020) Medications Medication Sig Dispensed Refills Start Date End Date Status vit Take 1 Packet by 30 Each 6 08/03/2020 Active 18-ufll-hqbvp-dha mouth daily. 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 Esl Tutor Utility Encounter for IUD removal and reinsertion [...] management 01/25/2015 05/20/2018 Overview: ICD10 Diagnosis Term Esl Tutor Utility Breast tenderness in female 01/25/2015 05/20/2018 Not immune to rubella 04/16/2014 06/04/2016 Overview: ICD10 Diagnosis Term Esl Tutor Utility documented as of this encounter (statuses [...] active vomiting noted. Also discussed contacting her obstetrics gyn physician for termination. Pt signed AMA form and walked out of ER without incident. Brenda frost RN - 09/07/2020 2:45 PM CDTPt upset with staff regarding visitor policy states, "She just needs an obstetrician gynecologist. She needs toget this baby out of her." Informed patient of current visitor policy and ER process and procedures. Rkiki Jaramillo RN - 09/07/2020 2:34 PM CDTAs [...] 09/08/2020 Routine Visit OB Satellites Lauren Fernandez, MANAGER POKER [address] [place], [place] [address] [phone] Health Maintenance Due Date Last Done Comments [...] Address T ype Group Dates ASIA BETANCOURT [id number] 2018-Anupama Camacho O BOX Medic [place] [id number] [place] MED[place] documented as of this encounter Advance Directives Type Date Recorded Patient Administrative Assistant Data Entry Explanati on Advance Directives and Living Will Power of Book Canvasser Name Relationship Healthcare Agent Relationship Co mmunication Floyd Brown [facility] Health Care Agent Preet Coffey Other Health Care Agent [place] Fuentes Spouse First [facility] Health Care Agent (Mobile)
--- OUTSIDE RECORDS SUMMARY | 2020-09-27 01:44 | XMS REPORT | Summary of Care ---
:1990 Author Organization [facility] Address [address] [place] [address] Care Team Providers Name Role Phone Gamal Saravia Insurance Hmo Lauren Fernandez Primary Care Provider Reason for Visit Reason Comments Assessment Encounter Details Date Type Department Care Team Description 09/09/2020 Telephone [facility] RMP- A Cornelius Allen FNP Assessment [address] [facility] [address] [place] [address] [place] [address] [phone] Allergies Active Allergy Reactions Severity Noted Date Comments Ibuprofen Hives 04/15/2014 [place] Hives 04/15/2014 Sodium Citrate (Bulk) Nausea and/or Vomiting 9 documented as of this encounter (statuses as of 09/09/2020) Medications Medication Sig Dispensed Refills Start Date End Date Status vit Take 1 Packet by 30 Each 6 08/03/2020 Active 61-onjn-knhuw-dha mouth daily. 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 Tax Intern Utility Encounter for IUD removal and [...] management 01/25/2015 05/20/2018 Overview: ICD10 Diagnosis Term Tax Intern Utility Breast tenderness in female 01/25/2015 05/20/2018 Not immune to rubella 04/16/2014 06/04/2016 Overview: ICD10 Diagnosis Term Tax Intern Utility documented as of this encounter [...] 10/06/2020 Routine Visit OB Satellites Lauren Fernandez, OCEAN FORWARDER [address] [place] [address] [phone] Health Maintenance Due Date Last Done Comments [...] Subscriber ID Effective Phone Address T [facility] Group Dates ASIA BETANCOURT [id number] 2018-Anupama Camacho O BOX Medic [facility] [place] [facility] [place] [id number] MANAGED MEDICAID [place] documented as of this encounter Advance Directives Type Date Recorded Patient Asp Net Developer Explanati on Advance Directives and Living Will Power of American Sign Language Teacher Name Relationship Healthcare Agent Relationship Co mmunication Floyd Brown Father Health Care Agent Preet Coffey Other Health Care Agent [place] Gina Spouse First [facility] Care Agent (Mobile)
--- OUTSIDE RECORDS SUMMARY | 2020-09-27 01:44 | XMS REPORT | Summary of Care ---
:1990 Author Organization [facility] Address [address] [place] [address] Care Team Providers Name Role Phone Gamal Saravia Insurance Hmo Lauren Fernandez CEO [place] Primary Care Provider Reason for Visit Reason Comments Rx Concern/Question prior auth go to cover mymed s [id number] Encounter Details Date Type Department Care Team Description 09/07/[address] [facility]- Cornelius Fernandez, Rx Concern/Question [place] FNP (prior auth go to [facility] [address] [facility] cover mymeds [id number]) [place] [address] [place] [phone] [address] [phone] Allergies Active Allergy Reactions Severity Noted Date Comments Ibuprofen Hives 04/15/2014 [place] Hives 04/15/2014 Sodium Citrate (Bulk) Nausea and/or Vomiting 9 documented as of this encounter (statuses as of 09/08/2020) Medications Medication Sig Dispensed Refills Start Date End Date Status vit Take 1 Packet by 30 Each 6 08/03/2020 Active 16-qkvr-dblyf-dha mouth daily. (SELECT-OB + DHA) 29 mg [...] in 01/25/2015 Overview: ICD10 Diagnosis Term Manager Brand Utility Encounter for IUD removal and reinsertion 01/18/2015 ASCUS on Pap smear 04/15/2014 Estimated Date of Delivery Comments Yes 04/11/2021 Based on Ultrasound, FHT: 127, Transverse Presentation, Placen ta Too early to evaulate documented as of this encounter (statuses as of 09/08/2020) Resolved Problems Problem Noted Date Resolved Date 37 weeks gestation of 12/18/2018 01/08/20 19 [place] Hick's contraction 12/12/2018 01/08/2019 Abnormal maternal glucose [...] 01/25/2015 05/20/2018 Overview: ICD10 Diagnosis Term Manager Brand Utility Breast tenderness in female 01/25/2015 05/20/2018 Not immune to rubella 04/16/2014 06/04/2016 Overview: ICD10 Diagnosis Term Manager Brand Utility documented as of this encounter (statuses [...] for authorization of nausea medication. Please call [phone] (home) documented in this encounter Plan of Treatment Date Type Specialty Care Team Description 10/06/2020 Routine Visit OB Satellites Lauren Fernandez, CEO [place] [address] [place] [address] [phone] Health Maintenance Due Date Last Done Comments [...] Address T biancae Group Dates ASIA BETANCOURT [id number] 2018-Anupama Camacho [address]OX [place] [id number] MANA[place]ED MEDICA[place] documented as of this encounter Advance Directives Type Date Recorded Patient Legal Process Specialist Explanati on Advance Directives and Living Will Power of Land Leasing Examiner Name Relationship Healthcare Agent Relationship Co mmunication Floyd Brown Father Health Care Agent Preet Coffey Other Health Care Agent [place] Fuentes Spouse First [facility] Health Care Agent (Mobile)
--- OUTSIDE RECORDS SUMMARY | 2020-09-27 01:44 | XMS REPORT | Summary of Care ---
:1990 Author Organization [facility] Address [address] [place] [address] Care Team Providers Name Role Phone Gamal Saravia Insurance Hmo Lauren Fernandez Primary Care Provider Reason for Visit Reason Comments Abdominal Pain Encounter Details Date Type Department Care Team Description [facility], Abdominal Pain [facility] [address] [facility] [address] [place] [address]55 [facility] [phone] [place], [place] [address] [phone] Allergies Active Allergy Reactions Severity Noted Date Comments Ibuprofen Hives 04/15/2014 [place] Hives 04/15/2014 Sodium Citrate (Bulk) Nausea and/or Vomiting 9 documented as of this encounter (statuses as of 09/09/2020) Medications Medication Sig Dispensed Refills Start Date End Date Status vit Take 1 Packet by 30 Each 6 08/03/2020 Active 75-ohzs-rmust-dha mouth daily. 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 Coffee Maker Utility Encounter for IUD removal and [...] management 01/25/2015 05/20/2018 Overview: ICD10 Diagnosis Term Coffee Maker Utility Breast tenderness in female 01/25/2015 05/20/2018 Not immune to rubella 04/16/2014 06/04/2016 Overview: ICD10 Diagnosis Term Coffee Maker Utility documented as of this encounter [...] she states she was seen at the [place] ER earlier today but reports no imaging was done, she was only given IV fluids. Patient advised to go to L&D for further evaluation, the gentleman and patient agreed and reported that he would to take her to [place] L&D. Report called and given to Sharlene MEJÍA. BELLA Brower 09/09/2020 4:24 PM documented in this encounter Plan of Treatment Date Type Specialty Care Team Description 10/06/2020 Routine Visit OB Satellites Lauren Fernandez, FACILITIES PLANNER [address] [place], [place] [address] [phone] Health Maintenance Due Date Last Done Comments [...] Address T e Group Dates ASIA BETANCOURT [id number] 2018-Anupama [place] BOX Medic [place] [id number] [place] documented as of this encounter Advance Directives Type Date Recorded Patient Industrial Cleaning Technician Explanati on Advance Directives and Living Will Power of Electric Plater Name Relationship Healthcare Agent Relationship Co mmunication Floyd Brown [facility] Health Care Agent Preet Coffey Other Health Care Agent [place] Fuentes Spouse First [facility] Health Care [phone] Agent (Mobile)
--- OUTSIDE RECORDS SUMMARY | 2020-09-27 01:44 | XMS REPORT | Summary of Care ---
:1990 Author Organization [facility] Address [address] [place] [address] Care Team Providers Name Role Phone Gamal Saravia Insurance Hmo Lauren Fernandez SERVICE NOW DEVELOPER Primary Care Provider Reason for Visit Reason Comments Other PRIOR AUTH go to [facility] [id number] Encounter Details Date Type Department Care Team Description 09/08/2020 Telephone [facility]- Cornelius Fernandez, Ot her (PRIOR AUTH go [facility] to [facility] [address] [facility] [id number]) [place] [address] [place], [place] [phone] [address] [phone] Allergies Active Allergy Reactions Severity Noted Date Comments Ibuprofen Hives 04/15/2014 [place] Hives 04/15/2014 Sodium Citrate (Bulk) Nausea and/or Vomiting 9 documented as of this encounter (statuses as of 09/09/2020) Medications Medication Sig Dispensed Refills Start Date End Date Status vit Take 1 Packet by 30 Each 6 08/03/2020 Active 81-dtqt-cukrs-dha mouth daily. 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 Blender Snuff Utility Encounter for IUD removal and reinsertion 01/18/2015 ASCUS on Pap smear 04/15/2014 Estimated Date of Delivery Comments Yes 04/11/2021 Based on Ultrasound, FHT: 127, Transverse Presentation, Placen ta Too early to evaulate documented as of this encounter (statuses as of 09/09/2020) Resolved Problems Problem Noted Date Resolved Date 37 weeks gestation of 12/18/2018 01/08/20 19 [place] Hick's contraction 12/12/2018 01/08/2019 Abnormal maternal glucose [...] management 01/25/2015 05/20/2018 Overview: ICD10 Diagnosis Term Blender Snuff Utility Breast tenderness in female 01/25/2015 05/20/2018 Not immune to rubella 04/16/2014 06/04/2016 Overview: ICD10 Diagnosis Term Blender Snuff Utility documented as of this encounter (statuses [...] 09/08/2020 4:09 PM CDTGo to covermymeds Doxylamine [id number] signed by Leyla Sapp at 09/08/2020 4:13 PM CDT documented in this encounter Plan of Treatment Date Type Specialty Care Team Description 10/06/2020 Routine Visit OB Satellites Lauren Fernandez, SERVICE NOW DEVELOPER [address] [place], [place] [address] [phone] Health Maintenance Due Date Last Done Comments [...] Address T ype Group Dates ASIA BETANCOURT [id number] 2018-Anupama [place] Medic [place] [address] [place] MEDICA[place] documented as of this encounter Advance Directives Type Date Recorded Patient Polygraph Examiner Explanati on Advance Directives and Living Will Power of Micro Computer Specialist Name Relationship Healthcare Agent Relationship Co mmunication Floyd Brown [facility] Health Care Agent Preet Coffey Other Health Care Agent [place] Fuentes Spouse First [facility] Health Care Agent (Mobile)
--- OUTSIDE RECORDS SUMMARY | 2020-09-27 01:45 | XMS REPORT | Summary of Care ---
:1990 Author Organization [facility] Address [address] [place] [address] Care Team Providers Name Role Phone Gamal Saravia Insurance Hmo Lauren Fernandez FIRER WATERTENDER Primary Care Provider Reason for Referral (Routine) Status Reason Specialty Diagnoses / Procedures Referred By Lauren marquez To Contact Contact New Request Diagnoses Nausea and vomiting, intractability of vomiting not specified, unspecified vomiting type Hyperemesis gravidarum Prema Hernandez MD Procedures Discharge Follow-Up: Eeg Tech [facility] [address] [place] [address]. [place] [address] Radiology Services (STAT) Status Reason Specialty Diagnoses / Referred By Referred To Procedures Contact Contact New Request Diagnostic Diagnoses Nausea and vomiting, intractability of vomiting not specified, unspecified vomiting type Generalized abdominal pain Marcelo Carpio Radiology Procedures US ABDOMEN LIMITED MD Keerthi [address] [place] [address] [id number] [place] [address] Reason for Visit Reason Comments Abdominal Pain Auth/Cert Status Reason Specialty Diagnoses / Referred By Referred To Procedures Contact Contact Emergency Medicine [facility] rgency Dept [address] [place] [address] Fax: Encounter Details Date Type Department Care Team Description 09/09/2020 - Hospital Encounter Obstetrics and ShirinMarcelo MD [address] [id number] [place], [place] [address] Nausea & vomiting 09/10/2020 Gynecology (J10C) Karlie Brown MD [address] [id number] [place], [place] [phone] [place] [address] Allergies Active Allergy Reactions Severity Noted Date Comments Ibuprofen Hives 04/15/2014 [place] Hives 04/15/2014 Sodium Citrate (Bulk) Nausea and/or Vomiting 9 documented as of this encounter (statuses as of 09/10/2020) Medications Medication Sig Dispensed Refills Start Date End Date Status vit Take 1 Packet by 30 Each 6 08/03/2020 Active 39-vmvd-kqlez-dha mouth daily. 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 Encounter for IUD removal and reinsertion 01/18/2015 ASCUS on Pap smear 04/15/2014 Estimated Date of Delivery Comments Yes 04/11/2021 Based on Ultrasound, FHT: 127, Transverse Presentation, Placen ta Too early to evaulate documented as of this encounter (statuses as of 09/10/2020) Resolved Problems Problem Noted Date Resolved Date 37 weeks gestation of 12/18/2018 01/08/20 19 [place] Hick's contraction 12/12/2018 01/08/2019 Abnormal maternal glucose [...] management 01/25/2015 05/20/2018 Overview: ICD10 Diagnosis 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 provided Voucher #[id number] for [employer] . Roseann Bowens LMSW Campaign Manager Care Management C: [phone] O: [phone] [email or web address] Poonam Solomon MD - 09/10/2020 4:00 PM CDTR1 CASTLE CALL PROGRESS NOTE Suraj Fuentes [id number] 09/10/2020, 4:00 PM Notified by RN that patient is now tolerating a regular diet. Pt previously on oral antiemetics and adamantly desires to be d/c at this time. Will d/c with home medications. Precautions given, f/u withregular PNV. Discussed with Dr. Eller. Poonam Solomon MD DYNAMIC BALANCER SET UP WORKER PGY-1 09/10/20 documented in this encounter H&P [...] Manny Gray; Location: Labor and Delivery - [facility] Past Medical History: Diagnosis Date Abnormal maternal [...] 09/10/20 0632 Allergies and drug reactions: Ibuprofen, [place], and Sodium citrate (bulk) HOME MEDICATIONS Prescriptions [...] for 42 days. 120 tablet 1 vit 53-wpdn-vgmdu-dha (SELECT-OB + DHA) 29 mg iron-1 mg [...] Date/Time GLUF 68 (L) 12/12/2018 07:47 AM [id number] 124 08/03/2020 02:17 PM GLU3H 108 12/12/2018 [...] presentation at 37w - Documented LTCS at [facility] - Desires possible Hx PTD - G1 at 34w - G2 at 36w COVID-19 SCREEN: Lab Results Component Value Date/Time COVID19 Not Detected 09/10/2020 02:30 AM Antepartum course reviewed - early 1 h 124, sero negative, Rnot immune, VZVequiv, A positive/IAT negative, GBS unk, Pap ASCUS 11/27/17 - H/H, plt: 13.9 / 39.3, 180 [facility] Presentation on admission: variable - too early to eval placenta - FHT 154 bpm DISPO: Admit for IV antiemetics in the setting of hyperemesis. PO challenge in AM D/w Dr. Mason. Destinee Wiseman MD PGY-2 DYNAMIC BALANCER SET UP WORKER Personal Pager: [phone] 09/10/20 1:51 AM Associated attestation - Karlie Brown MD - 09/10/2020 11:01 AM CDTI personally examined the patient on 09/10/[address] Wiseman's resident note as written. I actively participated in the decision-making process. Please see the resident's note for additional details. documented in this encounter Consult Notes Destinee Wiseman MD - 09/10/2020 12:20 AM CDTAssociated Order(s): CONSULT DYNAMIC BALANCER SET UP WORKER TRIAGE/L&D HISTORY & PHYSICAL IDENTIFYING DATA Suraj [...] Manny Gray; Location: Labor and Delivery - [facility] Past Medical History: Diagnosis Date Abnormal maternal [...] 09/10/20 0632 Allergies and drug reactions: Ibuprofen, [place], and Sodium citrate (bulk) HOME MEDICATIONS Medications [...] for 42 days. 120 tablet 1 vit 41-vwtf-ihciu-dha (SELECT-OB + DHA) 29 mg iron-1 mg [...] Date/Time GLUF 68 (L) 12/12/2018 07:47 AM [id number] 124 08/03/2020 02:17 PM GLU3H 108 12/12/2018 [...] presentation at 37w - Documented LTCS at [facility] - Desires possible Hx PTD - G1 at 34w - G2 at 36w COVID-19 SCREEN: Lab Results Component Value Date/Time COVID19 Not Detected 09/10/2020 02:30 AM Antepartum course reviewed - early 1 h 124, sero negative, Rnot immune, VZVequiv, A positive/IAT negative, GBS unk, Pap ASCUS 11/27/17 - H/H, plt: 13.9 / 39.3, 180 on 09/09/20 - [place] Fetus - Presentation on admission: variable [...] Carpio MD - 09/09/2020 7:35 PM CDT [facility] Emergency Department Note Patient Name: Suraj Fuentes Date of : 1990 29 year old female Treatment Room: 119/119 Primary Care Physician: Cornelius Fernandez Patient Escorted by: Self [9] Mode of Arrival: Personal means [1] EMS Treatment Prior to ED Arrival: QUANTITY SURVEYOR treatment: IVF;Other (comment) QUANTITY SURVEYOR treatment comments: Per patient she was seen [...] or recent trauma History provided by: Patient office support specialist used: No Past Medical History/Immunizations: Past Medical History: Diagnosis Date Abnormal maternal glucose tolerance, antepartum 12/11/2018 Resolved per pt report Anxiety Resolved per pt report Anxiety and depression resolved Mental disorder Ovarian cyst recently found out of dx. Tetanus received in last 5 years: Unknown Childhood immunizations: Up-to-date Allergies: Allergies Allergen Reactions Ibuprofen Hives [place] Hives Sodium Citrate (Bulk) Nausea and/or Vomiting [...] Manny Gray; Location: Labor and Delivery - [facility] Review of Systems: Review of Systems Constitutional: [...] Doppler ultrasound of the right upper quadrant. Sports Broadcaster images were obtained for the record. COMPARISON: [...] Calculation () 222.3 mL/min/1.73m2 HEPATIC FUNCTION PANEL (62993) (ALB,T.PRO,BILI T,BU/BC,ALT,AST,ALK PHOS) Collection Time: 09/09/20 8:03 [...] GLUCOSE, BUN, CREATININE, CA) HEPATIC FUNCTION PANEL (84532) (ALB,T.PRO,BILI T,BU/BC,ALT,AST,ALK PHOS) LIPASE URINALYSIS CONSULT DYNAMIC BALANCER SET UP WORKER Orders Placed This Encounter Medications NaCl 0.9% [...] and antiemetics with minimal improvement in pain. Eeg Tech consulted. MDM: MDM Reviewed: nursing note and vitals Interpretation: labs and ultrasound Consults: DYNAMIC BALANCER SET UP WORKER Scoring Tools: No data recorded Diagnosis/Impression: ICD-10-CM [...] 2 tablets by mouth at bedtime. VIT 49-GUZO-JJQTB-DHA (SELECT-OB + DHA) 29 MG IRON-1 MG [...] [facility] at this time via [facility] transport in stretcher. Respirations even and unlabored, AAOx4, NAD noted. D Nurse Note - Merna Ramos RN - 09/10/2020 3:37 AM CDTIce chips provided PO per patient request. D Nurse Note - Ada Bush RN - 09/10/2020 3:20 AM CDTPatient report called to recieving ALFONZO Jerome on floor [address] Patient updated on plan of care and verbalizes understanding. Patients VSS, RR even and unlabored, and NAD noted. [facility] tele track requested, [facility]. D Nurse Note - Kristi Francis [...] to get a bed assigned in antepartum. blueprint processor states she is speaking with CN on [...] by 2 visitors. Patient connected to bedside bookmobile driver. D Nurse Note - Ada Bush RN - 09/09/2020 7:44 PM CDTPatient to room from triage documented in this encounter Plan of Treatment Date Type Specialty Care Team Description 10/06/2020 Routine Visit OB Satellites Lauren Fernandez, FIRER WATERTENDER [address] [place] [address] [phone] Name Type Priority Associated Diagnoses Date/Ti me [...] PANEL LAB Routine ONCE f or 1 (05890) Occurrences sta rting 09/10/2020 unti l 09/10/2020 [...] Nausea and vomiting, Results for this PANEL (84979) PM CDT intractability of procedure are in [...] SARS-CoV-2 Rapid ID Not Detected Not Detected [facility] Specimen Swab - NASOPHARYNGEAL SWAB Narrative Performed At ID NOW COVID-19 Assay is an isothermal nucleic acid [facility] amplification test intended for the qualitative detect ion of nucleic acid from SARS-CoV-2 viral RNA in nasopharynge al (CAKE STRIPPER) specimens. It is used under Emergency Use [...] testing if clinically indicated. Performing Organization Address [facility] Phone Number [facility] CLIA: [id number] [place] [address] [place] [address] URINALYSIS (09/09/2020 11:55 PM CDT) Pathologist Sig nature APPEARANCE Clear Clear [facility] COLOR Yellow Yellow [facility] PH 7.0 4.8 - 8.0 [facility] SP GRAVITY 1.015 1.003 - 1.030 [facility] GLU U QUAL 50 mg/dL (A) Normal [facility] BLOOD Negative Negative [facility] KETONES 80 mg/dL (A) Negative [facility] PROTEIN Negative Negative [facility] UROBILIN Normal Normal [facility] BILIRUBIN Negative Negative [facility] NITRITE Negative Negative [facility] LEUK HO Negative Negative [facility] RBC/HPF 1 0 - 3 HPF [facility] WBC/HPF 2 0 - 5 HPF [facility] BACTERIA Negative Negative [facility] MUCOUS Slight (A) Negative LPF [facility] SQ EPITH 5 (H) <=2 HPF [facility] Specimen Urine - URINE, CLEAN CATCH Performing Organization Address [facility] Phone Number [facility] CLIA: [id number] [place] [address] [place] [address] US ABDOMEN LIMITED (09/09/2020 9:45 PM CDT) [...] er ultrasound of the right upper quadrant. Sports Broadcaster images were obt ained for the record. [...] er ultrasound of the right upper quadrant. Sports Broadcaster images were obt ained for the record. [...] LIPASE 356 (H) 0 - 220 U/L [facility] Specimen Blood - VENOUS Performing Organization Address [facility]/Zipcode Phone Number [facility] CLIA: [id number] [place], [place] [address] [address] [place] [address] HEPATIC FUNCTION PANEL (33064) (ALB,T.PRO,BILI T,BU/BC,ALT,AST,ALK PHOS) (09/09/2020 8:03 PM CDT) Pathologist Sig nature TOTAL BILI 0.8 0.1 - 1.1 mg/dL [facility] BILI UNCON 0.9 0.1 - 1.1 mg/dL [facility] BILI CONJ 0.0 0.0 - 0.3 mg/dL [facility] T PROTEIN 6.8 6.3 - 8.2 g/dL [facility] ALBUMIN 4.1 3.5 - 5.0 g/dL [facility] ALK PHOS 49 34 - 122 U/L [facility] ALTv 52 (H) 5 - 35 U/L [facility] AST(SGOT) 43 (H) 13 - 40 U/L [facility] Specimen Blood - VENOUS Performing Organization Address [facility]/Zipcode Phone Number [facility] CLIA: [id number] [place], [place] [id number] [address] [place] [address] BASIC METABOLIC PANEL (NA, K, CL, CO2, GLUCOSE, BUN, CREATININE, CA) (09/09/2020 8:03 PM CDT) NA 135 135 - 145 [facility] mmol/L SERVICES K 4.2Comment: 3.5 - 5.0 [facility] Slight hemolysis mmol/L SERVICES CL 103 98 - 108 [facility] mmol/L SERVICES CO2 TOTAL 21 (L) 23 - 31 [facility] mmol/L SERVICES AGAP 11 2 - 16 [facility] BUN 2 (L)Comment: 7 - 23 mg/dL [facility] Slight hemolysis SERVICES GLUCOSE 90 70 - 110 [facility] mg/dL SERVICES CREATININE 0.41 (L) 0.50 - 1.04 [facility] mg/dL SERVICES CALCIUM 9.1 8.6 - 10.6 [facility] mg/dL SERVICES eGFR Calculation 183.4 mL/min/1.73m2 [facility] (Non- SERVICES Armenian) eGFR Calculation 222.3 mL/min/1.73m2 [facility] () SERVICES Specimen Blood - VENOUS Narrative Performed At Association of Glomerular Filtration Rate (GFR) and St aging [facility] of Kidney Disease* + + +------- ------ + | GFR (mL/min/1.73 m2) | With Kidney Damage | [facility] Kidney Damage + + +------- ------ [...] . Performing Organization Address City/State/Zipcode Phone Number [facility] CLIA: [id number] [place] [address] [place] [address] CBC WITH DIFF (09/09/2020 8:03 PM CDT) Pathologist Sig nature WBC 8.85 4.30 - 11.10 [facility] 10*3/L SERVICES RBC 4.48 3.93 - 5.25 [facility] 10*6/L SERVICES HGB 13.9 11.6 - 15.0 [facility] g/dL SERVICES HCT 39.3 35.7 - [...] VENOUS Performing Organization Address City/State/Zipcode Phone Number [facility] CLIA: [id number] [place] [address] [place] [address] documented in this encounter Visit Diagnoses Diagnosis [...] Address T e Group Dates ASIA BETANCOURT [id number] 2018-Anupama HID[place] Medic [place] [id number] MANAGED MED[place]ID [place] documented as of this encounter Advance Directives Type Date Recorded Patient Sports Broadcaster Explanati on Advance Directives and Living Will Power of Pressure Sealer And Tester Name Relationship Healthcare Agent Relationship Co mmunication Floyd Holloway Health Care Agent (Work) Preet Coffey Other Health Care Agent (Work) [place] Nicolegamal Spouse First [facility] Agent (Mobile) "
--- OUTSIDE RECORDS SUMMARY | 2020-09-27 01:45 | XMS REPORT | Summary of Care ---
:1990 Author Organization [facility] - Health Address [address] [place] [address] Care Team Providers Name Role Phone Gamal Saravia Insurance Hmo Lauren Fernandez Primary Care Provider Encounter Details Date Type Department Care Team Description 09/20/2020 Orders Only [facility] Doctor Unassigned, No [address] [facility] [place] [address] [address] [place] [address] Allergies Active Allergy Reactions Severity Noted Date Comments Ibuprofen Hives 04/15/2014 [place] Hives 04/15/2014 Sodium Citrate (Bulk) Nausea and/or Vomiting 9 documented as of this encounter (statuses as of 09/20/2020) Medications Medication Sig Dispensed Refills Start Date End Date Status vit Take 1 Packet by 30 Each 6 08/03/2020 Active 79-mdvm-kghzl-dha mouth daily. 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 Encounter for IUD removal and reinsertion 01/18/2015 ASCUS on Pap smear 04/15/2014 Estimated Date of Delivery Comments Yes 04/11/2021 Based on Ultrasound, FHT: 127, Transverse Presentation, Placen ta Too early to evaulate documented as of this encounter (statuses as of 09/20/2020) Resolved Problems Problem Noted Date Resolved Date 37 weeks gestation of 12/18/2018 01/08/20 19 [place] Hick's contraction 12/12/2018 01/08/2019 Abnormal maternal glucose [...] management 01/25/2015 05/20/2018 Overview: ICD10 Diagnosis 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 Utility Breast tenderness in female 01/25/2015 05/20/2018 Not immune to rubella 04/16/2014 06/04/2016 Overview: ICD10 Diagnosis 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 Designer Utility documented as of this encounter (statuses [...] 10/06/2020 Routine Visit OB Satellites Lauren Fernandez, DIESEL ENGINE PIPE FITTER [address] [id number] 15 [phone] Health Maintenance Due Date Last Done Comments [...] Address T ype Group Dates ASIA BETANCOURT [id number] 2018-Anupama [address] Medic [place] [id number] [place]ED [place]ICA[place] documented as of this encounter Advance Directives Type Date Recorded Patient Communications Instructor Explanati on Advance Directives and Living Will Power of Creative Designer Name Relationship Healthcare Agent Relationship Co mmunication Floyd Holloway Health Care Agent (Work) Preet Coffey Other Health Care Agent [place] Fuentes Spouse [facility] Agent (Mobile)[phone] (Work)
[2020-09-27] MEDS ORDERED: PROMETHAZINE INJ 25 MG/ML AMP ONE (02:08)
[2020-09-27] MEDS ORDERED: ONDANSETRON 4 MG/2 ML VIAL ONE (02:09)
--- NOTE | 2020-09-27 02:20 | ER ---
Nurse's Notes [facility] Name: Suraj Fuentes Age: 29 yrs Sex: Female : 1990 Arrival Date: 09/27/2020 Time: 01:35 Bed 7 Private MD: Diagnosis: Dental caries;Otalgia, left ear;Nausea Presentation: 09/27 01:41 Chief complaint: Patient states: C/O tooth ache that started yesterday. Now with jaw wh pain and ear pain. Coronavirus screen: Client denies travel out of the [place] in the last 14 days. At this time, the client does not indicate any symptoms associated with coronavirus-19. Ebola Screen: Patient negative for fever greater than or equal to 101.5 degrees Fahrenheit, and additional compatible Ebola Virus Disease symptoms Patient denies exposure to infectious person. Initial Sepsis Screen: Does the patient meet any 2 criteria? No. Patient's initial sepsis screen is negative. Does the patient have a suspected source of infection? Yes: Other: tooth ache. Risk Assessment: Do you want to hurt yourself or someone else? Patient reports no desire to harm self or others. Onset of symptoms was September 27, 2020. 01:41 Method Of Arrival: Ambulatory 01:41 Acuity: SHAW 4 PATIENTS TRANSPORTER: 01:44 Verified Historical: - Allergies: 01:43 Ibuprofen; 01:43 ORANGES; - PMHx: 01:43 hyperemesis gravidarum; Pancreatitis; - PSHx: 01:43 ; 01:44 Appendectomy; - Immunization history:: Adult Immunizations up to date. - Social history:: Smoking status: Patient/guardian denies using. Screenin:44 Abuse screen: Denies threats or abuse. Denies injuries from another. Nutritional screening: No deficits noted. Tuberculosis screening: No symptoms or risk factors identified. Fall Risk None identified. Assessment: 01:47 General: Appears in no apparent distress. Behavior is calm, cooperative, appropriate for age. Pain: Complains of pain in right jaw. Neuro: Level of Consciousness is awake, alert, obeys commands, Oriented to person, place, time, situation, Appropriate for age. Cardiovascular: Capillary refill < 3 seconds. Respiratory: Airway is patent Respiratory effort is even, unlabored, Respiratory pattern is regular, symmetrical. GI: Abdomen is flat, non-distended. : No signs and/or symptoms were reported regarding the genitourinary system. EENT: Reports tooth ache. Derm: Skin is intact, is healthy with good turgor, Skin is pink, warm \T\ dry. normal. Musculoskeletal: Circulation, motion, and sensation intact. 02:15 Reassessment: PT stated she just wanted to be discharged. Notified MD regarding Pt request. Vital Signs: 01:45 BP 115 / 67; Pulse 89; Resp 18; Temp 98.2; Pulse Ox 100% ; Weight 81.65 kg; Height 5 wh ft. 4 in. (162.56 cm); 01:45 Body Mass Index 30.90 (81.65 kg, 162.56 cm) ED Course: 01:35 Patient arrived in ED. cl3 01:36 Kole Garcia is Primary Nurse. 01:38 Ye Corcoran MD is Attending Physician. tw4 01:42 Triage completed. 01:46 Patient has correct armband on for positive identification. Bed in low position. Call light in reach. Side rails up X 1. Pulse ox on. NIBP on. 01:46 Arm band placed on right wrist. 02:28 No provider procedures requiring assistance completed. Patient did not have IV access during this emergency room visit. Administered Medications: 02:00 Drug: Phenergan 25 mg Route: IM; Site: right gluteus; rv 02:29 Follow up: Response: No adverse reaction 02:00 Drug: Zofran 4 mg Route: IM; Site: right gluteus; rv 02:29 Follow up: Response: No adverse reaction Outcome: 02:20 Discharge ordered by . tw4 02:28 Discharged to home ambulatory, with family. 02:28 Condition: stable 02:28 Discharge instructions given to patient, family, Instructed on discharge instructions, follow up and referral plans. medication usage, POC Demonstrated understanding of instructions, follow-up care, medications, POC Prescriptions given X 2. 02:30 Patient left the ED. Signatures: Kole Garcia Ye Corcoran MD MD tw4 Ye Mao RN RN Sanya Munson cl3
--- NOTE | 2020-09-27 02:20 | EDPHYS ---
Physician Documentation [facility] Name: Suraj Fuentes Age: 29 yrs Sex: Female : 1990 Arrival Date: 09/27/2020 Time: 01:35 Bed 7 Private MD: ED Physician Ye Corcoran HPI: 09/27 03:37 This 29 yrs old Female presents to ER via Ambulatory with complaints of Ear tw4 Pain, Swollen Jaw. 03:37 The patient presents with pain. The complaints affect the right ear. Onset: The tw4 symptoms/episode began/occurred today. Modifying factors: The symptoms are alleviated by nothing, the symptoms are aggravated by nothing. Severity of symptoms: At their worst the symptoms were moderate in the emergency department the symptoms are unchanged. 03:42 The patient has experienced similar episodes in the past, several times, multiple tw4 times. The patient has been recently seen at the [facility] Emergency Department, this week. 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 - Social history:: Smoking status: Patient/guardian denies using. ROS: 03:37 Constitutional: Negative for fever, chills, and weight loss, Eyes: Negative for injury, tw4 pain, redness, and discharge. 03:37 Cardiovascular: Negative for chest pain, palpitations, and edema, Respiratory: Negative for shortness of breath, cough, wheezing, and pleuritic chest pain, Abdomen/GI: Negative for abdominal pain, nausea, vomiting, diarrhea, and constipation, Back: Negative for injury and pain, MS/Extremity: Negative for injury and deformity, Skin: Negative for injury, rash, and discoloration, Neuro: Negative for headache, weakness, numbness, tingling, and seizure. 03:37 ENT: Positive for ear pain. Exam: 03:37 Constitutional: This is a well developed, well nourished patient who is awake, alert, tw4 and in no acute distress. Head/Face: Normocephalic, atraumatic. Chest/axilla: Normal chest wall appearance and motion. Nontender with no deformity. No lesions are appreciated. Cardiovascular: Regular rate and rhythm with a normal S1 and S2. No gallops, murmurs, or rubs. Normal PMI, no JVD. No pulse deficits. Respiratory: Lungs have equal breath sounds bilaterally, clear to auscultation and percussion. No rales, rhonchi or wheezes noted. No increased work of breathing, no retractions or nasal flaring. Abdomen/GI: Soft, non-tender, with normal bowel sounds. No distension or tympany. No guarding or rebound. No evidence of tenderness throughout. Back: No spinal tenderness. No costovertebral tenderness. Full range of motion. MS/ Extremity: Pulses equal, no cyanosis. Neurovascular intact. Full, normal range of motion. Neuro: Awake and alert, GCS 15, oriented to person, place, time, and situation. Cranial nerves II-XII grossly intact. Motor strength 5/5 in all extremities. Sensory grossly intact. Cerebellar exam normal. Normal gait. Vital Signs: 01:45 BP 115 / 67; Pulse 89; Resp 18; Temp 98.2; Pulse Ox 100% ; Weight 81.65 kg; Height 5 wh ft. 4 in. (162.56 cm); 01:45 Body Mass Index 30.90 (81.65 kg, 162.56 cm) MDM: 01:38 Patient medically screened. tw4 03:37 Differential diagnosis: otitis media, otitis externa. Data reviewed: vital signs, tw4 nurses notes. Counseling: I had a detailed discussion with the patient and/or guardian regarding: the historical points, exam findings, and any diagnostic results supporting the discharge/admit diagnosis. Special discussion: I discussed with the patient/guardian in detail that at this point there is no indication for admission to the hospital. It is understood, however, that if the symptoms persist or worsen the patient needs to return immediately for re-evaluation. Administered Medications: 02:00 Drug: Phenergan 25 mg Route: IM; Site: right gluteus; rv 02:29 Follow up: Response: No adverse reaction 02:00 Drug: Zofran 4 mg Route: IM; Site: right gluteus; rv 02:29 Follow up: Response: No adverse reaction Disposition: 09/27/20 02:20 Discharged to Home. Impression: Dental caries, Otalgia, left ear, Nausea. - Condition is Stable. - Discharge Instructions: Dental Pain, Nausea, Adult. - Prescriptions for Zofran 4 mg Oral Tablet - take 1 tablet by ORAL route every 12 hours As needed; 6 tablet. promethazine 25 mg Oral Tablet - take 1 tablet by ORAL route every 6 hours As needed; 20 tablet. - Medication Reconciliation Form, Thank You Letter, Antibiotic Education, Prescription Opioid Use form. - Follow up: Private Physician; When: Upon discharge from the Emergency Department; Reason: Recheck today's complaints, Continuance of care, Re-evaluation by your physician. - Problem is new. - Symptoms have improved. Signatures: Kole Garcia Terrence, MD MD tw4 Ye Mao RN RN rv Corrections: (The following items were deleted from the chart) 02:30 02:20 09/27/2020 02:20 Discharged to Home. Impression: Dental caries; Otalgia, left wh ear; Nausea. Condition is Stable. Forms are Medication Reconciliation Form, Thank You Letter, Antibiotic Education, Prescription Opioid Use. Follow up: Private Physician; When: Upon discharge from the Emergency Department; Reason: Recheck today's complaints, Continuance of care, Re-evaluation by your physician. Problem is new. Symptoms have improved. tw4 03:42 03:37 The patient has not experienced similar symptoms in the past, tw4 tw4
[2020-09-27 02:36] VITALS: BP 115/67; TEMP 98.2; O2SAT 100
== END 2020-09-27 02:30 | disposition home or self-care (01) ==
LOC: ER 01:34
DX: O26.899 Other specified pregnancy related conditions, unspecified trimester (principal); Z88.6 Allergy status to analgesic agent; Z91.018 Allergy to other foods; Z3A.00 Weeks of gestation of pregnancy not specified
CPT/HCPCS: 96372; 99283; J2550; J2405

== ENCOUNTER 2020-09-27 13:54 | Emergency (ER) | payer MEDICAID ==
--- OUTSIDE RECORDS SUMMARY | 2020-09-27 14:22 | XMS REPORT | Continuity of Care Document ---
:1990 Author Organization [facility] t Address [address] [place] [address] Care Team Providers Name Role Phone Doctor Unassigned, Name Attending Clinician Unavailable Shirin FRANKLIN, Keerthi Attending Clinician Kevin FRANKLIN Attending Clinician Akinsisushma WHCNP, C Attending Clinician Jim GRAIN COMBINE DRIVER, R Attending Clinician Kevin FRANKLIN Admitting [...] ID 2020-09-20 2020-09-20 Orders Doctor EDUARDO [id number] 00:00:00 00:00:00 Only UnassignedSRAVAN [id number] [place] [facility] [id number] 2020-09-09 2020-09-10 [facility] Marcelo Carpio [id number] 19:39:00 16:45:00 Encounter Karlie Brown [id number] [facility] [id number] 2020-09-09 2020-09-09 Telephone Vitaliy [facility] [id number] 00:00:00 00:00:00 Graciela C BOTTLER [id number] REGIONAL [id number] MATERNAL [id number] & CHILD [address] [facility] 2020-09-09 2020-09-09 [place] [facility] [id number] 00:00:00 00:00:00 Roshunda R BOTTLER [id number] [facility] [id number] MATERNAL [id number] & CHILD [address] [facility] 2020-09-08 2020-09-08 Routine [facility] [id number] 10:23:36 11:14:26 Roshunda R BOTTLER [id number] Visit REGIONAL [id number] MATERNAL [id number] & CHILD [address] [facility] 2020-09-08 2020-09-08 [place] [facility] [id number] 00:00:00 00:00:00 Roshunda R BOTTLER [id number] [facility] [id number] MATERNAL [id number] & CHILD [address] [facility] 2020-09-07 2020-09-07 [place] [facility] [id number] 00:00:00 00:00:00 Roshunda R BOTTLER [id number] REGIONAL [id number] MATERNAL [id number] & CHILD [address] [facility] Results This patient has no known results.
--- OUTSIDE RECORDS SUMMARY | 2020-09-27 14:24 | XMS REPORT | Summary of Care ---
:1990 Author Organization [facility] Address [address] [place] [address] Care Team Providers Name Role Phone Manjit E Insurance Hmo Lauren Fernandez [facility] Primary Care Provider Reason for Visit Reason Comments Assessment wanting to terminate pregnan cy Encounter Details Date Type Department Care Team Description 08/26/2020 Telephone [facility]- Cornleius Fernandez, As sessment ([place]anting to [facility] [place] ) [address] [facility] [address] [place] [address] [place], [place] [phone] Allergies Active Allergy Reactions Severity Noted Date Comments Ibuprofen Hives 04/15/2014 [place] Hives 04/15/2014 Sodium Citrate (Bulk) Nausea and/or Vomiting 9 documented as of this encounter (statuses as of 08/26/2020) Medications Medication Sig Dispensed Refills Start Date End Date Status ondansetron HCl Take by mouth. 0 Active (ZOFRAN ORAL) vit Take 1 Packet by 30 Each 6 08/03/2020 Active 77-xxqm-vbzlc-dha mouth daily. 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 Patient calling stating that she doesn't think she can handle this and asking about terminating. Please return call. Thank you. 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
--- OUTSIDE RECORDS SUMMARY | 2020-09-27 14:25 | XMS REPORT | Summary of Care ---
:1990 Author Organization [facility] - Health Address [address] [place] [address] Care Team Providers Name Role Phone Gamal Saravia Insurance Hmo Lauren Fernandez Primary Care Provider Reason for Referral (Routine) Status Reason Specialty Diagnoses / Referred By Referred To Procedures Contact Contact New Request OG-OBSTETRICS & Diagnoses Nausea and vomiting during Aufderheide, Leann GYNECOLOGY Procedures Discharge Follow-Up: Specialty Service OG-OBSTETRICS & GYNECOLOGY; 3-5 Days MD Merna [address] [place] [address]. [place] [address] Reason for Visit Reason Comments Abdominal Pain Vomiting Auth/Cert Status Reason Specialty Diagnoses / Referred By Referred To Procedures Contact Contact Emergency Medicine [facility] rgency Dept [address] [place] [phone] Fax: Encounter Details Date Type Department Care Team Description 08/28/2020 - Emergency [facility] Monika Allen MD [address] [place] [phone] Abdominal pain during in first trimester (Primary Dx); 08/29/2020 Department Anthonyerjessi, Leann Bauman MD [address] [place] [phone] Nausea and vomiting during [address] [place] [phone] Allergies Active Allergy Reactions Severity Noted Date Comments Ibuprofen Hives 04/15/2014 [place] Hives 04/15/2014 Sodium Citrate (Bulk) Nausea and/or Vomiting 9 documented as of this encounter (statuses as of 08/29/2020) Medications Medication Sig Dispensed Refills Start Date End Date Status ondansetron HCl Take by mouth. 0 Active (ZOFRAN ORAL) vit Take 1 Packet by 30 Each 6 08/03/2020 Active 85-koxr-fujkh-dha mouth daily. 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 SCHEDULE AN APPOINTMENT ONLINE AT [email or web address] 2. OR CALL THE [facility] ACCESS CENTER AT OR 3. OR CALL YOUR [facility] PHYSICIAN'S OFFICE DIRECTLY IF YOU ARE ALREADY AN ESTABLISHED [facility] PATIENT. RETURN TO ER FOR WORSENING OF SYMPTOMS. AttachmentsThe following attachments cannot be sent through Care Everywhere. : Your First Trimester Changes (Bulgarian)Severe Morning Sickness (Hyperemesis Gravidarum) (Bulgarian)documented in this encounter ED Notes Arsalan Salazar [...] site, catheter intact. [facility] accompanied by visitors x2, in possession [...] - 08/28/2020 11:47 PM CDT[facility] Nurse Note - Ada Bush RN - 08/28/2020 11:46 PM CDTReceived report from Thang MEJÍA D Nurse Note - Luly Tyler RN - 08/28/2020 11:35 PM CDTPatient ambulatory to restroom with specimen cup D Nurse Note - Luly yTler RN - 08/28/2020 10:33 PM CDTPatient given [...] cough, SOB. . Patient was seen in [place] for same complaint, patient's s/o states "they [...] Routine Visit OB Satellites Lauren Fernandez, MANAGER DOCUMENT CONTROL [address] [address] 15 [phone] Health Maintenance Due Date Last Done Comments [...] Abdominal pain Re sults for this PANEL (28204) CDT [facility] (ALB,T.PRO,BILI first trimester the resul ts T,BU/BC,ALT,AST,ALK section. PHOS) documented in this encounter Results Urinalysis (08/29/2020 12:26 AM CDT) Pathologist Sig nature APPEARANCE Clear Clear [facility] COLOR Trudi (A) Yellow [facility] PH 7.0 4.8 - 8.0 [facility] SP GRAVITY 1.030 1.003 - 1.030 [facility] GLU U QUAL Normal Normal [facility] BLOOD Negative Negative [facility] KETONES 80 mg/dL (A) Negative [facility] PROTEIN 30 mg/dL (A) Negative [facility] UROBILIN 2.0 mg/dL (A) Normal [facility] BILIRUBIN Negative Negative [facility] NITRITE Negative Negative [facility] LEUK HO Negative Negative [facility] RBC/HPF 3 0 - 3 HPF [facility] WBC/HPF 3 0 - 5 HPF [facility] BACTERIA Negative Negative [facility] MUCOUS Marked (A) Negative LPF [facility] SQ EPITH 4 (H) <=2 HPF [facility] Specimen Urine - URINE, CLEAN CATCH Performing Organization Address City/State/Zipcode Phone Number [facility] CLIA: [id number] [place], [place] [address] [address] [place], [place] [address]vd TOTAL BHCG (QUANTITATIVE) (08/28/2020 10:08 PM CDT) Pathologist Sig nature BETA HCG 140,720.00 Non- female [facility] and male patients: SERVICES <5 mIU/mL Specimen Blood - VENOUS Narrative Performed At [facility] Gestational Age Rang e (mIU/mL) 1-10 Weeks 4 [phone] 11-15 Weeks 11 [phone] 16-22 Weeks 74 [phone] 23-40 Weeks 15 [phone] Biotin has been reported to cause a negative bias, int erpret results relative to patient's use of biotin. Performing Organization Address City/[facility] Cent[facility]ode Phone Number [facility] CLIA: [id number] [place] [address] [place] [address] Hepatic Function Panel (ALB, T.PRO, BILI T, BU/BC, ALT, AST, ALK PHOS) (08/28/2020 10:08 PM CDT) Pathologist Sig nature TOTAL BILI 0.7 0.1 - 1.1 mg/dL [facility] BILI UNCON 0.9 0.1 - 1.1 mg/dL [facility] BILI CONJ 0.0 0.0 - 0.3 mg/dL [facility] T PROTEIN 6.8 6.3 - 8.2 g/dL [facility] ALBUMIN 4.1 3.5 - 5.0 g/dL [facility] ALK PHOS 56 34 - 122 U/L [facility] ALTv 21 5 - 35 U/L [facility] AST(SGOT) 20 13 - 40 U/L [facility] Specimen Blood - VENOUS Performing Organization Address City/[facility]/Zipcode Phone Number [facility] CLIA: [id number] [place] [address] [place] [address] Basic Metabolic Panel (NA, K, CL, CO2, GLUCOSE, BUN, CREATININE, CA) (08/28/2020 10:08 PM CDT) NA 139 135 - 145 [facility] mmol/L SERVICES K 3.4 (L) 3.5 - 5.0 [facility] mmol/L SERVICES CL 108 98 - 108 mmol/L [facility] CO2 TOTAL 21 (L) 23 - 31 mmol/L [facility] AGAP 10 2 - 16 [facility] BUN 7 7 - 23 mg/dL [facility] GLUCOSE 99 70 - 110 mg/dL [facility] CREATININE 0.49 (L) 0.50 - 1.04 [facility] mg/dL SERVICES CALCIUM 9.0 8.6 - 10.6 [facility] mg/dL SERVICES eGFR Calculation 149.3 mL/min/1.73m2 [facility] (Non- SERVICES [facility]) eGFR Calculation 181.0 mL/min/1.73m2 [facility] () SERVICES Specimen Blood - VENOUS Narrative Performed At Association of Glomerular Filtration Rate (GFR) and St aging [facility] SERVICES of Kidney Disease* + + [...] . Performing Organization Address City/State/Zipcode Phone Number [facility] CLIA: [id number] [place] [address] [place] [address] CBC with Differential (08/28/2020 10:08 PM CDT) Pathologist Sig nature WBC 8.57 4.30 - 11.10 [facility] 10*3/L SERVICES RBC 4.62 3.93 - 5.25 [facility] 10*6/L SERVICES HGB 14.5 11.6 - 15.0 [facility] g/dL SERVICES HCT 40.7 35.7 - 45.2 % [facility] MCV 88.1 80.6 - 95.5 fL [facility] MCH 31.4 25.9 - 32.8 pg [facility] MCHC 35.6 (H) 31.6 - 35.1 [facility] g/dL SERVICES RDW-SD 38.5 (L) 39.0 - 49.9 fL [facility] RDW-CV 12.0 12.0 - 15.5 % [facility] PLT 187 166 - 358 [facility] 10*3/L SERVICES MPV 9.8 9.5 - 12.9 fL [facility] NRBC/100 WBC 0.0 0.0 - [...] VENOUS Performing Organization Address City/State/Zipcode Phone Number [facility] CLIA: [id number] [place] [address] [place] [address] documented in this encounter Visit Diagnoses Diagnosis [...] / Subscriber ID Effective Phone Address [facility] Dates ASIA BETANCOURT [id number] 2018-Anupama [address] Medic [place] [id number] MANAGED MEDICAID [place] documented as of this encounter Advance Directives Type Date Recorded 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
--- OUTSIDE RECORDS SUMMARY | 2020-09-27 14:25 | XMS REPORT | Summary of Care ---
:1990 Author Organization [facility] Address [address] [place] [address] Care Team Providers Name Role Phone Gamal Saravia Insurance Hmo Lauren Fernandez ASSEMBLER DC FIELD RING Primary Care Provider Reason for Visit Reason Comments Assessment vomit Encounter Details Date Type Department Care Team Description 09/06/[address] [facility]- Cornelius Fernandez, As sessment (vomit) [facility] [address] [place] [address] [place] [address] [place] [address] [phone] Allergies Active Allergy Reactions Severity Noted Date Comments Ibuprofen Hives 04/15/2014 [place] Hives 04/15/2014 Sodium Citrate (Bulk) Nausea and/or Vomiting 9 documented as of this encounter (statuses as of 09/06/2020) Medications Medication Sig Dispensed Refills Start Date End Date Status vit Take 1 Packet by 30 Each 6 08/03/2020 Active 64-bxwu-tomdh-dha mouth daily. 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 Encounter for IUD removal and reinsertion [...] management 01/25/2015 05/20/2018 Overview: ICD10 Diagnosis Term Forestry Contractor Utility Breast tenderness in female 01/25/2015 05/20/2018 Not immune to rubella 04/16/2014 06/04/2016 Overview: ICD10 Diagnosis Term Forestry Contractor Utility documented as of this encounter (statuses [...] old female Patient stated she went to [facility] 08[facility]28[facility] for N/V and has [...] has been loosing weight , please call [phone] (home) documented in this encounter Plan of Treatment Date Type Specialty Care Team Description 09/08/2020 Routine Visit OB Satellites Lauren Fernandez FNP [address] [address] 15 [phone] Health Maintenance Due Date Last Done Comments [...] Address T e Group Dates ASIA BETANCOURT [id number] 2018-Anupama [address]OX Medic [place] [phone] MANA[place]ED MEDICA[place] documented as of this encounter Advance Directives Type Date Recorded 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 Health Care Agent (Mobile)
--- OUTSIDE RECORDS SUMMARY | 2020-09-27 14:25 | XMS REPORT | Summary of Care ---
:1990 Author Organization [facility] - [facility] Address [address] [place] [address] Care Team Providers Name Role Phone Gamal Saravia Insurance Hmo Lauren Fernandez Primary Care Provider Reason for Referral (Routine) Status Reason Specialty Diagnoses / Referred By Referred To Procedures Contact Contact New Request Diagnoses Hyperemesis gravidarum Marisel Galvan, Procedures Discharge Follow-Up: Sales Review Clerk Lorena FRANKLIN [address] [place], [place] [id number] Reason for Visit Auth/Cert Status Reason Specialty Diagnoses / Procedures Referred By Lauren marquez To Contact Contact Obstetrics Diagnoses 7wks IUP hyperemesis J10c [address] [place] [phone] Phone: Fax: Encounter Details Date Type Department Care Team Description 08/30/2020 - Hospital Encounter Obstetrics and Jad Isaacs ea and vomiting 09/01/2020 Gynecology (J10C) MD Tyler during [address] [place] [id number] [phone] Allergies Active Allergy Reactions Severity Noted Date Comments Ibuprofen Hives 04/15/2014 [place] Hives 04/15/2014 Sodium Citrate (Bulk) Nausea and/or Vomiting 9 documented as of this encounter (statuses as of 09/01/2020) Medications Medication Sig Dispensed Refills Start End Date Status Date vit Take 1 Packet by 30 Each 6 Active 60-hgrk-hqhhd-dha mouth daily. 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 Invoice Control Clerk Utility Encounter for IUD removal and reinsertion 01/18/2015 ASCUS on Pap smear 04/15/2014 Estimated Date of Delivery Comments Yes 04/11/2021 Based on Ultrasound, FHT: 127, Transverse Presentation, Placen ta Too early to evaulate documented as of this encounter (statuses as of 09/01/2020) Resolved Problems Problem Noted Date Resolved Date 37 weeks gestation of 12/18/2018 01/08/20 19 [place] Hick's contraction 12/12/2018 01/08/2019 Abnormal maternal glucose [...] management 01/25/2015 05/20/2018 Overview: ICD10 Diagnosis Term Invoice Control Clerk Utility Breast tenderness in female 01/25/2015 05/20/2018 Not immune to rubella 04/16/2014 06/04/2016 Overview: ICD10 Diagnosis Term Invoice Control Clerk Utility documented as of this encounter [...] cannot be sent through Care Everywhere. Diet, [place] (Adult) (Cymro)documented in this encounter Progress Notes Major Velasquez [...] mL IV piggyback 25 mg IV Piggyback [id number] mg at 09/01/20 0552 pyridoxine (VITAMIN B-6) [...] 08/28/2020 21 No results found for: URICACID, [id number] No results found for: LDH Assessment/Plan: Suraj [...] tolerate PO for over 2 days - [facility] Course: s/p 2L NS bolus, IV 4mg zofran, 12.5 benadryl, 20mg Pepcid, 12.5 phenergan, refused second phenergan dose so given Reglan 10mg, 20mEq KCLrepletion - OSH labs remarkable for K 3.2, Cr 0.72, LFT WNL, lipase 59, Udip with 2+ ketone -Patient reports severe nausea, dry heaving noted in triage - Upon transfer to [facility], P 80s, BP 120/60s - Repeat UA [...] presentation at 37w - Documented LTCS at [facility] - Desires possible Hx PTD - G1 at 34w - G2 at 36w COVID-19 SCREEN: Lab Results Component Value Date/Time COVID19 Not Detected 08/30/2020 11:37 PM Antepartum course reviewed - seronegative, Rnot immune, VZVnot immune,A positive/IATnegative, GBSunk, PapASCUS 11/2017, neg HRHPV, needs repeat cotesting in 3 years - H/H, plt:14.5/ 40.7,187on [facility]28[facility] [id number] bpm via M mode on admission BSUS Major Velasquez MD 09/01/2020 Associated attestation - Marisel Galvan MD - 09/01/2020 10:40 AM CDT I was rounding [facility] faculty for this patient and [...] presentation at 37w - Documented LTCS at [facility] - Desires possible Hx PTD - G1 at 34w - G2 at 36w COVID-19 SCREEN: Lab Results Component Value Date/Time COVID19 Not Detected 08/30/2020 11:37 PM Antepartum course reviewed - sero negative, Rnot immune, VZVnot immune, A positive/IAT negative, GBS unk, Pap ASCUS 11/2017, negHRHPV, needs repeat cotesting in 3 years - H/H, plt: 14.5 / 40.7, 187 on 08[facility]28/20 [facility] - FHT 171-178 bpm via M mode on admission BSUS Major Velasquez MD - 08/31/2020 1:15 PM CDTJamiee Luly Fuentes [id number] 08/31/2020 1:15 PM Post-Rounds: - daily BMP [...] Physician: Cornelius Fernandez CHIEF COMPLAINT Transfer from [facility] ED HISTORY OF PRESENT ILLNESS Suraj Fuentes is a 29 year old at 8w0d who was transferred from [facility] ED for nausea and vomiting during with [...] for over 2 days. She went to [facility] earlier this week (3-4 days ago), then presented to [facility] ED Saturday night.She was given 1L bolus, IV zofran, IV phenergan, and reglan, PO challenged with water/crackers, thensent home with renewed eRx vitamin B6. Reports PO zofran and Reglan not helping right now, therefore [facility] Course: Afebrile, Pulse 71-86, BP 110-130/60-80s [...] Manny Gray; Location: Labor and Delivery - [place] Past Medical History: Diagnosis Date Abnormal maternal [...] Oral Q6H Allergies and drug reactions: Ibuprofen, [place], and Sodium citrate (bulk) HOME MEDICATIONS Medications [...] (ZOFRAN ORAL) Take by mouth. Taking vit 65-ogbr-gkzmj-dha (SELECT-OB + DHA) 29 mg iron-1 mg [...] 1H GTT Lab Results Component Value Date/Time [id number] 124 08/03/2020 02:17 PM CBC Lab Results [...] 05/20/2018 Obesity in 01/25/2015 ICD10 Diagnosis Term Invoice Control Clerk Utility Resolved Hospital Problems No resolved problems [...] tolerate PO for over 2 days - [facility] Course: s/p 2L NS bolus, IV 4mg zofran, 12.5 benadryl, 20mg Pepcid, 12.5 phenergan, refused second phenergan dose so given Reglan 10mg, 20mEq KCL repletion - OSH labs remarkable for K 3.2, Cr 0.72, LFT WNL, lipase 59, Udip with 2+ ketone - Patient reports severe nausea, dry heaving noted at bedside - Upon transfer to [facility], P 80s, BP 120/60s - Repeat UA [...] presentation at 37w - Documented LTCS at [facility] - Desires possible Hx PTD - G1 at 34w - G2 at 36w COVID-19 SCREEN: Lab Results Component Value Date/Time COVID19 Not Detected 08/30/2020 11:37 PM Antepartum course reviewed - sero negative, Rnot immune, VZVnot immune, A positive/IAT negative, GBS unk, Pap ASCUS 11/2017, negHRHPV, needs repeat cotesting in 3 years - H/H, plt: 14.5 / 40.7, 187 [facility] 171-178 bpm via [...] food allergy below. Confirmed Food Allergy: 1. [place] Reaction:Hives Confirmed Cultural Food Preferences: 1. None Confirmed Worship Food Preferences: 1. None Kary Coppola MS, RD, LD Clinical Dietitian RD Office: [phone] documented in this encounter Miscellaneous Notes Care [...] 09/08/2020 Routine Visit OB Satellites Lauren Fernandez, SHOE STICKS REPAIRER [address] [address] [phone] Name Type Priority Associated Diagnoses Order S [...] AM CDT) NA 135 135 - 145 [facility] mmol/L SERVICES K 3.6 3.5 - 5.0 [facility] mmol/L SERVICES CL 106 98 - 108 mmol/L [facility] SERVICES CO2 TOTAL 21 (L) 23 - 31 mmol/L [facility] AGAP 8 2 - 16 [facility] BUN 3 (L) 7 - 23 mg/dL [facility] GLUCOSE 106 70 - 110 mg/dL [facility] CREATININE 0.46 (L) 0.50 - 1.04 [facility] mg/dL SERVICES CALCIUM 8.6 8.6 - 10.6 [facility] mg/dL SERVICES eGFR Calculation 160.6 mL/min/1.73m2 [facility] (Non- SERVICES Chilean) eGFR Calculation 194.7 mL/min/1.73m2 [facility] () SERVICES [...] in imaging tests) . Performing Organization Address City/[facility] Phone Number [facility] CLIA: [id number] [place], [place] [address] [address] [place] [address] URINALYSIS (08/31/2020 4:07 PM CDT) Pathologist Sig [...] - URINE, CLEAN CATCH Performing Organization Address [facility] Phone Number [facility] CLIA: [id number] [place] [address] [place] [address] Type and Screen - ONCE Routine (08/31/2020 12:23 AM CDT) Pathologist [facility] ABO & RH A POSITIVE LAB Comment: Performed at [facility] Laboratory Services - [facility] Blood Bank [address] [place] [address] Toll Free: [phone] CLIA No. [id number] IAT Negative LAB Comment: Performed at [facility] Laboratory Services - [facility] Blood Bank [address] [place] [address] Toll Free: [phone] CLIA No. [id number] Specimen Blood - VENOUS Performing Organization Address City[facility] Phone Number [facility] LAB BASIC METABOLIC PANEL (NA, K, CL, CO2, GLUCOSE, BUN, CREATININE, CA) (08/31/2020 12:17 AM CDT) [facility] NA 134 (L) 135 - 145 [facility] mmol/L SERVICES K 3.8 3.5 - 5.0 [facility] mmol/L SERVICES CL 104 98 - 108 mmol/L [facility] SERVICES CO2 TOTAL 22 (L) 23 - 31 mmol/L [facility] SERVICES AGAP 8 2 - 16 [facility] SERVICES BUN <2 (L) 7 - 23 mg/dL [facility] SERVICES GLUCOSE 87 70 - 110 mg/dL [facility] SERVICES CREATININE 0.50 0.50 - 1.04 [facility] mg/dL SERVICES CALCIUM 8.8 8.6 - 10.6 [facility] mg/dL SERVICES eGFR Calculation 145.9 mL/min/1.73m2 [facility] (Non- SERVICES [place]an) eGFR Calculation 176.8 mL/min/1.73m2 [facility] () SERVICES [...] in imaging tests) . Performing Organization Address City/[facility]/Zipcode Phone Number [facility] CLIA: [id number] [place] [address] [place] [address] COVID-19 (ID NOW RAPID TESTING) (08/30/2020 11:37 PM CDT) SARS-CoV-2 Rapid ID Not Detected Not Detected [facility] NOW SERVICES Specimen Swab - NASOPHARYNGEAL SWAB Narrative Performed At [place] NOW COVID-19 Assay is an isothermal nucleic acid [facility] SERVICES amplification test intended for the qualitative detect ion of nucleic acid from SARS-CoV-2 viral RNA in nasopharynge al (PIG CONVEYOR OPERATOR) specimens. It is used under Emergency [...] indicated. Performing Organization Address City/State/Zipcode Phone Number [facility] CLIA: [id number] [place] [address] [phone] [address] [facility] URINALYSIS (08/30/2020 10:44 PM CDT) Pathologist Sig nature APPEARANCE Clear Clear [facility] COLOR Yellow Yellow [facility] PH 7.0 4.8 - 8.0 [facility] SP GRAVITY 1.012 1.003 - 1.030 [facility] GLU U QUAL Normal Normal [facility] BLOOD Negative Negative [facility] KETONES 80 mg/dL (A) Negative [facility] PROTEIN Negative Negative [facility] UROBILIN Normal Normal [facility] BILIRUBIN Negative Negative [facility] NITRITE Negative Negative [facility] LEUK HO Negative Negative [facility] RBC/HPF 2 0 - 3 HPF [facility] WBC/HPF <1 0 - 5 HPF [facility] BACTERIA Negative Negative [facility] MUCOUS Slight (A) Negative LPF [facility] SQ EPITH 1 <=2 HPF [facility] ASCORBIC ACID Negative [facility] Specimen Urine - URINE, CLEAN CATCH Performing Organization Address City/State/Zipcode Phone Number [facility] CLIA: [id number] [place] [address] [place] [address] documented in this encounter Visit Diagnoses Diagnosis [...] mL/hr, 1,000 mL, Intravenous, ONCE, 1 dose, [facility] 08/30/20 at 2330, Routine potassium chloride [...] Address T ype Group Dates ASIA BETANCOURT [id number] 2018-Anupama P [address] BOX Medic [place] [phone] [place] documented as of this encounter Advance Directives Type Date Recorded 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
--- OUTSIDE RECORDS SUMMARY | 2020-09-27 14:26 | XMS REPORT | Summary of Care ---
:1990 Author Organization [facility] Address [address] [place] [address] Care Team Providers Name Role Phone Gamal Saravia Insurance Hmo Lauren Fernandez Primary Care Provider Reason for Visit Reason Comments Abdominal Pain Vomiting Auth/Cert Status Reason Specialty Diagnoses / Referred By Referred To Procedures Contact Contact Emergency Medicine Adc Em ergency Dept [address] [phone] Fax: Encounter Details Date Type Department Care Team Description 09/07/2020 Emergency ADC-Emergency Depart ment Mary Carmen Jacobs, PAC [address] [address] [place] [address] [place] [address] [place] [address] [phone] Allergies Active Allergy Reactions Severity Noted Date Comments Ibuprofen Hives 04/15/2014 [place] Hives 04/15/2014 Sodium Citrate (Bulk) Nausea and/or Vomiting 9 documented as of this encounter (statuses as of 09/07/2020) Medications Medication Sig Dispensed Refills Start Date End Date Status vit Take 1 Packet by 30 Each 6 08/03/2020 Active 92-utib-hrbxs-dha mouth daily. 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 Commissioning Manager Utility Encounter for IUD removal and [...] management 01/25/2015 05/20/2018 Overview: ICD10 Diagnosis Term Commissioning Manager Utility Breast tenderness in female 01/25/2015 05/20/2018 Not immune to rubella 04/16/2014 06/04/2016 Overview: ICD10 Diagnosis Term Commissioning Manager Utility documented as of this encounter [...] active vomiting noted. Also discussed contacting her architecture technician for termination. Pt signed AMA form and walked out of ER without incident. Brenda frost RN - 09/07/2020 2:45 PM CDTPt upset with staff regarding visitor policy states, "She just needs an manager wastewater. 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
--- OUTSIDE RECORDS SUMMARY | 2020-09-27 14:26 | XMS REPORT | Summary of Care ---
:1990 Author Organization [facility] Address [address] [place] [address] Care Team Providers Name Role Phone Gamal Saravia Insurance Hmo Lauren Fernandez LAP WELDER Primary Care Provider Reason for Visit Reason Comments Assessment vomit Encounter Details Date Type Department Care Team Description 09/06/2020 Telephone [facility]- Cornelius Fernandez, As sessment (vomit) [facility] [address] [facility] [address] [place] [address] [place] [address] [phone] Allergies Active Allergy Reactions Severity Noted Date Comments Ibuprofen Hives 04/15/2014 [place] Hives 04/15/2014 Sodium Citrate (Bulk) Nausea and/or Vomiting 9 documented as of this encounter (statuses as of 09/06/2020) Medications Medication Sig Dispensed Refills Start End Date Status Date vit Take 1 Packet by 30 Each 6 Active 09-cbtw-gsrww-dha mouth daily. 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 Outside Sales Representative Utility Encounter for IUD removal and reinsertion 01/18/2015 ASCUS on Pap smear 04/15/2014 Estimated Date of Delivery Comments Yes 04/11/2021 Based on Ultrasound, FHT: 127, Transverse Presentation, Placen ta Too early to evaulate documented as of this encounter (statuses as of 09/06/2020) Resolved Problems Problem Noted Date Resolved Date 37 weeks gestation of 12/18/2018 01/08/20 19 [place] Hick's contraction 12/12/2018 01/08/2019 Abnormal maternal glucose [...] management 01/25/2015 05/20/2018 Overview: ICD10 Diagnosis Term Outside Sales Representative Utility Breast tenderness in female 01/25/2015 05/20/2018 Not immune to rubella 04/16/2014 06/04/2016 Overview: ICD10 Diagnosis Term Outside Sales Representative Utility documented as of this encounter (statuses [...] pain. Stated her is taking her to [facility]. informed patient to f/u after [...] old female Patient stated she went to [facility] 08/28[facility]20 for N/V and has [...] has been loosing weight , please call [phone] (home) documented in this encounter Plan of Treatment Date Type Specialty Care Team Description 09/08/2020 Routine Visit OB Satellites Lauren Fernandez FNP [address] [place], [place] [address] [phone] Health Maintenance Due Date Last Done Comments [...] Address T e Group Dates ASIA BETANCOURT [id number] 2018-Anupama Camacho [place] [address] MANAGED MEDICAID [place] documented as of this encounter Advance Directives Type Date Recorded 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
--- OUTSIDE RECORDS SUMMARY | 2020-09-27 14:26 | XMS REPORT | Summary of Care ---
:1990 Author Organization [facility] Address [address] [place] [address] Care Team Providers Name Role Phone Gamal Saravia Insurance Hmo Lauren Fernandez DECK ENGINEER Primary Care Provider Reason for Visit Reason Comments Assessment vomit Encounter Details Date Type Department Care Team Description 09/06/2020 Telephone [facility]- Cornelius Fernandez, As sessment (vomit) [facility] [address] [facility] [address] [place] [address] [place] [address] [phone] Allergies Active Allergy Reactions Severity Noted Date Comments Ibuprofen Hives 04/15/2014 [place] Hives 04/15/2014 Sodium Citrate (Bulk) Nausea and/or Vomiting 9 documented as of this encounter (statuses as of 09/06/2020) Medications Medication Sig Dispensed Refills Start End Date Status Date vit Take 1 Packet by 30 Each 6 Active 18-fctr-ycuve-dha mouth daily. 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 Grab Setter Utility Encounter for IUD removal and reinsertion 01/18/2015 ASCUS on Pap smear 04/15/2014 Estimated Date of Delivery Comments Yes 04/11/2021 Based on Ultrasound, FHT: 127, Transverse Presentation, Placen ta Too early to evaulate documented as of this encounter (statuses as of 09/06/2020) Resolved Problems Problem Noted Date Resolved Date 37 weeks gestation of 12/18/2018 01/08/20 19 [place] Hick's contraction 12/12/2018 01/08/2019 Abnormal maternal glucose [...] management 01/25/2015 05/20/2018 Overview: ICD10 Diagnosis Term Grab Setter Utility Breast tenderness in female 01/25/2015 05/20/2018 Not immune to rubella 04/16/2014 06/04/2016 Overview: ICD10 Diagnosis Term Grab Setter Utility documented as of this encounter (statuses [...] Alfreda Vaughn LVN - 09/06/2020 1:55 PM CDTSurja aMuricio Clotilde Fuentes is a 29 year old female Patient stated she went to [facility] 08/28/20 for N/V and [...] has been loosing weight , please call [phone] (home) documented in this encounter Plan of Treatment Date Type Specialty Care Team Description 09/08/2020 Routine Visit OB Satellites Lauren Fernandez, DECK ENGINEER [address] [address] [phone] Health Maintenance Due Date Last Done Comments [...] Address T e Group Dates ASIA BETANCOURT [id number] 2018-Anupama Camacho O BOX Medic [place] [address] MANA[place]ED MEDICA[place] documented as of this encounter Advance Directives Type Date Recorded Patient Customer Experience Retail Clerk Explanati on Advance Directives and Living Will Power of Furnace Loader Name Relationship Healthcare Agent Relationship Co mmunication Floyd Brown Father Health Care Agent Preet Coffey Other Health Care Agent [place] Fuentes Spouse First [facility] Care Agent (Mobile)
--- OUTSIDE RECORDS SUMMARY | 2020-09-27 14:26 | XMS REPORT | Summary of Care ---
:1990 Author Organization [facility] Address [address] [place] [address] Care Team Providers Name Role Phone Gamal Saravia Insurance Hmo Lauren Fernandez MANAGER IMPLEMENTATION Primary Care Provider Reason for Visit Reason Comments Assessment vomit Encounter Details Date Type Department Care Team Description 09/06/[address] [facility]- Cornelius Fernandez, As sessment (vomit) [facility] [address] [facility] [address] [place] [address] [place] [address] [phone] Allergies Active Allergy Reactions Severity Noted Date Comments Ibuprofen Hives 04/15/2014 [place] Hives 04/15/2014 Sodium Citrate (Bulk) Nausea and/or Vomiting 9 documented as of this encounter (statuses as of 09/06/2020) Medications Medication Sig Dispensed Refills Start Date End Date Status vit Take 1 Packet by 30 Each 6 08/03/2020 Active 82-aoqn-oeogy-dha mouth daily. 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 Sheepskin Pickler Utility Encounter for IUD removal and reinsertion [...] management 01/25/2015 05/20/2018 Overview: ICD10 Diagnosis Term Sheepskin Pickler Utility Breast tenderness in female 01/25/2015 05/20/2018 Not immune to rubella 04/16/2014 06/04/2016 Overview: ICD10 Diagnosis Term Sheepskin Pickler Utility documented as of this encounter (statuses as of 09/06/2020) Immunizations Name Administration Dates Next Due HPV9 06/04/2016 MMR 12/20/2018 (Deferred: - not available f [facility]) TDAP 04/06/2015 TDAP (ADACEL) VACCINE [...] Patient stated she went to [facility] 08[facility]28[facility] for N/V and has [...] has been loosing weight , please call [phone] (home) documented in this encounter Plan of Treatment Date Type Specialty Care Team Description 09/08/2020 Routine Visit OB Satellites Lauren Fernandez FNP [address] [place] [address] [phone] Health Maintenance Due Date Last Done Comments [...] Address T e Group Dates ASIA BETANCOURT [id number] 2018-Anupama [address] BOX Medic [place] [id number] [place]ED MED[place] documented as of this encounter Advance Directives Type Date Recorded 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
--- OUTSIDE RECORDS SUMMARY | 2020-09-27 14:27 | XMS REPORT | Summary of Care ---
:1990 Author Organization [facility] Address [address] [place] [address] Care Team Providers Name Role Phone Gamal Saravia Insurance Hmo Lauren Fernandez RN PARALEGAL Primary Care Provider Reason for Visit Reason Comments Rx Concern/Question prior auth go to cover mymed s [id number] Encounter Details Date Type Department Care Team Description 09/07/[address] [facility]- Cornelius Fernandez, Rx Concern/Question [place] FNP (prior auth go to [facility] [address] [facility] cover mymeds [id number]) [place] [address] [place], [place] [phone] [address] [phone] Allergies Active Allergy Reactions Severity Noted Date Comments Ibuprofen Hives 04/15/2014 [place] Hives 04/15/2014 Sodium Citrate (Bulk) Nausea and/or Vomiting 9 documented as of this encounter (statuses as of 09/08/2020) Medications Medication Sig Dispensed Refills Start Date End Date Status vit Take 1 Packet by 30 Each 6 08/03/2020 Active 58-ntvq-azcif-dha mouth daily. (SELECT-OB + DHA) 29 mg [...] in 01/25/2015 Overview: ICD10 Diagnosis Term Car Scrubber Utility Encounter for IUD removal and reinsertion 01/18/2015 ASCUS on Pap smear 04/15/2014 Estimated Date of Delivery Comments Yes 04/11/2021 Based on Ultrasound, FHT: 127, Transverse Presentation, Placen ta Too early to evaulate documented as of this encounter (statuses as of 09/08/2020) Resolved Problems Problem Noted Date Resolved Date 37 weeks gestation of 12/18/2018 01/08/20 19 [place] Hick's contraction 12/12/2018 01/08/2019 Abnormal maternal glucose [...] 01/25/2015 05/20/2018 Overview: ICD10 Diagnosis Term Car Scrubber Utility Breast tenderness in female 01/25/2015 05/20/2018 Not immune to rubella 04/16/2014 06/04/2016 Overview: ICD10 Diagnosis Term Car Scrubber Utility documented as of this encounter (statuses [...] for authorization of nausea medication. Please call [phone] (home) documented in this encounter Plan of Treatment Date Type Specialty Care Team Description 10/06/2020 Routine Visit OB Satellites Lauren Fernandez, RN PARALEGAL [address] [place] [address] [phone] Health Maintenance Due Date Last Done Comments [...] Address T biancae Group Dates ASIA BETANCOURT [id number] 2018-Anupama Camacho O BOX Medic [place] [id number] [place]ED MED[place] documented as of this encounter Advance Directives Type Date Recorded Patient Assistant Education Director Explanati on Advance Directives and Living Will Power of Spring Tier Name Relationship Healthcare Agent Relationship Co mmunication Floyd Brown Father Health Care Agent Preet Coffey Other Health Care Agent [place] Fuentes Spouse First [facility] Health Care Agent (Mobile)
--- OUTSIDE RECORDS SUMMARY | 2020-09-27 14:27 | XMS REPORT | Summary of Care ---
:[address] [facility] Address [address] [place] [address] Care Team Providers Name Role Phone Gamal Saravia Insurance Hmo Lauren Fernandez Primary Care Provider Reason for Visit Reason Comments ROUTINE VISIT (Routine) Status Reason Specialty Diagnoses / Referred By Referred To Procedures Contact Contact New Request OB Satellites Diagnoses Hyperemesis gravidarum Marisel Galvan, Procedures Discharge Follow-Up: Water Main Installer Helper Lorena FRANKLIN [address] [facility] [id number] [place] [address] Encounter Details Date Type Department Care Team Description 09/08/2020 Routine [facility]- Cornelius Fernandez upervision of high risk in first trimester (Primary Dx); Visit ELIZ Holland Previous section complicating p regnancy; [address] [place] NANCY (vaginal after ) trial; [address]; [place], [place], [place] Nausea and vomi ting during ; [phone] Obesity in [phone] Allergies Active Allergy Reactions Severity Noted Date Comments Ibuprofen Hives 04/15/2014 [place] Hives 04/15/2014 Sodium Citrate (Bulk) Nausea and/or Vomiting 9 documented as of this encounter (statuses as of 09/08/2020) Medications Medication Sig Dispensed Refills Start Date End Date Status vit Take 1 Packet by 30 Each 6 08/03/2020 Active 46-higm-brdkl-dha mouth daily. 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 Precision Lathe Operator Utility Encounter for IUD removal and reinsertion 01/18/2015 ASCUS on Pap smear 04/15/2014 Estimated Date of Delivery Comments Yes 04/11/2021 Based on Ultrasound, FHT: 127, Transverse Presentation, Placen ta Too early to evaulate documented as of this encounter (statuses as of 09/08/2020) Resolved Problems Problem Noted Date Resolved Date 37 weeks gestation of 12/18/2018 01/08/20 19 [place] Hick's contraction 12/12/2018 01/08/2019 Abnormal maternal glucose [...] management 01/25/2015 05/20/2018 Overview: ICD10 Diagnosis Term Precision Lathe Operator Utility Breast tenderness in female 01/25/2015 05/20/2018 Not immune to rubella 04/16/2014 06/04/2016 Overview: ICD10 Diagnosis Term Precision Lathe Operator Utility documented as of this encounter [...] in this encounter Progress Notes Cornelius Fernandez, HR SHARED SERVICES CONSULTANT - 09/08/2020 10:45 AM CDT Chief complaint: Chief Complaint Patient presents with ROUTINE VISIT HPI CC: Follow Up Visit Suraj Fuentes is a 29 year old, , /White female. Patient's last menstrual period was 06/08/2020 (approximate). She is 9w2d with an intrauterine . Her estimated date of delivery is 04/11/2021, by Ultrasound. She went to [facility] for nausea and vomitin g, Zofran [...] Manny Gray; Location: Labor and Delivery - [place] Social History Socioeconomic History Marital status: Spouse [...] file Gets together: Not on file Attends religion service: Not on file Active member of [...] sexual or emotional abuse. Only outside cats. Gnosticism: None Patient lives with spouse and kids. [...] problems of obesity on future pregnancies and/or group home health. Return to clinic in 4 [...] Address T ype Group Dates ASIA BETANCOURT [id number] 2018-Anupama Camacho O BOX Medic aid [facility]ALTHCARE - [facility] [id number] MANAGED MEDICAID [place], [place] documented as of this encounter Advance Directives Type Date Recorded Patient Frame Opener Explanati on Advance Directives and Living Will Power of Aircraft Machinist Helper Name Relationship Healthcare Agent Relationship Co mmunication Floyd Brown Father Health Care Agent Preet Coffey Other Health Care Agent [place] Gina Spouse [facility] Health Care Agent (Mobile)
--- OUTSIDE RECORDS SUMMARY | 2020-09-27 14:27 | XMS REPORT | Summary of Care ---
:1990 Author Organization [facility] Address [address] [place] [address] Care Team Providers Name Role Phone Gamal Saravai Insurance Hmo Lauren Fernandez Primary Care Provider Reason for Visit Reason Comments ROUTINE VISIT (Routine) Status Reason Specialty Diagnoses / Referred By Referred To Procedures Contact Contact New Request OB Satellites Diagnoses Hyperemesis gravidarum Marisel Galvan, Procedures Discharge Follow-Up: Trim Mounter Lorena FRANKLIN [address] [facility] [id number] [place] [address] Encounter Details Date Type Department Care Team Description 09/08/2020 Routine [facility]- Cornelius Fernandez upervision of high risk in first trimester (Primary Dx); Visit ELIZ Holland Previous section complicating p regnancy; [address] [place] V NANCY (vaginal after ) trial; [address] [place] [place] [address]; [place], [place], [place] Nausea and vomi ting during ; [phone] Obesity in [phone] Allergies Active Allergy Reactions Severity Noted Date Comments Ibuprofen Hives 04/15/2014 [place] Hives 04/15/2014 Sodium Citrate (Bulk) Nausea and/or Vomiting 9 documented as of this encounter (statuses as of 09/08/2020) Medications Medication Sig Dispensed Refills Start Date End Date Status vit Take 1 Packet by 30 Each 6 08/03/2020 Active 70-iokq-bllsb-dha mouth daily. 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 Insulation Sprayer Utility Encounter for IUD removal and reinsertion 01/18/2015 ASCUS on Pap smear 04/15/2014 Estimated Date of Delivery Comments Yes 04/11/2021 Based on Ultrasound, FHT: 127, Transverse Presentation, Placen ta Too early to evaulate documented as of this encounter (statuses as of 09/08/2020) Resolved Problems Problem Noted Date Resolved Date 37 weeks gestation of 12/18/2018 01/08/20 19 [place] Hick's contraction 12/12/2018 01/08/2019 Abnormal maternal glucose [...] management 01/25/2015 05/20/2018 Overview: ICD10 Diagnosis Term Insulation Sprayer Utility Breast tenderness in female 01/25/2015 05/20/2018 Not immune to rubella 04/16/2014 06/04/2016 Overview: ICD10 Diagnosis Term Insulation Sprayer Utility documented as of this encounter (statuses as of 09/08/2020) Immunizations Name Administration Dates Next Due HPV9 06/04/2016 MMR 12/20/2018 (Deferred: - not available f [facility]) TDAP 04/06/2015 TDAP (ADACEL) VACCINE 12/11/2018 [...] in this encounter Progress Notes Cornelius Fernandez, OBSTETRICS TEACHER - 09/08/2020 10:45 AM CDT Chief complaint: Chief Complaint Patient presents with ROUTINE VISIT HPI CC: Follow Up Visit Suraj Fuentes is a 29 year old, , /White female. Patient's last menstrual period was 06/08/2020 (approximate). She is 9w2d with an intrauterine . Her estimated date of delivery is 04/11/2021, by Ultrasound. She went to [facility] ER for nausea and vomitin g, [...] Manny Gray; Location: Labor and Delivery - [place] Social History Socioeconomic History Marital status: Spouse [...] file Gets together: Not on file Attends zoroastrianism service: Not on file Active member of [...] problems of obesity on future pregnancies and/or senior care health. Return to clinic in 4 weeks. [...] 10/06/2020 Routine Visit OB Satellites Lauren Fernandez, OBSTETRICS TEACHER [address] [place], [place] [address] [phone] Health Maintenance Due Date Last Done Comments [...] Address T ype Group Dates ASIA BETANCOURT [id number] 2018-Anupama HIDALGO Medic [place] [id number] MANA[place]ED MEDICA[place] documented as of this encounter Advance Directives Type Date Recorded Patient Carton Counter Feeder Explanati on Advance Directives and Living Will Power of Die Hardener Name Relationship Healthcare Agent Relationship Co mmunication Floyd Brown Father Health Care Agent Preet Milagrosteph Other Health Care Agent [place] Fuentes Spouse First [facility] Health Care Agent (Mobile)
--- OUTSIDE RECORDS SUMMARY | 2020-09-27 14:27 | XMS REPORT | Summary of Care ---
:1990 Author Organization [facility] Address [address] [place] [address] Care Team Providers Name Role Phone Gamal Saravia Insurance Hmo Lauren Fernandez Primary Care Provider Reason for Visit Reason Comments ROUTINE VISIT (Routine) Status Reason Specialty Diagnoses / Referred By Referred To Procedures Contact Contact New Request OB Satellites Diagnoses Hyperemesis gravidarum Marisel Galvan, Procedures Discharge Follow-Up: Almond Pan Finisher Lorena FRANKLIN [address] [facility] [id number] [place] [address] Encounter Details Date Type Department Care Team Description 09/08/2020 Routine [facility]- Cornelius Fernandez upervision of high risk in first trimester (Primary Dx); Visit ELIZ Holland Previous section complicating p regnancy; [address] [place] V NANCY (vaginal after ) trial; [address] [place] [address]; [place], [place], [place] Nausea and vomi ting during ; [phone] Obesity in [phone] Allergies Active Allergy Reactions Severity Noted Date Comments Ibuprofen Hives 04/15/2014 [place] Hives 04/15/2014 Sodium Citrate (Bulk) Nausea and/or Vomiting 9 documented as of this encounter (statuses as of 09/08/2020) Medications Medication Sig Dispensed Refills Start Date End Date Status vit Take 1 Packet by 30 Each 6 08/03/2020 Active 26-jmcr-asucd-dha mouth daily. 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 Pulp Drier Utility Encounter for IUD removal and reinsertion 01/18/2015 ASCUS on Pap smear 04/15/2014 Estimated Date of Delivery Comments Yes 04/11/2021 Based on Ultrasound, FHT: 127, Transverse Presentation, Placen ta Too early to evaulate documented as of this encounter (statuses as of 09/08/2020) Resolved Problems Problem Noted Date Resolved Date 37 weeks gestation of 12/18/2018 01/08/20 19 [place] Hick's contraction 12/12/2018 01/08/2019 Abnormal maternal glucose [...] management 01/25/2015 05/20/2018 Overview: ICD10 Diagnosis Term Pulp Drier Utility Breast tenderness in female 01/25/2015 05/20/2018 Not immune to rubella 04/16/2014 06/04/2016 Overview: ICD10 Diagnosis Term Pulp Drier Utility documented as of this encounter (statuses [...] in this encounter Progress Notes Cornelius Fernandez, WAXER FLOOR - 09/08/2020 10:45 AM CDT Chief complaint: Chief Complaint Patient presents with ROUTINE VISIT HPI CC: Follow Up Visit Suraj Fuentes is a 29 year old, , /White female. Patient's last menstrual period was 06/08/2020 (approximate). She is 9w2d with an intrauterine . Her estimated date of delivery is 04/11/2021, by Ultrasound. She went to [facility] ER for nausea and vomitin [...] Manny Gray; Location: Labor and Delivery - [place] Social History Socioeconomic History Marital status: Spouse [...] file Gets together: Not on file Attends catholic service: Not on file Active member of [...] sexual or emotional abuse. Only outside cats. Baptist: None Patient lives with spouse and kids. 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
--- OUTSIDE RECORDS SUMMARY | 2020-09-27 14:28 | XMS REPORT | Summary of Care ---
:1990 Author Organization [facility] Address [address] [place] [address] Care Team Providers Name Role Phone Gamal Saravia Insurance Hmo Lauren Fernandez OPERATING ROOM ASSISTANT Primary Care Provider Reason for Visit Reason Comments Other PRIOR AUTH go to [facility] [id number] Encounter Details Date Type Department Care Team Description 09/08/[address] [facility]- Cornelius Fernandez, Ot her (PRIOR AUTH go [facility] [address] [facility] [id number]) [place] [address] [place], [place] [phone] [address] [phone] Allergies Active Allergy Reactions Severity Noted Date Comments Ibuprofen Hives 04/15/2014 [place] Hives 04/15/2014 Sodium Citrate (Bulk) Nausea and/or Vomiting 9 documented as of this encounter (statuses as of 09/09/2020) Medications Medication Sig Dispensed Refills Start Date End Date Status vit Take 1 Packet by 30 Each 6 08/03/2020 Active 60-cdgm-rcgij-dha mouth daily. 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 Veneer Sheet Repairer Utility Encounter for IUD removal and reinsertion 01/18/2015 ASCUS on Pap smear 04/15/2014 Estimated Date of Delivery Comments Yes 04/11/2021 Based on Ultrasound, FHT: 127, Transverse Presentation, Placen ta Too early to evaulate documented as of this encounter (statuses as of 09/09/2020) Resolved Problems Problem Noted Date Resolved Date 37 weeks gestation of 12/18/2018 01/08/20 19 [place] Hick's contraction 12/12/2018 01/08/2019 Abnormal maternal glucose [...] management 01/25/2015 05/20/2018 Overview: ICD10 Diagnosis Term Veneer Sheet Repairer Utility Breast tenderness in female 01/25/2015 05/20/2018 Not immune to rubella 04/16/2014 06/04/2016 Overview: ICD10 Diagnosis Term Veneer Sheet Repairer Utility documented as of this encounter [...] 09/08/2020 4:09 PM CDTGo to covermymeds Doxylamine [id number] signed by Leyla Sapp at 09/08/2020 4:13 PM CDT documented in this encounter Plan of Treatment Date Type Specialty Care Team Description 10/06/2020 Routine Visit OB Satellites Lauren Fernandez, OPERATING ROOM ASSISTANT [address] [place], [place] [address] [phone] Health Maintenance Due Date Last Done Comments [...] Address T ype Group Dates ASIA BETANCOURT [id number] 2018-Anupama HIDALGO Medic [place] [id number] MA[place]ED MED[place] documented as of this encounter Advance Directives Type Date Recorded Patient Solution Consultant Explanati on Advance Directives and Living Will Power of Inspector Receiving Name Relationship Healthcare Agent Relationship Co mmunication Floyd Brown [facility] Health Care Agent Preet Coffey Other Health Care Agent [place] Fuentes Spouse First [facility] Health Care Agent (Mobile)
--- OUTSIDE RECORDS SUMMARY | 2020-09-27 14:28 | XMS REPORT | Summary of Care ---
:1990 Author Organization [email or web address] Address [address] [place] [address] Care Team Providers Name Role Phone Gamal Saravia Insurance Hmo Lauren Fernandez Primary Care Provider Encounter Details Date Type Department Care Team Description 09/20/2020 Orders Only [facility] [[email or web address]] Doctor Unassigned, No [address] [facility] [place] [address] [address] [place] [address] Allergies Active Allergy Reactions Severity Noted Date Comments Ibuprofen Hives 04/15/2014 [place] Hives 04/15/2014 Sodium Citrate (Bulk) Nausea and/or Vomiting 9 documented as of this encounter (statuses as of 09/20/2020) Medications Medication Sig Dispensed Refills Start Date End Date Status vit Take 1 Packet by 30 Each 6 08/03/2020 Active 85-moku-tltyk-dha mouth daily. 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 Enterprise Analyst Utility Encounter for IUD removal and reinsertion 01/18/2015 ASCUS on Pap smear 04/15/2014 Estimated Date of Delivery Comments Yes 04/11/2021 Based on Ultrasound, FHT: 127, Transverse Presentation, Placen ta Too early to evaulate documented as of this encounter (statuses as of 09/20/2020) Resolved Problems Problem Noted Date Resolved Date 37 weeks gestation of 12/18/2018 01/08/20 19 [place] Hick's contraction 12/12/2018 01/08/2019 Abnormal maternal glucose [...] management 01/25/2015 05/20/2018 Overview: ICD10 Diagnosis Term Enterprise Analyst Utility Breast tenderness in female 01/25/2015 05/20/2018 Not immune to rubella 04/16/2014 06/04/2016 Overview: ICD10 Diagnosis Term Enterprise Analyst Utility documented as of this encounter (statuses [...] 10/06/2020 Routine Visit OB Satellites Lauren Fernandez, DISTANCE LEARNING UNIT LEADER [address] [place] [address] [phone] Health Maintenance Due Date Last Done Comments [...] Address T ype Group Dates ASIA BETANCOURT [id number] 2018-Anupama P [address] B[address] Medic [place] [id number] [place]ED [place] documented as of this encounter Advance Directives Type Date Recorded Patient Car Rental Service Attendant Explanati on Advance Directives and Living Will Power of Optometric Technician Name Relationship Healthcare Agent Relationship Co mmunication Floyd Holloway Health Care Agent (Work) Preet Coffey Other Health Care Agent [place] Fuentes Spouse First [facility] Agent (Mobile)[phone] (Work)
--- OUTSIDE RECORDS SUMMARY | 2020-09-27 14:28 | XMS REPORT | Summary of Care ---
:1990 Author Organization [facility] Address [address] [place] [address] Care Team Providers Name Role Phone Gamal Saravia Insurance Hmo Lauren Fernandez Primary Care Provider Reason for Visit Reason Comments Assessment Encounter Details Date Type Department Care Team Description 09/09/2020 Telephone [facility] RMP- A Cornelius Allen FNP Assessment [address] [facility] [address] [place] [address] [address] [place] [address] [phone] Allergies Active Allergy Reactions Severity Noted Date Comments Ibuprofen Hives 04/15/2014 [place] Hives 04/15/2014 Sodium Citrate (Bulk) Nausea and/or Vomiting 9 documented as of this encounter (statuses as of 09/09/2020) Medications Medication Sig Dispensed Refills Start Date End Date Status vit Take 1 Packet by 30 Each 6 08/03/2020 Active 49-odcr-mmnfa-dha mouth daily. 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 Food Service Steward Utility Encounter for IUD removal and reinsertion [...] management 01/25/2015 05/20/2018 Overview: ICD10 Diagnosis Term Food Service Steward Utility Breast tenderness in female 01/25/2015 05/20/2018 Not immune to rubella 04/16/2014 06/04/2016 Overview: ICD10 Diagnosis Term Food Service Steward Utility documented as of this encounter (statuses [...] 10/06/2020 Routine Visit OB Satellites Lauren Fernandez, YARD ATTENDANT [address] [place] [address] [phone] Health Maintenance Due Date Last Done Comments [...] / Subscriber ID Effective Phone Address T [facility] Group Dates ASIA BETANCOURT [id number] 2018-Anupama Camacho O BOX Medic [facility] [place] [facility] [place] [address] [place]NA[place]ED MED[place] documented as of this encounter Advance Directives Type Date Recorded Patient Technology Intern Explanati on Advance Directives and Living Will Power of Terminal Clerk Name Relationship Healthcare Agent Relationship Co mmunication Floyd Brown Father Health Care Agent Preet Coffey Other Health Care Agent [place] Gina Spouse First [facility] Care [phone] Agent (Mobile)
--- OUTSIDE RECORDS SUMMARY | 2020-09-27 14:28 | XMS REPORT | Summary of Care ---
:1990 Author Organization [facility] Address [address] [place] [address] Care Team Providers Name Role Phone Gamal Saravia Insurance Hmo Lauren Fernandez Primary Care Provider Reason for Visit Reason Comments Abdominal Pain Encounter Details Date Type Department Care Team Description 09/09/2020 [facility]aciela Burks, Abdominal Pain [facility] 110[address] [facility] [address] [place] [address] [address] [facility] [phone] [place], [place] [address] [phone] Allergies Active Allergy Reactions Severity Noted Date Comments Ibuprofen Hives 04/15/2014 [place] Hives 04/15/2014 Sodium Citrate (Bulk) Nausea and/or Vomiting 9 documented as of this encounter (statuses as of 09/09/2020) Medications Medication Sig Dispensed Refills Start Date End Date Status vit Take 1 Packet by 30 Each 6 08/03/2020 Active 65-evew-oqelj-dha mouth daily. 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 Molecular Geneticist Utility Encounter for IUD removal and reinsertion [...] management 01/25/2015 05/20/2018 Overview: ICD10 Diagnosis Term Molecular Geneticist Utility Breast tenderness in female 01/25/2015 05/20/2018 Not immune to rubella 04/16/2014 06/04/2016 Overview: ICD10 Diagnosis Term Molecular Geneticist Utility documented as of this encounter (statuses [...] she states she was seen at the [place] [facility] earlier today but reports no imaging was done, she was only given IV fluids. Patient advised to go to L&D for further evaluation, the gentleman and patient agreed and reported that he would to take her to [place] L[facility]. Report called and given to Sharlene MEJÍA. BELLA Brower 09/09/2020 4:24 PM documented in this encounter Plan of Treatment Date Type Specialty Care Team Description 10/06/2020 Routine Visit OB Satellites Lauren Fernandez, GROUND CREW LINES PERSON [address] [place], [place] [address] [phone] Health Maintenance Due Date Last Done Comments [...] Address T e Group Dates ASIA BETANCOURT [id number] 2018-Anupama S[place] BOX Medic [place] [address] [place] documented as of this encounter Advance Directives Type Date Recorded Patient Diaper Machine Tender Explanati on Advance Directives and Living Will Power of Electrical Prospector Name Relationship Healthcare Agent Relationship Co mmunication Floyd Brown [facility] Health Care Agent Preet Coffey Other Health Care Agent [place] Fuentes Spouse First [facility] Health Care Agent (Mobile)
--- OUTSIDE RECORDS SUMMARY | 2020-09-27 14:28 | XMS REPORT | Summary of Care ---
:1990 Author Organization [facility] Address [address] [place] [address] Care Team Providers Name Role Phone Gamal Saravia Insurance Hmo Lauren Fernandez MAINTENANCE SCHEDULER Primary Care Provider Reason for Referral (Routine) Status Reason Specialty Diagnoses / Procedures Referred By Lauren marquez To Contact Contact New Request Diagnoses Nausea and vomiting, intractability of vomiting not specified, unspecified vomiting type Hyperemesis gravidarum Prema Hernandez MD Procedures Discharge Follow-Up: System Administration Advisor Clnic [address] [place] [address]. [place] [address] Radiology Services (STAT) Status Reason Specialty Diagnoses / Referred By Referred To Procedures Contact Contact New Request Diagnostic Diagnoses Nausea and vomiting, intractability of vomiting not specified, unspecified vomiting type Generalized abdominal pain Marcelo Carpio Radiology Procedures US ABDOMEN LIMITED MD Keerthi [address] [place] [address] [id number] [place] [address] Reason for Visit Reason Comments Abdominal Pain Auth/Cert Status Reason Specialty Diagnoses / Referred By Referred To Procedures Contact Contact Emergency Medicine [facility] rgency Dept [address] [place] [address] Fax: Encounter Details Date Type Department Care Team Description 09/09/2020 - Hospital Encounter Obstetrics and ShirinMarcelo MD [address] [facility] [address] [id number] [place], [place] [id number] Nausea & vomiting 09/10/2020 Gynecology (J10C) Karlie Brown MD [address] [facility] [address] [id number] [place], [place] [id number] [address] [place] [address] Allergies Active Allergy Reactions Severity Noted Date Comments Ibuprofen Hives 04/15/2014 [place] Hives 04/15/2014 Sodium Citrate (Bulk) Nausea and/or Vomiting 9 documented as of this encounter (statuses as of 09/10/2020) Medications Medication Sig Dispensed Refills Start Date End Date Status vit Take 1 Packet by 30 Each 6 08/03/2020 Active 50-bczy-nceig-dha mouth daily. 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 Encounter for IUD removal and reinsertion 01/18/2015 ASCUS on Pap smear 04/15/2014 Estimated Date of Delivery Comments Yes 04/11/2021 Based on Ultrasound, FHT: 127, Transverse Presentation, Placen ta Too early to evaulate documented as of this encounter (statuses as of 09/10/2020) Resolved Problems Problem Noted Date Resolved Date 37 weeks gestation of 12/18/2018 01/08/20 19 [place] Hick's contraction 12/12/2018 01/08/2019 Abnormal maternal glucose [...] management 01/25/2015 05/20/2018 Overview: ICD10 Diagnosis 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 provided Voucher #[id number] for [employer] . Roseann Bowens LMSW Controller Repairer And Tester Care Management C: [phone] O: [phone] [email or web address] Poonam Solomon MD - 09/10/2020 4:00 PM CDTR1 CASTLE CALL PROGRESS NOTE Suraj Fuentes [id number] 09/10/2020, 4:00 PM Notified by RN that patient is now tolerating a regular diet. Pt previously on oral antiemetics and adamantly desires to be d/c at this time. Will d/c with home medications. Precautions given, f/u withregular PNV. Discussed with Dr. Eller. Poonam Solomon MD GYNECOLOGIST PGY-1 09/10/20 documented in this encounter H&P [...] Manny Gray; Location: Labor and Delivery - [place] Past Medical History: Diagnosis Date Abnormal maternal [...] 09/10/20 0632 Allergies and drug reactions: Ibuprofen, [place], and Sodium citrate (bulk) HOME MEDICATIONS Prescriptions [...] for 42 days. 120 tablet 1 vit 91-ersv-xwzzx-dha (SELECT-OB + DHA) 29 mg iron-1 mg [...] Date/Time GLUF 68 (L) 12/12/2018 07:47 AM [id number] 124 08/03/2020 02:17 PM GLU3H 108 12/12/2018 [...] presentation at 37w - Documented LTCS at [facility] - Desires possible Hx PTD - G1 at 34w - G2 at 36w COVID-19 SCREEN: Lab Results Component Value Date/Time COVID19 Not Detected 09/10/2020 02:30 AM Antepartum course reviewed - early 1 h 124, sero negative, Rnot immune, VZVequiv, A positive/IAT negative, GBS unk, Pap ASCUS 11/27/17 - H/H, plt: 13.9 / 39.3, 180 [facility] Presentation on admission: variable - too early to eval placenta - FHT 154 bpm DISPO: Admit for IV antiemetics in the setting of hyperemesis. PO challenge in AM D/w Dr. Mason. Destinee Wiseman MD PGY-2 GYNECOLOGIST Personal Pager: [phone] 09/10/20 1:51 AM Associated attestation - Karlie Brown MD - 09/10/2020 11:01 AM CDTI personally examined the patient on 09/10/[address] Wiseman's resident note as written. I actively participated in the decision-making process. Please see the resident's note for additional details. documented in this encounter Consult Notes Destinee Wiseman MD - 09/10/2020 12:20 AM CDTAssociated Order(s): CONSULT GYNECOLOGIST TRIAGE/L&D HISTORY & PHYSICAL IDENTIFYING DATA Suraj [...] Manny Gray; Location: Labor and Delivery - [place] Past Medical History: Diagnosis Date Abnormal maternal [...] 09/10/20 0632 Allergies and drug reactions: Ibuprofen, [place], and Sodium citrate (bulk) HOME MEDICATIONS Medications [...] for 42 days. 120 tablet 1 vit 01-tfta-pqusj-dha (SELECT-OB + DHA) 29 mg iron-1 mg [...] Date/Time GLUF 68 (L) 12/12/2018 07:47 AM [id number] 124 08/03/2020 02:17 PM GLU3H 108 12/12/2018 [...] presentation at 37w - Documented LTCS at [facility] - Desires possible Hx PTD - G1 at 34w - G2 at 36w COVID-19 SCREEN: Lab Results Component Value Date/Time COVID19 Not Detected 09/10/2020 02:30 AM Antepartum course reviewed - early 1 h 124, sero negative, Rnot immune, VZVequiv, A positive/IAT negative, GBS unk, Pap ASCUS 11/27/17 - H/H, plt: 13.9 / 39.3, 180 on 09/09/20 - [facility] F[facility] - Presentation on admission: variable [...] documented in this encounter ED Notes Penelope Saey PCT - 09/09/2020 9:21 PM CDTPatient to [...] Carpio MD - 09/09/2020 7:35 PM CDT [facility] Emergency Department Note Patient Name: Suraj Fuentes Date of : 1990 29 year old female Treatment Room: 119/119 Primary Care Physician: Cornelius Fernandez Patient Escorted by: Self [9] Mode of Arrival: Personal means [1] EMS Treatment Prior to ED Arrival: POST ACUTE CARE REGISTERED NURSE treatment: IVF;Other (comment) POST ACUTE CARE REGISTERED NURSE treatment comments: Per patient she was seen [...] or recent trauma 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 Tetanus received in last 5 years: Unknown Childhood immunizations: Up-to-date Allergies: Allergies Allergen Reactions Ibuprofen Hives [place] Hives Sodium Citrate (Bulk) Nausea and/or Vomiting [...] Manny Gray; Location: Labor and Delivery - [place] Review of Systems: Review of Systems Constitutional: [...] Doppler ultrasound of the right upper quadrant. Shoe Maker images were obtained for the record. COMPARISON: [...] Calculation () 222.3 mL/min/1.73m2 HEPATIC FUNCTION PANEL (95859) (ALB,T.PRO,BILI T,BU/BC,ALT,AST,ALK PHOS) Collection Time: 09/09/20 8:03 [...] GLUCOSE, BUN, CREATININE, CA) HEPATIC FUNCTION PANEL (63040) (ALB,T.PRO,BILI T,BU/BC,ALT,AST,ALK PHOS) LIPASE URINALYSIS CONSULT GYNECOLOGIST Orders Placed This Encounter Medications NaCl 0.9% [...] and antiemetics with minimal improvement in pain. System Administration Advisor consulted. MDM: MDM Reviewed: nursing note and vitals Interpretation: labs and ultrasound Consults: GYNECOLOGIST Scoring Tools: No data recorded Diagnosis/Impression: ICD-10-CM [...] 2 tablets by mouth at bedtime. VIT 18-EEHZ-JCCEO-DHA (SELECT-OB + DHA) 29 MG IRON-1 MG [...] [facility] at this time via [facility] transport in stretcher. Respirations even and unlabored, AAOx4, NAD noted. D Nurse Note - Merna Ramos RN - 09/10/2020 3:37 AM CDTIce chips provided PO per patient request. D Nurse Note - Ada Bush RN - 09/10/2020 3:20 AM CDTPatient report called to recieving ALFONZO Jerome on floor [address] Patient updated on plan of care and verbalizes understanding. Patients VSS, RR even and unlabored, and NAD noted. [facility] tele track requested, awaiting transport to [facility]. D Nurse Note - Kristi Francis [...] to get a bed assigned in antepartum. dental director states she is speaking with CN on [...] by 2 visitors. Patient connected to bedside residential monitor. D Nurse Note - Ada Bush RN - 09/09/2020 7:44 PM CDTPatient to room from triage documented in this encounter Plan of Treatment Date Type Specialty Care Team Description 10/06/2020 Routine Visit OB Satellites Lauren Fernandez, MAINTENANCE SCHEDULER [address] [address] [phone] Name Type Priority Associated Diagnoses Date/Ti me [...] PANEL LAB Routine ONCE f or 1 (26240) Occurrences sta rting 09/10/2020 unti l 09/10/2020 [...] Nausea and vomiting, Results for this PANEL (75060) PM CDT intractability of procedure are in [...] SARS-CoV-2 Rapid ID Not Detected Not Detected [facility] LABORATORY NOW SERVICES Specimen Swab - NASOPHARYNGEAL SWAB Narrative Performed At ID NOW COVID-19 Assay is an isothermal nucleic acid [facility] SERVICES amplification test intended for the qualitative detect ion of nucleic acid from SARS-CoV-2 viral RNA in nasopharynge al (TANGIBLE PERSONAL PROPERTY APPRAISER) specimens. It is used under Emergency Use [...] testing if clinically indicated. Performing Organization Address [facility] Phone Number [facility] SERVICES CLIA: [id number] [place] [address] [place] [address] URINALYSIS (09/09/2020 11:55 PM CDT) Pathologist Sig nature APPEARANCE Clear Clear [facility] COLOR Yellow Yellow [facility] PH 7.0 4.8 - 8.0 [facility] SP GRAVITY 1.015 1.003 - 1.030 [facility] GLU U QUAL 50 mg/dL (A) Normal [facility] BLOOD Negative Negative [facility] KETONES 80 mg/dL (A) Negative [facility] PROTEIN Negative Negative [facility] UROBILIN Normal Normal [facility] BILIRUBIN Negative Negative [facility] NITRITE Negative Negative [facility] LEUK HO Negative Negative [facility] RBC/HPF 1 0 - 3 HPF [facility] WBC/HPF 2 0 - 5 HPF [facility] BACTERIA Negative Negative [facility] MUCOUS Slight (A) Negative LPF [facility] SQ EPITH 5 (H) <=2 HPF [facility] Specimen Urine - URINE, CLEAN CATCH Performing Organization Address [facility] Phone Number [facility] CLIA: [id number] [place] [address] [place] [address] [place] ABDOMEN LIMITED (09/09/2020 9:45 PM CDT) [...] er ultrasound of the right upper quadrant. Shoe Maker images were obt ained for the record. [...] er ultrasound of the right upper quadrant. Shoe Maker images were obt ained for the record. [...] LIPASE 356 (H) 0 - 220 U/L [facility] SERVICES Specimen Blood - VENOUS Performing Organization Address [facility]/Zipcode Phone Number [facility] CLIA: [id number] [place], [place] [address] [address] [place] [address] HEPATIC FUNCTION PANEL (39674) (ALB,T.PRO,BILI T,BU/BC,ALT,AST,ALK PHOS) (09/09/2020 8:03 PM CDT) Pathologist Sig nature TOTAL BILI 0.8 0.1 - 1.1 mg/dL [facility] BILI UNCON 0.9 0.1 - 1.1 mg/dL [facility] BILI CONJ 0.0 0.0 - 0.3 mg/dL [facility] T PROTEIN 6.8 6.3 - 8.2 g/dL [facility] ALBUMIN 4.1 3.5 - 5.0 g/dL [facility] SERVICES ALK PHOS 49 34 - 122 U/L [facility] ALTv 52 (H) 5 - 35 U/L [facility] SERVICES AST(SGOT) 43 (H) 13 - 40 U/L [facility] SERVICES Specimen Blood - VENOUS Performing Organization Address [facility]/Zipcode Phone Number [facility] SERVICES CLIA: [id number] [place], [place] [id number] [address] [place] [address] BASIC METABOLIC PANEL (NA, K, CL, CO2, GLUCOSE, BUN, CREATININE, CA) (09/09/2020 8:03 PM CDT) NA 135 135 - 145 [facility] LABORATORY mmol/L SERVICES K 4.2Comment: 3.5 - 5.0 [facility] Slight hemolysis mmol/L SERVICES CL 103 98 - 108 [facility] mmol/L SERVICES CO2 TOTAL 21 (L) 23 - 31 [facility] mmol/L SERVICES AGAP 11 2 - 16 [facility] SERVICES BUN 2 (L)Comment: 7 - 23 mg/dL [facility] LABORATORY Slight hemolysis SERVICES GLUCOSE 90 70 - 110 [facility] mg/dL SERVICES CREATININE 0.41 (L) 0.50 - 1.04 [facility] LABOR[facility] mg/dL SERVICES CALCIUM 9.1 8.6 - 10.6 [facility]OR[facility] mg/dL SERVICES eGFR Calculation 183.4 mL/min/1.73m2 [facility] LABORATORY (Non- SERVICES [place]) eGFR Calculation 222.3 mL/min/1.73m2 [facility] LABORATORY () SERVICES Specimen Blood - VENOUS Narrative Performed At Association of Glomerular Filtration Rate (GFR) and St aging [facility] SERVICES of Kidney Disease* + + +------- ------ + | GFR (mL/min/1.73 m2) | With Kidney Damage | [facility] Kidney Damage + + +------- ------ [...] . Performing Organization Address City/State/Zipcode Phone Number [facility] SERVICES CLIA: [id number] [place] [address] [place] [address] CBC WITH DIFF (09/09/2020 8:03 PM CDT) Pathologist Sig nature WBC 8.85 4.30 - 11.10 [facility] LABORATORY 10*3/L SERVICES RBC 4.48 3.93 - 5.25 [facility] LABOR[facility]ORY 10*6/L SERVICES HGB 13.9 11.6 - 15.0 [facility] g/dL SERVICES HCT 39.3 [...] VENOUS Performing Organization Address City/State/Zipcode Phone Number [facility] SERVICES CLIA: [id number] [place] [address] [place] [address] documented in this encounter Visit Diagnoses Diagnosis [...] Address T e Group Dates ASIA BETANCOURT [id number] 2018-Anupama HID[place] Medic [place] [address] MANAGED MED[place]ID [place] documented as of this encounter Advance Directives Type Date Recorded Patient Shoe Maker Explanati on Advance Directives and Living Will Power of Pantry Goods Maker Name Relationship Healthcare Agent Relationship Co mmunication Floyd Holloway Health Care Agent (Work) Preet Coffey Other Health Care Agent (Work) [place] Nicolegamal Spouse [facility] [phone] Agent (Mobile) "
[2020-09-27] MEDS ORDERED: NA CHLORIDE 0.9% 100 ML IV ONE (16:21)
[2020-09-27] MEDS ORDERED: PROMETHAZINE INJ 25 MG/ML AMP ONE ×2 (16:21→17:13)
[2020-09-27] MEDS ORDERED: MORPHINE 4 MG/ML SYR ONE (16:21)
[2020-09-27] MEDS ORDERED: NA CHLORIDE 0.9% 1,000 ML ONE (16:21)
--- NOTE | 2020-09-27 16:47 | EDPHYS ---
Physician Documentation [facility] Name: Suraj Fuentes Age: 29 yrs Sex: Female : 1990 Arrival Date: 09/27/2020 Time: 13:56 Bed 13 Private MD: ED Physician Zane Herring HPI: 09/27 16:29 This 29 yrs old Female presents to ER via Wheelchair with complaints of rn Abdominal Cramping - 11 wks preg, Nausea/Vomiting. 16:29 The patient presents to the emergency department with nausea and vomiting. The rn estimated gestational age is 11 weeks. course: care: private OB physician. Associated signs and symptoms: Pertinent positives: nausea, vomiting. The patient has experienced similar episodes in the past. Reports bad , constantly throwing up, constant morning sickness, has been seen multiple times for this here and at [facility]. Requesting morphine and phenergan as that is the only thing that helps. No vaginal discharge, no bleeding, has had confirmed IUP by ultrasound. . Historical: - Allergies: 14:12 Ibuprofen; ll1 14:12 ORANGES; ll1 - PMHx: 14:12 hyperemesis gravidarum; Pancreatitis; ll1 - PSHx: 14:12 ; Appendectomy; ll1 - Immunization history:: Flu vaccine is not up to date. - Social history:: Smoking status: Patient denies any tobacco usage or history of. - Family history:: not pertinent. ROS: 16:29 Constitutional: Negative for fever, chills, and weight loss, Eyes: Negative for injury, rn pain, redness, and discharge, Cardiovascular: Negative for chest pain, palpitations, and edema, Respiratory: Negative for shortness of breath, cough, wheezing, and pleuritic chest pain, Abdomen/GI: Negative for diarrhea, and constipation, Back: Negative for injury and pain, : Negative for injury, bleeding, discharge, and swelling, MS/Extremity: Negative for injury and deformity, Neuro: Negative for headache, weakness, numbness, tingling, and seizure. Exam: 16:29 Constitutional: This is a well developed, well nourished patient who is awake, alert, rn throwing up into emesis bag Head/Face: Normocephalic, atraumatic. ENT: dry MM Cardiovascular: tachycardic, regular Respiratory: No increased work of breathing, no retractions or nasal flaring. Abdomen/GI: Sof,t non-distended Skin: Warm, dry MS/ Extremity: Pulses equal, no cyanosis. Neurovascular intact. Full, normal range of motion. Equal circumference. Neuro: Awake and alert, GCS 15 Vital Signs: 14:11 BP 105 / 68; Pulse 101; Resp 17; Temp 97.8; Pulse Ox 99% ; Weight 79.38 kg; Height 5 ll1 ft. 3 in. (160.02 cm); Pain 9/10; 17:00 BP 104 / 70; Pulse 99; Resp 15; Pulse Ox 100% ; jl7 14:11 Body Mass Index 31.00 (79.38 kg, 160.02 cm) ll1 MDM: 15:51 Patient medically screened. cp 16:45 Differential diagnosis: hyperemesis, dehydration. Data reviewed: vital signs, nurses rn notes, old medical records, and as a result, I will discharge patient. Counseling: I had a detailed discussion with the patient and/or guardian regarding: the historical points, exam findings, and any diagnostic results supporting the discharge/admit diagnosis, the need for outpatient follow up, to return to the emergency department if symptoms worsen or persist or if there are any questions or concerns that arise at home. Response to treatment: the patient's symptoms have markedly improved after treatment, and as a result, I will discharge patient. Special discussion: I discussed with the patient/guardian in detail that at this point there is no indication for admission to the hospital. It is understood, however, that if the symptoms persist or worsen the patient needs to return immediately for re-evaluation. Based on the history and exam findings, there is no indication for further emergent testing or inpatient evaluation. I discussed with the patient/guardian the need to see the OB Gyne specialist for further evaluation of the symptoms. ED course: Pt improved, sleeping, wakes up during reeval, requests another dose of phenergan before she leaves, will give phenergan and GI cocktail, then dc home with OB f/u. . 09/27 16:04 Order name: IV Start; Complete Time: 16:23 rn Administered Medications: 16:15 Drug: NS 0.9% 1000 ml Route: IV; Rate: 1000 ml; Site: right hand; jl7 17:20 Follow up: Response: No adverse reaction; IV Status: Completed infusion; IV Intake: jl7 1000ml 16:15 Drug: Phenergan 12.5 mg Route: IVP; Site: right hand; jl7 17:00 Follow up: Response: No adverse reaction; Nausea is decreased jl7 16:18 Drug: morphine 4 mg Route: IVP; Site: right hand; jl7 16:45 Follow up: Response: No adverse reaction; Pain is decreased jl7 17:10 Drug: Phenergan 12.5 mg Route: IVP; Site: right hand; aa5 17:31 Follow up: Response: No adverse reaction; Nausea is decreased jl7 17:25 Drug: GI Cocktail without - (Maalox Suspension 30 ml, Lidocaine Liquid 2 % 15 jl7 ml) Route: PO; 17:30 Follow up: Response: Medication administered at discharge. jl7 Disposition: 09/27/20 16:47 Discharged to Home. Impression: Hyperemesis gravidarum with metabolic disturbance, Dehydration. - Condition is Stable. - Discharge Instructions: Dehydration, Adult, Hyperemesis Gravidarum. - Medication Reconciliation Form, Thank You Letter, Antibiotic Education, Prescription Opioid Use form. - Follow up: Private Physician; When: As needed; Reason: Recheck today's complaints, Re-evaluation by your physician. - Problem is new. - Symptoms have improved. Signatures: Zane Herring MD MD rn Calderon, Audri RN RN aa5 Pancho Pryor PA PA cp Leal, Jahala, RN RN jl7 Bill Hudson RN RN ll1 Corrections: (The following items were deleted from the chart) 17:35 16:47 09/27/2020 16:47 Discharged to Home. Impression: Hyperemesis gravidarum with jl7 metabolic disturbance; Dehydration. Condition is Stable. Forms are Medication Reconciliation Form, Thank You Letter, Antibiotic Education, Prescription Opioid Use. Follow up: Private Physician; When: As needed; Reason: Recheck today's complaints, Re-evaluation by your physician. Problem is new. Symptoms have improved. rn
--- NOTE | 2020-09-27 16:47 | ER ---
Nurse's Notes [facility] Name: Suraj Fuentes Age: 29 yrs Sex: Female : 1990 Arrival Date: 09/27/2020 Time: 13:56 Bed 13 Private MD: Diagnosis: Hyperemesis gravidarum with metabolic disturbance;Dehydration Presentation: 09/27 14:11 Chief complaint: Patient states: N/V with abdominal pain for 1 day. Coronavirus screen: ll1 Client denies travel out of the [place] in the last 14 days. At this time, the client does not indicate any symptoms associated with coronavirus-19. Ebola Screen: Patient denies travel to an Ebola-affected area in the 21 days before illness onset. Initial Sepsis Screen: Does the patient meet any 2 criteria? HR > 90 bpm. No. Patient's initial sepsis screen is negative. Does the patient have a suspected source of infection? Yes: Acute abdominal pain Other: n/v. Risk Assessment: Do you want to hurt yourself or someone else? Patient reports no desire to harm self or others. Onset of symptoms was September 27, 2020. 14:11 Method Of Arrival: Wheelchair ll1 14:11 Acuity: SHAW 3 ll1 Historical: - Allergies: 14:12 Ibuprofen; ll1 14:12 ORANGES; ll1 - PMHx: 14:12 hyperemesis gravidarum; Pancreatitis; ll1 - PSHx: 14:12 ; Appendectomy; ll1 - Immunization history:: Flu vaccine is not up to date. - Social history:: Smoking status: Patient denies any tobacco usage or history of. - Family history:: not pertinent. Screenin:00 Abuse screen: Denies threats or abuse. Denies injuries from another. Nutritional jl7 screening: No deficits noted. Tuberculosis screening: No symptoms or risk factors identified. Fall Risk IV access (20 points). Assessment: 16:00 General: Appears in no apparent distress. uncomfortable, Behavior is cooperative, jl7 crying. Pain: Complains of pain in abdomen. Neuro: Level of Consciousness is awake, alert, obeys commands. Cardiovascular: Patient's skin is warm and dry. Respiratory: Airway is patent Respiratory effort is even, unlabored, Respiratory pattern is regular, symmetrical. GI: Reports nausea, vomiting. Derm: Skin is pink, warm \T\ dry. 17:00 Reassessment: Patient appears in no apparent distress at this time. No changes from jl7 previously documented assessment. Patient and/or family updated on plan of care and expected duration. Pain level reassessed. Patient is alert, oriented x 3, equal unlabored respirations, skin warm/dry/pink. Vital Signs: 14:11 BP 105 / 68; Pulse 101; Resp 17; Temp 97.8; Pulse Ox 99% ; Weight 79.38 kg; Height 5 ll1 ft. 3 in. (160.02 cm); Pain 9/10; 17:00 BP 104 / 70; Pulse 99; Resp 15; Pulse Ox 100% ; jl7 14:11 Body Mass Index 31.00 (79.38 kg, 160.02 cm) ll1 ED Course: 13:56 Patient arrived in ED. as 14:12 Triage completed. ll1 14:12 Arm band placed on. ll1 15:40 Pancho Pryor PA is PHCP. cp 15:40 Zane Herring MD is Attending Physician. cp 15:59 Toni Bryant RN is Primary Nurse. jl7 16:00 Patient has correct armband on for positive identification. Placed in gown. Bed in low jl7 position. Call light in reach. Side rails up X 1. Pulse ox on. NIBP on. Warm blanket given. 16:00 Inserted saline lock: 20 gauge in right hand, using aseptic technique. jl7 17:34 No provider procedures requiring assistance completed. IV discontinued, intact, jl7 bleeding controlled, No redness/swelling at site. Pressure dressing applied. Administered Medications: 16:15 Drug: NS 0.9% 1000 ml Route: IV; Rate: 1000 ml; Site: right hand; jl7 17:20 Follow up: Response: No adverse reaction; IV Status: Completed infusion; IV Intake: jl7 1000ml 16:15 Drug: Phenergan 12.5 mg Route: IVP; Site: right hand; jl7 17:00 Follow up: Response: No adverse reaction; Nausea is decreased jl7 16:18 Drug: morphine 4 mg Route: IVP; Site: right hand; jl7 16:45 Follow up: Response: No adverse reaction; Pain is decreased jl7 17:10 Drug: Phenergan 12.5 mg Route: IVP; Site: right hand; aa5 17:31 Follow up: Response: No adverse reaction; Nausea is decreased jl7 17:25 Drug: GI Cocktail without - (Maalox Suspension 30 ml, Lidocaine Liquid 2 % 15 jl7 ml) Route: PO; 17:30 Follow up: Response: Medication administered at discharge. jl7 Intake: 17:20 IV: 1000ml; Total: 1000ml. jl7 Outcome: 16:47 Discharge ordered by . rn 17:34 Discharged to home ambulatory, with family. jl7 17:34 Condition: stable 17:34 Discharge instructions given to patient, Instructed on discharge instructions, follow up and referral plans. Demonstrated understanding of instructions, follow-up care. 17:35 Patient left the ED. jl7 Signatures: Jinny Rendon Roman, MD MD rn Heather Cummins RN RN aa5 Pancho Pryor PA PA cp Leal, Jahala, RN RN jl7 Bill Hudson RN RN ll1 Corrections: (The following items were deleted from the chart) 17:21 17:10 Phenergan 12.5 mg IVP in right antecubital aa5 aa5
[2020-09-27] MEDS ORDERED: MAGNES/ALUMIN/SIMET 30ML UCUP ONE (17:13)
[2020-09-27] MEDS ORDERED: LIDOCAINE VISCOUS 2% SOLN 15 ML UDC ONE (17:13)
[2020-09-27 18:42] VITALS: TEMP 97.8
[2020-09-27 18:45] VITALS: BP 104/70; O2SAT 100
== END 2020-09-27 17:35 | disposition home or self-care (01) ==
LOC: ER 13:54
DX: O21.1 Hyperemesis gravidarum with metabolic disturbance (principal); Z3A.11 11 weeks gestation of pregnancy; Z88.6 Allergy status to analgesic agent; Z91.018 Allergy to other foods
CPT/HCPCS: 96361; 96375; 96374; 99283; J2550 ×2; J7030

== ENCOUNTER 2020-10-02 11:37 | Emergency (ER) | payer MEDICAID ==
--- OUTSIDE RECORDS SUMMARY | 2020-10-02 11:40 | XMS REPORT | Continuity of Care Document ---
:1990 Author Organization [facility] t Address [address] [place] [place] [address] Care Team Providers Name Role Phone Doctor Unassigned, Name Attending Clinician Unavailable Shirin FRANKLIN, Keerthi Attending Clinician Kevin FRANKLIN Attending Clinician Akinsisushma WHCNP, C Attending Clinician Jim SPINNER FRAME, R Attending Clinician Kevin FRANKLIN Admitting Clinician [...] ID 2020-09-20 2020-09-20 Orders Doctor EDUARDO [id number] 00:00:00 00:00:00 Only UnassignedSRAVAN [id number] Lester [facility] [id number] 2020-09-09 2020-09-10 [facility] Marcelo Carpio [id number] 19:39:00 16:45:00 Encounter Karlie Brown [id number] [facility] [id number] 2020-09-09 2020-09-09 Telephone Vitaliy [facility] [id number] 00:00:00 00:00:00 Graciela C DRY MILL OPERATOR [id number] REGIONAL [id number] MATERNAL [id number] & CHILD 107 [facility] 2020-09-09 2020-09-09 [facility] [id number] 00:00:00 00:00:00 Roshunda R DRY MILL OPERATOR [id number] [facility] [id number] MATERNAL [id number] & CHILD 107 [facility] 2020-09-08 2020-09-08 Routine [facility] [id number] 10:23:36 11:14:26 Roshunda R DRY MILL OPERATOR [id number] Visit REGIONAL [id number] MATERNAL [id number] & CHILD 107 [facility] 2020-09-08 2020-09-08 [facility] [id number] 00:00:00 00:00:00 Roshunda R DRY MILL OPERATOR [id number] [facility] [id number] MATERNAL [id number] & CHILD 107 [facility] 2020-09-07 2020-09-07 [facility] [id number] 00:00:00 00:00:00 Roshunda R DRY MILL OPERATOR [id number] REGIONAL [id number] MATERNAL [id number] & CHILD 107 [facility] Results This patient has no known results.
--- OUTSIDE RECORDS SUMMARY | 2020-10-02 11:43 | XMS REPORT | Summary of Care ---
:1990 Author Organization [facility] Address [address] [place] [address] Care Team Providers Name Role Phone Manjit E Insurance Hmo Lauren Fernandez [facility] Primary Care Provider Reason for Visit Reason Comments Assessment wanting to terminate pregnan cy Encounter Details Date Type Department Care Team Description 08/26/2020 Telephone [facility]- Cornelius Fernandez, As sessment (wanting to [facility] terminate ) [address] [facility] [address] [place] [address] [place], [place] [phone] Allergies Active Allergy Reactions Severity Noted Date Comments Ibuprofen Hives 04/15/2014 [place] Hives 04/15/2014 Sodium Citrate (Bulk) Nausea and/or Vomiting 9 documented as of this encounter (statuses as of 08/26/2020) Medications Medication Sig Dispensed Refills Start Date End Date Status ondansetron HCl Take by mouth. 0 Active (ZOFRAN ORAL) vit Take 1 Packet by 30 Each 6 08/03/2020 Active 38-trli-urhim-dha mouth daily. 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 Visiting Teacher Utility Encounter for IUD removal and [...] management 01/25/2015 05/20/2018 Overview: ICD10 Diagnosis Term Visiting Teacher Utility Breast tenderness in female 01/25/2015 05/20/2018 Not immune to rubella 04/16/2014 06/04/2016 Overview: ICD10 Diagnosis Term Visiting Teacher Utility documented as of this encounter [...] 08/31/2020 Routine Visit [facility] Lauren Fernandez, [employer] TRUCK DRIVER [address] [place] [id number] [phone] Health Maintenance Due Date Last Done Comments [...] Address T ype Group Dates ASIA BETANCOURT [id number] 2018-Anupama [address] [place] [id number] [place]NA[place] MED[place] documented as of this encounter Advance Directives Type Date Recorded Patient Alarm Investigator Explanati on Advance Directives and Living Will Power of Recorder Of Deeds Name Relationship Healthcare Agent Relationship Co mmunication Floyd Brown Father Health Care Agent Preet Coffey Other Health Care Agent [phone] (Mobile) [place] Fuentes Spouse [facility] Health Care Agent (Mobile)
--- OUTSIDE RECORDS SUMMARY | 2020-10-02 11:43 | XMS REPORT | Summary of Care ---
:1990 Author Organization [facility] - Health Address [address] [place] [address] Care Team Providers Name Role Phone Gamal Saravia Insurance Hmo Lauren Fernandez Primary Care Provider Reason for Referral (Routine) Status Reason Specialty Diagnoses / Referred By Referred To Procedures Contact Contact New Request OG-OBSTETRICS & Diagnoses Nausea and vomiting during Aufderheide, Leann GYNECOLOGY Procedures Discharge Follow-Up: Specialty Service OG-OBSTETRICS & GYNECOLOGY; 3-5 Days MD Merna [address] [place] [address]. [place] [address] Reason for Visit Reason Comments Abdominal Pain Vomiting Auth/Cert Status Reason Specialty Diagnoses / Referred By Referred To Procedures Contact Contact Emergency Medicine Ed-Raquel rgency Dept [address] [place] [phone] Fax: Encounter Details Date Type Department Care Team Description 08/28/2020 - Emergency [facility] Monika Allen MD [address] [place] [phone] Abdominal pain during in first trimester (Primary Dx); 08/29/2020 Department Anthonyerjessi, Leann Bauman MD [address] [place] [phone] Nausea and vomiting during [address] [place] [phone] Allergies Active Allergy Reactions Severity Noted Date Comments Ibuprofen Hives 04/15/2014 [place] Hives 04/15/2014 Sodium Citrate (Bulk) Nausea and/or Vomiting 9 documented as of this encounter (statuses as of 08/29/2020) Medications Medication Sig Dispensed Refills Start Date End Date Status ondansetron HCl Take by mouth. 0 Active (ZOFRAN ORAL) vit Take 1 Packet by 30 Each 6 08/03/2020 Active 05-epny-asrfw-dha mouth daily. 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 Paper Hanger Utility Encounter for IUD removal and reinsertion [...] management 01/25/2015 05/20/2018 Overview: ICD10 Diagnosis Term Paper Hanger Utility Breast tenderness in female 01/25/2015 05/20/2018 Not immune to rubella 04/16/2014 06/04/2016 Overview: ICD10 Diagnosis Term Paper Hanger Utility documented as of this encounter (statuses [...] IF YOU WISH TO FOLLOW-UP WITHIN THE [facility], MAY TRY THESE OPTIONS (CLINIC APPOINTMENTS AVAILABLE ON [id number] BASIS): 1. SCHEDULE AN APPOINTMENT ONLINE AT [email or web address] 2. OR CALL THE [facility] ACCESS CENTER AT OR 3. OR CALL YOUR [facility] PHYSICIAN'S OFFICE DIRECTLY IF YOU ARE ALREADY AN ESTABLISHED [facility] PATIENT. RETURN TO ER FOR WORSENING OF SYMPTOMS. AttachmentsThe following attachments cannot be sent through Care Everywhere. : Your First Trimester Changes (Lithuanian)Severe Morning Sickness (Hyperemesis Gravidarum) (Lithuanian)documented in this encounter ED Notes Arsalan Salzaar RN - 08/28/2020 8:56 PM ALMATSuraj Luly [...] site, catheter intact. [facility] accompanied by visitors x2, in possession [...] - 08/28/2020 11:47 PM CDT[facility] Nurse Note - Ada [...] cough, SOB. . Patient was seen in [place] for same complaint, patient's s/o states "they [...] 08/31/2020 Routine Visit OB Satellites Lauren Fernandez, SISAL PICKER [address] [address] [phone] Health Maintenance Due Date Last Done Comments [...] Abdominal pain Re sults for this PANEL (87074) CD[facility] (ALB,T.PRO,BILI first trimester the resul ts T,BU/BC,ALT,AST,ALK section. PHOS) documented in this encounter Results Urinalysis (08/29/2020 12:26 AM CDT) Pathologist Sig nature APPEARANCE Clear Clear [facility] COLOR Trudi (A) Yellow [facility] PH 7.0 4.8 - 8.0 [facility] SP GRAVITY 1.030 1.003 - 1.030 [facility] GLU U QUAL Normal Normal [facility] BLOOD Negative Negative [facility] KETONES 80 mg/dL (A) Negative [facility] PROTEIN 30 mg/dL (A) Negative [facility] UROBILIN 2.0 mg/dL (A) Normal [facility] BILIRUBIN Negative Negative [facility] NITRITE Negative Negative [facility] LEUK HO Negative Negative [facility] RBC/HPF 3 0 - 3 HPF [facility] WBC/HPF 3 0 - 5 HPF [facility] BACTERIA Negative Negative [facility] MUCOUS Marked (A) Negative LPF [facility] SQ EPITH 4 (H) <=2 HPF [facility] Specimen Urine - URINE, CLEAN CATCH Performing Organization Address City/State/Zipcode Phone Number [facility] CLIA: [id number] [place], [place] [address] [address] [place], [place] [address]vd TOTAL BHCG (QUANTITATIVE) (08/28/2020 10:08 PM CDT) Pathologist Sig nature BETA HCG 140,720.00 Non- female [facility] and male patients: SERVICES <5 mIU/mL Specimen Blood - VENOUS Narrative Performed At [facility] Gestational Age Rang e (mIU/mL) 1-10 Weeks 4 [phone] 11-15 Weeks 11 [phone] 16-22 Weeks 74 [phone] 23-40 Weeks 15 [phone] Biotin has been reported to cause a negative bias, int erpret results relative to patient's use of biotin. Performing Organization Address City/[facility] Cent[facility] Phone Number [facility] CLIA: [id number] [place] [address] [place] [address] Hepatic Function Panel (ALB, T.PRO, BILI T, BU/BC, ALT, AST, ALK PHOS) (08/28/2020 10:08 PM CDT) Pathologist Sig nature TOTAL BILI 0.7 0.1 - 1.1 mg/dL [facility] BILI UNCON 0.9 0.1 - 1.1 mg/dL [facility] BILI CONJ 0.0 0.0 - 0.3 mg/dL [facility] T PROTEIN 6.8 6.3 - 8.2 g/dL [facility] ALBUMIN 4.1 3.5 - 5.0 g/dL [facility] ALK PHOS 56 34 - 122 U/L [facility] ALTv 21 5 - 35 U/L [facility] AST(SGOT) 20 13 - 40 U/L [facility] Specimen Blood - VENOUS Performing Organization Address City/[facility]/Zipcode Phone Number [facility] CLIA: [id number] [place] [address] [place] [address] Basic Metabolic Panel (NA, K, CL, CO2, GLUCOSE, BUN, CREATININE, CA) (08/28/2020 10:08 PM CDT) NA 139 135 - 145 [facility] mmol/L SERVICES K 3.4 (L) 3.5 - 5.0 [facility] mmol/L SERVICES CL 108 98 - 108 mmol/L [facility] CO2 TOTAL 21 (L) 23 - 31 mmol/L [facility] AGAP 10 2 - 16 [facility] BUN 7 7 - 23 mg/dL [facility] GLUCOSE 99 70 - 110 mg/dL [facility] CREATININE 0.49 (L) 0.50 - 1.04 [facility] mg/dL SERVICES CALCIUM 9.0 8.6 - 10.6 [facility] mg/dL SERVICES eGFR Calculation 149.3 mL/min/1.73m2 [facility] (Non- SERVICES Burkinan) eGFR Calculation 181.0 mL/min/1.73m2 [facility] () SERVICES Specimen Blood - VENOUS Narrative Performed At Association of Glomerular Filtration Rate (GFR) and St aging [facility] SERVICES of Kidney [...] . Performing Organization Address City/State/Zipcode Phone Number [facility] CLIA: [id number] [place] [address] [place] [address] CBC with Differential (08/28/2020 10:08 PM CDT) Pathologist Sig nature WBC 8.57 4.30 - 11.10 [facility] 10*3/L SERVICES RBC 4.62 3.93 - 5.25 [facility] 10*6/L SERVICES HGB 14.5 11.6 - 15.0 [facility] g/dL SERVICES HCT 40.7 35.7 - 45.2 % [facility] MCV 88.1 80.6 - 95.5 fL [facility] MCH 31.4 25.9 - 32.8 pg [facility] MCHC 35.6 (H) 31.6 - 35.1 [facility] g/dL SERVICES RDW-SD 38.5 (L) 39.0 - 49.9 fL [facility] RDW-CV 12.0 12.0 - 15.5 % [facility] PLT 187 166 - 358 [facility] 10*3/L SERVICES MPV 9.8 9.5 - 12.9 fL [facility] NRBC/100 WBC 0.0 0.0 - [...] VENOUS Performing Organization Address City/State/Zipcode Phone Number [facility] CLIA: [id number] [place] [address] [place] [address] documented in this encounter Visit Diagnoses Diagnosis [...] T [facility] Dates ASIA BETANCOURT [id number] 2018-Anupama [place] BOX Medic [place] [phone] MANAGED MEDICAID [place] documented as of this encounter Advance Directives Type Date Recorded 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
--- OUTSIDE RECORDS SUMMARY | 2020-10-02 11:44 | XMS REPORT | Summary of Care ---
:1990 Author Organization [facility] Address [address] [place] [address] Care Team Providers Name Role Phone Gamal Saravia Insurance Hmo Lauren Fernandez SUPERVISORY FORESTER Primary Care Provider Reason for Visit Reason Comments Assessment vomit Encounter Details Date Type Department Care Team Description 09/06/2020 Telephone [facility]- Cornelius Fernandez, As sessment (vomit) [facility] [address] [facility] [address] [place] [address] [place] [address] [phone] Allergies Active Allergy Reactions Severity Noted Date Comments Ibuprofen Hives 04/15/2014 [place] Hives 04/15/2014 Sodium Citrate (Bulk) Nausea and/or Vomiting 9 documented as of this encounter (statuses as of 09/06/2020) Medications Medication Sig Dispensed Refills Start End Date Status Date vit Take 1 Packet by 30 Each 6 Active 62-qixv-yuxrl-dha mouth daily. 0 (SELECT-OB + DHA) 29 [...] in 01/25/2015 Overview: ICD10 Diagnosis Term Management Recruiter Utility Encounter for IUD removal and reinsertion 01/18/2015 ASCUS on Pap smear 04/15/2014 Estimated Date of Delivery Comments Yes 04/11/2021 Based on Ultrasound, FHT: 127, Transverse Presentation, Placen ta Too early to evaulate documented as of this encounter (statuses as of 09/06/2020) Resolved Problems Problem Noted Date Resolved Date 37 weeks gestation of 12/18/2018 01/08/20 19 Russell Hick's contraction 12/12/2018 01/08/2019 Abnormal maternal glucose [...] 01/25/2015 05/20/2018 Overview: ICD10 Diagnosis Term Management Recruiter Utility Breast tenderness in female 01/25/2015 05/20/2018 Not immune to rubella 04/16/2014 06/04/2016 Overview: ICD10 Diagnosis Term Management Recruiter Utility documented as of this encounter [...] old female Patient stated she went to [facility] 08/28/20 for N/V and has received fluids [...] has been loosing weight , please call [phone] (home) documented in this encounter Plan of Treatment Date Type Specialty Care Team Description 09/08/2020 Routine Visit OB Satellites Lauren Fernandez, SUPERVISORY FORESTER [address] [id number] [phone] Health Maintenance Due Date Last Done Comments [...] Address T e Group Dates ASIA BETANCOURT [id number] 2018-Anupama Camacho O BOX Medic [place] [phone] MANA[place]ED MED[place] documented as of this encounter Advance Directives Type Date Recorded 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
--- OUTSIDE RECORDS SUMMARY | 2020-10-02 11:44 | XMS REPORT | Summary of Care ---
:1990 Author Organization [facility] Address [address] [place] [address] Care Team Providers Name Role Phone Gamal Saravia Insurance Hmo Lauren Fernandez COMMISSARY REPRESENTATIVE Primary Care Provider Reason for Visit Reason Comments Assessment vomit Encounter Details Date Type Department Care Team Description 09/06/2020 Telephone [facility]- Cornelius Fernandez, As sessment (vomit) [facility] [address] [facility] [address] [place] [address] [place] [address] [phone] Allergies Active Allergy Reactions Severity Noted Date Comments Ibuprofen Hives 04/15/2014 [place] Hives 04/15/2014 Sodium Citrate (Bulk) Nausea and/or Vomiting 9 documented as of this encounter (statuses as of 09/06/2020) Medications Medication Sig Dispensed Refills Start Date End Date Status vit Take 1 Packet by 30 Each 6 08/03/2020 Active 12-shjr-ivuel-dha mouth daily. 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 Blood Bank Laboratory Technologist Utility Encounter for IUD removal and reinsertion [...] management 01/25/2015 05/20/2018 Overview: ICD10 Diagnosis Term Blood Bank Laboratory Technologist Utility Breast tenderness in female 01/25/2015 05/20/2018 Not immune to rubella 04/16/2014 06/04/2016 Overview: ICD10 Diagnosis Term Blood Bank Laboratory Technologist Utility documented as of this encounter (statuses as of 09/06/2020) Immunizations Name Administration Dates Next Due HPV9 06/04/2016 MMR 12/20/2018 (Deferred: - not available f [facility]) TDAP 04/06/2015 TDAP (ADACEL) [...] [facility] 08/28/20 for N/V and has received fluids [...] has been loosing weight , please call [phone] (home) documented in this encounter Plan of Treatment Date Type Specialty Care Team Description 09/08/2020 Routine Visit OB Satellites Lauren Fernandez FNP [address] [address] [phone] Health Maintenance Due Date Last Done Comments [...] Address T e Group Dates ASIA BETANCOURT [id number] 2018-Anupama P O BOX Medic [place] [phone] MA[place]GED MEDICA[place] documented as of this encounter Advance Directives Type Date Recorded 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
--- OUTSIDE RECORDS SUMMARY | 2020-10-02 11:44 | XMS REPORT | Summary of Care ---
:1990 Author Organization [facility] Address [address] [place] [address] Care Team Providers Name Role Phone Gamal Saravia Insurance Hmo Lauren Fernandez MACHINE DRILLER Primary Care Provider Reason for Visit Reason Comments Assessment vomit Encounter Details Date Type Department Care Team Description 09/06/2020 Telephone [facility]- Cornelius Fernandez, As sessment (vomit) [facility] [address] [facility] [place] [address] [place] [address] [place] [address] [phone] Allergies Active Allergy Reactions Severity Noted Date Comments Ibuprofen Hives 04/15/2014 [place] Hives 04/15/2014 Sodium Citrate (Bulk) Nausea and/or Vomiting 9 documented as of this encounter (statuses as of 09/06/2020) Medications Medication Sig Dispensed Refills Start Date End Date Status vit Take 1 Packet by 30 Each 6 08/03/2020 Active 67-jvnn-qccsp-dha mouth daily. (SELECT-OB + DHA) 29 mg [...] in 01/25/2015 Overview: ICD10 Diagnosis Term Director Wholesale Utility Encounter for IUD removal and reinsertion [...] 01/25/2015 05/20/2018 Overview: ICD10 Diagnosis Term Director Wholesale Utility Breast tenderness in female 01/25/2015 05/20/2018 Not immune to rubella 04/16/2014 06/04/2016 Overview: ICD10 Diagnosis Term Director Wholesale Utility documented as of this encounter (statuses [...] old female Patient stated she went to [facility] 08/28/20 for N/V and has [...] has been loosing weight , please call [phone] (home) documented in this encounter Plan of Treatment Date Type Specialty Care Team Description 09/08/2020 Routine Visit OB Satellites Lauren Fernandez FNP [address] [address] [phone] Health Maintenance Due Date Last Done Comments [...] Address T e Group Dates ASIA BETANCOURT [id number] 2018-Anupama P O BOX Medic [place] [phone] MA[place] MED[place] documented as of this encounter Advance Directives Type Date Recorded Patient Phthalic Acid Purifier Explanati on Advance Directives and Living Will Power of Acting Instructor Name Relationship Healthcare Agent Relationship Co mmunication Floyd Brown Father Health Care Agent Preet Coffey Other Health Care Agent [place] Fuentes Spouse [facility] Health Care Agent (Mobile)
--- OUTSIDE RECORDS SUMMARY | 2020-10-02 11:44 | XMS REPORT | Summary of Care ---
:1990 Author Organization [facility] - [facility] Address [address] [place] [address] Care Team Providers Name Role Phone Gamal Saravia Insurance Hmo Lauren Fernandez Primary Care Provider Reason for Referral (Routine) Status Reason Specialty Diagnoses / Referred By Referred To Procedures Contact Contact New Request Diagnoses Hyperemesis gravidarum Marisel Galvan, Procedures Discharge Follow-Up: Ticker Maintainer Lorena FRANKLIN [address] [place], [place] [id number] Reason for Visit Auth/Cert Status Reason Specialty Diagnoses / Procedures Referred By Lauren marquez To Contact Contact Obstetrics Diagnoses 7wks IUP hyperemesis J10c [address] [place] [phone] Phone: Fax: Encounter Details Date Type Department Care Team Description 08/30/2020 - Hospital Encounter Obstetrics and Jad Isaacs ea and vomiting 09/01/2020 Gynecology (J10C) MD Tyler during [address] [place] [id number] [phone] Allergies Active Allergy Reactions Severity Noted Date Comments Ibuprofen Hives 04/15/2014 [place] Hives 04/15/2014 Sodium Citrate (Bulk) Nausea and/or Vomiting 9 documented as of this encounter (statuses as of 09/01/2020) Medications Medication Sig Dispensed Refills Start End Date Status Date vit Take 1 Packet by 30 Each 6 Active 43-wyry-quhvl-dha mouth daily. 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 Color Drum Worker Utility Encounter for IUD removal and reinsertion 01/18/2015 ASCUS on Pap smear 04/15/2014 Estimated Date of Delivery Comments Yes 04/11/2021 Based on Ultrasound, FHT: 127, Transverse Presentation, Placen ta Too early to evaulate documented as of this encounter (statuses as of 09/01/2020) Resolved Problems Problem Noted Date Resolved Date 37 weeks gestation of 12/18/2018 01/08/20 19 [place] Hick's contraction 12/12/2018 01/08/2019 Abnormal maternal glucose [...] management 01/25/2015 05/20/2018 Overview: ICD10 Diagnosis Term Color Drum Worker Utility Breast tenderness in female 01/25/2015 05/20/2018 Not immune to rubella 04/16/2014 06/04/2016 Overview: ICD10 Diagnosis Term Color Drum Worker Utility documented as of this encounter [...] cannot be sent through Care Everywhere. Diet, [place] (Adult) (Canadian)documented in this encounter Progress Notes Major Velasquez [...] mL IV piggyback 25 mg IV Piggyback [id number] mg at 09/01/20 0552 pyridoxine (VITAMIN B-6) [...] 08/28/2020 21 No results found for: URICACID, [id number] No results found for: LDH Assessment/Plan: Suraj [...] tolerate PO for over 2 days - [facility] Course: s/p 2L NS bolus, IV 4mg zofran, 12.5 benadryl, 20mg Pepcid, 12.5 phenergan, refused second phenergan dose so given Reglan 10mg, 20mEq KCLrepletion - OSH labs remarkable for K 3.2, Cr 0.72, LFT WNL, lipase 59, Udip with 2+ ketone -Patient reports severe nausea, dry heaving noted in triage - Upon transfer to [facility], P 80s, BP 120/60s - [...] at 37w - Documented LTCS at [facility] - Desires possible Hx PTD - G1 at 34w - G2 at 36w COVID-19 SCREEN: Lab Results Component Value Date/Time COVID19 Not Detected 08/30/2020 11:37 PM Antepartum course reviewed - seronegative, Rnot immune, VZVnot immune,A positive/IATnegative, GBSunk, PapASCUS 11/2017, neg HRHPV, needs repeat cotesting in 3 years - H/H, plt:14.5/ 40.7,187on 08/28/20 -[facility] hospital[facility] Fetus - [id number] bpm via M mode on admission BSUS Major Velasquez MD 09/01/2020 Associated attestation - Marisel Galvan MD - 09/01/2020 10:40 AM CDT I was rounding [facility] faculty for this patient and was [...] at 37w - Documented LTCS at [facility] - Desires possible Hx PTD [...] - 08/31/2020 1:15 PM CDTJamiee Luly Fuentes [id number] 08/31/2020 1:15 PM Post-Rounds: - daily BMP [...] Physician: Cornelius Fernandez CHIEF COMPLAINT Transfer from [facility] ED HISTORY OF PRESENT ILLNESS Suraj Fuentes is a 29 year old at 8w0d who was transferred from [facility] ED for nausea and vomiting during [...] for over 2 days. She went to [facility] earlier this week (3-4 days ago), then presented to [facility] ED Saturday night.She was given 1L bolus, IV zofran, IV phenergan, and reglan, PO challenged with water/crackers, thensent home with renewed eRx vitamin B6. Reports PO zofran and Reglan not helping right now, therefore went to [facility] ED earlier this afternoon. [facility] ED Course: Afebrile, Pulse 71-86, BP [...] Manny Gray; Location: Labor and Delivery - [place] Past Medical History: Diagnosis Date Abnormal maternal [...] Oral Q6H Allergies and drug reactions: Ibuprofen, [place], and Sodium citrate (bulk) HOME MEDICATIONS Medications [...] (ZOFRAN ORAL) Take by mouth. Taking vit 09-vwzj-vkftm-dha (SELECT-OB + DHA) 29 mg iron-1 mg [...] 1H GTT Lab Results Component Value Date/Time [id number] 08/03/2020 02:17 PM CBC Lab Results [...] 05/20/2018 Obesity in 01/25/2015 ICD10 Diagnosis Term Color Drum Worker Utility Resolved Hospital Problems No resolved problems [...] tolerate PO for over 2 days - [facility] Course: s/p 2L NS bolus, IV 4mg zofran, 12.5 benadryl, 20mg Pepcid, 12.5 phenergan, refused second phenergan dose so given Reglan 10mg, 20mEq KCL repletion - OSH labs remarkable for K 3.2, Cr 0.72, LFT WNL, lipase 59, Udip with 2+ ketone - Patient reports severe nausea, dry heaving noted at bedside - Upon transfer to [facility], P 80s, BP 120/60s - [...] at 37w - Documented LTCS at [facility] - Desires possible Hx PTD - G1 at 34w - G2 at 36w COVID-19 SCREEN: Lab Results Component Value Date/Time COVID19 Not Detected 08/30/2020 11:37 PM Antepartum course reviewed - sero negative, Rnot immune, VZVnot immune, A positive/IAT negative, GBS unk, Pap ASCUS 11/2017, negHRHPV, needs repeat cotesting in 3 years - H/H, plt: 14.5 / 40.7, 187 [facility] 171-178 bpm [...] - 08/31/2020 5:02 PM CDTFood Allergy and Cultural/Evangelical Food Preferences Consult Note: Spoke with patient's nurse today over the phone. Per nurse, patient with food allergy to oranges. Per allergy list patient with hives as reported reaction. Please see confirmed food allergy below. Confirmed Food Allergy: 1. [place] Reaction:Hives Confirmed Cultural Food Preferences: 1. None Confirmed Evangelical Food Preferences: 1. None Kary Coppola MS, RD, LD Clinical Dietitian RD Office: [phone] documented in this encounter Miscellaneous Notes Care [...] 09/08/2020 Routine Visit OB Satellites Lauren Fernandez, BIAS CUTTER HELPER [address] [address] [phone] Name Type Priority Associated Diagnoses Order S [...] CDT) NA 135 135 - 145 [facility] mmol/L SERVICES K 3.6 3.5 - 5.0 [facility] mmol/L SERVICES CL 106 98 - 108 mmol/L [facility] SERVICES CO2 TOTAL 21 (L) 23 - 31 mmol/L [facility] SERVICES AGAP 8 2 - 16 [facility] BUN 3 (L) 7 - 23 mg/dL [facility] SERVICES GLUCOSE 106 70 - 110 mg/dL [facility] SERVICES CREATININE 0.46 (L) 0.50 - 1.04 [facility] mg/dL SERVICES CALCIUM 8.6 8.6 - 10.6 [facility] mg/dL SERVICES eGFR Calculation 160.6 mL/min/1.73m2 [facility] (Non- SERVICES Ghanaian) eGFR Calculation 194.7 mL/min/1.73m2 [facility] [...] in imaging tests) . Performing Organization Address City/[facility] Phone Number [facility] CLIA: [id number] [place], [place] [address] [address] [place] [address] URINALYSIS (08/31/2020 4:07 PM CDT) Pathologist Sig [...] - URINE, CLEAN CATCH Performing Organization Address [facility] Phone Number [facility] CLIA: [id number] [place] [address] [place] [address] Type and Screen - ONCE Routine (08/31/2020 12:23 AM CDT) Pathologist [facility] ABO & RH A POSITIVE LAB Comment: Performed at [facility] Laboratory Services - [facility] Blood Bank [address] [place] [address] Toll Free: [phone] CLIA No. [id number] IAT Negative LAB Comment: Performed at [facility] Laboratory Services - [facility] Blood Bank [address] [place] [address] Toll Free: [phone] CLIA No. [id number] Specimen Blood - VENOUS Performing Organization Address City/[facility] Phone Number [facility] LAB BASIC METABOLIC PANEL (NA, K, CL, CO2, GLUCOSE, BUN, CREATININE, CA) (08/31/2020 12:17 AM CDT) [facility] NA 134 (L) 135 - 145 [facility] mmol/L SERVICES K 3.8 3.5 - 5.0 [facility] mmol/L SERVICES CL 104 98 - 108 mmol/L [facility] SERVICES CO2 TOTAL 22 (L) 23 - 31 mmol/L [facility] SERVICES AGAP 8 2 - 16 [facility] SERVICES BUN <2 (L) 7 - 23 mg/dL [facility] SERVICES GLUCOSE 87 70 - 110 mg/dL [facility] SERVICES CREATININE 0.50 0.50 - 1.04 [facility] mg/dL SERVICES CALCIUM 8.8 8.6 - 10.6 [facility] mg/dL SERVICES eGFR Calculation 145.9 mL/min/1.73m2 [facility] (Non- SERVICES Ghanaian) eGFR Calculation 176.8 mL/min/1.73m2 [facility] [...] in imaging tests) . Performing Organization Address City/[facility]/Zipcode Phone Number [facility] CLIA: [id number] [place] [address] [place] [address] COVID-19 (ID NOW RAPID TESTING) (08/30/2020 11:37 PM CDT) SARS-CoV-2 Rapid ID Not Detected Not Detected [facility] NOW SERVICES Specimen Swab - NASOPHARYNGEAL SWAB Narrative Performed At [place] NOW COVID-19 Assay is an isothermal nucleic acid [facility] amplification test intended for the qualitative detect ion of nucleic acid from SARS-CoV-2 viral RNA in nasopharynge al (DENTAL PROFESSIONAL) specimens. It is used under Emergency Use [...] [facility] CLIA: [id number] [place] [address] [phone] [address] [facility] URINALYSIS (08/30/2020 10:44 PM CDT) Pathologist Sig nature APPEARANCE Clear Clear [facility] SERVICES COLOR Yellow Yellow [facility] PH 7.0 4.8 - 8.0 [facility] SP GRAVITY 1.012 1.003 - 1.030 [facility] SERVICES GLU U QUAL Normal Normal [facility] BLOOD Negative Negative [facility] KETONES 80 mg/dL (A) Negative [facility] PROTEIN Negative Negative [facility] UROBILIN Normal Normal [facility] BILIRUBIN Negative Negative [facility] NITRITE Negative Negative [facility] LEUK HO Negative Negative [facility] RBC/HPF 2 0 - 3 HPF [facility] SERVICES WBC/HPF <1 0 - 5 HPF [facility] BACTERIA Negative Negative [facility] MUCOUS Slight (A) Negative LPF [facility] SERVICES SQ EPITH 1 <=2 HPF [facility] ASCORBIC ACID Negative [facility] Specimen Urine - URINE, CLEAN CATCH Performing Organization Address City/State/Zipcode Phone Number [facility] CLIA: [id number] [place] [address] [place] [address] documented in this encounter Visit Diagnoses Diagnosis [...] mL, Intravenous, ONCE, 1 dose, [facility] 08/30/20 at 2330, Routine potassium chloride 20 [...] Address T ype Group Dates ASIA BETANCOURT [id number] 2018-Anupama [address] [place] [place] [phone] MANAGED MED[place]ID [place] documented as of this encounter Advance Directives Type Date Recorded Patient Supervisor Beam Department Explanati on Advance Directives and Living Will Power of Pattern Marking Supervisor Name Relationship Healthcare Agent Relationship Co mmunication Floyd Brown Father Health Care Agent Preet Coffey Other Health Care Agent [place] Gina Spouse First [facility] Health Care [phone] Agent (Mobile)
--- OUTSIDE RECORDS SUMMARY | 2020-10-02 11:45 | XMS REPORT | Summary of Care ---
:1990 Author Organization [facility] - [facility] Address [address] [place] [address] Care Team Providers Name Role Phone Gamal Saravia Insurance Hmo Lauren Fernandez Primary Care Provider Reason for Visit Reason Comments Abdominal Pain Vomiting Auth/Cert Status Reason Specialty Diagnoses / Referred By Referred To Procedures Contact Contact Emergency Medicine Adc Em ergency Dept [address] [address] Fax: Encounter Details Date Type Department Care Team Description 09/07/2020 Emergency ADC-Emergency Depart ment Mary Carmen Jacobs, PAC [address] [place] [address] [place] [address] [place] [address] [phone] Allergies Active Allergy Reactions Severity Noted Date Comments Ibuprofen Hives 04/15/2014 [place] Hives 04/15/2014 Sodium Citrate (Bulk) Nausea and/or Vomiting 9 documented as of this encounter (statuses as of 09/07/2020) Medications Medication Sig Dispensed Refills Start Date End Date Status vit Take 1 Packet by 30 Each 6 08/03/2020 Active 88-rwtq-tduhf-dha mouth daily. 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 Engineer Technician Utility Encounter for IUD removal and [...] management 01/25/2015 05/20/2018 Overview: ICD10 Diagnosis Term Engineer Technician Utility Breast tenderness in female 01/25/2015 05/20/2018 Not immune to rubella 04/16/2014 06/04/2016 Overview: ICD10 Diagnosis Term Engineer Technician Utility documented as of this encounter [...] active vomiting noted. Also discussed contacting her debt collector for termination. Pt signed AMA form and walked out of ER without incident. Brenda frost RN - 09/07/2020 2:45 PM CDTPt upset with staff regarding visitor policy states, "She just needs an ditcher operator. She needs toget this baby out [...] 09/08/2020 Routine Visit OB Satellites Lauren Fernandez, MORTUARY OPERATIONS MANAGER [address] [place], [place] [address] [phone] Health Maintenance Due Date Last Done Comments [...] Address T ype Group Dates ASIA BETANCOURT [id number] 2018-Anupama Camacho [address] Medic [place] [id number] [place] MED[place] documented as of this encounter Advance Directives Type Date Recorded Patient Fermenter Operator Explanati on Advance Directives and Living Will Power of Sap Project Manager Name Relationship Healthcare Agent Relationship Co mmunication Floyd Brown [facility] Agent Preet Coffey Other Health Care Agent [place] Fuentes Spouse First [facility] Health Care [phone] Agent (Mobile)
--- OUTSIDE RECORDS SUMMARY | 2020-10-02 11:45 | XMS REPORT | Summary of Care ---
:1990 Author Organization [facility] Address [address] [place] [address] Care Team Providers Name Role Phone Gamal Saravia Insurance Hmo Lauren Fernandez Primary Care Provider Reason for Visit Reason Comments ROUTINE VISIT (Routine) Status Reason Specialty Diagnoses / Referred By Referred To Procedures Contact Contact New Request OB Satellites Diagnoses Hyperemesis gravidarum Marisel Galvan, Procedures Discharge Follow-Up: Labor Arbitrator Hearing Office Lorena FRANKLIN [address] [facility] [id number] [place] [address] Encounter Details Date Type Department Care Team Description 09/08/2020 Routine [facility]- Cornelius Fernandez upervision of high risk in first trimester (Primary Dx); Visit ELIZ Holland Previous section complicating p regnancy; [address] Des[address] V NANCY (vaginal after ) trial; [address] [employer]; [place], [place], [place] Nausea and vomi ting during ; [phone] Obesity in [phone] Allergies Active Allergy Reactions Severity Noted Date Comments Ibuprofen Hives 04/15/2014 [place] Hives 04/15/2014 Sodium Citrate (Bulk) Nausea and/or Vomiting 9 documented as of this encounter (statuses as of 09/08/2020) Medications Medication Sig Dispensed Refills Start Date End Date Status vit Take 1 Packet by 30 Each 6 08/03/2020 Active 57-wlvw-pwyaw-dha mouth daily. 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 General Studies Program Chair Utility Encounter for IUD removal and reinsertion 01/18/2015 ASCUS on Pap smear 04/15/2014 Estimated Date of Delivery Comments Yes 04/11/2021 Based on Ultrasound, FHT: 127, Transverse Presentation, Placen ta Too early to evaulate documented as of this encounter (statuses as of 09/08/2020) Resolved Problems Problem Noted Date Resolved Date 37 weeks gestation of 12/18/2018 01/08/20 19 [place] Hick's contraction 12/12/2018 01/08/2019 Abnormal maternal glucose [...] management 01/25/2015 05/20/2018 Overview: ICD10 Diagnosis Term General Studies Program Chair Utility Breast tenderness in female 01/25/2015 05/20/2018 Not immune to rubella 04/16/2014 06/04/2016 Overview: ICD10 Diagnosis Term General Studies Program Chair Utility documented as of this encounter (statuses [...] in this encounter Progress Notes Cornelius Fernandez, HOME HOSPICE AIDE - 09/08/2020 10:45 AM CDT Chief complaint: Chief Complaint Patient presents with ROUTINE VISIT HPI CC: Follow Up Visit Suraj Fuentes is a 29 year old, , /White female. Patient's last menstrual period was 06/08/2020 (approximate). She is 9w2d with an intrauterine . Her estimated date of delivery is 04/11/2021, by Ultrasound. She went to [facility] ER for nausea and vomitin g, Zofran [...] Manny Gray; Location: Labor and Delivery - [place] Social History Socioeconomic History Marital status: Spouse [...] file Gets together: Not on file Attends yazidi service: Not on file Active member of [...] sexual or emotional abuse. Only outside cats. Yazidi: None Patient lives with spouse and kids. [...] problems of obesity on future pregnancies and/or fdc health. Return to clinic in 4 weeks. [...] / Subscriber ID Effective Phone Address [employer] Dates ASIA BETANCOURT [id number] 2018-Anupama [place] Medic [place] [id number] MA[place]ED MED[place] documented as of this encounter Advance Directives Type Date Recorded Patient Crm Consultant Explanati on Advance Directives and Living Will Power of Business Support Liaison Name Relationship Healthcare Agent Relationship Co mmunication Floyd Brown Father Health Care Agent Preet Coffey Other Health Care Agent [place] Fuentes Spouse [facility] Health Care Agent (Mobile)
--- OUTSIDE RECORDS SUMMARY | 2020-10-02 11:45 | XMS REPORT | Summary of Care ---
:1990 Author Organization [facility] Address [address] [place] [address] Care Team Providers Name Role Phone Gamal Saravia Insurance Hmo Lauren Fernandez PROOF OPERATOR Primary Care Provider Reason for Visit Reason Comments Assessment vomit Encounter Details Date Type Department Care Team Description 09/06/2020 Telephone [facility]- Cornelius Fernandez, As sessment (vomit) [facility] [address] [facility] [address] [place] [address] [place] [address] [phone] Allergies Active Allergy Reactions Severity Noted Date Comments Ibuprofen Hives 04/15/2014 [place] Hives 04/15/2014 Sodium Citrate (Bulk) Nausea and/or Vomiting 9 documented as of this encounter (statuses as of 09/06/2020) Medications Medication Sig Dispensed Refills Start End Date Status Date vit Take 1 Packet by 30 Each 6 Active 30-vhmk-jxeyo-dha mouth daily. 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 Micromatic Hone Operator Utility Encounter for IUD removal and reinsertion 01/18/2015 ASCUS on Pap smear 04/15/2014 Estimated Date of Delivery Comments Yes 04/11/2021 Based on Ultrasound, FHT: 127, Transverse Presentation, Placen ta Too early to evaulate documented as of this encounter (statuses as of 09/06/2020) Resolved Problems Problem Noted Date Resolved Date 37 weeks gestation of 12/18/2018 01/08/20 19 [place] Hick's contraction 12/12/2018 01/08/2019 Abnormal maternal glucose [...] management 01/25/2015 05/20/2018 Overview: ICD10 Diagnosis Term Micromatic Hone Operator Utility Breast tenderness in female 01/25/2015 05/20/2018 Not immune to rubella 04/16/2014 06/04/2016 Overview: ICD10 Diagnosis Term Micromatic Hone Operator Utility documented as of this encounter [...] old female Patient stated she went to [facility] and was given a shot of phenergan. Patient stated she wasgiven Tylenol but vomited and is pain. Stated her is taking her to [facility]. informed patient to f/u after and [...] Patient stated she went to [facility] 08/28/20 for N/V and has received fluids [...] has been loosing weight , please call [phone] (home) documented in this encounter Plan of Treatment Date Type Specialty Care Team Description 09/08/2020 Routine Visit OB Satellites Lauren Fernandez FNP [address] [place], [place] [address] [phone] Health Maintenance Due Date Last Done Comments [...] Address T e Group Dates ASIA BETANCOURT [id number] 2018-Anupama Camacho O BOX Medic aid [facility] [phone] MANAGED MEDICA[place] documented as of this encounter Advance Directives Type Date Recorded Patient National Sales Manager Explanati on Advance Directives and Living Will Power of Cryptoanalysis Teacher Name Relationship Healthcare Agent Relationship Co mmunication Floyd Brown Father Health Care Agent Preet Coffey Other Health Care Agent [place] Fuentes Spouse [facility] Agent (Mobile)
--- OUTSIDE RECORDS SUMMARY | 2020-10-02 11:46 | XMS REPORT | Summary of Care ---
:[address] [facility] Address [address] [place] [address] Care Team Providers Name Role Phone Gamal Saravia Insurance Hmo Lauren Fernandez Primary Care Provider Reason for Visit Reason Comments ROUTINE VISIT (Routine) Status Reason Specialty Diagnoses / Referred By Referred To Procedures Contact Contact New Request OB Satellites Diagnoses Hyperemesis gravidarum Marisel Galvan, Procedures Discharge Follow-Up: Maintenance Of Way Supervisor Lorena FRANKLIN [address] [facility] [id number] [place] [address] Encounter Details Date Type Department Care Team Description 09/08/2020 Routine [facility]- Cornelius Fernandez upervision of high risk in first trimester (Primary Dx); Visit ELIZ Holland Previous section complicating p regnancy; [address] NANCY (vaginal after ) trial; [address]; [place], [place], [place] Nausea and vomi ting during ; [id number] Obesity in [phone] Allergies Active Allergy Reactions Severity Noted Date Comments Ibuprofen Hives 04/15/2014 [place] Hives 04/15/2014 Sodium Citrate (Bulk) Nausea and/or Vomiting 9 documented as of this encounter (statuses as of 09/08/2020) Medications Medication Sig Dispensed Refills Start Date End Date Status vit Take 1 Packet by 30 Each 6 08/03/2020 Active 50-fale-ipvuj-dha mouth daily. 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 Supervisor Mill Utility Encounter for IUD removal and reinsertion 01/18/2015 ASCUS on Pap smear 04/15/2014 Estimated Date of Delivery Comments Yes 04/11/2021 Based on Ultrasound, FHT: 127, Transverse Presentation, Placen ta Too early to evaulate documented as of this encounter (statuses as of 09/08/2020) Resolved Problems Problem Noted Date Resolved Date 37 weeks gestation of 12/18/2018 01/08/20 19 [place] Hick's contraction 12/12/2018 01/08/2019 Abnormal maternal glucose [...] management 01/25/2015 05/20/2018 Overview: ICD10 Diagnosis Term Supervisor Mill Utility Breast tenderness in female 01/25/2015 05/20/2018 Not immune to rubella 04/16/2014 06/04/2016 Overview: ICD10 Diagnosis Term Supervisor Mill Utility documented as of this encounter (statuses as of 09/08/2020) Immunizations Name Administration Dates Next Due HPV9 06/04/2016 MMR 12/20/2018 (Deferred: - not available f [facility]) TDAP 04/06/2015 TDAP (ADACEL) [...] in this encounter Progress Notes Cornelius Fernandez, CONCIERGE MANAGER - 09/08/2020 10:45 AM CDT Chief complaint: Chief Complaint Patient presents with ROUTINE VISIT HPI CC: Follow Up Visit Suraj Fuentes is a 29 year old, , /White female. Patient's last menstrual period was 06/08/2020 (approximate). She is 9w2d with an intrauterine . Her estimated date of delivery is 04/11/2021, by Ultrasound. She went to [facility] ER for nausea and vomitin g, [...] Manny Gray; Location: Labor and Delivery - [place] Social History Socioeconomic History Marital status: Spouse [...] file Gets together: Not on file Attends scientologist service: Not on file Active member of [...] sexual or emotional abuse. Only outside cats. Druze: None Patient lives with spouse and kids. [...] 10/06/2020 Routine Visit OB Satellites Lauren Fernandez, CONCIERGE MANAGER [address] [place], [place] [address] [phone] Health Maintenance Due Date Last Done Comments [...] Address T ype Group Dates ASIA BETANCOURT [id number] 2018-Anupama [place] [id number] MANAGED MED[place] documented as of this encounter Advance Directives Type Date Recorded Patient Power Cleaner Operator Explanati on Advance Directives and Living Will Power of Parts Picker Name Relationship Healthcare Agent Relationship Co mmunication Floyd Brown Father Health Care Agent Preet Milagrosteph Other Health Care Agent [place] Fuentes Spouse First [facility] [phone] Agent (Mobile)
--- OUTSIDE RECORDS SUMMARY | 2020-10-02 11:46 | XMS REPORT | Summary of Care ---
:1990 Author Organization [facility] Address [address] [place] [address] Care Team Providers Name Role Phone Gamal Saravia Insurance Hmo Lauren Fernandez Primary Care Provider Reason for Visit Reason Comments ROUTINE VISIT (Routine) Status Reason Specialty Diagnoses / Referred By Referred To Procedures Contact Contact New Request OB Satellites Diagnoses Hyperemesis gravidarum Marisel Galvan, Procedures Discharge Follow-Up: Cosmetic Counselor Lorena FRANKLIN [address] [facility] [id number] [place] [address] Encounter Details Date Type Department Care Team Description 09/08/2020 Routine [facility]- Cornelius Fernandez upervision of high risk in first trimester (Primary Dx); Visit ELIZ Holland Previous section complicating p regnancy; [address] V NANCY (vaginal after ) trial; [address]; [place], [place], [place] Nausea and vomi ting during ; [id number] Obesity in [phone] Allergies Active Allergy Reactions Severity Noted Date Comments Ibuprofen Hives 04/15/2014 [place] Hives 04/15/2014 Sodium Citrate (Bulk) Nausea and/or Vomiting 9 documented as of this encounter (statuses as of 09/08/2020) Medications Medication Sig Dispensed Refills Start Date End Date Status vit Take 1 Packet by 30 Each 6 08/03/2020 Active 11-fzua-vgsxb-dha mouth daily. (SELECT-OB + DHA) 29 mg [...] in 01/25/2015 Overview: ICD10 Diagnosis Term Executive Vp Utility Encounter for IUD removal and reinsertion 01/18/2015 ASCUS on Pap smear 04/15/2014 Estimated Date of Delivery Comments Yes 04/11/2021 Based on Ultrasound, FHT: 127, Transverse Presentation, Placen ta Too early to evaulate documented as of this encounter (statuses as of 09/08/2020) Resolved Problems Problem Noted Date Resolved Date 37 weeks gestation of 12/18/2018 01/08/20 19 [place] Hick's contraction 12/12/2018 01/08/2019 Abnormal maternal glucose [...] 01/25/2015 05/20/2018 Overview: ICD10 Diagnosis Term Executive Vp Utility Breast tenderness in female 01/25/2015 05/20/2018 Not immune to rubella 04/16/2014 06/04/2016 Overview: ICD10 Diagnosis Term Executive Vp Utility documented as of this encounter (statuses [...] in this encounter Progress Notes Cornelius Fernandez, CRIB ATTENDANT - 09/08/2020 10:45 AM CDT Chief complaint: Chief Complaint Patient presents with ROUTINE VISIT HPI CC: Follow Up Visit Suraj Fuentes is a 29 year old, , /White female. Patient's last menstrual period was 06/08/2020 (approximate). She is 9w2d with an intrauterine . Her estimated date of delivery is 04/11/2021, by Ultrasound. She went to [facility] ER for nausea and vomitin [...] Manny Gray; Location: Labor and Delivery - [place] Social History Socioeconomic History Marital status: Spouse [...] sexual or emotional abuse. Only outside cats. Yazidism: None Patient lives with spouse and kids. [...] problems of obesity on future pregnancies and/or [facility]. Return to clinic in 4 weeks. [...] Address T ype Group Dates ASIA BETANCOURT [id number] 2018-Anupama Camacho [address] Medic aid [facility] [place] [id number] MANAGED MEDICAID [place], [place] documented as of this encounter Advance Directives Type Date Recorded Patient Roaster Supervisor Explanati on Advance Directives and Living Will Power of Hospital Clinic Assistant Name Relationship Healthcare Agent Relationship Co mmunication Floyd Brown Father Health Care Agent Preet Coffey Other Health Care Agent [phone] (Mobile) [place] Gina Spouse First [facility] Health Care Agent (Mobile)
--- OUTSIDE RECORDS SUMMARY | 2020-10-02 11:47 | XMS REPORT | Summary of Care ---
:1990 Author Organization [facility] Address [address] [place] [address] Care Team Providers Name Role Phone Gamal Saravia Insurance Hmo Lauren Fernandez FIRE PREVENTION CHIEF Primary Care Provider Reason for Visit Reason Comments Rx Concern/Question prior auth go to cover mymed s [id number] Encounter Details Date Type Department Care Team Description 09/07/2020 Telephone [facility]- Cornelius Fernandez, Rx Concern/Question Collins FNP (prior auth go to [facility] [address] [facility] cover mymeds [id number]) [place] [address] [place], [place] [phone] Allergies Active Allergy Reactions Severity Noted Date Comments Ibuprofen Hives 04/15/2014 [place] Hives 04/15/2014 Sodium Citrate (Bulk) Nausea and/or Vomiting 9 documented as of this encounter (statuses as of 09/08/2020) Medications Medication Sig Dispensed Refills Start Date End Date Status vit Take 1 Packet by 30 Each 6 08/03/2020 Active 58-aeyi-dckho-dha mouth daily. 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 Stock Unloader Utility Encounter for IUD removal and reinsertion 01/18/2015 ASCUS on Pap smear 04/15/2014 Estimated Date of Delivery Comments Yes 04/11/2021 Based on Ultrasound, FHT: 127, Transverse Presentation, Placen ta Too early to evaulate documented as of this encounter (statuses as of 09/08/2020) Resolved Problems Problem Noted Date Resolved Date 37 weeks gestation of 12/18/2018 01/08/20 19 [place] Hick's contraction 12/12/2018 01/08/2019 Abnormal maternal glucose [...] management 01/25/2015 05/20/2018 Overview: ICD10 Diagnosis Term Stock Unloader Utility Breast tenderness in female 01/25/2015 05/20/2018 Not immune to rubella 04/16/2014 06/04/2016 Overview: ICD10 Diagnosis Term Stock Unloader Utility documented as of this encounter (statuses [...] for authorization of nausea medication. Please call [phone] (home) documented in this encounter Plan of Treatment Date Type Specialty Care Team Description 10/06/2020 Routine Visit OB Satellites Lauren Fernandez, FIRE PREVENTION CHIEF [address] [place] [address] [phone] Health Maintenance Due Date Last Done Comments [...] Address T biancae Group Dates ASIA BETANCOURT [id number] 2018-Anupama Camacho [address] Medic [place] [id number] MANAGED MEDICA[place] documented as of this encounter Advance Directives Type Date Recorded Patient Craft Manager Explanati on Advance Directives and Living Will Power of Straddle Bug Driver Name Relationship Healthcare Agent Relationship Co mmunication Floyd Brown Father Health Care Agent Preet Coffey Other Health Care Agent [place] Fuentes Spouse First [facility] Health Care Agent (Mobile)
--- OUTSIDE RECORDS SUMMARY | 2020-10-02 11:47 | XMS REPORT | Summary of Care ---
:1990 Author Organization [facility] Address [address] [place] [address] Care Team Providers Name Role Phone Gamal Saravia Insurance Hmo Lauren Fernandez Primary Care Provider Reason for Visit Reason Comments Abdominal Pain Encounter Details Date Type Department Care Team Description 09/09/2020 [facility], Abdominal [facility] [address] [facility] [address] [place] [address] [facility] [phone] [place], [place] [address] [phone] Allergies Active Allergy Reactions Severity Noted Date Comments Ibuprofen Hives 04/15/2014 [place] Hives 04/15/2014 Sodium Citrate (Bulk) Nausea and/or Vomiting 9 documented as of this encounter (statuses as of 09/09/2020) Medications Medication Sig Dispensed Refills Start Date End Date Status vit Take 1 Packet by 30 Each 6 08/03/2020 Active 71-sfzm-vypek-dha mouth daily. 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 Slot Ambassador Utility Encounter for IUD removal and reinsertion [...] management 01/25/2015 05/20/2018 Overview: ICD10 Diagnosis Term Slot Ambassador Utility Breast tenderness in female 01/25/2015 05/20/2018 Not immune to rubella 04/16/2014 06/04/2016 Overview: ICD10 Diagnosis Term Slot Ambassador Utility documented as of this encounter (statuses [...] she states she was seen at the [facility] earlier today but reports no imaging was done, she was only given IV fluids. Patient advised to go to L&D for further evaluation, the gentleman and patient agreed and reported that he would to take her to [place] L[facility]D. Report called and given to Sharlene MEJÍA. BELLA Brower 09/09/2020 4:24 PM documented in this encounter Plan of Treatment Date Type Specialty Care Team Description 10/06/2020 Routine Visit OB Satellites Lauren Fernandez, CIAIO COUNTER MOLDER [address] [place], [place] [address] [phone] Health Maintenance Due Date Last Done Comments [...] Address T e Group Dates ASIA BETANCOURT [id number] 2018-Anupama [address] Medic [place] [id number] MANAGED MED[place] documented as of this encounter Advance Directives Type Date Recorded Patient Front End Ui Developer Explanati on Advance Directives and Living Will Power of [place] Conductor Name Relationship Healthcare Agent Relationship Co mmunication Floyd Brown [facility] Health Care Agent Preet Coffey Other Health Care Agent [place] Fuentes Spouse First [facility] Care [phone] Agent (Mobile)
--- OUTSIDE RECORDS SUMMARY | 2020-10-02 11:47 | XMS REPORT | Summary of Care ---
:1990 Author Organization [facility] - [facility] Address [address] [place] [address] Care Team Providers Name Role Phone Gamal Saravia Insurance Hmo Lauren Fernandez COMPENSATION AND BENEFITS MANAGER Primary Care Provider Reason for Referral (Routine) Status Reason Specialty Diagnoses / Procedures Referred By Lauren marquez To Contact Contact New Request Diagnoses Nausea and vomiting, intractability of vomiting not specified, unspecified vomiting type Hyperemesis gravidarum Prema Hernandez MD Procedures Discharge Follow-Up: Home Health Care Coordinator Clnic [address] [place] [address]. [place] [address] Radiology Services (STAT) Status Reason Specialty Diagnoses / Referred By Referred To Procedures Contact Contact New Request Diagnostic Diagnoses Nausea and vomiting, intractability of vomiting not specified, unspecified vomiting type Generalized abdominal pain Marcelo Carpio Radiology Procedures US ABDOMEN LIMITED MD Keerthi [address] [place] [address] [id number] [place] [address] Reason for Visit Reason Comments Abdominal Pain Auth/Cert Status Reason Specialty Diagnoses / Referred By Referred To Procedures Contact Contact Emergency Medicine [facility] rgency Dept [address] [place] [address] Fax: Encounter Details Date Type Department Care Team Description 09/09/2020 - Hospital Encounter Obstetrics and ShirinMarcelo MD [id number] [place], [place] [address] Nausea & vomiting 09/10/2020 Gynecology (J10C) Karlie Brown MD [id number] [place], [place] [address] [address] [place] [address] Allergies Active Allergy Reactions Severity Noted Date Comments Ibuprofen Hives 04/15/2014 [place] Hives 04/15/2014 Sodium Citrate (Bulk) Nausea and/or Vomiting 9 documented as of this encounter (statuses as of 09/10/2020) Medications Medication Sig Dispensed Refills Start Date End Date Status vit Take 1 Packet by 30 Each 6 08/03/2020 Active 35-mema-ztlci-dha mouth daily. 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 Fnp Utility Encounter for IUD removal and reinsertion 01/18/2015 ASCUS on Pap smear 04/15/2014 Estimated Date of Delivery Comments Yes 04/11/2021 Based on Ultrasound, FHT: 127, Transverse Presentation, Placen ta Too early to evaulate documented as of this encounter (statuses as of 09/10/2020) Resolved Problems Problem Noted Date Resolved Date 37 weeks gestation of 12/18/2018 01/08/20 19 Mower Hick's contraction 12/12/2018 01/08/2019 Abnormal maternal glucose [...] management 01/25/2015 05/20/2018 Overview: ICD10 Diagnosis Term Fnp Utility Breast tenderness in female 01/25/2015 05/20/2018 Not immune to rubella 04/16/2014 06/04/2016 Overview: ICD10 Diagnosis Term Fnp Utility documented as of this encounter (statuses [...] SW, patient needed transport home. provided Voucher #[id number] for [employer] . Roseann Bowens LMSW It Teacher Care Management C: [phone] O: [phone] [email or web address] Poonam Solomon MD - 09/10/2020 4:00 PM CDTR1 CASTLE CALL PROGRESS NOTE Suraj Fuentes [id number] 09/10/2020, 4:00 PM Notified by RN that patient is now tolerating a regular diet. Pt previously on oral antiemetics and adamantly desires to be d/c at this time. Will d/c with home medications. Precautions given, f/u withregular PNV. Discussed with Dr. Eller. Poonam Solomon MD BEHAVIORAL HEALTH ASSOCIATE PGY-1 09/10/20 documented in this encounter H&P [...] Manny Gray; Location: Labor and Delivery - [place] Past Medical History: Diagnosis Date Abnormal maternal [...] 09/10/20 0632 Allergies and drug reactions: Ibuprofen, Wilmot, and Sodium citrate (bulk) HOME MEDICATIONS Prescriptions [...] for 42 days. 120 tablet 1 vit 77-hsky-icqsh-dha (SELECT-OB + DHA) 29 mg iron-1 mg [...] Date/Time GLUF 68 (L) 12/12/2018 07:47 AM [id number] 124 08/03/2020 02:17 PM GLU3H 108 12/12/2018 [...] presentation at 37w - Documented LTCS at [facility] - Desires possible Hx PTD - G1 at 34w - G2 at 36w COVID-19 SCREEN: Lab Results Component Value Date/Time COVID19 Not Detected 09/10/2020 02:30 AM Antepartum course reviewed - early 1 h 124, sero negative, Rnot immune, VZVequiv, A positive/IAT negative, GBS unk, Pap ASCUS 11/27/17 - H/H, plt: 13.9 / 39.3, 180 [facility] Presentation on admission: variable - too early to eval placenta - FHT 154 bpm DISPO: Admit for IV antiemetics in the setting of hyperemesis. PO challenge in AM D/w Dr. Mason. Destinee Wiseman MD PGY-2 BEHAVIORAL HEALTH ASSOCIATE Personal Pager: [phone] 09/10/20 1:51 AM Associated attestation - Karlie Brown MD - 09/10/2020 11:01 AM CDTI personally examined the patient on 09/10/[address] Wiseman's resident note as written. I actively participated in the decision-making process. Please see the resident's note for additional details. documented in this encounter Consult Notes Destinee Wiseman MD - 09/10/2020 12:20 AM CDTAssociated Order(s): CONSULT BEHAVIORAL HEALTH ASSOCIATE TRIAGE/L&D HISTORY & PHYSICAL IDENTIFYING DATA Suraj [...] Manny Gray; Location: Labor and Delivery - [place] Past Medical History: Diagnosis Date Abnormal maternal [...] 09/10/20 0632 Allergies and drug reactions: Ibuprofen, Wilmot, and Sodium citrate (bulk) HOME MEDICATIONS Medications [...] for 42 days. 120 tablet 1 vit 10-crhm-beskf-dha (SELECT-OB + DHA) 29 mg iron-1 mg [...] Date/Time GLUF 68 (L) 12/12/2018 07:47 AM [id number] 124 08/03/2020 02:17 PM GLU3H 108 12/12/2018 [...] presentation at 37w - Documented LTCS at [facility] - Desires possible Hx PTD - G1 at 34w - G2 at 36w COVID-19 SCREEN: Lab Results Component Value Date/Time COVID19 Not Detected 09/10/2020 02:30 AM Antepartum course reviewed - early 1 h 124, sero negative, Rnot immune, VZVequiv, A positive/IAT negative, GBS unk, Pap ASCUS 11/27/17 - H/H, plt: 13.9 / 39.3, 180 on 09/09/20 - [facility] Fetus - Presentation on admission: variable [...] Carpio MD - 09/09/2020 7:35 PM CDT [facility] Emergency Department Note Patient Name: Suraj Fuentes Date of : 1990 29 year old female Treatment Room: 119/119 Primary Care Physician: Cornelius Fernandez Patient Escorted by: Self [9] Mode of Arrival: Personal means [1] EMS Treatment Prior to ED Arrival: CLOTH EXAMINER MACHINE treatment: IVF;Other (comment) CLOTH EXAMINER MACHINE treatment comments: Per patient she was seen [...] or recent trauma History provided by: Patient bilingual speech language pathologist used: No Past Medical History/Immunizations: Past Medical History: Diagnosis Date Abnormal maternal glucose tolerance, antepartum 12/11/2018 Resolved per pt report Anxiety Resolved per pt report Anxiety and depression resolved Mental disorder Ovarian cyst recently found out of dx. Tetanus received in last 5 years: Unknown Childhood immunizations: Up-to-date Allergies: Allergies Allergen Reactions Ibuprofen Hives Wilmot Hives Sodium Citrate (Bulk) Nausea and/or Vomiting [...] Manny Gray; Location: Labor and Delivery - [place] Review of Systems: Review of Systems Constitutional: [...] Doppler ultrasound of the right upper quadrant. Aircraft Powerplant Repairer images were obtained for the record. COMPARISON: [...] Calculation () 222.3 mL/min/1.73m2 HEPATIC FUNCTION PANEL (19703) (ALB,T.PRO,BILI T,BU/BC,ALT,AST,ALK PHOS) Collection Time: 09/09/20 8:03 [...] GLUCOSE, BUN, CREATININE, CA) HEPATIC FUNCTION PANEL (72606) (ALB,T.PRO,BILI T,BU/BC,ALT,AST,ALK PHOS) LIPASE URINALYSIS CONSULT BEHAVIORAL HEALTH ASSOCIATE Orders Placed This Encounter Medications NaCl 0.9% [...] and antiemetics with minimal improvement in pain. Home Health Care Coordinator consulted. MDM: MDM Reviewed: nursing note and vitals Interpretation: labs and ultrasound Consults: BEHAVIORAL HEALTH ASSOCIATE Scoring Tools: No data recorded Diagnosis/Impression: ICD-10-CM [...] 2 tablets by mouth at bedtime. VIT 22-PKUZ-ZCNSF-DHA (SELECT-OB + DHA) 29 MG IRON-1 MG [...] RN - 09/10/2020 4:00 AM CDTPt to [facility] at this time via [facility] transport in stretcher. Respirations even and unlabored, AAOx4, NAD noted. D Nurse Note - Merna Ramos RN - 09/10/2020 3:37 AM CDTIce chips provided PO per patient request. D Nurse Note - Ada Bush RN - 09/10/2020 3:20 AM CDTPatient report called to recieving ALFONZO Jerome on floor [address] Patient updated on plan of care and verbalizes understanding. Patients VSS, RR even and unlabored, and NAD noted. [facility] tele track requested, awaiting transport to [facility]. D Nurse Note - Kristi Francis RN - 09/10/2020 3:17 AM CDTTransport requested D Nurse Note - Ada Bush RN - 09/10/2020 3:13 AM CDTRn returned call and states that patient is going to [facility]-1 D Nurse Note - Ada Bush RN - 09/10/2020 3:09 AM CDTAttempted to call report. Per RN on Chevy Carpenter, they are attempting to get a bed assigned in antepartum. oil and gas lease pumper states she is speaking with CN on [...] by 2 visitors. Patient connected to bedside quality assurance monitor chassis. D Nurse Note - Ada Bush RN - 09/09/2020 7:44 PM CDTPatient to room from triage documented in this encounter Plan of Treatment Date Type Specialty Care Team Description 10/06/2020 Routine Visit OB Satellites Lauren Fernandez, COMPENSATION AND BENEFITS MANAGER [address] [address] 15 [phone] Name Type Priority Associated Diagnoses Date/Ti me [...] PANEL LAB Routine ONCE f or 1 (40319) Occurrences sta rting 09/10/2020 unti l 09/10/2020 [...] Nausea and vomiting, Results for this PANEL (14373) PM CDT intractability of procedure are in [...] SARS-CoV-2 Rapid ID Not Detected Not Detected [facility] SERVICES Specimen Swab - NASOPHARYNGEAL SWAB Narrative Performed At ID NOW COVID-19 Assay is an isothermal nucleic acid [facility] amplification test intended for the qualitative detect ion of nucleic acid from SARS-CoV-2 viral RNA in nasopharynge al (DESIGNER WRITER) specimens. It is used under Emergency Use [...] testing if clinically indicated. Performing Organization Address [facility] Phone Number [facility] CLIA: [id number] [place] [address] [place] [address] URINALYSIS (09/09/2020 11:55 PM CDT) Pathologist Sig nature APPEARANCE Clear Clear [facility] COLOR Yellow Yellow [facility] PH 7.0 4.8 - 8.0 [facility] SP GRAVITY 1.015 1.003 - 1.030 [facility] GLU U QUAL 50 mg/dL (A) Normal [facility] BLOOD Negative Negative [facility] KETONES 80 mg/dL (A) Negative [facility] PROTEIN Negative Negative [facility] UROBILIN Normal Normal [facility] BILIRUBIN Negative Negative [facility] NITRITE Negative Negative [facility] LEUK HO Negative Negative [facility] RBC/HPF 1 0 - 3 HPF [facility] WBC/HPF 2 0 - 5 HPF [facility] BACTERIA Negative Negative [facility] MUCOUS Slight (A) Negative LPF [facility] SQ EPITH 5 (H) <=2 HPF [facility] Specimen Urine - URINE, CLEAN CATCH Performing Organization Address [facility] Phone Number [facility] CLIA: [id number] [place] [address] [place] [address] US ABDOMEN LIMITED (09/09/2020 9:45 PM CDT) [...] er ultrasound of the right upper quadrant. Aircraft Powerplant Repairer images were obt ained for the record. [...] er ultrasound of the right upper quadrant. Aircraft Powerplant Repairer images were obt ained for the record. [...] LIPASE 356 (H) 0 - 220 U/L [facility] Specimen Blood - VENOUS Performing Organization Address [facility]/Zipcode Phone Number [facility] CLIA: [id number] [place], [place] [address] [address] [place] [address] HEPATIC FUNCTION PANEL (16664) (ALB,T.PRO,BILI T,BU/BC,ALT,AST,ALK PHOS) (09/09/2020 8:03 PM CDT) Pathologist Sig nature TOTAL BILI 0.8 0.1 - 1.1 mg/dL [facility] BILI UNCON 0.9 0.1 - 1.1 mg/dL [facility] BILI CONJ 0.0 0.0 - 0.3 mg/dL [facility] T PROTEIN 6.8 6.3 - 8.2 g/dL [facility] ALBUMIN 4.1 3.5 - 5.0 g/dL [facility] ALK PHOS 49 34 - 122 U/L [facility] ALTv 52 (H) 5 - 35 U/L [facility] AST(SGOT) 43 (H) 13 - 40 U/L [facility] Specimen Blood - VENOUS Performing Organization Address [facility]/Zipcode Phone Number [facility] CLIA: [id number] [place], [place] [id number] [address] [place] [address] BASIC METABOLIC PANEL (NA, K, CL, CO2, GLUCOSE, BUN, CREATININE, CA) (09/09/2020 8:03 PM CDT) NA 135 135 - 145 [facility] mmol/L SERVICES K 4.2Comment: 3.5 - 5.0 [facility] Slight hemolysis mmol/L SERVICES CL 103 98 - 108 [facility] mmol/L SERVICES CO2 TOTAL 21 (L) 23 - 31 [facility] mmol/L SERVICES AGAP 11 2 - 16 [facility] SERVICES BUN 2 (L)Comment: 7 - 23 mg/dL [facility] Slight hemolysis SERVICES GLUCOSE 90 70 - 110 [facility] mg/dL SERVICES CREATININE 0.41 (L) 0.50 - 1.04 [facility] mg/dL SERVICES CALCIUM 9.1 8.6 - 10.6 [facility] mg/dL SERVICES eGFR Calculation 183.4 mL/min/1.73m2 [facility] (Non- SERVICES Greenlandic) eGFR Calculation 222.3 mL/min/1.73m2 [facility] () SERVICES Specimen Blood - VENOUS Narrative Performed At Association of Glomerular Filtration Rate (GFR) and St aging [facility] of Kidney Disease* + + +------- ------ + | GFR (mL/min/1.73 m2) | With Kidney Damage | [facility] Kidney Damage + + +------- ------ + [...] . Performing Organization Address City/State/Zipcode Phone Number [facility] CLIA: [id number] [place] [address] [place] [address] CBC WITH DIFF (09/09/2020 8:03 PM CDT) Pathologist Sig nature WBC 8.85 4.30 - 11.10 [facility] 10*3/L SERVICES RBC 4.48 3.93 - 5.25 [facility] 10*6/L SERVICES HGB 13.9 11.6 - 15.0 [facility] g/dL SERVICES HCT 39.3 35.7 - [...] VENOUS Performing Organization Address City/State/Zipcode Phone Number [facility] CLIA: [id number] [place] [address] [place] [address] documented in this encounter Visit Diagnoses Diagnosis [...] Address T e Group Dates ASIA BETANCOURT [id number] 2018-Anupama HIDALGO Medic [place] [id number] MANAGED MEDICAID [place] documented as of this encounter Advance Directives Type Date Recorded Patient Aircraft Powerplant Repairer Explanati on Advance Directives and Living Will Power of Air Crew Supervisor Name Relationship Healthcare Agent Relationship Co mmunication Floyd Holloway Health Care Agent (Work) Preet Coffey Other Health Care Agent (Work) [place] Nicolegamal Spouse First [facility] Agent (Mobile) "
--- OUTSIDE RECORDS SUMMARY | 2020-10-02 11:47 | XMS REPORT | Summary of Care ---
:1990 Author Organization [facility] Address [address] [place] [address] Care Team Providers Name Role Phone Gamal Saravia Insurance Hmo Lauren Fernandez Primary Care Provider Reason for Visit Reason Comments Assessment Encounter Details Date Type Department Care Team Description 09/09/2020 Telephone [facility] RMP- A Cornelius Allen FNP Assessment [address] [facility] [address] [place] [address] [address] [place] [address] [phone] Allergies Active Allergy Reactions Severity Noted Date Comments Ibuprofen Hives 04/15/2014 [place] Hives 04/15/2014 Sodium Citrate (Bulk) Nausea and/or Vomiting 9 documented as of this encounter (statuses as of 09/09/2020) Medications Medication Sig Dispensed Refills Start Date End Date Status vit Take 1 Packet by 30 Each 6 08/03/2020 Active 07-rllz-tsaoq-dha mouth daily. 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 Encounter for IUD removal and [...] 01/25/2015 05/20/2018 Overview: ICD10 Diagnosis Term Technical Sales Manager Utility Breast tenderness in female 01/25/2015 05/20/2018 Not immune to rubella 04/16/2014 06/04/2016 Overview: ICD10 Diagnosis Term Technical Sales Manager Utility documented as of this encounter [...] 10/06/2020 Routine Visit OB Satellites Lauren Fernandez, DIGITAL SALES EXECUTIVE [address] [address] 15 [phone] Health Maintenance Due Date Last Done Comments [...] [facility] Group Dates ASIA BETANCOURT [id number] 2018-Anupama Camacho O BOX Medic [facility] [address] MANAGED MEDICA[place] documented as of this encounter Advance Directives Type Date Recorded 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
--- OUTSIDE RECORDS SUMMARY | 2020-10-02 11:47 | XMS REPORT | Summary of Care ---
:[address] [facility] Address [address] [place] [address] Care Team Providers Name Role Phone Gamal Saravia Insurance Hmo Lauren Fernandez TONGUE AND GROOVE MACHINE FEEDER Primary Care Provider Reason for Visit Reason Comments Other PRIOR AUTH go to [facility] [id number] Encounter Details Date Type Department Care Team Description 09/08/2020 Telephone [facility]- Cornelius Fernandez, Ot her (PRIOR AUTH go [facility] to [facility] [address] [facility] [id number]) [place] [address] [place], [place] [phone] [address] [phone] Allergies Active Allergy Reactions Severity Noted Date Comments Ibuprofen Hives 04/15/2014 [place] Hives 04/15/2014 Sodium Citrate (Bulk) Nausea and/or Vomiting 9 documented as of this encounter (statuses as of 09/09/2020) Medications Medication Sig Dispensed Refills Start Date End Date Status vit Take 1 Packet by 30 Each 6 08/03/2020 Active 18-fczo-iquhv-dha mouth daily. 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 Encounter for IUD removal and reinsertion 01/18/2015 ASCUS on Pap smear 04/15/2014 Estimated Date of Delivery Comments Yes 04/11/2021 Based on Ultrasound, FHT: 127, Transverse Presentation, Placen ta Too early to evaulate documented as of this encounter (statuses as of 09/09/2020) Resolved Problems Problem Noted Date Resolved Date 37 weeks gestation of 12/18/2018 01/08/20 19 [place] Hick's contraction 12/12/2018 01/08/2019 Abnormal maternal glucose [...] management 01/25/2015 05/20/2018 Overview: ICD10 Diagnosis 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 Breast tenderness in female 01/25/2015 05/20/2018 Not immune to rubella 04/16/2014 06/04/2016 Overview: ICD10 Diagnosis 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 documented as of this encounter (statuses [...] 09/08/2020 4:09 PM CDTGo to covermymeds Doxylamine [id number] signed by Leyla Sapp at 09/08/2020 4:13 PM CDT documented in this encounter Plan of Treatment Date Type Specialty Care Team Description 10/06/2020 Routine Visit OB Satellites Lauern Fernandez, TONGUE AND GROOVE MACHINE FEEDER [address] [place], [place] [address] [phone] Health Maintenance Due Date Last Done Comments [...] Address T ype Group Dates ASIA BETANCOURT [id number] 2018-Anupama HIDALGO Medic [place] [address] MANA[place] MEDICA[place] documented as of this encounter Advance Directives Type Date Recorded Patient Adoption Services Manager Explanati on Advance Directives and Living Will Power of Secured Entrance Monitor Name Relationship Healthcare Agent Relationship Co mmunication Floyd Brown [facility] Health Care Agent Preet Coffey Other Health Care Agent [place] Fuentes Spouse [facility] Health Care Agent (Mobile)
--- OUTSIDE RECORDS SUMMARY | 2020-10-02 11:48 | XMS REPORT | Summary of Care ---
:1990 Author Organization [facility] - Health Address [address] [place] [address] Care Team Providers Name Role Phone Gamal Saravia Insurance [employer] Lauren Fernandez Primary Care Provider Encounter Details Date Type Department Care Team Description 09/20/2020 Orders Only [facility] Doctor Unassigned, No [address] [facility] [place] [address] [address] [place] [address] Allergies Active Allergy Reactions Severity Noted Date Comments Ibuprofen Hives 04/15/2014 [place] Hives 04/15/2014 Sodium Citrate (Bulk) Nausea and/or Vomiting 9 documented as of this encounter (statuses as of 09/20/2020) Medications Medication Sig Dispensed Refills Start Date End Date Status vit Take 1 Packet by 30 Each 6 08/03/2020 Active 27-iwij-vovgy-dha mouth daily. 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 Encounter for IUD removal and reinsertion 01/18/2015 ASCUS on Pap smear 04/15/2014 Estimated Date of Delivery Comments Yes 04/11/2021 Based on Ultrasound, FHT: 127, Transverse Presentation, Placen ta Too early to evaulate documented as of this encounter (statuses as of 09/20/2020) Resolved Problems Problem Noted Date Resolved Date 37 weeks gestation of 12/18/2018 01/08/20 19 Glennie Hick's contraction 12/12/2018 01/08/2019 Abnormal maternal glucose [...] management 01/25/2015 05/20/2018 Overview: ICD10 Diagnosis 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 Breast tenderness in female 01/25/2015 05/20/2018 Not immune to rubella 04/16/2014 06/04/2016 Overview: ICD10 Diagnosis 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 documented as of this encounter (statuses [...] 10/06/2020 Routine Visit OB [facility]ell[facility] Lauren Fernandez, LASER BEAM CUTTER [address] [id number] 15 [phone] Health Maintenance Due Date Last Done Comments [...] Address T ype Group Dates ASIA BETANCOURT [id number] 2018-[address]up[address] [place] [id number] MANAGED [place], [place] documented as of this encounter Advance Directives Type Date Recorded 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
[2020-10-02 12:46] LABS: Absolute Lymphocytes (CBC) 1.2 K/uL (0.7-4.9); Basophils % 0.4 % (0-1.3); Hematocrit 39.6 % (36.0-45.0); Lymphocytes % 17.1 % (15.3-44.8); MPV 7.9 fL (7.6-11.3); RBC Red Blood Cell Count 4.53 M/uL (3.86-4.86)
[2020-10-02] MEDS ORDERED: NA CHLORIDE 0.9% 1,000 ML ONE ×2 (12:56→15:04)
[2020-10-02] MEDS ORDERED: PROMETHAZINE INJ 25 MG/ML AMP ONE ×2 (12:56→15:04)
[2020-10-02] MEDS ORDERED: MORPHINE 4 MG/ML SYR ONE ×2 (12:56→17:03)
[2020-10-02 12:58] LABS: BUN Blood Urea Nitrogen 3 mg/dL (7-18); Bicarbonate 21 mmol/L (21-32); Glucose Level 94 mg/dL (74-106); Potassium 3.7 mmol/L (3.5-5.1); Sodium Level 136 mmol/L (136-145)
--- NOTE | 2020-10-02 16:28 | ER ---
Nurse's Notes [facility] Name: Suraj Fuentes Age: 29 yrs Sex: Female : 1990 Arrival Date: 10/02/2020 Time: 11:38 Bed 15 Private MD: Diagnosis: Hyperemesis gravidarum Presentation: 10/02 12:02 Chief complaint: Patient states: vomiting since 0745 this morning, also was having some iw palpitations and chest pain last night , is approx 13 weeks . Coronavirus screen: At this time, the client does not indicate any symptoms associated with coronavirus-19. Ebola Screen: Patient negative for fever greater than or equal to 101.5 degrees Fahrenheit, and additional compatible Ebola Virus Disease symptoms Patient denies exposure to infectious person. Patient denies travel to an Ebola-affected area in the 21 days before illness onset. No symptoms or risks identified at this time. Initial Sepsis Screen: Does the patient meet any 2 criteria? No. Patient's initial sepsis screen is negative. Does the patient have a suspected source of infection? No. Patient's initial sepsis screen is negative. Risk Assessment: Do you want to hurt yourself or someone else? Patient reports no desire to harm self or others. Onset of symptoms was October 02, 2020. 12:02 Method Of Arrival: Wheelchair iw 12:02 Acuity: SHAW 3 iw Historical: - Allergies: 12:04 Ibuprofen; iw 12:04 ORANGES; iw - PMHx: 12:04 hyperemesis gravidarum; Pancreatitis; iw - PSHx: 12:04 ; Appendectomy; iw - Immunization history:: Adult Immunizations. - Social history:: Smoking status: Patient denies any tobacco usage or history of. Screenin:58 Abuse screen: Denies threats or abuse. Denies injuries from another. Nutritional aj1 screening: No deficits noted. Tuberculosis screening: No symptoms or risk factors identified. Assessment: 12:25 General: Appears in no apparent distress. uncomfortable, Behavior is calm, anxious, aj1 crying. Pain: Complains of pain in chest, right lower quadrant and left lower quadrant Pain does not radiate. Pain currently is 8 out of 10 on a pain scale. Neuro: Level of Consciousness is awake, alert, obeys commands, Oriented to person, place, time, situation. Cardiovascular: Reports chest pain, palpitations, Heart tones S1 S2 Patient's skin is warm and dry. Rhythm is regular Chest pain quality is aching. 12:26 Respiratory: Airway is patent Respiratory effort is even, unlabored, Respiratory aj1 pattern is regular, symmetrical, Breath sounds are clear bilaterally. GI: Abdomen is round Bowel sounds present X 4 quads. Abd is soft X 4 quads Abdomen is tender to palpation X 4 quads. Reports nausea, vomiting. 12:58 : No signs and/or symptoms were reported regarding the genitourinary system. Denies aj1 burning with urination, urinary frequency, urgency, vaginal bleeding. EENT: No signs and/or symptoms were reported regarding the EENT system. Derm: Skin is pink, warm \T\ dry. normal. Musculoskeletal: No signs and/or symptoms reported regarding the musculoskeletal system. Circulation, motion, and sensation intact. 13:22 Reassessment: Patient appears in no apparent distress at this time. Patient and/or aj1 family updated on plan of care and expected duration. Pain level reassessed. Patient states symptoms have improved. General: Appears in no apparent distress. comfortable, Behavior is calm, cooperative. Neuro: Level of Consciousness is awake, alert, obeys commands. Cardiovascular: Patient's skin is warm and dry. Respiratory: Airway is patent Respiratory effort is even, unlabored, Respiratory pattern is regular, symmetrical. 14:15 Reassessment: Patient appears in no apparent distress at this time. No changes from aj1 previously documented assessment. Patient and/or family updated on plan of care and expected duration. Pain level reassessed. Patient is alert, oriented x 3, equal unlabored respirations, skin warm/dry/pink. 15:10 Reassessment: Patient appears in no apparent distress at this time. No changes from aj1 previously documented assessment. Patient and/or family updated on plan of care and expected duration. Pain level reassessed. Patient is alert, oriented x 3, equal unlabored respirations, skin warm/dry/pink. 16:15 Reassessment: Patient appears in no apparent distress at this time. No changes from aj1 previously documented assessment. Patient and/or family updated on plan of care and expected duration. Pain level reassessed. Patient is alert, oriented x 3, equal unlabored respirations, skin warm/dry/pink. 16:43 Reassessment: Patient states that her pain is back and she would like more pain aj1 medication. Notified Jimbo Avendaño NP. Vital Signs: 12:02 BP 132 / 75; Pulse 95; Resp 18 S; Pulse Ox 98% on R/A; Weight 79.38 kg; Height 5 ft. 4 iw in. (162.56 cm); Pain 10/10; 13:23 BP 110 / 69; Pulse 88; Resp 20; Pulse Ox 100% on R/A; aj1 14:15 BP 108 / 56; Pulse 73; Resp 18; Pulse Ox 100% on R/A; aj1 15:10 BP 106 / 62; Pulse 80; Resp 18; Pulse Ox 99% on R/A; aj1 12:02 Body Mass Index 30.04 (79.38 kg, 162.56 cm) iw ED Course: 11:38 Patient arrived in ED. ds1 12:04 Triage completed. iw 12:05 Tracee Mcneil RN is Primary Nurse. aj1 12:07 Christian Avendaño NP is PHCP. pm1 12:07 Pancho Greene MD is Attending Physician. pm1 12:45 Inserted saline lock: 22 gauge in left antecubital area, using aseptic technique. ll1 12:58 No provider procedures requiring assistance completed. aj1 12:58 Patient has correct armband on for positive identification. Bed in low position. Call aj1 light in reach. Side rails up X 1. 12:58 Arm band placed on. iw 17:29 IV discontinued, intact, bleeding controlled, No redness/swelling at site. Pressure iw dressing applied. Administered Medications: 12:53 Drug: NS 0.9% 1000 ml Route: IV; Rate: 1000 ml; Site: left antecubital; aj1 12:53 Drug: Phenergan 12.5 mg Route: IVP; Site: left antecubital; aj1 12:53 Drug: morphine 4 mg Route: IVP; Site: left antecubital; aj1 14:56 Drug: Phenergan 12.5 mg Route: IVP; Site: left antecubital; aj1 14:56 Drug: NS 0.9% 1000 ml Route: IV; Rate: 1000 ml; Site: left antecubital; aj1 Outcome: 16:28 Discharge ordered by . pm1 17:29 Discharged to home ambulatory, with family. iw 17:29 Condition: good 17:29 Discharge instructions given to patient, family, Instructed on discharge instructions, follow up and referral plans. 17:29 Patient left the ED. iw Signatures: Tracee Mcneil, RN RN aj1 Natalia Lizarraga ds1 Yuki Cornejo RN RN iw Christian Avendaño, MARY CARMEN ASSEMBLER [employer]NCEMENTS pm1 Bill Hudson, RN RN ll1 Corrections: (The following items were deleted from the chart) 12:26 12:25 Cardiovascular: Reports chest pain, palpitations, Heart tones S1 S2 Patient's aj1 skin is warm and dry. Rhythm is regular aj1 12:58 12:26 GI: Abdomen is round Bowel sounds present X 4 quads. Abd is soft X 4 quads aj1 Abdomen is tender to palpation X 4 quads. Reports nausea, vomiting, aj1 13:23 13:22 Reassessment: Patient appears in no apparent distress at this time. Patient aj1 and/or family updated on plan of care and expected duration. Pain level reassessed. aj1
--- NOTE | 2020-10-02 16:28 | EDPHYS ---
Physician Documentation [facility] Name: Suraj Fuentes Age: 29 yrs Sex: Female : 1990 Arrival Date: 10/02/2020 Time: 11:38 Bed 15 Private MD: ED Physician Pancho Greene HPI: 10/02 12:21 This 29 yrs old Female presents to ER via Wheelchair with complaints of pm1 Nausea/Vomiting, Abdominal Pain. 12:21 The patient presents to the emergency department with nausea, vomiting, abdominal pain. pm1 12:21 Onset: The symptoms/episode began/occurred this morning. Possible causes: . pm1 The symptoms are aggravated by food , The symptoms are alleviated by medications given in the ER. Associated signs and symptoms: Pertinent positives: chest pain and palpitations. Severity of symptoms: in the emergency department the symptoms are unchanged. The patient has experienced similar episodes in the past, multiple times, and the symptoms today are exactly the same, to when the patient was apparently diagnosed with hyperemesis gravidarum. Patient has been seen here in this ER for the same complaint on multiple occasions. Patient is requesting phenergan and morphine for treatment of her abdominal pain, nausea, and vomiting. 12:21 IUP on ultrasound here 09/24/2020. pm1 Historical: - Allergies: 12:04 Ibuprofen; iw 12:04 ORANGES; iw - PMHx: 12:04 hyperemesis gravidarum; Pancreatitis; iw - PSHx: 12:04 ; Appendectomy; iw - Immunization history:: Adult Immunizations. - Social history:: Smoking status: Patient denies any tobacco usage or history of. ROS: 12:21 Constitutional: Negative for fever, chills, and weight loss. pm1 12:21 Respiratory: Negative for shortness of breath, cough, wheezing, and pleuritic chest pain. 12:21 Back: Negative for injury and pain, MS/Extremity: Negative for injury and deformity, Skin: Negative for injury, rash, and discoloration, Neuro: Negative for headache, weakness, numbness, tingling, and seizure. 12:21 Cardiovascular: Positive for chest pain, palpitations, Negative for edema. 12:21 Abdomen/GI: Positive for abdominal pain, nausea and vomiting, Negative for diarrhea, constipation. Exam: 12:21 Constitutional: This is a well developed, well nourished patient who is awake, alert, pm1 and in no acute distress. Head/Face: Normocephalic, atraumatic. Cardiovascular: Regular rate and rhythm with a normal S1 and S2. No gallops, murmurs, or rubs. Normal PMI, no JVD. No pulse deficits. Respiratory: Lungs have equal breath sounds bilaterally, clear to auscultation and percussion. No rales, rhonchi or wheezes noted. No increased work of breathing, no retractions or nasal flaring. 12:21 Back: No spinal tenderness. No costovertebral tenderness. Full range of motion. Skin: Warm, dry with normal turgor. Normal color with no rashes, no lesions, and no evidence of cellulitis. MS/ Extremity: Pulses equal, no cyanosis. Neurovascular intact. Full, normal range of motion. 12:21 Abdomen/GI: Inspection: abdomen appears normal, Palpation: abdomen is soft and non-tender, in all quadrants. 12:21 Neuro: Exam negative for acute changes, Orientation: is normal, Mentation: is normal, Motor: is normal, moves all fours. Vital Signs: 12:02 BP 132 / 75; Pulse 95; Resp 18 S; Pulse Ox 98% on R/A; Weight 79.38 kg; Height 5 ft. 4 iw in. (162.56 cm); Pain 10/10; 13:23 BP 110 / 69; Pulse 88; Resp 20; Pulse Ox 100% on R/A; aj1 14:15 BP 108 / 56; Pulse 73; Resp 18; Pulse Ox 100% on R/A; aj1 15:10 BP 106 / 62; Pulse 80; Resp 18; Pulse Ox 99% on R/A; aj1 12:02 Body Mass Index 30.04 (79.38 kg, 162.56 cm) iw MDM: 12:07 Patient medically screened. pm1 15:06 Data reviewed: vital signs. Data interpreted: Pulse oximetry: on room air is 100 %. pm1 Interpretation: normal. Counseling: I had a detailed discussion with the patient and/or guardian regarding: the historical points, exam findings, and any diagnostic results supporting the discharge/admit diagnosis, lab results, the need for outpatient follow up, an OB/Gyne specialist, to return to the emergency department if symptoms worsen or persist or if there are any questions or concerns that arise at home. 10/02 12:10 Order name: Basic Metabolic Panel; Complete Time: 12:59 pm1 10/02 12:10 Order name: CBC with Diff; Complete Time: 12:52 pm1 10/02 12:10 Order name: IV Saline Lock; Complete Time: 12:53 pm1 10/02 12:10 Order name: Labs collected and sent; Complete Time: 12:53 pm1 Administered Medications: 12:53 Drug: NS 0.9% 1000 ml Route: IV; Rate: 1000 ml; Site: left antecubital; aj1 12:53 Drug: Phenergan 12.5 mg Route: IVP; Site: left antecubital; aj1 12:53 Drug: morphine 4 mg Route: IVP; Site: left antecubital; aj1 14:56 Drug: Phenergan 12.5 mg Route: IVP; Site: left antecubital; aj1 14:56 Drug: NS 0.9% 1000 ml Route: IV; Rate: 1000 ml; Site: left antecubital; aj1 Disposition: 10/03 09:00 Co-signature as Attending Physician, Pancho Greene MD I agree with the assessment and jessica plan of care. Disposition: 10/02/20 16:28 Discharged to Home. Impression: Hyperemesis gravidarum. - Condition is Stable. - Discharge Instructions: Hyperemesis Gravidarum, Eating Plan for Hyperemesis Gravidarum. - Medication Reconciliation Form, Thank You Letter, Antibiotic Education, Prescription Opioid Use form. - Follow up: Emergency Department; When: As needed; Reason: Worsening of condition. Follow up: Private Physician; When: 2 - 3 days; Reason: Recheck today's complaints, Continuance of care, Re-evaluation by your physician. - Problem is new. - Symptoms have improved. Signatures: Dispatcher [employer] Tracee Villaseñor RN RN aj1 Anderson, Corey, MD MD cha Williams, Irene, RN RN iw Marinas, Patrick, MARY CARMEN RRTS pm1 Corrections: (The following items were deleted from the chart) 10/02 16:29 16:28 10/02/2020 16:28 Discharged to Home. Impression: Hyperemesis gravidum. Condition pm1 is Stable. Forms are Medication Reconciliation Form, Thank You Letter, Antibiotic Education, Prescription Opioid Use. Follow up: Emergency Department; When: As needed; Reason: Worsening of condition. Follow up: Private Physician; When: 2 - 3 days; Reason: Recheck today's complaints, Continuance of care, Re-evaluation by your physician. Problem is new. Symptoms have improved. pm1 17:29 16:29 10/02/2020 16:28 Discharged to Home. Impression: Hyperemesis gravidarum. iw Condition is Stable. Discharge Instructions: Hyperemesis Gravidarum, Eating Plan for Hyperemesis Gravidarum. Forms are Medication Reconciliation Form, Thank You Letter, Antibiotic Education, Prescription Opioid Use. Follow up: Emergency Department; When: As needed; Reason: Worsening of condition. Follow up: Private Physician; When: 2 - 3 days; Reason: Recheck today's complaints, Continuance of care, Re-evaluation by your physician. Problem is new. Symptoms have improved. pm1
[2020-10-02 18:00] VITALS: BP 106/62; O2SAT 99
== END 2020-10-02 17:29 | disposition home or self-care (01) ==
LOC: ER 11:37
DX: O21.0 Mild hyperemesis gravidarum (principal); Z3A.13 13 weeks gestation of pregnancy; Z88.6 Allergy status to analgesic agent; Z91.018 Allergy to other foods
CPT/HCPCS: 85025; 80048; 36415; 96375; 96374; 99283; J2550 ×2; J7030 ×2

== ENCOUNTER 2020-10-04 10:58 | Emergency (ER) | payer MEDICAID ==
--- OUTSIDE RECORDS SUMMARY | 2020-10-04 11:18 | XMS REPORT | Continuity of Care Document ---
:1990 Author Organization [facility] t Address [address] [place] [address] Care Team Providers Name Role Phone Doctor Unassigned, Name Attending Clinician Unavailable Shirin FRANKLIN, Keerthi Attending Clinician Kevin FRANKLIN Attending Clinician Akinsisushma WHCNP, C Attending Clinician Jim BUSINESS OFFICE REPRESENTATIVE, R Attending Clinician Kevin FRANKLIN Admitting Clinician [...] ID 2020-09-20 2020-09-20 Orders Doctor EDUARDO [id number] 00:00:00 00:00:00 Only UnassignedSRAVAN [id number] [place] [facility] [id number] 2020-09-09 2020-09-10 [facility] Marcelo Carpio [id number] 19:39:00 16:45:00 Encounter Karlie Brown [id number] [facility] [id number] 2020-09-09 2020-09-09 Telephone Vitaliy [facility] [id number] 00:00:00 00:00:00 Graciela C QUALITY ENGINEER [id number] [facility]AL [id number] MATERNAL [id number] & CHILD 107 [facility] 2020-09-09 2020-09-09 [facility] [id number] 00:00:00 00:00:00 Roshunda R QUALITY ENGINEER [id number] [facility] [id number] MATERNAL [id number] & CHILD 107 [facility] 2020-09-08 2020-09-08 Routine [facility] [id number] 10:23:36 11:14:26 Roshunda R QUALITY ENGINEER [id number] Visit REGIONAL [id number] MATERNAL [id number] & CHILD 107 [facility] [place] 2020-09-08 2020-09-08 [facility] [id number] 00:00:00 00:00:00 Roshunda R QUALITY ENGINEER [id number] [facility] [id number] MATERNAL [id number] & CHILD 107 [facility] [place] 2020-09-07 2020-09-07 [facility] [id number] 00:00:00 00:00:00 Roshunda R QUALITY ENGINEER [id number] REGIONAL [id number] MATERNAL [id number] & CHILD 107 [facility] Results This patient has no known results.
[2020-10-04] MEDS ORDERED: NA CHLORIDE 0.9% 1,000 ML ONE ×2 (13:06→14:44)
[2020-10-04] MEDS ORDERED: ONDANSETRON 4 MG/2 ML VIAL ONE (13:06)
[2020-10-04 13:13] LABS: Absolute Lymphocytes (CBC) 1.8 K/uL (0.7-4.9); Basophils % 0.5 % (0-1.3); Hematocrit 41.2 % (36.0-45.0); Lymphocytes % 21.7 % (15.3-44.8); MPV 7.8 fL (7.6-11.3); RBC Red Blood Cell Count 4.73 M/uL (3.86-4.86)
[2020-10-04 13:55] LABS: ALT/SGPT 19 U/L (12-78); AST/SGOT 14 U/L (15-37); Albumin 3.6 g/dL (3.4-5.0); Alkaline Phosphatase 53 U/L (45-117); BUN Blood Urea Nitrogen 4 mg/dL (7-18); Bicarbonate 22 mmol/L (21-32); Bilirubin Direct 0.1 mg/dL (0-0.2); Bilirubin Total 0.6 mg/dL (0.2-1.0); Glucose Level 82 mg/dL (74-106); HCG, Quantitative 49870 mIU/mL (1-3); Lipase 59 U/L (73-393); Potassium 3.5 mmol/L (3.5-5.1); Protein, Total 7.6 g/dL (6.4-8.2); Sodium Level 136 mmol/L (136-145)
[2020-10-04] MEDS ORDERED: PROMETHAZINE INJ 25 MG/ML AMP ONE (13:58)
--- NOTE | 2020-10-04 14:26 | RAD REPORT ---
EXAM DESCRIPTION: US - OB Limited - 10/04/2020 1:47 pm CLINICAL HISTORY: with abdominal cramping COMPARISON: September 24, 2020 FINDINGS: Single live intrauterine transverse presentation Normal amniotic fluid volume. Placenta is fundal. Cardiac activity 147 beats per minute. Limited evaluation of the cervix due to patient pain Severance-rump length 7.4 centimeters 13 weeks 3 days BPD 2.5 centimeters 14 weeks 1 day FL 1.6 centimeters 14 weeks 4 days The right and left adnexa unremarkable IMPRESSION: Estimated gestational age 14 weeks 0 days DYLAN 04/04/2021 Normal amniotic fluid Transverse presentation If a survey is desired it should be performed in approximately 4 weeks
--- NOTE | 2020-10-04 14:29 | ER ---
Nurse's Notes [facility] Name: Suraj Fuentes Age: 29 yrs Sex: Female : 1990 Arrival Date: 10/04/2020 Time: 11:00 Bed 19 Private MD: Diagnosis: Vomiting; related conditions, unspecified, first trimester; related conditions, unspecified, second trimester Presentation: 10/04 11:22 Chief complaint: Spouse and/or significant other states: : N/V and abdominal ca1 pain and cramping since this morning. 13-14 weeks. Denies vaginal bleeding. Coronavirus screen: Client denies travel out of the [place] in the last 14 days. At this time, the client does not indicate any symptoms associated with coronavirus-19. Ebola Screen: Patient negative for fever greater than or equal to 101.5 degrees Fahrenheit, and additional compatible Ebola Virus Disease symptoms Patient denies exposure to infectious person. Patient denies travel to an Ebola-affected area in the 21 days before illness onset. No symptoms or risks identified at this time. Initial Sepsis Screen: Does the patient meet any 2 criteria? Does the patient have a suspected source of infection?. Risk Assessment: Do you want to hurt yourself or someone else? Patient reports no desire to harm self or others. Onset of symptoms was October 04, 2020. 11:22 Method Of Arrival: Wheelchair ca1 11:22 Acuity: SHAW 2 ca1 Triage Assessment: 13:15 GI: Reports epigastric pain, nausea. 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 - Social history:: Smoking status: Patient denies any tobacco usage or history of. - Family history:: not pertinent. Screenin:51 Abuse screen: Denies threats or abuse. Nutritional screening: No deficits noted. ll2 Tuberculosis screening: No symptoms or risk factors identified. Fall Risk IV access (20 points). Total Chaidez Fall Scale indicates No Risk (0-24 pts). Assessment: 13:00 General: Appears in no apparent distress. uncomfortable, Behavior is cooperative, ll2 appropriate for age. Pain: Complains of pain in left lower quadrant and right lower quadrant and left upper quadrant and right upper quadrant. Neuro: Level of Consciousness is awake, alert, obeys commands, Oriented to person, place, time, situation. Cardiovascular: Patient's skin is warm and dry. Respiratory: Airway is patent Respiratory effort is even, unlabored, Respiratory pattern is regular, symmetrical. GI: Pt is actively vomiting clear fluid. : No signs and/or symptoms were reported regarding the genitourinary system. EENT: No signs and/or symptoms were reported regarding the EENT system. Derm: Skin is intact, is healthy with good turgor, Skin is pink, warm \T\ dry. Musculoskeletal: Circulation, motion, and sensation intact. Range of motion: intact in all extremities. 13:42 Reassessment: pt states nausea is unchanged. erd notified and order for different ll2 medication obtained. 14:30 Reassessment: Pt c/o abdominal pain, requesting morphine, ERD notified, no new orders ll2 received at this time. 14:51 Reassessment: Patient and/or family updated on plan of care and expected duration. Pain ll2 level reassessed. Patient is alert, oriented x 3, equal unlabored respirations, skin warm/dry/pink. erd requested pt to finish fluids before d/c. 15:24 Reassessment: ERD to bedside discussing results and instructed pt to finish fluids ll2 prior to D/C. 16:28 Reassessment: Patient and/or family updated on plan of care and expected duration. Pain ll2 level reassessed. Patient is alert, oriented x 3, equal unlabored respirations, skin warm/dry/pink. Vital Signs: 11:22 BP 115 / 61; Pulse 79; Resp 16 S; Temp 98.1(TE); Pulse Ox 100% on R/A; Weight 81.19 kg ca1 (R); Height 5 ft. 4 in. (162.56 cm) (R); Pain 8/10; 13:00 BP 136 / 81; Pulse 73; Resp 16; Temp 98.0(TE); Pulse Ox 99% on R/A; mh5 14:23 BP 134 / 80; Pulse 77; Resp 18; Pulse Ox 99% on R/A; mh5 15:52 BP 115 / 77; Pulse 65; Resp 16; Pulse Ox 100% on R/A; ll2 11:22 Body Mass Index 30.72 (81.19 kg, 162.56 cm) ca1 ED Course: 11:00 Patient arrived in ED. as 11:24 Triage completed. ca1 11:24 Arm band placed on right wrist. ca1 12:43 Pancho Greene MD is Attending Physician. jessica 12:49 Sera Izquierdo RN is Primary Nurse. ll2 12:50 Initial lab(s) drawn, by me, sent to lab. Inserted saline lock: 22 gauge in right hand, jl7 using aseptic technique. Blood collected. 13:47 US OB Limited In Process Unspecified. EDMS 14:27 Patient has correct armband on for positive identification. Placed in gown. Bed in low mh5 position. Call light in reach. Side rails up X 1. Adult w/ patient. Warm blanket given. Pillow given. quality assurance monitor chassis on. Pulse ox on. NIBP on. 14:29 Michael Carson MD is Referral Physician. jessica 16:29 No provider procedures requiring assistance completed. IV discontinued, intact, ll2 bleeding controlled, No redness/swelling at site. Pressure dressing applied. Administered Medications: 12:52 Drug: Zofran (Ondansetron) 4 mg Route: IVP; Site: right hand; ll2 13:42 Follow up: Response: No adverse reaction; Nausea unchanged ll2 13:54 Drug: Phenergan 12.5 mg Route: IVP; Site: right hand; ll2 14:34 Follow up: Response: No adverse reaction; Vomiting decreased ll2 13:55 Drug: NS 0.9% 1000 ml Route: IV; Rate: 1 bolus; Site: right hand; ll2 15:30 Follow up: Response: No adverse reaction; IV Status: Completed infusion; IV Intake: ll2 1000ml 14:34 Drug: NS 0.9% 1000 ml Route: IV; Rate: 1 bolus; Site: right hand; ll2 16:28 Follow up: Response: No adverse reaction; IV Status: Completed infusion; IV Intake: ll2 1000ml Intake: 15:30 IV: 1000ml; Total: 1000ml. ll2 16:28 IV: 1000ml; Total: 2000ml. ll2 Outcome: 14:29 Discharge ordered by . jessica 16:29 Discharged to home ambulatory. ll2 16:29 Condition: stable 16:29 Discharge instructions given to patient, Instructed on discharge instructions, follow up and referral plans. medication usage, Demonstrated understanding of instructions, follow-up care, medications, Prescriptions given X 2. 16:30 Patient left the ED. ll2 Signatures: Dispatcher [employer] EDME Pancho Greene MD MD cha Martinez, Amelia as Martinez, Maria [facility] Toni Bryant RN RN jl7 Mora Duenas RN RN ca1 Sera Izquierdo RN RN ll2 Corrections: (The following items were deleted from the chart) 13:55 12:52 Zofran (Ondansetron) 4 mg IVP in left forearm ll2 ll2
--- NOTE | 2020-10-04 14:30 | EDPHYS ---
Physician Documentation [facility] Name: Suraj Fuentes Age: 29 yrs Sex: Female : 1990 Arrival Date: 10/04/2020 Time: 11:00 Bed 19 Private MD: ZOYA Physician Pancho Greene HPI: 10/04 13:50 This 29 yrs old Female presents to ER via Wheelchair with complaints of jessica Nausea/Vomiting, Abdominal Pain - 13 wks preg. 13:50 The patient presents to the emergency department with nausea, vomiting, abdominal pain, jessica of the right upper quadrant, left upper quadrant, right lower quadrant and left lower quadrant. Onset: The symptoms/episode began/occurred 3 day(s) ago. Possible causes: . The symptoms are aggravated by nothing. movement, food , The symptoms are alleviated by nothing. remaining still. Associated signs and symptoms: The patient has no apparent associated signs or symptoms. Severity of symptoms: At their worst the symptoms were mild moderate in the emergency department the symptoms are unchanged. The patient has experienced similar episodes in the past, multiple times. 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 - Social history:: Smoking status: Patient denies any tobacco usage or history of. - Family history:: not pertinent. ROS: 13:50 Constitutional: Negative for fever, chills, and weight loss, Eyes: Negative for injury, jessica pain, redness, and discharge, ENT: Negative for injury, pain, and discharge, Neck: Negative for injury, pain, and swelling, Cardiovascular: Negative for chest pain, palpitations, and edema, Respiratory: Negative for shortness of breath, cough, wheezing, and pleuritic chest pain, Back: Negative for injury and pain, : Negative for injury, bleeding, discharge, and swelling, MS/Extremity: Negative for injury and deformity, Skin: Negative for injury, rash, and discoloration, Neuro: Negative for headache, weakness, numbness, tingling, and seizure, Psych: Negative for depression, anxiety, suicide ideation, homicidal ideation, and hallucinations, Allergy/Immunology: Negative for hives, rash, and allergies, Endocrine: Negative for neck swelling, polydipsia, polyuria, polyphagia, and marked weight changes, Hematologic/Lymphatic: Negative for swollen nodes, abnormal bleeding, and unusual bruising. 13:50 Abdomen/GI: Positive for abdominal pain, nausea and vomiting, abdominal cramps. Exam: 13:50 Constitutional: This is a well developed, well nourished patient who is awake, alert, jessica and in no acute distress. Head/Face: Normocephalic, atraumatic. Eyes: Pupils equal round and reactive to light, extra-ocular motions intact. Lids and lashes normal. Conjunctiva and sclera are non-icteric and not injected. Cornea within normal limits. Periorbital areas with no swelling, redness, or edema. ENT: Nares patent. No nasal discharge, no septal abnormalities noted. Tympanic membranes are normal and external auditory canals are clear. Oropharynx with no redness, swelling, or masses, exudates, or evidence of obstruction, uvula midline. Mucous membranes moist. Neck: Trachea midline, no thyromegaly or masses palpated, and no cervical lymphadenopathy. Supple, full range of motion without nuchal rigidity, or vertebral point tenderness. No Meningismus. Chest/axilla: Normal chest wall appearance and motion. Nontender with no deformity. No lesions are appreciated. Cardiovascular: Regular rate and rhythm with a normal S1 and S2. No gallops, murmurs, or rubs. Normal PMI, no JVD. No pulse deficits. Respiratory: Lungs have equal breath sounds bilaterally, clear to auscultation and percussion. No rales, rhonchi or wheezes noted. No increased work of breathing, no retractions or nasal flaring. Abdomen/GI: Soft, non-tender, with normal bowel sounds. No distension or tympany. No guarding or rebound. No evidence of tenderness throughout. Back: No spinal tenderness. No costovertebral tenderness. Full range of motion. Skin: Warm, dry with normal turgor. Normal color with no rashes, no lesions, and no evidence of cellulitis. MS/ Extremity: Pulses equal, no cyanosis. Neurovascular intact. Full, normal range of motion. Neuro: Awake and alert, GCS 15, oriented to person, place, time, and situation. Cranial nerves II-XII grossly intact. Motor strength 5/5 in all extremities. Sensory grossly intact. Cerebellar exam normal. Normal gait. Vital Signs: 11:22 BP 115 / 61; Pulse 79; Resp 16 S; Temp 98.1(TE); Pulse Ox 100% on R/A; Weight 81.19 kg ca1 (R); Height 5 ft. 4 in. (162.56 cm) (R); Pain 8/10; 13:00 BP 136 / 81; Pulse 73; Resp 16; Temp 98.0(TE); Pulse Ox 99% on R/A; mh5 14:23 BP 134 / 80; Pulse 77; Resp 18; Pulse Ox 99% on R/A; mh5 15:52 BP 115 / 77; Pulse 65; Resp 16; Pulse Ox 100% on R/A; ll2 11:22 Body Mass Index 30.72 (81.19 kg, 162.56 cm) ca1 MDM: 12:43 Patient medically screened. [facility] 13:52 Differential diagnosis: Nonspecific abd pain, cholecystitis, pancreatitis, viral jessica gastroenteritis, gastroenteritis. Data reviewed: vital signs, nurses notes, lab test result(s), radiologic studies, ultrasound. Data interpreted: conveyor monitor: rate is 79 beats/min, rhythm is regular, Pulse oximetry: on room air is 100 %. Counseling: I had a detailed discussion with the patient and/or guardian regarding: the historical points, exam findings, and any diagnostic results supporting the discharge/admit diagnosis, lab results, the need for outpatient follow up, for definitive care, an OB/Gyne specialist. 10/04 12:48 Order name: Quantitative Hcg; Complete Time: 14: [facility] 10/04 12:48 Order name: Abo/rh Typing; Complete Time: 14: [facility] 10/04 12:48 Order name: Basic Metabolic Panel; Complete Time: 14: [facility] 10/04 12:48 Order name: CBC with Diff; Complete Time: : [facility] 10/04 12:48 Order name: LFT's; Complete Time: 14: [facility] 10/04 12:48 Order name: Lipase; Complete Time: 14: [facility] 10/04 12:48 Order name: IV Saline Lock; Complete Time: 14: [facility] 10/04 12:48 Order name: Labs collected and sent; Complete Time: 14: [facility] 10/04 12:48 Order name: US OB Limited; Complete Time: 14: [facility] 10/04 12:48 Order name: NPO; Complete Time: : [facility] Administered Medications: 12:52 Drug: Zofran (Ondansetron) 4 mg Route: IVP; Site: right hand; ll2 13:42 Follow up: Response: No adverse reaction; Nausea unchanged ll2 13:54 Drug: Phenergan 12.5 mg Route: IVP; Site: right hand; ll2 14:34 Follow up: Response: No adverse reaction; Vomiting decreased ll2 13:55 Drug: NS 0.9% 1000 ml Route: IV; Rate: 1 bolus; Site: right hand; ll2 15:30 Follow up: Response: No adverse reaction; IV Status: Completed infusion; IV Intake: ll2 1000ml 14:34 Drug: NS 0.9% 1000 ml Route: IV; Rate: 1 bolus; Site: right hand; ll2 16:28 Follow up: Response: No adverse reaction; IV Status: Completed infusion; IV Intake: ll2 1000ml Disposition: 10/04/20 14:29 Discharged to Home. Impression: Vomiting, related conditions, unspecified, first trimester, related conditions, unspecified, second trimester. - Condition is Stable. - Discharge Instructions: Hyperemesis Gravidarum, Nausea and Vomiting, Adult, First Trimester of , Kaaf-vl-Ibow, Nausea and Vomiting, Adult, Jwuq-by-Vngf, First Trimester of , Abdominal Pain During , Jqsz-lq-Sjoc, Pelvic Rest. - Prescriptions for Vitamin 27- 0.8 mg Oral Tablet - take 1 tablet by ORAL route once daily; 30 tablet. Zofran 4 mg Oral Tablet - take 1 tablet by ORAL route every 12 hours As needed; 20 tablet. Phenergan 25 mg Rectal Suppository - insert 1 suppository by RECTAL route every 6 hours As needed; 12 suppository. - Medication Reconciliation Form, Thank You Letter, Antibiotic Education, Prescription Opioid Use form. - Follow up: Private Physician; When: 2 - 3 days; Reason: Recheck today's complaints, Continuance of care, Re-evaluation by your physician. Follow up: Michael Carson; When: 2 - 3 days; Reason: Recheck today's complaints, Continuance of care, Re-evaluation by your physician. - Problem is new. - Symptoms have improved. Signatures: Dispatcher [employer] EDMS Pancho Greene MD MD cha Acob, Cheryl, RN RN ca1 Sera Izquierdo RN RN ll2 Corrections: (The following items were deleted from the chart) 16:30 14:29 10/04/2020 14:29 Discharged to Home. Impression: Vomiting; related ll2 conditions, unspecified, first trimester; related conditions, unspecified, second trimester. Condition is Stable. Discharge Instructions: Hyperemesis Gravidarum, Nausea and Vomiting, Adult, First Trimester of , Tkrv-pb-Urem, Nausea and Vomiting, Adult, Xsta-ty-Mtvg, First Trimester of , Abdominal Pain During , Efbb-le-Smnc, Pelvic Rest. Prescriptions for Vitamin 27-0.8 mg Oral Tablet - take 1 tablet by ORAL route once daily; 30 tablet, Zofran 4 mg Oral Tablet - take 1 tablet by ORAL route every 12 hours As needed; 20 tablet, Phenergan 25 mg Rectal Suppository - insert 1 suppository by RECTAL route every 6 hours As needed; 12 suppository. and Forms are Medication Reconciliation Form, Thank You Letter, Antibiotic Education, Prescription Opioid Use. Follow up: Private Physician; When: 2 - 3 days; Reason: Recheck today's complaints, Continuance of care, Re-evaluation by your physician. Follow up: Michael Carson; When: 2 - 3 days; Reason: Recheck today's complaints, Continuance of care, Re-evaluation by your physician. Problem is new. Symptoms have improved. jessica
[2020-10-04 17:54] VITALS: TEMP 98
[2020-10-04 17:57] VITALS: BP 115/77; O2SAT 100
== END 2020-10-04 16:30 | disposition home or self-care (01) ==
LOC: ER 10:58
DX: O21.0 Mild hyperemesis gravidarum (principal); Z3A.13 13 weeks gestation of pregnancy; Z88.6 Allergy status to analgesic agent; Z91.018 Allergy to other foods
CPT/HCPCS: 96361; 85025; 80048; 36415; 86900; 86901; 80076; 84702; 83690; 76815; 96375; 96374; 99284; J2550; J7030 ×2; J2405

== ENCOUNTER 2020-10-06 02:27 | Emergency (ER) | payer MEDICAID ==
--- OUTSIDE RECORDS SUMMARY | 2020-10-06 02:29 | XMS REPORT | Continuity of Care Document ---
:1990 Author Organization [facility] t Address [address] [place] [address] Care Team Providers Name Role Phone Doctor Unassigned, Name Attending Clinician Unavailable Shirin FRANKLIN, Keerthi Attending Clinician Kevin FRANKLIN Attending Clinician Akinsisushma WHCNP, C Attending Clinician Jim MINE WEDGE SAWYER, R Attending Clinician Kevin FRANKLIN Admitting Clinician [...] ID 2020-09-20 2020-09-20 Orders Doctor EDUARDO [id number] 00:00:00 00:00:00 Only UnassignedSRAVAN [id number] [place] [facility] [id number] 2020-09-09 2020-09-10 [facility] Marcelo Carpio [id number] 19:39:00 16:45:00 Encounter Karlie Brown [id number] [facility] [id number] 2020-09-09 2020-09-[address] [facility] [id number] 00:00:00 00:00:00 Graciela C JUNIOR BUSINESS ANALYST [id number] REGIONAL [id number] MATERNAL [id number] & CHILD 107 [facility] 2020-09-09 2020-09-09 [place] [facility] [id number] 00:00:00 00:00:00 Roshunda R JUNIOR BUSINESS ANALYST [id number] [facility] [id number] MATERNAL [id number] & CHILD 107 [facility] 2020-09-08 2020-09-08 Routine [facility] [id number] 10:23:36 11:14:26 Roshunda R JUNIOR BUSINESS ANALYST [id number] Visit REGIONAL [id number] MATERNAL [id number] & CHILD 107 [facility] 2020-09-08 2020-09-08 [place] [facility] [id number] 00:00:00 00:00:00 Roshunda R JUNIOR BUSINESS ANALYST [id number] [facility] [id number] MATERNAL [id number] & CHILD 107 [facility] 2020-09-07 2020-09-07 [place] [facility] [id number] 00:00:00 00:00:00 Roshunda R JUNIOR BUSINESS ANALYST [id number] REGIONAL [id number] MATERNAL [id number] & CHILD 107 [facility] Results This patient has no known results.
[2020-10-06] MEDS ORDERED: PROMETHAZINE INJ 25 MG/ML AMP ONE (03:39)
[2020-10-06] MEDS ORDERED: MORPHINE 2 MG/ML SYR ONE (03:40)
[2020-10-06] MEDS ORDERED: NA CHLORIDE 0.9% 1,000 ML ONE ×2 (03:40→04:58)
[2020-10-06] MEDS ORDERED: ONDANSETRON 4 MG/2 ML VIAL ONE (04:51)
--- NOTE | 2020-10-06 05:01 | ER ---
Nurse's Notes [facility] Name: Suraj Fuentes Age: 29 yrs Sex: Female : 1990 Arrival Date: 10/06/2020 Time: 02:28 Bed 4 Private MD: Diagnosis: Dehydration;Hyperemesis gravidarum with metabolic disturbance Presentation: 10/06 02:50 Chief complaint: Patient states: she is having abdominal pain and vomiting starting bb about an hour ago pt is 13 weeks takes Zofran and phenergan but nothing is working. Coronavirus screen: At this time, the client does not indicate any symptoms associated with coronavirus-19. Ebola Screen: No symptoms or risks identified at this time. Initial Sepsis Screen: Does the patient meet any 2 criteria? No. Patient's initial sepsis screen is negative. Does the patient have a suspected source of infection? No. Patient's initial sepsis screen is negative. Risk Assessment: Do you want to hurt yourself or someone else? Patient reports no desire to harm self or others. Onset of symptoms was October 06, 2020. 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 - Social history:: Smoking status: Patient denies any tobacco usage or history of. Patient/guardian denies using alcohol. - Family history:: not pertinent. - Hospitalizations: : No recent hospitalization is reported. Screenin:33 Abuse screen: Denies threats or abuse. Denies injuries from another. Nutritional rr5 screening: No deficits noted. Tuberculosis screening: No symptoms or risk factors identified. Fall Risk IV access (20 points). Total Chaidez Fall Scale indicates No Risk (0-24 pts). Assessment: 03:15 General: Appears in no apparent distress. uncomfortable, Behavior is crying. Pain: rr5 Complains of pain in abdomen Pain currently is 10 out of 10 on a pain scale. Quality of pain is described as aching, Pain began gradually, Is intermittent. Neuro: Level of Consciousness is awake, alert, obeys commands, Oriented to person, place, time. Cardiovascular: Capillary refill < 3 seconds Patient's skin is warm and dry. Respiratory: Airway is patent Respiratory effort is even, unlabored, Respiratory pattern is regular, symmetrical. GI: Abdomen is round non-distended, Abd is soft and non tender Reports lower abdominal pain, upper abdominal pain, nausea, vomiting. : No signs and/or symptoms were reported regarding the genitourinary system. EENT: No signs and/or symptoms were reported regarding the EENT system. Derm: Skin is intact, is healthy with good turgor, Skin temperature is warm. Musculoskeletal: Capillary refill < 3 seconds. 04:10 Reassessment: Patient appears in no apparent distress at this time. Patient is alert, rr5 oriented x 3, equal unlabored respirations, skin warm/dry/pink. reassess by ED provider with order made and carried out. 05:09 Reassessment: Patient is alert, oriented x 3, equal unlabored respirations, skin bb warm/dry/pink. pt and family verbalized understanding of and agree to plan of care discharge instructions given pt ambulated with steady gait to exit accompanied by family. Vital Signs: 02:50 BP 138 / 79; Pulse 85; Resp 18; Temp 97.9; Pulse Ox 98% on R/A; Weight 81.19 kg (R); bb Height 5 ft. 4 in. (162.56 cm) (R); Pain 10/10; 04:00 BP 126 / 85; Pulse 80; Resp 16; Pulse Ox 99% ; rr5 05:10 BP 122 / 86; Pulse 83; Resp 14 S; Temp 98.3(O); Pulse Ox 99% on R/A; rr5 02:50 Body Mass Index 30.72 (81.19 kg, 162.56 cm) bb ED Course: 02:28 Patient arrived in ED. cl3 02:53 Triage completed. bb 02:53 Arm band placed on Patient placed in an exam room, on a stretcher, on pulse oximetry. bb Family accompanied patient. 02:58 Zane Herring MD is Attending Physician. rn 03:08 Chan, Kenroy, RN is Primary Nurse. rr5 03:15 Patient has correct armband on for positive identification. Placed in gown. Bed in low rr5 position. Call light in reach. 03:33 Inserted saline lock: 22 gauge in left wrist, using aseptic technique. rr5 05:11 No provider procedures requiring assistance completed. IV discontinued, intact, bb bleeding controlled, No redness/swelling at site. Pressure dressing applied. Administered Medications: 03:30 Not Given (Duplicate Order): morphine 2 mg IVP once; RASS on ADMIN: Combtv4, Very rn Agttd3, Agttd2, Rstlss1, AlertClm0, Drwsy-1, Lt Sdtn-2, Mod Sdtn-3, Dp Sdtn-4, UnArsble-5 03:35 Drug: NS 0.9% 1000 ml Route: IV; Rate: 1000 ml; Site: left wrist; rr5 03:40 Drug: Phenergan 25 mg Route: IVP; Site: left wrist; rr5 04:43 Follow up: Response: No adverse reaction rr5 03:43 Drug: morphine 2 mg {Note: rass 0.} Route: IVP; Site: left wrist; rr5 04:43 Follow up: Response: No adverse reaction rr5 04:43 Drug: Zofran (Ondansetron) 4 mg Route: IVP; Site: left wrist; rr5 05:12 Follow up: Response: No adverse reaction bb 04:45 Drug: NS 0.9% 1000 ml Route: IV; Rate: 1000 ml; Site: left wrist; rr5 05:00 Follow up: IV Status: Order to discontinue infusion; IV Intake: 200ml bb Intake: 05:00 IV: 200ml; Total: 200ml. bb Outcome: 05:00 Discharge ordered by . rn 05:11 Discharged to home ambulatory, with family. bb 05:11 Condition: stable 05:11 Discharge instructions given to patient, Instructed on discharge instructions, follow up and referral plans. 05:12 Patient left the ED. bb Signatures: Mercy Saini RN RN bb Zane Herring MD MD rn Roque, Raymond, RN RN rr5 Sanya Hudson cl3 Corrections: (The following items were deleted from the chart) 05:20 05:10 BP 122 / 8; Pulse 83bpm; Resp 14bpm; Spontaneous; Pulse Ox 99% RA; Temp 98.3F rr5 Oral; bb
--- NOTE | 2020-10-06 05:01 | EDPHYS ---
Physician Documentation [facility] Name: Suraj Fuentes Age: 29 yrs Sex: Female : 1990 Arrival Date: 10/06/2020 Time: 02:28 Bed 4 Private MD: ED Physician Zane Herring HPI: 10/06 03:22 This 29 yrs old Female presents to ER via Wheelchair with complaints of rn Abdominal Pain, Nausea/Vomiting. 03:22 The patient presents to the emergency department with nausea, vomiting, abdominal pain. rn Onset: The symptoms/episode began/occurred at an unknown time. Possible causes: . The symptoms are aggravated by pressure, The symptoms are alleviated by nothing. Associated signs and symptoms: Pertinent positives: abdominal pain, nausea, vomiting, Pertinent negatives: GI bleeding, vaginal discharge. Severity of symptoms: At their worst the symptoms were moderate in the emergency department the symptoms are unchanged. The patient has experienced similar episodes in the past. The patient has been recently seen at the [facility] Emergency Department. 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 - Social history:: Smoking status: Patient denies any tobacco usage or history of. Patient/guardian denies using alcohol. - Family history:: not pertinent. - Hospitalizations: : No recent hospitalization is reported. ROS: 03:22 Constitutional: Negative for fever, chills, and weight loss, Eyes: Negative for injury, rn pain, redness, and discharge, Neck: Negative for injury, pain, and swelling, Cardiovascular: Negative for chest pain, palpitations, and edema, Respiratory: Negative for shortness of breath, cough, wheezing, and pleuritic chest pain, Abdomen/GI: Negative for diarrhea, and constipation, Back: Negative for injury and pain, : Negative for injury, bleeding, discharge, and swelling, MS/Extremity: Negative for injury and deformity, Skin: Negative for injury, rash, and discoloration, Neuro: Negative for headache, weakness, numbness, tingling, and seizure. Exam: 03:37 Constitutional: This is a well developed, well nourished patient who is awake, alert, rn spitting into emesis bag Head/Face: Normocephalic, atraumatic. Eyes: Pupils equal round and reactive to light, extra-ocular motions intact. Lids and lashes normal. Conjunctiva and sclera are non-icteric and not injected. Cornea within normal limits. Periorbital areas with no swelling, redness, or edema. Cardiovascular: Regular rate and rhythm. No pulse deficits. Respiratory: No increased work of breathing, no retractions or nasal flaring. Abdomen/GI: soft, mild lower abd tenderness, no rebound Skin: Warm, dry MS/ Extremity: Pulses equal, no cyanosis. Neurovascular intact. Full, normal range of motion. Equal circumference. Neuro: Awake and alert, GCS 15 Vital Signs: 02:50 BP 138 / 79; Pulse 85; Resp 18; Temp 97.9; Pulse Ox 98% on R/A; Weight 81.19 kg (R); bb Height 5 ft. 4 in. (162.56 cm) (R); Pain 10/10; 04:00 BP 126 / 85; Pulse 80; Resp 16; Pulse Ox 99% ; rr5 05:10 BP 122 / 86; Pulse 83; Resp 14 S; Temp 98.3(O); Pulse Ox 99% on R/A; rr5 02:50 Body Mass Index 30.72 (81.19 kg, 162.56 cm) bb MDM: 02:58 Patient medically screened. rn 04:57 Differential diagnosis: reflux, hyperemesis gravidarum. Data reviewed: vital signs, rn nurses notes, old medical records, and as a result, I will discharge patient. Counseling: I had a detailed discussion with the patient and/or guardian regarding: the historical points, exam findings, and any diagnostic results supporting the discharge/admit diagnosis, the need for outpatient follow up, to return to the emergency department if symptoms worsen or persist or if there are any questions or concerns that arise at home. Response to treatment: the patient's symptoms have markedly improved after treatment, and as a result, I will discharge patient. Special discussion: I discussed with the patient/guardian in detail that at this point there is no indication for admission to the hospital. It is understood, however, that if the symptoms persist or worsen the patient needs to return immediately for re-evaluation. ED course: Pt has had appendix removed, improved symptoms, afebrile, sleeping comfortably. . 10/06 03:19 Order name: IV Start; Complete Time: 03:43 rn Administered Medications: 03:30 Not Given (Duplicate Order): morphine 2 mg IVP once; RASS on ADMIN: Combtv4, Very rn Agttd3, Agttd2, Rstlss1, AlertClm0, Drwsy-1, Lt Sdtn-2, Mod Sdtn-3, Dp Sdtn-4, UnArsble-5 03:35 Drug: NS 0.9% 1000 ml Route: IV; Rate: 1000 ml; Site: left wrist; rr5 03:40 Drug: Phenergan 25 mg Route: IVP; Site: left wrist; rr5 04:43 Follow up: Response: No adverse reaction rr5 03:43 Drug: morphine 2 mg {Note: rass 0.} Route: IVP; Site: left wrist; rr5 04:43 Follow up: Response: No adverse reaction rr5 04:43 Drug: Zofran (Ondansetron) 4 mg Route: IVP; Site: left wrist; rr5 05:12 Follow up: Response: No adverse reaction 04:45 Drug: NS 0.9% 1000 ml Route: IV; Rate: 1000 ml; Site: left wrist; rr5 05:00 Follow up: IV Status: Order to discontinue infusion; IV Intake: 200ml bb Disposition: 10/06/20 05:00 Discharged to Home. Impression: Dehydration, Hyperemesis gravidarum with metabolic disturbance. - Condition is Stable. - Discharge Instructions: Dehydration, Adult, Hyperemesis Gravidarum. - Medication Reconciliation Form, Thank You Letter, Antibiotic Education, Prescription Opioid Use form. - Follow up: Private Physician; When: As needed; Reason: Recheck today's complaints, Re-evaluation by your physician. - Problem is an ongoing problem. - Symptoms have improved. Signatures: Mercy Saini RN RN Zane Giron MD MD rn Roque, Raymond, RN RN rr5 Corrections: (The following items were deleted from the chart) 03:38 03:22 Constitutional: Negative for fever, chills, and weight loss, Eyes: Negative for rn injury, pain, redness, and discharge, Cardiovascular: Negative for chest pain, palpitations, and edema, Respiratory: Negative for shortness of breath, cough, wheezing, and pleuritic chest pain, Abdomen/GI: Negative for abdominal pain, nausea, vomiting, diarrhea, and constipation, rn 05:12 05:00 10/06/2020 05:00 Discharged to Home. Impression: Dehydration; Hyperemesis bb gravidarum with metabolic disturbance. Condition is Stable. Forms are Medication Reconciliation Form, Thank You Letter, Antibiotic Education, Prescription Opioid Use. Follow up: Private Physician; When: As needed; Reason: Recheck today's complaints, Re-evaluation by your physician. Problem is an ongoing problem. Symptoms have improved. rn
[2020-10-06 05:20] VITALS: BP 122/8; TEMP 98.3; O2SAT 99
== END 2020-10-06 05:12 | disposition home or self-care (01) ==
LOC: ER 02:27
DX: O21.1 Hyperemesis gravidarum with metabolic disturbance (principal); E86.0 Dehydration; Z3A.13 13 weeks gestation of pregnancy; Z88.5 Allergy status to narcotic agent; Z88.6 Allergy status to analgesic agent; Z91.018 Allergy to other foods
CPT/HCPCS: 96375; 96374; 99283; J2550; J2270; J7030 ×2; J2405

== ENCOUNTER 2020-10-07 10:20 | Emergency (ER) | payer MEDICAID ==
--- OUTSIDE RECORDS SUMMARY | 2020-10-07 10:23 | XMS REPORT | Continuity of Care Document ---
:1990 Author Organization [facility] t Address [address] [place] [address] Care Team Providers Name Role Phone Doctor Unassigned, Name Attending Clinician Unavailable Shirin FRANKLIN, Keerthi Attending Clinician Kevin FRANKLIN Attending Clinician Akinsisushma WHCNP, C Attending Clinician Jim SOFTWARE DEVELOPER MID LEVEL, R Attending Clinician Kevin FRANKLIN Admitting Clinician [...] ID 2020-09-20 2020-09-20 Orders Doctor EDUARDO [id number] 00:00:00 00:00:00 Only UnassignedSRAVAN [id number] [place] [facility] [id number] 2020-09-09 2020-09-10 [facility] Marcelo Carpio [id number] 19:39:00 16:45:00 Encounter Karlie Brown [id number] [facility] [id number] 2020-09-09 2020-09-09 Telephone Vitaliy [facility] [id number] 00:00:00 00:00:00 Graciela C 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 PRESS OPERATOR [id number] [facility] [id number] MATERNAL [id number] & CHILD 107 [facility] 2020-09-09 2020-09-09 [place] [facility] [id number] 00:00:00 00:00:00 Roshunda R BELT PRESS OPERATOR [id number] [facility] [id number] MATERNAL [id number] & CHILD 107 [facility] 2020-09-08 2020-09-08 Routine [facility] [id number] 10:23:36 11:14:26 Roshunda R BELT PRESS OPERATOR [id number] Visit REGIONAL [id number] MATERNAL [id number] & CHILD 107 [facility] 2020-09-08 2020-09-08 [place] [facility] [id number] 00:00:00 00:00:00 Roshunda R BELT PRESS OPERATOR [id number] [facility] [id number] MATERNAL [id number] & CHILD 107 [facility] 2020-09-07 2020-09-07 [place] [facility] [id number] 00:00:00 00:00:00 Roshunda R BELT PRESS OPERATOR [id number] [facility] [id number] MATERNAL [id number] & CHILD 107 [facility] Results This patient has no known results.
[2020-10-07] MEDS ORDERED: ONDANSETRON 4 MG/2 ML VIAL ONE (12:23)
[2020-10-07] MEDS ORDERED: NA CHLORIDE 0.9% 2,000 ML ONE (12:23)
[2020-10-07 13:19] LABS: ALT/SGPT 20 U/L (12-78); AST/SGOT 10 U/L (15-37); Albumin 3.7 g/dL (3.4-5.0); Alkaline Phosphatase 54 U/L (45-117); BUN Blood Urea Nitrogen 4 mg/dL (7-18); Bicarbonate 26 mmol/L (21-32); Bilirubin Direct 0.1 mg/dL (0-0.2); Bilirubin Total 0.6 mg/dL (0.2-1.0); Glucose Level 80 mg/dL (74-106); Lipase 56 U/L (73-393); Potassium 3.5 mmol/L (3.5-5.1); Protein, Total 7.8 g/dL (6.4-8.2); Sodium Level 135 mmol/L (136-145)
[2020-10-07 13:21] LABS: Absolute Lymphocytes (CBC) 1.5 K/uL (0.7-4.9); Basophils % 0.2 % (0-1.3); Hematocrit 40.7 % (36.0-45.0); Lymphocytes % 19.1 % (15.3-44.8); RBC Red Blood Cell Count 4.66 M/uL (3.86-4.86)
--- NOTE | 2020-10-07 13:29 | ER ---
Nurse's Notes [facility] Name: Suraj Fuentes Age: 29 yrs Sex: Female : 1990 Arrival Date: 10/07/2020 Time: 10:23 Bed 13 Private MD: Diagnosis: Vomiting of , unspecified; related conditions, unspecified, first trimester; related conditions, unspecified, second trimester Presentation: 10/07 10:32 Chief complaint: Patient states: n/v since this morning, no abd pain, took her zofran, iw benadryl and Phenergan tried to eat crackers and Pedialyte , is approx 13 weeks . Coronavirus screen: At this time, the client does not indicate any symptoms associated with coronavirus-19. Ebola Screen: Patient negative for fever greater than or equal to 101.5 degrees Fahrenheit, and additional compatible Ebola Virus Disease symptoms Patient denies exposure to infectious person. Patient denies travel to an Ebola-affected area in the 21 days before illness onset. No symptoms or risks identified at this time. Initial Sepsis Screen: Does the patient meet any 2 criteria? No. Patient's initial sepsis screen is negative. Does the patient have a suspected source of infection? No. Patient's initial sepsis screen is negative. Risk Assessment: Do you want to hurt yourself or someone else? Patient reports no desire to harm self or others. Onset of symptoms was October 07, 2020. 10:32 Method Of Arrival: Wheelchair iw 10:32 Acuity: SHAW 3 iw Triage Assessment: 13:40 GI: Reports. 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 - Social history:: Smoking status: . - Family history:: not pertinent. Screenin:15 Abuse screen: Denies threats or abuse. Denies injuries from another. Nutritional ca1 screening: No deficits noted. Tuberculosis screening: No symptoms or risk factors identified. Fall Risk IV access (20 points). Assessment: 11:15 General: Appears in no apparent distress. comfortable, Behavior is calm, cooperative, ca1 appropriate for age. Pain: Denies pain. Neuro: Level of Consciousness is awake, alert, obeys commands, Oriented to person, place, time, situation. Cardiovascular: Heart tones S1 S2 present Capillary refill < 3 seconds Patient's skin is warm and dry. Respiratory: Airway is patent Respiratory effort is even, unlabored, Respiratory pattern is regular, symmetrical, Breath sounds are clear bilaterally. GI: Abdomen is round non-distended, Bowel sounds present X 4 quads. Abd is soft and non tender X 4 quads. : No signs and/or symptoms were reported regarding the genitourinary system. EENT: No signs and/or symptoms were reported regarding the EENT system. Derm: Skin is intact, is healthy with good turgor, Skin is pink, warm \T\ dry. Musculoskeletal: Circulation, motion, and sensation intact. Capillary refill < 3 seconds. 12:15 Reassessment: Patient appears in no apparent distress at this time. Patient and/or ca1 family updated on plan of care and expected duration. Pain level reassessed. Patient is alert, oriented x 3, equal unlabored respirations, skin warm/dry/pink. 13:10 Reassessment: Patient appears in no apparent distress at this time. Patient and/or ca1 family updated on plan of care and expected duration. Pain level reassessed. Patient is alert, oriented x 3, equal unlabored respirations, skin warm/dry/pink. 14:18 Reassessment: Patient appears in no apparent distress at this time. Patient is alert, ca1 oriented x 3, equal unlabored respirations, skin warm/dry/pink. Patient states feeling better. Patient states symptoms have improved. Vital Signs: 10:32 BP 97 / 77; Pulse 96; Resp 18; Temp 97.6; Pulse Ox 100% on R/A; Weight 81.19 kg; Height iw 5 ft. 4 in. (162.56 cm); 12:10 BP 101 / 64; Pulse 71; Resp 16 S; Pulse Ox 100% on R/A; ca1 13:05 BP 116 / 58; Pulse 67; Resp 16 S; Pulse Ox 100% on R/A; ca1 14:18 BP 125 / 75; Pulse 71; Resp 16 S; Pulse Ox 100% on R/A; ca1 10:32 Body Mass Index 30.72 (81.19 kg, 162.56 cm) iw ED Course: 10:23 Patient arrived in ED. as 10:33 Triage completed. iw 10:33 Arm band placed on. iw 11:09 Yuki Cornejo, RN is Primary Nurse. iw 11:15 Pancho Greene MD is Attending Physician. jessica 11:15 Patient has correct armband on for positive identification. Placed in gown. Bed in low ca1 position. Call light in reach. Side rails up X2. Pulse ox on. NIBP on. Warm blanket given. 12:02 Primary Nurse role handed off by Yuki Cornejo, RN ca1 12:02 Mora Duenas, ALFONZO is Primary Nurse. ca1 12:15 Missed attempt(s): 22 gauge in right antecubital area. Bleeding controlled, band aid ca1 applied, catheter tip intact. 12:32 Missed attempt(s): 22 gauge in left antecubital area. Bleeding controlled, band aid ca1 applied, catheter tip intact. 12:55 Initial lab(s) drawn, by me, sent to lab. Inserted saline lock: 22 gauge in right iw antecubital area, using aseptic technique. Blood collected. 14:19 No provider procedures requiring assistance completed. IV discontinued, intact, ca1 bleeding controlled, No redness/swelling at site. Pressure dressing applied. Administered Medications: 12:55 Drug: NS 0.9% 1000 ml Route: IV; Rate: 1 bolus; Site: right antecubital; iw 13:00 Drug: Zofran (Ondansetron) 4 mg Route: IVP; Site: right antecubital; ca1 14:00 Follow up: Response: No adverse reaction iw 13:08 Drug: NS 0.9% 1000 ml Route: IV; Rate: 1 bolus; Site: right antecubital; ca1 13:18 Drug: Phenergan 12.5 mg Route: IVP; Site: right antecubital; ca1 14:00 Follow up: Response: No adverse reaction iw 13:20 Drug: Benadryl 25 mg Route: IVP; Site: right antecubital; ca1 14:00 Follow up: Response: No adverse reaction iw 14:15 Drug: Phenergan 6.25 mg Route: IVP; Site: right antecubital; ca1 14:15 Follow up: Response: No adverse reaction iw 14:19 Follow up: Response: No adverse reaction; Nausea is decreased ca1 Outcome: 13:28 Discharge ordered by MD. lopez 14:19 Discharged to home via wheelchair, with significant other. ca1 14:19 Condition: stable 14:19 Discharge instructions given to patient, Instructed on discharge instructions, follow up and referral plans. medication usage, Demonstrated understanding of instructions, follow-up care, medications, Prescriptions given X 4. 14:19 Patient left the ED. ca1 Signatures: Pancho Greene MD MD cha Martinez, Amelia as Yuki Cornejo RN RN iw Acerlin, ALFONZO Velazco RN ca1 Corrections: (The following items were deleted from the chart) 10:34 10:32 Chief complaint: Patient states: n/v since this morning, no abd pain, took her iw zofran, benadryl and Phenergan tried to eat crackers and Pedialyte iw 13:39 13:37 BP 116 / 58; Pulse 67bpm; Resp 16bpm; Spontaneous; Pulse Ox 100% RA; ca1 ca1 19:27 17:25 Response: No adverse reaction; Nausea is decreased ca1 ca1
--- NOTE | 2020-10-07 13:29 | EDPHYS ---
Physician Documentation [facility] Name: Suraj Fuentes Age: 29 yrs Sex: Female : 1990 Arrival Date: 10/07/2020 Time: 10:23 Bed 13 Private MD: ED Physician Pancho Greene HPI: 10/07 12:27 This 29 yrs old Female presents to ER via Wheelchair with complaints of jessica Nausea/Vomiting - 13 wks preg. 12:27 The patient presents to the emergency department with nausea, vomiting, that is jessica continuous. Onset: The symptoms/episode began/occurred 2 day(s) ago. Possible causes: . The symptoms are aggravated by nothing. The symptoms are alleviated by nothing. Associated signs and symptoms: The patient has no apparent associated signs or symptoms. Severity of symptoms: At their worst the symptoms were mild moderate in the emergency department the symptoms are unchanged. The patient has experienced similar episodes in the past, multiple times. 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 - Social history:: Smoking status: . - Family history:: not pertinent. ROS: 12:27 Constitutional: Negative for fever, chills, and weight loss, Eyes: Negative for injury, jessica pain, redness, and discharge, ENT: Negative for injury, pain, and discharge, Neck: Negative for injury, pain, and swelling, Cardiovascular: Negative for chest pain, palpitations, and edema, Respiratory: Negative for shortness of breath, cough, wheezing, and pleuritic chest pain, Back: Negative for injury and pain, : Negative for injury, bleeding, discharge, and swelling, MS/Extremity: Negative for injury and deformity, Skin: Negative for injury, rash, and discoloration, Neuro: Negative for headache, weakness, numbness, tingling, and seizure, Psych: Negative for depression, anxiety, suicide ideation, homicidal ideation, and hallucinations, Allergy/Immunology: Negative for hives, rash, and allergies, Endocrine: Negative for neck swelling, polydipsia, polyuria, polyphagia, and marked weight changes, Hematologic/Lymphatic: Negative for swollen nodes, abnormal bleeding, and unusual bruising. 12:27 Abdomen/GI: Positive for abdominal distension. Exam: 12:27 Constitutional: This is a well developed, well nourished patient who is awake, alert, jessica and in no acute distress. Head/Face: Normocephalic, atraumatic. Eyes: Pupils equal round and reactive to light, extra-ocular motions intact. Lids and lashes normal. Conjunctiva and sclera are non-icteric and not injected. Cornea within normal limits. Periorbital areas with no swelling, redness, or edema. ENT: Nares patent. No nasal discharge, no septal abnormalities noted. Tympanic membranes are normal and external auditory canals are clear. Oropharynx with no redness, swelling, or masses, exudates, or evidence of obstruction, uvula midline. Mucous membranes moist. Neck: Trachea midline, no thyromegaly or masses palpated, and no cervical lymphadenopathy. Supple, full range of motion without nuchal rigidity, or vertebral point tenderness. No Meningismus. Chest/axilla: Normal chest wall appearance and motion. Nontender with no deformity. No lesions are appreciated. Cardiovascular: Regular rate and rhythm with a normal S1 and S2. No gallops, murmurs, or rubs. Normal PMI, no JVD. No pulse deficits. Respiratory: Lungs have equal breath sounds bilaterally, clear to auscultation and percussion. No rales, rhonchi or wheezes noted. No increased work of breathing, no retractions or nasal flaring. Back: No spinal tenderness. No costovertebral tenderness. Full range of motion. Skin: Warm, dry with normal turgor. Normal color with no rashes, no lesions, and no evidence of cellulitis. MS/ Extremity: Pulses equal, no cyanosis. Neurovascular intact. Full, normal range of motion. Neuro: Awake and alert, GCS 15, oriented to person, place, time, and situation. Cranial nerves II-XII grossly intact. Motor strength 5/5 in all extremities. Sensory grossly intact. Cerebellar exam normal. Normal gait. Psych: Awake, alert, with orientation to person, place and time. Behavior, mood, and affect are within normal limits. 12:27 Abdomen/GI: Inspection: gravid appearance, Bowel sounds: normal, Palpation: abdomen is soft and non-tender, Liver: no appreciated palpable abnormalities, Hernia: not appreciated. Vital Signs: 10:32 BP 97 / 77; Pulse 96; Resp 18; Temp 97.6; Pulse Ox 100% on R/A; Weight 81.19 kg; Height iw 5 ft. 4 in. (162.56 cm); 12:10 BP 101 / 64; Pulse 71; Resp 16 S; Pulse Ox 100% on R/A; ca1 13:05 BP 116 / 58; Pulse 67; Resp 16 S; Pulse Ox 100% on R/A; ca1 14:18 BP 125 / 75; Pulse 71; Resp 16 S; Pulse Ox 100% on R/A; ca1 10:32 Body Mass Index 30.72 (81.19 kg, 162.56 cm) iw MDM: 11:16 Patient medically screened. [facility] 12:33 Differential diagnosis: Nonspecific abd pain, gastritis, cholecystitis, pancreatitis, jessica appendicitis, diverticulitis, viral gastroenteritis, gastroenteritis. Data reviewed: vital signs, nurses notes, lab test result(s), CBC, electrolytes, hepatic panel. Data interpreted: hall monitor: rate is 96 beats/min, rhythm is atrial fibrillation, Pulse oximetry: on room air is 100 %. Counseling: I had a detailed discussion with the patient and/or guardian regarding: the historical points, exam findings, and any diagnostic results supporting the discharge/admit diagnosis, lab results. 10/07 11:18 Order name: Basic Metabolic Panel; Complete Time: 13:28 [facility] 10/07 11:18 Order name: CBC with Diff; Complete Time: 13:28 [facility] 10/07 11:18 Order name: Hepatic Function; Complete Time: 13:28 [facility] 10/07 11:18 Order name: Lipase; Complete Time: 13:28 [facility] 10/07 14:14 Order name: Urine Dipstick--Ancillary (enter results) 10/07 14:14 Order name: Urine --Ancillary (enter results) 10/07 11:18 Order name: IV Saline Lock; Complete Time: 12:55 [facility] 10/07 11:18 Order name: Labs collected and sent; Complete Time: 12:56 [facility] 10/07 11:18 Order name: Urine Dipstick-Ancillary (obtain specimen); Complete Time: 14:03 jessica Administered Medications: 12:55 Drug: NS 0.9% 1000 ml Route: IV; Rate: 1 bolus; Site: right antecubital; iw 13:00 Drug: Zofran (Ondansetron) 4 mg Route: IVP; Site: right antecubital; ca1 14:00 Follow up: Response: No adverse reaction iw 13:08 Drug: NS 0.9% 1000 ml Route: IV; Rate: 1 bolus; Site: right antecubital; ca1 13:18 Drug: Phenergan 12.5 mg Route: IVP; Site: right antecubital; ca1 14:00 Follow up: Response: No adverse reaction iw 13:20 Drug: Benadryl 25 mg Route: IVP; Site: right antecubital; ca1 14:00 Follow up: Response: No adverse reaction iw 14:15 Drug: Phenergan 6.25 mg Route: IVP; Site: right antecubital; ca1 14:15 Follow up: Response: No adverse reaction iw 14:19 Follow up: Response: No adverse reaction; Nausea is decreased ca1 Disposition: 10/07/20 13:28 Discharged to Home. Impression: Vomiting of , unspecified, related conditions, unspecified, first trimester, related conditions, unspecified, second trimester. - Condition is Stable. - Discharge Instructions: Hyperemesis Gravidarum, First Trimester of , Uija-xh-Gzog, Nausea and Vomiting, Adult, Pwqz-wg-Pwxc, First Trimester of . - Prescriptions for Diclegis 10- 10 mg Oral tablet,delayed release (DR/EC) - take 1 tablet by ORAL route 3 times per day and 2 tablets at bedtime; 60 tablet. Vitamin 27- 0.8 mg Oral Tablet - take 1 tablet by ORAL route once daily; 30 tablet. Zofran 4 mg Oral Tablet - take 1 tablet by ORAL route every 12 hours As needed; 20 tablet. Phenergan 25 mg Rectal Suppository - insert 1 suppository by RECTAL route every 6 hours As needed; 12 suppository. - Medication Reconciliation Form, Thank You Letter, Antibiotic Education, Prescription Opioid Use form. - Follow up: Private Physician; When: 2 - 3 days; Reason: Recheck today's complaints, Continuance of care, Re-evaluation by your physician. - Problem is new. - Symptoms have improved. Signatures: Dispatcher [employer] EDMS Pancho Greene MD MD cha Williams, Irene, RN RN iw Mora Duenas RN RN ca1 Corrections: (The following items were deleted from the chart) 14:19 13:28 10/07/2020 13:28 Discharged to Home. Impression: Vomiting of , ca1 unspecified; related conditions, unspecified, first trimester; related conditions, unspecified, second trimester. Condition is Stable. Discharge Instructions: Hyperemesis Gravidarum, First Trimester of , Ruch-cn-Kweh, Nausea and Vomiting, Adult, Enos-oi-Xnuh, First Trimester of . Prescriptions for Diclegis 10-10 mg Oral tablet,delayed release (DR/EC) - take 1 tablet by ORAL route 3 times per day and 2 tablets at bedtime; 60 tablet, Vitamin 27-0.8 mg Oral Tablet - take 1 tablet by ORAL route once daily; 30 tablet, Zofran 4 mg Oral Tablet - take 1 tablet by ORAL route every 12 hours As needed; 20 tablet, Phenergan 25 mg Rectal Suppository - insert 1 suppository by RECTAL route every 6 hours As needed; 12 suppository. and Forms are Medication Reconciliation Form, Thank You Letter, Antibiotic Education, Prescription Opioid Use. Follow up: Private Physician; When: 2 - 3 days; Reason: Recheck today's complaints, Continuance of care, Re-evaluation by your physician. Problem is new. Symptoms have improved. jessica
[2020-10-07] MEDS ORDERED: DIPHENHYDRAMINE 50 MG/ML VIAL ONE (13:31)
[2020-10-07] MEDS ORDERED: PROMETHAZINE INJ 25 MG/ML AMP ONE ×2 (13:31→14:26)
[2020-10-07 14:56] VITALS: TEMP 97.6; O2SAT 100
[2020-10-07 15:01] VITALS: BP 125/75
[2020-10-07 17:32] LABS: Urine Blood NEGATIVE (NEG); Urine Glucose NEGATIVE (NEG); Urine Protein NEGATIVE (NEG); Urine Specific Gravity 1.025 (1.005-1.030); Urine pH 8.5 (5.0-7.0)
== END 2020-10-07 14:19 | disposition home or self-care (01) ==
LOC: ER 10:20
DX: O21.9 Vomiting of pregnancy, unspecified (principal); Z3A.13 13 weeks gestation of pregnancy; Z88.6 Allergy status to analgesic agent; Z91.018 Allergy to other foods
CPT/HCPCS: 85025; 80048; 36415; 81025; 80076; 81003; 83690; 96375; 96374; 99284; J2550 ×2; J1200; J7030; J2405

== ENCOUNTER 2020-10-10 04:26 | Emergency (ER) | payer MEDICAID ==
--- OUTSIDE RECORDS SUMMARY | 2020-10-10 04:28 | XMS REPORT | Continuity of Care Document ---
:1990 Author Organization [facility] t Address [address] [place] [address] Care Team Providers Name Role Phone Doctor Unassigned, Name Attending Clinician Unavailable Shirin FRANKLIN, Keerthi Attending Clinician Kevin FRANKLIN Attending Clinician Akinsisushma WHCNP, C Attending Clinician Jim STEAMFITTER SUPERVISOR, R Attending Clinician Kevin FRANKLIN Admitting Clinician [...] ID 2020-09-20 2020-09-20 Orders Doctor EDUARDO [id number] 00:00:00 00:00:00 Only UnassignedSRAVAN [id number] [place] [facility] [id number] 2020-09-09 2020-09-10 [facility] Marcelo aCrpio [id number] 19:39:00 16:45:00 Encounter Karlie Brown [id number] [facility] [id number] 2020-09-09 2020-09-09 Telephone Vitaliy [facility] [id number] 00:00:00 00:00:00 Graciela C PLACEMENT INTERVIEWER [id number] REGIONAL [id number] MATERNAL [id number] & CHILD 107 [facility] 2020-09-09 2020-09-09 [facility] [id number] 00:00:00 00:00:00 Roshunda R PLACEMENT INTERVIEWER [id number] [facility] [id number] MATERNAL [id number] & CHILD 107 [facility] 2020-09-08 2020-09-08 Routine [facility] [id number] 10:23:36 11:14:26 Roshunda R PLACEMENT INTERVIEWER [id number] Visit REGIONAL [id number] MATERNAL [id number] & CHILD 107 [facility] 2020-09-08 2020-09-08 [facility] [id number] 00:00:00 00:00:00 Roshunda R PLACEMENT INTERVIEWER [id number] [facility] [id number] MATERNAL [id number] & CHILD 107 [facility] 2020-09-07 2020-09-07 [facility] [id number] 00:00:00 00:00:00 Roshunda R PLACEMENT INTERVIEWER [id number] REGIONAL [id number] MATERNAL [id number] & CHILD 107 [facility] Results This patient has no known results.
[2020-10-10] MEDS ORDERED: FAMOTIDINE 20 MG/2 ML VIAL IV ONE (05:05)
[2020-10-10] MEDS ORDERED: NA CHLORIDE 0.9% 1,000 ML ONE (05:05)
[2020-10-10] MEDS ORDERED: PROMETHAZINE INJ 25 MG/ML AMP ONE ×2 (05:05→07:00)
[2020-10-10] MEDS ORDERED: MORPHINE 2 MG/ML SYR ONE ×2 (05:14→07:05)
[2020-10-10 05:21] LABS: Absolute Lymphocytes (CBC) 1.7 K/uL (0.7-4.9); Basophils % 0.4 % (0-1.3); Hematocrit 41.1 % (36.0-45.0); Lymphocytes % 22.7 % (15.3-44.8); MPV 8.1 fL (7.6-11.3); RBC Red Blood Cell Count 4.73 M/uL (3.86-4.86)
[2020-10-10 05:53] LABS: ALT/SGPT 19 U/L (12-78); AST/SGOT 13 U/L (15-37); Albumin 3.6 g/dL (3.4-5.0); Alkaline Phosphatase 53 U/L (45-117); BUN Blood Urea Nitrogen 6 mg/dL (7-18); Bicarbonate 23 mmol/L (21-32); Bilirubin Direct < 0.1 mg/dL (0-0.2); Bilirubin Total 0.6 mg/dL (0.2-1.0); Glucose Level 96 mg/dL (74-106); HCG, Quantitative 41877 mIU/mL (1-3); Lipase 60 U/L (73-393); Potassium 3.5 mmol/L (3.5-5.1); Protein, Total 7.7 g/dL (6.4-8.2); Sodium Level 139 mmol/L (136-145)
[2020-10-10] MEDS ORDERED: D5 0.9 NS 1,000 ML IV ONE (06:28)
--- NOTE | 2020-10-10 07:21 | EDPHYS ---
Physician Documentation [facility] Name: Suraj Fuentes Age: 29 yrs Sex: Female : 1990 Arrival Date: 10/10/2020 Time: 04:26 Bed 18 Private MD: ED Physician Zane Herring HPI: 10/10 05:21 This 29 yrs old Female presents to ER via Wheelchair with complaints of mh7 Abdominal Pain, Vomiting, +12 WKS PREG. 05:21 The patient presents to the emergency department with nausea, that is moderate, mh7 vomiting, that is intermittent, abdominal pain, of the epigastric area, right upper quadrant and left upper quadrant, described as crampy, intermittent, and does not radiate. 05:23 Onset: The symptoms/episode began/occurred last night. Possible causes: . The mh7 symptoms are aggravated by movement, food , The symptoms are alleviated by nothing. Associated signs and symptoms: Pertinent negatives: anorexia, belching, constipation, diarrhea, dysuria, fever, flatulence, GI bleeding, hematuria, vaginal discharge. Severity of symptoms: At their worst the symptoms were moderate last night, in the emergency department the symptoms are unchanged. The patient has experienced similar episodes in the past, multiple times. Historical: - Allergies: 04:38 Demerol; sg 04:38 Ibuprofen; sg 04:38 ORANGES; sg 04:38 Demerol; ea 04:38 Ibuprofen; ea 04:38 ORANGES; ea - PMHx: 04:38 hyperemesis gravidarum; Pancreatitis; sg 04:38 Pancreatitis; hyperemesis gravidarum; ea - PSHx: 04:38 ; Appendectomy; sg 04:38 Appendectomy; ; ea - Immunization history:: Adult Immunizations not up to date, Adult Immunizations up to date. - Social history:: Smoking status: Patient denies any tobacco usage or history of. Smoking status: Patient denies any tobacco usage or history of. ROS: 05:23 Constitutional: Negative for fever, chills, and weight loss, Eyes: Negative for injury, mh7 pain, redness, and discharge, ENT: Negative for injury, pain, and discharge, Neck: Negative for injury, pain, and swelling, Cardiovascular: Negative for chest pain, palpitations, and edema, Respiratory: Negative for shortness of breath, cough, wheezing, and pleuritic chest pain, Back: Negative for injury and pain, : Negative for injury, bleeding, discharge, and swelling, MS/Extremity: Negative for injury and deformity, Skin: Negative for injury, rash, and discoloration, Neuro: Negative for headache, weakness, numbness, tingling, and seizure, Psych: Negative for depression, anxiety, suicide ideation, homicidal ideation, and hallucinations, Allergy/Immunology: Negative for hives, rash, and allergies, Endocrine: Negative for neck swelling, polydipsia, polyuria, polyphagia, and marked weight changes, Hematologic/Lymphatic: Negative for swollen nodes, abnormal bleeding, and unusual bruising. Exam: 05:23 Head/Face: Normocephalic, atraumatic. Eyes: Pupils equal round and reactive to light, mh7 extra-ocular motions intact. Lids and lashes normal. Conjunctiva and sclera are non-icteric and not injected. Cornea within normal limits. Periorbital areas with no swelling, redness, or edema. Neck: Trachea midline, no thyromegaly or masses palpated, and no cervical lymphadenopathy. Supple, full range of motion without nuchal rigidity, or vertebral point tenderness. No Meningismus. Chest/axilla: Normal chest wall appearance and motion. Nontender with no deformity. No lesions are appreciated. Cardiovascular: Regular rate and rhythm with a normal S1 and S2. No gallops, murmurs, or rubs. Normal PMI, no JVD. No pulse deficits. 05:23 Back: No spinal tenderness. No costovertebral tenderness. Full range of motion. Skin: Warm, dry with normal turgor. Normal color with no rashes, no lesions, and no evidence of cellulitis. MS/ Extremity: Pulses equal, no cyanosis. Neurovascular intact. Full, normal range of motion. Neuro: Awake and alert, GCS 15, oriented to person, place, time, and situation. Cranial nerves II-XII grossly intact. Motor strength 5/5 in all extremities. Sensory grossly intact. Cerebellar exam normal. Normal gait. Psych: Awake, alert, with orientation to person, place and time. Behavior, mood, and affect are within normal limits. 05:23 Constitutional: The patient appears in no acute distress, alert, awake, uncomfortable. 05:23 Abdomen/GI: Inspection: gravid appearance, is noted, Bowel sounds: normal, in all quadrants, Palpation: mild abdominal tenderness, in the epigastric area, right upper quadrant and left upper quadrant, Rectal exam: the exam is deferred, because of patient request, Indicators: McBurney's point is not tender, Morris's sign is negative, Rovsing's sign is negative, Obturator sign is negative, Psoas sign is negative, Liver: no appreciated palpable abnormalities. Vital Signs: 04:50 BP 119 / 52; Pulse 99; Resp 18; Temp 98; Pulse Ox 98% ; ea 05:51 BP 123 / 63; Pulse 73; Resp 18; Pulse Ox 95% ; ea MDM: 07:02 Patient medically screened. rn 07:18 Differential diagnosis: Nonspecific abd pain, gastritis, cholecystitis, viral rn gastroenteritis, gastroenteritis, hyperemesis. Data reviewed: vital signs, nurses notes, lab test result(s), radiologic studies, ultrasound, and as a result, I will discharge patient. Counseling: I had a detailed discussion with the patient and/or guardian regarding: the historical points, exam findings, and any diagnostic results supporting the discharge/admit diagnosis, lab results, radiology results, the need for outpatient follow up, to return to the emergency department if symptoms worsen or persist or if there are any questions or concerns that arise at home. Response to treatment: the patient's symptoms have markedly improved after treatment, and as a result, I will discharge patient. Special discussion: I discussed with the patient/guardian in detail that at this point there is no indication for admission to the hospital. It is understood, however, that if the symptoms persist or worsen the patient needs to return immediately for re-evaluation. ED course: Signed out to me by Dr. Urbano, pending U/S, tissue technician reports sludge and "tiny gallstones", will dc home as planned by Dr. Urbano. . 10/10 04:58 Order name: CBC with Diff; Complete Time: 06:08 [facility] 10/10 04:58 Order name: HCG-Quantitative; Complete Time: 06:08 [facility] 10/10 05:20 Order name: Basic Metabolic Panel; Complete Time: 06:08 [facility] 10/10 05:20 Order name: Liver (Hepatic) Function; Complete Time: 06:08 [facility] 10/10 05:20 Order name: Lipase; Complete Time: 06:08 EDMS 10/10 06:57 Order name: US Abdomen Limited; Complete Time: 07:52 mh7 10/10 04:57 Order name: IV Saline Lock; Complete Time: 04:57 ea 10/10 04:57 Order name: Labs collected and sent; Complete Time: 04:58 ea 10/10 05:26 Order name: Heart Tones; Complete Time: 06:31 mh7 Administered Medications: 05:04 CANCELLED (Duplicate Order): Promethazine 12.5 mg IVP once ea 05:04 CANCELLED (Duplicate Order): NS 0.9% 1000 ml IV at 1 bolus Per protocol; 1000 mL bolus ea 05:04 Drug: Phenergan 12.5 mg Route: IVP; Site: left antecubital; ea 05:50 Follow up: Response: No adverse reaction; Nausea is decreased ea 05:04 Drug: Pepcid 20 mg Route: IVP; Site: left antecubital; ea 05:50 Follow up: Response: No adverse reaction ea 05:05 CANCELLED (Duplicate Order): Pepcid 20 mg IVP once ea 05:05 Drug: NS 0.9% 1000 ml Route: IV; Rate: 1000 ml; Site: left antecubital; ea 07:34 Follow up: IV Status: Completed infusion; IV Intake: 1000ml em 05:05 Drug: morphine 2 mg {Note: rass 1.} Route: IVP; Site: left antecubital; ea 05:50 Follow up: Response: No adverse reaction; Pain is decreased ea 06:18 Drug: D5-NS 1000 ml Route: IV; Rate: bolus; Site: left antecubital; ea 06:50 Drug: Phenergan 12.5 mg Route: IVP; Site: left antecubital; ea 07:35 Follow up: Response: No adverse reaction; Nausea is decreased em 06:54 Drug: morphine 2 mg {Note: rass 0.} Route: IVP; Site: left antecubital; ea 07:35 Follow up: Response: No adverse reaction; Marked relief of symptoms; Pain is decreased; em RASS: Alert and Calm (0) 08:03 Drug: Zofran (Ondansetron) 4 mg Route: IVP; Site: left antecubital; em 08:16 Follow up: Response: No adverse reaction; Marked relief of symptoms; Nausea is decreasedem Disposition: 10/10/20 07:20 Discharged to Home. Impression: Nausea with vomiting, unspecified, Hyperemesis Gravidarum. - Condition is Stable. - Discharge Instructions: Nausea and Vomiting, Adult, Cholelithiasis. - Prescriptions for Zofran ODT 4 mg Oral tablet,disintegrating - place 1 tablet by TRANSLINGUAL route every 8 hours As needed; 15 tablet. - Medication Reconciliation Form, Thank You Letter, Antibiotic Education, Prescription Opioid Use form. - Follow up: Private Physician; When: As needed; Reason: Recheck today's complaints, Re-evaluation by your physician. - Problem is an ongoing problem. - Symptoms have improved. Signatures: Dispatcher [employer] Ted Almanza RN Nathan Peña RN RN em Nieto, Roman, MD MD rn Antunez, Elena, RN RN ea Holmes, Maurice, MD MD [facility] Corrections: (The following items were deleted from the chart) 05:04 04:57 Promethazine 12.5 mg IVP once ordered. [facility] 05:04 04:57 NS 0.9% 1000 ml IV at 1 bolus Per protocol; 1000 mL bolus ordered. [facility] 05:05 04:57 Pepcid 20 mg IVP once ordered. [facility] 05:05 04:58 IV Saline Lock ordered. [facility] 05:05 04:58 Labs collected and sent ordered. [facility] 05:10 04:57 BASIC METABOLIC PANEL+C.LAB.BRZ ordered. [facility] EDAL 05:10 04:57 HEPATIC FUNCTION+C.LAB.BRZ ordered. EDAL EDMS 05:11 04:57 CBC+H.LAB.BRZ ordered. [facility]AL EDMS 05:11 04:57 LIPASE+C.LAB.BRZ ordered. EDAL EDMS 05:11 04:58 BASIC METABOLIC PANEL+C.LAB.BRZ ordered. EDAL EDMS 05:11 04:58 CBC+H.LAB.BRZ ordered. EDAL EDMS 05:11 04:58 HEPATIC FUNCTION+C.LAB.BRZ ordered. EDAL EDMS 05:11 04:58 LIPASE+C.LAB.BRZ ordered. EDAL EDMS 08:19 07:20 10/10/2020 07:20 Discharged to Home. Impression: Nausea with vomiting, em unspecified; Hyperemesis Gravidarum. Condition is Stable. Forms are Medication Reconciliation Form, Thank You Letter, Antibiotic Education, Prescription Opioid Use. Follow up: Private Physician; When: As needed; Reason: Recheck today's complaints, Re-evaluation by your physician. Problem is an ongoing problem. Symptoms have improved. rn
--- NOTE | 2020-10-10 07:21 | ER ---
Nurse's Notes [facility] Name: Suraj Fuentes Age: 29 yrs Sex: Female : 1990 Arrival Date: 10/10/2020 Time: 04:26 Bed 18 Private MD: Diagnosis: Nausea with vomiting, unspecified;Hyperemesis Gravidarum Presentation: 10/10 04:36 Chief complaint: pt family states that she has had severe abdominal pain that began sg last night and worsening this morning, states has been vomiting as well, pt family says no fever/chills at home. Coronavirus screen: Client denies travel out of the [place] in the last 14 days. nausea, vomiting. Ebola Screen: Patient negative for fever greater than or equal to 101.5 degrees Fahrenheit, and additional compatible Ebola Virus Disease symptoms Patient denies exposure to infectious person. Patient denies travel to an Ebola-affected area in the 21 days before illness onset. No symptoms or risks identified at this time. Initial Sepsis Screen: Does the patient meet any 2 criteria? HR > 90 bpm. Does the patient have a suspected source of infection? Yes: Acute abdominal pain. Risk Assessment: Do you want to hurt yourself or someone else? Patient reports no desire to harm self or others. Onset of symptoms was October 10, 2020. Care prior to arrival: None. Mechanism of Injury: No Mechanism of Injury. Transition of care: patient was not received from another setting of care. 04:36 Acuity: SHAW 3 sg 04:36 Method Of Arrival: Wheelchair sg Triage Assessment: 04:36 General: Appears uncomfortable, well developed, well nourished, Behavior is sg cooperative, appropriate for age. Pain: Complains of pain in abdomen. Cardiovascular: Patient's skin is warm and dry. GI: Abdomen is round non-distended, Reports lower abdominal pain, upper abdominal pain, nausea, vomiting. Derm: Skin is pink, warm \T\ dry. 04:39 General: Appears uncomfortable, Behavior is restless. Pain: Complains of pain in ea abdomen. GI: Reports nausea, vomiting. Derm: Skin is pink, warm \T\ dry. Historical: - Allergies: 04:38 Demerol; sg 04:38 Ibuprofen; sg 04:38 ORANGES; sg 04:38 Demerol; ea 04:38 Ibuprofen; ea 04:38 ORANGES; ea - PMHx: 04:38 hyperemesis gravidarum; Pancreatitis; sg 04:38 Pancreatitis; hyperemesis gravidarum; ea - PSHx: 04:38 ; Appendectomy; sg 04:38 Appendectomy; ; ea - Immunization history:: Adult Immunizations not up to date, Adult Immunizations up to date. - Social history:: Smoking status: Patient denies any tobacco usage or history of. Smoking status: Patient denies any tobacco usage or history of. Screenin:37 Abuse screen: Denies threats or abuse. Nutritional screening: No deficits noted. ea Tuberculosis screening: No symptoms or risk factors identified. Fall Risk None identified. Assessment: 05:50 Reassessment: Patient and/or family updated on plan of care and expected duration. Pain ea level reassessed. Pt resting with eyes closed, respirations even and unlabored, chest expansions even and symmetrical. 07:43 Reassessment: pending completion of IV fluids. em 08:00 Reassessment: reports nausea, Dr. Herring notified, received VO forzofran 4 mg IV x 1. em Vital Signs: 04:50 BP 119 / 52; Pulse 99; Resp 18; Temp 98; Pulse Ox 98% ; ea 05:51 BP 123 / 63; Pulse 73; Resp 18; Pulse Ox 95% ; ea Vitals: 06:31 Heart Tones 128. ea ED Course: 04:26 Patient arrived in ED. bp1 04:31 Avis Madrid RN is Primary Nurse. ea 04:32 Carl Urbano MD is Attending Physician. [facility] 04:38 Triage completed. sg 04:38 Arm band placed on right wrist. Patient placed in an exam room, on a stretcher, on ea pulse oximetry. 04:39 Patient has correct armband on for positive identification. Bed in low position. Call ea light in reach. Side rails up X2. 04:49 Inserted saline lock: 22 gauge in left antecubital area, using aseptic technique. ea 07:04 Attending Physician role handed off by Carl Urbano MD rn 07:04 Zane Herring MD is Attending Physician. rn 07:16 US Abdomen Limited In Process Unspecified. EDMS 08:17 No provider procedures requiring assistance completed. IV discontinued, intact, em bleeding controlled, No redness/swelling at site. Pressure dressing applied. Administered Medications: 05:04 CANCELLED (Duplicate Order): Promethazine 12.5 mg IVP once ea 05:04 CANCELLED (Duplicate Order): NS 0.9% 1000 ml IV at 1 bolus Per protocol; 1000 mL bolus ea 05:04 Drug: Phenergan 12.5 mg Route: IVP; Site: left antecubital; ea 05:50 Follow up: Response: No adverse reaction; Nausea is decreased ea 05:04 Drug: Pepcid 20 mg Route: IVP; Site: left antecubital; ea 05:50 Follow up: Response: No adverse reaction ea 05:05 CANCELLED (Duplicate Order): Pepcid 20 mg IVP once ea 05:05 Drug: NS 0.9% 1000 ml Route: IV; Rate: 1000 ml; Site: left antecubital; ea 07:34 Follow up: IV Status: Completed infusion; IV Intake: 1000ml em 05:05 Drug: morphine 2 mg {Note: rass 1.} Route: IVP; Site: left antecubital; ea 05:50 Follow up: Response: No adverse reaction; Pain is decreased ea 06:18 Drug: D5-NS 1000 ml Route: IV; Rate: bolus; Site: left antecubital; ea 06:50 Drug: Phenergan 12.5 mg Route: IVP; Site: left antecubital; ea 07:35 Follow up: Response: No adverse reaction; Nausea is decreased em 06:54 Drug: morphine 2 mg {Note: rass 0.} Route: IVP; Site: left antecubital; ea 07:35 Follow up: Response: No adverse reaction; Marked relief of symptoms; Pain is decreased; em RASS: Alert and Calm (0) 08:03 Drug: Zofran (Ondansetron) 4 mg Route: IVP; Site: left antecubital; em 08:16 Follow up: Response: No adverse reaction; Marked relief of symptoms; Nausea is decreasedem Intake: 07:34 IV: 1000ml; Total: 1000ml. em Outcome: 07:20 Discharge ordered by rn 08:18 Discharged to home ambulatory, with family. em 08:18 Condition: good 08:18 Discharge instructions given to patient, Instructed on discharge instructions, follow up and referral plans. medication usage, Demonstrated understanding of instructions, follow-up care, medications, Prescriptions given X 1. 08:19 Patient left the ED. em Signatures: Dispatcher [employer] Ted Almanza RN RN sg Munoz, Edgar, RN RN em Nieto, Roman, MD MD rn Antunez, Elena, RN RN ea Paniauga, Brittany bp1 Holmes, Maurice, MD MD mh7
--- NOTE | 2020-10-10 07:50 | RAD REPORT ---
EXAM DESCRIPTION: US - Abdomen Exam Limited - 10/10/2020 7:16 am CLINICAL HISTORY: Abdominal pain. COMPARISON: 2017 FINDINGS: Multiple gallstones. Moderate sludge within the gallbladder. The gallbladder wall upper li mits normal caliber The biliary tree is normal caliber. IMPRESSION: Cholelithiasis and a moderate amount of sludge.
[2020-10-10] MEDS ORDERED: ONDANSETRON 4 MG/2 ML VIAL ONE (08:12)
[2020-10-10 08:35] VITALS: TEMP 98
[2020-10-10 08:45] VITALS: BP 123/63; O2SAT 95
== END 2020-10-10 08:19 | disposition home or self-care (01) ==
LOC: ER 04:26
DX: O21.0 Mild hyperemesis gravidarum (principal); Z3A.00 Weeks of gestation of pregnancy not specified; Z88.5 Allergy status to narcotic agent; Z88.6 Allergy status to analgesic agent; Z91.018 Allergy to other foods
CPT/HCPCS: 96361; 85025; 80048; 36415; 80076; 84702; 83690; 76705; 96375; 96374; 99284; J2550 ×2; J2270 ×2; J7042; J7030; J2405

== ENCOUNTER 2020-10-11 09:33 | Emergency (ER) | payer MEDICAID ==
--- OUTSIDE RECORDS SUMMARY | 2020-10-11 09:46 | XMS REPORT | Continuity of Care Document ---
:1990 Author Organization [facility] t Address [address] [place] [address] Care Team Providers Name Role Phone Jim Lauren WELLINGTON Attending Clinician Doctor Unassigned, Name Attending Clinician Unavailable Shirin FRANKLIN, B Attending Clinician Kevin FRANKLIN Attending Clinician Akinsisushma WHJENNYP, C Attending Clinician Kevin FRANKLIN Admitting Clinician Problems This patient has no known problems. Allergies, Adverse Reactions, Alerts This patient has no known allergies or adverse reactions. Medications This patient has no known medications. Procedures This patient has no known procedures. Encounters Start End Encounter Admission Attending Care Care Encounter Source Date/Time Date/Time Type Type Clinicians Facility Department ID 2020-10-10 2020-10-10 Telephone AMBAR Fernandez [id number] 00:00:00 00:00:00 Cornelius Aguilar SHEET HEATER HELPER [id number] REGIONAL [id number] MATERNAL [id number] & CHILD [address] [place] [address] 2020-09-20 2020-09-20 Orders Doctor JAYCE [id number] 00:00:00 00:00:00 Only Unassigned, SRAVAN [id number] [place] [id number] 2020-09-09 2020-09-10 [facility] Marcelo Carpio [id number] 19:39:00 16:45:00 Encounter Karlie Brown [id number] [id number] 2020-09-09 2020-09-09 Telephone [facility] [id number] 00:00:00 00:00:00 Graciela Oneil SHEET HEATER HELPER [id number] [facility] [id number] MATERNAL [id number] & CHILD [address] [facility] 2020-09-09 2020-09-09 Telephone [facility] [id number] 00:00:00 00:00:00 Roshunda R SHEET HEATER HELPER [id number] [facility] [id number] MATERNAL [id number] & CHILD [address] [facility] 2020-09-08 2020-09-08 Routine [facility] [id number] 10:23:36 11:14:26 Roshunda R SHEET HEATER HELPER [id number] Visit REGIONAL [id number] MATERNAL [id number] & CHILD [address] [facility] 2020-09-08 2020-09-08 [facility] [id number] 00:00:00 00:00:00 Roshunda R SHEET HEATER HELPER [id number] [facility] [id number] MATERNAL [id number] & CHILD [address] [facility] 2020-09-07 2020-09-07 [facility] [id number] 00:00:00 00:00:00 Roshunda R SHEET HEATER HELPER [id number] REGIONAL [id number] MATERNAL [id number] & CHILD [address] [place] [address] Results This patient has no known results.
--- OUTSIDE RECORDS SUMMARY | 2020-10-11 09:56 | XMS REPORT | Summary of Care ---
:1990 Author Organization [facility] Address [address] [place] [address] Care Team Providers Name Role Phone Gamal Saravia Insurance Hmo Lauren Fernandez [facility] Primary Care Provider Reason for Visit Reason Comments Assessment went to ER advised she has g allstones and needs to be removed Encounter Details Date Type Department Care Team Description 10/10/2020 Telephone [facility]- Cornelius Fernandez, As sessment (went to ER [facility] advised she has [address] [address] to be removed) [place], [place] [phone] [phone] Allergies Active Allergy Reactions Severity Noted Date Comments Ibuprofen Hives 04/15/2014 [place] Hives 04/15/2014 Sodium Citrate (Bulk) Nausea and/or Vomiting 9 documented as of this encounter (statuses as of 10/10/2020) Medications Medication Sig Dispensed Refills Start Date End Date Status vit Take 1 Packet by 30 Each 6 08/03/2020 Active 84-pjzd-nglsb-dha mouth daily. 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 Encounter for IUD removal and reinsertion 01/18/2015 ASCUS on Pap smear 04/15/2014 Estimated Date of Delivery Comments Yes 04/11/2021 Based on Ultrasound, FHT: 127, Transverse Presentation, Placen ta Too early to evaulate documented as of this encounter (statuses as of 10/10/2020) Resolved Problems Problem Noted Date Resolved Date 37 weeks gestation of 12/18/2018 01/08/20 19 Cidra Hick's contraction 12/12/2018 01/08/2019 Abnormal maternal glucose [...] management 01/25/2015 05/20/2018 Overview: ICD10 Diagnosis Term Varnish Melter Utility Breast tenderness in female 01/25/2015 05/20/2018 Not immune to rubella 04/16/2014 06/04/2016 Overview: ICD10 Diagnosis Term Varnish Melter Utility documented as of this encounter (statuses as of 10/10/2020) Immunizations Name Administration Dates Next Due HPV9 [...] Telephone Encounter - Cornelius Fernandez FNP - 10/10/2020 3:08 PM CSTRemoval of Gallstones, would have to be determined by GI. Please have patient check with GI. 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 Stated she was told she had gallstones. Patient stated she no longer has pain at this time. Stated she received Morphine, promethazine and Zofran at ER. Patient wants to know if she can have them removed because she doesnot want to experience the pain again. Informed patient message would be routed to provider for recommendations. elephone Encounter - Barbie Quesada - 10/10/2020 1:24 PM Chana Alejandreamita Fuentes is a 29 year old female Patient went to ER yesterday was advised she has gallstones and needs to have them removed. Patient is requesting to speak to provider or nurse documented in this encounter Plan of Treatment Date Type Specialty Care Team Description 10/13/2020 Routine Visit [facility] Flora Burks, CNP [address] [place] [id number] 15 [phone] Health Maintenance Due Date Last Done Comments [...] Subscriber ID Effective Phone Address T [facility] Group Dates ASIA BETANCOURT [id number] 2018-[address] [place] [id number] MANAGED MEDICAID [place], [place] documented as of this encounter Advance Directives Type Date Recorded Patient Cycle Director Explanati on Advance Directives and Living Will Power of Senior Biostatistician Name Relationship Healthcare Agent Relationship Co mmunication Floyd Brown Father Health Care Agent Preet Coffey Other Health Care Agent [place] Fuentes Spouse [facility] [phone] Agent (Mobile)
[2020-10-11] MEDS ORDERED: NA CHLORIDE 0.9% 1,000 ML ONE (10:55)
[2020-10-11] MEDS ORDERED: ONDANSETRON 4 MG/2 ML VIAL ONE (10:55)
[2020-10-11] MEDS ORDERED: FAMOTIDINE 20 MG/2 ML VIAL IV ONE (10:56)
[2020-10-11 11:17] LABS: Absolute Lymphocytes (CBC) 1.6 K/uL (0.7-4.9); Basophils % 0.4 % (0-1.3); Hematocrit 41.2 % (36.0-45.0); Lymphocytes % 24.1 % (15.3-44.8); RBC Red Blood Cell Count 4.73 M/uL (3.86-4.86)
[2020-10-11] MEDS ORDERED: PROMETHAZINE INJ 25 MG/ML AMP ONE ×2 (11:19→13:20)
[2020-10-11] MEDS ORDERED: FENTANYL CITR 100 MCG/2 ML ONE (11:19)
[2020-10-11 11:32] LABS: ALT/SGPT 17 U/L (12-78); AST/SGOT 9 U/L (15-37); Albumin 3.6 g/dL (3.4-5.0); Alkaline Phosphatase 51 U/L (45-117); BUN Blood Urea Nitrogen 4 mg/dL (7-18); Bicarbonate 26 mmol/L (21-32); Bilirubin Direct 0.1 mg/dL (0-0.2); Bilirubin Total 0.6 mg/dL (0.2-1.0); Glucose Level 91 mg/dL (74-106); Lipase 75 U/L (73-393); Potassium 3.9 mmol/L (3.5-5.1); Protein, Total 7.5 g/dL (6.4-8.2); Sodium Level 137 mmol/L (136-145)
--- NOTE | 2020-10-11 13:13 | EDPHYS ---
Physician Documentation [facility] Name: Suraj Fuentes Age: 29 yrs Sex: Female : 1990 Arrival Date: 10/11/2020 Time: 09:34 Bed 6 Private MD: ED Physician Sharath Rod HPI: 10/11 17:06 This 29 yrs old Female presents to ER via Wheelchair with complaints of kdr Abdominal Pain, Nausea/Vomiting. 17:06 The patient presents to the emergency department with nausea, vomiting, that is kdr intermittent, described as clear fluid, abdominal pain, of the epigastric area, right upper quadrant and left upper quadrant. Onset: The symptoms/episode began/occurred suddenly, this morning. Possible causes: flare up of bowel problem, GB or hyperemesis. The symptoms are aggravated by food , The symptoms are alleviated by nothing. Associated signs and symptoms: Pertinent positives: abdominal pain, nausea, vomiting. Severity of symptoms: At their worst the symptoms were moderate severe incapacitating just prior to arrival, in the emergency department the symptoms are unchanged. The patient has experienced similar episodes in the past, chronically, and the symptoms today are exactly the same, The patient has been to the ED multiple times in the last 14 weeks since becoming . She was most recently seen on Saturday when an US was done that showed Gall stones and sludge. She is otherwise stable but requesting to be transferred to [facility] for further evaluation and possible cholecystectomy . The patient has been recently seen at the [facility], this week. Historical: - Allergies: 10:01 Demerol; ss 10:01 Ibuprofen; ss 10:01 ORANGES; ss - PMHx: 10:01 Pancreatitis; hyperemesis gravidarum; gallstones; ss - PSHx: 10:01 ; Appendectomy; ss - Immunization history:: Adult Immunizations up to date. - Social history:: Smoking status: Patient denies any tobacco usage or history of. ROS: 17:06 Constitutional: Negative for fever, chills, and weight loss, Eyes: Negative for injury, kdr pain, redness, and discharge, Neck: Negative for injury, pain, and swelling, Cardiovascular: Negative for chest pain, palpitations, and edema, Respiratory: Negative for shortness of breath, cough, wheezing, and pleuritic chest pain, Back: Negative for injury and pain, : Negative for injury, bleeding, discharge, and swelling, MS/Extremity: Negative for injury and deformity, Skin: Negative for injury, rash, and discoloration, Neuro: Negative for headache, weakness, numbness, tingling, and seizure activity. Psych: Negative for depression, anxiety, suicide ideation, homicidal ideation, and hallucinations, Allergy/Immunology: Negative for hives, rash, and allergies, Endocrine: Negative for neck swelling, polydipsia, polyuria, polyphagia, and marked weight changes, Hematologic/Lymphatic: Negative for swollen nodes, abnormal bleeding, and unusual bruising. 17:06 Abdomen/GI: Positive for abdominal pain, nausea and vomiting, Negative for diarrhea, constipation, abdominal distension, black/tarry stool, rectal pain, rectal bleeding, bowel incontinence. Exam: 17:06 Constitutional: This is a well developed, well nourished patient who is awake, alert, kdr and moderate distress. Head/Face: Normocephalic, atraumatic. Eyes: Pupils equal round and reactive to light, extra-ocular motions intact. Lids and lashes normal. Conjunctiva and sclera are non-icteric and not injected. Cornea within normal limits. Periorbital areas with no swelling, redness, or edema. Neck: Trachea midline, no thyromegaly or masses palpated, and no cervical lymphadenopathy. Supple, full range of motion without nuchal rigidity, or vertebral point tenderness. No Meningismus. Chest/axilla: Normal chest wall appearance and motion. Nontender with no deformity. No lesions are appreciated. Cardiovascular: Regular rate and rhythm with a normal S1 and S2. No gallops, murmurs, or rubs. Normal PMI, no JVD. No pulse deficits. Respiratory: Lungs have equal breath sounds bilaterally, clear to auscultation and percussion. No rales, rhonchi or wheezes noted. No increased work of breathing, no retractions or nasal flaring. Abdomen/GI: Soft, non-tender, with normal bowel sounds. No distension or tympany. No guarding or rebound. No evidence of tenderness throughout. Back: No spinal tenderness. No costovertebral tenderness. Full range of motion. Skin: Warm, dry with normal turgor. Normal color with no rashes, no lesions, and no evidence of cellulitis. MS/ Extremity: Pulses equal, no cyanosis. Neurovascular intact. Full, normal range of motion. Neuro: Awake and alert, GCS 15, oriented to person, place, time, and situation. Cranial nerves II-XII grossly intact. Motor strength 5/5 in all extremities. Sensory grossly intact. Cerebellar exam normal. Normal gait. Psych: Awake, alert, with orientation to person, place and time. Behavior, mood, and affect are within normal limits. Vital Signs: 09:57 BP 117 / 94; Pulse 90; Resp 26; Temp 98.3(TE); Pulse Ox 98% on R/A; Weight 81.19 kg; ss Height 5 ft. 4 in. (162.56 cm); Pain 10/10; 11:00 BP 109 / 68; Pulse 67; Resp 22; Pulse Ox 99% on R/A; zb 13:03 BP 127 / 70; Pulse 76; Resp 15; Pulse Ox 94% on R/A; hb 09:57 Body Mass Index 30.72 (81.19 kg, 162.56 cm) ss MDM: 13:13 Patient medically screened. kdr 17:06 Data reviewed: vital signs, nurses notes, lab test result(s), radiologic studies. kdr Counseling: I had a detailed discussion with the patient and/or guardian regarding: the historical points, exam findings, and any diagnostic results supporting the discharge/admit diagnosis, lab results, radiology results, the need to transfer to another facility. 10/11 10:23 Order name: Basic Metabolic Panel; Complete Time: 12:08 kdr 10/11 10:23 Order name: CBC with Diff; Complete Time: 12:08 kdr 10/11 10:23 Order name: Hepatic Function; Complete Time: 12:08 kdr 10/11 10:23 Order name: Lipase; Complete Time: 12:08 kdr 10/11 10:23 Order name: IV Saline Lock; Complete Time: 11:50 kdr 10/11 10:23 Order name: Labs collected and sent; Complete Time: 11:50 kdr Administered Medications: 11:10 Drug: NS 0.9% 1000 ml Route: IV; Rate: 1 bolus; Site: left forearm; zb 12:00 Follow up: Response: No adverse reaction; IV Status: Completed infusion; IV Intake: zb 1000ml 11:10 Drug: Pepcid 20 mg Route: IVP; Site: left forearm; zb 12:00 Follow up: Response: No adverse reaction zb 11:10 Drug: fentaNYL (PF) 25 mcg Route: IVP; Site: left forearm; zb 12:00 Follow up: Response: No adverse reaction; Pain is decreased zb 11:10 Drug: Phenergan 12.5 mg Route: IVP; Site: left forearm; zb 12:00 Follow up: Response: No adverse reaction; Nausea is decreased zb 11:21 Not Given (Patient Refused; pt stated she wanted to try something else ): Zofran zb (Ondansetron) 4 mg IVP once; over 2 minutes 13:51 Drug: Phenergan 12.5 mg Route: IVP; Site: left forearm; zb 14:30 Follow up: Response: No adverse reaction; Nausea is decreased zb 13:52 Drug: fentaNYL (PF) 25 mcg Route: IVP; Site: left forearm; zb 14:30 Follow up: Response: No adverse reaction; Pain is decreased zb Disposition: 10/11/20 13:13 Transfer ordered to [facility]. Diagnosis are Abdominal and pelvic pain, Vomiting, related conditions, unspecified, Cholelithiasis. - Reason for transfer: Higher level of care. - Accepting physician is Dr. Galvan. - Condition is Fair. - Problem is an acute exacerbation. - Symptoms have improved. Signatures: Dispatcher [employer] EDMS Sharath Rod MD MD kdr Smirch, Shelby, RN RN ss Baxter, Heather, RN RN hb Brown, Zipporah, RN RN zb Corrections: (The following items were deleted from the chart) 14:46 13:13 10/11/2020 13:13 Transfer ordered to [facility]. Diagnosis is Abdominal and hb pelvic pain; Vomiting; related conditions, unspecified; Cholelithiasis. Reason for transfer: Higher level of care. Accepting physician is Dr. Galvan. Condition is Fair. Problem is an acute exacerbation. Symptoms have improved. kdr
--- NOTE | 2020-10-11 13:13 | ER ---
Nurse's Notes [facility] Name: Suraj Fuentes Age: 29 yrs Sex: Female : 1990 Arrival Date: 10/11/2020 Time: 09:34 Bed 6 Private MD: Diagnosis: Abdominal and pelvic pain;Vomiting; related conditions, unspecified;Cholelithiasis Presentation: 10/11 09:57 Chief complaint: Patient states: N/V and abd pain that began this morning. Pt has been ss seen for this before and states she has gallstones. Coronavirus screen: Client denies travel out of the [place] in the last 14 days. Ebola Screen: Patient denies exposure to infectious person. Patient denies travel to an Ebola-affected area in the 21 days before illness onset. Initial Sepsis Screen: Does the patient meet any 2 criteria? No. Patient's initial sepsis screen is negative. Does the patient have a suspected source of infection? No. Patient's initial sepsis screen is negative. Risk Assessment: Do you want to hurt yourself or someone else? Patient reports no desire to harm self or others. Onset of symptoms was October 11, 2020. 09:57 Method Of Arrival: Wheelchair ss 09:57 Acuity: SHAW 3 ss Historical: - Allergies: 10:01 Demerol; ss 10:01 Ibuprofen; ss 10:01 ORANGES; ss - PMHx: 10:01 Pancreatitis; hyperemesis gravidarum; gallstones; ss - PSHx: 10:01 ; Appendectomy; ss - Immunization history:: Adult Immunizations up to date. - Social history:: Smoking status: Patient denies any tobacco usage or history of. Screenin:00 Abuse screen: Denies threats or abuse. Denies injuries from another. Nutritional zb screening: No deficits noted. Tuberculosis screening: No symptoms or risk factors identified. Fall Risk No fall in past 12 months (0 pts). No secondary diagnosis (0 pts). IV access (20 points). Ambulatory Aid- None/Bed Rest/Nurse Assist (0 pts). Gait- Normal/Bed Rest/Wheelchair (0 pts) Mental Status- Total Chaidez Fall Scale indicates No Risk (0-24 pts). Assessment: 10:20 General: Appears distressed, uncomfortable, Behavior is agitated, anxious, crying. zb Pain: Complains of pain in right upper quadrant Pain currently is 10 out of 10 on a pain scale. Quality of pain is described as sharp. Neuro: Level of Consciousness is awake, alert, obeys commands, Oriented to person, place, time, situation. Cardiovascular: Capillary refill < 3 seconds in bilateral fingers. Respiratory: Airway is patent Respiratory effort is even, unlabored, even unlabored, increased RR due to active vomiting Respiratory pattern is tachypnea. GI: Abdomen is pt is Pt is actively vomiting bile, Abdomen is tender to palpation Guarding noted. : No signs and/or symptoms were reported regarding the genitourinary system. EENT: No signs and/or symptoms were reported regarding the EENT system. Derm: No signs and/or symptoms reported regarding the dermatologic system. Musculoskeletal: Circulation, motion, and sensation intact. 11:25 Reassessment: Patient appears in no apparent distress at this time. Patient and/or zb family updated on plan of care and expected duration. Pain level reassessed. Patient is alert, oriented x 3, equal unlabored respirations, skin warm/dry/pink. pt currently resting, active vomiting has stopped. . 12:30 Reassessment: pt c/o nausea/vomiting and pain. zb 12:40 Reassessment: Report called to ALFONZO medina L\T\D [facility]. z Vital Signs: 09:57 BP 117 / 94; Pulse 90; Resp 26; Temp 98.3(TE); Pulse Ox 98% on R/A; Weight 81.19 kg; ss Height 5 ft. 4 in. (162.56 cm); Pain 10/10; 11:00 BP 109 / 68; Pulse 67; Resp 22; Pulse Ox 99% on R/A; zb 13:03 BP 127 / 70; Pulse 76; Resp 15; Pulse Ox 94% on R/A; hb 09:57 Body Mass Index 30.72 (81.19 kg, 162.56 cm) ED Course: 09:34 Patient arrived in ED. ds1 10:00 Missed attempt(s): 22 gauge in left antecubital area. zb 10:01 Triage completed. ss 10:01 Arm band placed on right wrist. ss 10:09 Sharath Rod MD is Attending Physician. kdr 10:17 Fabienne Bush, RN is Primary Nurse. zb 10:50 Missed attempt(s): 22 gauge in right hand. Bleeding controlled, band aid applied, ph catheter tip intact. Missed attempt(s): 24 gauge in left hand. Bleeding controlled, band aid applied, catheter tip intact. Missed attempt(s): 24 gauge in right forearm. Bleeding controlled, band aid applied, catheter tip intact. 11:09 Patient has correct armband on for positive identification. Bed in low position. Call ph light in reach. Side rails up X 1. Pulse ox on. NIBP on. Door closed. Noise minimized. 14:45 No provider procedures requiring assistance completed. Patient transferred, IV remains zb in place. Administered Medications: 11:10 Drug: NS 0.9% 1000 ml Route: IV; Rate: 1 bolus; Site: left forearm; zb 12:00 Follow up: Response: No adverse reaction; IV Status: Completed infusion; IV Intake: zb 1000ml 11:10 Drug: Pepcid 20 mg Route: IVP; Site: left forearm; zb 12:00 Follow up: Response: No adverse reaction zb 11:10 Drug: fentaNYL (PF) 25 mcg Route: IVP; Site: left forearm; zb 12:00 Follow up: Response: No adverse reaction; Pain is decreased zb 11:10 Drug: Phenergan 12.5 mg Route: IVP; Site: left forearm; zb 12:00 Follow up: Response: No adverse reaction; Nausea is decreased zb 11:21 Not Given (Patient Refused; pt stated she wanted to try something else ): Zofran zb (Ondansetron) 4 mg IVP once; over 2 minutes 13:51 Drug: Phenergan 12.5 mg Route: IVP; Site: left forearm; zb 14:30 Follow up: Response: No adverse reaction; Nausea is decreased zb 13:52 Drug: fentaNYL (PF) 25 mcg Route: IVP; Site: left forearm; zb 14:30 Follow up: Response: No adverse reaction; Pain is decreased zb Intake: 12:00 IV: 1000ml; Total: 1000ml. zb Outcome: 13:13 ER care complete, transfer ordered by . kdr 14:46 Patient left the ED. hb 14:46 Transferred by ground EMS to [facility]. zb 14:46 Condition: stable 14:46 Instructed on the need for transfer. Signatures: Sharath Rod MD MD kdr Sanford, Demi ds1 Rita Meza, RN RN Bethanie Fulton RN RN ph Baxter, Heather, RN RN Fabienne Goff RN ALFONZO zb
[2020-10-11 21:34] VITALS: TEMP 98.3
[2020-10-11 21:37] VITALS: BP 127/70; O2SAT 94
== END 2020-10-11 14:46 | disposition short-term general hospital (02) ==
LOC: ER 09:33
DX: O99.611 Diseases of the digestive system complicating pregnancy, first trimester (principal); K80.20 Calculus of gallbladder without cholecystitis without obstruction; Z3A.00 Weeks of gestation of pregnancy not specified; Z88.5 Allergy status to narcotic agent; Z88.6 Allergy status to analgesic agent; Z91.018 Allergy to other foods
CPT/HCPCS: 96361; 85025; 80048; 36415; 80076; 83690; 96375; 96374; 99285; J2550 ×2; J3010; J7030; J2405

== ENCOUNTER 2020-10-17 11:38 | Emergency (ER) | payer MEDICAID ==
--- OUTSIDE RECORDS SUMMARY | 2020-10-17 11:40 | XMS REPORT | Continuity of Care Document ---
:1990 Author Organization [facility] t Address [address] [place] [address] Care Team Providers Name Role Phone Tyler Galvan MD Attending Clinician Lauren Thomas Attending Clinician Tyler Galvan MD Admitting Clinician Problems This patient has no known problems. Allergies, Adverse Reactions, Alerts This patient has no known allergies or adverse reactions. Medications This patient has no known medications. Procedures This patient has no known procedures. Encounters Start End Encounter Admission Attending Care Care Encounter Source Date/Time Date/Time Type Type Clinicians Facility Department ID 2020-10-11 2020-10-14 [facility] JAYCE Galvan [id number] 15:48:00 12:27:00 Encounter Marisel HINSON [id number] [facility] [id number] 2020-10-10 2020-10-10 Telephone AMBAR Fernandez [id number] 00:00:00 00:00:00 Cornelius Aguilar LINUX VMWARE ADMINISTRATOR [id number] [facility] [id number] MATERNAL [id number] & CHILD [address] [place] [address] Results This patient has no known results.
--- OUTSIDE RECORDS SUMMARY | 2020-10-17 11:48 | XMS REPORT | Summary of Care ---
:1990 Author Organization [facility] Address [address] [place] [address] Care Team Providers Name Role Phone Gamal Saravia Insurance Hmo Lauren Fernandez [facility] Primary Care Provider Reason for Visit Reason Comments Assessment went to ER advised she has g allstones and needs to be removed Encounter Details Date Type Department Care Team Description 10/10/2020 Telephone [facility]- Cornelius Fernandez, As sessment (went to ER [facility] advised she has [address] [place] [address] to be removed) [place], [place] [phone] [address] [phone] Allergies Active Allergy Reactions Severity Noted Date Comments Ibuprofen Hives 04/15/2014 [place] Hives 04/15/2014 Sodium Citrate (Bulk) Nausea and/or Vomiting 9 documented as of this encounter (statuses as of 10/11/2020) Medications Medication Sig Dispensed Refills Start Date End Date Status vit Take 1 Packet by 30 Each 6 08/03/2020 Active 33-iwlf-nemdi-dha mouth daily. 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 Utility Encounter for IUD removal and reinsertion 01/18/2015 ASCUS on Pap smear 04/15/2014 Estimated Date of Delivery Comments Yes 04/11/2021 Based on Ultrasound, FHT: 127, Transverse Presentation, Placen ta Too early to evaulate documented as of this encounter (statuses as of 10/11/2020) Resolved Problems Problem Noted Date Resolved Date 37 weeks gestation of 12/18/2018 01/08/20 19 [place] Hick's contraction 12/12/2018 01/08/2019 Abnormal maternal glucose [...] management 01/25/2015 05/20/2018 Overview: ICD10 Diagnosis Term Online Media Buyer Utility Breast tenderness in female 01/25/2015 05/20/2018 Not immune to rubella 04/16/2014 06/04/2016 Overview: ICD10 Diagnosis Term Online Media Buyer Utility documented as of this encounter (statuses as of 10/11/2020) Immunizations Name Administration Dates Next Due HPV9 [...] GI. Please have patient check with GI. 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
--- OUTSIDE RECORDS SUMMARY | 2020-10-17 11:49 | XMS REPORT | Summary of Care ---
:1990 Author Organization [facility] Address [address] [place] [address] Care Team Providers Name Role Phone Meera Saravia Insurance Hmo Lauren Fernandez [facility] Primary Care Provider Reason for Visit Reason Comments Assessment went to ER advised she has g allstones and needs to be removed Encounter Details Date Type Department Care Team Description 10/10/2020 Telephone [facility]- Cornelius Fernandez, As sessment (went to ER [facility] advised she has [address] [address] to be removed) [place], [place] [phone] [address] [phone] Allergies Active Allergy Reactions Severity Noted Date Comments Ibuprofen Hives 04/15/2014 [place] Hives 04/15/2014 Sodium Citrate (Bulk) Nausea and/or Vomiting 9 documented as of this encounter (statuses as of 10/12/2020) Medications Medication Sig Dispensed Refills Start Date End Date Status vit Take 1 Packet by 30 Each 6 08/03/2020 Suspended 16-kurw-uivfq-dha mouth daily. (SELECT-OB + DHA) 29 mg iron-1 mg -250 mg combo packIndications: Supervision of high risk in first trimester Additional Information pyridoxine, VITAMIN B-6, Take 1 tablet 120 tablet 1 09/01/2020 10/13/2020 Suspended 25 mg tabletIndications: by mouth every Hyperemesis gravidarum 6 (six) hours for 42 days. Additional Information proCHLORperazine 10 mg Take 1 tablet by mouth 20 tablet 0 06/2020 Suspended tabletIndications: every 6 (six) hours as Hyperemesis gravidarum needed (for nausea and vomiting unresponsive to doxylamine/pyridoxine). Additional Information doxylamine-pyridoxine, vit B6, Take 2 tablets by 90 tablet 3 1 Suspended (DICLEGIS) 10-10 mg per mouth at bedtime. 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 Utility Encounter for IUD removal and reinsertion 01/18/2015 ASCUS on Pap smear 04/15/2014 Estimated Date of Delivery Comments Yes 04/11/2021 Based on Ultrasound, FHT: 127, Transverse Presentation, Placen ta Too early to evaulate documented as of this encounter (statuses as of 10/12/2020) Resolved Problems Problem Noted Date Resolved Date [...] management 01/25/2015 05/20/2018 Overview: ICD10 Diagnosis Term Production Operations Manager Utility Breast tenderness in female 01/25/2015 05/20/2018 Not immune to rubella 04/16/2014 06/04/2016 Overview: ICD10 Diagnosis Term Production Operations Manager Utility documented as of this encounter (statuses as of 10/12/2020) Immunizations Name Administration Dates Next Due HPV9 [...] Encounter - J Luis Sapp RN - 10/12/2020 7:53 AM CSTPt currently admitted to [facility] and has surgery consult per admission notes on 10/11/2020. elephone Encounter - Alfreda Vaughn LVN - 10/11/2020 3:22 PM Chana Nicolemeera is a 29 year old female Attempted to call patient, no answer, left vm. elephone Encounter - Cornelius Fernandez FNP - 10/11/2020 3:16 PM CSTI am aware she is a patient but she has to have a consult with GI. elephone Encounter - Cornelius Fernandez FNP - 10/10/2020 3:08 PM CSTRemoval of Gallstones, would have to be determined by GI. Please have patient check with GI. elephone Encounter - Alfreda Vaughn LVN - 10/10/2020 2:39 PM Chana Mabry Gina is a 29 year old female Patient stated she went to [facility] this morning around 4 am for RUQ [...] Barbie Quesada - 10/10/2020 1:24 PM Chana Mauricio Clotilde Fuentes is a 29 year old female Patient went to ER yesterday was advised she has gallstones and needs to have them removed. Patient is requesting to speak to provider or nurse documented in this encounter Plan of Treatment Date Type Specialty Care Team Description 10/13/2020 Routine Visit OB Satellites Fl[facility] Burks[facility] [address] [address] [phone] Health Maintenance Due Date Last Done Comments [...] Results Not on filedocumented in this encounter Additional Health Concerns Infection Onset Date Last Indicated Resolved Time COVID-19 Rule Out 10/11/2020 10/11/2020 10/11/2020 5: 12 PM VP STRATEGY documented as of this encounter Insurance Payer Benefit Plan / Subscriber ID Effective Phone Address T ype Group Dates ASIA BETANCOURT [id number] 2018-Anupama P O BOX Medic [place] [id number] MA[place]ED MEDICA[place] documented as of this encounter Advance Directives Type Date Recorded Patient Cell Preparer Explanati on Advance Directives and Living Will Power of Private Duty Rn Name Relationship Healthcare Agent Relationship Co mmunication Floyd Brown Father Health Care Agent - 00 (Work) Preet Coffey Other Health Care Agent - 00 (Work) [place] Gina Spouse First [facility] [phone] Agent (Mobile)
--- OUTSIDE RECORDS SUMMARY | 2020-10-17 11:49 | XMS REPORT | Summary of Care ---
:1990 Author Organization [facility] Address [address] [place] [address] Care Team Providers Name Role Phone Gamal Saravia Insurance Hmo Lauren Fernandez [facility] Primary Care Provider Reason for Visit Reason Comments Assessment went to ER advised she has g allstones and needs to be removed Encounter Details Date Type Department Care Team Description 10/10/2020 Telephone [facility]- Cornelius Fernandez, As sessment (went to ER [facility] advised she has [address] [place] [address] to be removed) [place], [place] [phone] [address] [phone] Allergies Active Allergy Reactions Severity Noted Date Comments Ibuprofen Hives 04/15/2014 [place] Hives 04/15/2014 Sodium Citrate (Bulk) Nausea and/or Vomiting 9 documented as of this encounter (statuses as of 10/11/2020) Medications Medication Sig Dispensed Refills Start Date End Date Status vit Take 1 Packet by 30 Each 6 08/03/2020 Active 19-qoav-lqukf-dha mouth daily. 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 Repair Technician Utility Encounter for IUD removal and reinsertion 01/18/2015 ASCUS on Pap smear 04/15/2014 Estimated Date of Delivery Comments Yes 04/11/2021 Based on Ultrasound, FHT: 127, Transverse Presentation, Placen ta Too early to evaulate documented as of this encounter (statuses as of 10/11/2020) Resolved Problems Problem Noted Date Resolved Date 37 weeks gestation of 12/18/2018 01/08/20 19 [place] Hick's contraction 12/12/2018 01/08/2019 Abnormal maternal glucose [...] 01/25/2015 05/20/2018 Overview: ICD10 Diagnosis Term Computer Repair Technician Utility Breast tenderness in female 01/25/2015 05/20/2018 Not immune to rubella 04/16/2014 06/04/2016 Overview: ICD10 Diagnosis Term Computer Repair Technician Utility documented as of this [...] Telephone Encounter - Alfreda Vaughn LVN - 10/11/2020 3:22 PM Chana Luly Fuentes is a 29 year old [...] Alfreda Vaughn LVN - 10/10/2020 2:39 PM CSTSuraj Luly Fuentes is a 29 year old female Patient stated she went to [place] ER this morning around 4 am for [...] - Barbie Quesada - 10/10/2020 1:24 PM CSTJamiee Luly Alejandreamita Fuentes is a 29 year old female Patient went to ER yesterday was advised she has gallstones and needs to have them removed. 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 Care Agent (Mobile)
--- OUTSIDE RECORDS SUMMARY | 2020-10-17 11:49 | XMS REPORT | Summary of Care ---
:1990 Author Organization [facility] Address [address] [place] [address] Care Team Providers Name Role Phone Gamal Saravia Insurance Hmo Lauren Fernandez [facility] Primary Care Provider Reason for Visit Reason Comments Assessment went to ER advised she has g allstones and needs to be removed Encounter Details Date Type Department Care Team Description 10/10/2020 Telephone [facility]- Cornelius Fernandez, As sessment (went to ER [facility] advised she has [address] [place] [address] to be removed) [place], [place] [phone] [address] [phone] Allergies Active Allergy Reactions Severity Noted Date Comments Ibuprofen Hives 04/15/2014 [place] Hives 04/15/2014 Sodium Citrate (Bulk) Nausea and/or Vomiting 9 documented as of this encounter (statuses as of 10/11/2020) Medications Medication Sig Dispensed Refills Start Date End Date Status vit Take 1 Packet by 30 Each 6 08/03/2020 Active 19-shah-ngcdl-dha mouth daily. 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 Soap Slabber Utility Encounter for IUD removal and reinsertion 01/18/2015 ASCUS on Pap smear 04/15/2014 Estimated Date of Delivery Comments Yes 04/11/2021 Based on Ultrasound, FHT: 127, Transverse Presentation, Placen ta Too early to evaulate documented as of this encounter (statuses as of 10/11/2020) Resolved Problems Problem Noted Date Resolved Date 37 weeks gestation of 12/18/2018 01/08/20 19 [place] Hick's contraction 12/12/2018 01/08/2019 Abnormal maternal glucose [...] management 01/25/2015 05/20/2018 Overview: ICD10 Diagnosis Term Soap Slabber Utility Breast tenderness in female 01/25/2015 05/20/2018 Not immune to rubella 04/16/2014 06/04/2016 Overview: ICD10 Diagnosis Term Soap Slabber Utility documented as of this encounter (statuses [...] Telephone Encounter - Cornelius Fernandez FNP - 10/11/2020 3:16 PM CSTI am aware she is a patient but she has to have a consult with GI. RVISOR RIDE ASSEMBLY Telephone Encounter - Cornelius Fernandez FNP - 10/10/2020 3:08 PM CSTRemoval of Gallstones, would have to be determined by GI. Please have patient check with GI. RVISOR RIDE ASSEMBLY Telephone Encounter - Alfreda Vaughn LVN - 10/10/2020 2:39 PM Chana Desirelle Yudithsandy Fuentes is a 29 year old female Patient stated she went to [place] ER this morning around 4 am for [...] Barbie Quesada - 10/10/2020 1:24 PM Chana Luly Fuentes is a 29 year old female Patient went to ER yesterday was advised she has gallstones and needs to have them removed. Patient is requesting to speak to provider or nurse documented in this encounter Plan of Treatment Date Type Specialty Care Team Description 10/13/2020 Routine Visit OB Satellites Vitaliy, Flora Oneil, [facility] [address] [place], [place] [address] [phone] Health Maintenance Due Date Last Done Comments [...] Address T ype Group Dates BETANCOURT BETANCOURT [id number] 2018-Anupama HIDALGO Medic [facility] [place] [id number] MANAGED MEDICA[place] documented as of this encounter Advance Directives Type Date Recorded 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 Health Care [phone] Agent (Mobile)
--- OUTSIDE RECORDS SUMMARY | 2020-10-17 11:51 | XMS REPORT | Summary of Care ---
:1990 Author Organization [facility] - [facility] Address [address] [place] [id number] Care Team Providers Name Role Phone Gamal Saravia Insurance Hmo Lauren Fernandez ENTRY LEVEL CIVIL ENGINEER Primary Care Provider Reason for Referral (Routine) Status Reason Specialty Diagnoses / Referred By Referred To Procedures Contact Contact Authorized Maternal Diagnoses Gallstones Matthew Izquierdo, Medicine Procedures CONSULT MATERNAL MEDICINE ULTRASOUND Preferred Location: Luiz FRANKLIN [address] [facility] [id number] [place] [id number] (Routine) Status Reason Specialty Diagnoses / Referred By Referred To Procedures Contact Contact Authorized OG-OBSTETRICS & Diagnoses Gallstones Matthew Izquierdo, GYNECOLOGY / OB Procedures Discharge Follow-Up: Specialty Service OG-OBSTETRICS & GYNECOLOGY; 1 Week Satellites [address] [facility] [id number] [place] [address] Radiology Services (STAT) Status Reason Specialty Diagnoses / Referred By Referred To Procedures Contact Contact New Request Diagnostic Diagnoses Gallstones Orta Radiology Procedures US GALL BLADDER Alea Cervantes MD [address] [facility] [id number] [place] [id number] Reason for Visit Auth/Cert Status Reason Specialty Diagnoses / Procedures Referred By Lauren marquez To Contact Contact Obstetrics Diagnoses 14WKS IUP, NAUSEA, VOMITING, CHOLELITHIASIS, RUQ PAIN, HYPEREMESIS J10c [address] [place] [phone] Phone: Fax: Encounter Details Date Type Department Care Team Description 10/11/2020 - Hospital Encounter Obstetrics and Marisel Galvan Ga llstones 10/14/2020 Gynecology (J10C) [address] [place] [address] [place] [id number] [place] [id number] [phone] Allergies Active Allergy Reactions Severity Noted Date Comments Ibuprofen Hives 04/15/2014 Giles Hives 04/15/2014 Sodium Citrate (Bulk) Nausea and/or Vomiting 9 documented as of this encounter (statuses as of 10/14/2020) Medications Medication Sig Dispensed Refills Start End Date Status Date vit Take 1 Packet by 30 Each 6 Active [id number] mouth daily. 0 (SELECT-OB + DHA) 29 mg iron-1 mg -250 mg combo packIndications: Supervision of high risk in first trimester proCHLORperazine 10 Take 1 tablet by 20 tablet 0 Active mg mouth every 6 0 tabletIndications: (six) hours as Hyperemesis needed (for gravidarum nausea and vomiting unresponsive to doxylamine/pyrid oxine). doxylamine-pyridoxin Take 2 tablets 90 tablet 3 Active e, vit B6, by mouth at 0 (DICLEGIS) 10-10 mg bedtime. per tabletIndications: Nausea and vomiting during docusate 100 mg Take 1 capsule 30 capsule 0 Active capsuleIndications: by mouth daily. 0 Gallstones May substitute for what is in stock and covered by patient plan pyridoxine, VITAMIN Take 1 tablet by 120 tablet 1 Discontinued B-6, 25 mg mouth every 6 0 20 tabletIndications: (six) hours for Hyperemesis 42 days. gravidarum documented as of this encounter (statuses as of 10/14/2020) Active Problems Problem Noted Date Cholelithiasis affecting in second trimester , antepartum 10/12/2020 Gallstones 10/11/2020 Overview: Added automatically from request for brea weiss [id number] Nausea & vomiting 09/10/2020 9 weeks gestation [...] Obesity in 01/25/2015 Overview: ICD10 Diagnosis Term Station Engineer Utility Encounter for IUD removal and reinsertion 01/18/2015 ASCUS on Pap smear 04/15/2014 Estimated Date of Delivery Comments Yes 04/11/2021 Based on Ultrasound, FHT: 127, Transverse Presentation, Placen ta Too early to evaulate documented as of this encounter (statuses as of 10/14/2020) Resolved Problems Problem Noted Date Resolved Date [...] management 01/25/2015 05/20/2018 Overview: ICD10 Diagnosis Term Station Engineer Utility Breast tenderness in female 01/25/2015 05/20/2018 Not immune to rubella 04/16/2014 06/04/2016 Overview: ICD10 Diagnosis Term Station Engineer Utility documented as of this encounter (statuses as of 10/14/2020) Immunizations Name Administration Dates Next Due HPV9 [...] been in contact with No / Unsure 10/14/2020 11:02 AM MATERIAL CREW SUPERVISOR someone who was confirmed or suspected to have Coronavirus / COVID-19? documented as of this encounter Last Filed Vital Signs Vital Sign Reading Time Taken Comments Blood Pressure 131/72 10/14/2020 12:00 PM MATERIAL CREW SUPERVISOR Pulse 91 10/14/2020 12:00 PM MATERIAL CREW SUPERVISOR Temperature 36.7 C (98.1 F) 10/14/2020 12:00 PM MATERIAL CREW SUPERVISOR Respiratory Rate 18 10/14/2020 12:00 PM MATERIAL CREW SUPERVISOR Oxygen Saturation 96% 10/14/2020 12:00 PM MATERIAL CREW SUPERVISOR Inhaled Oxygen Concentration - - Weight 81.2 kg (179 lb) 10/11/2020 4:22 PM MATERIAL CREW SUPERVISOR Height 162.6 cm (5' 4") 10/11/2020 4:22 PM MATERIAL CREW SUPERVISOR Body Mass Index 30.73 10/11/2020 4:22 PM MATERIAL CREW SUPERVISOR documented in this encounter Progress Notes Frederick Huertas MD - 10/14/2020 10:16 AM CST TAC SURGERY PROGRESS NOTES Date of Admission: 10/11/2020 Date of Service: 10/14/2020 HPI: Suraj Fuentes is a 29 year old female with symptomatic cholelithiasis. The patient does not have any evidence of acute cholecystitis. The patient is 14 weeks (2nd trimester). Her symptoms are severe and she has had multiple visits to the ED in the last month for the same issues of N/V, RUQ pain. 24 HR EVENTS: NAEO. Patient tolerating food, is up and moving with minimal pain. She is ready to go home. OBJECTIVE: Vitals: Temp: [36 C (96.8 F)-37.2 C (99 F)] Pulse: [66-103] Resp: [15-27] BP: (110-146)/(58-91) MAP (mmHg): [95-107] I/O: Intake/Output Summary (Last 24 hours) at 10/14/2020 1016 Last data filed at 10/13/2020 1800 Gross per 24 hour Intake 1958 ml Output Net 1958 ml PE: General: alert and oriented x 3 (person, place, date/time and situation); no apparent distress HEENT: normocephalic atraumatic Respiratory: breathing comfortably on RA, symmetrical chest rise Abdomen: Gravid, soft, ND, minimal TTP near portal sites, minimal bruising at portal sites Musculoskeletal: no clubbing, cyanosis or edema Skin: negative Neurologic: negative Lab CBC BMP PT/INR WBC x10^3 (/uL) Date Value 01/04/2015 7.2 WBC (10*3/L) Date Value 10/14/2020 7.50 NA (mmol/L) Date Value 10/14/2020 131 (L) No results found for: PT RBC x10^6 (/uL) Date Value 01/04/2015 4.92 RBC (10*6/L) Date Value 10/14/2020 4.15 K (mmol/L) Date Value 10/14/2020 3.8 No results found for: PTINR PLT x10^3 (/uL) Date Value 01/04/2015 202 PLT (10*3/L) Date Value 10/14/2020 152 (L) CALCIUM (mg/dL) Date Value 10/14/2020 8.9 HGB Date Value 10/14/2020 12.9 g/dL 01/04/2015 15.2 G/DL (H) CL (mmol/L) Date Value 10/14/2020 103 aPTT HCT (%) Date Value 10/14/2020 36.4 01/04/2015 43.5 BUN (mg/dL) Date Value 10/14/2020 3 (L) No results found for: APTTPAT CREATININE (mg/dL) Date Value 10/14/2020 0.48 (L) GLUCOSE (mg/dL) Date Value 10/14/2020 99 CO2 TOTAL (mmol/L) Date Value 10/14/2020 23 No results found for: CBLDN No results found for: CGS No results found for: CSP No results found for: CBF No results found for: FFUN No results found for: CAFB Medications: Current Facility-Administered Medications Medication Dose Route Frequency Last Rate Last Admin D5W-LR IV infusion 1,000 mL 1,000 mL IV Infusion CONTINUOUS 75 mL/hr at 10/13/20 2307 1,000 mL at 10/13/20 2307 alum-mag hydroxide-simeth (MAALOX PLUS / MAG-AL PLUS) 200-200-20 mg/5 mL suspension 30 mL 30 mLOral Q6HPRN docusate calcium (SURFAK) capsule 240 mg 240 mg Oral QHSPRN indomethacin (INDOCIN) capsule 25 mg 25 mg Oral Q6H 25 mg at 10/14/20 0559 magnesium hydroxide (MILK OF MAGNESIA) 400 mg/5 mL suspension 30 mL 30 mL Oral QDAILYPRN vitamin w/FA (PRENATABS RX) tablet 1 tablet 1 tablet Oral DAILY Stopped at 10/12/20 0900 diphenhydrAMINE (BENADRYL) injection 25 mg 25 mg Slow IV Push Q4HPRN docusate (COLACE) capsule 100 mg 100 mg Oral DAILY 100 mg at 10/14/20 0959 naloxone (NARCAN) injection 0.1 mg 0.1 mg Slow IV Push SEE-INSTRUCTIONS ondansetron (ZOFRAN (PF)) injection 4 mg 4 mg Slow IV Push Q6HPRN 4 mg at 10/13/20 1333 proCHLORperazine (COMPAZINE) 10 mg in NaCl 0.9% (NS) piggyback 10 mg IV Piggyback Q6HPRN 10 mg at 10/14/20 0656 proMETHazine (PHENERGAN) 25 mg in NaCl 0.9% (NS) 50 mL IV piggyback 25 mg IV Piggyback [id number] mg at 10/13/20 2305 sennosides (SENOKOT) tablet 8.6 mg 8.6 mg Oral DAILY 8.6 mg at 10/14/20 1000 ASSESSMENT: Ms. Fuentes is a 29 year old female who is 14 weeks s/p lap olinda on 10/13/20 and progressingwell. Plan: - Reg diet - Pain control per primary - Ok to discharge from trauma surgery standpoint - Patient instructed to do no heavy lifting, or strenuous activities for at least 4 weeks. - Follow up with gen surgery C at [facility] clinic on 10/25/20 Frederick Huertas M.D. Orthopaedic Surgery PGY-1 RIAL CREW SUPERVISOR Associated attestation - Jamie Holden MD - 10/14/2020 10:36 AM CSTI reviewed the patient's chart and examined the patient on 10/14/[address] Huertas's note as written. I actively participated in the decision-making process. Please see the resident's note for additional details. OK for discharge from my perspective Follow up in clinic MD Duncan Kimbrough Daphne, MD - 10/14/2020 7:24 AM CST ANTEPARTUM PROGRESS NOTE 10/14/2020 7:24 AM Subjective: Patient has no complaints. She denies vaginal bleeding, denies leakage of fluid, denies contractions. She is tolerating PO and feels "much better". She would like to go home today. Objective: Vitals: Temp: [36 C (96.8 F)-37.2 C (99 F)] Pulse: [63-103] Resp: [15-27] BP: (109-146)/(45-91) MAP (mmHg): [95-107] Patient Vitals for the past 24 hrs: BP Temp Temp src Pulse Resp SpO2 10/14/20 0400 110/58 36.8 C (98.2 F) Oral 66 18 98 % 10/14/20 0000 111/60 36.7 C (98.1 F) Oral 79 17 100 % 10/13/20 2000 135/69 36.8 C (98.2 F) Oral 94 18 100 % 10/13/20 1530 132/80 36.9 C (98.4 F) Oral 90 20 100 % 10/13/20 1500 (!) 146/87 95 27 100 % 10/13/20 1445 134/77 97 17 100 % 10/13/20 1430 137/83 103 16 100 % 10/13/20 1415 133/83 89 15 100 % 10/13/20 1402 (!) 144/91 36 C (96.8 F) Tympanic 95 20 100 % 10/13/20 1135 130/66 37.2 C (99 F) Oral 80 18 100 % 10/13/20 0800 109/45 36.8 C (98.2 F) Oral 63 18 100 % Physical Exam: General: patient alert and in no acute distress HEENT: symmetric, negative for masses Lungs: unlabored breathing Cardiology: peripheral pulses intact and regular Abdomen: Gravid and soft, non-tender, non-distended, no abnormal masses palpated Extremities: no clubbing, cyanosis, or edema Incision: Dermabond clean and dry Neuro: patient moving all extremities, no facial droop : deferred Medications: Current Facility-Administered Medications Medication Dose Route Frequency Last Rate Last Admin D5W-LR IV infusion 1,000 mL 1,000 mL IV Infusion CONTINUOUS 75 mL/hr at 10/13/20 2307 1,000 mL at 10/13/20 2307 alum-mag hydroxide-simeth (MAALOX PLUS / MAG-AL PLUS) 200-200-20 mg/5 mL suspension 30 mL 30 mLOral Q6HPRN docusate calcium (SURFAK) capsule 240 mg 240 mg Oral QHSPRN indomethacin (INDOCIN) capsule 25 mg 25 mg Oral Q6H 25 mg at 10/14/20 0559 magnesium hydroxide (MILK OF MAGNESIA) 400 mg/5 mL suspension 30 mL 30 mL Oral QDAILYPRN vitamin w/FA (PRENATABS RX) tablet 1 tablet 1 tablet Oral DAILY Stopped at 10/12/20 0900 diphenhydrAMINE (BENADRYL) injection 25 mg 25 mg Slow IV Push Q4HPRN docusate (COLACE) capsule 100 mg 100 mg Oral DAILY Stopped at 10/12/20 0900 naloxone (NARCAN) injection 0.1 mg 0.1 mg Slow IV Push SEE-INSTRUCTIONS ondansetron (ZOFRAN (PF)) injection 4 mg 4 mg Slow IV Push Q6HPRN 4 mg at 10/13/20 1333 proCHLORperazine (COMPAZINE) 10 mg in NaCl 0.9% (NS) piggyback 10 mg IV Piggyback Q6HPRN 10 mg at 10/14/20 0656 proMETHazine (PHENERGAN) 25 mg in NaCl 0.9% (NS) 50 mL IV piggyback 25 mg IV Piggyback [id number] mg at 10/13/20 2305 sennosides (SENOKOT) tablet 8.6 mg 8.6 mg Oral DAILY Stopped at 10/12/20 0900 ASSESSMENT AND PLAN Suraj Nicoleeis a29 year [id number] for cholelithiasis. HD#4 Cholelithiasis s/p Lap Cholecystectomy - Admitted 09/09 for hyperemesis gravidarum,RUQ US showed sludge and small gallstones -transferredyesterdayfrom OSH for increasing RUQ pain andnausea/vomitingsince Saturday - RUQOSHUS 10/10 showed cholelithiasis with moderate amount of sludge - s/p Laparoscopic Cholecystectomy performed by General Surgery, please see op report - This AM, tolerating PO diet and denies nausea and vomiting Hyperemesis Gravidarum - alternates compazine and phenergan at home with some relief - based on 5 weeks persistent n/v, ketonuria, weight loss - weight 85.4 kg at initial -->08/1681.2 kg - endorses multiple ED visits for the same complaint - Transition to PO regimen today - Electrolytes currently WNL Previous x1 - G1, G2 via - G3 via PCS 11/2018 due to breech presentation at 37w - Documented LTCS at [facility] - Desires possibleTOLAC Hx PTD - G1 at 34w - G2 at 36w - Per patient she went into PTL due to "stress" - Patient with history of labor, candidate for [place] Injections, will initiate process for 16weeks COVID-19 SCREEN: Lab Results Component Value Date/Time COVID19 Not Detected 10/11/2020 04:19 PM Antepartum course reviewed -early1 h124, seronegative, Rnot immune, VZVequiv,A positive/IATnegative, GBSunk, PapASCUS 11/27/17 - H/H, plt:13.9/ 39.3,180on 09/09/20 -[facility] Fetus - Presentation on admission:variable -FHT 143bpm Plan: Patient has met postoperative milestones, will plan for discharge today with home meds ordered. Patient candidate for 17OHP injections and serial cervical lengths. Laura Mcdermott MD RIAL CREW SUPERVISOR Associated attestation - Matthew Izquierdo MD - 10/14/2020 12:13 PM CSTCase reviewed, patient seen, agree with Dr. Romero.Chevy Machuca MD - 10/13/2020 1:45 PM CSTDate of Service: 10/13/2020 Faculty physician: Person Resident physician: Crystal Rogers MD, Chevy Machuca MD Date of surgery: 10/13/2020 Pre-op diagnosis: symptomatic cholelithiasis Post-op diagnosis: symptomatic cholelithiasis Procedures: laparoscopic cholecystectomy INDICATION/CONSENT Patient is a 29 year old female presenting with symptomatic cholelithiasis based on physical exam and laboratory and imaging findings. Risks, benefits and alternatives along with possible complications have been discussed with the patient who expresses understanding and consents to procedures. OPERATION The patient was brought to the operating room and placed in the supine position. The patient was placed under general anesthesia. SCDs were donned and antibiotics were given. An orogastric tube was placed for gastric decompression. The patient's abdomen was prepped and draped in the usual sterile fashion and a timeout was performed. Pneumoperitoneum was achieved via an optiview trochar in the RUQ. The camera was inserted and the abdomen was explored. NO injuries from initial trochar placement were noted. The patient was placed in steep reverse Trendelenburg and was tilted to the left side. An11 mm port was placed the subxiphoid region followed by two 5 mm ports on the right lateral abdomen a nd a 5mm port at the umbilicus. The fundus of the gallbladder was grasped and retracted cephalad. The cystic duct and artery were dissected free from their surrounding structures without significant difficulty using a [place] dissector and a critical view of safety was achieved. Both of these structures were clipped and ligated. The gallbladder was removed from the gallbladder fossa using electrocautery. A small hole was made in the gallbladder during removal off of the liver bed. The gallbladder was placed in a retrieval device and removed from the patient's abdomen via the 11 mm port. A suction weigh and charge worker was inserted and the abdomen was irrigated with a copious amount of saline. The fascia of the 11 mm port site was approximated using 0 Vicryl on a suture passer. The abdomen was checked for hemostasis. All ports were removed under direct visualization. The incisions were approximated with 4-0 Monocryl in an interrupted fashion and Dermabond was placed over the incisions. All counts were correct at the end of the case. There were no apparent complications. The patient was extubated and transferred to the PACU in stable condition. All counts were correct at the end of the case. Chevy Machuca MD General Surgery - PGY3 RIAL CREW SUPERVISOR Associated attestation - Jamie Holden MD - 10/13/2020 3:55 PM CSTI was present and supervised the entire procedure. I have reviewed the operative note and agree MD Navin Kimbrough Joshua, MD - 10/13/2020 9:20 AM CSTPlan OR today for cholecystectomy Discussed risks in detail with patient, including risk of demise and she wishes to proceed. Informed consent obtained Jamie Holden MD Laura Ojeda MD - 10/13/2020 7:54 AM CST ANTEPARTUM PROGRESS NOTE 10/13/2020 7:55 AM Subjective: Patient has no complaints. She denies vaginal bleeding, denies leakage of fluid, denies contractions. Objective: Vitals: Temp: [36.7 C (98.1 F)-37.1 C (98.8 F)] Pulse: [64-81] Resp: [17-19] BP: (105-117)/(47-69) Patient Vitals for the past 24 hrs: BP Temp Temp src Pulse Resp SpO2 10/13/20 0415 111/54 36.8 C (98.2 F) Oral 69 18 98 % 10/13/20 0000 114/69 36.7 C (98.1 F) Oral 81 18 98 % 10/12/20 2000 108/56 37.1 C (98.8 F) Oral 73 18 97 % 10/12/20 1600 105/51 36.9 C (98.4 F) Oral 66 19 96 % 10/12/20 1200 117/67 36.8 C (98.2 F) Oral 79 18 99 % 10/12/20 0800 113/47 36.7 C (98.1 F) Oral 64 17 100 % Physical Exam: General: patient alert and in no acute distress HEENT: symmetric, negative for masses Lungs: unlabored breathing Cardiology: RRR Abdomen: Soft, diffuse tenderness to palpation worse in the RUQ Extremities: no clubbing, cyanosis, or edema Neuro: patient moving all extremities, no facial droop : deferred Medications: Current Facility-Administered Medications Medication Dose Route Frequency Last Rate Last Admin alum-mag hydroxide-simeth (MAALOX PLUS / MAG-AL PLUS) 200-200-20 mg/5 mL suspension 30 mL 30 mLOral Q6HPRN docusate calcium (SURFAK) capsule 240 mg 240 mg Oral QHSPRN indomethacin (INDOCIN) capsule 25 mg 25 mg Oral Q6H magnesium hydroxide (MILK OF MAGNESIA) 400 mg/5 mL suspension 30 mL 30 mL Oral QDAILYPRN vitamin w/FA (PRENATABS RX) tablet 1 tablet 1 tablet Oral DAILY Stopped at 10/12/20 0900 D5W-LR IV infusion 1,000 mL 1,000 mL IV Infusion CONTINUOUS 125 mL/hr at 10/12/20 1531 1,000 mLat 10/12/20 1531 diphenhydrAMINE (BENADRYL) injection 25 mg 25 mg Slow IV Push Q4HPRN docusate (COLACE) capsule 100 mg 100 mg Oral DAILY Stopped at 10/12/20 0900 morpHINE 2 mg/mL LOAD & RESCUE INJECTION SYRG Slow IV Push SEE-INSTRUCTIONS morpHINE 30 mg/30 mL (fixed dose) MOBILE GAME ENGINEER injection Intravenous CONTINUOUS Dose/Rate Verify at 10/12/20 0704 naloxone (NARCAN) injection 0.1 mg 0.1 mg Slow IV Push SEE-INSTRUCTIONS ondansetron (ZOFRAN (PF)) injection 4 mg 4 mg Slow IV Push Q6HPRN 4 mg at 10/13/20 0044 proCHLORperazine (COMPAZINE) 10 mg in NaCl 0.9% (NS) piggyback 10 mg IV Piggyback Q6HPRN 10 mg at 10/13/20 0001 proMETHazine (PHENERGAN) 25 mg in NaCl 0.9% (NS) 50 mL IV piggyback 25 mg IV Piggyback [id number] mg at 10/12/20 1757 sennosides (SENOKOT) tablet 8.6 mg 8.6 mg Oral DAILY Stopped at 10/12/20 0900 IMAGING 10/11 RIGHT UPPER QUADRANT ULTRASOUND HISTORY: RUQ pain, h/o gallstones TECHNIQUE: Survey ultrasound imaging of the abdomen was performed focused on the liver, biliary system, and spleen including color Doppler evaluation of the main portal vein with telecommunications sales representative images obtained. COMPARISON: 09/09/2020. FINDINGS: LIVER: Liver measures 14.8 cm in craniocaudal dimension. Normal echo-texture and contour. No focal hepatic lesion to the extent visualized. Normal hepatopetal flow within the main portal vein. The main portal vein measures 1.0 cm in AP diameter at the mauricio hepatis. GALLBLADDER: Gallbladder contains gallbladder sludge and possibly some small gallstones. Gallbladder wall measures 2 mm in maximal thickness, normal. No pericholecystic fluid. Sonographic Morris sign is not accurately assessed as the patient has been given pain medication. The common bile duct measures 3 mm AP diameter at mauricio hepatis, normal. RIGHT KIDNEY: The visualized portion of the right kidney is unremarkable. PANCREAS: The visualized portions of the pancreatic neck and proximal body appear unremarkable. Pancreatic tail is obscured by bowel gas. IMPRESSION Biliary sludge without pericholecystic free fluid or inflammatory change. Preliminary Report Dictated by Resident: Minor Sanchez I, Bronson Ocampo MD., have reviewed this study and agree with the above report. ASSESSMENT AND PLAN Suraj Fuentes is a 29 year old at 14w2d admitted for cholelithiasis. HD#3 Cholelithiasis - Admitted 09/09 for hyperemesis gravidarum, RUQ US showed sludge and small gallstones - transferred yesterday from OSH for increasing RUQ pain andnausea/vomitingsince Saturday - RUQOSHUS 10/10 showed cholelithiasis with moderate amount of sludge - currently on Morphine MOBILE GAME ENGINEER for pain - Currently NPO 10/11/2020 18:59 10/11/2020 22:46 WBC x10^3 6.51 6.49 HGB 12.4 13.6 HCT 36.0 39.1 PLT x10^3 172 170 NA 133 (L) 132 (L) K 3.8 3.6 CL 104 103 BUN <2 (L) <2 (L) CREATININE 0.36 (L) 0.38 (L) CALCIUM 8.3 (L) 8.9 MAGNESIUM 1.8 ALBUMIN 2.9 (L) 3.7 AMYLASE <30 (L) 32 (L) LIPASE 21 35 AST(SGOT) 13 16 ALK PHOS 37 49 Hyperemesis Gravidarum - alternates compazine and pheregan at home with some relief -based on 5 weeks persistent n/v, ketonuria, weight loss -weight 85.4 kg at initial -->08/1681.2 kg -endorses multiple ED visits for the same complaint - IV phenergan and compazine ordered as patient is NPO - Electrolytes currently WNL Previous x1 - G1, G2 via - G3 via PCS 11/2018 due to breech presentation at 37w - Documented LTCS at [facility] - Desires possible TOLAC Hx PTD - G1 at 34w - G2 at 36w - Per patient she went into PTL due to "stress" COVID-19 SCREEN: Lab Results Component Value Date/Time COVID19 Not Detected 10/11/2020 04:19 PM Antepartum course reviewed -early h124, seronegative, Rnot immune, VZVequiv,A positive/IATnegative, GBSunk, PapASCUS 11/27/17 - H/H, plt:13.9/ 39.3,180on 09/09/20 -[facility] Fetus - Presentation on admission:variable -FHT 143bpm Plan: Patient posted to OR schedule as add on. Indocin given today for procedure. Laura Mcdermott MD RIAL CREW SUPERVISOR Associated attestation - Marisel Galvan MD - 10/13/2020 10:52 AM MATERIAL CREW SUPERVISOR I was rounding M faculty for this patient and was involved and agree with antepartum planning. Shewas seen and examined by me and the resident. 29 year old at 14w2d admitted for cholelithiasis. HD#3 Cholelithiasis - Admitted 09/09 for hyperemesis gravidarum, RUQ US showed sludge and small gallstones - transferred yesterday from OSH for increasing RUQ pain and nausea/vomiting since Saturday - RUQ OSH US 10/10 showed cholelithiasis with moderate amount of sludge - currently on Morphine MOBILE GAME ENGINEER for pain - Currently NPO 10/11/2020 18:59 10/11/2020 22:46 WBC x10^3 6.51 6.49 HGB 12.4 13.6 HCT 36.0 39.1 PLT x10^3 172 170 NA 133 (L) 132 (L) K 3.8 3.6 CL 104 103 BUN <2 (L) <2 (L) CREATININE 0.36 (L) 0.38 (L) CALCIUM 8.3 (L) 8.9 MAGNESIUM 1.8 ALBUMIN 2.9 (L) 3.7 AMYLASE <30 (L) 32 (L) LIPASE 21 35 AST(SGOT) 13 16 ALK PHOS 37 49 Hyperemesis Gravidarum - alternates compazine and pheregan at home with some relief -based on 5 weeks persistent n/v, ketonuria, weight loss -weight 85.4 kg at initial --> 09/09 81.2 kg -endorses multiple ED visits for the same complaint - IV phenergan and compazine ordered as patient is NPO - Electrolytes currently WNL Previous x1 - G1, G2 via - G3 via PCS 11/2018 due to breech presentation at 37w - Documented LTCS at [facility] - Desires possible TOLAC Hx PTD - G1 at 34w - G2 at 36w - Per patient she went into PTL due to "stress" COVID-19 SCREEN: Lab Results Component Value Date/Time COVID19 Not Detected 10/11/2020 04:19 PM Antepartum course reviewed - early 1 h 124, sero negative, Rnot immune, VZVequiv, A positive/IAT negative, GBS unk, Pap ASCUS 11/27/17 - H/H, plt: 13.9 / 39.3, 180 on 09/09/20 - [facility] Fetus - Presentation on admission: variable - FHT 143bpm Plan: Patient posted to OR schedule as add on. Indocin given today for procedure. Armond Patricio MD - 10/12/2020 12:25 PM CST TAC SURGERY PROGRESS NOTES Date of Admission: 10/11/2020 Date of Service: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 RUQ/epigastric region, + Morris's, voluntary guarding, non-distended CHEST: regular rate EXTREMITIES/JOINTS: atraumatic GENERAL: moderate distress, crying due to pain, actively vomiting GENETALIA AND PERINEUM: not examined HEENT: NCAT, PERRL, EOMI MUSCULOSKELETAL: FROM NECK: supple NEUROLOGIC EXAM: no focal deficits PULMONARY: normal effort SKIN/DEPENDENT AREAS: warm/dry LABORATORY CBC BMP PT/INR WBC x10^3 (/uL) Date Value 01/04/2015 7.2 WBC (10*3/L) Date Value 10/11/2020 6.51 NA (mmol/L) Date Value 10/11/2020 133 (L) No results found for: PT RBC x10^6 (/uL) Date Value 01/04/2015 4.92 RBC (10*6/L) Date Value 10/11/2020 4.06 K (mmol/L) Date Value 10/11/2020 3.8 No results found for: PTINR PLT x10^3 (/uL) Date Value 01/04/2015 202 PLT (10*3/L) Date Value 10/11/2020 172 CALCIUM (mg/dL) Date Value 10/11/2020 8.3 (L) HGB Date Value 10/11/2020 12.4 g/dL 01/04/2015 15.2 G/DL (H) CL (mmol/L) Date Value 10/11/2020 104 aPTT HCT (%) Date Value 10/11/2020 36.0 01/04/2015 43.5 BUN (mg/dL) Date Value 10/11/2020 <2 (L) No results found for: APTTPAT CREATININE (mg/dL) Date Value 10/11/2020 0.36 (L) GLUCOSE (mg/dL) Date Value 10/11/2020 544 (HH) CO2 TOTAL (mmol/L) Date Value 10/11/2020 21 (L) I have reviewed the patient's labs. All labs are within normal limits. RADIOLOGY Us Gall Bladder Result Date: 10/11/2020 Biliary sludge without pericholecystic free fluid or inflammatory change. Preliminary Report Dictated by Resident: Minor Sanchez I, Bronson Ocampo MD., have reviewed this study and agree with the above report. INJURIES/PROBLEMS/DIAGNOSES and TREATMENT PLAN: Diagnosis- Suraj Fuentes is a 29 year old female with symptomatic cholelithiasis. The patient does not have any evidence of acute cholecystitis. The patient is 14 weeks (2ndtrimester). Her symptoms are severe and she has had multiple visits to the ED in the last month forthe same issues of N/V, RUQ pain. LFT' are normal and do not exhibit any evidence of obstruction. Patient will need her gallbladder removed surgically. Consent has been obtained. Time and date of surgery pending and will be discussed among multi-specialty conference in the AM of10/12/2020. Recommend pain control (may use narcotics) and anti-emetics. Recommend anti-biotics as prophylaxis against acute cholecystitis and cholangitis. Remain NPO for possible surgery. Dr. Valadez, Faculty, was notified of admission on 10/11/2020 at 2217. Marcelo Richmond MD, MPH 10/12/2020 12:05 AM General Surgery Chief Resident PGY-5 [employer]IAL CREW SUPERVISOR Associated attestation - Marcelo Valadez MD - 10/13/2020 10:06 AM CSTI personally examined the patient on 10/[address] Richmond's note. I actively participated in the decision-making process. Please see the resident's note for additional details. documented in this encounter Miscellaneous Notes Care Plan - Poonam Mccracken RN - 10/14/2020 9:19 AM MATERIAL CREW SUPERVISOR Problem: Discharge Planning - Antepartum Goal: Absence of seizure activity Outcome: Adequate for discharge Goal: Absence of venous thromboembolism Outcome: Adequate for discharge Goal: Adequate for discharge Outcome: Adequate for discharge Goal: Blood pressure within specified parameters Outcome: Adequate for discharge Problem: Pain Goal: Control of pain at or below patient's documented comfort goal Outcome: Adequate for discharge Goal: Reduction in pain sensation Outcome: Adequate for discharge are Plan - Cyndi Gaming RN - 10/13/2020 8:24 PM MATERIAL CREW SUPERVISOR Problem: Discharge Planning - Antepartum Goal: Absence of seizure activity Outcome: Progressing as expected Goal: Absence of venous thromboembolism Outcome: Progressing as expected Goal: Adequate for discharge Outcome: Progressing as expected Goal: Blood pressure within specified parameters Outcome: Progressing as expected Problem: Pain Goal: Control of pain at or below patient's documented comfort goal Outcome: Progressing as expected Goal: Reduction in pain sensation Outcome: Progressing as expected [employer] CREW SUPERVISOR Care Plan - Elizabeth Rodriguez RN - 10/13/2020 10:20 AM MATERIAL CREW SUPERVISOR Problem: Discharge Planning - Antepartum Goal: Absence of seizure activity Outcome: Progressing as expected Goal: Absence of venous thromboembolism Outcome: Progressing as expected Goal: Adequate for discharge Outcome: Progressing as expected Goal: Blood pressure within specified parameters Outcome: Progressing as expected Problem: Pain Goal: Control of pain at or below patient's documented comfort goal Outcome: Progressing as expected are Kirsten Styles RN - 10/12/2020 10:42 PM MATERIAL CREW SUPERVISOR Problem: Discharge Planning - Antepartum Goal: Absence of seizure activity Outcome: Progressing as expected Goal: Absence of venous thromboembolism Outcome: Progressing as expected Goal: Adequate for discharge Outcome: Progressing as expected Goal: Blood pressure within specified parameters Outcome: Progressing as expected are Plan - Elizabeth Rodriguez RN - 10/12/2020 9:54 AM MATERIAL CREW SUPERVISOR Problem: Discharge Planning - Antepartum Goal: Absence of seizure activity Outcome: Progressing as expected Goal: Absence of venous thromboembolism Outcome: Progressing as expected Goal: Adequate for discharge Outcome: Progressing as expected Goal: Blood pressure within specified parameters Outcome: Progressing as expected Problem: Pain Goal: Control of pain at or below patient's documented comfort goal Outcome: Progressing as expected are Plan - Mae Yuan RN - 10/12/2020 2:58 AM MATERIAL CREW SUPERVISOR Problem: Discharge Planning - Antepartum Goal: Absence of seizure activity Outcome: Progressing as expected Goal: Absence of venous thromboembolism Outcome: Progressing as expected Goal: Adequate for discharge Outcome: Progressing as expected Goal: Blood pressure within specified parameters Outcome: Progressing as expected Problem: Pain Goal: Control of pain at or below patient's documented comfort goal Outcome: Progressing as expected Goal: Reduction in pain sensation Outcome: Progressing as expected are Plan - Jessica Whatley RN - 10/11/2020 11:21 PM MATERIAL CREW SUPERVISOR Problem: Intrapartum process (including labor pain) Goal: Absence of or reduction of complications of labor Outcome: Progressing as expected Goal: Able to cope with pain Outcome: Progressing as expected Goal: Adequate to move to next level of care Outcome: Progressing as expected Goal: Reduction in pain sensation Outcome: Progressing as expected RIAL CREW SUPERVISOR documented in this encounter Plan of Treatment Date Type Specialty Care Team Description 10/24/2020 Routine Visit [facility]ell[facility] Vitaliy[facility] [address], [place] [address] [phone] 10/25/2020 Daycare Provider Visit Maternal Medicine 10/31/2020 Daycare Provider Visit Maternal Medicine 11/01/2020 Office Visit Trauma Surgery Service/[place], Surgery C 11/08/2020 Daycare Provider Visit Maternal Medicine 11/15/2020 Daycare Provider Visit Maternal Medicine 11/22/2020 Daycare Provider Visit Maternal Medicine 11/29/2020 Daycare Provider Visit Maternal Medicine 12/13/2020 Daycare Provider Visit Maternal Medicine Name Type Priority Associated Diagnoses Date/Ti me LAB ONLY COVID LAB Routine 10/11/2020 4 :19 PM INTERPRETATION MATERIAL CREW SUPERVISOR SURGICAL PATHOLOGY EXAM LAB STAT 09/25 1:18 PM MATERIAL CREW SUPERVISOR Name Type Priority Associated Diagnoses Order S chedule LAB ONLY COVID LAB NICK ONCE for 1 Oc currences INTERPRETATION starting 09/25 until 0, 1 completed SURGICAL PATHOLOGY EXAM LAB Routine Rele ase Upon Ordering for 1 Occurrenc es starting 2019, 1 completed Health Maintenance Due Date Last Done Comments PNEUMOCOCCAL 0-64 YEARS 1996 COMBINED SERIES (1 of 3 - PCV13) INFLUENZA VACCINE (#1) 2020 PAP SMEAR 11/27/2020 11/27/2017, 04/15/2014, 08/08/2012, Additional history exists Depression Screening 08/03/2021 08/03/2020 VARICELLA VACCINES (2 of 2 08/03/2021 12/20/2018 Postp oned from - 13+ 2-dose series) 01/17/2019 ( or ) DTaP,Tdap,and Td Vaccines 12/11/2028 12/11/2018, 04/06/2015 , (4 - Td) 11/25/2004 documented as of this encounter Procedures Procedure Name Priority Date/Time Associated Comments Diagnosis CBC WITH DIFF STAT 10/14/2020 4:10 Results fo r AM MATERIAL CREW SUPERVISOR this procedure are in the results section. BASIC METABOLIC PANEL Routine 10/14/2020 4:10 Re sults for (NA, K, CL, CO2, AM MATERIAL CREW SUPERVISOR this proced ure GLUCOSE, BUN, are in the CREATININE, CA) results section. HEPATIC FUNCTION PANEL Routine 10/14/2020 4:10 R esults for (12078) AM MATERIAL CREW SUPERVISOR this procedure (ALB,T.PRO,BILI are in the T,BU/BC,ALT,AST,ALK results PHOS) section. LAPAROSCOPIC Level 4 (within 10/13/2020 11:57 Gallstones CHOLECYSTECTOMY 0-5 days) AM MATERIAL CREW SUPERVISOR HEPATIC FUNCTION PANEL STAT 10/13/2020 8:05 R esults for (88065) AM MATERIAL CREW SUPERVISOR this procedure (ALB,T.PRO,BILI are in the T,BU/BC,ALT,AST,ALK results PHOS) section. LIPASE STAT 10/13/2020 8:05 Results for AM MATERIAL CREW SUPERVISOR this procedure are in the results section. CBC WITH DIFF STAT 10/11/2020 10:46 Results fo r PM MATERIAL CREW SUPERVISOR this procedure are in the results section. BASIC METABOLIC PANEL STAT 10/11/2020 10:46 Re sults for (NA, K, CL, CO2, PM MATERIAL CREW SUPERVISOR this proced ure GLUCOSE, BUN, are in the CREATININE, CA) results section. HEPATIC FUNCTION PANEL STAT 10/11/2020 10:46 R esults for (15606) PM MATERIAL CREW SUPERVISOR this procedure (ALB,T.PRO,BILI are in the T,BU/BC,ALT,AST,ALK results PHOS) section. MAGNESIUM STAT Add-On 10/11/2020 10:46 Results for PM MATERIAL CREW SUPERVISOR this procedure are in the results section. LIPASE STAT 10/11/2020 10:46 Results for PM MATERIAL CREW SUPERVISOR this procedure are in the results section. AMYLASE STAT 10/11/2020 10:46 Results for PM MATERIAL CREW SUPERVISOR this procedure are in the results section. POCT GLUCOSE Routine 10/11/2020 9:20 Results for (AUTOMATED) PM MATERIAL CREW SUPERVISOR this procedure are in the results section. US GALL BLADDER STAT 10/11/2020 8:25 Gallstones Results for PM MATERIAL CREW SUPERVISOR this procedure are in the results section. HB ABO GROUPING STAT 10/11/2020 7:00 Results for PM MATERIAL CREW SUPERVISOR this procedure are in the results section. CBC WITH DIFF STAT 10/11/2020 6:59 Results fo r PM MATERIAL CREW SUPERVISOR this procedure are in the results section. BASIC METABOLIC PANEL STAT 10/11/2020 6:59 Re sults for (NA, K, CL, CO2, PM MATERIAL CREW SUPERVISOR this proced ure GLUCOSE, BUN, are in the CREATININE, CA) results section. HEPATIC FUNCTION PANEL STAT 10/11/2020 6:59 R esults for ([id number]) PM MATERIAL CREW SUPERVISOR this procedure (ALB,T.PRO,BILI are in the T,BU/BC,ALT,AST,ALK results PHOS) section. LIPASE STAT 10/11/2020 6:59 Results for PM MATERIAL CREW SUPERVISOR this procedure are in the results section. AMYLASE STAT 10/11/2020 6:59 Results for PM MATERIAL CREW SUPERVISOR this procedure are in the results section. COVID-19 (ID NOW RAPID STAT 10/11/2020 4:19 R esults for TESTING) PM MATERIAL CREW SUPERVISOR this procedure are in the results section. documented in this encounter Results HEPATIC FUNCTION PANEL ([id number]) (ALB,T.PRO,BILI T,BU/BC,ALT,AST,ALK PHOS) (10/14/2020 4:10 AM MATERIAL CREW SUPERVISOR) Pathologist Sig nature TOTAL BILI 0.7 0.1 - 1.1 mg/dL [facility] BILI UNCON 0.5 0.1 - 1.1 mg/dL [facility] BILI CONJ 0.0 0.0 - 0.3 mg/dL [facility] T PROTEIN 5.9 (L) 6.3 - 8.2 g/dL [facility] ALBUMIN 3.1 (L) 3.5 - 5.0 g/dL [facility] ALK PHOS 47 34 - 122 U/L [facility] ALTv 41 (H) 5 - 35 U/L [facility] AST(SGOT) 64 (H) 13 - 40 U/L [facility] Specimen Blood - HAND, RIGHT Performing Organization Address City/State/Zipcode Phone Number [facility] CLIA: [id number] [place] [address] [phone] [place] [address] BASIC METABOLIC PANEL (NA, K, CL, CO2, GLUCOSE, BUN, CREATININE, CA) (10/14/2020 4:10 AM MATERIAL CREW SUPERVISOR) NA 131 (L) 135 - 145 [facility] mmol/L SERVICES K 3.8 3.5 - 5.0 [facility] mmol/L SERVICES CL 103 98 - 108 mmol/L [facility] CO2 TOTAL 23 23 - 31 mmol/L [facility] AGAP 5 2 - 16 [facility] BUN 3 (L) 7 - 23 mg/dL [facility] GLUCOSE 99 70 - 110 mg/dL [facility] CREATININE 0.48 (L) 0.50 - 1.04 [facility] mg/dL SERVICES CALCIUM 8.9 8.6 - 10.6 [facility] mg/dL SERVICES eGFR Calculation 152.9 mL/min/1.73m2 [facility] (Non- SERVICES Ug[place]an) eGFR Calculation 185.3 mL/min/1.73m2 [facility] () SERVICES Specimen Blood - HAND, RIGHT Narrative Performed At [employer] [...] Number [facility] CLIA: [id number] [place], [place] [id number] [address] [place] [address] Blvd CBC WITH DIFF (10/14/2020 4:10 AM MATERIAL CREW SUPERVISOR) Pathologist Sig nature WBC 7.50 4.30 - 11.10 [facility] 10*3/L SERVICES RBC 4.15 3.93 - 5.25 [facility] 10*6/L SERVICES HGB 12.9 11.6 - 15.0 [facility] g/dL SERVICES HCT 36.4 35.7 - 45.2 % [facility] MCV 87.7 80.6 - 95.5 fL [facility] MCH 31.1 25.9 - 32.8 pg [facility] MCHC 35.4 (H) 31.6 - 35.1 [facility] g/dL SERVICES RDW-SD 39.5 39.0 - 49.9 fL [facility] RDW-CV 12.3 12.0 - 15.5 % [facility] PLT 152 (L) 166 - 358 [facility] 10*3/L SERVICES MPV 9.9 9.5 - 12.9 fL [facility] NRBC/100 WBC 0.0 0.0 - 10.0 /100 [facility] WBCs SERVICES NRBC x10^3 <0.01 10*3/L [facility] GRAN MAT (NEUT) % 72.8 % [facility] IMM GRAN % 0.50 % [facility] LYMPH % 20.3 % [facility] MONO % 5.9 % [facility] EOS % 0.4 % [facility] BASO % 0.1 % [facility] GRAN MAT x10^3(ANC) 5.46 1.88 - 7.09 [facility] 10*3/uL SERVICES IMM GRAN x10^3 0.04 0.00 - 0.06 [facility] 10*3/uL SERVICES LYMPH x10^3 1.52 1.32 - 3.29 [facility] 10*3/uL SERVICES MONO x10^3 0.44 0.33 - 0.92 [facility] 10*3/uL SERVICES EOS x10^3 0.03 0.03 - 0.39 [facility] 10*3/uL SERVICES BASO x10^3 <0.03 0.01 - 0.07 [facility] 10*3/uL SERVICES Specimen Blood - HAND, RIGHT Performing Organization Address City/State/Zipcode Phone Number [facility] CLIA: [id number] [place] [address] [phone] [facility] LIPASE (10/13/2020 8:05 AM MATERIAL CREW SUPERVISOR) Pathologist Sig nature LIPASE 27 0 - 220 U/L [facility] Specimen Blood - VENOUS Performing Organization Address City/[facility] Cent[facility]ode Phone Number [facility] CLIA: [id number] [place] [address] [phone] [facility] HEPATIC FUNCTION PANEL ([id number]) (ALB,T.PRO,BILI T,BU/BC,ALT,AST,ALK PHOS) (10/13/2020 8:05 AM MATERIAL CREW SUPERVISOR) Pathologist Sig nature TOTAL BILI 0.9 0.1 - 1.1 mg/dL [facility] BILI UNCON 0.7 0.1 - 1.1 mg/dL [facility] BILI CONJ 0.0 0.0 - 0.3 mg/dL [facility] T PROTEIN 6.0 (L) 6.3 - 8.2 g/dL [facility] ALBUMIN 3.4 (L) 3.5 - 5.0 g/dL [facility] ALK PHOS 40 34 - 122 U/L [facility] ALTv 12 5 - 35 U/L [facility] AST(SGOT) 20 13 - 40 U/L [facility] Specimen Blood - VENOUS Performing Organization Address City/[facility] Centercova Phone Number [facility] CLIA: [id number] [place] [address] [place] [address] MAGNESIUM (10/11/2020 10:46 PM MATERIAL CREW SUPERVISOR) Pathologist Sig nature MAGNESIUM 1.8 1.7 - 2.4 mg/dL [facility] Specimen Blood - VENOUS Performing Organization Address City/[facility]/Zipcode Phone Number [facility] CLIA: [id number] [place] [address] [place] [address] AMYLASE (10/11/2020 10:46 PM MATERIAL CREW SUPERVISOR) Pathologist Sig nature CHEY 32 (L) 35 - 110 U/L [facility] Specimen Blood - VENOUS Performing Organization Address City/[facility]/Zipcode Phone Number [facility] CLIA: [id number] [place] [address] [place] [address] LIPASE (10/11/2020 10:46 PM MATERIAL CREW SUPERVISOR) Pathologist Sig nature LIPASE 35 0 - 220 U/L [facility] Specimen Blood - VENOUS Performing Organization Address [facility]/Zipcode Phone Number [facility] CLIA: [id number] [place] [address] [place] [address] HEPATIC FUNCTION PANEL ([id number]) (ALB,T.PRO,BILI T,BU/BC,ALT,AST,ALK PHOS) (10/11/2020 10:46 PM MATERIAL CREW SUPERVISOR) Pathologist Sig nature TOTAL BILI 0.7 0.1 - 1.1 mg/dL [facility] BILI UNCON 0.7 0.1 - 1.1 mg/dL [facility] BILI CONJ 0.0 0.0 - 0.3 mg/dL [facility] T PROTEIN 6.5 6.3 - 8.2 g/dL [facility] ALBUMIN 3.7 3.5 - 5.0 g/dL [facility] ALK PHOS 49 34 - 122 U/L [facility] ALTv 12 5 - 35 U/L [facility] AST(SGOT) 16 13 - 40 U/L [facility] Specimen Blood - VENOUS Performing Organization Address City/[facility]/Zipcode Phone Number [facility] CLIA: [id number] [place] [address] [place] [address] BASIC METABOLIC PANEL (NA, K, CL, CO2, GLUCOSE, BUN, CREATININE, CA) (10/11/2020 10:46 PM MATERIAL CREW SUPERVISOR) NA 132 (L) 135 - 145 [facility] mmol/L SERVICES K 3.6 3.5 - 5.0 [facility] mmol/L SERVICES CL 103 98 - 108 mmol/L [facility] CO2 TOTAL 21 (L) 23 - 31 mmol/L [facility] AGAP 8 2 - 16 [facility] BUN <2 (L) 7 - 23 mg/dL [facility] GLUCOSE 89 70 - 110 mg/dL [facility] CREATININE 0.38 (L) 0.50 - 1.04 [facility] mg/dL SERVICES CALCIUM 8.9 8.6 - 10.6 [facility] mg/dL SERVICES eGFR Calculation 200.2 mL/min/1.73m2 [facility] (Non- SERVICES [place]an) eGFR Calculation 242.7 mL/min/1.73m2 [facility] () SERVICES [...] Number [facility] CLIA: [id number] [place] [address] [place] [address] CBC WITH DIFF (10/11/2020 10:46 PM MATERIAL CREW SUPERVISOR) Pathologist Sig nature WBC 6.49 4.30 - 11.10 [facility] 10*3/L SERVICES RBC 4.48 3.93 - 5.25 [facility] 10*6/L SERVICES HGB 13.6 11.6 - 15.0 g/dL [facility] HCT 39.1 35.7 - 45.2 % [facility] MCV 87.3 80.6 - 95.5 fL [facility] MCH 30.4 25.9 - 32.8 pg [facility] MCHC 34.8 31.6 - 35.1 g/dL [facility] RDW-SD 39.5 39.0 - 49.9 fL [facility] RDW-CV 12.5 12.0 - 15.5 % [facility] PLT 170 166 - 358 [facility] 10*3/L SERVICES MPV 9.7 9.5 - 12.9 fL [facility] NRBC/100 WBC 0.0 0.0 - 10.0 /100 [facility] WBCs SERVICES NRBC x10^3 <0.01 10*3/L [facility] GRAN MAT (NEUT) % 63.9 % [facility] IMM GRAN % 0.60 % [facility] LYMPH % 27.6 % [facility] MONO % 7.1 % [facility] EOS % 0.6 % [facility] BASO % 0.2 % [facility] GRAN MAT x10^3(ANC) 4.15 1.88 - 7.09 [facility] 10*3/uL SERVICES IMM GRAN x10^3 0.04 0.00 - 0.06 [facility] 10*3/uL SERVICES LYMPH x10^3 1.79 1.32 - 3.29 [facility] 10*3/uL SERVICES MONO x10^3 0.46 0.33 - 0.92 [facility] 10*3/uL SERVICES EOS x10^3 0.04 0.03 - 0.39 [facility] 10*3/uL SERVICES BASO x10^3 <0.03 0.01 - 0.07 [facility] 10*3/uL SERVICES Specimen Blood - VENOUS Performing Organization Address City/[facility]/Zipcode Phone Number [facility] CLIA: [id number] [place], [place] [address] [address] [place] [address] POCT GLUCOSE (AUTOMATED) (10/11/2020 9:20 PM MATERIAL CREW SUPERVISOR) Pathologist Sig nature POCT GLU 87 70 - 110 mg/dL [facility] Specimen Blood Performing Organization Address City/[facility]/Zipcode Phone Number [facility] CLIA: [id number] [place] [address] [place] [address] US GALL BLADDER (10/11/2020 8:25 PM MATERIAL CREW SUPERVISOR) Specimen Impressions Performed At PACS/VR/DOSE Biliary sludge without pericholecystic free fluid or i nflammatory change. Preliminary Report Dictated by Resident: Minor Sanchez I, Bronson Ocampo MD., have review ed this study and agree with the above report. Narrative Performed At [facility] PACS/VR/DOSE HISTORY: RUQ pain, h/o gallstones TECHNIQUE: Survey ultrasound imaging of the abdomen wa s performed focused on the liver, biliary system, and spleen including col or Doppler evaluation of the main portal vein with representat haider images obtained. COMPARISON: 09/09/2020. FINDINGS: LIVER: Liver measures 14.8 cm in cranioc audal dimension. Normal echo-texture and contour. No focal hep atic lesion to the extent visualized. Normal hepatopetal flow within the hannah n portal vein. The main portal vein measures 1.0 cm in AP diamet er at the mauricio hepatis. GALLBLADDER: Gallbladder contains gallbl adder sludge and possibly some small gallstones. Gallbladder wall measu res 2 mm in maximal thickness, normal. No pericholecystic fluid. Sonographic Morris s ign is not accurately assessed as the patient has been given p ain medication. The common bile duct measures 3 mm AP diameter at mauricio hepatis, normal. RIGHT KIDNEY: The visualized portion of the right kidn ey is unremarkable. PANCREAS: The visualized portions of the pancreatic ne ck and proximal body appear unremarkable. Pancreatic tail is obscured by bowel gas. Procedure Note [facility], Radiant Results Inft User - 2019 10:15 PM MATERIAL CREW SUPERVISOR RIGHT UPPER QUADRANT ULTRASOUND HISTORY: RUQ pain, h/o gallstones TECHNIQUE: Survey ultrasound imaging of the abdomen was performed focused on the liver, biliary system, and spleen including color Doppler evaluation of the main portal vein with representat haider images obtained. COMPARISON: 09/09/2020. FINDINGS: LIVER: Liver measures 14.8 cm in cranioc audal dimension. Normal echo-texture and contour. No focal hepa tic lesion to the extent visualized. Normal hepatopetal flow wi thin the main portal vein. The main portal vein measures 1.0 cm in AP diamet er at the mauricio hepatis. GALLBLADDER: Gallbladder contains gallbl adder sludge and possibly some small gallstones. Gallbladder wall measu res 2 mm in maximal thickness, normal. No pericholecystic fluid. Sonogr aphic Morris sign is not accurately assessed as the patient has been given p ain medication. The common bile duct measures 3 mm AP diameter at mauricio hepatis, normal. RIGHT KIDNEY: The visualized portion of the right kidney is unremarkable. PANCREAS: The visualized portions of the pancreatic neck and proximal body appear unremarkable. Pancreatic tail is obscured by bowel gas. IMPRESSION Biliary sludge without pericholecystic f ree fluid or inflammatory change. Preliminary Report Dictated by Resident: Minor Sanchez I, Bronson Ocampo MD., have reviewe d this study and agree with the above report. Performing Organization Address City/State/Zipcode Phone Number PACS/VR/DOSE Type and Screen - ONCE STAT (10/11/2020 7:00 PM MATERIAL CREW SUPERVISOR) Pathologist Sig nature ABO & RH A POSITIVE LAB Comment: Performed at [facility] Laboratory Services - [facility] Blood Bank [address] [place] [address] Toll Free: [phone] CLIA No. [id number] IAT Negative LAB Comment: Performed at [facility] Laboratory Services - [facility] Blood [place] [address] Toll Free: [phone] CLIA No. [id number] Specimen Blood - [facility] Performing Organization Address City/State/Zipcode Phone Number BLD LAB BASIC METABOLIC PANEL (NA, K, CL, CO2, GLUCOSE, BUN, CREATININE, CA) (10/11/2020 6:59 PM MATERIAL CREW SUPERVISOR) NA 133 (L) 135 - 145 [facility] mmol/L SERVICES K 3.8 3.5 - 5.0 [facility] mmol/L SERVICES CL 104 98 - 108 mmol/L [facility] SERVICES CO2 TOTAL 21 (L) 23 - 31 mmol/L [facility] SERVICES AGAP 8 2 - 16 [facility] SERVICES BUN <2 (L) 7 - 23 mg/dL [facility] SERVICES GLUCOSE 544 (HH) 70 - 110 mg/dL [facility] SERVICES CREATININE 0.36 (L) 0.50 - 1.04 [facility] mg/dL SERVICES CALCIUM 8.3 (L) 8.6 - 10.6 [facility] mg/dL SERVICES eGFR Calculation 213.1 mL/min/1.73m2 [facility] (Non- SERVICES Ugandan) eGFR Calculation 258.3 mL/min/1.73m2 [facility] () SERVICES Specimen Blood - ARM, LEFT Narrative Performed At [employer] [facility] [employer]omerular [employer]tration [...] in imaging tests) . Performing Organization Address [facility] Phone Number [facility] CLIA: [id number] [place] [address] [place] [address] HEPATIC FUNCTION PANEL ([id number]) (ALB,T.PRO,BILI T,BU/BC,ALT,AST,ALK PHOS) (10/11/2020 6:59 PM MATERIAL CREW SUPERVISOR) Pathologist [facility] TOTAL BILI 0.6 0.1 - 1.1 mg/dL [facility] SERVICES BILI UNCON 0.5 0.1 - 1.1 mg/dL [facility] SERVICES BILI CONJ 0.0 0.0 - 0.3 mg/dL [facility] T PROTEIN 5.1 (L) 6.3 - 8.2 g/dL [facility] SERVICES ALBUMIN 2.9 (L) 3.5 - 5.0 g/dL [facility] ALK PHOS 37 34 - 122 U/L [facility] ALTv 9 5 - 35 U/L [facility] AST(SGOT) 13 13 - 40 U/L [facility] SERVICES Specimen Blood - ARM, LEFT Performing Organization Address [facility] Phone Number [facility] CLIA: [id number] [place] [address] [address] [facility] LIPASE (10/11/2020 6:59 PM MATERIAL CREW SUPERVISOR) Pathologist Sig nature LIPASE 21 0 - 220 U/L [facility] SERVICES Specimen Blood - ARM, LEFT Performing Organization Address City/[facility]/Zipcode Phone Number [facility] CLIA: [id number] [place] [address] [phone] [facility] AMYLASE (10/11/2020 6:59 PM MATERIAL CREW SUPERVISOR) Pathologist Sig nature CHEY <30 (L) 35 - 110 U/L [facility] SERVICES Specimen Blood - ARM, LEFT Performing Organization Address City/[facility]/Zipcode Phone Number [facility] CLIA: [id number] [place] [address] [phone] [facility] CBC WITH DIFF (10/11/2020 6:59 PM MATERIAL CREW SUPERVISOR) Pathologist Sig nature WBC 6.51 4.30 - 11.10 [facility] 10*3/L SERVICES RBC 4.06 3.93 - 5.25 [facility] 10*6/L SERVICES HGB 12.4 11.6 - 15.0 g/dL [facility] SERVICES HCT 36.0 35.7 - 45.2 % [facility] MCV 88.7 80.6 - 95.5 fL [facility] SERVICES MCH 30.5 25.9 - 32.8 pg [facility] SERVICES MCHC 34.4 31.6 - 35.1 g/dL [facility] SERVICES RDW-SD 41.1 39.0 - 49.9 fL [facility] RDW-CV 12.6 12.0 - 15.5 % [facility] PLT 172 166 - 358 [facility] 10*3/L SERVICES MPV 9.8 9.5 - 12.9 fL [facility] NRBC/100 WBC 0.0 0.0 - 10.0 /100 [facility] WBCs SERVICES NRBC x10^3 <0.01 10*3/L [facility] GRAN MAT (NEUT) % 64.9 % [facility] IMM GRAN % 0.50 % [facility] LYMPH % 28.0 % [facility] MONO % 5.8 % [facility] EOS % 0.5 % [facility] BASO % 0.3 % [facility] GRAN MAT x10^3(ANC) 4.23 1.88 - 7.09 [facility] 10*3/uL SERVICES IMM GRAN x10^3 0.03 0.00 - 0.06 [facility] 10*3/uL SERVICES LYMPH x10^3 1.82 1.32 - 3.29 [facility] 10*3/uL SERVICES MONO x10^3 0.38 0.33 - 0.92 [facility] 10*3/uL SERVICES EOS x10^3 0.03 0.03 - 0.39 [facility] 10*3/uL SERVICES BASO x10^3 <0.03 0.01 - 0.07 [facility] 10*3/uL SERVICES Specimen Blood - ARM, LEFT Performing Organization Address City/State/Zipcode Phone Number [facility] CLIA: [id number] [place] [address] [place] [address] COVID-19 ([facility] RAPID TESTING) (10/11/2020 4:19 PM MATERIAL CREW SUPERVISOR) SARS-CoV-2 Rapid ID Not Detected Not Detected [facility] NOW SERVICES Specimen Swab - NASOPHARYNGEAL SWAB Narrative Performed At [facility] COVID-19 Assay is an isothermal nucleic acid [facility] SERVICES amplification test intended for the qualitative detect ion of nucleic acid from SARS-CoV-2 viral RNA in nasopharynge al (PERCUSSION TEACHER) specimens. It is used under Emergency Use [...] jose luis ent testing if clinically indicated. [facility] COVID-19 Assay is an isothermal nucleic acid amplification test intended for the qualitative detect ion of nucleic acid from SARS-CoV-2 viral RNA in nasopharynge al (PERCUSSION TEACHER) specimens. It is used under Emergency Use [...] indicated. Performing Organization Address City/State/Zipcode Phone Number [facility] CLIA: [id number] [place] [address] [place] [address] documented in this encounter Visit Diagnoses Diagnosis Gallstones - Primary Calculus of gallbladder without mention of cholecystitis or obstruction Cholelithiasis affecting in se cond trimester, antepartum Multiparity Maternal varicella, non-immune Supervision of other high-risk Rubella non-immune status, antepartum Other specified complication, antepartum BMI 32.0-32.9,adult Body Mass Index 32.0-32.9, adult Nausea and vomiting during Atypical squamous cells of undetermined significance (ASCUS) on Papanicolaou smear of cervix Previous section complicating p regnancy Previous delivery, unspecified as to episode of care or not applicable documented in this encounter Administered Medications Medication Order MAR Action Action Date Dose Rate Site alum-mag hydroxide-simeth (MAALOX PLUS / MAG-AL PLUS) 200-200-20 mg/5 mL suspension 30 mL 30 mL, Oral, Q6HPRN, Starting Wed at 0033, Until Discontinued, Routine, Indigestion D5W-LR IV infusion 1,000 mL New Bag 10/13/2020 11:07 PM MATERIAL CREW SUPERVISOR 1,000 mL 75 mL/hr at 75 mL/hr, IV Infusion, CONTINUOUS, Starting Magalis 10/13/20 at 2015, Until Discontinued, Routine diphenhydrAMINE (BENADRYL) injection 25 mg 25 mg, Slow IV Push, Q4HPRN, Starting 10/11/20 at 2241, Until Discontinued, Routine, Itching docusate (COLACE) capsule 100 mg Given 10/14/2020 9:59 AM MATERIAL CREW SUPERVISOR 100 mg 100 mg, Oral, DAILY, First dose on Sat10/12/20 at 0900, Until Discontinued, Routine docusate calcium (SURFAK) capsule 240 mg 240 mg, Oral, QHSPRN, Starting 10/12 at 0033, Until Discontinued, Routine, Constipation indomethacin (INDOCIN) capsule 25 mg Given 10/14/2020 5:59 AM MATERIAL CREW SUPERVISOR 25 mg 25 mg, Oral, Q6H, First dose on Sat10/13/20 at 1200, Until Discontinued, Routine Given 10/13/2020 11:05 PM MATERIAL CREW SUPERVISOR 25 mg Given 10/13/2020 4:46 PM MATERIAL CREW SUPERVISOR 25 mg magnesium hydroxide (MILK OF MAGNESIA) 4 00 mg/5 mL suspension 30 mL 30 mL, Oral, QDAILYPRN, Starting Sat at 0033, Until Discontinued, Routine, Constipation naloxone (NARCAN) injection 0.1 mg 0.1 mg, Slow IV Push, SEE-INSTRUCTIONS, Starting Sat12/11/19 at 2241, Until Discontinued, Routine ondansetron (ZOFRAN (PF)) injection 4 mg Given 10/13/2020 1:33 PM MATERIAL CREW SUPERVISOR 4 mg 4 mg, Slow IV Push, Q6HPRN, Starting Sat10/11/20 at 2242, Until Discontinued, NICK, Nausea and Vomiting (N/V) Given 10/13/2020 8:18 AM MATERIAL CREW SUPERVISOR 4 mg Given 10/13/2020 12:44 AM MATERIAL CREW SUPERVISOR 4 mg vitamin w/FA (PRENATABS RX) tab let 1 tablet 1 tablet, Oral, DAILY, First dose on Sat10/12/20 at 0 900, Until Discontinued, Routine proCHLORperazine (COMPAZINE) 10 mg in NaCl Given 10/14/2020 6:5 6 AM MATERIAL CREW SUPERVISOR 10 mg 0.9% (NS) piggyback 10 mg, IV Piggyback, Q6HPRN, Starting Sat10/11/20 at 1737, Until Discontinued, 50 mL Given 10/13/2020 3:55 PM MATERIAL CREW SUPERVISOR 10 mg Given 10/13/2020 12:01 AM MATERIAL CREW SUPERVISOR 10 mg proMETHazine (PHENERGAN) 25 mg in NaCl 0.9% Given 10/13/2020 11:05 PM MATERIAL CREW SUPERVISOR 25 mg (NS) 50 mL IV piggyback 25 mg, IV Piggyback, Q4HPRN, Starting Sat10/11/20 at 1737, Until Discontinued, Routine, Nausea and Vomiting (N/V) Given 10/13/2020 9:33 AM MATERIAL CREW SUPERVISOR 25 mg Given 10/12/2020 5:57 PM MATERIAL CREW SUPERVISOR 25 mg sennosides (SENOKOT) tablet 8.6 mg Given 10/14/2020 10:00 AM MATERIAL CREW SUPERVISOR 8.6 mg 8.6 mg, Oral, DAILY, First dose on Sat10/12/20 at 0900, Until Discontinued, Routine Medication Order MAR Action Action Date Dose Rate Site D5W-LR IV infusion 1,000 mL New Bag 10/12/2020 3:31 PM MATERIAL CREW SUPERVISOR 1,000 mL 125 mL/hr at 125 mL/hr, IV Infusion, CONTINUOUS, Starting Sat10/11/20 at 1845, Until Sat10/13/20 at 2001, Routine New Bag 10/12/2020 7:17 AM MATERIAL CREW SUPERVISOR 1,000 mL 125 mL/hr New Bag 10/11/2020 6:00 PM MATERIAL CREW SUPERVISOR 1,000 mL 125 mL/hr HYDROcodone-acetaminophen (NORCO 5) 5-325 Given 2019 11:05 PM MATERIAL CREW SUPERVISOR 1 tablet mg tablet 1 tablet 1 tablet, Oral, Q6HPRN, Starting Sat10/13/20 at 1757, Until Sat10/14/20 at 0700, Routine, Pain (scale 4-6) HYDROmorphone (DILAUDID) injection 0.2 m g Given 10/13/2020 2:30 PM MATERIAL CREW SUPERVISOR 0.2 mg 0.2 mg, Slow IV Push, Q5MIN PRN, 10 doses, Starting Sat10/13/20 at 1417, Until Sat10/13/20 at 1522, Routine, Pain (scale 7-10), PACU, Use approved by (Faculty): PACU USE -ANESTHESIA SERVICE-HYDROMORPHONE INJECTIONS indomethacin (INDOCIN) capsule 50 mg Given 10/13/2020 6:15 AM MATERIAL CREW SUPERVISOR 50 mg 50 mg, Oral, ONCE, 1 dose, Magalis 10/13/20 at 0600, Routine morpHINE 30 mg/30 mL (fixed dose) MOBILE GAME ENGINEER Dose/Rate Verify 10/12/2020 7:04 AM MATERIAL CREW SUPERVISOR injection New Bag 10/12/2020 12:24 AM MATERIAL CREW SUPERVISOR 30 mg morpHINE injection 2 mg Given 10/11/2020 6:20 PM MATERIAL CREW SUPERVISOR 2 mg 2 mg, Slow IV Push, ONCE, 1 dose, 10/11/20 at 1745, Routine proCHLORperazine (COMPAZINE) tablet 10 m g Given 10/14/2020 12:26 PM MATERIAL CREW SUPERVISOR 10 mg 10 mg, Oral, ONCE, 1 dose, 10/14/20 at 1330, Routine proMETHazine (PHENERGAN) 12.5 mg in NaCl Given 10/13/2020 2:25 PM MATERIAL CREW SUPERVISOR 12.5 mg 0.9% (NS) 50 mL IV piggyback 12.5 mg, IV Piggyback, ONCE, 1 dose, Magalis 10/13/20 at 1545, Routine documented in this encounter Additional Health Concerns Infection Onset Date Last Indicated Resolved Time COVID-19 Rule Out 10/11/2020 10/11/2020 10/11/2020 5: 12 PM MATERIAL CREW SUPERVISOR documented as of this encounter Insurance Payer Benefit Plan / Subscriber ID Effective Phone Address T e Group Dates ASIA BETANCOURT [id number] 2018-Anupmaa Camacho [address] Medic [place] [id number] MANAGED MED[place], [place] documented as of this encounter Advance Directives Type Date Recorded Patient Global Coordinator Explanati on Advance Directives and Living Will Power of Etcher Apprentice Photoengraving Name Relationship Healthcare Agent Relationship Co mmunication Floyd Brown Father Health Care Agent [phone] (Work) Preet Coffey Other Health Care Agent [place] Fuentes Spouse First [facility] Health Care Agent (Mobile)
[2020-10-17] MEDS ORDERED: NA CHLORIDE 0.9% 1,000 ML ONE (12:08)
[2020-10-17] MEDS ORDERED: PROMETHAZINE INJ 25 MG/ML AMP ONE ×2 (12:08→13:45)
[2020-10-17 12:12] LABS: Absolute Lymphocytes (CBC) 1.4 K/uL (0.7-4.9); Basophils % 0.2 % (0-1.3); Hematocrit 39.3 % (36.0-45.0); Lymphocytes % 20.6 % (15.3-44.8); MPV 8.4 fL (7.6-11.3); RBC Red Blood Cell Count 4.48 M/uL (3.86-4.86)
[2020-10-17 12:28] LABS: ALT/SGPT 29 U/L (12-78); AST/SGOT 14 U/L (15-37); Albumin 3.2 g/dL (3.4-5.0); Alkaline Phosphatase 57 U/L (45-117); BUN Blood Urea Nitrogen 6 mg/dL (7-18); Bicarbonate 26 mmol/L (21-32); Bilirubin Total 0.3 mg/dL (0.2-1.0); Glucose Level 80 mg/dL (74-106); Lipase 207 U/L (73-393); Potassium 4.1 mmol/L (3.5-5.1); Sodium Level 137 mmol/L (136-145)
--- NOTE | 2020-10-17 13:02 | ER ---
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 Denies abdominal pain. ca1 Coronavirus screen: Client denies travel out of the [place] in the last 14 days. nausea, vomiting. Ebola Screen: Patient negative for fever greater than or equal to 101.5 degrees Fahrenheit, and additional compatible Ebola Virus Disease symptoms Patient denies exposure to infectious person. Patient denies travel to an Ebola-affected area in the 21 days before illness onset. No symptoms or risks identified at this time. Initial Sepsis Screen: Does the patient meet any 2 criteria? No. Patient's initial sepsis screen is negative. Does the patient have a suspected source of infection? No. Patient's initial sepsis screen is negative. Risk Assessment: Do you want to hurt yourself or someone else? Patient reports no desire to harm self or others. Onset of symptoms was October 17, 2020. 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 - Social history:: Smoking status: Patient denies any tobacco usage or history of. - Family history:: not pertinent. Screenin:49 Abuse screen: Denies threats or abuse. Nutritional screening: No deficits noted. tw2 Tuberculosis screening: No symptoms or risk factors identified. Fall Risk None identified. Assessment: 11:51 General: Appears in no apparent distress. uncomfortable, Behavior is calm, cooperative, tw2 appropriate for age. Pain: Denies pain. Neuro: Level of Consciousness is awake, alert, obeys commands, Oriented to person, place, time, situation. Cardiovascular: Heart tones S1 S2 Capillary refill < 3 seconds. Respiratory: Airway is patent Respiratory effort is even, unlabored, Respiratory pattern is regular, symmetrical, Breath sounds are clear bilaterally. GI: Abdomen is round non-distended, Bowel sounds present X 4 quads. Reports nausea, vomiting. : No signs and/or symptoms were reported regarding the genitourinary system. EENT: No signs and/or symptoms were reported regarding the EENT system. Derm: No signs and/or symptoms reported regarding the dermatologic system. Musculoskeletal: Range of motion: intact in all extremities. 12:26 Reassessment: Patient appears in no apparent distress at this time. Patient and/or tw2 family updated on plan of care and expected duration. Pain level reassessed. Patient is alert, oriented x 3, equal unlabored respirations, skin warm/dry/pink. Patient states feeling better. Patient states symptoms have improved. 13:28 Reassessment: pt c/o nausea, provider notified, pt ambulating to restroom at this time tw2 with urine specimen. 14:01 Reassessment: pt attempted ice chips for PO challenge at this time. tw2 14:10 Reassessment: Patient appears in no apparent distress at this time. Patient and/or tw2 family updated on plan of care and expected duration. Pain level reassessed. Patient is alert, oriented x 3, equal unlabored respirations, skin warm/dry/pink. pt tolerated PO challenge at this time., provider notified and will discharge as spouse is at bedside. Vital Signs: 11:48 BP 136 / 92; Pulse 104; Resp 17 S; Temp 97.4(TE); Pulse Ox 99% on R/A; Weight 81.19 kg ca1 (R); Height 5 ft. 4 in. (162.56 cm) (R); Pain 0/10; 12:27 BP 135 / 74; Pulse 84; Resp 18; Pulse Ox 100% on R/A; tw2 13:44 BP 129 / 68 Supine; Pulse 94; Resp 18; Pulse Ox 99% on R/A; tw2 13:44 BP 141 / 86 Sitting; Pulse 88; tw2 13:44 BP 133 / 95 Standing; Pulse 101; tw2 14:00 BP 126 / 91; Pulse 91; Resp 18; Pulse Ox 100% on R/A; tw2 11:48 Body Mass Index 30.72 (81.19 kg, 162.56 cm) [facility] Vitals: 12:06 Heart Tones: 148. ut ED Course: 11:39 Patient arrived in ED. as 11:42 Bed in low position. Call light in reach. Adult w/ patient. Pulse ox on. NIBP on. tw2 11:47 Lilian Gross RN is Primary Nurse. tw2 11:50 Triage completed. ca1 11:50 Pancho Greene MD is Attending Physician. [facility] 11:50 Arm band placed on right wrist. ca1 12:00 Inserted saline lock: 22 gauge in left antecubital area, using aseptic technique. Blood tw2 collected. 13:01 Michael Carson MD is Referral Physician. [facility] 13:59 Awaiting: PO challenge at this time. tw2 14:18 No provider procedures requiring assistance completed. IV discontinued, intact, tw2 bleeding controlled, No redness/swelling at site. Pressure dressing applied. Administered Medications: 12:00 Drug: NS 0.9% 1000 ml Route: IV; Rate: 1 bolus; Site: left antecubital; tw2 13:29 Follow up: Response: No adverse reaction; IV Status: Completed infusion; IV Intake: tw2 1000ml 12:02 Drug: Phenergan 12.5 mg Route: IVP; Site: left antecubital; tw2 12:27 Follow up: Response: No adverse reaction; Nausea is decreased tw2 13:38 Drug: Phenergan 12.5 mg Route: IVP; Site: left antecubital; tw2 14:10 Follow up: Response: No adverse reaction; Nausea is decreased tw2 Intake: 13:29 IV: 1000ml; Total: 1000ml. tw2 Outcome: 13:02 Discharge ordered by . [facility] 14:18 Discharged to home ambulatory, with significant other. tw2 14:18 Condition: stable 14:18 Discharge instructions given to patient, significant other, Instructed on discharge instructions, follow up and referral plans. medication usage, Demonstrated understanding of instructions, follow-up care, medications, Prescriptions given X 3. 14:18 Patient left the ED. tw2 Signatures: Pancho Greene MD MD cha Martinez, Amelia as Lilian Gross RN RN tw2 Wendie Godoy mt Acerlin, Mora, RN RN ca1
--- NOTE | 2020-10-17 13:02 | EDPHYS ---
Physician Documentation [facility] Name: Suraj Fuentes Age: 29 yrs Sex: Female : 1990 Arrival Date: 10/17/2020 Time: 11:39 Bed 16 Private MD: ZOYA Physician Pancho Greene HPI: 10/17 12:58 This 29 yrs old Female presents to ER via Wheelchair with complaints of jessica Nausea/Vomiting. 12:58 The patient presents to the emergency department with nausea, vomiting, that is jessica continuous. Onset: The symptoms/episode began/occurred 2 day(s) ago. Possible causes: . The symptoms are aggravated by nothing. The symptoms are alleviated by nothing. Associated signs and symptoms: The patient has no apparent associated signs or symptoms. Severity of symptoms: At their worst the symptoms were mild in the emergency department the symptoms are unchanged. The patient has not experienced similar symptoms in the past. 3RD MATE: 11:51 LMP N/A - 15 wks pg tw2 Historical: - Allergies: 11:50 Demerol; ca1 11:50 Ibuprofen; ca1 11:50 ORANGES; ca1 - PMHx: 11:50 GALLSTONES; hyperemesis gravidarum; Pancreatitis; ca1 - PSHx: 11:50 ; Appendectomy; Cholecystectomy; ca1 - Immunization history:: Adult Immunizations up to date, Flu vaccine is not up to date. - Social history:: Smoking status: Patient denies any tobacco usage or history of. - Family history:: not pertinent. ROS: 12:58 Constitutional: Negative for fever, chills, and weight loss, Eyes: Negative for injury, jessica pain, redness, and discharge, ENT: Negative for injury, pain, and discharge, Neck: Negative for injury, pain, and swelling, Cardiovascular: Negative for chest pain, palpitations, and edema, Respiratory: Negative for shortness of breath, cough, wheezing, and pleuritic chest pain, Back: Negative for injury and pain, : Negative for injury, bleeding, discharge, and swelling, MS/Extremity: Negative for injury and deformity, Skin: Negative for injury, rash, and discoloration, Neuro: Negative for headache, weakness, numbness, tingling, and seizure, Psych: Negative for depression, anxiety, suicide ideation, homicidal ideation, and hallucinations, Allergy/Immunology: Negative for hives, rash, and allergies, Endocrine: Negative for neck swelling, polydipsia, polyuria, polyphagia, and marked weight changes. 12:58 Abdomen/GI: Positive for abdominal pain, nausea and vomiting. Exam: 12:58 Constitutional: This is a well developed, well nourished patient who is awake, alert, jessica and in no acute distress. Head/Face: Normocephalic, atraumatic. Eyes: Pupils equal round and reactive to light, extra-ocular motions intact. Lids and lashes normal. Conjunctiva and sclera are non-icteric and not injected. Cornea within normal limits. Periorbital areas with no swelling, redness, or edema. ENT: Nares patent. No nasal discharge, no septal abnormalities noted. Tympanic membranes are normal and external auditory canals are clear. Oropharynx with no redness, swelling, or masses, exudates, or evidence of obstruction, uvula midline. Mucous membranes moist. Neck: Trachea midline, no thyromegaly or masses palpated, and no cervical lymphadenopathy. Supple, full range of motion without nuchal rigidity, or vertebral point tenderness. No Meningismus. Chest/axilla: Normal chest wall appearance and motion. Nontender with no deformity. No lesions are appreciated. Cardiovascular: Regular rate and rhythm with a normal S1 and S2. No gallops, murmurs, or rubs. Normal PMI, no JVD. No pulse deficits. Respiratory: Lungs have equal breath sounds bilaterally, clear to auscultation and percussion. No rales, rhonchi or wheezes noted. No increased work of breathing, no retractions or nasal flaring. Back: No spinal tenderness. No costovertebral tenderness. Full range of motion. Female : Normal external genitalia. Skin: Warm, dry with normal turgor. Normal color with no rashes, no lesions, and no evidence of cellulitis. MS/ Extremity: Pulses equal, no cyanosis. Neurovascular intact. Full, normal range of motion. Neuro: Awake and alert, GCS 15, oriented to person, place, time, and situation. Cranial nerves II-XII grossly intact. Motor strength 5/5 in all extremities. Sensory grossly intact. Cerebellar exam normal. Normal gait. Psych: Awake, alert, with orientation to person, place and time. Behavior, mood, and affect are within normal limits. 12:58 Abdomen/GI: Inspection: gravid appearance, Bowel sounds: normal, Palpation: abdomen is soft and non-tender, Liver: no appreciated palpable abnormalities, Hernia: not appreciated. Vital Signs: 11:48 BP 136 / 92; Pulse 104; Resp 17 S; Temp 97.4(TE); Pulse Ox 99% on R/A; Weight 81.19 kg ca1 (R); Height 5 ft. 4 in. (162.56 cm) (R); Pain 0/10; 12:27 BP 135 / 74; Pulse 84; Resp 18; Pulse Ox 100% on R/A; tw2 13:44 BP 129 / 68 Supine; Pulse 94; Resp 18; Pulse Ox 99% on R/A; tw2 13:44 BP 141 / 86 Sitting; Pulse 88; tw2 13:44 BP 133 / 95 Standing; Pulse 101; tw2 14:00 BP 126 / 91; Pulse 91; Resp 18; Pulse Ox 100% on R/A; tw2 11:48 Body Mass Index 30.72 (81.19 kg, 162.56 cm) ca1 MDM: 11:50 Patient medically screened. jessica 13:00 Differential diagnosis: Nonspecific abd pain, viral gastroenteritis, gastroenteritis. jessica Data reviewed: vital signs, nurses notes, lab test result(s), CBC, electrolytes, hepatic panel. Data interpreted: site monitor: rate is 84 beats/min, rhythm is regular, Pulse oximetry: on room air Interpretation: normal. Test interpretation: by ED physician or midlevel provider:. Counseling: I had a detailed discussion with the patient and/or guardian regarding: the historical points, exam findings, and any diagnostic results supporting the discharge/admit diagnosis, lab results, the need for outpatient follow up, for definitive care, an OB/Gyne specialist. 10/17 11:51 Order name: Comprehensive Metabolic Panel; Complete Time: 12:57 [facility] 10/17 11:51 Order name: CBC with Diff; Complete Time: 12:57 [facility] 10/17 11:51 Order name: Lipase; Complete Time: 12:57 [facility] 10/17 13:44 Order name: Urine Dipstick--Ancillary (enter results) bd 10/17 11:51 Order name: Urine Dipstick-Ancillary (obtain specimen); Complete Time: 13:47 [facility] 10/17 11:51 Order name: FHT's; Complete Time: 12:06 [facility] 10/17 11:53 Order name: IV Start; Complete Time: 12:04 [facility] 10/17 13:30 Order name: PO challenge; Complete Time: 14:10 [facility] 10/17 13:30 Order name: Orthostatics; Complete Time: 13:44 [facility] Administered Medications: 12:00 Drug: NS 0.9% 1000 ml Route: IV; Rate: 1 bolus; Site: left antecubital; tw2 13:29 Follow up: Response: No adverse reaction; IV Status: Completed infusion; IV Intake: tw2 1000ml 12:02 Drug: Phenergan 12.5 mg Route: IVP; Site: left antecubital; tw2 12:27 Follow up: Response: No adverse reaction; Nausea is decreased tw2 13:38 Drug: Phenergan 12.5 mg Route: IVP; Site: left antecubital; tw2 14:10 Follow up: Response: No adverse reaction; Nausea is decreased tw2 Disposition: 10/17/20 13:02 Discharged to Home. Impression: Vomiting, related exhaustion and fatigue, second trimester. - Condition is Stable. - Discharge Instructions: Nausea and Vomiting, Adult, Nausea and Vomiting, Adult, [id number], Second Trimester of , Lcmf-or-[id number]. - Prescriptions for Vitamin 27- 0.8 mg Oral Tablet - take 1 tablet by ORAL route once daily; 30 tablet. Zofran 4 mg Oral Tablet - take 1 tablet by ORAL route every 12 hours As needed; 20 tablet. Phenergan 25 mg Rectal Suppository - insert 1 suppository by RECTAL route every 6 hours As needed; 12 suppository. - Medication Reconciliation Form, Thank You Letter, Antibiotic Education, Prescription Opioid Use form. - Follow up: Private Physician; When: 2 - 3 days; Reason: Recheck today's complaints, Continuance of care, Re-evaluation by your physician. Follow up: Michael Carson MD; When: 2 - 3 days; Reason: Recheck today's complaints, Continuance of care, Re-evaluation by your physician. - Problem is new. - Symptoms have improved. Signatures: Dispatcher [employer] EDPancho Edward MD MD cha Wise, Tara RN RN tw2 Acob, Mora, RN RN ca1 Corrections: (The following items were deleted from the chart) 14:18 13:02 10/17/2020 13:02 Discharged to Home. Impression: Vomiting; related tw2 exhaustion and fatigue, second trimester. Condition is Stable. Forms are Medication Reconciliation Form, Thank You Letter, Antibiotic Education, Prescription Opioid Use. Follow up: Private Physician; When: 2 - 3 days; Reason: Recheck today's complaints, Continuance of care, Re-evaluation by your physician. Follow up: Michael Carson; When: 2 - 3 days; Reason: Recheck today's complaints, Continuance of care, Re-evaluation by your physician. Problem is new. Symptoms have improved. jessica
[2020-10-17 14:00] LABS: Urine Blood NEGATIVE (NEG); Urine Glucose TRACE (NEG); Urine Protein NEGATIVE (NEG); Urine pH 8.5 (5.0-7.0)
[2020-10-17 17:02] VITALS: TEMP 97.4
[2020-10-17 17:07] VITALS: BP 126/91; O2SAT 100
== END 2020-10-17 14:18 | disposition home or self-care (01) ==
LOC: ER 11:38
DX: O26.812 Pregnancy related exhaustion and fatigue, second trimester (principal); Z3A.15 15 weeks gestation of pregnancy; Z88.5 Allergy status to narcotic agent; Z88.6 Allergy status to analgesic agent; Z91.018 Allergy to other foods
CPT/HCPCS: 96361; 85025; 36415; 81003; 83690; 80053; 96374; 99284; J2550 ×2; J7030

== ENCOUNTER 2020-10-18 07:52 | Emergency (ER) | payer MEDICAID ==
--- NOTE | 2020-10-18 08:35 | ER ---
Nurse's Notes [facility] Name: Suraj Fuentes Age: 29 yrs Sex: Female : 1990 Arrival Date: 10/18/2020 Time: 07:55 Bed 6 Private MD: Diagnosis: Nausea and vomiting Presentation: 10/18 08:01 Chief complaint: Patient states: epigastric pain, N/V after being discharged from hospital yesterday. Pt reports she is 15 weeks . Has not taken any of her home medications today. Coronavirus screen: Client denies travel out of the [place] in the last 14 days. Ebola Screen: Patient denies exposure to infectious person. Patient denies travel to an Ebola-affected area in the 21 days before illness onset. Initial Sepsis Screen: Does the patient meet any 2 criteria? No. Patient's initial sepsis screen is negative. Does the patient have a suspected source of infection? No. Patient's initial sepsis screen is negative. Risk Assessment: Do you want to hurt yourself or someone else? Patient reports no desire to harm self or others. Onset of symptoms was October 17, 2020. 08:01 Method Of Arrival: Ambulatory 08:01 Acuity: SHAW 3 ss Historical: - Allergies: 08:03 Demerol; ss 08:03 Ibuprofen; ss 08:03 ORANGES; ss - PMHx: 08:03 hyperemesis gravidarum; Pancreatitis; ss - PSHx: 08:03 ; Appendectomy; Cholecystectomy; ss - Immunization history:: Adult Immunizations up to date. - Social history:: Smoking status: Patient denies any tobacco usage or history of. Screenin:03 Abuse screen: Denies threats or abuse. Denies injuries from another. Nutritional ss screening: No deficits noted. Tuberculosis screening: Never had TB. Fall Risk None identified. Assessment: 08:03 Reassessment: Pt states, "when you get it under control, can I have a GI cocktail?". ss General: Appears uncomfortable, Behavior is calm, cooperative. Pain: Complains of pain in epigastric area Pain currently is 3 out of 10 on a pain scale. Quality of pain is described as aching. Neuro: Level of Consciousness is awake, alert, obeys commands, Oriented to person, place, time, situation. Cardiovascular: Capillary refill < 3 seconds is brisk in bilateral fingers. Respiratory: Airway is patent Respiratory effort is even, unlabored, Respiratory pattern is regular, symmetrical. GI: Abdomen is non-distended, Reports nausea, vomiting, since being discharged from ER yesterday. : Denies burning with urination, urinary frequency. EENT: Oral mucosa is moist. Derm: Skin is intact, is healthy with good turgor, Skin is pink, warm \\T\\ dry. normal. Musculoskeletal: Range of motion: intact in all extremities. 08:27 Reassessment: Upon entering patient's room to obtain lab specimen. Pt states, "He isn't ss going to do an IV, so i'll just go home and take my medications I have at home. Dr. Humphrey notified. Educated patient on need for following up with PCP/ THERAPIST PHYSICAL and returning to ED for worsening of symptoms. Pt stated, "thank you." and verbalized understanding of instructions. Vital Signs: 08:01 Weight 81.19 kg; Height 5 ft. 4 in. (162.56 cm); Pain 3/10; ss 08:04 BP 128 / 81; Pulse 99; Resp 16; Temp 97.7; Pulse Ox 98% on R/A; mt 08:05 Weight 81.19 kg (R); Height 5 ft. 4 in. (162.56 cm); mt 08:05 Body Mass Index 30.72 (81.19 kg, 162.56 cm) tn ED Course: 07:55 Patient arrived in ED. ag5 08:03 Triage completed. ss 08:03 Arm band placed on right wrist. ss 08:03 Patient has correct armband on for positive identification. Bed in low position. Call ss light in reach. 08:06 Warren Humphrey MD is Attending Physician. ps1 08:27 No provider procedures requiring assistance completed. Patient did not have IV access ss during this emergency room visit. Administered Medications: 08:27 Not Given (Patient Refused): Phenergan Suppository 25 mg [place] once aa5 Outcome: 08:27 AMA AMA form signed ss 08:27 Condition: stable 08:27 Instructed on discharge instructions, follow up and referral plans. medication usage, Demonstrated understanding of instructions, follow-up care, medications. 08:35 Patient left the ED. ss Signatures: CumminsHeather guzman RN RN aa5 Rita Meza RN RN dimitry Godoy, Warren Harley mt, MD MD ps1 Gaskin, Ajare ag5 Corrections: (The following items were deleted from the chart) 08:27 08:21 Heather Cummins RN is Primary Nurse. jeremy aa5
--- NOTE | 2020-10-18 08:35 | EDPHYS ---
Physician Documentation [facility] Name: Suraj Fuentes Age: 29 yrs Sex: Female : 1990 Arrival Date: 10/18/2020 Time: 07:55 Bed 6 Private MD: ED Physician Warren Humphrey HPI: 10/18 08:20 This 29 yrs old Female presents to ER via Ambulatory with complaints of ps1 Nausea/Vomiting. 08:20 \R\ 15 wks EGA. patient has been seen multiple times for the same. Has [place] and PO ps1 Phenergan and Zofran. Not taking the medication as she states when she places medication in rectum it just comes out. Does not have associated diarrhea. States that she has cramping associated with her vomiting. No fever. . Historical: - Allergies: 08:03 Demerol; ss 08:03 Ibuprofen; ss 08:03 ORANGES; ss - PMHx: 08:03 hyperemesis gravidarum; Pancreatitis; ss - PSHx: 08:03 ; Appendectomy; Cholecystectomy; ss - Immunization history:: Adult Immunizations up to date. - Social history:: Smoking status: Patient denies any tobacco usage or history of. ROS: 08:20 Constitutional: Negative for fever, chills, and weight loss, Eyes: Negative for injury, ps1 pain, redness, and discharge, Cardiovascular: Negative for chest pain, palpitations, and edema, Respiratory: Negative for shortness of breath, cough, wheezing, and pleuritic chest pain, Skin: Negative for injury, rash, and discoloration, Neuro: Negative for headache, weakness, numbness, tingling, and seizure. 08:20 Abdomen/GI: Positive for nausea and vomiting, cramping. Exam: 08:20 Constitutional: This is a well developed, well nourished patient who is awake, alert, ps1 and in no acute distress. Head/Face: Normocephalic, atraumatic. Eyes: Pupils equal round and reactive to light, extra-ocular motions intact. Lids and lashes normal. Conjunctiva and sclera are non-icteric and not injected. Cardiovascular: Regular rate and rhythm. No gallops, murmurs, or rubs. Normal PMI, no JVD. No pulse deficits. Respiratory: Lungs have equal breath sounds bilaterally, clear to auscultation and percussion. No rales, rhonchi or wheezes noted. No increased work of breathing, no retractions or nasal flaring. Skin: Warm, dry with normal turgor. Normal color with no rashes, no lesions, and no evidence of cellulitis. MS/ Extremity: Pulses equal, no cyanosis. Neurovascular intact. Full, normal range of motion. 08:20 Abdomen/GI: Inspection: scar(s), are noted in the abdomen, Bowel sounds: normal, Palpation: abdomen is soft and non-tender. Vital Signs: 08:01 Weight 81.19 kg; Height 5 ft. 4 in. (162.56 cm); Pain 3/10; ss 08:04 BP 128 / 81; Pulse 99; Resp 16; Temp 97.7; Pulse Ox 98% on R/A; mt 08:05 Weight 81.19 kg (R); Height 5 ft. 4 in. (162.56 cm); wa 08:05 Body Mass Index 30.72 (81.19 kg, 162.56 cm) wa MDM: 08:24 Patient medically screened. ps1 08:24 Data reviewed: vital signs, nurses notes. ED course: patient states that she wants to ps1 leave and try her medications at home. Labs pending. Signed AMA form. . Administered Medications: 08:27 Not Given (Patient Refused): Phenergan Suppository 25 mg [place] once aa5 Disposition: 10/18/20 08:34 Patient has left against medical advice. Impression: Nausea and vomiting. - Patients states they are going to Home. - Condition is Stable. - Problem is an ongoing problem. - Symptoms are unchanged. Signatures: Dispatcher [employer] EDAK Rita Meza RN RN ss Warren Humphrey MD MD ps1 Heather Cummins RN aa5 Corrections: (The following items were deleted from the chart) 08:35 08:34 10/18/2020 08:34 Patients has left against medical advice. Impression: Nausea and ss vomiting. Patient states they are going to Home. Condition is Stable. Problem is an ongoing problem. Symptoms are unchanged. ps1
[2020-10-18] MEDS ORDERED: PROMETHAZINE 25 MG/SUPP PR ONE (08:36)
--- OUTSIDE RECORDS SUMMARY | 2020-10-18 09:37 | XMS REPORT | Continuity of Care Document ---
:1990 Author Organization [facility] t Address [address] [place] [address] Care Team Providers Name Role Phone Jim Lauren WELLINGTON Attending Clinician Tyler Galvan MD Attending Clinician Cole FRANKLIN M Admitting Clinician Problems This patient has no known problems. Allergies, Adverse Reactions, Alerts This patient has no known allergies or adverse reactions. Medications This patient has no known medications. Procedures This patient has no known procedures. Encounters Start End Encounter Admission Attending Care Care Encounter Source Date/Time Date/Time Type Type Clinicians Facility Department ID 2020-10-18 2020-10-18 Telephone AMBAR Fernandez [id number] 00:00:00 00:00:00 Cornelius Aguilar FIBER DESIGNER [id number] [facility] [id number] MATERNAL [id number] & CHILD [address] [place] [address] 2020-10-11 2020-10-14 [facility] JAYCE Galvan [id number] 15:48:00 12:27:00 Encounter Marisel HINSON [id number] [facility] [id number] 2020-10-10 2020-10-10 [facility] [id number] 00:00:00 00:00:00 Cornelius Aguilar FIBER DESIGNER [id number] [facility] [id number] MATERNAL [id number] & CHILD [address] [place] [address] - [place] Results This patient has no known results.
[2020-10-18 10:32] VITALS: BP 128/81; TEMP 97.7; O2SAT 98
== END 2020-10-18 08:35 | disposition left against medical advice (07) ==
LOC: ER 07:52
DX: O21.9 Vomiting of pregnancy, unspecified (principal); Z3A.15 15 weeks gestation of pregnancy; Z88.5 Allergy status to narcotic agent; Z88.6 Allergy status to analgesic agent; Z91.018 Allergy to other foods
CPT/HCPCS: 99281

== ENCOUNTER 2020-10-23 14:45 | Emergency (ER) | payer MEDICAID ==
--- OUTSIDE RECORDS SUMMARY | 2020-10-23 14:49 | XMS REPORT | Continuity of Care Document ---
:1990 Author Organization [facility] t Address [address] [place] [address] Care Team Providers Name Role Phone Lauren Thomas Attending Clinician Problems This patient has no known problems. Allergies, Adverse Reactions, Alerts This patient has no known allergies or adverse reactions. Medications This patient has no known medications. Procedures This patient has no known procedures. Encounters Start End Encounter Admission Attending Care Care Encounter Source Date/Time Date/Time Type Type Clinicians Facility Department ID 2020-10-18 2020-10-18 Telephone FernandezAMBAR [id number] 00:00:00 00:00:00 Cornelius Aguilar BOX BLANK MACHINE FEEDER [id number] [facility] [id number] MATERNAL [id number] & CHILD [address] [place] [address] Results This patient has no known results.
--- OUTSIDE RECORDS SUMMARY | 2020-10-23 14:59 | XMS REPORT | Summary of Care ---
:1990 Author Organization [facility] Address [address] [place] [address] Care Team Providers Name Role Phone Gamal Saravia Insurance [employer] Lauren Fernandez Primary Care Provider Reason for Visit Reason Comments Orders Brodie Encounter Details Date Type Department Care Team Description 10/18/2020 Telephone [facility]- Karon Fernandez FNP Orders (Brodie) [place] [address] [facility] [place] [address] [place] [address] [phone] Allergies Active Allergy Reactions Severity Noted Date Comments Ibuprofen Hives 04/15/2014 [place] Hives 04/15/2014 Sodium Citrate (Bulk) Nausea and/or Vomiting 9 documented as of this encounter (statuses as of 10/18/2020) Medications Medication Sig Dispensed Refills Start Date End Date Status vit Take 1 Packet by 30 Each 6 08/03/2020 Active 77-ulrf-bmwxa-dha mouth daily. (SELECT-OB + DHA) 29 mg iron-1 mg -250 mg combo packIndications: Supervision of high risk in first trimester proCHLORperazine 10 mg Take 1 tablet by 20 tablet 0 09/01/2020 Active tabletIndications: mouth every 6 Hyperemesis gravidarum (six) hours as needed (for nausea and vomiting unresponsive to doxylamine/pyridox ine). doxylamine-pyridoxine, Take 2 tablets by 90 tablet 3 0 Active vit B6, (DICLEGIS) mouth at bedtime. 10-10 mg per tabletIndications: Nausea and vomiting during docusate 100 mg Take 1 capsule by 30 capsule 0 10/14/2020 Active capsuleIndications: mouth daily. May Gallstones substitute for what is in stock and covered by patient plan acetaminophen 325 mg Take 2 tablets by 60 capsule 0 10/14/2020 Active CapIndications: S/P mouth every 6 cholecystectomy (six) hours. HYDROXYprogest,PF,,pre 1 mL by 1 mL 24 10/18/2020 Active g presv, 250 mg/mL (1 Intramuscular mL) route weekly. injectionIndications: labor in second trimester without delivery documented as of this encounter (statuses as of 10/18/2020) Active Problems Problem Noted Date Cholelithiasis affecting in second trimester , antepartum 10/12/2020 Gallstones 10/11/2020 Overview: Added automatically from request for brea weiss [id number] Nausea & vomiting 09/10/2020 9 weeks gestation [...] Obesity in 01/25/2015 Overview: ICD10 Diagnosis Term Tool Room Lathe Operator Utility Encounter for IUD removal and reinsertion 01/18/2015 ASCUS on Pap smear 04/15/2014 Estimated Date of Delivery Comments Yes 04/11/2021 Based on Ultrasound, FHT: 127, Transverse Presentation, Placen ta Too early to evaulate documented as of this encounter (statuses as of 10/18/2020) Resolved Problems Problem Noted Date Resolved Date 37 weeks gestation of 12/18/2018 01/08/20 19 [place] contraction 12/12/2018 01/08/2019 Abnormal maternal glucose [...] management 01/25/2015 05/20/2018 Overview: ICD10 Diagnosis Term Tool Room Lathe Operator Utility Breast tenderness in female 01/25/2015 05/20/2018 Not immune to rubella 04/16/2014 06/04/2016 Overview: ICD10 Diagnosis Term Tool Room Lathe Operator Utility documented as of this encounter (statuses as of 10/18/2020) Immunizations Name Administration Dates Next Due HPV9 [...] with No / Unsure 10/14/2020 11:02 AM CHECK WEIGHER someone who was confirmed or suspected to have Coronavirus / COVID-19? documented as of this encounter Last Filed Vital Signs Not on filedocumented in this encounter Miscellaneous Notes Telephone Encounter - Cornelius Fernandez FNP - 10/18/2020 8:56 AM CSTMekena injection ordered. elephone Encounter - Cornelius Fernandez FNP - 10/18/2020 8:46 AM CHECK WEIGHER----- Message from Roselyn Moore RN sent at 10/18/2020 8:29 AM CHECK WEIGHER ----- Regarding: FW: brodie Please order [place] (17P). Once ordered I will send prescription and forms for approval. Thank you ----- Message ----- From: Brina Hunt RN Sent: 10/17/2020 10:44 AM CHECK WEIGHER To: Roselyn Moore RN Subject: brodie Dempsey, This is an [place] patient who meets criteria for 17P. Please get approval for 17P, per the Resident, Dr. Song's note. Thank you, Max ----- Message ----- [facility]: [facility] Sent: 10/16/2020 8:26 AM CHECK WEIGHER To: Brina Hunt, RN Can you please work with the nursing team for this approval for Brodie? ----- Message ----- From: Laura Agosto MD Sent: 10/14/2020 12:31 PM CHECK WEIGHER To: Alesha Arriola [facility] L[facility]pez Alesha, I was wondering if you would be able to give me some direction with this patient. She is a candidatefor Brodie injections and Dr. Galvan would like her to start at 16 weeks. I tried to order it in [facility] it only orders it as a medication the patient would moss picker. Are you able to please see how we can get this rolling for her? Thank you for your help! Laura Song PGY-3 K WEIGHER documented in this encounter Plan of Treatment Date Type Specialty Care Team Description 10/24/2020 Routine Visit [facility] Flora Burks, [facility] [address] [place], [place] [address] [phone] 10/25/2020 Rubber Worker Visit Maternal Medicine 10/31/2020 Rubber Worker Visit Maternal Medicine 11/01/2020 Office Visit Trauma Surgery Service/[place], Surgery C 11/08/2020 Rubber Worker Visit Maternal Medicine 11/15/2020 Rubber Worker Visit Maternal Medicine 11/22/2020 Rubber Worker Visit Maternal Medicine 11/29/2020 Rubber Worker Visit Maternal Medicine 12/13/2020 Rubber Worker Visit Maternal Medicine Health Maintenance Due Date Last Done Comments [...] Td) 11/25/2004 documented as of this encounter Results Not on filedocumented in this encounter Visit Diagnoses Diagnosis labor in second trimester withou t delivery - Primary documented in this encounter Insurance Payer Benefit Plan / Subscriber ID Effective Phone Address T e Group Dates ASIA BETANCOURT [id number] 2018-[address] [place] [id number] MANAGED MEDICAID [place], [place] documented as of this encounter Advance Directives Type Date Recorded Patient Corporate Legal Manager Explanati on Advance Directives and Living Will Power of Candy Maker Name Relationship Healthcare Agent Relationship Co mmunication Floyd Brown Father Health Care Agent Preet Coffey Other Health Care Agent [place] Fuentes Spouse [facility] Health Care Agent (Mobile)
--- OUTSIDE RECORDS SUMMARY | 2020-10-23 14:59 | XMS REPORT | Summary of Care ---
:1990 Author Organization [facility] Address [address] [place] [address] Care Team Providers Name Role Phone Manjit E Insurance [employer] Lauren Fernandez Primary Care Provider Reason for Visit Reason Comments Vomiting Auth/Cert Status Reason Specialty Diagnoses / Referred By Referred To Procedures Contact Contact Emergency Medicine [facility] Em ergency Dept [address] [place] [address] Fax: Encounter Details Date Type Department Care Team Description 10/18/2020 Emergency ADC-Emergency Jeniffer Ontiveros MD Hyperemesis gravidarum (Primary Dx); Department [address] [facility] Dehydration [address] [facility] [address] [place] [address] [place] [address] [phone] Allergies Active Allergy Reactions Severity Noted Date Comments Ibuprofen Hives 04/15/2014 Clio Hives 04/15/2014 Sodium Citrate (Bulk) Nausea and/or Vomiting 9 documented as of this encounter (statuses as of 10/18/2020) Medications Medication Sig Dispensed Refills Start Date End Date Status vit Take 1 Packet by 30 Each 6 08/03/2020 Active 72-[id number]-[id number]-dha mouth daily. (SELECT-OB + DHA) 29 mg [...] Added automatically from request for brea weiss [id number] Nausea & vomiting 09/10/2020 9 weeks gestation [...] Obesity in 01/25/2015 Overview: ICD10 Diagnosis Term Typewriter Operator Automatic Utility Encounter for IUD removal and reinsertion [...] management 01/25/2015 05/20/2018 Overview: ICD10 Diagnosis Term Typewriter Operator Automatic Utility Breast tenderness in female 01/25/2015 05/20/2018 Not immune to rubella 04/16/2014 06/04/2016 Overview: ICD10 Diagnosis Term Typewriter Operator Automatic Utility documented as of this encounter (statuses [...] been in contact with No / Unsure 10/18/2020 9:57 AM SUPERINTENDENT CONTAINER TERMINAL someone who was confirmed or suspected to have Coronavirus / COVID-19? documented as of this encounter Last Filed Vital Signs Vital Sign Reading Time Taken Comments Blood Pressure 132/83 10/18/2020 2:00 PM SUPERINTENDENT CONTAINER [employer] Pulse 97 10/18/2020 2:00 PM SUPERINTENDENT CONTAINER [employer]MIN[employer] Temperature 36.8 C (98.2 F) 10/18/2020 9:59 AM SUPERINTENDENT CONTAINER [employer]MINAL Respiratory Rate 18 10/18/2020 2:00 PM SUPERINTENDENT CONTAINER [employer]MINAL Oxygen Saturation 100% 10/18/2020 2:00 PM SUPERINTENDENT CONTAINER [employer]MINAL Inhaled Oxygen Concentration - - Weight 81.2 kg (179 lb) 10/18/2020 9:59 AM SUPERINTENDENT CONTAINER TERMINAL Height - - Body Mass Index 30.73 10/11/2020 4:22 PM SUPERINTENDENT CONTAINER [employer]MIN[employer] documented in this encounter Discharge Instructions InstructionsNeJeniffer persaud MD - 10/18/2020 RETURN FOR ANY QUESTIONS OR CONCERNS Today you were seen by Jeniffer Ontiveros Jr., MD You were seen today for Chief Complaint Patient presents with Vomiting Your ER diagnosis was ICD-10-CM ICD-9-CM 1. Hyperemesis gravidarum O21.0 643.00 2. Dehydration E86.0 276.51 NO LIFE-THREATENING FINDINGS ON TODAY'S EXAM. YOUR PRESCRIPTIONS : Check out [email or web address] for medication discounts Medication List ASK your doctor about these medications acetaminophen 325 mg Cap Commonly known as: TYLENOL Take 2 tablets by mouth every 6 (six) hours. docusate 100 mg capsule Commonly known as: COLACE Take 1 capsule by mouth daily. May substitute for what is in stock and covered by patient plan doxylamine-pyridoxine (vit B6) 10-10 mg per tablet Commonly known as: Diclegis Take 2 tablets by mouth at bedtime. HYDROXYprogest(PF)(preg presv) 250 mg/mL (1 mL) injection Commonly known as: NEHAL 1 mL by Intramuscular route weekly. proCHLORperazine 10 mg tablet Commonly known as: COMPAZINE Take 1 tablet by mouth every 6 (six) hours as needed (for nausea and vomiting unresponsive to doxylamine/pyridoxine). Select-OB + DHA 29 mg iron-1 mg -250 mg combo pack Generic drug: vit 78-ruql-[id number]-dha Take 1 Packet by mouth daily. ER precautions and follow up : 1. Return to ER if your symptoms should worsen or fail to improve within 72 hours. 2. The care provided in the emergency room was for acute problems only. 3. You should follow up with your primary care provider within 72 hours. 4. Fill and take all your medications as prescribed. 5. Make sure you are staying adequately hydrated. Busque attencion immediatamente si usted tiene los sitomas sigue, vuelve peor o si hay sitomas nuevas o para cualquiera preoccupacion incluyendo dolor del pecho, falta aire, se siente debile, mas fievre, mas dolor, nausea, vomitando, sangrando que no es normal, confusion, baja or pierdas conciencia. MAY FOLLOW-UP WITH A PROVIDER OF YOUR CHOICE, SUCH : 1. A PHYSICIAN OF YOUR CHOICE 2. [facility], . LOCATIONS IN [facility] 3. [facility], [address] [place] [address]; [phone] OR, IF YOU WISH TO FOLLOW-UP WITHIN THE [facility], MAY TRY THESE OPTIONS (CLINIC APPOINTMENTS AVAILABLE ON [id number] BASIS): 1. SCHEDULE AN APPOINTMENT ONLINE AT [facility] 2. OR CALL THE [facility]ESS CENTER AT OR 3. OR CALL YOUR [facility] PHYSICIAN'S OFFICE DIRECTLY IF YOU ARE ALREADY AN ESTABLISHED [facility] PATIENT. [facility] RETURN TO WORK / SCHOOL EXCUSE Suraj Fuentes WAS SEEN IN THE ER AND DISCHARGED 10/18/2020 TODAY, 1:51 PM & May return to Work / School / Incarceration on X with activity as tolerated indicated below. ___The following limitations apply until pt is seen by Physician and cleared to return to normal activity. _X_ Off for two days and return to activity as tolerated at work or school ___ No Sports ___ No work ___ Do not return until fever free for 24 hours. ___ No school JENIFFER ONTIVEROS Jr., MD [facility] EMERGENCY DEPRTMENT [address] [place] [address] [place] [address] ### The patient may have been given Narcotic pain medications during their stay in the ED that may show up on a Drug Screen. The hospital discharge paper work will identify these medications. AttachmentsThe following attachments cannot be sent through Care Everywhere. Dehydration (Adult) (Luxembourger)Hyperemesis Gravidarum (Luxembourger)documented in this encounter ED Notes Lara Schreiber RN - 10/18/2020 9:57 AM CSTPatient reports to the ER for c/o nausea and vomiting since last night. Patient reports that she is a pproximately 15 weeks . Reports that she had her gallbladder removed one week ago at [facility] Jeniffer Harry MD - 10/18/2020 9:50 AM CST EMERGENCY DEPARTMENT ENCOUNTER [facility] Patient Name: Suraj Fuentes Date of : 1990 29 year old Exam Room:TX2/TX2 Primary Care Physician: Cornelius Fernandez Pre- Hospital Patient Escorted by: Self [9] Mode of Arrival: Personal means [1] EMS Treatment Prior to ED Arrival: Chief Complaint Chief Complaint Patient presents with Vomiting HPI The patient is a 29-year-old was at 15 weeks gestation confirmed by ultrasound who presents for nausea and vomiting. She states she takes Phenergan and Zofran for vomiting however this has not resultedsymptoms. She denies fever. Denies any abdominal pain or vaginal bleeding. The patient presents for evaluation. History provided by: Patient Vomiting Severity: Moderate Duration: 1 day Timing: Constant Number of daily episodes: Multiple Quality: Stomach contents Progression: Unchanged Chronicity: New Relieved by: Nothing Worsened by: Nothing Ineffective treatments: Antiemetics Associated symptoms: no abdominal pain, no chills, no cough, no fever and no headaches Risk factors: Past Medical History / Immunizations Past Medical History: Diagnosis Date Abnormal maternal glucose tolerance, antepartum 12/11/2018 Resolved per pt report Anxiety Resolved per pt report Anxiety and depression resolved Cholelithiasis affecting in second trimester, antepartum 10/12/2020 Mental disorder Ovarian cyst recently found out of dx. Tetanus received in last 5 years: Yes Childhood immunizations: Up-to-date Past Surgical History Past Surgical History: Procedure Laterality Date APPENDECTOMY 11/14/2017 Dr. Lomax SECTION N/A 12/18/2018 Surgeon: Manny Gray; Location: Labor and Delivery - [place] LAPAROSCOPIC CHOLECYSTECTOMY N/A 10/13/2020 Surgeon: Jamie Holden MD; Location: [facility] OR [facility] Allergies Allergies Allergen Reactions Ibuprofen Hives Clio Hives Sodium Citrate (Bulk) Nausea and/or Vomiting Social History Tobacco Use Never smoked or used smokeless tobacco. Alcohol Use Yes; 0.0 standard drinks of alcohol per week; 0 Standard drinks or equivalent. Comments: socially Drug Use No. Sexual Activity Sexually active; Partners: Male. Comments: last sexual intercourse 10/2018 Review of Systems Review of Systems Constitutional: Negative. Negative for chills, fatigue, fever and unexpected weight change. HENT: Negative. Eyes: Negative. Negative for discharge and itching. Respiratory: Negative. Negative for cough, chest tightness, shortness of breath and wheezing. Cardiovascular: Negative. Negative for chest pain and palpitations. Gastrointestinal: Positive for nausea and vomiting. Negative for abdominal distention and abdominal pain. Genitourinary: Negative. Negative for dysuria, urgency, frequency and flank pain. Musculoskeletal: Negative. Skin: Negative. Negative for color change, pallor and wound. Neurological: Negative. Negative for dizziness, syncope, light-headedness and headaches. Psychiatric/Behavioral: Negative. Negative for agitation and behavioral problems. All other systems reviewed and are negative. Endocrine: Endocrine negative Physical Exam BP 126/68 | Pulse 92 | Temp 36.8 C (98.2 F) (Oral) | Resp 19 | Wt 81.2 kg (179 lb) | LMP 06/08/2020 (Approximate) | SpO2 100% | BMI 30.73 kg/m Physical Exam Vitals signs reviewed. Constitutional: Appearance: She is well-developed. HENT: Head: Normocephalic and atraumatic. Nose: Nose normal. Eyes: Conjunctiva/sclera: Conjunctivae normal. Neck: Musculoskeletal: Normal range of motion and neck supple. Trachea: No tracheal deviation. Cardiovascular: Rate and Rhythm: Normal rate and regular rhythm. Heart sounds: Normal heart sounds. No murmur. No friction rub. Pulmonary: Effort: Pulmonary effort is normal. No respiratory distress. Breath sounds: Normal breath sounds. No stridor. No wheezing or rales. Abdominal: General: Bowel sounds are normal. There is no distension. Palpations: Abdomen is soft. Tenderness: There is no abdominal tenderness. There is no guarding or rebound. Comments: Gravid uterus Musculoskeletal: Normal range of motion. Skin: General: Skin is warm and dry. Neurological: Mental Status: She is alert and oriented to person, place, and time. Cranial Nerves: No cranial nerve deficit. Sensory: No sensory deficit. Psychiatric: Behavior: Behavior normal. Thought Content: Thought content normal. Judgment: Judgment normal. Labs Recent Results (from the past 24 hour(s)) CBC with Differential Collection Time: 10/18/20 10:23 AM Result Value Ref Range WBC 9.10 4.30 - 11.10 10*3/L RBC 4.75 3.93 - 5.25 10*6/L HGB 14.6 11.6 - 15.0 g/dL HCT 40.7 35.7 - 45.2 % MCV 85.7 80.6 - 95.5 fL MCH 30.7 25.9 - 32.8 pg MCHC 35.9 (H) 31.6 - 35.1 g/dL RDW-SD 38.6 (L) 39.0 - 49.9 fL RDW-CV 12.4 12.0 - 15.5 % PLT 195 166 - 358 10*3/L MPV 9.9 9.5 - 12.9 fL NRBC/100 WBC 0.0 0.0 - 10.0 /100 WBCs NRBC x10^3 <0.01 10*3/L GRAN MAT (NEUT) % 79.7 % IMM GRAN % 0.30 % LYMPH % 15.1 % MONO % 4.3 % EOS % 0.4 % BASO % 0.2 % GRAN MAT x10^3(ANC) 7.25 (H) 1.88 - 7.09 10*3/uL IMM GRAN x10^3 0.03 0.00 - 0.06 10*3/uL LYMPH x10^3 1.37 1.32 - 3.29 10*3/uL MONO x10^3 0.39 0.33 - 0.92 10*3/uL EOS x10^3 0.04 0.03 - 0.39 10*3/uL BASO x10^3 <0.03 0.01 - 0.07 10*3/uL Basic Metabolic Panel (NA, K, CL, CO2, GLUCOSE, BUN, CREATININE, CA) Collection Time: 10/18/20 10:23 AM Result Value Ref Range NA 133 (L) 135 - 145 mmol/L K 4.1 3.5 - 5.0 mmol/L CL 101 98 - 108 mmol/L CO2 TOTAL 21 (L) 23 - 31 mmol/L AGAP 11 2 - 16 BUN 6 (L) 7 - 23 mg/dL GLUCOSE 98 70 - 110 mg/dL CREATININE 0.41 (L) 0.50 - 1.04 mg/dL CALCIUM 9.8 8.6 - 10.6 mg/dL eGFR Calculation (Non-) 183.4 mL/min/1.73m2 eGFR Calculation () 222.3 mL/min/1.73m2 Hepatic Function Panel (ALB, T.PRO, BILI T, BU/BC, ALT, AST, ALK PHOS) Collection Time: 10/18/20 10:23 AM Result Value Ref Range TOTAL BILI 0.8 0.1 - 1.1 mg/dL BILI UNCON 0.6 0.1 - 1.1 mg/dL BILI CONJ 0.0 0.0 - 0.3 mg/dL T PROTEIN 7.4 6.3 - 8.2 g/dL ALBUMIN 4.2 3.5 - 5.0 g/dL ALK PHOS 63 34 - 122 U/L ALTv 25 5 - 35 U/L AST(SGOT) 20 13 - 40 U/L Lipase Serum Collection Time: 10/18/20 10:23 AM Result Value Ref Range LIPASE 46 0 - 220 U/L Prothrombin Time (PT) / INR Collection Time: 10/18/20 10:23 AM Result Value Ref Range PROTIME PATIENT 12.5 12.0 - 14.7 Seconds INR 1.0 aPTT Collection Time: 10/18/20 10:23 AM Result Value Ref Range APTT Patient 27 23 - 38 Seconds MAGNESIUM Collection Time: 10/18/20 10:23 AM Result Value Ref Range MAGNESIUM 1.8 1.7 - 2.4 mg/dL Urinalysis Collection Time: 10/18/20 12:52 PM Result Value Ref Range APPEARANCE Hazy (A) Clear COLOR Trudi (A) Yellow PH 5.0 4.8 - 8.0 SP GRAVITY 1.031 (H) 1.003 - 1.030 GLU U QUAL 50 mg/dL (A) Normal BLOOD Negative Negative KETONES 80 mg/dL (A) Negative PROTEIN 30 mg/dL (A) Negative UROBILIN Normal Normal BILIRUBIN Negative Negative NITRITE Negative Negative LEUK HO Negative Negative RBC/HPF 1 0 - 3 HPF WBC/HPF 4 0 - 5 HPF BACTERIA Negative Negative MUCOUS Moderate (A) Negative LPF SQ EPITH 6 HPF YEAST BUD 1 <=1 HPF ADC / LCC - DRUG SCREEN TRIAGE Collection Time: 10/18/20 12:52 PM Result Value Ref Range BENZO U Negative Negative CARYN U Negative Negative AMPHET Negative Negative THC Negative Negative METHADONE Negative Negative Meth U Negative Negative OPIATES Negative Negative Cocaine Metabolite Negative Negative PROPOXY Negative Negative Tric U Negative Negative PCP Negative Negative OXYCOD Negative Negative Imaging No results found for this visit on 10/18/20. Orders and Treatments Orders Placed This Encounter Procedures Urinalysis CBC with Differential Basic Metabolic Panel (NA, K, CL, CO2, GLUCOSE, BUN, CREATININE, CA) Hepatic Function Panel (ALB, T.PRO, BILI T, BU/BC, ALT, AST, ALK PHOS) Lipase Serum Prothrombin Time (PT) / INR aPTT ADC / [facility] - DRUG SCREEN TRIAGE MAGNESIUM Orders Placed This Encounter Medications NaCl 0.9% (NS) bolus infusion 1,000 mL metoclopramide HCl (REGLAN) injection 10 mg proMETHazine (PHENERGAN) 12.5 mg in NaCl 0.9% (NS) 50 mL piggyback Procedures See ED Procedure Note Notes & MDM Patient was evaluated for an emergency medical condition related to Vomiting and . Differential diagnoses considered by presenting complaints but not limited to: Hyperemesis Gravidarum UTI Dehydration Assessment: The patient was given IV fluid and Reglan. However, she continued to vomit. She was given IV Phenergan which is on the symptoms. We gave her a by mouth trial and she passed. The patient states she feels comfortable going home. heart tones are reassuring. The patient be discharged to follow-up. She is to return if any questions or concerns. History, physical exam findings, results of visit, differential diagnosis, medication regimens and plan of future care have been considered. Additional MDM may be found in the ED course. Differential diagnosis considered and final disposition made based on information gathered during evaluation and may not be completely ruled out or specifically listed. Vital signs were rechecked before final disposition. Diagnosis ICD-10-CM ICD-9-CM 1. Hyperemesis gravidarum O21.0 643.00 2. Dehydration E86.0 276.51 Disposition & Follow Up ED Disposition ED Disposition Condition Comment Disch - Home Stable Patient's Medications START taking these medications No medications on file CONTINUE taking these medications which have NOT CHANGED ACETAMINOPHEN 325 MG CAP Take 2 tablets by mouth every 6 (six) hours. DOCUSATE 100 MG CAPSULE Take 1 capsule by mouth daily. May substitute for what is in stock and covered by patient plan DOXYLAMINE-PYRIDOXINE, VIT B6, (DICLEGIS) 10-10 MG PER TABLET Take 2 tablets by mouth at bedtime. HYDROXYPROGEST,PF,,PREG PRESV, 250 MG/ML (1 ML) INJECTION 1 mL by Intramuscular route weekly. VIT 24-[id number]-[id number]-DHA (SELECT-OB + DHA) 29 MG IRON-1 MG -250 MG COMBO PACK Take 1 Packet by mouth daily. PROCHLORPERAZINE 10 MG TABLET Take 1 tablet by mouth every 6 (six) hours as needed (for nausea and vomiting unresponsive to doxylamine/pyridoxine). START taking Modified Medications as Prescribed No medications on file STOP taking these medications No medications on file Jeniffer Ontiveros Jr., MD Clinical Visual Merchandising Director [facility] Emergency Department RINTENDENT CONTAINER [employer]MINAL documented in this encounter Miscellaneous Notes ED Nurse Note - Geno Cueto, RN - 10/18/2020 2:23 PM CSTPt given printed and verbal discharge instructions regarding Hyperemesis gravidarum, dehydration, encouraged hydration, Pt verbalized understanding of instructions, pt awake alert oriented, resp reg unlabored, skin w/d, color appropriate for race, moves all ext well,pt encouraged to follow up with pcp and OBGYN. Advised to seek medical attention for new/prolonged/worsening of symptoms, Symptoms increase vomiting, dehydration, any signs of infection, fever over 100.4 No adverse reaction to meds given in ER noted upon discharge PIV d'cd, dressing to site, catheter in tact. Awake, alert oriented, resp reg unlabored, skin w/d, pt leaving amb with steady gait, in no apparent distress, D Nurse Note - Kelli Miller RN - 10/18/2020 10:16 AM CSTFetal heart tones 141. documented in this encounter Plan of Treatment Date Type Specialty Care Team Description 10/24/2020 Routine Visit [facility] Satellites [facility] Bur[facility] [address], [place] [address] [phone] 10/25/2020 Visual Merchandising Director Visit Maternal Medicine 10/31/2020 Visual Merchandising Director Visit Maternal Medicine 11/01/2020 Office Visit Trauma Surgery Service/[place], Surgery C 11/08/2020 Visual Merchandising Director Visit Maternal Medicine 11/15/2020 Visual Merchandising Director Visit Maternal Medicine 11/22/2020 Visual Merchandising Director Visit Maternal Medicine 11/29/2020 Visual Merchandising Director Visit Maternal Medicine 12/13/2020 Visual Merchandising Director Visit Maternal Medicine Health Maintenance Due Date [...] Name Priority Date/Time Associated Diagnosis Comme nts ADC / LCC - DRUG STAT 10/18/2020 12:52 Hyperemesis Results for this SCREEN TRIAGE PM SUPERINTENDENT [employer]TAIN[employer] gravidarum procedure are in the results section. URINALYSIS STAT 10/18/2020 12:52 Hyperemesis Results for this PM [employer]PER[employer]END[employer] gravidarum procedure are i n the results section. ACTIVATED PARTIAL STAT 10/18/2020 10:23 Hyperemesis Result s for this THRMPLAS BRYANT AM SUPERINTENDENT [employer]TAINER [employer] gravidarum procedure are i n the results section. PROTHROMBIN TIME / STAT 10/18/2020 10:23 Hyperemesis Resul ts for this INR AM SUPERINTENDENT [employer]ER [employer] gravidarum procedure are i n the results section. CBC WITH DIFF STAT 10/18/2020 10:23 Hyperemesis Results fo r this AM SUPERINTENDENT [employer]TAINER [employer] gravidarum procedure are i n the results section. BASIC METABOLIC STAT 10/18/2020 10:23 Hyperemesis Results for this PANEL (NA, K, CL, AM SUPERINTENDENT [employer]TAINER [employer] gravidarum procedure are in CO2, GLUCOSE, BUN, the resul ts CREATININE, CA) section. HEPATIC FUNCTION STAT 10/18/2020 10:23 Hyperemesis Results for this PANEL (43169) AM SUPERINTENDENT CONTAINER [employer]MINAL gravidarum procedure are in (ALB,T.PRO,BILI the results T,BU/BC,ALT,AST,ALK section. PHOS) MAGNESIUM STAT 10/18/2020 10:23 Hyperemesis Results for this AM SUPERINTEND[employer]ER [employer] gravidarum procedure are i n the results section. LIPASE STAT 10/18/2020 10:23 Hyperemesis Results for this AM SUPERINTENDENT CONTAINER [employer] gravidarum procedure are i n the results section. CONSENT/REFUSAL FOR Routine 10/18/2020 9:53 DIAGNOSIS AND AM SUPERINTENDENT [employer]TAINER [employer] TREATMENT NOTICE OF PRIVACY Routine 10/18/2020 9:50 PRACTICES AM SUPERINTENDENT CONTAINER [employer]MINAL documented in this encounter Results ADC / LCC - DRUG SCREEN TRIAGE (10/18/2020 12:52 PM SUPERINTENDENT CONTAINER TERMINAL) Pathologist Sig nature BENZO U Negative Negative [facility] CARYN U Negative Negative [facility] AMPHET Negative Negative [facility] THC Negative Negative [facility] METHADONE Negative Negative [facility] Meth U Negative Negative [facility] OPIATES Negative Negative [facility] Cocaine Metabolite Negative Negative [facility] PROPOXY Negative Negative [facility] Tric U Negative Negative [facility] PCP Negative Negative [facility] OXYCOD Negative Negative [facility] Specimen Urine - URINE, CLEAN CATCH Narrative Performed At Urine Drug Cutoff Ranges [facility] Benzodiazepines: 150 ng/mL Barbiturates: 200 ng/mL Amphetamine: 500 ng/mL Cannabinoids: 50 ng/mL Methadone: 200 ng/mL Methamphetamine: 500 ng/mL Opiates: 100 ng/mL or 2000 ng/mL Cocaine: 150 ng/mL Propoxyphene: 300 ng/mL Tricyclics: 300 ng/mL Oxycodone: 100 ng/mL PCP: 25 ng/mL The results are to be used only for medical (i.e., treatment) purposes. Unconfirmed screening results must not be used for non-medical purposes (e.g., employment testing, legal testing). Performing Organization Address City/State/Zipcode Phone Number [facility] CLIA: [id number] [place] [address] Urinalysis (10/18/2020 12:52 PM SUPERINTENDENT CONTAINER [employer]MINAL) Pathologist Sig nature APPEARANCE Hazy (A) Clear [facility] COLOR Trudi (A) Yellow [facility] PH 5.0 4.8 - 8.0 [facility] SP GRAVITY 1.031 (H) 1.003 - 1.030 [facility] GLU U QUAL 50 mg/dL (A) Normal [facility] BLOOD Negative Negative [facility] KETONES 80 mg/dL (A) Negative [facility] PROTEIN 30 mg/dL (A) Negative [facility] UROBILIN Normal Normal [facility] BILIRUBIN Negative Negative [facility] NITRITE Negative Negative [facility] LEUK HO Negative Negative [facility] RBC/HPF 1 0 - 3 HPF [facility] WBC/HPF 4 0 - 5 HPF [facility] BACTERIA Negative Negative [facility] MUCOUS Moderate (A) Negative LPF [facility] SQ EPITH 6 HPF [facility] YEAST BUD 1 <=1 HPF [facility] Specimen Urine - URINE, CLEAN CATCH Performing Organization Address [facility] Phone Number [facility] CLIA: [id number] [place] [address] MAGNESIUM (10/18/2020 10:23 AM SUPERINTENDENT CONTAINER [employer]MINAL) Pathologist Sig nature MAGNESIUM 1.8 1.7 - 2.4 mg/dL [facility] Specimen Blood - HAND, RIGHT Performing Organization Address [facility] Phone Number [facility] CLIA: [id number] [place] [address] aPTT (10/18/2020 10:23 AM SUPERINTENDENT CONTAINER [employer]MINAL) Pathologist Sig nature APTT Patient 27 23 - 38 Seconds [facility] Specimen Blood - HAND, RIGHT Narrative Performed At [facility] patient population mean normal value [facility] for aPTT is 30 seconds. Performing Organization Address [facility] [place] Phone Number [facility] CLIA: [id number] [place] [address] Prothrombin Time (PT) / INR (10/18/2020 10:23 AM SUPERINTENDENT CONTAINER TERMINAL) PROTIME PATIENT 12.5 12.0 - 14.7 [facility] LABORATORY INR 1.0Comment: Normal [facility] INR <1.1; Warfarin [facility] Therapeutic range LABORATORY 2.0 to 3.0 or 2.5 to 3.5, depending upon the indications. Specimen Blood - HAND, RIGHT Performing Organization Address [facility] [place] Phone Number [facility] CLIA: [id number] [place] [address] LABORATORY [address] [facility] Lipase Serum (10/18/2020 10:23 AM SUPERINTENDENT CONTAINER TERMINAL) Pathologist Sig nature LIPASE 46 0 - 220 U/L [facility] LABORATORY Specimen Blood - HAND, RIGHT Performing Organization Address [facility] [place] Phone Number [facility] CLIA: [id number] [place] [address] LABORATORY 132 [facility] Hepatic Function Panel (ALB, T.PRO, BILI T, BU/BC, ALT, AST, ALK PHOS) (10/18/2020 10:23 AM SUPERINTENDENT CONTAINER TERMINAL) Pathologist Sig nature TOTAL BILI 0.8 0.1 - 1.1 mg/dL [facility] LABORATORY BILI UNCON 0.6 0.1 - 1.1 mg/dL [facility] LABORATORY BILI CONJ 0.0 0.0 - 0.3 mg/dL [facility] LABORATORY T PROTEIN 7.4 6.3 - 8.2 g/dL [facility] LABORATORY ALBUMIN 4.2 3.5 - 5.0 g/dL [facility] LABORATORY ALK PHOS 63 34 - 122 U/L [facility] LABORATORY ALTv 25 5 - 35 U/L [facility] LABORATORY AST(SGOT) 20 13 - 40 U/L [facility] LABORATORY Specimen Blood - HAND, RIGHT Performing Organization Address [facility] [place] Phone Number [facility] CLIA: [id number] [place] [address] [place] [address] Basic Metabolic Panel (NA, K, CL, CO2, GLUCOSE, BUN, CREATININE, CA) (10/18/2020 10:23 AM SUPERINTENDENT CONTAINER TERMINAL) NA 133 (L) 135 - 145 [facility] mmol/L [facility] LABORATORY K 4.1 3.5 - 5.0 [facility] mmol/L HOSPITAL LABORATORY CL 101 98 - 108 mmol/L [facility] LABORATORY CO2 TOTAL 21 (L) 23 - 31 mmol/L [facility] LABORATORY AGAP 11 2 - 16 [facility] LABORATORY BUN 6 (L) 7 - 23 mg/dL [facility] LABORATORY GLUCOSE 98 70 - 110 mg/dL [facility] LABORATORY CREATININE 0.41 (L) 0.50 - 1.04 [facility] mg/dL [facility] LABORATORY CALCIUM 9.8 8.6 - 10.6 [facility] mg/dL [facility] LABORATORY eGFR Calculation 183.4 mL/min/1.73m2 [facility] (Non-[facility] LABORATORY [place]) eGFR Calculation 222.3 mL/min/1.73m2 [facility] () [facility] LABORATORY Specimen Blood - HAND, RIGHT Narrative Performed At [facility] [place] [place] of Glomerular Filtration Rate (GFR) [facility] LABORATORY and Staging of Kidney Disease* + + +- + | GFR (mL/min/1.73 m2) | With Kidney Damage | Without Kidney Damage + + +- + | >90 | Stage one | Normal + + +- + | 60-89 | Stage two | Decreased GFR + + +- + | 30-59 | Stage three | Stage three + + +- + | 15-29 | Stage four | Stage four + + +- + | <15 (or dialysis) | Stage five | Stage five + + +- + *Each stage assumes the associated GFR level has been in effect for at least three months. Stages 1 to 5, with or without kidney disease, indicate chronic kidney disease. Notes: Determination of stages one and two (with eGFR >59mL/min/1.73 m2) requires estimation of kidney damage for at least three months as defined by structural or functional abnormalities of the kidney, manifested by either: Pathological abnormalities or Markers of kidney damage (including abnormalities in the composition of the blood or urine or abnormalities in imaging tests). Performing Organization Address City/State/Zipcode Phone Number [facility] CLIA: [id number] [place] [address] CBC with Differential (10/18/2020 10:23 AM SUPERINTENDENT CONTAINER TERMINAL) Pathologist Sig nature WBC 9.10 4.30 - 11.10 [facility] 10*3/L [facility] LABORATORY RBC 4.75 3.93 - 5.25 [facility] 10*6/L [facility] LABORATORY HGB 14.6 11.6 - 15.0 [facility] g/dL [facility] LABORATORY HCT 40.7 35.7 - 45.2 % [facility] LABORATORY MCV 85.7 80.6 - 95.5 fL [facility] LABORATORY MCH 30.7 25.9 - 32.8 pg [facility] LABORATORY MCHC 35.9 (H) 31.6 - 35.1 [facility] g/dL HOSPITAL LABORATORY RDW-SD 38.6 (L) 39.0 - 49.9 fL [facility] LABORATORY RDW-CV 12.4 12.0 - 15.5 % [facility] LABORATORY PLT 195 166 - 358 [facility] 10*3/L HOSPITAL LABORATORY MPV 9.9 9.5 - 12.9 fL [facility] LABORATORY NRBC/100 WBC 0.0 0.0 - 10.0 /100 [facility] WBCs [facility] LABORATORY NRBC x10^3 <0.01 10*3/L [facility] LABORATORY GRAN MAT (NEUT) % 79.7 % [facility] LABORATORY IMM GRAN % 0.30 % [facility] LABORATORY LYMPH % 15.1 % [facility] LABORATORY MONO % 4.3 % [facility] LABORATORY EOS % 0.4 % [facility] LABORATORY BASO % 0.2 % [facility] LABORATORY GRAN MAT x10^3(ANC) 7.25 (H) 1.88 - 7.09 [facility] 10*3/uL [facility] LABORATORY IMM GRAN x10^3 0.03 0.00 - 0.06 [facility] 10*3/uL [facility] LABORATORY LYMPH x10^3 1.37 1.32 - 3.29 [facility] 10*3/uL [facility] LABORATORY MONO x10^3 0.39 0.33 - 0.92 [facility] 10*3/uL [facility] LABORATORY EOS x10^3 0.04 0.03 - 0.39 [facility] 10*3/uL [facility] LABORATORY BASO x10^3 <0.03 0.01 - 0.07 [facility] 10*3/uL [facility] LABORATORY Specimen Blood - HAND, RIGHT Performing Organization Address City/State/Zipcode Phone Number [facility] CLIA: [id number] [place], [place] [id number] LABORATORY [address] documented in this encounter Visit Diagnoses Diagnosis Hyperemesis gravidarum - Primary Mild hyperemesis gravidarum, unspecified as to episode of care Dehydration documented in this encounter Administered Medications Medication Order MAR Action Action Date Dose Rate Site metoclopramide HCl (REGLAN) Given 10/18/2020 10:19 AM SUPERINTENDENT CONTAINER TERMINAL 10 mg injection 10 mg 10 mg, Slow IV Push, ONCE, 1 dose, 10/18/20 at 1130, NICK NaCl 0.9% (NS) bolus infusion New Bag 10/18/2020 10:20 AM SUPERINTENDENT CONTAINER TERMINAL 1,000 mL 999 mL/hr 1,000 mL at 999 mL/hr, 1,000 mL, IV Infusion, ONCE, 1 dose, 10/18/20 at 1030, NICK proMETHazine (PHENERGAN) 12.5 mg in NaCl Given 10/18/2020 11:17 AM SUPERINTENDENT CONTAINER TERMINAL 12.5 mg 0.9% (NS) 50 mL piggyback 12.5 mg, IV Piggyback, ONCE, 1 dose, 10/18/20 at 1215, 50 mL documented in this encounter Insurance Payer Benefit Plan / Subscriber ID Effective Phone Address T e Group Dates ASIA BETANCOURT [id number] 2018-Anupama Camacho O BOX Medic aid [facility] [place] [id number] MANAGED MEDICAID [place] documented as of this encounter Advance Directives Type Date Recorded Patient Pool Technician Explanati on Advance Directives and Living Will Power of Waste Management Specialist Name Relationship Healthcare Agent Relationship Co mmunication Floyd Holloway Health Care Agent (Work) Preet Coffey Other Health Care Agent 00 (Work)[phone] (Mobile)"
--- OUTSIDE RECORDS SUMMARY | 2020-10-23 14:59 | XMS REPORT | Summary of Care ---
:1990 Author Organization [facility] Address [address] [place] [address] Care Team Providers Name Role Phone Manjit, Gamal Insurance Hmo Lauren Fernandez Primary Care Provider Reason for Visit Reason Comments Orders Brodie Encounter Details Date Type Department Care Team Description 10/18/2020 Telephone [facility]- Karon Fernandez FNP Orders (Flor[place]) [place] [address] [place] [address] [place] [address] Allergies Active Allergy Reactions Severity Noted Date Comments Ibuprofen Hives 04/15/2014 [place] Hives 04/15/2014 Sodium Citrate (Bulk) Nausea and/or Vomiting 9 documented as of this encounter (statuses as of 10/19/2020) Medications Medication Sig Dispensed Refills Start Date End Date Status vit Take 1 Packet by 30 Each 6 08/03/2020 Active 85-anum-ilvfj-dha mouth daily. (SELECT-OB + DHA) 29 mg [...] as of this encounter (statuses as of 10/19/2020) Active Problems Problem Noted Date Cholelithiasis affecting in second trimester , antepartum 10/12/2020 Gallstones 10/11/2020 Overview: Added automatically from request for brea isela [id number] Nausea & vomiting 09/10/2020 9 weeks gestation [...] Obesity in 01/25/2015 Overview: ICD10 Diagnosis Term Mortgage Loan Processor Utility Encounter for IUD removal and reinsertion 01/18/2015 ASCUS on Pap smear 04/15/2014 Estimated Date of Delivery Comments Yes 04/11/2021 Based on Ultrasound, FHT: 127, Transverse Presentation, Placen ta Too early to evaulate documented as of this encounter (statuses as of 10/19/2020) Resolved Problems Problem Noted Date Resolved Date [...] management 01/25/2015 05/20/2018 Overview: ICD10 Diagnosis Term Mortgage Loan Processor Utility Breast tenderness in female 01/25/2015 05/20/2018 Not immune to rubella 04/16/2014 06/04/2016 Overview: ICD10 Diagnosis Term Mortgage Loan Processor Utility documented as of this encounter (statuses as of 10/19/2020) Immunizations Name Administration Dates Next Due HPV9 06/04/2016 MMR 12/20/2018 (Deferred: - not available f [facility]) TDAP 04/06/2015 TDAP (ADACEL) [...] with No / Unsure 10/14/2020 11:02 AM VACUUM TECHNICIAN someone who was confirmed or suspected to have Coronavirus / COVID-19? documented as of this encounter Last Filed Vital Signs Not on filedocumented in this encounter Miscellaneous Notes Telephone Encounter - Cornelius Fernandez FNP - 10/18/2020 8:56 AM CSTMekena injection ordered. elephone Encounter - Cornelius Fernandez FNP - 10/18/2020 8:46 AM VACUUM TECHNICIAN----- Message from Roselyn Moore RN sent at 10/18/2020 8:29 AM VACUUM TECHNICIAN ----- Regarding: FW: brodie Please order [place] (17P). Once ordered I will send prescription and forms for approval. Thank you ----- Message ----- From: Brina Hunt RN Sent: 10/17/2020 10:44 AM VACUUM TECHNICIAN To: Roselyn Moore RN Subject: brodie Dempsey, This is an [place] patient who meets criteria for 17P. Please get approval for 17P, per the Resident, Dr. Song's note. Thank you, Max ----- Message ----- From: Alesha Arriola, CN Sent: 10/16/2020 8:26 AM VACUUM TECHNICIAN To: Brina A Hunt, RN Can you please work with the nursing team for this approval for Brodie? ----- Message ----- From: Laura Agosto MD Sent: 10/14/2020 12:31 PM VACUUM TECHNICIAN To: Alesha Arriola, [facility] Edu[facility], I was wondering if you would be able to give me some direction with this patient. She is a candidatefor Brodie injections and Dr. Galvan would like her to start at 16 weeks. I tried to order it in EPIChowever it only orders it as a medication the patient would roller picker. Are you able to please see how we can get this rolling for her? Thank you for your help! Laura Song PGY-3 UM TECHNICIAN documented in this encounter Plan of Treatment Date Type Specialty Care Team Description 10/24/2020 Routine Visit OB Satellites Flora Burks, [facility] [address], [place] [address] [phone] 10/25/2020 Wage And Hour Investigator Visit Maternal Medicine 10/31/2020 Wage And Hour Investigator Visit Maternal Medicine 11/01/2020 Office Visit Trauma Surgery Service/[place], Surgery C 11/08/2020 Wage And Hour Investigator Visit Maternal Medicine 11/15/2020 Wage And Hour Investigator Visit Maternal Medicine 11/22/2020 Wage And Hour Investigator Visit Maternal Medicine 11/29/2020 Wage And Hour Investigator Visit Maternal Medicine 12/13/2020 Wage And Hour Investigator Visit Maternal Medicine Health Maintenance Due Date [...] Address T ype Group Dates ASIA BETANCOURT [id number] 2018-Anupama P [address] BOX Medic [place] [phone] MANAGED MEDICAID [place], [place] documented as of this encounter Advance Directives Type Date Recorded Patient Optometric Tech Explanati on Advance Directives and Living Will Power of Dumper [employer] Name Relationship Healthcare Agent Relationship Co mmunication Floyd Brown Health Care Agent 00 (Work) Preet Tee Health Care Agent 00 (Work)[phone] (Mobile)
--- OUTSIDE RECORDS SUMMARY | 2020-10-23 14:59 | XMS REPORT | Summary of Care ---
:1990 Author Organization [facility] Address [address] [place] [address] Care Team Providers Name Role Phone Manjit, Gamal Insurance Hmo Lauren Fernandez Primary Care Provider Reason for Visit Reason Comments Orders Brodie Encounter Details Date Type Department Care Team Description 10/18/2020 Telephone [facility]- Karon Fernandez FNP Orders ([place]) [place] [address] [place] [address] [place] [address] Allergies Active Allergy Reactions Severity Noted Date Comments Ibuprofen Hives 04/15/2014 [place] Hives 04/15/2014 Sodium Citrate (Bulk) Nausea and/or Vomiting 9 documented as of this encounter (statuses as of 10/18/2020) Medications Medication Sig Dispensed Refills Start Date End Date Status vit Take 1 Packet by 30 Each 6 08/03/2020 Active 03-foxb-bcwdl-dha mouth daily. (SELECT-OB + DHA) 29 mg [...] Added automatically from request for brea isela [id number] Nausea & vomiting 09/10/2020 9 weeks gestation [...] Obesity in 01/25/2015 Overview: ICD10 Diagnosis Term Oral Health Therapist Utility Encounter for IUD removal and reinsertion [...] management 01/25/2015 05/20/2018 Overview: ICD10 Diagnosis Term Oral Health Therapist Utility Breast tenderness in female 01/25/2015 05/20/2018 Not immune to rubella 04/16/2014 06/04/2016 Overview: ICD10 Diagnosis Term Oral Health Therapist Utility documented as of this encounter (statuses [...] with No / Unsure 10/14/2020 11:02 AM ROUGH RICE TENDER someone who was confirmed or suspected to have Coronavirus / COVID-19? documented as of this encounter Last Filed Vital Signs Not on filedocumented in this encounter Miscellaneous Notes Telephone Encounter - Cornelius Fernandez FNP - 10/18/2020 8:56 AM CSTMekena injection ordered. elephone Encounter - Cornelius Feranndez FNP - 10/18/2020 8:46 AM ROUGH RICE TENDER----- Message from Roselyn Moore RN sent at 10/18/2020 8:29 AM ROUGH RICE TENDER ----- Regarding: FW: brodie Please order [place] (17P). Once ordered I will send prescription and forms for approval. Thank you ----- Message ----- From: Brina Hunt RN Sent: 10/17/2020 10:44 AM ROUGH RICE TENDER To: Roselyn Moore RN Subject: brodie Dempsey, This is an [place] patient who meets criteria for 17P. Please get approval for 17P, per the Resident, Dr. Song's note. Thank you, Max ----- Message ----- From: Alesha Arriola, CN Sent: 10/16/2020 8:26 AM ROUGH RICE TENDER To: Brina A Hunt, RN Can you please work with the nursing team for this approval for Brodie? ----- Message ----- From: Laura Agosto MD Sent: 10/14/2020 12:31 PM ROUGH RICE TENDER To: Alesha Arriola, [facility] Edu[facility], I was wondering if you would be able to give me some direction with this patient. She is a candidatefor Brodie injections and Dr. Galvan would like her to start at 16 weeks. I tried to order it in EPIChowever it only orders it as a medication the patient would orange picker. Are you able to please see how we can get this rolling for her? Thank you for your help! Laura Song PGY-3 H RICE TENDER documented in this encounter Plan of Treatment Date Type Specialty Care Team Description 10/24/2020 Routine Visit OB Satellites Flora Burks, [facility] [address] [place], [place] [address] [phone] 10/25/2020 Distance Learning Program Coordinator Visit Maternal Medicine 10/31/2020 Distance Learning Program Coordinator Visit Maternal Medicine 11/01/2020 Office Visit Trauma Surgery Service/[place], Surgery C 11/08/2020 Distance Learning Program Coordinator Visit Maternal Medicine 11/15/2020 Distance Learning Program Coordinator Visit Maternal Medicine 11/22/2020 Distance Learning Program Coordinator Visit Maternal Medicine 11/29/2020 Distance Learning Program Coordinator Visit Maternal Medicine 12/13/2020 Distance Learning Program Coordinator Visit Maternal Medicine Health Maintenance Due Date [...] Address T ype Group Dates ASIA BETANCOURT [id number] 2018-Anupama P [address] Medic [place] [phone] MA[place]ED MEDICAID [place] documented as of this encounter Advance Directives Type Date Recorded Patient Transportation Department Head Explanati on Advance Directives and Living Will Power of Lab Assistant Name Relationship Healthcare Agent Relationship Co mmunication Floyd Brown Health Care Agent 00 (Work) Preet Tee Health Care Agent 00 (Work)[phone] (Mobile)
--- OUTSIDE RECORDS SUMMARY | 2020-10-23 15:00 | XMS REPORT | Summary of Care ---
:1990 Author Organization [facility] Address [address] [place] [address] Care Team Providers Name Role Phone Manjit, Gamal Insurance Hmo Lauren Fernandez Primary Care Provider Reason for Visit Reason Comments Orders Brodie Encounter Details Date Type Department Care Team Description 10/18/2020 Telephone [facility]- Karon Fernandez FNP Orders ([place]) [place] [address] [place] [address] [place] [address] Allergies Active Allergy Reactions Severity Noted Date Comments Ibuprofen Hives 04/15/2014 [place] Hives 04/15/2014 Sodium Citrate (Bulk) Nausea and/or Vomiting 9 documented as of this encounter (statuses as of 10/19/2020) Medications Medication Sig Dispensed Refills Start Date End Date Status vit Take 1 Packet by 30 Each 6 08/03/2020 Active 00-mqwd-ycuib-dha mouth daily. (SELECT-OB + DHA) 29 mg [...] Added automatically from request for brea isela [id number] Nausea & vomiting 09/10/2020 9 weeks gestation [...] Obesity in 01/25/2015 Overview: ICD10 Diagnosis Term Imagery Analyst Utility Encounter for IUD removal and [...] management 01/25/2015 05/20/2018 Overview: ICD10 Diagnosis Term Imagery Analyst Utility Breast tenderness in female 01/25/2015 05/20/2018 Not immune to rubella 04/16/2014 06/04/2016 Overview: ICD10 Diagnosis Term Imagery Analyst Utility documented as of this encounter (statuses as of 10/19/2020) Immunizations Name Administration Dates Next Due HPV9 06/04/2016 MMR 12/20/2018 (Deferred: - not available f [facility]) TDAP 04/06/2015 TDAP (ADACEL) VACCINE 12/11/2018 [...] with No / Unsure 10/14/2020 11:02 AM AUDIO/VISUAL MANAGER someone who was confirmed or suspected to have Coronavirus / COVID-19? documented as of this encounter Last Filed Vital Signs Not on filedocumented in this encounter Miscellaneous Notes Telephone Encounter - Cornelius Fernandez FNP - 10/18/2020 8:56 AM CSTMekena injection ordered. elephone Encounter - Cornelius Fernandez FNP - 10/18/2020 8:46 AM AUDIO/VISUAL MANAGER----- Message from Roselyn Moore RN sent at 10/18/2020 8:29 AM AUDIO/VISUAL MANAGER ----- Regarding: FW: brodie Please order [place] (17P). Once ordered I will send prescription and forms for approval. Thank you ----- Message ----- From: Brina Hutn RN Sent: 10/17/2020 10:44 AM AUDIO/VISUAL MANAGER To: Roselyn Moore RN Subject: brodie Dempsey, This is an [place] patient who meets criteria for 17P. Please get approval for 17P, per the Resident, Dr. Song's note. Thank you, Max ----- Message ----- From: Alesha Arriola, CN Sent: 10/16/2020 8:26 AM AUDIO/VISUAL MANAGER To: Brina A Hunt, RN Can you please work with the nursing team for this approval for Brodie? ----- Message ----- From: Laura Agosto MD Sent: 10/14/2020 12:31 PM AUDIO/VISUAL MANAGER To: Alesha Arriola, [facility] Edu[facility], I was wondering if you would be able to give me some direction with this patient. She is a candidatefor Brodie injections and Dr. Galvan would like her to start at 16 weeks. I tried to order it in EPIChowever it only orders it as a medication the patient would flower picker. Are you able to please see how we can get this rolling for her? Thank you for your help! Laura Song PGY-3 O/VISUAL MANAGER documented in this encounter Plan of Treatment Date Type Specialty Care Team Description 10/24/2020 Routine Visit OB Satellites Flora Burks, [facility] [address], [place] [address] [phone] 10/25/2020 Seasoner Hand Visit Maternal Medicine 10/31/2020 Seasoner Hand Visit Maternal Medicine 11/01/2020 Office Visit Trauma Surgery Service/[place], Surgery C 11/08/2020 Seasoner Hand Visit Maternal Medicine 11/15/2020 Seasoner Hand Visit Maternal Medicine 11/22/2020 Seasoner Hand Visit Maternal Medicine 11/29/2020 Seasoner Hand Visit Maternal Medicine 12/13/2020 Seasoner Hand Visit Maternal Medicine Health Maintenance Due Date [...] Address T ype Group Dates ASIA BETANCOURT [id number] 2018-Anupama P [address] Medic [place] [id number] MA[place] MEDICA[place] documented as of this encounter Advance Directives Type Date Recorded Patient Control Systems Designer Explanati on Advance Directives and Living Will Power of Print Color Operator Name Relationship Healthcare Agent Relationship Co mmunication Floyd Brown Health Care Agent 00 (Work) Preet Tee Health Care Agent 00 (Work)[phone] (Mobile)
--- OUTSIDE RECORDS SUMMARY | 2020-10-23 15:00 | XMS REPORT | Summary of Care ---
:1990 Author Organization [facility] Address [address] [place] [address] Care Team Providers Name Role Phone Manjit, Gamal Insurance Hmo Lauren Fernandez Primary Care Provider Reason for Visit Reason Comments Orders Brodie Encounter Details Date Type Department Care Team Description 10/18/2020 Telephone [facility]- Karon Fernandez FNP Orders ([place]) [place] [address] [place] [address] [place] [address] Allergies Active Allergy Reactions Severity Noted Date Comments Ibuprofen Hives 04/15/2014 [place] Hives 04/15/2014 Sodium Citrate (Bulk) Nausea and/or Vomiting 9 documented as of this encounter (statuses as of 10/19/2020) Medications Medication Sig Dispensed Refills Start Date End Date Status vit Take 1 Packet by 30 Each 6 08/03/2020 Active 95-hpas-mjbxa-dha mouth daily. (SELECT-OB + DHA) 29 mg [...] Added automatically from request for brea isela [id number] Nausea & vomiting 09/10/2020 9 weeks gestation [...] Obesity in 01/25/2015 Overview: ICD10 Diagnosis Term Felt Hat Flanging Operator Utility Encounter for IUD removal and [...] management 01/25/2015 05/20/2018 Overview: ICD10 Diagnosis Term Felt Hat Flanging Operator Utility Breast tenderness in female 01/25/2015 05/20/2018 Not immune to rubella 04/16/2014 06/04/2016 Overview: ICD10 Diagnosis Term Felt Hat Flanging Operator Utility documented as of this encounter [...] with No / Unsure 10/18/2020 9:57 AM IT INFRASTRUCTURE CONSULTANT someone who was confirmed or suspected to have Coronavirus / COVID-19? documented as of this encounter Last Filed Vital Signs Not on filedocumented in this encounter Miscellaneous Notes Telephone Encounter - Roselyn Moore RN - 10/19/2020 9:53 AM CSTForms sent via Fax to [facility] for approval of Brodie injections. Will await approval. INFRASTRUCTURE CONSULTANT Telephone Encounter - Cornelius Fernandez FNP - 10/18/2020 8:56 AM CSTMekena injection ordered. elephone Encounter - Cornelius Fernandez FNP - 10/18/2020 8:46 AM IT INFRASTRUCTURE CONSULTANT----- Message from Roselyn Moore RN sent at 10/18/2020 8:29 AM IT INFRASTRUCTURE CONSULTANT ----- Regarding: FW: brodie Please order Brodie (17P). Once ordered I will send prescription and forms for approval. Thank you ----- Message ----- From: Brina Hunt RN Sent: 10/17/2020 10:44 AM IT INFRASTRUCTURE CONSULTANT To: Roselyn Moore RN Subject: brodie Dempsey, This is an [place] patient who meets criteria for 17P. Please get approval for 17P, per the Resident, Dr. Song's note. Thank you, Wilmer ----- Message ----- From: Alesha Arriola MORGAN Sent: 10/16/2020 8:26 AM IT INFRASTRUCTURE CONSULTANT To: Brina Hunt, RN Can you please work with the nursing team for this approval for [place]? ----- Message ----- From: Laura Agosto MD Sent: 10/14/2020 12:31 PM IT INFRASTRUCTURE CONSULTANT To: Alesha Arriola [facility] Eduardo, I was wondering if you would be able to give me some direction with this patient. She is a candidatefor Brodie injections and Dr. Galvan would like her to start at 16 weeks. I tried to order it in [facility] it only orders it as a medication the patient would pick up worker. Are you able to please see how we can get this rolling for her? Thank you for your help! Laura Song PGY-3 INFRASTRUCTURE CONSULTANT documented in this encounter Plan of Treatment Date Type Specialty Care Team Description 10/24/2020 Routine Visit OB Satellites Flora Burks, [facility] [address] [place] [address], [place] [address] [phone] 10/25/2020 Instructional Material Director Visit Maternal Medicine 10/31/2020 Instructional Material Director Visit Maternal Medicine 11/01/2020 Office Visit Trauma Surgery Service/[place], Surgery C 11/08/2020 Instructional Material Director Visit Maternal Medicine 11/15/2020 Instructional Material Director Visit Maternal Medicine 11/22/2020 Instructional Material Director Visit Maternal Medicine 11/29/2020 Instructional Material Director Visit Maternal Medicine 12/13/2020 Instructional Material Director Visit Maternal Medicine Health Maintenance Due [...] Address T e Group Dates ASIA BETANCOURT [id number] 2018-Anupama HIDALGO Medic [place] [facility] [place] [id number] MANAGED MEDICAID [place], [place]ICA[place] documented as of this encounter Advance Directives Type Date Recorded Patient Relocation Director Explanati on Advance Directives and Living Will Power of Vinyl Flooring Installer Name Relationship Healthcare Agent Relationship Co mmunication Floyd Holloway Health Care Agent - 00 (Work) Preet Coffey Other Health Care Agent 000- 00 (Work)
[2020-10-23 15:51] LABS: Absolute Lymphocytes (CBC) 1.5 K/uL (0.7-4.9); Basophils % 0.4 % (0-1.3); Lymphocytes % 18.7 % (15.3-44.8); RBC Red Blood Cell Count 4.32 M/uL (3.86-4.86)
[2020-10-23] MEDS ORDERED: NA CHLORIDE 0.9% 1,000 ML ONE (16:02)
[2020-10-23] MEDS ORDERED: DIPHENHYDRAMINE 50 MG/ML VIAL ONE (16:02)
[2020-10-23] MEDS ORDERED: METOCLOPRAMIDE 10 MG/2mL INJ ONE (16:02)
[2020-10-23 16:09] LABS: ALT/SGPT 18 U/L (12-78); AST/SGOT 12 U/L (15-37); Albumin 3.3 g/dL (3.4-5.0); Alkaline Phosphatase 55 U/L (45-117); BUN Blood Urea Nitrogen 3 mg/dL (7-18); Bicarbonate 26 mmol/L (21-32); Bilirubin Direct < 0.1 mg/dL (0-0.2); Bilirubin Total 0.5 mg/dL (0.2-1.0); Glucose Level 88 mg/dL (74-106); Lipase 82 U/L (73-393); Potassium 3.6 mmol/L (3.5-5.1); Sodium Level 136 mmol/L (136-145)
--- NOTE | 2020-10-23 17:42 | ER ---
Nurse's Notes [facility] Name: Suraj Fuentes Age: 29 yrs Sex: Female : 1990 Arrival Date: 10/23/2020 Time: 14:48 Bed 19 Private MD: Diagnosis: Vomiting Presentation: 10/23 15:04 Chief complaint: Patient states: Pt. c/o nausea and vomiting every few minutes. rb3 Approximately 16 weeks . Coronavirus screen: nausea, vomiting. Ebola Screen: Patient denies travel to an Ebola-affected area in the 21 days before illness onset. Initial Sepsis Screen: Does the patient meet any 2 criteria? No. Patient's initial sepsis screen is negative. Does the patient have a suspected source of infection? No. Patient's initial sepsis screen is negative. Risk Assessment: Do you want to hurt yourself or someone else? Patient reports no desire to harm self or others. 15:04 Method Of Arrival: Wheelchair rb3 15:04 Acuity: SHAW 3 rb3 Triage Assessment: 15:04 General: Appears uncomfortable, Behavior is calm, cooperative, Denies fever. Pain: rb3 Denies pain. Neuro: Level of Consciousness is awake, alert, obeys commands, Oriented to person, place, time, situation. Cardiovascular: Patient's skin is warm and dry. Respiratory: Airway is patent Respiratory effort is even, unlabored, Respiratory pattern is regular, symmetrical. GI: Reports nausea, vomiting. : No signs and/or symptoms were reported regarding the genitourinary system. Musculoskeletal: Range of motion: intact in all extremities. Historical: - Allergies: 15:04 Demerol; rb3 15:04 Ibuprofen; rb3 15:04 ORANGES; rb3 - PMHx: 15:04 GALLSTONES; hyperemesis gravidarum; Pancreatitis; rb3 - PSHx: 15:04 ; Appendectomy; Cholecystectomy; rb3 - Immunization history:: Adult Immunizations up to date. - Social history:: Smoking status: Patient/guardian denies using. Screenin:04 Abuse screen: Denies threats or abuse. Nutritional screening: No deficits noted. rb3 Tuberculosis screening: No symptoms or risk factors identified. Fall Risk None identified. Assessment: 15:04 General: See triage assessment. rb3 16:00 Reassessment: Patient appears in no apparent distress at this time. Patient and/or rb3 family updated on plan of care and expected duration. Pain level reassessed. Patient is alert, oriented x 3, equal unlabored respirations, skin warm/dry/pink. 17:00 Reassessment: Pt. resting with eyes closed, respiration even, unlabored. rb3 17:44 Reassessment: Patient appears in no apparent distress at this time. Patient and/or rb3 family updated on plan of care and expected duration. Pain level reassessed. Patient is alert, oriented x 3, equal unlabored respirations, skin warm/dry/pink. Vital Signs: 15:04 BP 127 / 60; Pulse 84; Resp 17; Temp 98.5; Pulse Ox 97% ; Weight 81.19 kg; Height 5 ft. rb3 4 in. (162.56 cm); Pain 0/10; 16:00 BP 130 / 85; Pulse 81; Resp 17; Pulse Ox 100% ; rb3 17:00 BP 131 / 73; Pulse 79; Resp 17; Pulse Ox 100% ; rb3 17:44 BP 101 / 64; Pulse 77; Resp 16; Pulse Ox 100% ; rb3 15:04 Body Mass Index 30.72 (81.19 kg, 162.56 cm) rb3 ED Course: 14:48 Patient arrived in ED. as 15:04 Arm band placed on right wrist. rb3 15:04 Patient has correct armband on for positive identification. Bed in low position. Call rb3 light in reach. Side rails up X 1. Pulse ox on. NIBP on. 15:05 [facility]her Richmond [facility] 15:05 Zane Herring MD is Attending Physician. [facility] 15:23 Dotty Chacon, ALFONZO is Primary Nurse. rb3 15:27 Triage completed. rb3 17:58 No provider procedures requiring assistance completed. IV discontinued, intact, ae4 bleeding controlled, No redness/swelling at site. Pressure dressing applied. Administered Medications: 15:56 Drug: diphenhydrAMINE 50 mg Route: IVP; Site: right antecubital; rb3 16:11 Follow up: Response: No adverse reaction rb3 15:57 Drug: NS 0.9% 1000 ml Route: IV; Rate: 1 bolus; Site: right antecubital; rb3 17:11 Follow up: IV Status: Completed infusion rb3 15:57 Drug: Reglan 20 mg Route: IVP; Site: right antecubital; rb3 16:30 Follow up: Response: No adverse reaction rb3 Outcome: 17:42 Discharge ordered by . yang 17:59 Discharged to home ambulatory, with family. ae4 17:59 Condition: stable 17:59 Discharge instructions given to patient, Instructed on discharge instructions, follow up and referral plans. medication usage, Demonstrated understanding of instructions, follow-up care, medications, Prescriptions given X 2. 17:59 Patient left the ED. ae4 Signatures: Topher Richmond PA PA jmm Martinez, Amelia as Elliott, Andrea RN RN ae4 Dotty Chacon RN RN rb3
--- NOTE | 2020-10-23 17:42 | EDPHYS ---
Physician Documentation [facility] Name: Suraj Fuentes Age: 29 yrs Sex: Female : 1990 Arrival Date: 10/23/2020 Time: 14:48 Bed 19 Private MD: ED Physician Zane Herring HPI: 10/23 15:07 This 29 yrs old Female presents to ER via Wheelchair with complaints of jmm Nausea/Vomiting. 15:07 The patient presents to the emergency department with nausea, vomiting. Onset: The jmm symptoms/episode began/occurred acutely, just prior to arrival. Possible causes: . The symptoms are aggravated by nothing. The symptoms are alleviated by nothing. This is a 29 year old female currently 16 weeks that presents to the ED with complaints of vomiting beginning earlier today. This has occurred multiple times throughout the . Patient has used scopolamine patches with some relief. . Historical: - Allergies: 15:04 Demerol; rb3 15:04 Ibuprofen; rb3 15:04 ORANGES; rb3 - PMHx: 15:04 GALLSTONES; hyperemesis gravidarum; Pancreatitis; rb3 - PSHx: 15:04 ; Appendectomy; Cholecystectomy; rb3 - Immunization history:: Adult Immunizations up to date. - Social history:: Smoking status: Patient/guardian denies using. ROS: 15:07 Constitutional: Negative for fever, chills, and weight loss, Cardiovascular: Negative jmm for chest pain, palpitations, and edema, Respiratory: Negative for shortness of breath, cough, wheezing, and pleuritic chest pain. 15:07 Abdomen/GI: Positive for vomiting. 15:07 All other systems are negative. Exam: 15:07 Constitutional: This is a well developed, well nourished patient who is awake, alert, jmm and in no acute distress. Head/Face: atraumatic. Eyes: EOMI, no conjunctival erythema appreciated ENT: Moist Mucus Membranes Neck: Trachea midline, Supple Chest/axilla: Normal chest wall appearance and motion. Cardiovascular: Regular rate and rhythm. No edema appreciated Respiratory: Normal respirations, no respiratory distress appreciated Abdomen/GI: Non distended, soft Back: Normal ROM Skin: General appearance color normal MS/ Extremity: Moves all extremities, no obvious deformities appreciated, no edema noted to the lower extremities Neuro: Awake and alert, normal gait Psych: Behavior is normal, Mood is normal, Patient is cooperative and pleasant Vital Signs: 15:04 BP 127 / 60; Pulse 84; Resp 17; Temp 98.5; Pulse Ox 97% ; Weight 81.19 kg; Height 5 ft. rb3 4 in. (162.56 cm); Pain 0/10; 16:00 BP 130 / 85; Pulse 81; Resp 17; Pulse Ox 100% ; rb3 17:00 BP 131 / 73; Pulse 79; Resp 17; Pulse Ox 100% ; rb3 17:44 BP 101 / 64; Pulse 77; Resp 16; Pulse Ox 100% ; rb3 15:04 Body Mass Index 30.72 (81.19 kg, 162.56 cm) rb3 MDM: 15:07 Patient medically screened. [facility] 17:39 Data reviewed: vital signs, nurses notes. Counseling: I had a detailed discussion with michelle the patient and/or guardian regarding: the historical points, exam findings, and any diagnostic results supporting the discharge/admit diagnosis, lab results, the need for outpatient follow up, to return to the emergency department if symptoms worsen or persist or if there are any questions or concerns that arise at home. ED course: Symptoms alleviated in the ED. Patient is able to tolerate po in the ED. Advised to follow up with OBGYN for further evaluation. Patient understood and agrees with the plan of care. . 10/23 15:13 Order name: Basic Metabolic Panel; Complete Time: 16:12 [facility] 10/23 15:13 Order name: CBC with Diff; Complete Time: 16:12 [facility] 10/23 15:13 Order name: Hepatic Function; Complete Time: 16:12 [facility] 10/23 15:13 Order name: Lipase; Complete Time: 16:12 [facility] 10/23 15:13 Order name: IV Saline Lock; Complete Time: 15:57 [facility] 10/23 15:13 Order name: Labs collected and sent; Complete Time: 15:57 [facility] Administered Medications: 15:56 Drug: diphenhydrAMINE 50 mg Route: IVP; Site: right antecubital; rb3 16:11 Follow up: Response: No adverse reaction rb3 15:57 Drug: NS 0.9% 1000 ml Route: IV; Rate: 1 bolus; Site: right antecubital; rb3 17:11 Follow up: IV Status: Completed infusion rb3 15:57 Drug: Reglan 20 mg Route: IVP; Site: right antecubital; rb3 16:30 Follow up: Response: No adverse reaction rb3 Disposition: 18:11 Co-signature as Attending Physician, Zane Herring MD. rn Disposition: 10/23/20 17:42 Discharged to Home. Impression: Vomiting. - Condition is Stable. - Discharge Instructions: Eating Plan for Hyperemesis Gravidarum. - Prescriptions for SCOPOLOMINE TRANSDERMAL 1 MG - apply 1 patch by TRANSDERMAL route every 72 hours; 10 Transdermal Patch. Zofran ODT 4 mg Oral tablet,disintegrating - place 1 tablet by TRANSLINGUAL route every 4-6 hours; 20 tablet. - Medication Reconciliation Form, Thank You Letter, Antibiotic Education, Prescription Opioid Use form. - Follow up: Private Physician; When: 2 - 3 days; Reason: Recheck today's complaints, Continuance of care, Re-evaluation by your physician. Signatures: Dispatcher [employer] EDMS Topher Richmond PA PA jmm Nieto, Roman, MD MD rn Elliott, Andrea, RN RN ae4 Dotty Chacon, ALFONZO RN rb3 Corrections: (The following items were deleted from the chart) 17:59 17:42 10/23/2020 17:42 Discharged to Home. Impression: Vomiting. Condition is Stable. ae4 Forms are Medication Reconciliation Form, Thank You Letter, Antibiotic Education, Prescription Opioid Use. Follow up: Private Physician; When: 2 - 3 days; Reason: Recheck today's complaints, Continuance of care, Re-evaluation by your physician. [facility]
[2020-10-23 23:44] VITALS: BP 127/60; TEMP 98.5; O2SAT 97
== END 2020-10-23 17:59 | disposition home or self-care (01) ==
LOC: ER 14:45
DX: O21.9 Vomiting of pregnancy, unspecified (principal); Z3A.16 16 weeks gestation of pregnancy
CPT/HCPCS: 96361; 85025; 80048; 36415; 80076; 83690; 96375; 96374; 99283; J2765; J1200; J7030

== ENCOUNTER 2020-10-25 06:47 | Emergency (ER) | payer MEDICAID ==
[2020-10-25] MEDS ORDERED: LIDOCAINE VISCOUS 2% SOLN 15 ML UDC PO ONE (06:48)
--- OUTSIDE RECORDS SUMMARY | 2020-10-25 06:49 | XMS REPORT | Continuity of Care Document ---
:1990 Author Organization [facility] t Address [address] [place] [address] Care Team Providers Name Role Phone Clarice Urbano Attending Clinician Lauren Thomas Attending Clinician Problems This patient has no known problems. Allergies, Adverse Reactions, Alerts This patient has no known allergies or adverse reactions. Medications This patient has no known medications. Procedures This patient has no known procedures. Encounters Start End Encounter Admission Attending Care Care Encounter Source Date/Time Date/Time Type Type Clinicians Facility Department ID 2020-10-24 2020-10-24 Routine Vitaliy [facility] [id number] 13:42:00 14:39:59 Graciela Oneil BODY RECALL INSTRUCTOR [id number] Visit REGIONAL [id number] MATERNAL [id number] & CHILD [address] [place] [address] 2020-10-21 2020-10-21 Telephone AMBAR Fernandez [id number] 00:00:00 00:00:00 Cornelius Aguilar BODY RECALL INSTRUCTOR [id number] REGIONAL [id number] MATERNAL [id number] & CHILD [address] 2020-10-18 2020-10-18 Telephone JimAMBAR [id number] 00:00:00 00:00:00 Cornelius Aguilar BODY RECALL INSTRUCTOR [id number] [facility] [id number] MATERNAL [id number] & CHILD [address] Results This patient has no known results.
--- OUTSIDE RECORDS SUMMARY | 2020-10-25 07:02 | XMS REPORT | Summary of Care ---
:1990 Author Organization 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 Primary Care Provider Reason for Visit Reason Comments Assessment Rx Concern/Question Refill Request Encounter Details Date Type Department Care Team Description 10/21/2020 Telephone [facility]- Cornelius Fernandez, As sessment; Rx [facility] Concern/Question; [address] [facility] [place] [address] [place], [place] [phone] [phone] Allergies Active Allergy Reactions Severity Noted Date Comments Ibuprofen Hives 04/15/2014 [place] Hives 04/15/2014 Sodium Citrate (Bulk) Nausea and/or Vomiting 9 documented as of this encounter (statuses as of 10/24/2020) Medications Medication Sig Dispensed Refills Start Date End Date Status vit Take 1 Packet by 30 Each 6 08/03/2020 Active 76-ftip-fdztx-dha mouth daily. (SELECT-OB + DHA) 29 mg [...] as of this encounter (statuses as of 10/24/2020) Active Problems Problem Noted Date Cholelithiasis affecting in second trimester , antepartum 10/12/2020 Gallstones 10/11/2020 Overview: Added automatically from request for brea isela [id number] Nausea & vomiting 09/10/2020 9 weeks gestation [...] Obesity in 01/25/2015 Overview: ICD10 Diagnosis Term Machine Set Up Technician Utility Encounter for IUD removal and reinsertion 01/18/2015 ASCUS on Pap smear 04/15/2014 Estimated Date of Delivery Comments Yes 04/11/2021 Based on Ultrasound, FHT: 127, Transverse Presentation, Placen ta Too early to evaulate documented as of this encounter (statuses as of 10/24/2020) Resolved Problems Problem Noted Date Resolved Date 37 weeks gestation of 12/18/2018 01/08/20 19 [place] Hick's contraction 12/12/2018 01/08/2019 Abnormal maternal glucose [...] management 01/25/2015 05/20/2018 Overview: ICD10 Diagnosis Term Machine Set Up Technician Utility Breast tenderness in female 01/25/2015 05/20/2018 Not immune to rubella 04/16/2014 06/04/2016 Overview: ICD10 Diagnosis Term Machine Set Up Technician Utility documented as of this encounter (statuses as of 10/24/2020) Immunizations Name Administration Dates Next Due HPV9 [...] with No / Unsure 10/18/2020 9:57 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 documented as of this encounter Last Filed Vital Signs Not on filedocumented in this encounter Miscellaneous Notes Telephone Encounter - Alfreda Vaughn LVN - 10/24/2020 10:15 AM CSTMorismijerry DesirLulyoskar Fuentes is a 29 year old female Call placed to pharmacy to inform to disregard order. elephone Encounter - Keisha Matthews - 10/21/2020 4:03 PM CSTMorismijerry Mauricio Clotilde Nicolemeera is a 29 year old female. [facility] is in need of a call back. Has questionspertaining to refill request for HYDROXYprogest,PF,,preg presv, 250 mg/mL (1 mL) injection Please call [phone] documented in this encounter Plan of Treatment Date Type Specialty Care Team Description 10/24/2020 Routine Visit OB Satellites Flora Burks, CNP [address] [place], [place] [address] [phone] 10/25/2020 Cs Associate Visit Maternal Medicine 10/31/2020 Cs Associate Visit Maternal Medicine 11/01/2020 Office Visit Trauma Surgery Service/[place], Surgery C 11/08/2020 Cs Associate Visit Maternal Medicine 11/15/2020 Cs Associate Visit Maternal Medicine 11/22/2020 Cs Associate Visit Maternal Medicine 11/29/2020 Cs Associate Visit Maternal Medicine 12/13/2020 Cs Associate Visit Maternal Medicine Health Maintenance Due Date [...] / Subscriber ID Effective Phone Address T [facility] Group Dates BETANCOURT BETANCOURT [id number] 2018-Anupama HIDALGO Medic [place] [id number] MA[place], [place] documented as of this encounter Advance Directives Type Date Recorded 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
--- OUTSIDE RECORDS SUMMARY | 2020-10-25 07:02 | XMS REPORT | Summary of Care ---
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 Skin: Negative. Neurological: Negative. Psychiatric/Behavioral: Negative. Endocrine: Endocrine negative BP 121/76 (BP Location: Right arm, Patient Position: Sitting, BP CUFF SIZE: Adult Medium) | Pulse 96 | Temp 36.5 C (97.7 F) (Oral) | Resp 16 | Ht 5' 4" (1.626 m) | Wt 166 lb 5 oz (75.4 kg) | LMP 06/08/2020 (Approximate) | BMI 28.55 kg/m Pregravid BMI: 30.20 Physical Exam PHYSICAL: General Exam: Neurological: Normal Abdomen: Normal gravid Extremities: Normal Pelvic Exam: Uterus: 16 Weeks Assessment/Plan Return to clinic in 4 weeks. Denies zika virus risk, signs and symptoms such as fever,rash,joint pain, conjunctivitis (red eyes),muscle pain, headaches; outside [place] travel to areas affected by zika, and FOB exposure to zika. Educated on use of mosquito repellent. Supervision of high risk in second trimester (primary encounter diagnosis) Multiparity Previous section complicating Comment: routine Plan: QUAD SCRN Maternal varicella, non-immune Rubella non-immune status, antepartum Comment: no mgmt today Plan: as needed mgmt Over weight Comment: see bmi Plan: BMI discussed, appropriate weight gain, sensible diet, and exercise, increased fiber and waterintake and protein low in fat. Encouraged exercise for 30 min everyday; begin regimen with caution to prevent injury. Encouraged to decrease BMI to <25. Educated on how obesity and smoking can affect future and health. 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 Nausea and vomiting during Comment: reports on meds Plan: as needed mgmt History of delivery Comment: reports brodie was sent to her pharmacy on file, but states she is unsure as to if she desires to start the treatment, but desires to think it over and discuss with her Plan: patient educated on brodie inj, she verbalized understanding, will call/notify the clinic at her follow up appointment. History of cholecystectomy Comment: reports she has surgery on last week Plan: as needed mgmt This visit did not involve counseling and coordination that comprised more than 50% of the visit time. BELLA Brower 10/24/2020 2:39 PM KING UNIT OPERATOR documented in this encounter Plan of Treatment Date Type Specialty Care Team Description 10/25/2020 Air Traffic Control Equipment Repairer Visit Maternal Medicine 10/31/2020 Air Traffic Control Equipment Repairer Visit Maternal Medicine 11/01/2020 Office Visit Trauma Surgery Service/[place], Surgery C 11/08/2020 Air Traffic Control Equipment Repairer Visit Maternal Medicine 11/15/2020 Air Traffic Control Equipment Repairer Visit Maternal Medicine 11/22/2020 Routine Visit OB Satellites Flora Burks WH[facility]NP [address], [place] [address] [phone] 11/22/2020 Air Traffic Control Equipment Repairer Visit Maternal Medicine 11/29/2020 Air Traffic Control Equipment Repairer Visit Maternal Medicine 12/13/2020 Air Traffic Control Equipment Repairer Visit Maternal Medicine Name Type Priority Associated Diagnoses Date/Ti me QUAD SCRN LAB Routine Supervision of high risk pre gnancy in 10/24/2020 2:35 PM CRACKING UNIT OPERATOR second trimester Health Maintenance Due Date Last Done [...] Associated Diagnosis Comme nts POCT URINALYSIS Routine 10/24/2020 2:40 PM Supervision of hig h Results for this CRACKING UNIT OPERATOR risk in procedure are in first trimester the results section. documented in this encounter Results POCT URINALYSIS W SPECIFIC GRAVITY (10/24/2020 2:40 PM CRACKING UNIT OPERATOR) Pathologist Sig nature POCT U SP GRAV . 1.005 - 1.025 mg/dl POCT PH U . 5 - 8 mg/dl POCT U LEUK EST . Negative - Negative POCT U NIT . Negative - Negative POCT U PROT 1+ Negative - Negative POCT U GLU Trace Negative - Negative POCT U KETONE . Negative - Negative POCT U UROBILI . 0.2 - 1 mg/dl POCT U BILI . Negative - Negative POCT U BLD . Negative - Negative POCT U COLOR POCT U APPEAR Specimen Urine - URINE, CLEAN CATCH documented in this encounter Visit Diagnoses Diagnosis Supervision of high risk in se cond trimester - Primary Unspecified high-risk Multiparity Previous section complicating p regnancy Previous delivery, unspecified as to episode of care or not applicable Maternal varicella, non-immune Supervision of other high-risk Rubella non-immune status, antepartum Other specified complication, antepartum Over weight Overweight Nausea and vomiting during History of delivery History of cholecystectomy Other acquired absence of organ Supervision of high risk in fi rst trimester Unspecified high-risk documented in this encounter Insurance Payer Benefit Plan / Subscriber ID Effective Phone Address T e Group Dates ASIA BETANCOURT [id number] 2018-Anupama Camacho [address] [place] [id number] MANAGED MEDICAID [place], [place] documented as of this encounter Advance Directives Type Date Recorded Patient Gynecological Assistant Explanati on Advance Directives and Living Will Power of Packing Room Inspector Name Relationship Healthcare Agent Relationship Co mmunication Floyd Holloway Health Care Agent Preet Coffey Other Health Care Agent
[2020-10-25] MEDS ORDERED: METOCLOPRAMIDE 10 MG/2mL INJ ONE (08:08)
[2020-10-25] MEDS ORDERED: NA CHLORIDE 0.9% 1,000 ML ONE (08:08)
[2020-10-25] MEDS ORDERED: DIPHENHYDRAMINE 50 MG/ML VIAL ONE (08:08)
[2020-10-25] MEDS ORDERED: PROMETHAZINE INJ 25 MG/ML AMP ONE ×2 (08:19→09:54)
[2020-10-25] MEDS ORDERED: MAGNES/ALUMIN/SIMET 30ML UCUP ONE (08:19)
[2020-10-25 08:39] LABS: Absolute Lymphocytes (CBC) 1.6 K/uL (0.7-4.9); Basophils % 0.1 % (0-1.3); Hematocrit 38.4 % (36.0-45.0); Lymphocytes % 17.8 % (15.3-44.8); MPV 8.4 fL (7.6-11.3); RBC Red Blood Cell Count 4.39 M/uL (3.86-4.86)
[2020-10-25 08:48] LABS: ALT/SGPT 20 U/L (12-78); AST/SGOT 14 U/L (15-37); Albumin 3.4 g/dL (3.4-5.0); Alkaline Phosphatase 55 U/L (45-117); BUN Blood Urea Nitrogen 7 mg/dL (7-18); Bicarbonate 24 mmol/L (21-32); Bilirubin Direct 0.1 mg/dL (0-0.2); Bilirubin Total 0.6 mg/dL (0.2-1.0); Glucose Level 100 mg/dL (74-106); Lipase 55 U/L (73-393); Potassium 3.8 mmol/L (3.5-5.1); Sodium Level 137 mmol/L (136-145)
--- NOTE | 2020-10-25 09:06 | ER ---
Nurse's Notes [facility] Name: Suraj Fuentes Age: 29 yrs Sex: Female : 1990 Arrival Date: 10/25/2020 Time: 06:49 Bed 19 Private MD: Diagnosis: Vomiting; related conditions, unspecified, second trimester;Gastritis, unspecified Presentation: 10/25 07:08 Chief complaint: Patient states: abd pain, N/V that began this morning. Pt believes she ss may have food poisoning. Pt is 16 weeks . Coronavirus screen: Client denies travel out of the [place] in the last 14 days. Ebola Screen: Patient denies exposure to infectious person. Patient denies travel to an Ebola-affected area in the 21 days before illness onset. Initial Sepsis Screen: Does the patient have a suspected source of infection? No. Patient's initial sepsis screen is negative. Initial Sepsis Screen: Does the patient meet any 2 criteria?. Risk Assessment: Do you want to hurt yourself or someone else? Patient reports no desire to harm self or others. Onset of symptoms was October 25, 2020. 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 - Social history:: Smoking status: Patient denies any tobacco usage or history of. Patient/guardian denies using alcohol, street drugs, The patient lives with family. - Family history:: not pertinent. Screenin:35 Abuse screen: Denies threats or abuse. Nutritional screening: No deficits noted. vg1 Tuberculosis screening: No symptoms or risk factors identified. 08:21 Fall Risk None identified. sv Assessment: 07:31 Reassessment: Pt's spouse reports that she ate chili last night before going to bed. sv 07:32 General: Appears uncomfortable, Behavior is anxious, crying. Pain: Complains of pain in vg1 abdomen Pain currently is 10 out of 10 on a pain scale. Neuro: Level of Consciousness is awake, alert, obeys commands, Oriented to person, place, time. Cardiovascular: Patient's skin is warm and dry. Respiratory: Airway is patent Respiratory effort is even, unlabored, Respiratory pattern is regular, symmetrical. GI: Bowel sounds present X 4 quads. Reports cramping, nausea, vomiting, Gall bladder Sx about two weeks ago. : No signs and/or symptoms were reported regarding the genitourinary system. EENT: No signs and/or symptoms were reported regarding the EENT system. Derm: Skin is pink, warm \T\ dry. Musculoskeletal: Range of motion: intact in all extremities. 08:08 Reassessment: Patient appears in no apparent distress at this time. No changes from sv previously documented assessment. Patient and/or family updated on plan of care and expected duration. Pain level reassessed. Patient is alert, oriented x 3, equal unlabored respirations, skin warm/dry/pink. 08:42 Reassessment: Patient appears in no apparent distress at this time. Patient and/or sv family updated on plan of care and expected duration. Pain level reassessed. Patient is alert, oriented x 3, equal unlabored respirations, skin warm/dry/pink. Patient states symptoms have improved. 09:45 Reassessment: Patient appears in no apparent distress at this time. Patient and/or sv family updated on plan of care and expected duration. Pain level reassessed. Patient is alert, oriented x 3, equal unlabored respirations, skin warm/dry/pink. Dr Greene gave verbal order for Morphine and Phenergan before discharge. Give Phenergan over 10 mins in NS 50 ml bag. 09:50 Reassessment: Phenergan IV infusing over 10 mins at this time. Will be discharged after sv done infusing. 10:09 GI: Abd is soft and non tender X 4 quads. ll1 Vital Signs: 07:08 BP 126 / 79; Pulse 90; Resp 22; Pulse Ox 97% on R/A; Weight 75.3 kg; Height 5 ft. 4 in. vg1 (162.56 cm); Pain 10/10; 07:10 BP 114 / 70; Temp 97.0(TE); ss 08:21 BP 118 / 66; Pulse 80; Resp 16; Pulse Ox 100% ; sv 09:14 BP 143 / 79 Supine; Pulse 91; kj1 09:15 BP 127 / 79 Sitting; Pulse 89; kj1 09:16 BP 132 / 86 Standing; Pulse 91; kj1 07:08 Body Mass Index 28.49 (75.30 kg, 162.56 cm) vg1 Vitals: 09:23 Heart Tones 120. sv ED Course: 06:49 Patient arrived in ED. cl3 07:10 Triage completed. ss 07:10 Arm band placed on right wrist. ss 07:28 Messi Teixeira MD is Attending Physician. ma2 07:29 Nilda Neil, RN is Primary Nurse. vg1 07:35 Patient has correct armband on for positive identification. Bed in low position. Call vg1 light in reach. Adult w/ patient. Pulse ox on. NIBP on. 08:00 Inserted saline lock: 22 gauge in right wrist, using aseptic technique. ,using aseptic sv technique. diffusics Blood collected. Flushed right with 2 ml normal saline. 08:21 Attending Physician role handed off by Messi Teixeira MD jessica 08:21 Pancho Greene MD is Attending Physician. jessica 10:09 No provider procedures requiring assistance completed. IV discontinued, intact, ll1 bleeding controlled, No redness/swelling at site. Pressure dressing applied. Administered Medications: 08:03 Not Given (Patient Refused): Reglan 10 mg IVP once; over 1 to 2 minutes ma2 08:08 Drug: NS 0.9% 1000 ml Route: IV; Rate: 1 bolus; Site: right wrist; sv 09:23 Follow up: Response: No adverse reaction; IV Status: Completed infusion; IV Intake: sv 1000ml 08:08 Drug: Benadryl 50 mg Route: IVP; Site: right wrist; sv 08:42 Follow up: Response: No adverse reaction sv 08:12 Drug: Phenergan 12.5 mg Route: IVP; Site: right wrist; sv 08:43 Follow up: Response: No adverse reaction sv 08:42 Drug: GI Cocktail without - (Maalox Suspension 30 ml, Lidocaine Liquid 2 % 15 sv ml) Route: PO; 09:08 Follow up: Response: No adverse reaction sv 09:09 Drug: Pepcid 20 mg Route: IVP; Site: right hand; vg1 09:23 Follow up: Response: No adverse reaction sv 09:48 Drug: Phenergan 12.5 mg Route: IVP; Infused Over: 10 mins; Site: right wrist; sv 09:48 Drug: morphine 2 mg {Note: rass1.} Route: IVP; Site: right wrist; sv Intake: 09:23 IV: 1000ml; Total: 1000ml. sv Outcome: 09:05 Discharge ordered by . jessica 10:09 Patient left the ED. ll1 10:09 Discharged to home via wheelchair. ll1 10:09 Condition: stable 10:09 Discharge instructions given to patient, family, Instructed on discharge instructions, follow up and referral plans. medication usage, Demonstrated understanding of instructions, follow-up care, medications, Prescriptions given X 4. Signatures: Brittney Andino RN RN Pancho Terry MD MD cha Smirch, Shelby, RN RN Messi Teixeira MD MD ma2 Jackson, Kandis kj1 Sanya Hudson cl3 Nilda Neil RN RN vg1 Bill Hudson RN RN ll1 Corrections: (The following items were deleted from the chart) 07:32 07:08 Pulse 90bpm; Resp 22bpm; Pulse Ox 97% RA; 75.3 kg; Height 5 ft. 4 in.; BMI: 28.4; vg1 Pain 09/03; ss 09:50 08:42 Reassessment: Patient appears in no apparent distress at this time. No changes sv from previously documented assessment. Patient and/or family updated on plan of care and expected duration. Pain level reassessed. Patient is alert, oriented x 3, equal unlabored respirations, skin warm/dry/pink. sv
--- NOTE | 2020-10-25 09:06 | EDPHYS ---
Physician Documentation [facility] Name: Suraj Fuentes Age: 29 yrs Sex: Female : 1990 Arrival Date: 10/25/2020 Time: 06:49 Bed 19 Private MD: ED Physician Pancho Greene HPI: 10/25 07:50 This 29 yrs old Female presents to ER via Ambulatory with complaints of ma2 nausea vomiting . 07:50 Onset: The symptoms/episode began/occurred gradually, 1 day(s) ago. Possible causes: ma2 unknown. Associated signs and symptoms: Pertinent negatives: anorexia, diarrhea, flatulence, GI bleeding, hematuria. Severity of symptoms: At their worst the symptoms were moderate in the emergency department the symptoms are unchanged. The patient has experienced similar episodes in the past. with hx of hyperemesis gravidarum and pacreatitis, here with pain and vomiting . IMPLEMENTATION COORDINATOR: 10:48 Verified ll1 Historical: - Allergies: 07:10 Demerol; ss 07:10 Ibuprofen; ss 07:10 ORANGES; ss - PMHx: 07:10 hyperemesis gravidarum; Pancreatitis; ss - PSHx: 07:10 Appendectomy; ; Cholecystectomy; ss - Immunization history:: Adult Immunizations up to date. - Social history:: Smoking status: Patient denies any tobacco usage or history of. Patient/guardian denies using alcohol, street drugs, The patient lives with family. - Family history:: not pertinent. ROS: 07:50 Constitutional: Negative for fever, chills, and weight loss, Eyes: Negative for injury, ma2 pain, redness, and discharge. 07:50 All other systems are negative. Exam: 07:50 Constitutional: This is a well developed, well nourished patient who is awake, alert, ma2 and in no acute distress. Head/Face: Normocephalic, atraumatic. Eyes: Pupils equal round and reactive to light, extra-ocular motions intact. Lids and lashes normal. Conjunctiva and sclera are non-icteric and not injected. Cornea within normal limits. Periorbital areas with no swelling, redness, or edema. ENT: Nares patent. No nasal discharge, no septal abnormalities noted. Tympanic membranes are normal and external auditory canals are clear. Oropharynx with no redness, swelling, or masses, exudates, or evidence of obstruction, uvula midline. Mucous membranes moist. Neck: Trachea midline, no thyromegaly or masses palpated, and no cervical lymphadenopathy. Supple, full range of motion without nuchal rigidity, or vertebral point tenderness. No Meningismus. Chest/axilla: Normal chest wall appearance and motion. Nontender with no deformity. No lesions are appreciated. Cardiovascular: Regular rate and rhythm with a normal S1 and S2. No gallops, murmurs, or rubs. Normal PMI, no JVD. No pulse deficits. Respiratory: Lungs have equal breath sounds bilaterally, clear to auscultation and percussion. No rales, rhonchi or wheezes noted. No increased work of breathing, no retractions or nasal flaring. Abdomen/GI: Soft, non-tender, with normal bowel sounds. No distension or tympany. No guarding or rebound. No evidence of tenderness throughout. Skin: Warm, dry with normal turgor. Normal color with no rashes, no lesions, and no evidence of cellulitis. MS/ Extremity: Pulses equal, no cyanosis. Neurovascular intact. Full, normal range of motion. Neuro: Awake and alert, GCS 15, oriented to person, place, time, and situation. Cranial nerves II-XII grossly intact. Motor strength 5/5 in all extremities. Sensory grossly intact. Cerebellar exam normal. Normal gait. Vital Signs: 07:08 BP 126 / 79; Pulse 90; Resp 22; Pulse Ox 97% on R/A; Weight 75.3 kg; Height 5 ft. 4 in. vg1 (162.56 cm); Pain 10/10; 07:10 BP 114 / 70; Temp 97.0(TE); ss 08:21 BP 118 / 66; Pulse 80; Resp 16; Pulse Ox 100% ; sv 09:14 BP 143 / 79 Supine; Pulse 91; kj1 09:15 BP 127 / 79 Sitting; Pulse 89; kj1 09:16 BP 132 / 86 Standing; Pulse 91; kj1 07:08 Body Mass Index 28.49 (75.30 kg, 162.56 cm) vg1 MDM: 07:28 Patient medically screened. ma2 09:02 Differential diagnosis: Nonspecific abd pain, gastritis, pancreatitis. Data reviewed: [facility] vital signs, nurses notes, lab test result(s). Data interpreted: drawing box tender: rate is 80 beats/min, rhythm is regular. Counseling: I had a detailed discussion with the patient and/or guardian regarding: the historical points, exam findings, and any diagnostic results supporting the discharge/admit diagnosis, lab results. 10/25 07:49 Order name: Basic Metabolic Panel; Complete Time: 08:57 ma2 10/25 07:49 Order name: CBC with Diff; Complete Time: 08:57 ma2 10/25 07:49 Order name: Hepatic Function; Complete Time: 08:57 ma2 10/25 07:49 Order name: Lipase; Complete Time: 08:57 ma2 10/25 07:49 Order name: IV Saline Lock; Complete Time: 08:13 ma2 10/25 07:49 Order name: Labs collected and sent; Complete Time: 08:13 ma2 10/25 09:03 Order name: FHT's; Complete Time: 09:23 jessica 10/25 09:07 Order name: Orthostatics; Complete Time: 09:23 jessica Administered Medications: 08:03 Not Given (Patient Refused): Reglan 10 mg IVP once; over 1 to 2 minutes ma2 08:08 Drug: NS 0.9% 1000 ml Route: IV; Rate: 1 bolus; Site: right wrist; sv 09:23 Follow up: Response: No adverse reaction; IV Status: Completed infusion; IV Intake: sv 1000ml 08:08 Drug: Benadryl 50 mg Route: IVP; Site: right wrist; sv 08:42 Follow up: Response: No adverse reaction sv 08:12 Drug: Phenergan 12.5 mg Route: IVP; Site: right wrist; sv 08:43 Follow up: Response: No adverse reaction sv 08:42 Drug: GI Cocktail without - (Maalox Suspension 30 ml, Lidocaine Liquid 2 % 15 sv ml) Route: PO; 09:08 Follow up: Response: No adverse reaction sv 09:09 Drug: Pepcid 20 mg Route: IVP; Site: right hand; vg1 09:23 Follow up: Response: No adverse reaction sv 09:48 Drug: Phenergan 12.5 mg Route: IVP; Infused Over: 10 mins; Site: right wrist; sv 09:48 Drug: morphine 2 mg {Note: rass1.} Route: IVP; Site: right wrist; sv Disposition: 10/25/20 09:05 Discharged to Home. Impression: Vomiting, related conditions, unspecified, second trimester, Gastritis, unspecified. - Condition is Stable. - Discharge Instructions: Abdominal Pain During , Nausea and Vomiting, Adult, Nausea and Vomiting, Adult, [id number]. - Prescriptions for Pepcid 20 mg Oral Tablet - take 1 tablet by ORAL route every 12 hours for 10 days; 20 tablet. Vitamin 27- 0.8 mg Oral Tablet - take 1 tablet by ORAL route once daily; 30 tablet. Zofran 4 mg Oral Tablet - take 1 tablet by ORAL route every 12 hours As needed; 20 tablet. Phenergan 25 mg Rectal Suppository - insert 1 suppository by RECTAL route every 6 hours As needed; 12 suppository. - Medication Reconciliation Form, Thank You Letter, Antibiotic Education, Prescription Opioid Use form. - Follow up: Private Physician; When: 2 - 3 days; Reason: Recheck today's complaints, Continuance of care, Re-evaluation by your physician. - Problem is new. - Symptoms have improved. Signatures: Dispatcher [employer] EDBrittney Marcial RN RN Pancho Terry MD MD cha Smirch, Shelby, RN RN ss Messi Teixeira MD MD ma2 Garcia, Victoria, ALFONZO RN 1 Bill Hudson, RN RN ll1 Corrections: (The following items were deleted from the chart) 10:09 09:05 10/25/2020 09:05 Discharged to Home. Impression: Vomiting; related ll1 conditions, unspecified, second trimester; Gastritis, unspecified. Condition is Stable. Forms are Medication Reconciliation Form, Thank You Letter, Antibiotic Education, Prescription Opioid Use. Follow up: Private Physician; When: 2 - 3 days; Reason: Recheck today's complaints, Continuance of care, Re-evaluation by your physician. Problem is new. Symptoms have improved. jessiac
[2020-10-25] MEDS ORDERED: FAMOTIDINE 20 MG/2 ML VIAL IV ONE (09:16)
[2020-10-25] MEDS ORDERED: MORPHINE 2 MG/ML SYR ONE (09:55)
[2020-10-25] MEDS ORDERED: NA CHLORIDE 0.9% 50 ML ONE (09:55)
[2020-10-25 10:27] VITALS: TEMP 97
[2020-10-25 10:32] VITALS: O2SAT 100
[2020-10-25 10:36] VITALS: BP 132/86
== END 2020-10-25 10:09 | disposition home or self-care (01) ==
LOC: ER 06:47
DX: O99.612 Diseases of the digestive system complicating pregnancy, second trimester (principal); K29.70 Gastritis, unspecified, without bleeding; Z3A.00 Weeks of gestation of pregnancy not specified; Z88.5 Allergy status to narcotic agent; Z88.6 Allergy status to analgesic agent; Z91.018 Allergy to other foods
CPT/HCPCS: 85025; 80048; 36415; 80076; 83690; J2765; J2550 ×2; J1200; J2270; J7030; 99284

== ENCOUNTER 2020-10-27 21:25 | Emergency (ER) | payer MEDICAID ==
--- OUTSIDE RECORDS SUMMARY | 2020-10-27 21:27 | XMS REPORT | Continuity of Care Document ---
:1990 Author Organization [facility] t Address [address] [place] [address] Care Team Providers Name Role Phone Lauren Thomas Attending Clinician Clarice Urbano Attending Clinician Problems This patient has no known problems. Allergies, Adverse Reactions, Alerts This patient has no known allergies or adverse reactions. Medications This patient has no known medications. Procedures This patient has no known procedures. Encounters Start End Encounter Admission Attending Care Care Encounter Source Date/Time Date/Time Type Type Clinicians Facility Department ID 2020-10-27 2020-10-27 Telephone Jim [facility] [id number] 00:00:00 00:00:00 Cornelius Aguilar IT APPLICATION ADMINISTRATOR [id number] REGIONAL [id number] MATERNAL [id number] & CHILD [address] [place] [address] 2020 2020 Telephone AMBAR Burks [id number] 00:00:00 00:00:00 Graciela Oneil IT APPLICATION ADMINISTRATOR [id number] REGIONAL [id number] MATERNAL [id number] & CHILD [facility] 2020-10-24 2020-10-24 Routine [facility] [id number] 13:42:00 14:39:59 Graciela C IT APPLICATION ADMINISTRATOR [id number] Visit REGIONAL [id number] MATERNAL [id number] & CHILD [facility] 2020-10-21 2020-10-21 Telephone [facility] [id number] 00:00:00 00:00:00 Gracya R IT APPLICATION ADMINISTRATOR [id number] REGIONAL [id number] MATERNAL [id number] & CHILD [facility] 2020-10-18 2020-10-18 Telephone [facility] [id number] 00:00:00 00:00:00 Gracya R IT APPLICATION ADMINISTRATOR [id number] REGIONAL [id number] MATERNAL [id number] & CHILD [facility] Results This patient has no known results.
--- OUTSIDE RECORDS SUMMARY | 2020-10-27 21:38 | XMS REPORT | Summary of Care ---
:1990 Author Organization [facility] Address [address] [place] [address] Care Team Providers Name Role Phone Gamal Saravia Insurance Hmo Lauren Fernandez Primary Care Provider Reason for Visit Reason Comments Rx Concern/Question per pharm community they nee d to walk nurse thru roya parker Encounter Details Date Type Department Care Team Description 2020 Telephone [facility] RMP- Graciela Burks Rx Concern/Question BELLA Mcfarland (per pharm community [address] [facility] [address] they need to walk Street JACQUELYN A nurse thru roya [place] [id number] 15 auth) [phone] Allergies Active Allergy Reactions Severity Noted Date Comments Ibuprofen Hives 04/15/2014 [place] Hives 04/15/2014 Sodium Citrate (Bulk) Nausea and/or Vomiting 9 documented as of this encounter (statuses as of 2020) Medications Medication Sig Dispensed Refills Start Date End Date Status vit Take 1 Packet by 30 Each 6 08/03/2020 Active 71-xbie-jwlqa-dha mouth daily. 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 Services Specialist Utility Encounter for IUD removal and reinsertion 01/18/2015 ASCUS on Pap smear 04/15/2014 Estimated Date of Delivery Comments Yes 04/11/2021 Based on Ultrasound, FHT: 127, Transverse Presentation, Placen ta Too early to evaulate documented as of this encounter (statuses as of 2020) Resolved Problems Problem Noted Date Resolved Date 37 weeks gestation of 12/18/2018 01/08/20 19 [place] Hick's contraction 12/12/2018 01/08/2019 Abnormal maternal glucose [...] management 01/25/2015 05/20/2018 Overview: ICD10 Diagnosis Term Vocational Services Specialist Utility Breast tenderness in female 01/25/2015 05/20/2018 Not immune to rubella 04/16/2014 06/04/2016 Overview: ICD10 Diagnosis Term Vocational Services Specialist Utility documented as of this encounter (statuses as of 2020) Immunizations Name Administration Dates Next Due HPV9 [...] with No / Unsure 10/24/2020 1:41 PM 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 documented as of this encounter Last Filed Vital Signs Not on filedocumented in this encounter Miscellaneous Notes Telephone Encounter - Roselyn Moore RN - 2020 4:22 PM CSTPer [facility] at [facility], patient needs prior auth for [facility] prescription.Will obtain preauth and submit. elephone Encounter - Leyla Sapp - 2020 10:05 AM CSTCommunity rx wants call back they need to discuss [facility] prior auth. OL GUARD documented in this encounter Plan of Treatment Date Type Specialty Care Team Description 10/31/2020 Filter Tip Catcher Visit Maternal Medicine 11/01/2020 Office Visit Trauma Surgery Service/[place], Surgery C 11/08/2020 Filter Tip Catcher Visit Maternal Medicine 11/15/2020 Filter Tip Catcher Visit Maternal Medicine 11/22/2020 Routine Visit OB Satellites Flora Burks, CNP [address] [facility], [place] [address] [phone] 11/22/2020 Filter Tip Catcher Visit Maternal Medicine 11/29/2020 Filter Tip Catcher Visit Maternal Medicine 12/13/2020 Filter Tip Catcher Visit Maternal Medicine Health Maintenance Due Date [...] Effective Phone Address T e Group Dates ROYA PRYOR [id number] 2018-Anupama [address] Medic [place] [id number] MANAGED MEDICAID [place], [place] documented as of this encounter Advance Directives Type Date Recorded 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
--- OUTSIDE RECORDS SUMMARY | 2020-10-27 21:38 | XMS REPORT | Summary of Care ---
:1990 Author Organization [facility] Address [address] [place] [address] Care Team Providers Name Role Phone Manjit Gamal Insurance Hmo Lauren Fernandez Primary Care Provider Reason for Visit Reason Comments Authorization Encounter Details Date Type Department Care Team Description 10/27/2020 Telephone [facility]- Karon Fernandez, FLY RAIL OPERATOR Authorization [place] [address] [facility] [address] [facility] [place] [address] [place] [address] Allergies Active Allergy Reactions Severity Noted Date Comments Ibuprofen Hives 04/15/2014 [place] Hives 04/15/2014 Sodium Citrate (Bulk) Nausea and/or Vomiting 9 documented as of this encounter (statuses as of 10/27/2020) Medications Medication Sig Dispensed Refills Start Date End Date Status vit Take 1 Packet by 30 Each 6 08/03/2020 Active 66-qwbh-njzxa-dha mouth daily. 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 Encounter for IUD removal and reinsertion 01/18/2015 ASCUS on Pap smear 04/15/2014 Estimated Date of Delivery Comments Yes 04/11/2021 Based on Ultrasound, FHT: 127, Transverse Presentation, Placen ta Too early to evaulate documented as of this encounter (statuses as of 10/27/2020) Resolved Problems Problem Noted Date Resolved Date 37 weeks gestation of 12/18/2018 01/08/20 19 [place] Hick's contraction 12/12/2018 01/08/2019 Abnormal maternal glucose [...] management 01/25/2015 05/20/2018 Overview: ICD10 Diagnosis Term 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 documented as of this encounter Last Filed Vital Signs Not on filedocumented in this encounter Miscellaneous Notes Telephone Encounter - Roselyn Moore RN - 10/27/2020 2:06 PM CSTInformed Trevon, will be sending pre-auth to [facility] today. No further needs. elephone Encounter - Ines Brown - 10/27/2020 12:18 PM CSTSuraj Zuritasandy Fuentes is a 30 year old female Namida from [facility] is asking for PA. Please call her at [phone] ext [phone] elephone Encounter - Alesha Rousseau - 10/27/2020 7:42 AM CSTFollow up: Suraj Fuentes (: 1990) is waiting for their medication HYDROXYprogesterone Caproate 250mg/ml oil Login to [email or web address]/login and click "ENter a Becker" Becker: [id number] Patient Last Name: SEAMUS : 1990 Complete PA and click "Send to Plan" for approval. documented in this encounter Plan of Treatment Date Type Specialty Care Team Description 10/31/2020 Water Mechanic Visit Maternal Medicine 11/01/2020 Office Visit Trauma Surgery Service/[place], Surgery C 11/08/2020 Water Mechanic Visit Maternal Medicine 11/15/2020 Water Mechanic Visit Maternal Medicine 11/22/2020 Routine Visit OB Satellites Akinsipe, Flora guo C, CNP [address] [facility], [place] [address] [phone] 11/22/2020 Water Mechanic Visit Maternal Medicine 11/29/2020 Water Mechanic Visit Maternal Medicine 12/13/2020 Water Mechanic Visit Maternal Medicine Health Maintenance Due Date [...] Address T e Group Dates ASIA BETANCOURT [id number] 2018-Anupama [place] Medic [place] [id number] [place]ED MEDICA[place] documented as of this encounter Advance Directives Type Date Recorded 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
[2020-10-28] MEDS ORDERED: NA CHLORIDE 0.9% 1,000 ML ONE ×2 (00:39→02:31)
[2020-10-28] MEDS ORDERED: METOCLOPRAMIDE 10 MG/2mL INJ ONE (00:40)
[2020-10-28] MEDS ORDERED: DIPHENHYDRAMINE 50 MG/ML VIAL ONE (00:41)
[2020-10-28] MEDS ORDERED: PROMETHAZINE INJ 25 MG/ML AMP ONE (01:27)
[2020-10-28 02:23] LABS: Absolute Lymphocytes (CBC) 1.5 K/uL (0.7-4.9); Basophils % 0.4 % (0-1.3); Hematocrit 38.5 % (36.0-45.0); Lymphocytes % 18.5 % (15.3-44.8); MPV 8.1 fL (7.6-11.3); RBC Red Blood Cell Count 4.35 M/uL (3.86-4.86)
[2020-10-28 02:40] LABS: BUN Blood Urea Nitrogen 4 mg/dL (7-18); Bicarbonate 21 mmol/L (21-32); Glucose Level 87 mg/dL (74-106); Potassium 3.3 mmol/L (3.5-5.1); Sodium Level 141 mmol/L (136-145)
--- NOTE | 2020-10-28 03:41 | EDPHYS ---
Physician Documentation [facility] Name: Suraj Fuentes Age: 30 yrs Sex: Female : 1990 Arrival Date: 10/27/2020 Time: 21:29 Bed 4 Private MD: ED Physician Corbin Gross HPI: 10/28 01:08 This 30 yrs old Female presents to ER via Wheelchair with complaints of jmm Nausea. 01:08 The patient presents to the emergency department with nausea, diarrhea. Onset: The jmm symptoms/episode began/occurred today. Possible causes: . The symptoms are aggravated by nothing. The symptoms are alleviated by nothing. Associated signs and symptoms: Pertinent negatives: flatulence. The patient has experienced similar episodes in the past, several times. 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 - Social history:: Smoking status: Patient/guardian denies using tobacco. ROS: 10/28 01:08 Constitutional: Negative for fever, chills, and weight loss, Cardiovascular: Negative jmm for chest pain, palpitations, and edema, Respiratory: Negative for shortness of breath, cough, wheezing, and pleuritic chest pain. Abdomen/GI: Positive for vomiting. All other systems are negative. Exam: 01:08 Head/Face: atraumatic. Eyes: EOMI, no conjunctival erythema appreciated ENT: Moist jmm Mucus Membranes Neck: Trachea midline, Supple Chest/axilla: Normal chest wall appearance and motion. Cardiovascular: Regular rate and rhythm. No edema appreciated Respiratory: Normal respirations, no respiratory distress appreciated Abdomen/GI: Non distended, soft Back: Normal ROM Skin: General appearance color normal MS/ Extremity: Moves all extremities, no obvious deformities appreciated, no edema noted to the lower extremities Neuro: Awake and alert, normal gait Psych: Behavior is normal, Mood is normal, Patient is cooperative and pleasant 01:08 Constitutional: The patient appears alert, awake, uncomfortable. Vital Signs: 10/27 21:40 BP 115 / 86; Pulse 100; Resp 17; Temp 98.3(TE); Pulse Ox 95% on R/A; Weight 75.3 kg ca1 (R); Height 5 ft. 4 in. (162.56 cm) (R); Pain 10/10; 12 02:24 BP 121 / 81; Pulse 99; Resp 16; Pulse Ox 100% ; rv 12 21:40 Body Mass Index 28.49 (75.30 kg, 162.56 cm) ca1 MDM: 00:24 Patient medically screened. [facility] 01:09 Transition of care: After a detail discussion of the patient's case, care is [facility] transferred to Corbin Gross MD. 03:34 Data reviewed: vital signs, nurses notes, lab test result(s). ED course: Patient doing pkl better. Nausea ang vomiting resolved. Advised to keep her appt. with her Ob. next week. Patient and family understood instructions. 10/28 01:55 Order name: CBC with Diff; Complete Time: 03:27 10/28 01:55 Order name: Chem 7; Complete Time: 03:27 rv 10/28 00:20 Order name: Saline Lock; Complete Time: 00:39 [facility] 10/28 01:55 Order name: FHT's; Complete Time: 02:23 rv Administered Medications: 00:38 Drug: diphenhydrAMINE 25 mg Route: IVP; Site: left forearm; rv 02:24 Follow up: Response: No adverse reaction rv 00:39 Drug: NS 0.9% 1000 ml Route: IV; Rate: 1 bolus; Site: left forearm; rv 02:24 Follow up: IV Status: Completed infusion; IV Intake: 1000ml rv 01:16 Drug: Promethazine 12.5 mg Route: IVP; Site: left forearm; rv 02:24 Follow up: Response: No adverse reaction rv 01:53 Not Given (Patient Refused): Reglan 20 mg IVP once; put in bolus rv 02:23 Drug: NS 0.9% 1000 ml Route: IV; Rate: 1 bolus; Site: left forearm; rv 03:49 Follow up: Response: No adverse reaction; IV Status: Completed infusion; IV Intake: ll2 1000ml 03:49 Drug: K-Dur 20 mEq Route: PO; ll2 03:49 Follow up: Response: Medication administered at discharge. ll2 Disposition: 03:34 Co-signature as Attending Physician, Corbin Gross MD. pkl Disposition: 10/28/20 03:40 Discharged to Home. Impression: 2nd trimester . Nausea. Vomiting. - Condition is Stable. - Prescriptions for Zofran 4 mg Oral Tablet - take 1 tablet by ORAL route every 12 hours As needed; 10 tablet. - Medication Reconciliation Form, Thank You Letter, Antibiotic Education, Prescription Opioid Use form. - Follow up: Private Physician; When: 2 - 3 days; Reason: Re-evaluation by your physician. - Problem is new. - Symptoms have improved. Signatures: Dispatcher [employer] EDMS Ted Cosby RN RN Corbin Choudhury MD MD pkl Topher Richmond PA PA jmm Vicente, Ronaldo RN RN rv Mora Duenas RN RN ca1 Sera Izquierdo RN RN ll2 Corrections: (The following items were deleted from the chart) 03:57 03:40 10/28/2020 03:40 Discharged to Home. Impression: 2nd trimester . Nausea. sg Vomiting. Condition is Stable. Forms are Medication Reconciliation Form, Thank You Letter, Antibiotic Education, Prescription Opioid Use. Follow up: Private Physician; When: 2 - 3 days; Reason: Re-evaluation by your physician. Problem is new. Symptoms have improved. pkl
--- NOTE | 2020-10-28 03:41 | ER ---
Nurse's Notes [facility] Name: Suraj Fuentes Age: 30 yrs Sex: Female : 1990 Arrival Date: 10/27/2020 Time: 21:29 Bed 4 Private MD: Diagnosis: 2nd trimester . Nausea. Vomiting Presentation: 10/27 21:40 Chief complaint: Patient states: My kidneys hurt. both sides, mostly L. N/V all day. ca1 Coronavirus screen: Client denies travel out of the [place] in the last 14 days. nausea, vomiting. Client presents with at least one sign or symptom that may indicate coronavirus-19. Standard/surgical mask placed on the client. Provider contacted for isolation considerations. Ebola Screen: Patient negative for fever greater than or equal to 101.5 degrees Fahrenheit, and additional compatible Ebola Virus Disease symptoms Patient denies exposure to infectious person. Patient denies travel to an Ebola-affected area in the 21 days before illness onset. No symptoms or risks identified at this time. Initial Sepsis Screen: Does the patient meet any 2 criteria? No. Patient's initial sepsis screen is negative. Does the patient have a suspected source of infection? No. Patient's initial sepsis screen is negative. Risk Assessment: Do you want to hurt yourself or someone else? Patient reports no desire to harm self or others. Onset of symptoms was October 27, 2020. 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 - Social history:: Smoking status: Patient/guardian denies using tobacco. Screenin/04 00:40 Abuse screen: Denies threats or abuse. Denies injuries from another. Nutritional rv screening: No deficits noted. Tuberculosis screening: No symptoms or risk factors identified. Fall Risk None identified. Assessment: 00:39 General: Appears uncomfortable, Behavior is restless. Pain: Complains of pain in left rv low back and right low back. Neuro: Level of Consciousness is awake, alert, obeys commands, Oriented to person, place, time, situation. Cardiovascular: Patient's skin is warm and dry. Respiratory: Airway is patent Respiratory effort is even, unlabored. GI: Abdomen is round Reports nausea. Derm: Skin is intact. 02:00 Reassessment: Patient and/or family updated on plan of care and expected duration. Pain ll2 level reassessed. Patient is alert, oriented x 3, equal unlabored respirations, skin warm/dry/pink. 03:20 Reassessment: Patient and/or family updated on plan of care and expected duration. Pain ll2 level reassessed. Patient is alert, oriented x 3, equal unlabored respirations, skin warm/dry/pink. Vital Signs: 10/27 21:40 BP 115 / 86; Pulse 100; Resp 17; Temp 98.3(TE); Pulse Ox 95% on R/A; Weight 75.3 kg ca1 (R); Height 5 ft. 4 in. (162.56 cm) (R); Pain 10/10; 12 02:24 BP 121 / 81; Pulse 99; Resp 16; Pulse Ox 100% ; rv 12 21:40 Body Mass Index 28.49 (75.30 kg, 162.56 cm) ca1 Vitals: 02:24 Heart Tones 160s . rv ED Course: 10/27 21:29 Patient arrived in ED. ag3 21:42 Triage completed. ca1 21:42 Arm band placed on right wrist. ca1 10/28 00:03 Ye Mao, ALFONZO is Primary Nurse. rv 00:19 Topher Richmond PA is PHCP. jmm 00:19 Corbin Gross MD is Attending Physician. jmm 00:39 Inserted saline lock: 20 gauge in left forearm, using aseptic technique. rv 00:41 Patient has correct armband on for positive identification. Call light in reach. Side rv rails up X 1. Pulse ox on. NIBP on. 02:25 No provider procedures requiring assistance completed. rv Administered Medications: 00:38 Drug: diphenhydrAMINE 25 mg Route: IVP; Site: left forearm; rv 02:24 Follow up: Response: No adverse reaction rv 00:39 Drug: NS 0.9% 1000 ml Route: IV; Rate: 1 bolus; Site: left forearm; rv 02:24 Follow up: IV Status: Completed infusion; IV Intake: 1000ml rv 01:16 Drug: Promethazine 12.5 mg Route: IVP; Site: left forearm; rv 02:24 Follow up: Response: No adverse reaction rv 01:53 Not Given (Patient Refused): Reglan 20 mg IVP once; put in bolus rv 02:23 Drug: NS 0.9% 1000 ml Route: IV; Rate: 1 bolus; Site: left forearm; rv 03:49 Follow up: Response: No adverse reaction; IV Status: Completed infusion; IV Intake: ll2 1000ml 03:49 Drug: K-Dur 20 mEq Route: PO; ll2 03:49 Follow up: Response: Medication administered at discharge. ll2 Intake: 02:24 IV: 1000ml; Total: 1000ml. rv 03:49 IV: 1000ml; Total: 2000ml. ll2 Outcome: 03:40 Discharge ordered by . pkl 03:57 Patient left the ED. sg Signatures: Ted Cosby RN Corbin Baldwin MD MD pkTopher Barroso PA PA jmm Vicente, Ronaldo, RN RN rv Alejandrina Benítez ag3 Mora Duenas RN ALFONZO ca1 Sera Izquierdo RN RN ll2
[2020-10-28] MEDS ORDERED: POTASSIUM CL SA 10 MEQ TAB PO ONE (04:00)
[2020-11-02 15:48] VITALS: BP 121/81; O2SAT 100
== END 2020-10-28 03:57 | disposition home or self-care (01) ==
LOC: ER 21:25
DX: O21.9 Vomiting of pregnancy, unspecified (principal); Z3A.00 Weeks of gestation of pregnancy not specified; Z88.5 Allergy status to narcotic agent; Z88.6 Allergy status to analgesic agent; Z91.018 Allergy to other foods
CPT/HCPCS: 96361; 85025; 80048; 36415; 96375; 96374; 99284; J2765; J2550; J1200; J7030 ×2

== ENCOUNTER 2020-11-07 16:55 | Emergency (ER) | payer MEDICAID ==
--- OUTSIDE RECORDS SUMMARY | 2020-11-07 16:58 | XMS REPORT | Continuity of Care Document ---
:1990 Author Organization [facility] t Address [address] [place] [address] Care Team Providers Name Role Phone Jim Lauren WELLINGTON Attending Clinician Ultrasound Attending Clinician Unavailable Problems This patient has no known problems. Allergies, Adverse Reactions, Alerts This patient has no known allergies or adverse reactions. Medications This patient has no known medications. Procedures This patient has no known procedures. Encounters Start End Encounter Admission Attending Care Care Encounter Source Date/Time Date/Time Type Type Clinicians Facility Department ID 2020-11-03 2020-11-03 Telephone FernandezAMBAR estes [id number] 00:00:00 00:00:00 Cornelius Aguilar MANAGER THERAPY [id number] REGIONAL [id number] MATERNAL [id number] & CHILD 107 [facility] 2020-11-01 2020-11-01 Abstract Jim LUCIOJENY [id number] 00:00:00 00:00:00 Gracya R MANAGER THERAPY [id number] REGIONAL [id number] MATERNAL [id number] & CHILD 107 [facility] 2020-11-01 2020-11-01 Abstract Jim [facility] [id number] 00:00:00 00:00:00 Arelinda R MANAGER THERAPY [id number] REGIONAL [id number] MATERNAL [id number] & CHILD 107 [facility] 2020-11-01 2020-11-01 Telephone Jim [facility] [id number] 00:00:00 00:00:00 Karonnda R MANAGER THERAPY [id number] REGIONAL [id number] MATERNAL [id number] & CHILD 107 [facility] 2020-10-31 2020-10-31 Business Development Executive Ultrasound, [facility] [id number] 15:24:37 15:54:37 Visit [facility] MANAGER THERAPY [id number] REGIONAL [id number] MATERNAL [id number] & CHILD 369 [facility] Results This patient has no known results.
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
--- OUTSIDE RECORDS SUMMARY | 2020-11-07 17:12 | XMS REPORT | Summary of Care ---
:1990 Author Organization [facility] - [facility] Address [address] [place] [address] Care Team Providers Name Role Phone Manjit E Insurance Hmo Lauren Fernandez Primary Care Provider Encounter Details Date Type Department Care Team Description 10/27/2020 Orders Only [facility] Doctor Unassigned, No [address] [facility] [place] [address] [address] [place] [address] Allergies Active Allergy Reactions Severity Noted Date Comments Ibuprofen Hives 04/15/2014 [place] Hives 04/15/2014 Sodium Citrate (Bulk) Nausea and/or Vomiting 9 documented as of this encounter (statuses as of 10/28/2020) Medications Medication Sig Dispensed Refills Start Date End Date Status vit Take 1 Packet by 30 Each 6 08/03/2020 Active 66-laem-gbten-dha mouth daily. (SELECT-OB + DHA) 29 mg [...] Added automatically from request for brea isela [id number] Nausea & vomiting 09/10/2020 9 weeks gestation [...] Obesity in 01/25/2015 Overview: ICD10 Diagnosis Term Power Line Installer And Repairer Utility Encounter for IUD removal and reinsertion 01/18/2015 ASCUS on Pap smear 04/15/2014 Estimated Date of Delivery Comments Yes 04/11/2021 Based on Ultrasound, FHT: 127, Transverse Presentation, Placen ta Too early to evaulate documented as of this encounter (statuses as of 10/28/2020) Resolved Problems Problem Noted Date Resolved Date 37 weeks gestation of 12/18/2018 01/08/20 19 [place] Hick's contraction 12/12/2018 01/08/2019 Abnormal maternal glucose [...] management 01/25/2015 05/20/2018 Overview: ICD10 Diagnosis Term Power Line Installer And Repairer Utility Breast tenderness in female 01/25/2015 05/20/2018 Not immune to rubella 04/16/2014 06/04/2016 Overview: ICD10 Diagnosis Term Power Line Installer And Repairer Utility documented as of this encounter [...] with No / Unsure 10/24/2020 1:41 PM FIRER ELECTRIC LOCOMOTIVE someone who was confirmed or suspected to have Coronavirus / COVID-19? documented as of this encounter Last Filed Vital Signs Not on filedocumented in this encounter Plan of Treatment Date Type Specialty Care Team Description 10/31/2020 Cuff Runner Visit Maternal Medicine 11/01/2020 Office Visit Trauma Surgery Service/[place], Surgery C 11/08/2020 Cuff Runner Visit Maternal Medicine 11/15/2020 Cuff Runner Visit Maternal Medicine 11/22/2020 Routine Visit OB Satellites Akinsipe, [facility] [address] [place] [address] [phone] 11/22/2020 Cuff Runner Visit Maternal Medicine 11/29/2020 Cuff Runner Visit Maternal Medicine 12/13/2020 Cuff Runner Visit Maternal Medicine Health Maintenance Due Date [...] Name Priority Date/Time Associated Diagnosis Comme nts MEDICATION CORRESPONDENCE Routine 10/27/2020 12:01 AM FIRER ELECTRIC LOCOMOTIVE documented in this encounter Results Not on filedocumented in this encounter Insurance Payer Benefit Plan / Subscriber ID Effective Phone Address T [facility] Group Dates ASIA BETANCOURT [id number] 2018-Anupama [address] BOX Medic [place] [id number] [place] MED[place] documented as of this encounter Advance Directives Type Date Recorded 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
--- OUTSIDE RECORDS SUMMARY | 2020-11-07 17:13 | XMS REPORT | Summary of Care ---
:1990 Author Organization [facility] Address [address] [place] [address] Care Team Providers Name Role Phone Saravia Gamal Insurance Hmo Lauren Fernandez Primary Care Provider Encounter Details Date Type Department Care Team Description 11/01/2020 Abstract [facility]- A Cornelius Allen, TALENT ACQUISITION RELATIONSHIP MANAGER [address] [facility] [address] [place] [address] [place] [address] [phone] Allergies Active Allergy Reactions Severity Noted Date Comments Ibuprofen Hives 04/15/2014 [place] Hives 04/15/2014 Sodium Citrate (Bulk) Nausea and/or Vomiting 9 documented as of this encounter (statuses as of 11/01/2020) Medications Medication Sig Dispensed Refills Start Date End Date Status vit Take 1 Packet by 30 Each 6 08/03/2020 Active 94-qoao-cdged-dha mouth daily. (SELECT-OB + DHA) 29 mg [...] as of this encounter (statuses as of 11/01/2020) Active Problems Problem Noted Date History of delivery 10/24/2020 History of cholecystectomy 10/24/2020 Cholelithiasis affecting in second trimester , antepartum 10/12/2020 Gallstones 10/11/2020 Overview: Added automatically from request for brea isela [id number] Nausea & vomiting 09/10/2020 9 weeks gestation [...] Obesity in 01/25/2015 Overview: ICD10 Diagnosis Term Warp Doffer Utility Encounter for IUD removal and reinsertion 01/18/2015 ASCUS on Pap smear 04/15/2014 Estimated Date of Delivery Comments Yes 04/11/2021 Based on Ultrasound, FHT: 127, Transverse Presentation, Placen ta Too early to evaulate documented as of this encounter (statuses as of 11/01/2020) Resolved Problems Problem Noted Date Resolved Date 37 weeks gestation of 12/18/2018 01/08/20 19 [place] Hick's contraction 12/12/2018 01/08/2019 Abnormal maternal glucose [...] management 01/25/2015 05/20/2018 Overview: ICD10 Diagnosis Term Warp Doffer Utility Breast tenderness in female 01/25/2015 05/20/2018 Not immune to rubella 04/16/2014 06/04/2016 Overview: ICD10 Diagnosis Term Warp Doffer Utility documented as of this encounter (statuses as of 11/01/2020) Immunizations Name Administration Dates Next Due HPV9 [...] with No / Unsure 10/24/2020 1:41 PM CINDER MAN someone who was confirmed or suspected to have Coronavirus / COVID-19? documented as of this encounter Last Filed Vital Signs Not on filedocumented in this encounter Plan of Treatment Date Type Specialty Care Team Description 11/08/2020 Field Kiln Burner Visit Maternal Marisel Galvan Medicine MD [address] [place] [address] 11/15/2020 Field Kiln Burner Visit Maternal Marisel Galvan Medicine MD [address] [place] [address] 555 11/22/2020 Routine Visit OB Satellites Akinsisushma, Flora Oneil, CNP [address] [place], [place] [address] [phone] 11/22/2020 Field Kiln Burner Visit Maternal Marisel Galvan Medicine MD [address] [place] [address] 555 11/29/2020 Field Kiln Burner Visit Maternal Marisel Galvan Medicine MD [address] [place] [address] 555 12/13/2020 Field Kiln Burner Visit Maternal Marisel Galvan, Medicine [address] [place] [address] Health Maintenance Due Date Last Done Comments [...] Address T e Group Dates ASIA BETANCOURT [id number] 2018-Anupama [place] Medic [place] [id number] [place] MED[place] documented as of this encounter Advance Directives Type Date Recorded 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
--- OUTSIDE RECORDS SUMMARY | 2020-11-07 17:13 | XMS REPORT | Summary of Care ---
:1990 Author Organization [facility] Address [address] [place] [address] Care Team Providers Name Role Phone Manjit Gamal Insurance Hmo Lauren Fernandez Primary Care Provider Reason for Visit Reason Comments ULTRASOUND (Routine) Status Reason Specialty Diagnoses / Referred By Referred To Procedures Contact Contact Authorized Maternal Diagnoses Gallstones Matthew Izquierdo, Medicine Procedures CONSULT MATERNAL MEDICINE ULTRASOUND Preferred Location: Luiz FRANKLIN [address] [facility] [id number] [place] [address] Encounter Details Date Type Department Care Team Description 10/31/2020 Ordnance Engineering Techn[facility] Galvan rvision of high risk in second trimester; Ultrasound- Luiz Scott MD Supervision of with history of pre-term labor in second trimester; [address] [place] [address] [facility] Previous delivery, antepartum condition or complication [address] [place], [place] [phone] [address] Allergies Active Allergy Reactions Severity Noted Date Comments Ibuprofen Hives 04/15/2014 [place] Hives 04/15/2014 Sodium Citrate (Bulk) Nausea and/or Vomiting 9 documented as of this encounter (statuses as of 10/31/2020) Medications Medication Sig Dispensed Refills Start Date End Date Status vit Take 1 Packet by 30 Each 6 08/03/2020 Active 27-hyeo-fggyd-dha mouth daily. (SELECT-OB + DHA) 29 mg [...] as of this encounter (statuses as of 10/31/2020) Active Problems Problem Noted Date History of delivery 10/24/2020 History of cholecystectomy 10/24/2020 Cholelithiasis affecting in second trimester , antepartum 10/12/2020 Gallstones 10/11/2020 Overview: Added automatically from request for brea isela [id number] Nausea & vomiting 09/10/2020 9 weeks gestation [...] Obesity in 01/25/2015 Overview: ICD10 Diagnosis Term Striper Utility Encounter for IUD removal and reinsertion 01/18/2015 ASCUS on Pap smear 04/15/2014 Estimated Date of Delivery Comments Yes 04/11/2021 Based on Ultrasound, FHT: 127, Transverse Presentation, Placen ta Too early to evaulate documented as of this encounter (statuses as of 10/31/2020) Resolved Problems Problem Noted Date Resolved Date [...] management 01/25/2015 05/20/2018 Overview: ICD10 Diagnosis Term Striper Utility Breast tenderness in female 01/25/2015 05/20/2018 Not immune to rubella 04/16/2014 06/04/2016 Overview: ICD10 Diagnosis Term Striper Utility documented as of this encounter (statuses as of 10/31/2020) Immunizations Name Administration Dates Next Due HPV9 [...] with No / Unsure 10/24/2020 1:41 PM HOTEL SUPPLIES SALESPERSON someone who was confirmed or suspected to have Coronavirus / COVID-19? documented as of this encounter Last Filed Vital Signs Not on filedocumented in this encounter Plan of Treatment Date Type Specialty Care Team Description 11/01/2020 Office Visit Trauma Surgery Service/[place], Surgery C 11/08/2020 Ordnance Engineering Technician Visit Maternal Marisel Galvan Medicine [address] [place], [place] [address] 11/15/2020 Ordnance Engineering Technician Visit Maternal Marisel Galvan Medicine [address] [place], [place] [address] 11/22/2020 Routine Visit OB Satellites Flora Burks, CNP [address] [place], [place] [address] [phone] 11/22/2020 Ordnance Engineering Technician Visit Maternal Marisel Galvan Medicine MD [address] [place], [place] [address] 11/29/2020 Ordnance Engineering Technician Visit Maternal Marisel Galvan Medicine MD [address] [place], [place] [address] 555 12/13/2020 Ordnance Engineering Technician Visit Maternal Marisel Galvan Medicine MD [address] [place], [place] [address] Health Maintenance Due Date Last Done [...] filedocumented in this encounter Visit Diagnoses Diagnosis Supervision of high risk in se cond trimester Unspecified high-risk Supervision of with history of pre-term labor in second trimester with history of pre-term labor Previous delivery, antepartum c ondition or complication documented in this encounter Insurance Payer Benefit Plan / Subscriber ID Effective Phone Address T ype Group Dates ASIA BETANCOURT [id number] 2018-Anupama HID[place] Medic [place] [id number] [place] MED[place] documented as of this encounter Advance Directives Type Date Recorded Patient Can Conveyor Feeder Explanati on Advance Directives and Living Will Power of Furnace Tapper Name Relationship Healthcare Agent Relationship Co mmunication Floyd Brown Health Care Agent 00 (Work) Preet Tee Health Care Agent (Work)[phone] (Mobile)
--- OUTSIDE RECORDS SUMMARY | 2020-11-07 17:13 | XMS REPORT | Summary of Care ---
:1990 Author Organization [facility] Address [address] [place] [address] Care Team Providers Name Role Phone Saravia Gamal Insurance Hmo Lauren Fernandez Primary Care Provider Encounter Details Date Type Department Care Team Description 11/01/2020 Abstract [facility]- A Cornelius Allen, BOAT PILOT 110[address] [facility] [address] [place] [address]55 [place] [address] [phone] Allergies Active Allergy Reactions Severity Noted Date Comments Ibuprofen Hives 04/15/2014 [place] Hives 04/15/2014 Sodium Citrate (Bulk) Nausea and/or Vomiting 9 documented as of this encounter (statuses as of 11/01/2020) Medications Medication Sig Dispensed Refills Start Date End Date Status vit Take 1 Packet by 30 Each 6 08/03/2020 Active 96-yqyz-djqlk-dha mouth daily. (SELECT-OB + DHA) 29 mg [...] Added automatically from request for brea isela [id number] Nausea & vomiting 09/10/2020 9 weeks gestation [...] in 01/25/2015 Overview: ICD10 Diagnosis Term Line Production Cook Utility Encounter for IUD removal and reinsertion 01/18/2015 ASCUS on Pap smear 04/15/2014 Estimated Date of Delivery Comments Yes 04/11/2021 Based on Ultrasound, FHT: 127, Transverse Presentation, Placen ta Too early to evaulate documented as of this encounter (statuses as of 11/01/2020) Resolved Problems Problem Noted Date Resolved Date 37 weeks gestation of 12/18/2018 01/08/20 19 [place] Hick's contraction 12/12/2018 01/08/2019 Abnormal maternal glucose [...] 01/25/2015 05/20/2018 Overview: ICD10 Diagnosis Term Line Production Cook Utility Breast tenderness in female 01/25/2015 05/20/2018 Not immune to rubella 04/16/2014 06/04/2016 Overview: ICD10 Diagnosis Term Line Production Cook Utility documented as of this encounter (statuses [...] with No / Unsure 10/24/2020 1:41 PM WOODEN FRAME BUILDER someone who was confirmed or suspected to have Coronavirus / COVID-19? documented as of this encounter Last Filed Vital Signs Not on filedocumented in this encounter Plan of Treatment Date Type Specialty Care Team Description 11/08/2020 Registered Nurse Teacher Visit Maternal Marisel Galvan Medicine MD [address] [place] [address] 11/15/2020 Registered Nurse Teacher Visit Maternal Marisel Galvan Medicine MD [address] [place] [address] 555 11/22/2020 Routine Visit OB Satellites Akinsisushma, Flora Oneil, CNP [address] [place], [place] [address] [phone] 11/22/2020 Registered Nurse Teacher Visit Maternal Marisel Galvan Medicine MD [address] [place] [address] 555 11/29/2020 Registered Nurse Teacher Visit Maternal Marisel Galvan Medicine MD [address] [place] [address] 555 12/13/2020 Registered Nurse Teacher Visit Maternal Marisel Galvan, Medicine [address] [place] [address] Health Maintenance Due Date Last Done [...] Address T e Group Dates ASIA BETANCOURT [id number] 2018-Anupama HID[place] Medic [place] [id number] MA[place]ED MEDICA[place] documented as of this encounter Advance Directives Type Date Recorded Patient Student Development Coordinator Explanati on Advance Directives and Living Will Power of Jewelry Jobber Name Relationship Healthcare Agent Relationship Co mmunication lFoyd Holloway Health Care Agent 00 (Work) Preet Coffey Other Health Care Agent 000- 00 (Work)
--- OUTSIDE RECORDS SUMMARY | 2020-11-07 17:13 | XMS REPORT | Summary of Care ---
:1990 Author Organization [facility] Address [address] [place] [address] Care Team Providers Name Role Phone Manjit Gamal Insurance Hmo Lauren Fernandez Primary Care Provider Reason for Visit Reason Comments ULTRASOUND (Routine) Status Reason Specialty Diagnoses / Referred By Referred To Procedures Contact Contact Authorized Maternal Diagnoses Gallstones Matthew Izquierdo, Medicine Procedures CONSULT MATERNAL MEDICINE ULTRASOUND Preferred Location: Luiz FRANKLIN [address] [id number] [place] [address] Encounter Details Date Type Department Care Team Description 10/31/2020 Loading Rack Supervisor [facility] Galvan rvision of high risk in second trimester; Ultrasound- Luiz Scott MD Supervision of with history of pre-term labor in second trimester; [address] [address] [facility] Previous delivery, antepartum condition or complication [address] [id number] [place], [place] [phone] [address] Allergies Active Allergy Reactions Severity Noted Date Comments Ibuprofen Hives 04/15/2014 [place] Hives 04/15/2014 Sodium Citrate (Bulk) Nausea and/or Vomiting 9 documented as of this encounter (statuses as of 10/31/2020) Medications Medication Sig Dispensed Refills Start Date End Date Status vit Take 1 Packet by 30 Each 6 08/03/2020 Active 59-teid-kwtar-dha mouth daily. (SELECT-OB + DHA) 29 mg [...] Added automatically from request for brea isela [id number] Nausea & vomiting 09/10/2020 9 weeks gestation [...] Obesity in 01/25/2015 Overview: ICD10 Diagnosis Term E Commerce Solution Architect Utility Encounter for IUD removal and [...] management 01/25/2015 05/20/2018 Overview: ICD10 Diagnosis Term E Commerce Solution Architect Utility Breast tenderness in female 01/25/2015 05/20/2018 Not immune to rubella 04/16/2014 06/04/2016 Overview: ICD10 Diagnosis Term E Commerce Solution Architect Utility documented as of this encounter [...] with No / Unsure 10/24/2020 1:41 PM LEAF STICKER someone who was confirmed or suspected to have Coronavirus / COVID-19? documented as of this encounter Last Filed Vital Signs Not on filedocumented in this encounter Plan of Treatment Date Type Specialty Care Team Description 11/01/2020 Office Visit Trauma Surgery Service/[place], Surgery C 11/08/2020 Loading Rack Supervisor Visit Maternal Marisel Galvan Medicine [address] [place], [place] [address] 11/15/2020 Loading Rack Supervisor Visit Maternal Marisel Galvan Medicine [address] [place], [place] [address] 11/22/2020 Routine Visit OB Satellites Flora Burks, CNP [address] [place], [place] [address] [phone] 11/22/2020 Loading Rack Supervisor Visit Maternal Marisel Galvan Medicine MD [address] [place], [place] [address] 11/29/2020 Loading Rack Supervisor Visit Maternal Marisel Galvan Medicine MD [address] [place], [place] [address] 12/13/2020 Loading Rack Supervisor Visit Maternal Marisel Galvan Medicine MD [address] [place], [place] [address] Health Maintenance Due Date [...] Address T ype Group Dates ASIA BETANCOURT [id number] 2018-Anupama HIDAL[place] Medic [place] [id number] MA[place]ED MED[place] documented as of this encounter Advance Directives Type Date Recorded Patient Refuse Driver Explanati on Advance Directives and Living Will Power of Automatic Door Mechanic Name Relationship Healthcare Agent Relationship Co mmunication Floyd Brown Health Care Agent 00 (Work) Preet Tee Health Care Agent (Work)[phone] (Mobile)
--- OUTSIDE RECORDS SUMMARY | 2020-11-07 17:14 | XMS REPORT | Summary of Care ---
:1990 Author Organization [facility] Address [address] [place] [address] Care Team Providers Name Role Phone Manjit Gamal Insurance Hmo Lauren Fernandez Primary Care Provider Reason for Visit Reason Comments Talk To Nurse Encounter Details Date Type Department Care Team Description 11/01/2020 Telephone [facility]- Karon Fernandez FNP Talk To Nurse [place] [address] [facility] [address] [facility] [place] [address] [place] [address] Allergies Active Allergy Reactions Severity Noted Date Comments Ibuprofen Hives 04/15/2014 [place] Hives 04/15/2014 Sodium Citrate (Bulk) Nausea and/or Vomiting 9 documented as of this encounter (statuses as of 11/04/2020) Medications Medication Sig Dispensed Refills Start Date End Date Status vit Take 1 Packet by 30 Each 6 08/03/2020 Active 19-tpnl-wcgei-dha mouth daily. 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 Encounter for IUD removal and reinsertion 01/18/2015 ASCUS on Pap smear 04/15/2014 Estimated Date of Delivery Comments Yes 04/11/2021 Based on Ultrasound, FHT: 127, Transverse Presentation, Placen ta Too early to evaulate documented as of this encounter (statuses as of 11/04/2020) Resolved Problems Problem Noted Date Resolved Date 37 weeks gestation of 12/18/2018 01/08/20 19 [place] Hick's contraction 12/12/2018 01/08/2019 Abnormal maternal glucose [...] management 01/25/2015 05/20/2018 Overview: ICD10 Diagnosis 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 documented as of this encounter Last Filed Vital Signs Not on filedocumented in this encounter Miscellaneous Notes Telephone Encounter - Roselyn Moore RN - 11/04/2020 7:53 AM CSTPre auth submitted and was rejected. Submitting new forms for appeal. elephone Encounter - Alesha Rousseau - 11/01/2020 2:12 PM CSTCalling regarding authorization for Nara. BLOCKER documented in this encounter Plan of Treatment Date Type Specialty Care Team Description 11/08/2020 Manager Of Broadcast Content Visit Maternal Marisel Galvan Medicine [address] [place], [place] [address] 11/15/2020 Manager Of Broadcast Content Visit Maternal Marisel Galvan Medicine MD [address] [place], [place] [address] 11/22/2020 Routine Visit [facility]ell[facility] Vitaliy, Flora Oneil, WHCNP [address] [place], [place] [address] [phone] 11/22/2020 Manager Of Broadcast Content Visit Maternal Marisel Galvan Medicine MD [address] [place], [place] [address] 11/29/2020 Manager Of Broadcast Content Visit Maternal Marisel Galvan Medicine MD [address] [place], [place] [address] 12/13/2020 Manager Of Broadcast Content Visit Maternal Marisel Galvan Medicine MD [address] [place], [place] [address] Health Maintenance Due Date [...] / Subscriber ID Effective Phone Address T [facility] Group Dates ASIA BETANCOURT [id number] 2018-Anupama HIDALGO Medic [place] [id number] MANAGED MED[place]ID [place] documented as of this encounter Advance Directives Type Date Recorded 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
--- OUTSIDE RECORDS SUMMARY | 2020-11-07 17:14 | XMS REPORT | Summary of Care ---
:1990 Author Organization [facility] Address [address] [place] [address] Care Team Providers Name Role Phone Gamal Saravia Insurance Hmo Lauren Fernandez [facility] Primary Care Provider Reason for Visit Reason Comments Erroneous encounter-disregard Encounter Details Date Type Department Care Team Description 11/03/2020 Telephone [facility]- Cornelius Fernandez Er roneous [facility] encounter-disregard [address] [facility] [address] [place] [address] [place], [place] [phone] [address] [phone] Allergies Active Allergy Reactions Severity Noted Date Comments Ibuprofen Hives 04/15/2014 [place] Hives 04/15/2014 Sodium Citrate (Bulk) Nausea and/or Vomiting 9 documented as of this encounter (statuses as of 11/03/2020) Medications Medication Sig Dispensed Refills Start Date End Date Status vit Take 1 Packet by 30 Each 6 08/03/2020 Active 30-hqxx-goucn-dha mouth daily. 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 Encounter for IUD removal and reinsertion 01/18/2015 ASCUS on Pap smear 04/15/2014 Estimated Date of Delivery Comments Yes 04/11/2021 Based on Ultrasound, FHT: 127, Transverse Presentation, Placen ta Too early to evaulate documented as of this encounter (statuses as of 11/03/2020) Resolved Problems Problem Noted Date Resolved Date 37 weeks gestation of 12/18/2018 01/08/20 19 [place] Hick's contraction 12/12/2018 01/08/2019 Abnormal maternal glucose [...] management 01/25/2015 05/20/2018 Overview: ICD10 Diagnosis Term 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 documented as of this encounter Last Filed Vital Signs Not on filedocumented in this encounter Plan of Treatment Date Type Specialty Care Team Description 11/08/2020 Lease Operator Visit Maternal Marisel Galvan Medicine MD [address] [place] [address] 11/15/2020 Lease Operator Visit Maternal Marisel Galvan Medicine MD [address] [place] [address] 11/22/2020 Routine Visit [facility]ell[facility] Akinsipe, Damdahliaol a C, CNP [address] [place], [place] [address] [phone] 11/22/2020 Lease Operator Visit Maternal Marisel Galvan Medicine MD [address] [place] [address] 11/29/2020 Lease Operator Visit Maternal Marisel Galvan Medicine MD [address] [place] [address] 12/13/2020 Lease Operator Visit Maternal Marisel Galvan, Medicine [address] [place] [address] Health Maintenance Due Date Last Done [...] / Subscriber ID Effective Phone Address T [facility] Group Dates ASIA BETANCOURT [id number] 2018-Anupama HIDALGO Medic [place] [id number] [place]ED MED[place] documented as of this encounter Advance Directives Type Date Recorded 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
[2020-11-07 18:19] LABS: Urine Blood NEGATIVE (NEG); Urine Glucose NEGATIVE (NEG); Urine Protein NEGATIVE (NEG); Urine Specific Gravity 1.025 (1.005-1.030)
[2020-11-07 18:44] LABS: BUN Blood Urea Nitrogen 6 mg/dL (7-18); Bicarbonate 20 mmol/L (21-32); Glucose Level 95 mg/dL (74-106); Potassium 3.6 mmol/L (3.5-5.1); Sodium Level 137 mmol/L (136-145)
[2020-11-07 18:52] LABS: Absolute Lymphocytes (CBC) 1.7 K/uL (0.7-4.9); Basophils % 0.3 % (0-1.3); Hematocrit 40.3 % (36.0-45.0); MPV 8.7 fL (7.6-11.3); RBC Red Blood Cell Count 4.54 M/uL (3.86-4.86)
[2020-11-07] MEDS ORDERED: DICYCLOMINE HCL 20 MG/2 ML AMP IM ONE (19:22)
[2020-11-07] MEDS ORDERED: MORPHINE 2 MG/ML SYR ONE (19:37)
[2020-11-07] MEDS ORDERED: ONDANSETRON 4 MG/2 ML VIAL ONE ×2 (19:37→20:20)
[2020-11-07] MEDS ORDERED: NA CHLORIDE 0.9% 1,000 ML ONE (19:37)
--- NOTE | 2020-11-07 20:29 | ER ---
Nurse's Notes [facility] Name: Suraj Fuentes Age: 30 yrs Sex: Female : 1990 Arrival Date: 11/07/2020 Time: 17:01 Bed 19 Private MD: Diagnosis: Vomiting of , unspecified;Urinary tract infection, site not specified Presentation: 11/07 17:21 Chief complaint: Patient states: abd. pain, N/V since this morning, called OB today but em has not heard from them today, reports running out of medication. Coronavirus screen: Client denies travel out of the [place] in the last 14 days. Ebola Screen: Patient negative for fever greater than or equal to 101.5 degrees Fahrenheit, and additional compatible Ebola Virus Disease symptoms Patient denies exposure to infectious person. Patient denies travel to an Ebola-affected area in the 21 days before illness onset. No symptoms or risks identified at this time. Initial Sepsis Screen: Does the patient meet any 2 criteria? No. Patient's initial sepsis screen is negative. Does the patient have a suspected source of infection? No. Patient's initial sepsis screen is negative. Risk Assessment: Do you want to hurt yourself or someone else? Patient reports no desire to harm self or others. Onset of symptoms was November 07, 2020. 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 - Social history:: Smoking status: unknown. Screenin:01 Abuse screen: Denies threats or abuse. Denies injuries from another. Nutritional ca1 screening: No deficits noted. Tuberculosis screening: No symptoms or risk factors identified. Fall Risk IV access (20 points). Assessment: 18:01 General: Appears in no apparent distress. comfortable, Behavior is calm, cooperative, ca1 appropriate for age. Pain: Denies pain. Neuro: Level of Consciousness is awake, alert, obeys commands, Oriented to person, place, time, situation. Cardiovascular: Heart tones S1 S2 present Capillary refill < 3 seconds Patient's skin is warm and dry. Respiratory: Airway is patent Respiratory effort is even, unlabored, Respiratory pattern is regular, agonal. GI: Abdomen is round non-distended, Bowel sounds present X 4 quads. Abd is soft and non tender X 4 quads. Reports nausea, vomiting. : No signs and/or symptoms were reported regarding the genitourinary system. EENT: No signs and/or symptoms were reported regarding the EENT system. Derm: Skin is intact, is healthy with good turgor, Skin is pink, warm \T\ dry. Musculoskeletal: Circulation, motion, and sensation intact. Capillary refill < 3 seconds. 19:10 Reassessment: Patient appears in no apparent distress at this time. Patient and/or mg2 family updated on plan of care and expected duration. Pain level reassessed. Patient is alert, oriented x 3, equal unlabored respirations, skin warm/dry/pink. 20:30 Reassessment: Patient appears in no apparent distress at this time. Patient states mg2 feeling better. Patient states symptoms have improved. Vital Signs: 17:21 BP 121 / 71; Pulse 64; Resp 18; Temp 97.9; Pulse Ox 99% on R/A; Weight 75.3 kg; Height em 5 ft. 4 in. (162.56 cm); Pain 10/10; 19:10 BP 115 / 80; Pulse 75; Resp 18; Temp 98; Pulse Ox 100% on R/A; mg2 20:49 BP 120 / 70; Pulse 70; Resp 18; Temp 98; Pulse Ox 100% on R/A; mg2 17:21 Body Mass Index 28.49 (75.30 kg, 162.56 cm) em ED Course: 17:01 Patient arrived in ED. as 17:21 Arm band placed on. em 17:23 Triage completed. em 17:50 Urine collected: clean catch specimen, clear. em 17:53 Mora Duenas, RN is Primary Nurse. ca1 18:00 Missed attempt(s): 20 gauge in right antecubital area. Bleeding controlled, band aid ca1 applied, catheter tip intact. 18:01 Patient has correct armband on for positive identification. Placed in gown. Bed in low ca1 position. Call light in reach. Side rails up X2. Pulse ox on. NIBP on. Warm blanket given. 18:02 No provider procedures requiring assistance completed. Initial lab(s) drawn, by me, ca1 held in ED. Inserted saline lock: 22 gauge in right forearm, using aseptic technique. Blood collected. 18:14 Christian Avendaño NP is PHCP. pm1 18:14 Warren Humphrey MD is Attending Physician. pm1 20:49 IV discontinued, intact, bleeding controlled, No redness/swelling at site. Pressure mg2 dressing applied. Administered Medications: 18:25 Drug: NS 0.9% 1000 ml Route: IV; Rate: 1000 ml; Site: right forearm; ca1 20:44 Follow up: Response: No adverse reaction; IV Status: Completed infusion; IV Intake: mg2 1000ml 19:19 Not Given (Patient Refused): Bentyl 20 mg IM once mg2 19:19 Not Given (Physician Discretion): morphine 2 mg IVP once; (PAIN>8) RASS on ADMN: mg2 Combtv4, Very Agttd3, Agttd2, Rstlss1, AlertClm0, Drwsy-1, LtSdtn-2, ModSdtn-3, DpSdtn-4, UnArsble-5 x2 19:28 Drug: Zofran (Ondansetron) 4 mg Route: IVP; Site: right antecubital; mg2 20:07 Follow up: Response: No adverse reaction mg2 19:28 Drug: morphine 2 mg Route: IVP; Site: right antecubital; mg2 20:07 Follow up: Response: No adverse reaction mg2 19:29 Drug: NS 0.9% 1000 ml Route: IV; Rate: 1000 ml; Site: right antecubital; mg2 20:41 Follow up: Response: No adverse reaction; IV Status: Completed infusion; IV Intake: mg2 1000ml 20:07 Drug: Zofran (Ondansetron) 4 mg Route: IVP; Site: right forearm; mg2 20:44 Follow up: Response: No adverse reaction mg2 20:41 Drug: Rocephin 1 grams Route: IV; Rate: calculated rate; Site: right forearm; mg2 20:41 Follow up: Response: No adverse reaction; IV Status: Completed infusion mg2 20:44 Drug: Tylenol 15 mg/kg Route: PO; mg2 20:44 Follow up: Response: No adverse reaction; Medication administered at discharge. mg2 Intake: 20:41 IV: 1000ml; Total: 1000ml. mg2 20:44 IV: 1000ml; Total: 2000ml. mg2 Outcome: : Discharge ordered by . pm1 20:49 Discharged to home ambulatory. mg2 20:49 Condition: stable 20:49 Discharge instructions given to patient, family, Instructed on discharge instructions, follow up and referral plans. medication usage, Demonstrated understanding of instructions, follow-up care, medications, Prescriptions given X 2. 20:49 Patient left the ED. mg2 Signatures: Nathan Rosario, RN RN Jinny Walters Patrick, MARY CARMEN SPECIMEN TRANSPORTER pm1 Tien Juarez RN RN mg2 Mora Duenas RN RN ca1
--- NOTE | 2020-11-07 20:29 | EDPHYS ---
Physician Documentation [facility] Name: Suraj Fuentes Age: 30 yrs Sex: Female : 1990 Arrival Date: 11/07/2020 Time: 17:01 Bed 19 Private MD: ED Physician Warren Humphrey HPI: 11/07 19:42 This 30 yrs old Female presents to ER via Wheelchair with complaints of pm1 Nausea/Vomiting - 18 wks preg, Pain With Urination. 19:42 The patient presents to the emergency department with nausea, vomiting, abdominal pain, pm1 of the suprapubic area. 19:42 Onset: The symptoms/episode began/occurred this morning. Possible causes: UTI. The pm1 symptoms are aggravated by urinating The symptoms are alleviated by nothing. Associated signs and symptoms: Pertinent negatives: constipation, diarrhea, fever. Severity of symptoms: in the emergency department the symptoms are unchanged. The patient has experienced similar episodes in the past, multiple times. 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 - Social history:: Smoking status: unknown. ROS: 19:42 Constitutional: Negative for fever, chills, and weight loss, Cardiovascular: Negative pm1 for chest pain, palpitations, and edema, Respiratory: Negative for shortness of breath, cough, wheezing, and pleuritic chest pain. 19:42 Back: Negative for injury and pain. 19:42 MS/Extremity: Negative for injury and deformity, Skin: Negative for injury, rash, and discoloration, Neuro: Negative for headache, weakness, numbness, tingling, and seizure. 19:42 Abdomen/GI: Positive for abdominal pain, nausea and vomiting, of the suprapubic area, Negative for diarrhea, constipation. 19:42 : Positive for burning with urination. Exam: 19:42 Constitutional: This is a well developed, well nourished patient who is awake, alert, pm1 and in no acute distress. Head/Face: Normocephalic, atraumatic. Chest/axilla: Normal chest wall appearance and motion. Nontender with no deformity. No lesions are appreciated. 19:42 Back: No spinal tenderness. No costovertebral tenderness. Full range of motion. Skin: Warm, dry with normal turgor. Normal color with no rashes, no lesions, and no evidence of cellulitis. MS/ Extremity: Pulses equal, no cyanosis. Neurovascular intact. Full, normal range of motion. 19:42 Cardiovascular: Exam negative for acute changes, Rate: normal, Rhythm: regular, Pulses: no pulse deficits are appreciated. 19:42 Respiratory: Exam negative for acute changes, respiratory distress, shortness of breath. 19:42 Abdomen/GI: Inspection: gravid appearance, Palpation: abdomen is soft and non-tender, in all quadrants. 19:42 Neuro: Exam negative for acute changes, Orientation: is normal, Mentation: is normal, Motor: is normal, moves all fours. Vital Signs: 17:21 BP 121 / 71; Pulse 64; Resp 18; Temp 97.9; Pulse Ox 99% on R/A; Weight 75.3 kg; Height em 5 ft. 4 in. (162.56 cm); Pain 10/10; 19:10 BP 115 / 80; Pulse 75; Resp 18; Temp 98; Pulse Ox 100% on R/A; mg2 20:49 BP 120 / 70; Pulse 70; Resp 18; Temp 98; Pulse Ox 100% on R/A; mg2 17:21 Body Mass Index 28.49 (75.30 kg, 162.56 cm) em MDM: 18:15 Patient medically screened. pm1 20:29 Data reviewed: vital signs. Data interpreted: Pulse oximetry: on room air is 99 %. pm1 Interpretation: normal. Counseling: I had a detailed discussion with the patient and/or guardian regarding: the historical points, exam findings, and any diagnostic results supporting the discharge/admit diagnosis, lab results, the need for outpatient follow up, to return to the emergency department if symptoms worsen or persist or if there are any questions or concerns that arise at home. 11/07 18:07 Order name: Urine Dipstick--Ancillary (enter results); Complete Time: 18:27 bd 11/07 18:07 Order name: Urine --Ancillary (enter results); Complete Time: 18:27 bd 11/07 18:18 Order name: CBC with Diff; Complete Time: 19:09 pm1 11/07 18:18 Order name: BMP; Complete Time: 19:09 pm1 11/07 18:18 Order name: IV Saline Lock; Complete Time: 18:22 pm1 Administered Medications: 18:25 Drug: NS 0.9% 1000 ml Route: IV; Rate: 1000 ml; Site: right forearm; ca1 20:44 Follow up: Response: No adverse reaction; IV Status: Completed infusion; IV Intake: mg2 1000ml 19:19 Not Given (Patient Refused): Bentyl 20 mg IM once mg2 19:19 Not Given (Physician Discretion): morphine 2 mg IVP once; (PAIN>8) RASS on ADMN: mg2 Combtv4, Very Agttd3, Agttd2, Rstlss1, AlertClm0, Drwsy-1, LtSdtn-2, ModSdtn-3, DpSdtn-4, UnArsble-5 x2 19:28 Drug: Zofran (Ondansetron) 4 mg Route: IVP; Site: right antecubital; mg2 20:07 Follow up: Response: No adverse reaction mg2 19:28 Drug: morphine 2 mg Route: IVP; Site: right antecubital; mg2 20:07 Follow up: Response: No adverse reaction mg2 19:29 Drug: NS 0.9% 1000 ml Route: IV; Rate: 1000 ml; Site: right antecubital; mg2 20:41 Follow up: Response: No adverse reaction; IV Status: Completed infusion; IV Intake: mg2 1000ml 20:07 Drug: Zofran (Ondansetron) 4 mg Route: IVP; Site: right forearm; mg2 20:44 Follow up: Response: No adverse reaction mg2 20:41 Drug: Rocephin 1 grams Route: IV; Rate: calculated rate; Site: right forearm; mg2 20:41 Follow up: Response: No adverse reaction; IV Status: Completed infusion mg2 20:44 Drug: Tylenol 15 mg/kg Route: PO; mg2 20:44 Follow up: Response: No adverse reaction; Medication administered at discharge. mg2 Disposition: 11/07/20 20:29 Discharged to Home. Impression: Vomiting of , unspecified, Urinary tract infection, site not specified. - Condition is Stable. - Discharge Instructions: and Urinary Tract Infection, Second Trimester of , Coql-ha-Qcze. - Prescriptions for Zofran ODT 4 mg Oral tablet,disintegrating - place 1 tablet by TRANSLINGUAL route every 8 hours As needed; 20 tablet. Macrobid 100 mg Oral Capsule - take 1 capsule by ORAL route every 12 hours for 10 days; 20 capsule. - Medication Reconciliation Form, Thank You Letter, Antibiotic Education, Prescription Opioid Use form. - Follow up: Emergency Department; When: As needed; Reason: Worsening of condition. Follow up: Private Physician; When: 2 - 3 days; Reason: Recheck today's complaints, Continuance of care, Re-evaluation by your physician. - Problem is new. - Symptoms have improved. Addendum: 11/26/2020 13:07 Co-signature as Attending Physician, Warren Humphrey MD Available for consultation at p s1 all times. Did not see patient unless otherwise noted. Signature is for administrative purposes and not an endorsement of care. . Signatures: Dispatcher [employer] Nathan Aj RN RN em Christian Avendaño, MARY CARMEN STEAMER OPERATOR pm1 Warren Humphrey MD MD ps1 Tien Juarez RN RN mg2 Mora Duenas RN RN ca1 Corrections: (The following items were deleted from the chart) 11/07 20:32 20:29 11/07/2020 20:29 Discharged to Home. Impression: Vomiting of , pm1 unspecified. Condition is Stable. Forms are Medication Reconciliation Form, Thank You Letter, Antibiotic Education, Prescription Opioid Use. Follow up: Emergency Department; When: As needed; Reason: Worsening of condition. Follow up: Private Physician; When: 2 - 3 days; Reason: Recheck today's complaints, Continuance of care, Re-evaluation by your physician. Problem is new. Symptoms have improved. pm1 20:49 20:32 11/07/2020 20:29 Discharged to Home. Impression: Vomiting of , mg2 unspecified; Urinary tract infection, site not specified. Condition is Stable. Discharge Instructions: Second Trimester of , [id number]. Prescriptions for Zofran ODT 4 mg Oral tablet,disintegrating - place 1 tablet by TRANSLINGUAL route every 8 hours As needed; 20 tablet. and Forms are Medication Reconciliation Form, Thank You Letter, Antibiotic Education, Prescription Opioid Use. Follow up: Emergency Department; When: As needed; Reason: Worsening of condition. Follow up: Private Physician; When: 2 - 3 days; Reason: Recheck today's complaints, Continuance of care, Re-evaluation by your physician. Problem is new. Symptoms have improved. pm1
[2020-11-07] MEDS ORDERED: CEFTRIAXONE/SWI 1gm 1 GM/10 ML SYR ONE (20:49)
[2020-11-07] MEDS ORDERED: ACETAMINOPHEN 160 MG/5 ML UCUP ONE (21:01)
[2020-11-10 12:25] VITALS: BP 120/70; TEMP 98; O2SAT 100
== END 2020-11-07 20:49 | disposition home or self-care (01) ==
LOC: ER 16:55
DX: O23.42 Unspecified infection of urinary tract in pregnancy, second trimester (principal); Z3A.18 18 weeks gestation of pregnancy; Z88.5 Allergy status to narcotic agent; Z88.6 Allergy status to analgesic agent; Z91.018 Allergy to other foods
CPT/HCPCS: 85025; 80048; 36415; 81025; 81003; 99284; J0500; J2270; J0696; J7030; J2405 ×2

== ENCOUNTER 2020-11-14 | Emergency (ER) | payer MEDICAID ==
--- OUTSIDE RECORDS SUMMARY | 2020-11-14 00:42 | XMS REPORT | Continuity of Care Document ---
:1990 Author Organization [facility] t Address [address] [place] [address] Care Team Providers Name Role Phone Jim [...] Date/Time Type Type Clinicians Facility Department ID 2020-11-09 2020-11-09 Abstract Jim MSJENY [id number] 00:00:00 00:00:00 Cornelius Aguilar EMPLOYMENT AND CLAIMS AIDE [id number] REGIONAL [id number] MATERNAL [phone] & CHILD 107 [facility] 2020-11-08 2020-11-08 Preschool Director Maria Ines [facility] [id number] 14:59:47 15:29:47 Visit Seth-Juanis EMPLOYMENT AND CLAIMS AIDE [id number] REGIONAL [id number] MATERNAL [id number] & CHILD 369 [facility] 2020-11-03 2020-11-03 Telephone Jim [facility] [id number] 00:00:00 00:00:00 Roshunda R EMPLOYMENT AND CLAIMS AIDE [id number] REGIONAL [id number] MATERNAL [phone] & CHILD 107 [facility] 2020-11-01 2020-11-01 Abstract Jim [facility] [id number] 00:00:00 00:00:00 Roshunda R EMPLOYMENT AND CLAIMS AIDE [id number] REGIONAL [id number] MATERNAL [id number] & CHILD 107 [facility] 2020-11-01 2020-11-01 [facility] Jim [facility] [id number] 00:00:00 00:00:00 Roshunda R EMPLOYMENT AND CLAIMS AIDE [id number] REGIONAL [id number] MATERNAL [id number] & CHILD 107 [facility] 2020-11-01 2020-11-01 [place] Jim [facility] [id number] 00:00:00 00:00:00 Roshunda R EMPLOYMENT AND CLAIMS AIDE [id number] REGIONAL [id number] MATERNAL [id number] & CHILD 107 [facility] 2020-10-31 2020-10-31 Preschool Director Ultrasound, [facility] [id number] 15:24:37 15:54:37 Visit [facility] EMPLOYMENT AND CLAIMS AIDE [id number] REGIONAL [id number] MATERNAL [phone] & CHILD 369 [facility] Results This patient has no known results.
--- OUTSIDE RECORDS SUMMARY | 2020-11-14 01:01 | XMS REPORT | Summary of Care ---
:1990 Author Organization [facility] - [facility] Address [address] [place] [address] Care Team Providers Name Role Phone Manjit Gamal Insurance Hmo Lauren Fernandez Primary Care Provider Reason for Visit Reason Comments ULTRASOUND (Routine) Status Reason Specialty Diagnoses / Referred By Referred To Procedures Contact Contact Authorized Maternal Diagnoses Gallstones Matthew Izquierdo, Medicine Procedures CONSULT MATERNAL MEDICINE ULTRASOUND Preferred Location: Luiz FRANKLIN [address] [facility] [id number] [place] [address] Encounter Details Date Type Department Care Team Description 11/08/2020 Deckhand Crab Boat [facility] Galvan MD [address] [facility] [id number] [place] [address] Previous delivery, antepartum c ondition or complication; Ultrasound- Karlie Do MD [address] [facility] [id number] [place] [address] [id number] Supervision of high risk in se cond trimester; [address] [facility] Supervision of wit h history of pre-term labor [place] [phone] Allergies Active Allergy Reactions Severity Noted Date Comments Ibuprofen Hives 04/15/2014 [place] Hives 04/15/2014 Sodium Citrate (Bulk) Nausea and/or Vomiting 9 documented as of this encounter (statuses as of 11/08/2020) Medications Medication Sig Dispensed Refills Start Date End Date Status vit Take 1 Packet by 30 Each 6 08/03/2020 Active 55-juun-bwdeh-dha mouth daily. 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 Encounter for IUD removal and reinsertion 01/18/2015 ASCUS on Pap smear 04/15/2014 Estimated Date of Delivery Comments Yes 04/11/2021 Based on Ultrasound, FHT: 127, Transverse Presentation, Placen ta Too early to evaulate documented as of this encounter (statuses as of 11/08/2020) Resolved Problems Problem Noted Date Resolved Date 37 weeks gestation of 12/18/2018 01/08/20 19 [place] Hick's contraction 12/12/2018 01/08/2019 Abnormal maternal glucose [...] management 01/25/2015 05/20/2018 Overview: ICD10 Diagnosis 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 documented as of this encounter Last Filed Vital Signs Not on filedocumented in this encounter Plan of Treatment Date Type Specialty Care Team Description 11/15/2020 Deckhand Crab Boat Visit Maternal Marisel Galvan, Medicine [address] [place], [place] [address] 11/22/2020 Routine Visit OB Satellites Flora Burks, WHCNP [address] [place], [place] [address] [phone] 11/22/2020 Deckhand Crab Boat Visit Maternal Marisel Galvan Medicine MD [address] [place], [place] [address] 11/29/2020 Deckhand Crab Boat Visit Maternal Marisel Galvan Medicine MD [address] [place], [place] [address] 12/13/2020 Deckhand Crab Boat Visit Maternal Marisel Galvan Medicine MD [address] [place], [place] [address] Health Maintenance Due Date [...] filedocumented in this encounter Visit Diagnoses Diagnosis Previous delivery, antepartum c ondition or complication Supervision of high risk in se cond trimester Unspecified high-risk Supervision of with history of pre-term labor in second trimester with history of pre-term labor documented in this encounter Insurance Payer Benefit Plan / Subscriber ID Effective Phone Address T ype Group Dates ASIA BETANCOURT [id number] 2018-Anupama HIDALGO Medic [facility] [place] [id number] MANAGED [place] documented as of this encounter Advance Directives Type Date Recorded Patient Instructor Nurse Explanati on Advance Directives and Living Will Power of Scallop Cutter Name Relationship Healthcare Agent Relationship Co mmunication Floyd Holloway Health Care Agent (Work) Preet Tee Health Care Agent (Work)[phone] (Mobile)
--- OUTSIDE RECORDS SUMMARY | 2020-11-14 01:01 | XMS REPORT | Summary of Care ---
:1990 Author Organization [facility] Address [address] [place] [address] Care Team Providers Name Role Phone Saravia Gamal Insurance Hmo Lauren Fernadnez Primary Care Provider Encounter Details Date Type Department Care Team Description 11/09/2020 Abstract [facility]- A Cornelius Allen, SCHOOL AGE LEAD TEACHER [address] [facility] [address] [place] [address] [address] [place] [address] [phone] Allergies Active Allergy Reactions Severity Noted Date Comments Ibuprofen Hives 04/15/2014 [place] Hives 04/15/2014 Sodium Citrate (Bulk) Nausea and/or Vomiting 9 documented as of this encounter (statuses as of 11/09/2020) Medications Medication Sig Dispensed Refills Start Date End Date Status vit Take 1 Packet by 30 Each 6 08/03/2020 Active 40-ucol-htgit-dha mouth daily. 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 Encounter for IUD removal and reinsertion 01/18/2015 ASCUS on Pap smear 04/15/2014 Estimated Date of Delivery Comments Yes 04/11/2021 Based on Ultrasound, FHT: 127, Transverse Presentation, Placen ta Too early to evaulate documented as of this encounter (statuses as of 11/09/2020) Resolved Problems Problem Noted Date Resolved Date 37 weeks gestation of 12/18/2018 01/08/20 19 [place] Hick's contraction 12/12/2018 01/08/2019 Abnormal maternal glucose [...] management 01/25/2015 05/20/2018 Overview: ICD10 Diagnosis 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 documented as of this encounter Last Filed Vital Signs Not on filedocumented in this encounter Plan of Treatment Date Type Specialty Care Team Description 11/15/2020 Older Worker Specialist Visit Maternal Marisel Galvan Medicine MD [address] [place] [address] 11/22/2020 Routine Visit OB Satellites Akinsipe, Sharonol a C, CNP [address] [place], [place] [address] [phone] 11/22/2020 Older Worker Specialist Visit Maternal Marisel Galvan Medicine MD [address] [place] [address] 11/29/2020 Older Worker Specialist Visit Maternal Marisel Galvan Medicine MD [address] [place] [address] 12/13/2020 Older Worker Specialist Visit Maternal Marisel Galvan Medicine MD [address] [place] [address] Health Maintenance Due Date Last Done [...] / Subscriber ID Effective Phone Address T [facility] Group Dates ASIA BETANCOURT [id number] 2018-Anupama [address] Medic [place] [id number] MA[place]ED MED[place] documented as of this encounter Advance Directives Type Date Recorded Patient Traffic Sign Supervisor Explanati on Advance Directives and Living Will Power of Electronics Specialist Name Relationship Healthcare Agent Relationship Co mmunication Floyd Brown Father Health Care Agent [phone] (Work) Preet Coffey Other Health Care Agent
--- NOTE | 2020-11-14 01:20 | ER ---
Nurse's Notes [facility] Name: Suraj Fuentes Age: 30 yrs Sex: Female : 1990 Arrival Date: 11/14/2020 Time: 00:41 Bed 6 Private MD: Diagnosis: related conditions, unspecified Presentation: 11/14 00:49 Chief complaint: Patient states: I haven't felt my baby move since about 11 am on jb4 Saturday, and I don't feel anymore. 00:49 Coronavirus screen: Client denies travel out of the [place] in the last 14 days. At this jb4 time, the client does not indicate any symptoms associated with coronavirus-19. Ebola Screen: No symptoms or risks identified at this time. Initial Sepsis Screen: Does the patient meet any 2 criteria? No. Patient's initial sepsis screen is negative. Does the patient have a suspected source of infection? No. Patient's initial sepsis screen is negative. Risk Assessment: Do you want to hurt yourself or someone else? Patient reports no desire to harm self or others. Onset of symptoms was November 12, 2020. Transition of care: patient was not received from another setting of care. 00:49 Method Of Arrival: Ambulatory jb4 00:49 Acuity: SHAW 3 jb4 PYTHON ARCHITECT: 00:49 LMP N/A - currently jb4 01:06 4, Full Term 3, Premature 0, 0, Living 3 mh7 Historical: - Allergies: 00:49 Demerol; jb4 00:49 Ibuprofen; jb4 00:49 ORANGES; jb4 - Home Meds: 00:49 None [Active]; jb4 - PMHx: 00:49 GALLSTONES; hyperemesis gravidarum; Pancreatitis; jb4 - PSHx: 00:49 Cholecystectomy; ; Appendectomy; jb4 - Immunization history:: Adult Immunizations up to date. - Social history:: Smoking status: Patient denies any tobacco usage or history of. Patient/guardian denies using alcohol, street drugs. Screenin:49 Abuse screen: Denies threats or abuse. Nutritional screening: No deficits noted. jb4 Tuberculosis screening: No symptoms or risk factors identified. Fall Risk None identified. Assessment: 00:49 General: Appears in no apparent distress. comfortable, Behavior is calm, cooperative, jb4 appropriate for age. Pain: Denies pain. Neuro: Level of Consciousness is awake, alert, obeys commands, Oriented to person, place, time, situation. Cardiovascular: Patient's skin is warm and dry. Respiratory: Airway is patent Respiratory effort is even, unlabored, Respiratory pattern is regular, symmetrical. GI: : No signs and/or symptoms were reported regarding the genitourinary system. EENT: Derm: Skin is intact, Skin is pink, warm \T\ dry. Musculoskeletal: Circulation, motion, and sensation intact. Range of motion:. Vital Signs: 00:49 BP 116 / 70; Pulse 88; Resp 16; Temp 98.3(O); Pulse Ox 100% on R/A; Weight 75.3 kg (R); jb4 Height 5 ft. 4 in. (162.56 cm) (R); Pain 0/10; 00:49 Body Mass Index 28.49 (75.30 kg, 162.56 cm) jb4 Vitals: 01:16 Heart Tones 152. jb4 ED Course: 00:41 Patient arrived in ED. am2 00:49 Patient has correct armband on for positive identification. Bed in low position. Call jb4 light in reach. Side rails up X 1. Pulse ox on. NIBP on. 00:50 Carl Urbano MD is Attending Physician. mh7 01:12 Floyd Cardenas, RN is Primary Nurse. jb4 01:14 Triage completed. jb4 01:16 Arm band placed on right wrist. jb4 01:17 No provider procedures requiring assistance completed. Patient did not have IV access jb4 during this emergency room visit. Administered Medications: No medications were administered Outcome: 01:19 Discharge ordered by . mh7 01:31 Discharged to home ambulatory, with family. dm5 01:31 Condition: stable 01:31 Discharge instructions given to patient, family, Instructed on discharge instructions, follow up and referral plans. medication usage, Demonstrated understanding of instructions, follow-up care, medications, Prescriptions given X 1. 01:31 Patient left the ED. dm5 Signatures: Gloria Palma RN RN dm5 Floyd Cardenas RN RN jb4 Sharlene Mello am2 Carl Urbano MD MD 7
--- NOTE | 2020-11-14 01:20 | EDPHYS ---
Physician Documentation [facility] [place] [place] Name: Suraj Fuentes Age: 30 yrs Sex: Female : 1990 Arrival Date: 11/14/2020 Time: 00:41 Bed 6 Private MD: ED Physician Carl Urbano HPI: 11/14 01:06 This 30 yrs old Female presents to ER via Unassigned with complaints of hasnt mh7 felt baby move. 01:06 The patient presents to the emergency department with no movement, last felt the mh7 baby move approximately 2 day(s) ago. The estimated gestational age is 19 weeks. course: care: private OB physician, Leakage of Fluid: none appreciated, Ultrasound: the patient had an ultrasound, which was normal, Risk/complications: no obvious risks or complications are appreciated. Previous pregnancies: in previous pregnancies patient has had vaginal delivery, . Associated signs and symptoms: Pertinent negatives: abdominal pain, chest pain, diarrhea, dysuria, fever, frequency, nausea, ruptured membranes, seizure, shortness of breath, vaginal bleeding, vaginal discharge, vomiting. 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 - Social history:: Smoking status: Patient denies any tobacco usage or history of. Patient/guardian denies using alcohol, street drugs. ROS: 01:06 Constitutional: Negative for fever, chills, and weight loss, Eyes: Negative for injury, mh7 pain, redness, and discharge, ENT: Negative for injury, pain, and discharge, Neck: Negative for injury, pain, and swelling, Cardiovascular: Negative for chest pain, palpitations, and edema, Respiratory: Negative for shortness of breath, cough, wheezing, and pleuritic chest pain, Abdomen/GI: Negative for abdominal pain, nausea, vomiting, diarrhea, and constipation, Back: Negative for injury and pain, : Negative for injury, bleeding, discharge, and swelling, MS/Extremity: Negative for injury and deformity, Skin: Negative for injury, rash, and discoloration, Neuro: Negative for headache, weakness, numbness, tingling, and seizure, Psych: Negative for depression, anxiety, suicide ideation, homicidal ideation, and hallucinations, Allergy/Immunology: Negative for hives, rash, and allergies, Endocrine: Negative for neck swelling, polydipsia, polyuria, polyphagia, and marked weight changes, Hematologic/Lymphatic: Negative for swollen nodes, abnormal bleeding, and unusual bruising. Exam: 01:06 Constitutional: This is a well developed, well nourished patient who is awake, alert, mh7 and in no acute distress. Head/Face: Normocephalic, atraumatic. Eyes: Pupils equal round and reactive to light, extra-ocular motions intact. Lids and lashes normal. Conjunctiva and sclera are non-icteric and not injected. Cornea within normal limits. Periorbital areas with no swelling, redness, or edema. Neck: Trachea midline, no thyromegaly or masses palpated, and no cervical lymphadenopathy. Supple, full range of motion without nuchal rigidity, or vertebral point tenderness. No Meningismus. Chest/axilla: Normal chest wall appearance and motion. Nontender with no deformity. No lesions are appreciated. Cardiovascular: Regular rate and rhythm with a normal S1 and S2. No gallops, murmurs, or rubs. Normal PMI, no JVD. No pulse deficits. Respiratory: Lungs have equal breath sounds bilaterally, clear to auscultation and percussion. No rales, rhonchi or wheezes noted. No increased work of breathing, no retractions or nasal flaring. Abdomen/GI: Soft, non-tender, with normal bowel sounds. No distension or tympany. No guarding or rebound. No evidence of tenderness throughout. Back: No spinal tenderness. No costovertebral tenderness. Full range of motion. 01:06 Skin: Warm, dry with normal turgor. Normal color with no rashes, no lesions, and no evidence of cellulitis. MS/ Extremity: Pulses equal, no cyanosis. Neurovascular intact. Full, normal range of motion. Neuro: Awake and alert, GCS 15, oriented to person, place, time, and situation. Cranial nerves II-XII grossly intact. Motor strength 5/5 in all extremities. Sensory grossly intact. Cerebellar exam normal. Normal gait. Psych: Awake, alert, with orientation to person, place and time. Behavior, mood, and affect are within normal limits. 01:06 : CVA tenderness, is absent, Gravid exam: Fundal height: consistent with gestational age, Bladder: is normal. 01:14 : Pelvic Exam: The exam is refused by the patient/guardian. The risks and mh7 consequences are understood by the patient. Vital Signs: 00:49 BP 116 / 70; Pulse 88; Resp 16; Temp 98.3(O); Pulse Ox 100% on R/A; Weight 75.3 kg (R); jb4 Height 5 ft. 4 in. (162.56 cm) (R); Pain 0/10; 00:49 Body Mass Index 28.49 (75.30 kg, 162.56 cm) jb4 MDM: 01:14 Differential diagnosis: Luis Alfredo rod, inevitable Ab, retained Ab, septic Ab, missed mh7 Ab. Data reviewed: vital signs, nurses notes. 01:15 Data interpreted: Pulse oximetry: on room air is 100 %. Interpretation: normal. mh7 Counseling: I had a detailed discussion with the patient and/or guardian regarding: the historical points, exam findings, and any diagnostic results supporting the discharge/admit diagnosis, the need for outpatient follow up, an OB/Gyne specialist, to return to the emergency department if symptoms worsen or persist or if there are any questions or concerns that arise at home. ED course: Heart Gieip=522 bpm. Well appearing, NAD, VSS, no focal neurological deficits.. 01:19 Patient medically screened. mh7 Administered Medications: No medications were administered Disposition: 11/14/20 01:19 Discharged to Home. Impression: related conditions, unspecified. - Condition is Stable. - Discharge Instructions: Second Trimester of , Urdo-rq-Rcvd. - Prescriptions for Zofran ODT 4 mg Oral tablet,disintegrating - place 1 tablet by TRANSLINGUAL route every 8 hours As needed; 10 tablet. - Medication Reconciliation Form, Thank You Letter, Antibiotic Education, Prescription Opioid Use form. - Follow up: Private Physician; When: 1 - 2 days; Reason: Worsening of condition, Recheck today's complaints, Continuance of care, Re-evaluation by your physician. - Problem is new. - Symptoms are resolved. Signatures: Gloria Palma, RN RN dm5 Floyd Cardenas RN RN jb4 Carl Urbano MD MD mh7 Corrections: (The following items were deleted from the chart) 01:17 01:14 Data interpreted: Pulse oximetry: on room air 7 7 01:31 01:19 11/14/2020 01:19 Discharged to Home. Impression: related conditions, dm5 unspecified. Condition is Stable. Forms are Medication Reconciliation Form, Thank You Letter, Antibiotic Education, Prescription Opioid Use. Follow up: Private Physician; When: 1 - 2 days; Reason: Worsening of condition, Recheck today's complaints, Continuance of care, Re-evaluation by your physician. Problem is new. Symptoms are resolved. mh7
== END 2020-11-14 01:31 | disposition home or self-care (01) ==
CPT/HCPCS: 99283

== ENCOUNTER 2020-11-19 11:07 | Emergency (ER) | payer MEDICAID ==
--- OUTSIDE RECORDS SUMMARY | 2020-11-19 11:10 | XMS REPORT | Continuity of Care Document ---
:1990 Author Organization [facility] t Address [address] [place]. [address] [place] [address] Care Team Providers Name Role Phone Jim Lauren WELLINGTON Attending Clinician Doctor Unassigned, Name Attending Clinician Unavailable Ultrasound Attending Clinician Unavailable Clarice Urbano Attending Clinician Problems This patient has no known problems. Allergies, Adverse Reactions, Alerts This patient has no known allergies or adverse reactions. Medications This patient has no known medications. Procedures This patient has no known procedures. Encounters Start End Encounter Admission Attending Care Care Encounter Source Date/Time Date/Time Type Type Clinicians Facility Department ID 2020-11-16 2020-11-16 Abstract Jim INJENY [id number] 00:00:00 00:00:00 Cornelius Aguilar MINISTER [id number] [facility] [id number] MATERNAL [id number] & CHILD [address] [place] [address] 2020-11-16 2020-11-16 Orders Doctor JAYCE [id number] 00:00:00 00:00:00 Only UnassSRAVAN christy [id number] [place] [facility] [id number] 2020-11-15 2020-11-15 Teacher Ballet Ultrasound, [facility] [id number] 12:45:58 13:35:09 Visit Ang-Mfm MINISTER [id number] REGIONAL [id number] MATERNAL [id number] & CHILD 369 [facility] 2020-11-15 2020-11-15 Case Jim [facility] [id number] 00:00:00 00:00:00 Management Roshunda R MINISTER [id number] REGIONAL [id number] MATERNAL [id number] & CHILD 107 [facility] 2020-11-11 2020-11-11 Telephone Jim [facility] [id number] 00:00:00 00:00:00 Roshunda R MINISTER [id number] REGIONAL [id number] MATERNAL [id number] & CHILD 107 [facility] 2020-11-10 2020-11-10 [place] Jim [facility] [id number] 00:00:00 00:00:00 Roshunda R MINISTER [id number] REGIONAL [id number] MATERNAL [id number] & CHILD 107 [facility] 2020-11-09 2020-11-09 [facility] [place] Jim [facility] [id number] 00:00:00 00:00:00 Roshunda R MINISTER [id number] REGIONAL [id number] MATERNAL [id number] & CHILD 107 [facility] 2020-11-08 2020-11-08 Teacher Ballet Maria Ines, [facility] [id number] 14:59:47 15:29:47 Visit Ang-Mfm MINISTER [id number] REGIONAL [id number] MATERNAL [id number] & CHILD 369 [facility] 2020-11-08 2020-11-08 Telephone Vitaliy [facility] [id number] 00:00:00 00:00:00 Graciela C MINISTER [id number] REGIONAL [id number] MATERNAL [id number] & CHILD 107 [facility] 2020-11-03 2020-11-03 Telephone Jim INJENY [id number] 00:00:00 00:00:00 Roshunda R MINISTER [id number] REGIONAL [id number] MATERNAL [id number] & CHILD 107 [facility] 2020-11-01 2020-11-01 Abstract Jim [facility] [id number] 00:00:00 00:00:00 Roshunda R MINISTER [id number] REGIONAL [id number] MATERNAL [id number] & CHILD 107 [facility] 2020-11-01 2020-11-01 Abstract Jim [facility] [id number] 00:00:00 00:00:00 Roshunda R MINISTER [id number] REGIONAL [id number] MATERNAL [id number] & CHILD 107 [facility] 2020-11-01 2020-11-01 [place] Jim [facility] [id number] 00:00:00 00:00:00 Roshunda R MINISTER [id number] REGIONAL [id number] MATERNAL [id number] & CHILD 107 [facility] 2020-10-31 2020-10-31 Teacher Ballet Ultrasound, [facility] [id number] 15:24:37 15:54:37 Visit Seth-Mftam MINISTER [id number] REGIONAL [id number] MATERNAL [id number] & CHILD 369 [facility] Results This patient has no known results.
--- OUTSIDE RECORDS SUMMARY | 2020-11-19 11:25 | XMS REPORT | Summary of Care ---
:1990 Author Organization [facility] Address [address] [place] [address] Care Team Providers Name Role Phone Gamal Saravia Insurance Hmo Lauren Fernandez Primary Care Provider Reason for Visit Reason Comments Rx Concern/Question nara not approved need to discuss Encounter Details Date Type Department Care Team Description 11/08/2020 Telephone [facility]- Graciela Burks Rx Concern/Question BELLA Mcfarland (nara not approved [address] need to discuss) [facility] [place] [phone] Allergies Active Allergy Reactions Severity Noted Date Comments Ibuprofen Hives 04/15/2014 [place] Hives 04/15/2014 Sodium Citrate (Bulk) Nausea and/or Vomiting 9 documented as of this encounter (statuses as of 11/14/2020) Medications Medication Sig Dispensed Refills Start Date End Date Status vit Take 1 Packet by 30 Each 6 08/03/2020 Active 18-oqkv-ewnzu-dha mouth daily. (SELECT-OB + DHA) 29 mg [...] as of this encounter (statuses as of 11/14/2020) Active Problems Problem Noted Date History of delivery 10/24/2020 History of cholecystectomy 10/24/2020 Cholelithiasis affecting in second trimester , antepartum 10/12/2020 Gallstones 10/11/2020 Overview: Added automatically from request for brea weiss [id number] Nausea & vomiting 09/10/2020 9 weeks gestation [...] Obesity in 01/25/2015 Overview: ICD10 Diagnosis Term Global Logistics Analyst Utility Encounter for IUD removal and reinsertion 01/18/2015 ASCUS on Pap smear 04/15/2014 Estimated Date of Delivery Comments Yes 04/11/2021 Based on Ultrasound, FHT: 127, Transverse Presentation, Placen ta Too early to evaulate documented as of this encounter (statuses as of 11/14/2020) Resolved Problems Problem Noted Date Resolved Date 37 weeks gestation of 12/18/2018 01/08/20 19 [place] Hick's contraction 12/12/2018 01/08/2019 Abnormal maternal glucose [...] management 01/25/2015 05/20/2018 Overview: ICD10 Diagnosis Term Global Logistics Analyst Utility Breast tenderness in female 01/25/2015 05/20/2018 Not immune to rubella 04/16/2014 06/04/2016 Overview: ICD10 Diagnosis Term Global Logistics Analyst Utility documented as of this encounter (statuses as of 11/14/2020) Immunizations Name Administration Dates Next Due HPV9 [...] with No / Unsure 10/24/2020 1:41 PM DIESEL TRACTOR ENGINE MECHANIC someone who was confirmed or suspected to have Coronavirus / COVID-19? documented as of this encounter Last Filed Vital Signs Not on filedocumented in this encounter Miscellaneous Notes Telephone Encounter - Roselyn Moore, RN - 11/14/2020 10:44 AM CSTPre-auth resubmitted with Nara name brand injection on 11/11/2020. Will await for approval. EL TRACTOR ENGINE MECHANIC Telephone Encounter - Leyla Sapp - 11/08/2020 9:23 AM CSTCommunity RX says nara is still not approved wants to discuss documented in this encounter Plan of Treatment Date Type Specialty Care Team Description 11/15/2020 Resident Care Assistant Visit Maternal Marisel Galvan, Medicine [address] [place], [place] [address] 11/22/2020 Routine Visit OB Satellites Flora Burks, WHCNP [address] [place], [place] [address] [phone] 11/22/2020 Resident Care Assistant Visit Maternal Marisel Galvan Medicine [address] [place], [place] [address] 11/29/2020 Resident Care Assistant Visit Maternal Marisel Galvan Medicine MD [address] [place], [place] [address] 12/13/2020 Resident Care Assistant Visit Maternal Marisel Galvan Medicine MD [address] [place], [place] [address] Health Maintenance Due Date [...] Plan / Subscriber ID Effective Phone Address [facility] Dates ASIA DIOPINA [id number] 2018-Anupama HIDALGO Medic [place] [id number] MA[place]ED MEDICA[place] documented as of this encounter Advance Directives Type Date Recorded Patient Electric Motor And Generator Assembler Explanati on Advance Directives and Living Will Power of Floatlight Powder Mixer Name Relationship Healthcare Agent Relationship Co mmunication Floyd Holloway Health Care Agent 00 (Work) Preet Coffey Other Health Care Agent 00 (Work)
--- OUTSIDE RECORDS SUMMARY | 2020-11-19 11:26 | XMS REPORT | Summary of Care ---
:1990 Author Organization [place] Address [address] [place] [address] Care Team Providers Name Role Phone Manjit E Insurance Hmo Lauren Fernandez [facility] Primary Care Provider Reason for Visit Reason Comments Rx Concern/Question Encounter Details Date Type Department Care Team Description 11/11/2020 Telephone [facility]- Cornelius Fernandez, Rx Concern/Question [facility] 110[address] [facility] [address] [place] [address] [place] [address] Allergies Active Allergy Reactions Severity Noted Date Comments Ibuprofen Hives 04/15/2014 [place] Hives 04/15/2014 Sodium Citrate (Bulk) Nausea and/or Vomiting 9 documented as of this encounter (statuses as of 11/14/2020) Medications Medication Sig Dispensed Refills Start Date End Date Status vit Take 1 Packet by 30 Each 6 08/03/2020 Active 13-qedz-vispc-dha mouth daily. (SELECT-OB + DHA) 29 mg [...] Added automatically from request for brea weiss [id number] Nausea & vomiting 09/10/2020 9 weeks gestation [...] Obesity in 01/25/2015 Overview: ICD10 Diagnosis Term Speech Assistant Utility Encounter for IUD removal and [...] management 01/25/2015 05/20/2018 Overview: ICD10 Diagnosis Term Speech Assistant Utility Breast tenderness in female 01/25/2015 05/20/2018 Not immune to rubella 04/16/2014 06/04/2016 Overview: ICD10 Diagnosis Term Speech Assistant Utility documented as of this encounter [...] with No / Unsure 10/24/2020 1:41 PM CLIENT SALES AND SERVICE OFFICER someone who was confirmed or suspected to have Coronavirus / COVID-19? documented as of this encounter Last Filed Vital Signs Not on filedocumented in this encounter Miscellaneous Notes Telephone Encounter - Alfreda Vaughn LVN - 11/14/2020 4:08 PM Chana Mabry Gina is a 30 year old female Patient stated she wanted a prescription of Zofran. Informed patient Zofran was not prescribed in and to call pharmacy for refills for Diclegis, verbalized understanding. elephone Encounter - Ariella Paula - 11/14/2020 3:35 PM Chana Mabry Gina is a 30 year old female is returning the call from the nurse. Please callback. Thank you. elephone Encounter - Alfreda Vaughn LVN - 11/14/2020 2:54 PM Chana Mabry Gina is a 30 year old female 2nd attempt to call patient, no answer, left vm. elephone Encounter - Alfreda Vaughn LVN - 11/14/2020 9:40 AM CSTMorismiee Luly Fuentes is a 30 year old female Attempted to call patient, no answer, left vm. elephone Encounter - APPLE Rangel - 11/11/2020 2:39 PM CSTPt is requesting prescription for dissolvable zofran called in. [id number] [place], [place] - [address] [address] documented in this encounter Plan of Treatment Date Type Specialty Care Team Description 11/15/2020 Human Services Program Specialist Visit Maternal Marisel Galvan Medicine MD [address] [place] [address] 11/22/2020 Routine Visit OB Satellites Akinsipe, Damilol a C, [facility] [address] [place], [place] [address] [phone] 11/22/2020 Human Services Program Specialist Visit Maternal Marisel Galvan Medicine MD [address] [place] [address] 11/29/2020 Human Services Program Specialist Visit Maternal Marisel Galvan Medicine MD [address] [place] [address] 12/13/2020 Human Services Program Specialist Visit Maternal Marisel Galvan Medicine MD [address] [place] [address] Health Maintenance Due Date Last [...] [facility] Dates ASIA BETANCOURT [id number] 2018-Anupama HIDALGO Medic [facility] [place] [id number] MANAGED MEDICAID [place] documented as of this encounter Advance Directives Type Date Recorded Patient Migratory Game Bird Biologist Explanati on Advance Directives and Living Will Power of Dental Technician Metal Name Relationship Healthcare Agent Relationship Co mmunication Floyd Holloway Health Care Agent 00 (Work)[phone] (Mobile) Preet Coffey Other Health Care Agent - 00 (Work)[phone] (Mobile)
--- OUTSIDE RECORDS SUMMARY | 2020-11-19 11:26 | XMS REPORT | Summary of Care ---
:1990 Author Organization [facility] Address [address] [place] [address] Care Team Providers Name Role Phone Manjit Gamal Insurance Hmo Lauren Fernandez Primary Care Provider Reason for Visit Reason Comments ULTRASOUND (Routine) Status Reason Specialty Diagnoses / Referred By Referred To Procedures Contact Contact Closed Maternal Diagnoses Supervision of high risk in first trimester Cornelius Fernandez Medicine Procedures CONSULT MATERNAL MEDICINE ULTRASOUND Preferred Location: [facility] [address] [place] [address] Encounter Details Date Type Department Care Team Description 11/15/2020 [facility] [address] [facility] [id number] [place], [place] [id number] Supervision of high risk in se cond trimester; Ultrasound- Matthew Newton MD [address] [facility] [id number] [place], [place] [id number] Supervision of with history of pre-term labor in second trimester; [address] [place] [address] Encounter for scre ening for malformation using ultrasound; [place] Encounter for a ntenatal screening for cervical length [phone] Allergies Active Allergy Reactions Severity Noted Date Comments Ibuprofen Hives 04/15/2014 [place] Hives 04/15/2014 Sodium Citrate (Bulk) Nausea and/or Vomiting 9 documented as of this encounter (statuses as of 11/15/2020) Medications Medication Sig Dispensed Refills Start Date End Date Status vit Take 1 Packet by 30 Each 6 08/03/2020 Active 27-wskc-nzhyx-dha mouth daily. (SELECT-OB + DHA) 29 mg [...] as of this encounter (statuses as of 11/15/2020) Active Problems Problem Noted Date History of delivery 10/24/2020 History of cholecystectomy 10/24/2020 Cholelithiasis affecting in second trimester , antepartum 10/12/2020 Gallstones 10/11/2020 Overview: Added automatically from request for brea isela [id number] Nausea & vomiting 09/10/2020 9 weeks gestation [...] Obesity in 01/25/2015 Overview: ICD10 Diagnosis Term Adolescent Psychiatrist Utility Encounter for IUD removal and reinsertion 01/18/2015 ASCUS on Pap smear 04/15/2014 Estimated Date of Delivery Comments Yes 04/11/2021 Based on Ultrasound, FHT: 127, Transverse Presentation, Placen ta Too early to evaulate documented as of this encounter (statuses as of 11/15/2020) Resolved Problems Problem Noted Date Resolved Date 37 weeks gestation of 12/18/2018 01/08/20 19 [place] Hick's contraction 12/12/2018 01/08/2019 Abnormal maternal glucose [...] management 01/25/2015 05/20/2018 Overview: ICD10 Diagnosis Term Adolescent Psychiatrist Utility Breast tenderness in female 01/25/2015 05/20/2018 Not immune to rubella 04/16/2014 06/04/2016 Overview: ICD10 Diagnosis Term Adolescent Psychiatrist Utility documented as of this encounter (statuses as of 11/15/2020) Immunizations Name Administration Dates Next Due HPV9 [...] been in contact with No / Unsure 11/15/2020 12:27 PM MANAGEMENT ACCOUNTANT someone who was confirmed or suspected to have Coronavirus / COVID-19? documented as of this encounter Last Filed Vital Signs Not on filedocumented in this encounter Plan of Treatment Date Type Specialty Care Team Description 11/22/2020 Routine Visit OB Satellites Flora Burks, WHCNP [address] [place], [place] [address] [phone] 11/22/2020 Texture Artist Visit Maternal Marisel Galvan, Medicine [address] [place] [address] 11/29/2020 Texture Artist Visit Maternal Marisel Galvan Medicine [address] [place], [place] [address] 12/13/2020 Texture Artist Visit Maternal Marisel Galvan Medicine MD [address] [place], [place] [address] Health Maintenance Due Date [...] second trimester with history of pre-term labor Encounter for screening for ma lformation using ultrasound Encounter for screening for ce rvical length documented in this encounter Insurance Payer Benefit Plan / Subscriber ID Effective Phone Address T ype Group Dates ASIA BETANCOURT [id number] 2018-Anupama Camacho [address] Medic [place] [id number] MA[place]ED MEDICA[place] documented as of this encounter Advance Directives Type Date Recorded Patient Pastry Supervisor Explanati on Advance Directives and Living Will Power of Multisensor Intelligence Officer Name Relationship Healthcare Agent Relationship Co mmunication Floyd Holloway Health Care Agent (Work) Preet Coffey Other Health Care Agent (Work)
--- OUTSIDE RECORDS SUMMARY | 2020-11-19 11:26 | XMS REPORT | Summary of Care ---
:[address] [facility] Address [address] [place] [address] Care Team Providers Name Role Phone Manjit Gamal Insurance Hmo Lauren Fernandez Primary Care Provider Reason for Referral (Routine) Status Reason Specialty Diagnoses / Referred By Referred To Procedures Contact Contact New Request Maternal Diagnoses Supervision of high risk in first trimester Cornelius Fernandez Medicine Procedures CONSULT MATERNAL MEDICINE ULTRASOUND Preferred Location: [facility] [address] [place] [address] Reason for Visit Reason Comments Orders Encounter Details Date Type Department Care Team Description 11/15/2020 [facility], Orders [facility] 110[address] [facility] [address] [place] [address] [place] [address] [phone] Allergies Active Allergy Reactions Severity Noted Date Comments Ibuprofen Hives 04/15/2014 [place] Hives 04/15/2014 Sodium Citrate (Bulk) Nausea and/or Vomiting 9 documented as of this encounter (statuses as of 11/15/2020) Medications Medication Sig Dispensed Refills Start Date End Date Status vit Take 1 Packet by 30 Each 6 08/03/2020 Active 06-bpnw-osbcw-dha mouth daily. (SELECT-OB + DHA) 29 mg [...] Added automatically from request for brea isela [id number] Nausea & vomiting 09/10/2020 9 weeks gestation [...] Obesity in 01/25/2015 Overview: ICD10 Diagnosis Term Nursing Attendant Utility Encounter for IUD removal and reinsertion 01/18/2015 ASCUS on Pap smear 04/15/2014 Estimated Date of Delivery Comments Yes 04/11/2021 Based on Ultrasound, FHT: 127, Transverse Presentation, Placen ta Too early to evaulate documented as of this encounter (statuses as of 11/15/2020) Resolved Problems Problem Noted Date Resolved Date 37 weeks gestation of 12/18/2018 01/08/20 19 [place] Hick's contraction 12/12/2018 01/08/2019 Abnormal maternal glucose [...] management 01/25/2015 05/20/2018 Overview: ICD10 Diagnosis Term Nursing Attendant Utility Breast tenderness in female 01/25/2015 05/20/2018 Not immune to rubella 04/16/2014 06/04/2016 Overview: ICD10 Diagnosis Term Nursing Attendant Utility documented as of this encounter [...] with No / Unsure 11/15/2020 12:27 PM LADLE FILLER someone who was confirmed or suspected to have Coronavirus / COVID-19? documented as of this encounter Last Filed Vital Signs Not on filedocumented in this encounter Progress Notes Cornelius Fernandez FNP - 11/15/2020 1:18 PM CSTUSG orders documented in this encounter Plan of Treatment Date Type Specialty Care Team Description 11/22/2020 Routine Visit OB Satellites Flora Burks, WHCNP [address] [place], [place] [address] [phone] 11/22/2020 Flight Engineer Inspector Visit Maternal Marisel Galvan, Medicine [address] [place], [place] [address] 11/29/2020 Flight Engineer Inspector Visit Maternal Marisel Galvan, Medicine [address] [place], [place] [address] 12/13/2020 Flight Engineer Inspector Visit Maternal Marisel Galvan, Medicine [address] [place], [place] [address] Health Maintenance Due Date [...] in rst trimester - Primary Unspecified high-risk documented in this encounter Insurance Payer Benefit Plan / Subscriber ID Effective Phone Address [facility] Dates ASIA DIOPINA [id number] 2018-Anupama Camacho [address] Medic [place] [id number] MA[place]ED MEDICA[place] documented as of this encounter Advance Directives Type Date Recorded Patient Graphic Coordinator Explanati on Advance Directives and Living Will Power of Transportation Broker Name Relationship Healthcare Agent Relationship Co mmunication Floyd Brown Father Health Care Agent 00 (Work) Preet Coffey Other Health Care Agent 00 (Work)
--- OUTSIDE RECORDS SUMMARY | 2020-11-19 11:26 | XMS REPORT | Summary of Care ---
:1990 Author Organization [facility] Address [address] [place] [address] Care Team Providers Name Role Phone Manjit E Insurance Hmo Lauren Fernandez [facility] Primary Care Provider Reason for Visit Reason Comments Rx Concern/Question Encounter Details Date Type Department Care Team Description 11/10/2020 Telephone [facility]- Cornelius Fernandez, Rx Concern/Question [facility] [address] [facility] [address] [place] [address] [place] [address] Allergies Active Allergy Reactions Severity Noted Date Comments Ibuprofen Hives 04/15/2014 [place] Hives 04/15/2014 Sodium Citrate (Bulk) Nausea and/or Vomiting 9 documented as of this encounter (statuses as of 11/15/2020) Medications Medication Sig Dispensed Refills Start Date End Date Status vit Take 1 Packet by 30 Each 6 08/03/2020 Active 51-xtsg-qtabz-dha mouth daily. (SELECT-OB + DHA) 29 mg [...] Added automatically from request for brea weiss [id number] Nausea & vomiting 09/10/2020 9 weeks gestation [...] Obesity in 01/25/2015 Overview: ICD10 Diagnosis Term Air Pollution Inspector Utility Encounter for IUD removal and [...] management 01/25/2015 05/20/2018 Overview: ICD10 Diagnosis Term Air Pollution Inspector Utility Breast tenderness in female 01/25/2015 05/20/2018 Not immune to rubella 04/16/2014 06/04/2016 Overview: ICD10 Diagnosis Term Air Pollution Inspector Utility documented as of this encounter [...] with No / Unsure 11/15/2020 12:27 PM BENCH WORKER HELPER someone who was confirmed or suspected to have Coronavirus / COVID-19? documented as of this encounter Last Filed Vital Signs Not on filedocumented in this encounter Miscellaneous Notes Telephone Encounter - Alfreda Vaughn LVN - 11/15/2020 1:25 PM CSTmakena prescription faxed over to [facility]. elephone Encounter - [place] - 11/10/2020 9:21 AM CSTMol[place] medicaid calling regarding prescription denial. H WORKER HELPER documented in this encounter Plan of Treatment Date Type Specialty Care Team Description 11/22/2020 Routine Visit OB Satellites Flora Burks, CNP [address] [place], [place] [address] [phone] 11/22/2020 Knife Setter Visit Maternal Marisel Galvan Medicine [address] [place] [address] 11/29/2020 Knife Setter Visit Maternal Marisel Galvan Medicine MD [address] [place] [address] 12/13/2020 Knife Setter Visit Maternal Marisel Galvan, Medicine [address] [place] [address] Health Maintenance Due Date Last Done [...] / Subscriber ID Effective Phone Address T [facility] Group Dates ASIA BETANCOURT [id number] 2018-Anupama HIDALGO Medic [place] [id number] MA[place]ED MEDICA[place] documented as of this encounter Advance Directives Type Date Recorded Patient Parts Inspector Explanati on Advance Directives and Living Will Power of Insurance Inspector Name Relationship Healthcare Agent Relationship Co mmunication Floyd Brown Father Health Care Agent 00 (Work) Preet Coffey Other Health Care Agent - 00 (Work)
--- OUTSIDE RECORDS SUMMARY | 2020-11-19 11:27 | XMS REPORT | Summary of Care ---
:[address] [facility] Address [address] [place] [address] Care Team Providers Name Role Phone Saravia Gamal Insurance Hmo Lauren Fernandez Primary Care Provider Encounter Details Date Type Department Care Team Description 11/16/2020 Abstract [facility]- A Cornelius Allen, CONVERTER SUPERVISOR [address] [facility] [address] [place] [address] [address] [place] [address] [phone] Allergies Active Allergy Reactions Severity Noted Date Comments Ibuprofen Hives 04/15/2014 [place] Hives 04/15/2014 Sodium Citrate (Bulk) Nausea and/or Vomiting 9 documented as of this encounter (statuses as of 11/16/2020) Medications Medication Sig Dispensed Refills Start Date End Date Status vit Take 1 Packet by 30 Each 6 08/03/2020 Active 80-ddpv-jrrkz-dha mouth daily. (SELECT-OB + DHA) 29 mg [...] as of this encounter (statuses as of 11/16/2020) Active Problems Problem Noted Date History of delivery 10/24/2020 History of cholecystectomy 10/24/2020 Cholelithiasis affecting in second trimester , antepartum 10/12/2020 Gallstones 10/11/2020 Overview: Added automatically from request for brea isela [id number] Nausea & vomiting 09/10/2020 9 weeks gestation [...] Obesity in 01/25/2015 Overview: ICD10 Diagnosis Term Media Developer Utility Encounter for IUD removal and reinsertion 01/18/2015 ASCUS on Pap smear 04/15/2014 Estimated Date of Delivery Comments Yes 04/11/2021 Based on Ultrasound, FHT: 127, Transverse Presentation, Placen ta Too early to evaulate documented as of this encounter (statuses as of 11/16/2020) Resolved Problems Problem Noted Date Resolved Date 37 weeks gestation of 12/18/2018 01/08/20 19 [place] Hick's contraction 12/12/2018 01/08/2019 Abnormal maternal glucose [...] management 01/25/2015 05/20/2018 Overview: ICD10 Diagnosis Term Media Developer Utility Breast tenderness in female 01/25/2015 05/20/2018 Not immune to rubella 04/16/2014 06/04/2016 Overview: ICD10 Diagnosis Term Media Developer Utility documented as of this encounter (statuses as of 11/16/2020) Immunizations Name Administration Dates Next Due HPV9 [...] with No / Unsure 11/15/2020 12:27 PM CABLE SPOOLER someone who was confirmed or suspected to have Coronavirus / COVID-19? documented as of this encounter Last Filed Vital Signs Not on filedocumented in this encounter Plan of Treatment Date Type Specialty Care Team Description 11/22/2020 Routine Visit OB Satellites Flora Burks, WHCNP [address] [place], [place] [address] [phone] 11/22/2020 Electronic Data Processing Auditor Visit Maternal Marisel Galvan Medicine MD [address] [place] [address] 11/29/2020 Electronic Data Processing Auditor Visit Maternal Marisel Galvan Medicine MD [address] [place], [place] [address] 12/13/2020 Electronic Data Processing Auditor Visit Maternal Marisel Galvan Medicine MD [address] [place], [place] [address] Health Maintenance Due Date [...] / Subscriber ID Effective Phone Address T [facility] Group Dates ASIA BETANCOURT [id number] 2018-Anupama HIDALGO Medic [facility] [address] MANAGED MEDICAID [place] documented as of this encounter Advance Directives Type Date Recorded Patient Curriculum Advisory Teacher Explanati on Advance Directives and Living Will Power of Epoxy Coatings Installer Name Relationship Healthcare Agent Relationship Co mmunication Floyd Holloway Health Care Agent 00 (Work) Preet Coffey Other Health Care Agent 000- [phone] (Work)[phone] (Mobile)
--- OUTSIDE RECORDS SUMMARY | 2020-11-19 11:27 | XMS REPORT | Summary of Care ---
:1990 Author Organization [facility] - Health Address [address] [place] [address] Care Team Providers Name Role Phone Manjit E Insurance Hmo Lauren Fernandez Primary Care Provider Encounter Details Date Type Department Care Team Description 11/16/2020 Orders Only [facility] Doctor Unassigned, No [address] [facility] [place] [address] [address] [place] [address] Allergies Active Allergy Reactions Severity Noted Date Comments Ibuprofen Hives 04/15/2014 [place] Hives 04/15/2014 Sodium Citrate (Bulk) Nausea and/or Vomiting 9 documented as of this encounter (statuses as of 11/16/2020) Medications Medication Sig Dispensed Refills Start Date End Date Status vit Take 1 Packet by 30 Each 6 08/03/2020 Active 97-ifzz-yelhu-dha mouth daily. 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 Solutions Teammate Utility Encounter for IUD removal and reinsertion 01/18/2015 ASCUS on Pap smear 04/15/2014 Estimated Date of Delivery Comments Yes 04/11/2021 Based on Ultrasound, FHT: 127, Transverse Presentation, Placen ta Too early to evaulate documented as of this encounter (statuses as of 11/16/2020) Resolved Problems Problem Noted Date Resolved Date 37 weeks gestation of 12/18/2018 01/08/20 19 [place] Hick's contraction 12/12/2018 01/08/2019 Abnormal maternal glucose [...] management 01/25/2015 05/20/2018 Overview: ICD10 Diagnosis Term Customer Solutions Teammate Utility Breast tenderness in female 01/25/2015 05/20/2018 Not immune to rubella 04/16/2014 06/04/2016 Overview: ICD10 Diagnosis Term Customer Solutions Teammate Utility documented as of this encounter (statuses [...] with No / Unsure 11/15/2020 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 documented as of this encounter Last Filed Vital Signs Not on filedocumented in this encounter Plan of Treatment Date Type Specialty Care Team Description 11/22/2020 Routine Visit OB Satellites [facility] Bur[facility] [address] [place], [place] [address] [phone] 11/22/2020 Select Banker Visit Maternal Marisel Galvan Medicine MD [address] [place] [address] 11/29/2020 Select Banker Visit Maternal Marisel Galvan Medicine MD [address] [place] [address] 12/13/2020 Select Banker Visit Maternal Marisel Galvan Medicine [address] [place] [address] Health Maintenance Due Date Last [...] Associated Diagnosis Comme nts MEDICATION CORRESPONDENCE Routine 11/16/2020 12:01 AM POCKET CREASER documented in this encounter Results Not on filedocumented in this encounter Insurance Payer Benefit Plan / Subscriber ID Effective Phone Address T [facility] Group Dates ASIA BETANCOURT [id number] 2018-Anupama Camacho [address] [place] [facility] [place] [id number] [place] documented as of this encounter Advance Directives Type Date Recorded Patient Top Installer Explanati on Advance Directives and Living Will Power of Medical Support Specialist Name Relationship Healthcare Agent Relationship Co mmunication Floyd Holloway Health Care Agent 00 (Work)[phone] (Mobile) Preet Coffey Other Health Care Agent 000- [phone] (Work)
[2020-11-19] MEDS ORDERED: NA CHLORIDE 0.9% 1,000 ML ONE (14:05)
[2020-11-19] MEDS ORDERED: DIPHENHYDRAMINE 50 MG/ML VIAL ONE (14:05)
[2020-11-19] MEDS ORDERED: PROMETHAZINE INJ 25 MG/ML AMP ONE (14:05)
[2020-11-19] MEDS ORDERED: NA CHLORIDE 0.9% 500 ML ONE (14:05)
--- NOTE | 2020-11-19 15:18 | EDPHYS ---
Physician Documentation [facility] Name: Suraj Fuentes Age: 30 yrs Sex: Female : 1990 Arrival Date: 11/19/2020 Time: 11:27 Bed 15 Private MD: ED Physician Pancho Greene HPI: 11/19 15:14 This 30 yrs old Female presents to ER via Wheelchair with complaints of jmm Nausea/Vomiting. 15:14 The patient presents to the emergency department with nausea, vomiting. Onset: The jmm symptoms/episode began/occurred today. Possible causes: . The symptoms are aggravated by nothing. The symptoms are alleviated by nothing. Associated signs and symptoms: Pertinent positives: vomiting. The patient has experienced similar episodes in the past, several times. Patient states she is out of her zofran. . 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 - Social history:: Smoking status: Patient denies any tobacco usage or history of. ROS: 15:14 Constitutional: Negative for fever, chills, and weight loss, Cardiovascular: Negative jmm for chest pain, palpitations, and edema, Respiratory: Negative for shortness of breath, cough, wheezing, and pleuritic chest pain. 15:14 Abdomen/GI: Positive for vomiting. 15:14 All other systems are negative. Exam: 15:14 Constitutional: This is a well developed, well nourished patient who is awake, alert, jmm and in no acute distress. Head/Face: atraumatic. Eyes: EOMI, no conjunctival erythema appreciated ENT: Moist Mucus Membranes Neck: Trachea midline, Supple Chest/axilla: Normal chest wall appearance and motion. Cardiovascular: Regular rate and rhythm. No edema appreciated Respiratory: Normal respirations, no respiratory distress appreciated Abdomen/GI: Non distended, soft Back: Normal ROM Skin: General appearance color normal MS/ Extremity: Moves all extremities, no obvious deformities appreciated, no edema noted to the lower extremities Neuro: Awake and alert, normal gait Psych: Behavior is normal, Mood is normal, Patient is cooperative and pleasant Vital Signs: 12:01 BP 133 / 91; Pulse 88; Resp 18 S; Temp 98.0(TE); Pulse Ox 98% on R/A; aa5 14:18 BP 126 / 83; Pulse 81; Resp 16 S; Pulse Ox 99% on R/A; ca1 15:30 BP 128 / 79; Pulse 86; Resp 16 S; Pulse Ox 100% on R/A; ca1 MDM: 13:33 Patient medically screened. jessica 15:15 Data reviewed: vital signs, EMS record. Counseling: I had a detailed discussion with yang the patient and/or guardian regarding: the historical points, exam findings, and any diagnostic results supporting the discharge/admit diagnosis, the need for outpatient follow up, to return to the emergency department if symptoms worsen or persist or if there are any questions or concerns that arise at home. ED course: Patient is alert and non toxic in appearance in the ED. No signs of resp distress. No vaginal bleeding. Patient is able to follow up with pcp and otherwise given strict return precautions. Patient/ understood and agrees with the plan of care. . Administered Medications: 13:50 Not Given (Duplicate Order): NS 0.9% 1000 ml IV at 1 bolus Per protocol; 1000 mL bolus [facility] 14:01 Drug: NS 0.9% 500 ml Route: IV; Rate: bolus; Site: left hand; ca1 14:40 Follow up: Response: No adverse reaction; IV Status: Completed infusion; IV Intake: ca1 500ml 14:02 Drug: diphenhydrAMINE 50 mg Route: IVP; Site: left hand; ca1 15:44 Follow up: Response: No adverse reaction; Marked relief of symptoms ca1 14:04 Drug: Promethazine 12.5 mg Route: IVP; Site: left hand; ca1 15:10 Follow up: Response: No adverse reaction; Nausea unchanged ca1 15:17 Drug: Zofran (Ondansetron) 4 mg Route: IVP; Site: left hand; ca1 15:45 Follow up: Response: No adverse reaction; Nausea is decreased ca1 Disposition: 11/20 08:19 Co-signature as Attending Physician, Pancho Greene MD I agree with the assessment and [facility] plan of care. Disposition: 11/19/20 15:18 Discharged to Home. Impression: Vomiting. - Condition is Stable. - Discharge Instructions: Nausea and Vomiting, Adult. - Prescriptions for Zofran ODT 4 mg Oral tablet,disintegrating - place 1 tablet by TRANSLINGUAL route every 4-6 hours; 30 tablet. - Medication Reconciliation Form, Thank You Letter, Antibiotic Education, Prescription Opioid Use form. - Follow up: Private Physician; When: As needed; Reason: Recheck today's complaints, Continuance of care, Re-evaluation by your physician. Signatures: Pancho Greene MD MD cha Mickail, Joel, PA PA jmm Calderon, Audri, RN RN aa5 Mora Duenas RN RN ca1 Corrections: (The following items were deleted from the chart) 11/19 15:52 15:18 11/19/2020 15:18 Discharged to Home. Impression: Vomiting. Condition is Stable. ca1 Forms are Medication Reconciliation Form, Thank You Letter, Antibiotic Education, Prescription Opioid Use. Follow up: Private Physician; When: As needed; Reason: Recheck today's complaints, Continuance of care, Re-evaluation by your physician. yang
--- NOTE | 2020-11-19 15:18 | ER ---
Nurse's Notes [facility] Name: Suraj Fuentes Age: 30 yrs Sex: Female : 1990 Arrival Date: 11/19/2020 Time: 11:27 Bed 15 Private MD: Diagnosis: Vomiting Presentation: 11/19 11:59 Chief complaint: Patient states: nausea and vomiting since 0700 today. Pt reports she aa5 ran out of Zofran. Pt reports being 19 weeks . Coronavirus screen: vomiting. Ebola Screen: Patient negative for fever greater than or equal to 101.5 degrees Fahrenheit, and additional compatible Ebola Virus Disease symptoms. Initial Sepsis Screen: Does the patient meet any 2 criteria? No. Patient's initial sepsis screen is negative. Does the patient have a suspected source of infection? No. Patient's initial sepsis screen is negative. Risk Assessment: Do you want to hurt yourself or someone else? Patient reports no desire to harm self or others. Onset of symptoms was November 19, 2020. 11:59 Method Of Arrival: Wheelchair aa5 11:59 Acuity: SHAW 3 aa5 Triage Assessment: 14:17 GI: Reports. 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 - Social history:: Smoking status: Patient denies any tobacco usage or history of. Screenin:40 Abuse screen: Denies threats or abuse. Denies injuries from another. Nutritional ca1 screening: No deficits noted. Tuberculosis screening: No symptoms or risk factors identified. Fall Risk IV access (20 points). Assessment: 13:40 General: Appears in no apparent distress. uncomfortable, Behavior is calm, cooperative, ca1 appropriate for age. Pain: Denies pain. Neuro: Level of Consciousness is awake, alert, obeys commands, Oriented to person, place, time, situation. GI: Abdomen is round non-distended, Pt is actively vomiting clear fluid, Bowel sounds present X 4 quads. Abd is soft and non tender X 4 quads. Derm: Skin is intact, is healthy with good turgor, Skin is pink, warm \T\ dry. Musculoskeletal: Circulation, motion, and sensation intact. Capillary refill < 3 seconds. 14:40 Reassessment: Patient appears in no apparent distress at this time. Patient and/or ca1 family updated on plan of care and expected duration. Pain level reassessed. Patient is alert, oriented x 3, equal unlabored respirations, skin warm/dry/pink. 15:30 Reassessment: Patient appears in no apparent distress at this time. Patient is alert, ca1 oriented x 3, equal unlabored respirations, skin warm/dry/pink. Patient states feeling better. Patient states symptoms have improved. Vital Signs: 12:01 BP 133 / 91; Pulse 88; Resp 18 S; Temp 98.0(TE); Pulse Ox 98% on R/A; aa5 14:18 BP 126 / 83; Pulse 81; Resp 16 S; Pulse Ox 99% on R/A; ca1 15:30 BP 128 / 79; Pulse 86; Resp 16 S; Pulse Ox 100% on R/A; ca1 ED Course: 11:27 Patient arrived in ED. as 11:59 Arm band placed on. aa5 12:00 Triage completed. aa5 13:32 Topher Richmond PA is PHCP. [facility] 13:32 Pancho Greene MD is Attending Physician. [facility] 13:40 Patient has correct armband on for positive identification. Placed in gown. Bed in low ca1 position. Call light in reach. Side rails up X2. Pulse ox on. NIBP on. Warm blanket given. 13:44 Mora Duenas, RN is Primary Nurse. ca1 14:00 Inserted saline lock: 22 gauge in left hand, using aseptic technique. ca1 15:51 No provider procedures requiring assistance completed. IV discontinued, intact, ca1 bleeding controlled, No redness/swelling at site. Pressure dressing applied. Administered Medications: 13:50 Not Given (Duplicate Order): NS 0.9% 1000 ml IV at 1 bolus Per protocol; 1000 mL bolus [facility] 14:01 Drug: NS 0.9% 500 ml Route: IV; Rate: bolus; Site: left hand; ca1 14:40 Follow up: Response: No adverse reaction; IV Status: Completed infusion; IV Intake: ca1 500ml 14:02 Drug: diphenhydrAMINE 50 mg Route: IVP; Site: left hand; ca1 15:44 Follow up: Response: No adverse reaction; Marked relief of symptoms ca1 14:04 Drug: Promethazine 12.5 mg Route: IVP; Site: left hand; ca1 15:10 Follow up: Response: No adverse reaction; Nausea unchanged ca1 15:17 Drug: Zofran (Ondansetron) 4 mg Route: IVP; Site: left hand; ca1 15:45 Follow up: Response: No adverse reaction; Nausea is decreased ca1 Intake: 14:40 IV: 500ml; Total: 500ml. ca1 Outcome: 15:18 Discharge ordered by MD. yang 15:51 Discharged to home ambulatory, with significant other. ca1 15:51 Condition: stable 15:51 Discharge instructions given to patient, Instructed on discharge instructions, follow up and referral plans. medication usage, Demonstrated understanding of instructions, follow-up care, medications, Prescriptions given X 1. 15:52 Patient left the ED. ca1 Signatures: Topher Richmond PA PA jmm Martinez, Amelia as Calderon, Audri, RN RN aa5 Mora Duenas, RN RN ca1 Corrections: (The following items were deleted from the chart) 12:01 11:59 Chief complaint: Patient states: nausea and vomiting since 0700 today. Pt reports aa5 she ran out of Zofran. aa5
[2020-11-19] MEDS ORDERED: ONDANSETRON 4 MG/2 ML VIAL ONE (15:31)
[2020-11-19 15:58] VITALS: TEMP 98
[2020-11-19 16:01] VITALS: BP 128/79; O2SAT 100
== END 2020-11-19 15:52 | disposition home or self-care (01) ==
LOC: ER 11:07
DX: R11.2 Nausea with vomiting, unspecified (principal); Z88.6 Allergy status to analgesic agent; Z91.018 Allergy to other foods
CPT/HCPCS: 96361; 96375; 96374; 99284; J2550; J1200; J7040; J7030; J2405

== ENCOUNTER 2020-11-26 01:38 | Emergency (ER) | payer MEDICAID ==
--- OUTSIDE RECORDS SUMMARY | 2020-11-26 01:40 | XMS REPORT | Continuity of Care Document ---
:1990 Author Organization [facility] t Address [address] [place] [address] Care Team Providers Name Role Phone Clarice Urbano Attending Clinician Lauren Thomas Attending Clinician Doctor Unassigned, Name Attending Clinician Unavailable Ultrasound Attending Clinician Unavailable Problems This patient has no known problems. Allergies, Adverse Reactions, Alerts This patient has no known allergies or adverse reactions. Medications This patient has no known medications. Procedures This patient has no known procedures. Encounters Start End Encounter Admission Attending Care Care Encounter Source Date/Time Date/Time Type Type Clinicians Facility Department ID 2020-11-22 2020-11-22 Routine Vitaliy RUST [id number] 13:40:18 14:35:31 Graciela Oneil ROUTE DELIVERER [id number] Visit REGIONAL [id number] MATERNAL [id number] & CHILD [address] [place] [address] 2020-11-21 2020-11-21 Telephone AMBAR Fernandez [id number] 00:00:00 00:00:00 Roshunda R ROUTE DELIVERER [id number] REGIONAL [id number] MATERNAL [id number] & CHILD 107 [facility] 2020-11-16 2020-11-16 Abstract Fernandez PAJENY [id number] 00:00:00 00:00:00 Roshunda R ROUTE DELIVERER [id number] REGIONAL [id number] MATERNAL [id number] & CHILD 107 [facility] 2020-11-16 2020-11-16 Orders Doctor JAYCE [id number] 00:00:00 00:00:00 Only Unassigned, SRAVAN [id number] [facility] 4.2.7.2.686 [id number] 2020-11-15 2020-11-15 Brush Clearer Surveying Ultrasound, RUST [id number] 12:45:58 13:35:09 Visit [facility] ROUTE DELIVERER [id number] REGIONAL [id number] MATERNAL [id number] & CHILD 369 [facility] 2020-11-15 2020-11-15 Case Jim RUST [id number] 00:00:00 00:00:00 Management Rosedynda R ROUTE DELIVERER [id number] REGIONAL [id number] MATERNAL [id number] & CHILD 107 [facility] 2020-11-11 2020-11-11 Telephone Jim RUST [id number] 00:00:00 00:00:00 Rosedynda R ROUTE DELIVERER [id number] REGIONAL [id number] MATERNAL [id number] & CHILD 107 [facility] 2020-11-10 2020-11-10 Telephone Jim RUST [id number] 00:00:00 00:00:00 Roseydnda R ROUTE DELIVERER [id number] REGIONAL [id number] MATERNAL [id number] & CHILD 107 [facility] 2020-11-09 2020-11-09 Marla Fernandez RUST [id number] 00:00:00 00:00:00 Roshunda R ROUTE DELIVERER [id number] REGIONAL [id number] MATERNAL [id number] & CHILD 107 [facility] 2020-11-08 2020-11-08 Brush Clearer Surveying Ultrasound, RUST [id number] 14:59:47 15:29:47 Visit [facility] ROUTE DELIVERER [id number] REGIONAL [id number] MATERNAL [id number] & CHILD 369 [facility] 2020-11-08 2020-11-08 Telephone Akinsi, RUST [id number] 00:00:00 00:00:00 Graciela C ROUTE DELIVERER [id number] REGIONAL [id number] MATERNAL [id number] & CHILD 107 [facility] 2020-11-03 2020-11-03 [facility] [id number] 00:00:00 00:00:00 Roshunda R ROUTE DELIVERER 350.1.13.10 REGIONAL [id number] MATERNAL [id number] & CHILD 107 [facility] 2020-11-01 2020-11-01 [facility] [id number] 00:00:00 00:00:00 Roshunda R ROUTE DELIVERER 350.1.13.10 REGIONAL [id number] MATERNAL [id number] & CHILD 107 [facility] 2020-11-01 2020-11-01 [facility] [id number] 00:00:00 00:00:00 Roshunda R ROUTE DELIVERER 350.1.13.10 REGIONAL [id number] MATERNAL [id number] & CHILD 107 [facility] 2020-11-01 2020-11-01 [facility] [id number] 00:00:00 00:00:00 Roshunda R ROUTE DELIVERER 350.1.13.10 REGIONAL [id number] MATERNAL [id number] & CHILD 107 [facility] 2020-10-31 2020-10-31 Brush Clearer Surveying Ultrasound, RUST [id number] 15:24:37 15:54:37 Visit Narcisotam ROUTE DELIVERER [id number] REGIONAL [id number] MATERNAL [id number] & CHILD 369 [facility] Results This patient has no known results.
--- OUTSIDE RECORDS SUMMARY | 2020-11-26 01:59 | XMS REPORT | Summary of Care ---
:1990 Author Organization [facility] Address [address] [place] [address] Care Team Providers Name Role Phone Gamal Saravia Insurance Hmo Lauren Fernandez GROUND MIXER Primary Care Provider Reason for Visit Reason Comments New Medication [place] Encounter Details Date Type Department Care Team Description 11/21/2020 Telephone [facility]- Cornelius Fernandez R, Pamella w Medication [facility] ([place]) [address] [facility] [address] [place] [address] [place], [place] [phone] [id number] [phone] Allergies Active Allergy Reactions Severity Noted Date Comments Ibuprofen Hives 04/15/2014 Lamar Hives 04/15/2014 Sodium Citrate (Bulk) Nausea and/or Vomiting 9 documented as of this encounter (statuses as of 11/21/2020) Medications Medication Sig Dispensed Refills Start Date End Date Status vit Take 1 Packet by 30 Each 6 08/03/2020 Active 98-mjyq-jyrwp-dha mouth daily. 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 Encounter for IUD removal and reinsertion 01/18/2015 ASCUS on Pap smear 04/15/2014 Estimated Date of Delivery Comments Yes 04/11/2021 Based on Ultrasound, FHT: 127, Transverse Presentation, Placen ta Too early to evaulate documented as of this encounter (statuses as of 11/21/2020) Resolved Problems Problem Noted Date Resolved Date 37 weeks gestation of 12/18/2018 01/08/20 19 [place] Hick's contraction 12/12/2018 01/08/2019 Abnormal maternal glucose [...] management 01/25/2015 05/20/2018 Overview: ICD10 Diagnosis Term Emergency Care Tech Utility Breast tenderness in female 01/25/2015 05/20/2018 Not immune to rubella 04/16/2014 06/04/2016 Overview: ICD10 Diagnosis Term Emergency Care Tech Utility documented as of this encounter (statuses as of 11/21/2020) Immunizations Name Administration Dates Next Due HPV9 [...] with No / Unsure 11/15/2020 12:27 PM 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 documented as of this encounter Last Filed Vital Signs Not on filedocumented in this encounter Miscellaneous Notes Telephone Encounter - Roselyn Moore, RN - 11/21/2020 10:29 AM CSTJamiee Luly Fuentes is a 30 year old female Informed patient Nara injections have been approved. Patient informed will start injections on 11/22/2020, patient verbalized understanding. documented in this encounter Plan of Treatment Date Type Specialty Care Team Description 11/22/2020 Routine Visit OB Satellites Flora Burks, CNP [address], [place] [address] [phone] 11/22/2020 Local Announcer Visit Maternal Marisel Galvan Medicine MD [address] [place], [place] [address] 11/29/2020 Local Announcer Visit Maternal Marisel Galvan Medicine MD [address] [place], [place] [address] 12/13/2020 Local Announcer Visit Maternal Marisel Galvan, Medicine [address] [place] [address] [phone] Health Maintenance Due Date Last Done Comments [...] Subscriber ID Effective Phone Address T [facility] Dates ASIA BETANCOURT [id number] 2018-Anupama [address] [address]OX Medic aid [place] [id number] MANAGED MEDICAID [place] documented as of this encounter Advance Directives Type Date Recorded 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
--- OUTSIDE RECORDS SUMMARY | 2020-11-26 02:00 | XMS REPORT | Summary of Care ---
:1990 Author Organization [facility] - [facility] Address [address] [place] [address] Care Team Providers Name Role Phone Manjit Meera Insurance Hmo Lauren Fernandez Primary Care Provider Reason for Visit Reason Comments Care Encounter Details Date Type Department Care Team Description 11/22/2020 Routine [facility] [place], Super vision of high risk in first trimester (Primary Dx); Visit [place] Graciela Oneil, WHCNP Multiparity; [address] Previo us section complicating ; Street ST Obesity in ; [place], [place] JACQUELYN A History of delivery; [address] [place], [place] Rubella non-immune status, a ntepartum; [phone] Maternal varicella, non-immune [phone] Allergies Active Allergy Reactions Severity Noted Date Comments Ibuprofen Hives 04/15/2014 Chavies Hives 04/15/2014 Sodium Citrate (Bulk) Nausea and/or Vomiting 9 documented as of this encounter (statuses as of 11/23/2020) Medications Medication Sig Dispensed Refills Start Date End Date Status vit Take 1 Packet by 30 Each 6 08/03/2020 Active 08-nlrs-teznb-dha mouth daily. (SELECT-OB + DHA) 29 mg [...] injectionIndications: labor in second trimester without delivery Hospital, Clinic, or Other Ordered Dose Route Frequency Start Date End Date Status Facility Administered Medication hydroxyprogesterone(PF) 275 mg SC QWEEKLY 11/22/202003/21 Active (BRODIE AUTO-INJECTOR) 275 mg/1.1 mL injection 275 mgIndications: History of delivery documented as of this encounter (statuses as of 11/23/2020) Active Problems Problem Noted Date History of delivery 10/24/2020 History of cholecystectomy 10/24/2020 Cholelithiasis affecting in second trimester , antepartum 10/12/2020 Gallstones 10/11/2020 Overview: Added automatically from request for brea isela [id number] Nausea & vomiting 09/10/2020 9 weeks gestation [...] Obesity in 01/25/2015 Overview: ICD10 Diagnosis Term 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 Encounter for IUD removal and reinsertion 01/18/2015 ASCUS on Pap smear 04/15/2014 Estimated Date of Delivery Comments Yes 04/11/2021 Based on Ultrasound, FHT: 127, Transverse Presentation, Placen ta Too early to evaulate documented as of this encounter (statuses as of 11/23/2020) Resolved Problems Problem Noted Date Resolved Date 37 weeks gestation of 12/18/2018 01/08/20 19 [place] Hick's contraction 12/12/2018 01/08/2019 Abnormal maternal glucose [...] management 01/25/2015 05/20/2018 Overview: ICD10 Diagnosis Term 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 Breast tenderness in female 01/25/2015 05/20/2018 Not immune to rubella 04/16/2014 06/04/2016 Overview: ICD10 Diagnosis Term 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 documented as of this encounter Last Filed Vital Signs Vital Sign Reading Time Taken Comments Blood Pressure 121/76 11/22/2020 1:55 PM ROLL TESTER Pulse 80 11/22/2020 1:55 PM ROLL TESTER Temperature 36.8 C (98.3 F) 11/22/2020 1:55 PM ROLL TESTER Respiratory Rate 16 11/22/2020 1:55 PM ROLL TESTER Oxygen Saturation - - Inhaled Oxygen Concentration - - Weight 76.3 kg (168 lb 4 oz) 11/22/2020 1:55 PM ROLL TESTER Height 162.6 cm (5' 4") 11/22/2020 1:55 PM ROLL TESTER Body Mass Index 28.88 11/22/2020 1:55 PM ROLL TESTER documented in this encounter Progress Notes Ysabel Noyola RN - 11/22/2020 2:00 PM CST30 year old female in clinic today for Brodie progesterone injection. 250 mg administered sub q via right arm- see MAR entry. Witnessed by Aleksander Moore RN. Medication supplied by outside pharmacy. Pt tolerated injection well, warning signs discussed with her at this time. Pt instructed to RTC 1 wk fornext dose or PRN. Pt verbalized understanding. YSABEL NOYOLA RN 11/22/2020 2:45 PM TESTER [facility] - 11/22/2020 2:00 PM CST Chief complaint: Chief Complaint Patient presents with Care HPI CC: Follow Up Visit Amadomeera Luly Fuentes is a 30 year old, , /White female. Patient's last menstrual period was 06/08/2020 (approximate). She is 20w0d with an intrauterine . Her estimated date of delivery is 04/11/2021, by Ultrasound. She has no complaints today. She reports +FM and denies contractions, LOF and bleeding today. Histories OB History Para Term AB [...] Surgeon: Manny Gray; Location: Labor and Delivery [facility] [place] LAPAROSCOPIC CHOLECYSTECTOMY N/A 10/13/2020 Surgeon: Jamie Holden MD; Location: [facility] Social History Socioeconomic History Marital status: Spouse [...] file Gets together: Not on file Attends christianity service: Not on file Active member of [...] sexual or emotional abuse. Only outside cats. Anabaptism: None Patient lives with spouse and kids. Social History Substance and Sexual Activity Sexual Activity Yes Partners: Male Comment: last sexual intercourse 10/2018 Labs No new labs and Routine Visit on 10/24/2020 Component Date Value RACE 10/24/2020 WEIGHT 10/24/2020 166.3125 GEST. AGE 1110/24/2020 15,6 INS. DEP 10/24/2020 No US DATE 10/24/202020200824 METHOD 10/24/2020 US MULT GEST 10/24/2020 No NTD HX 10/24/2020 No INITAL OR REPEAT 10/24/2020 Initial Testing SMOKER 10/24/2020 No INHIBIN 10/24/2020 171.1 AFP-MS 10/24/2020 24.7 ESTRIOL 10/24/2020 1.42 BHCG DOWNS 10/24/2020 37,632.0 AFP-MS MoM 10/24/2020 0.95 BHCG MoM 10/24/2020 0.98 INHIBIN MoM 10/24/2020 1.01 E3 MoM 10/24/2020 1.64 EQ AGE RSK 10/24/2020 < 15.0 DS APR 10/24/2020 1:704 DS INTERP 10/24/2020 See Note DS RSK 10/24/2020 1:20247 DS SCRN 10/24/2020 Negative TRISOMY 18 10/24/2020 See Note ES RSK 10/24/2020 < 1:48652 ES SCRN 10/24/2020 Negative OSB INTERP 10/24/2020 See Note OSB RSK 10/24/2020 1:91084 OSB SCRN 10/24/2020 Negative INTERPRETATION 10/24/2020 N POCT U SP GRAV 10/24/2020 . POCT PH U 10/24/2020 . POCT U LEUK EST 10/24/2020 . POCT U NIT 10/24/2020 . POCT U PROT 10/24/2020 1+ POCT U GLU 10/24/2020 Trace POCT U KETONE 10/24/2020 . POCT U UROBILI 10/24/2020 . POCT U BILI 10/24/2020 . POCT U BLD 10/24/2020 . Admission on 10/18/2020, Discharged on 10/18/2020 Component [...] test is performed, there is approximately a uzr-wr-gpjyt chance that the once tested patient has [...] based upon aggregate COVID-19 test results in [facility]. They apply to the following tests offered at [facility] and assume the acceptable specimen type(s) were used: A. Tests for the Identification of SARS-CoV-2 RNA (Molecular NAAT Tests): - SARS-CoV-2 PCR assays including [place] Aptima, [place] Fusion, Hood RealTime, and CollegeMapperXpert Xpress. - SARS-CoV-2 Rapid ID NOW by the ID NOW assay. B. Tests for the Identification of SARS-CoV-2 Antibodies: - Chemiluminescent immunoassays including Access SARS-CoV-2 IgM (DXI 600), UserZoomS Xnwn-SHQY-PgE-2 IgG (Vitros 5600 and Vitros 3600), and Hood SARS-CoV-2 IgG (PEACE OFFICER I System). These interpretations are autopopulated into [facility] based on computerized algorithms matching an interpretation code to the patient's set of test results, and a clinical pathologist evaluates the comments for accuracy. However, these comments do not consider testing a patient may have had outside of the [facility] system. If results for COVID- 19 infection [...] 27 Case Report 10/13/2020 Value:Surgical Pathology Case: [id number] Authorizing Provider: Jamie Holden MD Collected: 10/13/2020 1318 Ordering Location: [facility] OR Received: 10/13/2020 1418 Department Pathologist: Ysabel [...] test is performed, there is approximately a mpl-iu-oiuzk chance that the once tested patient has [...] AST(SGOT) 08/28/2020 20 BETA HCG 08/28/2020 140,720.00 Radiology Radiology pending. Allergies Suraj is allergic [...] BP CUFF SIZE: Adult Medium) | Pulse 80 | Temp 36.8 C (98.3 F) (Oral) | Resp 16 | Ht 5' 4" (1.626 m) | Wt 168 lb 4 oz (76.3 kg) | LMP 06/08/2020 (Approximate) | BMI 28.88 kg/m Pregravid BMI: 30.20 Physical Exam PHYSICAL: General Exam: Neurological: Normal Abdomen: Normal gravid Extremities: Normal Pelvic Exam: Uterus: 20 Weeks Assessment/Plan Return to clinic in 4 weeks. Return to clinic 1 week for 17p inj Denies zika virus risk, signs and symptoms such as fever,rash,joint pain, conjunctivitis (red eyes),muscle pain, headaches; outside [place] travel to areas affected by zika, and FOB exposure to zika. Educated on use of mosquito repellent. Supervision of high risk in first trimester (primary encounter diagnosis) Multiparity Previous section complicating Comment: routine Plan: POCT URINALYSIS W SPECIFIC GRAVITY Obesity in Comment: see bmi Plan: BMI discussed, appropriate [...] and mental health on future pregnancies and/or supervisor intermediates health. History of delivery Comment: start brodie today Plan: return weekly for 17p inj Rubella non-immune status, antepartum Maternal varicella, non-immune Comment: no mgmt today Plan: address pp This visit did not involve counseling and coordination that comprised more than 50% of the visit time. BELLA Brower 11/22/2020 2:31 PM TESTER documented in this encounter Plan of Treatment Date Type Specialty Care Team Description 11/29/2020 Nurse Visit OB Satellites Visit, Mauricio Nurse 11/29/2020 Semi Driver Visit Maternal Marisel Galvan, Medicine [address] [place] [address] 12/13/2020 Semi Driver Visit Maternal Marisel Galvan Medicine [address] [place] [address] 12/20/2020 Routine Visit OB Satellites Flora Burks WHCNP [address] [place], [place] [address] [phone] Health Maintenance Due Date Last Done Comments PAP SMEAR 11/27/2020 11/27/2017, 04/15/2014, 08/08/2012, Additional history exists PNEUMOCOCCAL 0-64 YEARS 12/10/2020 Postpone d from COMBINED SERIES (1 of 3 - 1995 (Alternative PCV13) Guidelines) INFLUENZA VACCINE (#1) 2021 Postponed from 07/26/2020 (Refu sed) Depression Screening 08/03/2021 08/03/2020 VARICELLA VACCINES (2 of 2 08/03/2021 12/20/2018 Postp oned from - 13+ 2-dose series) 01/17/2019 ( or ) DTaP,Tdap,and Td Vaccines 12/11/2028 12/11/2018, 04/06/2015 , (4 - Td) 11/25/2004 documented as of this encounter Procedures Procedure Name Priority Date/Time Associated Diagnosis Comme nts POCT URINALYSIS Routine 11/22/2020 3:24 PM Supervision of hig h Results for this ROLL TESTER risk in procedure are in first trimester the results section. documented in this encounter Results POCT URINALYSIS W SPECIFIC GRAVITY (11/22/2020 3:24 PM ROLL TESTER) Pathologist Sig nature POCT U SP GRAV . 1.005 - 1.025 mg/dl POCT PH U . 5 - 8 mg/dl POCT U LEUK EST . Negative - Negative POCT U NIT . Negative - Negative POCT U PROT Trace Negative - Negative POCT U GLU 1+ [...] in rst trimester - Primary Unspecified high-risk Multiparity Previous section complicating p regnancy Previous delivery, unspecified as to episode of care or not applicable Obesity in Obesity complicating , childbir th, or the puerperium, unspecified as to episode of care or not applicable History of delivery Rubella non-immune status, antepartum Other specified complication, antepartum Maternal varicella, non-immune Supervision of other high-risk documented in this encounter Administered Medications Medication Order MAR Action Action Date Dose Rate Site hydroxyprogesterone(PF) Given 11/22/2020 2:43 PM ROLL TESTER 275 mg Right Arm (BRODIE AUTO-INJECTOR) 275 mg/1.1 mL injection 275 mg 275 mg, Subcutaneous, QWEEKLY, 17 doses, First dose on Sat11/22/20 at 1445, Last dose on Sat03/14/21 at 1445, Routine documented in this encounter Insurance Payer Benefit Plan / Subscriber ID Effective Phone Address T e Group Dates ASIA BETANCOURT [id number] 2018-Anupama [address]acho [address] Medic aid [place] [id number] MA[place]ED [place] documented as of this encounter Advance Directives Type Date Recorded 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
[2020-11-26] MEDS ORDERED: NA CHLORIDE 0.9% 500 ML ONE (02:47)
[2020-11-26] MEDS ORDERED: ONDANSETRON 4 MG/2 ML VIAL ONE (02:47)
[2020-11-26] MEDS ORDERED: DIPHENHYDRAMINE 50 MG/ML VIAL ONE (02:47)
--- NOTE | 2020-11-26 03:27 | EDPHYS ---
Physician Documentation [facility] Name: Suraj Fuentes Age: 30 yrs Sex: Female : 1990 Arrival Date: 11/26/2020 Time: 01:41 Bed 13 Private MD: ED Physician Corbin Gross HPI: 11/26 02:32 This 30 yrs old Female presents to ER via Ambulatory with complaints of pkl Nausea. 02:32 The patient presents to the emergency department with nausea, vomiting. Onset: The pkl symptoms/episode began/occurred just prior to arrival, 1 hour(s) ago. The patient has experienced similar episodes in the past, several times. 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 - Social history:: Smoking status: Patient denies any tobacco usage or history of. ROS: 02:32 Eyes: Negative for injury, pain, redness, and discharge, ENT: Negative for injury, pkl pain, and discharge, Neck: Negative for injury, pain, and swelling, Cardiovascular: Negative for chest pain, palpitations, and edema, Respiratory: Negative for shortness of breath, cough, wheezing, and pleuritic chest pain. 02:32 Abdomen/GI: Positive for nausea and vomiting. 02:32 Back: Negative for acute changes. 02:32 : Negative for urinary symptoms. 02:32 MS/extremity: Negative for acute changes. 02:32 Skin: Negative for rash. 02:32 Neuro: Negative for altered mental status. Exam: 02:32 Head/Face: Normocephalic, atraumatic. Eyes: Pupils equal round and reactive to light, pkl extra-ocular motions intact. Lids and lashes normal. Conjunctiva and sclera are non-icteric and not injected. Cornea within normal limits. Periorbital areas with no swelling, redness, or edema. ENT: Nares patent. No nasal discharge, no septal abnormalities noted. Tympanic membranes are normal and external auditory canals are clear. Oropharynx with no redness, swelling, or masses, exudates, or evidence of obstruction, uvula midline. Mucous membranes moist. Neck: Trachea midline, no thyromegaly or masses palpated, and no cervical lymphadenopathy. Supple, full range of motion without nuchal rigidity, or vertebral point tenderness. No Meningismus. Chest/axilla: Normal chest wall appearance and motion. Nontender with no deformity. No lesions are appreciated. Cardiovascular: Regular rate and rhythm with a normal S1 and S2. No gallops, murmurs, or rubs. Normal PMI, no JVD. No pulse deficits. Respiratory: Lungs have equal breath sounds bilaterally, clear to auscultation and percussion. No rales, rhonchi or wheezes noted. No increased work of breathing, no retractions or nasal flaring. 02:32 Abdomen/GI: Inspection: gravid appearance, is noted, Bowel sounds: normal, Palpation: abdomen is soft and non-tender, in all quadrants. 02:32 Back: Exam negative for acute changes. 02:32 : Exam negative for acute changes. 02:32 Musculoskeletal/extremity: Exam is negative for acute changes. 02:32 Skin: Exam negative for rash. 02:32 Neuro: Orientation: is normal, Mentation: is normal, Cranial nerves: grossly normal, Motor: is normal. Vital Signs: 01:58 BP 122 / 81; Pulse 92; Resp 18; Pulse Ox 100% on R/A; Weight 76.2 kg (R); Pain 0/10; lp1 02:07 Temp 97.8; ll2 MDM: 02:27 Patient medically screened. pkl 03:23 Data reviewed: vital signs, nurses notes. ED course: Patient feeling better. Advised to pkl follow up with her PCP in 2 to 3 days. Patient under instructions. Administered Medications: 02:42 Drug: Benadryl 25 mg Route: IVP; Site: left forearm; ll2 03:40 Follow up: Response: No adverse reaction ll2 02:43 Drug: NS 0.9% 500 ml Route: IV; Rate: bolus; Site: left forearm; ll2 03:40 Follow up: Response: No adverse reaction; IV Status: Completed infusion; IV Intake: ll2 500ml 02:43 Drug: Zofran (Ondansetron) 4 mg Route: IVP; Site: left forearm; ll2 03:40 Follow up: Response: No adverse reaction; Nausea is decreased ll2 Disposition: 11/26/20 03:26 Discharged to Home. Impression: Vomiting.. 2nd Trimester . - Condition is Stable. - Prescriptions for Zofran 4 mg Oral Tablet - take 1 tablet by ORAL route every 12 hours As needed; 10 tablet. - Medication Reconciliation Form, Thank You Letter, Antibiotic Education, Prescription Opioid Use form. - Follow up: Private Physician; When: 2 - 3 days; Reason: Re-evaluation by your physician. - Problem is new. - Symptoms have improved. Signatures: Corbin Gross MD MD pkl Merna Aranda RN RN lp1 Sera Izquierdo RN RN ll2 Corrections: (The following items were deleted from the chart) 03:42 03:26 11/26/2020 03:26 Discharged to Home. Impression: Vomiting.. 2nd Trimester ll2 . Condition is Stable. Forms are Medication Reconciliation Form, Thank You Letter, Antibiotic Education, Prescription Opioid Use. Follow up: Private Physician; When: 2 - 3 days; Reason: Re-evaluation by your physician. Problem is new. Symptoms have improved. pkl
--- NOTE | 2020-11-26 03:27 | ER ---
Nurse's Notes [facility] Name: Suraj Fuentes Age: 30 yrs Sex: Female : 1990 Arrival Date: 11/26/2020 Time: 01:41 Bed 13 Private MD: Diagnosis: Vomiting.. 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 Coronavirus screen: Client denies travel out of the [place] in the last 14 days. At this time, the client does not indicate any symptoms associated with coronavirus-19. Ebola Screen: No symptoms or risks identified at this time. Initial Sepsis Screen: Does the patient meet any 2 criteria? No. Patient's initial sepsis screen is negative. Does the patient have a suspected source of infection? No. Patient's initial sepsis screen is negative. Risk Assessment: Do you want to hurt yourself or someone else? Patient reports no desire to harm self or others. Onset of symptoms was November 26, 2020 at 01:00. 01:58 Method Of Arrival: Ambulatory lp1 01:58 Acuity: SHAW 3 lp1 Triage Assessment: 01:45 GI: Reports nausea. ll2 [employer]IL[employer] HOUSE MECH[employer]IC: 02:03 LMP 06/08/2020, Verified, EDC 03/15/2021, Gestational age from LMP: 24 weeks 3 lp1 days Historical: - Allergies: 02:02 Demerol; lp1 02:02 Ibuprofen; lp1 02:02 ORANGES; lp1 - Home Meds: 02:02 Zofran Oral [Active]; lp1 - PMHx: 02:02 GALLSTONES; hyperemesis gravidarum; Pancreatitis; lp1 - PSHx: 02:02 Cholecystectomy; Appendectomy; lp1 - Immunization history:: Adult Immunizations up to date. - Social history:: Smoking status: Patient denies any tobacco usage or history of. Screenin:03 Abuse screen: Denies threats or abuse. Denies injuries from another. Nutritional lp1 screening: No deficits noted. Tuberculosis screening: No symptoms or risk factors identified. Fall Risk None identified. Assessment: 01:45 General: Appears in no apparent distress. Behavior is cooperative. Pain: Denies pain. ll2 Neuro: Level of Consciousness is awake, alert, obeys commands, Oriented to person, place, time, situation. Cardiovascular: Patient's skin is warm and dry. Respiratory: Airway is patent Respiratory effort is even, unlabored, Respiratory pattern is regular, symmetrical. GI: Abdomen is round. : No signs and/or symptoms were reported regarding the genitourinary system. EENT: No signs and/or symptoms were reported regarding the EENT system. Derm: Skin is intact, is healthy with good turgor, Skin is dry, Skin is pink, warm \T\ dry. Musculoskeletal: Circulation, motion, and sensation intact. Range of motion: intact in all extremities. 02:45 Reassessment: Patient and/or family updated on plan of care and expected duration. Pain ll2 level reassessed. Patient is alert, oriented x 3, equal unlabored respirations, skin warm/dry/pink. pt sleeping in bed. Vital Signs: 01:58 BP 122 / 81; Pulse 92; Resp 18; Pulse Ox 100% on R/A; Weight 76.2 kg (R); Pain 0/10; lp1 02:07 Temp 97.8; ll2 ED Course: 01:41 Patient arrived in ED. ag3 01:45 Patient has correct armband on for positive identification. Bed in low position. Call ll2 light in reach. Side rails up X 1. Pulse ox on. NIBP on. 02:00 Triage completed. lp1 02:00 Arm band placed on. lp1 02:07 Sera Izquierdo, ALFONZO is Primary Nurse. ll2 02:27 Corbin Gross MD is Attending Physician. pkl 02:37 Inserted saline lock: 22 gauge in right forearm, using aseptic technique. mg2 03:41 No provider procedures requiring assistance completed. IV discontinued, intact, ll2 bleeding controlled, No redness/swelling at site. Pressure dressing applied. Administered Medications: 02:42 Drug: Benadryl 25 mg Route: IVP; Site: left forearm; ll2 03:40 Follow up: Response: No adverse reaction ll2 02:43 Drug: NS 0.9% 500 ml Route: IV; Rate: bolus; Site: left forearm; ll2 03:40 Follow up: Response: No adverse reaction; IV Status: Completed infusion; IV Intake: ll2 500ml 02:43 Drug: Zofran (Ondansetron) 4 mg Route: IVP; Site: left forearm; ll2 03:40 Follow up: Response: No adverse reaction; Nausea is decreased ll2 Intake: 03:40 IV: 500ml; Total: 500ml. ll2 Outcome: 03:26 Discharge ordered by . jelani 03:41 Discharged to home ambulatory. ll2 03:41 Condition: stable 03:41 Discharge instructions given to patient, Instructed on discharge instructions, follow up and referral plans. medication usage, Demonstrated understanding of instructions, follow-up care, medications, Prescriptions given X 1. 03:42 Patient left the ED. ll2 Signatures: Corbin Gross MD MD pkl Merna Aranda, RN RN lp1 Tien Juarez RN RN mg2 Alejandrina Benítez3 Sera Izquierdo RN RN ll2
[2020-11-26 03:53] VITALS: BP 122/81; O2SAT 100
[2020-11-26 03:54] VITALS: TEMP 97.8
== END 2020-11-26 03:42 | disposition home or self-care (01) ==
LOC: ER 01:38
DX: O21.2 Late vomiting of pregnancy (principal); Z3A.21 21 weeks gestation of pregnancy; Z88.5 Allergy status to narcotic agent; Z88.6 Allergy status to analgesic agent; Z91.018 Allergy to other foods
CPT/HCPCS: 96361; 96375; 96374; 99284; J1200; J7040; J2405

== ENCOUNTER 2020-11-29 13:21 | Emergency (ER) | payer MEDICAID ==
--- OUTSIDE RECORDS SUMMARY | 2020-11-29 13:25 | XMS REPORT | Continuity of Care Document ---
:1990 Author Organization [facility] t Address [address] [place] [address] Care Team Providers Name Role Phone Jim WELLINGTON R Attending Clinician Clarice Urbano Attending Clinician Doctor Unassigned, Name Attending Clinician [...] Date/Time Type Type Clinicians Facility Department ID 2020-11-28 2020-11-28 Telephone AMBAR Fernandez [id number] 00:00:00 00:00:00 Cornelius Aguilar LIGHT FIXTURE SERVICER [id number] [facility] [id number] MATERNAL [phone] & CHILD [address] [place] [address] 2020-11-22 2020-11-22 Routine AMBAR Burks [id number] 13:40:18 14:35:31 Graciela C LIGHT FIXTURE SERVICER [id number] Visit REGIONAL [id number] MATERNAL [id number] & CHILD [address] [facility] 2020-11-21 2020-11-21 Telephone AMBAR Fernandez [id number] 00:00:00 00:00:00 Roshunda R LIGHT FIXTURE SERVICER [id number] REG[facility]AL [id number] MATERNAL [id number] & CHILD [address] [facility] 2020-11-16 2020-11-16 Abstract Jim INJENY [id number] 00:00:00 00:00:00 Roshunda R LIGHT FIXTURE SERVICER [id number] REG[facility]AL [id number] MATERNAL [id number] & CHILD [address] [facility] 2020-11-16 2020-11-16 Orders Doctor JAYCE [id number] 00:00:00 00:00:00 Only Unassigned, SRAVAN [id number] [place] [facility] [id number] [id number] 2020-11-15 2020-11-15 Production Aide Ultrasound, [facility] [id number] 12:45:58 13:35:09 Visit Narcisotam LIGHT FIXTURE SERVICER [id number] REGIONAL [id number] MATERNAL [phone] & CHILD [address] [facility] 2020-11-15 2020-11-15 Case Jim INJENY [id number] 00:00:00 00:00:00 Management Roshunda R LIGHT FIXTURE SERVICER [id number] REG[facility]AL [id number] MATERNAL [phone] & CHILD [address] [facility] 2020-11-11 2020-11-11 AMBAR Wilburn [id number] 00:00:00 00:00:00 Roshunda R LIGHT FIXTURE SERVICER [id number] REG[facility]AL [id number] MATERNAL [id number] & CHILD [address] [facility] 2020-11-10 2020-11-10 Reta Jacksone, [facility] [id number] 00:00:00 00:00:00 Roshunda R LIGHT FIXTURE SERVICER [id number] REG[facility]AL [id number] MATERNAL [id number] & CHILD [address] [facility] 2020-11-09 2020-11-09 Abstract Jim [facility] [id number] 00:00:00 00:00:00 Roshunda R LIGHT FIXTURE SERVICER 350.1.13.10 REG[facility]AL [id number] MATERNAL [id number] & CHILD 107 [facility] 2020-11-08 2020-11-08 Production Aide Ultrasound, [facility] [id number] 14:59:47 15:29:47 Visit Ang-m LIGHT FIXTURE SERVICER 350.1.13.10 REGIONAL [id number] MATERNAL [phone] & CHILD [address] [facility] 2020-11-08 2020-11-08 [facility] [id number] 00:00:00 00:00:00 Graciela C LIGHT FIXTURE SERVICER 350.1.13.10 REGIONAL [id number] MATERNAL [id number] & CHILD [address] [facility] 2020-11-03 2020-11-03 Telephone Jim [facility] [id number] 00:00:00 00:00:00 Roshunda R LIGHT FIXTURE SERVICER 350.1.13.10 REGIONAL [id number] MATERNAL [id number] & CHILD [address] [facility] 2020-11-01 2020-11-01 Abstract Jim [facility] [id number] 00:00:00 00:00:00 Roshunda R LIGHT FIXTURE SERVICER 350.1.13.10 REGIONAL [id number] MATERNAL [id number] & CHILD [address] [facility] 2020-11-01 2020-11-01 Abstract Jim [facility] [id number] 00:00:00 00:00:00 Roshunda R LIGHT FIXTURE SERVICER 350.1.13.10 REGIONAL [id number] MATERNAL [id number] & CHILD [address] [facility] 2020-11-01 2020-11-01 Telephone [facility] [id number] 00:00:00 00:00:00 Cornelius R LIGHT FIXTURE SERVICER 350.1.13.10 REGIONAL [id number] MATERNAL [id number] & CHILD [address] [facility] 2020-10-31 2020-10-31 Production Aide Ultrasound, [facility] [id number] 15:24:37 15:54:37 Visit [facility] LIGHT FIXTURE SERVICER 350.1.13.10 REGIONAL [id number] MATERNAL [id number] & CHILD [address] [facility] Results This patient has no known results.
--- OUTSIDE RECORDS SUMMARY | 2020-11-29 13:42 | XMS REPORT | Summary of Care ---
:1990 Author Organization [facility] Address [address] [place] [address] Care Team Providers Name Role Phone Saravia, E Insurance Hmo Lauren Fernandez Primary Care Provider Reason for Visit Reason Comments Prescription Encounter Details Date Type Department Care Team Description 11/28/2020 [facility] Allen, ELIZ Prescription [address] [place] [address] [address] [place] [address] [phone] Allergies Active Allergy Reactions Severity Noted Date Comments Ibuprofen Hives 04/15/2014 [place] Hives 04/15/2014 Sodium Citrate (Bulk) Nausea and/or Vomiting 9 documented as of this encounter (statuses as of 11/28/2020) Medications Medication Sig Dispensed Refills Start Date End Date Status vit Take 1 Packet by 30 Each 6 08/03/2020 Active 58-mosd-ykrqj-dha mouth daily. 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 Encounter for IUD removal and reinsertion 01/18/2015 ASCUS on Pap smear 04/15/2014 Estimated Date of Delivery Comments Yes 04/11/2021 Based on Ultrasound, FHT: 127, Transverse Presentation, Placen ta Too early to evaulate documented as of this encounter (statuses as of 11/28/2020) Resolved Problems Problem Noted Date Resolved Date [...] 01/25/2015 05/20/2018 Overview: ICD10 Diagnosis Term Technical Service Rep Utility Breast tenderness in female 01/25/2015 05/20/2018 Not immune to rubella 04/16/2014 06/04/2016 Overview: ICD10 Diagnosis Term Technical Service Rep Utility documented as of this encounter (statuses as of 11/28/2020) Immunizations Name Administration Dates Next Due HPV9 [...] with No / Unsure 11/22/2020 1:54 PM CERTIFIED NURSES AIDE someone who was confirmed or suspected to have Coronavirus / COVID-19? documented as of this encounter Last Filed Vital Signs Not on filedocumented in this encounter Miscellaneous Notes Telephone Encounter - Benji Sapp RN - 11/28/2020 3:14 PM CSTPt received Custar on 11/22/2020 and has no current doses. Community pharmacy notified. Per Deya a new dose will be sent today. BENJI SAPP RN 11/28/2020 3:16 PM IFIED NURSES AIDE Telephone Encounter - [place] - 11/28/2020 1:06 PM CSTCommunity pharmacy calling regarding eleni injection documented in this encounter Plan of Treatment Date Type Specialty Care Team Description 11/29/2020 Nurse Visit [facility]/29/2020 Obgyn Nurse Visit Maternal Marisel Galvan, Medicine [address] [place], [place] [address] 12/13/2020 Obgyn Nurse Visit Maternal Marisel Galvan, Medicine [address] [place], [place] [address] 12/20/2020 Routine Visit OB Satellites Cornelius Fernandez, NONPROFIT FUNDRAISER [address] [place], [place] [address] [phone] Health Maintenance Due Date Last Done Comments [...] Address T e Group Dates ASIA BETANCOURT [id number] 2018-Anupama [place] [id number] MANAGED MED[place], [place] documented as of this encounter Advance Directives Type Date Recorded Patient Tire Cord Weaver Explanati on Advance Directives and Living Will Power of Experimental Machining Lab Manager Name Relationship Healthcare Agent Relationship Co mmunication Floyd Holloway Health Care Agent 00 (Work) Preet Coffey Other Health Care Agent - 00 (Work)
[2020-11-29] MEDS ORDERED: PROMETHAZINE INJ 25 MG/ML AMP ONE (14:14)
[2020-11-29] MEDS ORDERED: NA CHLORIDE 0.9% 1,000 ML ONE (14:14)
[2020-11-29] MEDS ORDERED: DIPHENHYDRAMINE 50 MG/ML VIAL ONE (14:14)
[2020-11-29 14:38] LABS: BUN Blood Urea Nitrogen 3 mg/dL (7-18); Bicarbonate 26 mmol/L (21-32); Glucose Level 83 mg/dL (74-106); Potassium 3.7 mmol/L (3.5-5.1); Sodium Level 138 mmol/L (136-145)
--- NOTE | 2020-11-29 16:10 | EDPHYS ---
Physician Documentation [facility] Name: Suraj Fuentes Age: 30 yrs Sex: Female : 1990 Arrival Date: 11/29/2020 Time: 13:24 Bed 14 Private MD: ED Physician Pancho Greene HPI: 11/29 14:15 This 30 yrs old Female presents to ER via Wheelchair with complaints of pm1 Abdominal Pain, Nausea. 14:15 The patient presents to the emergency department with nausea, vomiting, abdominal pain. pm1 Onset: The symptoms/episode began/occurred this morning. Possible causes: after eating a sausage biscuit for breakfast this AM. Took a zofran without improvement. The symptoms are aggravated by nothing. The symptoms are alleviated by nothing. Associated signs and symptoms: Pertinent positives: abdominal pain, Pertinent negatives: constipation, diarrhea, dysuria, fever. Severity of symptoms: in the emergency department the symptoms are unchanged. The patient has experienced similar episodes in the past, multiple times. The patient has been recently seen at the [facility] Emergency [facility], for similar complaints was given a prescription for an antiemetic. 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 - Social history:: Smoking status: . ROS: 14:15 Constitutional: Negative for fever, chills, and weight loss, Cardiovascular: Negative pm1 for chest pain, palpitations, and edema, Respiratory: Negative for shortness of breath, cough, wheezing, and pleuritic chest pain. 14:15 Back: Negative for injury and pain, : Negative for injury, bleeding, discharge, and swelling, MS/Extremity: Negative for injury and deformity, Skin: Negative for injury, rash, and discoloration, Neuro: Negative for headache, weakness, numbness, tingling, and seizure. 14:15 Abdomen/GI: Positive for abdominal pain, nausea and vomiting, Negative for diarrhea, constipation. Exam: 14:15 Constitutional: This is a well developed, well nourished patient who is awake, alert, pm1 and in no acute distress. Head/Face: Normocephalic, atraumatic. 14:15 Skin: Warm, dry with normal turgor. Normal color with no rashes, no lesions, and no evidence of cellulitis. MS/ Extremity: Pulses equal, no cyanosis. Neurovascular intact. Full, normal range of motion. 14:15 Cardiovascular: Rate: normal, Rhythm: regular, Pulses: no pulse deficits are appreciated. 14:15 Respiratory: Exam negative for acute changes, respiratory distress, shortness of breath. 14:15 Abdomen/GI: Inspection: abdomen appears normal, Palpation: abdomen is soft and non-tender, in all quadrants. 14:15 Back: pain, is absent, ROM is normal. 14:15 Neuro: Exam negative for acute changes, Orientation: is normal, Mentation: is normal, Motor: is normal, moves all fours. Vital Signs: 13:37 BP 125 / 111; Pulse 76; Resp 17; Temp 97.8(TE); Pulse Ox 100% on R/A; Weight 74.84 kg; tw2 Height 5 ft. 3 in. (160.02 cm); Pain 5/10; 13:40 BP 115 / 72; tw2 15:01 BP 131 / 77; Pulse 81; Resp 18 S; Pulse Ox 99% on R/A; ca1 16:00 BP 136 / 88; Pulse 81; Resp 16 S; Pulse Ox 99% on R/A; ca1 13:37 Body Mass Index 29.23 (74.84 kg, 160.02 cm) tw2 MDM: 13:46 Patient medically screened. [facility] 14:18 Data reviewed: vital signs. pm1 16:07 Counseling: I had a detailed discussion with the patient and/or guardian regarding: the pm1 historical points, exam findings, and any diagnostic results supporting the discharge/admit diagnosis, lab results, the need for outpatient follow up, to return to the emergency department if symptoms worsen or persist or if there are any questions or concerns that arise at home, Patient reports zofran typically works well for her and she almost out of out of it. She would like a refill. Will give the patient phenergan prescription also since it was effective for her in the ER. 11/29 13:53 Order name: BMP; Complete Time: 14:38 pm1 11/29 13:53 Order name: IV Saline Lock; Complete Time: 14:12 pm1 11/29 13:53 Order name: Urine Dipstick-Ancillary (obtain specimen); Complete Time: 16:25 pm1 Administered Medications: 14:11 Drug: NS 0.9% 1000 ml Route: IV; Rate: 1000 ml; Site: right forearm; ca1 15:30 Follow up: Response: No adverse reaction; IV Status: Completed infusion; IV Intake: ca1 1000ml 14:12 Drug: Benadryl 12.5 mg Route: IVP; Site: right forearm; ca1 15:30 Follow up: Response: No adverse reaction; Marked relief of symptoms ca1 14:16 Drug: Phenergan 12.5 mg Route: IVP; Site: right forearm; ca1 15:30 Follow up: Response: No adverse reaction; Marked relief of symptoms ca1 Disposition: 11/29/20 16:10 Discharged to Home. Impression: Nausea and vomiting - Second trimester . - Condition is Stable. - Discharge Instructions: Hyperemesis Gravidarum, Nausea and Vomiting, Adult, Eating Plan for Hyperemesis Gravidarum, Second Trimester of , Zcsj-mo-Orxd. - Prescriptions for Zofran ODT 4 mg Oral tablet,disintegrating - place 1 tablet by TRANSLINGUAL route every 8 hours As needed; 20 tablet. promethazine 25 mg Oral Tablet - take 1 tablet by ORAL route every 6 hours As needed; 20 tablet. - Medication Reconciliation Form, Thank You Letter, Antibiotic Education, Prescription Opioid Use form. - Follow up: Emergency Department; When: As needed; Reason: Worsening of condition. Follow up: Private Physician; When: 2 - 3 days; Reason: Recheck today's complaints, Continuance of care, Re-evaluation by your physician. - Problem is new. - Symptoms have improved. Addendum: 11/30/2020 17:21 Co-signature as Attending Physician, Pancho Greene MD I agree with the assessment and c hall plan of care. Signatures: Dispatcher [employer] Pancho Sanchez MD MD cha Marinas, Patrick, MACHINE BOSS MACHINE BOSS pm1 Lilian Gross RN RN tw2 Mora Duenas RN RN ca1 Corrections: (The following items were deleted from the chart) 11/29 16:13 16:10 11/29/2020 16:10 Discharged to Home. Impression: Nausea and vomiting. Condition pm1 is Stable. Forms are Medication Reconciliation Form, Thank You Letter, Antibiotic Education, Prescription Opioid Use. Follow up: Emergency Department; When: As needed; Reason: Worsening of condition. Follow up: Private Physician; When: 2 - 3 days; Reason: Recheck today's complaints, Continuance of care, Re-evaluation by your physician. Problem is new. Symptoms have improved. pm1 16:29 16:13 11/29/2020 16:10 Discharged to Home. Impression: Nausea and vomiting - Second ca1 trimester . Condition is Stable. Discharge Instructions: Nausea and Vomiting, Adult, Second Trimester of , Cdmu-aw-Hlmo, Hyperemesis Gravidarum, Eating Plan for Hyperemesis Gravidarum. Prescriptions for Zofran ODT 4 mg Oral tablet,disintegrating - place 1 tablet by TRANSLINGUAL route every 8 hours As needed; 20 tablet, promethazine 25 mg Oral Tablet - take 1 tablet by ORAL route every 6 hours As needed; 20 tablet. and Forms are Medication Reconciliation Form, Thank You Letter, Antibiotic Education, Prescription Opioid Use. Follow up: Emergency Department; When: As needed; Reason: Worsening of condition. Follow up: Private Physician; When: 2 - 3 days; Reason: Recheck today's complaints, Continuance of care, Re-evaluation by your physician. Problem is new. Symptoms have improved. pm1
--- NOTE | 2020-11-29 16:10 | ER ---
Nurse's Notes [facility] Name: Suraj Fuentes Age: 30 yrs Sex: Female : 1990 Arrival Date: 11/29/2020 Time: 13:24 Bed 14 Private MD: Diagnosis: Nausea and vomiting-Second trimester Presentation: 11/29 13:37 Chief complaint: Patient states: it started earlier i took a Zofran ODT and it didn't tw2 work, i am nauseous and vomiting. Coronavirus screen: nausea, Client presents with at least one sign or symptom that may indicate coronavirus-19. Standard/surgical mask placed on the client. Provider contacted for isolation considerations. Ebola Screen: Patient denies travel to an Ebola-affected area in the 21 days before illness onset. Initial Sepsis Screen: Does the patient meet any 2 criteria? No. Patient's initial sepsis screen is negative. Does the patient have a suspected source of infection? No. Patient's initial sepsis screen is negative. Risk Assessment: Do you want to hurt yourself or someone else? Patient reports no desire to harm self or others. Onset of symptoms was November 29, 2020. 13:37 Method Of Arrival: Wheelchair tw2 13:37 Acuity: SHAW 3 tw2 Triage Assessment: 13:40 General: Appears uncomfortable, Behavior is calm, cooperative, appropriate for age. tw2 Pain: Complains of pain in abdomen. GI: Reports nausea, vomiting. 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 - Social history:: Smoking status: . Screenin:43 Abuse screen: Denies threats or abuse. Denies injuries from another. Nutritional ca1 screening: No deficits noted. Tuberculosis screening: No symptoms or risk factors identified. Fall Risk IV access (20 points). Assessment: 13:43 General: Appears in no apparent distress. uncomfortable, Behavior is calm, cooperative, ca1 appropriate for age. Pain: Complains of pain in abdomen. Neuro: Level of Consciousness is awake, alert, obeys commands, Oriented to person, place, time, situation. GI: Abdomen is round non-distended, Pt is actively vomiting clear fluid, Bowel sounds present X 4 quads. Abd is soft and non tender X 4 quads. Reports nausea, vomiting. : No signs and/or symptoms were reported regarding the genitourinary system. EENT: No signs and/or symptoms were reported regarding the EENT system. Derm: Skin is intact, is healthy with good turgor, Skin is pink, warm \T\ dry. Musculoskeletal: Circulation, motion, and sensation intact. Capillary refill < 3 seconds. 15:01 Reassessment: Patient appears in no apparent distress at this time. Patient and/or ca1 family updated on plan of care and expected duration. Pain level reassessed. Patient is alert, oriented x 3, equal unlabored respirations, skin warm/dry/pink. 16:00 Reassessment: Patient appears in no apparent distress at this time. Patient and/or ca1 family updated on plan of care and expected duration. Pain level reassessed. Patient is alert, oriented x 3, equal unlabored respirations, skin warm/dry/pink. Patient states feeling better. Patient states symptoms have improved. Vital Signs: 13:37 BP 125 / 111; Pulse 76; Resp 17; Temp 97.8(TE); Pulse Ox 100% on R/A; Weight 74.84 kg; tw2 Height 5 ft. 3 in. (160.02 cm); Pain 5/10; 13:40 BP 115 / 72; tw2 15:01 BP 131 / 77; Pulse 81; Resp 18 S; Pulse Ox 99% on R/A; ca1 16:00 BP 136 / 88; Pulse 81; Resp 16 S; Pulse Ox 99% on R/A; ca1 13:37 Body Mass Index 29.23 (74.84 kg, 160.02 cm) tw2 ED Course: 13:24 Patient arrived in ED. ag3 13:39 Triage completed. tw2 13:40 Arm band placed on. tw2 13:42 Mora Duenas RN is Primary Nurse. ca1 13:43 Christian Avendaño NP is PHCP. pm1 13:43 Pancho Greene MD is Attending Physician. pm1 13:43 Patient has correct armband on for positive identification. Bed in low position. Call ca1 light in reach. Side rails up X 1. Pulse ox on. NIBP on. Warm blanket given. 13:46 Patient has correct armband on for positive identification. Bed in low position. Call mh5 light in reach. Side rails up X 1. Warm blanket given. Pulse ox on. NIBP on. 14:05 Missed attempt(s): 20 gauge in right antecubital area. Bleeding controlled, band aid ca1 applied, catheter tip intact. 14:10 Initial lab(s) drawn, by me, sent to lab. Inserted saline lock: 22 gauge in right ca1 forearm, using aseptic technique. Blood collected. 16:28 No provider procedures requiring assistance completed. IV discontinued, intact, ca1 bleeding controlled, No redness/swelling at site. Pressure dressing applied. Administered Medications: 14:11 Drug: NS 0.9% 1000 ml Route: IV; Rate: 1000 ml; Site: right forearm; ca1 15:30 Follow up: Response: No adverse reaction; IV Status: Completed infusion; IV Intake: ca1 1000ml 14:12 Drug: Benadryl 12.5 mg Route: IVP; Site: right forearm; ca1 15:30 Follow up: Response: No adverse reaction; Marked relief of symptoms ca1 14:16 Drug: Phenergan 12.5 mg Route: IVP; Site: right forearm; ca1 15:30 Follow up: Response: No adverse reaction; Marked relief of symptoms ca1 Intake: 15:30 IV: 1000ml; Total: 1000ml. ca1 Outcome: 16:10 Discharge ordered by . pm1 16:28 Discharged to home ambulatory, with significant other. ca1 16:28 Condition: stable 16:28 Discharge instructions given to patient, Instructed on discharge instructions, follow up and referral plans. medication usage, Demonstrated understanding of instructions, follow-up care, medications, Prescriptions given X 2. 16:29 Patient left the ED. ca1 Signatures: Christian Avendaño, GANG MOWER OPERATOR GANG MOWER OPERATOR pm1 Lilian Gross RN RN tw2 Alesha Rendon 5 Alejandrina Benítez 3 Mora Duenas RN RN ca1
[2020-11-29 16:58] VITALS: TEMP 97.8
[2020-11-29 17:00] VITALS: O2SAT 99
[2020-11-29 17:01] VITALS: BP 136/88
== END 2020-11-29 16:29 | disposition home or self-care (01) ==
LOC: ER 13:21
DX: O21.9 Vomiting of pregnancy, unspecified (principal); Z3A.00 Weeks of gestation of pregnancy not specified; Z88.5 Allergy status to narcotic agent; Z88.6 Allergy status to analgesic agent; Z91.018 Allergy to other foods
CPT/HCPCS: 96361; 80048; 36415; 96375; 96374; 99284; J2550; J1200; J7030

== ENCOUNTER 2020-12-09 09:55 | Emergency (ER) | payer MEDICAID ==
--- OUTSIDE RECORDS SUMMARY | 2020-12-09 09:57 | XMS REPORT | Continuity of Care Document ---
:1990 Author Organization [facility] t Address [address] [place] [address] Care Team Providers Name Role Phone Clarice Urbano Attending Clinician Problems This patient has no known problems. Allergies, Adverse Reactions, Alerts This patient has no known allergies or adverse reactions. Medications This patient has no known medications. Procedures This patient has no known procedures. Encounters Start End Encounter Admission Attending Care Care Encounter Source Date/Time Date/Time Type Type Clinicians Facility Department ID 2020-12-08 2020-12-08 Telephone AMBAR Burks [id number] 00:00:00 00:00:00 Graciela Oneil STAFF COUNSEL [id number] [facility] [id number] MATERNAL [id number] & CHILD [address] [place] [address] Results This patient has no known results.
--- OUTSIDE RECORDS SUMMARY | 2020-12-09 10:10 | XMS REPORT | Summary of Care ---
:1990 Author Organization [facility] Address [address] [place] [address] Care Team Providers Name Role Phone Saravia, E Insurance Hmo Lauren Fernandez [facility] Primary Care Provider Reason for Visit Reason Comments Rx Concern/Question Encounter Details Date Type Department Care Team Description 12/01/2020 Telephone [facility]- Cornelius Fernandez, Rx Concern/Question [facility] [address] [facility] [address] [place] [address] [place] [address] Allergies Active Allergy Reactions Severity Noted Date Comments Ibuprofen Hives 04/15/2014 [place] Hives 04/15/2014 Sodium Citrate (Bulk) Nausea and/or Vomiting 9 documented as of this encounter (statuses as of 12/02/2020) Medications Medication Sig Dispensed Refills Start Date End Date Status vit Take 1 Packet by 30 Each 6 08/03/2020 Active 06-lupr-rjntb-dha mouth daily. (SELECT-OB + DHA) 29 mg [...] as of this encounter (statuses as of 12/02/2020) Active Problems Problem Noted Date History of delivery 10/24/2020 History of cholecystectomy 10/24/2020 Cholelithiasis affecting in second trimester , antepartum 10/12/2020 Gallstones 10/11/2020 Overview: Added automatically from request for brea schmidty [id number] Nausea & vomiting 09/10/2020 9 weeks gestation [...] Obesity in 01/25/2015 Overview: ICD10 Diagnosis Term Licensed Clinician Utility Encounter for IUD removal and reinsertion 01/18/2015 ASCUS on Pap smear 04/15/2014 Estimated Date of Delivery Comments Yes 04/11/2021 Based on Ultrasound, FHT: 127, Transverse Presentation, Placen ta Too early to evaulate documented as of this encounter (statuses as of 12/02/2020) Resolved Problems Problem Noted Date Resolved Date [...] management 01/25/2015 05/20/2018 Overview: ICD10 Diagnosis Term Licensed Clinician Utility Breast tenderness in female 01/25/2015 05/20/2018 Not immune to rubella 04/16/2014 06/04/2016 Overview: ICD10 Diagnosis Term Licensed Clinician Utility documented as of this encounter (statuses as of 12/02/2020) Immunizations Name Administration Dates Next Due HPV9 [...] with No / Unsure 11/22/2020 1:54 PM 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 documented as of this encounter Last Filed Vital Signs Not on filedocumented in this encounter Miscellaneous Notes Telephone Encounter - Alfreda Vaughn LVN - 12/02/2020 11:36 AM Chana Fuentes is a 30 year old female Call placed to [facility] with [place], informed her the start date for [place] for patient. DEVELOPER Telephone Encounter - Alfreda Vaughn LVN - 12/01/2020 4:34 PM Chana Fuentes is a 30 year old female Call placed to [place], no answer, left vm. elephone Encounter - [place] - 12/01/2020 2:08 PM [facility] eleni injection. documented in this encounter Plan of Treatment Date Type Specialty Care Team Description 12/13/2020 Fashion Consultant Visit Maternal Marisel Galvan, Medicine [address] [place], [place] [address] 12/23/2020 Routine Visit OB Satellites Akinsipe, Flora guo C, WHCNP [address] [facility] [place], [place] [address] [phone] Health Maintenance Due Date Last Done Comments [...] Address T e Group Dates ASIA BETANCOURT [id number] 2018-Anupama HIDALGO Medic [place] [id number] MANA[place]ED MEDICA[place], [place] documented as of this encounter Advance Directives Type Date Recorded 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
--- OUTSIDE RECORDS SUMMARY | 2020-12-09 10:11 | XMS REPORT | Summary of Care ---
:1990 Author Organization [facility] Address [address] [place] [address] Care Team Providers Name Role Phone Meera Saravia Insurance Hmo Lauren Fernandez Primary Care Provider Reason for Visit Reason Comments Assessment brodie injection Encounter Details Date Type Department Care Team Description 12/08/2020 Telephone [facility] SHAWNP- Graciela Burks Ass essment (brodie [place] C, WHCNP injection) [address] [facility] [address] [facility] [place], [place] [phone] Allergies Active Allergy Reactions Severity Noted Date Comments Ibuprofen Hives 04/15/2014 [place] Hives 04/15/2014 Sodium Citrate (Bulk) Nausea and/or Vomiting 9 documented as of this encounter (statuses as of 12/08/2020) Medications Medication Sig Dispensed Refills Start Date End Date Status vit Take 1 Packet by 30 Each 6 08/03/2020 Active 55-nfzn-zhuhv-dha mouth daily. 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 Utility Encounter for IUD removal and reinsertion 01/18/2015 ASCUS on Pap smear 04/15/2014 Estimated Date of Delivery Comments Yes 04/11/2021 Based on Ultrasound, FHT: 127, Transverse Presentation, Placen ta Too early to evaulate documented as of this encounter (statuses as of 12/08/2020) Resolved Problems Problem Noted Date Resolved Date 37 weeks gestation of 12/18/2018 01/08/20 19 [place] Hick's contraction 12/12/2018 01/08/2019 Abnormal maternal glucose [...] management 01/25/2015 05/20/2018 Overview: ICD10 Diagnosis Term Auditing Coder Utility Breast tenderness in female 01/25/2015 05/20/2018 Not immune to rubella 04/16/2014 06/04/2016 Overview: ICD10 Diagnosis Term Auditing Coder Utility documented as of this encounter (statuses as of 12/08/2020) Immunizations Name Administration Dates Next Due HPV9 06/04/2016 MMR 12/20/2018 (Deferred: - not available f [facility] pharmacy) TDAP 04/06/2015 TDAP [...] with No / Unsure 11/22/2020 1:54 PM 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 documented as of this encounter Last Filed Vital Signs Not on filedocumented in this encounter Miscellaneous Notes Telephone Encounter - Alfreda Vaughn LVN - 12/08/2020 4:42 PM Chana Nicolemeera is a 30 year old female Patient stated she no longer wants to have brodie injections d/t burning sensation and vomiting after injection. Informed patient burning sensation is expected with injection. Patient verbalized she understood the risk of not having the brodie. Informed will route to provider for notification, verbalized understanding. elephone Encounter - Alfreda Vaughn LVN - 12/08/2020 4:37 PM Chana Nicolemeera is a 30 year old female Call placed to [facility] pharmacy, informed lara that patient has 1 more dose of brodie in clinic but patient is stating she no longer wants to continue. Informed will place call once she talks to provider about decision for refills, verbalized understanding. elephone Encounter - Soham, Ashlie - 12/08/2020 11:24 AM CSTSpoke to patient to try to reschedule [place] shot. She states she does not want to take the shot anymore. She said last time it burned and she was really sore. elephone Encounter - Sindhu Card - 12/08/2020 11:01 AM FIRE TOWER KEEPER [facility] [place] [facility] . Please call Lara [phone] signed by Sindhu Card at 12/08/2020 11:02 AM CSTdocumented in this encounter Plan of Treatment Date Type Specialty Care Team Description 12/13/2020 Riprap Placing Supervisor Visit Maternal Marisel Galvan, Medicine [address] [place], [place] [address] 12/23/2020 Routine Visit OB Satellites [facility] Burks[facility] [address] [place], [place] [address] [phone] Health Maintenance Due Date Last Done Comments [...] Subscriber ID Effective Phone Address T [facility] Group Dates ASIA BETANCOURT [id number] 2018-Anupama HIDALGO Medic aid [facility] [place] [id number] MANAGED MEDICAID [place], [place] documented as of this encounter Advance Directives Type Date Recorded 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
--- OUTSIDE RECORDS SUMMARY | 2020-12-09 10:11 | XMS REPORT | Summary of Care ---
:1990 Author Organization [facility] Address [address] [place] [address] Care Team Providers Name Role Phone Gamal Saravia Insurance Hmo Lauren Fernandez Primary Care Provider Reason for Visit Reason Comments Assessment brodie injection Encounter Details Date Type Department Care Team Description 12/08/2020 Telephone [facility] SHAWNP- Graciela Burks Ass essment (brodie [place] [employer] C, WHCNP injection) [address] [place] [address] [facility] [place], [place] [phone] Allergies Active Allergy Reactions Severity Noted Date Comments Ibuprofen Hives 04/15/2014 [place] Hives 04/15/2014 Sodium Citrate (Bulk) Nausea and/or Vomiting 9 documented as of this encounter (statuses as of 12/09/2020) Medications Medication Sig Dispensed Refills Start Date End Date Status vit Take 1 Packet by 30 Each 6 08/03/2020 Active 42-uwch-vmzlz-dha mouth daily. 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 Encounter for IUD removal and reinsertion 01/18/2015 ASCUS on Pap smear 04/15/2014 Estimated Date of Delivery Comments Yes 04/11/2021 Based on Ultrasound, FHT: 127, Transverse Presentation, Placen ta Too early to evaulate documented as of this encounter (statuses as of 12/09/2020) Resolved Problems Problem Noted Date Resolved Date 37 weeks gestation of 12/18/2018 01/08/20 19 [place] Hick's contraction 12/12/2018 01/08/2019 Abnormal maternal glucose [...] management 01/25/2015 05/20/2018 Overview: ICD10 Diagnosis Term Airplane Patroller Utility Breast tenderness in female 01/25/2015 05/20/2018 Not immune to rubella 04/16/2014 06/04/2016 Overview: ICD10 Diagnosis Term 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 documented as of this encounter Last Filed Vital Signs Not on filedocumented in this encounter Miscellaneous Notes Telephone Encounter - Cornelius Fernandez FNP - 12/09/2020 7:30 AM CSTNoted, ,will inform MFM. elephone Encounter - Alfreda Vaughn LVN - 12/08/2020 4:42 PM EDITING CLERK Suraj Mauricio Clotilde Fuentes is a 30 year old female Patient stated she no longer wants to have brodie injections d/t burning sensation and vomiting after injection. Informed patient burning sensation is expected with injection. Patient verbalized she understood the risk of not having the brodie. Informed will route to provider for notification, verbalized understanding. elephone Encounter - Alfreda Vaughn LVN - 12/08/2020 4:37 PM Chana Mauricio Clotilde Fuentes is a 30 year old female [facility], informed lara that patient has 1 more dose of brodie in clinic but patient is stating she no longer wants to continue. Informed will place call once she talks to provider about decision for refills, verbalized understanding. elephone Encounter - Alesha Rousseau - 12/08/2020 11:24 AM CSTSpoke to patient to try to reschedule [place] shot. She states she does not want to take the shot anymore. She said last time it burned and she was really sore. elephone Encounter - Sindhu Card - 12/08/2020 11:01 AM EDITING CLERK [facility] Brodie [facility] . Please call Lara [phone] signed by Sindhu Card at 12/08/2020 11:02 AM CSTdocumented in this encounter Plan of Treatment Date Type Specialty Care Team Description 12/13/2020 Electronic Commerce Specialist Visit Maternal Marisel Galvan, Medicine [address] [place], [place] [address] 12/23/2020 Routine Visit OB Satellites Flora Burks, CNP [address] [place] [id number] [phone] Health Maintenance Due Date Last Done Comments [...] Effective Phone Address T [facility] Group Dates ASIA BETANCOURT [id number] 2018-Anupama HIDALGO Medic [facility] [place] [phone] [place] documented as of this encounter Advance Directives Type Date Recorded 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
[2020-12-09] MEDS ORDERED: FAMOTIDINE 20 MG/2 ML VIAL IV ONE (10:21)
[2020-12-09] MEDS ORDERED: NA CHLORIDE 0.9% 1,000 ML ONE ×2 (10:21→11:42)
[2020-12-09] MEDS ORDERED: DIPHENHYDRAMINE 50 MG/ML VIAL ONE (10:21)
[2020-12-09] MEDS ORDERED: ONDANSETRON 4 MG/2 ML VIAL ONE ×2 (10:21→11:32)
[2020-12-09 10:22] LABS: Absolute Lymphocytes (CBC) 1.7 K/uL (0.7-4.9); Basophils % 0.2 % (0-1.3); Hematocrit 38.2 % (36.0-45.0); MPV 8.1 fL (7.6-11.3); RBC Red Blood Cell Count 4.18 M/uL (3.86-4.86)
[2020-12-09 10:41] LABS: ALT/SGPT 9 U/L (12-78); AST/SGOT 11 U/L (15-37); Albumin 2.8 g/dL (3.4-5.0); Alkaline Phosphatase 50 U/L (45-117); BUN Blood Urea Nitrogen 6 mg/dL (7-18); Bicarbonate 23 mmol/L (21-32); Bilirubin Direct < 0.1 mg/dL (0-0.2); Bilirubin Total 0.3 mg/dL (0.2-1.0); Glucose Level 83 mg/dL (74-106); Lipase 57 U/L (73-393); Potassium 3.8 mmol/L (3.5-5.1); Protein, Total 6.6 g/dL (6.4-8.2); Sodium Level 139 mmol/L (136-145)
[2020-12-09] MEDS ORDERED: PROMETHAZINE INJ 25 MG/ML AMP ONE (12:16)
[2020-12-09 12:47] LABS: Urine Blood NEGATIVE (NEG); Urine Glucose NEGATIVE (NEG); Urine Protein NEGATIVE (NEG); Urine Specific Gravity >1.030 (1.005-1.030); Urine pH 7.5 (5.0-7.0)
--- NOTE | 2020-12-09 13:59 | ER ---
Nurse's Notes [facility] Name: Suraj Fuentes Age: 30 yrs Sex: Female : 1990 Arrival Date: 12/09/2020 Time: 09:59 Bed 23 Private MD: Diagnosis: Vomiting Presentation: 12/09 10:00 Chief complaint: EMS states: N/V since this morning, also reports chest pain that em radiates into right side, reports being 22 weeks that has ran out her Zofran 2 days ago. Coronavirus screen: Client denies travel out of the [place] in the last 14 days. Ebola Screen: Patient negative for fever greater than or equal to 101.5 degrees Fahrenheit, and additional compatible Ebola Virus Disease symptoms Patient denies exposure to infectious person. Patient denies travel to an Ebola-affected area in the 21 days before illness onset. No symptoms or risks identified at this time. Initial Sepsis Screen: Does the patient meet any 2 criteria? HR > 90 bpm. No. Patient's initial sepsis screen is negative. Does the patient have a suspected source of infection? No. Patient's initial sepsis screen is negative. Risk Assessment: Do you want to hurt yourself or someone else? Patient reports no desire to harm self or others. Onset of symptoms was December 09, 2020. 10:00 Method Of Arrival: EMS: [facility] em 10:00 Acuity: SHAW 3 em Historical: - Allergies: 10:03 Demerol; em 10:03 Ibuprofen; em 10:03 ORANGES; em - Home Meds: 10:03 Zofran Oral [Active]; em - PMHx: 10:03 GALLSTONES; hyperemesis gravidarum; Pancreatitis; em - PSHx: 10:03 Cholecystectomy; Appendectomy; em - Immunization history:: Adult Immunizations up to date. - Social history:: Smoking status: Patient denies any tobacco usage or history of. Screenin:00 Abuse screen: Denies threats or abuse. Nutritional screening: No deficits noted. em Tuberculosis screening: No symptoms or risk factors identified. Fall Risk None identified. Assessment: 10:00 General: Appears in no apparent distress. comfortable, Behavior is calm, cooperative, em appropriate for age. Pain: Complains of pain in abdomen Pain currently is 10 out of 10 on a pain scale. Neuro: Level of Consciousness is awake, alert, obeys commands, Oriented to person, place, time, situation. Cardiovascular: Capillary refill < 3 seconds Patient's skin is warm and dry. Respiratory: Airway is patent Respiratory effort is even, unlabored, Respiratory pattern is regular, symmetrical. GI: Abdomen is round non-distended, Reports diarrhea, nausea, vomiting. Derm: Skin is intact, is healthy with good turgor, Skin is pink, warm \T\ dry. Musculoskeletal: Capillary refill < 3 seconds, Range of motion: intact in all extremities. 11:12 Reassessment: reports N/V and abd pain still there, provider notified. em 12:00 Reassessment: Patient appears in no apparent distress at this time. Patient and/or em family updated on plan of care and expected duration. Pain level reassessed. Patient is alert, oriented x 3, equal unlabored respirations, skin warm/dry/pink. Vital Signs: 10:00 BP 138 / 96; Pulse 95; Resp 18; Temp 97.8; Pulse Ox 97% on R/A; Weight 74.84 kg; Height em 5 ft. 4 in. (162.56 cm); Pain 10/10; 11:21 BP 119 / 59; Pulse 81; Resp 18; Pulse Ox 99% on R/A; em 12:30 BP 136 / 80; Pulse 88; Resp 18; Pulse Ox 97% on R/A; em 10:00 Body Mass Index 28.32 (74.84 kg, 162.56 cm) ED Course: 09:59 Patient arrived in ED. em 09:59 Topher Richmond PA is PHCP. [facility] 09:59 Sharath Rod MD is Attending Physician. [facility] 10:00 Patient has correct armband on for positive identification. Bed in low position. Call em light in reach. Side rails up X2. Adult w/ patient. Pulse ox on. NIBP on. 10:02 Triage completed. em 10:03 Nathan Rosario, RN is Primary Nurse. em 10:03 Arm band placed on. em 10:15 Initial lab(s) drawn, by il, sent to lab. Inserted saline lock: 20 gauge in right em forearm, using aseptic technique. Blood collected. 14:12 No provider procedures requiring assistance completed. IV discontinued, intact, vg1 bleeding controlled, No redness/swelling at site. Pressure dressing applied. Administered Medications: 10:15 Drug: NS 0.9% 1000 ml Route: IV; Rate: 1 bolus; Site: right forearm; em 12:14 Follow up: IV Status: Completed infusion; IV Intake: 1000ml em 10:15 Drug: Zofran (Ondansetron) 4 mg Route: IVP; Site: right forearm; em 12:14 Follow up: Response: No adverse reaction em 10:17 Drug: diphenhydrAMINE 50 mg Route: IVP; Site: right forearm; em 13:37 Follow up: Response: No adverse reaction em 10:18 Drug: Pepcid 20 mg Route: IVP; Site: right forearm; em 11:51 Follow up: Response: No adverse reaction em 11:21 Drug: Zofran (Ondansetron) 4 mg Route: IVP; Site: right forearm; em 12:20 Follow up: Response: No adverse reaction; No change in condition em 11:30 Drug: NS 0.9% 1000 ml Route: IV; Rate: 1 bolus; Site: right forearm; em 13:39 Follow up: IV Status: Completed infusion; IV Intake: 1000ml em 12:21 Drug: Promethazine 12.5 mg Route: IVP; Site: right forearm; em 13:30 Follow up: Response: No adverse reaction; Marked relief of symptoms em Intake: 12:14 IV: 1000ml; Total: 1000ml. em 13:39 IV: 1000ml; Total: 2000ml. em Outcome: 13:59 Discharge ordered by . yang 14:12 Discharged to home ambulatory. vg1 14:12 Condition: stable 14:12 Discharge instructions given to patient, Instructed on discharge instructions, follow up and referral plans. medication usage, Demonstrated understanding of instructions, follow-up care, medications, Prescriptions given X 1. 14:16 Patient left the ED. vg1 Signatures: Topher Richmond PA PA jmm Munoz, Edgar, RN RN Nilda Palacios RN RN vg1
--- NOTE | 2020-12-09 13:59 | EDPHYS ---
Physician Documentation [facility] Name: Suraj Fuentes Age: 30 yrs Sex: Female : 1990 Arrival Date: 12/09/2020 Time: 09:59 Bed 23 Private MD: ED Physician Sharath Rod HPI: 12/09 10:16 This 30 yrs old Female presents to ER via EMS with complaints of jmm Nausea/Vomiting, Chest Pain. 10:16 The patient presents to the emergency department with nausea, vomiting, abdominal pain. jmm Onset: The symptoms/episode began/occurred gradually, today. Possible causes: . The symptoms are aggravated by nothing. The symptoms are alleviated by nothing. Associated signs and symptoms: Pertinent positives: abdominal pain. The patient has experienced similar episodes in the past, several times. Historical: - Allergies: 10:03 Demerol; em 10:03 Ibuprofen; em 10:03 ORANGES; em - Home Meds: 10:03 Zofran Oral [Active]; em - PMHx: 10:03 GALLSTONES; hyperemesis gravidarum; Pancreatitis; em - PSHx: 10:03 Cholecystectomy; Appendectomy; em - Immunization history:: Adult Immunizations up to date. - Social history:: Smoking status: Patient denies any tobacco usage or history of. ROS: 10:16 Constitutional: Negative for fever, chills, and weight loss. jmm 10:16 Cardiovascular: Positive for chest pain, with movement. 10:16 Abdomen/GI: Positive for abdominal pain, vomiting. 10:16 All other systems are negative. Exam: 10:16 Constitutional: This is a well developed, well nourished patient who is awake, alert, jmm and in no acute distress. Head/Face: atraumatic. Eyes: EOMI, no conjunctival erythema appreciated ENT: Moist Mucus Membranes Neck: Trachea midline, Supple Chest/axilla: Normal chest wall appearance and motion. Cardiovascular: Regular rate and rhythm. No edema appreciated Respiratory: Normal respirations, no respiratory distress appreciated Abdomen/GI: Non distended, soft Back: Normal ROM Skin: General appearance color normal MS/ Extremity: Moves all extremities, no obvious deformities appreciated, no edema noted to the lower extremities Neuro: Awake and alert, normal gait Psych: Behavior is normal, Mood is normal, Patient is cooperative and pleasant Vital Signs: 10:00 BP 138 / 96; Pulse 95; Resp 18; Temp 97.8; Pulse Ox 97% on R/A; Weight 74.84 kg; Height em 5 ft. 4 in. (162.56 cm); Pain 10/10; 11:21 BP 119 / 59; Pulse 81; Resp 18; Pulse Ox 99% on R/A; em 12:30 BP 136 / 80; Pulse 88; Resp 18; Pulse Ox 97% on R/A; em 10:00 Body Mass Index 28.32 (74.84 kg, 162.56 cm) em MDM: 10:06 Patient medically screened. [facility] 13:56 Data reviewed: vital signs, nurses notes. Counseling: I had a detailed discussion with [facility] the patient and/or guardian regarding: the historical points, exam findings, and any diagnostic results supporting the discharge/admit diagnosis, lab results, the need for outpatient follow up, to return to the emergency department if symptoms worsen or persist or if there are any questions or concerns that arise at home. ED course: Symptoms improved in the ED. I do not suspect an acute intraabdominal process. Patient has had similar presentation throughout her . Labs unremarkable. Patient is advised to follow up with ob for reevaluation. Patient understood and agrees with the plan of care. . 12/09 10:00 Order name: Basic Metabolic Panel; Complete Time: 10:43 [facility] 12/09 10:00 Order name: CBC with Diff; Complete Time: 10: [facility] 12/09 10:00 Order name: Hepatic Function; Complete Time: 10: [facility] 12/09 10:00 Order name: Lipase; Complete Time: : [facility] 12/09 12:04 Order name: Urine Dipstick--Ancillary (enter results); Complete Time: 12:49 dh3 12/09 10:00 Order name: IV Saline Lock; Complete Time: 10: [facility] 12/09 10:00 Order name: Labs collected and sent; Complete Time: 10: [facility] 12/09 10:05 Order name: Urine Dipstick-Ancillary (obtain specimen); Complete Time: 11:51 [facility] 12/09 13:24 Order name: PO challenge; Complete Time: 13:39 [facility] Administered Medications: 10:15 Drug: NS 0.9% 1000 ml Route: IV; Rate: 1 bolus; Site: right forearm; em 12:14 Follow up: IV Status: Completed infusion; IV Intake: 1000ml em 10:15 Drug: Zofran (Ondansetron) 4 mg Route: IVP; Site: right forearm; em 12:14 Follow up: Response: No adverse reaction em 10:17 Drug: diphenhydrAMINE 50 mg Route: IVP; Site: right forearm; em 13:37 Follow up: Response: No adverse reaction em 10:18 Drug: Pepcid 20 mg Route: IVP; Site: right forearm; em 11:51 Follow up: Response: No adverse reaction em 11:21 Drug: Zofran (Ondansetron) 4 mg Route: IVP; Site: right forearm; em 12:20 Follow up: Response: No adverse reaction; No change in condition em 11:30 Drug: NS 0.9% 1000 ml Route: IV; Rate: 1 bolus; Site: right forearm; em 13:39 Follow up: IV Status: Completed infusion; IV Intake: 1000ml em 12:21 Drug: Promethazine 12.5 mg Route: IVP; Site: right forearm; em 13:30 Follow up: Response: No adverse reaction; Marked relief of symptoms em Disposition: 12/09/20 13:59 Discharged to Home. Impression: Vomiting. - Condition is Stable. - Discharge Instructions: Nausea and Vomiting, Adult, Eating Plan for Hyperemesis Gravidarum. - Prescriptions for Zofran ODT 4 mg Oral tablet,disintegrating - place 1 tablet by TRANSLINGUAL route every 4-6 hours; 20 tablet. SCOPOLAMINE transdermal 1 mg - apply 1 patch by TRANSDERMAL route every 3 days; 30 Transdermal Patch. - Medication Reconciliation Form, Thank You Letter, Antibiotic Education, Prescription Opioid Use form. - Follow up: Private Physician; When: 2 - 3 days; Reason: Recheck today's complaints, Continuance of care, Re-evaluation by your physician. Addendum: 12/10/2020 14:19 Co-signature as Attending Physician, Sharath Rod MD I agree with the assessment and k dr plan of care. Signatures: Dispatcher [employer] Sharath Ng MD MD kdr Mickail, Joel, PA PA jmm Munoz, Edgar, RN RN em Rashaad, Nilda, RN RN vg1 Corrections: (The following items were deleted from the chart) 12/09 14:16 13:59 12/09/2020 13:59 Discharged to Home. Impression: Vomiting. Condition is Stable. vg1 Forms are Medication Reconciliation Form, Thank You Letter, Antibiotic Education, Prescription Opioid Use. Follow up: Private Physician; When: 2 - 3 days; Reason: Recheck today's complaints, Continuance of care, Re-evaluation by your physician. yang
[2020-12-09 14:26] VITALS: TEMP 97.8
[2020-12-09 14:28] VITALS: BP 136/80; O2SAT 97
== END 2020-12-09 14:16 | disposition home or self-care (01) ==
LOC: ER 09:55
DX: O21.2 Late vomiting of pregnancy (principal); Z3A.22 22 weeks gestation of pregnancy; Z88.5 Allergy status to narcotic agent; Z88.6 Allergy status to analgesic agent; Z88.8 Allergy status to other drugs, medicaments and biological substances; Z91.018 Allergy to other foods
CPT/HCPCS: 96361; 85025; 80048; 36415; 80076; 81003; 83690; 96375; 96374; 99284; J2550; J1200; J7030 ×2; J2405 ×2

== ENCOUNTER 2020-12-11 16:25 | Emergency (ER) | payer SELFPAY ==
--- OUTSIDE RECORDS SUMMARY | 2020-12-11 16:27 | XMS REPORT | Continuity of Care Document ---
:1990 Author Organization [facility] t Address [address] [place] [address] Care Team Providers Name Role Phone Clarice [...] 2020-12-08 2020-12-08 Telephone AMBAR Burks [id number] 00:00:00 00:00:00 Graciela Oneil MULE OPERATOR [id number] [facility] [id number] MATERNAL [id number] & CHILD [address] [place] [address] Results This patient has no known results.
--- NOTE | 2020-12-11 18:44 | ER ---
Nurse's Notes [facility] Name: Suraj Fuentes Age: 30 yrs Sex: Female : 1990 Arrival Date: 12/11/2020 Time: 16:26 Bed External Waiting Private MD: Diagnosis: Presentation: 12/11 16:38 Chief complaint: Patient states: N/V and abdominal pain started again today. Almost 23 ll1 weeks . Coronavirus screen: Client denies travel out of the [place] in the last 14 days. At this time, the client does not indicate any symptoms associated with coronavirus-19. Ebola Screen: Patient denies travel to an Ebola-affected area in the 21 days before illness onset. Initial Sepsis Screen: Does the patient meet any 2 criteria? No. Patient's initial sepsis screen is negative. Does the patient have a suspected source of infection? Yes: Acute abdominal pain. Risk Assessment: Do you want to hurt yourself or someone else? Patient reports no desire to harm self or others. Onset of symptoms was December 11, 2020. 16:38 Method Of Arrival: Wheelchair ll1 16:38 Acuity: SHAW 3 ll1 Historical: - Allergies: 16:39 Demerol; ll1 16:39 Ibuprofen; ll1 16:39 ORANGES; ll1 - PMHx: 16:39 GALLSTONES; hyperemesis gravidarum; Pancreatitis; ll1 - PSHx: 16:39 Cholecystectomy; Appendectomy; ll1 - Social history:: Smoking status: Patient denies any tobacco usage or history of. Assessment: 16:47 Reassessment: Pt transported to L\T\D for evaluation per Dr. Teixeira. L\T\D notified. hb Vital Signs: 16:38 BP 130 / 71; Pulse 86; Resp 17; Temp 97.4; Pulse Ox 98% ; Weight 72.57 kg; Height 5 ft. ll1 4 in. (162.56 cm); Pain 10/10; 16:38 Body Mass Index 27.46 (72.57 kg, 162.56 cm) ll1 ED Course: 16:26 Patient arrived in ED. ds1 16:39 Triage completed. ll1 16:39 Arm band placed on Patient placed in an exam room, on a stretcher. ll1 Administered Medications: No medications were administered Outcome: 18:44 Patient left the ED. hb Signatures: Natalia Lizarraga ds1 Kimberly Landeros RN RN hb Bill Hudson RN RN ll1
[2020-12-11 18:56] VITALS: BP 130/71; TEMP 97.4; O2SAT 98
== END 2020-12-11 18:44 | disposition left against medical advice (07) ==
LOC: ER 16:25
DX: Z02.9 Encounter for administrative examinations, unspecified (principal)
CPT/HCPCS: 99281

== ENCOUNTER 2020-12-15 10:59 | Emergency (ER) | payer MEDICAID ==
--- OUTSIDE RECORDS SUMMARY | 2020-12-15 11:06 | XMS REPORT | Continuity of Care Document ---
:1990 Author Organization [facility] t Address [address] [place] [address] Care Team Providers Name Role Phone Ultrasound Attending Clinician Unavailable Lauren Thomas Attending Clinician Clarice Urbano Attending Clinician Problems This patient has no known problems. Allergies, Adverse Reactions, Alerts This patient has no known allergies or adverse reactions. Medications This patient has no known medications. Procedures This patient has no known procedures. Encounters Start End Encounter Admission Attending Care Care Encounter Source Date/Time Date/Time Type Type Clinicians Facility Department ID 2020-12-13 2020-12-13 [employer] AMBAR Spann [id number] 14:13:47 14:43:47 Visit SethJuanis WHOLESALE ACCOUNT MANAGER [id number] [facility] [id number] MATERNAL [id number] & CHILD [address] [place] [address] 2020-12-13 2020-12-13 Abstract AMBAR Fernandez [id number] 00:00:00 00:00:00 Cornelius Aguilar WHOLESALE ACCOUNT MANAGER [id number] [facility] [id number] MATERNAL [id number] & CHILD [address] [facility] 2020-12-08 2020-12-08 [facility] [id number] 00:00:00 00:00:00 Graciela Oneil WHOLESALE ACCOUNT MANAGER [id number] [facility] [id number] MATERNAL [id number] & CHILD [address] [facility] Results This patient has no known results.
[2020-12-15] MEDS ORDERED: NA CHLORIDE 0.9% 1,000 ML ONE (14:36)
[2020-12-15] MEDS ORDERED: ONDANSETRON 4 MG/2 ML VIAL ONE (14:36)
[2020-12-15 15:05] LABS: Absolute Lymphocytes (CBC) 1.6 K/uL (0.7-4.9); Basophils % 0.3 % (0-1.3); Hematocrit 39.5 % (36.0-45.0); Lymphocytes % 16.2 % (15.3-44.8); MPV 8.1 fL (7.6-11.3); RBC Red Blood Cell Count 4.26 M/uL (3.86-4.86)
[2020-12-15 15:21] LABS: ALT/SGPT 9 U/L (12-78); Albumin 3.1 g/dL (3.4-5.0); Alkaline Phosphatase 48 U/L (45-117); BUN Blood Urea Nitrogen 7 mg/dL (7-18); Bicarbonate 23 mmol/L (21-32); Bilirubin Direct < 0.1 mg/dL (0-0.2); Bilirubin Total 0.5 mg/dL (0.2-1.0); Glucose Level 77 mg/dL (74-106); Lipase 41 U/L (73-393); Sodium Level 139 mmol/L (136-145)
[2020-12-15 15:22] LABS: AST/SGOT 19 U/L (15-37); Potassium 4.1 mmol/L (3.5-5.1)
--- NOTE | 2020-12-15 15:29 | EDPHYS ---
Physician Documentation [facility] Name: Suraj Fuentes Age: 30 yrs Sex: Female : 1990 Arrival Date: 12/15/2020 Time: 11:05 Bed 13 Private MD: ED Physician Ye Corcoran HPI: 12/15 15:31 This 30 yrs old Female presents to ER via Wheelchair with complaints of tw4 Nausea/Vomiting, Abdominal Pain. 15:31 The patient presents to the emergency department with nausea, that is moderate, with tw4 "dry heaves", vomiting. Onset: The symptoms/episode began/occurred yesterday. 15:31 Possible causes: . The symptoms are aggravated by nothing. The symptoms are tw4 alleviated by nothing. Associated signs and symptoms: The patient has no apparent associated signs or symptoms. Severity of symptoms: At their worst the symptoms were moderate in the emergency department the symptoms are unchanged. The patient has not experienced similar symptoms in the past. Historical: - Allergies: 12:04 Demerol; ll1 12:04 Ibuprofen; ll1 12:04 ORANGES; ll1 - PMHx: 12:04 GALLSTONES; hyperemesis gravidarum; Pancreatitis; ll1 - PSHx: 12:04 Cholecystectomy; Appendectomy; ll1 - Immunization history:: Flu vaccine is not up to date. - Social history:: Smoking status: Patient denies any tobacco usage or history of. ROS: 15:31 Constitutional: Negative for fever, chills, and weight loss, Eyes: Negative for injury, tw4 pain, redness, and discharge, Cardiovascular: Negative for chest pain, palpitations, and edema, Respiratory: Negative for shortness of breath, cough, wheezing, and pleuritic chest pain, Back: Negative for injury and pain, MS/Extremity: Negative for injury and deformity, Skin: Negative for injury, rash, and discoloration, Neuro: Negative for headache, weakness, numbness, tingling, and seizure. 15:31 Abdomen/GI: Positive for abdominal pain, nausea and vomiting, Negative for diarrhea, constipation, abdominal cramps, abdominal distension, anorexia, dysphagia, hematemesis, black/tarry stool, rectal pain. Exam: 15:31 Constitutional: This is a well developed, well nourished patient who is awake, alert, tw4 and in no acute distress. Head/Face: Normocephalic, atraumatic. Chest/axilla: Normal chest wall appearance and motion. Nontender with no deformity. No lesions are appreciated. Cardiovascular: Regular rate and rhythm with a normal S1 and S2. No gallops, murmurs, or rubs. Normal PMI, no JVD. No pulse deficits. Respiratory: Lungs have equal breath sounds bilaterally, clear to auscultation and percussion. No rales, rhonchi or wheezes noted. No increased work of breathing, no retractions or nasal flaring. Abdomen/GI: Soft, non-tender, with normal bowel sounds. No distension or tympany. No guarding or rebound. No evidence of tenderness throughout. Skin: Warm, dry with normal turgor. Normal color with no rashes, no lesions, and no evidence of cellulitis. MS/ Extremity: Pulses equal, no cyanosis. Neurovascular intact. Full, normal range of motion. Neuro: Awake and alert, GCS 15, oriented to person, place, time, and situation. Cranial nerves II-XII grossly intact. Motor strength 5/5 in all extremities. Sensory grossly intact. Cerebellar exam normal. Normal gait. Vital Signs: 12:04 BP 127 / 83; Pulse 105; Resp 18; Temp 98.0; Pulse Ox 99% ; Weight 72.57 kg; Height 5 ll1 ft. 4 in. (162.56 cm); Pain 8/10; 12:04 Body Mass Index 27.46 (72.57 kg, 162.56 cm) ll1 MDM: 14:10 Patient medically screened. tw4 15:31 Differential diagnosis: Nonspecific abd pain, gastritis, cholecystitis, pancreatitis. tw4 Data reviewed: vital signs, nurses notes. Data interpreted: monitor technician: rhythm is normal sinus rhythm, Pulse oximetry: Interpretation:. Counseling: I had a detailed discussion with the patient and/or guardian regarding: the historical points, exam findings, and any diagnostic results supporting the discharge/admit diagnosis, lab results. Special discussion: I discussed with the patient/guardian in detail that at this point there is no indication for admission to the hospital. It is understood, however, that if the symptoms persist or worsen the patient needs to return immediately for re-evaluation. 12/15 14:00 Order name: Basic Metabolic Panel; Complete Time: 15:25 12/15 15:25 Interpretation: Normal except: CL 110. 12/15 14:00 Order name: CBC with Diff; Complete Time: 15:25 12/15 15:25 Interpretation: Normal except: WBC 10.0; ANGELITO% 78.8. 12/15 14:00 Order name: Hepatic Function; Complete Time: 15:25 12/15 15:25 Interpretation: Normal except: ALT 9; ALB 3.1; GLOB 3.9; A/G 0.8. 12/15 14:00 Order name: Lipase; Complete Time: 15:25 12/15 15:25 Interpretation: Normal except: LIP 41. 12/15 14:00 Order name: IV Saline Lock; Complete Time: 15:21 12/15 14:00 Order name: Labs collected and sent; Complete Time: 15:21 tw4 Administered Medications: 14:20 Not Given (Patient Refused; pt nauseous): Tylenol 1000 mg PO once tw2 15:21 Drug: Zofran (Ondansetron) 4 mg Route: IVP; Site: right hand; sv 16:00 Follow up: Response: No adverse reaction; Marked relief of symptoms; Nausea is decreasedsv 15:21 Drug: NS 0.9% 1000 ml Route: IV; Rate: 1 bolus; Site: right hand; sv 16:30 Follow up: Response: No adverse reaction; IV Status: Completed infusion; IV Intake: sv 900ml Disposition: 12/15/20 15:29 Discharged to Home. Impression: Hyperemesis gravidarum with metabolic disturbance. - Condition is Stable. - Discharge Instructions: Hyperemesis Gravidarum, Morning Sickness, [id number]. - Prescriptions for ondansetron 4 mg Oral tablet,disintegrating - take 2 tablet by ORAL route every 8 hours; 20 tablet. - Medication Reconciliation Form, Thank You Letter, Antibiotic Education, Prescription Opioid Use form. - Follow up: Private Physician; When: Upon discharge from the Emergency Department; Reason: Recheck today's complaints, Continuance of care, Re-evaluation by your physician. - Problem is new. - Symptoms have improved. Signatures: Dispatcher [employer] Brittney Nichols RN RN sv Smirch, Shelby, RN RN ss Ye Corcoran MD MD tw4 Bill Hudson RN RN ll1 Lilian Gross RN tw2 Corrections: (The following items were deleted from the chart) 16:34 15:29 12/15/2020 15:29 Discharged to Home. Impression: Hyperemesis gravidarum with ss metabolic disturbance. Condition is Stable. Forms are Medication Reconciliation Form, Thank You Letter, Antibiotic Education, Prescription Opioid Use. Follow up: Private Physician; When: Upon discharge from the Emergency Department; Reason: Recheck today's complaints, Continuance of care, Re-evaluation by your physician. Problem is new. Symptoms have improved. tw4
--- NOTE | 2020-12-15 15:29 | ER ---
Nurse's Notes [facility] Name: Suraj Fuentes Age: 30 yrs Sex: Female : 1990 Arrival Date: 12/15/2020 Time: 11:05 Bed 13 Private MD: Diagnosis: Hyperemesis gravidarum with metabolic disturbance Presentation: 12/15 12:04 Chief complaint: Patient states: N/V with abd cramping for 1 day. Went to [facility], ll1 baby was checked and fine per patient. 23 weeks . Coronavirus screen: Client denies travel out of the [place] in the last 14 days. At this time, the client does not indicate any symptoms associated with coronavirus-19. Ebola Screen: Patient denies travel to an Ebola-affected area in the 21 days before illness onset. Initial Sepsis Screen: Does the patient meet any 2 criteria? HR > 90 bpm. No. Patient's initial sepsis screen is negative. Does the patient have a suspected source of infection? Yes: Acute abdominal pain. Risk Assessment: Do you want to hurt yourself or someone else? Patient reports no desire to harm self or others. Onset of symptoms was December 15, 2020. 12:04 Method Of Arrival: Wheelchair ll1 12:04 Acuity: SHAW 3 ll1 Triage Assessment: 12:05 General: Appears uncomfortable, ill, Behavior is cooperative, appropriate for age. ll1 Pain: Complains of pain in ABD Pain currently is 8 out of 10 on a pain scale. Quality of pain is described as crampy, Pain began 1 day ago. GI: Abdomen is flat, Reports lower abdominal pain, nausea, vomiting. Historical: - Allergies: 12:04 Demerol; ll1 12:04 Ibuprofen; ll1 12:04 ORANGES; ll1 - PMHx: 12:04 GALLSTONES; hyperemesis gravidarum; Pancreatitis; ll1 - PSHx: 12:04 Cholecystectomy; Appendectomy; ll1 - Immunization history:: Flu vaccine is not up to date. - Social history:: Smoking status: Patient denies any tobacco usage or history of. Screenin:15 Abuse screen: Denies threats or abuse. Denies injuries from another. Nutritional sv screening: No deficits noted. Tuberculosis screening: No symptoms or risk factors identified. Fall Risk None identified. Assessment: 15:15 General: Appears in no apparent distress. uncomfortable, well developed, Behavior is sv calm, cooperative, appropriate for age. Pain: Complains of pain in abdomen Pain currently is 8 out of 10 on a pain scale. Quality of pain is described as crampy, Pain began 1 day ago. Is continuous. Neuro: Level of Consciousness is awake, alert, obeys commands, Oriented to person, place, time, situation, Moves all extremities. Full function Gait is steady. Respiratory: Airway is patent Respiratory effort is even, unlabored, Respiratory pattern is regular, symmetrical. GI: Reports cramping, nausea, vomiting. GI: Abdomen is round. Derm: Skin is intact, Skin is pink, warm \T\ dry. 16:34 Reassessment: Patient appears in no apparent distress at this time. Patient and/or sv family updated on plan of care and expected duration. Pain level reassessed. Patient is alert, oriented x 3, equal unlabored respirations, skin warm/dry/pink. Patient states feeling better. Patient states symptoms have improved. Vital Signs: 12:04 BP 127 / 83; Pulse 105; Resp 18; Temp 98.0; Pulse Ox 99% ; Weight 72.57 kg; Height 5 ll1 ft. 4 in. (162.56 cm); Pain 8/10; 12:04 Body Mass Index 27.46 (72.57 kg, 162.56 cm) ll1 ED Course: 11:05 Patient arrived in ED. ds1 12:03 Arm band placed on. ll1 12:05 Triage completed. ll1 13:59 Ye Corcoran MD is Attending Physician. tw4 14:10 Lilian Gross, RN is Primary Nurse. tw2 14:41 Primary Nurse role handed off by Lilian Gross RN sv 14:41 Brittney Andino, ALFONZO is Primary Nurse. sv 15:00 Missed attempt(s): 22 [facility] Bleeding sv controlled, band aid applied, catheter tip intact. 15:15 Patient has correct armband on for positive identification. Bed in low position. Call sv light in reach. Door closed. Head of bed elevated. 15:15 Inserted saline lock: 22 gauge in right hand, using aseptic technique. Blood collected. sv Flushed right hand with 2 ml normal saline. 16:34 No provider procedures requiring assistance completed. IV discontinued, intact, sv bleeding controlled, No redness/swelling at site. Pressure dressing applied. Administered Medications: 14:20 Not Given (Patient Refused; pt nauseous): Tylenol 1000 mg PO once tw2 15:21 Drug: Zofran (Ondansetron) 4 mg Route: IVP; Site: right hand; sv 16:00 Follow up: Response: No adverse reaction; Marked relief of symptoms; Nausea is decreasedsv 15:21 Drug: NS 0.9% 1000 ml Route: IV; Rate: 1 bolus; Site: right hand; sv 16:30 Follow up: Response: No adverse reaction; IV Status: Completed infusion; IV Intake: sv 900ml Intake: 16:30 IV: 900ml; Total: 900ml. sv Outcome: 15:29 Discharge ordered by . tw4 16:34 Patient left the ED. ss 16:34 Discharged to home ambulatory. sv 16:34 Condition: stable 16:34 Discharge instructions given to patient, Instructed on discharge instructions, follow up and referral plans. medication usage, Demonstrated understanding of instructions, follow-up care, medications, Prescriptions given X 1. Signatures: Brittney Andino, RN RN Natalia Lizarraga ds1 Rita Meza RN RN Lilian Gross RN RN tw2 Ye Corcoran MD MD tw4 Bill Hudson RN RN ll1
[2020-12-15 16:54] VITALS: BP 127/83; TEMP 98; O2SAT 99
== END 2020-12-15 16:34 | disposition home or self-care (01) ==
LOC: ER 10:59
DX: O21.1 Hyperemesis gravidarum with metabolic disturbance (principal); Z3A.23 23 weeks gestation of pregnancy; Z88.5 Allergy status to narcotic agent; Z88.6 Allergy status to analgesic agent; Z91.018 Allergy to other foods
CPT/HCPCS: 96361; 85025; 80048; 36415; 80076; 83690; 96374; 99284; J7030; J2405

== ENCOUNTER 2020-12-21 19:47 | Emergency (ER) | payer MEDICAID ==
--- OUTSIDE RECORDS SUMMARY | 2020-12-21 19:50 | XMS REPORT | Continuity of Care Document ---
:1990 Author Organization [facility] t Address [address] [place] [address] Care Team Providers Name Role Phone Ultrasound [...] Type Clinicians Facility Department ID 2020-12-13 2020-12-13 Purchasing Manager AMBAR Spann [id number] 14:13:47 14:43:47 Visit SethJuanis MANUFACTURING PLANT MANAGER [id number] [facility] [id number] MATERNAL [id number] & CHILD [address] [place] [address] 2020-12-13 2020-12-13 Abstract AMBAR Fernandez [id number] 00:00:00 00:00:00 Cornelius Aguilar MANUFACTURING PLANT MANAGER [id number] [facility] [id number] MATERNAL [id number] & CHILD 107 [facility] 2020-12-08 2020-12-08 [facility] [id number] 00:00:00 00:00:00 Graciela Oneil MANUFACTURING PLANT MANAGER [id number] [facility] [id number] MATERNAL [id number] & CHILD 107 [facility] Results This patient has no known results.
[2020-12-21] MEDS ORDERED: Ringers Lactate 1,000 ML IV ONE (22:27)
[2020-12-21] MEDS ORDERED: PROMETHAZINE INJ 25 MG/ML AMP ONE (22:27)
[2020-12-22] MEDS ORDERED: MORPHINE 4 MG/ML SYR ONE (00:02)
--- NOTE | 2020-12-22 00:29 | ER ---
Nurse's Notes [facility] Name: Suraj Fuentes Age: 30 yrs Sex: Female : 1990 Arrival Date: 12/21/2020 Time: 20:01 Bed 17 Private MD: Diagnosis: Nausea with vomiting, unspecified Presentation: 12/21 20:05 Chief complaint: Patient states: "vomiting and abdominal pain this morning, feel like I rv am going to pass out.". Coronavirus screen: At this time, the client does not indicate any symptoms associated with coronavirus-19. Ebola Screen: No symptoms or risks identified at this time. Initial Sepsis Screen: Does the patient meet any 2 criteria? No. Patient's initial sepsis screen is negative. Does the patient have a suspected source of infection? No. Patient's initial sepsis screen is negative. Risk Assessment: Do you want to hurt yourself or someone else? Patient reports no desire to harm self or others. Onset of symptoms was December 21, 2020 at 08:00. 20:05 Method Of Arrival: Wheelchair rv 20:05 Acuity: SHAW 3 rv Triage Assessment: 22:40 General: Appears in no apparent distress. uncomfortable, Behavior is anxious, crying. 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 - Social history:: Smoking status: Patient denies any tobacco usage or history of. - Family history:: not pertinent. - Hospitalizations: : No recent hospitalization is reported. Screenin:40 Abuse screen: Denies threats or abuse. Denies injuries from another. Nutritional rr5 screening: No deficits noted. Tuberculosis screening: No symptoms or risk factors identified. Fall Risk IV access (20 points). Total Chaidez Fall Scale indicates No Risk (0-24 pts). Assessment: 22:40 General: Appears in no apparent distress. uncomfortable, ill, Behavior is anxious, rr5 crying. 22:40 Pain: Complains of pain in abdomen Pain currently is 10 out of 10 on a pain scale. rr5 Quality of pain is described as aching, Pain began gradually, Is intermittent. Neuro: Level of Consciousness is awake, alert, obeys commands, Oriented to person, place, time, situation. Cardiovascular: Capillary refill < 3 seconds Patient's skin is warm and dry. Respiratory: Airway is patent Respiratory effort is even, unlabored, Respiratory pattern is regular, symmetrical. GI: Abdomen is round non-distended, Abd is soft and non tender Reports lower abdominal pain, upper abdominal pain, nausea, vomiting. : No signs and/or symptoms were reported regarding the genitourinary system. EENT: No signs and/or symptoms were reported regarding the EENT system. Derm: Skin temperature is warm. Musculoskeletal: Capillary refill < 3 seconds. 23:40 Reassessment: Patient appears in no apparent distress at this time. Patient is alert, rr5 oriented x 3, equal unlabored respirations, skin warm/dry/pink. complaining of abdominal pain, ED provider aware. 12/22 00:37 Reassessment: Patient appears in no apparent distress at this time. Patient is alert, rr5 oriented x 3, equal unlabored respirations, skin warm/dry/pink. discharge instruction given and explained without complaints made Patient states feeling better. Patient states symptoms have improved. Vital Signs: 12/21 20:05 BP 124 / 84; Pulse 99; Resp 18; Temp 97.7; Pulse Ox 98% ; Weight 74.84 kg; Height 5 ft. rv 4 in. (162.56 cm); Pain 10/10; 23:30 BP 135 / 79; Pulse 95; Resp 15; Pulse Ox 98% ; rr5 12/22 00:30 BP 121 / 75; Pulse 90; Resp 16; Pulse Ox 99% ; Pain 4/10; rr5 12/21 20:05 Body Mass Index 28.32 (74.84 kg, 162.56 cm) rv ED Course: 12/21 20:01 Patient arrived in ED. am2 20:07 Triage completed. rv 20:08 Arm band placed on right wrist. Patient placed in the treatment room, on a stretcher, rv Patient notified of wait time. 21:58 Zane Herring MD is Attending Physician. rn 22:06 Kenroy Chan RN is Primary Nurse. rr5 22:20 Inserted saline lock: 20 gauge in right forearm, using aseptic technique. rr5 23:00 Patient has correct armband on for positive identification. Bed in low position. rr5 23:00 Pulse ox on. NIBP on. rr5 12/22 00:36 No provider procedures requiring assistance completed. IV discontinued, intact, rr5 bleeding controlled, No redness/swelling at site. Pressure dressing applied. Administered Medications: 12/21 22:20 Drug: Lactated Ringers Solution 1000 ml Route: IV; Rate: 1000 ml; Site: right forearm; rr5 23:40 Follow up: Response: No adverse reaction; IV Status: Completed infusion; IV Intake: rr5 1000ml 22:20 Drug: Phenergan 25 mg Route: IVP; Site: right forearm; rr5 23:30 Follow up: Response: No adverse reaction rr5 12/22 00:00 Drug: morphine 4 mg {Note: rass 0.} Route: IVP; Site: right forearm; rr5 00:30 Follow up: Response: No adverse reaction; Pain is decreased; RASS: Alert and Calm (0) rr5 Intake: 12/21 23:40 IV: 1000ml; Total: 1000ml. rr5 Outcome: 12/22 00:29 Discharge ordered by . rn 00:36 Discharged to home ambulatory. rr5 00:36 Condition: stable 00:36 Discharge instructions given to patient, Instructed on discharge instructions, follow up and referral plans. medication usage, Demonstrated understanding of instructions, follow-up care, medications, Prescriptions given X 1. 00:37 Patient left the ED. rr5 Signatures: Zane Herring MD MD rn Moreno, Amanda am2 Vicente, Ronaldo, RN RN rv Roque, Raymond, RN RN rr5
--- NOTE | 2020-12-22 00:29 | EDPHYS ---
Physician Documentation [facility] Name: Suraj Fuentes Age: 30 yrs Sex: Female : 1990 Arrival Date: 12/21/2020 Time: 20:01 Bed 17 Private MD: ED Physician Zane Herring HPI: 12/21 22:04 This 30 yrs old Female presents to ER via Wheelchair with complaints of rn Abdominal Pain, Nausea/Vomiting. 22:04 The patient presents to the emergency department with nausea, vomiting. Onset: The rn symptoms/episode began/occurred at an unknown time. Possible causes: . The symptoms are aggravated by nothing. The symptoms are alleviated by nothing. Severity of symptoms: At their worst the symptoms were moderate in the emergency department the symptoms are unchanged. The patient has experienced similar episodes in the past. The patient has been recently seen by a physician:. Reports a couple of days of nausea/vomiting again, no trauma, no vaginal bleeding, reports usually gets phenergan or zofran, wants this to stop. No blood in emesis. Abd cramping similar to previous episodes. No fever. Reports has seen her OB recently and no different new to report. . 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 - Social history:: Smoking status: Patient denies any tobacco usage or history of. - Family history:: not pertinent. - Hospitalizations: : No recent hospitalization is reported. ROS: 22:04 Constitutional: Negative for fever, chills, and weight loss, Eyes: Negative for injury, rn pain, redness, and discharge, Neck: Negative for injury, pain, and swelling, Cardiovascular: Negative for chest pain, palpitations, and edema, Respiratory: Negative for shortness of breath, cough, wheezing, and pleuritic chest pain, Abdomen/GI: Negative for constipation Back: Negative for injury and pain, : Negative for injury, bleeding, discharge, and swelling, MS/Extremity: Negative for injury and deformity, Skin: Negative for injury, rash, and discoloration, Neuro: Negative for headache, numbness, tingling, and seizure. Exam: 22:04 Constitutional: This is a well developed, well nourished patient who is awake, alert, rn holding emesis bag, with some non-bloody emesis Head/Face: Normocephalic, atraumatic. ENT: dry MM Cardiovascular: Regular rate and rhythm. No pulse deficits. Respiratory: No increased work of breathing, no retractions or nasal flaring. Abdomen/GI: soft, non-tender, + gravid. No peritoneal signs. Skin: Warm, dry MS/ Extremity: Pulses equal, no cyanosis. Neurovascular intact. Full, normal range of motion. Equal circumference. Neuro: Awake and alert, GCS 15 Vital Signs: 20:05 BP 124 / 84; Pulse 99; Resp 18; Temp 97.7; Pulse Ox 98% ; Weight 74.84 kg; Height 5 ft. rv 4 in. (162.56 cm); Pain 10/10; 23:30 BP 135 / 79; Pulse 95; Resp 15; Pulse Ox 98% ; rr5 12/22 00:30 BP 121 / 75; Pulse 90; Resp 16; Pulse Ox 99% ; Pain 4/10; rr5 12/21 20:05 Body Mass Index 28.32 (74.84 kg, 162.56 cm) rv MDM: 12/21 21:58 Patient medically screened. rn 12/22 00:28 Differential diagnosis: Nonspecific abd pain, hyperemesis, dehydration, discomfort of rn . Data reviewed: vital signs, nurses notes, old medical records, and as a result, I will discharge patient. Counseling: I had a detailed discussion with the patient and/or guardian regarding: the historical points, exam findings, and any diagnostic results supporting the discharge/admit diagnosis, lab results, radiology results, the need for outpatient follow up, to return to the emergency department if symptoms worsen or persist or if there are any questions or concerns that arise at home. Response to treatment: the patient's symptoms have mildly improved after treatment, and as a result, I will discharge patient. Special discussion: I discussed with the patient/guardian in detail that at this point there is no indication for admission to the hospital. It is understood, however, that if the symptoms persist or worsen the patient needs to return immediately for re-evaluation. 12/21 22:03 Order name: IV Start; Complete Time: 22:37 rn Administered Medications: 12/21 22:20 Drug: Lactated Ringers Solution 1000 ml Route: IV; Rate: 1000 ml; Site: right forearm; rr5 23:40 Follow up: Response: No adverse reaction; IV Status: Completed infusion; IV Intake: rr5 1000ml 22:20 Drug: Phenergan 25 mg Route: IVP; Site: right forearm; rr5 23:30 Follow up: Response: No adverse reaction rr5 12/22 00:00 Drug: morphine 4 mg {Note: rass 0.} Route: IVP; Site: right forearm; rr5 00:30 Follow up: Response: No adverse reaction; Pain is decreased; RASS: Alert and Calm (0) rr5 Disposition: 12/22/20 00:29 Discharged to Home. Impression: Nausea with vomiting, unspecified. - Condition is Stable. - Discharge Instructions: Abdominal Pain During , Hyperemesis Gravidarum, Second Trimester of , [id number]. - Prescriptions for Zofran ODT 4 mg Oral tablet,disintegrating - place 1 tablet by TRANSLINGUAL route every 8-12 hours As needed; 20 tablet. - Medication Reconciliation Form, Thank You Letter, Antibiotic Education, Prescription Opioid Use form. - Follow up: Private Physician; When: As needed; Reason: Recheck today's complaints, Re-evaluation by your physician. - Problem is chronic. - Symptoms have improved. Signatures: Zane Herring MD MD rn Vicente, Ronaldo, RN RN rv Roque, Raymond RN RN rr5 Corrections: (The following items were deleted from the chart) 00:37 00:29 12/22/2020 00:29 Discharged to Home. Impression: Nausea with vomiting, rr5 unspecified. Condition is Stable. Forms are Medication Reconciliation Form, Thank You Letter, Antibiotic Education, Prescription Opioid Use. Follow up: Private Physician; When: As needed; Reason: Recheck today's complaints, Re-evaluation by your physician. Problem is chronic. Symptoms have improved. rn
[2020-12-22 00:50] VITALS: BP 124/84; TEMP 97.7; O2SAT 98
== END 2020-12-22 00:37 | disposition home or self-care (01) ==
LOC: ER 19:47
DX: O21.9 Vomiting of pregnancy, unspecified (principal); Z3A.00 Weeks of gestation of pregnancy not specified
CPT/HCPCS: 96361; 96375; 96374; 99284; J2550; J7120

== ENCOUNTER 2021-01-28 10:49 | Emergency (ER) | payer MEDICAID ==
--- OUTSIDE RECORDS SUMMARY | 2021-01-28 10:52 | XMS REPORT | Continuity of Care Document ---
:1990 Author Organization [facility] t Address [address] [place] [address] Care Team Providers Name Role Phone August Gross MD Attending Clinician Lauren Thomas Attending Clinician Doctor Unassigned, Name Attending Clinician Unavailable August Gross MD Admitting Clinician Problems This patient has no known problems. Allergies, Adverse Reactions, Alerts This patient has no known allergies or adverse reactions. Medications This patient has no known medications. Procedures This patient has no known procedures. Encounters Start End Encounter Admission Attending Care Care Encounter Source Date/Time Date/Time Type Type Clinicians Facility Department ID 2021-01-18 2021-01-18 [facility] Lois Gross [id number] 15:18:00 22:30:00 Encounter August Dee [id number] [place] [id number] [place] [id number] 2021-01-18 2021-01-18 Routine AMBAR Fernandez [id number] 13:31:03 14:26:27 Rosnda R ORDER SELECTOR [id number] Visit [facility] [id number] MATERNAL [id number] & CHILD [address] [place] [address] 2021-01-18 2021-01-18 Orders Doctor JAYCE [id number] 00:00:00 00:00:00 Only Unassigned, SRAVAN [id number] [place] [facility] [id number] Results This patient has no known results.
[2021-01-28 12:00] LABS: Absolute Lymphocytes (CBC) 1.2 K/uL (0.7-4.9); Basophils % 0.2 % (0-1.3); Hematocrit 36.3 % (36.0-45.0); Lymphocytes % 17.4 % (15.3-44.8); MPV 8.4 fL (7.6-11.3); RBC Red Blood Cell Count 3.92 M/uL (3.86-4.86)
[2021-01-28] MEDS ORDERED: NA CHLORIDE 0.9% 1,000 ML ONE ×2 (12:03→14:18)
[2021-01-28] MEDS ORDERED: ONDANSETRON 4 MG/2 ML VIAL ONE ×2 (12:03→14:17)
[2021-01-28 12:11] LABS: ALT/SGPT 12 U/L (12-78); AST/SGOT 12 U/L (15-37); Albumin 2.8 g/dL (3.4-5.0); Alkaline Phosphatase 65 U/L (45-117); BUN Blood Urea Nitrogen 4 mg/dL (7-18); Bicarbonate 22 mmol/L (21-32); Bilirubin Direct 0.1 mg/dL (0-0.2); Bilirubin Total 0.5 mg/dL (0.2-1.0); Glucose Level 87 mg/dL (74-106); Lipase 79 U/L (73-393); Potassium 3.6 mmol/L (3.5-5.1); Protein, Total 6.6 g/dL (6.4-8.2); Sodium Level 142 mmol/L (136-145)
--- NOTE | 2021-01-28 14:11 | EDPHYS ---
Physician Documentation [facility] Name: Suraj Fuentes Age: 30 yrs Sex: Female : 1990 Arrival Date: 01/28/2021 Time: 10:50 Bed 14 Private MD: ED Physician Pancho Greene HPI: 01/28 11:31 This 30 yrs old Female presents to ER via Unassigned with complaints of jessica Abdominal Pain, Nausea. 11:31 The patient presents to the emergency department with nausea, vomiting, that is jessica continuous. Onset: The symptoms/episode began/occurred just prior to arrival, this morning. Possible causes: unknown, bad food exposure, . The symptoms are aggravated by nothing. The symptoms are alleviated by remaining still. Severity of symptoms: At their worst the symptoms were. The patient has not experienced similar symptoms in the past. 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 - Family history:: not pertinent. - Social history:: Smoking status: unknown. ROS: 11:31 Constitutional: Negative for fever, chills, and weight loss, Eyes: Negative for injury, jessica pain, redness, and discharge, ENT: Negative for injury, pain, and discharge, Neck: Negative for injury, pain, and swelling, Cardiovascular: Negative for chest pain, palpitations, and edema, Respiratory: Negative for shortness of breath, cough, wheezing, and pleuritic chest pain, Back: Negative for injury and pain, : Negative for injury, bleeding, discharge, and swelling, MS/Extremity: Negative for injury and deformity, Skin: Negative for injury, rash, and discoloration, Neuro: Negative for headache, weakness, numbness, tingling, and seizure, Psych: Negative for depression, anxiety, suicide ideation, homicidal ideation, and hallucinations, Allergy/Immunology: Negative for hives, rash, and allergies, Endocrine: Negative for neck swelling, polydipsia, polyuria, polyphagia, and marked weight changes. 11:31 Abdomen/GI: Positive for abdominal pain, nausea and vomiting, abdominal distension. Exam: 11:31 Constitutional: This is a well developed, well nourished patient who is awake, alert, jessica and in no acute distress. Head/Face: Normocephalic, atraumatic. Eyes: Pupils equal round and reactive to light, extra-ocular motions intact. Lids and lashes normal. Conjunctiva and sclera are non-icteric and not injected. Cornea within normal limits. Periorbital areas with no swelling, redness, or edema. ENT: Nares patent. No nasal discharge, no septal abnormalities noted. Tympanic membranes are normal and external auditory canals are clear. Oropharynx with no redness, swelling, or masses, exudates, or evidence of obstruction, uvula midline. Mucous membranes moist. Neck: Trachea midline, no thyromegaly or masses palpated, and no cervical lymphadenopathy. Supple, full range of motion without nuchal rigidity, or vertebral point tenderness. No Meningismus. Chest/axilla: Normal chest wall appearance and motion. Nontender with no deformity. No lesions are appreciated. Cardiovascular: Regular rate and rhythm with a normal S1 and S2. No gallops, murmurs, or rubs. Normal PMI, no JVD. No pulse deficits. Respiratory: Lungs have equal breath sounds bilaterally, clear to auscultation and percussion. No rales, rhonchi or wheezes noted. No increased work of breathing, no retractions or nasal flaring. Back: No spinal tenderness. No costovertebral tenderness. Full range of motion. Skin: Warm, dry with normal turgor. Normal color with no rashes, no lesions, and no evidence of cellulitis. MS/ Extremity: Pulses equal, no cyanosis. Neurovascular intact. Full, normal range of motion. Neuro: Awake and alert, GCS 15, oriented to person, place, time, and situation. Cranial nerves II-XII grossly intact. Motor strength 5/5 in all extremities. Sensory grossly intact. Cerebellar exam normal. Normal gait. Psych: Awake, alert, with orientation to person, place and time. Behavior, mood, and affect are within normal limits. 11:31 Abdomen/GI: Inspection: distension, gravid appearance, is noted, Bowel sounds: normal, Palpation: abdomen is soft and non-tender, Liver: no appreciated palpable abnormalities, Hernia: not appreciated. Vital Signs: 11:52 BP 118 / 67; Pulse 86; Resp 16; Temp 98.6; Pulse Ox 98% on R/A; Pain 10/10; iw 13:30 BP 103 / 57; Pulse 73; Resp 20; Pulse Ox 100% on R/A; zb 14:44 BP 104 / 60; Pulse 76; Resp 20; Pulse Ox 99% on R/A; zb MDM: 11:22 Patient medically screened. [facility] 11:36 Differential diagnosis: Nonspecific abd pain, pancreatitis. Data reviewed: vital signs, [facility] nurses notes, lab test result(s). 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 Test interpretation: by ED physician or midlevel provider:. Counseling: I had a detailed discussion with the patient and/or guardian regarding: the historical points, exam findings, and any diagnostic results supporting the discharge/admit diagnosis, lab results, the need for outpatient follow up, for definitive care, an OB/Gyne specialist. 01/28 11:31 Order name: Basic Metabolic Panel [facility] 01/28 11:31 Order name: CBC with Diff [facility] 01/28 11:31 Order name: Hepatic Function [facility] 01/28 11:31 Order name: Lipase [facility] 01/28 12:03 Order name: CBC with Automated Diff; Complete Time: 13:37 EDNE 01/28 12:11 Order name: Basic Metabolic Panel; Complete Time: 13:37 EDNE 01/28 11:31 Order name: IV Saline Lock; Complete Time: 11:52 [facility] 01/28 12:11 Order name: Liver (Hepatic) Function; Complete Time: 13:37 EDNE 01/28 12:11 Order name: Lipase; Complete Time: 13:37 EDNE 01/28 13:47 Order name: Urine Dipstick--Ancillary (enter results) 01/28 11:31 Order name: Labs collected and sent; Complete Time: 11:52 [facility] 01/28 11:31 Order name: Urine Dipstick-Ancillary (obtain specimen); Complete Time: 13:44 [facility] 01/28 11:31 Order name: FHT's; Complete Time: 12:22 [facility] Administered Medications: 11:51 Drug: NS 0.9% 1000 ml Route: IV; Rate: 1 bolus; Site: right forearm; iw 14:07 Follow up: Response: No adverse reaction; IV Status: Completed infusion; IV Intake: zb 1000ml 11:52 Drug: Zofran (Ondansetron) 4 mg Route: IVP; Site: right forearm; iw 14:07 Follow up: Response: No adverse reaction; Nausea unchanged zb 14:07 Drug: Zofran (Ondansetron) 4 mg Route: IVP; Site: right antecubital; zb 14:50 Follow up: Response: No adverse reaction zb 14:07 Drug: NS 0.9% 1000 ml Route: IV; Rate: 1 bolus; Site: right antecubital; zb 14:50 Follow up: Response: No adverse reaction; IV Status: Completed infusion; IV Intake: zb 500ml Disposition: 01/28/21 14:10 Discharged to Home. Impression: Vomiting, Vomiting of , unspecified, care for patient with recurrent loss, third trimester. - Condition is Stable. - Discharge Instructions: Hyperemesis Gravidarum, Nausea and Vomiting, Adult, Nausea and Vomiting, Adult, [id number]. - Prescriptions for Diclegis 10- 10 mg Oral tablet,delayed release (DR/EC) - take 1 tablet by ORAL route 3 times per day and 2 tablets at bedtime; 60 tablet. Zofran 4 mg Oral Tablet - take 1 tablet by ORAL route every 12 hours As needed; 20 tablet. Phenergan 25 mg Rectal Suppository - insert 1 suppository by RECTAL route every 6 hours As needed; 12 suppository. - Medication Reconciliation Form, Thank You Letter, Antibiotic Education, Prescription Opioid Use form. - Follow up: Private Physician; When: 2 - 3 days; Reason: Recheck today's complaints, Continuance of care, Re-evaluation by your physician. Follow up: Michael Carson MD; When: 2 - 3 days; Reason: Recheck today's complaints, Re-evaluation by your physician. - Problem is new. - Symptoms have improved. Signatures: Dispatcher [employer] EDPancho Edward MD MD cha Williams, Irene, RN Fabienne Sotomayor RN RN zb Corrections: (The following items were deleted from the chart) 14:55 14:10 01/28/2021 14:10 Discharged to Home. Impression: Vomiting; Vomiting of , zb unspecified; care for patient with recurrent loss, third trimester. Condition is Stable. Forms are Medication Reconciliation Form, Thank You Letter, Antibiotic Education, Prescription Opioid Use. Follow up: Private Physician; When: 2 - 3 days; Reason: Recheck today's complaints, Continuance of care, Re-evaluation by your physician. Follow up: Michael Carson; When: 2 - 3 days; Reason: Recheck today's complaints, Re-evaluation by your physician. Problem is new. Symptoms have improved. jessica
--- NOTE | 2021-01-28 14:11 | ER ---
Nurse's Notes [facility] Name: Suraj Fuentes Age: 30 yrs Sex: Female : 1990 Arrival Date: 01/28/2021 Time: 10:50 Bed 14 Private MD: Diagnosis: Vomiting;Vomiting of , unspecified; care for patient with recurrent loss, third trimester Presentation: 01/28 11:16 Chief complaint: Chief complaint: Patient states: "I ate fried catfish, coleslaw, and aa5 cameroonian fries last night around 11:30 pm and I think I got food poisoning because I started vomiting around 7am". Pt also reports upper abd pain, pt refused to be cleared by L\\T\\D prior to arrival". Pt reports being 29 weeks . 11:16 Acuity: SHAW 3 aa5 11:52 Coronavirus screen: At this time, the client does not indicate any symptoms associated iw with coronavirus-19. Ebola Screen: Patient negative for fever greater than or equal to 101.5 degrees Fahrenheit, and additional compatible Ebola Virus Disease symptoms Patient denies exposure to infectious person. Patient denies travel to an Ebola-affected area in the 21 days before illness onset. No symptoms or risks identified at this time. Initial Sepsis Screen: Does the patient meet any 2 criteria? No. Patient's initial sepsis screen is negative. Does the patient have a suspected source of infection? No. Patient's initial sepsis screen is negative. Risk Assessment: Do you want to hurt yourself or someone else? Patient reports no desire to harm self or others. Onset of symptoms was January 27, 2021. 11:52 Method Of Arrival: Ambulatory iw ADVICE CLERK: 14:54 Verified zb Historical: - Allergies: 11:54 Demerol; iw 11:54 Ibuprofen; iw 11:54 ORANGES; iw - PMHx: 11:54 GALLSTONES; hyperemesis gravidarum; Pancreatitis; iw - Immunization history:: Adult Immunizations unknown. - Family history:: not pertinent. - Social history:: Smoking status: unknown. Screenin:55 Abuse screen: Denies threats or abuse. Denies injuries from another. Nutritional iw screening: No deficits noted. Tuberculosis screening: No symptoms or risk factors identified. Fall Risk IV access (20 points). Assessment: 11:54 General: Appears uncomfortable, Behavior is cooperative, crying. Pain: Complains of iw pain in abdomen. Neuro: Level of Consciousness is awake, alert, obeys commands, Oriented to person, place, time, situation, Moves all extremities. Full function. Cardiovascular: Patient's skin is warm and dry. Respiratory: Respiratory effort is even, unlabored, Respiratory pattern is regular. GI: Bowel sounds present X 4 quads. Abd is soft and non tender X 4 quads. Reports lower abdominal pain, upper abdominal pain, nausea, vomiting. Derm: Skin is intact, is healthy with good turgor. Musculoskeletal: Range of motion: intact in all extremities. 12:30 General: Appears uncomfortable, Behavior is calm, cooperative. Pain: Complains of pain zb in right upper quadrant and left upper quadrant. Neuro: Level of Consciousness is awake, alert, obeys commands, Oriented to person, place, time, situation, Moves all extremities. Full function Gait is steady, Speech is normal, Facial symmetry appears normal. Cardiovascular: Patient's skin is warm and dry. Respiratory: Airway is patent Respiratory effort is even, unlabored, Respiratory pattern is regular, symmetrical. GI: Abdomen is Bowel sounds present X 4 quads. Abd is soft and non tender X 4 quads. : No signs and/or symptoms were reported regarding the genitourinary system. EENT: No signs and/or symptoms were reported regarding the EENT system. Derm: Skin is intact, is healthy with good turgor, Skin is pale, Skin temperature is warm. Musculoskeletal: Range of motion: intact in all extremities. 13:44 Reassessment: patient c/o nause with spit-up. notified ECP. zb 14:11 Reassessment: d/c pending completion of fluids. zb 14:44 Reassessment: Patient appears in no apparent distress at this time. Patient and/or zb family updated on plan of care and expected duration. Pain level reassessed. pt d/c instructions given. gait steady and even at this time. Vital Signs: 11:52 BP 118 / 67; Pulse 86; Resp 16; Temp 98.6; Pulse Ox 98% on R/A; Pain 10/10; iw 13:30 BP 103 / 57; Pulse 73; Resp 20; Pulse Ox 100% on R/A; zb 14:44 BP 104 / 60; Pulse 76; Resp 20; Pulse Ox 99% on R/A; zb Vitals: 12:23 Heart Tones: heart tones present; Heart Rate: 126bpm. dh4 ED Course: 10:50 Patient arrived in ED. as 11:16 Arm band placed on. aa5 11:18 Yuki Cornejo, RN is Primary Nurse. iw 11:22 Pancho Greene MD is Attending Physician. jessica 11:34 Initial lab(s) drawn, by me, sent to lab. Inserted saline lock: 22 gauge in right iw forearm, using aseptic technique. Blood collected. 11:53 Triage completed. iw 14:09 Michale Carson MD is Referral Physician. jessica 14:54 Patient has correct armband on for positive identification. Bed in low position. Call zb light in reach. Side rails up X 1. Pulse ox on. NIBP on. Door closed. Noise minimized. 14:54 No provider procedures requiring assistance completed. IV discontinued, intact, zb bleeding controlled, No redness/swelling at site. Pressure dressing applied. Administered Medications: 11:51 Drug: NS 0.9% 1000 ml Route: IV; Rate: 1 bolus; Site: right forearm; iw 14:07 Follow up: Response: No adverse reaction; IV Status: Completed infusion; IV Intake: zb 1000ml 11:52 Drug: Zofran (Ondansetron) 4 mg Route: IVP; Site: right forearm; iw 14:07 Follow up: Response: No adverse reaction; Nausea unchanged zb 14:07 Drug: Zofran (Ondansetron) 4 mg Route: IVP; Site: right antecubital; zb 14:50 Follow up: Response: No adverse reaction zb 14:07 Drug: NS 0.9% 1000 ml Route: IV; Rate: 1 bolus; Site: right antecubital; zb 14:50 Follow up: Response: No adverse reaction; IV Status: Completed infusion; IV Intake: zb 500ml Intake: 14:07 IV: 1000ml; Total: 1000ml. zb 14:50 IV: 500ml; Total: 1500ml. zb Outcome: 14:10 Discharge ordered by . jessica 14:54 Discharged to home ambulatory. zb 14:54 Condition: stable 14:54 Discharge instructions given to patient, Instructed on discharge instructions, follow up and referral plans. medication usage, Demonstrated understanding of instructions, follow-up care, medications, Prescriptions given X 3. 14:55 Patient left the ED. zb Signatures: Pancho Greene MD MD cha Martinez, Amelia as Williams, Irene, RN RN Heather Cummins RN RN aa5 Daron Douglas [facility] Fabienne Bush RN RN zb Corrections: (The following items were deleted from the chart) 11:53 11:16 Chief complaint: aa5 iw 11:55 11:16 Chief complaint: Patient states: feels like food poisoning, n/v/and pain since aa5 last night Chief complaint: Patient states: feels like food poisoning, n/v/and pain since last night iw 11 11:52 Acuity: SHAW 3 iw aa5 11:56 11:16 Chief complaint: Patient states: "I ate fried catfish, coleslaw, and cameroonian fries aa5 last night around 11:30 pm and I think I got food poisoning because I started vomiting around 7am". Pt also reports upper abd pain, pt refused to be cleared by L\\T\\D prior to arrival". Chief complaint: Patient states: "I ate fried catfish, coleslaw, and cameroonian fries last night around 11:30 pm and I think I got food poisoning because I started vomiting around 7am". Pt also reports upper abd pain, pt refused to be cleared by L\\T\\D prior to arrival". aa5
[2021-01-28 15:05] VITALS: TEMP 98.6
[2021-01-28 15:08] VITALS: BP 104/60; O2SAT 99
[2021-01-28 20:02] LABS: Urine Blood NEGATIVE (NEG); Urine Glucose NEGATIVE (NEG); Urine Protein TRACE (NEG); Urine Specific Gravity 1.025 (1.005-1.030)
== END 2021-01-28 14:55 | disposition home or self-care (01) ==
LOC: ER 10:49
DX: O21.9 Vomiting of pregnancy, unspecified (principal); O26.23 Pregnancy care for patient with recurrent pregnancy loss, third trimester; Z3A.29 29 weeks gestation of pregnancy; Z88.5 Allergy status to narcotic agent; Z88.6 Allergy status to analgesic agent; Z91.018 Allergy to other foods
CPT/HCPCS: 85025; 80048; 36415; 80076; 81003; 83690; 99284; J7030 ×2; J2405 ×2

== ENCOUNTER 2021-04-07 12:48 | Emergency (ER) | payer MEDICAID ==
--- OUTSIDE RECORDS SUMMARY | 2021-04-07 12:50 | XMS REPORT | Continuity of Care Document ---
:1990 Author Organization [facility] t Address [address] [place] [address] Care Team Providers Name Role Phone Jim Lauren WELLINGTON Attending Clinician Problems This patient has no known problems. Allergies, Adverse Reactions, Alerts This patient has no known allergies or adverse reactions. Medications This patient has no known medications. Procedures This patient has no known procedures. 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
[2021-04-07 13:36] LABS: Urine Blood Negative (Negative); Urine Glucose Negative (Negative); Urine Protein Negative (Negative); Urine Specific Gravity >=1.030 (1.005-1.030)
[2021-04-07] MEDS ORDERED: ONDANSETRON 4 MG/2 ML VIAL ONE (13:54)
[2021-04-07] MEDS ORDERED: NA CHLORIDE 0.9% 1,000 ML ONE (13:54)
[2021-04-07] MEDS ORDERED: MORPHINE 4 MG/ML SYR ONE (13:54)
--- NOTE | 2021-04-07 14:35 | RAD REPORT ---
EXAM DESCRIPTION: CT - Abdomen Pelvis Wo Contrast - 04/07/2021 2:07 pm CLINICAL HISTORY: Abdominal pain COMPARISON: 2019 TECHNIQUE: Computed axial tomography of the abdomen and pelvis was obtained. IV and oral contrast we re not requested. All CT scans are performed using dose optimization technique as appropriate and may include automated exposure control or mA/KV adjustment according to patient size. FINDINGS: The evaluation of solid organs, vessels and bowel is limited secondary to the lack of con trast administration. A few small ground-glass opacities within the lung bases. The liver, spleen, pancreas, adrenals and kidneys appear grossly normal. Appendectomy. No evidence of diverticulitis. No adnexal mass is noted. Small amount of free fluid. IMPRESSION: Small amount of free fluid within the pelvis may be related to inflammation. A few small ground-glass opacities within the lung bases may indicate a mild alveolitis
[2021-04-07 14:54] LABS: Absolute Lymphocytes (CBC) 2.1 K/uL (0.7-4.9); Hematocrit 38.2 % (36.0-45.0); Lymphocytes % 40.6 % (15.3-44.8); MPV 8.5 fL (7.6-11.3); RBC Red Blood Cell Count 4.46 M/uL (3.86-4.86)
[2021-04-07] MEDS ORDERED: DIPHENHYDRAMINE 50 MG/ML VIAL ONE (15:08)
[2021-04-07] MEDS ORDERED: METHYLPREDNISOLONE 125 MG INJ ONE (15:08)
[2021-04-07 15:19] LABS: ALT/SGPT 22 U/L (12-78); AST/SGOT 15 U/L (15-37); Albumin 3.5 g/dL (3.4-5.0); Alkaline Phosphatase 74 U/L (45-117); BUN Blood Urea Nitrogen 6 mg/dL (7-18); Bicarbonate 24 mmol/L (21-32); Bilirubin Direct 0.1 mg/dL (0-0.2); Bilirubin Total 0.6 mg/dL (0.2-1.0); Glucose Level 87 mg/dL (74-106); Lipase 99 U/L (73-393); Potassium 3.8 mmol/L (3.5-5.1); Protein, Total 7.2 g/dL (6.4-8.2); Sodium Level 143 mmol/L (136-145)
--- NOTE | 2021-04-07 16:04 | EDPHYS ---
Physician Documentation [facility] Name: Suraj Fuentes Age: 30 yrs Sex: Female : 1990 Arrival Date: 04/07/2021 Time: 12:49 Bed 7 Private MD: Consuelo Liu C ED Physician Pancho Greene HPI: 04/07 16:29 This 30 yrs old Female presents to ER via Ambulatory with complaints of Flank kb Pain. 16:29 The patient presents with abdominal pain in the right upper quadrant. Onset: The kb symptoms/episode began/occurred 7 day(s) ago. The symptoms do not radiate. Associated signs and symptoms: none. The symptoms are described as constant. Modifying factors: The symptoms are alleviated by nothing, the symptoms are aggravated by pressure. Severity of pain: At its worst the pain was moderate in the emergency department the pain is unchanged. The patient has not experienced similar symptoms in the past. The patient has not recently seen a physician. 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 - Social history:: Smoking status: Patient denies any tobacco usage or history of. ROS: 16:29 Constitutional: Negative for fever, chills, and weight loss. kb 16:29 Abdomen/GI: Positive for abdominal pain, Negative for nausea, vomiting, and diarrhea. 16:29 All other systems are negative. Exam: 16:28 Constitutional: This is a well developed, well nourished patient who is awake, alert, kb and in no acute distress. Head/Face: Normocephalic, atraumatic. ENT: Moist Mucous membranes Cardiovascular: Regular rate and rhythm with a normal S1 and S2. No gallops, murmurs, or rubs. No pulse deficits. Respiratory: Respirations even and unlabored. No increased work of breathing, no retractions or nasal flaring. Back: No spinal tenderness. No costovertebral tenderness. Full range of motion. Skin: Warm, dry with normal turgor. Normal color. MS/ Extremity: Pulses equal, no cyanosis. Neurovascular intact. Full, normal range of motion. Neuro: Awake and alert, GCS 15, oriented to person, place, time, and situation. Moves all extremities. Normal gait. Psych: Awake, alert, with orientation to person, place and time. Behavior, mood, and affect are within normal limits. 16:28 Abdomen/GI: Inspection: abdomen appears normal, Bowel sounds: normal, in all quadrants, Palpation: soft, in all quadrants, moderate abdominal tenderness, in the right upper quadrant. Vital Signs: 12:59 BP 137 / 80; Pulse 71; Resp 16 S; Temp 97.3(TE); Pulse Ox 100% on R/A; Weight 74.84 kg jd3 (R); Height 5 ft. 4 in. (162.56 cm) (R); Pain 7/10; 16:15 BP 134 / 82; Pulse 70; Resp 16 S; Pulse Ox 100% on R/A; jd3 12:59 Body Mass Index 28.32 (74.84 kg, 162.56 cm) jd3 MDM: 13:24 Patient medically screened. kb 13:47 Data reviewed: vital signs, nurses notes. Data interpreted: Pulse oximetry: on room air kb is 100 %. Interpretation: normal. 16:03 Counseling: I had a detailed discussion with the patient and/or guardian regarding: the kb historical points, exam findings, and any diagnostic results supporting the discharge/admit diagnosis, lab results, radiology results, the need for outpatient follow up, a family practitioner, a inventory control associate, to return to the emergency department if symptoms worsen or persist or if there are any questions or concerns that arise at home. 04/07 13:29 Order name: Basic Metabolic Panel; Complete Time: 15:45 kb 04/07 13:29 Order name: CBC with Diff; Complete Time: 14:57 kb 04/07 13:29 Order name: Hepatic Function; Complete Time: 15:45 kb 04/07 13:29 Order name: Lipase; Complete Time: 15:45 kb 04/07 13:36 Order name: Urine Dipstick-Ancillary; Complete Time: 13:39 EDNE 04/07 13:45 Order name: Urine --Ancillary (enter results); Complete Time: 14:27 eb 04/07 13:29 Order name: IV Saline Lock; Complete Time: 14:57 kb 04/07 13:29 Order name: Labs collected and sent; Complete Time: 14:57 kb 04/07 13:29 Order name: CT Abd/Pelvis - Without Contrast; Complete Time: 14:50 kb Administered Medications: 14:35 Drug: NS 0.9% 1000 ml Route: IV; Rate: 1000 ml; Site: left forearm; ap3 14:35 Drug: morphine 4 mg Route: IVP; Site: left femoral; ap3 14:35 Drug: Zofran (Ondansetron) 4 mg Route: IVP; Site: left antecubital; ap3 14:54 Drug: SOLU-Medrol (methylPrednisoLONE) 125 mg Route: IVP; Site: left antecubital; ap3 14:55 Drug: Benadryl (diphenhydrAMINE) 50 mg Route: IVP; Site: left antecubital; ap3 Disposition: 04/08 07:43 Co-signature as Attending Physician, Pancho Greene MD I agree with the assessment and jessica plan of care. Disposition: 04/07/21 16:04 Discharged to Home. Impression: Upper abdominal pain, unspecified. - Condition is Stable. - Discharge Instructions: Abdominal Pain, Adult, [id number]. - Prescriptions for Bentyl 20 mg Oral Tablet - take 1 tablet by ORAL route every 6 hours As needed; 20 tablet. Zofran 4 mg Oral Tablet - take 1 tablet by ORAL route every 6 hours As needed; 20 tablet. - Medication Reconciliation Form, Thank You Letter, Antibiotic Education, Prescription Opioid Use form. - Follow up: Emergency Department; When: As needed; Reason: Worsening of condition. Follow up: Private Physician; When: 2 - 3 days; Reason: Recheck today's complaints, Continuance of care, Re-evaluation by your physician. Signatures: Dispatcher [employer] EDNE Christine Solares, SHAWN WELLINGTON-Pancho Tirado MD MD cha Roszak, Josh, PA PA jr8 Eladio Rivas RN RN jd3 Prokisch, Sharlene, RN RN ap3 Corrections: (The following items were deleted from the chart) 04/07 16:17 16:04 04/07/2021 16:04 Discharged to Home. Impression: Upper abdominal pain, jd3 unspecified. Condition is Stable. Forms are Medication Reconciliation Form, Thank You Letter, Antibiotic Education, Prescription Opioid Use. Follow up: Emergency Department; When: As needed; Reason: Worsening of condition. Follow up: Private Physician; When: 2 - 3 days; Reason: Recheck today's complaints, Continuance of care, Re-evaluation by your physician. kb
--- NOTE | 2021-04-07 16:04 | ER ---
Nurse's Notes [facility] Name: Suraj Fuentes Age: 30 yrs Sex: Female : 1990 Arrival Date: 04/07/2021 Time: 12:49 Bed 7 Private MD: Consuelo Liu C Diagnosis: Upper abdominal pain, unspecified Presentation: 04/07 12:57 Chief complaint: Patient states: "I am having some pain and swelling in the upper right jd3 side of my stomach. it comes and goes.". Coronavirus screen: At this time, the client does not indicate any symptoms associated with coronavirus-19. Ebola Screen: Patient negative for fever greater than or equal to 101.5 degrees Fahrenheit, and additional compatible Ebola Virus Disease symptoms. Initial Sepsis Screen: Does the patient meet any 2 criteria? No. Patient's initial sepsis screen is negative. Does the patient have a suspected source of infection? No. Patient's initial sepsis screen is negative. Risk Assessment: Do you want to hurt yourself or someone else? Patient reports no desire to harm self or others. Onset of symptoms was April 07, 2021. 12:57 Method Of Arrival: Ambulatory jd3 12:57 Acuity: SHAW 3 jd3 STRATEGY INTERN: 12:59 LMP 04/07/2021 jd3 Historical: - Allergies: 12:59 Demerol; jd3 12:59 Ibuprofen; jd3 12:59 ORANGES; jd3 12:59 Iodinated Contrast Media - IV Dye; jd3 - Home Meds: 12:59 None [Active]; jd3 - PMHx: 12:59 hyperemesis gravidarum; GALLSTONES; Pancreatitis; jd3 - PSHx: 12:59 Appendectomy; Cholecystectomy; jd3 12:59 Tubal ligation; ; jd3 - Immunization history:: Adult Immunizations up to date. - Social history:: Smoking status: Patient denies any tobacco usage or history of. Screenin:16 Abuse screen: Denies threats or abuse. Nutritional screening: No deficits noted. jd3 Tuberculosis screening: No symptoms or risk factors identified. Fall Risk Ambulatory Aid- None/Bed Rest/Nurse Assist (0 pts). Gait- Normal/Bed Rest/Wheelchair (0 pts) Mental Status- Oriented to own ability (0 pts). Total Chaidez Fall Scale indicates No Risk (0-24 pts). Assessment: 16:15 Reassessment: Patient appears in no apparent distress at this time. Patient and/or jd3 family updated on plan of care and expected duration. Pain level reassessed. Patient is alert, oriented x 3, equal unlabored respirations, skin warm/dry/pink. Patient states feeling better. Patient states symptoms have improved. Vital Signs: 12:59 BP 137 / 80; Pulse 71; Resp 16 S; Temp 97.3(TE); Pulse Ox 100% on R/A; Weight 74.84 kg jd3 (R); Height 5 ft. 4 in. (162.56 cm) (R); Pain 7/10; 16:15 BP 134 / 82; Pulse 70; Resp 16 S; Pulse Ox 100% on R/A; jd3 12:59 Body Mass Index 28.32 (74.84 kg, 162.56 cm) jd3 ED Course: 12:49 Patient arrived in ED. am2 12:49 Consuelo Liu FNP is Private Physician. am2 12:58 Triage completed. jd3 13:00 Arm band placed on. jd3 13:15 Patient has correct armband on for positive identification. Placed in gown. Bed in low jd3 position. Call light in reach. Side rails up X 1. 13:15 Pulse ox on. NIBP on. jd3 13:24 [facility]. kb 13:24 Pancho Greene MD is Attending Physician. kb 13:29 Sharlene Pack RN is Primary Nurse. ap3 14:07 CT Abd/Pelvis - Without Contrast In Process Unspecified. EDMS 14:35 Initial lab(s) drawn, by me, sent to lab. Inserted saline lock: 22 gauge in left jl7 forearm, using aseptic technique. Blood collected. 16:16 No provider procedures requiring assistance completed. IV discontinued, intact, jd3 bleeding controlled, No redness/swelling at site. Pressure dressing applied. Administered Medications: 14:35 Drug: NS 0.9% 1000 ml Route: IV; Rate: 1000 ml; Site: left forearm; ap3 14:35 Drug: morphine 4 mg Route: IVP; Site: left femoral; ap3 14:35 Drug: Zofran (Ondansetron) 4 mg Route: IVP; Site: left antecubital; ap3 14:54 Drug: SOLU-Medrol (methylPrednisoLONE) 125 mg Route: IVP; Site: left antecubital; ap3 14:55 Drug: Benadryl (diphenhydrAMINE) 50 mg Route: IVP; Site: left antecubital; ap3 Outcome: 16:04 Discharge ordered by MD. do 16:16 Discharged to home ambulatory, with family. jd3 16:16 Condition: stable 16:16 Discharge instructions given to patient, Instructed on discharge instructions, follow up and referral plans. medication usage, Demonstrated understanding of instructions, follow-up care, medications, Prescriptions given X 2. 16:17 Patient left the ED. jd3 Signatures: Dispatcher [employer] EDMS Christine Solares, ELIZ-C ELIZ-Toni Trinh RN RN jl7 Sharlene Mello Jonathon, RN RN jd3 Sharlene Pack RN RN ap3 Corrections: (The following items were deleted from the chart) 14:57 14:55 Zofran (Ondansetron) 4 mg IVP in left antecubital ap3 ap3
[2021-04-07 16:25] VITALS: BP 137/80; TEMP 97.3; O2SAT 100
== END 2021-04-07 16:17 | disposition home or self-care (01) ==
LOC: ER 12:48
DX: R10.10 Upper abdominal pain, unspecified (principal)
CPT/HCPCS: 85025; 80048; 36415; 81025; 80076; 81003; 83690; 74176; 99284; J1200; J7030; J2930; J2405

== ENCOUNTER 2022-02-13 15:25 | Emergency (ER) | payer OTHER ==
--- OUTSIDE RECORDS SUMMARY | 2022-02-13 15:29 | XMS REPORT | Continuity of Care Document ---
:1990 Author Organization [facility] t Address [address] [place] [address] Care Team Providers Name Role Phone Lauren FERNANDEZ Attending Clinician Unavailable Lauren Thomas Attending Clinician ANTONELLA Attending Clinician Unavailable Clarice BOJORQUEZ Attending Clinician Unavailable HELGA SMILEY Attending Clinician Unavailable Lauren GOMEZ Attending Clinician Unavailable PENNY Attending Clinician Unavailable PENNY Attending Clinician Unavailable Tyler GRANADOS Attending Clinician Unavailable Tyler GRANADOS Attending Clinician Unavailable DARWIN Admitting Clinician Unavailable ALPHONSO STOKES Admitting Clinician Unavailable Alejandro SHANE Admitting Clinician Unavailable JOHAN Admitting Clinician Unavailable Tyler GRANADOS Admitting Clinician Unavailable PENNY Admitting Clinician Unavailable Tyler MERCER Admitting Clinician Unavailable Payers Payer Name Policy Type Policy Number Effective Date Expiration Date [facility] [id number] 2018 MEDICAID 00:00:00 Problems This patient has no known problems. Allergies, Adverse Reactions, Alerts Allergy Allergy Status Severity Reaction(s) Onset Inactive Treating Comm ents Source Name Type Date Date Clinician MORPHINE DRUG Active Hives [facility] INGREDI 6-16 ity of 00:00: [facility] SODIUM DRUG Active N/V Univers CITRATE 1-24 ity of (BULK) 00:00: [facility] IBUPROFE DRUG Active Hives Univers N INGREDI 5-22 ity of 00:00: [facility] ORANGE DRUG Active Hives Univers 5-22 ity of 00:00: [facility] Medications This patient has no known medications. Procedures This patient has no known procedures. Encounters Start End Encounter Admission Attending Care Care Encounter Source Date/Time Date/Time Type Type Clinicians Facility Department ID 2021-09-24 Outpatient P [facility] [id number] Univers 10:31:27 ity of [facility] 2021-09-24 Outpatient P [facility] [id number] Univers 09:02:29 ity of [facility] 2021-09-24 Emergency X [facility] [id number] Univers 06:47:18 ity of [facility] 2021-09-24 Outpatient P [facility] [id number] Univers 06:38:20 ity of [facility] 2021-09-24 Outpatient P [facility] [id number] Univers 05:25:21 ity of [facility] 2021-09-24 Outpatient P [facility] [id number] Univers 04:28:40 ity of [facility] 2021-09-24 Emergency [facility] [id number] Univers 04:28:31 ity of [facility] 2021-09-24 Outpatient P [facility] [id number] Univers 01:10:45 ity of [facility] 2021-09-23 Emergency [facility] [id number] Univers 21:07:50 ity of [facility] 2021-09-23 Emergency [facility] [id number] Univers 07:29:02 ity of [facility] 2021-09-23 Outpatient P [facility] [id number] Univers 06:08:13 ity of [facility] 2021-09-22 Outpatient P [facility] [id number] Univers 23:31:44 ity of [facility] 2021-09-22 Emergency [facility] [id number] Univers 23:30:48 ity of [facility] 2021-09-22 Emergency [facility] [id number] Univers 22:58:12 ity of [facility] 2021-09-22 Outpatient U [facility]ANN [id number] Univers 21:53:49 ity [facility] 2021-09-22 Outpatient P [facility]ANN [id number] Univers 21:28:28 ity [facility] 2021-09-22 Emergency [facility] [id number] Univers 20:56:44 ity [facility] 2021-05-10 2021-05-10 Outpatient Lauren FERNANDEZ [facility] [id number] Univers 14:30:00 14:30:[id number] [facility] 2021-05-10 2021-05-10 Outpatient Lauren FERNANDEZ [facility] [id number] Univers 14:30:00 14:30:[address] 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 2021-03-22 2021-03-22 Outpatient Lauren FERNANDEZ [facility] [id number] Univers 14:00:00 14:00:[address] [facility] 2021-03-20 2021-03-20 Outpatient Lauren FERNANDEZ, [facility] [id number] Univers 10:45:00 10:45:[id number] it[address] [facility] 2021-03-06 2021-03-06 Outpatient Lauren BERMAN [facility] [id number] Univers 11:00:00 11:00:00 DAVE ity [facility] 2021-03-01 2021-03-01 Outpatient R WAQAR [facility] [id number] Univers 12:45:00 12:45:[id number] it[address] [facility] 2021-03-01 2021-03-01 Outpatient R WAQAR [facility] [id number] Univers 12:45:00 12:45:[address] [facility] 2021-02-19 2021-02-19 Outpatient P WAQAR [facility] JOANN [id number] Univers 15:41:00 15:41:[address] [facility] 2021-02-15 2021-02-15 Outpatient R WAQAR [facility] [id number] Univers 14:30:00 14:30:[id number] it[address] [facility] 2021-02-15 2021-02-15 Outpatient R WAQAR [facility] [id number] Univers 14:30:00 14:30:[address] [facility] 2021-02-01 2021-02-01 Outpatient R WAQAR [facility] [id number] Univers 15:15:00 15:15:[id number] [facility] 2021-02-01 2021-02-01 Outpatient R WAQAR [facility] [id number] Univers 15:15:00 15:15:[address] [facility] 2021-01-18 2021-01-18 Outpatient R WAQAR [facility] [id number] Univers 13:45:00 13:45:[id number] [facility] 2021-01-18 2021-01-18 Outpatient R WAQAR [facility] [id number] Univers 13:45:00 13:45:[address] [facility] 2021-01-06 2021-01-06 Outpatient R WAQAR [facility] [id number] Univers 09:45:00 09:45:[id number] [facility] 2021-01-06 2021-01-06 Outpatient R FERNANDEZ, [facility] [id number] Univers 09:45:00 09:45:[address] [facility] 2020-12-23 2020-12-23 Outpatient R AKINSIPE, [facility] [id number] Univers 11:00:00 11:00:[id number] [facility] 2020-12-23 2020-12-23 Outpatient R AKINSIPE, [facility] [id number] Univers 11:00:00 11:00:[address] [facility] 2020-12-20 2020-12-20 Outpatient R AKINSIPE, [facility] [id number] Univers 10:45:00 10:45:[id number] [facility] 2020-12-20 2020-12-20 Outpatient R AKINSIPE, [facility] [id number] Univers 10:45:00 10:45:[address] [facility] 2020-12-20 2020-12-20 Outpatient R FERNANDEZ, [facility] [id number] Univers 09:45:00 09:45:[address] [facility] 2020-12-13 2020-12-13 Outpatient P PARTIDA [facility] [id number] Univers 14:15:00 14:15:00 BRI aguilar y of S, [place] [facility] 2020-11-29 2020-11-29 Outpatient R [facility] [id number] Univers 14:30:00 14:30:00 [id number] ity [facility] 2020-11-29 2020-11-29 Outpatient R [facility] [id number] Univers 14:30:00 14:30:00 [facility] 2020-11-22 2020-11-22 Outpatient R AKINSIPE, [facility] [id number] Univers 14:00:00 14:00:[id number] [facility] 2020-11-22 2020-11-22 Outpatient R AKINSIPE, [facility] [id number] Univers 14:00:00 14:00:00 BOOM aguilary o f [facility] 2020-11-15 2020-11-15 Outpatient P JASON [facility] [id number] Univers 13:00:00 13:00:00 CHRISTINA charles [facility] 2020-11-08 2020-11-08 Outpatient P EDYTA FRANCIS [facility] [id number] Univers 15:00:00 15:00:00 PENNYEDYTA [facility] 2020-10-31 2020-10-31 Outpatient P STEVE GRANADOS [facility] [id number] Univers 15:15:00 15:15:00 DARWINSTEVE [facility] 2020-10-24 2020-10-24 Outpatient R AKINSIPE, [facility] [id number] Univers 13:45:00 13:45:00 BOOM laureny o f [facility] 2020-10-13 2020-10-13 Outpatient R AKINSIPE, [facility] [id number] Univers 14:00:00 14:00:00 BOOM [id number] ity o f [facility] 2020-10-06 2020-10-06 Outpatient R WAQAR, [facility] [id number] Univers 12:45:00 12:45:00 CORNELIUS [id number] ity o f [facility] 2020-10-06 2020-10-06 Outpatient R WAQAR, [facility] [id number] Univers 12:45:00 12:45:00 CORNELIUS ity o f [facility] 2020-09-08 2020-09-08 Outpatient R WAQAR, [facility] [id number] Univers 10:45:00 10:45:00 CORNELIUS ity o f [facility] 2020-08-31 2020-08-31 Outpatient R WAQAR [facility] [id number] Univers 12:45:00 12:45:00 CORNELIUS ity o f [facility] 2020-08-31 2020-08-31 Outpatient R WAQAR, [facility] [id number] Univers 12:45:00 12:45:00 CORNELIUS ity o f [facility] 2020-08-24 2020-08-24 Outpatient R [facility] [id number] Univers 13:30:00 13:30:00 [facility] 2020-08-24 2020-08-24 Outpatient P [facility] [id number] Univers 13:30:00 13:30:00 [facility] 2020-08-03 2020-08-03 Outpatient R [facility] [id number] Univers 12:45:00 12:45:00 [facility] 2020-08-03 2020-08-03 Outpatient R WAQAR [facility] [id number] Univers 12:45:00 12:45:[address] [facility] 2020-07-12 2020-07-12 Outpatient R WAQAR [facility] [id number] Univers 14:15:00 14:15:00 CORNELIUS [id number] itcharles o [facility] 2020-07-12 2020-07-12 Outpatient R WAQAR [facility] [id number] Univers 14:15:00 14:15:[address] [facility] 2020-03-21 2020-03-21 Outpatient R WAQAR [facility] [id number] Univers 15:00:00 15:00:[id number] [facility] 2020-03-21 2020-03-21 Outpatient R WAQAR [facility] [id number] Univers 15:00:00 15:00:00 CORNELIUS [facility] Results This patient has no known results.
[2022-02-13 16:35] LABS: Urine Blood Negative (Negative); Urine Glucose Negative (Negative); Urine Protein Negative (Negative); Urine Specific Gravity 1.025 (1.005-1.030)
[2022-02-13 17:02] LABS: Urine Bacteria <20 /HPF (<20); Urine RBC NONE SEEN /HPF (NONE SEEN)
[2022-02-13 17:54] LABS: Urine Specific Gravity/Preg 1.025 (1.005-1.030)
[2022-02-13 18:08] LABS: Absolute Lymphocytes (CBC) 2.6 K/uL (0.7-4.9); Hematocrit 41.3 % (36.0-45.0); Lymphocytes % 31.5 % (15.3-44.8); RBC Red Blood Cell Count 4.69 M/uL (3.86-4.86)
--- NOTE | 2022-02-13 18:25 | RAD REPORT ---
EXAM DESCRIPTION: CT - Stone Protocol - 02/13/2022 6:07 pm CLINICAL HISTORY: Abdominal pain. Flank pain COMPARISON: 2020 TECHNIQUE: Computed axial tomography of the abdomen pelvis was obtained without oral or IV contrast. Lack of IV and oral contrast limits evaluation of solid organs, bowel, and vessels. Coronal reformat young images were obtained and reviewed. All CT scans are performed using dose optimization technique as appropriate and may include automated exposure control or mA/KV adjustment according to patient size. FINDINGS: A renal calculus is not seen. An ureteral calculus is not noted. A bladder calculus is not present. The liver, spleen, pancreas and adrenals appear grossly normal There is no evidence of diverticulitis. Appendectomy 2 centimeter right ovarian cyst without significant free fluid. Small umbilical hernia IMPRESSION: Negative for a genitourinary calculus 2 centimeter right ovarian cyst without significant free fluid.
[2022-02-13 18:29] LABS: ALT/SGPT 33 U/L (12-78); AST/SGOT 17 U/L (15-37); Albumin 3.7 g/dL (3.4-5.0); Alkaline Phosphatase 63 U/L (45-117); BUN Blood Urea Nitrogen 8 mg/dL (7-18); Bicarbonate 26 mmol/L (21-32); Bilirubin Total 0.4 mg/dL (0.2-1.0); Glucose Level 97 mg/dL (74-106); Lipase 86 U/L (73-393); Protein, Total 7.1 g/dL (6.4-8.2); Sodium Level 138 mmol/L (136-145)
[2022-02-13] MEDS ORDERED: MORPHINE 4 MG/ML SYR ONE (19:01)
[2022-02-13] MEDS ORDERED: ONDANSETRON 4 MG/2 ML VIAL ONE ×2 (19:01→19:56)
--- NOTE | 2022-02-13 19:01 | EDPHYS ---
Physician Documentation [facility] Name: Suraj Fuentes Age: 31 yrs Sex: Female : 1990 Arrival Date: 02/13/2022 Time: 15:29 Bed 17 Private MD: ED Physician Zane Herring HPI: 02/13 17:52 This 31 yrs old Female presents to ER via Ambulatory with complaints of Abdominal Pain. jr8 17:52 The patient presents with abdominal pain in the left lower quadrant. Onset: The jr8 symptoms/episode began/occurred acutely, today. The symptoms do not radiate. Associated signs and symptoms: Pertinent positives: nausea. The symptoms are described as shooting. Modifying factors: The symptoms are alleviated by nothing, the symptoms are aggravated by nothing. Severity of pain: At its worst the pain was moderate in the emergency department the pain is unchanged. The patient has not experienced similar symptoms in the past. The patient has not recently seen a physician. [employer] IN[employer]: 15:43 LMP 12/05/2021 hall Historical: - Allergies: 15:43 Demerol; hall 15:43 Ibuprofen; hall 15:43 Iodinated Contrast Media - IV Dye; hall 15:43 ORANGES; hall - PMHx: 15:43 GALLSTONES; hyperemesis gravidarum; Pancreatitis; hall - Immunization history:: Adult Immunizations. - Social history:: Smoking status: Patient denies any tobacco usage or history of. ROS: 17:52 Eyes: Negative for injury, pain, redness, and discharge, ENT: Negative for injury, jr8 pain, and discharge, Neck: Negative for injury, pain, and swelling, Cardiovascular: Negative for chest pain, palpitations, and edema, Respiratory: Negative for shortness of breath, cough, wheezing, and pleuritic chest pain, Back: Negative for injury and pain, MS/Extremity: Negative for injury and deformity, Skin: Negative for injury, rash, and discoloration, Neuro: Negative for headache, weakness, numbness, tingling, and seizure. 17:52 Abdomen/GI: Positive for abdominal pain, nausea, Negative for vomiting, diarrhea. Exam: 17:52 Constitutional: This is a well developed, well nourished patient who is awake, alert, jr8 and in no acute distress. Cardiovascular: Regular rate and rhythm with a normal S1 and S2. No gallops, murmurs, or rubs. Normal PMI, no JVD. No pulse deficits. Respiratory: Lungs have equal breath sounds bilaterally, clear to auscultation and percussion. No rales, rhonchi or wheezes noted. No increased work of breathing, no retractions or nasal flaring. Back: No spinal tenderness. No costovertebral tenderness. Full range of motion. Skin: Warm, dry with normal turgor. Normal color with no rashes, no lesions, and no evidence of cellulitis. MS/ Extremity: Pulses equal, no cyanosis. Neurovascular intact. Full, normal range of motion. Neuro: Awake and alert, GCS 15, oriented to person, place, time, and situation. Cranial nerves II-XII grossly intact. Motor strength 5/5 in all extremities. Sensory grossly intact. 17:52 Abdomen/GI: Inspection: obese Bowel sounds: active, all quadrants, Palpation: soft, in all quadrants, moderate abdominal tenderness, in the left lower quadrant, mass, is not appreciated, rebound tenderness, is not appreciated, voluntary guarding, is not appreciated, involuntary guarding, is not appreciated, no appreciated organomegaly, Indicators: McBurney's point is not tender, Morris's sign is negative, Rovsing's sign is negative, Liver: tenderness, is not appreciated. Vital Signs: 15:41 BP 152 / 84; Pulse 76; Resp 18; Temp 97.6(T); Pulse Ox 96% ; Weight 84.82 kg; Height 5 hall ft. 4 in. (162.56 cm); 17:08 BP 114 / 63; Pulse 59; Resp 16; Temp 98.6; Pulse Ox 100% on R/A; Pain 9/10; ag7 18:55 BP 123 / 73; Pulse 71; Resp 16 S; Pulse Ox 100% on R/A; Pain 9/10; ag7 20:17 BP 122 / 72; Pulse 74; Resp 17; Pulse Ox 100% on R/A; kd3 15:41 Body Mass Index 32.10 (84.82 kg, 162.56 cm) hall MDM: 17:05 Patient medically screened. jr8 18:59 Data reviewed: vital signs, nurses notes, lab test result(s), radiologic studies, CT jr8 scan, ultrasound. Data interpreted: Pulse oximetry: on room air is 100 %. Interpretation: normal. Counseling: I had a detailed discussion with the patient and/or guardian regarding: the historical points, exam findings, and any diagnostic results supporting the discharge/admit diagnosis, lab results, radiology results, the need for outpatient follow up, a family practitioner, to return to the emergency department if symptoms worsen or persist or if there are any questions or concerns that arise at home. Response to treatment: the patient's symptoms have mildly improved after treatment. Special discussion: Based on the patient's Hx, exam, and Dx evaluation, there is no indication for emergent surgery or inpatient Tx. It is understood by the patient/guardian that if the Sx's persist or worsen they need to return immediately for re-evaluation. 02/13 15:51 Order name: Urine Culture 02/13 15:51 Order name: Urine Microscopic Only 02/13 15:51 Order name: Urine Culture [facility] 02/13 15:51 Order name: Urine Microscopic Only; Complete Time: 17:05 [facility] 02/13 16:35 Order name: Urine Dipstick-Ancillary; Complete Time: 17:05 [facility] 02/13 17:05 Order name: Urine --Ancillary (enter results); Complete Time: 17:55 bd 02/13 17:05 Order name: CBC with Diff; Complete Time: 18:26 [facility] 02/13 17:05 Order name: CMP; Complete Time: 18:33 [facility] 02/13 17:05 Order name: Lipase; Complete Time: 18:33 [facility] 02/13 17:29 Order name: CT Stone Protocol; Complete Time: 18:26 [facility] 02/13 17:29 Order name: US Transvaginal Study (Probe); Complete Time: 19:15 [facility] 02/13 15:51 Order name: Urine Dipstick-Ancillary (obtain specimen); Complete Time: 16:36 02/13 15:51 Order name: Urine Test (obtain specimen); Complete Time: 16:36 02/13 17:05 Order name: IV Saline Lock; Complete Time: 18:02 [facility] 02/13 17:05 Order name: Labs collected and sent; Complete Time: 18:02 8 Administered Medications: 19:05 Drug: morphine 4 mg Route: IVP; Site: right antecubital; ag7 20:16 Follow up: Response: No adverse reaction kd3 19:05 Drug: Zofran (Ondansetron) 4 mg Route: IVP; Site: right antecubital; ag7 20:16 Follow up: Response: No adverse reaction kd3 20:07 Drug: Pepcid (famotidine) 20 mg Route: IVP; Site: right antecubital; kd3 20:16 Follow up: Response: No adverse reaction kd3 20:07 Drug: Zofran (Ondansetron) 4 mg Route: IVP; Site: right antecubital; kd3 20:16 Follow up: Response: No adverse reaction kd3 Disposition: 02/14 07:04 Co-signature as Attending Physician, Zane Herring MD. rn Disposition Summary: 02/13/22 19:00 Discharge Ordered Location: Home jr8 Problem: new jr8 Symptoms: have improved jr8 Condition: Stable jr8 Diagnosis - Lower abdominal pain, unspecified jr8 Followup: jr8 - With: Private Physician - When: 1 - 2 days - Reason: Recheck today's complaints, Continuance of care, Re-evaluation by your physician Discharge Instructions: - Discharge Summary Sheet jr8 - Abdominal Pain, Adult jr8 Forms: - Medication Reconciliation Form jr8 - Thank You Letter jr8 - Antibiotic Education jr8 - Prescription Opioid Use jr8 Signatures: Dispatcher [employer] EDMS Zane Herring MD MD rn Roszak, Josh, PA PA jr8 Chayito Lopez RN RN kd3 Kimberly Dickey RN RN ha Glenn, Angela RN RN ag7
--- NOTE | 2022-02-13 19:01 | ER ---
Nurse's Notes [facility] Name: Suraj Fuentes Age: 31 yrs Sex: Female : 1990 Arrival Date: 02/13/2022 Time: 15:29 Bed 17 Private MD: Diagnosis: Lower abdominal pain, unspecified Presentation: 02/13 15:41 Chief complaint: Patient states: pt presented to ED reporting abdominal distention, hall frequent urination, flank pain. Coronavirus screen: Vaccine status: Patient reports receiving the 1st dose of the Covid vaccine. Ebola Screen: Patient denies travel to an Ebola-affected area in the 21 days before illness onset. Initial Sepsis Screen: Does the patient meet any 2 criteria? No. Patient's initial sepsis screen is negative. Does the patient have a suspected source of infection? No. Patient's initial sepsis screen is negative. Risk Assessment: Do you want to hurt yourself or someone else? Patient reports no desire to harm self or others. Onset of symptoms was February 01, 2022. 15:41 Method Of Arrival: Ambulatory hall 15:41 Acuity: SHAW 3 hall Triage Assessment: 15:43 General: Appears in no apparent distress. Behavior is calm, cooperative. Pain: hall Complains of pain in abdomen Pain radiates to left mid back. GI: Abdomen is distended, Reports nausea. [employer]: 15:43 LMP 12/05/2021 hall Historical: - Allergies: 15:43 Demerol; hall 15:43 Ibuprofen; hall 15:43 Iodinated Contrast Media - IV Dye; hall 15:43 ORANGES; hall - PMHx: 15:43 GALLSTONES; hyperemesis gravidarum; Pancreatitis; hall - Immunization history:: Adult Immunizations. - Social history:: Smoking status: Patient denies any tobacco usage or history of. Screenin:16 Abuse screen: Denies threats or abuse. Denies injuries from another. Nutritional kd3 screening: No deficits noted. Tuberculosis screening: No symptoms or risk factors identified. Fall Risk IV access (20 points). Assessment: 17:08 General: Appears in no apparent distress. comfortable, Behavior is calm, cooperative. ag7 Pain: Complains of pain in abdomen and left lower quadrant and back and left mid back Pain does not radiate. Pain currently is 9 out of 10 on a pain scale. Quality of pain is described as aching, pressure, Pain began suddenly, Is continuous, Alleviated by. Neuro: Level of Consciousness is awake, alert, obeys commands, Oriented to person, place, time, situation, Appropriate for age [employer] Hoist Operator are equal bilaterally Reports. Cardiovascular: Heart tones S1 S2 present Capillary refill < 3 seconds is brisk Patient's skin is warm and dry. Respiratory: Airway is patent Trachea midline Respiratory effort is even, unlabored, Respiratory pattern is regular, symmetrical, Breath sounds are clear bilaterally. GI: Bowel sounds present X 4 quads. Abd is soft in left lower quadrant Abdomen is tender to palpation Reports lower abdominal pain, bloating, Patient c/o painful intercourse. 18:08 Reassessment: No changes from previously documented assessment. Patient and/or family ag7 updated on plan of care and expected duration. Pain level reassessed. Patient is alert, oriented x 3, equal unlabored respirations, skin warm/dry/pink. Vital Signs: 15:41 BP 152 / 84; Pulse 76; Resp 18; Temp 97.6(T); Pulse Ox 96% ; Weight 84.82 kg; Height 5 hall ft. 4 in. (162.56 cm); 17:08 BP 114 / 63; Pulse 59; Resp 16; Temp 98.6; Pulse Ox 100% on R/A; Pain 9/10; ag7 18:55 BP 123 / 73; Pulse 71; Resp 16 S; Pulse Ox 100% on R/A; Pain 9/10; ag7 20:17 BP 122 / 72; Pulse 74; Resp 17; Pulse Ox 100% on R/A; kd3 15:41 Body Mass Index 32.10 (84.82 kg, 162.56 cm) ED Course: 15:29 Patient arrived in ED. as 15:43 Triage completed. hall 15:43 Arm band placed on. hall 16:36 Urine Microscopic Only Sent. hall 16:36 Urine Culture Sent. hall 16:36 Urine Culture Sent. hall 16:36 Urine Microscopic Only Sent. hall 17:04 Neel Valenzuela PA is PHCP. jr8 17:04 Zane Herring MD is Attending Physician. jr8 17:08 Inserted saline lock: 20 gauge in right antecubital area, using aseptic technique. IV ag7 is patent, is intact, Flushed right antecubital saline lock 10ml. 17:37 Tracee Bill, RN is Primary Nurse. ag7 18:06 CT Stone Protocol In Process Unspecified. EDMS 18:47 US Transvaginal Study (Probe) In Process Unspecified. EDMS 20:17 Patient has correct armband on for positive identification. kd3 20:17 No provider procedures requiring assistance completed. IV discontinued, intact, kd3 bleeding controlled, No redness/swelling at site. Pressure dressing applied. Administered Medications: 19:05 Drug: morphine 4 mg Route: IVP; Site: right antecubital; ag7 20:16 Follow up: Response: No adverse reaction kd3 19:05 Drug: Zofran (Ondansetron) 4 mg Route: IVP; Site: right antecubital; ag7 20:16 Follow up: Response: No adverse reaction kd3 20:07 Drug: Pepcid (famotidine) 20 mg Route: IVP; Site: right antecubital; kd3 20:16 Follow up: Response: No adverse reaction kd3 20:07 Drug: Zofran (Ondansetron) 4 mg Route: IVP; Site: right antecubital; kd3 20:16 Follow up: Response: No adverse reaction kd3 Outcome: 19:00 Discharge ordered by . jr8 20:17 Discharged to home ambulatory. kd3 20:17 Condition: stable 20:17 Condition: stable 20:17 Discharge instructions given to patient, family, Instructed on discharge instructions, follow up and referral plans. Demonstrated understanding of instructions, follow-up care. 20:18 Patient left the ED. kd3 Signatures: Dispatcher [employer] Jinny Boyce Josh, PA PA jr8 Chayito Lopez RN RN kd3 Keri-StageKimberly tran RN RN hall Tracee Bill, RN RN ag7 Corrections: (The following items were deleted from the chart) 18:31 17:08 GI: Bowel sounds present X 4 quads. Abd is soft in left lower quadrant Abdomen is ag7 tender to palpation Reports lower abdominal pain, bloating, ag7
--- NOTE | 2022-02-13 19:01 | RAD REPORT ---
EXAM DESCRIPTION: US - Transvaginal Study Probe - 02/13/2022 6:47 pm CLINICAL HISTORY: Pelvic pain COMPARISON: February 13, 2022 CT FINDINGS: The uterus measures 11 x 5 x 7cm. A fibroid is not seen. The endometrial stripe measures 1 3 millimeters Nabothian cysts within cervix Right ovary contains blood flow. 2 centimeter cyst Left ovary not seen secondary to its 5 position The right and left at adnexa unremarkable No significant free fluid is seen. IMPRESSION: 2 centimeter right ovarian cyst without significant free fluid
[2022-02-13] MEDS ORDERED: FAMOTIDINE 20 MG/2 ML VIAL IV ONE (19:56)
[2022-02-13 22:01] VITALS: TEMP 98.6; O2SAT 100
[2022-02-13 22:20] VITALS: BP 122/72
== END 2022-02-13 20:18 | disposition home or self-care (01) ==
LOC: ER 15:25
DX: R10.32 Left lower quadrant pain (principal); R11.0 Nausea; Z88.5 Allergy status to narcotic agent; Z88.6 Allergy status to analgesic agent; Z91.018 Allergy to other foods; Z91.041 Radiographic dye allergy status
CPT/HCPCS: 87088; 85025; 87086; 36415; 81025; 83690; 80053; 76377; 74176; 76830; J2405 ×2; 81003; 81015; 96374; 96375; 99284

== ENCOUNTER 2022-05-22 16:24 | Emergency (ER) | payer OTHER ==
--- OUTSIDE RECORDS SUMMARY | 2022-05-22 16:26 | XMS REPORT | Continuity of Care Document ---
:1990 Author Organization [facility] t Address [address] [place] [address] Care Team Providers Name Role Phone Clarice DAMON Primary Care Physician Unavailable Alejandro CHU Attending Clinician Unavailable Alejandro Chu MD Attending Clinician Cassandra PAC, S Attending Clinician Jim WATERSP, R Attending Clinician Payers Payer Name Policy Type Policy Number Effective Date Expiration Date S ource Problems Condition Condition Condition Status Onset Resolution Last Treating Co mments Source Name Details Category Date Date Treatment Clinician Date Encounter Encounter Disease Active Uni vers for for 05-10 ity of surve[place] ce of 00 Medical contracept contracept Br anch saman, saman, unspecifie unspecifie d d 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 History of History of Disease Active U nivers bilateral bilateral 6-16 ity of tubal tubal 00:00: [place] ligation ligation 00 Medica l Branch Overweight Overweight Disease Active U nivers (BMI (BMI 6-16 ity of 25.0-29.9) 25.0-29.9) [place] [facility] S/P S/P Disease Active Univers 4-06 ity of section section 00:00: [place] [facility] Disease Active Univers contractio contractio 3-29 it y of ns ns 00:00: [place] [facility] History of History of Disease Active 2019-11 U nivers 1-30 ity of delivery delivery 00:00: [place] [facility] History of History of Disease Active 2019-11 U nivers cholecyste cholecyste 1-30 it y of ctomy ctomy 00:00: [place] [facility] Cholelithi Cholelithi Disease Active 2019-11 U nivers asis asis 1-18 [place] of affecting [place] [facility] in second in second Bran ch trimester, trimester, antepartum antepartum Gallstones Gallstones Disease Active 2019-11 Overview : Univers 1-17 Formattin ity of 00:00: g of this 00 note Medical might be Branch different from the original. Added automatic ally from request for surgery [id number] Nausea and Nausea and Disease Active 2019-11 U nivers vomiting vomiting 0-17 ity of in in 00:00: [place] 00 [facility] Branch 9 weeks 9 weeks Disease Active 2019-11 Univers gestation gestation 0-17 ity of of of 00:00: [place] 00 [facility] Branch Hyperemesi Hyperemesi Disease Active 2019-11 U nivers s s 0-07 ity of gravidarum gravidarum 00:[place] before end before end 00 Me dical of 22 week of 22 week Br anch gestation gestation with with dehydratio dehydratio n n Obesity Obesity Disease Active 2019-11 Univers (BMI (BMI 0-07 ity of 30-39.9) 30-39.9) 00:00: [place] [facility] Hyperemesi Hyperemesi Disease Active 2019-11 U nivers s s 0-07 ity of gravidarum gravidarum [place] [facility] [place] Desires Desires Disease Active Univers 08-03 ity of (vaginal (vaginal 00:00: [place] 00 Medical after after Branch ) ) trial trial Special Special Disease Active Univers screening screening 08-03 ity of examinatio examinatio [place] for n for 00 Medical viral viral Branch disease disease Disease Active U nivers care and care and 2-14 ity of examinatio examinatio [place] n of n of 00 Medical lactating lactating Bran ch mother mother Previous Previous Disease Active Unive rs 1-26 ity of section section 00:00: [place] complicati complicati 00 Me dical ng ng Branch Atypical Atypical Disease Active Unive rs squamous squamous 1-24 ity of cells of cells of 00:00: [place] undetermin undetermin 00 Me dical ed ed Branch significan significan ce (ASCUS) ce (ASCUS) on on Papanicola Papanicola ou smear ou smear of cervix of cervix 33 weeks 33 weeks Disease Active 2017-11 Unive rs gestation gestation 2-29 ity of of of 00:00: [place] 00 [facility] Nausea and Nausea and Disease Active U nivers vomiting vomiting 8-22 ity of during during 00:00: [place] 00 [facility] BMI BMI Disease Active Univers 32.0-32.9, 32.0-32.9, 7-07 it y of adult adult 00:00: [place] 00 [facility] Branch Maternal Maternal Disease Active Overview: Un anh varicella, varicella, 6 Formattin ity of non-immune non-immune 00:00: g of this [place] 00 note Medical might be Branch different from the original. Address pp Rubella Rubella Disease Active Overview: Univ ers non-immune non-immune 6- Formattin ity of status, status, 00:00: g of this [place] antepartum antepartum 00 note Me dical might be Branch different from the original. Address pp Supervisio Supervisio Disease Active U nivers n of high n of high 6-26 ity of risk risk 00:00: [place] 00 [facility] in third in third Branch trimester trimester Multiparit Multiparit Disease Active U nivers y y 6-26 ity of 00:00: [place] 00 Medical Branch Well woman Well woman Disease Active U nivers exam exam 7-11 ity of 00:00: [place] 00 Medical Branch Obesity in Obesity in Disease Active Overview : Univers 3-03 Formattin i ty of 00:00: g of this 00 note Medical might be Branch different from the original. 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 Encounter Disease Active Uni vers for IUD for IUD 2-24 ity of removal removal 00:00: [place] and and 00 Medical reinsertio reinsertio Br anch n n ASCUS on ASCUS on Disease Active Unive rs Pap smear Pap smear -22 ity of 00:00: [place] 00 Medical Branch Allergies, Adverse Reactions, Alerts Allergy Allergy Status Severity Reaction(s) Onset Inactive Treating Comm ents Source Name Type Date Date Clinician Morphine Propensi Active Hives Univer s ty to 6-16 ity of adverse 00:00: [place] reaction 00 Medical s Branch MORPHINE DRUG Active Hives Univers INGREDI 6-16 ity of 00:00: [place] 00 Medical Branch Sodium Propensi Active Nausea Univers Citrate ty to and/or 1-24 ity of (Bulk) adverse Vomiting 00:00: [place] reaction 00 [facility] s Branch SODIUM DRUG Active N/V Univers CITRATE 1-24 ity of (BULK) 00:00: [place] 00 Medical Branch Ibuprofe Propensi Active Hives Univer s n ty to 5-22 ity of adverse 00:00: [place] reaction 00 Medical s Branch Morovis Propensi Active Hives Univers ty to 5-22 ity of adverse 00:00: [place] reaction 00 Medical s Branch IBUPROFE DRUG Active Hives Univers N INGREDI 5-22 ity of 00:00: [place] 00 Medical Branch ORANGE DRUG Active Hives Univers 5-22 ity of 00:00: [place] 00 Medical Branch Social History Social Habit Start Date Stop Date Quantity Comments Source History SDIL [facility] [place] Alcohol Frequency Medical Branch History SDOH [facility] [place] Alcohol Std Drinks Medica l Branch History SDIL [facility] [place] Alcohol Binge Medical Bra [facility] Exposure to 2022-03-17 2022-03-27 Not sure [facility] SARS-CoV-2 (event) 00:00:00 14:04:00 Medica l Branch Alcohol intake 2022-03-27 2022-03-27 0 /d [facility] 00:00:00 00:00:00 [facility] Tobacco use and 2014-04-15 2014-04-15 Never used [facility] exposure 00:00:00 00:00:00 [facility] Alcohol Comment 2014-04-15 2014-04-15 socially [facility] 00:00:00 00:00:00 [facility] Sex [birth year] [facility] 00:00:00 00:00:00 [facility] Smoking Status Start Date Stop Date Source Never smoker [facility] Medications Ordered Filled Start Stop Current Ordering Indication Dosage Frequency Signature Comments Components Source Medication Medication Date Date Medication? Clinician (SIG) Name Name No known No Univers medications 5-03 ity of 14:11: [address] No known No Univers medications 5-03 ity of 14:11: [address] Immunizations Ordered Filled Immunization Date Status Comments Sourc e Immunization Name Name TDAP 2021-01-18 Completed University of 00:00:00 [facility] TDAP 2021-01-18 Completed University of 00:00:00 [facility] Varicella 2018-12-20 Completed University of (varivax)(chicken 00:00:00 [facility] edical pox) Branch Varicella 2018-12-20 Completed University of (varivax)(chicken 00:00:00 [facility] edical pox) [place] TDAP (ADACEL) 2018-12-11 Completed University of VACCINE 00:00:00 [facility] TDAP (ADACEL) 2018-12-11 Completed University of VACCINE 00:00:00 [facility] HPV9 2016-06-04 Completed University of 00:00:00 [facility] HPV9 2016-06-04 Completed University of 00:00:00 [facility] TDAP 2015-04-06 Completed University of 00:00:00 [facility] TDAP 2015-04-06 Completed University of 00:00:00 [facility] Td 2004-11-25 Completed University of 00:00:00 [facility] Tetanus/Diptheria 2004-11-25 Completed Univers ity of 00:00:00 [facility] Td 2004-11-25 Completed University of 00:00:00 [facility] Tetanus/Diptheria 2004-11-[address] [facility] ity of 00:00:00 [facility] Vital Signs Vital Name Observation Time Observation Value Comments Source Systolic blood 2022-03-27 19:29:00 122 mm[Hg] Univer sity [facility] [place] Diastolic blood 2022-03-27 19:29:00 80 mm[Hg] Unive rsity [facility] [place] Heart rate 2022-03-27 19:29:00 105 /min [facility] Body height 2022-03-27 19:29:00 162.6 cm [facility] Body weight 2022-03-27 19:29:00 87.317 kg [facility] BMI 2022-03-27 19:29:00 33.04 kg/m2 [facility] Procedures This patient has no known procedures. Encounters Start End Encounter Admission Attending Care Care Encounter Source Date/Time Date/Time Type Type Clinicians Facility Department ID 2022-04-20 2022-04-20 [id number] Univers 00:00:00 00:00:00 CHARLES [id number] [facility] 2022-03-28 2022-03-28 [facility] [id number] Univers [facility]:00[facility] [id number] [facility] y of [place] [id number] Jose as MARY ANN?BLEA [id number] [address] MEDICAL OFFICE BUILDING 2022-03-27 2022-03-27 [facility] [id number] Univers 14:30:00 23:59:00 CHARLES [facility] 2022-03-27 2022-03-27 Office 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
[2022-05-22 17:05] LABS: Lymphocytes % 7.2 % (15.3-44.8); MPV 8.2 fL (7.6-11.3); RBC Red Blood Cell Count 5.16 M/uL (3.86-4.86)
[2022-05-22] MEDS ORDERED: NA CHLORIDE 0.9% 1,000 ML ONE (17:09)
[2022-05-22] MEDS ORDERED: MORPHINE 4 MG/ML SYR ONE ×2 (17:09→17:48)
[2022-05-22] MEDS ORDERED: ONDANSETRON 4 MG/2 ML VIAL ONE (17:09)
[2022-05-22] MEDS ORDERED: FAMOTIDINE 20 MG/2 ML VIAL IV ONE (17:10)
[2022-05-22] MEDS ORDERED: NA CHLORIDE 0.9% 0 ML ONE (17:10)
[2022-05-22 17:26] LABS: Albumin 4.3 g/dL (3.4-5.0); Bilirubin Total 0.8 mg/dL (0.2-1.0); Protein, Total 8.1 g/dL (6.4-8.2)
[2022-05-22 17:27] LABS: Potassium 4.1 mmol/L (3.5-5.1)
--- NOTE | 2022-05-22 18:06 | RAD REPORT ---
EXAM DESCRIPTION: CT - Abdomen Pelvis Wo Contrast - 05/22/2022 5:54 pm CLINICAL HISTORY: Abdominal pain. Abdominal pain, acute, nonlocalized COMPARISON: [place] Protocol dated 02/13/2022 TECHNIQUE: CT imaging of the abdomen and pelvis was performed without contrast. Solid organ, bowel a nd vascular assessment is limited due to lack of IV and oral contrast. All CT scans are performed using dose optimization technique as appropriate and may include automated exposure control or mA/KV adjustment according to patient size. FINDINGS: The lower lung busch are clear.Cholecystectomy clips. The liver, spleen, pancreas, adrenal glands and kidneys are within normal limits for a limited non-co ntrast examination. No bowel obstruction, free air, free fluid or abscess. A short appendiceal stump is noted. Small fat containing umbilical hernia. The osseous structures are within normal limits. IMPRESSION: No acute intra-abdominal or pelvic findings. A limited non-contrast examination was performed as detailed.
[2022-05-22] MEDS ORDERED: PROMETHAZINE INJ 25 MG/ML AMP ONE (18:51)
[2022-05-22 19:01] LABS: Urine Blood Negative (Negative); Urine Glucose Negative (Negative); Urine Protein 1+ (Negative); Urine Specific Gravity >=1.030 (1.005-1.030); Urine pH 5.5 (5.0-7.0)
[2022-05-22] MEDS ORDERED: CEFTRIAXONE 1000 MG/VIAL ONE (19:26)
[2022-05-22] MEDS ORDERED: NA CHLORIDE 0.9% 50 ML ONE (19:26)
[2022-05-22 19:35] LABS: Barbiturates NEGATIVE (NEGATIVE); Benzodiazepines NEGATIVE (NEGATIVE); Cocaine NEGATIVE (NEGATIVE); METHAMPHETAM NEGATIVE (NEGATIVE); Methadone NEGATIVE (NEGATIVE); Opiates POSITIVE (NEGATIVE); Phencyclidine NEGATIVE (NEGATIVE); THC Cannibis POSITIVE (NEGATIVE)
--- NOTE | 2022-05-22 20:03 | ER ---
Nurse's Notes [facility] Name: Suraj Fuentes Age: 31 yrs Sex: Female : 1990 Arrival Date: 05/22/2022 Time: 16:25 Bed 23 Private MD: Diagnosis: Nausea with vomiting, unspecified;Diarrhea, unspecified;UTI/ Urinary tract infection, site not specified Presentation: 05/22 16:30 Chief complaint: Patient states: N/V/D that began this morning. Pt states, "I've had ss food poisoning before and I know what it feels like. I ate something last night that doesn't agree with me.". Coronavirus screen: Client denies travel out of the [place] in the last 14 days. Ebola Screen: Patient denies exposure to infectious person. Patient denies travel to an Ebola-affected area in the 21 days before illness onset. Initial Sepsis Screen: Does the patient meet any 2 criteria? No. Patient's initial sepsis screen is negative. Does the patient have a suspected source of infection? No. Patient's initial sepsis screen is negative. Risk Assessment: Do you want to hurt yourself or someone else? Patient reports no desire to harm self or others. Onset of symptoms was May 22, 2022. 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 - Social history:: Smoking status: Patient denies any tobacco usage or history of. Screenin:45 Abuse screen: Denies threats or abuse. Denies injuries from another. Nutritional jl7 screening: No deficits noted. Tuberculosis screening: No symptoms or risk factors identified. Fall Risk IV access (20 points). Total Chaidez Fall Scale indicates No Risk (0-24 pts). Assessment: 16:45 General: Appears in no apparent distress. uncomfortable, Behavior is cooperative, jl7 anxious. Pain: Complains of pain in epigastric area Pain currently is 10 out of 10 on a pain scale. Neuro: Level of Consciousness is awake, alert, obeys commands, Oriented to person, place, time, situation. Cardiovascular: Patient's skin is warm and dry. Respiratory: Airway is patent Respiratory effort is even, unlabored, Respiratory pattern is regular, symmetrical. GI: Abdomen is round non-distended, Pt is actively vomiting bile. : Denies burning with urination, inability to void, pain with urination urinary frequency. Derm: Skin is pink, warm \\T\\ dry. 17:45 Reassessment: Patient appears in no apparent distress at this time. No changes from jl7 previously documented assessment. Patient and/or family updated on plan of care and expected duration. Pain level reassessed. Patient is alert, oriented x 3, equal unlabored respirations, skin warm/dry/pink. 19:14 Reassessment: Pt refused COVID swab at this time, ERD notified. 7 19:38 Reassessment: Patient appears in no apparent distress at this time. Patient and/or jb4 family updated on plan of care and expected duration. Pain level reassessed. Patient is alert, oriented x 3, equal unlabored respirations, skin warm/dry/pink. Vital Signs: 16:30 Resp 20; Weight 87.54 kg; Height 5 ft. 4 in. (162.56 cm); Pain 10/10; ss 16:31 BP 115 / 84; Pulse 110; Pulse Ox 99% on R/A; ss 16:31 Temp 97.0(TE); ss 18:56 BP 108 / 68; Pulse 83; Resp 15; Pulse Ox 97% ; jl7 19:38 BP 104 / 64; Pulse 68; Resp 16; Pulse Ox 96% on R/A; jb4 16:30 Body Mass Index 33.13 (87.54 kg, 162.56 cm) ED Course: 16:25 Patient arrived in ED. as 16:30 Triage completed. ss 16:30 Arm band placed on right wrist. ss 16:31 Pancho Pryor PA is PHCP. cp 16:31 Zane Herring MD is Attending Physician. cp 16:43 Toni Bryant RN is Primary Nurse. jl7 16:56 Initial lab(s) drawn, by me, sent to lab. Inserted saline lock: 20 gauge in right dh3 antecubital area, using aseptic technique. Blood collected. 17:45 Patient has correct armband on for positive identification. Bed in low position. Call jl7 light in reach. Side rails up X 1. Pulse ox on. NIBP on. Warm blanket given. 17:45 Urine collected: clean catch specimen, cloudy. jl7 17:56 CT Abd/Pelvis - Without Contrast In Process Unspecified. EDMS 20:18 No provider procedures requiring assistance completed. IV discontinued, intact, jb4 bleeding controlled, No redness/swelling at site. Pressure dressing applied. Administered Medications: 17:10 Drug: NS 0.9% 1000 ml Route: IV; Rate: 1 bolus; Site: right antecubital; jl7 17:10 Drug: Pepcid (famotidine) 20 mg Route: IVP; Site: right antecubital; jl7 17:30 Follow up: Response: No adverse reaction jl7 17:12 Drug: morphine 4 mg Route: IVP; Infused Over: 4 mins; Site: right antecubital; jl7 17:30 Follow up: Response: No adverse reaction; Pain is unchanged, physician notified jl7 17:16 Drug: Zofran (Ondansetron) 4 mg Route: IVP; Site: right antecubital; jl7 17:35 Follow up: Response: No adverse reaction; Nausea is decreased jl7 17:42 Drug: morphine 4 mg Route: IVP; Infused Over: 4 mins; Site: right antecubital; jl7 18:00 Follow up: Response: No adverse reaction; Pain is decreased jl7 18:45 Drug: Phenergan (promethazine) 12.5 mg Route: IVP; Site: right antecubital; jl7 19:27 Drug: Rocephin - (cefTRIAXone) 1 grams Route: IVPB; Infused Over: 30 mins; Site: right jb4 antecubital; Medication: 20:18 VIS not applicable for this client. jb4 Outcome: 20:02 Discharge ordered by MD. johansen 20:18 Discharged to home with family. jb4 20:18 Condition: stable 20:18 Discharge instructions given to patient, Instructed on discharge instructions, follow up and referral plans. Demonstrated understanding of instructions, follow-up care, medications, Prescriptions given X 3. 20:19 Patient left the ED. jb4 Signatures: Dispatcher [employer] EDMS Jinny Rendon Shelby RN RN ss Pancho Pryor PA PA cp Bryson, James, RN RN jb4 Toni Bryant RN RN jl7 Lakisha Smith 3
--- NOTE | 2022-05-22 20:03 | EDPHYS ---
Physician Documentation [facility] Name: Suraj Fuentes Age: 31 yrs Sex: Female : 1990 Arrival Date: 05/22/2022 Time: 16:25 Bed 23 Private MD: ED Physician Zane Herring HPI: 05/22 16:45 This 31 yrs old Female presents to ER via Ambulatory with complaints of cp Vomiting/Diarrhea, Abdominal Pain. 16:45 The patient presents to the emergency department with nausea, with "dry heaves", cp vomiting, that is continuous, described as bilious, diarrhea, that is continuous. 16:45 Onset: The symptoms/episode began/occurred this morning. cp 16:45 Possible causes: bad food exposure. cp 16:45 Associated signs and symptoms: Pertinent negatives: fever, GI bleeding. Severity of cp symptoms: in the emergency department the symptoms are unchanged despite home interventions. 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 - Social history:: Smoking status: Patient denies any tobacco usage or history of. ROS: 16:50 Constitutional: Negative for body aches, chills, fever. cp 16:50 Eyes: Negative for injury, pain, redness, and discharge. cp 16:50 ENT: Negative for drainage from ear(s), ear pain, sore throat, difficulty swallowing, difficulty handling secretions. 16:50 Cardiovascular: Negative for chest pain, palpitations. 16:50 Respiratory: Negative for cough, shortness of breath, wheezing. 16:50 Abdomen/GI: Positive for abdominal pain, nausea, vomiting, and diarrhea, Negative for hematemesis, black/tarry stool, rectal bleeding. 16:50 Neuro: Negative for altered mental status, headache. 16:50 All other systems are negative. Exam: 17:00 Constitutional: The patient appears in no acute distress, alert, awake, non-toxic, well cp developed, well nourished, uncomfortable. 17:00 Head/Face: Normocephalic, atraumatic. cp 17:00 Eyes: Periorbital structures: appear normal, Conjunctiva: normal, no exudate, no injection, Sclera: no appreciated abnormality, Lids and lashes: appear normal, bilaterally. 17:00 ENT: External ear(s): are unremarkable, Nose: is normal, Mouth: Lips: moist, Oral mucosa: pink and intact, moist, Posterior pharynx: Airway: no evidence of obstruction, patent. 17:00 Chest/axilla: Inspection: normal. 17:00 Cardiovascular: Rate: tachycardic, Rhythm: regular. 17:00 Respiratory: the patient does not display signs of respiratory distress, Respirations: normal, no use of accessory muscles, no retractions, labored breathing, is not present, Breath sounds: are clear throughout, no decreased breath sounds, no stridor, no wheezing. 17:00 Abdomen/GI: Inspection: abdomen appears normal, Bowel sounds: active, all quadrants, Palpation: soft, in all quadrants, severe abdominal tenderness, in all quadrants, rebound tenderness, is not appreciated, voluntary guarding, is not appreciated. 17:00 Back: pain, is absent, ROM is normal. 17:00 Neuro: Orientation: to person, place \\T\\ time. Mentation: is normal, Motor: moves all fours, strength is normal, Sensation: is normal. Vital Signs: 16:30 Resp 20; Weight 87.54 kg; Height 5 ft. 4 in. (162.56 cm); Pain 10/10; ss 16:31 BP 115 / 84; Pulse 110; Pulse Ox 99% on R/A; ss 16:31 Temp 97.0(TE); ss 18:56 BP 108 / 68; Pulse 83; Resp 15; Pulse Ox 97% ; jl7 19:38 BP 104 / 64; Pulse 68; Resp 16; Pulse Ox 96% on R/A; jb4 16:30 Body Mass Index 33.13 (87.54 kg, 162.56 cm) ss MDM: 16:32 Patient medically screened. cp 20:00 Data reviewed: vital signs, nurses notes, lab test result(s), radiologic studies, CT cp scan. 20:00 Counseling: I had a detailed discussion with the patient and/or guardian regarding: the cp historical points, exam findings, and any diagnostic results supporting the discharge/admit diagnosis, lab results, radiology results, to return to the emergency department if symptoms worsen or persist or if there are any questions or concerns that arise at home. Response to treatment: the patient's symptoms have markedly improved after treatment, VSS. Nausea and pain markedly improved and vomiting resolved. Patient observed tolerating po fluids. Will discharge to home for continued monitoring. 05/22 16:38 Order name: CBC with Diff; Complete Time: 17:31 cp 05/22 18:02 Interpretation: Normal except: WBC 13.2; RBC 5.16; HGB 15.6; ANGELITO% 87.9; LYM% 7.2; NEUT cp A 11.6. 05/22 16:38 Order name: CMP; Complete Time: 17:31 cp 05/22 18:02 Interpretation: Normal except: GLUC 132; GFR 81; GLOB 3.8. 05/22 16:38 Order name: Lipase; Complete Time: 17:31 cp 05/22 17:32 Order name: UDS; Complete Time: 20:04 cp 05/22 17:32 Order name: CT Abd/Pelvis - Without Contrast; Complete Time: 18:27 cp 05/22 18:28 Interpretation: Report reviewed. 05/22 19:02 Order name: Urine Dipstick-Ancillary; Complete Time: 19:14 EDMS 05/22 19:31 Interpretation: Normal except: UPROT 1+; U NIT Positive. 05/22 16:38 Order name: IV Saline Lock; Complete Time: 16:59 cp 05/22 16:38 Order name: Labs collected and sent; Complete Time: 16:59 cp 05/22 16:38 Order name: Urine Dipstick-Ancillary (obtain specimen); Complete Time: 18:56 cp 05/22 16:38 Order name: Urine Test (obtain specimen); Complete Time: 18:56 cp 05/22 18:28 Order name: PO challenge; Complete Time: 18:42 cp 05/22 19:32 Order name: PO challenge; Complete Time: 19:52 cp Administered Medications: 17:10 Drug: NS 0.9% 1000 ml Route: IV; Rate: 1 bolus; Site: right antecubital; jl7 17:10 Drug: Pepcid (famotidine) 20 mg Route: IVP; Site: right antecubital; jl7 17:30 Follow up: Response: No adverse reaction jl7 17:12 Drug: morphine 4 mg Route: IVP; Infused Over: 4 mins; Site: right antecubital; jl7 17:30 Follow up: Response: No adverse reaction; Pain is unchanged, physician notified jl7 17:16 Drug: Zofran (Ondansetron) 4 mg Route: IVP; Site: right antecubital; jl7 17:35 Follow up: Response: No adverse reaction; Nausea is decreased jl7 17:42 Drug: morphine 4 mg Route: IVP; Infused Over: 4 mins; Site: right antecubital; jl7 18:00 Follow up: Response: No adverse reaction; Pain is decreased jl7 18:45 Drug: Phenergan (promethazine) 12.5 mg Route: IVP; Site: right antecubital; jl7 19:27 Drug: Rocephin - (cefTRIAXone) 1 grams Route: IVPB; Infused Over: 30 mins; Site: right jb4 antecubital; Disposition Summary: 05/22/22 20:02 Discharge Ordered Location: Home cp Problem: new cp Symptoms: have improved cp Condition: Stable cp Diagnosis - Nausea with vomiting, unspecified cp - Diarrhea, unspecified cp - UTI/ Urinary tract infection, site not specified cp Followup: cp - With: Private Physician - When: 1 - 2 days - Reason: Recheck today's complaints Discharge Instructions: - Discharge Summary Sheet cp - Food Choices to Help Relieve Diarrhea, Adult cp - Diarrhea, Adult cp - Nausea and Vomiting, Adult cp - Urinary Tract Infection, Adult cp Forms: - Medication Reconciliation Form cp - Thank You Letter cp - Antibiotic Education cp - Prescription Opioid Use cp Prescriptions: - Zofran 4 mg Oral Tablet - take 1 tablet by ORAL route every 12 hours As needed; 20 tablet; Refills: 0, cp Product Selection Permitted - Bactrim DS 800-160 mg Oral Tablet - take 1 tablet by ORAL route every 12 hours for 7 days; 14 tablet; Refills: 0, cp Product Selection Permitted - dicyclomine 20 mg Oral Tablet - take 1 tablet by ORAL route 4 times per day; 30 tablet; Refills: 0, Product cp Selection Permitted Signatures: Dispatcher MedHo Rita Teauge RN RN ss Pancho Pryor PA PA cp Floyd Cardenas, RN RN jb4 Toni Bryant RN RN jl7 Corrections: (The following items were deleted from the chart) 18:03 18:02 Normal except: GLUC 132; GFR 81. cp cp
[2022-05-22 20:46] VITALS: TEMP 97
[2022-05-22 20:57] VITALS: BP 104/64; O2SAT 96
== END 2022-05-22 20:19 | disposition home or self-care (01) ==
LOC: ER 16:24
DX: N39.0 Urinary tract infection, site not specified (principal); R19.7 Diarrhea, unspecified; Z88.6 Allergy status to analgesic agent; Z88.5 Allergy status to narcotic agent; Z91.018 Allergy to other foods; Z91.041 Radiographic dye allergy status
CPT/HCPCS: 85025; 36415; 81003; 83690; 80053; 80307; 74176; J2550; J7030; J2405; J3490

== ENCOUNTER 2022-08-14 11:53 | Emergency (ER) | payer OTHER ==
--- OUTSIDE RECORDS SUMMARY | 2022-08-14 11:57 | XMS REPORT | Continuity of Care Document ---
:1990 Author Organization [facility] t Address [address] [place] [address] Care Team Providers Name Role Phone MARISOL CRISTHIAN Oneil Primary Care Physician Unavailable CHARLES CHU Attending Clinician Unavailable Charles Chu MD Attending Clinician Reji Dalal Attending Clinician Cornelius Thomas Attending Clinician Payers Payer Name Policy Type Policy Number Effective Date Expiration Date S ource Problems Condition Condition Condition Status Onset Resolution Last Treating Co mments Source Name Details Category Date Date Treatment Clinician Date Encounter Encounter Disease Active Uni vers for for 6-16 ity of surveillan [place] of ce of 00 Medical contracept contracept Br anch saman, saman, unspecifie unspecifie d d contracept 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 History of History of Disease Active U nivers bilateral bilateral 6-16 ity of tubal tubal 00:00: [place] ligation ligation 00 Medica l Branch Overweight Overweight Disease Active U nivers (BMI (BMI 6-16 ity of 25.0-29.9) 25.0-29.9) [place] S/P S/P Disease Active Univers 4-06 ity of section section 00:00: [place] [facility] Disease Active Univers contractio contractio 3-29 it y of ns ns 00:00: [place] [facility] History of History of Disease Active 2019-11 U nivers 1-30 ity of delivery delivery 00:00: [place] [facility] History of History of Disease Active 2019-11 U nivers cholecyste cholecyste 1-30 it y of ctomy ctomy 00:00: [place] [facility] Cholelithi Cholelithi Disease Active 2019-11 U nivers asis asis 1-18 [place] [facility] in second in second Bran ch trimester, trimester, antepartum antepartum Gallstones Gallstones Disease Active 2019-11 Overview : Univers 1-17 Formattin ity of 00:00: g of this [place] 00 note Medical might be Branch different from the original. Added automatic ally from request for surgery [id number] Nausea and Nausea and Disease Active 2019-11 U nivers vomiting vomiting 0-17 ity of in in 00:00: [place] 00 [facility] Branch 9 weeks 9 weeks Disease Active 2019- Univers gestation gestation 0-17 ity of of of 00:00: [place] 00 [facility] Branch Hyperemesi Hyperemesi Disease Active 2019- U nivers s s 0-07 ity of gravidarum gravidarum 00:[place] before end before end 00 Me dical of 22 week of 22 week Br anch gestation gestation with with dehydratio dehydratio n n Obesity Obesity Disease Active 2019-11 Univers (BMI (BMI 0-07 ity of 30-39.9) 30-39.9) 00:00: [place] [facility] Hyperemesi Hyperemesi Disease Active 2020- U nivers s s 0-07 ity of gravidarum gravidarum [place] 00 [place] Desires Desires Disease Active Univers 9 ity of (vaginal (vaginal 00:00: [place] 00 [...] gestation 2-29 ity of of of 00:00: [place] 00 [facility] Nausea and Nausea and Disease Active U nivers vomiting vomiting 8-22 ity of during during 00:00: [place] 00 [facility] BMI BMI Disease Active Univers 32.0-32.9, 32.0-32.9, 7-07 it y of adult adult 00:00: [place] 00 [facility] Branch Maternal Maternal Disease Active Overview: Un anh varicella, varicella, 6 Formattin ity of non-immune non-immune 00:00: g of this [place] 00 note Medical might be Branch different from the original. Address pp Rubella Rubella Disease Active Overview: Univ ers non-immune non-immune 6 Formattin ity of status, status, 00:00: g of this [place] antepartum antepartum 00 note Me dical might be Branch different from the original. Address pp Supervisio Supervisio Disease Active U nivers n of high n of high 6-26 ity of risk risk 00:00: [place] 00 Medi estella in third in third Branch trimester trimester Multiparit Multiparit Disease Active U nivers y y 6-26 ity of 00:00: [place] 00 Medical Branch Well woman Well woman Disease Active U nivers exam exam 7-11 ity of 00:00: [place] 00 Medical Branch Obesity in Obesity in Disease Active Overview : Univers 3-03 Formattin i ty of 00:00: g of this [place] 00 note Medical might be Branch different from the original. 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 Encounter Encounter Disease Active Uni vers [...] 6-16 ity of adverse 00:00: [place] reaction Medical Branch MORPHINE DRUG Active Hives Univers INGREDI 6-16 ity of 00:00: [place] 00 Medical [place] Sodium Propensi Active Nausea Univers Citrate ty to and/or 1-24 ity of (Bulk) adverse Vomiting 00:00: [place] reaction [facility] SODIUM DRUG Active N/V Univers CITRATE 1-24 ity of (BULK) 00:00: [place] 00 Medical [place] Ibuprofe Propensi Active Hives Univer s n ty to 5-22 ity of adverse 00:00: [place] reaction 00 Medical s Branch [place] Propensi Active Hives Univers ty to 5-22 ity of adverse 00:00: [place] reaction 00 [facility] Branch IBUPROFE DRUG Active Hives Univers N INGREDI 5-22 ity of 00:00: [place] 00 Medical Branch ORANGE DRUG Active Hives Univers 5-22 ity of 00:00: [place] 00 Medical Branch Social History Social Habit Start Date Stop Date Quantity Comments Source History SDOH [facility] [place] Alcohol Frequency Medical Branch History SDOH [facility] [place] Alcohol Std Drinks Medica l Branch History SDOH [facility] [place] Alcohol Binge Medical Bra formerly [facility] Exposure to 2022-03-17 2022-03-27 Not sure [facility] SARS-CoV-2 (event) 00:00:00 14:04:00 Medica l Branch Alcohol intake 2022-03-27 2022-03-27 0 /d [facility] 00:00:00 00:00:00 Medical Branch Tobacco use and 2014-04-15 2014-04-15 Never used [facility] exposure 00:00:00 00:00:00 Medical Branch Alcohol Comment 2014-04-15 2014-04-15 socially [facility] 00:00:00 00:00:00 Medical Branch Sex Ass[birth year] [facility] 00:00:00 00:00:00 Medical Branch Smoking Status Start Date Stop Date Source Never smoker [facility] Medications Ordered Filled Start Stop Current Ordering Indication Dosage Frequency Signature Comments Components Source Medication Medication Date Date Medication? Clinician (SIG) Name Name No known No Univers medications 5-03 ity of 14:11: [address] No known No Univers medications 5-03 ity of 14:11: [address] Immunizations Ordered Filled Immunization Date Status Comments Sourc e Immunization Name Name TDAP 2021-01-18 Completed University of 00:00:00 [facility] TDAP 2021-01-18 Completed University of 00:00:00 [facility] Varicella 2018-12-20 Completed University of (varivax)(chicken 00:00:00 [place] M edical pox) Branch Varicella 2018-12-20 Completed University of (varivax)(chicken 00:00:00 [place] M edical pox) Branch TDAP (ADACEL) 2018-12-11 Completed University of VACCINE 00:00:00 [facility] TDAP (ADACEL) 2018-12-11 Completed University of VACCINE 00:00:00 [facility] HPV9 2016-06-04 Completed University of 00:00:00 [facility] HPV9 2016-06-04 Completed University of 00:00:00 [facility] TDAP 2015-04-06 Completed University of 00:00:00 [facility] TDAP 2015-04-06 Completed University of 00:00:00 [facility] Td 2004-11-25 Completed University of 00:00:00 [facility] Tetanus/Diptheria 2004-11-25 Completed Univers ity of 00:00:00 [facility] Td 2004-11-25 Completed University of 00:00:00 [facility] Tetanus/Diptheria 2004-11-25 Completed Univers ity of 00:00:00 [facility] Vital Signs Vital Name Observation Time Observation Value Comments Source Systolic blood 2022-03-27 19:29:00 122 mm[Hg] Univer sity [facility] Diastolic blood 2022-03-27 19:29:00 80 mm[Hg] Unive rsity [facility] Heart rate 2022-03-27 19:29:00 105 /min [facility] Body height 2022-03-27 19:29:00 162.6 cm [facility] Body weight 2022-03-27 19:29:00 87.317 kg [facility] BMI 2022-03-27 19:29:00 33.04 kg/m2 [facility] Procedures This patient has no known procedures. Encounters Start End Encounter Admission Attending Care Care Encounter Source Date/Time Date/Time Type Type Clinicians Facility Department ID 2022-04-20 2022-04-20 Outpatient Lauren CHU [facility] [id number] Univers 00:00:00 00:00:00 CHARLES [id number] [facility] 2022-03-28 2022-03-28 Telephone Vlad [facility] [id number] Univers 00:00:00 00:00:00 Charles [facility] [id number] it y of [place] [id number] Jose as MARY ANN?BLEA [id number] [address] MEDICAL OFFICE BUILDING 2022-03-27 2022-03-27 Outpatient Lauren CHU [facility] [id number] Univers 14:30:00 23:59:00 CHARLES [facility] 2022-03-27 2022-03-27 Office [facility] [id number] Univers 14:30:00 15:00:00 Visit [facility] [id number] it y of [place] [id number] Jose as MARY ANN?BLEA [id number] [place] ty[place] GOMEZ [address] [place] [address] MEDICAL OFFICE BUILDING 2021-03-22 2021-03-22 Routine Jim AZJENY [id number] 13:46:41 14:24:31 Cornelius Aguilar [employer] [id number] Visit [facility] [id number] MATERNAL [phone] & CHILD [address] [place] [address] CLINIC - [place] Results This patient has no known results.
--- NOTE | 2022-08-14 15:31 | ER ---
Nurse's Notes [facility] Name: Suraj Fuentes Age: 31 yrs Sex: Female : 1990 Arrival Date: 08/14/2022 Time: 11:55 Bed 10 Private MD: Diagnosis: Dental caries, unspecified Presentation: 08/14 12:46 Chief complaint: Patient states: throbbing tooth pain x2 days, with bleeding gums and jh5 lymth nodes swollen to left ear area, nausea. Coronavirus screen: Vaccine status: Patient reports receiving the 2nd dose of the covid vaccine. Client denies travel out of the [place] in the last 14 days. Ebola Screen: Patient negative for fever greater than or equal to 101.5 degrees Fahrenheit, and additional compatible Ebola Virus Disease symptoms Patient denies exposure to infectious person. Patient denies travel to an Ebola-affected area in the 21 days before illness onset. Initial Sepsis Screen: Does the patient meet any 2 criteria? No. Patient's initial sepsis screen is negative. Does the patient have a suspected source of infection? No. Patient's initial sepsis screen is negative. Risk Assessment: Do you want to hurt yourself or someone else? Patient reports no desire to harm self or others. Onset of symptoms was August 07, 2022. 12:46 Method Of Arrival: Ambulatory [facility] 12:46 Acuity: SHAW 4 5 Triage Assessment: 12:50 General: Appears in no apparent distress. uncomfortable, obese, unkempt, Behavior is 5 calm, cooperative, appropriate for age. Pain: Complains of pain in tooth,left side. GI: Reports nausea. 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 - Social history:: Smoking status: Patient denies any tobacco usage or history of. Screenin:55 Abuse screen: Denies threats or abuse. Nutritional screening: No deficits noted. ap3 Tuberculosis screening: No symptoms or risk factors identified. Fall Risk None identified. Assessment: 15:56 GI: ap3 Vital Signs: 12:46 BP 130 / 99; Pulse 78; Resp 18; Temp 98.6; Pulse Ox 100% ; Weight 84.37 kg; Height 5 [facility] ft. 4 in. (162.56 cm); Pain 10/10; 12:46 Body Mass Index 31.93 (84.37 kg, 162.56 cm) [facility] ED Course: 11:55 Patient arrived in ED. 4 12:01 Topher Richmond PA is PHCP. michelle 12:01 Brittney Mane MD is Attending Physician. [facility] 12:50 Triage completed. [facility] 12:50 Arm band placed on right wrist. [facility] 14:53 Sharlene Pack, ALFONZO is Primary Nurse. ap3 15:30 Roosevelt Rivera DDS is Referral Physician. [facility] 15:56 Patient has correct armband on for positive identification. Bed in low position. Call ap3 light in reach. Side rails up X 1. Pulse ox on. NIBP on. Door closed. Noise minimized. 15:56 No provider procedures requiring assistance completed. Patient did not have IV access ap3 during this emergency room visit. Administered Medications: 15:34 Drug: Zofran (Ondansetron) 4 mg Route: PO; ap3 15:57 Follow up: Response: No adverse reaction ap3 15:34 Drug: morphine 4 mg Route: IM; Site: right gluteus; ap3 15:57 Follow up: Response: Pain is decreased ap3 15:35 Not Given (change of routee): Clindamycin 600 mg IM once ap3 15:35 Drug: Clindamycin 600 mg Route: PO; ap3 15:57 Follow up: Response: No adverse reaction ap3 Medication: 15:57 VIS not applicable for this client. ap3 Outcome: 15:30 Discharge ordered by . [facility] 15:56 Discharged to home ambulatory. ap3 15:56 Condition: good 15:56 Discharge instructions given to patient, Instructed on discharge instructions, follow up and referral plans. medication usage, Demonstrated understanding of instructions, follow-up care, medications, Prescriptions given X 2. 15:57 Patient left the ED. ap3 Signatures: Topher Richmond PA PA jmm Garcia, Rubi rg4 Sharlene Pack, RN RN ap3 Minerva Mercer, RN RN jh5
--- NOTE | 2022-08-14 15:31 | EDPHYS ---
Physician Documentation [facility] Name: Suraj Fuentes Age: 31 yrs Sex: Female : 1990 Arrival Date: 08/14/2022 Time: 11:55 Bed 10 Private MD: ED Physician Brittney Mane HPI: 08/14 13:17 This 31 yrs old Female presents to ER via Ambulatory with complaints of Nausea, jmm Toothache. 13:17 The patient presents to the emergency department with nausea. Onset: The jmm symptoms/episode began/occurred today. Is a 31-year-old female with history of pancreatitis the presents emerged part with complaints of left upper molar pain. states that he has tried bqkh-wfu-rsegkzr medication without relief.. 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 Historical: - Allergies: 12:50 Demerol; jh5 12:50 Ibuprofen; 5 12:50 Iodinated Contrast Media - IV Dye; 5 12:50 ORANGES; 5 - PMHx: 12:50 GALLSTONES; hyperemesis gravidarum; Pancreatitis; 5 - PSHx: 12:50 tubal ligation; jh5 - Immunization history:: Adult Immunizations up to date. - Social history:: Smoking status: Patient denies any tobacco usage or history of. ROS: 13:17 Constitutional: Negative for fever, chills, and weight loss. jmm 13:17 ENT: Positive for dental pain. 13:17 All other systems are negative. Exam: 13:17 Constitutional: This is a well developed, well nourished patient who is awake, alert, jmm and in no acute distress. Head/Face: atraumatic. Eyes: EOMI, no conjunctival erythema appreciated 13:17 Neck: Trachea midline, Supple Chest/axilla: Normal chest wall appearance and motion. Cardiovascular: Regular rate and rhythm. No edema appreciated Respiratory: Normal respirations, no respiratory distress appreciated Abdomen/GI: Non distended Back: Normal ROM Skin: General appearance color normal MS/ Extremity: Moves all extremities, no obvious deformities appreciated, no edema noted to the lower extremities Neuro: Awake and alert Psych: Behavior is normal, Mood is normal, Patient is cooperative and pleasant 13:17 ENT: Dental exam: dental caries, that is severe, specifically in the upper left first molar (#14) and upper left second molar (#15). Vital Signs: 12:46 BP 130 / 99; Pulse 78; Resp 18; Temp 98.6; Pulse Ox 100% ; Weight 84.37 kg; Height 5 5 ft. 4 in. (162.56 cm); Pain 10/10; 12:46 Body Mass Index 31.93 (84.37 kg, 162.56 cm) 5 MDM: 13:17 Patient medically screened. [facility] 15:30 Data reviewed: vital signs, nurses notes. Counseling: I had a detailed discussion with [facility] the patient and/or guardian regarding: the historical points, exam findings, and any diagnostic results supporting the discharge/admit diagnosis, the need for outpatient follow up, to return to the emergency department if symptoms worsen or persist or if there are any questions or concerns that arise at home. Administered Medications: 15:34 Drug: Zofran (Ondansetron) 4 mg Route: PO; ap3 15:57 Follow up: Response: No adverse reaction ap3 15:34 Drug: morphine 4 mg Route: IM; Site: right gluteus; ap3 15:57 Follow up: Response: Pain is decreased ap3 15:35 Not Given (change of routee): Clindamycin 600 mg IM once ap3 15:35 Drug: Clindamycin 600 mg Route: PO; ap3 15:57 Follow up: Response: No adverse reaction ap3 Disposition Summary: 08/14/22 15:30 Discharge Ordered Location: Home [facility] Condition: Stable [facility] Diagnosis - Dental caries, unspecified [facility] Followup: [facility] - With: Roosevelt Rivera DDS - When: 2 - 3 days - Reason: Recheck today's complaints, Continuance of care, Re-evaluation by your physician Discharge Instructions: - Discharge Summary Sheet [facility] - Dental Caries, Adult [facility] Forms: - Medication Reconciliation Form [facility] - Thank You Letter [facility] - Antibiotic Education [facility] - Prescription Opioid Use [facility] Prescriptions: - Clindamycin HCl 300 mg Oral Capsule - take 1 capsule by ORAL route every 6 hours for 10 days; 40 capsule; Refills: 0, [facility] Product Selection Permitted - ondansetron 4 mg Oral tablet,disintegrating - take 1 tablet by ORAL route every 4-6 hours As needed; 20 tablet; Refills: 0, [facility] Product Selection Permitted Signatures: Topher Richmond PA PA jmm Prokisch, Amanda, RN RN ap3 Minerva Mercer, RN RN jh5
[2022-08-14] MEDS ORDERED: MORPHINE 4 MG/ML SYR ONE (15:34)
[2022-08-14] MEDS ORDERED: ONDANSETRON 4 MG (ODT) TAB ONE (15:34)
[2022-08-15 18:07] VITALS: BP 130/99; TEMP 98.6; O2SAT 100
== END 2022-08-14 15:57 | disposition home or self-care (01) ==
LOC: ER 11:53
DX: K02.9 Dental caries, unspecified (principal); Z88.5 Allergy status to narcotic agent; Z88.6 Allergy status to analgesic agent; Z91.018 Allergy to other foods; Z91.041 Radiographic dye allergy status
CPT/HCPCS: 96372; 99283; Q0162

== ENCOUNTER 2022-12-04 13:46 | Emergency (ER) | payer OTHER ==
--- OUTSIDE RECORDS SUMMARY | 2022-12-04 13:50 | XMS REPORT | Continuity of Care Document ---
:1990 Author Organization [facility] t Address [address] [place] [address] Care Team Providers Name Role Phone MARISOLCRISTHIAN RALPH Primary Care Physician Unavailable Charles James MD Attending Clinician CHARLES JAMES Attending Clinician Unavailable Ember Dalal Attending Clinician EMBER FRANKS Attending Clinician Unavailable Doctor Unassigned, Bonifay Attending Clinician Unavailable CORNELIUS ZAVALETA Attending Clinician Unavailable Cornelius Thomas Attending Clinician DAVE BERMAN Attending Clinician Unavailable BOOM BOJORQUEZ Attending Clinician Unavailable JAMAAL EPPS Attending Clinician Unavailable CHRISTINA GOMEZ Attending Clinician Unavailable EDYTA FRANCIS Attending Clinician Unavailable EDYTA FRANCIS Attending Clinician Unavailable STEVE GRANADOS Attending Clinician Unavailable STEVE GRANADOS Attending Clinician Unavailable WESLEY GRANADOS Admitting Clinician Unavailable HODA STOKES Admitting Clinician Unavailable KP SHANE Admitting Clinician Unavailable CARMELINA PRADO Admitting Clinician Unavailable STEVE GRANADOS Admitting Clinician Unavailable EDYTA FRANCIS Admitting Clinician Unavailable JOHN MERCER Admitting Clinician Unavailable Payers Payer Name Policy Type Policy Number Effective Date Expiration Date Yong moser [facility] [id number] 2018 MEDICAID 00:00:00 Problems Condition Condition Condition Status Onset Resolution [...] bilateral 6-16 ity of tubal tubal 00:00: [place] ligation ligation 00 Medica l Branch Overweight Overweight Disease Active U nivers (BMI (BMI 6-16 ity of 25.0-29.9) 25.0-29.9[place] S/P S/P Disease Active Univers 4-06 ity of section section 00:00: [place] [facility] Disease Active Univers contractio contractio 3-29 it y of ns ns 00:00: [place] [facility] History of History of Disease Active 2019-11 U nivers 1-30 ity of delivery delivery 00:00: [place] [facility] History of History of Disease Active 2019-11 U nivers cholecyste cholecyste 1-30 it y of ctomy ctomy 00:00: [place] [facility] Cholelithi Cholelithi Disease Active 2019-11 U nivers asis asis 1-18 it[place] of affecting [place] estella in second in second Bran ch trimester, trimester, antepartum antepartum Gallstones Gallstones Disease Active 2019-11 Overview : Univers 1-17 Formattin ity of 00:00: g of this [place] 00 note Medical might be Branch different from the original. Added automatic ally from request for surgery [id number] Nausea and Nausea and Disease Active 2019-11 U nivers vomiting vomiting 0-17 ity of in in 00:00: [place] [address] [facility] Branch 9 weeks 9 weeks Disease Active 2019-11 Univers gestation gestation 0-17 ity of of of 00:00: [place] [address] [facility] Branch Hyperemesi Hyperemesi Disease Active 2019-11 U nivers s s 0-07 ity of gravidarum gravidarum [place] before end before end 00 Me dical of 22 week of 22 week Br anch gestation gestation with with dehydratio dehydratio n n Obesity Obesity Disease Active 2019-11 Univers (BMI (BMI 0-07 ity of 30-39.9) 30-39.9) 00:00: [place] 00 [facility] Branch Hyperemesi Hyperemesi Disease Active 2019-11 U nivers s s 0-07 ity of gravidarum gravidarum [place] Desires Desires Disease Active Univers 9-09 ity of (vaginal (vaginal 00:00: [place] 00 Medical after after Branch ) ) trial trial Special Special Disease Active Univers screening screening 9-09 ity of examinatio examinatio [place] [...] gestation 2-29 ity of of of 00:00: [place] [address] [facility] Branch Nausea and Nausea and Disease Active U nivers vomiting vomiting 8-22 ity of during during 00:00: [place] [address] [facility] Branch BMI BMI Disease Active Univers 32.0-32.9, 32.0-32.9, 7-07 it y of adult adult 00:00: Medical Branch Maternal Maternal Disease Active Overview: Un anh varicella, varicella, 05-21 Formattin ity of non-immune non-immune 00:00: g of this 00 note Medical might be Branch different from the original. Address pp Rubella Rubella Disease Active Overview: Univ ers non-immune non-immune 05-21 Formattin ity of status, status, 00:00: g of this [place] antepartum antepartum 00 note Me dical might be Branch different from the original. Address pp Supervisio Supervisio Disease Active U nivers n of high n of high 6 ity of risk risk 00:00: [place] [address] [facility] in third in third Branch trimester trimester Multiparit Multiparit Disease Active U nivers y y 05-20 ity of 00:00: Medical Branch Well woman Well woman Disease Active U nivers exam exam 7-11 ity of 00:00: Medical Branch Obesity in Obesity in Disease Active Overview : Univers 3-03 Formattin i ty of 00:00: g of this note Medical might be Branch different from the original. 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 Encounter Encounter Disease Active Uni vers for IUD for IUD 2-24 ity of removal removal 00:00: [place] and and 00 Medical reinsertio reinsertio Br anch n n ASCUS on ASCUS on Disease Active Unive rs Pap smear Pap smear 5-22 ity of 00:00: [place] 00 Medical [...] (Bulk) adverse Vomiting 00:00: [place] reaction 00 Medical s Branch SODIUM DRUG Active N/V 2019-0 Univers CITRATE 1-24 ity of (BULK) 00:00: [place] 00 Medical Branch Ibuprofe Propensi Active Hives 2013-0 Univer s n ty to 5-22 ity of adverse 00:00: [place] reaction 00 Medical s Branch Colquitt Propensi Active Hives 2013-0 Univers ty to 5-22 ity of adverse 00:00: [place] reaction 00 Medical s Branch IBUPROFE DRUG Active Hives Univers N INGREDI - ity of 00:00: [place] 00 Medical Branch ORANGE DRUG Active Hives 2013-0 Univers 5-22 ity of 00:00: [place] 00 Medical Branch Social History Social Habit Start Date Stop Date Quantity Comments Source History SDOH [facility] [place] Alcohol Frequency Medical Branch History SDOH [facility] [place] Alcohol Std Drinks Medica l Branch History [facility] [place] Alcohol Binge Medical Bra [facility] Exposure to 2022-03-17 2022-03-27 Not sure [facility] SARS-CoV-2 (event) 00:00:00 14:04:00 Medica l Branch Alcohol intake 2022-03-27 2022-03-27 0 /d [facility] 00:00:00 00:00:00 Medical Branch Tobacco use and 2014-04-15 2014-04-15 Never used [facility] exposure 00:00:00 00:00:00 Medical Branch Alcohol Comment 2014-04-15 2014-04-15 socially [facility] 00:00:00 00:00:00 Medical Branch Sex [birth year] [facility] 00:00:00 00:00:00 Medical Branch Smoking Status Start Date Stop Date Source Never smoker [facility] Medications Ordered Filled Start Stop Current Ordering Indication Dosage Frequency Signature Comments Components Source Medication Medication Date Date Medication? Clinician (SIG) Name Name No known No Univers medications 5-03 ity of 14:11: [place] [address] Medical Branch No known No Univers medications 5-03 ity of 14:11: [address] Branch Immunizations Ordered Filled Immunization Date Status Comments Sour e Immunization Name Name TDAP 2021-01-18 Completed University 00:00:00 [facility] Branch TDAP 2021-01-18 Completed University of 00:00:00 [facility] Varicella 2018-12-20 Completed University of (varivax)(chicken 00:00:00 [facility] edical pox) Branch Varicella 2018-12-20 Completed University of (varivax)(chicken 00:00:00 [facility] edical pox) Branch TDAP (ADACEL) 2018-12-11 Completed University of VACCINE 00:00:00 [facility] TDAP (ADACEL) 2018-12-11 Completed University of VACCINE 00:00:00 [facility] HPV9 2016-06-04 Completed University of 00:00:00 [facility] HPV9 2016-06-04 Completed University of 00:00:00 [facility] TDAP 2015-04-06 Completed University of 00:00:00 [facility] TDAP 2015-04-06 Completed University of 00:00:00 [facility] Td 2004-11-25 Completed University of 00:00:00 [facility] Tetanus/Diptheria 2004-11-25 Completed Univers ity of 00:00:00 [facility] Td 2004-11-25 Completed University of 00:00:00 [facility] Tetanus/Diptheria 2004-11-25 Completed Univers ity of 00:00:00 [facility] Vital Signs Vital Name Observation Time Observation Value Comments Source Systolic blood 2022-03-27 19:29:00 122 mm[Hg[facility] Diastolic blood 2022-03-27 19:29:00 80 mm[Hg] [facility] Heart rate 2022-03-27 19:29:00 105 /min [facility] Body height 2022-03-27 19:29:[address] [facility] Body weight 2022-03-27 19:29:[address] [facility] BMI 2022-03-27 19:29:00 33.04 kg/m2 [facility] Procedures This patient has no known procedures. Encounters Start End Encounter Admission Attending Care Care Encounter Source Date/Time Date/Time Type Type Clinicians Facility Department ID 2021-09-24 Outpatient P [facility] JOANN [id number] Univers 10:31:27 ity of [facility] 2021-09-24 Outpatient P [facility] JOANN [id number] Univers 09:02:29 ity of [facility] 2021-09-24 Emergency X [facility] [id number] Univers 06:47:18 ity of [facility] 2021-09-24 Outpatient P [facility] JOANN [id number] Univers 06:38:20 ity of [facility] 2021-09-24 Outpatient P [facility] [id number] Univers 05:25:21 ity of [facility] 2021-09-24 Outpatient P [facility] JOANN [id number] Univers 04:28:40 ity of [facility] 2021-09-24 Emergency [facility] [id number] Univers 04:28:31 ity of [facility] 2021-09-24 Outpatient P [facility] [id number] Univers 01:10:45 ity of [facility] 2021-09-23 Emergency [facility] [id number] Univers 21:07:50 ity of [facility] 2021-09-23 Emergency [facility] [id number] Univers 07:29:02 ity of [facility] 2021-09-23 Outpatient P [facility] JO[facility] [id number] Univers 06:08:13 ity of [facility] 2021-09-22 Outpatient P [facility] [id number] Univers 23:31:44 ity of [facility] 2021-09-22 Emergency [facility] [id number] Univers 23:30:48 ity of [facility] 2021-09-22 Emergency [facility] [id number] Univers 22:58:12 ity of [facility] 2021-09-22 Outpatient U [facility] [id number] Univers 21:53:49 ity of [facility] 2021-09-22 Outpatient P [facility] [id number] Univers 21:28:28 ity of [facility] 2021-09-22 Emergency [facility] [id number] Univers 20:56:44 ity of [facility] 2022-03-28 2022-03-28 Telephone Jacob [facility] [id number] Univers 00:00:00 00:00:00 [facility] [id number] it y of [place] [id number] Jose as MARY ANN?BLEA [id number] Me dicjhony GOMEZ [address] [facility] [address] [facility] 2022-03-27 2022-03-27 Outpatient R JACOB [facility] [id number] Univers 14:30:00 23:59:00 CHARLES [facility] 2022-03-27 2022-03-27 [facility] [id number] Univers 14:30:00 15:00:00 Visit [facility] [id number] it [facility] [id number] Jose as MARY ANN?BLEA [phone] Me dicjhony GOMEZ [address] [place] [address] [facility] 2022-03-27 2022-03-27 Out[place] [id number] Univers 14:30:00 14:30:00 [facility] 2022-03-27 2022-03-27 Orders Doctor EDUARDO [id number] Univers 00:00:00 00:00:00 Only Unassigned, SRAVAN [id number] ity of [place] [facility] [id number] Jose as [phone] [address] 2021-05-10 2021-05-10 Outpatient Lauren ZAVALETA [facility] [id number] Univers 14:30:00 14:30:00 CORNELIUS flores o [facility] 2021-03-22 2021-03-22 [facility]ine [facility] [id number] 13:46:41 14:24:31 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 [id number] Visit [facility] [id number] MATERNAL [id number] & CHILD [address] [place] [address] 2021-03-22 2021-03-22 Outpatient Lauren ZAVALETA [facility] [id number] Univers 14:00:00 14:00:00 CORNELIUS flores o f [facility] 2021-03-06 2021-03-06 Outpatient Lauren BERMAN [facility] [id number] Univers 11:00:00 11:00:00 DAVE flores [facility] 2021-03-01 2021-03-01 Outpatient R WAQAR [facility] [id number] Univers 12:45:00 12:45:00 ROSMARYCARMENNDA ity o f [facility] 2021-02-19 2021-02-19 Outpatient P WAQAR [facility] JOANN [id number] Univers 15:41:00 15:41:00 ROSMARYCARMENNDA ity o f [facility] 2021-02-15 2021-02-15 Outpatient R WAQAR [facility] [id number] Univers 14:30:00 14:30:00 ROSMARYCARMENNDA ity o f [facility] 2021-02-01 2021-02-01 Outpatient R WAQAR [facility] [id number] Univers 15:15:00 15:15:00 ROSMARYCARMENNDA ity o f [facility] 2021-01-18 2021-01-18 Outpatient R WAQAR [facility] [id number] Univers 13:45:00 13:45:00 LOISNDA ity o [facility] 2021-01-06 2021-01-06 Outpatient R WAQAR [facility] [id number] Univers 09:45:00 09:45:00 LOISNDA ity o [facility] 2020-12-23 2020-12-23 Outpatient R AKINALOKPE, [facility] [id number] Univers 11:00:00 11:00:00 BOOM ity o [facility] 2020-12-20 2020-12-20 Outpatient R AKINSIPE, [facility] [id number] Univers 10:45:00 10:45:00 BOOM ity o [facility] 2020-12-20 2020-12-20 Outpatient R WAQAR [facility] [id number] Univers 09:45:00 09:45:00 ROSHUNDA ity o [facility] 2020-12-13 2020-12-13 Outpatient P PARTIDA [facility] [id number] Univers 14:15:00 14:15:00 BRI soto of S, HINTON [facility] 2020-11-29 2020-11-29 Outpatient R [facility] [id number] Univers 14:30:00 14:30:00 ity of [place] [facility] 2020-11-22 2020-11-22 Outpatient R AKINSIPE, [facility] [id number] Univers 14:00:00 14:00:00 BOOM aguilary o f [facility] 2020-11-15 2020-11-15 Outpatient P JASON [facility] [id number] Univers 13:00:00 13:00:00 CHRISTINA [facility] 2020-11-08 2020-11-08 Outpatient P EDYTA FRANCIS [facility] [id number] Univers 15:00:00 15:00:00 PENNYBARBYTA [facility] 2020-10-31 2020-10-31 Outpatient P DARWINSTEVE [facility] [id number] Univers 15:15:00 15:15:00 STEVE GRANADOS [facility] 2020-10-24 2020-10-24 Outpatient R AKINSIPE, [facility] [id number] Univers 13:45:00 13:45:00 BOOM flores o f [facility] 2020-10-06 2020-10-06 Outpatient R WAQAR, [facility] [id number] Univers 12:45:00 12:45:00 VENESSAA laureny o f [facility] 2020-09-08 2020-09-08 Outpatient R WAQAR, [facility] [id number] Univers 10:45:00 10:45:00 LOISNDA ity o f [facility] 2020-08-31 2020-08-31 Outpatient R WAQAR, [facility] [id number] Univers 12:45:00 12:45:00 LOISNDA ity o f [facility] 2020-08-24 2020-08-24 Outpatient P [facility] [id number] Univers 13:30:00 13:30:00 [facility] 2020-08-03 2020-08-03 Outpatient R WAQAR, [facility] [id number] Univers 12:45:00 12:45:00 ROSMARYCARMENNDA ity o f [facility] 2020-07-12 2020-07-12 Outpatient R WAQAR, [facility] [id number] Univers 14:15:00 14:15:00 ROSMARYCARMENNDA ity o f [facility] 2020-03-21 2020-03-21 Outpatient Lauren ZAVALETA [facility] [id number] Univers 15:00:00 15:00:00 CORNELIUS holguin [facility] Results This patient has no known results.
[2022-12-04 14:57] LABS: Urine Blood Negative (Negative); Urine Glucose Negative (Negative); Urine Protein Negative (Negative); Urine pH 8.5 (5.0-7.0)
[2022-12-04 15:09] LABS: Absolute Lymphocytes (CBC) 2.2 K/uL (0.7-4.9); Hematocrit 44.4 % (36.0-45.0); Lymphocytes % 25.4 % (15.3-44.8); MCV 88.5 fL (80-100); RBC Red Blood Cell Count 5.02 M/uL (3.86-4.86)
[2022-12-04 15:23] LABS: MPV 8.2 fL (7.6-11.3)
[2022-12-04 15:25] LABS: ALT/SGPT 47 U/L (13-56); AST/SGOT 28 U/L (15-37); Albumin 3.9 g/dL (3.4-5.0); Alkaline Phosphatase 65 U/L (45-117); BUN Blood Urea Nitrogen 6 mg/dL (7-18); Bicarbonate 29 mmol/L (21-32); Bilirubin Total 0.4 mg/dL (0.2-1.0); Glomerular Filtration Rate 97 ml/min (=/>90); Glucose Level 98 mg/dL (74-106); Lipase 82 U/L (73-393); Potassium 4.1 mmol/L (3.5-5.1); Protein, Total 7.6 g/dL (6.4-8.2); Sodium Level 139 mmol/L (136-145)
[2022-12-04 15:36] LABS: Bilirubin Direct < 0.1 mg/dL (0-0.2)
--- NOTE | 2022-12-04 15:58 | RAD REPORT ---
EXAM DESCRIPTION: US - Transvaginal Study Probe - 12/04/2022 3:44 pm CLINICAL HISTORY: ABD PAIN COMPARISON: Transvaginal Study Probe dated 02/13/2022 TECHNIQUE: Endovaginal sonography was performed. FINDINGS: Normal size uterus is present. Small nabothian cysts present. No suspicious myometrial mas s identifiable. No endometrial mass or polyp. No blood or fluid within the endometrial cavity. No blo od or fluid in the cul de sac. Endometrial thickness is 9 mm. Right ovary and right adnexa are unremarkable. Normal blood flow in the right ovarian stroma. Left ovary contains a 4.1 centimeter thin-walled anechoic cyst. No cyst rupture or hemorrhage finding s. Normal blood flow seen in the left ovarian stroma. No left adnexal abnormality. IMPRESSION: A 4.1 centimeter thin-walled anechoic left ovarian cyst is present. No cyst rupture or h emorrhage.
--- NOTE | 2022-12-04 16:34 | ER ---
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 [place] a pop then pain ll1 . Worked out really hard last night for about 2 hours. Ebola Screen: Patient denies travel to an Ebola-affected area in the 21 days before illness onset. Initial Sepsis Screen: Does the patient meet any 2 criteria? No. Patient's initial sepsis screen is negative. Does the patient have a suspected source of infection? Yes: Acute abdominal pain. Risk Assessment: Do you want to hurt yourself or someone else? Patient reports no desire to harm self or others. Onset of symptoms was December 04, 2022. 13:50 Method Of Arrival: Ambulatory ll1 13:50 Acuity: SHAW 3 ll1 13:52 Coronavirus screen: Vaccine status: Patient reports being unvaccinated. Client denies ll1 travel out of the [place] in the last 14 days. At this time, the client does not indicate any symptoms associated with coronavirus-19. Triage Assessment: 13:51 General: Appears uncomfortable, Behavior is calm, cooperative, appropriate for age. ll1 Pain: Complains of pain in abdomen. GI: Reports lower abdominal pain. DIRECTOR SERVICE: 17:03 LMP N/A - control method kr3 Historical: - Allergies: 13:50 Demerol; ll1 13:50 Ibuprofen; ll1 13:50 Iodinated Contrast Media - IV Dye; ll1 13:50 ORANGES; ll1 - PMHx: 13:50 GALLSTONES; hyperemesis gravidarum; Pancreatitis; ll1 - PSHx: 13:50 tubal ligation; ll1 - Immunization history:: Client reports having NOT received the Covid vaccine. - Social history:: Smoking status: Patient denies any tobacco usage or history of. Screenin:00 [facility] ED Fall Risk Assessment (Adult) History of falling in the last 3 months, kr3 including since admission No falls in past 3 months (0 pts) Confusion or Disorientation No (0 pts) Intoxicated or Sedated No (0 pts) Impaired Gait No (0 pts) Mobility Assist Device Used No (0 pt) Altered Elimination No (0 pt) Score/Fall Risk Level 0 - 2 = Low Risk. [facility] ED Fall Risk Assessment (Adult) Score/Fall Risk Level 0 - 2 = Low Risk Oriented to surroundings, Maintained a safe environment, Educated pt \T\ family on fall prevention, incl call for assistance when getting out of bed, Assessed \T\ reinforced patient's understanding of fall precautions, Hourly rounding (assess needs \T\ fall precautionary measures) done. Abuse screen: Denies threats or abuse. Nutritional screening: No deficits noted. Tuberculosis screening: No symptoms or risk factors identified. Assessment: 14:55 General: Appears in no apparent distress. comfortable, Behavior is calm, cooperative, kr3 appropriate for age. Neuro: Level of Consciousness is awake, alert, obeys commands, Oriented to person, place, time, situation. Cardiovascular: Patient's skin is warm and dry. Respiratory: Airway is patent Respiratory effort is even, unlabored, Respiratory pattern is regular, symmetrical. GI:. : No signs and/or symptoms were reported regarding the genitourinary system. EENT: No signs and/or symptoms were reported regarding the EENT system. Derm: No signs and/or symptoms reported regarding the dermatologic system. Musculoskeletal: Circulation, motion, and sensation intact. 15:02 GI: Abd is soft Abdomen is tender to palpation in left lower quadrant. kr3 16:00 Reassessment: Patient appears in no apparent distress at this time. Patient and/or kr3 family updated on plan of care and expected duration. Pain level reassessed. Patient is alert, oriented x 3, equal unlabored respirations, skin warm/dry/pink. 17:00 Reassessment: Patient appears in no apparent distress at this time. Patient is alert, kr3 oriented x 3, equal unlabored respirations, skin warm/dry/pink. 17:02 GI: Bowel sounds present X 4 quads. kr3 Vital Signs: 13:52 BP 135 / 84; Pulse 84; Resp 17; Temp 97.7; Pulse Ox 97% ; Height 5 ft. 4 in. (162.56 ll1 cm); Pain 8/10; 16:01 BP 124 / 77; Pulse 78; Resp 18; Pulse Ox 99% on R/A; kr3 17:00 BP 134 / 83; Pulse 72; Resp 18; Pulse Ox 99% on R/A; kr3 ED Course: 13:47 Patient arrived in ED. am2 13:48 WILMA DAMON is Private Physician. am2 13:50 Triage completed. ll1 14:42 Arm band placed on Patient placed in an exam room, on a stretcher. ll1 14:49 Jeanne Pearson MD is Attending Physician. sp3 14:55 Kim Zelaya, RN is Primary Nurse. kr3 14:55 Bed in low position. Call light in reach. Side rails up X 1. kr3 15:44 Transvaginal Study Probe In Process Unspecified. EDMS 17:02 No provider procedures requiring assistance completed. IV discontinued, intact, kr3 bleeding controlled, No redness/swelling at site. Pressure dressing applied. Administered Medications: No medications were administered Medication: 17:03 VIS not applicable for this client. kr3 Outcome: 16:33 Discharge ordered by . sp3 17:02 Discharged to home ambulatory. kr3 17:02 Condition: stable 17:02 Discharge instructions given to patient, Instructed on discharge instructions, follow up and referral plans. medication usage, Demonstrated understanding of instructions, follow-up care, medications, Prescriptions given X 1. 17:03 Patient left the ED. kr3 Signatures: Dispatcher [employer] EDWA RiazSharlene am2 Bill Hudson, RN RN ll1 Jeanne Pearson MD MD sp3 Kim Zelaya, ALFONZO RN kr3 Corrections: (The following items were deleted from the chart) 13:53 13:50 Chief complaint: Patient states: LLQ abd pain started today. Worked out really ll1 hard last night for 2 hours. ll1 15:44 15:40 In radiology for Transvaginal Ob+US.RAD.OFELIAZ. EDMS EDMS
--- NOTE | 2022-12-04 16:34 | EDPHYS ---
Physician Documentation [facility] Name: Suraj Courtney Age: 32 yrs Sex: Female : 1990 Arrival Date: 12/04/2022 Time: 13:47 Bed 15 Private MD: WILMA DAMON ED Physician Jeanne Pearson HPI: 12/04 15:01 This 32 yrs old Female presents to ER via Ambulatory with complaints of Abdominal Pain sp3 - left side. 15:01 32-year-old female with a history of gallstones, prior pancreatitis, hyperemesis sp3 gravidarum during her now presents with chief complaint left lower quadrant pain. LMP was 3 weeks ago and patient has had a BTL and states that she is not because she checked by home test. She denies any nausea, vomiting, diarrhea, upper abdominal pain, right-sided pain, back pain, flank pain, dysuria, urinary frequency, fever, or any other symptoms at this time. ROS otherwise negative.. 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 - Social history:: Smoking status: Patient denies any tobacco usage or history of. ROS: 15:02 Constitutional: Negative for fever, chills, and weight loss, Eyes: Negative for injury, sp3 pain, redness, and discharge, ENT: Negative for injury, pain, and discharge, Neck: Negative for injury, pain, and swelling, Cardiovascular: Negative for chest pain, palpitations, and edema, Respiratory: Negative for shortness of breath, cough, wheezing, and pleuritic chest pain, Back: Negative for injury and pain, Skin: Negative for injury, rash, and discoloration, Neuro: Negative for headache, weakness, numbness, tingling, and seizure, Psych: Negative for depression, anxiety, suicide ideation, homicidal ideation, and hallucinations, Allergy/Immunology: Negative for hives, rash, and allergies, Endocrine: Negative for neck swelling, polydipsia, polyuria, polyphagia, and marked weight changes, Hematologic/Lymphatic: Negative for swollen nodes, abnormal bleeding, and unusual bruising. 15:02 All other systems are negative. Exam: 15:02 Constitutional: This is a well developed, well nourished patient who is awake, alert, sp3 and in no acute distress. Head/Face: Normocephalic, atraumatic. Eyes: Pupils equal round and reactive to light, extra-ocular motions intact. Lids and lashes normal. Conjunctiva and sclera are non-icteric and not injected. Cornea within normal limits. Periorbital areas with no swelling, redness, or edema. Neck: Trachea midline, no thyromegaly or masses palpated, and no cervical lymphadenopathy. Supple, full range of motion without nuchal rigidity, or vertebral point tenderness. No Meningismus. Chest/axilla: Normal chest wall appearance and motion. Nontender with no deformity. No lesions are appreciated. Cardiovascular: Regular rate and rhythm with a normal S1 and S2. No gallops, murmurs, or rubs. Normal PMI, no JVD. No pulse deficits. Respiratory: Lungs have equal breath sounds bilaterally, clear to auscultation and percussion. No rales, rhonchi or wheezes noted. No increased work of breathing, no retractions or nasal flaring. Back: No spinal tenderness. No costovertebral tenderness. Full range of motion. Skin: Warm, dry with normal turgor. Normal color with no rashes, no lesions, and no evidence of cellulitis. MS/ Extremity: Pulses equal, no cyanosis. Neurovascular intact. Full, normal range of motion. Neuro: Awake and alert, GCS 15, oriented to person, place, time, and situation. Cranial nerves II-XII grossly intact. Motor strength 5/5 in all extremities. Sensory grossly intact. Cerebellar exam normal. Normal gait. Psych: Awake, alert, with orientation to person, place and time. Behavior, mood, and affect are within normal limits. 15:02 Abdomen/GI: Mild left lower quadrant pain to palpation. No peritonitis, rebound, guarding noted. There is no vaginal bleeding or discharge.. Vital Signs: 13:52 BP 135 / 84; Pulse 84; Resp 17; Temp 97.7; Pulse Ox 97% ; Height 5 ft. 4 in. (162.56 ll1 cm); Pain 8/10; 16:01 BP 124 / 77; Pulse 78; Resp 18; Pulse Ox 99% on R/A; kr3 17:00 BP 134 / 83; Pulse 72; Resp 18; Pulse Ox 99% on R/A; kr3 MDM: 14:55 Patient medically screened. sp3 15:03 Data reviewed: vital signs, nurses notes. ED course: 32-year-old female with left lower sp3 quadrant abdominal pain. Differential diagnosis includes ovarian cyst, intestinal pain, functional abdominal pain, UTI, pyelonephritis, among others. Patient is in no acute distress resting comfortably. We will work patient up with ultrasound transvaginal, laboratory values and urinalysis. 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 16:32 ED course: Ultrasound demonstrates a 4 cm ovarian cyst on the left side. Normal blood sp3 flow was noted in both ovaries. No hemorrhage or cyst rupture noted and no free fluid noted in the pelvis.. 12/04 14:56 Order name: Basic Metabolic Panel; Complete Time: 16:31 sp3 12/04 14:56 Order name: CBC with Diff; Complete Time: 16:31 sp3 12/04 14:56 Order name: LFT's; Complete Time: 16:31 sp3 12/04 14:56 Order name: Lipase; Complete Time: 16:31 sp3 12/04 14:57 Order name: Urine Dipstick-Ancillary; Complete Time: 16:31 EDMS 12/04 15:36 Order name: Urine --Ancillary (enter results) bd 12/04 14:56 Order name: IV Saline Lock; Complete Time: 15:25 sp3 12/04 14:56 Order name: Labs collected and sent; Complete Time: 15:26 sp3 12/04 14:56 Order name: NPO; Complete Time: 15:26 sp3 12/04 14:56 Order name: Urine Dipstick-Ancillary (obtain specimen); Complete Time: 15:34 sp3 12/04 14:56 Order name: Urine Test (obtain specimen); Complete Time: 15:35 sp3 12/04 15:44 Order name: Transvaginal Study Probe; Complete Time: 16:31 EDMS Administered Medications: No medications were administered Disposition Summary: 12/04/22 16:33 Discharge Ordered Location: Home sp3 Condition: Stable sp3 Diagnosis - Other and unspecified ovarian cysts sp3 Followup: sp3 - With: Private Physician - When: Upon discharge from the Emergency Department - Reason: Continuance of care Discharge Instructions: - Discharge Summary Sheet sp3 - Ovarian Cyst sp3 Forms: - Medication Reconciliation Form sp3 - Thank You Letter sp3 - Antibiotic Education sp3 - Prescription Opioid Use sp3 Prescriptions: - Diclofenac Sodium 75 mg Oral Tablet Sustained Release - take 1 tablet by ORAL route 2 times per day; 30 tablet; Refills: 0, Product sp3 Selection Permitted Signatures: Dispatcher [employer] Bill Jensen RN RN ll1 Jeanne Pearson MD MD sp3 Corrections: (The following items were deleted from the chart) 15:44 14:57 Transvaginal Ob+US.RAD.BRZ ordered. EDMS EDMS
[2022-12-04 17:41] VITALS: BP 124/77; O2SAT 99
== END 2022-12-04 17:03 | disposition home or self-care (01) ==
LOC: ER 13:46
DX: N83.299 Other ovarian cyst, unspecified side (principal); Z88.5 Allergy status to narcotic agent; Z88.6 Allergy status to analgesic agent; Z91.018 Allergy to other foods; Z91.041 Radiographic dye allergy status
CPT/HCPCS: 36415; 76830; 80048; 80076; 81003; 81025; 83690; 85025; 99283

== ENCOUNTER 2023-01-24 00:54 | Emergency (ER) | payer OTHER ==
--- OUTSIDE RECORDS SUMMARY | 2023-01-24 00:59 | XMS REPORT | Continuity of Care Document ---
:1990 Author Organization [facility] t Address [address] [facility] [address] [place] [address] Care Team Providers Name Role Phone CRISTHIAN DAMON Primary Care Physician Unavailable Charles James MD Attending Clinician CHARLES JAMES Attending Clinician Unavailable Ember Dalal Attending Clinician EMBER FRANKS Attending Clinician Unavailable Doctor Unassigned, [place] Attending Clinician Unavailable CORNELIUS ZAVALETA Attending Clinician [...] Number Effective Date Expiration Date Yong moser [facility] [id number] 2018 MEDICAID 00:00:00 Problems Condition Condition Condition [...] bilateral 6-16 ity of tubal tubal 00:00: [place] ligation ligation 00 Medica l Branch Overweight Overweight Disease Active U nivers (BMI (BMI 6-16 ity of 25.0-29.9) 25.0-29.9[place] S/P S/P Disease Active Univers 4-06 ity of section section 00:00: [place] [facility] Disease Active Univers contractio contractio 3-29 it y of ns ns 00:00: [place] [facility] History of History of Disease Active 2019-11 U nivers 1-30 ity of delivery delivery 00:00: [place] [facility] History of History of Disease Active 2019-11 U nivers cholecyste cholecyste 1-30 it y of ctomy ctomy 00:00: [place] [facility] Cholelithi Cholelithi Disease Active 2019-11 U nivers asis asis 1-18 it[place] of affecting [place] Med[place] estella in second in second Bran ch trimester, trimester, antepartum antepartum Gallstones Gallstones Disease Active 2019-11 Overview : Univers 1-17 Formattin ity of 00:00: g of this [place] 00 note Medical might be Branch different from the original. Added automatic ally from request for surgery [id number] Nausea and Nausea and Disease Active 2019-11 U nivers vomiting vomiting 0-17 ity of in in 00:00: [place] 00 [facility] Branch 9 weeks 9 weeks Disease Active 2019-11 Univers gestation gestation 0-17 ity of of of 00:00: [place] 00 [facility] Branch Hyperemesi Hyperemesi Disease Active 2019-11 U nivers s s 0-07 ity of gravidarum gravidarum [place]:00[place] before end before end 00 Me dical of 22 week of 22 week Br anch gestation gestation with with dehydratio dehydratio n n Obesity Obesity Disease Active 2019-11 Univers (BMI (BMI 0-07 ity of 30-39.9) 30-39.9) 00:00: [place] 00 [facility] Branch Hyperemesi Hyperemesi Disease Active 2019-11 [...] of of 00:00: [place] 00 [facility] Branch Nausea and Nausea and Disease Active U nivers vomiting vomiting 8-22 ity of during during 00:00: [place] 00 [facility] Branch BMI BMI Disease Active Univers [...] of status, status, 00:00: g of this [place] antepartum antepartum 00 note Me dical might be Branch different from the original. Address pp Supervisio Supervisio Disease Active U nivers n of high n of high 6 ity of risk risk 00:00: [place] 00 [facility] in third in third Branch trimester [...] different from the original. ICD10 Diagnosis Term [employer] Utility Encounter Encounter Disease Active Uni vers [...] 00:00: [place] reaction 00 Medical s Branch [place] Propensi Active Hives 2013-0 Univers ty to [...] Alcohol Std Drinks Medica l Branch History [facility] University o f [place] Alcohol Binge Medical Bra [facility] Exposure to 2022-03-17 2022-03-27 Not sure [facility] SARS-CoV-2 (event) 00:00:00 14:04:00 Medica l Branch Alcohol intake 2022-03-27 2022-03-27 0 /d [facility] 00:00:00 00:00:00 Medical Branch Tobacco use and 2014-04-15 2014-04-15 Never used [facility] exposure 00:00:00 00:00:00 Medical Branch Alcohol Comment 2014-04-15 2014-04-15 socially [facility] 00:00:00 00:00:00 Medical Branch Sex Ass[birth year] At [birth year] [facility] 00:00:00 00:00:00 Medical Branch Smoking Status Start Date Stop Date Source Never smoker [facility] Medications Ordered Filled Start Stop Current Ordering Indication Dosage Frequency Signature Comments Components Source Medication Medication Date Date Medication? Clinician (SIG) Name Name No known No Univers medications 5-03 ity of 14:11: [place] [address] Medical Branch No known No Univers medications 5-03 ity of 14:11: [address] Branch Immunizations Ordered Filled Immunization Date Status Comments Sour e Immunization Name Name TDAP 2021-01-18 Completed University 00:00:00 [facility] Branch TDAP 2021-01-18 Completed University of 00:00:00 [facility] Varicella 2018-12-20 Completed University of (varivax)(chicken 00:00:00 [facility] edical pox) Branch Varicella 2018-12-20 Completed University of (varivax)(chicken 00:00:00 [facility] edical pox) Branch TDAP (ADACEL) 2018-12-11 Completed University of VACCINE 00:00:00 [facility] TDAP (ADACEL) 2018-12-11 Completed University of VACCINE 00:00:00 [facility] HPV9 2016-06-04 Completed University of 00:00:00 [facility] HPV9 2016-06-04 Completed University of 00:00:00 [facility] TDAP 2015-04-06 Completed University of 00:00:00 [facility] TDAP 2015-04-06 Completed University of 00:00:00 [facility] Td 2004-11-25 Completed University of 00:00:00 [facility] Tetanus/Diptheria 2004-11-25 Completed Univers ity of 00:00:00 [facility] Td 2004-11-25 Completed University of 00:00:00 [facility] Tetanus/Diptheria 2004-11-25 Completed Univers ity of 00:00:00 [facility] Vital Signs Vital Name Observation Time Observation Value Comments Source Systolic blood 2022-03-27 19:29:00 122 mm[Hg[facility] Diastolic blood 2022-03-27 19:29:00 80 mm[Hg] [facility] Heart rate 2022-03-27 19:29:00 105 /min [facility] Body height 2022-03-27 19:29:00 162.6 cm [facility] Body weight 2022-03-27 19:29:00 87.317 kg [facility] BMI 2022-03-27 19:29:00 33.04 kg/m2 [facility] Procedures This patient has no known procedures. Encounters Start End Encounter Admission Attending Care Care Encounter Source Date/Time Date/Time Type Type Clinicians Facility Department ID 2021-09-[address] [facility] JOANN [id number] Univers 10:31:27 ity of [facility] 2021-09-[address] [facility] OJANN [id number] Univers 09:02:29 ity of [facility] 2021-09-[address] [facility] [id number] Univers 06:47:18 ity of [facility] 2021-09-24 Outpatient P [facility] JOANN [id number] Univers 06:38:20 ity of [facility] 2021-09-24 Outpatient P [facility] JOANN [id number] Univers 05:25:21 ity of [facility] 2021-09-24 Outpatient P [facility] JOANN [id number] Univers 04:28:40 ity of [facility] 2021-09-24 Emergency [facility] [id number] Univers 04:28:31 ity of [facility] 2021-09-24 Outpatient P [facility] JOANN [id number] Univers 01:10:45 ity of [facility] 2021-09-23 Emergency [facility] [id number] Univers 21:07:50 ity of [facility] 2021-09-23 Emergency [facility] [id number] Univers 07:29:02 ity of [facility] 2021-09-23 Outpatient P [facility] JOANN [id number] Univers 06:08:13 ity of [facility] 2021-09-22 Outpatient P [facility] JOANN [id number] Univers 23:31:44 ity of [facility] 2021-09-22 Emergency [facility] [id number] Univers 23:30:48 ity of [facility] 2021-09-22 Emergency [facility] [id number] Univers 22:58:12 ity of [facility] 2021-09-22 Outpatient U [facility] JOANN [id number] Univers 21:53:49 ity of [facility] 2021-09-22 Outpatient P [facility] JO[facility] [id number] Univers 21:28:28 ity of [facility] 2021-09-22 Emergency [facility] [id number] Univers 20:56:44 ity of [facility] 2022-03-28 2022-03-[address] [facility] [id number] Univers 00:00:00 00:00:00 [facility] [id number] it y of [place] [id number] Jose as MARY ANN?BLEA [id number] Me dicjhony GOMEZ [address] [facility] OFFICE [facility] 2022-03-27 2022-03-27 Outpatient R JACOB [facility] [id number] Univers 14:30:00 23:59:00 CHARLES [facility] 2022-03-27 2022-03-27 Office [facility] [id number] Univers 14:30:00 15:00:00 Visit [facility] [id number] it [facility] [id number] Jose as MARY ANN?BLEA [id number] Me dicjhony GOMEZ [address] [place] [address] OFFICE [facility] 2022-03-27 2022-03-27 [facility] [id number] Univers 14:30:00 14:30:00 [facility] 2022-03-27 2022-03-27 Orders Doctor EDUARDO [id number] Univers 00:00:00 00:00:00 Only Unassigned, SRAVAN [id number] ity of [place] [facility] [id number] Jose as [id number] [address] 2021-05-10 2021-05-10 Outpatient Lauren ZAVALETA [facility] [id number] Univers 14:30:00 14:30:00 CORNELIUS flores o [facility] 2021-03-22 2021-03-22 [facility]ine [facility] [id number] 13:46:41 14:24:31 Cornelius Aguilar [employer] [id number] Visit [facility] [id number] MATERNAL [id number] & CHILD [address] [place] [address] 2021-03-22 2021-03-22 Outpatient Lauren ZAVALETA [facility] [id number] Univers 14:00:00 14:00:00 CORNELIUS flores o f [facility] 2021-03-06 2021-03-06 Outpatient Lauren BERMAN [facility] [id number] Univers 11:00:00 11:00:00 DAVE flores [facility] 2021-03-01 2021-03-01 Outpatient R WAQAR [facility] [id number] Univers 12:45:00 12:45:00 ROSMARYCARMENNDA ity o f [facility] 2021-02-19 2021-02-19 Outpatient P WAQAR [facility] JOANN [id number] Univers 15:41:00 15:41:00 ROSMARYCARMENNDA ity o f [facility] 2021-02-15 2021-02-15 Outpatient R WAQAR [facility] [id number] Univers 14:30:00 14:30:00 ROSMARYCARMENNDA ity o f [facility] 2021-02-01 2021-02-01 Outpatient R WAQAR [facility] [id number] Univers 15:15:00 15:15:00 ROSMARYCARMENNDA ity o f [facility] 2021-01-18 2021-01-18 Outpatient R WAQAR [facility] [id number] Univers 13:45:00 13:45:00 LOISNDA ity o [facility] 2021-01-06 2021-01-06 Outpatient R WAQAR [facility] [id number] Univers 09:45:00 09:45:00 LOISNDA ity o [facility] 2020-12-23 2020-12-23 Outpatient R AKINALOKPE, [facility] [id number] Univers 11:00:00 11:00:00 BOOM ity o [facility] 2020-12-20 2020-12-20 Outpatient R AKINSIPE, [facility] [id number] Univers 10:45:00 10:45:00 BOOM ity o [facility] 2020-12-20 2020-12-20 Outpatient R WAQAR [facility] [id number] Univers 09:45:00 09:45:00 ROSHUNDA ity o [facility] 2020-12-13 2020-12-13 Outpatient P PARTIDA [facility] [id number] Univers 14:15:00 14:15:00 BRI soot of S, HINTON [facility] 2020-11-29 2020-11-29 Outpatient R [facility] [id number] Univers 14:30:00 14:30:00 ity of [place] [facility] 2020-11-22 2020-11-22 Outpatient R AKINSIPE, [facility] [id number] Univers 14:00:00 14:00:00 BOOM aguilary o f [facility] 2020-11-15 2020-11-15 Outpatient P JASON [facility] [id number] Univers 13:00:00 13:00:00 CHRISTINA [facility] 2020-11-08 2020-11-08 Outpatient P EDYTA FRANCIS [facility] [id number] Univers 15:00:00 15:00:00 PENNYBARBYTA [facility] 2020-10-31 2020-10-31 Outpatient P DARWINSTEVE [facility] [id number] Univers 15:15:00 15:15:00 STEVE GRANADOS [facility] 2020-10-24 2020-10-24 Outpatient R AKINSIPE, [facility] [id number] Univers 13:45:00 13:45:00 BOOM flores o f [facility] 2020-10-06 2020-10-06 Outpatient R WAQAR, [facility] [id number] Univers 12:45:00 12:45:00 VENESSAA laureny o f [facility] 2020-09-08 2020-09-08 Outpatient R WAQAR, [facility] [id number] Univers 10:45:00 10:45:00 LOISNDA ity o f [facility] 2020-08-31 2020-08-31 Outpatient R WAQAR, [facility] [id number] Univers 12:45:00 12:45:00 LOISNDA ity o f [facility] 2020-08-24 2020-08-24 Outpatient P [facility] [id number] Univers 13:30:00 13:30:00 [facility] 2020-08-03 2020-08-03 Outpatient R WAQAR, [facility] [id number] Univers 12:45:00 12:45:00 ROSMARYCARMENNDA ity o f [facility] 2020-07-12 2020-07-12 Outpatient R WAQAR, [facility] [id number] Univers 14:15:00 14:15:00 ROSMARYCARMENNDA ity o f [facility] 2020-03-21 2020-03-21 Outpatient Lauren ZAVALETA [facility] [id number] Univers 15:00:00 15:00:00 CORNELIUS holguin [facility] Results This patient has no known results.
[2023-01-24] MEDS ORDERED: KETOROLAC 30 MG/ML INJ ONE (01:20)
--- NOTE | 2023-01-24 01:55 | ER ---
Nurse's Notes [facility] Name: Suraj Courtney Age: 32 yrs Sex: Female : 1990 Arrival Date: 01/24/2023 Time: 00:58 Bed 13 Private MD: Diagnosis: Pain in right foot Presentation: 01/24 01:00 Chief complaint: Patient states: Right foot pain of 5,onset 2 weeks ago. Patient stated pf1 thinks has a piece of glass to bottom of right foot when she stepped on something while walking on the front porch. 01:00 Coronavirus screen: Vaccine status: Patient reports being unvaccinated. Client denies pf1 travel out of the [place] in the last 14 days. At this time, the client does not indicate any symptoms associated with coronavirus-19. Ebola Screen: Patient negative for fever greater than or equal to 101.5 degrees Fahrenheit, and additional compatible Ebola Virus Disease symptoms. Initial Sepsis Screen: Does the patient meet any 2 criteria? No. Patient's initial sepsis screen is negative. Does the patient have a suspected source of infection? No. Patient's initial sepsis screen is negative. Risk Assessment: Do you want to hurt yourself or someone else? Patient reports no desire to harm self or others. 01:00 Method Of Arrival: Wheelchair pf1 01:00 Acuity: SHAW 4 pf1 02:04 Onset of symptoms is unknown. lg3 Historical: - Allergies: 01:23 Ibuprofen; pf1 01:23 Demerol; pf1 01:23 Iodinated Contrast Media - IV Dye; pf1 01:23 ORANGES; pf1 - PMHx: 02:04 GALLSTONES; hyperemesis gravidarum; Pancreatitis; lg3 - PSHx: 01:23 tubal ligation; Appendectomy; Cholecystectomy; section; pf1 - Immunization history:: Adult Immunizations up to date, Last tetanus immunization: unknown, Flu vaccine is not up to date. - Social history:: Smoking status: Patient denies any tobacco usage or history of. Patient uses alcohol, occasionally. Patient/guardian denies using street drugs. - Family history:: not pertinent. Screenin:53 [facility] ED Fall Risk Assessment (Adult) History of falling in the last 3 months, lg3 including since admission No falls in past 3 months (0 pts). Abuse screen: Denies threats or abuse. Denies injuries from another. Nutritional screening: No deficits noted. Tuberculosis screening: No symptoms or risk factors identified. Assessment: 01:53 General: Appears in no apparent distress. comfortable, Behavior is calm, cooperative. lg3 Pain: Complains of pain in right foot Pain does not radiate. Pain currently is 5 out of 10 on a pain scale. Neuro: No deficits noted. Forbes Agitation-Sedation Scale (RASS): 0 - Alert and Calm Level of Consciousness is awake, alert, obeys commands, Oriented to person, place, time, situation. Cardiovascular: No deficits noted. Denies chest pain, shortness of breath, Capillary refill < 3 seconds Clubbing of nail beds is absent JVD is absent Patient's skin is warm and dry. Respiratory: No deficits noted. Airway is patent Trachea midline Respiratory effort is even, unlabored, Respiratory pattern is regular, symmetrical. GI: No deficits noted. No signs and/or symptoms were reported involving the gastrointestinal system. Abdomen is round non-distended, obese. : No deficits noted. No signs and/or symptoms were reported regarding the genitourinary system. EENT: No deficits noted. No signs and/or symptoms were reported regarding the EENT system. Derm: No deficits noted. Skin is intact, is healthy with good turgor, Skin is dry, Skin is normal, Skin temperature is warm. Musculoskeletal: No deficits noted. Circulation, motion, and sensation intact. Range of motion: intact in all extremities. Vital Signs: 01:00 BP 134 / 93; Pulse 77; Resp 18; Temp 98.6; Pulse Ox 99% on R/A; Weight 93.89 kg; Height pf1 5 ft. 4 in. (162.56 cm); Pain 5/10; 01:00 Body Mass Index 35.53 (93.89 kg, 162.56 cm) pf1 ED Course: 00:58 Patient arrived in ED. ag3 00:59 Zachary Bell MD is Attending Physician. rt 01:23 Triage completed. pf1 01:53 Patient has correct armband on for positive identification. Placed in gown. Bed in low lg3 position. Call light in reach. Side rails up X 1. Door closed. Noise minimized. Warm blanket given. Family accompanied patient. 01:53 No provider procedures requiring assistance completed. Patient did not have IV access lg3 during this emergency room visit. 02:04 Arm band placed on right wrist. lg3 02:28 Foot Right 3 View XRAY In Process Unspecified. EDMS Administered Medications: 01:38 Drug: Ketorolac 30 mg Route: IM; Site: right deltoid; lg3 01:56 Follow up: Response: No adverse reaction; Pain is decreased lg3 Medication: 02:04 VIS not applicable for this client. lg3 Outcome: 01:55 Discharge ordered by . rt 02:03 Discharged to home ambulatory. lg3 02:03 Condition: stable 02:03 Discharge instructions given to patient, Instructed on discharge instructions, follow up and referral plans. 02:04 Patient left the ED. lg3 Signatures: Dispatcher [employer] EDMS Alejandrina Benítez ag3 Sera Farias, RN RN lg3 Zachary Bell MD MD rt Kim keys RN RN pf1
--- NOTE | 2023-01-24 01:55 | EDPHYS ---
Physician Documentation [facility] Name: Suraj Courtney Age: 32 yrs Sex: Female : 1990 Arrival Date: 01/24/2023 Time: 00:58 Bed 13 Private MD: ED Physician Zachary Bell HPI: 01/24 01:32 This 32 yrs old Female presents to ER via Wheelchair with complaints of Foreign Body, rt Foot Injury. 01:32 Presents to the ED with reported foreign body to the right foot, states that she rt believes she stepped on glass. This occurred about 14 days ago. She states that the pain has worsened and she has a bubble on her foot. Denies other pain, other acute complaints. Symptoms are moderate severity, no other aggravating or alleviating factors.. Historical: - Allergies: 01:23 Ibuprofen; pf1 01:23 Demerol; pf1 01:23 Iodinated Contrast Media - IV Dye; pf1 01:23 ORANGES; pf1 - PMHx: 02:04 GALLSTONES; hyperemesis gravidarum; Pancreatitis; lg3 - PSHx: 01:23 tubal ligation; Appendectomy; Cholecystectomy; section; pf1 - Immunization history:: Adult Immunizations up to date, Last tetanus immunization: unknown, Flu vaccine is not up to date. - Social history:: Smoking status: Patient denies any tobacco usage or history of. Patient uses alcohol, occasionally. Patient/guardian denies using street drugs. - Family history:: not pertinent. ROS: 01:32 Constitutional: Negative for fever, chills, and weight loss, Skin: Negative for injury, rt rash, and discoloration, Neuro: Negative for headache, weakness, numbness, tingling, and seizure, Psych: Negative for depression, anxiety, suicide ideation, homicidal ideation, and hallucinations. 01:32 MS/extremity: Positive for pain, Negative for warmth. Exam: 01:32 Constitutional: This is a well developed, well nourished patient who is awake, alert, rt and in no acute distress. Skin: Warm, dry with normal turgor. Normal color with no rashes, no lesions, and no evidence of cellulitis. Neuro: Awake and alert, GCS 15, oriented to person, place, time, and situation. Cranial nerves II-XII grossly intact. Motor strength 5/5 in all extremities. Sensory grossly intact. Cerebellar exam normal. Normal gait. Psych: Awake, alert, with orientation to person, place and time. Behavior, mood, and affect are within normal limits. 01:32 Musculoskeletal/extremity: No obvious foreign bodies to the right foot, there is no puncture wound noted. There is mild tenderness at the plantar region at the second and third MTP. no warmth, erythema, no neurovascular compromise. Vital Signs: 01:00 BP 134 / 93; Pulse 77; Resp 18; Temp 98.6; Pulse Ox 99% on R/A; Weight 93.89 kg; Height pf1 5 ft. 4 in. (162.56 cm); Pain 5/10; 01:00 Body Mass Index 35.53 (93.89 kg, 162.56 cm) pf1 MDM: 01:10 Patient medically screened. rt 01:55 Data reviewed: vital signs, nurses notes, radiologic studies. I considered the rt following discharge prescriptions or medication management in the emergency department Pain Medications: At this time, prescription pain medications are not recommended. Independent interpretation of the following test(s) in the Emergency Department X-Ray: My interpretation is No foreign body seen on interpretation of the foot radiographs. Test considered but Not performed: Labs: Stable vital signs, no signs of infection, labs not indicated. Counseling: I had a detailed discussion with the patient and/or guardian regarding: the historical points, exam findings, and any diagnostic results supporting the discharge/admit diagnosis, radiology results, the need for outpatient follow up. 01/24 01:16 Order name: Foot Right 3 View XRAY rt Administered Medications: 01:38 Drug: Ketorolac 30 mg Route: IM; Site: right deltoid; lg3 01:56 Follow up: Response: No adverse reaction; Pain is decreased lg3 Disposition Summary: 01/24/23 01:55 Discharge Ordered Location: Home rt Problem: new rt Symptoms: are unchanged rt Condition: Stable rt Diagnosis - Pain in right foot rt Followup: rt - With: Private Physician - When: 2 - 3 days - Reason: Discharge Instructions: - Discharge Summary Sheet rt - Foot Pain rt Forms: - Medication Reconciliation Form rt - Thank You Letter rt - Antibiotic Education rt - Prescription Opioid Use rt Signatures: Dispatcher [employer] Sera Lin RN RN lg3 Zachary Bell MD MD rt Kim keys, ALFONZO RN pf1
[2023-01-24 02:28] VITALS: BP 134/93; TEMP 98.6; O2SAT 99
--- NOTE | 2023-01-24 12:47 | RAD REPORT ---
EXAM DESCRIPTION: RAD - Foot Right 3 View - 01/24/2023 1:33 am CLINICAL HISTORY: 32 years, Female, poss fb COMPARISON: None FINDINGS: 3 X-ray views of the right foot (Frontal, lateral and oblique views) were performed. No acute bony injuries were demonstrated. No gross articular or soft tissue abnormality is identifi ed. There are no gross intraosseous lesions. No periosteal reaction were seen. Minimal spurring p osterior aspect calcaneus. IMPRESSION: No acute bony injuries were demonstrated. Electronically signed by: Chevy Hagen MD 01/24/2023 1:49 AM INSIDE SALES ADVISOR Due to temporary technical issues with the PACS/Fluency reporting system, reports are being signed by the in house radiologists without review as a courtesy to insure prompt reporting. The interpreting radiologist is fully responsible for the content of the report.
== END 2023-01-24 02:04 | disposition home or self-care (01) ==
LOC: ER 00:54
DX: M79.671 Pain in right foot (principal)
CPT/HCPCS: 96372; 99283

== ENCOUNTER 2023-05-27 16:36 | Emergency (ER) | payer OTHER ==
--- OUTSIDE RECORDS SUMMARY | 2023-05-27 16:39 | XMS REPORT | Continuity of Care Document ---
:1990 Author Organization [facility] t Address [address] [facility] [address] [place] [address] Care Team Providers Name Role Phone MARISOLCRISTHIAN Primary Care Physician Unavailable Charles James MD Attending Clinician CHARLES JAMES Attending Clinician Unavailable Ember Dalal Attending Clinician EMBER FRANKS Attending Clinician Unavailable Doctor Unassigned, [place] Attending Clinician Unavailable CORNELIUS ZAVALEAT Attending Clinician Unavailable Cornelius Thomas Attending Clinician [...] Number Effective Date Expiration Date Yong moser [facility] [id number] 2018 MEDICAID 00:00:00 Problems Condition Condition Condition [...] bilateral 6-16 ity of tubal tubal 00:00: [place] ligation ligation 00 Medica l Branch Overweight Overweight Disease Active U nivers (BMI (BMI 6-16 ity of 25.0-29.9) 25.0-29.9[place] S/P S/P Disease Active Univers 4-06 ity of section section 00:00: [place] [facility] Disease Active Univers contractio contractio 3-29 it y of ns ns 00:00: [place] [facility] History of History of Disease Active 2019-11 U nivers 1-30 ity of delivery delivery 00:00: [place] [facility] History of History of Disease Active 2019-11 U nivers cholecyste cholecyste 1-30 it y of ctomy ctomy 00:00: [place] [facility] Cholelithi Cholelithi Disease Active 2019-11 U nivers asis asis 1-18 ity of affecting [place] Med[place] estella in second in second Bran ch trimester, trimester, antepartum antepartum Gallstones Gallstones Disease Active 2019- Overview : Univers 1-17 Formattin ity of 00:00: g of this [place] note Medical might be Branch different from the original. Added automatic ally from request for surgery [id number] Nausea and Nausea and Disease Active 2019-11 U nivers vomiting vomiting 0-17 ity of in in 00:00: [place] 00 [facility] 9 weeks 9 weeks Disease Active 2019-11 Univers gestation gestation 0-17 ity of of of 00:00: [place] 00 [facility] Hyperemesi Hyperemesi Disease Active 2019-11 U nivers s s 0-07 ity of gravidarum gravidarum [place] before end before end 00 Me dical of 22 week of 22 week Br anch gestation gestation with with dehydratio dehydratio n n Obesity Obesity Disease Active 2019-11 Univers (BMI (BMI 0-07 ity of 30-39.9) 30-39.9) 00:00: [place] 00 [facility] Branch Hyperemesi Hyperemesi Disease Active 2019-11 [...] gestation 2-29 ity of of of 00:00: [place] 00 [facility] Nausea and Nausea and Disease Active U nivers vomiting vomiting 8-22 ity of during during 00:00: [place] 00 [facility] BMI BMI Disease Active Univers 32.0-32.9, [...] high 6 ity of risk risk 00:00: [place] 00 [facility] in third in third Branch trimester trimester [...] different from the original. 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 Encounter Encounter Disease Active Uni vers [...] 00:00: [place] reaction 00 Medical s Branch Marinette Propensi Active Hives 2013- Univers ty to 5-22 ity of adverse 00:00: [place] reaction 00 Medical s Branch IBUPROFE DRUG Active Hives Univers N INGREDI - ity of 00:00: [place] 00 Medical Branch ORANGE DRUG Active Hives 2013-0 Univers -22 ity of 00:00: [place] 00 Medical Branch Social History Social Habit Start Date Stop Date Quantity Comments Source History SDOH [facility] [place] Alcohol Frequency Medical Branch History SDOH [facility] [place] Alcohol Std Drinks Medica l Branch History [facility] University o f [place] Alcohol Binge Medical Bra [facility] Exposure to 2022-03-17 2022-03-27 Not sure [facility] SARS-CoV-2 (event) 00:00:00 14:04:00 Medica l Branch Alcohol intake 2022-03-27 2022-03-27 0 /d [facility] 00:00:00 00:00:00 Medical Branch Tobacco use and 2014-04-15 2014-04-15 Never used [facility] exposure 00:00:00 00:00:00 Medical Branch Alcohol Comment 2014-04-15 2014-04-15 socially [facility] 00:00:00 00:00:00 Medical Branch Sex Ass[birth year] [facility] 00:00:00 00:00:00 Medical Branch Smoking Status Start Date Stop Date Source Never smoker [facility] Medications Ordered Filled Start Stop Current Ordering Indication Dosage Frequency Signature Comments Components Source Medication Medication Date Date Medication? Clinician (SIG) Name Name No known No Univers medications 5-03 ity of 14:11: [place] [address] Medical Branch No known No Univers medications 5-03 ity of 14:11: [address] Branch Immunizations Ordered Filled Immunization Date Status Comments Sour e Immunization Name Name TDAP 2021-01-18 Completed University 00:00:00 [place] [facility] TDAP 2021-01-18 Completed University of 00:00:00 [facility] Varicella 2018-12-20 Completed University of (varivax)(chicken 00:00:00 [facility] edical pox) Branch Varicella 2018-12-20 Completed University of (varivax)(chicken 00:00:00 [facility] edical pox) Branch TDAP (ADACEL) 2018-12-11 Completed University of VACCINE 00:00:00 [facility] TDAP (ADACEL) 2018-12-11 Completed University of VACCINE 00:00:00 [facility] HPV9 2016-06-04 Completed University of 00:00:00 [facility] HPV9 2016-06-04 Completed University of 00:00:00 [facility] TDAP 2015-04-06 Completed University of 00:00:00 [facility] TDAP 2015-04-06 Completed University of 00:00:00 [facility] Td 2004-11-25 Completed University of 00:00:00 [facility] Tetanus/Diptheria 2004-11-25 Completed Univers ity of 00:00:00 [facility] Td 2004-11-25 Completed University of 00:00:00 [facility] Tetanus/Diptheria 2004-11-25 Completed Univers ity of 00:00:00 [facility] Vital Signs Vital Name Observation Time Observation Value Comments Source Systolic blood 2022-03-27 19:29:00 122 mm[Hg] Univer sity [facility] Diastolic blood 2022-03-27 19:29:00 80 mm[Hg] [facility] Heart rate 2022-03-27 19:29:00 105 /min [facility] Body height 2022-03-27 19:29:00 162.6 cm [facility] Body weight 2022-03-27 19:29:00 87.317 kg [facility] BMI 2022-03-27 19:29:00 33.04 kg/m2 [facility] Procedures This patient has no known procedures. Encounters Start End Encounter Admission Attending Care Care Encounter Source Date/Time Date/Time Type Type Clinicians Facility Department ID 2021-09-24 Outpatient P [facility] [id number] Univers 10:31:27 ity of [facility] 2021-09-24 Outpatient P [facility] [id number] Univers 09:02:29 ity of [facility] 2021-09-24 Emergency [facility] [id number] Univers 06:47:18 ity of [facility] 2021-09-24 Outpatient P [facility] [id number] Univers 06:38:20 ity of [facility] 2021-09-24 Outpatient P [facility] [id number] Univers 05:25:21 ity of [facility] 2021-09-24 Outpatient P [facility] [id number] Univers 04:28:40 ity of [facility] 2021-09-24 Emergency [facility] [id number] Univers 04:28:31 ity of [facility] 2021-09-24 Outpatient P [facility] [id number] Univers 01:10:45 ity of [facility] 2021-09-23 Emergency [facility] [id number] Univers 21:07:50 ity of [facility] 2021-09-23 Emergency [facility] [id number] Univers 07:29:02 ity of [facility] 2021-09-23 Outpatient P [facility] [id number] Univers 06:08:13 ity of [facility] 2021-09-22 Outpatient P [facility] [id number] Univers 23:31:44 ity of [facility] 2021-09-22 Emergency [facility] [id number] Univers 23:30:48 ity of [facility] 2021-09-22 [facility] [id number] Univers 22:58:12 ity of [facility] 2021-09-22 Outpatient U [facility] [id number] Univers 21:53:49 ity of [facility] 2021-09-22 Outpatient P [facility] [id number] Univers 21:28:28 ity of [facility] 2021-09-22 Emergency [facility] [id number] Univers 20:56:44 ity of [facility] 2023-02-07 2023-02-07 Outpatient [facility] [id number] José Luis 16:31:26 16:31:26 0316 [facility] 2022-03-28 2022-03-28 Telephone Jacob [facility] [id number] Univers 00:00:00 00:00:00 [facility] [id number] it y of [place] [id number] Jose as MARY ANN?BLEA [id number] [place] yoselinjhony [address] OFFICE [facility] 2022-03-27 2022-03-27 Outpatient R JACOB [facility] [id number] Univers 14:30:00 23:59:[address] [facility] [place] [place] 2022-03-27 2022-03-27 [facility] [id number] Univers 14:30:00 15:00:00 Visit [facility] [id number] it y of [place] [id number] Jose as MARY ANN?BLEA [id number] [place] yoselinjhony [address] 2022-03-27 2022-03-27 [facility] [id number] Univers 14:30:00 14:30:[address] [facility] [place] 2022-03-27 2022-03-27 Orders Doctor EDUARDO [id number] Univers 00:00:00 00:00:00 Only Unassigned, SRAVAN [id number] ity of [place] [facility] [id number] Jose as [phone] [address] 2021-05-10 2021-05-10 Outpatient Lauren ZAVALETA [facility] [id number] Univers 14:30:00 14:30:00 CORNELIUS flores o chelsie [facility] 2021-03-22 2021-03-22 [facility] [id number] 13:46:41 14:24:31 Cornelius R [employer] ART[employer] OFFICER [id number] Visit [facility] [id number] MATERNAL [id number] & CHILD [address] [place] [address] 2021-03-22 2021-03-22 Outpatient [facility] [id number] Univers 14:00:00 14:00:00 CORNELIUS flores o f [facility] 2021-03-06 2021-03-06 Outpatient R ANTONELLA, [facility] [id number] Univers 11:00:00 11:00:00 DAVE ity of [facility] 2021-03-01 2021-03-01 Outpatient R WAQAR [facility] [id number] Univers 12:45:00 12:45:00 ROSHUNDA ity o f [facility] 2021-02-19 2021-02-19 Outpatient P WAQAR [facility] [id number] Univers 15:41:00 15:41:00 ROSHUNDA ity o f [facility] 2021-02-15 2021-02-15 Outpatient R WAQAR [facility] [id number] Univers 14:30:00 14:30:00 ROSMARYCARMENNDA ity o f [facility] 2021-02-01 2021-02-01 Outpatient R WAQAR [facility] [id number] Univers 15:15:00 15:15:00 ROSMARYCARMENNDA ity o f [facility] 2021-01-18 2021-01-18 Outpatient R WAQAR [facility] [id number] Univers 13:45:00 13:45:00 ROSMARYCARMENNDA ity o f [facility] 2021-01-06 2021-01-06 Outpatient R WAQAR [facility] [id number] Univers 09:45:00 09:45:00 ROSHUNDA ity o f [facility] 2020-12-23 2020-12-23 Outpatient R AKINALOKPE, [facility] [id number] Univers 11:00:00 11:00:00 BOOM ity o f [facility] 2020-12-20 2020-12-20 Outpatient R AKINSIPE, [facility] [id number] Univers 10:45:00 10:45:00 BOOM ity o f [facility] 2020-12-20 2020-12-20 Outpatient R WAQAR [facility] [id number] Univers 09:45:00 09:45:00 ROSHUNDA ity o f [facility] 2020-12-13 2020-12-13 Outpatient P HELGA [facility] [id number] Univers 14:15:00 14:15:00 JAMAAL Hilliard [facility] 2020-11-29 2020-11-29 Outpatient R [facility] [id number] Univers 14:30:00 14:30:00 [facility] 2020-11-22 2020-11-22 Outpatient R MARYELLEN, [facility] [id number] Univers 14:00:00 14:00:00 BOOM ity o f [facility] 2020-11-15 2020-11-15 Outpatient P JASON [facility] [id number] Univers 13:00:00 13:00:00 CHRISTINA [facility] 2020-11-08 2020-11-08 Outpatient P EDYTA FRANCIS [facility] [id number] Univers 15:00:00 15:00:00 EDYTA FRANCIS [facility] 2020-10-31 2020-10-31 Outpatient P STEVE GRANADOS [facility] [id number] Univers 15:15:00 15:15:00 STEVE GRANADOS [facility] 2020-10-24 2020-10-24 Outpatient R AKINSIMARITZA, [facility] [id number] Univers 13:45:00 13:45:00 BOOM ity o f [facility] 2020-10-06 2020-10-06 Outpatient R WAQAR [facility] [id number] Univers 12:45:00 12:45:00 VENESSAA laureny o f [facility] 2020-09-08 2020-09-08 Outpatient R WAQAR [facility] [id number] Univers 10:45:00 10:45:00 LOSINDA ity o f [facility] 2020-08-31 2020-08-31 Outpatient R WAQAR, [facility] [id number] Univers 12:45:00 12:45:00 ROSMARYCARMENNDA ity o f [facility] 2020-08-24 2020-08-24 Outpatient P [facility] [id number] Univers 13:30:00 13:30:[address] [facility] [place] [place] 2020-08-03 2020-08-03 Outpatient R WAQAR [facility] [id number] Univers 12:45:00 12:45:00 LOISNDA ity o f [facility] 2020-07-12 2020-07-12 Outpatient R WAQAR [facility] [id number] Univers 14:15:00 14:15:00 CORNELIUS holguin [facility] 2020-03-21 2020-03-21 Outpatient [facility] [id number] Univers 15:00:00 15:00:00 CORNELIUS holguin [facility] Results This patient has no known results.
[2023-05-27 17:14] LABS: Absolute Lymphocytes (CBC) 2.1 K/uL (0.7-4.9); Hematocrit 41.2 % (36.0-45.0); Lymphocytes % 30.7 % (15.3-44.8); MCV 93.1 fL (80-100); MPV 7.8 fL (7.6-11.3); RBC Red Blood Cell Count 4.42 M/uL (3.86-4.86)
[2023-05-27] MEDS ORDERED: NA CHLORIDE 0.9% 1,000 ML ONE (17:17)
--- NOTE | 2023-05-27 17:22 | RAD REPORT ---
EXAM DESCRIPTION: RAD - Chest Single View - 05/27/2023 5:16 pm CLINICAL HISTORY: CHEST PAIN Chest pain. FINDINGS: Portable technique limits examination quality. The lungs are grossly clear. The heart is normal in size. No displaced fractures. IMPRESSION: No acute intrathoracic process suspected.
[2023-05-27 17:42] LABS: ALT/SGPT 28 U/L (13-56); AST/SGOT 16 U/L (15-37); Albumin 3.6 g/dL (3.4-5.0); Alkaline Phosphatase 61 U/L (45-117); BUN Blood Urea Nitrogen 11 mg/dL (7-18); Bicarbonate 27 mEq/L (21-32); Bilirubin Total 0.4 mg/dL (0.2-1.0); Glomerular Filtration Rate 82 ml/min (=/>90); Glucose Level 144 mg/dL (74-106); Lipase 28 U/L (13-75); Magnesium 2.1 mg/dL (1.6-2.4); Potassium 3.9 mEq/L (3.5-5.1); Protein, Total 7.4 g/dL (6.4-8.2); Sodium Level 140 mEq/L (136-145)
[2023-05-27 17:44] LABS: Bilirubin Direct < 0.1 mg/dL (0-0.2); Bilirubin Indirect, Calculated ND mg/dL (0.2-0.8); Troponin High Sensitivity < 3.0 pg/mL (<58.9)
[2023-05-27] MEDS ORDERED: HYDROCODONE/APAP 5/325 MG TAB ONE (17:58)
[2023-05-27 18:17] LABS: Specific Gravity 1.022 (1.005-1.030)
[2023-05-27 18:18] LABS: Specific Gravity 1.022 (1.005-1.030); Urine Bacteria None Seen /HPF (<20); Urine Bilirubin NEGATIVE (Negative); Urine Blood 1+ (Negative); Urine Clarity Clear (Clear); Urine Color Light-Yellow (Yellow); Urine Glucose TRACE (Negative); Urine Mucus Slight /HPF (None Seen); Urine Protein NEGATIVE (Negative); Urine RBC <5 /HPF (None Seen); Urine Urobilinogen Normal (Normal); Urine pH 7.5 (5.0-7.0)
--- NOTE | 2023-05-27 19:38 | ER ---
Nurse's Notes [facility] Name: Suraj Courtney Age: 32 yrs Sex: Female : 1990 Arrival Date: 05/27/2023 Time: 16:36 Bed 13 Private MD: Diagnosis: Chest pain, unspecified;Acute stress reaction Presentation: 05/27 16:47 Chief complaint: Patient states: About 15 minutes ago I started getting shaky, dizzy, mb9 nauseous, cold sweats, and having chest pain. I've been under a lot of stress lately but I just don't feel right". Coronavirus screen: Vaccine status: Patient reports being unvaccinated. Ebola Screen: No symptoms or risks identified at this time. Initial Sepsis Screen: Does the patient meet any 2 criteria? No. Patient's initial sepsis screen is negative. Does the patient have a suspected source of infection? No. Patient's initial sepsis screen is negative. Risk Assessment: Do you want to hurt yourself or someone else? Patient reports no desire to harm self or others. Onset of symptoms was May 27, 2023. 16:47 Method Of Arrival: Wheelchair mb9 16:47 Acuity: SHAW 3 mb9 Triage Assessment: 16:50 General: Appears uncomfortable, Behavior is anxious. Pain: Complains of pain in chest mb9 Pain does not radiate. Neuro: Forbes Agitation-Sedation Scale (RASS): 0 - Alert and Calm Level of Consciousness is awake, alert, obeys commands, Oriented to person, place, time, situation, Appropriate for age Reports dizziness. Cardiovascular: Reports chest pain, nausea. Respiratory: Airway is patent. GI: Reports nausea. Derm: Skin is pink, warm \\T\\ dry. Musculoskeletal: Range of motion: intact in all extremities. 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 - Social history:: Smoking status: Patient denies any tobacco usage or history of. Screenin:55 [facility] ED Fall Risk Assessment (Adult) History of falling in the last 3 months, bp including since admission No falls in past 3 months (0 pts). Abuse screen: Denies threats or abuse. Denies injuries from another. Nutritional screening: No deficits noted. Tuberculosis screening: No symptoms or risk factors identified. Assessment: 16:50 General: SEE TRIAGE NOTE. bp 17:55 Reassessment: Patient appears in no apparent distress at this time. Patient is alert, bp oriented x 3, equal unlabored respirations, skin warm/dry/pink. Vital Signs: 16:47 BP 142 / 84; Pulse 70; Resp 20; Temp 98(O); Pulse Ox 99% on R/A; Weight 93.89 kg; mb9 Height 5 ft. 4 in. ; 17:55 BP 133 / 74; Pulse 65; Resp 16; Pulse Ox 100% ; bp 19:06 BP 121 / 77; Pulse 65; Resp 16; Pulse Ox 99% ; vc1 16:47 Body Mass Index 35.53 (93.89 kg, 162.56 cm) mb9 ED Course: 16:37 Patient arrived in ED. im 16:45 Víctor Mendiola, ALFONZO is Primary Nurse. bp 16:47 Arm band placed on. mb9 16:49 Triage completed. mb9 16:51 Inocencia Beatty FNP-C is [facility]. snw 16:51 Zachary Bell MD is Attending Physician. snw 17:05 Inserted saline lock: 20 gauge in right antecubital area, using aseptic technique. bp Blood collected. 17:18 XRAY Chest (1 view) In Process Unspecified. EDMS 17:55 Patient has correct armband on for positive identification. Bed in low position. Call bp light in reach. Side rails up X2. 19:49 No provider procedures requiring assistance completed. IV discontinued, intact, vc1 bleeding controlled, No redness/swelling at site. Pressure dressing applied. Administered Medications: 17:14 Drug: NS 0.9% IV 1000 ml Route: IV; Rate: 100 ml/hr; Site: right antecubital; bp 17:52 Drug: HYDROcodone-acetaminophen PO 5 mg-325 mg 1 tabs Route: PO; bp Medication: 19:49 VIS not applicable for this client. vc1 Outcome: 19:37 Discharge ordered by . eliseo 19:49 Discharged to home ambulatory, with family. vc1 19:49 Condition: good 19:49 Discharge instructions given to patient, family, Instructed on discharge instructions, follow up and referral plans. Demonstrated understanding of instructions, follow-up care. 19:49 Patient left the ED. vc1 Signatures: Dispatcher [employer] EDMS Inocencia Beatty, ELIZ-C TABLEAU REPORT DEVELOPER-Víctor Hart, RN RN bp Bernadette Sutton RN RN vc1 Jazz Guzman RN RN mb9 [place]
--- NOTE | 2023-05-27 19:38 | EDPHYS ---
Physician Documentation [facility] Name: Suraj Courtney Age: 32 yrs Sex: Female : 1990 Arrival Date: 05/27/2023 Time: 16:36 Bed 13 Private MD: ED Physician Zachary Bell HPI: 05/27 17:00 This 32 yrs old Female presents to ER via Wheelchair with complaints of Dizziness, snw shakes. 17:00 The patient presents with dizziness, generalized weakness, shaky, diaphoretic. Onset: snw The symptoms/episode began/occurred acutely. Context: occurred at work, occurred while the patient was standing. Modifying factors: The symptoms are alleviated by nothing. Associated signs and symptoms: Pertinent positives: chest pain. Severity of symptoms: At their worst the symptoms were moderate in the emergency department the symptoms have improved. The patient has not experienced similar symptoms in the past. It is unknown whether or not the patient has recently seen a physician. 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 - Social history:: Smoking status: Patient denies any tobacco usage or history of. ROS: 16:58 Eyes: Negative for injury, pain, redness, and discharge, ENT: Negative for injury, snw pain, and discharge, Neck: Negative for injury, pain, and swelling, Cardiovascular: Negative for palpitations and edema, positive for chest pain Respiratory: Negative for shortness of breath, cough, wheezing, and pleuritic chest pain, Abdomen/GI: Negative for abdominal pain, nausea, vomiting, diarrhea, and constipation, Back: Negative for injury and pain, : Negative for injury, bleeding, discharge, and swelling, MS/Extremity: Negative for injury and deformity, Skin: Negative for injury, rash, and discoloration. 16:58 Constitutional: Positive for body aches, fatigue, malaise, shakiness. 16:58 Neuro: Positive for diaphoresis, shakiness. Exam: 16:58 Constitutional: This is a well developed, well nourished patient who is awake, alert, snw and in no acute distress. Head/Face: Normocephalic, atraumatic. Eyes: Pupils equal round and reactive to light, extra-ocular motions intact. Lids and lashes normal. Conjunctiva and sclera are non-icteric and not injected. Cornea within normal limits. Periorbital areas with no swelling, redness, or edema. ENT: Nares patent. No nasal discharge, no septal abnormalities noted. Tympanic membranes are normal and external auditory canals are clear. Oropharynx with no redness, swelling, or masses, exudates, or evidence of obstruction, uvula midline. Mucous membranes moist. Neck: Trachea midline, no thyromegaly or masses palpated, and no cervical lymphadenopathy. Supple, full range of motion without nuchal rigidity, or vertebral point tenderness. No Meningismus. Chest/axilla: Normal chest wall appearance and motion. Nontender with no deformity. No lesions are appreciated. Cardiovascular: Regular rate and rhythm with a normal S1 and S2. No gallops, murmurs, or rubs. Normal PMI, no JVD. No pulse deficits. Respiratory: Lungs have equal breath sounds bilaterally, clear to auscultation and percussion. No rales, rhonchi or wheezes noted. No increased work of breathing, no retractions or nasal flaring. Abdomen/GI: Soft, non-tender, with normal bowel sounds. No distension or tympany. No guarding or rebound. No evidence of tenderness throughout. Back: No spinal tenderness. No costovertebral tenderness. Full range of motion. Skin: Warm, dry with normal turgor. Normal color with no rashes, no lesions, and no evidence of cellulitis. MS/ Extremity: Pulses equal, no cyanosis. Neurovascular intact. Full, normal range of motion. Neuro: Awake and alert, GCS 15, oriented to person, place, time, and situation. Cranial nerves II-XII grossly intact. Motor strength 5/5 in all extremities. Sensory grossly intact. Cerebellar exam normal. Normal gait. Psych: Awake, alert, with orientation to person, place and time. Behavior, mood, and affect are within normal limits. Vital Signs: 16:47 BP 142 / 84; Pulse 70; Resp 20; Temp 98(O); Pulse Ox 99% on R/A; Weight 93.89 kg; mb9 Height 5 ft. 4 in. ; 17:55 BP 133 / 74; Pulse 65; Resp 16; Pulse Ox 100% ; bp 19:06 BP 121 / 77; Pulse 65; Resp 16; Pulse Ox 99% ; vc1 16:47 Body Mass Index 35.53 (93.89 kg, 162.56 cm) mb9 MDM: 16:53 Patient medically screened. snw 19:22 Differential diagnosis: cardiac arrhythmia, generalized weakness, near-syncope, snw anxiety, stress. Data reviewed: vital signs, nurses notes, lab test result(s), EKG, radiologic studies. I considered the following discharge prescriptions or medication management in the emergency department Medications were administered in the Emergency Department. See MAR. Historians other than the Patient: Spouse/Significant Other: . Counseling: I had a detailed discussion with the patient and/or guardian regarding: the historical points, exam findings, and any diagnostic results supporting the discharge/admit diagnosis, lab results, radiology results, the need for outpatient follow up, for definitive care, to return to the emergency department if symptoms worsen or persist or if there are any questions or concerns that arise at home. Special discussion: Based on the patient's history, exam, and Dx evaluation, there is no indication for emergent intervention or inpatient Tx. It is understood by the patient/guardian that if the Sx's persist or worsen they need to return immediately for re-evaluation. Based on the history and exam findings, there is no indication for further emergent testing or inpatient evaluation. I discussed with the patient/guardian the need to see the primary care provider for further evaluation of the symptoms. 05/27 16:52 Order name: Basic Metabolic Panel; Complete Time: 17:48 snw 05/27 16:52 Order name: CBC with Diff; Complete Time: 17:21 snw 05/27 16:52 Order name: LFT's; Complete Time: 17:48 snw 05/27 16:52 Order name: Magnesium; Complete Time: 17:48 snw 05/27 16:52 Order name: Troponin HS; Complete Time: 17:48 snw 05/27 16:52 Order name: Lipase; Complete Time: 17:48 snw 05/27 16:53 Order name: Urine W/Microscopic (UAM); Complete Time: 18:19 snw 05/27 16:53 Order name: PREGU; Complete Time: 18:23 snw 05/27 16:55 Order name: TSH; Complete Time: 18:08 bp 05/27 19:00 Order name: Troponin High Sensitivity; Complete Time: 20:46 snw 05/27 16:52 Order name: XRAY Chest (1 view); Complete Time: 17:23 snw 05/27 16:52 Order name: EKG; Complete Time: 16:53 snw 05/27 19:00 Order name: EKG; Complete Time: 19:00 snw 05/27 16:52 Order name: Cardiac monitoring; Complete Time: 17:04 snw 05/27 16:52 Order name: EKG - Nurse/Tech; Complete Time: 17:03 snw 05/27 16:52 Order name: IV Saline Lock; Complete Time: 17:03 snw 05/27 16:52 Order name: Labs collected and sent; Complete Time: 17:03 snw 05/27 16:52 Order name: O2 Per Protocol; Complete Time: 17:03 snw 05/27 16:52 Order name: O2 Sat Monitoring; Complete Time: 17:03 snw 05/27 19:00 Order name: EKG - Nurse/Tech; Complete Time: 19:15 snw EC:00 Rate is 71 beats/min. Rhythm is regular. QRS [place] is Normal. ME interval is normal. Q snw waves are Present in leads II, III, aVF, V3, V4, V5, V6. Clinical impression: Abnormal EKG without significant change. 19:17 Rate is 63 beats/min. QRS [place] is Normal. ME interval is normal. QRS interval is snw normal. Q waves are Old in leads I, II, III, V2, V3, V4, V5, V6. Clinical impression: NSR w/ Non-specific ST/T Changes. Administered Medications: 17:14 Drug: NS 0.9% IV 1000 ml Route: IV; Rate: 100 ml/hr; Site: right antecubital; bp 17:52 Drug: HYDROcodone-acetaminophen PO 5 mg-325 mg 1 tabs Route: PO; bp Disposition: 05/28 12:05 Co-signature as Attending Physician, Zachary Bell MD I reviewed the patient's care rt provided by the Advanced Practice Provider and agree with the diagnosis and treatment plan. Disposition Summary: 05/27/23 19:37 Discharge Ordered Location: Home snw Condition: Stable snw Diagnosis - Chest pain, unspecified snw - Acute stress reaction snw Followup: snw - With: Emergency Department - When: As needed - Reason: Worsening of condition Followup: snw - With: Private Physician - When: 5 - 6 days - Reason: Recheck today's complaints, Continuance of care, Re-evaluation by your physician Discharge Instructions: - Discharge Summary Sheet snw - Stress, Adult snw - Managing Stress, Adult snw Forms: - Work release form snw - Medication Reconciliation Form snw - Thank You Letter snw - Antibiotic Education snw - Prescription Opioid Use snw - [email or web address] snw Signatures: Dispatcher [employer] EDInocencia Roach, VENDING MACHINE ASSEMBLER-C VENDING MACHINE ASSEMBLER-Csnw Víctor Mendiola, RN RN Jazz Collado RN RN mb9 Zachary Bell MD MD rt
[2023-05-27 20:21] VITALS: TEMP 98
[2023-05-27 20:24] VITALS: BP 121/77; O2SAT 99
--- NOTE | 2023-05-29 12:34 | EKG ---
Test Date: 2023-05-27 Test Time: 19:10:02 Mine Wedge Sawyer: VERONICA MEASUREMENT RESULTS: Intervals: Rate: 63 SC: 136 QRSD: 88 QT: 416 QTc: 425 [place]: P: 58 SC: 136 QRS: 82 T: 61 INTERPRETIVE STATEMENTS: Normal sinus rhythm Normal ECG Compared to ECG 05/27/2023 17:00:29 No significant changes Electronically Signed On 05-29-23 12:32:43 CDT by David Dominguez
--- NOTE | 2023-05-29 12:34 | EKG ---
Test Date: 2023-05-27 Test Time: 17:00:29 Textile Conversion Manager: JEANNE MEASUREMENT RESULTS: Intervals: Rate: 71 CO: 132 QRSD: 90 QT: 414 QTc: 449 [place]: P: 52 CO: 132 QRS: 84 T: 57 INTERPRETIVE STATEMENTS: Normal sinus rhythm Normal ECG Compared to ECG 02/19/2023 01:45:13 Sinus arrhythmia no longer present Electronically Signed On 05-29-23 12:33:04 CDT by David Dominguez
== END 2023-05-27 19:49 | disposition home or self-care (01) ==
LOC: ER 16:36
DX: F43.0 Acute stress reaction (principal); Z88.5 Allergy status to narcotic agent; Z88.6 Allergy status to analgesic agent; Z91.018 Allergy to other foods; Z91.041 Radiographic dye allergy status
CPT/HCPCS: 93005 ×2; 85025; 81001; 80048; 36415; 83735; 81025; 80076; 84443; 84484 ×2; 83690; 71045; 99284; J7030

== ENCOUNTER 2023-06-10 20:52 | Emergency (ER) | payer OTHER ==
--- OUTSIDE RECORDS SUMMARY | 2023-06-10 20:56 | XMS REPORT | Continuity of Care Document ---
:1990 Author Organization [facility] t Address [address] [place] [address] Care Team Providers Name Role Phone MARISOLCRISTHIAN Primary Care Physician Unavailable Charles James MD Attending Clinician CHARLES JAMES Attending Clinician Unavailable Ember Dalal Attending Clinician EMBER FRANKS Attending Clinician Unavailable Doctor Unassigned, [place] Attending Clinician Unavailable CORNELIUS ZAVALETA Attending Clinician [...] Number Effective Date Expiration Date Yong moser [facility] [id number] 2018 MEDICAID 00:00:00 Problems Condition Condition Condition [...] bilateral 6-16 ity of tubal tubal 00:00: [place] ligation ligation 00 Medica l Branch Overweight Overweight Disease Active U nivers (BMI (BMI 6-16 ity of 25.0-29.9) 25.0-29.9) [place] S/P S/P Disease Active Univers 4-06 ity of section section 00:00: [place] [facility] Disease Active Univers contractio contractio 3-29 it y of ns ns 00:00: [place] [facility] History of History of Disease Active 2019-11 U nivers 1-30 ity of delivery delivery 00:00: [place] [facility] History of History of Disease Active 2019-11 U nivers cholecyste cholecyste 1-30 it y of ctomy ctomy 00:00: [place] [facility] Cholelithi Cholelithi Disease Active 2019-11 U nivers asis asis 1-18 it[place] of affecting [place] estella in second in second Bran ch trimester, trimester, antepartum antepartum Gallstones Gallstones Disease Active 2019- Overview : Univers 1-17 Formattin ity of 00:00: g of this [place] note Medical might be Branch different from the original. Added automatic ally from request for surgery [id number] Nausea and Nausea and Disease Active 2019-11 U nivers vomiting vomiting 0-17 ity of in in 00:00: [place] 00 [facility] Branch 9 weeks 9 weeks Disease Active 2019-11 Univers gestation gestation 0-17 ity of of of 00:00: [place] 00 [facility] Hyperemesi Hyperemesi Disease Active 2019-11 U nivers s s 0-07 ity of gravidarum gravidarum 00:00[place] before end before end 00 Me dical of 22 week of 22 week Br anch gestation gestation with with dehydratio dehydratio n n Obesity Obesity Disease Active 2019-11 Univers (BMI (BMI 0-07 ity of 30-39.9) 30-39.9) 00:00: [place] 00 [facility] Branch Hyperemesi Hyperemesi Disease Active 2019-11 U [...] gestation 2-29 ity of of of 00:00: [place] 00 [facility] Branch Nausea and Nausea and Disease Active U nivers vomiting vomiting 8-22 ity of during during 00:00: [place] 00 [facility] Branch BMI BMI Disease Active Univers 32.0-32.9, [...] high 6 ity of risk risk 00:00: [place] 00 [facility] in third in third Branch trimester trimester [...] different from the original. 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 Encounter Encounter Disease Active Uni vers [...] 00:00: [place] reaction 00 Medical s Branch Seibert Propensi Active Hives 2013- Univers ty to [...] Alcohol Std Drinks Medica l Branch History [facility] University o f [place] Alcohol Binge [facility] Exposure to 2022-03-17 2022-03-27 Not sure [facility] SARS-CoV-2 (event) 00:00:00 14:04:00 Medica l Branch Alcohol intake 2022-03-27 2022-03-27 0 /d [facility] 00:00:00 00:00:00 Medical Branch Tobacco use and 2014-04-15 2014-04-15 Never used [facility] exposure 00:00:00 00:00:00 Medical Branch Alcohol Comment 2014-04-15 2014-04-15 socially [facility] 00:00:00 00:00:00 Medical Branch Sex Ass[birth year] [facility] 00:00:00 00:00:00 Medical Branch Smoking Status Start Date Stop Date Source Never smoker [facility] Medications Ordered Filled Start Stop Current Ordering Indication Dosage Frequency Signature Comments Components Source Medication Medication Date Date Medication? Clinician (SIG) Name Name No known No Univers medications 5-03 ity of 14:11: [place] [address] Medical Branch No known No Univers medications 5-03 ity of 14:11: [address] Branch Immunizations Ordered Filled Immunization Date Status Comments Sour e Immunization Name Name TDAP 2021-01-18 Completed University 00:00:00 [place] [facility] TDAP 2021-01-18 Completed University of 00:00:00 [facility] Varicella 2018-12-20 Completed University of (varivax)(chicken 00:00:00 [facility] edical pox) Branch Varicella 2018-12-20 Completed University of (varivax)(chicken 00:00:00 [facility] edical pox) Branch TDAP (ADACEL) 2018-12-11 Completed University of VACCINE 00:00:00 [facility] TDAP (ADACEL) 2018-12-11 Completed University of VACCINE 00:00:00 [facility] HPV9 2016-06-04 Completed University of 00:00:00 [facility] HPV9 2016-06-04 Completed University of 00:00:00 [facility] TDAP 2015-04-06 Completed University of 00:00:00 [facility] TDAP 2015-04-06 Completed University of 00:00:00 [facility] Td 2004-11-25 Completed University of 00:00:00 [facility] Tetanus/Diptheria 2004-11-25 Completed Univers ity of 00:00:00 [facility] Td 2004-11-25 Completed University of 00:00:00 [facility] Tetanus/Diptheria 2004-11-25 Completed Univers ity of 00:00:00 [facility] Vital Signs Vital Name Observation Time Observation Value Comments Source Systolic blood 2022-03-27 19:29:00 122 mm[Hg] Univer sity [facility] Diastolic blood 2022-03-27 19:29:00 80 mm[Hg] [facility] Heart rate 2022-03-27 19:29:00 105 /min [facility] Body height 2022-03-27 19:29:00 162.6 cm [facility] Body weight 2022-03-27 19:29:00 87.317 kg [facility] BMI 2022-03-27 19:29:00 33.04 kg/m2 [facility] Procedures This patient has no known procedures. Encounters Start End Encounter Admission Attending Care Care Encounter Source Date/Time Date/Time Type Type Clinicians Facility Department ID 2021-09-24 Outpatient P [facility] JOANN [id number] Univers 10:31:27 ity of [facility] 2021-09-24 Outpatient P [facility] [id number] Univers 09:02:29 ity of [facility] 2021-09-24 Emergency [facility] [id number] Univers 06:47:18 ity of [facility] 2021-09-24 Outpatient P [facility] JO[facility] [id number] Univers 06:38:20 ity of [facility] 2021-09-24 Outpatient P [facility] JO[facility] [id number] Univers 05:25:21 ity of [facility] 2021-09-24 Outpatient P [facility] [id number] Univers 04:28:40 ity of [facility] 2021-09-24 Emergency [facility] [id number] Univers 04:28:31 ity of [facility] 2021-09-24 Outpatient P [facility] [id number] Univers 01:10:45 ity of [facility] 2021-09-23 Emergency [facility] [id number] Univers 21:07:50 ity of [facility] 2021-09-23 Emergency [facility] [id number] Univers 07:29:02 ity of [facility] 2021-09-23 Outpatient P [facility] [id number] Univers 06:08:13 ity of [facility] 2021-09-22 Outpatient P [facility] [id number] Univers 23:31:44 ity of [facility] 2021-09-22 Emergency [facility] [id number] Univers 23:30:48 ity of [facility] 2021-09-22 [id number] Univers 22:58:12 ity of [facility] 2021-09-22 Outpatient U [facility] JO[facility] [id number] Univers 21:53:49 ity of [facility] 2021-09-22 Outpatient P [facility] [id number] Univers 21:28:28 ity of [facility] 2021-09-22 Emergency [facility] [id number] Univers 20:56:44 ity of [facility] 2023-02-07 2023-02-07 Outpatient [facility] [id number] José Luis 16:31:26 16:31:[address] [facility] 2022-03-28 2022-03-28 Telephone Jacob [facility] [id number] Univers 00:00:00 00:00:00 [facility] [id number] it y of [place] [id number] Jose as MARY ANN?BLEA [id number] Ne yoselinjhony [address] OFFICE [facility] 2022-03-27 2022-03-27 Outpatient R JACOB [facility] [id number] Univers 14:30:00 23:59:00 CHARLES flores [facility] 2022-03-27 2022-03-27 [facility] [id number] Univers 14:30:00 15:00:00 Visit [facility] [id number] it y of [place] [id number] Jose as MARY ANN?BLEA [id number] Ne yoselinjhony [address] 2022-03-27 2022-03-27 [facility] [id number] Univers 14:30:00 14:30:00 EMBER charles [facility] 2022-03-27 2022-03-27 Orders Doctor EDUARDO [id number] Univers 00:00:00 00:00:00 Only Unassigned, SRAVAN [id number] ity of [place] [facility] [id number] Jose as [id number] [address] 2021-05-10 2021-05-10 Outpatient Lauren ZAVALETA [facility] [id number] Univers 14:30:00 14:30:00 CORNELIUS flores o chelsie [facility] 2021-03-22 2021-03-22 Routine [facility] [id number] 13:46:41 14:24:31 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 [id number] Visit [facility] [id number] MATERNAL [id number] & CHILD [address] [place] [address] 2021-03-22 2021-03-22 [facility]patient [facility] [id number] Univers 14:00:00 14:00:00 CORNELIUS flores o f [facility] 2021-03-06 2021-03-06 Outpatient R ANTONELLA, [facility] [id number] Univers 11:00:00 11:00:00 DAVE ity of [facility] 2021-03-01 2021-03-01 Outpatient R WAQAR [facility] [id number] Univers 12:45:00 12:45:00 ROSHUNDA ity o f [facility] 2021-02-19 2021-02-19 Outpatient P WAQAR [facility] JOANN [id number] Univers 15:41:00 15:41:00 ROSHUNDA ity o f [facility] 2021-02-15 2021-02-15 Outpatient R WAQAR [facility] [id number] Univers 14:30:00 14:30:00 ROSMARYCARMENNDA ity o f [facility] 2021-02-01 2021-02-01 Outpatient R WAQAR [facility] [id number] Univers 15:15:00 15:15:00 ROSMARYCARMENNDA ity o f [facility] 2021-01-18 2021-01-18 Outpatient R WAQAR [facility] [id number] Univers 13:45:00 13:45:00 ROSMARYCARMENNDA ity o f [facility] 2021-01-06 2021-01-06 Outpatient R WAQAR [facility] [id number] Univers 09:45:00 09:45:00 ROSHUNDA ity o f [facility] 2020-12-23 2020-12-23 Outpatient R AKINALOKPE, [facility] [id number] Univers 11:00:00 11:00:00 BOOM ity o f [facility] 2020-12-20 2020-12-20 Outpatient R AKINSIPE, [facility] [id number] Univers 10:45:00 10:45:00 BOOM ity o f [facility] 2020-12-20 2020-12-20 Outpatient R WAQAR [facility] [id number] Univers 09:45:00 09:45:00 ROSHUNDA ity o f [facility] 2020-12-13 2020-12-13 Outpatient P HELGA [facility] [id number] Univers 14:15:00 14:15:00 JAMAAL Hilliard [facility] 2020-11-29 2020-11-29 Outpatient R [facility] [id number] Univers 14:30:00 14:30:00 [facility] 2020-11-22 2020-11-22 Outpatient R MARYELLEN, [facility] [id number] Univers 14:00:00 14:00:00 BOOM ity o f [facility] 2020-11-15 2020-11-15 Outpatient P JASON [facility] [id number] Univers 13:00:00 13:00:00 CHRISTINA [facility] 2020-11-08 2020-11-08 Outpatient P EDYTA FRANCIS [facility] [id number] Univers 15:00:00 15:00:00 EDYTA FRANCIS [facility] 2020-10-31 2020-10-31 Outpatient P STEVE GRANADOS [facility] [id number] Univers 15:15:00 15:15:00 STEVE GRANADOS [facility] 2020-10-24 2020-10-24 Outpatient R AKINSIMARITZA, [facility] [id number] Univers 13:45:00 13:45:00 BOOM ity o f [facility] 2020-10-06 2020-10-06 Outpatient R WAQAR [facility] [id number] Univers 12:45:00 12:45:00 VENESSAA laureny o f [facility] 2020-09-08 2020-09-08 Outpatient R WAQAR [facility] [id number] Univers 10:45:00 10:45:00 LOISNDA ity o f [facility] 2020-08-31 2020-08-31 Outpatient R WAQAR, [facility] [id number] Univers 12:45:00 12:45:00 ROSMARYCARMENNDA ity o f [facility] 2020-08-24 2020-08-24 Outpatient P [facility] [id number] Univers 13:30:00 13:30:00 ity [facility] 2020-08-03 2020-08-03 Outpatient R WAQAR [facility] [id number] Univers 12:45:00 12:45:00 LOISNDA ity o f [facility] 2020-07-12 2020-07-12 Outpatient R WAQAR [facility] [id number] Univers 14:15:00 14:15:00 CORNELIUS holguin [facility] 2020-03-21 2020-03-21 [facility] [id number] Univers 15:00:00 15:00:00 CORNELIUS holguin [facility] Results This patient has no known results.
--- NOTE | 2023-06-10 22:03 | EDPHYS ---
Physician Documentation [facility] Name: Suraj Courtney Age: 32 yrs Sex: Female : 1990 Arrival Date: 06/10/2023 Time: 20:52 Bed 16 Private MD: ED Physician Jeanne Pearson HPI: 06/10 21:35 This 32 yrs old Female presents to ER via Ambulatory with complaints of Foot Pain. sp3 21:35 32-year-old female with history of gallstones, pancreatitis who presents to the ED with sp3 chief complaint right foot pain in the plantar region for 3 to 4 days. 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 She also states that it feels sharp like "there is glass in it" but denies any injury or potential foreign body or barefoot walking outside or in an area where there could be potential foreign body. There is no direct trauma, pain in the ankle or superior aspect of the foot, or any symptoms proximally or in any other extremity. She also denies headache, neck pain, chest pain, shortness breath, abdominal pain, nausea, vomiting, diarrhea, focal neurodeficit, loss of balance, any other signs or symptoms on review of systems at this time.. Historical: - Allergies: 21:30 Demerol; rv 21:30 Ibuprofen; rv 21:30 Iodinated Contrast Media - IV Dye; rv 21:30 ORANGES; rv - PMHx: 21:30 GALLSTONES; hyperemesis gravidarum; Pancreatitis; rv - PSHx: 21:30 Appendectomy; section; Cholecystectomy; tubal ligation; rv - Immunization history:: Adult Immunizations unknown. - Social history:: Smoking status: unknown. ROS: 21:37 Constitutional: Negative for fever, chills, and weight loss, Eyes: Negative for injury, sp3 pain, redness, and discharge, ENT: Negative for injury, pain, and discharge, Neck: Negative for injury, pain, and swelling, Cardiovascular: Negative for chest pain, palpitations, and edema, Respiratory: Negative for shortness of breath, cough, wheezing, and pleuritic chest pain, Abdomen/GI: Negative for abdominal pain, nausea, vomiting, diarrhea, and constipation, Back: Negative for injury and pain, Skin: Negative for injury, rash, and discoloration, Neuro: Negative for headache, weakness, numbness, tingling, and seizure, Psych: Negative for depression, anxiety, suicide ideation, homicidal ideation, and hallucinations, Allergy/Immunology: Negative for hives, rash, and allergies, Endocrine: Negative for neck swelling, polydipsia, polyuria, polyphagia, and marked weight changes, Hematologic/Lymphatic: Negative for swollen nodes, abnormal bleeding, and unusual bruising. 21:37 All other systems are negative. Exam: 21:37 Constitutional: This is a well developed, well nourished patient who is awake, alert, sp3 and in no acute distress. Head/Face: Normocephalic, atraumatic. Eyes: Pupils equal round and reactive to light, extra-ocular motions intact. Lids and lashes normal. Conjunctiva and sclera are non-icteric and not injected. Cornea within normal limits. Periorbital areas with no swelling, redness, or edema. Neck: Trachea midline, no thyromegaly or masses palpated, and no cervical lymphadenopathy. Supple, full range of motion without nuchal rigidity, or vertebral point tenderness. No Meningismus. Chest/axilla: Normal chest wall appearance and motion. Nontender with no deformity. No lesions are appreciated. Cardiovascular: Regular rate and rhythm with a normal S1 and S2. No gallops, murmurs, or rubs. Normal PMI, no JVD. No pulse deficits. Respiratory: Lungs have equal breath sounds bilaterally, clear to auscultation and percussion. No rales, rhonchi or wheezes noted. No increased work of breathing, no retractions or nasal flaring. Abdomen/GI: Soft, non-tender, with normal bowel sounds. No distension or tympany. No guarding or rebound. No evidence of tenderness throughout. Back: No spinal tenderness. No costovertebral tenderness. Full range of motion. Skin: Warm, dry with normal turgor. Normal color with no rashes, no lesions, and no evidence of cellulitis. Neuro: Awake and alert, GCS 15, oriented to person, place, time, and situation. Cranial nerves II-XII grossly intact. Motor strength 5/5 in all extremities. Sensory grossly intact. Cerebellar exam normal. Normal gait. Psych: Awake, alert, with orientation to person, place and time. Behavior, mood, and affect are within normal limits. 21:37 Musculoskeletal/extremity: Normal extremity exam except mild pain where the plantar tendon inserts into the calcaneus posteriorly. Distal neurovascular exam is normal.. Vital Signs: 21:29 BP 143 / 88; Pulse 80; Resp 18; Temp 97.8; Pulse Ox 100% ; Weight 90.72 kg; Height 5 rv ft. 4 in. ; 21:30 BP 136 / 79; Pulse 75; Resp 16 S; Pulse Ox 100% on R/A; ha1 22:22 BP 132 / 75; Pulse 75; Resp 16 S; Pulse Ox 100% on R/A; ha1 21:29 Body Mass Index 34.33 (90.72 kg, 162.56 cm) rv MDM: 21:28 Patient medically screened. sp3 21:38 Data reviewed: vital signs, nurses notes, radiologic studies. ED course: Patient likely sp3 has Planter fasciitis given her symptoms. There is no evidence of foreign body on physical exam. We will obtain foot x-ray to assess for bony structures as well as potential foreign body. If work-up is negative, we will safely discharge patient home on p.o. NSAID diclofenac follow-up with PCP as needed.. 22:01 ED course: X-rays demonstrate no significant abnormality. Bone spur does exist on the sp3 calcaneus. Symptoms may be secondary to that. We will safely discharge patient home with NSAID prescription and follow-up to orthopedics.. 06/10 21:28 Order name: Foot Right 2 View XRAY sp3 Administered Medications: 22:08 Drug: Ketorolac IM 60 mg Route: IM; Site: left vastus lateralis; ha1 22:22 Follow up: Response: No adverse reaction; Pain is decreased ha1 Disposition Summary: 06/10/23 22:02 Discharge Ordered Location: Home sp3 Condition: Stable sp3 Diagnosis - Planter fasciitis, bone spur sp3 Followup: sp3 - With: Ted Bernard MD - When: Upon discharge from the Emergency Department - Reason: Further diagnostic work-up Discharge Instructions: - Discharge Summary Sheet sp3 - Heel Spur sp3 Forms: - Medication Reconciliation Form sp3 - Thank You Letter sp3 - Antibiotic Education sp3 - Prescription Opioid Use sp3 - Patient Portal Instructions sp3 - Work release form ha1 Prescriptions: - Diclofenac Sodium 75 mg Oral Tablet Sustained Release - take 1 tablet by ORAL route 2 times per day; 30 tablet; Refills: 0, Product sp3 Selection Permitted Signatures: Dispatcher [employer] Ye Hooks RN RN rv Jeanne Pearson MD MD sp3 Daniella Wayne RN RN ha1
--- NOTE | 2023-06-10 22:03 | ER ---
Nurse's Notes [facility] Name: Suraj Courtney Age: 32 yrs Sex: Female : 1990 Arrival Date: 06/10/2023 Time: 20:52 Bed 16 Private MD: Diagnosis: Planter fasciitis, bone spur Presentation: 06/10 21:29 Chief complaint: Patient states: heel pain x weeks. denies injury. no swelling. rv Coronavirus screen: Vaccine status:. Ebola Screen: Patient negative for fever greater than or equal to 101.5 degrees Fahrenheit, and additional compatible Ebola Virus Disease symptoms Patient denies exposure to infectious person. Patient denies travel to an Ebola-affected area in the 21 days before illness onset. 21:29 Method Of Arrival: Ambulatory rv 21:32 Initial Sepsis Screen: Does the patient meet any 2 criteria? No. Patient's initial rv sepsis screen is negative. Does the patient have a suspected source of infection? No. Patient's initial sepsis screen is negative. Risk Assessment: Do you want to hurt yourself or someone else? Patient reports no desire to harm self or others. Onset of symptoms is unknown. 21:32 Acuity: SHAW 4 rv Triage Assessment: 21:30 General: Appears comfortable, Behavior is calm, cooperative. Pain: Complains of pain in rv arch of right foot and heel of right foot. Neuro: Level of Consciousness is awake, alert, obeys commands, Oriented to person, place, time, situation. Cardiovascular: Capillary refill < 3 seconds. Respiratory: Airway is patent Respiratory effort is even, unlabored. Derm: Skin is intact. Musculoskeletal: Range of motion: intact in all extremities, Swelling absent. Historical: - Allergies: 21:30 Demerol; rv 21:30 Ibuprofen; rv 21:30 Iodinated Contrast Media - IV Dye; rv 21:30 ORANGES; rv - PMHx: 21:30 GALLSTONES; hyperemesis gravidarum; Pancreatitis; rv - PSHx: 21:30 Appendectomy; section; Cholecystectomy; tubal ligation; rv - Immunization history:: Adult Immunizations unknown. - Social history:: Smoking status: unknown. Screenin:32 [facility] ED Fall Risk Assessment (Adult) History of falling in the last 3 months, rv including since admission No falls in past 3 months (0 pts) Confusion or Disorientation No (0 pts) Intoxicated or Sedated No (0 pts) Impaired Gait No (0 pts) Mobility Assist Device Used No (0 pt) Altered Elimination No (0 pt) Score/Fall Risk Level 0 - 2 = Low Risk Oriented to surroundings, Maintained a safe environment, Educated pt \T\ family on fall prevention, incl call for assistance when getting out of bed, Assessed \T\ reinforced patient's understanding of fall precautions, Provided non-skid footwear, Hourly rounding (assess needs \T\ fall precautionary measures) done, Used ambulatory aids as needed (educated on \T\ assisted with), Used gait belt as appropriate. Abuse screen: Denies threats or abuse. Denies injuries from another. Nutritional screening: No deficits noted. Tuberculosis screening: No symptoms or risk factors identified. Assessment: 21:21 General: Appears comfortable, Behavior is calm, cooperative. Pain: Complains of pain in ha1 right foot Pain does not radiate. Pain currently is 10 out of 10 on a pain scale. Aggravated by exercise, increased activity. Neuro: Level of Consciousness is awake, alert, obeys commands, Oriented to person, place, time, situation. Cardiovascular: Patient's skin is warm and dry. Respiratory: Airway is patent Respiratory effort is even, unlabored, Respiratory pattern is regular, symmetrical. Derm: Skin is pink, warm \T\ dry. Musculoskeletal: Circulation, motion, and sensation intact. Reports pain in right foot. 22:21 Reassessment: Patient and/or family updated on plan of care and expected duration. Pain ha1 level reassessed. Patient is alert, oriented x 3, equal unlabored respirations, skin warm/dry/pink. Patient states feeling better. Patient states symptoms have improved. Vital Signs: 21:29 BP 143 / 88; Pulse 80; Resp 18; Temp 97.8; Pulse Ox 100% ; Weight 90.72 kg; Height 5 rv ft. 4 in. ; 21:30 BP 136 / 79; Pulse 75; Resp 16 S; Pulse Ox 100% on R/A; ha1 22:22 BP 132 / 75; Pulse 75; Resp 16 S; Pulse Ox 100% on R/A; ha1 21:29 Body Mass Index 34.33 (90.72 kg, 162.56 cm) rv ED Course: 20:53 Patient arrived in ED. [id number] 21:21 Jeanne Pearson MD is Attending Physician. sp3 21:29 Ye Mao, RN is Primary Nurse. rv 21:32 Triage completed. rv 21:32 Arm band placed on right wrist. rv 21:32 Patient has correct armband on for positive identification. rv 21:32 Provided Education on: xray. rv 21:32 No provider procedures requiring assistance completed. Patient did not have IV access rv during this emergency room visit. 21:56 Foot Right 2 View XRAY In Process Unspecified. EDMS 22:02 Ted Bernard MD is Referral Physician. sp3 Administered Medications: 22:08 Drug: Ketorolac IM 60 mg Route: IM; Site: left vastus lateralis; ha1 22:22 Follow up: Response: No adverse reaction; Pain is decreased ha1 Medication: 21:32 VIS not applicable for this client. rv Outcome: 22:02 Discharge ordered by . sp3 22:22 Discharged to home ambulatory, with family. ha1 22:22 Condition: stable 22:22 Discharge instructions given to patient, family, Instructed on discharge instructions, follow up and referral plans. medication usage, Demonstrated understanding of instructions, follow-up care, medications, Prescriptions given X 1. 22:23 Patient left the ED. ha1 Signatures: Dispatcher [employer] EDID Ye Mao, RN RN rv Jeanne Pearson MD MD sp3 Britney Miller [email or web address] Daniella Wayne RN RN ha1
--- NOTE | 2023-06-10 22:06 | RAD REPORT ---
EXAM DESCRIPTION: RAD - Foot Right 2 View - 06/10/2023 9:54 pm CLINICAL HISTORY: Heel pain FINDINGS: Limited 2 two-view series No fracture for dislocation 3 millimeter plantar calcaneal spur
[2023-06-10] MEDS ORDERED: KETOROLAC 30 MG/ML INJ ONE (22:13)
[2023-06-11 01:30] VITALS: TEMP 97.8; O2SAT 100
[2023-06-11 01:32] VITALS: BP 132/75
== END 2023-06-10 22:23 | disposition home or self-care (01) ==
LOC: ER 20:52
DX: M72.2 Plantar fascial fibromatosis (principal); M77.31 Calcaneal spur, right foot
CPT/HCPCS: 96372; 99284

== ENCOUNTER 2023-10-12 04:32 | Emergency (ER) | payer OTHER ==
--- OUTSIDE RECORDS SUMMARY | 2023-10-12 04:34 | XMS REPORT | Continuity of Care Document ---
:1990 Author Organization [facility] t Address [address] [facility] [address] [place] [address] Care Team Providers Name Role Phone Cornelius Thomas Primary Care Physician Unavailable Charles James MD Attending Clinician CHARLES JAMES Attending Clinician Unavailable Ember Dalal Attending Clinician EMBER FRANKS Attending Clinician Unavailable Doctor Unassigned, [place] Attending Clinician Unavailable CORNELIUS ZAVALETA Attending Clinician Unavailable Cornelius Thomas Attending Clinician DAVE BERMAN Attending Clinician Unavailable BOOM BOJORQUEZ Attending Clinician Unavailable JAMAAL EPPS Attending Clinician Unavailable CHRISTINA GOMEZ Attending Clinician Unavailable EDYTA FRANCIS Attending Clinician Unavailable EDYTA FRANCIS Attending Clinician Unavailable STEVE GRANADOS Attending Clinician Unavailable STEVE GRANADOS Attending Clinician Unavailable Laura Agosto MD Attending Clinician [phone] WESLEY GRANADOS Admitting Clinician Unavailable HODA STOKES Admitting Clinician Unavailable KP SHANE Admitting Clinician Unavailable CARMELINA PRADO Admitting Clinician Unavailable STEVE GRANADOS Admitting Clinician Unavailable EDYTA FRANCIS Admitting Clinician Unavailable JOHN MERCER Admitting Clinician Unavailable Payers Payer Name Policy Type Policy Number Effective Date Expiration Date Yong moser [facility] [id number] 2018 MEDICAID 00:00:00 Problems Condition Condition Condition [...] bilateral 6-16 ity of tubal tubal 00:00: [place] ligation ligation 00 Medica l Branch Overweight Overweight Disease Active U nivers (BMI (BMI 6-16 ity of 25.0-29.9) 25.0-29.9[place] S/P S/P Disease Active Univers 4-06 ity of section section 00:00: [place] [id number] Medical Branch Disease Active Univers contractio contractio 3-29 it y of ns ns 00:00: [place] Medical [facility] History of History of Disease Active 2019-11 U nivers 1-30 ity of delivery delivery 00:00: [place] [facility] History of History of Disease Active 2019-11 U nivers cholecyste cholecyste 1-30 it y of ctomy ctomy 00:00: [place] [address] Medical Branch Cholelithi Cholelithi Disease Active 2019- U nivers asis asis 1-18 ity of affecting affecting [place] estella in second in second Bran ch trimester, trimester, antepartum antepartum Gallstones Gallstones Disease Active 2019-11 Overview : Univers 1-17 Formattin ity of 00:00: g of this 00 note Medical might be Branch different from the original. Added automatic ally from request for surgery [id number] Nausea and Nausea and Disease Active 2019-11 U nivers vomiting vomiting 0-17 ity of in in 00:00: [place] 00 [facility] Branch 9 weeks 9 weeks Disease Active 2019-11 Univers gestation gestation 0-17 ity of of of 00:00: [place] 00 [facility] Branch Hyperemesi Hyperemesi Disease Active 2019-11 U nivers s s 0-07 ity of gravidarum gravidarum [place] before end before end 00 Me dical of 22 week of 22 week Br anch gestation gestation with with dehydratio dehydratio n n Obesity Obesity Disease Active 2019-11 Univers (BMI (BMI 0-07 ity of 30-39.9) 30-39.9) 00:00: [place] 00 Medical Branch Hyperemesi Hyperemesi Disease Active 2019-11 U nivers s s 0-07 ity of gravidarum gravidarum [place] Desires Desires Disease Active Univers 9-09 ity of (vaginal (vaginal 00:00: [place] 00 Medical after after Branch ) ) [...] ity of of of 00:00: [place] 00 [facility] Nausea and Nausea and Disease Active U nivers vomiting vomiting 8-22 ity of during during 00:00: [place] 00 [facility] BMI BMI Disease Active Univers 32.0-32.9, 32.0-32.9, 7-07 it y of adult adult 00:00: Medical Branch Maternal Maternal Disease Active Overview: Un anh varicella, varicella, 05-21 Formattin ity of non-immune non-immune 00:00: g of this [place] 00 note Medical might be Branch different from the original. Address pp Rubella Rubella Disease Active Overview: Univ ers non-immune non-immune 05-21 Formattin ity of status, status, 00:00: g of this [place] antepartum antepartum 00 note Me dical might be Branch different from the original. Address pp Supervisio Supervisio Disease Active U nivers n of high n of high 6-26 ity of risk risk 00:00: [place] 00 [facility] in third in third Branch trimester trimester Multiparit Multiparit Disease Active U nivers y y 6- ity of 00:00: Medical Branch Well woman Well woman Disease Active U nivers exam exam 7-11 ity of 00:00: Medical Branch Obesity in Obesity in Disease Active Overview : Univers 3-03 Formattin i ty of 00:00: g of this 00 note Medical might be Branch different from the original. 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 Utility Encounter Encounter Disease Active Uni vers [...] Type Date Date Clinician Morphine Propensi Active Hiv Univer s ty to 6-16 ity of adverse 00:00: [place] reaction 00 Medical s Branch MORPHINE DRUG Active Hiv Univers INGREDI 6-16 ity of 00:00: [place] 00 Medical Branch Sodium Propensi Active Nausea 2018-0 Univers Citrate ty to and/or 1-24 ity of (Bulk) adverse Vomiting 00:00: [place] reaction 00 Medical s Branch SODIUM DRUG Active N/V 2018-0 Univers CITRATE 1-24 ity of (BULK) 00:00: [place] 00 Medical Branch Ibuprofe Propensi Active Hives Univer s n ty to 5-22 ity of adverse 00:00: [place] reaction 00 Medical s Branch Kings Propensi Active Hives Univers ty to 5-22 ity of adverse 00:00: [place] reaction 00 Medical s Branch IBUPROFE DRUG Active Hives Univers N INGREDI - ity of 00:00: [place] 00 Medical Branch ORANGE DRUG Active Hives 2013- Univers -22 ity of 00:00: [place] 00 Medical [place] Social History Social Habit Start Date Stop Date Quantity Comments Source History SDOH University o f Alcohol Frequency [place] M edical Branch History SDOH University o f Alcohol Std Drinks [facility] History SDMO University o f Alcohol Binge [place] Medic al Branch ASSERTION [facility] Exposure to 2022-03-17 2022-03-27 Not sure [facility] SARS-CoV-2 (event) 00:00:00 14:04:00 [facility] Alcohol intake 2020-10-14 2020-10-14 0 /d University of 00:00:00 00:00:00 [facility] History of Social 2020-08-03 2020-08-03 Univers ity of function 00:00:00 00:00:00 [facility] Tobacco use and 2014-04-15 2014-04-15 Smokeless Universit y of exposure 00:00:00 00:00:00 tobacco non-user [facility] Alcohol Comment 2014-04-15 2014-04-15 socially Universit y of 00:00:00 00:00:00 [facility] Sex Assigned At [birth year] Universit y of 00:00:00 00:00:00 [facility] Smoking Status Start Date Stop Date Source Never smoked tobacco [facility] Medications Ordered Filled Start Stop Current Ordering Indication Dosage Frequency Signature Comments Components Source Medication Medication Date Date Medication? Clinician (SIG) Name Name No known No Univers medications 5-03 ity of 14:11: [place] [address] Medical Branch No known No Univers medications 5-03 ity of 14:11: [address] Branch docusate 2019-11- No [id number] 100mg Take 1 Univers 100 mg 1-20 -24 capsule by ity of capsule 00:00: 00:00 mouth [place] 00 :00 daily. May Medical substitute Branch for what is in stock and covered by patient plan acetaminoph 2019-11- No [id number] 2{tbl} Take 2 Univers en 325 mg 1-20 -24 tablets by ity of Cap 00:00: 00:00 mouth [place] 00 :00 every 6 Medical (six) Branch hours. doxylamine- 2019-11- No [id number] 2{tbl} Take 2 Univers pyridoxine, 0-13 04-06 tablets by i ty of vit B6, 00:00: 00:00 mouth at [place] ([facility]) 00 :00 bedtime. Medic al 10-10 mg Branch per tablet proCHLORper 2019-11- No [id number] 10mg Take 1 Univers azine 10 mg 0-08 03-11 tablet by it y of tablet 00:00: 00:00 mouth [place] 00 :00 every 6 Medical (six) Branch hours as needed (for nausea and vomiting unresponsi ve to doxylamine /pyridoxin e). 2020- No [id number] 1{packe Take 1 Univers vit 9-09 03-24 t} Packet by ity of 33-iron-fol 00:00: 00:00 mouth [place] ic-dha 00 :00 daily. Medical (SELECT-OB Branch + DHA) 29 mg iron-1 mg -250 mg combo pack Immunizations Ordered Filled Date Status Comments Source Immunization Name Immunization Name TDAP 2021-01-18 Completed [facility] 00:00:00 [facility] TDAP 2021-01-18 Completed [facility] 00:00:00 [facility] Varicella 2018-12-20 Completed [facility] (varivax)(chicken 00:00:00 [place] M edical pox) Branch Varicella 2018-12-20 Completed [facility] (varivax)(chicken 00:00:00 [place] M edical pox) Branch TDAP (ADACEL) 2018-12-11 Completed [place] of VACCINE 00:00:00 [facility] TDAP (ADACEL) 2018-12-11 Completed University of VACCINE 00:00:00 [facility] HPV9 2016-06-04 Completed University of 00:00:00 [facility] Branch HPV9 2016-06-04 Completed University of 00:00:00 [facility] TDAP 2015-04-06 Completed University of 00:00:00 [facility] TDAP 2015-04-06 Completed University of 00:00:00 [facility] Td 2004-11-25 Completed University of 00:00:00 [facility] Tetanus/Diptheria 2004-11-25 Completed Univers ity of 00:00:00 [facility] Branch Td 2004-11-25 Completed University of 00:00:00 [facility] Tetanus/Diptheria 2004-11-25 Completed Univers ity of 00:00:00 [facility] TD, NOS Unknown Completed [facility] TDAP Unknown Completed [facility] HPV9 Unknown Completed [facility] TDAP (ADACEL) Unknown Completed [facility] VACCINE [facility] Varicella Unknown Completed [facility] (varivax)(chicken [place] M edical pox) Branch Tetanus/Diptheria Unknown Completed [facility] Vital Signs Vital Name Observation Time Observation Value Comments Source Systolic blood 2022-03-27 19:29:00 122 mm[facility]Hg[facility] Diastolic blood 2022-03-27 19:29:00 80 mm[Hg] [facility] Heart rate 2022-03-27 19:29:00 105 /min [facility] Body height 2022-03-27 19:29:00 162.6 cm [facility] Body weight 2022-03-27 19:29:00 87.317 kg [facility] BMI 2022-03-27 19:29:00 33.04 kg/m2 [facility] Procedures This patient has no known procedures. Encounters Start End Encounter Admission Attending Care Care Encounter Source Date/Time Date/Time Type Type Clinicians Facility Department ID 2021-09-24 Outpatient P [facility] JOANN [id number] Univers 10:31:27 ity [facility] 2021-09-24 Outpatient P [facility] [id number] Univers 09:02:29 [facility] 2021-09-24 Emergency [facility] [id number] Univers 06:47:18 ity of [facility] 2021-09-24 Outpatient P [facility] JO[facility] [id number] Univers 06:38:20 ity of [facility] 2021-09-24 Outpatient P [facility] [id number] Univers 05:25:21 ity of [facility] 2021-09-24 Outpatient P [facility] [id number] Univers 04:28:40 ity of [facility] 2021-09-24 Emergency [facility] [id number] Univers 04:28:31 ity of [facility] 2021-09-24 Outpatient P [facility] [id number] Univers 01:10:45 ity of [facility] 2021-09-23 Emergency [facility] [id number] Univers 21:07:50 ity of [facility] 2021-09-23 Emergency [facility] [id number] Univers 07:29:02 ity of [facility] 2021-09-23 Outpatient P [facility] [id number] Univers 06:08:13 ity of [facility] 2021-09-22 Outpatient P [facility] [id number] Univers 23:31:44 ity of [facility] 2021-09-22 Emergency [facility] [id number] Univers 23:30:48 ity of [facility] 2021-09-22 Emergency [facility] [id number] Univers 22:58:12 ity of [facility] 2021-09-22 Outpatient U [facility] [id number] Univers 21:53:49 ity of [facility] 2021-09-22 Outpatient P [facility] [id number] Univers 21:28:28 ity of [facility] 2021-09-22 Emergency [facility] [id number] Univers 20:56:44 ity of [facility] 2023-02-07 2023-02-07 Outpatient [facility] [id number] José Luis 16:31:26 16:31:26 0316 F [place] 2022-03-28 2022-03-28 Telephone AMBAR James [id number] Univers 00:00:00 00:00:[address] [facility] [id number] it y of [place] [id number] Jose as MARY ANN?BLEA [phone] Ar tyree [address] OFFICE [facility] 2022-03-27 2022-03-27 Outpatient R JACOB [facility] [id number] Univers 14:30:00 23:59:00 CHARLES flores [facility] 2022-03-27 2022-03-27 [facility] [id number] Univers 14:30:00 15:00:00 Visit [facility] [id number] it y of [place] [id number] Jose as MARY ANN?BLEA [phone] Ar tyree [address] OFFICE [facility] 2022-03-27 2022-03-27 [facility] [id number] Univers 14:30:00 14:30:00 EMBER charles [facility] 2022-03-27 2022-03-27 Orders Doctor EDUARDO [id number] Univers 00:00:00 00:00:00 Only Unassigned, SRAVAN [id number] ity of [place] [facility] [id number] [place] [phone] [address] 2021-05-10 2021-05-10 Outpatient R WAQAR [facility] [id number] Univers 14:30:00 14:30:00 CORNELIUS flores o f [facility] 2021-03-22 2021-03-22 [facility] [id number] 13:46:41 14:24:31 Cornelius Aguilar MILEAGE CLERK [id number] Visit [facility] [id number] MATERNAL [phone] & CHILD [address] [place] [address] 2021-03-22 2021-03-22 Outpatient Lauren ZAVALETA [facility] [id number] Univers 14:00:00 14:00:00 CORNELIUS flores o f [facility] 2021-03-06 2021-03-06 Outpatient R ANTONELLA [facility] [id number] Univers 11:00:00 11:00:00 DAVE ity of [facility] 2021-03-01 2021-03-01 Outpatient R WAQAR [facility] [id number] Univers 12:45:00 12:45:00 LOISNDA ity o f [facility] 2021-02-19 2021-02-19 Outpatient P WAQAR [facility] JOANN [id number] Univers 15:41:00 15:41:00 LOISNDA ity o f [facility] 2021-02-15 2021-02-15 Outpatient R WAQAR [facility] [id number] Univers 14:30:00 14:30:00 LOISNDA ity o [facility] 2021-02-01 2021-02-01 Outpatient R WAQAR [facility] [id number] Univers 15:15:00 15:15:00 VENESSAA ity o [facility] 2021-01-18 2021-01-18 Outpatient R WAQAR [facility] [id number] Univers 13:45:00 13:45:00 LOISNDA ity o [facility] 2021-01-06 2021-01-06 Outpatient R WAQAR [facility] [id number] Univers 09:45:00 09:45:00 LOISNDA ity o [facility] 2020-12-23 2020-12-23 Outpatient R AKINSIPE, [facility] [id number] Univers 11:00:00 11:00:00 BOOM ity o [facility] 2020-12-20 2020-12-20 Outpatient R AKINSIPE, [facility] [id number] Univers 10:45:00 10:45:00 BOOM ity o [facility] 2020-12-20 2020-12-20 Outpatient R WAQAR, [facility] [id number] Univers 09:45:00 09:45:00 LOISNDA ity o [facility] 2020-12-13 2020-12-13 Outpatient P HELGA [facility] [id number] Univers 14:15:00 14:15:00 JAMAAL Hilliard [facility] 2020-11-29 2020-11-29 Outpatient R [facility] [id number] Univers 14:30:00 14:30:00 [facility] 2020-11-22 2020-11-22 Outpatient R MARYELLEN [facility] [id number] Univers 14:00:00 14:00:00 BOOM flores o f [facility] 2020-11-15 2020-11-15 Outpatient P JASON [facility] [id number] Univers 13:00:00 13:00:00 CHRISTINA [facility] 2020-11-08 2020-11-08 Outpatient P EDYTA FRANCIS [facility] [id number] Univers 15:00:00 15:00:00 PENNYEDYTA [facility] 2020-10-31 2020-10-31 Outpatient P DARWINSTEVE [facility] [id number] Univers 15:15:00 15:15:00 STEVE GRANADOS [facility] 2020-10-24 2020-10-24 Outpatient R AKINSMITH, [facility] [id number] Univers 13:45:00 13:45:00 BOOM flores o chelsie [facility] 2020-10-14 2020-10-14 Case [place] JAYCE [id number] Univers 00:00:00 00:00:00 Management SRAVAN [place] [id number] [facility] [id number] [place] [phone] [address] 2020-10-06 2020-10-06 Outpatient R WAQAR [facility] [id number] Univers 12:45:00 12:45:00 CORNELIUS flores o f [facility] 2020-09-08 2020-09-08 Outpatient R WAQAR [facility] [id number] Univers 10:45:00 10:45:00 VENESSAA laureny o f [facility] 2020-08-31 2020-08-31 Outpatient R WAQAR [facility] [id number] Univers 12:45:00 12:45:00 VENESSAA laureny o f [facility] 2020-08-24 2020-08-24 Outpatient P [facility] [id number] Univers 13:30:00 13:30:00 sandra [facility] 2020-08-03 2020-08-03 [facility] [id number] Univers 12:45:00 12:45:00 CORNELIUS holguin [facility] 2020-07-12 2020-07-12 [facility] [id number] Univers 14:15:00 14:15:00 CORNELIUS holguin [facility] 2020-03-21 2020-03-21 Outpatient [facility] [id number] [facility] 15:00:00 15:00:00 CORNELIUS hernandez [facility] Results This patient has no known results.
[2023-10-12] MEDS ORDERED: NA CHLORIDE 0.9% 2,000 ML ONE (05:38)
[2023-10-12] MEDS ORDERED: ONDANSETRON 4 MG/2 ML VIAL ONE (05:38)
[2023-10-12] MEDS ORDERED: FAMOTIDINE 20 MG/2 ML VIAL IV ONE (05:39)
[2023-10-12 05:44] LABS: Absolute Lymphocytes (CBC) 2.9 K/uL (0.7-4.9); Hematocrit 44.8 % (36.0-45.0); Lymphocytes % 30.7 % (15.3-44.8); MCV 90.8 fL (80-100); MPV 7.7 fL (7.6-11.3); Platelets 199 thou/uL (152-406); RBC Red Blood Cell Count 4.94 M/uL (3.86-4.86)
[2023-10-12 06:01] LABS: Albumin 3.9 g/dL (3.4-5.0); Bilirubin Total 0.4 mg/dL (0.2-1.0); Potassium 3.8 mEq/L (3.5-5.1); Protein, Total 7.9 g/dL (6.4-8.2)
[2023-10-12 06:03] LABS: Specific Gravity 1.014 (1.005-1.030)
[2023-10-12 06:04] LABS: Specific Gravity 1.014 (1.005-1.030); Urine Bacteria None Seen /HPF (<20); Urine Bilirubin NEGATIVE (Negative); Urine Blood Negative (Negative); Urine Clarity Clear (Clear); Urine Color Light-Yellow (Yellow); Urine Glucose NEGATIVE (Negative); Urine Protein NEGATIVE (Negative); Urine RBC <5 /HPF (None Seen); Urine Urobilinogen Normal (Normal); Urine pH 6.5 (5.0-7.0)
[2023-10-12] MEDS ORDERED: MORPHINE 4 MG/ML SYR ONE (06:54)
--- NOTE | 2023-10-12 06:57 | EDPHYS ---
Physician Documentation [facility] Name: Suraj Courtney Age: 32 yrs Sex: Female : 1990 Arrival Date: 10/12/2023 Time: 04:32 Bed 5 Private MD: ED Physician Zaid Braxton HPI: 10/12 05:06 This 32 yrs old Female presents to ER via Ambulatory with complaints of ec2 Abdominal Pain. 05:06 Patient arrives today with several days of left upper quadrant abdominal pain. States ec2 that the pain is intermittent, worse with p.o. intake, patient reports some associated nausea without vomiting or diarrhea. Patient reports previous abdominal surgeries including , appendectomy, cholecystectomy. Patient reports no fevers or chills, no cough and cold symptoms.. Historical: - Allergies: 04:55 Demerol; rv 04:55 Ibuprofen; rv 04:55 Iodinated Contrast Media - IV Dye; rv 04:55 ORANGES; rv - PMHx: 04:55 GALLSTONES; hyperemesis gravidarum; Pancreatitis; rv - PSHx: 04:55 Appendectomy; section; Cholecystectomy; tubal ligation; rv - Immunization history:: Adult Immunizations up to date. - Social history:: Smoking status: Patient denies any tobacco usage or history of. ROS: 05:06 Constitutional: as per hpi ec2 Exam: 05:06 Constitutional: GEN: NAD Head: atraumatic Eyes: EOMI Ears: External ears are ec2 normal. CV: regular rate LUNGS: no respiratory distress ABD: non-distended, soft, tender in the left upper quadrant, no guarding, not rigid, no CVA TTP. SKIN: no evidence of rashes MSK: no evidence of trauma NEURO: moves all extremities equally Vital Signs: 04:53 BP 145 / 97; Pulse 91; Resp 18; Temp 98; Pulse Ox 100% ; Weight 90.72 kg; Height 5 ft. rv 4 in. ; 07:12 BP 141 / 87; Pulse 84; Resp 16; Pulse Ox 99% ; ko1 04:53 Body Mass Index 34.33 (90.72 kg, 162.56 cm) rv MDM: 04:37 Patient medically screened. ec2 05:06 Data reviewed: vital signs. ED course: Patient arrives today for evaluation of left ec2 upper quadrant abdominal pain. Examination remarkable for well-appearing nontoxic individual with reassuring vital signs, will obtain lab work, urine studies, testing and treat the patient symptoms with medications. Currently considering process such as gastritis, pancreatitis, pyelonephritis. . 06:13 ED course: CBC is reassuring. Urine negative. Negative urine and reassuring ec2 metabolic profile. . 06:53 ED course: CT abdomen pelvis with prominent areas of lymphadenopathy with associated ec2 fat stranding with radiology with recommendation for repeat CT imaging. Ultimately patient is nontoxic-appearing and in no acute distress, can follow-up outpatient with her primary care doctor for further work-up and testing. Will discharge home. Return precautions given. . 10/12 05:05 Order name: CBC with Diff; Complete Time: 05:59 ec2 10/12 05:05 Order name: CMP; Complete Time: 06:13 ec2 10/12 05:05 Order name: Lipase; Complete Time: 06:13 ec2 10/12 05:07 Order name: UAM; Complete Time: 06:13 ec2 10/12 05:07 Order name: Test, Urine; Complete Time: 06:13 ec2 10/12 05:05 Order name: CT Abd/Pelvis - Without Contrast ec2 10/12 05:05 Order name: IV Saline Lock; Complete Time: 05:40 ec2 10/12 05:05 Order name: Labs collected and sent; Complete Time: 05:40 ec2 Administered Medications: 05:38 Drug: Famotidine IVP 20 mg IVP once; dilute with 10 mL 0.9% NaCl; give over 2 minutes la4 Route: IVP; Site: right antecubital; 05:39 Drug: NS 0.9% IV 1000 ml IV at 1 bolus Per protocol; 1000 mL bolus Route: IV; Rate: 1 la4 bolus; Site: right antecubital; 05:40 Drug: Ondansetron IVP 4 mg IVP once; over 2 minutes Route: IVP; Site: right antecubital;la4 06:47 Drug: morphine IVP or IV 2 mg IVP once over 4 mins Route: IVP; Infused Over: 4 mins; la4 Site: right antecubital; Disposition Summary: 10/12/23 06:56 Discharge Ordered Condition: Stable ec2 Diagnosis - Abdominal pain, Generalized ec2 Followup: ec2 - With: Private Physician - When: - Reason: Re-evaluation by your physician Discharge Instructions: - Discharge Summary Sheet ec2 Forms: - Medication Reconciliation Form ec2 - Thank You Letter ec2 - Antibiotic Education ec2 - Prescription Opioid Use ec2 - Patient Portal Instructions ec2 - Leadership Thank You Letter ec2 Prescriptions: - Zofran 4 mg Oral Tablet - take 1 tablet ORAL route every 12 hours As needed; 20 tablet; Refills: 0, ec2 Product Selection Permitted Signatures: Dispatcher [employer] Ye Hooks, RN RN Zaid Palencia MD MD ec2 Meg Verdugo RN RN la4
--- NOTE | 2023-10-12 06:57 | ER ---
Nurse's Notes [facility] Name: Suraj Courtney Age: 32 yrs Sex: Female : 1990 Arrival Date: 10/12/2023 Time: 04:32 Bed 5 Private MD: Diagnosis: Abdominal pain, Generalized Presentation: 10/12 04:53 Chief complaint: Patient states: LUQ ABD PAIN, SHARP, INTERMITTENT PAIN X 2 DAYS. rv DENIES VOMITING/DIARRHEA. Coronavirus screen: At this time, the client does not indicate any symptoms associated with coronavirus-19. Ebola Screen: No symptoms or risks identified at this time. Initial Sepsis Screen: Does the patient meet any 2 criteria? No. Patient's initial sepsis screen is negative. Does the patient have a suspected source of infection? No. Patient's initial sepsis screen is negative. Risk Assessment: Do you want to hurt yourself or someone else? Patient reports no desire to harm self or others. Onset of symptoms was October 12, 2023. 04:53 Method Of Arrival: Ambulatory rv 04:53 Acuity: SHAW 3 rv Triage Assessment: 04:55 General: Appears comfortable, Behavior is calm, cooperative. Pain: Complains of pain in rv left upper quadrant. Neuro: Level of Consciousness is awake, alert, obeys commands, Oriented to person, place, time, situation. Cardiovascular: Capillary refill < 3 seconds Patient's skin is warm and dry. Respiratory: Airway is patent Respiratory effort is even, unlabored. GI: Abdomen is round non-distended. : No signs and/or symptoms were reported regarding the genitourinary system. Derm: Skin is intact. Historical: - Allergies: 04:55 Demerol; rv 04:55 Ibuprofen; rv 04:55 Iodinated Contrast Media - IV Dye; rv 04:55 ORANGES; rv - PMHx: 04:55 GALLSTONES; hyperemesis gravidarum; Pancreatitis; rv - PSHx: 04:55 Appendectomy; section; Cholecystectomy; tubal ligation; rv - Immunization history:: Adult Immunizations up to date. - Social history:: Smoking status: Patient denies any tobacco usage or history of. Screenin:40 [facility] ED Fall Risk Assessment (Adult) History of falling in the last 3 months, la4 including since admission No falls in past 3 months (0 pts) Confusion or Disorientation No (0 pts) Intoxicated or Sedated No (0 pts) Impaired Gait No (0 pts) Mobility Assist Device Used No (0 pt) Altered Elimination No (0 pt) Score/Fall Risk Level 0 - 2 = Low Risk Oriented to surroundings, Provided non-skid footwear, Hourly rounding (assess needs \T\ fall precautionary measures) done. Abuse screen: Denies threats or abuse. Denies injuries from another. Nutritional screening: No deficits noted. Tuberculosis screening: No symptoms or risk factors identified. Assessment: 05:42 General: Appears in no apparent distress. Behavior is calm, cooperative. la4 05:53 Pain: Complains of pain in abdomen and left upper quadrant Pain does not radiate. Pain nw1 currently is 6 out of 10 on a pain scale. level that patient reports is acceptable is 4 out of 10 on a pain scale. Neuro: Level of Consciousness is awake, alert, obeys commands, Oriented to person, place, time, situation, Steel Fitter are equal bilaterally Moves all extremities. Full function Gait is steady, Speech is normal, Facial symmetry appears normal. Cardiovascular: No deficits noted. Denies chest pain. Respiratory: No deficits noted. Airway is patent Trachea midline Respiratory effort is even, unlabored, Respiratory pattern is regular, symmetrical. GI: Abdomen is obese, Bowel sounds present X 4 quads. Abdomen is tender to palpation in left upper quadrant Guarding noted X 4 quads. : No deficits noted. No signs and/or symptoms were reported regarding the genitourinary system. Derm: No deficits noted. No signs and/or symptoms reported regarding the dermatologic system. Musculoskeletal: No deficits noted. No signs and/or symptoms reported regarding the musculoskeletal system. Vital Signs: 04:53 BP 145 / 97; Pulse 91; Resp 18; Temp 98; Pulse Ox 100% ; Weight 90.72 kg; Height 5 ft. rv 4 in. ; 07:12 BP 141 / 87; Pulse 84; Resp 16; Pulse Ox 99% ; ko1 04:53 Body Mass Index 34.33 (90.72 kg, 162.56 cm) rv ED Course: 04:36 Patient arrived in ED. ag3 04:37 Zaid Braxton MD is Attending Physician. ec2 04:55 Triage completed. rv 04:55 Arm band placed on right wrist. rv 05:06 Meg Verdugo, RN is Primary Nurse. la4 05:39 CT Abd/Pelvis - Without Contrast Sent. la4 05:40 Patient has correct armband on for positive identification. Placed in gown. Bed in low la4 position. Call light in reach. Side rails up X2. Provided Education on: updated on plan of care and taken to CT. 05:40 Inserted saline lock: 18 gauge in right antecubital area, using aseptic technique. la4 Missed attempt(s): 20 gauge in right forearm. 05:40 No provider procedures requiring assistance completed. la4 05:54 CT Abd/Pelvis - Without Contrast In Process Unspecified. EDMS 07:12 IV discontinued, intact, bleeding controlled, No redness/swelling at site. Pressure ko1 dressing applied. Administered Medications: 05:38 Drug: Famotidine IVP 20 mg IVP once; dilute with 10 mL 0.9% NaCl; give over 2 minutes la4 Route: IVP; Site: right antecubital; 05:39 Drug: NS 0.9% IV 1000 ml IV at 1 bolus Per protocol; 1000 mL bolus Route: IV; Rate: 1 la4 bolus; Site: right antecubital; 05:40 Drug: Ondansetron IVP 4 mg IVP once; over 2 minutes Route: IVP; Site: right antecubital;la4 06:47 Drug: morphine IVP or IV 2 mg IVP once over 4 mins Route: IVP; Infused Over: 4 mins; la4 Site: right antecubital; Medication: 07:12 VIS not applicable for this client. ko1 Outcome: 06:56 Discharge ordered by . ec2 07:12 Discharged to home ambulatory, with family, ko1 07:12 Condition: stable 07:12 Discharge instructions given to patient, family, Instructed on discharge instructions, follow up and referral plans. medication usage, Demonstrated understanding of instructions, follow-up care, medications, Prescriptions given X 1, 07:14 Patient left the ED. ko1 Signatures: Dispatcher [employer] Ye Hooks RN RN rv Alejandrina Benítez3 Steff Allan RN RN ko1 Zaid Braxton MD MD ec2 Meg Verdugo RN RN la4 Sofia Cornejo RN RN nw1
[2023-10-12 07:21] VITALS: TEMP 98
[2023-10-12 07:22] VITALS: BP 141/87; O2SAT 99
--- NOTE | 2023-10-12 20:30 | RAD REPORT ---
EXAM DESCRIPTION: CT - Abdomen Pelvis Wo Contrast - 10/12/2023 6:56 am CLINICAL HISTORY: The patient is 32 years old and is Female; ABD PAIN NO CONTRAST Bed Name: 5 TECHNIQUE: Axial computed tomography images of the abdomen and pelvis without intravenous contrast. Sagittal and coronal reformatted images were created and reviewed. This CT exam was performed usi ng one or more of the following dose reduction techniques: automated exposure control, adjustment o f the mA and/or kV according to patient size, and/or use of iterative reconstruction technique. COMPARISON: 05/22/2022 CT abdomen and pelvis without contrast FINDINGS: LUNG BASES: Unremarkable. No mass. No consolidation. ABDOMEN: LIVER: Hepatic steatosis demonstrated along the falciform ligament. GALLBLADDER AND BILE DUCTS: Cholecystectomy. No ductal dilation. PANCREAS: Unremarkable. No ductal dilation. SPLEEN: Unremarkable. No splenomegaly. ADRENALS: Unremarkable. No mass. KIDNEYS AND URETERS: Unremarkable. No obstructing stones. No hydronephrosis. STOMACH AND BOWEL: Unremarkable. No obstruction. No mucosal thickening. PELVIS: APPENDIX: Presumed remote appendectomy with multiple surgical clips noted medial and inferior to th e cecal margin. No normal appendix is identified. BLADDER: Unremarkable. No stones. REPRODUCTIVE: Unremarkable as visualized. ABDOMEN and PELVIS: INTRAPERITONEAL SPACE: Unremarkable. No free air. No significant fluid collection. BONES/JOINTS: No acute fracture. No dislocation. SOFT TISSUES: Small fat-containing umbilical hernia. VASCULATURE: Unremarkable. No abdominal aortic aneurysm. LYMPH NODES: Multiple prominent central upper quadrant mesenteric lymph nodes with associated mild fat stranding. IMPRESSION: 1. Multiple prominent central upper quadrant mesenteric lymph nodes with associated mi ld fat stranding new from reference exam. Nonspecific in that several etiologies, including scleros ing mesenteritis, enteritis, or lymphoproliferative disease, could have this appearance. Comparison o f prior exams recommended to evaluate for chronicity/stability. Recommend clinical correlation and fo llow-up evaluation with repeat contrast-enhanced CT abdomen pelvis in 3 months recommended to evaluat e for resolution/stability. 2. No other acute abnormality within the abdomen or pelvis. 3. Cholecystectomy. Appendectomy. 4. Hepatic steatosis along the falciform ligament. Electronically signed by: Juan Marroquin MD 10/12/2023 06:44 AM PRINCIPAL QUALITY ENGINEER Due to temporary technical issues with the PACS/Fluency reporting system, reports are being signed by the in house radiologists without review as a courtesy to insure prompt reporting. The interpreting radiologist is fully responsible for the content of the report.
== END 2023-10-12 07:14 | disposition home or self-care (01) ==
LOC: ER 04:32
DX: R10.84 Generalized abdominal pain (principal); Z88.5 Allergy status to narcotic agent; Z88.6 Allergy status to analgesic agent; Z91.018 Allergy to other foods; Z91.041 Radiographic dye allergy status
CPT/HCPCS: 85025; 81001; 36415; 81025; 83690; 80053; 74176; 96375; 96374; 99284; J2405; J7030

== ENCOUNTER → 2023-12-12 | Emergency (ER) | payer OTHER ==
[~2023-12-12] MED LIST: DICYCLOMINE HCL 20 MG/2 ML AMP IM ONE; FENTANYL CITR 100 MCG/2 ML ONE; METOCLOPRAMIDE 10 MG/2mL INJ ONE; MORPHINE 4 MG/ML SYR ONE; NA CHLORIDE 0.9% 1,000 ML ONE; ONDANSETRON 4 MG/2 ML VIAL ONE
--- OUTSIDE RECORDS SUMMARY | 2023-12-12 18:33 | XMS REPORT | Continuity of Care Document ---
Author Name Unknown Address [address] [facility] [place] [address] [facility] Address [address] [facility] [facility] [place] [address] Care Team Providers Care [facility] Mill[facility] Name Role Phone Cornelius Thomas Primary Care Physician Un available Charles James MD Attending Clinician [phone] CHARLES JAMES Attending Clinician UnavailEmber Triplett Attending Clinician [phone] EMBER FRANKS Attending Clinician Unavailable Doctor Unassigned, Melvin Attending Clinician U CORNELIUS Burrell Attending Clinician Unavailab Cornelius Garcia Attending Clinician + [phone] DAVE BERMAN Attending Clinician Unavailable BOOM BOJORQUEZ Attending Clinician Unavail able JAMAAL EPPS Attending Clinician Unav CHRISTINA Freitas Attending Clinician Unavailable EDYTA FRANCIS Attending Clinician Unavailable EDYTA FRANCIS Attending Clinician Unavailable STEVE GRANADOS Attending Clinician Unavailable STEVE GRANADOS Attending Clinician Unavailable Laura Agosto MD Attending Clinician + WESLEY GRANADOS Admitting Clinician Unavailable HODA STOKES Admitting Clinician Unavailable KP SHANE Admitting Clinician Unavailable CARMELINA PRADO Admitting Clinician Unavailable STEVE GRANADOS Admitting Clinician Unavailable EDYTA FRANCIS Admitting Clinician Unavailable JOHN MERCER Admitting Clinician Unavailabl e Payers Payer Name Policy Type Policy Number Effective Date Expirati on Date Source [employer] MED[employer] [id number] 2018 00:00:00 Problems Condition Name Condition Details Condition Category Status Onset Date Resolution Date Last Treatment Date Treating Clinician Comments Source Encounter for surveillan ce of contracept saman, unspecifie d contracept haider Encounter for surveillan ce of contracept saman, unspecifie d contracept haider Disease Active 16 00:00: 00 [facility] History of bilateral tubal ligation History of bilateral tubal ligation Disease Active 05-10 00:00: 00 [facility] Overweight (BMI 25.0-29.9) Overweight (BMI 25.0-29.9) Disease Active 616 00:00: 00 [facility] S/P section S/P section Disease Active 4-06 00:00: 00 [facility] contractio ns contractio ns Disease Active 3-29 00:00: 00 [facility] History of delivery History of delivery Disease Active 2019-11 00:00: 00 [facility] History of cholecyste ctomy History of cholecyste ctomy Disease Active 2019-11 00:00: 00 [facility] Cholelithi asis affecting in second trimester, antepartum Cholelithi asis affecting in second trimester, antepartum Disease Active 2019-11 00:00: 00 [facility] Gallstones Gallstones Disease Active 2019-11 00:00: 00 Overview: Formattin g of this note might be different from the original. Added automatic ally from request for surgery [id number] [facility] Nausea and vomiting in Nausea and vomiting in Disease Active 2019-11 0-17 00:00: 00 [facility] 9 weeks gestation of 9 weeks gestation of Disease Active 2019-11 017 00:00: 00 [facility] Hyperemesi s gravidarum before end of 22 week gestation with dehydratio n Hyperemesi s gravidarum before end of 22 week gestation with dehydratio n Disease Active 2019-11 0-07 00:00: 00 [facility] Obesity (BMI 30-39.9) Obesity (BMI 30-39.9) Disease Active 2019-11 007 00:00: 00 [facility] Hyperemesi s gravidarum Hyperemesi s gravidarum Disease Active 2019-11 0 00:00: 00 [facility] Desires (vaginal after ) trial Desires (vaginal after ) trial Disease Active 9 00:00: 00 [facility] Special screening examinatio n for viral disease Special screening examinatio n for viral disease Disease Active 909 00:00: 00 [facility] care and examinatio n of lactating mother care and examinatio n of lactating mother Disease Active 2-14 00:00: 00 [facility] Previous section complicati ng Previous section complicati ng Disease Active 1-26 00:00: 00 [facility] Atypical squamous cells of undetermin ed significan ce (ASCUS) on Papanicola ou smear of cervix Atypical squamous cells of undetermin ed significan ce (ASCUS) on Papanicola ou smear of cervix Disease Active 1-24 00:00: 00 [facility] 33 weeks gestation of 33 weeks gestation of Disease Active 2017-11 2-29 00:00: 00 [facility] Nausea and vomiting during Nausea and vomiting during Disease Active 8-22 00:00: 00 [facility] BMI 32.0-32.9, adult BMI 32.0-32.9, adult Disease Active 7-07 00:00: 00 [facility] Maternal varicella, non-immune Maternal varicella, non-immune Disease Active 05-21 00:00: 00 Overview: Formattin g of this note might be different from the original. Address pp [facility] Rubella non-immune status, antepartum Rubella non-immune status, antepartum Disease Active 05-21 00:00: 00 Overview: Formattin g of this note might be different from the original. Address pp [facility] Supervisio n of high risk in third trimester Supervisio n of high risk in third trimester Disease Active 05-20 00:00: 00 [facility] Multiparit y Multiparit y Disease Active 05-20 00:00: 00 [facility] Well woman exam Well woman exam Disease Active 7-11 00:00: 00 [facility] Obesity in Obesity in Disease Active 3-03 00:00: 00 Overview: Formattin g of this note might be different from the original. ICD10 Diagnosis Term Clinical Trials Data Coordinator Utility [facility] Encounter for IUD removal and reinsertio n Encounter for IUD removal and reinsertio n Disease Active 2-24 00:00: 00 [facility] ASCUS on Pap smear ASCUS on Pap smear Disease Active 5-22 00:00: 00 [facility] Allergies, Adverse Reactions, Alerts Allergy Name Allergy Type Status Severity Reaction(s) Onset Date Inactive Date Treating Clinician Comments Source Morphine Propensi ty to adverse reaction s Active Hives 16 00:00: 00 [facility] MORPHINE DRUG INGREDI Active Hives 16 00:00: 00 [facility] Sodium Citrate (Bulk) Propensi ty to adverse reaction s Active Nausea and/or Vomiting 24 00:00: 00 [facility] SODIUM CITRATE (BULK) DRUG Active N/V 2019-0 1-24 00:00: 00 [facility] Ibuprofe n Propensi ty to adverse reaction s Active Hives 04-15 00:00: 00 [facility] Waldo Propensi ty to adverse reaction s Active Hives 04-15 00:00: 00 [facility] IBUPROFE N DRUG INGREDI Active Hives 04-15 00:00: 00 [facility] ORANGE DRUG Active Hives 04-15 00:00: 00 [facility] Social History Social Habit Start Date Stop Date Quantity Comments Source History SDOH Alcohol Frequency [facility] History SDOH Alcohol Std Drinks [facility] History SDOH Alcohol Binge [facility] ASSERTION [facility] to SARS-CoV-2 (event) 2022-03-17 00:00:00 2022-03-27 14:04:00 Not sure [facility] Alcohol intake 2020-10-14 00:00:00 2020-10-14 00:00:00 0 /d [facility] History of Social function 2020-08-03 00:00:00 2020-08-03 00:00:00 [facility] Tobacco use and exposure 2014-04-15 00:00:00 2014-04-15 00:00:00 Smokeless tobacco non-user [facility] Alcohol Comment 2014-04-15 00:00:00 2014-04-15 00:00:00 socially [facility] Sex Assigned At 1990 00:00:00 1990 00:00:00 [facility] Smoking Status Start Date Stop Date Source Never smoked tobacco [facility] Medications Ordered Medication Name Filled Medication Name Start Date Stop Date Current Medication? Ordering Clinician Indication Dosage Frequency Signature (SIG) Comments Components Source No known medications 03-27 14:11: 56 No [facility] No known medications 03-27 14:11: 56 No [facility] docusate 100 mg capsule 2019-11 00:00: 00 02-15 00:00 :00 No [id number] 100mg Take 1 capsule by mouth daily. May substitute for what is in stock and covered by patient plan [facility] acetaminoph en 325 mg Cap 2019-11 1-20 00:00: 00 02-15 00:00 :00 No [id number] 2{tbl} Take 2 tablets by mouth every 6 (six) hours. [facility] doxylamine- pyridoxine, vit B6, (DICLEGIS) 10-10 mg per tablet 2019-11 0-13 00:00: 00 02-28 00:00 :00 No [id number] 2{tbl} Take 2 tablets by mouth at bedtime. [facility] proCHLORper azine 10 mg tablet 2019-11 008 00:00: 00 02-02 00:00 :00 No [id number] 10mg Take 1 tablet by mouth every 6 (six) hours as needed (for nausea and vomiting unresponsi ve to doxylamine /pyridoxin e). [facility] vit 33-iron-fol ic-dha (SELECT-OB + DHA) 29 mg iron-1 mg -250 mg combo pack 9-09 00:00: 00 02-15 00:00 :00 No [id number] 1{packe t} Take 1 Packet by mouth daily. [facility] Immunizations Ordered Immunization Name Filled Immunization Name Date Status Comments Source TDAP 2021-01-18 00:00:00 Completed [facility] TDAP 2021-01-18 00:00:00 Completed [facility] Varicella (varivax)(chicken pox) 2018-12-20 00:00:00 Completed [facility] Varicella (varivax)(chicken pox) 2018-12-20 00:00:00 Completed [facility] TDAP (ADACEL) VACCINE 2018-12-11 00:00:00 Completed [facility] TDAP (ADACEL) VACCINE 2018-12-11 00:00:00 Completed [facility] HPV9 2016-06-04 00:00:00 Completed [facility] HPV9 2016-06-04 00:00:00 Completed [facility] TDAP 2015-04-06 00:00:00 Completed [facility] TDAP 2015-04-06 00:00:00 Completed [facility] Td 2004-11-25 00:00:00 Completed [facility] Tetanus/Diptheria 2004-11-25 00:00:00 Completed [facility] Td 2004-11-25 00:00:00 Completed [facility] Tetanus/Diptheria 2004-11-25 00:00:00 Completed [facility] TD, NOS Unknown Completed [facility] TDAP Unknown Completed [facility] HPV9 Unknown Completed [facility] TDAP (ADACEL) VACCINE Unknown Completed [facility] Varicella (varivax)(chicken pox) Unknown Completed [facility] Tetanus/Diptheria Unknown Completed [facility] Vital Signs Vital Name Observation Time Observation Value Comments S ource Systolic blood pressure 2022-03-27 19:29:00 122 mm[Hg] [facility] Diastolic blood pressure 2022-03-27 19:29:00 80 mm[Hg] [facility] Heart rate 2022-03-27 19:29:00 105 /min [facility] acute hospital Body height 2022-03-27 19:29:00 162.6 cm [facility] Body weight 2022-03-27 19:29:00 87.317 kg [facility] BMI 2022-03-27 19:29:00 33.04 kg/m2 [facility] Encounters Start Date/Time End Date/Time Encounter Type Admission Type Attending Clinicians Care Facility Care Department Encounter ID Source 2021-09-24 10:31:27 Outpatient P [facility] [id number] [facility] 2021-09-24 09:02:29 Outpatient P [facility] [id number] [facility] 2021-09-24 06:47:18 Emergency [facility] [id number] [facility] 2021-09-24 06:38:20 Outpatient [facility] [id number] [facility] 2021-09-24 05:25:21 Outpatient [facility] [id number] [facility] 2021-09-24 04:28:40 Outpatient [facility] [id number] [facility] 2021-09-24 04:28:31 Emergency [facility] [id number] [facility] 2021-09-24 01:10:45 Outpatient P [facility] [id number] [facility] 2021-09-23 21:07:50 Emergency [facility] [id number] [facility] 2021-09-23 07:29:02 [facility] [id number] 2021-09-23 06:08:13 Outpatient [facility] [id number] [facility] 2021-09-22 23:31:44 [facility] [id number] [facility] 2021-09-22 23:30:48 Emergency [facility] [id number] [facility] 2021-09-22 22:58:12 [facility] [id number] [facility] 2021-09-22 21:53:49 Outpatient U [facility] [id number] [facility] 2021-09-22 21:28:28 Outpatient [facility] [id number] [facility] 2021-09-22 20:56:44 [facility] [id number] [facility] 2023-02-07 16:31:26 2023-02-07 16:31:[address] [facility] [id number] José Luis Britton 2022-03-28 00:00:00 2022-03-28 00:00:00 Telephone Charles James [facility] [id number] [facility] 2022-03-27 14:30:00 2022-03-27 23:59:00 Outpatient R CHARLES JAMES [facility] [id number] [facility] 2022-03-27 14:30:00 2022-03-27 15:00:00 Office Visit Ember Franks [facility] [id number] [facility] 2022-03-27 14:30:00 2022-03-27 14:30:00 Outpatient EMBER EPPS [facility] [id number] [facility] 2022-03-27 00:00:00 2022-03-27 00:00:00 Orders Only Doctor Unassigned, Melvin [facility] [id number] [facility] 2021-05-10 14:30:00 2021-05-10 14:30:00 Outpatient CORNELIUS HERNANDEZ [facility] [id number] [facility] 2021-03-22 13:46:41 2021-03-22 14:24:31 Routine Visit Cornelius Zavaleta [facility] MANAGER [facility] OUT[facility] [id number] 2021-03-22 14:00:00 2021-03-22 14:00:00 Outpatient CORNELIUS HERNANDEZ [facility] [id number] [facility] 2021-03-06 11:00:00 2021-03-06 11:00:00 Outpatient DAVE MITCHELL [facility] [id number] [facility] 2021-03-01 12:45:00 2021-03-01 12:45:00 Outpatient CORNELIUS HERNANDEZ [facility] [id number] [facility] 2021-02-19 15:41:00 2021-02-19 15:41:00 Outpatient CORNELIUS ARAMBULA [facility] [id number] [facility] 2021-02-15 14:30:00 2021-02-15 14:30:00 Outpatient CORNELIUS HERNANDEZ [facility] [id number] [facility] 2021-02-01 15:15:00 2021-02-01 15:15:00 Outpatient CORNELIUS HERNANDEZ [facility] [id number] [facility] 2021-01-18 13:45:00 2021-01-18 13:45:00 Outpatient CORNELIUS HERNANDEZ [facility] [id number] [facility] 2021-01-06 09:45:00 2021-01-06 09:45:00 Outpatient CORNELIUS HERNANDEZ [facility] [id number] [facility] 2020-12-23 11:00:00 2020-12-23 11:00:00 Outpatient R BOOM BOJORQUEZ [facility] [id number] [facility] 2020-12-20 10:45:00 2020-12-20 10:45:00 Outpatient R BOOM BOJORQUEZ [facility] [id number] [facility] 2020-12-20 09:45:00 2020-12-20 09:45:00 Outpatient R CORNELIUS ZAVALETA [facility] [id number] [facility] 2020-12-13 14:15:00 2020-12-13 14:15:00 Outpatient P JAMAAL SHELLEY [facility] [id number] [facility] 2020-11-29 14:30:00 2020-11-29 14:30:00 Outpatient R [facility] [id number] [facility] 2020-11-22 14:00:00 2020-11-22 14:00:00 Outpatient R BOOM BOJORQUEZ [facility] [id number] [facility] 2020-11-15 13:00:00 2020-11-15 13:00:00 Outpatient P CHRISTINA GOMEZ [facility] [id number] [facility] 2020-11-08 15:00:00 2020-11-08 15:00:00 Outpatient P EDYTA FRANCIS SANGEETA [facility] [id number] [facility] 2020-10-31 15:15:00 2020-10-31 15:15:00 Outpatient P STEVE GRANADOS SHANNON [facility] [id number] [facility] 2020-10-24 13:45:00 2020-10-24 13:45:00 Outpatient R BRITTMARITZABOOM [facility] [id number] [facility] 2020-10-14 00:00:00 2020-10-14 00:00:00 Case Management [place] Laura Mcdermott [facility] [id number] [facility] 2020-10-06 12:45:00 2020-10-06 12:45:00 Outpatient R CORNELIUS ZAVALETA [facility] [id number] [facility] 2020-09-08 10:45:00 2020-09-08 10:45:00 Outpatient R CONRELIUS ZAVALETA [facility] [id number] [facility] 2020-08-31 12:45:00 2020-08-31 12:45:00 Outpatient R CORNELIUS ZAVALETA [facility] [id number] [facility] 2020-08-24 13:30:00 2020-08-24 13:30:00 Outpatient P [facility] [id number] [facility] 2020-08-03 12:45:00 2020-08-03 12:45:00 Outpatient R CORNELIUS ZAVALETA [facility] [id number] [facility] 2020-07-12 14:15:00 2020-07-12 14:15:00 Outpatient R CORNELIUS ZAVALETA [facility] [id number] [facility] 2020-03-21 15:00:00 2020-03-21 15:00:00 Outpatient CORNELIUS HERNANDEZ [facility] [id number] [facility]
[2023-12-12 19:58] LABS: Specific Gravity 1.006 (1.005-1.030); Urine Bilirubin NEGATIVE (Negative); Urine Blood Negative (Negative); Urine Clarity Clear (Clear); Urine Color Colorless (Yellow); Urine Glucose NEGATIVE (Negative); Urine Protein NEGATIVE (Negative); Urine Urobilinogen Normal (Normal)
[2023-12-12 20:01] LABS: Absolute Lymphocytes (CBC) 3.2 K/uL (0.7-4.9); Hematocrit 44.7 % (36.0-45.0); Lymphocytes % 39.4 % (15.3-44.8); MCV 90.4 fL (80-100); MPV 7.6 fL (7.6-11.3); Platelets 240 thou/uL (152-406); RBC Red Blood Cell Count 4.95 M/uL (3.86-4.86)
[2023-12-12 20:14] LABS: Albumin 3.9 g/dL (3.4-5.0); Bilirubin Total 0.5 mg/dL (0.2-1.0); Potassium 4.1 mEq/L (3.5-5.1); Protein, Total 7.7 g/dL (6.4-8.2)
--- NOTE | 2023-12-12 21:56 | RAD REPORT ---
EXAM DESCRIPTION: CT - Abdomen Pelvis W Contrast - 12/12/2023 9:10 pm CLINICAL HISTORY: Abdominal pain COMPARISON: September 2023 TECHNIQUE: Computed axial tomography of the abdomen pelvis was obtained. 100 cc Isovue-300 was admin istered intravenously. Oral contrast was not requested which limits evaluation of bowel and appendix All CT scans are performed using dose optimization technique as appropriate and may include automated exposure control or mA/KV adjustment according to patient size. FINDINGS: Fatty infiltration left lobe liver. Spleen, pancreas, adrenal and kidneys appear unremarkable. There is no evidence of diverticulitis. Cholecystectomy. No adnexal mass Small umbilical hernia 1 IMPRESSION: No acute abnormality is displayed.
--- NOTE | 2023-12-12 22:44 | EDPHYS ---
Physician Documentation [facility] Name: Suraj Courtney Age: 33 yrs Sex: Female : 1990 Arrival Date: 12/12/2023 Time: 18:30 Bed 17 Private MD: ED Physician June Celis HPI: 12/12 19:20 This 33 yrs old Female presents to ER via Ambulatory with complaints of Abdominal Pain. cp 19:20 The patient presents with abdominal pain mid and upper abdomen. cp 19:20 Onset: The symptoms/episode began/occurred 1 week(s) ago. cp 19:20 Associated signs and symptoms: Pertinent positives: nausea, abdominal distension, cp weight gain, Pertinent negatives: chest pain, constipation, diarrhea, fever, vomiting. The symptoms are described as waxing/waning. Historical: - Allergies: 18:49 Demerol; ll1 18:49 Ibuprofen; ll1 18:49 Iodinated Contrast Media - IV Dye; ll1 18:49 ORANGES; ll1 - PMHx: 18:49 GALLSTONES; hyperemesis gravidarum; Pancreatitis; ll1 - PSHx: 18:49 Appendectomy; section; Cholecystectomy; tubal ligation; ll1 - Immunization history:: Adult Immunizations up to date. - Social history:: Smoking status: Patient denies any tobacco usage or history of. ROS: 19:25 Constitutional: Negative for body aches, chills, fever, poor PO intake, weight loss, cp 19:25 Eyes: Negative for injury, pain, redness, and discharge, cp 19:25 ENT: Negative for drainage from ear(s), ear pain, sore throat, difficulty swallowing, difficulty handling secretions, 19:25 Cardiovascular: Negative for chest pain, edema, palpitations, 19:25 Respiratory: Negative for cough, shortness of breath, wheezing, 19:25 Abdomen/GI: Positive for abdominal pain, nausea, abdominal distension, Negative for vomiting, diarrhea, constipation, anorexia, 19:25 Back: Negative for radiated pain, 19:25 : Negative for urinary symptoms, 19:25 Neuro: Negative for altered mental status, headache, syncope, weakness, 19:25 All other systems are negative, Exam: 19:30 Constitutional: The patient appears in no acute distress, alert, awake, non-toxic, well cp developed, well nourished, 19:30 Head/Face: Normocephalic, atraumatic. cp 19:30 Eyes: Periorbital structures: appear normal, Conjunctiva: normal, no exudate, no injection, Sclera: no appreciated abnormality, Lids and lashes: appear normal, bilaterally, 19:30 ENT: External ear(s): are unremarkable, Nose: is normal, Mouth: Lips: moist, Oral mucosa: pink and intact, moist, Posterior pharynx: is normal, airway is patent, no erythema, no exudate, 19:30 Chest/axilla: Inspection: normal, 19:30 Cardiovascular: Rate: normal, Rhythm: regular, 19:30 Respiratory: the patient does not display signs of respiratory distress, Respirations: normal, no use of accessory muscles, no retractions, labored breathing, is not present, Breath sounds: are clear throughout, no decreased breath sounds, no stridor, no wheezing, 19:30 Abdomen/GI: Inspection: obese Bowel sounds: active, all quadrants, Palpation: soft, in all quadrants, moderate abdominal tenderness, in the umbilical area, right upper quadrant and left upper quadrant, rebound tenderness, is not appreciated, involuntary guarding, is not appreciated, 19:30 Back: pain, is absent, ROM is normal, 19:30 Skin: no rash present. Vital Signs: 18:49 BP 139 / 98; Pulse 80; Resp 17; Temp 98.1; Pulse Ox 99% ; Weight 88.45 kg; Height 5 ft. ll1 4 in. ; Pain 7/10; 21:42 BP 143 / 81; Pulse 66; Resp 16 S; Pulse Ox 99% on R/A; jw7 22:39 BP 127 / 72; Pulse 69; Resp 16 S; Pulse Ox 98% on R/A; jw7 23:08 BP 138 / 75; Pulse 61; Resp 16 S; Pulse Ox 97% on R/A; jw7 18:49 Body Mass Index 33.47 (88.45 kg, 162.56 cm) ll1 18:49 Pain Scale: Adult ll1 MDM: 18:47 Patient medically screened. cp 22:42 Data reviewed: vital signs, nurses notes, lab test result(s), radiologic studies, CT cp scan, and as a result, I will discharge patient. 22:42 Differential diagnosis: non-specific abd pain, pancreatitis, Peptic Ulcer Disease, cp Perf. Duodenal Ulcer, Perf. Gastric Ulcer, Pyelonephritis, Ureterolithiasis, urinary tract infection. I considered the following discharge prescriptions or medication management in the emergency department Medications were administered in the Emergency Department. See MAR. Counseling: I had a detailed discussion with the patient and/or guardian regarding the historical points, exam findings, and any diagnostic results supporting the discharge/admit diagnosis, lab results, radiology results, the need for outpatient follow up, a general surgeon, to return to the emergency department if symptoms worsen or persist or if there are any questions or concerns that arise at home. Special discussion: Based on the patient's Hx, exam, and Dx evaluation, there is no indication for emergent surgery or inpatient Tx. It is understood by the patient/guardian that if the Sx's persist or worsen they need to return immediately for re-evaluation. 12/12 19:09 Order name: CBC with Diff; Complete Time: 20:37 cp 12/12 22:08 Interpretation: Normal except: RBC 4.95; HGB 15.6. cp 12/12 19:09 Order name: CMP; Complete Time: 20:37 cp 12/12 22:08 Interpretation: Normal except: BUN 6. cp 12/12 19:09 Order name: Lipase; Complete Time: 20:37 cp 12/12 19:09 Order name: Test, Urine; Complete Time: 20:37 cp 12/12 19:09 Order name: Urinalysis w/ reflexes; Complete Time: 20:37 cp 12/12 20:38 Order name: CT Abd/Pelvis - IV Contrast Only; Complete Time: 22:03 cp 12/12 22:03 Interpretation: Report reviewed. cp 12/12 19:09 Order name: IV Saline Lock; Complete Time: 19:46 cp 12/12 19: Order name: Labs collected and sent; Complete Time: 19:46 cp Administered Medications: 19:46 Drug: NS 0.9% IV 1000 ml IV at 1 bolus Per protocol; 1000 mL bolus Route: IV; Rate: 1 lg3 bolus; Site: right antecubital; 23:07 Follow up: Response: No adverse reaction; IV Status: Completed infusion; IV Intake: jw7 1000ml 21:26 Drug: Dicyclomine IM 20 mg IM once Route: IM; Site: right ventrogluteal; jw7 23:07 Follow up: Response: No adverse reaction; Marked relief of symptoms jw7 21:26 Not Given (Patient Refused): [id number] mg IVP once; over 1 to 2 minutes jw7 22:01 Drug: Ondansetron IVP 4 mg IVP once; over 2 minutes Route: IVP; Site: right antecubital;jw7 23:07 Follow up: Response: No adverse reaction; Marked relief of symptoms jw7 22:12 CANCELLED (Physician Discretion): morphineor iv 4 mg IVP once over 4 mins cp 22:18 Drug: fentaNYL (PF) IVP 25 mcg IVP once Route: IVP; Site: right antecubital; jw7 23:07 Follow up: Response: No adverse reaction; Marked relief of symptoms jw7 23:07 Drug: morphine IM 4 mg IM once Route: IM; Site: right deltoid; jw7 23:07 Follow up: Response: No adverse reaction jw7 Disposition Summary: 12/12/23 22:43 Discharge Ordered Notes: Location: Home cp Problem: new cp Symptoms: have improved cp Condition: Stable cp Diagnosis - Umbilical hernia without obstruction or gangrene cp - Abdominal pain, unspecified cp Followup: cp - With: Erich Keyes MD - When: 2 - 3 days - Reason: umbilical hernia Discharge Instructions: - Discharge Summary Sheet cp - Abdominal Pain, Adult cp - Hernia, Adult cp - Nausea, Adult cp Forms: - Medication Reconciliation Form cp - Thank You Letter cp - Antibiotic Education cp - Prescription Opioid Use cp - Patient Portal Instructions cp - Leadership Thank You Letter cp Prescriptions: - Zofran 4 mg Oral Tablet - take 1 tablet ORAL route every 12 hours As needed; 20 tablet; Refills: 0, cp Product Selection Permitted Signatures: Dispatcher [employer] EDMS Pancho Pryor PA PA cp Sera Win RN RN lg3 Bill Hudson RN RN ll1 Susan Pineda RN RN jw7 Corrections: (The following items were deleted from the chart) 22:12 22:09 morphine IVP or IV 4 mg IVP once over 4 mins ordered. cp cp
--- NOTE | 2023-12-12 22:44 | ER ---
Nurse's Notes [facility] Name: Suraj Courtney Age: 33 yrs Sex: Female : 1990 Arrival Date: 12/12/2023 Time: 18:30 Bed 17 Private MD: Diagnosis: Umbilical hernia without obstruction or gangrene;Abdominal pain, unspecified Presentation: 12/12 18:49 Chief complaint: Patient states: Upper abdominal pain for 1 week with bloating and ll1 nausea. No fever. Coronavirus screen: Client denies travel out of the [place] in the last 14 days. At this time, the client does not indicate any symptoms associated with coronavirus-19. Ebola Screen: Patient denies travel to an Ebola-affected area in the 21 days before illness onset. Initial Sepsis Screen: Does the patient meet any 2 criteria? No. Patient's initial sepsis screen is negative. Does the patient have a suspected source of infection? Yes: Acute abdominal pain. Risk Assessment: Do you want to hurt yourself or someone else? Patient reports no desire to harm self or others. Onset of symptoms was December 05, 2023. 18:49 Method Of Arrival: Ambulatory ll1 18:49 Acuity: SHAW 3 ll1 Historical: - Allergies: 18:49 Demerol; ll1 18:49 Ibuprofen; ll1 18:49 Iodinated Contrast Media - IV Dye; ll1 18:49 ORANGES; ll1 - PMHx: 18:49 GALLSTONES; hyperemesis gravidarum; Pancreatitis; ll1 - PSHx: 18:49 Appendectomy; section; Cholecystectomy; tubal ligation; ll1 - Immunization history:: Adult Immunizations up to date. - Social history:: Smoking status: Patient denies any tobacco usage or history of. Screenin:54 [facility] ED Fall Risk Assessment (Adult) History of falling in the last 3 months, pf1 including since admission No falls in past 3 months (0 pts) Confusion or Disorientation No (0 pts) Intoxicated or Sedated No (0 pts) Impaired Gait No (0 pts) Mobility Assist Device Used No (0 pt) Altered Elimination No (0 pt) Score/Fall Risk Level 0 - 2 = Low Risk Oriented to surroundings, Maintained a safe environment, Educated pt \T\ family on fall prevention, incl call for assistance when getting out of bed, Assessed \T\ reinforced patient's understanding of fall precautions, Provided non-skid footwear, Hourly rounding (assess needs \T\ fall precautionary measures) done, Used ambulatory aids as needed (educated on \T\ assisted with), Used gait belt as appropriate. Abuse screen: Denies threats or abuse. Nutritional screening: No deficits noted. Tuberculosis screening: No symptoms or risk factors identified. Assessment: 19:54 General: Appears in no apparent distress. uncomfortable, well groomed, well developed, pf1 Behavior is calm, cooperative, appropriate for age, quiet. Pain: Complains of pain in abdomen Pain currently is 7 out of 10 on a pain scale. Pain began 1 week, worse in the past 2 days. Neuro: No deficits noted. Level of Consciousness is awake, alert, obeys commands, Oriented to person, place, time, situation. Cardiovascular: No deficits noted. Capillary refill < 3 seconds Patient's skin is warm and dry. Respiratory: No deficits noted. Airway is patent Respiratory effort is even, unlabored, Respiratory pattern is regular, symmetrical. GI: Abdomen is round distended, Bowel sounds present X 4 quads. Abd is soft Reports upper abdominal pain, bloating, nausea. : No deficits noted. No signs and/or symptoms were reported regarding the genitourinary system. EENT: No deficits noted. No signs and/or symptoms were reported regarding the EENT system. Derm: No deficits noted. No signs and/or symptoms reported regarding the dermatologic system. 21:15 Reassessment: Patient appears in no apparent distress at this time. No changes from jw7 previously documented assessment. Patient and/or family updated on plan of care and expected duration. Pain level reassessed. Patient is alert, oriented x 3, equal unlabored respirations, skin warm/dry/pink. 22:38 Reassessment: Patient appears in no apparent distress at this time. Patient and/or jw7 family updated on plan of care and expected duration. Pain level reassessed. Patient is alert, oriented x 3, equal unlabored respirations, skin warm/dry/pink. 23:08 Reassessment: Patient appears in no apparent distress at this time. Patient and/or jw7 family updated on plan of care and expected duration. Pain level reassessed. Patient is alert, oriented x 3, equal unlabored respirations, skin warm/dry/pink. Patient states feeling better. Patient states symptoms have improved. Vital Signs: 18:49 BP 139 / 98; Pulse 80; Resp 17; Temp 98.1; Pulse Ox 99% ; Weight 88.45 kg; Height 5 ft. ll1 4 in. ; Pain 7/10; 21:42 BP 143 / 81; Pulse 66; Resp 16 S; Pulse Ox 99% on R/A; jw7 22:39 BP 127 / 72; Pulse 69; Resp 16 S; Pulse Ox 98% on R/A; jw7 23:08 BP 138 / 75; Pulse 61; Resp 16 S; Pulse Ox 97% on R/A; jw7 18:49 Body Mass Index 33.47 (88.45 kg, 162.56 cm) ll1 18:49 Pain Scale: Adult ll1 ED Course: 18:32 Patient arrived in ED. rg4 18:47 Pancho Pryor PA is PHCP. cp 18:47 June Celis is Attending Physician. cp 18:49 Arm band placed on. ll1 18:50 Triage completed. ll1 19:45 Inserted saline lock: 20 gauge in right antecubital area, using aseptic technique. lg3 Blood collected. 19:46 CBC with Diff Sent. lg3 19:46 CMP Sent. lg3 19:46 Lipase Sent. lg3 19:46 Test, Urine Sent. lg3 19:46 Urinalysis w/ reflexes Sent. lg3 20:57 Susan Pineda, RN is Primary Nurse. jw7 21:12 CT Abd/Pelvis - IV Contrast Only In Process Unspecified. EDMS 21:43 Patient has correct armband on for positive identification. Bed in low position. Call jw7 light in reach. Side rails up X2. 21:43 No provider procedures requiring assistance completed. jw7 22:42 Erich Keyes MD is Referral Physician. cp 23:09 Provided Education on: discharge instructions and need for follow-up care. jw7 23:09 IV discontinued, intact, bleeding controlled, No redness/swelling at site. Pressure jw7 dressing applied. Administered Medications: 19:46 Drug: NS 0.9% IV 1000 ml IV at 1 bolus Per protocol; 1000 mL bolus Route: IV; Rate: 1 lg3 bolus; Site: right antecubital; 23:07 Follow up: Response: No adverse reaction; IV Status: Completed infusion; IV Intake: jw7 1000ml 21:26 Drug: Dicyclomine IM 20 mg IM once Route: IM; Site: right ventrogluteal; jw7 23:07 Follow up: Response: No adverse reaction; Marked relief of symptoms jw7 21:26 Not Given (Patient Refused): [id number] mg IVP once; over 1 to 2 minutes jw7 22:01 Drug: Ondansetron IVP 4 mg IVP once; over 2 minutes Route: IVP; Site: right antecubital;jw7 23:07 Follow up: Response: No adverse reaction; Marked relief of symptoms jw7 22:12 CANCELLED (Physician Discretion): morphineor iv 4 mg IVP once over 4 mins cp 22:18 Drug: fentaNYL (PF) IVP 25 mcg IVP once Route: IVP; Site: right antecubital; jw7 23:07 Follow up: Response: No adverse reaction; Marked relief of symptoms jw7 23:07 Drug: morphine IM 4 mg IM once Route: IM; Site: right deltoid; jw7 23:07 Follow up: Response: No adverse reaction jw7 Medication: 21:43 VIS not applicable for this client. jw7 Intake: 23:07 IV: 1000ml; Total: 1000ml. jw7 Outcome: 22:43 Discharge ordered by MD. cp 23:08 Discharged to home ambulatory, jw7 23:08 Condition: stable 23:08 Discharge instructions given to patient, Instructed on discharge instructions, follow up and referral plans. medication usage, Demonstrated understanding of instructions, follow-up care, medications, Prescriptions given X 1, 23:09 Patient left the ED. jw7 Signatures: Dispatcher [employer] EDMS Pancho Pryor PA PA cp Garcia, Rubi rg4 Sera Win RN RN lg3 Bill Hudson RN RN ll1 Susan Pineda RN RN jw7 Kim Ziegler RN RN pf1
[2023-12-13 02:47] VITALS: TEMP 98.1
[2023-12-13 03:03] VITALS: BP 138/75; O2SAT 97
== END ==
LOC: ER 18:30
DX: K42.9 Umbilical hernia without obstruction or gangrene (principal); R10.9 Unspecified abdominal pain
CPT/HCPCS: 96361; 85025; 36415; 81025; 81003; 83690; 80053; 74177; 96375; 96372; 96374; 99284; Q9967; J0500; J3010; J2405; J7030; J2765

== ENCOUNTER → 2023-12-13 | Emergency (ER) | payer OTHER ==
[~2023-12-13] MED LIST changes: -DICYCLOMINE HCL 20 MG/2 ML AMP IM ONE; -FENTANYL CITR 100 MCG/2 ML ONE; +MAGNES/ALUMIN/SIMET 30ML UCUP ONE; -METOCLOPRAMIDE 10 MG/2mL INJ ONE; -MORPHINE 4 MG/ML SYR ONE; -NA CHLORIDE 0.9% 1,000 ML ONE; +ONDANSETRON 4 MG (ODT) TAB ONE; -ONDANSETRON 4 MG/2 ML VIAL ONE
--- OUTSIDE RECORDS SUMMARY | 2023-12-13 01:30 | XMS REPORT | Continuity of Care Document ---
Author Name Unknown Address [address] [facility] [place] [address] [facility] Address [address] [facility] [place] [address] Care Team Providers Care Director Telehealth Name Role Phone Cornelius Thomas Primary Care Physician Un available Charles James MD Attending Clinician [phone] CHARLES JAMES Attending Clinician UnavailEmber Triplett Attending Clinician [phone] EMBER FRANKS Attending Clinician Unavailable Doctor Unassigned, [place] Attending Clinician U CORNELIUS Burrell Attending Clinician Unavailab Cornelius Garcia Attending Clinician [phone] DAVE BERMAN Attending Clinician Unavailable BOOM BOJORQUEZ [...] Expirati on Date Source [facility] MED[employer] [id number] 2018 00:00:00 Problems Condition Name Condition Details Condition Category Status Onset Date Resolution Date Last Treatment Date Treating Clinician Comments Source Encounter for surveillan ce of contracept saman, unspecifie d contracept haider Encounter for surveillan ce of contracept saman, unspecifie d contracept haider Disease Active 16 00:00: 00 [facility] History of bilateral tubal ligation History of bilateral tubal ligation Disease Active 05-10 00:00: 00 [facility] Overweight (BMI 25.0-29.9) Overweight (BMI 25.0-29.9) Disease Active 616 00:00: 00 [facility] S/P section S/P section Disease Active 4-06 00:00: 00 [facility] contractio ns contractio ns Disease Active 3-29 00:00: 00 [facility] History of delivery History of delivery Disease Active 2019-11 00:00: 00 [facility] History of cholecyste ctomy History of cholecyste ctomy Disease Active 2019-11 00:00: 00 [facility] Cholelithi asis affecting in second trimester, antepartum Cholelithi asis affecting in second trimester, antepartum Disease Active 2019-11 00:00: 00 [facility] Gallstones Gallstones Disease Active 2019-11 00:00: 00 Overview: Formattin g of this note might be different from the original. Added automatic ally from request for surgery [id number] [facility] Nausea and vomiting in Nausea and vomiting in Disease Active 2019-11 0-17 00:00: 00 [facility] 9 weeks gestation of 9 weeks gestation of Disease Active 2019-11 017 00:00: 00 [facility] Hyperemesi s gravidarum before end of 22 week gestation with dehydratio n Hyperemesi s gravidarum before end of 22 week gestation with dehydratio n Disease Active 2019-11 0-07 00:00: 00 [facility] Obesity (BMI 30-39.9) Obesity (BMI 30-39.9) Disease Active 2019-11 007 00:00: 00 [facility] Hyperemesi s gravidarum Hyperemesi s gravidarum Disease Active 2019-11 0 00:00: 00 [facility] Desires (vaginal after ) trial Desires (vaginal after ) trial Disease Active 9 00:00: 00 [facility] Special screening examinatio n for viral disease Special screening examinatio n for viral disease Disease Active 909 00:00: 00 [facility] care and examinatio n of lactating mother care and examinatio n of lactating mother Disease Active 2-14 00:00: 00 [facility] Previous section complicati ng Previous section complicati ng Disease Active 1-26 00:00: 00 [facility] Atypical squamous cells of undetermin ed significan ce (ASCUS) on Papanicola ou smear of cervix Atypical squamous cells of undetermin ed significan ce (ASCUS) on Papanicola ou smear of cervix Disease Active 1-24 00:00: 00 [facility] 33 weeks gestation of 33 weeks gestation of Disease Active 2017-11 2-29 00:00: 00 [facility] Nausea and vomiting during Nausea and vomiting during Disease Active 8-22 00:00: 00 [facility] BMI 32.0-32.9, adult BMI 32.0-32.9, adult Disease Active 7-07 00:00: 00 [facility] Maternal varicella, non-immune Maternal varicella, non-immune Disease Active 05-21 00:00: 00 Overview: Formattin g of this note might be different from the original. Address pp [facility] Rubella non-immune status, antepartum Rubella non-immune status, antepartum Disease Active 05-21 00:00: 00 Overview: Formattin g of this note might be different from the original. Address pp [facility] Supervisio n of high risk in third trimester Supervisio n of high risk in third trimester Disease Active 05-20 00:00: 00 [facility] Multiparit y Multiparit y Disease Active 05-20 00:00: 00 [facility] Well woman exam Well woman exam Disease Active 7-11 00:00: 00 [facility] Obesity in Obesity in Disease Active 3-03 00:00: 00 Overview: Formattin g of this note might be different from the original. 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 [facility] Encounter for IUD removal and reinsertio n Encounter for IUD removal and reinsertio n Disease Active 2-24 00:00: 00 [facility] ASCUS on Pap smear ASCUS on Pap smear Disease Active 5-22 00:00: 00 [facility] Allergies, Adverse Reactions, Alerts Allergy Name Allergy Type Status Severity Reaction(s) Onset Date Inactive Date Treating Clinician Comments Source Morphine Propensi ty to adverse reaction s Active Hives 16 00:00: 00 [facility] MORPHINE DRUG INGREDI Active Hives 16 00:00: 00 [facility] Sodium Citrate (Bulk) Propensi ty to adverse reaction s Active Nausea and/or Vomiting 24 00:00: 00 [facility] SODIUM CITRATE (BULK) DRUG Active N/V 2019-0 1-24 00:00: 00 [facility] Ibuprofe n Propensi ty to adverse reaction s Active Hives 04-15 00:00: 00 [facility] Dixie Propensi ty to adverse reaction s Active Hives 04-15 00:00: 00 [facility] IBUPROFE N DRUG INGREDI Active Hives 04-15 00:00: 00 [facility] ORANGE DRUG Active Hives 04-15 00:00: 00 [facility] Social History Social Habit Start Date Stop Date Quantity Comments Source History SDOH Alcohol Frequency [facility] History SDOH Alcohol Std Drinks General acute hospital History SDOH Alcohol Binge [facility] ASSERTION [facility] to SARS-CoV-2 (event) 2022-03-17 00:00:00 2022-03-27 14:04:00 Not sure [facility] Alcohol intake 2020-10-14 00:00:00 2020-10-14 00:00:00 0 /d [facility] History of Social function 2020-08-03 00:00:00 2020-08-03 00:00:00 [facility] Tobacco use and exposure 2014-04-15 00:00:00 2014-04-15 00:00:00 Smokeless tobacco non-user [facility] Alcohol Comment 2014-04-15 00:00:00 2014-04-15 00:00:00 socially [facility] Sex Assigned At 1990 00:00:00 1990 00:00:00 [facility] Smoking Status Start Date Stop Date Source Never smoked tobacco [facility] Medications Ordered Medication Name Filled Medication Name Start Date Stop Date Current Medication? Ordering Clinician Indication Dosage Frequency Signature (SIG) Comments Components Source No known medications 03-27 14:11: 56 No [facility] No known medications 03-27 14:11: 56 No [facility] docusate 100 mg capsule 2019-11 00:00: 00 02-15 00:00 :00 No [id number] 100mg Take 1 capsule by mouth daily. May substitute for what is in stock and covered by patient plan [facility] acetaminoph en 325 mg Cap 2019-11 1-20 00:00: 00 02-15 00:00 :00 No [id number] 2{tbl} Take 2 tablets by mouth every 6 (six) hours. [facility] doxylamine- pyridoxine, vit B6, (DICLEGIS) 10-10 mg per tablet 2019-11 0-13 00:00: 00 02-28 00:00 :00 No [id number] 2{tbl} Take 2 tablets by mouth at bedtime. [facility] proCHLORper azine 10 mg tablet 2019-11 008 00:00: 00 02-02 00:00 :00 No [id number] 10mg Take 1 tablet by mouth every 6 (six) hours as needed (for nausea and vomiting unresponsi ve to doxylamine /pyridoxin e). [facility] vit 33-iron-fol ic-dha (SELECT-OB + DHA) 29 mg iron-1 mg -250 mg combo pack 9-09 00:00: 00 02-15 00:00 :00 No [id number] 1{packe t} Take 1 Packet by mouth daily. [facility] Immunizations Ordered Immunization Name Filled Immunization Name Date Status Comments Source TDAP 2021-01-18 00:00:00 Completed [facility] TDAP 2021-01-18 00:00:00 Completed [facility] Varicella (varivax)(chicken pox) 2018-12-20 00:00:00 Completed [facility] Varicella (varivax)(chicken pox) 2018-12-20 00:00:00 Completed [facility] TDAP (ADACEL) VACCINE 2018-12-11 00:00:00 Completed [facility] TDAP (ADACEL) VACCINE 2018-12-11 00:00:00 Completed [facility] HPV9 2016-06-04 00:00:00 Completed [facility] HPV9 2016-06-04 00:00:00 Completed [facility] TDAP 2015-04-06 00:00:00 Completed [facility] TDAP 2015-04-06 00:00:00 Completed [facility] Td 2004-11-25 00:00:00 Completed [facility] Tetanus/Diptheria 2004-11-25 00:00:00 Completed [facility] Td 2004-11-25 00:00:00 Completed [facility] Tetanus/Diptheria 2004-11-25 00:00:00 Completed [facility] TD, NOS Unknown Completed [facility] TDAP Unknown Completed [facility] HPV9 Unknown Completed [facility] TDAP (ADACEL) VACCINE Unknown Completed [facility] Varicella (varivax)(chicken pox) Unknown Completed [facility] Tetanus/Diptheria Unknown Completed [facility] Vital Signs Vital Name Observation Time Observation Value Comments S ource Systolic blood pressure 2022-03-27 19:29:00 122 mm[Hg] [facility] Diastolic blood pressure 2022-03-27 19:29:00 80 mm[Hg] [facility] Heart rate 2022-03-27 19:29:00 105 /min [facility] Body height 2022-03-27 19:29:00 162.6 cm [facility] Body weight 2022-03-27 19:29:00 87.317 kg [facility] BMI 2022-03-27 19:29:00 33.04 kg/m2 [facility] Encounters Start Date/Time End Date/Time Encounter Type Admission Type Attending Clinicians Care Facility Care Department Encounter ID Source 2021-09-24 10:31:27 Outpatient P [facility] [id number] [facility] 2021-09-24 09:02:29 Outpatient [facility] [id number] [facility] 2021-09-24 06:47:18 Emergency X [facility] [id number] [facility] 2021-09-24 06:38:20 Outpatient [facility] [id number] [facility] 2021-09-24 05:25:21 Outpatient [facility] [id number] [facility] 2021-09-24 04:28:40 Outpatient [facility] [id number] [facility] 2021-09-24 04:28:31 Emergency [facility] [id number] [facility] 2021-09-24 01:10:45 Outpatient P [facility] [id number] [facility] 2021-09-23 21:07:50 Emergency [facility] [id number] [facility] 2021-09-23 07:29:02 [id number] 2021-09-23 06:08:13 Outpatient [facility] [id number] [facility] 2021-09-22 23:31:44 [id number] [facility] 2021-09-22 23:30:48 Emergency [facility] [id number] [facility] 2021-09-22 22:58:12 [id number] 2021-09-22 21:53:49 [facility] [id number] [facility] 2021-09-22 21:28:28 [facility] [id number] [facility] 2021-09-22 20:56:44 [facility] [id number] [facility] 2023-02-07 16:31:26 2023-02-07 16:31:26 Outpatient [facility] [id number] José Luis Britton 2022-03-28 00:00:00 2022-03-28 00:00:00 Telephone Charles James [facility] MEDICAL OFFICE BUILDING [id number] [facility] 2022-03-27 14:30:00 2022-03-27 23:59:00 Outpatient R [facility] [id number] [facility] 2022-03-27 14:30:00 2022-03-27 15:00:00 Office Visit Ember Franks [facility] [id number] [facility] 2022-03-27 14:30:00 2022-03-27 14:30:00 Outpatient EMBER EPPS [facility] [id number] [facility] 2022-03-27 00:00:00 2022-03-27 00:00:00 Orders Only Doctor Unassigned, [place] [facility] [id number] [facility] 2021-05-10 14:30:00 2021-05-10 14:30:00 Outpatient CORNELIUS [facility] [id number] [facility] 2021-03-22 13:46:41 2021-03-22 14:24:31 Routine Visit Cornelius Zavaleta [facility] 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 [facility] [id number] 2021-03-22 14:00:00 2021-03-22 14:00:00 Outpatient CORNELIUS [facility] [id number] [facility] 2021-03-06 11:00:00 2021-03-06 11:00:00 Outpatient DAVE [facility]LL [facility] [id number] [facility] 2021-03-01 12:45:00 2021-03-01 12:45:00 Outpatient CORNELIUS [facility] [id number] [facility] 2021-02-19 15:41:00 2021-02-19 15:41:00 Outpatient CORNELIUS ARAMBULA [facility] [id number] [facility] 2021-02-15 14:30:00 2021-02-15 14:30:00 Outpatient CORNELIUS [facility] [id number] [facility] 2021-02-01 15:15:00 2021-02-01 15:15:00 Outpatient CORNELIUS [facility] [id number] [facility] 2021-01-18 13:45:00 2021-01-18 13:45:00 Outpatient CORNELIUS [facility] [id number] [facility] 2021-01-06 09:45:00 2021-01-06 09:45:00 Outpatient CORNELIUS [facility] [id number] [facility] 2020-12-23 11:00:00 2020-12-23 11:00:00 Outpatient R BOOM [facility]JORQUEZ [facility] [id number] [facility] 2020-12-20 10:45:00 2020-12-20 10:45:00 Outpatient R BOOM BOJORQUEZ [facility] [id number] [facility] 2020-12-20 09:45:00 2020-12-20 09:45:00 Outpatient R CORNELIUS [facility] [id number] [facility] 2020-12-13 14:15:00 2020-12-13 14:15:00 Outpatient P JAMAAL SHELLEY [facility] [id number] [facility] 2020-11-29 14:30:00 2020-11-29 14:30:00 Outpatient R [facility] [id number] [facility] 2020-11-22 14:00:00 2020-11-22 14:00:00 Outpatient R BOOM BOJORQUEZ [facility] [id number] [facility] 2020-11-15 13:00:00 2020-11-15 13:00:00 Outpatient P CHRISTINA GOMEZ [facility] [id number] [facility] 2020-11-08 15:00:00 2020-11-08 15:00:00 Outpatient P EDYTA FRANCIS [facility] [id number] [facility] 2020-10-31 15:15:00 2020-10-31 15:15:00 Outpatient P STEVE GRANADOS [facility] [id number] [facility] 2020-10-24 13:45:00 2020-10-24 13:45:00 Outpatient R [facility] [id number] [facility] 2020-10-14 00:00:00 2020-10-14 00:00:00 Case Management [place] Laura Mcdermott [facility] [id number] [facility] 2020-10-06 12:45:00 2020-10-06 12:45:00 Outpatient R CORNELIUS [facility]A [facility] [id number] [facility] 2020-09-08 10:45:00 2020-09-08 10:45:00 Outpatient R CORNELIUS [facility] [id number] [facility] 2020-08-31 12:45:00 2020-08-31 12:45:00 Outpatient R CORNELIUS [facility] [id number] [facility] 2020-08-24 13:30:00 2020-08-24 13:30:00 Out[facility] [id number] [facility] 2020-08-03 12:45:00 2020-08-03 12:45:00 Outpatient R CORNELIUS [facility]A [facility] [id number] [facility] 2020-07-12 14:15:00 2020-07-12 14:15:00 Outpatient R CORNELIUS [facility]AL[facility]A [facility] [id number] [facility] 2020-03-21 15:00:00 2020-03-21 15:00:00 Outpatient CORNELIUS [facility] [id number] [facility]
--- NOTE | 2023-12-13 01:41 | EDPHYS ---
Physician Documentation [facility] Name: Suraj Courtney Age: 33 yrs Sex: Female : 1990 Arrival Date: 12/13/2023 Time: 01:27 Bed IW1 Private MD: ED Physician Jeanne Pearson HPI: 12/13 01:37 This 33 yrs old Female presents to ER via EMS with complaints of abdominal pain and sp3 vomiting. 01:37 33-year-old female with history of hyperemesis gravidarum, chronic pancreatitis sp3 presents to the ED again after just being discharged approximately 1 hour ago after complete workup including labs and CT scan for emesis. She denies any other symptoms including chest pain, shortness of breath, fever or any other signs or symptoms on ROS at this time.. 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 - Social history:: Smoking status: Patient denies any tobacco usage or history of. Patient uses alcohol, only on a social basis. ROS: 01:38 Constitutional: Negative for fever, chills, and weight loss, Eyes: Negative for injury, sp3 pain, redness, and discharge, ENT: Negative for injury, pain, and discharge, Neck: Negative for injury, pain, and swelling, Cardiovascular: Negative for chest pain, palpitations, and edema, Respiratory: Negative for shortness of breath, cough, wheezing, and pleuritic chest pain, Back: Negative for injury and pain, MS/Extremity: Negative for injury and deformity, Skin: Negative for injury, rash, and discoloration, Neuro: Negative for headache, weakness, numbness, tingling, and seizure, Psych: Negative for depression, anxiety, suicide ideation, homicidal ideation, and hallucinations, Allergy/Immunology: Negative for hives, rash, and allergies, Endocrine: Negative for neck swelling, polydipsia, polyuria, polyphagia, and marked weight changes, Hematologic/Lymphatic: Negative for swollen nodes, abnormal bleeding, and unusual bruising, 01:38 All other systems are negative, Exam: 01:39 Constitutional: This is a well developed, well nourished patient who is awake, alert, sp3 and in no acute distress. Head/Face: Normocephalic, atraumatic. Eyes: Pupils equal round and reactive to light, extra-ocular motions intact. Lids and lashes normal. Conjunctiva and sclera are non-icteric and not injected. Cornea within normal limits. Periorbital areas with no swelling, redness, or edema. ENT: Nares patent. No nasal discharge, no septal abnormalities noted. External auditory canals are clear. Oropharynx with no redness, swelling, or masses, exudates, or evidence of obstruction, uvula midline. Mucous membranes moist. Neck: Trachea midline, no thyromegaly or masses palpated, and no cervical lymphadenopathy. Supple, full range of motion without nuchal rigidity, or vertebral point tenderness. No Meningismus. Chest/axilla: Normal chest wall appearance and motion. Nontender with no deformity. No lesions are appreciated. Cardiovascular: Regular rate and rhythm with a normal S1 and S2. No gallops, murmurs, or rubs. Normal PMI, no JVD. No pulse deficits. Respiratory: Lungs have equal breath sounds bilaterally, clear to auscultation and percussion. No rales, rhonchi or wheezes noted. No increased work of breathing, no retractions or nasal flaring. Back: No spinal tenderness. No costovertebral tenderness. Full range of motion. Skin: Warm, dry with normal turgor. Normal color with no rashes, no lesions, and no evidence of cellulitis. MS/ Extremity: Pulses equal, no cyanosis. Neurovascular intact. Full, normal range of motion. Neuro: Awake and alert, GCS 15, oriented to person, place, time, and situation. Cranial nerves II-XII grossly intact. Motor strength 5/5 in all extremities. Sensory grossly intact. Cerebellar exam normal. Normal gait. Psych: Awake, alert, with orientation to person, place and time. Behavior, mood, and affect are within normal limits. 01:39 Abdomen/GI: Mild abdominal tenderness without peritoneal signs, rebound or guarding., sp3 Vital Signs: 01:32 BP 133 / 81; Pulse 77; Resp 17 S; Temp 98.4(O); Pulse Ox 100% on R/A; Weight 104.33 kg lg3 (R); Height 5 ft. 4 in. (R); Pain 10/10; 01:32 Body Mass Index 39.48 (104.33 kg, 162.56 cm) lg3 01:32 Pain Scale: Adult lg3 MDM: 01:39 Data reviewed: vital signs, nurses notes, lab test result(s), radiologic studies. ED sp3 course: Full workup from earlier reviewed. No change in management recommended. Will give patient ondansetron p.o. and Maalox p.o. for probable mild gastritis. Continue outpatient plan as before. No further indication for any other intervention in the ED.. 01:40 Patient medically screened. sp3 Administered Medications: 01:47 Drug: Ondansetron PO 4 mg PO once Route: PO; lg3 01:49 Follow up: Response: No adverse reaction; Marked relief of symptoms lg3 01:47 Drug: Alum-Mag Hydroxide-Simeth PO Suspension (200 mg-200 mg-20 mg/5 mL) 30 ml PO once lg3 Route: PO; 01:49 Follow up: Response: No adverse reaction; Marked relief of symptoms lg3 Disposition Summary: 12/13/23 01:40 Discharge Ordered Notes: Location: Home sp3 Condition: Stable sp3 Diagnosis - Gastritis sp3 Followup: sp3 - With: Private Physician - When: Upon discharge from the Emergency Department - Reason: Continuance of care Discharge Instructions: - Discharge Summary Sheet sp3 - Gastritis, Adult, [id number]-[id number] sp3 Forms: - Medication Reconciliation Form sp3 - Thank You Letter sp3 - Antibiotic Education sp3 - Prescription Opioid Use sp3 - Patient Portal Instructions sp3 - Leadership Thank You Letter sp3 Signatures: Sera Win RN RN lg3 Jeanne Pearson MD MD sp3
--- NOTE | 2023-12-13 01:41 | ER ---
Nurse's Notes [facility] Name: Suraj Courtney Age: 33 yrs Sex: Female : 1990 Arrival Date: 12/13/2023 Time: 01:27 Bed IW1 Private MD: Diagnosis: Gastritis Presentation: 12/13 01:32 Chief complaint: Patient states: DC'd from here, went home, ate. pain in center abdomen lg3 09/03. Coronavirus screen: Client denies travel out of the [place] in the last 14 days. At this time, the client does not indicate any symptoms associated with coronavirus-19. Ebola Screen: No symptoms or risks identified at this time. Initial Sepsis Screen: Does the patient meet any 2 criteria? No. Patient's initial sepsis screen is negative. Does the patient have a suspected source of infection? No. Patient's initial sepsis screen is negative. Risk Assessment: Do you want to hurt yourself or someone else? Patient reports no desire to harm self or others. Onset of symptoms was December 13, 2023. 01:32 Method Of Arrival: EMS: [facility] lg3 01:32 Acuity: SHAW 4 lg3 Triage Assessment: 01:36 General: Appears in no apparent distress. uncomfortable, Behavior is cooperative, lg3 anxious, crying, fussy. Pain: Complains of pain in abdomen. EENT: No deficits noted. No signs and/or symptoms were reported regarding the EENT system. Neuro: No deficits noted. Forbes Agitation-Sedation Scale (RASS): +1 Restless Level of Consciousness is awake, alert, obeys commands, Oriented to person, place, time, situation. Cardiovascular: No deficits noted. Denies chest pain, shortness of breath, Capillary refill < 3 seconds Clubbing of nail beds is absent JVD is absent Patient's skin is warm and dry. Respiratory: No deficits noted. Airway is patent Respiratory effort is even, unlabored, Respiratory pattern is regular, symmetrical. GI: Abdomen is round non-distended, obese, Reports upper abdominal pain. : No deficits noted. No signs and/or symptoms were reported regarding the genitourinary system. Derm: No deficits noted. No signs and/or symptoms reported regarding the dermatologic system. Skin is intact, is healthy with good turgor, Skin is dry, Skin is normal, Skin temperature is warm. Musculoskeletal: No deficits noted. No signs and/or symptoms reported regarding the musculoskeletal system. Circulation, motion, and sensation intact. Range of motion: intact in all extremities. 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 - Social history:: Smoking status: Patient denies any tobacco usage or history of. Patient uses alcohol, only on a social basis. Screenin:38 [facility] ED Fall Risk Assessment (Adult) History of falling in the last 3 months, lg3 including since admission No falls in past 3 months (0 pts). Abuse screen: Denies threats or abuse. Denies injuries from another. Nutritional screening: No deficits noted. Tuberculosis screening: No symptoms or risk factors identified. Assessment: 01:38 General: see triage assessment. lg3 Vital Signs: 01:32 BP 133 / 81; Pulse 77; Resp 17 S; Temp 98.4(O); Pulse Ox 100% on R/A; Weight 104.33 kg lg3 (R); Height 5 ft. 4 in. (R); Pain 10/10; 01:32 Body Mass Index 39.48 (104.33 kg, 162.56 cm) lg3 01:32 Pain Scale: Adult lg3 ED Course: 01:30 Patient arrived in ED. rv1 01:31 Jeanne Pearson MD is Attending Physician. sp3 01:35 Triage completed. lg3 01:36 Arm band placed on right wrist. lg3 01:38 Patient has correct armband on for positive identification. lg3 01:47 No provider procedures requiring assistance completed. Patient did not have IV access lg3 during this emergency room visit. Administered Medications: 01:47 Drug: Ondansetron PO 4 mg PO once Route: PO; lg3 01:49 Follow up: Response: No adverse reaction; Marked relief of symptoms lg3 01:47 Drug: Alum-Mag Hydroxide-Simeth PO Suspension (200 mg-200 mg-20 mg/5 mL) 30 ml PO once lg3 Route: PO; 01:49 Follow up: Response: No adverse reaction; Marked relief of symptoms lg3 Medication: 01:48 VIS not applicable for this client. lg3 Outcome: 01:40 Discharge ordered by . sp3 01:48 Discharged to home ambulatory, with significant other, lg3 01:48 Condition: stable 01:48 Discharge instructions given to patient, Instructed on discharge instructions, follow up and referral plans. Demonstrated understanding of instructions, follow-up care, 01:51 Patient left the ED. lg3 Signatures: Sera Win RN RN lg3 Jeanne Pearson MD MD sp3 Dotty Singh rv1
[2023-12-13 09:14] VITALS: BP 133/81; TEMP 98.4; O2SAT 100
== END ==
LOC: ER 01:27
DX: K29.70 Gastritis, unspecified, without bleeding (principal); Z88.5 Allergy status to narcotic agent; Z88.8 Allergy status to other drugs, medicaments and biological substances; Z91.018 Allergy to other foods; Z91.041 Radiographic dye allergy status
CPT/HCPCS: 99283; Q0162

== ENCOUNTER 2024-03-12 14:36 | Emergency (ER) | payer OTHER, SELFPAY ==
--- NOTE | 2024-03-12 15:23 | RAD REPORT ---
EXAM DESCRIPTION: RAD - Chest Single View - 03/12/2024 3:14 pm CLINICAL HISTORY: CHEST PAIN COMPARISON: Chest Single View dated 05/27/2023; Chest Single View dated 02/19/2023; Chest Single View d ated 12/30/2019; Chest Single View dated 06/12/2019 FINDINGS: Lines: None. Lungs: No evidence of edema or pneumonia. Pleural: No significant pleural effusions or pneumothorax. Cardiac: The heart size is within normal limits. Mediastinum: Within normal limits. Bones: No acute fractures. Other: None IMPRESSION: No acute cardiopulmonary disease.
[2024-03-12 15:36] LABS: PT Prothrombin Time 11.4 SECONDS (9.5-12.5); Protime INR 1.04
[2024-03-12 15:47] LABS: Absolute Eosinophils 0.2 K/uL (0-0.5); Absolute Lymphocytes (CBC) 2.2 K/uL (0.7-4.9); Absolute Monocytes 0.4 K/uL (0.1-1.3); Absolute Neutrophil 3.5 K/uL (1.8-8.0); Basophils % 0.6 % (0-1.3); Eosinophils % 2.7 % (0-4.4); Hematocrit 40.9 % (36.0-45.0); Hemoglobin 14.5 g/dL (12.0-15.0); Lymphocytes % 34.2 % (15.3-44.8); MCH 32.4 pg (27.0-35.0); MCHC 35.3 g/dL (32.0-36.0); MCV 91.8 fL (80-100); MPV 8.3 fL (7.6-11.3); Monocytes % 6.8 % (3.3-12.3); Neutrophils % 55.7 % (41.7-73.7); Nucleated Red Blood Cells % 0.2 % (0-0); Platelets 215 thou/uL (152-406); RBC Red Blood Cell Count 4.46 M/uL (3.86-4.86); Red Cell Distribution Width 13.3 % (12.1-15.2)
[2024-03-12 15:48] LABS: ALT/SGPT 30 U/L (13-56); AST/SGOT 16 U/L (15-37); Albumin 3.7 g/dL (3.4-5.0); Albumin/Globulin Ratio 1.1 (1.1-1.8); Alkaline Phosphatase 68 U/L (45-117); Anion Gap 4.6 mEq/L (5.0-15.0); BUN Blood Urea Nitrogen 13 mg/dL (7-18); Bicarbonate 27 mEq/L (21-32); Bilirubin Direct 0.1 mg/dL (0-0.2); Bilirubin Indirect, Calculated 0.5 mg/dL (0.2-0.8); Bilirubin Total 0.6 mg/dL (0.2-1.0); Globulin 3.5 g/dL (2.3-3.5); Glomerular Filtration Rate 76 ml/min (=/>90); Glucose Level 130 mg/dL (74-106); Magnesium 2.2 mg/dL (1.6-2.4); NT PRO-BNP 45 pg/mL (<125); Potassium 3.6 mEq/L (3.5-5.1); Protein, Total 7.2 g/dL (6.4-8.2); Sodium Level 137 mEq/L (136-145)
[2024-03-12 15:49] LABS: Troponin High Sensitivity < 3.0 pg/mL (<58.9)
[2024-03-12] MEDS ORDERED: NA CHLORIDE 0.9% 1,000 ML ONE (16:22)
--- NOTE | 2024-03-12 17:02 | EDPHYS ---
Physician Documentation [facility] Name: Suraj Courtney Age: 33 yrs Sex: Female : 1990 Arrival Date: 03/12/2024 Time: 14:36 Bed 15 Private MD: ED Physician Jeanne Pearson HPI: 03/12 14:56 This 33 yrs old Female presents to ER via Ambulatory with complaints of Doesn't Feel sb4 Right, Chest Pain. 14:57 The patient or guardian reports chest pain that is located primarily in the anterior sb4 chest wall, left. The pain radiates to anterior chest wall, right. Associated signs and symptoms: The patient has no apparent associated signs or symptoms. The chest pain is described as dull, sharp. Duration: The patient or guardian reports multiple episodes, that wax and wane, with no pattern. Modifying factors: The symptoms are alleviated by nothing. the symptoms are aggravated by nothing. The patient has not experienced similar symptoms in the past. The patient has not recently seen a physician. sudden onset of chest pain while bagging groceries. no associated signs and symptoms. had umbilical hernia repair surgery 3 weeks ago. 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 - Infectious Disease History:: Denies. - Social history:: Smoking status: Patient denies any tobacco usage or history of. ROS: 14:57 Constitutional: Negative for fever, chills, and weight loss, sb4 14:57 Cardiovascular: Positive for chest pain, 14:57 All other systems are negative, Exam: 14:57 Head/Face: Normocephalic, atraumatic. Eyes: Extra-ocular motions intact. Periorbital sb4 areas with no swelling, redness, or edema. ENT: Mucous membranes moist. Cardiovascular: Regular rate and rhythm with a normal S1 and S2. Respiratory: Lungs have equal breath sounds bilaterally, clear to auscultation and percussion. No rales, rhonchi or wheezes noted. No increased work of breathing, no retractions or nasal flaring. Abdomen/GI: Soft, non-tender, no distension. Skin: Warm, dry with normal turgor. Normal color with no rashes, no lesions, and no evidence of cellulitis. MS/ Extremity: Pulses equal, no cyanosis. Neurovascular intact. Full, normal range of motion. Neuro: Awake and alert, GCS 15, oriented to person, place, time, and situation. Motor strength 5/5 in all extremities. Sensory grossly intact. 14:57 Constitutional: The patient appears alert, awake, tearful Vital Signs: 14:47 BP 137 / 88; Pulse 69; Resp 18 S; Temp 97.8(TE); Pulse Ox 100% on R/A; Weight 88.45 kg aa5 (R); Height 5 ft. 4 in. (R); 15:00 BP 126 / 79; Pulse 65; Resp 19; Pulse Ox 100% on R/A; me1 16:00 BP 129 / 66; Pulse 69; Resp 20; Pulse Ox 97% on R/A; me1 17:00 BP 117 / 60; Pulse 69; Resp 14; Pulse Ox 98% ; me1 14:47 Body Mass Index 33.47 (88.45 kg, 162.56 cm) aa5 MDM: 14:47 Patient medically screened. sb4 15:14 Scoring Tools PERC Rule for PE Age >/= 50 No HR >/= 100 No O2 Sat Room Air < 95% No sb4 Unilateral leg swelling No Hemoptysis No Recent surgery or trauma </= 4 wks ago requiring treatment with general anesthesia Yes Prior PE or DVT No Hormone use (Oral contraceptives, hormone replacement or estrogenic hormones use in males or female patients No. 17:01 Data reviewed: vital signs, nurses notes, lab test result(s), EKG, radiologic studies, sb4 and as a result, I will discharge patient. Scoring Tools HEART Score: History: ECG: Age: Risk Factors: No Risk Factors Known (0), Troponin: Total Score = 0. Counseling: I had a detailed discussion with the patient and/or guardian regarding the historical points, exam findings, and any diagnostic results supporting the discharge/admit diagnosis, lab results, radiology results, to return to the emergency department if symptoms worsen or persist or if there are any questions or concerns that arise at home. 03/12 14:56 Order name: Basic Metabolic Panel; Complete Time: 15:49 sb4 03/12 14:56 Order name: CBC with Diff; Complete Time: 15:49 sb4 03/12 14:56 Order name: D-Dimer; Complete Time: 15:42 sb4 03/12 14:56 Order name: LFT's; Complete Time: 15:49 sb4 03/12 14:56 Order name: Magnesium; Complete Time: 15:49 sb4 03/12 14:56 Order name: NT PRO-BNP; Complete Time: 15:49 sb4 03/12 14:56 Order name: PT-INR; Complete Time: 15:42 sb4 03/12 14:56 Order name: Troponin HS; Complete Time: 15:49 sb4 03/12 14:56 Order name: XRAY Chest (1 view); Complete Time: 15:25 sb4 03/12 14:56 Order name: Cardiac monitoring; Complete Time: 15:16 sb4 03/12 14:56 Order name: EKG - Nurse/Tech; Complete Time: 14:58 sb4 03/12 14:56 Order name: IV Saline Lock; Complete Time: 15:16 sb4 03/12 14:56 Order name: Labs collected and sent; Complete Time: 15:16 sb4 03/12 14:56 Order name: O2 Per Protocol; Complete Time: 15:16 sb4 03/12 14:56 Order name: O2 Sat Monitoring; Complete Time: 15:16 sb4 EC:57 Rate is 74 beats/min. Rhythm is regular, Normal Sinus Rhythm. IN interval is normal at sb4 140 msec. QRS interval is normal at 90 msec. QT interval is normal at 394 msec. No Q waves. T waves are Normal. No ST changes noted. Clinical impression: Normal ECG and No evidence of ischemia. Interpreted by me. Reviewed by me. Administered Medications: 16:25 Drug: NS 0.9% IV 1000 ml IV at 1 bolus Per protocol; 1000 mL bolus Route: IV; Rate: 1 as6 bolus; Site: left forearm; 17:03 Follow up: Response: No adverse reaction; IV Status: Completed infusion; IV Intake: as6 1000ml 17:07 Follow up: Response: No adverse reaction; IV Status: Completed infusion; IV Intake: me1 1000ml Disposition Summary: 03/12/24 17:01 Discharge Ordered Notes: Location: Home sb4 Problem: new sb4 Symptoms: have improved sb4 Condition: Stable sb4 Diagnosis - Chest pain, unspecified sb4 Followup: sb4 - With: Emergency Department - When: As needed - Reason: Trouble breathing, Worsening of condition Discharge Instructions: - Discharge Summary Sheet sb4 - Nonspecific Chest Pain, Adult, [id number] sb4 Forms: - Work release form sb4 - Thank You Letter sb4 - Patient Portal Instructions sb4 - Leadership Thank You Letter sb4 Signatures: Dispatcher [employer] Heather Suarez, RN RN aa5 Jean Carlos Catherine RN RN as6 Fe Bush PA-C PADenia sb4 Queenie Conner RN me1 Corrections: (The following items were deleted from the chart) 14:56 14:56 BASIC METABOLIC PANEL+C.LAB.BRZ ordered. EDMS EDMS 14:56 14:56 CBC+H.LAB.BRZ ordered. EDMS EDMS 14:56 14:56 D-DIMER+COAG.LAB.BRZ ordered. EDMS EDMS 14:56 14:56 HEPATIC FUNCTION+C.LAB.BRZ ordered. EDMS EDMS 14:56 14:56 MAGNESIUM+C.LAB.BRZ ordered. EDMS EDMS 14:56 14:56 PROBNP+C.LAB.BRZ ordered. EDMS EDMS 14:56 14:56 PROTIME (+INR)+COAG.LAB.BRZ ordered. EDMS EDMS 14:56 14:56 Troponin High Sensitivity+C.LAB.BRZ ordered. EDMS EDMS 14:56 14:56 Chest Single View+RAD.RAD.BRZ ordered. EDMS EDMS
--- NOTE | 2024-03-12 17:02 | ER ---
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 Coronavirus screen: At this aa5 time, the client does not indicate any symptoms associated with coronavirus-19. Ebola Screen: Patient denies travel to an Ebola-affected area in the 21 days before illness onset. Initial Sepsis Screen: Does the patient meet any 2 criteria? No. Patient's initial sepsis screen is negative. Does the patient have a suspected source of infection? No. Patient's initial sepsis screen is negative. Risk Assessment: Do you want to hurt yourself or someone else? Patient reports no desire to harm self or others. Onset of symptoms was March 12, 2024. 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 - Infectious Disease History:: Denies. - Social history:: Smoking status: Patient denies any tobacco usage or history of. Screenin:00 [facility] ED Fall Risk Assessment (Adult) History of falling in the last 3 months, me1 including since admission No falls in past 3 months (0 pts) Confusion or Disorientation No (0 pts) Intoxicated or Sedated No (0 pts) Impaired Gait No (0 pts) Mobility Assist Device Used No (0 pt) Altered Elimination No (0 pt) Score/Fall Risk Level 0 - 2 = Low Risk Maintained a safe environment, Provided non-skid footwear, Hourly rounding (assess needs \T\ fall precautionary measures) done. Abuse screen: Denies threats or abuse. Nutritional screening: No deficits noted. Tuberculosis screening: No symptoms or risk factors identified. Assessment: 15:00 General: Appears uncomfortable, well groomed, well developed, well nourished, Behavior me1 is calm, cooperative, appropriate for age, Reports chest pain that started about 1 pm. Pain: Complains of pain in chest Pain radiates to left arm Pain currently is 9 out of 10 on a pain scale. Quality of pain is described as sharp, Pain began suddenly, Is continuous. Neuro: Level of Consciousness is awake, alert, obeys commands, Oriented to person, place, time, situation, Appropriate for age. Cardiovascular: Reports chest pain, shortness of breath, Capillary refill < 3 seconds Patient's skin is warm and dry. Respiratory: Airway is patent Respiratory effort is even, unlabored, Respiratory pattern is regular, symmetrical. GI: No signs and/or symptoms were reported involving the gastrointestinal system. : No signs and/or symptoms were reported regarding the genitourinary system. EENT: No signs and/or symptoms were reported regarding the EENT system. Derm: Skin is intact, is healthy with good turgor, Skin is pink, warm \T\ dry. Musculoskeletal: No signs and/or symptoms reported regarding the musculoskeletal system. Vital Signs: 14:47 BP 137 / 88; Pulse 69; Resp 18 S; Temp 97.8(TE); Pulse Ox 100% on R/A; Weight 88.45 kg aa5 (R); Height 5 ft. 4 in. (R); 15:00 BP 126 / 79; Pulse 65; Resp 19; Pulse Ox 100% on R/A; me1 16:00 BP 129 / 66; Pulse 69; Resp 20; Pulse Ox 97% on R/A; me1 17:00 BP 117 / 60; Pulse 69; Resp 14; Pulse Ox 98% ; me1 14:47 Body Mass Index 33.47 (88.45 kg, 162.56 cm) aa5 ED Course: 14:39 Patient arrived in ED. mg5 14:41 Fe Bush PA-C is PHCP. sb4 14:41 Jeanne Pearson MD is Attending Physician. sb4 14:47 Arm band placed on. aa5 14:48 Triage completed. aa5 14:57 EKG done, by ED staff, reviewed by Fe Bush PA-C. aa5 15:00 Queenie Conner, RN is Primary Nurse. me1 15:00 Patient has correct armband on for positive identification. Bed in low position. Call me1 light in reach. Side rails up X2. Provided Education on: POC. Verbalized understanding. . 15:00 No provider procedures requiring assistance completed. O2 via room air. me1 15:16 XRAY Chest (1 view) In Process Unspecified. EDMS 15:16 Client placed on continuous cardiac and pulse oximetry monitoring. NIBP monitoring me1 applied. court recording monitor on. Pulse ox on. NIBP on. 15:16 Initial lab(s) drawn, by ri, sent to lab. Inserted saline lock: 22 gauge in left ri1 forearm, using aseptic technique. 15:16 Basic Metabolic Panel Sent. me1 15:16 CBC with Diff Sent. me1 15:16 D-Dimer Sent. me1 15:16 LFT's Sent. me1 15:16 Magnesium Sent. me1 15:16 NT PRO-BNP Sent. me1 15:16 PT-INR Sent. me1 15:16 Troponin HS Sent. me1 17:10 IV discontinued, intact, bleeding controlled, No redness/swelling at site. Pressure as6 dressing applied. Administered Medications: 16:25 Drug: NS 0.9% IV 1000 ml IV at 1 bolus Per protocol; 1000 mL bolus Route: IV; Rate: 1 as6 bolus; Site: left forearm; 17:03 Follow up: Response: No adverse reaction; IV Status: Completed infusion; IV Intake: as6 1000ml 17:07 Follow up: Response: No adverse reaction; IV Status: Completed infusion; IV Intake: me1 1000ml Medication: 15:00 VIS not applicable for this client. me1 Intake: 17:03 IV: 1000ml; Total: 1000ml. as6 17:07 IV: 1000ml; Total: 2000ml. me1 Outcome: 17:01 Discharge ordered by . sb4 17:03 Discharged to home ambulatory, with significant other, as6 17:03 Condition: stable 17:10 Discharge instructions given to patient, Instructed on discharge instructions, follow as6 up and referral plans. Demonstrated understanding of instructions, follow-up care, 17:10 Patient left the ED. 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
[2024-03-13 00:18] VITALS: BP 117/60; TEMP 97.8; O2SAT 98
== END 2024-03-12 17:10 | disposition home or self-care (01) ==
LOC: ER 14:36
DX: R07.9 Chest pain, unspecified (principal); Z98.890 Other specified postprocedural states; Z88.5 Allergy status to narcotic agent; Z88.6 Allergy status to analgesic agent; Z91.018 Allergy to other foods; Z91.041 Radiographic dye allergy status
CPT/HCPCS: 93005; 85025; 80048; 36415; 83735; 85610; 85379; 80076; 84484; 83880; 71045; 96360; 99285; J7030

== ENCOUNTER 2024-06-23 23:34 | Emergency (ER) | payer OTHER ==
--- OUTSIDE RECORDS SUMMARY | 2024-06-23 23:38 | XMS REPORT | Continuity of Care Document ---
Author Name Unknown Address [address] [facility] [place] [address] [facility] Address [address] 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 Role Phone Jim Cornelius WELLINGTON Primary Care Physician Un available MARKO SCOTT Attending Clinician Unavailable YUN RAMIREZ Attending Clinician Unavailable NOEL LEON Attending Clinician Unavailable VESNA WOLFF Attending Clinician Unavailniecy e LAB90 Attending Clinician Unavailable AMILCAR FIELD Attending Clinician UnavailCharles Shelton MD Attending Clinician [phone] CHARLES JAMES Attending Clinician UnavailEmber Triplett Attending Clinician [phone] EMBER FRANKS Attending Clinician Unavailable Doctor Unassigned, [place] Attending Clinician U navailable CORNELIUS ZAVALETA Attending Clinician Unavailab jacqueline Zavaleta Cornelius WELLINGTON Attending Clinician DAVE BERMAN Attending Clinician Unavailable BOOM BOJORQUEZ Attending Clinician Unavail able JAMAAL EPPS Attending Clinician Unav ailable CHRISTINA GOMEZ Attending Clinician Unavailable EDYTA FRANCIS Attending Clinician Unavailable EDYTA FRANCIS Attending Clinician Unavailable STEVE GRANADOS Attending Clinician Unavailable STEVE GRANADOS Attending Clinician Unavailable Duncan Mcdermott MD, Laura Attending Clinician + WESLEY GRANADOS Admitting Clinician Unavailable HODA STOKES Admitting Clinician Unavailable KP SHANE Admitting Clinician Unavailable CARMELINA PRADO Admitting Clinician Unavailable STEVE GRANADOS Admitting Clinician Unavailable EDYTA FRANCIS Admitting Clinician Unavailable JOHN MERCER Admitting Clinician Unavailabl e Payers Payer Name Policy Type Policy Number Effective Date Expirati on Date Source [employer] MEDICA[employer] [id number] 2018 00:00:00 [facility] HERB ARREOLA COPAY FOCUS 9 [id number] 2023 00:00:00 [employer] [facility] S[facility] 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 ON 9 [id number] 2023 00:00:00 Problems Condition Name Condition Details Condition Category Status Onset Date Resolution Date Last Treatment Date Treating Clinician Comments Source Encounter for surveillan ce of contracept saman, unspecifie d contracept haider Encounter for surveillan ce of contracept saman, unspecifie d contracept haider Disease Active 05-10 00:00: 00 [facility] History of bilateral tubal ligation History of bilateral tubal ligation Disease Active 05-10 00:00: 00 [facility] Overweight (BMI 25.0-29.9) Overweight (BMI 25.0-29.9) Disease Active 05-10 00:00: 00 [facility] S/P section S/P section Disease Active 4-06 00:00: 00 [facility] contractio ns contractio ns Disease Active 3-29 00:00: 00 [facility] History of delivery History of delivery Disease Active 2019-11 00:00: 00 [facility] History of cholecyste ctomy History of cholecyste ctomy Disease Active 2019-11 00:00: 00 [facility] Cholelithi asis affecting in second trimester, antepartum Cholelithi asis affecting in second trimester, antepartum Disease Active 2019-11 00:00: 00 [facility] Gallstones Gallstones Disease Active 2019-11 00:00: 00 Overview: Formattin g of this note might be different from the original. Added automatic ally from request for surgery [id number] [facility] Nausea and vomiting in Nausea and vomiting in Disease Active 2019-11 0 00:00: 00 [facility] 9 weeks gestation of 9 weeks gestation of Disease Active 2019-11 00:00: 00 [facility] Hyperemesi s gravidarum before end of 22 week gestation with dehydratio n Hyperemesi s gravidarum before end of 22 week gestation with dehydratio n Disease Active 2019-11 0 00:00: 00 [facility] Obesity (BMI 30-39.9) Obesity (BMI 30-39.9) Disease Active 2019-11 007 00:00: 00 [facility] Hyperemesi s gravidarum Hyperemesi s gravidarum Disease Active 2019-11 0 00:00: 00 [facility] Desires (vaginal after ) trial Desires (vaginal after ) trial Disease Active 08-03 00:00: 00 [facility] Special screening examinatio n for viral disease Special screening examinatio n for viral disease Disease Active 08-03 00:00: 00 [facility] care and examinatio n of lactating mother care and examinatio n of lactating mother Disease Active 2-14 00:00: 00 [facility] Previous section complicati ng Previous section complicati ng Disease Active 12-20 00:00: 00 [facility] Atypical squamous cells of undetermin ed significan ce (ASCUS) on Papanicola ou smear of cervix Atypical squamous cells of undetermin ed significan ce (ASCUS) on Papanicola ou smear of cervix Disease Active 124 00:00: 00 [facility] 33 weeks gestation of 33 weeks gestation of Disease Active 2017-11 2-29 00:00: 00 [facility] Nausea and vomiting during Nausea and vomiting during Disease Active 07-16 00:00: 00 [facility] BMI 32.0-32.9, adult BMI 32.0-32.9, adult Disease Active 05-31 00:00: 00 [facility] Maternal varicella, non-immune Maternal varicella, non-immune Disease Active 05-21 00:00: 00 Overview: Formattin g of this note might be different from the original. Address pp [facility] Rubella non-immune status, antepartum Rubella non-immune status, antepartum Disease Active 05-21 00:00: 00 Overview: Formattin g of this note might be different from the original. Address pp [facility] Supervisio n of high risk in third trimester Supervisio n of high risk in third trimester Disease Active 05-20 00:00: 00 [facility] Multiparit y Multiparit y Disease Active 05-20 00:00: 00 [facility] Well woman exam Well woman exam Disease Active 06-04 00:00: 00 [facility] Obesity in Obesity in Disease Active 3- 00:00: 00 Overview: Formattin g of this note might be different from the original. 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 [facility] Encounter for IUD removal and reinsertio n Encounter for IUD removal and reinsertio n Disease Active 2-24 00:00: 00 [facility] ASCUS on Pap smear ASCUS on Pap smear Disease Active 04-15 00:00: 00 [facility] Allergies, Adverse Reactions, Alerts Allergy Name Allergy Type Status Severity Reaction(s) Onset Date Inactive Date Treating Clinician Comments Source Ibuprofe n Propensi ty to adverse reaction s Active Hives 12-17 00:00: 00 Di Soares - Externa l Cottle Propensi ty to adverse reaction s Active Swelling 12-17 00:00: 00 Di Soares - Matthiasa l Morphine Propensi ty to adverse reaction s Active Hives 0 16 00:00: 00 [facility] MORPHINE DRUG INGREDI Active Hives 0 16 00:00: 00 [facility] SODIUM CITRATE (BULK) DRUG Active N/V 12-18 00:00: 00 [facility] Sodium Citrate (Bulk) Propensi ty to adverse reaction s Active Nausea and/or Vomiting 0 24 00:00: 00 [facility] Ibuprofe n Propensi ty to adverse reaction s Active Hives 0 04-15 00:00: 00 [facility] Cottle Propensi ty to adverse reaction s Active Hives 0 04-15 00:00: 00 [facility] IBUPROFE N DRUG INGREDI Active Hives 0 04-15 00:00: 00 [facility] ORANGE DRUG Active Hives 0 22 00:00: 00 [facility] Social History Social Habit Start Date Stop Date Quantity Comments Source History SDOH Alcohol Frequency [facility] History SDOH [facility] SDOH Alcohol Binge [facility] ASSERTION [facility] Sexual orientation Mary Carmen Soares - External Tobacco use and exposure 2023-12-17 00:00:00 2023-12-17 00:00:00 Smokeless tobacco non-user Di Soares - External History of Social function 2023-12-17 00:00:00 2023-12-17 00:00:00 Di Soares - External Exposure to SARS-CoV-2 (event) 2022-03-17 00:00:00 2022-03-27 14:04:00 Not sure [facility] Alcohol intake 2020-10-14 00:00:00 2020-10-14 00:00:00 0 /d [facility] Alcohol Comment 2014-04-15 00:00:00 2014-04-15 00:00:00 elías [facility] Sex Assigned At 1990 00:00:00 1990 00:00:00 Di Gallardo Smoking Status Start Date Stop Date Source Never smoked tobacco Di Gallardo Medications Ordered Medication Name Filled Medication Name Start Date Stop Date Current Medication? Ordering Clinician Indication Dosage Frequency Signature (SIG) Comments Components Source Ondansetron HCl (Zofran) 4 MG oral Tablet 12-17 15:01: 49 12-17 00:00 :00 No 4mg [id number] 3D Take 1 tablet (4 mg total) by mouth every 8 hours as needed for nausea. Di aldridge Ondansetron HCl (Zofran) 4 MG oral Tablet 12-17 00:00: 00 Yes [id number] 4mg Q.[id number] 3D Take 1 tablet (4 mg total) by mouth every 8 hours as needed for nausea. Di aldridge No known medications 03-27 14:11: 56 No [facility] docusate 100 mg capsule 2019-11 00:00: 00 02-15 00:00 :00 No [id number] 100mg Take 1 capsule by mouth daily. May substitute for what is in stock and covered by patient plan [facility] acetaminoph en 325 mg Cap 2019-11 00:00: 00 02-15 00:00 :00 No [id number] 2{tbl} Take 2 tablets by mouth every 6 (six) hours. [facility] doxylamine- pyridoxine, vit B6, (DICLEGIS) 10-10 mg per tablet 2019-11 0-13 00:00: 00 02-28 00:00 :00 No [id number] 2{tbl} Take 2 tablets by mouth at bedtime. [facility] proCHLORper azine 10 mg tablet 2019-11 0-08 00:00: 00 02-02 00:00 :00 No [id number] 10mg Take 1 tablet by mouth every 6 (six) hours as needed (for nausea and vomiting unresponsi ve to doxylamine /pyridoxin e). [facility] vit 33-iron-fol ic-dha (SELECT-OB + DHA) 29 mg iron-1 mg -250 mg combo pack 9-09 00:00: 00 02-15 00:00 :00 No [id number] 1{packe t} Take 1 Packet by mouth daily. [facility] Immunizations Ordered Immunization Name Filled Immunization Name Date Status Comments Source TDAP 2021-01-18 00:00:00 Completed [facility] TDAP 2021-01-18 00:00:00 Completed [facility] Varicella (varivax)(chicken pox) 2018-12-20 00:00:00 Completed [facility] Varicella (varivax)(chicken pox) 2018-12-20 00:00:00 Completed [facility] TDAP (ADACEL) VACCINE 2018-12-11 00:00:00 Completed [facility] TDAP (ADACEL) VACCINE 2018-12-11 00:00:00 Completed [facility] HPV9 2016-06-04 00:00:00 Completed [facility] HPV9 2016-06-04 00:00:00 Completed [facility] TDAP 2015-04-06 00:00:00 Completed [facility] TDAP 2015-04-06 00:00:00 Completed [facility] Td 2004-11-25 00:00:00 Completed [facility] Tetanus/Diptheria 2004-11-25 00:00:00 Completed [facility] Td 2004-11-25 00:00:00 Completed [facility] Tetanus/Diptheria 2004-11-25 00:00:00 Completed [facility] TD, NOS Unknown Completed [facility] TDAP Unknown Completed [facility] HPV9 Unknown Completed [facility] TDAP (ADACEL) VACCINE Unknown Completed [facility] Varicella (varivax)(chicken pox) Unknown Completed [facility] Tetanus/Diptheria Unknown Completed Un [facility] Vital Signs Vital Name Observation Time Observation Value Comments S ource Systolic blood pressure 2023-12-17 20:22:00 118 mm[Hg] Di Blackburnybo ld - External Diastolic blood pressure 2023-12-17 20:22:00 68 mm[Hg] Di Blackburnybo ld - External Heart rate 2023-12-17 20:22:00 80 /min Kel y Seybold - External Body temperature 2023-12-17 20:22:00 36.67 Roxann Di Seybold - External Respiratory rate 2023-12-17 20:22:00 18 /min Di Blackburnybold - External Body height 2023-12-17 20:22:00 162.6 cm Ayleen ey Seybold - External Body weight 2023-12-17 20:22:00 87.544 kg Ayleen ey Seybold - External BMI 2023-12-17 20:22:00 33.13 kg/m2 Ayleen ey Seybold - External Oxygen saturation in Arterial blood by Pulse oximetry 2023-12-17 20:22:00 98 /min Di Jarviso ld - External Systolic blood pressure 2022-03-27 19:29:00 122 mm[Hg] [facility] Diastolic blood pressure 2022-03-27 19:29:00 80 mm[Hg] [facility] Heart rate 2022-03-27 19:29:00 105 /min [facility] Body height 2022-03-27 19:29:00 162.6 cm [facility] Body weight 2022-03-27 19:29:00 87.317 kg [facility] BMI 2022-03-27 19:29:00 33.04 kg/m2 [facility] Encounters Start Date/Time End Date/Time Encounter Type Admission Type Attending Clinicians Care Facility Care Department Encounter ID Source 2021-09-24 10:31:27 Outpatient P [facility] [id number] [facility] 2021-09-24 09:02:29 Outpatient P [facility] [id number] [facility] 2021-09-24 06:47:18 Emergency [facility] [id number] [facility] 2021-09-24 06:38:20 Outpatient [facility] [id number] [facility] ity [facility] 2021-09-24 05:25:21 Outpatient [facility] [id number] [facility] ity [facility] 2021-09-24 04:28:40 Outpatient [facility] [id number] [facility] ity [facility] 2021-09-24 04:28:31 Emergency [facility] [id number] [facility] ity [facility] 2021-09-24 01:10:45 Outpatient [facility] [id number] [facility] ity [facility] 2021-09-23 21:07:50 Emergency [facility] [id number] [facility] ity [facility] 2021-09-23 07:29:02 Emergency [facility] [id number] [facility] ity [facility] 2021-09-23 06:08:13 Outpatient [facility] [id number] [facility] ity [facility] 2021-09-22 23:31:44 Outpatient [facility] [id number] [facility] ity [facility] 2021-09-22 23:30:48 Emergency [facility] [id number] [facility] ity [facility] 2021-09-22 22:58:12 Emergency [facility] [id number] [facility] ity [facility] 2021-09-22 21:53:49 Outpatient [facility] [id number] [facility] ity [facility] 2021-09-22 21:28:28 [facility] [id number] 2021-09-22 20:56:44 [facility] [id number] [facility] 2024-07-09 10:00:00 2024-07-09 10:00:00 Outpatient MARKO SCOTT [id number] [facility] 2024-03-04 15:30:00 2024-03-04 15:30:00 Outpatient YUN RAMIREZ [id number] Di aretha 2024-02-25 00:00:00 2024-02-25 00:00:00 Outpatient RAMIREZ, YUN KWOK DI [id number] [facility] 2024-02-22 00:00:00 2024-02-22 00:00:00 Outpatient LEONNOEL SOLO DI DI [id number] [facility] 2024-02-20 12:30:00 2024-02-20 12:30:00 Outpatient NEW, VESNA DI DI [id number] [facility] 2024-02-18 07:45:00 2024-02-18 07:45:00 Outpatient RAMIREZ, ESTONIAN DI KWOK [id number] [facility] 2024-02-18 00:00:00 2024-02-18 00:00:00 Outpatient RAMIREZ, ESTONIAN DI KWOK [id number] [facility] 2024-02-18 00:00:00 2024-02-18 00:00:00 Outpatient RAMIREZ, ESTONIAN DI DI [id number] [facility] 2024-02-11 13:05:00 2024-02-11 13:05:00 Outpatient LAB90 DI DI [id number] Di Sey[facility] 2024-02-11 13:00:00 2024-02-11 13:00:00 Outpatient NEW, VESNA DI DI [id number] [facility] 2024-02-11 00:00:00 2024-02-11 00:00:00 Outpatient RAMIREZ, YUN KWOK [id number] [facility] 2024-02-10 12:30:00 2024-02-10 12:30:00 Outpatient NEW, VESNA DI KWOK [id number] [facility] 2024-02-06 00:00:00 2024-02-06 00:00:00 Outpatient RAMIREZ, YUN KWOK [id number] [facility] 2024-02-06 00:00:00 2024-02-06 00:00:00 Outpatient DI KWOK [id number] Di Seybold 2024-01-29 15:15:00 2024-01-29 15:15:00 Outpatient RAMIREZ, YUN KWOK [id number] [facility] 2024-01-23 15:20:00 2024-01-23 15:20:00 Outpatient DI DI [id number] [facility] 2024-01-23 00:00:00 2024-01-23 00:00:00 Outpatient YUN RAMIREZ DI [id number] [facility] 2024-01-23 00:00:00 2024-01-23 00:00:00 Outpatient YUN RAMIREZ DI [id number] [facility] 2024-01-21 00:00:00 2024-01-21 00:00:00 Outpatient RAMIREZYUN Vergara DI KWOK [id number] [facility] 2024-01-01 15:45:00 2024-01-01 15:45:00 Outpatient RAMIREZYUN Vergara DI KWOK [id number] [facility] 2023-12-26 00:00:00 2023-12-26 00:00:00 Outpatient AMILCAR FIELD DI KWOK [id number] [facility] 2023-12-17 14:30:00 2023-12-17 14:30:00 Outpatient AMILCAR FIELD DI KWOK [id number] [facility] 2023-02-07 16:31:26 2023-02-07 16:31:26 Outpatient [facility] [id number] José Luis Britton 2022-03-28 00:00:00 2022-03-28 00:00:00 Telephone Charles James [facility] [id number] [facility] 2022-03-27 14:30:00 2022-03-27 23:59:00 Outpatient CHARLES MACIAS [facility] [id number] [facility] 2022-03-27 14:30:00 2022-03-27 15:00:00 Office Visit Ember Franks [facility] 1..840.114 [id number] [facility] 2022-03-27 14:30:00 2022-03-27 14:30:00 Outpatient EMBER EPPS [facility] [id number] [facility] 2022-03-27 00:00:00 2022-03-27 00:00:00 Orders Only Doctor Unassigned, [place] [facility] 1..840.114 [id number] [facility] 2021-05-10 14:30:00 2021-05-10 14:30:00 Outpatient CORNELIUS HERNANDEZ [facility] [id number] [facility] 2021-03-22 13:46:41 2021-03-22 14:24:31 Routine Visit Cornelius Zavaleta [facility] 1..840.114 [id number] 2021-03-22 14:00:00 2021-03-22 14:00:00 Outpatient CORNELIUS HERNANDEZ [facility] [id number] [facility] 2021-03-06 11:00:00 2021-03-06 11:00:00 Outpatient DAVE MITCHELL [facility] [id number] [facility] 2021-03-01 12:45:00 2021-03-01 12:45:00 Outpatient CORNELIUS HERNANDEZ [facility] [id number] [facility] 2021-02-19 15:41:00 2021-02-19 15:41:00 Outpatient CORNELIUS ARAMBULA [facility] JOANN [id number] [facility] 2021-02-15 14:30:00 2021-02-15 14:30:00 Outpatient CORNELIUS HERNANDEZ [facility] [id number] [facility] 2021-02-01 15:15:00 2021-02-01 15:15:00 Outpatient CORNELIUS HERNANDEZ [facility] [id number] [facility] 2021-01-18 13:45:00 2021-01-18 13:45:00 Outpatient CORNELIUS HERNANDEZ [facility] [id number] [facility] 2021-01-06 09:45:00 2021-01-06 09:45:00 Outpatient R CORNELIUS ZAVALETA [facility] [id number] [facility] 2020-12-23 11:00:00 2020-12-23 11:00:00 Outpatient R MARYELLEN BOOM [facility] [id number] [facility] 2020-12-20 10:45:00 2020-12-20 10:45:00 Outpatient R JUMA BOJORQUEZOLA [facility] [id number] [facility] 2020-12-20 09:45:00 2020-12-20 09:45:00 Outpatient R CORNELIUS ZAVALETA [facility] [id number] [facility] 2020-12-13 14:15:00 2020-12-13 14:15:00 Outpatient P JAMAAL SHELLEY [facility] [id number] [facility] 2020-11-29 14:30:00 2020-11-29 14:30:00 Outpatient R [facility] [id number] [facility] 2020-11-22 14:00:00 2020-11-22 14:00:00 Outpatient R MARYELLEN BOOM [facility] [id number] [facility] 2020-11-15 13:00:00 2020-11-15 13:00:00 Outpatient P CHRISTINA GOMEZ [facility] [id number] [facility] 2020-11-08 15:00:00 2020-11-08 15:00:00 Outpatient P EDYTA FRANCIS SANGEETA [facility] [id number] [facility] 2020-10-31 15:15:00 2020-10-31 15:15:00 Outpatient P STEVE GRANADOS SHANNON [facility] [id number] [facility] 2020-10-24 13:45:00 2020-10-24 13:45:00 Outpatient R BRITTMARITZABOOM [facility] [id number] [facility] 2020-10-14 00:00:00 2020-10-14 00:00:00 Case Management Laura Agosto [facility] [id number] [facility] 2020-10-06 12:45:00 2020-10-06 12:45:00 Outpatient CORNELIUS HERNANDEZ [facility] [id number] [facility] 2020-09-08 10:45:00 2020-09-08 10:45:00 Outpatient R CORNELIUS ZAVALETA [facility] [id number] [facility] 2020-08-31 12:45:00 2020-08-31 12:45:00 Outpatient CORNELIUS HERNANDEZ [facility] [id number] [facility] 2020-08-24 13:30:00 2020-08-24 13:30:00 Outpatient P [facility] [id number] [facility] 2020-08-03 12:45:00 2020-08-03 12:45:00 Outpatient CORNELIUS HERNANDEZ [facility] [id number] [facility] 2020-07-12 14:15:00 2020-07-12 14:15:00 Outpatient CORNELIUS HERNANDEZ [facility] [id number] [facility] 2020-03-21 15:00:00 2020-03-21 15:00:00 Outpatient CORNELIUS HERNANDEZ [facility] [id number] [facility] Notes Date/Time Note Provider Source 2023-12-17 14:25:16 Follow-up Hospitalization (Hospital follow up for umbilical hernia) Nya Erickson [facility]
[2024-06-24] MEDS ORDERED: FAMOTIDINE 20 MG/2 ML VIAL IV ONE (00:11)
[2024-06-24] MEDS ORDERED: ONDANSETRON 4 MG/2 ML VIAL ONE (00:11)
[2024-06-24] MEDS ORDERED: NA CHLORIDE 0.9% 1,000 ML ONE (00:11)
[2024-06-24] MEDS ORDERED: KETOROLAC 30 MG/ML INJ ONE (00:42)
[2024-06-24 00:44] LABS: Specific Gravity 1.028 (1.005-1.030)
[2024-06-24 00:45] LABS: Specific Gravity 1.028 (1.005-1.030); Sqamous Epithelial <5 /HPF (None Seen); Urine Bacteria None Seen /HPF (<20); Urine Bilirubin NEGATIVE (Negative); Urine Blood Negative (Negative); Urine Clarity Clear (Clear); Urine Color Yellow (Yellow); Urine Culture Reflex Order NOT NEEDED; Urine Glucose NEGATIVE (Negative); Urine Ketones NEGATIVE (Negative); Urine Microscopic Reflex YN ORDER UMIC; Urine Mucus Slight /HPF (None Seen); Urine Nitrite NEGATIVE (Negative); Urine Protein TRACE (Negative); Urine RBC None Seen /HPF (None Seen); Urine Urobilinogen Normal (Normal); Urine WBC <5 /HPF (<5); Urine pH 6.5 (5.0-7.0)
[2024-06-24 00:46] LABS: Absolute Eosinophils 0.3 K/uL (0-0.5); Absolute Lymphocytes (CBC) 2.9 K/uL (0.7-4.9); Absolute Monocytes 0.5 K/uL (0.1-1.3); Absolute Neutrophil 4.6 K/uL (1.8-8.0); Basophils % 0.3 % (0-1.3); Eosinophils % 3.4 % (0-4.4); Hematocrit 42.5 % (36.0-45.0); Hemoglobin 14.4 g/dL (12.0-15.0); Lymphocytes % 34.8 % (15.3-44.8); MCV 91.3 fL (80-100); MPV 7.6 fL (7.6-11.3); Monocytes % 6.1 % (3.3-12.3); Neutrophils % 55.4 % (41.7-73.7); Platelets 220 thou/uL (152-406); RBC Red Blood Cell Count 4.66 M/uL (3.86-4.86)
[2024-06-24 00:55] LABS: Albumin 3.8 g/dL (3.4-5.0); Albumin/Globulin Ratio 1.1 (1.1-1.8); Anion Gap 6.3 mEq/L (5.0-15.0); Bilirubin Total 0.6 mg/dL (0.2-1.0); Globulin 3.6 g/dL (2.3-3.5); Potassium 3.3 mEq/L (3.5-5.1); Protein, Total 7.4 g/dL (6.4-8.2)
--- NOTE | 2024-06-24 02:00 | EDPHYS ---
Physician Documentation [facility] Name: Suraj Courtney Age: 33 yrs Sex: Female : 1990 Arrival Date: 06/23/2024 Time: 23:34 Bed 6 Private MD: ED Physician Zaid Braxton HPI: 06/23 23:44 This 33 yrs old Female presents to ER via Unassigned with complaints of Abdominal Pain. kb 23:44 Pt is a 33 year old female who presents with diarrhea, decreased appetite and upper abd kb pain that started 3 days ago. Reports nausea that has been resolved with zofran. Denies vomiting, fever. Pt reports these symptoms are similar to previous hernia problem she had before. . 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 - Infectious Disease History:: Denies. - Social history:: Smoking status: Patient denies any tobacco usage or history of. ROS: 06/23 23:44 Constitutional: As per HPI kb Exam: 23:44 Constitutional: This is a well developed, well nourished patient who is awake, alert, kb and in no acute distress. Head/Face: Normocephalic, atraumatic. ENT: Moist Mucous membranes Cardiovascular: Regular rate Respiratory: Respirations even and unlabored. No increased work of breathing. Talking in full sentences Skin: Warm, dry with normal turgor. Normal color. MS/ Extremity: Pulses equal, no cyanosis. Neurovascular intact. Full, normal range of motion. Neuro: Awake and alert, GCS 15, oriented to person, place, time, and situation. Moves all extremities. Normal gait. 23:44 Abdomen/GI: Inspection: abdomen appears normal, Bowel sounds: normal, Palpation: soft, in all quadrants, moderate abdominal tenderness, in the epigastric area and left upper quadrant, Vital Signs: 06/24 00:26 BP 128 / 87; Pulse 74; Resp 16; Pulse Ox 100% on R/A; kd3 01:09 BP 129 / 78; Pulse 72; Resp 16; Pulse Ox 100% on R/A; kd3 01:17 Temp 98(O); kd3 02:07 BP 129 / 78; Pulse 74; Resp 17; Temp 98; Pulse Ox 100% ; Pain 0/10; bm8 02:07 Pain Scale: Adult bm8 Harrison Coma Score: 02:07 Eye Response: spontaneous(4). Motor Response: obeys commands(6). Verbal Response: bm8 oriented(5). Total: 15. MDM: 06/23 23:41 Patient medically screened. kb 23:48 Data reviewed: vital signs, nurses notes. kb 06/24 01:59 ED course: Patient signed out to me with pending imaging. Patient with negative CT scan ec2 of the abdomen and pelvis, reassuring lab work will discharge home and have her follow-up with the GI doctor. Return precautions given. 06/23 23:47 Order name: CBC with Diff; Complete Time: 00:56 kb 06/23 23:47 Order name: CMP; Complete Time: 00:56 kb 06/23 23:47 Order name: Lipase; Complete Time: 00:56 kb 06/23 23:47 Order name: Test, Urine; Complete Time: 00:46 kb 06/23 23:47 Order name: Urinalysis w/ reflexes; Complete Time: 00:53 kb 06/23 23:47 Order name: CT Abd/Pelvis - Without Contrast kb 06/23 23:47 Order name: IV Saline Lock; Complete Time: 00:26 kb 06/23 23:47 Order name: Labs collected and sent; Complete Time: 00:26 kb Administered Medications: 00:25 Drug: Famotidine IVP 20 mg IVP once; dilute with 10 mL 0.9% NaCl; give over 2 minutes kd3 Route: IVP; Site: right antecubital; 02:10 Follow up: Response: No adverse reaction bm8 00:26 Drug: NS 0.9% IV 1000 ml IV at 1 bolus Per protocol; 1000 mL bolus Route: IV; Rate: 1 kd3 bolus; Site: right antecubital; 02:09 Follow up: Response: No adverse reaction; IV Status: Completed infusion; IV Intake: bm8 1000ml 00:26 Drug: Ondansetron IVP 4 mg IVP once; over 2 minutes Route: IVP; Site: right antecubital;kd3 02:10 Follow up: Response: No adverse reaction bm8 00:44 Drug: Ketorolac IVP 15 mg IVP once Route: IVP; Site: right antecubital; kd3 01:17 Follow up: Response: No adverse reaction; Pain is decreased kd3 Disposition: 01:59 I agree with the assessment and plan of care. ec2 Disposition Summary: 06/24/24 01:59 Discharge Ordered Notes: Location: Home ec2 Condition: Stable ec2 Diagnosis - Acute gastritis ec2 Followup: ec2 - With: Mohit Ortiz MD - When: - Reason: Recheck today's complaints Discharge Instructions: - Discharge Summary Sheet ec2 - Gastritis, Adult, [id number] ec2 Forms: - Medication Reconciliation Form ec2 - Antibiotic Education ec2 - Prescription Opioid Use ec2 - Patient Portal Instructions ec2 - Leadership Thank You Letter ec2 Prescriptions: - Pepcid 20 mg Oral Tablet - take 1 tablet ORAL route once daily; 20 tablet; Refills: 0, Product Selection ec2 Permitted Signatures: Dispatcher [employer] EDChristine Johns, ELIZ-Clarice WELLINGTON-Chayito Clifton RN RN kd3 Zaid Braxton MD MD ec2 Elvin Chu RN bm8 Corrections: (The following items were deleted from the chart) 06/23 23:47 23:44 Pt is a 33 year old female who presents with diarrhea and upper abd pain that kb started 3 days ago. Reports nausea that has been resolved with zofran. Denies vomiting, fever. . kb 23:48 23:48 CBC+H.LAB.BRZ ordered. EDMS EDMS 23:48 23:48 COMPREHENSIVE METABOLIC PANEL+C.LAB.BRZ ordered. EDMS EDMS 23:48 23:48 LIPASE+C.LAB.BRZ ordered. EDMS EDMS 23:48 23:48 Test, Urine+UC.LAB.BRZ ordered. EDMS EDMS 23:48 23:48 Urinalysis+U.LAB.BRZ ordered. EDMS EDMS 23:48 23:44 Pt is a 33 year old female who presents with diarrhea and upper abd pain that kb started 3 days ago. Reports nausea that has been resolved with zofran. Denies vomiting, fever. Pt reports these symptoms are similar to previous hernia problem she had before. kb
--- NOTE | 2024-06-24 02:00 | ER ---
Nurse's Notes [facility] Name: Suraj Courtney Age: 33 yrs Sex: Female : 1990 Arrival Date: 06/23/2024 Time: 23:34 Bed 6 Private MD: Diagnosis: Acute gastritis Presentation: 06/23 23:40 Chief complaint: Patient states: I have severe upper abdominal pain. I just want to [facility] find out what's wrong with me. I feel like i have another hernia. 23:40 Coronavirus screen: Vaccine status:. Ebola Screen: No symptoms or risks identified at [facility] this time. Initial Sepsis Screen: Does the patient meet any 2 criteria? No. Patient's initial sepsis screen is negative. Does the patient have a suspected source of infection? No. Patient's initial sepsis screen is negative. Risk Assessment: Do you want to hurt yourself or someone else? Patient reports no desire to harm self or others. Onset of symptoms was June 23, 2024. 23:40 Acuity: SHAW 3 3 06/24 01:09 Method Of Arrival: Ambulatory 3 Triage Assessment: 06/23 23:40 General: Appears in no apparent distress. Behavior is calm, cooperative. 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 - Infectious Disease History:: Denies. - Social history:: Smoking status: Patient denies any tobacco usage or history of. Screenin:00 [facility] ED Fall Risk Assessment (Adult) History of falling in the last 3 months, bm8 including since admission No falls in past 3 months (0 pts) Confusion or Disorientation No (0 pts) Intoxicated or Sedated No (0 pts) Impaired Gait No (0 pts) Mobility Assist Device Used No (0 pt) Altered Elimination No (0 pt) Score/Fall Risk Level 0 - 2 = Low Risk Oriented to surroundings, Maintained a safe environment, Educated pt \T\ family on fall prevention, incl call for assistance when getting out of bed, Assessed \T\ reinforced patient's understanding of fall precautions, Hourly rounding (assess needs \T\ fall precautionary measures) done, Used ambulatory aids as needed (educated on \T\ assisted with). 01:00 Abuse screen: Denies threats or abuse. Nutritional screening: No deficits noted. bm8 Tuberculosis screening: No symptoms or risk factors identified. Assessment: 00:09 General: Pt is in CT . kd3 00:27 General: Appears in no apparent distress. Pain: Complains of pain in left upper kd3 quadrant and epigastric area. Neuro: Level of Consciousness is awake, alert, obeys commands, Oriented to person, place, time, situation. Respiratory: Airway is patent Trachea midline Respiratory effort is even, unlabored, Respiratory pattern is regular, symmetrical. GI: Bowel sounds present X 4 quads. Abdomen is tender to palpation in left upper quadrant and epigastric area. 00:44 General: Pt was administered pain medication and notified that this RN will return in kd3 30 minutes to reassess the effectiveness of the pain medication. . 01:17 Reassessment: Patient and/or family updated on plan of care and expected duration. Pain kd3 level reassessed. Patient is alert, oriented x 3, equal unlabored respirations, skin warm/dry/pink. Patient states feeling better. Patient states symptoms have improved. 02:07 Reassessment: Patient appears in no apparent distress at this time. Patient and/or bm8 family updated on plan of care and expected duration. Pain level reassessed. Patient is alert, oriented x 3, equal unlabored respirations, skin warm/dry/pink. Patient denies pain at this time. Patient states feeling better. Patient states symptoms have improved. Vital Signs: 00:26 BP 128 / 87; Pulse 74; Resp 16; Pulse Ox 100% on R/A; kd3 01:09 BP 129 / 78; Pulse 72; Resp 16; Pulse Ox 100% on R/A; kd3 01:17 Temp 98(O); kd3 02:07 BP 129 / 78; Pulse 74; Resp 17; Temp 98; Pulse Ox 100% ; Pain 0/10; bm8 02:07 Pain Scale: Adult bm8 Aury Coma Score: 02:07 Eye Response: spontaneous(4). Motor Response: obeys commands(6). Verbal Response: bm8 oriented(5). Total: 15. ED Course: 06/23 23:40 Patient arrived in ED. gm2 23:40 Arm band placed on right wrist. kd3 23:41 [facility] Solares FNP-C [facility]. kb 23:41 Zaid Braxton MD is Attending Physician. kb 06/24 00:08 Chayito Lopez RN is Primary Nurse. kd3 00:09 CT Abd/Pelvis - Without Contrast In Process Unspecified. EDMS 00:25 Inserted saline lock: 20 gauge in right antecubital area, using aseptic technique. kd3 Blood collected. Flushed with 10 mL NS. 00:26 CBC with Diff Sent. kd3 00:26 CMP Sent. kd3 00:26 Lipase Sent. kd3 00:26 Test, Urine Sent. kd3 00:26 Urinalysis w/ reflexes Sent. kd3 00:26 Initial lab(s) drawn, by me, sent to lab. Urine collected: clean catch specimen, clear, kd3 ham colored. 01:00 Patient has correct armband on for positive identification. Bed in low position. Call bm8 light in reach. Side rails up X 1. Adult w/ patient. Client placed on continuous cardiac and pulse oximetry monitoring. NIBP monitoring applied. storage administrator on. Pulse ox on. NIBP on. Door closed. Noise minimized. Warm blanket given. Pillow given. Verbal reassurance given. Head of bed lowered. 01:10 Triage completed. kd3 01:59 Mohit Ortiz MD is Referral Physician. ec2 02:08 No provider procedures requiring assistance completed. IV discontinued, intact, bm8 bleeding controlled, No redness/swelling at site. Pressure dressing applied. 02:08 Provided Education on: post er care. bm8 Administered Medications: 00:25 Drug: Famotidine IVP 20 mg IVP once; dilute with 10 mL 0.9% NaCl; give over 2 minutes kd3 Route: IVP; Site: right antecubital; 02:10 Follow up: Response: No adverse reaction bm8 00:26 Drug: NS 0.9% IV 1000 ml IV at 1 bolus Per protocol; 1000 mL bolus Route: IV; Rate: 1 kd3 bolus; Site: right antecubital; 02:09 Follow up: Response: No adverse reaction; IV Status: Completed infusion; IV Intake: bm8 1000ml 00:26 Drug: Ondansetron IVP 4 mg IVP once; over 2 minutes Route: IVP; Site: right antecubital;kd3 02:10 Follow up: Response: No adverse reaction bm8 00:44 Drug: Ketorolac IVP 15 mg IVP once Route: IVP; Site: right antecubital; kd3 01:17 Follow up: Response: No adverse reaction; Pain is decreased kd3 Medication: 02:07 VIS not applicable for this client. bm8 Intake: 02:09 IV: 1000ml; Total: 1000ml. bm8 Outcome: 01:59 Discharge ordered by . ec2 02:08 Discharged to home ambulatory, bm8 02:08 Condition: stable 02:08 Discharge instructions given to patient, Instructed on discharge instructions, follow up and referral plans. no drinking with medication, no driving heavy equipment, medication usage, safety practices, Demonstrated understanding of instructions, follow-up care, medications, Prescriptions given X 1, 02:10 Patient left the ED. bm8 Signatures: Dispatcher [employer] Christine Singh, AIRPORT DRIVER-C AIRPORT DRIVER-Chayito Clifton RN RN kd3 Zaid Braxton MD MD ec2 Katrina Breaux Brad RN RN bm8
[2024-06-24 11:07] VITALS: O2SAT 100
[2024-06-24 11:08] VITALS: BP 129/78; TEMP 98
--- NOTE | 2024-06-24 23:18 | RAD REPORT ---
EXAM DESCRIPTION: CT - Abdomen Pelvis Wo Contrast - 06/24/2024 6:44 am CLINICAL HISTORY: 33 years, Female, Abdominal pain. COMPARISON: CT Abdomen pelvis 04/12/2024. TECHNIQUE: Noncontrast images of the abdomen and pelvis were performed from the lung bases to the is chial tuberosities. In addition multiplanar reformats in the coronal and sagittal plane were obtained and reviewed. An individualized dose optimization technique, Automated Exposure Control, was utilized for the perfo rmed procedure. FINDINGS: The lack of IV contrast limits evaluation of solid organs, subtle lesions cannot be exclud ed. Lung bases: The lung bases demonstrate to be clear. Liver: Grossly the unopacified liver demonstrates to be normal, no focal lesions are identified. Gallbladder: Surgical clips within the gallbladder fossa corresponding to previous cholecystectomy. N o significant biliary duct dilatation. Adrenal glands: Grossly the unopacified adrenal glands demonstrate to be normal. Pancreas: Grossly the unopacified pancreas demonstrate to be normal Spleen: The spleen demonstrate to be normal. Kidneys: Grossly the unopacified kidneys demonstrate to be within normal limits. There is no eviden ce for nephrolithiasis and/or hydronephrosis. GI: Grossly the unopacified stomach, small bowel and large bowel demonstrate to be within normal limi ts. No evidence for bowel dilatation and/or free air. Clips within the right lower quadrant/cecum cor respond to previous appendectomy. The left-sided colon demonstrate to be decompressed with no gross a bnormalities. : The urinary bladder demonstrate to be unremarkable. Genitalia: The uterus demonstrate to be within normal limits. There are normal adnexal structures. Abdominal aorta: The aorta demonstrate demonstrate to be within normal limits. Retroperitoneum: There is no retroperitoneal lymphadenopathy. There is no evidence for ascites and/or abnormal fluid collections. Bones: The bony structures demonstrate to be within normal limits. No evidence for compression deform ity and/or significant skeletal lesions. Soft tissues: The rest of the soft tissue and bony structures are within normal limits. IMPRESSION: No evidence for nephrolithiasis and/or hydronephrosis. Status post cholecystectomy and appendectomy. Electronically signed by: Chevy Hagen MD 06/24/2024 12:55 AM CDT RP Due to temporary technical issues with the PACS/Fluency reporting system, reports are being signed by the in house radiologists without review as a courtesy to insure prompt reporting. The interpreting radiologist is fully responsible for the content of the report.
== END 2024-06-24 02:10 | disposition home or self-care (01) ==
LOC: ER 23:34
DX: K29.00 Acute gastritis without bleeding (principal)
CPT/HCPCS: 85025; 81001; 36415; 81025; 83690; 80053; 74176; J2405; J7030; 96361; 96374; 96375; 99285

== ENCOUNTER 2024-07-01 18:03 | Emergency (ER) | payer OTHER ==
--- OUTSIDE RECORDS SUMMARY | 2024-07-01 18:07 | XMS REPORT | Continuity of Care Document ---
Author Name Unknown Address [address] [place] [address] [facility] Address [address] [place] [address] Care Team Providers Care Gis Web Developer Name Role Phone Brittney Liu Primary Care Physician MARKO SCOTT Attending Clinician Unavailable RADHA KELLOGG Attending Clinician Unavailable Graciela Urbano Attending Clinician + YUN RAMIREZ Attending Clinician Unavailable NOEL LEON Attending Clinician Unavailable VESNA WOLFF Attending Clinician Unavailniecy estes LAB90 Attending Clinician Unavailable AMILCAR FIELD Attending Clinician UnavailCharles Shelton MD Attending Clinician [phone] CHARLES JAMES Attending Clinician UnavailEmber Triplett Attending Clinician [phone] EMBER FRANKS Attending Clinician Unavailable Doctor Unassigned, [place] Attending Clinician U navailable CORNELIUS ZAVALETA Attending Clinician Unavailab Cornelius Garcia Attending Clinician + [phone] DAVE BERMAN Attending Clinician Unavailable GRACIELA BURKS Attending Clinician Unavail able JAMAAL EPPS Attending [...] Admitting Clinician Unavailable JOHN MERCER Admitting Clinician Unavailniecy e Payers Payer Name Policy Type Policy Number Effective Date Expirati on Date Source [facility] [employer] [id number] 2018 00:00:00 [facility] HER[facility] ARREOLA COPAY FOCUS 9 [id number] 2023 00:00:[address] [facility] [id number] 2023 00:00:00 [employer] NICA LIMA 5 [facility] 94 ON 9 [id number] 2023 00:00:00 Problems Condition Name Condition Details Condition Category Status Onset Date Resolution Date Last Treatment Date Treating Clinician Comments Source Encounter for surveillan ce of contracept saman, unspecifie d contracept haider Encounter for surveillan ce of contracept saman, unspecifie d contracept haider Disease Active 05-10 00:00: 00 [facility] History of bilateral tubal ligation History of bilateral tubal ligation Disease Active 05-10 00:00: 00 [facility] Overweight (BMI 25.0-29.9) Overweight (BMI 25.0-29.9) Disease Active 6-16 00:00: 00 [facility] S/P section S/P section Disease Active 4-06 00:00: 00 [facility] contractio ns contractio ns Disease Active 3-29 00:00: 00 [facility] History of delivery History of delivery Disease Active 2019-11 00:00: 00 [facility] History of cholecyste ctomy History of cholecyste ctomy Disease Active 2019-11 00:00: 00 [facility] Cholelithi asis affecting in second trimester, antepartum Cholelithi asis affecting in second trimester, antepartum Disease Active 2019-1118 00:00: 00 [facility] Gallstones Gallstones Disease Active 2019-11 00:00: 00 Overview: Formattin g of this note might be different from the original. Added automatic ally from request for surgery [id number] [facility] Nausea and vomiting in Nausea and vomiting in Disease Active 2019-11 017 00:00: 00 [facility] 9 weeks gestation of 9 weeks gestation of Disease Active 2019-11 017 00:00: 00 [facility] Hyperemesi s gravidarum before end of 22 week gestation with dehydratio n Hyperemesi s gravidarum before end of 22 week gestation with dehydratio n Disease Active 2019-11 0 00:00: 00 [facility] Obesity (BMI 30-39.9) Obesity (BMI 30-39.9) Disease Active 2019-11 0-07 00:00: 00 [facility] Hyperemesi s gravidarum Hyperemesi s gravidarum Disease Active 2019-11 0 00:00: 00 [facility] Desires (vaginal after ) trial Desires (vaginal after ) trial Disease Active 9-09 00:00: 00 [facility] Special screening examinatio n for viral disease Special screening examinatio n for viral disease Disease Active 9-09 00:00: 00 [facility] care and examinatio n of lactating mother care and examinatio n of lactating mother Disease Active 2-14 00:00: 00 [facility] Previous section complicati ng Previous section complicati ng Disease Active 1-26 00:00: 00 [facility] Atypical squamous cells of undetermin ed significan ce (ASCUS) on Papanicola ou smear of cervix Atypical squamous cells of undetermin ed significan ce (ASCUS) on Papanicola ou smear of cervix Disease Active 1-24 00:00: 00 [facility] 33 weeks gestation of 33 weeks gestation of Disease Active 2017-11 2-29 00:00: 00 [facility] Nausea and vomiting during Nausea and vomiting during Disease Active 8-22 00:00: 00 [facility] BMI 32.0-32.9, adult BMI 32.0-32.9, adult Disease Active 7-07 00:00: 00 [facility] Maternal varicella, non-immune Maternal varicella, non-immune Disease Active 05-21 00:00: 00 Overview: Formattin g of this note might be different from the original. Address pp [facility] Rubella non-immune status, antepartum Rubella non-immune status, antepartum Disease Active 05-21 00:00: 00 Overview: Formattin g of this note might be different from the original. Address pp [facility] Supervisio n of high risk in third trimester Supervisio n of high risk in third trimester Disease Active 05-20 00:00: 00 [facility] Multiparit y Multiparit y Disease Active 05-20 00:00: 00 [facility] Well woman exam Well woman exam Disease Active 7-11 00:00: 00 [facility] Obesity in Obesity in Disease Active 3-03 00:00: 00 Overview: Formattin g of this note might be different from the original. 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 Encounter for IUD removal and reinsertio n Encounter for IUD removal and reinsertio n Disease Active 2- 00:00: 00 [facility] ASCUS on Pap smear ASCUS on Pap smear Disease Active - 00:00: 00 [facility] 32 weeks gestation of 32 weeks gestation of Disease Resolve d 2020-0 3-28 00:00: 00 2021-03-22 00:00:00 2021-03-22 13:56:51 [facility] Threatened labor, third trimester Threatened labor, third trimester Disease Resolve d 2020-0 3-28 00:00: 00 2021-03-22 00:00:00 2021-03-22 13:56:51 [facility] 31 weeks gestation of 31 weeks gestation of Disease Resolve d 0 3-17 00:00: 00 2021-02-25 00:00:00 2021-02-25 15:14:05 [facility] 8 weeks gestation of 8 weeks gestation of Disease Resolve d 2019-11 0-06 00:00: 00 2021-02-25 00:00:00 2021-02-25 15:14:08 [facility] Nausea Nausea Disease Resolve d 2017-11 00:00: 00 2020-08-30 00:00:00 2020-08-30 22:27:26 [facility] Trichomona l vaginitis during in second trimester Trichomona l vaginitis during in second trimester Disease Resolve d 2017-11 00:00: 00 2019-02-04 00:00:00 2019-02-04 12:56:53 [facility] 37 weeks gestation of 37 weeks gestation of Disease Resolve d 24 00:00: 00 2019-01-08 00:00:00 2019-01-08 14:14:59 [facility] Dodge Hick's contractio n Dodge Hick's contractio n Disease Resolve d -18 00:00: 2019-01-08 00:00:00 2019-01-08 14:14:30 [facility] Abnormal maternal glucose tolerance, antepartum Abnormal maternal glucose tolerance, antepartum Disease Resolve d 1-17 00:00: 00 2019-01-08 00:00:00 2019-01-08 14:14:55 [facility] Family history of deafness Family history of deafness Disease Resolve d 7-03 00:00: 00 2019-01-08 00:00:00 2019-01-08 14:14:53 [facility] History of delivery History of delivery Disease Resolve d 6-26 00:00: 00 2019-01-08 00:00:00 2019-01-08 14:14:37 [facility] contractio ns contractio ns Disease Resolve d 2017-11 2 00:00: 00 2018-12-18 00:00:00 2018-12-18 17:48:59 [facility] Hyperemesi s gravidarum Hyperemesi s gravidarum Disease Resolve d 707 00:00: 00 2018-12-18 00:00:00 2018-12-18 17:48:49 [facility] 15 weeks gestation of 15 weeks gestation of Disease Resolve d 823 00:00: 00 2018-09-25 00:00:00 2018-09-25 13:28:19 [facility] 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 Irregular menstrual cycle Irregular menstrual cycle Disease Resolve d 01-25 00:00: 00 2018-09-25 00:00:00 2018-09-25 13:28:26 [facility] 38 weeks gestation of 38 weeks gestation of Disease Resolve d 07-19 00:00: 00 2018-07-21 00:00:00 2018-07-21 10:54:06 [facility] Contracept haider management Contracept haider management Disease Resolve d 01-25 00:00: 00 2018-05-20 00:00:00 2022-06-10 00:34:50 [facility] Breast tenderness in female Breast tenderness in female Disease Resolve d 01-25 00:00: 00 2018-05-20 00:00:00 2018-05-20 15:18:35 [facility] Request for sterilizat ion Request for sterilizat ion Disease Resolve d 05-17 00:00: 00 2017-11-27 00:00:00 2017-11-27 14:19:32 [facility] Right knee pain Right knee pain Disease Resolve d 2014-11 00:00: 00 2016-06-04 00:00:00 2016-06-04 14:49:01 [facility] Other malaise and fatigue Other malaise and fatigue Disease Resolve d 01-25 00:00: 00 2016-06-04 00:00:00 2016-06-04 14:48:55 [facility] Not immune to rubella Not immune to rubella Disease Resolve d 04-16 00:00: 00 2016-06-04 00:00:00 2022-06-10 00:30:26 [facility] Allergies, Adverse Reactions, Alerts Allergy Name Allergy Type Status Severity Reaction(s) Onset Date Inactive Date Treating Clinician Comments Source Ibuprofe n Propensi ty to adverse reaction s Active Hives 12-17 00:00: 00 Di Seybold - Externa l [place] Propensi ty to adverse reaction s Active Swelling 12-17 00:00: 00 Di Jarvisold - Externa l MORPHINE DRUG INGREDI Active Hives 16 00:00: 00 [facility] Morphine Propensi ty to adverse reaction s Active Hives 0 16 00:00: 00 [facility] Sodium Citrate (Bulk) Propensi ty to adverse reaction s Active Nausea and/or Vomiting 0 24 00:00: 00 [facility] SODIUM CITRATE (BULK) DRUG Active N/V 0 24 00:00: 00 [facility] Ibuprofe n Propensi ty to adverse reaction s Active Hives 0 04-15 00:00: 00 [facility] [place] Propensi ty to adverse reaction s Active Hives 0 04-15 00:00: 00 [facility] IBUPROFE N DRUG INGREDI Active Hives 0 04-15 00:00: 00 [facility] ORANGE DRUG Active Hives 0 04-15 00:00: 00 [facility] Social History Social Habit Start Date Stop Date Quantity Comments Source History SDOH Alcohol Frequency [facility] History SDOH Alcohol Std Drinks [facility] History SDOH Alcohol Binge [facility] ASSERTION [facility] Sexual orientation Mary Carmen Soares - External Alcoholic beverage intake 2023-12-17 00:00:00 2023-12-17 00:00:00 0 /d [facility] Tobacco use and exposure 2023-12-17 00:00:00 2023-12-17 00:00:00 Smokeless tobacco non-user Di Soares - External History of Social function 2023-12-17 00:00:00 2023-12-17 00:00:00 Di Soares - External Exposure to SARS-CoV-2 (event) 2022-03-17 00:00:00 2022-03-27 14:04:00 Not sure [facility] Alcohol intake 2020-10-14 00:00:00 2020-10-14 00:00:00 0 /d [facility] Alcohol Comment 2014-04-15 00:00:00 2014-04-15 00:00:00 elías [facility] Sex Assigned At 1990 00:00:00 1990 00:00:00 Di Gallardo Smoking Status Start Date Stop Date Source Never smoked tobacco Di Gallardo Medications Ordered Medication Name Filled Medication Name Start Date Stop Date Current Medication? Ordering Clinician Indication Dosage Frequency Signature (SIG) Comments Components Source Ondansetron HCl (Zofran) 4 MG oral Tablet 12-17 15:01: 49 12-17 00:00 :00 No 4mg [id number] 3D Take 1 tablet (4 mg total) by mouth every 8 hours as needed for nausea. Di Rizzoa l Ondansetron HCl (Zofran) 4 MG oral Tablet 12-17 00:00: 00 Yes [id number] 4mg [id number] 3D Take 1 tablet (4 mg total) by mouth every 8 hours as needed for nausea. Di aldridge No known medications 03-27 14:11: [address] [facility] docusate 100 mg capsule 2019-11 00:00: 00 02-15 00:00 :00 No [id number] 100mg Take 1 capsule by mouth daily. May substitute for what is in stock and covered by patient plan [facility] acetaminoph en 325 mg Cap 2019-11 00:00: 00 02-15 00:00 :00 No [id number] 2{tbl} Take 2 tablets by mouth every 6 (six) hours. [facility] doxylamine- pyridoxine, vit B6, (DICLEGIS) 10-10 mg per tablet 2019-11 0-13 00:00: 00 02-28 00:00 :00 No [id number] 2{tbl} Take 2 tablets by mouth at bedtime. [facility] proCHLORper azine 10 mg tablet 2019-11 0-08 00:00: 00 02-02 00:00 :00 No [id number] 10mg Take 1 tablet by mouth every 6 (six) hours as needed (for nausea and vomiting unresponsi ve to doxylamine /pyridoxin e). [facility] vit 33-iron-fol ic-dha (SELECT-OB + DHA) 29 mg iron-1 mg -250 mg combo pack 9-09 00:00: 00 02-15 00:00 :00 No [id number] 1{packe t} Take 1 Packet by mouth daily. [facility] Immunizations Ordered Immunization Name Filled Immunization Name Date Status Comments Source TDAP 2021-01-18 00:00:00 Completed [facility] TDAP 2021-01-18 00:00:00 Completed [facility] Varicella (varivax)(chicken pox) 2018-12-20 00:00:00 Completed [facility] Varicella (varivax)(chicken pox) 2018-12-20 00:00:00 Completed [facility] TDAP (ADACEL) VACCINE 2018-12-11 00:00:00 Completed [facility] TDAP (ADACEL) VACCINE 2018-12-11 00:00:00 Completed [facility] HPV9 2016-06-04 00:00:00 Completed [facility] HPV9 2016-06-04 00:00:00 Completed [facility] TDAP 2015-04-06 00:00:00 Completed [facility] TDAP 2015-04-06 00:00:00 Completed [facility] Td 2004-11-25 00:00:00 Completed [facility] Tetanus/Diptheria 2004-11-25 00:00:00 Completed [facility] Td 2004-11-25 00:00:00 Completed [facility] Tetanus/Diptheria 2004-11-25 00:00:00 Completed [facility] TD, NOS Unknown Completed [facility] TDAP Unknown Completed [facility] HPV9 Unknown Completed [facility] TDAP (ADACEL) VACCINE Unknown Completed [facility] Varicella (varivax)(chicken pox) Unknown Completed [facility]heria [facility] NOS [facility] Com[facility] TDAP Unknown Completed [facility] HPV9 Unknown Completed [facility] TDAP (ADACEL) VACCINE Unknown Completed [facility] Varicella (varivax)(chicken pox) Unknown Completed [facility] TDAP Unknown Completed [facility] Tetanus/Diptheria Unknown Completed [facility] Vital Signs Vital Name Observation Time Observation Value Comments S ource Systolic blood pressure 2023-12-17 20:22:00 118 mm[Hg] Di Seybo ld - External Diastolic blood pressure 2023-12-17 20:22:00 68 mm[Hg] Di Seybo ld - External Heart rate 2023-12-17 20:22:00 80 /min Kel y Seybold - External Body temperature 2023-12-17 20:22:00 36.67 Roxann Di Seybold - External Respiratory rate 2023-12-17 20:22:00 18 /min Di Seybold - External Body height 2023-12-17 20:22:00 162.6 cm Ayleen ey Seybold - External Body weight 2023-12-17 20:22:00 87.544 kg Ayleen ey Seybold - External BMI 2023-12-17 20:22:00 33.13 kg/m2 Ayleen ey Seybold - External Oxygen saturation in Arterial blood by Pulse oximetry 2023-12-17 20:22:00 98 /min Di Seybo ld - External Systolic blood pressure 2022-03-27 19:29:00 122 mm[Hg] [facility] Diastolic blood pressure 2022-03-27 19:29:00 80 mm[Hg] [facility] Heart rate 2022-03-27 19:29:00 105 /min Unive [facility] Body height 2022-03-27 19:29:00 162.6 cm [facility] Body weight 2022-03-27 19:29:00 87.317 kg [facility] BMI 2022-03-27 19:29:00 33.04 kg/m2 [facility] Encounters Start Date/Time End Date/Time Encounter Type Admission Type Attending Clinicians Care Facility Care Department Encounter ID Source 2021-09-24 10:31:27 Outpatient [facility] [id number] [facility] [place] 2021-09-24 09:02:29 Outpatient [facility] [id number] [facility] 2021-09-24 06:47:18 Emergency [facility] [id number] [facility] [place] 2021-09-24 06:38:20 [facility]patient [facility] [id number] [facility] 2021-09-24 05:25:21 Outpatient [facility] [id number] [facility] 2021-09-24 04:28:40 Outpatient [facility] [id number] [facility] 2021-09-24 04:28:31 Emergency [facility] [id number] [facility] 2021-09-24 01:10:45 Outpatient [facility] [id number] [facility] 2021-09-23 21:07:50 Emergency [facility] [id number] [facility] [place] 2021-09-23 07:29:02 Emergency [facility] [id number] [facility] [place] 2021-09-23 06:08:13 Outpatient [facility] [id number] [facility] [place] 2021-09-22 23:31:44 Outpatient [facility] [id number] [facility] [place] 2021-09-22 23:30:48 Emergency [facility] [id number] [facility] [place] 2021-09-22 22:58:12 Emergency [facility] [id number] [facility] [place] [facility] [place] 2021-09-22 21:53:49 Outpatient [facility] [id number] [facility] [place] 2021-09-22 21:28:28 Outpatient [facility] [id number] [facility] 2021-09-22 20:56:44 [facility] [id number] [facility] 2024-07-09 10:00:00 2024-07-09 10:00:00 [id number]24-[facility]-07 10:15:00 2024-07-07 10:15:00 Outpatient Lauren BESS RADHA [facility] [id number] [facility] 2024-07-01 00:00:00 2024-07-01 16:22:57 Telephone Graciela Burks [facility] [id number] [facility] 2024-03-04 15:30:00 2024-03-04 15:30:00 Outpatient RAMIREZYUN [id number] Di kim 2024-02-25 00:00:00 2024-02-25 00:00:00 Outpatient RAMIREZYUN [id number] [facility] 2024-02-22 00:00:00 2024-02-22 00:00:00 Outpatient LEONNOEL SOLO [id number] Di ybkim 2024-02-20 12:30:00 2024-02-20 12:30:00 Outpatient VESNA WOLFF [id number] Di ybkim 2024-02-18 07:45:00 2024-02-18 07:45:00 Outpatient RAMIREZYUN Vergara [id number] Di kim 2024-02-18 00:00:00 2024-02-18 00:00:00 [facility] [id number] [facility] 2024-02-18 00:00:00 2024-02-18 00:00:00 Outpatient RAMIREZYUN [id number] Di Seybkim 2024-02-11 13:05:00 2024-02-11 13:05:00 Outpatient LAB90 DI KWOK [id number] Di Seybkim 2024-02-11 13:00:00 2024-02-11 13:00:00 Outpatient VESNA WOLFF [id number] Di Seybold 2024-02-11 00:00:00 2024-02-11 00:00:00 Outpatient RAMIREZ, YUN KWOK [id number] Di Seybold 2024-02-10 12:30:00 2024-02-10 12:30:00 Outpatient VESNA WOLFF [id number] Di Seybold 2024-02-06 00:00:00 2024-02-06 00:00:00 Outpatient RAMIREZ, YUN KWOK [id number] Di Seybold 2024-02-06 00:00:00 2024-02-06 00:00:00 Outpatient DI KWOK [id number] Di Seybold 2024-01-29 15:15:00 2024-01-29 15:15:00 Outpatient RAMIREZ, YUN KWOK [id number] [facility] 2024-01-23 15:20:00 2024-01-23 15:20:00 Outpatient DI DI [id number] [facility] 2024-01-23 00:00:00 2024-01-23 00:00:00 Outpatient RAMIREZ, YUN KWOK [id number] [facility] 2024-01-23 00:00:00 2024-01-23 00:00:00 Outpatient RAMIREZ, YUN KWOK [id number] [facility] 2024-01-21 00:00:00 2024-01-21 00:00:00 Outpatient RAMIREZ, YUN KWOK DI [id number] [facility] 2024-01-01 15:45:00 2024-01-01 15:45:00 Outpatient RAMIREZ, YUN KWOK DI [id number] Di Seybold 2023-12-26 00:00:00 2023-12-26 00:00:00 Outpatient AMILCAR FIELD [id number] Di Seybold 2023-12-17 14:30:00 2023-12-17 14:30:00 Outpatient AMILCAR FIELD [id number] Di Seybold 2023-02-07 16:31:26 2023-02-07 16:31:26 Outpatient [facility] [id number] José Luis Britton 2022-03-28 00:00:00 2022-03-28 00:00:00 Telephone James, Charles L [facility] 1..840.114 [id number] [facility] 2022-03-27 14:30:00 2022-03-27 23:59:00 Outpatient R JACOB CHARLES [facility] [id number] [facility] 2022-03-27 14:30:00 2022-03-27 15:00:00 Office Visit Ember Franks [facility] 1..840.114 [id number] [facility] 2022-03-27 14:30:00 2022-03-27 14:30:00 Outpatient EMBER EPPS [facility] [id number] [facility] 2022-03-27 00:00:00 2022-03-27 00:00:00 Orders Only Doctor Unassigned, [place] [facility] 1..840.114 [id number] [facility] 2021-05-10 14:30:00 2021-05-10 14:30:00 Outpatient CORNELIUS HERNANDEZ [facility] [id number] [facility] 2021-03-22 13:46:41 2021-03-22 14:24:31 Routine Visit Cornelius Zavlaeta [facility] 1..840.114 [id number] 2021-03-22 14:00:00 2021-03-22 14:00:00 Outpatient CORNELIUS HERNANDEZ [facility] [id number] [facility] 2021-03-06 11:00:00 2021-03-06 11:00:00 Outpatient R ANTONELLA DAVE [facility] [id number] [facility] 2021-03-01 12:45:00 2021-03-01 12:45:00 Outpatient Lauren [facility]ACORNELIUS [facility] [id number] [facility] 2021-02-19 15:41:00 2021-02-19 15:41:00 Outpatient P CORNELIUS ZAVALETA RUST JOANN [id number] [facility] 2021-02-15 14:30:00 2021-02-15 14:30:00 Outpatient Lauren [facility]ELIUS [facility] [id number] [facility] 2021-02-01 15:15:00 2021-02-01 15:15:00 Outpatient R CORNELIUS ZAVALETA [facility] [id number] [facility] 2021-01-18 13:45:00 2021-01-18 13:45:00 Outpatient CORNELIUS HERNANDEZ [facility] [id number] [facility] 2021-01-06 09:45:00 2021-01-06 09:45:00 Outpatient R [facility]AV[facility]AC[facility]ELIUS [facility] [id number] [facility] 2020-12-23 11:00:00 2020-12-23 11:00:00 Outpatient R GRACIELA BURKS [facility] [id number] [facility] 2020-12-20 10:45:00 2020-12-20 10:45:00 Outpatient R GRACIELA BURKS [facility] [id number] [facility] 2020-12-20 09:45:00 2020-12-20 09:45:00 Outpatient R CORNELIUS ZAVALETA [facility] [id number] [facility] 2020-12-13 14:15:00 2020-12-13 14:15:00 Outpatient P HELGA CONTISHEBAJAMAAL VAZQUEZ [facility] [id number] [facility] 2020-11-29 14:30:00 2020-11-29 14:30:00 Outpatient R [facility] [id number] [facility] 2020-11-22 14:00:00 2020-11-22 14:00:00 Outpatient R GRACIELA BURKS [facility] [id number] [facility] 2020-11-15 13:00:00 2020-11-15 13:00:00 Outpatient P CHRISTINA GOMEZ [facility] [id number] [facility] 2020-11-08 15:00:00 2020-11-08 15:00:00 Outpatient P EDYTA FRANCIS SANGEETA [facility] [id number] [facility] 2020-10-31 15:15:00 2020-10-31 15:15:00 Outpatient P STEVE GRANADOS SHANNON [facility] [id number] [facility] 2020-10-24 13:45:00 2020-10-24 13:45:00 Outpatient R BRITTMARITZAGRACIELA [facility] [id number] [facility] 2020-10-14 00:00:00 2020-10-14 00:00:00 Case Management [place] Laura Mcdermott [facility] [id number] [facility] 2020-10-06 12:45:00 2020-10-06 12:45:00 Outpatient R CORNELIUS ZAVALETA [facility] [id number] [facility] 2020-09-08 10:45:00 2020-09-08 10:45:00 Outpatient R CORNELIUS ZAVALETA [facility] [id number] [facility] 2020-08-31 12:45:00 2020-08-31 12:45:00 Outpatient R CORNELIUS ZAVALETA [facility] [id number] [facility] 2020-08-24 13:30:00 2020-08-24 13:30:00 Outpatient P [facility] [id number] [facility] 2020-08-03 12:45:00 2020-08-03 12:45:00 Outpatient CORNELIUS HERNANDEZ [facility] [id number] [facility] 2020-07-12 14:15:00 2020-07-12 14:15:00 [facility] [id number] [facility] 2020-03-21 15:00:00 2020-03-21 15:00:00 Out[facility] [id number] [facility] Notes Date/Time Note Provider Source 2024-07-01 16:18:05 Spoke with patient and she had [employer] and we are not in network with her plan. [facility] 2024-07-01 13:56:34 Suraj Fuentes is a 33 year old female calling requesting to talk with an nurse having problems with an vagina lip was swollen x this morning. Please contact patient at [phone] (home) Raya [facility] 2023-12-17 14:25:16 Follow-up Hospitalization (Hospital follow up for umbilical hernia) Nya Erickson [facility]
--- NOTE | 2024-07-01 21:06 | EDPHYS ---
Physician Documentation [facility] Name: Suraj Courtney Age: 33 yrs Sex: Female : 1990 Arrival Date: 07/01/2024 Time: 18:03 Bed 9 Private MD: ED Physician Pancho Greene HPI: 07/01 22:31 This 33 yrs old Female presents to ER via Ambulatory with complaints of Vaginal Pain. kb 22:31 Pt is a 33 year old female who presents for labia swelling that started this morning. kb Denies fever, pain, vaginal discharge. Denies alleviating or aggravating factors. Historical: - Allergies: 18:13 Demerol; cm10 18:13 Ibuprofen; cm10 18:13 Iodinated Contrast Media - IV Dye; cm10 18:13 ORANGES; cm10 - PMHx: 18:13 GALLSTONES; hyperemesis gravidarum; Pancreatitis; cm10 - PSHx: 18:13 Appendectomy; section; Cholecystectomy; tubal ligation; cm10 - Immunization history:: Adult Immunizations up to date. - Infectious Disease History:: Denies. - Social history:: Smoking status: unknown. ROS: 22:30 Constitutional: As per HPI kb Exam: 22:30 Constitutional: This is a well developed, well nourished patient who is awake, alert, kb and in no acute distress. Head/Face: Normocephalic, atraumatic. ENT: Moist Mucous membranes Cardiovascular: Regular rate Respiratory: Respirations even and unlabored. No increased work of breathing. Talking in full sentences Skin: Warm, dry with normal turgor. Normal color. MS/ Extremity: Pulses equal, no cyanosis. Neurovascular intact. Full, normal range of motion. Neuro: Awake and alert, GCS 15, oriented to person, place, time, and situation. Moves all extremities. Normal gait. 22:30 : Pelvic Exam: External exam: swelling and slight erythema to right labia minora without abscess, Vital Signs: 18:14 BP 147 / 83; Pulse 88; Resp 16; Temp 97.2; Pulse Ox 97% on R/A; Weight 88.45 kg; Height cm10 5 ft. 4 in. ; Pain 4/10; 18:14 Body Mass Index 33.47 (88.45 kg, 162.56 cm) cm10 18:14 Pain Scale: Adult cm10 MDM: 18:08 Patient medically screened. kb 22:30 Differential diagnosis: vaginosis, vulvitis, bartholin cyst, abscess. Data reviewed: kb vital signs, nurses notes. Counseling: I had a detailed discussion with the patient and/or guardian regarding the historical points, exam findings, and any diagnostic results supporting the discharge/admit diagnosis, the need for outpatient follow up, an OB/Gyne specialist, to return to the emergency department if symptoms worsen or persist or if there are any questions or concerns that arise at home. Administered Medications: No medications were administered Disposition Summary: 07/01/24 21:06 Discharge Ordered Notes: Location: Home kb Condition: Stable kb Diagnosis - Vaginitis, vulvitis and vulvovaginitis in diseases classified elsewhere kb Followup: kb - With: Emergency Department - When: As needed - Reason: Worsening of condition Followup: kb - With: Private Physician - When: 2 - 3 days - Reason: Recheck today's complaints, Continuance of care, Re-evaluation by your physician Discharge Instructions: - Discharge Summary Sheet kb - Vaginitis, Psyq-of-Taly kb Forms: - Medication Reconciliation Form kb - Antibiotic Education kb - Prescription Opioid Use kb - Patient Portal Instructions kb - Leadership Thank You Letter kb Prescriptions: - Doxycycline Hyclate 100 mg Oral Tablet - take 1 tablet ORAL route every 12 hours; 20 tablet; Refills: 0, Product kb Selection Permitted Signatures: Christine Solares FNP-C FNP-Ckb Martinez, Clarissa, RN RN cm10
--- NOTE | 2024-07-01 21:06 | ER ---
Nurse's Notes [facility] Name: Suraj Courtney Age: 33 yrs Sex: Female : 1990 Arrival Date: 07/01/2024 Time: 18:03 Bed 9 Private MD: Diagnosis: Vaginitis, vulvitis and vulvovaginitis in diseases classified elsewhere Presentation: 07/01 18:14 Chief complaint: Patient states: Swelling to her labia onset today. Pt denies any pain, cm10 discharge. Pt reports redness. Coronavirus screen: Client denies travel out of the [place] in the last 14 days. At this time, the client does not indicate any symptoms associated with coronavirus-19. Ebola Screen: Patient denies travel to an Ebola-affected area in the 21 days before illness onset. No symptoms or risks identified at this time. Initial Sepsis Screen: Does the patient meet any 2 criteria? No. Patient's initial sepsis screen is negative. Does the patient have a suspected source of infection? No. Patient's initial sepsis screen is negative. Risk Assessment: Do you want to hurt yourself or someone else? Patient reports no desire to harm self or others. Onset of symptoms was July 01, 2024. 18:14 Method Of Arrival: Ambulatory cm10 18:14 Acuity: SHAW 4 cm10 Triage Assessment: 18:15 General: Appears in no apparent distress. comfortable, Behavior is calm, cooperative. cm10 Neuro: No deficits noted. Level of Consciousness is awake, alert, obeys commands, Oriented to person, place, time, situation, Appropriate for age. Historical: - Allergies: 18:13 Demerol; cm10 18:13 Ibuprofen; cm10 18:13 Iodinated Contrast Media - IV Dye; cm10 18:13 ORANGES; cm10 - PMHx: 18:13 GALLSTONES; hyperemesis gravidarum; Pancreatitis; cm10 - PSHx: 18:13 Appendectomy; section; Cholecystectomy; tubal ligation; cm10 - Immunization history:: Adult Immunizations up to date. - Infectious Disease History:: Denies. - Social history:: Smoking status: unknown. Screenin:28 [facility] ED Fall Risk Assessment (Adult) History of falling in the last 3 months, jb4 including since admission No falls in past 3 months (0 pts) Confusion or Disorientation No (0 pts) Intoxicated or Sedated No (0 pts) Impaired Gait No (0 pts) Mobility Assist Device Used No (0 pt) Altered Elimination No (0 pt) Score/Fall Risk Level 0 - 2 = Low Risk Oriented to surroundings, Maintained a safe environment. Abuse screen: Denies threats or abuse. Nutritional screening: No deficits noted. Tuberculosis screening: No symptoms or risk factors identified. Assessment: 21:28 Reassessment: Patient appears in no apparent distress at this time. Patient and/or jb4 family updated on plan of care and expected duration. Pain level reassessed. Patient is alert, oriented x 3, equal unlabored respirations, skin warm/dry/pink. Vital Signs: 18:14 BP 147 / 83; Pulse 88; Resp 16; Temp 97.2; Pulse Ox 97% on R/A; Weight 88.45 kg; Height cm10 5 ft. 4 in. ; Pain 4/10; 18:14 Body Mass Index 33.47 (88.45 kg, 162.56 cm) cm10 18:14 Pain Scale: Adult cm10 ED Course: 18:07 Patient arrived in ED. mg5 18:08 [facility]C [facility] kb 18:08 Pancho Greene MD is Attending Physician. kb 18:15 Triage completed. cm10 18:15 Arm band placed on Patient placed in waiting room. cm10 21:28 Patient has correct armband on for positive identification. Call light in reach. Side jb4 rails up X 1. Provided Education on: discharge instructions.. 21:28 No provider procedures requiring assistance completed. Patient did not have IV access jb4 during this emergency room visit. Administered Medications: No medications were administered Medication: 21:28 VIS not applicable for this client. jb4 Outcome: 21:06 Discharge ordered by . hi 21:28 Discharged to home ambulatory, with family, marlon 21:28 Condition: stable 21:28 Discharge instructions given to patient, Instructed on discharge instructions, follow up and referral plans. medication usage, Demonstrated understanding of instructions, follow-up care, medications, Prescriptions given X 1, 21:30 Patient left the ED. jb4 Signatures: Christine Solares FNP-C FNP-Ckb Bryson, James, RN RN jb4 Evelin Rendon RN RN cm10 Ada Victoria mg5
[2024-07-01 22:07] VITALS: TEMP 97.4; O2SAT 100
[2024-07-01 22:13] VITALS: BP 147/83
== END 2024-07-01 21:30 | disposition home or self-care (01) ==
LOC: ER 18:03
DX: R22.9 Localized swelling, mass and lump, unspecified (principal); N77.1 Vaginitis, vulvitis and vulvovaginitis in diseases classified elsewhere

== ENCOUNTER 2025-02-18 23:35 | Emergency (ER) | payer OTHER ==
--- OUTSIDE RECORDS SUMMARY | 2025-02-18 23:39 | XMS REPORT | Continuity of Care Document ---
Author Name Unknown Address [address] [facility] [address] [place] [address] [facility] Address [address] [facility] [place] [address] Care Team Providers Care Communications Lead Name Role Phone Brittney Liu Primary Care Physician FERNY ARTEAGA Attending Clinician Unavailable MD KATHLEEN Attending Clinician Unavailab jacqueline TURNER Attending Clinician Unavailable VESNA WOLFF Attending Clinician UnavailMARKO Duran Attending Clinician Unavailable RADHA KELLOGG Attending Clinician Unavailable Graciela Urbano Attending Clinician + YUN RAMIREZ Attending Clinician Unavailable NOEL LEON Attending Clinician Unavailable AMILCAR FIELD Attending Clinician Unavailab Charles Man MD Attending Clinician [phone] CHARLES JAMES Attending Clinician UnavailEmber Triplett Attending Clinician [phone] EMBER FRANKS Attending Clinician Unavailable Doctor Unassigned, [place] Attending Clinician U navailable CORNELIUS ZAVALETA Attending Clinician Unavailab Cornelius Garcia Attending Clinician + [phone] DAVE BERMAN Attending Clinician Unavailable GRACIELA BURKS [...] Clinician Unavailable JOHN MERCER Admitting Clinician Unavailniecy estes Payers Payer Name Policy Type Policy Number Effective Date Expirati on Date Source [employer] [id number] 2018 00:00:00 [facility] 9 [id number] 2024 00:00:00 [facility] HERB ARREOLA COPAY FOCUS 9 [id number] 2023 00:00:00 [facility] [id number] 2023 00:00:00 Problems Condition Name Condition Details Condition Category Status Onset Date Resolution Date Last Treatment Date Treating Clinician Comments Source Hypertrigl yceridemia Hypertrigl yceridemia Disease Active 2023-11 00:00: 00 Di aldridge Family history of von Willebrand disease Family history of von Willebrand disease Disease Active 07-09 00:00: 00 Di aldridge Irregular periods Irregular periods Disease Active 2024-0 8-15 00:00: 00 Di Rizzoa luis carlos Chronic idiopathic constipati on Chronic idiopathic constipati on Disease Active 8-15 00:00: 00 Di Soares - Matthiasa l BMI 33.0-33.9, adult BMI 33.0-33.9, adult Disease Active 8-15 00:00: 00 Di Soares - Matthiasa l Encounter for surveillan ce of contracept saman, unspecifie d contracept haider Encounter for surveillan ce of contracept saman, unspecifie d contracept haider Disease Active 616 00:00: 00 [facility] History of bilateral tubal ligation History of bilateral tubal ligation Disease Active 16 00:00: 00 [facility] Overweight (BMI 25.0-29.9) Overweight (BMI 25.0-29.9) Disease Active 616 00:00: 00 [facility] S/P section S/P section Disease Active 4-06 00:00: 00 [facility] contractio ns contractio ns Disease Active 3-29 00:00: 00 [facility] History of delivery History of delivery Disease Active 2019-11 00:00: 00 [facility] History of cholecyste ctomy History of cholecyste ctomy Disease Active 2019-11 00:00: 00 [facility] Cholelithi asis affecting in second trimester, antepartum Cholelithi asis affecting in second trimester, antepartum Disease Active 2019-11 00:00: 00 [facility] Gallstones Gallstones Disease Active 2019-11 00:00: 00 Overview: Formattin g of this note might be different from the original. Added automatic ally from request for surgery [id number] [facility] Nausea and vomiting in Nausea and vomiting in Disease Active 2019-11 017 00:00: 00 [facility] 9 weeks gestation of 9 weeks gestation of Disease Active 2019-1117 00:00: 00 [facility] Hyperemesi s gravidarum before end of 22 week gestation with dehydratio n Hyperemesi s gravidarum before end of 22 week gestation with dehydratio n Disease Active 2019-11 007 00:00: 00 [facility] Obesity (BMI 30-39.9) Obesity (BMI 30-39.9) Disease Active 2019-11 0-07 00:00: 00 [facility] Hyperemesi s gravidarum Hyperemesi s gravidarum Disease Active 2019-11 0 00:00: 00 [facility] Desires (vaginal after ) trial Desires (vaginal after ) trial Disease Active 08-03 00:00: 00 [facility] Special screening examinatio n for viral disease Special screening examinatio n for viral disease Disease Active 9 00:00: 00 [facility] care and examinatio n of lactating mother care and examinatio n of lactating mother Disease Active 2-14 00:00: 00 [facility] Previous section complicati ng Previous section complicati ng Disease Active 1-26 00:00: 00 [facility] Atypical squamous cells of undetermin ed significan ce (ASCUS) on Papanicola ou smear of cervix Atypical squamous cells of undetermin ed significan ce (ASCUS) on Papanicola ou smear of cervix Disease Active 1-24 00:00: 00 [facility] 33 weeks gestation of 33 weeks gestation of Disease Active 2017-11 2-29 00:00: 00 [facility] Nausea and vomiting during Nausea and vomiting during Disease Active 8-22 00:00: 00 [facility] BMI 32.0-32.9, adult BMI 32.0-32.9, adult Disease Active 7-07 00:00: 00 [facility] Maternal varicella, non-immune Maternal varicella, non-immune Disease Active 6- 00:00: 00 Overview: Formattin g of this note might be different from the original. Address pp [facility] Rubella non-immune status, antepartum Rubella non-immune status, antepartum Disease Active 05-21 00:00: 00 Overview: Formattin g of this note might be different from the original. Address pp [facility] Supervisio n of high risk in third trimester Supervisio n of high risk in third trimester Disease Active 05-20 00:00: 00 [facility] Multiparit y Multiparit y Disease Active 05-20 00:00: 00 [facility] Well woman exam Well woman exam Disease Active 7-11 00:00: 00 [facility] Obesity in Obesity in Disease Active 3 00:00: 00 Overview: Formattin g of this note might be different from the original. ICD10 Diagnosis Term Office Copy Selector Utility [facility] Encounter for IUD removal and reinsertio n Encounter for IUD removal and reinsertio n Disease Active 2-24 00:00: 00 [facility] ASCUS on Pap smear ASCUS on Pap smear Disease Active 5-22 00:00: 00 [facility] 32 weeks gestation of 32 weeks gestation of Disease Resolve d 2020-0 3-28 00:00: 00 2021-03-22 00:00:00 2021-03-22 13:56:51 [facility] Threatened labor, third trimester Threatened labor, third trimester Disease Resolve d 2020-0 3-28 00:00: 00 2021-03-22 00:00:00 2021-03-22 13:56:51 [facility] 31 weeks gestation of 31 weeks gestation of Disease Resolve d 2020-0 3-17 00:00: 00 2021-02-25 00:00:00 2021-02-25 15:14:05 [facility] 8 weeks gestation of 8 weeks gestation of Disease Resolve d 2019-11 0-06 00:00: 00 2021-02-25 00:00:00 2021-02-25 15:14:08 [facility] Nausea Nausea Disease Resolve d 2017-11 1-20 00:00: 00 2020-08-30 00:00:00 2020-08-30 22:27:26 [facility] Trichomona l vaginitis during in second trimester Trichomona l vaginitis during in second trimester Disease Resolve d 2017-11 00:00: 00 2019-02-04 00:00:00 2019-02-04 12:56:53 [facility] 37 weeks gestation of 37 weeks gestation of Disease Resolve d 12-18 00:00: 00 2019-01-08 00:00:00 2019-01-08 14:14:59 [facility] Mcintosh Hick's contractio n Mcintosh Hick's contractio n Disease Resolve d 118 00:00: 00 2019-01-08 00:00:00 2019-01-08 14:14:30 [facility] Abnormal maternal glucose tolerance, antepartum Abnormal maternal glucose tolerance, antepartum Disease Resolve d 1-17 00:00: 00 2019-01-08 00:00:00 2019-01-08 14:14:55 [facility] Family history of deafness Family history of deafness Disease Resolve d 7-03 00:00: 00 2019-01-08 00:00:00 2019-01-08 14:14:53 [facility] History of delivery History of delivery Disease Resolve d 6-26 00:00: 00 2019-01-08 00:00:00 2019-01-08 14:14:37 [facility] contractio ns contractio ns Disease Resolve d 2017-11 2-29 00:00: 00 2018-12-18 00:00:00 2018-12-18 17:48:59 [facility] Hyperemesi s gravidarum Hyperemesi s gravidarum Disease Resolve d 7-07 00:00: 00 2018-12-18 00:00:00 2018-12-18 17:48:49 [facility] 15 weeks gestation of 15 weeks gestation of Disease Resolve d 8-23 00:00: 00 2018-09-25 00:00:00 2018-09-25 13:28:19 [facility] 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 Disease Resolve d 07-17 00:00: 00 2018-09-25 00:00:00 2018-09-25 13:29:42 [facility] Trichomona s infection Trichomona s infection Disease Resolve d 07-17 00:00: 00 2018-09-25 00:00:00 2018-09-25 13:29:36 [facility] 7 weeks gestation of 7 weeks gestation of Disease Resolve d 07 00:00: 00 2018-09-25 00:00:00 2018-09-25 13:28:52 [facility] Anxiety and depression Anxiety and depression Disease Resolve d 05-17 00:00: 00 2018-09-25 00:00:00 2018-09-25 13:28:30 [facility] Irregular menstrual cycle Irregular menstrual cycle Disease Resolve d 01-25 00:00: 00 2018-09-25 00:00:00 2018-09-25 13:28:26 [facility] 38 weeks gestation of 38 weeks gestation of Disease Resolve d 07-19 00:00: 00 2018-07-21 00:00:00 2018-07-21 10:54:06 [facility] Contracept haider management Contracept haider management Disease Resolve d 01-25 00:00: 2018-05-20 00:00:00 2022-06-10 00:34:50 [facility] Breast tenderness in female Breast tenderness in female Disease Resolve d 03 00:00: 00 2018-05-20 00:00:00 2018-05-20 15:18:35 [facility] Request for sterilizat ion Request for sterilizat ion Disease Resolve d 05-17 00:00: 00 2017-11-27 00:00:00 2017-11-27 14:19:32 [facility] Right knee pain Right knee pain Disease Resolve d 2014-11 1-16 00:00: 00 2016-06-04 00:00:00 2016-06-04 14:49:01 [facility] Other malaise and fatigue Other malaise and fatigue Disease Resolve d 303 00:00: 00 2016-06-04 00:00:00 2016-06-04 14:48:55 [facility] Not immune to rubella Not immune to rubella Disease Resolve d 04-16 00:00: 00 2016-06-04 00:00:00 2022-06-10 00:30:26 [facility] Allergies, Adverse Reactions, Alerts Allergy Name Allergy Type Status Severity Reaction(s) Onset Date Inactive Date Treating Clinician Comments Source Ibuprofe n Propensi ty to adverse reaction s Active Hives 12-17 00:00: 00 Di Soares - Matthiasa luis carlos [place] Propensi [place] to adverse reaction s Active Swelling 12-17 00:00: 00 Di Rizzoa luis carlos MORPHINE DRUG INGREDI Active Hives 05-10 00:00: 00 [facility] Morphine Propensi ty to adverse reaction s Active Hives 05-10 00:00: 00 Di Rizzoa luis carlos SODIUM CITRATE (BULK) DRUG Active N/V 12-18 00:00: 00 [facility] Sodium Citrate Propensi ty to adverse reaction s Active Nausea and Vomiting 12-18 00:00: 00 Di aldridge [place] Propensi ty to adverse reaction s Active Hives 04-15 00:00: 00 [facility] IBUPROFE N DRUG INGREDI Active Hives 04-15 00:00: 00 [facility] ORANGE DRUG Active Hives 04-15 00:00: 00 [facility] Ibuprofe n Propensi ty to adverse reaction s Active Hives 04-15 00:00: 00 Di Rizzoa luis carlos [place] Propensi ty to adverse reaction s Active Itching 04-15 00:00: 00 Di aldridge Social History Social Habit Start Date Stop Date Quantity Comments Source ASSERTION Not Di Soares - External Sexual orientation Mary Carmen youssef Rodger - External History SDOH Alcohol Frequency [facility] History SDOH Alcohol Std Drinks [facility] History SDOH Alcohol Binge [facility] Alcoholic beverage intake 2025-02-17 00:00:00 2025-02-17 00:00:00 .29 /d Di Soares - External History of Social function 2025-02-17 00:00:00 2025-02-17 00:00:00 Di Soares - External Tobacco use and exposure 2024-07-09 00:00:00 2024-07-09 00:00:00 Smokeless tobacco non-user Di Soares - External Alcohol Comment 2024-02-13 00:00:00 2024-02-13 00:00:00 occ Di Soares - External Sex 2023-10-24 08:11:56 2023-10-24 08:11:56 Female (finding) Di Soares - External Exposure to SARS-CoV-2 (event) 2022-03-17 00:00:00 2022-03-27 14:04:00 Not sure [facility] Alcohol intake 2020-10-14 00:00:00 2020-10-14 00:00:00 0 /d [facility] Sex assigned at 1990 00:00:00 1990 00:00:00 Di Soares - External Smoking Status Start Date Stop Date Source Never smoked tobacco Di Soares - External Medications Ordered Medication Name Filled Medication Name Start Date Stop Date Current Medication? Ordering Clinician Indication Dosage Frequency Signature (SIG) Comments Components Source Tramadol HCl (ULTRAM) 50 MG oral Tablet 3- 00:00: 00 Yes Di aldridge Lisinopril 10 MG oral Tablet 2023-11 0- 00:00: 00 02-17 00:00 :00 No [id number] 10mg QD Take 1 tablet (10 mg total) by mouth daily as needed (BP >135/85). Di aldridge Lubiproston e 24 MCG oral Capsule 2023-11 0-08 00:00: 00 02-17 00:00 :00 No [id number] 24ug Take 1 capsule (24 mcg total) by mouth in the morning and 1 capsule (24 mcg total) in the evening. Take with meals. Di aldridge Naproxen 500 MG oral Tablet 2023-11 0-08 00:00: 00 02-17 00:00 :00 No [id number] 500mg Take 1 tablet (500 mg total) by mouth in the morning and 1 tablet (500 mg total) in the evening. Take with meals. Di aldridge Phentermine HCl 37.5 MG oral Tablet 2023-11 0- 00:00: 00 Yes [id number] 37.5mg Take 1 tablet (37.5 mg total) by mouth every morning (before breakfast) . Di aldridge Naproxen 500 MG oral Tablet 2023-11 0 00:00: 00 Yes [id number] 500mg Take 1 tablet (500 mg total) by mouth in the morning and 1 tablet (500 mg total) in the evening. Take with meals. Di aldridge Lubiproston e 24 MCG oral Capsule 9 00:00: 00 Yes [id number] 24ug Take 1 capsule (24 mcg total) by mouth in the morning and 1 capsule (24 mcg total) in the evening. Take with meals. Di aldridge Phentermine HCl 15 MG oral Capsule 9- 00:00: 00 08-26 00:00 :00 No [id number] 15mg Take 1 capsule (15 mg total) by mouth every morning. Di aldridge linaCLOtide (Linzess) 145 MCG oral Capsule 8-15 00:00: 00 Yes [id number] 145ug QD Take 1 capsule (145 mcg total) by mouth daily. Di aldridge Phentermine HCl 15 MG oral Capsule 8-15 00:00: 00 Yes [id number] 15mg Take 1 capsule (15 mg total) by mouth every morning. Di aldridge Tramadol HCl (ULTRAM) 50 MG oral Tablet 2024-0 3-26 00:00: 00 07-09 00:00 :00 No 50mg Q.25D Take 1 tablet (50 mg total) by mouth every 6 hours as needed for pain. Di aldridge Docusate Sodium (Colace) 100 MG oral Capsule 02-17 00:00: 00 07-09 00:00 :00 No 100mg Q.5D Take 1 capsule (100 mg total) by mouth 2 times daily. Di aldridge Ondansetron HCl (Zofran) 4 MG oral Tablet 02-17 00:00: 00 07-09 00:00 :00 No 4mg [id number] 3D Take 1 tablet (4 mg total) by mouth every 8 hours as needed for nausea. Di aldridge Ondansetron HCl (Zofran) 4 MG oral Tablet 12-17 15:01: 49 12-17 00:00 :00 No 4mg Q.[id number] 3D Take 1 tablet (4 mg total) by mouth every 8 hours as needed for nausea. Di aldridge Ondansetron HCl (Zofran) 4 MG oral Tablet 12-17 00:00: 00 Yes [id number] 4mg Q.[id number] 3D Take 1 tablet (4 mg total) by mouth every 8 hours as needed for nausea. Di aldridge No known medications 03-27 14:11: 56 No [facility] docusate 100 mg capsule 2019-11 00:00: 00 02-15 00:00 :00 No [id number] 100mg Take 1 capsule by mouth daily. May substitute for what is in stock and covered by patient plan [facility] acetaminoph en 325 mg Cap 2019-11 00:00: 00 02-15 00:00 :00 No [id number] 2{tbl} Take 2 tablets by mouth every 6 (six) hours. [facility] doxylamine- pyridoxine, vit B6, (DICLEGIS) 10-10 mg per tablet 2019-11 0-13 00:00: 00 02-28 00:00 :00 No [id number] 2{tbl} Take 2 tablets by mouth at bedtime. [facility] proCHLORper azine 10 mg tablet 2019-11 0-08 00:00: 00 02-02 00:00 :00 No [id number] 10mg Take 1 tablet by mouth every 6 (six) hours as needed (for nausea and vomiting unresponsi ve to doxylamine /pyridoxin e). [facility] vit 33-iron-fol ic-dha (SELECT-OB + DHA) 29 mg iron-1 mg -250 mg combo pack 08-03 00:00: 00 02-15 00:00 :00 No [id number] 1{packe t} Take 1 Packet by mouth daily. [facility] Immunizations Ordered Immunization Name Filled Immunization Name Date Status Comments Source TDAP 2021-01-18 00:00:00 Completed [facility] TDAP 2021-01-18 00:00:00 Completed [facility] Varicella (varivax)(chicken pox) 2018-12-20 00:00:00 Completed [facility] Varicella (varivax)(chicken pox) 2018-12-20 00:00:00 Completed [facility] TDAP (ADACEL) VACCINE 2018-12-11 00:00:00 Completed [facility] TDAP (ADACEL) VACCINE 2018-12-11 00:00:00 Completed [facility] HPV9 2016-06-04 00:00:00 Completed [facility] HPV9 2016-06-04 00:00:00 Completed [facility] TDAP 2015-04-06 00:00:00 Completed [facility] TDAP 2015-04-06 00:00:00 Completed [facility] Td 2004-11-25 00:00:00 Completed [facility] Tetanus/Diptheria 2004-11-25 00:00:00 Completed [facility] Td 2004-11-25 00:00:00 Completed [facility] Tetanus/Diptheria 2004-11-25 00:00:00 Completed [facility] Td (adult) Unknown Completed Di Se ybold - External Td- Tetanus & Diphtheria Vaccine (age 7+ years) Unknown Completed Di Blackburnybol d - External HPV 9 (Human Papillomavirus) Unknown Completed Di Seybo ld - External Tdap- (Boostrix, Adacel) Unknown Completed Di Seybold - External Varicella Vaccine Unknown Completed Ke lsey Seybold - External Td (adult) Unknown Completed Di Se ybold - External Td- Tetanus & Diphtheria Vaccine (age 7+ years) Unknown Completed Di Seybol d - External HPV 9 (Human Papillomavirus) Unknown Completed Di Seybo ld - External Tdap- (Boostrix, Adacel) Unknown Completed Di Seybold - External Varicella Vaccine Unknown Completed Noel lsey Seybold - External Td (adult) Unknown Completed Di Se ybold - External Td- Tetanus & Diphtheria Vaccine (age 7+ years) Unknown Completed Di Seybol d - External HPV 9 (Human Papillomavirus) Unknown Completed Di Seybo ld - External Tdap- (Boostrix, Adacel) Unknown Completed Di Seybold - External Varicella Vaccine Unknown Completed Noel sandovaley Seybold - External TD, NOS Unknown Completed [facility] TDAP Unknown Completed [facility] HPV9 Unknown Completed [facility] Varicella (varivax)(chicken pox) Unknown Completed [facility] Tetanus/Diptheria Unknown Completed Un [facility] TD, NOS Unknown Completed [facility] TDAP Unknown Completed [facility] HPV9 Unknown Completed [facility] Varicella (varivax)(chicken pox) Unknown Completed [facility] Tetanus/Diptheria Unknown Completed Un [facility] Vital Signs Vital Name Observation Time Observation Value Comments S ource Body weight 2025-02-17 19:50:00 84.993 kg Ayleen ey Seybold - External BMI 2025-02-17 19:50:00 32.16 kg/m2 Ayleen ey Seybold - External Oxygen saturation in Arterial blood by Pulse oximetry 2025-02-17 19:50:00 98 /min Di ybo ld - External Systolic blood pressure 2025-02-17 19:50:00 118 mm[Hg] Di Seybo ld - External Diastolic blood pressure 2025-02-17 19:50:00 78 mm[Hg] Di Seybo ld - External Heart rate 2025-02-17 19:50:00 78 /min Kelse y Seybold - External Body temperature 2025-02-17 19:50:00 36.67 Roxann Di Seybold - External Respiratory rate 2025-02-17 19:50:00 18 /min Di Seybold - External Body height 2025-02-17 19:50:00 162.6 cm Ayleen ey Seybold - External Systolic blood pressure 2024-07-09 14:37:00 122 mm[Hg] Di Seybo ld - External Diastolic blood pressure 2024-07-09 14:37:00 78 mm[Hg] Di Seybo ld - External Heart rate 2024-07-09 14:37:00 79 /min Kelse y Seybold - External Body temperature 2024-07-09 14:37:00 36.06 Roxann Di Seybold - External Respiratory rate 2024-07-09 14:37:00 14 /min Di Seybold - External Body height 2024-07-09 14:37:00 162.6 cm Ayleen ey Seybold - External Body weight 2024-07-09 14:37:00 88.905 kg Ayleen ey Seybold - External BMI 2024-07-09 14:37:00 33.64 kg/m2 Aylene ey Seybold - External Systolic blood pressure 2023-12-17 20:22:00 118 mm[Hg] Di Seybo ld - External Diastolic blood pressure 2023-12-17 20:22:00 68 mm[Hg] Di Seybo ld - External Heart rate 2023-12-17 20:22:00 80 /min Kelse y Seybold - External Body temperature 2023-12-17 20:22:00 36.67 Roxann Di Seybold - External Respiratory rate 2023-12-17 20:22:00 18 /min Di Seybold - External Body height 2023-12-17 20:22:00 162.6 cm Ayleen ey Seybold - External Body weight 2023-12-17 20:22:00 87.544 kg Ayleen ey Seybold - External BMI 2023-12-17 20:22:00 33.13 kg/m2 Ayleen Jarviskim - External Oxygen saturation in Arterial blood by Pulse oximetry 2023-12-17 20:22:00 98 /min Di Massey ld - External Systolic blood pressure 2022-03-27 19:29:00 122 mm[Hg] [facility] Diastolic blood pressure 2022-03-27 19:29:00 80 mm[Hg] [facility] Heart rate 2022-03-27 19:29:00 105 /min [facility] Body height 2022-03-27 19:29:00 162.6 cm [facility] Body weight 2022-03-27 19:29:00 87.317 kg [facility] BMI 2022-03-27 19:29:00 33.04 kg/m2 [facility] Encounters Start Date/Time End Date/Time Encounter Type Admission Type Attending [facility] Care Facility Care Department Encounter ID Source 2021-09-24 10:31:27 Outpatient P [facility] [id number] [facility] 2021-09-24 09:02:29 [id number] 2021-09-24 06:47:18 Emergency [facility] [id number] [facility] 2021-09-24 06:38:20 [facility] [id number] [facility] 2021-09-24 05:25:21 Outpatient [facility] [id number] [facility] 2021-09-24 04:28:40 Outpatient P [facility] [id number] [facility] 2021-09-24 04:28:31 Emergency [facility] [id number] [facility] 2021-09-24 01:10:45 [facility] [id number] [facility] 2021-09-23 21:07:50 [facility] [id number] [facility] 2021-09-23 07:29:02 [facility] [id number] [facility] 2021-09-23 06:08:13 Outpatient [facility] [id number] [facility] 2021-09-22 23:31:44 Outpatient [facility] [id number] [facility] 2021-09-22 23:30:48 Emergency [facility] [id number] [facility] 2021-09-22 22:58:12 Emergency [facility] [id number] [facility] 2021-09-22 21:53:49 [facility] [id number] [facility] [facility]-22 21:28:28 Outpatient P [facility] JOANN [id number] [facility] 2021-09-22 20:56:44 Emergency [facility] [id number] [facility] 2025-02-18 00:00:00 2025-02-18 00:00:00 Outpatient DI KWOK [id number] Di [facility] 2025-02-17 15:00:00 2025-02-17 15:00:00 Outpatient FERNY ARTEAGA [id number] [facility] 2024-10-23 00:00:00 2024-10-23 00:00:00 Outpatient MD DI VÁSQUEZ [id number] Di aretha 2024-09-18 13:00:00 2024-09-18 13:00:00 Outpatient LAB90 DI KWOK [id number] Di [facility] 2024-09-18 12:00:00 2024-09-18 12:00:00 Outpatient VESNA WOLFF [id number] Di Soares 2024-09-10 00:00:00 2024-09-10 00:00:00 Outpatient MARKO SCOTT [id number] Di aretha 2024-09-02 00:00:00 2024-09-02 00:00:00 Outpatient MD DI VÁSQUEZ [id number] Di Soares 2024-08-31 00:00:00 2024-08-31 00:00:00 Outpatient MARKO SCOTT [facility] KWOK [id number] [facility] 2024-08-26 13:00:00 2024-08-26 13:00:00 Outpatient MARKO SCOTTXUAN KWOK [id number] [facility] 2024-08-17 00:00:00 2024-08-17 00:00:00 Outpatient MARKO SCOTT DI KWOK [id number] [facility] 2024-08-13 11:00:00 2024-08-13 11:00:00 Outpatient MARKO SCOTT DI KWOK [id number] [facility] 2024-07-12 00:00:00 2024-07-12 00:00:00 Outpatient [facility] SC[facility] [id number] [facility]24-[facility]-10 00:00:00 2024-07-10 00:00:00 Outpatient EVELIA SCOTTGricelda KWOK [id number] [facility] 2024-07-09 10:45:00 2024-07-09 10:45:00 Outpatient LAB90 DI KWOK [id number] [facility] 2024-07-09 10:00:00 2024-07-09 10:00:00 Outpatient MARKO SCOTT DI KWOK [id number] Di [facility] 2024-07-07 10:15:00 2024-07-07 10:15:00 Outpatient RADHA LEDESMA [facility] [id number] [facility] 2024-07-01 00:00:00 2024-07-01 16:22:57 Telephone Graciela Burks [facility] [employer] [facility] [id number] [id number] [facility] 2024-03-04 15:30:00 2024-03-04 15:30:00 Outpatient YUN RAMIREZ [id number] [facility] 2024-02-25 00:00:00 2024-02-25 00:00:00 Outpatient YUN RAMIREZSEY [id number] Di Seybold 2024-02-22 00:00:00 2024-02-22 00:00:00 Outpatient NOEL LEON DI DI [id number] Di Sey[facility] 2024-02-20 12:30:00 2024-02-20 12:30:00 Outpatient VESNA WOLFF DI DI [id number] Di Seybold 2024-02-18 07:45:00 2024-02-18 07:45:00 Outpatient RAMIREZ, GUINEAN DI KWOK [id number] Di Seybold 2024-02-18 00:00:00 2024-02-18 00:00:00 Outpatient RAMIREZ, GUINEAN DI KWOK [id number] Di Seybold 2024-02-18 00:00:00 2024-02-18 00:00:00 Outpatient RAMIREZ, GUINEAN DI KWOK [id number] Di Seybold 2024-02-11 13:05:00 2024-02-11 13:05:00 Outpatient LAB DI DI [id number] Di Seybold 2024-02-11 13:00:00 2024-02-11 13:00:00 Outpatient NEW, VESNA DI DI [id number] Di Seybold 2024-02-11 00:00:00 2024-02-11 00:00:00 Outpatient RAMIREZ, GUINEAN DI KWOK [id number] Di Seybold 2024-02-10 12:30:00 2024-02-10 12:30:00 Outpatient NEW, MALAGON DI KWOK [id number] Di Seybold 2024-02-06 00:00:00 2024-02-06 00:00:00 Outpatient RAMIREZ, GUINEAN DI KWOK [id number] Di Seybold 2024-02-06 00:00:00 2024-02-06 00:00:00 Outpatient DI KWOK [id number] Di Seybold 2024-01-29 15:15:00 2024-01-29 15:15:00 Outpatient RAMIREZ, YUN KWOK [id number] Di Seybold 2024-01-23 15:20:00 2024-01-23 15:20:00 Outpatient DI KWOK [id number] Di [facility] 2024-01-23 00:00:00 2024-01-23 00:00:00 Outpatient YUN RAMIREZ [id number] [facility] 2024-01-23 00:00:00 2024-01-23 00:00:00 Outpatient RAMIREZYUN Vergara [id number] [facility] 2024-01-21 00:00:00 2024-01-21 00:00:00 Outpatient RAMIREZYUN Vergara [id number] Di [facility] 2024-01-01 15:45:00 2024-01-01 15:45:00 Outpatient RAMIREZYUN Vergara DI [id number] Di [facility] 2023-12-26 00:00:00 2023-12-26 00:00:00 Outpatient EMIRALICIAA DI KWOK [id number] [facility] 2023-12-17 14:30:00 2023-12-17 14:30:00 Outpatient AMILCAR FIELD DI KWOK [id number] [facility] 2023-02-07 16:31:26 2023-02-07 16:31:26 Outpatient [facility] [id number] José Luis F Tobi 2022-03-28 00:00:00 2022-03-28 00:00:00 Telephone Charles James [facility] [id number] [id number] [id number] [facility] 2022-03-27 14:30:00 2022-03-27 23:59:00 Outpatient R CHARLES JAMES [facility] [id number] [facility] 2022-03-27 14:30:00 2022-03-27 15:00:00 Office Visit Ember Franks [facility] [id number] [id number] [id number] [id number] [facility] 2022-03-27 14:30:00 2022-03-27 14:30:00 Outpatient EMBER EPPS [facility] [id number] [facility] 2022-03-27 00:00:00 2022-03-27 00:00:00 Orders Only Doctor Unassigned, [place] [facility] 1..840.114 350.1.13.10 [id number] [id number] [facility] 2021-05-10 14:30:00 2021-05-10 14:30:00 Outpatient CORNELIUS HERNANDEZ [facility] [id number] [facility] 2021-03-22 13:46:41 2021-03-22 14:24:31 Routine Visit Cornelius Zavaleta [facility] [employer] [facility] [id number] [id number] [id number] 2021-03-22 14:00:00 2021-03-22 14:00:00 Outpatient CORNELIUS HERNANDEZ [facility] [id number] [facility] 2021-03-06 11:00:00 2021-03-06 11:00:00 Outpatient DAVE MITCHELL [facility] [id number] [facility] 2021-03-01 12:45:00 2021-03-01 12:45:00 Outpatient CORNELIUS HERNANDEZ [facility] [id number] [facility] 2021-02-19 15:41:00 2021-02-19 15:41:00 Outpatient CORNELIUS ARAMBULA [facility] JOANN [id number] [facility] 2021-02-15 14:30:00 2021-02-15 14:30:00 Outpatient CORNELIUS HERNANDEZ [facility] [id number] [facility] 2021-02-01 15:15:00 2021-02-01 15:15:00 Outpatient R CORNELIUS ZAVALETA [facility] [id number] [facility] 2021-01-18 13:45:00 2021-01-18 13:45:00 Outpatient CORNELIUS HERNANDEZ [facility] [id number] [facility] 2021-01-06 09:45:00 2021-01-06 09:45:00 Outpatient R CORNELIUS ZAVALETA [facility] [id number] [facility] 2020-12-23 11:00:00 2020-12-23 11:00:00 Outpatient R BRITTMARITZAGRACIELA [facility] [id number] [facility] 2020-12-20 10:45:00 2020-12-20 10:45:00 Outpatient R SHELLIESMITH GRACIELA [facility] [id number] [facility] 2020-12-20 09:45:00 2020-12-20 09:45:00 Outpatient R CORNELIUS ZAVALETA [facility] [id number] [facility] 2020-12-13 14:15:00 2020-12-13 14:15:00 Outpatient P JAMAAL SHELLEY [facility] [id number] [facility] 2020-11-29 14:30:00 2020-11-29 14:30:00 Outpatient R [facility] [id number] [facility] 2020-11-22 14:00:00 2020-11-22 14:00:00 Outpatient R BRITTMARITZAGRACIELA [facility] [id number] [facility] 2020-11-15 13:00:00 2020-11-15 13:00:00 Outpatient P CHRISTINA GOMEZ [facility] [id number] [facility] 2020-11-08 15:00:00 2020-11-08 15:00:00 Outpatient P EDYTA FRANCIS SANGEETA [facility] [id number] [facility] 2020-10-31 15:15:00 2020-10-31 15:15:00 Outpatient P STEVE GRANADOS STEVE [facility] [id number] [facility] 2020-10-24 13:45:00 2020-10-24 13:45:00 Outpatient R GRACIELA BURKS [facility] [id number] [facility] 2020-10-14 00:00:00 2020-10-14 00:00:00 Case Management Laura Agosto [facility] [id number] [id number] [facility] 2020-10-06 12:45:00 2020-10-06 12:45:00 Outpatient R CORNELIUS ZAVALETA [facility] [id number] [facility] 2020-09-08 10:45:00 2020-09-08 10:45:00 Outpatient R CORNELIUS ZAVALETA [facility] [id number] [facility] 2020-08-31 12:45:00 2020-08-31 12:45:00 Outpatient R CORNELIUS ZAVALETA [facility] [id number] [facility] 2020-08-24 13:30:00 2020-08-24 13:30:00 Outpatient P [facility] [id number] [facility] 2020-08-03 12:45:00 2020-08-03 12:45:00 Outpatient R CORNELIUS ZAVALETA [facility] [id number] [facility] 2020-07-12 14:15:00 2020-07-12 14:15:00 Outpatient R CORNELIUS ZAVALETA [facility] [id number] [facility] 2020-03-21 15:00:00 2020-03-21 15:00:00 Outpatient CORNELIUS HERNANDEZ [facility] [id number] [facility] Notes Date/Time Note Provider Source 2025-02-17 14:54:22 Chief Complaint Patient presents with ER F/U Urgent care for muscle strain Nya Erickson LVN T [facility] 2024-07-09 09:41:35 Chief Complaint Patient presents with Physical Patient is fasting. No other issues to discuss Aurora Hartley MA II [facility] 2024-07-01 16:18:05 [facility] with patient [facility] are not [facility] with her plan. [place] [facility] 2024-07-01 13:56:34 Suraj Fuentes is a 33 year old female calling requesting to talk with an nurse having problems with an vagina lip was swollen x this morning. Please contact patient at [phone] (home) Raya Sandoval [facility] 2023-12-17 14:25:16 Follow-up Hospitalization (Hospital follow up for umbilical hernia) Nya Erickson LVN [facility]
[2025-02-18] MEDS ORDERED: HYDROCODONE/APAP 5/325 MG TAB ONE (23:45)
[2025-02-18] MEDS ORDERED: ACETAMINOPHEN 325 MG TABLET ONE (23:45)
--- NOTE | 2025-02-19 01:15 | ER ---
Nurse's Notes [facility] Name: Suraj Courtney Age: 34 yrs Sex: Female : 1990 Arrival Date: 02/18/2025 Time: 23:35 Bed 12 Private MD: Diagnosis: Local infection of the skin and subcutaneous tissue, unspecified-right arm axilla Presentation: 02/18 23:44 Chief complaint: Patient states: right armpit pain X3 days. Coronavirus screen: Client lg3 denies travel out of the [place] in the last 14 days. At this time, the client does not indicate any symptoms associated with coronavirus-19. Ebola Screen: No symptoms or risks identified at this time. Initial Sepsis Screen: Does the patient meet any 2 criteria? No. Patient's initial sepsis screen is negative. Does the patient have a suspected source of infection? No. Patient's initial sepsis screen is negative. Risk Assessment: Do you want to hurt yourself or someone else? Patient reports no desire to harm self or others. Onset of symptoms is unknown. 23:44 Method Of Arrival: Ambulatory lg3 23:44 Acuity: SHAW 4 lg3 Triage Assessment: 23:47 General: Appears in no apparent distress. comfortable, Behavior is calm, cooperative. lg3 Pain: Complains of pain in right axilla. EENT: No deficits noted. No signs and/or symptoms were reported regarding the EENT system. Neuro: No deficits noted. Forbes Agitation-Sedation Scale (RASS): 0 - Alert and Calm Level of Consciousness is awake, alert, obeys commands, Oriented to person, place, time, situation. Cardiovascular: No deficits noted. Denies chest pain, shortness of breath, Capillary refill < 3 seconds Clubbing of nail beds is absent JVD is absent Patient's skin is warm and dry. Respiratory: No deficits noted. Airway is patent Respiratory effort is even, unlabored, Respiratory pattern is regular, symmetrical. GI: No deficits noted. No signs and/or symptoms were reported involving the gastrointestinal system. : No signs and/or symptoms were reported regarding the genitourinary system. Derm: No deficits noted. Skin is intact, is healthy with good turgor, Skin is dry, Skin is normal, Skin temperature is warm. Musculoskeletal: No deficits noted. Circulation, motion, and sensation intact. Range of motion: intact in all extremities. 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 - Infectious Disease History:: Denies. - Social history:: Smoking status: Patient denies any tobacco usage or history of. Patient/guardian denies using alcohol, street drugs. Screenin:48 [facility] ED Fall Risk Assessment (Adult) History of falling in the last 3 months, lg3 including since admission No falls in past 3 months (0 pts) Confusion or Disorientation No (0 pts) Intoxicated or Sedated No (0 pts) Impaired Gait No (0 pts) Mobility Assist Device Used No (0 pt) Altered Elimination No (0 pt) Score/Fall Risk Level 0 - 2 = Low Risk Oriented to surroundings, Maintained a safe environment, Educated pt \T\ family on fall prevention, incl call for assistance when getting out of bed, Assessed \T\ reinforced patient's understanding of fall precautions. Abuse screen: Denies threats or abuse. Denies injuries from another. Nutritional screening: No deficits noted. Tuberculosis screening: No symptoms or risk factors identified. Assessment: 23:48 General: see triage assessment. lg3 Vital Signs: 23:44 BP 133 / 85; Pulse 64; Resp 16 S; Temp 98.2(O); Pulse Ox 100% on R/A; Weight 84.82 kg lg3 (R); Height 5 ft. 4 in. (R); 23:44 Body Mass Index 32.10 (84.82 kg, 162.56 cm) lg3 ED Course: 23:38 Patient arrived in ED. gm2 23:39 Pancho Pryor PA is PHCP. cp 23:39 Pancho Greene MD is Attending Physician. cp 23:47 Triage completed. lg3 23:47 Arm band placed on left wrist. lg3 23:48 Patient taken to lobby, ambulatory, steady gait. lg3 23:48 Patient has correct armband on for positive identification. Family accompanied patient. lg3 02/19 01:08 UPPER EXTREMITY VENOUS UNILATE In Process Unspecified. EDMS 01:21 Bernadette Sutton, RN is Primary Nurse. vc1 01:29 No provider procedures requiring assistance completed. Patient did not have IV access vc1 during this emergency room visit. 01:30 Provided Education on: complete abx. vc1 Administered Medications: 02/18 23:52 Drug: HYDROcodone-acetaminophen PO 5 mg-325 mg 1 tabs PO once Route: PO; lg3 02/19 01:29 Follow up: Response: No adverse reaction; Marked relief of symptoms vc1 02/18 23:53 Drug: Acetaminophen PO 650 mg PO once Route: PO; lg3 02/19 01:29 Follow up: Response: No adverse reaction; Marked relief of symptoms vc1 01:28 Drug: Cephalexin PO 500 mg PO once Route: PO; vc1 01:28 Follow up: Response: Medication administered at discharge. vc1 01:28 Drug: HYDROcodone-acetaminophen PO 5 mg-325 mg 1 tabs PO once Route: PO; vc1 01:28 Follow up: Response: Medication administered at discharge. vc1 Medication: 02/18 23:48 VIS not applicable for this client. lg3 Outcome: 02/19 01:14 Discharge ordered by . cp 01:29 Discharged to home ambulatory, vc1 01:29 Condition: stable 01:29 Discharge instructions given to patient, Instructed on discharge instructions, follow up and referral plans. medication usage, Demonstrated understanding of instructions, follow-up care, medications, Prescriptions given X 1, 01:31 Patient left the ED. vc1 Signatures: Dispatcher [employer] EDMS Pancho Pryor PA PA cp Able, Lacie RN RN lg3 Bernadette Sutton, ALFONZO RN vc1 Katrina Breaux 2 Corrections: (The following items were deleted from the chart) 01:08 00:48 In radiology for Extremity Venous Uni Ltd+US.RAD.BRZ. EDMS EDMS
--- NOTE | 2025-02-19 01:15 | EDPHYS ---
Physician Documentation [facility] Name: Suraj Courtney Age: 34 yrs Sex: Female : 1990 Arrival Date: 02/18/2025 Time: 23:35 Bed 12 Private MD: ZOYA Physician Pancho Greene HPI: 02/19 00:00 This 34 yrs old Female presents to ER via Ambulatory with complaints of Arm Pain. cp 00:00 The patient or guardian complains of pain, that is acute. The complaints affect the cp right axilla. Context: resulted from unknown cause. Onset: The symptoms/episode began/occurred 3 day(s) ago. Treatment prior to arrival includes: no previous treatment. Associated signs and symptoms: Pertinent negatives: injury. 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 - Infectious Disease History:: Denies. - Social history:: Smoking status: Patient denies any tobacco usage or history of. Patient/guardian denies using alcohol, street drugs. ROS: 02/19 00:05 Constitutional: history per hpi cp 00:05 Constitutional: Negative for body aches, chills, fever, cp 00:05 MS/extremity: Positive for pain, of the right axilla, Negative for injury or acute deformity, decreased range of motion, Exam: 00:10 Constitutional: The patient appears in no acute distress, alert, awake, non-toxic, well cp developed, well nourished, 00:10 Head/Face: Normocephalic, atraumatic. cp 00:10 Eyes: Periorbital structures: appear normal, Conjunctiva: normal, no exudate, no injection, Sclera: no appreciated abnormality, Lids and lashes: appear normal, bilaterally, 00:10 Neck: ROM/movement: is normal, is supple, without pain, no range of motions limitations, 00:10 Chest/axilla: Axilla: abscess, is not appreciated, cellulitis, that is mild, of the right axilla, skin shaved, tenderness to palpation noted, 00:10 Cardiovascular: Rate: normal, Rhythm: regular, 00:10 Respiratory: the patient does not display signs of respiratory distress, Respirations: normal, no use of accessory muscles, no retractions, labored breathing, is not present, Breath sounds: are clear throughout, no decreased breath sounds, no stridor, no wheezing, 00:10 Abdomen/GI: Exam negative for discomfort, distension, guarding, Inspection: abdomen appears normal, 00:10 Back: pain, is absent, ROM is normal, 00:10 Neuro: Orientation: to person, place \T\ time. Mentation: is normal, Vital Signs: 02/18 23:44 BP 133 / 85; Pulse 64; Resp 16 S; Temp 98.2(O); Pulse Ox 100% on R/A; Weight 84.82 kg lg3 (R); Height 5 ft. 4 in. (R); 23:44 Body Mass Index 32.10 (84.82 kg, 162.56 cm) lg3 MDM: 23:39 Medical Screening Exam initiated cp 02/19 00:10 Differential diagnosis: abscess, cellulitis, enlarged lymph node. 01:14 Data reviewed: vital signs, nurses notes, radiologic studies, ultrasound, and as a result, I will discharge patient. 01:14 I considered the following discharge prescriptions or medication management in the emergency department Medications were administered in the Emergency Department. See MAR. Counseling: I had a detailed discussion with the patient and/or guardian regarding the historical points, exam findings, and any diagnostic results supporting the discharge/admit diagnosis, radiology results, to return to the emergency department if symptoms worsen or persist or if there are any questions or concerns that arise at home. Response to treatment: the patient's symptoms have mildly improved after treatment, and as a result, I will discharge patient. 02/19 01:08 Order name: UPPER EXTREMITY VENOUS UNILATE EDMS Administered Medications: 02/18 23:52 Drug: HYDROcodone-acetaminophen PO 5 mg-325 mg 1 tabs PO once Route: PO; lg3 02/19 01:29 Follow up: Response: No adverse reaction; Marked relief of symptoms vc1 02/18 23:53 Drug: Acetaminophen PO 650 mg PO once Route: PO; lg3 02/19 01:29 Follow up: Response: No adverse reaction; Marked relief of symptoms vc1 :28 Drug: Cephalexin PO 500 mg PO once Route: PO; vc1 01:28 Follow up: Response: Medication administered at discharge. vc1 :28 Drug: HYDROcodone-acetaminophen PO 5 mg-325 mg 1 tabs PO once Route: PO; vc1 01:28 Follow up: Response: Medication administered at discharge. vc1 Disposition Summary: 02/19/25 01:14 Discharge Ordered Notes: Location: Home cp Problem: new cp Symptoms: have improved cp Condition: Stable cp Diagnosis - Local infection of the skin and subcutaneous tissue, unspecified - right arm axilla cp Followup: cp - With: Private Physician - When: 2 - 3 days - Reason: Worsening of condition Discharge Instructions: - Discharge Summary Sheet cp - Cellulitis, Adult cp - Lymphadenopathy cp Forms: - Medication Reconciliation Form cp - Antibiotic Education cp - Prescription Opioid Use cp - Patient Portal Instructions cp - Leadership Thank You Letter cp Prescriptions: - Cephalexin 500 mg Oral Capsule - take 1 capsule ORAL route every 8 hours for 10 days; 30 capsule; Refills: 0, cp Product Selection Permitted Addendum: 02/23/2025 15:40 Co-signature as Attending Physician, Pancho Greene MD I agree with the assessment and c hall plan of care. Signatures: Dispatcher [employer] Pancho Sanchez MD MD cha Page, Corey, Sera Crowell cp, RN RN lg3 Bernadette Sutton RN RN vc1 Corrections: (The following items were deleted from the chart) 02/19 01:08 02/18 23:49 Extremity Venous Uni Ltd+US.RAD.BRZ ordered. [facility] 02/19 01:15 01:14 Pain in right upper arm - right arm axilla cp cp
[2025-02-19] MEDS ORDERED: CEPHALEXIN 250 MG CAP ONE (01:24)
[2025-02-19] MEDS ORDERED: HYDROCODONE/APAP 5/325 MG TAB ONE (01:25)
[2025-02-19 01:44] VITALS: BP 133/85; TEMP 98.2; O2SAT 100
--- NOTE | 2025-02-19 07:11 | RAD REPORT ---
EXAM DESCRIPTION: UPPER EXTREMITY VENOUS UNILATE CLINICAL HISTORY: 34 years Female PAIN COMPARISON: None TECHNIQUE: Real-time and Doppler sonography of the right upper extremity was performed. Grayscale, color, and sp ectral analysis was performed. FINDINGS: No intraluminal thrombus was seen at any level. Satisfactory compressibility all levels. IMPRESSION: Negative study. No sonographic evidence for superficial or deep venous thrombosis involving the right upper extremity. Electronically signed by: Rachael Ramirez MD 02/19/2025 01:34 AM CDT Due to temporary technical issues with the PACS/Veeip reporting system, reports are being toby d by the in-house radiologist without review as a courtesy to ensure prompt reporting the interpreting radiologist is fully responsible for the content of the report. Transcribed Date/Time: 02/19/2025 7:11 AM
== END 2025-02-19 01:31 | disposition home or self-care (01) ==
LOC: ER 23:35
DX: L08.9 Local infection of the skin and subcutaneous tissue, unspecified (principal)
CPT/HCPCS: 93971; 99283

== ENCOUNTER 2025-02-21 01:33 | Emergency (ER) | payer OTHER ==
--- OUTSIDE RECORDS SUMMARY | 2025-02-21 01:38 | XMS REPORT | Continuity of Care Document ---
Author Name Unknown Address [address] [facility] [place] [address] [facility] Address [address] [facility] [place] [address] Care Team Providers Care [employer] Customer Service Name Role Phone Brittney Liu Primary Care Physician MD KATHLEEN Attending Clinician UnavailFERNY Alicea Attending Clinician Unavailable LAB90 Attending Clinician Unavailable VESNA WOLFF Attending Clinician UnavailMARKO Duran Attending Clinician Unavailable RADHA KELLOGG Attending Clinician Unavailable Graciela Urbano Attending Clinician + YUN RAMIREZ Attending Clinician Unavailable NOEL LEON Attending Clinician Unavailable AMILCAR FIELD Attending Clinician Unavailab Charles Man MD Attending Clinician [phone] CHARLES JAMES Attending Clinician UnavailEmber Triplett Attending Clinician [phone] EMBER FRANKS Attending Clinician Unavailable Doctor Unassigned, [place] Attending Clinician U navailable CORNELIUS ZAVALETA Attending Clinician Unavailab Cornelius Garcia Attending Clinician + [phone] DAVE BERMAN Attending Clinician Unavailable GRACIELA BURKS [...] Expirati on Date Source [facility] [employer] [id number] 2018 00:00:00 [place] [address] [employer] [address] 9 [id number] 2024 00:00:00 [facility] HERB ARREOLA COPAY FOCUS 9 [id number] 2023 00:00:00 [facility] [id number] 2023 00:00:00 Problems Condition Name Condition Details [...] contracept haider Disease Active 616 00:00: 00 [facility] History of bilateral tubal ligation History of bilateral tubal ligation Disease Active 16 00:00: 00 [facility] Overweight (BMI 25.0-29.9) Overweight (BMI 25.0-29.9) Disease Active 616 00:00: 00 [facility] S/P section S/P section Disease Active 4-06 00:00: 00 [facility] contractio ns contractio ns Disease Active 3-29 00:00: 00 [facility] History of delivery History of delivery Disease Active 2019-11 00:00: 00 [facility] History of cholecyste ctomy History of cholecyste ctomy Disease Active 2019-11 00:00: 00 [facility] Cholelithi asis affecting in second trimester, antepartum Cholelithi asis affecting in second trimester, antepartum Disease Active 2019-11 00:00: 00 [facility] Gallstones Gallstones Disease Active 2019-11 00:00: 00 Overview: Formattin g of this note might be different from the original. Added automatic ally from request for surgery [id number] [facility] Nausea and vomiting in Nausea and vomiting in Disease Active 2019-11 017 00:00: 00 [facility] 9 weeks gestation of 9 weeks gestation of Disease Active 2019-1117 00:00: 00 [facility] Hyperemesi s gravidarum before end of 22 week gestation with dehydratio n Hyperemesi s gravidarum before end of 22 week gestation with dehydratio n Disease Active 2019-11 007 00:00: 00 [facility] Obesity (BMI 30-39.9) Obesity (BMI 30-39.9) Disease Active 2019-11 0-07 00:00: 00 [facility] Hyperemesi s gravidarum Hyperemesi s gravidarum Disease Active 2019-11 0 00:00: 00 [facility] Desires (vaginal after ) trial Desires (vaginal after ) trial Disease Active 08-03 00:00: 00 [facility] Special screening examinatio n for viral disease Special screening examinatio n for viral disease Disease Active 9 00:00: 00 [facility] care and examinatio n of lactating mother care and examinatio n of lactating mother Disease Active 2-14 00:00: 00 [facility] Previous section complicati ng Previous section complicati ng Disease Active 1-26 00:00: 00 [facility] Atypical squamous cells of undetermin ed significan ce (ASCUS) on Papanicola ou smear of cervix Atypical squamous cells of undetermin ed significan ce (ASCUS) on Papanicola ou smear of cervix Disease Active 1-24 00:00: 00 [facility] 33 weeks gestation of 33 weeks gestation of Disease Active 2017-11 2-29 00:00: 00 [facility] Nausea and vomiting during Nausea and vomiting during Disease Active 8-22 00:00: 00 [facility] BMI 32.0-32.9, adult BMI 32.0-32.9, adult Disease Active 7-07 00:00: 00 [facility] Maternal varicella, non-immune Maternal varicella, non-immune Disease Active 6- 00:00: 00 Overview: Formattin g of this note might be different from the original. Address pp [facility] Rubella non-immune status, antepartum Rubella non-immune status, antepartum Disease Active 05-21 00:00: 00 Overview: Formattin g of this note might be different from the original. Address pp [facility] Supervisio n of high risk in third trimester Supervisio n of high risk in third trimester Disease Active 05-20 00:00: 00 [facility] Multiparit y Multiparit y Disease Active 05-20 00:00: 00 [facility] Well woman exam Well woman exam Disease Active 7-11 00:00: 00 [facility] Obesity in Obesity in Disease Active 3 00:00: 00 Overview: Formattin g of this note might be different from the original. 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 [facility] Encounter for IUD removal and reinsertio n Encounter for IUD removal and reinsertio n Disease Active 2-24 00:00: 00 [facility] ASCUS on Pap smear ASCUS on Pap smear Disease Active 5-22 00:00: 00 [facility] 32 weeks gestation of 32 weeks gestation of Disease Resolve d 2020-0 3-28 00:00: 00 2021-03-22 00:00:00 2021-03-22 13:56:51 [facility] Threatened labor, third trimester Threatened labor, third trimester Disease Resolve d 2020-0 3-28 00:00: 00 2021-03-22 00:00:00 2021-03-22 13:56:51 [facility] 31 weeks gestation of 31 weeks gestation of Disease Resolve d 2020-0 3-17 00:00: 00 2021-02-25 00:00:00 2021-02-25 15:14:05 [facility] 8 weeks gestation of 8 weeks gestation of Disease Resolve d 2019-11 0-06 00:00: 00 2021-02-25 00:00:00 2021-02-25 15:14:08 [facility] Nausea Nausea Disease Resolve d 2017-11 1-20 00:00: 00 2020-08-30 00:00:00 2020-08-30 22:27:26 [facility] Trichomona l vaginitis during in second trimester Trichomona l vaginitis during in second trimester Disease Resolve d 2017-11 00:00: 00 2019-02-04 00:00:00 2019-02-04 12:56:53 [facility] 37 weeks gestation of 37 weeks gestation of Disease Resolve d 12-18 00:00: 00 2019-01-08 00:00:00 2019-01-08 14:14:59 [facility] Dale Hick's contractio n Dale Hick's contractio n Disease Resolve d 118 00:00: 00 2019-01-08 00:00:00 2019-01-08 14:14:30 [facility] Abnormal maternal glucose tolerance, antepartum Abnormal maternal glucose tolerance, antepartum Disease Resolve d 1-17 00:00: 00 2019-01-08 00:00:00 2019-01-08 14:14:55 [facility] Family history of deafness Family history of deafness Disease Resolve d 7-03 00:00: 00 2019-01-08 00:00:00 2019-01-08 14:14:53 [facility] History of delivery History of delivery Disease Resolve d 6-26 00:00: 00 2019-01-08 00:00:00 2019-01-08 14:14:37 [facility] contractio ns contractio ns Disease Resolve d 2017-11 2-29 00:00: 00 2018-12-18 00:00:00 2018-12-18 17:48:59 [facility] Hyperemesi s gravidarum Hyperemesi s gravidarum Disease Resolve d 7-07 00:00: 00 2018-12-18 00:00:00 2018-12-18 17:48:49 [facility] 15 weeks gestation of 15 weeks gestation of Disease Resolve d 8-23 00:00: 00 2018-09-25 00:00:00 2018-09-25 13:28:19 [facility] 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 Disease Resolve d 07-17 00:00: 00 2018-09-25 00:00:00 2018-09-25 13:29:42 [facility] Trichomona s infection Trichomona s infection Disease Resolve d 07-17 00:00: 00 2018-09-25 00:00:00 2018-09-25 13:29:36 [facility] 7 weeks gestation of 7 weeks gestation of Disease Resolve d 07 00:00: 00 2018-09-25 00:00:00 2018-09-25 13:28:52 [facility] Anxiety and depression Anxiety and depression Disease Resolve d 05-17 00:00: 00 2018-09-25 00:00:00 2018-09-25 13:28:30 [facility] Irregular menstrual cycle Irregular menstrual cycle Disease Resolve d 01-25 00:00: 00 2018-09-25 00:00:00 2018-09-25 13:28:26 [facility] 38 weeks gestation of 38 weeks gestation of Disease Resolve d 07-19 00:00: 00 2018-07-21 00:00:00 2018-07-21 10:54:06 [facility] Contracept haider management Contracept haider management Disease Resolve d 01-25 00:00: 2018-05-20 00:00:00 2022-06-10 00:34:50 [facility] Breast tenderness in female Breast tenderness in female Disease Resolve d 03 00:00: 00 2018-05-20 00:00:00 2018-05-20 15:18:35 [facility] Request for sterilizat ion Request for sterilizat ion Disease Resolve d 05-17 00:00: 00 2017-11-27 00:00:00 2017-11-27 14:19:32 [facility] Right knee pain Right knee pain Disease Resolve d 2014-11 1-16 00:00: 00 2016-06-04 00:00:00 2016-06-04 14:49:01 [facility] Other malaise and fatigue Other malaise and fatigue Disease Resolve d 303 00:00: 00 2016-06-04 00:00:00 2016-06-04 14:48:55 [facility] Not immune to rubella Not immune to rubella Disease Resolve d 04-16 00:00: 00 2016-06-04 00:00:00 2022-06-10 00:30:26 [facility] Allergies, Adverse Reactions, Alerts Allergy Name Allergy Type Status Severity Reaction(s) Onset Date Inactive Date Treating Clinician Comments Source Ibuprofe n Propensi ty to adverse reaction s Active Hives 12-17 00:00: 00 Di Soares - Matthiasa luis carlos [place] Propensi ty to adverse reaction s Active Swelling 12-17 00:00: 00 Di Rizzoa luis carlos MORPHINE DRUG INGREDI Active Hives 05-10 00:00: 00 [facility] Morphine Propensi ty to adverse reaction s Active Hives 05-10 00:00: 00 Di Rizzoa luis carlos SODIUM CITRATE (BULK) DRUG Active N/V 12-18 00:00: 00 [facility] Sodium Citrate Propensi ty to adverse reaction s Active Nausea and Vomiting 12-18 00:00: 00 Di aldridge [place] Propensi ty to adverse reaction s Active Hives 04-15 00:00: 00 [facility] IBUPROFE N DRUG INGREDI Active Hives 04-15 00:00: 00 [facility] ORANGE DRUG Active Hives 04-15 00:00: 00 [facility] Ibuprofe n Propensi ty to adverse reaction s Active Hives 04-15 00:00: 00 Di Rizzoa luis carlos [place] Propensi ty to adverse reaction s Active Itching 04-15 00:00: 00 Di aldridge Social History Social Habit Start Date Stop Date Quantity Comments Source ASSERTION Not Di Soares - External Sexual orientation Mary Carmen youssef Rodger - External History SDOH Alcohol Frequency [facility] History SDOH Alcohol Std Drinks [facility] History SDOH Alcohol Binge [facility] Alcoholic beverage intake 2025-02-17 00:00:00 2025-02-17 00:00:00 [...] (event) 2022-03-17 00:00:00 2022-03-27 14:04:00 Not sure [facility] Alcohol intake 2020-10-14 00:00:00 2020-10-14 00:00:00 0 /d [facility] Sex assigned at 1990 00:00:00 1990 00[birth year]00:00 [...] 0- 00:00: 00 02-17 00:00 :00 No [id number] 10mg QD Take 1 tablet (10 mg total) by mouth daily as needed (BP >135/85). Di aldridge [place] 24 MCG oral Capsule 2023-11 0-08 00:00: 00 02-17 00:00 :00 No [id number] 24ug Take 1 capsule (24 mcg total) by mouth in the morning and 1 capsule (24 mcg total) in the evening. Take with meals. Di aldridge Naproxen 500 MG oral Tablet 2023-11 0-08 00:00: 00 02-17 00:00 :00 No [id number] 500mg Take 1 tablet (500 mg total) by mouth in the morning and 1 tablet (500 mg total) in the evening. Take with meals. Di aldridge Phentermine HCl 37.5 MG oral Tablet 2023-11 0- 00:00: 00 Yes [id number] 37.5mg Take 1 tablet (37.5 mg total) by mouth every morning (before breakfast) . Di aldridge Naproxen 500 MG oral Tablet 2023-11 0 00:00: 00 Yes [id number] 500mg Take 1 tablet (500 mg total) by mouth in the morning and 1 tablet (500 mg total) in the evening. Take with meals. Di aldridge [place] 24 MCG oral Capsule 9 00:00: 00 Yes [id number] 24ug Take 1 capsule (24 mcg total) by mouth in the morning and 1 capsule (24 mcg total) in the evening. Take with meals. Di aldridge Phentermine HCl 15 MG oral Capsule 9- 00:00: 00 08-26 00:00 :00 No [id number] 15mg Take 1 capsule (15 mg total) by mouth every morning. Di aldridge linaCLOtide (Linzess) 145 MCG oral Capsule 8-15 00:00: 00 Yes [id number] 145ug QD Take 1 capsule (145 mcg total) by mouth daily. Di aldridge Phentermine HCl 15 MG oral Capsule 8-15 00:00: 00 Yes [id number] 15mg Take 1 capsule (15 mg total) [...] 00:00: 00 07-09 00:00 :00 No 4mg [id number] 3D Take 1 tablet (4 mg total) by mouth every 8 hours as needed for nausea. Di aldridge Ondansetron HCl (Zofran) 4 MG oral Tablet 12-17 15:01: 49 12-17 00:00 :00 No 4mg [id number] 3D Take 1 tablet (4 mg total) by mouth every 8 hours as needed for nausea. Di aldridge Ondansetron HCl (Zofran) 4 MG oral Tablet 12-17 00:00: 00 Yes [id number] 4mg Q.[id number] 3D Take 1 tablet (4 mg total) by mouth every 8 hours as needed for nausea. Di aldridge No known medications 03-27 14:11: 56 No [facility] docusate 100 mg capsule 2019-11 00:00: 00 02-15 00:00 :00 No [id number] 100mg Take 1 capsule by mouth daily. May substitute for what is in stock and covered by patient plan [facility] acetaminoph en 325 mg Cap 2019-11 00:00: 00 02-15 00:00 :00 No [id number] 2{tbl} Take 2 tablets by mouth every 6 (six) hours. [facility] doxylamine- pyridoxine, vit B6, (DICLEGIS) 10-10 mg per tablet 2019-11 0-13 00:00: 00 02-28 00:00 :00 No [id number] 2{tbl} Take 2 tablets by mouth at bedtime. [facility] proCHLORper azine 10 mg tablet 2019-11 0-08 00:00: 00 02-02 00:00 :00 No [id number] 10mg Take 1 tablet by mouth every 6 (six) hours as needed (for nausea and vomiting unresponsi ve to doxylamine /pyridoxin e). [facility] vit 33-iron-fol ic-dha (SELECT-OB + DHA) 29 mg iron-1 mg -250 mg combo pack 08-03 00:00: 00 02-15 00:00 :00 No [id number] 1{packe t} Take 1 Packet by mouth daily. [facility] Immunizations Ordered Immunization Name Filled Immunization Name Date Status Comments Source TDAP 2021-01-18 00:00:00 Completed [facility] TDAP 2021-01-18 00:00:00 Completed [facility] Varicella (varivax)(chicken pox) 2018-12-20 00:00:00 Completed [facility] Varicella (varivax)(chicken pox) 2018-12-20 00:00:00 Completed [facility] TDAP (ADACEL) VACCINE 2018-12-11 00:00:00 Completed [facility] TDAP (ADACEL) VACCINE 2018-12-11 00:00:00 Completed [facility] HPV9 2016-06-04 00:00:00 Completed [facility] HPV9 2016-06-04 00:00:00 Completed [facility] TDAP 2015-04-06 00:00:00 Completed [facility] TDAP 2015-04-06 00:00:00 Completed [facility] Td 2004-11-25 00:00:00 Completed [facility] Tetanus/Diptheria 2004-11-25 00:00:00 Completed [facility] Td 2004-11-25 00:00:00 Completed [facility] Tetanus/Diptheria 2004-11-25 00:00:00 Completed [facility] Td (adult) Unknown Completed Di Se ybold [...] Seybold - External TD, NOS Unknown Completed [facility] TDAP Unknown Completed [facility] HPV9 Unknown Completed [facility] Varicella (varivax)(chicken pox) Unknown Completed [facility] Tetanus/Diptheria Unknown Completed [facility] TD, NOS Unknown Completed [facility] TDAP Unknown Completed [facility] HPV9 Unknown Completed [facility] Varicella (varivax)(chicken pox) Unknown Completed [facility] Tetanus/Diptheria Unknown Completed [facility] Vital Signs Vital Name Observation Time Observation Value Comments S ource Systolic blood pressure 2025-02-17 19:50:00 118 mm[Hg] Di Blackburnybo ld - External Diastolic blood pressure 2025-02-17 19:50:00 78 mm[Hg] Di Blackburnybo ld - External Heart rate 2025-02-17 19:50:00 78 /min Misha soto Seybold - External Body temperature 2025-02-17 19:50:00 36.67 Roxann Di Seybold - External Respiratory rate 2025-02-17 19:50:00 18 /min Di Seybold - External Body height 2025-02-17 19:50:00 162.6 cm Ayleen ey Seybold - External Body weight 2025-02-17 19:50:00 84.993 kg Ayleen ey Seybold - External BMI 2025-02-17 19:50:00 32.16 kg/m2 Ayleen ey Seybold - External Oxygen saturation in Arterial blood by Pulse oximetry 2025-02-17 19:50:00 98 /min Di Seybo ld - External Systolic blood pressure 2024-07-09 14:37:00 [...] - External BMI 2024-07-09 14:37:00 33.64 kg/m2 Ayleen ey Seybold - External Heart rate 2023-12-17 20:22:00 80 [...] Seybo ld - External Systolic blood pressure 2023-12-17 20:22:00 118 mm[Hg] Di Massey ld - External Diastolic blood pressure 2023-12-17 20:22:00 68 mm[Hg] Di Massey ld - External Systolic blood pressure 2022-03-27 19:29:00 122 mm[Hg] [facility] Diastolic blood pressure 2022-03-27 19:29:00 80 mm[Hg] [facility] Heart rate 2022-03-27 19:29:00 105 /min [facility] Body height 2022-03-27 19:29:00 162.6 cm [facility] Body weight 2022-03-27 19:29:00 87.317 kg [facility] BMI 2022-03-27 19:29:00 33.04 kg/m2 [facility] Encounters Start Date/Time End Date/Time Encounter Type Admission Type Attending [facility] Care Facility Care Department Encounter ID Source 2021-09-24 10:31:27 [facility] [id number] [facility] 2021-09-24 09:02:29 Outpatient [facility] [id number] [facility] 2021-09-24 06:47:18 Emergency [facility] [id number] [facility] 2021-09-24 06:38:20 Outpatient [facility] [id number] [facility] 2021-09-24 05:25:21 Outpatient [facility] [id number] [facility] 2021-09-24 04:28:40 Outpatient [facility] [id number] [facility] 2021-09-24 04:28:31 Emergency [facility] [id number] [facility] 2021-09-24 01:10:45 Outpatient [facility] [id number] [facility] 2021-09-23 21:07:50 Emergency [facility] [id number] [facility] 2021-09-23 07:29:02 Emergency [facility] [id number] [facility] 2021-09-23 06:08:13 Outpatient [facility] [id number] [facility] 2021-09-22 23:31:44 Outpatient [facility] [id number] [facility] 2021-09-22 23:30:48 [facility] [place] [id number] [facility] 2021-09-22 22:58:12 Emergency [facility] MOMB [id number] [facility] 2021-09-22 21:53:49 Outpatient [facility] [id number] [facility] 2021-09-22 21:28:28 Outpatient [facility] [id number] [facility] 2021-09-22 20:56:44 Emergency [facility] [id number] [facility] 2025-02-19 00:00:00 2025-02-19 00:00:00 Outpatient MD DI VÁSQUEZ [id number] [facility] 2025-02-18 00:00:00 2025-02-18 00:00:00 Outpatient DI KWOK [id number] Di aretha 2025-02-17 15:00:00 2025-02-17 15:00:00 Outpatient FERNY ARTEAGA [id number] [facility] 2024-10-23 00:00:00 2024-10-23 00:00:00 Outpatient MD DI VÁSQUEZ [id number] Di aretha 2024-09-18 13:00:00 2024-09-18 13:00:00 Outpatient LABJanet KWOK [id number] Di aretha 2024-09-18 12:00:00 2024-09-18 12:00:00 [id number] [facility]24-[facility]-10 00:00:00 2024-09-10 00:00:00 Outpatient MARKO SCOTT [id number] Di aretha 2024-09-02 00:00:00 2024-09-02 00:00:00 Outpatient MD DI VÁSQUEZ [id number] [facility] 2024-08-31 00:00:00 2024-08-31 00:00:00 Outpatient MARKO SCOTT DI KWOK [id number] [facility] 2024-08-26 13:00:00 2024-08-26 13:00:00 Outpatient MARKO SCOTT DI KWOK [id number] [facility] 2024-08-17 00:00:00 2024-08-17 00:00:00 Outpatient SONIA MARKO KWOK [id number] [facility] 2024-08-13 11:00:00 2024-08-13 11:00:00 Outpatient EVELIA SCOTTGricelda KWOK [id number] [facility] 2024-07-12 00:00:00 2024-07-12 00:00:00 Outpatient MARKO SCOTT DI KWOK [id number] [facility] 2024-07-10 00:00:00 2024-07-10 00:00:00 Outpatient MARKO SCOTT DI KWOK [id number] [facility] 2024-07-09 10:45:00 2024-07-09 10:45:00 Outpatient LAB90 DI KWOK [id number] [facility] 2024-07-09 10:00:00 2024-07-09 10:00:00 Outpatient MARKO SCOTT DI KWOK [id number] [facility] 2024-07-07 10:15:00 2024-07-07 10:15:00 Outpatient RADHA LEDESMA [facility] [id number] [facility] 2024-07-01 00:00:00 2024-07-01 16:22:57 Telephone Graciela Burks [facility] A[facility] [id number] [facility] 2024-03-04 15:30:00 2024-03-04 15:30:00 Outpatient RAMRIEZ, TUVALUAN DI DI [id number] Di Seybold 2024-02-25 00:00:00 2024-02-25 00:00:00 Outpatient RAMIREZ, TUVALUAN DI KWOK [id number] Di Seybold 2024-02-22 00:00:00 2024-02-22 00:00:00 Outpatient LEON, NOEL DI KWOK [id number] Di Seybold 2024-02-20 12:30:00 2024-02-20 12:30:00 Outpatient NEW, VESNA KWOK DI [id number] Di Seybold 2024-02-18 07:45:00 2024-02-18 07:45:00 Outpatient RAMIREZ, TUVALUAN DI KWOK [id number] Di Seybold 2024-02-18 00:00:00 2024-02-18 00:00:00 Outpatient RAMIREZ, TUVALUAN DI KWOK [id number] Di Seybold 2024-02-18 00:00:00 2024-02-18 00:00:00 Outpatient RAMIREZ, TUVALUAN DI KWOK [id number] Di Seybold 2024-02-11 13:05:00 2024-02-11 13:05:00 Outpatient LAB90 DI KWOK [id number] Di Seybold 2024-02-11 13:00:00 2024-02-11 13:00:00 Outpatient NEW, VESNA DI KWOK [id number] Di Seybold 2024-02-11 00:00:00 2024-02-11 00:00:00 Outpatient RAMIREZ, TUVALUAN DI KWOK [id number] Di Seybold 2024-02-10 12:30:00 2024-02-10 12:30:00 Outpatient NEW, VESNA DI KWOK [id number] Di Seybold 2024-02-06 00:00:00 2024-02-06 00:00:00 Outpatient RAMIREZ, TUVALUAN DI KWOK [id number] Di Seybold 2024-02-06 00:00:00 2024-02-06 00:00:00 Outpatient DI KWOK [id number] Di Seybold 2024-01-29 15:15:00 2024-01-29 15:15:00 Outpatient RAMIREZYUN Vergara [id number] [facility] 2024-01-23 15:20:00 2024-01-23 15:20:00 Outpatient DI KWOK [id number] [facility] 2024-01-23 00:00:00 2024-01-23 00:00:00 Outpatient RAMIREZYUN Vergara [id number] [facility] 2024-01-23 00:00:00 2024-01-23 00:00:00 Outpatient RAMIREZYUN Vergara [id number] [facility] 2024-01-21 00:00:00 2024-01-21 00:00:00 Outpatient RAMIREZYUN Vergara [id number] [facility] 2024-01-01 15:45:00 2024-01-01 15:45:00 Outpatient RAMIREZYUN Vergara [id number] [facility] 2023-12-26 00:00:00 2023-12-26 00:00:00 Outpatient AMILCAR FIELD [id number] [facility] 2023-12-17 14:30:00 2023-12-17 14:30:00 Outpatient AMILCAR FIELD [id number] [facility] 2023-02-07 16:31:26 2023-02-07 16:31:26 Outpatient [facility] [id number] José Luis Britton 2022-03-28 00:00:00 2022-03-28 00:00:00 Telephone Charles James [facility] [id number] [facility] 2022-03-27 14:30:00 2022-03-27 23:59:00 Outpatient R CHARLES JAMES [facility] [id number] [facility] 2022-03-27 14:30:00 2022-03-27 15:00:00 Office Visit Ember Franks [facility] [id number] [facility] 2022-03-27 14:30:00 2022-03-27 14:30:00 Outpatient R EMBER FRANKS [facility] [id number] [facility] 2022-03-27 00:00:00 2022-03-27 00:00:00 Orders Only Doctor Unassigned, [place] [facility] [id number] [facility] 2021-05-10 14:30:00 2021-05-10 14:30:00 Outpatient CORNELIUS HERNANDEZ [facility] [id number] [facility] 2021-03-22 13:46:41 2021-03-22 14:24:31 Routine Visit Cornelius Zavaleta [facility] [place] [facility] [id number] 2021-03-22 14:00:00 2021-03-22 14:00:00 Outpatient CORNELIUS HERNANDEZ [facility] [id number] [facility] 2021-03-06 11:00:00 2021-03-06 11:00:00 Outpatient DAVE MITCHELL [facility] [id number] [facility] 2021-03-01 12:45:00 2021-03-01 12:45:00 Outpatient CORNELIUS HERNANDEZ [facility] [id number] [facility] 2021-02-19 15:41:00 2021-02-19 15:41:00 Outpatient CORNELIUS ARAMBULA [facility] JOANN [id number] [facility] 2021-02-15 14:30:00 2021-02-15 14:30:00 Outpatient CORNELIUS HERNANDEZ [facility] [id number] [facility] 2021-02-01 15:15:00 2021-02-01 15:15:00 Outpatient CORNELIUS HERNANDEZ [facility] [id number] [facility] 2021-01-18 13:45:00 2021-01-18 13:45:00 Outpatient CORNELIUS HERNANDEZ [facility] [id number] [facility] 2021-01-06 09:45:00 2021-01-06 09:45:00 Outpatient CORNELIUS HERNANDEZ [facility] [id number] [facility] 2020-12-23 11:00:00 2020-12-23 11:00:00 Outpatient R BRITTMARITZA GRACIELA [facility] [id number] [facility] 2020-12-20 10:45:00 2020-12-20 10:45:00 Outpatient R BRITTMARITZAGRACIELA [facility] [id number] [facility] 2020-12-20 09:45:00 2020-12-20 09:45:00 Outpatient R CORNELIUS ZAVALETA [facility] [id number] [facility] 2020-12-13 14:15:00 2020-12-13 14:15:00 Outpatient JAMAAL MCCORMICK [facility] [id number] [facility] 2020-11-29 14:30:00 2020-11-29 14:30:00 Outpatient R [facility] [id number] [facility] 2020-11-22 14:00:00 2020-11-22 14:00:00 Outpatient R SHELLIESMITH GRACIELA [facility] [id number] [facility] 2020-11-15 13:00:00 2020-11-15 13:00:00 Outpatient P CHRISTINA GOMEZ [facility] [id number] [facility] 2020-11-08 15:00:00 2020-11-08 15:00:00 Outpatient P PENNYBARBYEDYTA MASON [facility] [id number] [facility] 2020-10-31 15:15:00 2020-10-31 15:15:00 Outpatient P DARWINSTEVE DARWINSTEVE [facility] [id number] [facility] 2020-10-24 13:45:00 2020-10-24 13:45:00 Outpatient R GRACIELA BURKS [facility] [id number] [facility] 2020-10-14 00:00:00 2020-10-14 00:00:00 Case Management [place] Laura Mcdermott [facility] [id number] [facility] 2020-10-06 12:45:00 2020-10-06 12:45:00 Outpatient R CORNELIUS ZAVALETA [facility] [id number] [facility] 2020-09-08 10:45:00 2020-09-08 10:45:00 Outpatient R CORNELIUS ZAVALETA [facility] [id number] [facility] 2020-08-31 12:45:00 2020-08-31 12:45:00 Outpatient R CORNELIUS ZAVALETA [facility] [id number] [facility] 2020-08-24 13:30:00 2020-08-24 13:30:00 Outpatient P [facility] [id number] [facility] 2020-08-03 12:45:00 2020-08-03 12:45:00 Outpatient R CORNELIUS ZAVALETA [facility] [id number] [facility] 2020-07-12 14:15:00 2020-07-12 14:15:00 Outpatient R CORNELIUS ZAVALETA [facility] [id number] [facility] 2020-03-21 15:00:00 2020-03-21 15:00:00 Outpatient CORNELIUS HERNANDEZ [facility] [id number] [facility] Notes Date/Time Note Provider Source 2025-02-17 14:54:22 Chief Complaint Patient presents with ER F/U Urgent care for muscle strain Nya Erickson LVN [facility] 2024-07-09 09:41:35 Chief Complaint Patient presents with Physical Patient is fasting. No other issues to discuss Aurora Hartley MA II T [facility] 2024-07-01 16:18:05 Spoke with patient and she had [employer] O and we are not in network with her plan. [facility] 2024-07-01 13:56:34 Suraj Fuentes is a 33 year old female calling requesting to talk with an nurse having problems with an vagina lip was swollen x this morning. Please contact patient at [phone] (home) Raya Sandoval [facility] 2023-12-17 14:25:16 Follow-up Hospitalization (Hospital follow up for umbilical hernia) Nya Erickson LVN [facility]
--- NOTE | 2025-02-21 02:15 | EDPHYS ---
Physician Documentation [facility] Name: Suraj Courtney Age: 34 yrs Sex: Female : 1990 Arrival Date: 02/21/2025 Time: 01:33 Bed DX4 Private MD: ED Physician Pancho Greene HPI: 02/21 02:03 This 34 yrs old Female presents to ER via Unassigned with complaints of Arm jessica Pain. 02:03 The patient or guardian complains of an abrasion. The complaints affect the right jessica axilla. Context: The problem was sustained at an unknown location. Treatment prior to arrival includes: prescription medications, Ultram or Ultracet, keflex. Associated signs and symptoms: Pertinent positives: pain. Severity of symptoms: At their worst the symptoms were mild, moderate, in the emergency department the symptoms are unchanged. The patient has experienced similar episodes in the past, a few times. 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 - Infectious Disease History:: Denies. - Family history:: not pertinent. - Social history:: Smoking status: Patient denies any tobacco usage or history of. Patient/guardian denies using alcohol, street drugs. ROS: 02:08 Constitutional: Negative for fever, chills, and weight loss, Eyes: Negative for injury, jessica pain, redness, and discharge, ENT: Negative for injury, pain, and discharge, Neck: Negative for injury, pain, and swelling, Cardiovascular: Negative for chest pain, palpitations, and edema, Respiratory: Negative for shortness of breath, cough, wheezing, and pleuritic chest pain, Abdomen/GI: Negative for abdominal pain, nausea, vomiting, diarrhea, and constipation, Back: Negative for injury and pain, : Negative for injury, bleeding, discharge, and swelling, Skin: Negative for injury, rash, and discoloration, Neuro: Negative for headache, weakness, numbness, tingling, and seizure, Psych: Negative for depression, anxiety, suicide ideation, homicidal ideation, and hallucinations, Allergy/Immunology: Negative for hives, rash, and allergies, Endocrine: Negative for neck swelling, polydipsia, polyuria, polyphagia, and marked weight changes, Hematologic/Lymphatic: Negative for swollen nodes, abnormal bleeding, and unusual bruising, 02:08 MS/extremity: Positive for pain, swelling, tenderness, of the right axilla, Exam: 02:08 Constitutional: This is a well developed, well nourished patient who is awake, alert, jessica and in no acute distress. Head/Face: Normocephalic, atraumatic. Eyes: Pupils equal round and reactive to light, extra-ocular motions intact. Lids and lashes normal. Conjunctiva and sclera are non-icteric and not injected. Cornea within normal limits. Periorbital areas with no swelling, redness, or edema. ENT: Nares patent. No nasal discharge, no septal abnormalities noted. Tympanic membranes are normal and external auditory canals are clear. Oropharynx with no redness, swelling, or masses, exudates, or evidence of obstruction, uvula midline. Mucous membranes moist. Neck: Trachea midline, no thyromegaly or masses palpated, and no cervical lymphadenopathy. Supple, full range of motion without nuchal rigidity, or vertebral point tenderness. No Meningismus. Chest/axilla: Normal chest wall appearance and motion. Nontender with no deformity. No lesions are appreciated. Cardiovascular: Regular rate and rhythm with a normal S1 and S2. No gallops, murmurs, or rubs. Normal PMI, no JVD. No pulse deficits. Respiratory: Lungs have equal breath sounds bilaterally, clear to auscultation and percussion. No rales, rhonchi or wheezes noted. No increased work of breathing, no retractions or nasal flaring. Abdomen/GI: Soft, non-tender, with normal bowel sounds. No distension or tympany. No guarding or rebound. No evidence of tenderness throughout. Back: No spinal tenderness. No costovertebral tenderness. Full range of motion. MS/ Extremity: Pulses equal, no cyanosis. Neurovascular intact. Full, normal range of motion., bilateral aka Neuro: Awake and alert, GCS 15, oriented to person, place, time, and situation. Cranial nerves II-XII grossly intact. Motor strength 5/5 in all extremities. Sensory grossly intact. Cerebellar exam normal. Normal gait. 02:08 Skin: cellulitis, that is minimal, induration, that is mild is noted, Vital Signs: 02:00 BP 139 / 78; Pulse 72; Resp 17 S; Temp 98.2(O); Pulse Ox 99% on R/A; Weight 84.37 kg lg3 (R); Height 5 ft. 4 in. (R); 02:00 Body Mass Index 31.93 (84.37 kg, 162.56 cm) lg3 MDM: 01:52 Medical Screening Exam initiated jessica 02:12 Differential diagnosis: contusion, tendonitis. Data reviewed: vital signs, nurses [facility] notes. Consideration of Admission/Observation Escalation of care including admission/observation considered. I considered the following discharge prescriptions or medication management in the emergency department Medications were administered in the Emergency Department. See MAR. Independent interpretation of the following test(s) in the Emergency Department Radiology Department Ultrasound: My interpretation is right axilla. Test considered but Not performed: Labs: no cbc, comp met. Care significantly affected by the following chronic conditions: none. Administered Medications: 02:34 Drug: Hydrocodone-Acetaminophen PO (7.5 mg-325 mg) 1 tabs PO once Route: PO; cg 02:45 Follow up: Response: No adverse reaction lg3 02:36 Drug: Trimethoprim-Sulfamethoxazole PO (160 mg-800 mg (DS) 1 tablet PO once Route: PO; cg 02:46 Follow up: Response: No adverse reaction lg3 Disposition Summary: 02/21/25 02:15 Discharge Ordered Notes: Location: Home [facility] Problem: new [facility] Symptoms: have improved jessica Condition: Stable jessica Diagnosis - Cellulitis of other parts of limb - right axilla jessica Followup: jessica - With: Private Physician - When: 2 - 3 days - Reason: Recheck today's complaints, Continuance of care, Re-evaluation by your physician Discharge Instructions: - Discharge Summary Sheet jessica - Cellulitis, Adult [facility] Forms: - Medication Reconciliation Form jessica - Antibiotic Education jessica - Prescription Opioid Use jessica - Patient Portal Instructions [facility] - Leadership Thank You Letter jessica Prescriptions: - Bactrim DS 800-160 mg Oral Tablet - take 1 tablet ORAL route every 12 hours for 10 days; 20 tablet; Refills: 0, jessica Product Selection Permitted Signatures: Pancho Greene MD MD cha Garcia, Cindy RN RN cg Sera Win RN RN lg3 Corrections: (The following items were deleted from the chart) 02:16 02:15 Cellulitis and acute lymphangitis of other parts of limb - left axilla jessica lopez
[2025-02-21] MEDS ORDERED: HYDROCODONE/APAP 7.5/325 MG TAB ONE (02:29)
[2025-02-21] MEDS ORDERED: SMZ./TMP. 800/160 MG TABLET ONE (02:29)
--- NOTE | 2025-02-21 02:46 | ER ---
Nurse's Notes [facility] Name: Suraj Courtney Age: 34 yrs Sex: Female : 1990 Arrival Date: 02/21/2025 Time: 01:33 Bed DX4 Private MD: Diagnosis: Cellulitis of other parts of limb-right axilla Presentation: 02/21 02:00 Chief complaint: Patient states: right sided axilla pain. Coronavirus screen: Client lg3 denies travel out of the [place] in the last 14 days. At this time, the client does not indicate any symptoms associated with coronavirus-19. Ebola Screen: No symptoms or risks identified at this time. Initial Sepsis Screen: Does the patient meet any 2 criteria? No. Patient's initial sepsis screen is negative. Does the patient have a suspected source of infection? No. Patient's initial sepsis screen is negative. Risk Assessment: Do you want to hurt yourself or someone else? Patient reports no desire to harm self or others. Onset of symptoms is unknown. 02:00 Method Of Arrival: Ambulatory lg3 02:00 Acuity: SHAW 5 lg3 Triage Assessment: 02:04 General: Appears in no apparent distress. comfortable, Behavior is calm, cooperative. lg3 Pain: Complains of pain in right axilla. EENT: No deficits noted. No signs and/or symptoms were reported regarding the EENT system. Neuro: No deficits noted. Forbes Agitation-Sedation Scale (RASS): 0 - Alert and Calm Level of Consciousness is awake, alert, obeys commands, Oriented to person, place, time, situation. Cardiovascular: No deficits noted. Denies chest pain, shortness of breath, Capillary refill < 3 seconds Clubbing of nail beds is absent JVD is absent Patient's skin is warm and dry. Respiratory: No deficits noted. Airway is patent Respiratory effort is even, unlabored, Respiratory pattern is regular, symmetrical. GI: No deficits noted. No signs and/or symptoms were reported involving the gastrointestinal system. : No signs and/or symptoms were reported regarding the genitourinary system. Derm: No deficits noted. Skin is intact, is healthy with good turgor, Skin is dry, Skin is normal, Skin temperature is warm. Musculoskeletal: No deficits noted. Circulation, motion, and sensation intact. Range of motion: intact in all extremities, Reports pain in right axilla. 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 - Infectious Disease History:: Denies. - Family history:: not pertinent. - Social history:: Smoking status: Patient denies any tobacco usage or history of. Patient/guardian denies using alcohol, street drugs. Screenin:00 [facility] ED Fall Risk Assessment (Adult) History of falling in the last 3 months, lg3 including since admission No falls in past 3 months (0 pts) Confusion or Disorientation No (0 pts) Intoxicated or Sedated No (0 pts) Impaired Gait No (0 pts) Mobility Assist Device Used No (0 pt) Altered Elimination No (0 pt) Score/Fall Risk Level 0 - 2 = Low Risk Oriented to surroundings, Maintained a safe environment, Educated pt \T\ family on fall prevention, incl call for assistance when getting out of bed, Assessed \T\ reinforced patient's understanding of fall precautions. Abuse screen: Denies threats or abuse. Denies injuries from another. Nutritional screening: No deficits noted. Tuberculosis screening: No symptoms or risk factors identified. Assessment: 02:00 General: see triage assessment. lg3 Vital Signs: 02:00 BP 139 / 78; Pulse 72; Resp 17 S; Temp 98.2(O); Pulse Ox 99% on R/A; Weight 84.37 kg lg3 (R); Height 5 ft. 4 in. (R); 02:00 Body Mass Index 31.93 (84.37 kg, 162.56 cm) lg3 ED Course: 01:36 Patient arrived in ED. gm2 01:52 Pancho Greene MD is Attending Physician. jessica 02:00 Patient has correct armband on for positive identification. lg3 02:00 No provider procedures requiring assistance completed. Patient did not have IV access lg3 during this emergency room visit. 02:04 Arm band placed on right wrist. lg3 02:43 Triage completed. lg3 Administered Medications: 02:34 Drug: Hydrocodone-Acetaminophen PO (7.5 mg-325 mg) 1 tabs PO once Route: PO; cg 02:45 Follow up: Response: No adverse reaction lg3 02:36 Drug: Trimethoprim-Sulfamethoxazole PO (160 mg-800 mg (DS) 1 tablet PO once Route: PO; cg 02:46 Follow up: Response: No adverse reaction lg3 Medication: 02:00 VIS not applicable for this client. lg3 Outcome: 02:15 Discharge ordered by . jessica 02:46 Discharged to home ambulatory, with significant other, lg3 02:46 Condition: stable 02:46 Discharge instructions given to patient, Instructed on discharge instructions, follow up and referral plans. medication usage, Demonstrated understanding of instructions, follow-up care, medications, Prescriptions given X 1, 02:46 Patient left the ED. lg3 Signatures: Pancho Greene MD MD cha Garcia, Cindy, RN RN Sera Win, RN RN lg3 Katrina Breaux [facility]
[2025-02-21 02:51] VITALS: BP 139/78; TEMP 98.2; O2SAT 99
== END 2025-02-21 02:46 | disposition home or self-care (01) ==
LOC: ER 01:33
DX: L03.113 Cellulitis of right upper limb (principal)
CPT/HCPCS: 99283

== ENCOUNTER 2025-02-21 22:31 | Emergency (ER) | payer OTHER ==
--- OUTSIDE RECORDS SUMMARY | 2025-02-21 22:36 | XMS REPORT | Continuity of Care Document ---
Author Name Unknown Address [address] [place] [address] [facility] Address [address] [place] [address] Care Team Providers Care Service Director Name Role Phone Brittney Liu Primary Care Physician [phone] MD KATHLEEN Attending Clinician UnavailFERNY Alicea Attending Clinician Unavailable LAB90 Attending Clinician Unavailable VESNA WOLFF Attending Clinician UnavailMARKO Duran Attending Clinician Unavailable RADHA KELLOGG Attending Clinician Unavailable Graciela Urbano Attending Clinician + YUN RAMIREZ Attending Clinician Unavailable NOEL LEON Attending Clinician Unavailable AMILCAR FIELD Attending Clinician Unavailab Charles Man MD Attending Clinician [phone] CHARLES JAMES Attending Clinician UnavailEmber Triplett Attending Clinician [phone] EMBER FRANKS Attending Clinician Unavailable Doctor Unassigned, Crest Attending Clinician U navailable CORNELIUS ZAVALETA Attending Clinician Unavailab Cornelius Garcia Attending Clinician + [phone] DAVE BERMAN Attending Clinician Unavailable GRACIELA BURKS [...] Expirati on Date Source [facility] MEDICA[facility] [id number] 2018 00:00:00 [facility] CANDLE CUTTER 94 9 [id number] 2024 00:00:00 [facility] HERB ARREOLA COPAY FOCUS 9 [id number] 2023 00:00:00 [facility] [id number] 2023 00:00:00 Problems Condition Name Condition Details [...] contracept haider Disease Active 616 00:00: 00 [facility] History of bilateral tubal ligation History of bilateral tubal ligation Disease Active 16 00:00: 00 [facility] Overweight (BMI 25.0-29.9) Overweight (BMI 25.0-29.9) Disease Active 616 00:00: 00 [facility] S/P section S/P section Disease Active 4-06 00:00: 00 [facility] contractio ns contractio ns Disease Active 3-29 00:00: 00 [facility] History of delivery History of delivery Disease Active 2019-11 00:00: 00 [facility] History of cholecyste ctomy History of cholecyste ctomy Disease Active 2019-11 00:00: 00 [facility] Cholelithi asis affecting in second trimester, antepartum Cholelithi asis affecting in second trimester, antepartum Disease Active 2019-11 00:00: 00 [facility] Gallstones Gallstones Disease Active 2019-11 00:00: 00 Overview: Formattin g of this note might be different from the original. Added automatic ally from request for surgery [id number] [facility] Nausea and vomiting in Nausea and vomiting in Disease Active 2019-11 017 00:00: 00 [facility] 9 weeks gestation of 9 weeks gestation of Disease Active 2019-1117 00:00: 00 [facility] Hyperemesi s gravidarum before end of 22 week gestation with dehydratio n Hyperemesi s gravidarum before end of 22 week gestation with dehydratio n Disease Active 2019-11 007 00:00: 00 [facility] Obesity (BMI 30-39.9) Obesity (BMI 30-39.9) Disease Active 2019-11 0-07 00:00: 00 [facility] Hyperemesi s gravidarum Hyperemesi s gravidarum Disease Active 2019-11 0 00:00: 00 [facility] Desires (vaginal after ) trial Desires (vaginal after ) trial Disease Active 08-03 00:00: 00 [facility] Special screening examinatio n for viral disease Special screening examinatio n for viral disease Disease Active 9 00:00: 00 [facility] care and examinatio n of lactating mother care and examinatio n of lactating mother Disease Active 2-14 00:00: 00 [facility] Previous section complicati ng Previous section complicati ng Disease Active 1-26 00:00: 00 [facility] Atypical squamous cells of undetermin ed significan ce (ASCUS) on Papanicola ou smear of cervix Atypical squamous cells of undetermin ed significan ce (ASCUS) on Papanicola ou smear of cervix Disease Active 1-24 00:00: 00 [facility] 33 weeks gestation of 33 weeks gestation of Disease Active 2017-11 2-29 00:00: 00 [facility] Nausea and vomiting during Nausea and vomiting during Disease Active 8-22 00:00: 00 [facility] BMI 32.0-32.9, adult BMI 32.0-32.9, adult Disease Active 7-07 00:00: 00 [facility] Maternal varicella, non-immune Maternal varicella, non-immune Disease Active 6- 00:00: 00 Overview: Formattin g of this note might be different from the original. Address pp [facility] Rubella non-immune status, antepartum Rubella non-immune status, antepartum Disease Active 05-21 00:00: 00 Overview: Formattin g of this note might be different from the original. Address pp [facility] Supervisio n of high risk in third trimester Supervisio n of high risk in third trimester Disease Active 05-20 00:00: 00 [facility] Multiparit y Multiparit y Disease Active 05-20 00:00: 00 [facility] Well woman exam Well woman exam Disease Active 7-11 00:00: 00 [facility] Obesity in Obesity in Disease Active 3 00:00: 00 Overview: Formattin g of this note might be different from the original. ICD10 Diagnosis Term [employer] [facility] Encounter for IUD removal and reinsertio n Encounter for IUD removal and reinsertio n Disease Active 2-24 00:00: 00 [facility] ASCUS on Pap smear ASCUS on Pap smear Disease Active 5-22 00:00: 00 [facility] 32 weeks gestation of 32 weeks gestation of Disease Resolve d 2020-0 3-28 00:00: 00 2021-03-22 00:00:00 2021-03-22 13:56:51 [facility] Threatened labor, third trimester Threatened labor, third trimester Disease Resolve d 2020-0 3-28 00:00: 00 2021-03-22 00:00:00 2021-03-22 13:56:51 [facility] 31 weeks gestation of 31 weeks gestation of Disease Resolve d 2020-0 3-17 00:00: 00 2021-02-25 00:00:00 2021-02-25 15:14:05 [facility] 8 weeks gestation of 8 weeks gestation of Disease Resolve d 2019-11 0-06 00:00: 00 2021-02-25 00:00:00 2021-02-25 15:14:08 [facility] Nausea Nausea Disease Resolve d 2017-11 1-20 00:00: 00 2020-08-30 00:00:00 2020-08-30 22:27:26 [facility] Trichomona l vaginitis during in second trimester Trichomona l vaginitis during in second trimester Disease Resolve d 2017-11 00:00: 00 2019-02-04 00:00:00 2019-02-04 12:56:53 [facility] 37 weeks gestation of 37 weeks gestation of Disease Resolve d 12-18 00:00: 00 2019-01-08 00:00:00 2019-01-08 14:14:59 [facility] Collbran Hick's contractio n Collbran Hick's contractio n Disease Resolve d 118 00:00: 00 2019-01-08 00:00:00 2019-01-08 14:14:30 [facility] Abnormal maternal glucose tolerance, antepartum Abnormal maternal glucose tolerance, antepartum Disease Resolve d 1-17 00:00: 00 2019-01-08 00:00:00 2019-01-08 14:14:55 [facility] Family history of deafness Family history of deafness Disease Resolve d 7-03 00:00: 00 2019-01-08 00:00:00 2019-01-08 14:14:53 [facility] History of delivery History of delivery Disease Resolve d 6-26 00:00: 00 2019-01-08 00:00:00 2019-01-08 14:14:37 [facility] contractio ns contractio ns Disease Resolve d 2017-11 2-29 00:00: 00 2018-12-18 00:00:00 2018-12-18 17:48:59 [facility] Hyperemesi s gravidarum Hyperemesi s gravidarum Disease Resolve d 7-07 00:00: 00 2018-12-18 00:00:00 2018-12-18 17:48:49 [facility] 15 weeks gestation of 15 weeks gestation of Disease Resolve d 8-23 00:00: 00 2018-09-25 00:00:00 2018-09-25 13:28:19 [facility] 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 Disease Resolve d 07-17 00:00: 00 2018-09-25 00:00:00 2018-09-25 13:29:42 [facility] Trichomona s infection Trichomona s infection Disease Resolve d 07-17 00:00: 00 2018-09-25 00:00:00 2018-09-25 13:29:36 [facility] 7 weeks gestation of 7 weeks gestation of Disease Resolve d 07 00:00: 00 2018-09-25 00:00:00 2018-09-25 13:28:52 [facility] Anxiety and depression Anxiety and depression Disease Resolve d 05-17 00:00: 00 2018-09-25 00:00:00 2018-09-25 13:28:30 [facility] Irregular menstrual cycle Irregular menstrual cycle Disease Resolve d 01-25 00:00: 00 2018-09-25 00:00:00 2018-09-25 13:28:26 [facility] 38 weeks gestation of 38 weeks gestation of Disease Resolve d 07-19 00:00: 00 2018-07-21 00:00:00 2018-07-21 10:54:06 [facility] Contracept haider management Contracept haider management Disease Resolve d 01-25 00:00: 2018-05-20 00:00:00 2022-06-10 00:34:50 [facility] Breast tenderness in female Breast tenderness in female Disease Resolve d 03 00:00: 00 2018-05-20 00:00:00 2018-05-20 15:18:35 [facility] Request for sterilizat ion Request for sterilizat ion Disease Resolve d 05-17 00:00: 00 2017-11-27 00:00:00 2017-11-27 14:19:32 [facility] Right knee pain Right knee pain Disease Resolve d 2014-11 1-16 00:00: 00 2016-06-04 00:00:00 2016-06-04 14:49:01 [facility] Other malaise and fatigue Other malaise and fatigue Disease Resolve d 303 00:00: 00 2016-06-04 00:00:00 2016-06-04 14:48:55 [facility] Not immune to rubella Not immune to rubella Disease Resolve d 04-16 00:00: 00 2016-06-04 00:00:00 2022-06-10 00:30:26 [facility] Allergies, Adverse Reactions, Alerts Allergy Name Allergy Type Status Severity Reaction(s) Onset Date Inactive Date Treating Clinician Comments Source Ibuprofe n Propensi ty to adverse reaction s Active Hives 12-17 00:00: 00 Di Soares - Matthiasa luis carlos [place] Propensi ty to adverse reaction s Active Swelling 12-17 00:00: 00 Di Rizzoa luis carlos MORPHINE DRUG INGREDI Active Hives 05-10 00:00: 00 [facility] Morphine Propensi ty to adverse reaction s Active Hives 05-10 00:00: 00 Di Rizzoa luis carlos SODIUM CITRATE (BULK) DRUG Active N/V 12-18 00:00: 00 [facility] Sodium Citrate Propensi ty to adverse reaction s Active Nausea and Vomiting 12-18 00:00: 00 Di aldridge [place] Propensi ty to adverse reaction s Active Hives 04-15 00:00: 00 [facility] IBUPROFE N DRUG INGREDI Active Hives 04-15 00:00: 00 [facility] ORANGE DRUG Active Hives 04-15 00:00: 00 [facility] Ibuprofe n Propensi ty to adverse reaction s Active Hives 04-15 00:00: 00 Di Rizzoa luis carlos [place] Propensi ty to adverse reaction s Active Itching 04-15 00:00: 00 Di aldridge Social History Social Habit Start Date Stop Date Quantity Comments Source ASSERTION Not Di Soares - External Sexual orientation Mary Carmen youssef Rodger - External History SDOH Alcohol Frequency [facility] History SDOH Alcohol Std Drinks [facility] History SDOH Alcohol Binge [facility] Alcoholic beverage intake 2025-02-17 00:00:00 2025-02-17 00:00:00 [...] 00:00:00 2022-03-27 14:04:00 Not sure [facility] Alcohol intake 2020-10-14 00:00:00 2020-10-14 00:00:00 0 /d [facility] Sex assigned at 1990 00:00:00 1990 00[birth year]00:00 [...] 0- 00:00: 00 02-17 00:00 :00 No [id number] 10mg QD Take 1 tablet (10 mg total) by mouth daily as needed (BP >135/85). Di aldridge [place] 24 MCG oral Capsule 2023-11 0-08 00:00: 00 02-17 00:00 :00 No [id number] 24ug Take 1 capsule (24 mcg total) by mouth in the morning and 1 capsule (24 mcg total) in the evening. Take with meals. Di aldr[facility] Naproxen 500 MG oral Tablet 2023-11 0-08 00:00: 00 02-17 00:00 :00 No [id number] 500mg Take 1 tablet (500 mg total) by mouth in the morning and 1 tablet (500 mg total) in the evening. Take with meals. Di aldr[facility] Phentermine HCl 37.5 MG oral Tablet 2023-11 0- 00:00: 00 Yes [id number] 37.5mg Take 1 tablet (37.5 mg total) by mouth every morning (before breakfast) . Di aldridge Naproxen 500 MG oral Tablet 2023-11 0 00:00: 00 Yes [id number] 500mg Take 1 tablet (500 mg total) by mouth in the morning and 1 tablet (500 mg total) in the evening. Take with meals. Di aldridge [place] 24 MCG oral Capsule 9 00:00: 00 Yes [id number] 24ug Take 1 capsule (24 mcg total) by mouth in the morning and 1 capsule (24 mcg total) in the evening. Take with meals. Di aldridge Phentermine HCl 15 MG oral Capsule 9- 00:00: 00 08-26 00:00 :00 No [id number] 15mg Take 1 capsule (15 mg total) by mouth every morning. Di aldridge linaCLOtide (Linzess) 145 MCG oral Capsule 8-15 00:00: 00 Yes [id number] 145ug QD Take 1 capsule (145 mcg total) by mouth daily. Di al[facility] Phentermine HCl 15 MG oral Capsule 8-15 00:00: 00 Yes [id number] 15mg Take 1 capsule (15 mg total) [...] 00:00: 00 07-09 00:00 :00 No 4mg [id number] 3D Take 1 tablet (4 mg total) by mouth every 8 hours as needed for nausea. Di al[facility] Ondansetron HCl (Zofran) 4 MG oral Tablet 12-17 15:01: 49 12-17 00:00 :00 No 4mg Q.[id number] 3D Take 1 tablet (4 mg total) by mouth every 8 hours as needed for nausea. Di aldridge Ondansetron HCl (Zofran) 4 MG oral Tablet 12-17 00:00: 00 Yes [id number] 4mg Q.[id number] 3D Take 1 tablet (4 mg total) by mouth every 8 hours as needed for nausea. Di aldridge No known medications 03-27 14:11: 56 No [facility] docusate 100 mg capsule 2019-11 00:00: 00 02-15 00:00 :00 No [id number] 100mg Take 1 capsule by mouth daily. May substitute for what is in stock and covered by patient plan [facility] acetaminoph en 325 mg Cap 2019-11 00:00: 00 02-15 00:00 :00 No [id number] 2{tbl} Take 2 tablets by mouth every 6 (six) hours. [facility] doxylamine- pyridoxine, vit B6, (DICLEGIS) 10-10 mg per tablet 2019-11 0-13 00:00: 00 02-28 00:00 :00 No [id number] 2{tbl} Take 2 tablets by mouth at bedtime. [facility] proCHLORper azine 10 mg tablet 2019-11 0-08 00:00: 00 02-02 00:00 :00 No [id number] 10mg Take 1 tablet by mouth every 6 (six) hours as needed (for nausea and vomiting unresponsi ve to doxylamine /pyridoxin e). [facility] vit 33-iron-fol ic-dha (SELECT-OB + DHA) 29 mg iron-1 mg -250 mg combo pack 08-03 00:00: 00 02-15 00:00 :00 No [id number] 1{packe t} Take 1 Packet by mouth daily. [facility] Immunizations Ordered Immunization Name Filled Immunization Name Date Status Comments Source TDAP 2021-01-18 00:00:00 Completed [facility] TDAP 2021-01-18 00:00:00 Completed [facility] Varicella (varivax)(chicken pox) 2018-12-20 00:00:00 Completed [facility] Varicella (varivax)(chicken pox) 2018-12-20 00:00:00 Completed [facility] TDAP (ADACEL) VACCINE 2018-12-11 00:00:00 Completed [facility] TDAP (ADACEL) VACCINE 2018-12-11 00:00:00 Completed [facility] HPV9 2016-06-04 00:00:00 Completed [facility] HPV9 2016-06-04 00:00:00 Completed [facility] TDAP 2015-04-06 00:00:00 Completed [facility] TDAP 2015-04-06 00:00:00 Completed [facility] Td 2004-11-25 00:00:00 Completed [facility] Tetanus/Diptheria 2004-11-25 00:00:00 Completed [facility] Td 2004-11-25 00:00:00 Completed [facility] Tetanus/Diptheria 2004-11-25 00:00:00 Completed [facility] Td (adult) Unknown Completed Di Se ybold [...] External TD, NOS Unknown Completed [facility] TDAP Unknown Completed [facility] HPV9 Unknown Completed [facility] Varicella (varivax)(chicken pox) Unknown Completed [facility] Tetanus/Diptheria Unknown Completed Un [facility] TD, NOS Unknown Completed [facility] TDAP Unknown Completed [facility] HPV9 Unknown Completed [facility] Varicella (varivax)(chicken pox) Unknown Completed [facility] Tetanus/Diptheria Unknown Completed Un [facility] Vital Signs Vital Name [...] 33.64 kg/m2 Ayleen ey Seybold - External Diastolic blood pressure 2023-12-17 20:22:00 [...] Massey ld - External Systolic blood pressure 2023-12-17 20:22:00 118 mm[Hg] Di Massey ld - External Systolic blood pressure 2022-03-27 19:29:00 122 mm[Hg] [facility] Diastolic blood pressure 2022-03-27 19:29:00 80 mm[Hg] [facility] Heart rate 2022-03-27 19:29:00 105 /min [facility] Body height 2022-03-27 19:29:00 162.6 cm [facility] Body weight 2022-03-27 19:29:00 87.317 kg [facility] BMI 2022-03-27 19:29:00 33.04 kg/m2 [facility] Encounters Start Date/Time End Date/Time Encounter Type Admission Type Attending Clinicians Care Facility Care Department Encounter ID Source 2021-09-24 10:31:27 Outpatient [facility] [id number] [facility] 2021-09-24 09:02:29 Outpatient [facility] [id number] [facility] 2021-09-24 06:47:18 Emergency X [facility] [id number] [facility] 2021-09-24 06:38:20 Outpatient [facility] [id number] [facility] 2021-09-24 05:25:21 Outpatient [facility] [id number] [facility] 2021-09-24 04:28:40 Outpatient [facility] [id number] [facility] 2021-09-24 04:28:31 Emergency [facility] [id number] [facility] 2021-09-24 01:10:45 Outpatient [facility] [id number] [facility] 2021-09-23 21:07:50 Emergency [facility] [id number] [facility] 2021-09-23 07:29:02 Emergency [facility] [id number] [facility] 2021-09-23 06:08:13 [facility] [id number] [facility] 2021-09-22 23:31:44 [facility] [id number] [facility] 2021-09-22 23:30:48 [facility] [id number] [facility] 2021-09-22 22:58:12 Emergency [facility] MDMB [id number] [facility] 2021-09-22 21:53:49 Outpatient [facility] [id number] [facility] 2021-09-22 21:28:28 [facility] [id number] [facility] 2021-09-22 20:56:44 Emergency [facility] [id number] [facility] 2025-02-19 00:00:00 2025-02-19 00:00:00 Outpatient MD DI VÁSQUEZ [id number] [facility] 2025-02-18 00:00:00 2025-02-18 00:00:00 Outpatient DI KWOK [id number] Di aretha 2025-02-17 15:00:00 2025-02-17 15:00:00 Outpatient FERNY ARTEAGA [id number] [facility] 2024-10-23 00:00:00 2024-10-23 00:00:00 Outpatient MD DI VÁSQUEZ [id number] Di aretha 2024-09-18 13:00:00 2024-09-18 13:00:00 Outpatient LABJanet KWOK [id number] Di aretha 2024-09-18 12:00:00 2024-09-18 12:00:00 Outpatient [facility] WOLFF [id number] [facility] 2024-09-10 00:00:00 2024-09-10 00:00:00 Outpatient MARKO SCOTT [id number] Di are[facility] 2024-09-02 00:00:00 2024-09-02 00:00:00 Outpatient MD DI VÁSQUEZ [id number] [facility] 2024-08-31 00:00:00 2024-08-31 00:00:00 Outpatient MARKO SCOTT DI KWOK [id number] [facility] 2024-08-26 13:00:00 2024-08-26 13:00:00 Outpatient MARKO SCOTT DI KWOK [id number] [facility] 2024-08-17 00:00:00 2024-08-17 00:00:00 Outpatient SONIA MARKO KWOK [id number] [facility] 2024-08-13 11:00:00 2024-08-13 11:00:00 Outpatient EVELIA SCOTTGricelda KWOK [id number] [facility] 2024-07-12 00:00:00 2024-07-12 00:00:00 Outpatient [facility] SCOTT [id number] [facility]-10 00:00:00 2024-07-10 00:00:00 Outpatient MARKO SCOTT [facility] [id number] [facility] 2024-07-09 10:45:00 2024-07-09 10:45:00 Outpatient LAB90 DI KWOK [id number] [facility] 2024-07-09 10:00:00 2024-07-09 10:00:00 Outpatient MARKO SCOTT [facility] [id number] [facility] 2024-07-07 10:15:00 2024-07-07 10:15:00 Outpatient RADHA LEDESMA [facility] [id number] [facility] 2024-07-01 00:00:00 2024-07-01 16:22:57 Telephone Graciela Burks [facility] DRESS [facility] [id number] [facility] 2024-03-04 15:30:00 2024-03-04 15:30:00 Outpatient RAMIREZ, BURUNDIAN DI DI [id number] Di Seybold 2024-02-25 00:00:00 2024-02-25 00:00:00 Outpatient RAMIREZ, BURUNDIAN DI KWOK [id number] Di Seybold 2024-02-22 00:00:00 2024-02-22 00:00:00 Outpatient LEON, NOEL DI KWOK [id number] Di Sey[facility] 2024-02-20 12:30:00 2024-02-20 12:30:00 Outpatient NEW, VESNA WKOK DI [id number] Di Seybold 2024-02-18 07:45:00 2024-02-18 07:45:00 Outpatient RAMIREZ, BURUNDIAN DI KWOK [id number] Di Seybold 2024-02-18 00:00:00 2024-02-18 00:00:00 Outpatient RAMIREZ, BURUNDIAN DI KWOK [id number] Di Seybold 2024-02-18 00:00:00 2024-02-18 00:00:00 Outpatient RAMIREZ, BURUNDIAN DI KWOK [id number] Di Seybold 2024-02-11 13:05:00 2024-02-11 13:05:00 Outpatient LAB90 ID KWOK [id number] Di Seybold 2024-02-11 13:00:00 2024-02-11 13:00:00 Outpatient NEW, VESNA DI KWOK [id number] Di Seybold 2024-02-11 00:00:00 2024-02-11 00:00:00 Outpatient RAMIREZ, BURUNDIAN DI KWOK [id number] Di Seybold 2024-02-10 12:30:00 2024-02-10 12:30:00 Outpatient NEW, VESNA DI KWOK [id number] Di Seybold 2024-02-06 00:00:00 2024-02-06 00:00:00 Outpatient RAMIREZ, BURUNDIAN DI KWOK [id number] Di Seybold 2024-02-06 00:00:00 2024-02-06 00:00:00 Outpatient DI KWOK [id number] Di Seybold 2024-01-29 15:15:00 2024-01-29 15:15:00 Outpatient RAMIREZYUN Vergara [id number] [facility] 2024-01-23 15:20:00 2024-01-23 15:20:00 [facility]WOK [id number] [facility] 2024-01-23 00:00:00 2024-01-23 00:00:00 Outpatient RAMIREZYUN Vergara [id number] [facility] 2024-01-23 00:00:00 2024-01-23 00:00:00 Outpatient RAMIREZYUN Vergara [id number] [facility] 2024-01-21 00:00:00 2024-01-21 00:00:00 Outpatient RAMIREZYUN [facility]ergara [id number] [facility] 2024-01-01 15:45:00 2024-01-01 15:45:00 Outpatient RAMIREZYUN Vergara [id number] [facility] 2023-12-26 00:00:00 2023-12-26 00:00:00 Outpatient AMILCAR FIELD [id number] [facility] 2023-12-17 14:30:00 2023-12-17 14:30:00 Outpatient AMILCAR FIELD [id number] [facility] 2023-02-07 16:31:26 2023-02-07 16:31:26 Outpatient [facility] [id number] José Luis Britton 2022-03-28 00:00:00 2022-03-28 00:00:00 Telephone Charles James [facility] [id number] [facility] 2022-03-27 14:30:00 2022-03-27 23:59:00 Outpatient R CHARLES JAMES [facility] [id number] [facility] 2022-03-27 14:30:00 2022-03-27 15:00:00 Office Visit Ember Franks [facility] [id number] [facility] 2022-03-27 14:30:00 2022-03-27 14:30:00 Outpatient R EMBER FRANKS [facility] [id number] [facility] 2022-03-27 00:00:00 2022-03-27 00:00:00 Orders Only Doctor Unassigned, Crest [facility] [id number] [facility] 2021-05-10 14:30:00 2021-05-10 14:30:00 Outpatient CORNELIUS HERNANDEZ [facility] [id number] [facility] 2021-03-22 13:46:41 2021-03-22 14:24:31 Routine Visit Cornelius Zavaleta [facility] DRESS [facility] [id number] 2021-03-22 14:00:00 2021-03-22 14:00:00 Outpatient CORNELIUS HERNANDEZ [facility] [id number] [facility] 2021-03-06 11:00:00 2021-03-06 11:00:00 Outpatient DAVE MITCHELL [facility] [id number] [facility] 2021-03-01 12:45:00 2021-03-01 12:45:00 Outpatient CORNELIUS HERNANDEZ [facility] [id number] [facility] 2021-02-19 15:41:00 2021-02-19 15:41:00 Outpatient CORNELIUS ARAMBULA [facility] JOANN [id number] [facility] 2021-02-15 14:30:00 2021-02-15 14:30:00 Outpatient CORNELIUS HERNANDEZ [facility] [id number] [facility] 2021-02-01 15:15:00 2021-02-01 15:15:00 Outpatient CORNELIUS HERNANDEZ [facility] [id number] [facility] 2021-01-18 13:45:00 2021-01-18 13:45:00 Outpatient CORNELIUS HERNANDEZ [facility] [id number] [facility] 2021-01-06 09:45:00 2021-01-06 09:45:00 Outpatient CORNELIUS HERNANDEZ [facility] [id number] [facility] 2020-12-23 11:00:00 2020-12-23 11:00:00 Outpatient R BRITTMARITZA GRACIELA [facility] [id number] [facility] 2020-12-20 10:45:00 2020-12-20 10:45:00 Outpatient R BRITTMARITZAGRACIELA [facility] [id number] [facility] 2020-12-20 09:45:00 2020-12-20 09:45:00 Outpatient R CORNELIUS ZAVALETA [facility] [id number] [facility] 2020-12-13 14:15:00 2020-12-13 14:15:00 Outpatient JAMAAL MCCORMICK [facility] [id number] [facility] 2020-11-29 14:30:00 2020-11-29 14:30:00 Outpatient R [facility] [id number] [facility] 2020-11-22 14:00:00 2020-11-22 14:00:00 Outpatient R SHELLIESMITH GRACIELA [facility] [id number] [facility] 2020-11-15 13:00:00 2020-11-15 13:00:00 Outpatient P CHRISTINA GOMEZ [facility] [id number] [facility] 2020-11-08 15:00:00 2020-11-08 15:00:00 Outpatient P PENNYBARBYEDYTA MASON [facility] [id number] [facility] 2020-10-31 15:15:00 2020-10-31 15:15:00 Outpatient P DARWINSTEVE DARWINSTEVE [facility] [id number] [facility] 2020-10-24 13:45:00 2020-10-24 13:45:00 Outpatient R GRACIELA BURKS [facility] [id number] [facility] 2020-10-14 00:00:00 2020-10-14 00:00:00 Case Management [place] Laura Mcdermott [facility] [id number] [facility] 2020-10-06 12:45:00 2020-10-06 12:45:00 Outpatient R CORNELIUS ZAVALETA [facility] [id number] [facility] 2020-09-08 10:45:00 2020-09-08 10:45:00 Outpatient R CORNELIUS ZAVALETA [facility] [id number] [facility] 2020-08-31 12:45:00 2020-08-31 12:45:00 Outpatient R CORNELIUS ZAVALETA [facility] [id number] [facility] 2020-08-24 13:30:00 2020-08-24 13:30:00 Outpatient P [facility] [id number] [facility] 2020-08-03 12:45:00 2020-08-03 12:45:00 Outpatient R CORNELIUS ZAVALETA [facility] [id number] [facility] 2020-07-12 14:15:00 2020-07-12 14:15:00 Outpatient R CORNELIUS ZAVALETA [facility] [id number] [facility] 2020-03-21 15:00:00 2020-03-21 15:00:00 Outpatient CORNELIUS HERNANDEZ [facility] [id number] [facility] Notes Date/Time Note Provider Source 2025-02-17 14:54:22 Chief Complaint Patient presents with ER F/U Urgent care for muscle strain Nya Erickson LVN [facility] 2024-07-09 09:41:35 Chief Complaint Patient presents with Physical Patient is fasting. No other issues to discuss Aurora Hartley MA II T [facility] 2024-07-01 16:18:05 Spoke with patient and she had Student [employer] O and we are not in network with her plan. [facility] 2024-07-01 13:56:34 Suraj Fuentes is a 33 year old female calling requesting to talk with an nurse having problems with an vagina lip was swollen x this morning. Please contact patient at [phone] (home) Raya Sandoval [facility] 2023-12-17 14:25:16 Follow-up Hospitalization (Hospital follow up for umbilical hernia) Nya Erickson LVN [facility]
[2025-02-21] MEDS ORDERED: METHYLPREDNISOLONE 125 MG INJ ONE (22:50)
[2025-02-21] MEDS ORDERED: DIPHENHYDRAMINE 25 MG TAB/CAP ONE (22:51)
--- NOTE | 2025-02-21 23:01 | EDPHYS ---
Physician Documentation [facility] Name: Suraj Courtney Age: 34 yrs Sex: Female : 1990 Arrival Date: 02/21/2025 Time: 22:31 Bed 14 Private MD: ED Physician Hima Worthy HPI: 02/21 22:49 This 34 yrs old white Female presents to ER via Ambulatory with complaints of Allergic sp4 Reaction. 02/22 05:58 Patient presents with acute mild hives secondary to Bactrim. Patient reports itching to sp4 bilateral ears, chest wall, right left upper arm. 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 - Infectious Disease History:: Denies. - Social history:: Smoking status: Patient denies any tobacco usage or history of. - Family history:: not pertinent. ROS: 02/22 05:58 Constitutional: Negative for fever, chills, and weight loss, positive for hives and sp4 itching All other systems are negative, Exam: 05:58 Constitutional: This is a well developed, well nourished patient who is awake, alert, sp4 and in no acute distress. Head/Face: Normocephalic, atraumatic. Eyes: Pupils equal round and reactive to light, extra-ocular motions intact. Lids and lashes normal. Conjunctiva and sclera are not injected. Cornea within normal limits. Periorbital areas with no swelling, redness, or edema. ENT: Nares patent. No nasal discharge, no septal abnormalities noted. Tympanic membranes are normal and external auditory canals are clear. Oropharynx with no redness, swelling, or masses, exudates, or evidence of obstruction, uvula midline. Mucous membranes moist. Neck: Trachea midline, no thyromegaly or masses palpated, and no cervical lymphadenopathy. Supple, full range of motion without nuchal rigidity, or vertebral point tenderness. Chest/axilla: Normal chest wall appearance and motion. Nontender with no deformity. No lesions are appreciated. Cardiovascular: Regular rate and rhythm with a normal S1 and S2. No gallops, murmurs, or rubs. Normal PMI, no JVD. No pulse deficits. Respiratory: Lungs have equal breath sounds bilaterally, clear to auscultation and percussion. No rales, rhonchi or wheezes noted. No increased work of breathing, no retractions or nasal flaring. Abdomen/GI: Soft, with normal bowel sounds. No distension or tympany. No guarding or rebound. No evidence of tenderness throughout. Back: No spinal tenderness. No costovertebral tenderness. Skin: Warm, dry with normal turgor. Normal color with very mild hives to the anterior chest wall. MS/ Extremity: Pulses equal, no cyanosis. Neurovascular intact. Full, normal range of motion. Neuro: Awake and alert, GCS 15, oriented to person, place, time, and situation. Cranial nerves II-XII grossly intact. Motor strength 5/5 in all extremities. Sensory grossly intact. Psych: Awake, alert, with orientation to person, place and time. Behavior, mood, and affect are within normal limits Vital Signs: 02/21 22:41 BP 143 / 86; Pulse 90; Resp 18; Temp 98.6; Pulse Ox 98% ; Weight 84.37 kg; Height 5 ft. bm8 4 in. ; Pain 7/10; 22:41 Body Mass Index 31.93 (84.37 kg, 162.56 cm) bm8 22:41 Pain Scale: Adult bm8 [place] Coma Score: 02/22 05:58 Eye Response: spontaneous(4). Motor Response: obeys commands(6). Verbal Response: sp4 oriented(5). Total: 15. MDM: 02/21 23:01 Medical Screening Exam initiated sp4 02/22 05:58 Differential diagnosis: angioedema, Arrhythmias bronchospasm, urticaria. Data reviewed: sp4 vital signs, nurses notes, old medical records. ED course: Patient stable for discharge home. Advised to discontinue Bactrim.. Administered Medications: 02/21 23:06 Drug: diphenhydrAMINE IVP 25 mg IVP once Route: IVP; Site: right antecubital; rg5 23:25 Follow up: Response: No adverse reaction rg5 23:06 Drug: predniSONE PO 60 mg PO once Route: PO; rg5 23:25 Follow up: Response: No adverse reaction rg5 Disposition Summary: 02/21/25 23:01 Discharge Ordered Notes: Location: Home sp4 Problem: new sp4 Symptoms: have improved sp4 Condition: Stable sp4 Diagnosis - Acute allergic hives, acute allergic reaction to trimethoprim/sulfamethoxazole sp4 Followup: sp4 - With: Private Physician - When: As needed - Reason: Recheck today's complaints Discharge Instructions: - Discharge Summary Sheet sp4 - Hives, Hntw-ae-Hhez sp4 Forms: - Patient Portal Instructions sp4 Prescriptions: - Benadryl 25 mg Oral capsule - take 1 capsule ORAL route every 6 hours As needed PRN itching; 50 tablet; sp4 Refills: 0, Product Selection Permitted - Prednisone 20 mg Oral Tablet - take 2 tablets ORAL route once daily for 5 days; 10 tablet; Refills: 0, Product sp4 Selection Permitted Signatures: Hima Worthy MD MD sp4 Elvin Chu RN RN bm8 Medardo Ying RN RN rg5
--- NOTE | 2025-02-21 23:01 | ER ---
Nurse's Notes [facility] Name: Suraj Courtney Age: 34 yrs Sex: Female : 1990 Arrival Date: 02/21/2025 Time: 22:31 Bed 14 Private MD: Diagnosis: Acute allergic hives, acute allergic reaction to trimethoprim/sulfamethoxazole Presentation: 02/21 22:41 Chief complaint: Patient states: I have been itching since i took bactrim. Coronavirus bm8 screen: Vaccine status: At this time, the client does not indicate any symptoms associated with coronavirus-19. Ebola Screen: Patient negative for fever greater than or equal to 101.5 degrees Fahrenheit, and additional compatible Ebola Virus Disease symptoms Patient denies exposure to infectious person. Patient denies travel to an Ebola-affected area in the 21 days before illness onset. No symptoms or risks identified at this time. Onset: The symptoms/episode began/occurred acutely. Anaphylaxis evaluation, no signs or symptoms of anaphylaxis were noted. Initial Sepsis Screen: Does the patient meet any 2 criteria? No. Patient's initial sepsis screen is negative. Does the patient have a suspected source of infection? No. Patient's initial sepsis screen is negative. Risk Assessment: Do you want to hurt yourself or someone else? Patient reports no desire to harm self or others. Onset of symptoms was February 21, 2025 at 20:30. 22:41 Method Of Arrival: Ambulatory bm8 22:41 Acuity: SHAW 4 bm8 Triage Assessment: 22:43 General: Appears in no apparent distress. comfortable, Behavior is calm, cooperative, bm8 appropriate for age. Pain: Complains of pain in "itching all over" Pain currently is 7 out of 10 on a pain scale. Quality of pain is described as itching. Derm: Rash noted that is urticaria, Reports rash. 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 - Infectious Disease History:: Denies. - Social history:: Smoking status: Patient denies any tobacco usage or history of. - Family history:: not pertinent. Screenin:56 [facility] ED Fall Risk Assessment (Adult) History of falling in the last 3 months, rg5 including since admission No falls in past 3 months (0 pts) Confusion or Disorientation No (0 pts) Intoxicated or Sedated No (0 pts) Impaired Gait No (0 pts) Mobility Assist Device Used No (0 pt) Altered Elimination No (0 pt) Score/Fall Risk Level 0 - 2 = Low Risk Oriented to surroundings, Maintained a safe environment. Abuse screen: Denies threats or abuse. Nutritional screening: No deficits noted. Tuberculosis screening: No symptoms or risk factors identified. Assessment: 22:56 Reassessment: Patient and/or family updated on plan of care and expected duration. Pain rg5 level reassessed. Patient is alert, oriented x 3, equal unlabored respirations, skin warm/dry/pink. General: Appears in no apparent distress. comfortable, Behavior is calm, cooperative, appropriate for age. Pain: Denies pain. Neuro: Level of Consciousness is awake, alert, obeys commands, Oriented to person, place, time, situation. Cardiovascular: No deficits noted. Patient's skin is warm and dry. Respiratory: Airway is patent Trachea midline Respiratory effort is even, unlabored, Breath sounds are clear. GI: No signs and/or symptoms were reported involving the gastrointestinal system. : No signs and/or symptoms were reported regarding the genitourinary system. EENT: No deficits noted. Derm: Reports itching, since all over the body. Musculoskeletal: Circulation, motion, and sensation intact. Range of motion:. Vital Signs: 22:41 BP 143 / 86; Pulse 90; Resp 18; Temp 98.6; Pulse Ox 98% ; Weight 84.37 kg; Height 5 ft. bm8 4 in. ; Pain 7/10; 22:41 Body Mass Index 31.93 (84.37 kg, 162.56 cm) bm8 22:41 Pain Scale: Adult bm8 [place] Coma Score: 02/22 05:58 Eye Response: spontaneous(4). Motor Response: obeys commands(6). Verbal Response: sp4 oriented(5). Total: 15. ED Course: 02/21 22:34 Patient arrived in ED. gm2 22:43 Triage completed. bm8 22:43 Arm band placed on left wrist. bm8 22:49 Hima Worthy MD is Attending Physician. sp4 22:50 Medardo Ying, RN is Primary Nurse. rg5 22:56 Patient has correct armband on for positive identification. Door closed. Noise rg5 minimized. 22:56 No provider procedures requiring assistance completed. Inserted saline lock: 20 gauge rg5 in right antecubital area, using aseptic technique. Flushed with 10 mL NS. 23:08 IV discontinued, bleeding controlled, No redness/swelling at site. Pressure dressing rg5 applied. 23:09 Provided Education on: post er care done. rg5 23:17 Removal of peripheral IV. Catheter intact, dressing applied. td1 Administered Medications: 23:06 Drug: diphenhydrAMINE IVP 25 mg IVP once Route: IVP; Site: right antecubital; rg5 23:25 Follow up: Response: No adverse reaction rg5 23:06 Drug: predniSONE PO 60 mg PO once Route: PO; rg5 23:25 Follow up: Response: No adverse reaction rg5 Medication: 22:56 VIS not applicable for this client. rg5 Outcome: 23:01 Discharge ordered by . sp4 23:08 Discharged to home ambulatory, rg5 23:08 Condition: stable 23:08 Discharge instructions given to patient, family, Instructed on discharge instructions, follow up and referral plans. Demonstrated understanding of instructions, follow-up care, 23:25 Patient left the ED. rg5 Signatures: Hima Worthy MD MD sp4 Katrina Breaux gm2 Elvin Chu RN RN bm8 Medardo Ying, RN RN rg5 Kang Muniz td1 Corrections: (The following items were deleted from the chart) 22:59 22:56 Inserted saline lock: 20 gauge in right antecubital area, using aseptic rg5 technique. rg5
[2025-02-21] MEDS ORDERED: DIPHENHYDRAMINE 50 MG/ML VIAL ONE (23:02)
[2025-02-21] MEDS ORDERED: predniSONE 20 MG TAB ONE (23:02)
[2025-02-21 23:32] VITALS: BP 143/86; TEMP 98.6; O2SAT 98
== END 2025-02-21 23:25 | disposition home or self-care (01) ==
LOC: ER 22:31
DX: L50.0 Allergic urticaria (principal); T36.8X5A Adverse effect of other systemic antibiotics, initial encounter
CPT/HCPCS: 96374; 99284; J7512; J1200; J2919